=== PATIENT | female | born 1985 | race Caucasian/White ===

== ENCOUNTER 2023-01-05 21:00 | Outpatient (REF) | payer OTHER, SELFPAY ==
[2023-01-12 13:07] LABS: Age Gdln ACOG Testing Note (.); HPV Aptima Negative (Negative); IGP, Aptima HPV, rfx 16/18,45 Note (.)
== END 2023-01-05 21:01 | disposition home or self-care (01) ==
LOC: LAB 21:00
PROVIDERS: Visit Provider Obstetrics & Gynecology
DX: Z01.419 Encounter for gynecological examination (general) (routine) without abnormal findings (principal)
CPT/HCPCS: 87624; G0145

== ENCOUNTER 2023-02-14 09:24 | Outpatient (OUT) | payer OTHER, SELFPAY ==
[2023-02-14 10:33] LABS: HCG Quantitative 509 mIU/mL
== END 2023-02-14 09:25 | disposition home or self-care (01) ==
PROVIDERS: Visit Provider Obstetrics & Gynecology
DX: N92.6 Irregular menstruation, unspecified (principal)
CPT/HCPCS: 36415; 84702

== ENCOUNTER 2023-03-13 10:24 | Outpatient (OUT) | payer OTHER, SELFPAY ==
--- NOTE | 2023-03-13 10:27 | US_ITS ---
[address] [address] Patient Name: OSCAR MELO MRN: [id number] date: 1985 Sex: F Assigned Patient Location: US Current Patient Location: Accession/Order Number: [id number] Exam Date: 03/13/2023 10:28 Report Date: 03/14/2023 17:41 At the request of: SUKHJINDER WIN Procedure: US OB transvaginal EXAMINATION: US OB transvaginal HISTORY: MISSED MENSES COMPARISON: No relevant comparison available. FINDINGS: Cuenca intrauterine gestation Heart rate: 165 beats minute Gestational sac: 3.53 cm, 8 weeks 5 days CRL: 1.55 cm, 8 weeks 0 days Yolk sac: 3.1 mm The uterus is normal, retroverted, retroflexed The ovaries are normal in appearance Cervix: Closed, 4.4 cm Clinical age: 9 weeks 0 days Clinical FUENTES: 10/16/2023 Ultrasound age: 8 weeks 0 days Ultrasound FUENTES: 10/23/2023 US/US OB transvaginal IMPRESSION: Viable cuenca intrauterine gestation measuring 9 weeks 0 days Electronically authenticated by: SISI HURD Date: 03/14/2023 17:41
== END 2023-03-13 10:25 | disposition home or self-care (01) ==
LOC: US 10:25
PROVIDERS: Visit Provider Obstetrics & Gynecology
DX: Z34.91 Encounter for supervision of normal pregnancy, unspecified, first trimester (principal); N92.6 Irregular menstruation, unspecified
CPT/HCPCS: 76817

== ENCOUNTER 2023-03-27 11:55 | Outpatient (OUT) | payer OTHER, SELFPAY ==
[2023-03-27 12:27] LABS: Basophils Percent Auto 0.3 % (0.2-2.0); Eosinophils Absolute Auto 0.1 10^3/uL (0.0-0.7); Eosinophils Percent Auto 0.7 % (0.9-7.0); Hematocrit 40.4 % (36.0-48.0); Hemoglobin 13.8 g/dL (12.0-16.0); Immature Granulocytes Abs Auto 0.04 10^3/uL (0.00-0.03); Immature Granulocytes Pct Auto 0.3 % (0.0-0.5); Lymphocytes Absolute Auto 1.6 10^3/uL (1.2-3.8); Lymphocytes Percent Auto 13.6 % (20.5-60.0); Mean Corpuscular HGB Conc 34.2 g/dL (29.9-35.2); Mean Corpuscular Hemoglobin 31.6 pg (26.7-34.0); Mean Corpuscular Volume 92.4 fL (81.0-99.0); Mean Platelet Volume 9.5 fL (9.5-13.5); Monocytes Absolute Auto 0.4 10^3/uL (0.3-0.8); Monocytes Percent Auto 3.6 % (1.7-12.0); Neutrophils Absolute Auto 9.7 10^3/uL (1.4-6.5); Neutrophils Percent Auto 81.5 % (43.0-75.0); Platelet Count 262 10^3/uL (150-450); Red Blood Count 4.37 10^6/uL (4.20-5.40); Red Cell Distribution Width 12.4 % (11.0-15.0)
[2023-03-27 12:43] LABS: BOX Test Sent Out Y
[2023-03-27 12:48] LABS: Estimated Average Glucose 105 mg/dL; Glycohemoglobin A1C 5.3 % (4.5-6.2)
[2023-03-27 13:37] LABS: Thyroid Stimulating Hormone 0.297 uIU/mL (0.358-3.740)
[2023-03-28 07:08] LABS: HBsAg Screen Negative (Negative); HCV Ab Non Reactive (Non Reactive); HIV Ab/p24 Ag Screen Non Reactive (Non Reactive)
== END 2023-03-27 11:56 | disposition home or self-care (01) ==
LOC: LAB 11:55
PROVIDERS: Visit Provider Obstetrics & Gynecology
DX: Z34.80 Encounter for supervision of other normal pregnancy, unspecified trimester (principal); N92.6 Irregular menstruation, unspecified
CPT/HCPCS: 36415; 83036; 84443; 85025; 86592; 86762; 86780; 86803; 86850; 86900; 86901; 87086; 87340; 87389

== ENCOUNTER 2023-04-24 08:31 | Outpatient (OUT) | payer OTHER, SELFPAY | END 2023-04-24 08:32 | disposition home or self-care (01) | LOC: LAB 08:32 | PROVIDERS: Visit Provider Obstetrics & Gynecology | DX: A53.0 Latent syphilis, unspecified as early or late (principal) | CPT/HCPCS: 36415; 86780 ==

== ENCOUNTER 2023-05-04 11:54 | Outpatient (OUT) | payer OTHER, SELFPAY ==
[2023-05-04 13:00] LABS: Thyroid Stimulating Hormone 0.816 uIU/mL (0.358-3.740)
== END 2023-05-04 11:55 | disposition home or self-care (01) ==
LOC: LAB 11:55
PROVIDERS: Visit Provider Obstetrics & Gynecology
DX: O99.280 Endocrine, nutritional and metabolic diseases complicating pregnancy, unspecified trimester (principal); E03.9 Hypothyroidism, unspecified
CPT/HCPCS: 36415; 84443

== ENCOUNTER 2023-05-15 09:52 | Outpatient (OUT) | payer OTHER, SELFPAY ==
[2023-05-17 01:11] LABS: AFP Value 50.3 ng/mL (.); Gestat. Age Based On Ultrasound (.); Insulin Dep Diabetes No (.); Maternal Age At EDD 39.2 yr (.); OSBR Risk 1 IN 5096 (.); Results Report (.)
== END 2023-05-15 09:53 | disposition home or self-care (01) ==
LOC: LAB 09:52
PROVIDERS: Visit Provider Obstetrics & Gynecology
DX: Z34.92 Encounter for supervision of normal pregnancy, unspecified, second trimester (principal)
CPT/HCPCS: 36415; 82105

== ENCOUNTER 2023-07-27 09:17 | Outpatient (OUT) | payer OTHER, SELFPAY ==
--- OUTSIDE RECORDS SUMMARY | 2023-07-27 09:20 | XMS_ITS | CCD ---
Author Name Unknown Address [address] [place] [address] Organization [facility] Care Team Providers Care Medical Practice Assistant Name Role Phone Drew JAMES, Melani Unavailable Yariel GARCIA, Chey Unavailable Yariel GARCIA, Claritza Andrade Unavailable [phone] Melani Russell MD Unavailable Claritza Tamayo RN Unavailable [phone] ALEX URBANO Referring Unavailable KAYCE RICARDO Attending Unavailable KAYCE RICARDO Admitting Unavailable RUSSELL, MELANI Attending Unavailable RUSSELL, MELANI Referring Unavailable RUSSELL, MELANI Referring Unavailable RUSSELL, MELANI Referring Unavailable RUSSELL, MELANI Referring Unavailable Shaun Valentine Unavailable DR SHAUN VALENTINE Admitting Unavailable SERGE, DR KINCAID Attending Unavailable SERGE, DR KINCAID Primary Care Unavailable DR SHAUN VALENTINE Consulting Unavailable Melani Russell MD Unavailable Suzanna Chaidez RN Unavailable Unavailable Primary Care Provider UnavailSUKHJINDER Van Attending Unavailable ADRIANNE MERCHANT Attending Unavailable Allergies Allergy Classification Reported Allergen(s) Allergy Type Date of Onset Reaction(s) Facility (7 sources) Codeine; Translations: [CODEINE] Drug Allergy 1 GI Upset [facility] (7 sources) Adhesive Tape-Silicones; Translations: [ADHESIVE TAPE-SILICONES] Drug Allergy 1 Other: See Comments [facility] (2 sources) Adhesive agent Drug allergy Unknown [facility] Other (2 sources) Codeine Drug Allergy nausea [facility] Other (1 source) Codeine Drug Allergy 1 [facility] (1 source) Desonide Drug Allergy 1 [facility] Medications Current Medications Medication Drug Class(es) Dates Sig (Normalized) Sig (Original) 0.5 ML tirzepatide 10 MG/ML Auto-Injector [Mounjaro] (1 source) Mounjaro 5 MG/0. 5ML as directed Subcutaneous Active 0.5 ML tirzepatide 5 MG/ML Auto-Injector [Mounjaro] (1 source) Mounjaro 2.5 MG/0.5ML as directed Subcutaneous donna for 28 days Active iv contrast (will be provided with radiology test) (1 source) Start: 04-29-2022 End: 04-30-2022 iv contrast (will be provided with radiology test) Indications: History of tumor MRI ABD/PEL Inject, intravenously, once for 1 dose. No IV access, insert saline lock prior to the beginning of sedation, infusion, injection of imaging exam. Discontinue saline lock post exam. If Pt. has a central line or IVAD, may access for administration according to line specific nursing protocol. Once exam is complete flush line and de-access according to line specific nursing protocol in the MR contrast administration guidelines link. 1 Each 0 04/29/2022 04/30/2022 Active Comment on above: MRI ABD/PEL Inject, intravenously, once for 1 dose. No IV access, insert saline lock prior to the beginning of sedation, infusion, injection of imaging exam. Discontinue saline lock post exam. If Pt. has a central line or IVAD, may access for administration according to line specific nursing protocol. Once exam is complete flush line and de-access according to line specific nursing protocol in the MR contrast administration guidelines link. Completed/Discontinued Medications Medication Drug Class(es) Dates Sig (Normalized) Sig (Original) amino acids-whey prot conc,iso (WHEY PROTEIN) 20 gram-140 kcal/39 gram powd (5 sources) amino acids-whey prot conc,iso (WHEY PROTEIN) 20 gram-140 kcal/39 gram powd Take by mouth. 0 Active Comment on above: Take by mouth. Collagenase powd (5 sources) Collagenase powd OTC NUTRITIONAL SUPPLEMENT (5 sources) OTC NUTRITIONAL SUPPLEMENT (2 sources) Not-Taking 25/iron fum/folic/dha (-1 ORAL) (6 sources) 25/iron fum/folic/dha (-1 ORAL) Take by mouth. 0 Active Comment on above: Take by mouth. sulindac 150 mg oral tablet (5 sources) Nonsteroidal Anti-inflammatory Drug Start: 05-17-2021 take 1 tablet by mouth twice daily sulindac (CLINORIL) 150 mg tablet Indications: Desmoid Take 1 tablet by mouth twice daily. 60 tablet 11 05/17/2021 Active Comment on above: Take 1 tablet by jose twice daily. Problems Active Problems Problem Classification Problem Date Documented Da te Episodic/Chronic Allergic reactions (2 sources) Atopic dermatitis; Translations: [Atopic dermatitis, unspecified] Chronic Biliary tract disease (2 sources) Cholesterolosis of gallbladder; Translations: [Cholesterolosis of gallbladder] Episodic Malaise and fatigue (2 sources) Fatigue; Translations: [Other fatigue] Episodic Other gastrointestinal disorders (1 source) Finding of abdominopelvic segment of trunk; Translations: [Intra-abdominal and pelvic swelling, mass and lump, unspecified site] Episodic Other gastrointestinal disorders (1 source) Abdominal mass; Translations: [Intra-abdominal and pelvic swelling, mass and lump, unspecified site] Episodic Other gastrointestinal disorders (3 sources) Intra-abdominal and pelvic swelling, mass and lump, unspecified site; Translations: [Abdominal mass, unspecified abdominal location] Onset: 05-06-2021 Episodic Other nutritional; endocrine; and metabolic disorders (5 sources) Obese class I; Translations: [Obesity, unspecified] Onset: 04-30-2021 04-30-2021 Chronic Other skin disorders (1 source) Nonscarring hair loss, unspecified Episodic Residual codes; unclassified (1 source) H/O: neoplasm; Translations: [Personal history of other specified conditions] Episodic Past or Other Problems Problem Classification Problem Date Documented Da te Episodic/Chronic Neoplasms of unspecified nature or uncertain behavior (7 sources) Abdominal fibromatosis; 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 of uncertain behavior of connective and other soft tissue] Onset: 04-26-2021 04-30-2021 Episodic Other circulatory disease (1 source) Other specified symptoms and signs involving the circulatory and respiratory systems; Translations: [Suspected pulmonary embolism] Onset: 04-30-2021 Episodic Residual codes; unclassified (1 source) Family history of carrier of genetic disease; Translations: [Family history of BRCA1 gene positive] Onset: 05-07-2021 Episodic Results Test Name Value Interpretation Reference Range Facility CBC AUTO DIFFon 10-27-2022 BASO # 0.1 103/ul Normal 0.0-0.1 [facility] Comment on above: Performed By: #### C BC #### [facility] [address] [place] [address] Dr. Rancho Cobos Basophils/100 WBC (Bld) 0.9 % Normal 0.2-2.0 [facility] Comment on above: Performed By: #### C BC #### [facility] [address] [place] [address] Dr. Rancho Cobos EO # 0.1 103/ul Normal 0.0-0.7 [facility] Comment on above: Performed By: #### C BC #### [facility] [address] [place] [address] Dr. Rancho Cobos Eosinophils/100 WBC (Bld) 1.4 % Normal 0.9-7.0 [facility] Comment on above: Performed By: #### C BC #### [facility] [address] [place] [address] Dr. Rancho Cobos Erythrocyte distribution width (RBC) [Ratio] 11.8 % Normal 11.0-15.0 [facility] Comment on above: Performed By: #### C BC #### [facility] [address] [place] [address] Dr. Rancho Cobos Hematocrit (Bld) [Volume fraction] 38.5 % Normal 36.0-48.0 [facility] Comment on above: Performed By: #### C BC #### [facility] [address] [place] [address] Dr. Rancho Cobos Hemoglobin (Bld) [Mass/Vol] 13.3 g/dL Normal 12.0-16.0 [facility] Comment on above: Performed By: #### C BC #### [facility] [address] [place] [address] Dr. Rancho Cobos IG # 0.01 10e3/ul Normal 0.00-0.03 [facility] Comment on above: Performed By: #### C BC #### [facility] [address] [place] [address] Dr. Rancho Cobos IG % 0.2 % Normal 0.0-0.5 [facility] Comment on above: Performed By: #### C BC #### [facility] [address] [place] [address] Dr. Rancho Cobos LYMPH # 1.7 103/ul Normal 1.2-3.8 [facility] Comment on above: Performed By: #### C BC #### [facility] [address] [place] [address] Dr. Rancho Cobos Lymphocytes/100 WBC (Bld) 31.2 % Normal 20.5-60.0 [facility] Comment on above: Performed By: #### C BC #### [facility] [address] [place] [address] Dr. Rancho Cobos MANUAL DIFF REQ NO Normal [facility] Comment on above: Performed By: #### C BC #### [facility] [address] [place] [address] Dr. Rancho Cobos MCH (RBC) [Entitic mass] 31.9 pg Normal 26.7-34.0 [facility] Comment on above: Performed By: #### C BC #### [facility] [address] [place] [address] Dr. Rancho Cobos MCHC (RBC) [Mass/Vol] 34.5 g/dL Normal 29.9-35.2 [facility] Comment on above: Performed By: #### C BC #### [facility] [address] [place] [address] Dr. Rancho Cobos MCV (RBC) [Entitic vol] 92.3 fL Normal 81.0-99.0 [facility] Comment on above: Performed By: #### C BC #### [facility] [address] [place] [address] Dr. Rancho Cobos MONO # 0.3 103/ul Normal 0.3-0.8 [facility] Comment on above: Performed By: #### C BC #### [facility] [address] [address] [address] Rancho Cobos Monocytes/100 WBC (Bld) 5.2 % Normal 1.7-12.0 [facility] Comment on above: Performed By: #### C BC #### [facility] [address] [address] [address] Rancho Cobos NEUT # 3.4 103/ul Normal 1.4-6.5 [facility] Comment on above: Performed By: #### C BC #### [facility] [address] [address] [address] Rancho Cobos Neutrophils/100 WBC (Bld) 61.1 % Normal 43.0-75.0 [facility] Comment on above: Performed By: #### C BC #### [facility] [address] [address] [address] Rancho Cobos Platelet mean volume (Bld) [Entitic vol] 9.4 fL Critically low 9.5-13.5 [facility] Comment on above: Performed By: #### C BC #### [facility] [address] [address] [address] Rancho Cobos PLT 261 103/ul Normal 150-450 [facility] Comment on above: Performed By: #### C BC #### [facility] [address] [address] [address] Rancho Cobos RBC 4.17 106/ul Critically low 4.20-5.40 [facility] Comment on above: Performed By: #### C BC #### [facility] [address] [address] [address] Rancho Cobos WBC 5.6 103/ul Normal 4.0-11.0 [facility] Comment on above: Performed By: #### C BC #### [facility] [address] [address] [address] Rancho Cobos LIPID PROFILEon 10-27-2022 CHOL-HDL RATIO NORM SEE BELOW Normal [facility] Comment on above: Result Comment: 3.3 - 4.4 LOW RISK 4.4 - 7.1 AVERAGE RISK 7.1 - 11.0 MODERATE RISK >11.0 HIGH RISK Performed By: #### C MP, LIPID, TSH #### [facility] [address] [address] [address] Rancho Cobos Cholesterol [Mass/Vol] 162 mg/dL Normal <=200 [facility] Comment on above: Performed By: #### C MP, LIPID, TSH #### [facility] [address] [address] [address] Rancho Cobos Cholesterol in HDL [Mass/Vol] 56 mg/dL Normal 40-60 [facility] Comment on above: Performed By: #### C MP, LIPID, TSH #### [facility] [address] [address] [address] Rancho Cobos Cholesterol in LDL [Mass/Vol] 97.0 mg/dL Normal [facility] Comment on above: Performed By: #### C MP, LIPID, TSH #### [facility] [address] [address] [address] Rancho Cobos Cholesterol.total/ Cholesterol in HDL [Mass ratio] 2.9 {ratio} Normal [facility] Comment on above: Performed By: #### C MP, LIPID, TSH #### [facility] [address] [address] [address] Rancho Cobos HDL NORMAL > or = 60 mg/dl - LO W CARDIOVASCULAR RISK <40 mg/dl - HIGH CARDIOVASCULAR RISK Normal [facility] Comment on above: Performed By: #### C MP, LIPID, TSH #### [facility] [address] [place] [address] Dr. Rancho Cobos LDL CALC NORMAL SEE BELOW Normal [facility] Comment on above: Result Comment: <100 mg/dl OPTIMAL 100 - 129 mg/dl NEAR OR ABOVE OPTIMAL 130 - 159 mg/dl BORDERLINE HIGH 160 - 189 mg/dl HIGH >190 mg/dl VERY HIGH Performed By: #### C MP, LIPID, TSH #### [facility] [address] [address] [address] Rancho Cobos Triglyceride [Mass/Vol] 45 mg/dL Normal <=150 [facility] Comment on above: Performed By: #### C MP, LIPID, TSH #### [facility] [address] [address] [address] Rancho Cobos VLDL CALC 9.0 mg/dL Normal [facility] Comment on above: Performed By: #### C MP, LIPID, TSH #### [facility] [address] [address] [address] Rancho Cobos PROF 14(COMP METB)on 023 Albumin [Mass/Vol] 4.0 g/dL Normal 3.4-5.0 [facility] Comment on above: Performed By: #### C MP, LIPID, TSH #### [facility] [address] [place] [address] Dr. Rancho Cobos Albumin/Globulin [Mass ratio] 1.2 {ratio} Normal [facility] Comment on above: Performed By: #### C MP, LIPID, TSH #### [facility] [address] [place] [address] Dr. Rancho Cobos ALP [Catalytic activity/Vol] 34 U/L Critically low 46-116 [facility] Comment on above: Performed By: #### C MP, LIPID, TSH #### [facility] [address] [place] [address] Dr. Rancho Cobos ALT [Catalytic activity/Vol] 24 U/L Normal 14-59 [facility] Comment on above: Performed By: #### C MP, LIPID, TSH #### [facility] [address] [place] [address] Dr. Rancho Cobos Anion gap [Moles/Vol] 12.1 mmol/L Normal [facility] Comment on above: Performed By: #### C MP, LIPID, TSH #### [facility] [address] [place] [address] Dr. Rancho Cobos AST [Catalytic activity/Vol] 17 U/L Normal 15-37 [facility] Comment on above: Performed By: #### C MP, LIPID, TSH #### [facility] [address] [place] [address] Dr. Rancho Cobos Bilirubin [Mass/Vol] 0.5 mg/dL Normal 0.2-1.0 [facility] Comment on above: Performed By: #### C MP, LIPID, TSH #### [facility] [address] [place] [address] Dr. Rancho Cobos Calcium [Mass/Vol] 9.2 mg/dL Normal 8.5-10.1 [facility] Comment on above: Performed By: #### C MP, LIPID, TSH #### [facility] [address] [place] [address] Dr. Rancho Cobos Chloride [Moles/Vol] 107 mmol/L Normal 98-107 [facility] Comment on above: Performed By: #### C MP, LIPID, TSH #### [facility] [address] [place] [address] Dr. Rancho Cobos CO2 [Moles/Vol] 28.5 mmol/L Normal 21.0-32.0 [facility] Comment on above: Performed By: #### C MP, LIPID, TSH #### [facility] [address] [place] [address] Dr. Rancho Cobos Creatinine [Mass/Vol] 0.72 mg/dL Normal 0.55-1.02 [facility] Comment on above: Performed By: #### C MP, LIPID, TSH #### [facility] [address] [place] [address] Dr. Rancho Cobos EGFR-AF FINNISH >60 Normal >=60 [facility] Comment on above: Performed By: #### C MP, LIPID, TSH #### [facility] [address] [place] [address] Dr. Rancho Cobos EGFR-NON AF FINNISH >60 Normal >=60 [facility] Comment on above: Performed By: #### C MP, LIPID, TSH #### [facility] [address] [place] [address] Dr. Rancho Cobos Globulin (S) [Mass/Vol] 3.4 g/dL Normal [facility] Comment on above: Performed By: #### C MP, LIPID, TSH #### [facility] [address] [place] [address] Dr. Rancho Cobos Glucose [Mass/Vol] 92 mg/dL Normal 74-106 [facility] Comment on above: Performed By: #### C MP, LIPID, TSH #### [facility] [address] [place] [address] Dr. Rancho Cobos Potassium [Moles/Vol] 4.6 mmol/L Normal 3.5-5.1 [facility] Comment on above: Performed By: #### C MP, LIPID, TSH #### [facility] [address] [address] [address] Rancho Cobos Protein [Mass/Vol] 7.4 g/dL Normal 6.4-8.2 [facility] Comment on above: Performed By: #### C MP, LIPID, TSH #### [facility] [address] [place] [address] Dr. Rancho Cobos Sodium [Moles/Vol] 143 mmol/L Normal 136-145 [facility] Comment on above: Performed By: #### C MP, LIPID, TSH #### [facility] [address] [place] [address] Dr. Rancho Cobos Urea nitrogen [Mass/Vol] 18.0 mg/dL Normal 7.0-18.0 [facility] Comment on above: Performed By: #### C MP, LIPID, TSH #### [facility] [address] [place] [address] Dr. Rancho Cobos Urea nitrogen/Creatinin e [Mass ratio] 25.0 mg/mg Normal [facility] Comment on above: Performed By: #### C MP, LIPID, TSH #### [facility] [address] [place] [address] Dr. Rancho Cobos TSHon 10-27-2022 TSH 1.005 uIU/mL Normal 0.358-3.740 [facility] Comment on above: Performed By: #### C MP, LIPID, TSH #### [facility] [address] [place] [address] Dr. Rancho Cobos MRI ABDOMEN WO/W IVCONon MRI ABDOMEN WO/W IVCON * * *Final Report* * * DATE OF EXAM: Apr 21 2022 6:39PM Q 0689 - MRI ABDOMEN WO/W IVCON / PROCEDURE REASON: multiple diagnoses * * * * Physician Interpretation * * * * MRI ABDOMEN AND PELVIS WITHOUT AND WITH IV CONTRAST CLINICAL HISTORY: Right abdominal wall desmoid ablation (04/2021) TECHNIQUE: Magnet: 3.0T scanner. Multiplanar MRI with multiple sequences before and after contrast. Contrast: IV: 16 ml of Dotarem COMPARISON: MRA abdomen/pelvis 09/20/2021; CT abdomen/pelvis 04/28/2021; MRI abdomen 02/28/2021 RESULT: Liver: Normal morphology. No steatosis. No suspicious mass. Few stable subcentimeter cysts. Biliary: No bile duct dilation. Normal gallbladder. Spleen: No mass. No splenomegaly. Pancreas: No mass or duct dilation. Adrenals: No mass. Kidneys: No solid or cystic mass. No hydronephrosis. GI: No dilated bowel or wall thickening. Normal appendix. Lymph nodes: No lymphadenopathy. Mesentery/Peritoneum/Re troperitoneum: No ascites or mass. Vasculature: * Abdominal aorta: No aneurysm. * Celiac and SMA: Patent without stenosis. * Portal venous system (SMV, splenic vein, portal vein and branches): Patent. * Hepatic veins: Patent. Pelvis: No mass or ascites. Unremarkable urinary bladder. Functional ovarian cysts. Bones/Soft Tissues: * Procedures changes from RIGHT rectus abdominis muscle ablation with decreased size of well-defined, rim-enhancing 3.8 x 2.6 cm ablation zone (32:85), previously 4.3 x 2.9 cm. This zone consistent fat, muscle and fluid. No restricted diffusion or nodular enhancement to suggest residual/recurrent neoplasm. * L4 vertebral body hemangioma. No suspicious marrow signal abnormality. Lower chest: Unremarkable. Kitchen Stewardess (localizer) images: No additional findings. IMPRESSION: Evolving changes of RIGHT rectus abdominis muscle ablation without local recurrence. No metastatic disease in abdomen or pelvis General Laborer: ANEL Transcribe Date/Time: Apr 22 2022 10:29A Dictated by : LIBRADO JOAQUIN DO This examination was interpreted and the report reviewed and electronically signed by: CANELO EDMONDSON MD on Apr 22 2022 12:49PM EST [id number] Normal [facility] MRI PELVIS WO/W IVCONon 10-0 MRI PELVIS WO/W IVCON * * *Final Report* * * DATE OF EXAM: Apr 21 2022 6:39PM QBM [id number] - MRI PELVIS WO/W IVCON / PROCEDURE REASON: multiple diagnoses * * * * Physician Interpretation * * * * MRI ABDOMEN AND PELVIS WITHOUT AND WITH IV CONTRAST CLINICAL HISTORY: Right abdominal wall desmoid ablation (04/2021) TECHNIQUE: Magnet: 3.0T scanner. Multiplanar MRI with multiple sequences before and after contrast. Contrast: IV: 16 ml of Dotarem COMPARISON: MRA abdomen/pelvis 09/20/2021; CT abdomen/pelvis 04/28/2021; MRI abdomen 02/28/2021 RESULT: Liver: Normal morphology. No steatosis. No suspicious mass. Few stable subcentimeter cysts. Biliary: No bile duct dilation. Normal gallbladder. Spleen: No mass. No splenomegaly. Pancreas: No mass or duct dilation. Adrenals: No mass. Kidneys: No solid or cystic mass. No hydronephrosis. GI: No dilated bowel or wall thickening. Normal appendix. Lymph nodes: No lymphadenopathy. Mesentery/Peritoneum/Re troperitoneum: No ascites or mass. Vasculature: * Abdominal aorta: No aneurysm. * Celiac and SMA: Patent without stenosis. * Portal venous system (SMV, splenic vein, portal vein and branches): Patent. * Hepatic veins: Patent. Pelvis: No mass or ascites. Unremarkable urinary bladder. Functional ovarian cysts. Bones/Soft Tissues: * Procedures changes from RIGHT rectus abdominis muscle ablation with decreased size of well-defined, rim-enhancing 3.8 x 2.6 cm ablation zone (32:85), previously 4.3 x 2.9 cm. This zone consistent fat, muscle and fluid. No restricted diffusion or nodular enhancement to suggest residual/recurrent neoplasm. * L4 vertebral body hemangioma. No suspicious marrow signal abnormality. Lower chest: Unremarkable. Kitchen Stewardess (localizer) images: No additional findings. IMPRESSION: Evolving changes of RIGHT rectus abdominis muscle ablation without local recurrence. No metastatic disease in abdomen or pelvis General Laborer: ANEL Transcribe Date/Time: Apr 22 2022 10:29A Dictated by : LIBRADO JOAQUIN, DO This examination was interpreted and the report reviewed and electronically signed by: CANELO EDMONDSON MD on Apr 22 2022 12:49PM EST [id number] [facility] OSCAR PINEDA ([id number]) 1985 F Date Time Provider Department 10/28/21 MELANI RUSSELL HEMCA3 During your visit today, we recorded the following information about you: Brittany Avendaño [facility] 10/28/2021 10:04 AM Signed Oscar Pineda is calling Melani Russell MD today regarding Care Coordination,calling with questions about with her condition. Patient has been identified by name and birthdate. Duration of symptoms: N/A Requesting response back: call on cell [phone] (home) [phone] (cell) Brittany Avendaño [facility] October 28, 2021 Brittany Banueloss [facility] 10/30/2021 3:25 PM Signed Patient calling stating she has not received a call back, Please call @ [phone] Melani Russell MD 11/19/2021 10:20 AM Signed This has been addressed through an [employer] message. Melain Russell MD, PhD Staff, Hematology and Medical Oncology Allergies As of Date: 10/28/2021 Noted Allergy Reaction CODEINE 02/01/2021 8 - GI Upset ADHESIVE TAPE-SILICONES 02/14/2021 14 - Other: See Comments Comments: Blisters Date Reviewed: 09/27/2021 Reviewed by: Aliya Jean Baptiste RN - Fully Assessed Reason for Visit: Care Coordination [7680] Prescriptions as of 11/19/2021 - sulindac (CLINORIL) 150 mg tablet Take 1 tablet by mouth twice daily. - Collagenase powd - amino acids-whey prot conc,iso (WHEY PROTEIN) 20 gram-140 kcal/39 gram powd Take by mouth. - OTC NUTRITIONAL SUPPLEMENT - 25/iron fum/folic/dha (-1 ORAL) Take by mouth. 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] 04/26/2021 04/30/2021 Desmoid tumor of abdominal wall determined by b*04/26/2021 Acute respiratory insufficiency [R06.89] 04/26/2021 04/30/2021 Acute post-operative pain [G89.18] 04/26/2021 04/30/2021 Air embolus (HCC) [T79.0XXA] 04/27/2021 04/30/2021 Obesity, Class I, BMI 30-34.9 [E66.9] 04/30/2021 Encounter Status:Closed by BRITTANY LIAO on 11/01/21 [facility] CNOVSPon 09-27-2021 CNOVSP Visit (SP) Office (HEMCA4) RAÚLOSCAR Navarro ([id number]) 1985 F Date Time Provider Department 09/27/21 9:00 AM MELANI RUSSELL During your visit today, we recorded the following information about you: Pulse Respiration Blood pressure Weight 65/minute 20/minute 149/67 77.6 kg Melani Russell MD 10/07/2021 12:24 PM Signed [facility] [place] ESTABLISHED PATIENT VISIT PATIENT NAME: Oscar Pineda : 1985 ATTENDING PHYSICIAN: Melani Russell MD DATE OF SERVICE: September 27, 2021 HISTORY OF PRESENT ILLNESS: Oscar Pineda is a 36 year old female with recently diagnosed intraabdominal desmoid tumor. Patient originally noticed abdominal mass in 11/07, MRI done 02/28 showed evidence of 5.6 cm intramuscular mass suggestive of a desmoid tumor. Biopsy on 03/12 consistent with desmoid tumor. Common Hereditary Cancers Panel from 05/09 negative, no history of FAP. Patient first seen by Dr. Russell in clinic on 04/02/21. Patient's case was discussed at the multidisciplinary sarcoma tumor board with a recommendation for consult for consideration of ablation and subsequent sulindac to minimize regrowth of tumor. INTERVAL HISTORY: Patient underwent cryoablation of desmoid tumor on 04/26/21 complicated by air embolism to IVC filter and hepatic veins with trace air in right heart. Pt was managed conservatively with resolution and extubated 04/29. Sulindac started on 05/17/21. MRI A/P on 09/20/21 showed no internal enhancement to suggest residual/viable tumor. Patient reporting 20 pound weight gain since beginning Sulindac this past April. Patient also reports occasional burning sensation at site of cryoablation. Patient also endorses occasional constipation. Patient otherwise denies nausea/vomiting, diarrhea, abdominal pain. REVIEW OF SYSTEMS: Complete 10 system review of systems performed and negative except as stated in the interval history. MEDICATIONS: Current Outpatient Medications Medication Sig - sulindac (CLINORIL) 150 mg tablet Take 1 tablet by mouth twice daily. - Collagenase powd - amino acids-whey prot conc,iso (WHEY PROTEIN) 20 gram-140 kcal/39 gram powd Take by mouth. - OTC NUTRITIONAL SUPPLEMENT - 25/iron fum/folic/dha (-1 ORAL) Take by mouth. No current facility-administered medications for this visit. PHYSICAL EXAMINATION: BP 149/67 Pulse 65 Resp 20 Wt 77.6 kg (171 lb) LMP 04/18/2021 SpO2 100% BMI 30.29 kg/m? Body surface area is 1.86 meters squared. ECOG/Karnofsky Performance Score: 0/100% General: In no acute distress, comfortable HEENT: Normocephalic, EOMI, conjunctiva clear, mucous membranes moist CV: Regular rate and rhythm, no m/r/g Lungs: Non-labored respirations Extremities: No lower extremity edema Skin: No rashes or lesions Neuro: No gross or focal motor deficits, sensation intact GI: 2cm, non-mobile nodule in RLQ LABS: Reviewed IMAGING: MRI Abdomen/Pelvis 09/20/21: Interval ablation of soft tissue mass in the RIGHT rectus abdominis muscle. ?There is rim enhancement around the ablation zone, which measures 4.9 x 2.6 cm (24; 18). ?There is no internal enhancement to suggest residual/viable tumor. 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 - Decision made to discontinue sulindac at this time in light of side effects - Return to clinicn in 6 months for repeat scans Patient seen and discussed with Sarcoma Oncology staff, Dr. Melani Pérez MD Internal Medicine Resident, PGY-1 [facility] 09/27/2021 SOLID TUMOR STAFF: ATTENDING PHYSICIAN NOTE OF PERSONAL INVOLVEMENT IN CARE I have reviewed the note obtained and documented by Dr. Pérez and I personally participated in the garcia components. The following comments revise or confirm relevant garcia components of the note. 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 She had started sulindac to minimize risk for recurrence, however she is having some weight gain due to fluid retention that she is attributing to the sulindac. She is discontinuing the sulindac and this can be readdressed if there is growth of tumor. I anticipate her returning with scans prior to her appointment in 6 months. Melani Russell MD, PhD Staff, Hematology and Medical Oncology Aliya Jean Baptiste RN 09/27/2021 9:03 AM Signed Additional intake questions: Has the patient had fever, nausea, vomiting, diarrhea, constipation, fatigue for > 1 week? Yes, constipation Does the patient have a decreased appetite? No Does patient want to see a Cask Maker? No (yes to any of (more content not included)... Normal [facility] MRI ABDOMEN WO/W IVCONon MRI ABDOMEN WO/W IVCON * * *Final Report* * * DATE OF EXAM: Sep 20 2021 4:30PM QBM [id number] - MRI ABDOMEN WO/W IVCON / PROCEDURE REASON: multiple diagnoses * * * * Physician Interpretation * * * * MRI OF THE ABDOMEN WITHOUT AND WITH CONTRAST: CLINICAL HISTORY: 36-year-old female patient with history of?desmoid of rectus abdominus muscle on the right side. This was treated with?percutaneous ablation.? COMPARISON: 04/28/2021 TECHNIQUE: The study was performed on a Siemens 3 T Skyra scanner using the torso phased array coil. HASTE images were obtained in the axial, sagittal and coronal planes. High resolution 3-D T2 weighted images were then obtained. Next, axial STIR, diffusion weighted and T1 weighted in- and [id number]-[id number]-[id number] images were obtained. Then, using a 3-D GRE T1 weighted sequence, dynamic images were obtained before, during and after the administration of intravenous contrast. 3-D images were post-processed on a dedicated off-line workstation and were reviewed by the interpreting physician. Contrast: IV: 16 ml of Dotarem Oral Contrast: None RESULT: Liver: A few stable subcentimeter liver cysts. Biliary: No bile duct dilation. Gallbladder is unremarkable. Pancreas: No mass or duct dilation. Spleen: No mass. No splenomegaly. Lymph nodes: No abdominal or pelvic lymphadenopathy. Mesentery/Peritoneum: No ascites or mass. Vasculature: The celiac axis and SMA are patent. The portal vein and branches, splenic vein, SMV, and hepatic veins are patent. No aortic or iliac artery aneurysm. Adrenals: No mass. Kidneys: No mass or hydronephrosis. GI tract: No dilation or wall thickening. Pelvis: Uterus and ovaries: No masses. Bilateral physiologic ovarian cysts. Urinary bladder: Unremarkable. Bones/Soft Tissues: Interval ablation of soft tissue mass in the RIGHT rectus abdominis muscle. There is rim enhancement around the ablation zone, which measures 4.9 x 2.6 cm (24; 18). There is no internal enhancement to suggest residual/viable tumor. Hemangioma of L4 vertebral body. Lung Bases: Unremarkable. IMPRESSION: Interval ablation of RIGHT rectus abdominis muscle mass, without evidence for residual/recurrent disease. General Laborer: PSCB Transcribe Date/Time: Sep 20 2021 4:49P Dictated by : CHRIS MILIAN MD This examination was interpreted and the report reviewed and electronically signed by: CHRIS MILIAN MD on Sep 20 2021 4:58PM EST [id number] Normal [facility] MRI PELVIS WO/W IVCONon 03-0 MRI PELVIS WO/W IVCON * * *Final Report* * * DATE OF EXAM: Sep 20 2021 4:30PM [facility] 0742 - MRI PELVIS WO/W IVCON / PROCEDURE REASON: multiple diagnoses * * * * Physician Interpretation * * * * MRI OF THE ABDOMEN WITHOUT AND WITH CONTRAST: CLINICAL HISTORY: 36-year-old female patient with history of?desmoid of rectus abdominus muscle on the right side. This was treated with?percutaneous ablation.? COMPARISON: 04/28/2021 TECHNIQUE: The study was performed on a Siemens 3 T Skyra scanner using the torso phased array coil. HASTE images were obtained in the axial, sagittal and coronal planes. High resolution 3-D T2 weighted images were then obtained. Next, axial STIR, diffusion weighted and T1 weighted in- and [id number]-yu-yyahp images were obtained. Then, using a 3-D GRE T1 weighted sequence, dynamic images were obtained before, during and after the administration of intravenous contrast. 3-D images were post-processed on a dedicated off-line workstation and were reviewed by the interpreting physician. Contrast: IV: 16 ml of Dotarem Oral Contrast: None RESULT: Liver: A few stable subcentimeter liver cysts. Biliary: No bile duct dilation. Gallbladder is unremarkable. Pancreas: No mass or duct dilation. Spleen: No mass. No splenomegaly. Lymph nodes: No abdominal or pelvic lymphadenopathy. Mesentery/Peritoneum: No ascites or mass. Vasculature: The celiac axis and SMA are patent. The portal vein and branches, splenic vein, SMV, and hepatic veins are patent. No aortic or iliac artery aneurysm. Adrenals: No mass. Kidneys: No mass or hydronephrosis. GI tract: No dilation or wall thickening. Pelvis: Uterus and ovaries: No masses. Bilateral physiologic ovarian cysts. Urinary bladder: Unremarkable. Bones/Soft Tissues: Interval ablation of soft tissue mass in the RIGHT rectus abdominis muscle. There is rim enhancement around the ablation zone, which measures 4.9 x 2.6 cm (24; 18). There is no internal enhancement to suggest residual/viable tumor. Hemangioma of L4 vertebral body. Lung Bases: Unremarkable. IMPRESSION: Interval ablation of RIGHT rectus abdominis muscle mass, without evidence for residual/recurrent disease. General Laborer: ANEL Transcribe Date/Time: Sep 20 2021 4:49P Dictated by : CHRIS MILIAN MD This examination was interpreted and the report reviewed and electronically signed by: CHRIS MILIAN MD on Sep 20 2021 4:58PM EST [id number] Normal [facility] CNPAmi 08-09-2021 CNPN Telephone (HEMCA3) OSCAR PINEDA ([id number]) 1985 F Date Time Provider Department 08/09/21 MELANI RUSSELL HEMCA3 During your visit today, we recorded the following information about you: Marva Burciaga Adm 08/09/2021 11:32 AM Signed Oscar Pineda is calling Melani Russell MD today regarding Care Coordination (appointment question). Patient wants to know if Dr. Russell would prefer to see her after her 08/23 MRI. She is scheduled for an OV on 08/16. Patient has been identified by name and birthdate. Duration of symptoms: N/A Requesting response back: call on cell [phone] (home) [phone] (cell) Marva Burciaga Adm August 09, 2021 Chey Tamayo RN 08/09/2021 4:42 PM Signed Returned call to patient and informed her that moving her visit with Dr. Russell after the MRI would be best to establish a plan of care. Patient was appreciative of return call and information. Chey Tamayo RN Cabin Agent August 09, 2021 Allergies As of Date: 08/09/2021 Noted Allergy Reaction CODEINE 02/01/2021 8 - GI Upset ADHESIVE TAPE-SILICONES 02/14/2021 14 - Other: See Comments Comments: Blisters Date Reviewed: 04/30/2021 Reviewed by: Magda Rose RN - Fully Assessed Reason for Visit: Care Coordination [5122] Cmt: appointment question Prescriptions as of 08/09/2021 - sulindac (CLINORIL) 150 mg tablet Take 1 tablet by mouth twice daily. - Collagenase powd - amino acids-whey prot conc,iso (WHEY PROTEIN) 20 gram-140 kcal/39 gram powd Take by mouth. - OTC NUTRITIONAL SUPPLEMENT - 25/iron fum/folic/dha (-1 ORAL) Take by mouth. 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] 04/26/2021 04/30/2021 Desmoid tumor of abdominal wall determined by b*04/26/2021 Acute respiratory insufficiency [R06.89] 04/26/2021 04/30/2021 Acute post-operative pain [G89.18] 04/26/2021 04/30/2021 Air embolus (HCC) [T79.0XXA] 04/27/2021 04/30/2021 Obesity, Class I, BMI 30-34.9 [E66.9] 04/30/2021 Encounter Status:Closed by CLARITZA TAMAYO on 08/09/21 [facility] Nishant 05-22-2021 CNPN Telephone (GMINE) OSCAR PINEDA ([id number]) 1985 F Date Time Provider Department 05/22/21 MELIDA QUINTERO During your visit today, we recorded the following information about you: LANETTE De Leon 05/22/2021 2:32 PM Signed Patient name and was confirmed at initiation of discussion. Oscar Pineda's Common Hereditary Cancers Panel through [employer] was negative for a pathogenic variant. Please see attached letter for further discussion. LANETTE De Leon Licensed, Certified Genetic Counselor Allergies As of Date: 05/22/2021 Noted Allergy Reaction CODEINE 02/01/2021 8 - GI Upset ADHESIVE TAPE-SILICONES 02/14/2021 14 - Other: See Comments Comments: Blisters Date Reviewed: 04/30/2021 Reviewed by: Magda Rose RN - Fully Assessed Reason for Visit: Results [95] Cmt: Genetic Test Results - Negative Prescriptions as of 05/22/2021 - sulindac (CLINORIL) 150 mg tablet Take 1 tablet by mouth twice daily. - Collagenase powd - amino acids-whey prot conc,iso (WHEY PROTEIN) 20 gram-140 kcal/39 gram powd Take by mouth. - OTC NUTRITIONAL SUPPLEMENT - 25/iron fum/folic/dha (-1 ORAL) Take by mouth. 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] 04/26/2021 04/30/2021 Desmoid tumor of abdominal wall determined by b*04/26/2021 Acute respiratory insufficiency [R06.89] 04/26/2021 04/30/2021 Acute post-operative pain [G89.18] 04/26/2021 04/30/2021 Air embolus (HCC) [T79.0XXA] 04/27/2021 04/30/2021 Obesity, Class I, BMI 30-34.9 [E66.9] 04/30/2021 Letter Text Encounter Status:Closed by MELIDA QUINTERO on 05/22/21 [facility] Telephone (HEMCA3) OSCAR PINEDA ([id number]) 1985 F Date Time Provider Department 05/15/21 [facility] your visit today, we recorded the following information about you: Marva Burciaga Adm 05/15/2021 4:25 PM Signed Oscar Pineda is calling Melani Russell MD today regarding Care Coordination. Patient said that they had discussed her starting a new medication. Patient called to follow up that. Patient has been identified by name and birthdate. Duration of symptoms: N/A Requesting response back: call on cell [phone] (home) [phone] (cell) Marva Burciaga Adm May 15, 2021 Melani Russell MD 05/17/2021 4:47 PM Signed I have returned her call and reviewed her hospitalization following her ablation. Script for sulindac sent to her local pharmacy and a smart set was sent for a follow-up MRI of the abdomen and an appointment in 3 months. Melani Russell MD, PhD Staff, Hematology and Medical Oncology Allergies As of Date: 05/15/2021 Noted Allergy Reaction CODEINE 02/01/2021 8 - GI Upset ADHESIVE TAPE-SILICONES 02/14/2021 14 - Other: See Comments Comments: Blisters Date Reviewed: 04/30/2021 Reviewed by: Magda Rose RN - Fully Assessed Reason for Visit: Care Coordination [3491] Prescriptions as of 05/17/2021 - Collagenase powd - amino acids-whey prot conc,iso (WHEY PROTEIN) 20 gram-140 kcal/39 gram powd Take by mouth. - OTC NUTRITIONAL SUPPLEMENT - 25/iron fum/folic/dha (-1 ORAL) Take by mouth. 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] 04/26/2021 04/30/2021 Desmoid tumor of abdominal wall determined by b*04/26/2021 Acute respiratory insufficiency [R06.89] 04/26/2021 04/30/2021 Acute post-operative pain [G89.18] 04/26/2021 04/30/2021 Air embolus (HCC) [T79.0XXA] 04/27/2021 04/30/2021 Obesity, Class I, BMI 30-34.9 [E66.9] 04/30/2021 Encounter Status:Closed by MELANI RUSSELL on 05/17/21 Normal [facility] Molecular Teston 2020 Test Common Hereditary Cancers Panel Normal [facility] Comment on above: Performed By: #### M OL13 ####[facility] [id number] [place] [address] Test Results View results in Scan zahraa Documents link when available. Normal [facility] Comment on above: Performed By: #### M OL13 ####[facility] [id number] [place] [address] Nishant 05-01-2021 CNPN Telephone (GMINE) OSCAR PINEDA ([id number]) 1985 F Date Time Provider Department 05/01/21 MELIDA QUINTERO During your visit today, we recorded the following information about you: Mindy Farley 05/01/2021 11:53 AM Signed I reached out to Oscar Pineda at the request of Melida Quintero to request they bring a copy of their family member's genetic test report to their appointment if available. Referring provider's note indicates family history of BRCA1. Oscar explained that her mother, who was adopted, had been contacted by her sister (patient's aunt) about carrying this gene and that she has a history of breast cancer twice, but otherwise does not have a copy of the report itself. Oscar also explained that the only other information she has regarding her family history is her paternal grandfather passing away from pancreatic cancer at 65, and great aunts/uncles having lung cancer (but were also smokers). I thanked Oscar for this information and reviewed that Melida can still otherwise proceed with the appointment and discussing testing based on the history, but that obtaining copy of report would be helpful if possible. Oscar will try to see if she can get in touch with her aunt and will forward report to if she can. Oscar has my direct contact number for any further questions or concerns. Midny Farley Genetic Counselor Softball Umpire Allergies As of Date: 05/01/2021 Noted Allergy Reaction CODEINE 02/01/2021 8 - GI Upset ADHESIVE TAPE-SILICONES 02/14/2021 14 - Other: See Comments Comments: Blisters Date Reviewed: 04/30/2021 Reviewed by: Magda Rose RN - Fully Assessed Reason for Visit: Appointment [186] Prescriptions as of 05/01/2021 - methylPREDNISolone (MEDROL) 2 mg tablet Take 1 tablet by mouth once daily for 2 doses. - amoxicillin-clavulanic acid (AUGMENTIN) 875-125 mg per tablet Take 1 tablet by mouth twice daily for 3 days. - Collagenase powd - amino acids-whey prot conc,iso (WHEY PROTEIN) 20 gram-140 kcal/39 gram powd Take by mouth. - OTC NUTRITIONAL SUPPLEMENT - 25/iron fum/folic/dha (-1 ORAL) Take by mouth. 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] 04/26/2021 04/30/2021 Desmoid tumor of abdominal wall determined by b*04/26/2021 Acute respiratory insufficiency [R06.89] 04/26/2021 04/30/2021 Acute post-operative pain [G89.18] 04/26/2021 04/30/2021 Air embolus (HCC) [T79.0XXA] 04/27/2021 04/30/2021 Obesity, Class I, BMI 30-34.9 [E66.9] 04/30/2021 Encounter Status:Closed by MINDY FARLEY on 05/01/21 Normal [facility] CBCon 04-30-2021 Absolute nRBC <0.01 Normal <0.01 [facility] Comment on above: Performed By: #### C BC ####[facility] [address] [place], [place] [phone] Erythrocyte distribution width (RBC) [Ratio] 12.0 % Normal 11.5-15.0 [facility] Comment on above: Performed By: #### C BC ####[facility] [address] [place], [place] [phone] Hematocrit (Bld) [Volume fraction] 33.8 % Low 36.0-46.0 [facility] Comment on above: Performed By: #### C BC ####[place] [address], [place] [phone] Hemoglobin (Bld) [Mass/Vol] 11.8 g/dL Normal 11.5-15.5 [facility] Comment on above: Performed By: #### C BC ####[place] [address], [place] [phone] MCH 31.5 pG Normal 26.0-34.0 [facility] Comment on above: Performed By: #### C BC ####[place] [address], [place] [phone] MCHC (RBC) [Mass/Vol] 34.9 g/dL Normal 30.5-36.0 [facility] Comment on above: Performed By: #### C BC ####[place] [address], [place] [phone] MCV (RBC) [Entitic vol] 90.1 fL Normal 80.0-100.0 [facility] Comment on above: Performed By: #### C BC ####[place] [address], [place] [phone] Platelet mean volume (Bld) [Entitic vol] 9.6 fL Normal 9.0-12.7 [facility] Comment on above: Performed By: #### C BC ####[place] [address], [place] [phone] Platelets (Bld) [#/Vol] 182 10*3/uL Normal 150-400 [facility] Comment on above: Performed By: #### C BC ####[place] [address], [place] [phone] RBC (Bld) [#/Vol] 3.75 10*6/uL Low 3.90-5.20 [facility] Comment on above: Performed By: #### C BC ####[place] [address] [place], [place] [phone] WBC (Bld) [#/Vol] 12.88 10*3/uL High 3.70-11.00 [facility] Comment on above: Performed By: #### C BC ####[facility] [address] [place], [place] [phone] CNDSon 04-30-2021 CNDS HNO ID: [id number] Author: Katty Logan APRN.STRAPPER [employer] BUFFER Service: Critical Care Author Type: Nurse Practitioner Type: Discharge Summary Filed: 04/30/2021 1:39 PM Note Text: DISCHARGE SUMMARY PATIENT NAME: Oscar Pineda ADMISSION DATE: 04/26/2021 DISCHARGE DATE: 04/30/2021 ATTENDING: Kayce Ricardo MD Code Status: Not on file Highest Readmission Risk Score: 13 The 30 day readmissions risk score is derived from an internally validated risk model which evaluates patient level characteristics, utilization history, medication orders and lab results up until the day of discharge. Patients with a score of 40 or above are considered highest risk for readmission. Specific patient level drivers will be listed at the bottom of the summary. 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 * Transitions of Care Critical Issues: SPECIALIST FOLLOW-UP: Per Camilla Urbano MD note 04/02 - f/u genetic testing Also please follow up with oncology LABS AND PROCEDURES PENDING AT DISCHARGE: No pending results. HOSPITAL COURSE: Patient presented for elective CT-guided cryoablation of desmoid tumor on 04/26. Per IR note: during cryoablation of desmoid tumor, 90cc air was administered into soft tissue of pneumodissection. CT performed after: air embolus demonstrated in inferior vena cava, hepatic veins, and some of the smaller branches, notably, the inferior epigastric vessels. In the chest, there was only a miniscule amount of air identified with diffuse foci in the right atrium and right ventricle. There was no cardiovascular comprise during the procedure. Patient was electively kept intubated and transferred to SICU. Upon arrival to SICU, patient was hemodynamically stable. Patient was kept in trendelenburg and left lateral position in order to keep the air away from the RV outflow tract. Head CT did not show any acute intra-cranial abnormalities. Cardiovascular medicine was consulted for recommendations. Echocardiogram did not show any right-sided heart strain. A central line was placed for venous access. Patient required propofol, fentanyl, and ketamine infusions for deep sedation in order for patient to tolerate this position and maintain patent airway. Patient was also kept on 100% FiO2. Interventional Radiology was consulted about venous access for aspiration of remaining air; however, the decision was made to manage patient conservatively. CT of chest showed no evidence of air embolism within the systemic veins, right-sided heart chambers, central pulmonary arteries and hepatic veins. CT of abdomen and pelvis showed resolution of intravenous gas. Right-upper quadrant ultrasound showed no residual intravenous air in hepatic vasculature. Patient developed fevers post-operatively, sputum culture and blood cultures were sent (both preliminary no growth), and patient was started on empiric zosyn. Patient was successfully extubated on 04/29. Patient had intermittent desaturations on room-air subsequently requiring supplemental oxygen and one time lasix injection. Patient was no longer febrile so she was de-escalated to Unasyn, and will complete antibiotic therapy at home with Oral Augmentin 875mg BID through 05/03/2015. Patient also being treated with short-term methylprednisolone 2mg daily until 05/02. While in the hospital, patients primary complaint was a headache which was managed with ibuprofen and tylenol. Patient had received Right IJ central venous catheter for IV medications during for stay in ICU - this was subsequently removed on 04/29/2021. Neurology Acute post-operative pain S/p ablation on 04/26 Assessment: c/o headache - improved today PLAN: - PRN ibuprofen and tylenol Cardiovascular Air embolus (HCC) Air noted on CT in inferior vena cava, hepatic veins, and epigastric vessels Per IR MSK note During cryoablation of desmoid tumor, 90cc air was administered into soft tissue for pneuomodissection. CT performed after : Air embolus demonstrated in the inferior vena cava, hepatic veins, and some of the smaller branches, notably, the inferior epigastric vessels. ?In the chest, there was only a miniscule amount of air identified with diffuse foci in the right atrium and right ventricle. 04/27 RUQ US to look for air in hepatic vasculature, no air noted ECHO with no air noted CT chest with no evidence of air embolism within the systemic veins, right-sided heart chambers, central pulmonary arteries and hepatic veins CT A/P with resolution of intravenous gas within the abdomen and pelvis Assessment: maintaining adequate saturations on room air KIMBER (more content not included)... Normal [facility] THERAPY NTon 04-30-2021 THERAPY NT HNO ID: [id number] Author: Licha Llanes, PT Service: Physical Therapy Author Type: Physical Therapist Type: Therapy (PT/OT/Speech/Resp) Filed: 04/30/2021 3:02 PM Note Text: Physical Therapy Treatment SERVICE DATE: 04/30/2021 SERVICE TIME: 1342 to 1351 ROOM: [place] [address] Recommended Discharge Disposition: Home Recommended Discharge Disposition Comments: Anticipate pt will progress to safety for return home with no PT needs with continued mobility training during acute hospital stay. Anticipated Discharge Needs: Physical Assist at Home Physical Assist at Home for: Cleaning;Laundry Recommended Discharge Equipment: No equipment needs anticipated PT 6 Clicks Score: 21 Precautions/Activity Restrictions: Fall Risk;Lines/Tubes/Drains Current Hospital Course: 35 y.o. F s/p cryoblation of desmoid tumor on 04/26 complicated by air embolism to IVC filter and hepatic veins with trace air in right heart. Pt requiring close monitroing in ICU with conservative management of air embolism with resolution. Extubated 04/29. Reason for Hospital Admission: cryoblation Relevant Past Medical History: abdominal wall desmoid tumor Response to Therapy Interventions: Good participation in activities, Improved tolerance for activity, Notable progression with functional activities/skills, On-track to achieve discharge goals Continue skilled needs due to: Continued monitoring of vital signs during mobility required, Functional mobility/skill impairments, Safety concerns Physical Therapy Problem List: Education Deficit;Pain;Safety Deficits;Impaired Self Care;Decreased Activity Tolerance;Decreased Strength;Functional Mobility Impairment;Balance Impaired Treatment Interventions: Education;Self Care / Home Management;Energy Conservation Training;Strengthening; Functional Mobility Training;Balance Training;Neuromuscular Re-education;Edema Management;Pain Management Pt able to ambulate farther without assistive device but occasional near loss of balance and able to negotiate stairs without issue. Denied pain and/or SOB. Educated on energy conservation techniques and walking program. Pt for d/c this afternoon. Plan for next visit: Gait training, Standing Balance, Stairs training Home Environment Patient Lives With: Spouse Assistance Available: 24 Hour Entry To Home: Stairs;With Rail Number Of Stairs Into Home: 2 Number Of Stairs To Bed/Bath: 14 Stairs to Bed/Bath with: Unilateral Rail Equipment Owned: (none) Prior Functional Level: Within Functional Limits Prior Functional Level Comments: I ADLs, amb no AD, denies falls Patient Report: I am ready to go home but I better try getting up again. CURRENT FUNCTIONAL STATUS: Most recent performance Current Functional Mobility Assist Level Additional Information Rolling Supine to Sit Minimal Assistance NT-chair pre/post session Sit to Supine Scooting Minimal Assistance Sit to Stand Stand By Assistance Stand to Sit Stand By Assistance Bed to Chair Minimal Assistance Toilet/Commode Gait Contact Guard Assistance Gait Device: None Gait Distance (feet): 120' Stairs Contact Guard Assistance Stairs Device: Rail Number of Stairs: 10 Curb Step Car Transfer Blank michelle indicate activity not attempted General Deviations/Observations : Arm swing decreased;Antalgic gait;Dianne decreased;Step length decreased -HLM: 7: Walk 25 feet or more Learning/Educational Needs: Discharge Plan;Disease Process;Equipment;Famil y Education/Training;Func tional Activities/Mobility;Saf ety;Respiratory Function;Rehabilitation Techniques and Procedures;Precautions; Changes in Plan of Care;Plan of Care;Pain Management Goals for Plan of Care: Patient /Caregiver Goals: Go Home;Walk Goals: Patient will demonstrate understanding of importance of mobility during hospital stay and resolve all functional needs identified.;Patient will demonstrate progress with functional mobility to allow safe discharge to home with available support and/or physical assistance.;Patient will demonstrate progress to optimize functional mobility, maximize activity tolerance and endurance to maximize function upon discharge. Ambulate up and down steps with: Modified Independent Number of steps: 14 Device: Rail Progress Toward Goals: Progressing as expected Rehab Potential: Good Patient will be discontinued from Physical Therapy when no further skilled needs are identified in this setting. PLAN: PT Frequency: 3 times per week Plan of Care developed with: Patient;Family TREATMENT INTERVENTIONS: Therapy Diagnosis: Abnormalities of gait and mobility-other Interventions Provided: Gait Training (96449) Gait Training (40366) Treatment Minutes: 9 $ Gait Training (55380) Billed Units: 1 unit Training AND education provided in: Discharge planning, Energy conservation, Exercise program, Expected functional level, Falls prevention, Gait pattern, reduction of deviations, Home safe (more content not included)... Normal [facility] ALLIED HEALTHon 04-29-2021 ALLIED HEALTH HNO ID: [id number] Author: Ana Watters RN Service: Healing Service Author Type: Registered Nurse Type: Allied Health Filed: 04/29/2021 8:13 AM Note Text: HEALING SERVICES THERAPY NOTE Service date: 04/29/21 Service time: 719 Visit with: Patient Purpose of session: Other (anticipatory change in care) Urgency of visit: Routine Type of visit: Patient/Family Not Available Intro/Patient Not Available: Patient and/or family currently not availble to speak with. Left materials and contact information at bedside. Referred by: Reason for Referral: Family Support: Family not present Intervention notes: The patient is currently intubated and sedated. There is no family at the bedside. Please place a consult as needed once the patient is awake. SIGNATURE: Ana Watters RN PATIENT NAME: Oscar Pineda DATE: April 29, 2021 TIME: 8:11 AM CONTACT #: [phone] Normal [facility] APTTon 04-29-2021 aPTT Coag (Bld) [Time] 26.4 s Normal 23.0-32.4 [facility] Comment on above: Result Comment: Unfr actionated Heparin Therapeutic Ranges: Standard Heparin Nomogram: 53 to 78 seconds (anti-Xa level of 0.3 to 0.7 U/ml) Low Dose/ACS Nomogram: 49 to 67 seconds (anti-Xa level of 0.2 to 0.5 U/ml) Stroke Treatment Nomogram: 49 to 67 seconds (anti-Xa level of 0.2 to 0.5 U/ml) Note: The APTT therapeutic range has been determined for the current lot of laboratory APTT reagent in use throughout the [facility]. 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 During the procedure, an unknown amount of air was inadvertently injected into her IVC and hepatic veins. Pt was kept intubated and transferred to SICU for hemodynamic monitoring. ECHO showed no R strain or presence of air. Portable head CT was negative. This patient has been screened for Care Management Transitional Planning Services. At this time, it does not appear this patient will require transition planning services. Should this change, and the patient require transition planning services during this admission, please contact Case Management. PRIMARY CARE PHYSICIAN: No primary care provider on file. 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 Last discharge within 30 days: No Advance Directive: Current Advance Directive: None Game Trapper Attempted to Assist with AD Completion: No Unable to Assist Due To:: Other: See Comment (N/A) Health LiteracyHow often do you need to have someone help you when you read instructions, pamphlets, or other written material from your doctor or pharmacy? : 1 - Never How confident are you filling out medical forms by yourself?: 1 - Extremely Baseline Mental Status Prior to this Illness what was the patient's Baseline Mental Status?: Alert AND Oriented Relationship of the informant to the patient:: Other: See Comment Name of Informant: : EMR Functional Status: Independent Does Patient Currently Receive Any Community Services or Home Care?: None Equipment Prior to Admission: None Has the Patient Been in a Half-Way Facility in the Past 30 days?: No SOCIAL: Living Arrangements: Home Lives With: Spouse Primary Contact: Extended Emergency Contact Information Primary Emergency Contact: LAURA PINEDA Address: [address] [place] [address] OF [facility] Mobile Relation: Spouse Supportive Patient Contact:: Yes Contact Resources: Family Family Name/Phone: LAURA PINEDA (Spouse) [phone] Caregiver AssessmentCaregiver is ready, willing and able to meet the patient's needs as recommended by the inter-professional team:: Yes Does the patient have an acute stroke diagnosis, or has the patient had a stroke during this admission?: No Patient's perception of need for this admission: ow Medication Adherance I am convinced of the importance of my prescription medication: 0 - Agree Completely I worry that my prescription medication will do more harm than good to me : 0 - Disagree Mostly I feel financially burdened by my [id number] expenses for my prescription medication:: 0 - Disagree Mostly Risk Score: 0 Patient is categorized as: Low risk < 2 Med Adherance Assessement not completed due to: No GAS TORCH BRAZIER meds Are you interested in bedside delivery of your medications? Yes Is Patient Psychosocially Complex?: No ASSESSMENT AND PLAN: Medical Needs: Medical Needs: None Psychosocial Needs: Psychosocial Needs: None FREEDOM OF CHOICE EXPLAINED: [place] of Choice Given: No Reason Not Given: No placements necessary POTENTIAL TRANSITION PLANS No Services Indicated SIGNATURE: Rocio Bear RN MSN PATIENT NAME: Oscar Pineda DATE: April 29, 2021 TIME: 11:53 AM PAGER/CONTACT #: [phone] Normal [facility] CBCon 04-29-2021 Absolute nRBC <0.01 Normal <0.01 [facility] Comment on above: Performed By: #### C BC, MG1, PHOS, PTT, CMP, PT ####[facility] [address] [place], [place] [phone] Erythrocyte distribution width (RBC) [Ratio] 11.8 % Normal 11.5-15.0 [facility] Comment on above: Performed By: #### C BC, MG1, PHOS, PTT, CMP, PT ####[facility] [address] [facility] [place] [phone] Hematocrit (Bld) [Volume fraction] 37.0 % Normal 36.0-46.0 [facility] Comment on above: Performed By: #### C BC, MG1, PHOS, PTT, CMP, PT ####[place] [address] [address] [place] [phone] Hemoglobin (Bld) [Mass/Vol] 12.3 g/dL Normal 11.5-15.5 [facility] Comment on above: Performed By: #### C BC, MG1, PHOS, PTT, CMP, PT ####[place] [address] [phone] MCH 30.9 pG Normal 26.0-34.0 [facility] Comment on above: Performed By: #### C BC, MG1, PHOS, PTT, CMP, PT ####[place] [address] [phone] MCHC (RBC) [Mass/Vol] 33.2 g/dL Normal 30.5-36.0 [facility] Comment on above: Performed By: #### C BC, MG1, PHOS, PTT, CMP, PT ####[place] [address] [phone] MCV (RBC) [Entitic vol] 93.0 fL Normal 80.0-100.0 [facility] Comment on above: Performed By: #### C BC, MG1, PHOS, PTT, CMP, PT ####[place] [address] [phone] Platelet mean volume (Bld) [Entitic vol] 10.0 fL Normal 9.0-12.7 [facility] Comment on above: Performed By: #### C BC, MG1, PHOS, PTT, CMP, PT ####[place] [address] [phone] Platelets (Bld) [#/Vol] 188 10*3/uL Normal 150-400 [facility] Comment on above: Performed By: #### C BC, MG1, PHOS, PTT, CMP, PT ####[place] [id number]CM[address], [place] [phone] RBC (Bld) [#/Vol] 3.98 10*6/uL Normal 3.90-5.20 [facility] Comment on above: Performed By: #### C BC, MG1, PHOS, PTT, CMP, PT ####[place] [address], [place] [phone] WBC (Bld) [#/Vol] 11.41 10*3/uL High 3.70-11.00 [facility] Comment on above: Performed By: #### C BC, MG1, PHOS, PTT, CMP, PT ####[place] [address], [place] [phone] Comp Metabolic Panelon 04-29 Albumin [Mass/Vol] 3.5 g/dL Low 3.9-4.9 [facility] Comment on above: Performed By: #### C BC, MG1, PHOS, PTT, CMP, PT ####[place] [address], [place] [phone] ALP [Catalytic activity/Vol] 43 U/L Normal 34-123 [facility] Comment on above: Performed By: #### C BC, MG1, PHOS, PTT, CMP, PT ####[facility], [place] [phone] ALT [Catalytic activity/Vol] 56 U/L High 7-38 [facility] Comment on above: Performed By: #### C BC, MG1, PHOS, PTT, CMP, PT ####[facility], [place] [phone] Anion gap [Moles/Vol] 14 mmol/L Normal 9-18 [facility] Comment on above: Performed By: #### C BC, MG1, PHOS, PTT, CMP, PT ####[place] [address], [place] [phone] AST [Catalytic activity/Vol] 171 U/L High 13-35 [facility] Comment on above: Performed By: #### C BC, MG1, PHOS, PTT, CMP, PT ####[place] [address] [place] [phone] Bilirubin [Mass/Vol] 0.6 mg/dL Normal 0.2-1.3 [facility] Comment on above: Performed By: #### C BC, MG1, PHOS, PTT, CMP, PT ####[address] [phone] Calcium [Mass/Vol] 8.3 mg/dL Low 8.5-10.2 [facility] Comment on above: Performed By: #### C BC, MG1, PHOS, PTT, CMP, PT ####[place] [address] [address] [phone] Chloride [Moles/Vol] 100 mmol/L Normal 97-105 [facility] Comment on above: Performed By: #### C BC, MG1, PHOS, PTT, CMP, PT ####[place] [address] [place] [phone] CO2 [Moles/Vol] 25 mmol/L Normal 22-30 [facility] Comment on above: Performed By: #### C BC, MG1, PHOS, PTT, CMP, PT ####[place] [address], [place] [phone] Creatinine [Mass/Vol] 0.78 mg/dL Normal 0.58-0.96 [facility] Comment on above: Performed By: #### C BC, MG1, PHOS, PTT, CMP, PT ####[place] [address], [place] [phone] eGFR- Amer. >60 Normal [facility] Comment on above: Performed By: #### C BC, MG1, PHOS, PTT, CMP, PT ####[facility] [place], [place] [phone] eGFR-All Other Races >60 Normal [facility] Comment on above: Result Comment: eGFR (Estimated GFR) Units of measure: mL/min/1.73 meters squared eGFR is derived from the reexpressed MDRD Study equation using the following parameters: serum creatinine, age, gender and race. The creatinine assay has been calibrated to be traceable to IDMS. An eGFR <60 mL/min/1.73m2 for >3 months is consistent with chronic kidney disease. Refer to KDOQI guidelines for clinical interpretation. In patients with unstable renal function, e.g. those with acute kidney injury, the eGFR may not accurately reflect actual GFR. Performed By: #### C BC, MG1, PHOS, PTT, CMP, PT ####[facility] [place], [place] [phone] Glucose [Mass/Vol] 167 mg/dL High 74-99 [facility] Comment on above: Result Comment: The [place] Diabetes Association (ADA) provides guidance for cutoff values for fasting glucose and random glucose. The ADA defines fasting as no caloric intake for at least 8 hours. Fasting plasma glucose results between 100 to 125 mg/dL indicate increased risk for diabetes (prediabetes). Fasting plasma glucose results greater than or equal to 126 mg/dL meet the criteria for diagnosis of diabetes. In the absence of unequivocal hyperglycemia, results should be confirmed by repeat testing. In a patient with classic symptoms of hyperglycemia or hyperglycemic crisis, random plasma glucose results greater than or equal to 200 mg/dL meet the criteria for diagnosis of diabetes. Reference: Standards of Medical Care in Diabetes 2016, [place] [employer] Association. Diabetes Care. 2016.39(Suppl 1). Performed By: #### C BC, MG1, PHOS, PTT, CMP, PT ####[facility] [place], [place] [phone] Potassium [Moles/Vol] 3.9 mmol/L Normal 3.7-5.1 [facility] Comment on above: Performed By: #### C BC, MG1, PHOS, PTT, CMP, PT ####[place] [address], [place] [phone] Protein [Mass/Vol] 6.0 g/dL Low 6.3-8.0 [facility] Comment on above: Performed By: #### C BC, MG1, PHOS, PTT, CMP, PT ####[address], [place] [phone] Sodium [Moles/Vol] 139 mmol/L Normal 136-144 [facility] Comment on above: Performed By: #### C BC, MG1, PHOS, PTT, CMP, PT ####[place] [phone] Urea nitrogen [Mass/Vol] 9 mg/dL Normal 7-21 [facility] Comment on above: Performed By: #### C BC, MG1, PHOS, PTT, CMP, PT ####[address] [phone] GASV + ALLon 04-29-2021 Base Excess 4 mmol/L Normal [facility] Comment on above: Performed By: #### V ALLBG ####[address] [phone] Calcium [Moles/Vol] 1.15 mmol/L Normal 1.08-1.30 [facility] Comment on above: Performed By: #### V ALLBG ####[address] [phone] Carboxyhemoglobin, Ziyad 1.2 % Normal <2.1 [facility] Comment on above: Performed By: #### V ALLBG ####[address] [phone] CO2 [Moles/Vol] 31 mmol/L High 25-29 [facility] Comment on above: Performed By: #### V ALLBG ####[place] [address] [place] [phone] Glucose [Mass/Vol] 178 mg/dL High 60-105 [facility] Comment on above: Performed By: #### V ALLBG ####[place] [address] [place] [phone] HCO3 (Bld) [Moles/Vol] 29 mmol/L High 24-28 [facility] Comment on above: Performed By: #### V ALLBG ####[place] [address] [phone] Lactate [Moles/Vol] 1.3 mmol/L Normal 0.5-2.2 [facility] Comment on above: Performed By: #### V ALLBG ####[place] [address] [place] [phone] Methemoglobin 0.7 % Normal <1.6 [facility] Comment on above: Performed By: #### V ALLBG ####[place] [address] [phone] O2 Administered 40% Normal [facility] Comment on above: Performed By: #### V ALLBG ####[place] [address] [place] [phone] pCO2 51 mm Hg Normal 42-55 [facility] Comment on above: Performed By: #### V ALLBG ####[place] [address] [place] [phone] pCO2, Temp Correct 51 mm Hg Normal 42-55 [facility] Comment on above: Performed By: #### V ALLBG ####[place] [address] [place] [phone] Potassium [Moles/Vol] 4.0 mmol/L Normal 3.5-5.0 [facility] Comment on above: Performed By: #### V ALLBG ####[place] [address], [place] [phone] Base Excess 3 mmol/L Normal [facility] Comment on above: Performed By: #### V ALLBG ####[place] [address], [place] [phone] Blood Gas Comm, Ziyad . Normal [facility] Comment on above: Performed By: #### V ALLBG ####[address] [phone] Body temperature 98.6 [degF] Normal [facility] Comment on above: Performed By: #### V ALLBG ####[place] [phone] Calcium [Moles/Vol] 1.18 mmol/L Normal 1.08-1.30 [facility] Comment on above: Performed By: #### V ALLBG ####[address] [phone] Carboxyhemoglobin, Ziyad 0.9 % Normal <2.1 [facility] Comment on above: Performed By: #### V ALLBG ####[address] [phone] CO2 [Moles/Vol] 30 mmol/L High 25-29 [facility] Comment on above: Performed By: #### V ALLBG ####[address] [phone] Glucose [Mass/Vol] 193 mg/dL High 60-105 [facility] Comment on above: Performed By: #### V ALLBG ####[address] [phone] HCO3 (Bld) [Moles/Vol] 28 mmol/L Normal 24-28 [facility] Comment on above: Performed By: #### V ALLBG ####[place] [address], [place] [phone] Hematocrit (Bld) [Volume fraction] 39.0 % Normal 36.0-46.0 [facility] Comment on above: Performed By: #### V ALLBG ####[place] [address] [phone] Hemoglobin (Bld) [Mass/Vol] 12.7 g/dL Normal 11.5-15.5 [facility] Comment on above: Performed By: #### V ALLBG ####[place] [address] [phone] Lactate [Moles/Vol] 1.6 mmol/L Normal 0.5-2.2 [facility] Comment on above: Performed By: #### V ALLBG ####[place] [address] [phone] Methemoglobin 1.0 % Normal <1.6 [facility] Comment on above: Performed By: #### V ALLBG ####[place] [address] [phone] O2 Administered 30% Normal [facility] Comment on above: Performed By: #### V ALLBG ####[place] [address] [phone] Oxyhemoglobin, Ziyad. 78 % Normal 60-85 [facility] Comment on above: Performed By: #### V ALLBG ####[place] [address] [phone] pCO2 49 mm Hg Normal 42-55 [facility] Comment on above: Performed By: #### V ALLBG ####[place] [address] [phone] pCO2, Temp Correct 49 mm Hg Normal 42-55 [facility] Comment on above: Performed By: #### V ALLBG ####[address] [phone] pH (Bld) 7.38 [pH] Normal 7.32-7.42 [facility] Comment on above: Performed By: #### V ALLBG ####[place] [phone] pH, Temp Corrected 7.38 Normal 7.32-7.42 [facility] Comment on above: Performed By: #### V ALLBG ####[place] [phone] pO2 46 mm Hg High 35-45 [facility] Comment on above: Performed By: #### V ALLBG ####[place] [phone] pO2, Temp Corrected 46 mm Hg High 35-45 [facility] Comment on above: Performed By: #### V ALLBG ####[address] [phone] Potassium [Moles/Vol] 4.3 mmol/L Normal 3.5-5.0 [facility] Comment on above: Performed By: #### V ALLBG ####[address] [phone] Sodium [Moles/Vol] 141 mmol/L Normal 136-144 [facility] Comment on above: Performed By: #### V ALLBG ####[address] [phone] Magnesiumon 04-29-2021 Magnesium [Mass/Vol] 1.8 mg/dL Normal 1.7-2.3 [facility] Comment on above: Performed By: #### C BC, MG1, PHOS, PTT, CMP, PT ####[facility] [address] [place], [place] [phone] NURSING PROGon 04-29-2021 NURSING PROG HNO ID: [id number] Author: Magda Rose RN Service: ? Author Type: Registered Nurse Type: Nursing Progress Note Filed: 04/29/2021 7:45 AM Note Text: Nursing Progress: Topic: RESTRAINT NON-VIOLENT PATIENT NAME: Oscar Pineda PATIENT LOCATION: [place] [address] The patient demonstrates Attempting to Remove Medical Devices Vital to Medical Stability, Confusion, Lack of Understanding/Ability to Comply with Safety Directions, Impulsive Behavior, Inability to be Redirected, Inability to Retain Information Regarding Safety Directions as evidenced by the following behaviors pulling at medical devices which pose an imminent danger to self or others. The following interventions were attempted but were not effective in protecting the patient's safety: Alarms, Bed in Low/Locked Position, Call Light Within Reach, IV/Feeding Bag/Pump Out of Vision, Medications Reviewed, Modify Environment, Modify Equipment, Frequent Observation, Pain/Discomfort Relief, Re-Orientation Methods Next, a comprehensive assessment was performed and warranted placing the patient in Soft Bilateral Wrists, the least restrictive restraint needed to protect the patient's safety. Ongoing safety assessments and evaluation for earliest removal of restraints will be performed. DATE: April 29, 2021 TIME: 7:44 AM Diane Rose RN Normal [facility] Phosphoruson 04-29-2021 Phosphate [Mass/Vol] 3.2 mg/dL Normal 2.7-4.8 [facility] Comment on above: Performed By: #### C BC, MG1, PHOS, PTT, CMP, PT ####[facility] [place], [place] [phone] Protimeon 04-29-2021 PT INR 1.0 Normal 0.9-1.3 [facility] Comment on above: Result Comment: Neha min K Antagonist (VKA) Therapeutic Range: INR 2 to 3 (Target INR of 2.5) Note: For patients treated with VKA drugs, such as warfarin, the [place] [employer] 2012 Guideline recommends a therapeutic INR range of 2 to 3 (target INR of 2.5). This recommendation includes high-risk patients with antiphospholipid syndrome with previous arterial or venous thromboembolism, current-generation mechanical or bioprosthetic aortic heart valve replacement. Note: Patients with mechanical aortic valve replacement and additional risk factors for thromboembolic events (atrial fibrillation, previous thromboembolism, LV dysfunction, hypercoagulable conditions) or an older generation mechanical AVR (i.e., ball in-Cage) or any mechanical MVR should have a INR therapeutic range of 2.5 to 3.5 (target INR of 3). Deep GH, et al. Chest 2012, 141:7S-47S Daphne RA, et al. [facility] 2017, 70: 252-289 Performed By: #### C BC, MG1, PHOS, PTT, CMP, PT ####[facility] [place], [place] [phone] PT Sec 11.0 sec Normal 9.7-13.0 [facility] Comment on above: Performed By: #### C BC, MG1, PHOS, PTT, CMP, PT ####[facility] [address] [place], [place] [phone] THERAPY NTon 04-29-2021 THERAPY NT HNO ID: [id number] Author: Neela Prasad, PT Service: Physical Therapy Author Type: Physical Therapist Type: Therapy (PT/OT/Speech/Resp) Filed: 04/29/2021 10:05 AM Note Text: Physical Therapy Evaluation SERVICE DATE: 04/29/2021 SERVICE TIME: 907 to 945 ROOM: [place] [address] Recommended Discharge Disposition: Home Recommended Discharge Disposition Comments: Anticipate pt will progress to safety for return home with no PT needs with continued mobility training during acute hospital stay. Anticipated Discharge Needs: Physical Assist at Home Physical Assist at Home for: Cleaning;Laundry Recommended Discharge Equipment: No equipment needs anticipated PT 6 Clicks Score: 17 Precautions/Activity Restrictions: Fall Risk;Lines/Tubes/Drains Current Hospital Course: 35 y.o. F s/p cryoblation of desmoid tumor on 04/26 complicated by air embolism to IVC filter and hepatic veins with trace air in right heart. Pt requiring close monitroing in ICU with conservative management of air embolism with resolution. Extubated 04/29. Reason for Hospital Admission: cryoblation Relevant Past Medical History: abdominal wall desmoid tumor Response to Therapy Interventions: Good participation in activities, On-track to achieve discharge goals Continue skilled needs due to: Continued monitoring of vital signs during mobility required, Functional mobility/skill impairments, Safety concerns Physical Therapy Problem List: Education Deficit;Pain;Safety Deficits;Impaired Self Care;Decreased Activity Tolerance;Decreased Strength;Functional Mobility Impairment;Balance Impaired Treatment Interventions: Education;Self Care / Home Management;Energy Conservation Training;Strengthening; Functional Mobility Training;Balance Training;Neuromuscular Re-education;Edema Management;Pain Management Plan for next visit: Gait training, Standing Balance, Stairs training Home Environment Patient Lives With: Spouse Assistance Available: 24 Hour Entry To Home: Stairs;With Rail Number Of Stairs Into Home: 2 Number Of Stairs To Bed/Bath: 14 Stairs to Bed/Bath with: Unilateral Rail Equipment Owned: (none) Prior Functional Level: Within Functional Limits Prior Functional Level Comments: I ADLs, amb no AD, denies falls Patient Report: Agreeable to PT. CURRENT FUNCTIONAL STATUS: Most recent performance Current Functional Mobility Assist Level Additional Information Rolling Supine to Sit Minimal Assistance Sit to Supine Scooting Minimal Assistance Sit to Stand Minimal Assistance x 3 trials total Stand to Sit Minimal Assistance Bed to Chair Minimal Assistance Toilet/Commode Gait Contact Guard Assistance Gait Device: Wheeled Walker;With Wheelchair Follow Gait Distance (feet): 80 ft x 2 trials Stairs Curb Step Car Transfer Blank michelle indicate activity not attempted General Deviations/Observations : Dianne decreased;Flexed trunk posture;Step length decreased;Non-functiona l gait speed [facility]: 7: Walk 25 feet or more Learning/Educational Needs: Discharge Plan;Disease Process;Equipment;Famil y Education/Training;Func tional Activities/Mobility;Saf ety;Respiratory Function;Rehabilitation Techniques and Procedures;Precautions; Changes in Plan of Care;Plan of Care;Pain Management Goals for Plan of Care: Patient /Caregiver Goals: Go Home;Walk Goals: Patient will demonstrate understanding of importance of mobility during hospital stay and resolve all functional needs identified.;Patient will demonstrate progress with functional mobility to allow safe discharge to home with available support and/or physical assistance.;Patient will demonstrate progress to optimize functional mobility, maximize activity tolerance and endurance to maximize function upon discharge. Ambulate up and down steps with: Modified Independent Number of steps: 14 Device: Rail Rehab Potential: Good Patient will be discontinued from Physical Therapy when no further skilled needs are identified in this setting. PLAN: PT Frequency: 3 times per week Plan of Care developed with: Patient;Family TREATMENT INTERVENTIONS: Therapy Diagnosis: Reduced mobility-other Interventions Provided: Evaluation;Gait Training (75539);Therapeutic Activity (49842) $ Evaluation-Moderate (60059) Billed Units: 1 unit Therapeutic Activity (19252) Treatment Minutes: 8 $ Therapeutic Activity (70837) Billed Units: 1 unit Gait Training (97673) Treatment Minutes: 15 $ Gait Training (63801) Billed Units: 1 unit Training AND education provided in: Bed mobility, Benefits of in-hospital mobility, Discharge planning, Energy conservation, Expected functional level, Gait pattern, reduction of deviations, Positioning, Precautions/restriction s, Role of Physical Therapy, Sitting balance, Standing balance, Transfers, Treatment protocol, Equipment, Assistive device use The following therapeutic skills were used: Activity dosing, Assessment of tolerance includi (more content not included)... Normal [facility] Type and Screenon 04-29-2021 ABO/RH(D) Positive Normal [facility] Comment on above: Performed By: #### T SCR ####[place] [id number] [place], [place] [phone] APTTon 04-28-2021 aPTT Coag (Bld) [Time] 26.6 s Normal 23.0-32.4 [facility] Comment on above: Result Comment: Unfr actionated Heparin Therapeutic Ranges: Standard Heparin Nomogram: 53 to 78 seconds (anti-Xa level of 0.3 to 0.7 U/ml) Low Dose/ACS Nomogram: 49 to 67 seconds (anti-Xa level of 0.2 to 0.5 U/ml) Stroke Treatment Nomogram: 49 to 67 seconds (anti-Xa level of 0.2 to 0.5 U/ml) Note: The APTT therapeutic range has been determined for the current lot of laboratory APTT reagent in use throughout the [facility]. Performed By: #### P T, PTT, TRIG, CMP, CBC, MG1, PHOS ####[facility] [place], [place] [phone] Blood Cultureon 04-28-2021 Bacteria identified Cx Nom (Bld) Culture Result - No growth 5 days Normal [facility] Comment on above: Performed By: #### B LCUL ####[place] [address], [place] [phone] Bacteria identified Cx Nom (Bld) Culture Result - No growth 5 days Normal [facility] Comment on above: Performed By: #### B LCUL ####[place] [address] [place], [place] [phone] CBCon 04-28-2021 Absolute nRBC <0.01 Normal <0.01 [facility] Comment on above: Performed By: #### P T, PTT, TRIG, CMP, CBC, MG1, PHOS ####[address] [phone] Erythrocyte distribution width (RBC) [Ratio] 12.4 % Normal 11.5-15.0 [facility] Comment on above: Performed By: #### P T, PTT, TRIG, CMP, CBC, MG1, PHOS ####[address] [phone] Hematocrit (Bld) [Volume fraction] 36.1 % Normal 36.0-46.0 [facility] Comment on above: Performed By: #### P T, PTT, TRIG, CMP, CBC, MG1, PHOS ####[address] [phone] Hemoglobin (Bld) [Mass/Vol] 11.8 g/dL Normal 11.5-15.5 [facility] Comment on above: Performed By: #### P T, PTT, TRIG, CMP, CBC, MG1, PHOS ####[address] [place], [place] [phone] MCH 30.9 pG Normal 26.0-34.0 [facility] Comment on above: Performed By: #### P T, PTT, TRIG, CMP, CBC, MG1, PHOS ####[address] [phone] MCHC (RBC) [Mass/Vol] 32.7 g/dL Normal 30.5-36.0 [facility] Comment on above: Performed By: #### P T, PTT, TRIG, CMP, CBC, MG1, PHOS ####[address] [phone] MCV (RBC) [Entitic vol] 94.5 fL Normal 80.0-100.0 [facility] Comment on above: Performed By: #### P T, PTT, TRIG, CMP, CBC, MG1, PHOS ####[address] [phone] Platelet mean volume (Bld) [Entitic vol] 9.8 fL Normal 9.0-12.7 [facility] Comment on above: Performed By: #### P T, PTT, TRIG, CMP, CBC, MG1, PHOS ####[address] [phone] Platelets (Bld) [#/Vol] 178 10*3/uL Normal 150-400 [facility] Comment on above: Performed By: #### P T, PTT, TRIG, CMP, CBC, MG1, PHOS ####[address] [phone] RBC (Bld) [#/Vol] 3.82 10*6/uL Low 3.90-5.20 [facility] Comment on above: Performed By: #### P T, PTT, TRIG, CMP, CBC, MG1, PHOS ####[address] [phone] WBC (Bld) [#/Vol] 11.29 10*3/uL High 3.70-11.00 [facility] Comment on above: Performed By: #### P T, PTT, TRIG, CMP, CBC, MG1, PHOS ####[facility] [address] [place], [place] [phone] CT ABD/PEL W IVCONon 021 CT ABD/PEL W IVCON * * *Final Report* * * DATE OF EXAM: Apr 28 2021 2:10PM [facility] 0530 - CT ABD/PEL W IVCON / PROCEDURE REASON: Air embolism (traumatic) * * * * Physician Interpretation * * * * EXAMINATION: CT ABDOMEN AND PELVIS WITH IV CONTRAST CLINICAL HISTORY: 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 TECHNIQUE: CT of the abdomen and pelvis was performed using standard technique, scanning from just above the dome of the diaphragm to the symphysis pubis. MQ: CTAP_3 Contrast: Central IV: 147 ml of Omnipaque 300 CT Radiation dose: Integrated Dose-length product (DLP) for this visit = 1164 mGy*cm. CT Dose Reduction Employed: Automated exposure control (AEC) COMPARISON: CT ablation MSK 04/26/2021. CT 12/07/2020 RESULT: Liver: Stable subcentimeter low-attenuation lesion in the right hepatic lobe (3:32), too small to characterize but likely benign. New mild periportal edema. Biliary: No bile duct dilation. Gallbladder is unremarkable. Spleen: No mass. No splenomegaly. Pancreas: No mass or duct dilation. Adrenals: No mass. Kidneys: No mass, calculus or hydronephrosis. GI tract: No dilation or wall thickening. Lymph nodes: No abdominal or pelvic lymphadenopathy. Mesentery/Peritoneum: Trace ascites. Retroperitoneum: No mass. Vasculature: Resolution of prior gas throughout the IVC, hepatic veins, and smaller abdominal veins. The celiac axis and SMA are patent. The portal vein and branches, splenic vein, SMV, and hepatic veins are patent. No abdominal aortic or iliac artery aneurysm. Pelvis: Small-volume ascites. Partially collapsed urinary bladder with Conway catheter in place. Bones/Soft Tissues: Expected postoperative changes from recent cryoablation involving the right rectus abdominis desmoid tumor, with intramuscular, abdominal wall, and subcutaneous edema. Decreased gas within the rectus muscles and rectus sheath. Lower thorax: A chest CT performed will be reported separately. Kitchen Stewardess (topogram) images: No additional findings. IMPRESSION: Resolution of intravenous gas within the abdomen and pelvis. 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 General Laborer: ANEL Transcribe Date/Time: Apr 28 2021 2:50P Dictated by : KASHMIR RIVERA MD This examination was interpreted and the report reviewed and electronically signed by: ELIAS WOODY MD on Apr 28 2021 4:13PM EST [id number] Normal [facility] CT CHEST W IVCONon CT CHEST W IVCON * * *Final Report* * * DATE OF EXAM: Apr 28 2021 2:10PM [facility] 0539 - CT CHEST W IVCON / PROCEDURE REASON: Air embolism (traumatic) * * * * Physician Interpretation * * * * EXAMINATION: CHEST CT WITH CONTRAST CLINICAL HISTORY: Air embolism (traumatic) Technique: Spiral CT acquisition of the chest from the thoracic inlet to the upper abdomen following IV contrast. MQ: CTCW_6 Contrast: 147 mL Omnipaque [address] Radiation dose: Integrated Dose-length product (DLP) for this visit = 1164 mGy*cm CT Dose Reduction Employed: Automated exposure control (AEC) Comparison: No relevant prior studies available. RESULT: Limitations: None. Lines, tubes, and devices: ET tube is optimally located. RIGHT IJ central venous catheter tip terminates in the lower third of the SVC. Lung parenchyma, pleural space and airways: There is complete LEFT lower lobe and partial dependent RIGHT lower lobe atelectasis. There is dependent atelectasis in the posterior LEFT upper lobe. Linear atelectasis is noted in the inferior lingula. There are trace bilateral pleural effusions. There is mild interlobular septal thickening in the apices. The trachea and central airways appear patent, devoid of endobronchial lesion. Lower neck, lymph nodes, and mediastinum: No obvious abnormality in the imaged thyroid gland. There is no axillary, mediastinal or hilar lymphadenopathy. Heart, pericardium, and thoracic vessels: No evidence of gas within the systemic veins, right-sided heart chambers or central pulmonary arteries. The cardiac chambers are normal in size. There is no pericardial effusion or thickening. The main pulmonary artery is normal in calibre. The thoracic aorta is normal in calibre. The arch branching pattern is normal. No coronary artery calcifications are noted, although the study is not optimized for coronary assessment. Bones and soft tissues: Chest wall soft tissues are unremarkable. The vertebral body heights appear symmetric and well-maintained. Upper abdomen: No evidence of gas within the hepatic veins. There is minimal intrahepatic biliary ductal dilation. Kitchen Stewardess (topogram) images: No additional findings. IMPRESSION: 1. No CT evidence of air embolism within the systemic veins, right-sided heart chambers, central pulmonary arteries and hepatic veins. 2. Posterior complete LEFT lower lobe, partially dependent RIGHT lower lobe and dependent LEFT upper lobe atelectasis. Given the distribution, this finding may be related to aspiration. Trace bilateral pleural effusions. General Laborer: ANEL Transcribe Date/Time: Apr 28 2021 3:35P Dictated by : MICHELLE PETERSEN MD This examination was interpreted and the report reviewed and electronically signed by: MICHELLE PETERSEN MD on Apr 28 2021 3:45PM EST [id number] Normal [facility] Comp Metabolic Panelon 04-28 Albumin [Mass/Vol] 3.0 g/dL Low 3.9-4.9 [facility] Comment on above: Performed By: #### P T, PTT, TRIG, CMP, CBC, MG1, PHOS ####[facility] [place], [place] [phone] ALP [Catalytic activity/Vol] 36 U/L Normal 34-123 [facility] Comment on above: Performed By: #### P T, PTT, TRIG, CMP, CBC, MG1, PHOS ####[facility] [address] [place], [place] [phone] ALT [Catalytic activity/Vol] 32 U/L Normal 7-38 [facility] Comment on above: Performed By: #### P T, PTT, TRIG, CMP, CBC, MG1, PHOS ####[facility] [place], [place] [phone] Anion gap [Moles/Vol] 10 mmol/L Normal 9-18 [facility] Comment on above: Performed By: #### P T, PTT, TRIG, CMP, CBC, MG1, PHOS ####[address] [phone] AST [Catalytic activity/Vol] 102 U/L High 13-35 [facility] Comment on above: Performed By: #### P T, PTT, TRIG, CMP, CBC, MG1, PHOS ####[address] [phone] Bilirubin [Mass/Vol] 0.3 mg/dL Normal 0.2-1.3 [facility] Comment on above: Performed By: #### P T, PTT, TRIG, CMP, CBC, MG1, PHOS ####[address] [phone] Calcium [Mass/Vol] 7.9 mg/dL Low 8.5-10.2 [facility] Comment on above: Performed By: #### P T, PTT, TRIG, CMP, CBC, MG1, PHOS ####[address] [phone] Chloride [Moles/Vol] 107 mmol/L High 97-105 [facility] Comment on above: Performed By: #### P T, PTT, TRIG, CMP, CBC, MG1, PHOS ####[address] [phone] CO2 [Moles/Vol] 25 mmol/L Normal 22-30 [facility] Comment on above: Performed By: #### P T, PTT, TRIG, CMP, CBC, MG1, PHOS ####[address] [phone] Creatinine [Mass/Vol] 0.85 mg/dL Normal 0.58-0.96 [facility] Comment on above: Performed By: #### P T, PTT, TRIG, CMP, CBC, MG1, PHOS ####[facility] [address] [place], [place] [phone] eGFR- Amer. >60 Normal [facility] Comment on above: Performed By: #### P T, PTT, TRIG, CMP, CBC, MG1, PHOS ####[place] [address] [place], [place] [phone] eGFR-All Other Races >60 Normal [facility] Comment on above: Result Comment: eGFR (Estimated GFR) Units of measure: mL/min/1.73 meters squared eGFR is derived from the reexpressed MDRD Study equation using the following parameters: serum creatinine, age, gender and race. The creatinine assay has been calibrated to be traceable to IDMS. An eGFR <60 mL/min/1.73m2 for >3 months is consistent with chronic kidney disease. Refer to KDOQI guidelines for clinical interpretation. In patients with unstable renal function, e.g. those with acute kidney injury, the eGFR may not accurately reflect actual GFR. Performed By: #### P T, PTT, TRIG, CMP, CBC, MG1, PHOS ####[place] [address] [place], [place] [phone] Glucose [Mass/Vol] 86 mg/dL Normal 74-99 [facility] Comment on above: Result Comment: The [place] [employer] (ADA) provides guidance for cutoff values for fasting glucose and random glucose. The ADA defines fasting as no caloric intake for at least 8 hours. Fasting plasma glucose results between 100 to 125 mg/dL indicate increased risk for diabetes (prediabetes). Fasting plasma glucose results greater than or equal to 126 mg/dL meet the criteria for diagnosis of diabetes. In the absence of unequivocal hyperglycemia, results should be confirmed by repeat testing. In a patient with classic symptoms of hyperglycemia or hyperglycemic crisis, random plasma glucose results greater than or equal to 200 mg/dL meet the criteria for diagnosis of diabetes. Reference: Standards of Medical Care in Diabetes 2016, [place] [employer]. Diabetes Care. 2016.39(Suppl 1). Performed By: #### P T, PTT, TRIG, CMP, CBC, MG1, PHOS ####[facility]CM[address], [place] [phone] Potassium [Moles/Vol] 3.8 mmol/L Normal 3.7-5.1 [facility] Comment on above: Performed By: #### P T, PTT, TRIG, CMP, CBC, MG1, PHOS ####[address], [place] [phone] Protein [Mass/Vol] 5.2 g/dL Low 6.3-8.0 [facility] Comment on above: Performed By: #### P T, PTT, TRIG, CMP, CBC, MG1, PHOS ####[address] [phone] Sodium [Moles/Vol] 142 mmol/L Normal 136-144 [facility] Comment on above: Performed By: #### P T, PTT, TRIG, CMP, CBC, MG1, PHOS ####[address] [phone] Urea nitrogen [Mass/Vol] 15 mg/dL Normal 7-21 [facility] Comment on above: Performed By: #### P T, PTT, TRIG, CMP, CBC, MG1, PHOS ####[address] [phone] GASV + ALLon 04-28-2021 Base Excess 2 mmol/L Normal [facility] Comment on above: Performed By: #### V ALLBG ####[address] [phone] Blood Gas Comm, Ziyad . Normal [facility] Comment on above: Performed By: #### V ALLBG ####[address] [phone] Body temperature 98.6 [degF] Normal [facility] Comment on above: Performed By: #### V ALLBG ####[place] [address], [place] [phone] Calcium [Moles/Vol] 1.18 mmol/L Normal 1.08-1.30 [facility] Comment on above: Performed By: #### V ALLBG ####[place] [address], [place] [phone] Carboxyhemoglobin, Ziayd 0.7 % Normal <2.1 [facility] Comment on above: Performed By: #### V ALLBG ####[place] [address], [place] [phone] CO2 [Moles/Vol] 30 mmol/L High 25-29 [facility] Comment on above: Performed By: #### V ALLBG ####[place] [address], [place] [phone] Glucose [Mass/Vol] 90 mg/dL Normal 60-105 [facility] Comment on above: Performed By: #### V ALLBG ####[place] [address], [place] [phone] HCO3 (Bld) [Moles/Vol] 29 mmol/L High 24-28 [facility] Comment on above: Performed By: #### V ALLBG ####[place] [address], [place] [phone] Hematocrit (Bld) [Volume fraction] 37.7 % Normal 36.0-46.0 [facility] Comment on above: Performed By: #### V ALLBG ####[place] [address], [place] [phone] Hemoglobin (Bld) [Mass/Vol] 12.3 g/dL Normal 11.5-15.5 [facility] Comment on above: Performed By: #### V ALLBG ####[place] [address], [place] [phone] Lactate [Moles/Vol] 0.9 mmol/L Normal 0.5-2.2 [facility] Comment on above: Performed By: #### V ALLBG ####[facility] [place] [phone] Methemoglobin 1.5 % Normal <1.6 [facility] Comment on above: Performed By: #### V ALLBG ####[facility] [place] [phone] O2 Administered 100% Normal [facility] Comment on above: Performed By: #### V ALLBG ####[place] [address] [place] [phone] Oxyhemoglobin, Ziyad. 83 % Normal 60-85 [facility] Comment on above: Performed By: #### V ALLBG ####[place] [address] [place] [phone] pCO2 57 mm Hg High 42-55 [facility] Comment on above: Performed By: #### V ALLBG ####[place] [address] [place] [phone] pCO2, Temp Correct 57 mm Hg High 42-55 [facility] Comment on above: Performed By: #### V ALLBG ####[place] [address] [place] [phone] pH (Bld) 7.32 [pH] Normal 7.32-7.42 [facility] Comment on above: Performed By: #### V ALLBG ####[facility] [place] [phone] pH, Temp Corrected 7.32 Normal 7.32-7.42 [facility] Comment on above: Performed By: #### V ALLBG ####[facility] [place] [phone] pO2 54 mm Hg High 35-45 [facility] Comment on above: Performed By: #### V ALLBG ####[place] [address] [place], [place] [phone] pO2, Temp Corrected 54 mm Hg High 35-45 [facility] Comment on above: Performed By: #### V ALLBG ####[place] [address] [place], [place] [phone] Potassium [Moles/Vol] 3.8 mmol/L Normal 3.5-5.0 [facility] Comment on above: Performed By: #### V ALLBG ####[address] [phone] Sodium [Moles/Vol] 142 mmol/L Normal 136-144 [facility] Comment on above: Performed By: #### V ALLBG ####[address] [phone] Magnesiumon 04-28-2021 Magnesium [Mass/Vol] 2.0 mg/dL Normal 1.7-2.3 [facility] Comment on above: Performed By: #### P T, PTT, TRIG, CMP, CBC, MG1, PHOS ####[facility] [place], [place] [phone] NURSING PROGon 04-28-2021 NURSING PROG HNO ID: [id number] Author: Laura Mullins RN Service: ? Author Type: Registered Nurse Type: Nursing Progress Note Filed: 04/28/2021 8:01 PM Note Text: Nursing Progress: Topic: RESTRAINT NON-VIOLENT PATIENT NAME: Oscar Pineda PATIENT LOCATION: [place] [address] The patient demonstrates Attempting to Remove Medical Devices Vital to Medical Stability, Confusion, Lack of Understanding/Ability to Comply with Safety Directions, Impulsive Behavior, Inability to be Redirected, Inability to Retain Information Regarding Safety Directions as evidenced by the following behaviors- pulling at lines/ETT, which pose an imminent danger to self or others. The following interventions were attempted but were not effective in protecting the patient's safety: Alarms, Bed in Low/Locked Position, Call Light Within Reach, IV/Feeding Bag/Pump Out of Vision, Medications Reviewed, Modify Environment, Modify Equipment, Frequent Observation, Pain/Discomfort Relief, Re-Orientation Methods Next, a comprehensive assessment was performed and warranted placing the patient in Soft Bilateral Wrists, the least restrictive restraint needed to protect the patient's safety. Ongoing safety assessments and evaluation for earliest removal of restraints will be performed. DATE: April 28, 2021 TIME: 8:01 PM Laura Mullins RN [facility] NURSING PROG HNO ID: [id number] Author: Rob Guerra RN Service: Radiology Author Type: Registered Nurse Type: Nursing Progress Note Filed: 04/28/2021 2:09 PM Note Text: Radiology Service Progress Note DATE OF SERVICE: April 28, 2021 TIME: 2:08 PM PATIENT WEIGHT: 157LBS PATIENT IDENTITY VERIFICATION COMPLETED USING TWO (2) STANDARD IDENTIFIERS: Name and Date of confirmed by identification band. FALL SCREENING: Has the patient had 2 falls in the last year or 1 fall with injury or currently using an Ambulatory Assistive Device (Walker, Cane, Wheelchair, Crutches, etc.)? Inpatient: Screened on floor PATIENT GENDER DATA: Female. status: : No status: NO. ALLERGIES: Reviewed and unchanged CONTRAST ALLERGY: No EXAM: CT -CONTRAST INDUCED NEPHROPATHY RISK FACTORS: Not applicable CREATININE: Creatinine Date Value Ref Range Status 04/28/2021 0.85 0.58 - 0.96 mg/dL Final 04/27/2021 0.76 0.58 - 0.96 mg/dL Final 04/26/2021 0.74 0.58 - 0.96 mg/dL Final eGFR-All Other Races Date Value Ref Range Status 04/28/2021 >60 . Final Comment: eGFR (Estimated GFR) Units of measure: mL/min/1.73 meters squared eGFR is derived from the reexpressed MDRD Study equation using the following parameters: serum creatinine, age, gender and race. The creatinine assay has been calibrated to be traceable to IDMS. An eGFR <60 mL/min/1.73m2 for >3 months is consistent with chronic kidney disease. Refer to KDOQI guidelines for clinical interpretation. In patients with unstable renal function, e.g. those with acute kidney injury, the eGFR may not accurately reflect actual GFR. eGFR- Date Value Ref Range Status 04/28/2021 >60 Final P.O.C.T. RESULTS: N/A April 28, 2021 TREATMENT: N/A IV SITE: Inpatient - refer to LDA documentation IV SITE APPEARANCE: Clean,Dry and Intact SIGNATURE: Rob Guerra RN PATIENT NAME: Oscar Pineda DATE: April 28, 2021 TIME: 2:08 PM [facility] NURSING PROG HNO ID: [id number] Author: Yumiko Molina RN Service: ? Author Type: Registered Nurse Type: Nursing Progress Note Filed: 04/28/2021 2:57 PM Note Text: Nursing Progress Note Patient Name: Oscar Pineda [place] [facility] [place] at bedside, advised transfer to CT table while still in trendelenburg trial patient supine, still in trendelenburg. Tolerating [address], notified of positioning requirements 1345 DIRECTOR OF RETAIL ANALYTICS, resident, two RT's, and two RN's at bedside for transport. Pt on telemetry/ continuous monitoring. CT and IR LIP notified. [address] imaging table, trendelenburg positioning maintained [address] and gave verbal OK to transition HOB flat then elevated (as tolerated) 1420 patient in SICU, HOB flat. Tolerating This note was completed by: Yumiko Molina [facility] NURSING PROG HNO ID: [id number] Author: Yumiko Molina RN Service: ? Author Type: Registered Nurse Type: Nursing Progress Note Filed: 04/28/2021 1:22 PM Note Text: Nursing Progress: Topic: RESTRAINT NON-VIOLENT PATIENT NAME: Oscar Pineda [place] [facility] [place] The patient demonstrates Attempting to Remove Medical Devices Vital to Medical Stability as evidenced by the following behaviors attempting to remove medical reimbursement specialist which pose an imminent danger to self or others. The following interventions were attempted but were not effective in protecting the patient's safety: Alarms, Bed in Low/Locked Position, Medications Reviewed, Modify Environment, Frequent Observation, Modify Equipment Next, a comprehensive assessment was performed and warranted placing the patient in Soft Bilateral Wrists, the least restrictive restraint needed to protect the patient's safety. Ongoing safety assessments and evaluation for earliest removal of restraints will be performed. DATE: April 28, 2021 TIME: 8:00AM Yumiko Molina RN Normal [facility] Phosphoruson 04-28-2021 Phosphate [Mass/Vol] 2.3 mg/dL Low 2.7-4.8 [facility] Comment on above: Performed By: #### P T, PTT, TRIG, CMP, CBC, MG1, PHOS ####[facility] [place], [place] [phone] Protimeon 04-28-2021 PT INR 1.0 Normal 0.9-1.3 [facility] Comment on above: Result Comment: Neha min K Antagonist (VKA) Therapeutic Range: INR 2 to 3 (Target INR of 2.5) Note: For patients treated with VKA drugs, such as warfarin, the [place] [employer] 2012 Guideline recommends a therapeutic INR range of 2 to 3 (target INR of 2.5). This recommendation includes high-risk patients with antiphospholipid syndrome with previous arterial or venous thromboembolism, current-generation mechanical or bioprosthetic aortic heart valve replacement. Note: Patients with mechanical aortic valve replacement and additional risk factors for thromboembolic events (atrial fibrillation, previous thromboembolism, LV dysfunction, hypercoagulable conditions) or an older generation mechanical AVR (i.e., ball in-Cage) or any mechanical MVR should have a INR therapeutic range of 2.5 to 3.5 (target INR of 3). Deep GH, et al. Chest 2012, 141:7S-47S Daphne PEDERSON et al. [facility] 2017, 70: 252-289 Performed By: #### P T, PTT, TRIG, CMP, CBC, MG1, PHOS ####[facility] [place], [place] [phone] PT Sec 11.0 sec Normal 9.7-13.0 [facility] Comment on above: Performed By: #### P T, PTT, TRIG, CMP, CBC, MG1, PHOS ####[facility] [place], [place] [phone] Respiratory Cult/Stainon Respiratory Cult/Stain Sp. Request/Comment: - Specimen received in sterile container. Smear Result - Rare Mixed oral kaylynn Many Polymorphonuclear leukocytes Rare Epithelial cells Culture Result - Few Staphylococcus aureus --> ABNORMAL ALERT Insignificant colony count. No further workup. --> ABNORMAL ALERT Few Normal respiratory kaylynn present Critically abnormal [facility] Comment on above: Performed By: #### R CULST ####[address] [phone] Triglycerideon 04-28-2021 Fasting Time Unknown Normal [facility] Comment on above: Performed By: #### P T, PTT, TRIG, CMP, CBC, MG1, PHOS ####[address] [phone] Triglyceride [Mass/Vol] 155 mg/dL High <150 [facility] Comment on above: Result Comment: <150 mg/dL, Normal 150-199 mg/dL, Borderline high 200-499 mg/dL, High >499 mg/dL, Very high Reference: 1. National Cholesterol Education Program ATP III Guideline At-A-Glance Quick Desk Reference: National Heart, Lung, and Blood [place]. National Institutes of Health. 2001: NIH Publication No. 01-3305. Performed By: #### P T, PTT, TRIG, CMP, CBC, MG1, PHOS ####[address] [phone] Urinalysison 04-28-2021 Bilirubin, Urine Negative Normal Negative [facility] Comment on above: Performed By: #### U A ####[address] [phone] Clarity (U) Clear Normal Clear [facility] Comment on above: Performed By: #### U A ####[place] [address] [place] [phone] Color (U) Light Yellow Critically abnormal Yellow [facility] Comment on above: Performed By: #### U A ####[place] [address] [place] [phone] Comments SEE COMMENT Normal [facility] Comment on above: Result Comment: Micr oscopic not warranted Performed By: #### U A ####[place] [address] [place] [phone] Glucose Ql (U) Negative Normal Negative [facility] Comment on above: Performed By: #### U A ####[place] [address] [place] [phone] Hemoglobin/Blood,U r Negative Normal Negative [facility] Comment on above: Performed By: #### U A ####[place] [address] [place] [phone] Ketones Ql (U) 1+ Critically abnormal Negative [facility] Comment on above: Performed By: #### U A ####[place] [address] [place] [phone] Leukest Negative Normal Negative [facility] Comment on above: Performed By: #### U A ####[place] [address] [place] [phone] Nitrite Ql (U) Negative Normal Negative [facility] Comment on above: Performed By: #### U A ####[place] [address], [place] [phone] pH (U) 5.0 [pH] Normal 5.0-8.0 [facility] Comment on above: Performed By: #### U A ####[place] [address] [place] [phone] Protein, Urine Negative Normal Negative [facility] Comment on above: Performed By: #### U A ####[address] [phone] Specific [place], Ur 1.023 Normal 1.005-1.030 [facility] Comment on above: Performed By: #### U A ####[address] [phone] Urine Karl Comment SEE COMMENT Normal [facility] Comment on above: Result Comment: N/A Performed By: #### U A ####[address] [phone] Urobilinogen (U) [Mass/Vol] Negative Normal Negative [facility] Comment on above: Performed By: #### U A ####[address] [phone] APTTon 04-27-2021 aPTT Coag (Bld) [Time] 21.9 s Low 23.0-32.4 [facility] Comment on above: Result Comment: Unfr actionated Heparin Therapeutic Ranges: Standard Heparin Nomogram: 53 to 78 seconds (anti-Xa level of 0.3 to 0.7 U/ml) Low Dose/ACS Nomogram: 49 to 67 seconds (anti-Xa level of 0.2 to 0.5 U/ml) Stroke Treatment Nomogram: 49 to 67 seconds (anti-Xa level of 0.2 to 0.5 U/ml) Note: The APTT therapeutic range has been determined for the current lot of laboratory APTT reagent in use throughout the [facility]. Performed By: #### P HOS, CMP, PTT, CBC, MG1, PT ####[facility] [place], [place] [phone] CBCon 04-27-2021 Absolute nRBC <0.01 Normal <0.01 [facility] Comment on above: Performed By: #### P HOS, CMP, PTT, CBC, MG1, PT ####[facility] [place] [phone] Erythrocyte distribution width (RBC) [Ratio] 11.9 % Normal 11.5-15.0 [facility] Comment on above: Performed By: #### P HOS, CMP, PTT, CBC, MG1, PT ####[place] [address] [place] [phone] Hematocrit (Bld) [Volume fraction] 39.3 % Normal 36.0-46.0 [facility] Comment on above: Performed By: #### P HOS, CMP, PTT, CBC, MG1, PT ####[place] [address] [place] [phone] Hemoglobin (Bld) [Mass/Vol] 13.3 g/dL Normal 11.5-15.5 [facility] Comment on above: Performed By: #### P HOS, CMP, PTT, CBC, MG1, PT ####[place] [address] [place] [phone] MCH 31.0 pG Normal 26.0-34.0 [facility] Comment on above: Performed By: #### P HOS, CMP, PTT, CBC, MG1, PT ####[place] [address] [place] [phone] MCHC (RBC) [Mass/Vol] 33.8 g/dL Normal 30.5-36.0 [facility] Comment on above: Performed By: #### P HOS, CMP, PTT, CBC, MG1, PT ####[place] [address] [place] [phone] MCV (RBC) [Entitic vol] 91.6 fL Normal 80.0-100.0 [facility] Comment on above: Performed By: #### P HOS, CMP, PTT, CBC, MG1, PT ####[place] [address] [place] [phone] Platelet mean volume (Bld) [Entitic vol] 9.8 fL Normal 9.0-12.7 [facility] Comment on above: Performed By: #### P HOS, CMP, PTT, CBC, MG1, PT ####[place] [address], [place] [phone] Platelets (Bld) [#/Vol] 242 10*3/uL Normal 150-400 [facility] Comment on above: Performed By: #### P HOS, CMP, PTT, CBC, MG1, PT ####[place] [address], [place] [phone] RBC (Bld) [#/Vol] 4.29 10*6/uL Normal 3.90-5.20 [facility] Comment on above: Performed By: #### P HOS, CMP, PTT, CBC, MG1, PT ####[place] [address], [place] [phone] WBC (Bld) [#/Vol] 17.39 10*3/uL High 3.70-11.00 [facility] Comment on above: Performed By: #### P HOS, CMP, PTT, CBC, MG1, PT ####[place] [address], [place] [phone] Comp Metabolic Panelon 04-27 Albumin [Mass/Vol] 3.9 g/dL Normal 3.9-4.9 [facility] Comment on above: Performed By: #### P HOS, CMP, PTT, CBC, MG1, PT ####[place] [address], [place] [phone] ALP [Catalytic activity/Vol] 41 U/L Normal 34-123 [facility] Comment on above: Performed By: #### P HOS, CMP, PTT, CBC, MG1, PT ####[place] [address], [place] [phone] ALT [Catalytic activity/Vol] 26 U/L Normal 7-38 [facility] Comment on above: Performed By: #### P HOS, CMP, PTT, CBC, MG1, PT ####[address], [place] [phone] Anion gap [Moles/Vol] 10 mmol/L Normal 9-18 [facility] Comment on above: Performed By: #### P HOS, CMP, PTT, CBC, MG1, PT ####[address] [phone] AST [Catalytic activity/Vol] 63 U/L High 13-35 [facility] Comment on above: Performed By: #### P HOS, CMP, PTT, CBC, MG1, PT ####[address] [phone] Bilirubin [Mass/Vol] 0.5 mg/dL Normal 0.2-1.3 [facility] Comment on above: Performed By: #### P HOS, CMP, PTT, CBC, MG1, PT ####[address] [phone] Calcium [Mass/Vol] 8.6 mg/dL Normal 8.5-10.2 [facility] Comment on above: Performed By: #### P HOS, CMP, PTT, CBC, MG1, PT ####[address] [phone] Chloride [Moles/Vol] 109 mmol/L High 97-105 [facility] Comment on above: Performed By: #### P HOS, CMP, PTT, CBC, MG1, PT ####[address], [place] [phone] CO2 [Moles/Vol] 23 mmol/L Normal 22-30 [facility] Comment on above: Performed By: #### P HOS, CMP, PTT, CBC, MG1, PT ####[address], [place] [phone] Creatinine [Mass/Vol] 0.76 mg/dL Normal 0.58-0.96 [facility] Comment on above: Performed By: #### P HOS, CMP, PTT, CBC, MG1, PT ####[address] [phone] eGFR- Amer. >60 Normal [facility] Comment on above: Performed By: #### P HOS, CMP, PTT, CBC, MG1, PT ####[address] [phone] eGFR-All Other Races >60 Normal [facility] Comment on above: Result Comment: eGFR (Estimated GFR) Units of measure: mL/min/1.73 meters squared eGFR is derived from the reexpressed MDRD Study equation using the following parameters: serum creatinine, age, gender and race. The creatinine assay has been calibrated to be traceable to IDMS. An eGFR <60 mL/min/1.73m2 for >3 months is consistent with chronic kidney disease. Refer to KDOQI guidelines for clinical interpretation. In patients with unstable renal function, e.g. those with acute kidney injury, the eGFR may not accurately reflect actual GFR. Performed By: #### P HOS, CMP, PTT, CBC, MG1, PT ####[address] [phone] Glucose [Mass/Vol] 119 mg/dL High 74-99 [facility] Comment on above: Result Comment: The [place] [employer] Association (ADA) provides guidance for cutoff values for fasting glucose and random glucose. The ADA defines fasting as no caloric intake for at least 8 hours. Fasting plasma glucose results between 100 to 125 mg/dL indicate increased risk for diabetes (prediabetes). Fasting plasma glucose results greater than or equal to 126 mg/dL meet the criteria for diagnosis of diabetes. In the absence of unequivocal hyperglycemia, results should be confirmed by repeat testing. In a patient with classic symptoms of hyperglycemia or hyperglycemic crisis, random plasma glucose results greater than or equal to 200 mg/dL meet the criteria for diagnosis of diabetes. Reference: Standards of Medical Care in Diabetes 2016, [place] [employer]. Diabetes Care. 2016.39(Suppl 1). Performed By: #### P HOS, CMP, PTT, CBC, MG1, PT ####[address] [phone] Potassium [Moles/Vol] 4.0 mmol/L Normal 3.7-5.1 [facility] Comment on above: Performed By: #### P HOS, CMP, PTT, CBC, MG1, PT ####[address] [phone] Protein [Mass/Vol] 5.9 g/dL Low 6.3-8.0 [facility] Comment on above: Performed By: #### P HOS, CMP, PTT, CBC, MG1, PT ####[address] [phone] Sodium [Moles/Vol] 142 mmol/L Normal 136-144 [facility] Comment on above: Performed By: #### P HOS, CMP, PTT, CBC, MG1, PT ####[address] [phone] Urea nitrogen [Mass/Vol] 13 mg/dL Normal 7-21 [facility] Comment on above: Performed By: #### P HOS, CMP, PTT, CBC, MG1, PT ####[address] [phone] GASV + ALLon 04-27-2021 Base Excess 1 mmol/L Normal [facility] Comment on above: Performed By: #### V ALLBG ####[address] [phone] Blood Gas Comm, Ziyad . Normal [facility] Comment on above: Performed By: #### V ALLBG ####[address] [phone] Body temperature 98.6 [degF] Normal [facility] Comment on above: Performed By: #### V ALLBG ####[place] [address], [place] [phone] Calcium [Moles/Vol] 1.21 mmol/L Normal 1.08-1.30 [facility] Comment on above: Performed By: #### V ALLBG ####[address] [place] [phone] Carboxyhemoglobin, Ziyad 0.7 % Normal <2.1 [facility] Comment on above: Performed By: #### V ALLBG ####[place] [phone] CO2 [Moles/Vol] 29 mmol/L Normal 25-29 [facility] Comment on above: Performed By: #### V ALLBG ####[place] [phone] Glucose [Mass/Vol] 97 mg/dL Normal 60-105 [facility] Comment on above: Performed By: #### V ALLBG ####[place] [phone] HCO3 (Bld) [Moles/Vol] 27 mmol/L Normal 24-28 [facility] Comment on above: Performed By: #### V ALLBG ####[address] [phone] Hematocrit (Bld) [Volume fraction] 38.2 % Normal 36.0-46.0 [facility] Comment on above: Performed By: #### V ALLBG ####[address] [phone] Hemoglobin (Bld) [Mass/Vol] 12.4 g/dL Normal 11.5-15.5 [facility] Comment on above: Performed By: #### V ALLBG ####[place] [address] [phone] Lactate [Moles/Vol] 1.1 mmol/L Normal 0.5-2.2 [facility] Comment on above: Performed By: #### V ALLBG ####[place] [address], [place] [phone] Methemoglobin 0.7 % Normal <1.6 [facility] Comment on above: Performed By: #### V ALLBG ####[place] [address] [phone] O2 Administered 100% Normal [facility] Comment on above: Performed By: #### V ALLBG ####[place] [address] [phone] Oxyhemoglobin, Ziyad. 92 % High 60-85 [facility] Comment on above: Performed By: #### V ALLBG ####[place] [address] [phone] pCO2 53 mm Hg Normal 42-55 [facility] Comment on above: Performed By: #### V ALLBG ####[place] [address] [phone] pCO2, Temp Correct 53 mm Hg Normal 42-55 [facility] Comment on above: Performed By: #### V ALLBG ####[place] [address] [phone] pH (Bld) 7.33 [pH] Normal 7.32-7.42 [facility] Comment on above: Performed By: #### V ALLBG ####[place] [address] [phone] pH, Temp Corrected 7.33 Normal 7.32-7.42 [facility] Comment on above: Performed By: #### V ALLBG ####[place] [address], [place] [phone] pO2 70 mm Hg High 35-45 [facility] Comment on above: Performed By: #### V ALLBG ####[place] [address] [place], [place] [phone] pO2, Temp Corrected 70 mm Hg High 35-45 [facility] Comment on above: Performed By: #### V ALLBG ####[place] [address] [place] [phone] Potassium [Moles/Vol] 3.9 mmol/L Normal 3.5-5.0 [facility] Comment on above: Performed By: #### V ALLBG ####[place] [address] [place] [phone] Sodium [Moles/Vol] 143 mmol/L Normal 136-144 [facility] Comment on above: Performed By: #### V ALLBG ####[place] [address] [phone] Base Excess 0 mmol/L Normal [facility] Comment on above: Performed By: #### V ALLBG ####[place] [phone] Blood Gas Comm, Ziyad . Normal [facility] Comment on above: Performed By: #### V ALLBG ####[place] [address], [place] [phone] Body temperature 98.6 [degF] Normal [facility] Comment on above: Performed By: #### V ALLBG ####[place] [address], [place] [phone] Calcium [Moles/Vol] 1.22 mmol/L Normal 1.08-1.30 [facility] Comment on above: Performed By: #### V ALLBG ####[place] [address] [phone] Carboxyhemoglobin, Ziyad 0.6 % Normal <2.1 [facility] Comment on above: Performed By: #### V ALLBG ####[place] [address] [place], [place] [phone] CO2 [Moles/Vol] 27 mmol/L Normal 25-29 [facility] Comment on above: Performed By: #### V ALLBG ####[place] [address] [place] [phone] Glucose [Mass/Vol] 130 mg/dL High 60-105 [facility] Comment on above: Performed By: #### V ALLBG ####[place] [phone] HCO3 (Bld) [Moles/Vol] 26 mmol/L Normal 24-28 [facility] Comment on above: Performed By: #### V ALLBG ####[place] [address] [phone] Hematocrit (Bld) [Volume fraction] 42.7 % Normal 36.0-46.0 [facility] Comment on above: Performed By: #### V ALLBG ####[place] [phone] Hemoglobin (Bld) [Mass/Vol] 13.9 g/dL Normal 11.5-15.5 [facility] Comment on above: Performed By: #### V ALLBG ####[place] [address] [place] [phone] Lactate [Moles/Vol] 1.3 mmol/L Normal 0.5-2.2 [facility] Comment on above: Performed By: #### V ALLBG ####[place] [address], [place] [phone] Methemoglobin 1.1 % Normal <1.6 [facility] Comment on above: Performed By: #### V ALLBG ####[facility], [place] [phone] O2 Administered 100% Normal [facility] Comment on above: Performed By: #### V ALLBG ####[facility]CM[address], [place] [phone] Oxyhemoglobin, Ziyad. 88 % High 60-85 [facility] Comment on above: Performed By: #### V ALLBG ####[place] [address] [facility], [place] [phone] pCO2 49 mm Hg Normal 42-55 [facility] Comment on above: Performed By: #### V ALLBG ####[place] [address], [place] [phone] pCO2, Temp Correct 49 mm Hg Normal 42-55 [facility] Comment on above: Performed By: #### V ALLBG ####[place] [address] [phone] pH (Bld) 7.34 [pH] Normal 7.32-7.42 [facility] Comment on above: Performed By: #### V ALLBG ####[place] [address], [place] [phone] pH, Temp Corrected 7.34 Normal 7.32-7.42 [facility] Comment on above: Performed By: #### V ALLBG ####[facility]CM[address], [place] [phone] pO2 64 mm Hg High 35-45 [facility] Comment on above: Performed By: #### V ALLBG ####[facility]ClevelVar[address], [place] [phone] pO2, Temp Corrected 64 mm Hg High 35-45 [facility] Comment on above: Performed By: #### V ALLBG ####[facility], [place] [phone] Potassium [Moles/Vol] 4.1 mmol/L Normal 3.5-5.0 [facility] Comment on above: Performed By: #### V ALLBG ####[facility] [place], [place] [phone] Sodium [Moles/Vol] 142 mmol/L Normal 136-144 [facility] Comment on above: Performed By: #### V ALLBG ####[place] [address] [place], [place] [phone] Magnesiumon 04-27-2021 Magnesium [Mass/Vol] 2.2 mg/dL Normal 1.7-2.3 [facility] Comment on above: Performed By: #### P HOS, CMP, PTT, CBC, MG1, PT ####[place] [address] [place], [place] [phone] NURSING PROGon 04-27-2021 NURSING PROG HNO ID: [id number] Author: Jack Richards RN Service: Nursing Author Type: Registered Nurse Type: Nursing Progress Note Filed: 04/27/2021 10:46 PM Note Text: Nursing Progress: Topic: RESTRAINT NON-VIOLENT PATIENT NAME: Oscar Pineda PATIENT LOCATION: [place] [address] The patient demonstrates Lack of Understanding/Ability to Comply with Safety Directions as evidenced by the following behaviors pulling at ETT/central line which pose an imminent danger to self or others. The following interventions were attempted but were not effective in protecting the patient's safety: Medications Reviewed Next, a comprehensive assessment was performed and warranted placing the patient in Soft Bilateral Wrists, the least restrictive restraint needed to protect the patient's safety. Ongoing safety assessments and evaluation for earliest removal of restraints will be performed. DATE: April 27, 2021 TIME: 10:00 PM Jack Richards RN Normal [facility] NURSING PROG HNO ID: [id number] Author: Karsten Goldsmith RN Service: Nursing Author Type: Registered Nurse Type: Nursing Progress Note Filed: 04/27/2021 8:51 AM Note Text: Nursing Progress: Topic: RESTRAINT NON-VIOLENT PATIENT NAME: Oscar Pineda PATIENT LOCATION: [place] [address] The patient demonstrates Lack of Understanding/Ability to Comply with Safety Directions, Impulsive Behavior, Inability to be Redirected, Inability to Retain Information Regarding Safety Directions, Attempting to Remove Medical Devices Vital to Medical Stability as evidenced by the following behaviors pulling at ETT which pose an imminent danger to self or others. The following interventions were attempted but were not effective in protecting the patient's safety: Medications Reviewed, Modify Environment, Modify Equipment, Frequent Observation Next, a comprehensive assessment was performed and warranted placing the patient in Soft Bilateral Wrists, the least restrictive restraint needed to protect the patient's safety. Ongoing safety assessments and evaluation for earliest removal of restraints will be performed. DATE: April 27, 2021 TIME: 8:51 AM Karsten Goldsmith RN Normal [facility] Phosphoruson 04-27-2021 Phosphate [Mass/Vol] 3.3 mg/dL Normal 2.7-4.8 [facility] Comment on above: Performed By: #### P HOS, CMP, PTT, CBC, MG1, PT ####[facility] [address] [place], [place] [phone] Protimeon 04-27-2021 PT INR 1.1 Normal 0.9-1.3 [facility] Comment on above: Result Comment: Neha min K Antagonist (VKA) Therapeutic Range: INR 2 to 3 (Target INR of 2.5) Note: For patients treated with VKA drugs, such as warfarin, the [place] [employer] 2012 Guideline recommends a therapeutic INR range of 2 to 3 (target INR of 2.5). This recommendation includes high-risk patients with antiphospholipid syndrome with previous arterial or venous thromboembolism, current-generation mechanical or bioprosthetic aortic heart valve replacement. Note: Patients with mechanical aortic valve replacement and additional risk factors for thromboembolic events (atrial fibrillation, previous thromboembolism, LV dysfunction, hypercoagulable conditions) or an older generation mechanical AVR (i.e., ball in-Cage) or any mechanical MVR should have a INR therapeutic range of 2.5 to 3.5 (target INR of 3). Deep PRIETO, et al. Chest 2012, 141:7S-47S Daphne RA, et al. [facility] 2017, 70: 252-289 Performed By: #### P HOS, CMP, PTT, CBC, MG1, PT ####[facility] [place], [place] [phone] PT Sec 11.2 sec Normal 9.7-13.0 [facility] Comment on above: Performed By: #### P HOS, CMP, PTT, CBC, MG1, PT ####[facility] [place], [place] [phone] US ABDOMEN LTDon 04-27-2021 US ABDOMEN LTD * * *Final Report* * * DATE OF EXAM: Apr 27 2021 12:24PM [facility] 1064 - US ABDOMEN LTD / PROCEDURE REASON: Air embolism (traumatic) * * * * Physician Interpretation * * * * EXAM: US ABDOMEN LTD EXAM DATE: 04/27/2021 12:24 PM CLINICAL HISTORY: Evaluate for air in the IVC or hepatic veins. 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 During the procedure none known amount of air (estimated 50-70 cc) was inadvertently injected into the IVC. Bedside echo showed no right heart strain or presence of air.) COMPARISON: MRI abdomen 02/28/2021 TECHNIQUE: Limited ultrasound examination of the abdomen was performed. Images were obtained and stored in a permanent archive. RESULT: No sonographic or Doppler waveform evidence of air within the hepatic veins or visualized IVC. No gross hepatic lesions or abnormality seen on this limited exam. IMPRESSION: No sonographic or Doppler waveform evidence of air within the hepatic veins or visualized IVC. General Laborer: PSCB Transcribe Date/Time: Apr 27 2021 12:34P Dictated by : POONAM BLUM MD This examination was interpreted and the report reviewed and electronically signed by: ALICIA MENDOZA MD on Apr 27 2021 2:57PM EST [id number] Normal [facility] XR CHEST 1V FRONTALon 2020 XR CHEST 1V FRONTAL * * *Final Report* * * DATE OF EXAM: Apr 27 2021 9:38AM GILDARD[facility] 5290 - XR CHEST 1V FRONTAL / PROCEDURE REASON: Post-operative / post-procedure assessment, asymptomatic * * * * Physician Interpretation * * * * EXAMINATION: CHEST RADIOGRAPH (PORTABLE SINGLE VIEW AP) Exam Date/Time: 04/27/2021 9:38 AM Clinical History: Post-operative / post-procedure assessment, asymptomatic MQ: [id number] Comparison: 1 day prior RESULT: Lines, tubes, and devices: The tip of an endotracheal tube is above the adi. A right IJ catheter terminates in the mid aspect of the SVC. Lungs and pleura: Mild bibasilar opacities are probably secondary to atelectasis. No substantial pleural effusion or focal consolidation. There is vascular congestion without overt pulmonary edema. No substantial pneumothorax. Cardiomediastinal silhouette: Stable cardiomediastinal silhouette. Other: . IMPRESSION: See result. General Laborer: ANEL Transcribe Date/Time: Apr 27 2021 10:29A Dictated by : TAYLOR CORONA MD This examination was interpreted and the report reviewed and electronically signed by: TAYLOR CORONA MD on Apr 27 2021 10:31AM EST [id number] Normal [facility] ANES [place] 04-26-2021 ANES POST HNO ID: [id number] Author: Tamara Brown DO Service: Anesthesiology Author Type: Anesthesiologist Type: Anesthesia PostOp Filed: 04/26/2021 2:30 PM Note Text: POST ANESTHESIA EVALUATION NOTE SERVICE DATE: 04/26/2021 SERVICE TIME: 2:26 PM : 1985 Vitals: 04/26/21 0707 04/26/21 1217 Temp: 36.7 ?C (98 ?F) 36.9 ?C (98.4 ?F) 04/26/21 0707 04/26/21 1245 04/26/21 1300 04/26/21 1315 BP: 134/82 124/65 170/71 109/59 04/26/21 1245 04/26/21 1300 04/26/21 1315 04/26/21 1330 Pulse: 69 77 60 (!) 52 04/26/21 1245 04/26/21 1300 04/26/21 1315 04/26/21 1330 Resp: 17 (!) 41 16 16 04/26/21 1245 04/26/21 1300 04/26/21 1315 04/26/21 1330 SpO2: 99% 99% 99% 100% Validated Vital Signs: Yes POST ANES STATUS: PACU/ICU Patient Condition: Stable at the time of transfer Neurological Status: sedated Pulmonary Status: Intubated. Airway Control: Remained intubated on transport to SICU Cardiovascular Status: Cautiously stable Pain: Adequately controlled Postoperative Nausea/Vomiting: No significant post operative nausea or vomiting Postoperative Hydration Status: Adequate. Intra-Operative Events: No Significant Anesthesia Events, however due to inadvertent venous air during the procedure, patient electively remained intubated. Anesthetic Complications: None Recommendation: SICU Other Remarks: SIGNATURE: Tamara Brown DO PATIENT NAME: Oscar Pineda DATE: April 26, 2021 TIME: 2:26 PM PAGER/CONTACT #: [phone] Normal [facility] APTTon 04-26-2021 aPTT Coag (Bld) [Time] 22.2 s Low 23.0-32.4 [facility] Comment on above: Result Comment: Unfr actionated Heparin Therapeutic Ranges: Standard Heparin Nomogram: 53 to 78 seconds (anti-Xa level of 0.3 to 0.7 U/ml) Low Dose/ACS Nomogram: 49 to 67 seconds (anti-Xa level of 0.2 to 0.5 U/ml) Stroke Treatment Nomogram: 49 to 67 seconds (anti-Xa level of 0.2 to 0.5 U/ml) Note: The APTT therapeutic range has been determined for the current lot of laboratory APTT reagent in use throughout the [facility]. Performed By: #### C BC, MG1, PT, PTT, BMP, PHOS ####[facility] [place], [place] [phone] BRIEF OP NOTon 04-26-2021 BRIEF OP NOT HNO ID: [id number] Author: Kayce Ricardo MD Service: Radiology Author Type: Physician Type: Brief Op Note Filed: 04/26/2021 3:28 PM Note Text: BRIEF OPERATIVE / PROCEDURE NOTE LOG ID: [id number] SURGERY/PROCEDURE DATE: 04/26/2021 INCISION/PROCEDURE START TIME: 9:25 AM INCISION CLOSE/PROCEDURE END TIME: 11:20 AM SURGEON(S)/PROCEDURALIS T(S) AND ELA TEACHER(S): Surgeon(s) and Role: * Kayce Ricardo MD - Primary No Additional Staff SURGERY/PROCEDURE(S): CT guided cryoablation of a 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 Additional scans during the procedure demonstrated air in the hepatic veins, with only few miniscule foci of air identified in the the right atrium and right ventricle without sizable air emobolis identified in the chest otherwise. The patient had no cardiovascular compromise during the procedure. The cryoablation was completed. The patient was put into trendelenburg position as soon as possible once off of the CT table. The patient was admitted to the SICU for further management. PRE-OP/PRE-PROCEDURE DIAGNOSIS: Desmoid tumor right rectus abdominis POST-OP/POST-PROCEDURE DIAGNOSIS: Same as Preop SIGNATURE: Kayce Ricardo MD PATIENT NAME: Oscar Pineda DATE: April 26, 2021 TIME: 2:59 PM [phone] Normal [facility] Basic Metabolic Panlon 04-26 Anion gap [Moles/Vol] 11 mmol/L Normal 9-18 [facility] Comment on above: Performed By: #### C BC, MG1, PT, PTT, BMP, PHOS ####[facility] [address] [place], [place] [phone] Calcium [Mass/Vol] 8.3 mg/dL Low 8.5-10.2 [facility] Comment on above: Performed By: #### C BC, MG1, PT, PTT, BMP, PHOS ####[facility] [address] [place], [place] [phone] Chloride [Moles/Vol] 107 mmol/L High 97-105 [facility] Comment on above: Performed By: #### C BC, MG1, PT, PTT, BMP, PHOS ####[place] [address] [place] [phone] CO2 [Moles/Vol] 22 mmol/L Normal 22-30 [facility] Comment on above: Performed By: #### C BC, MG1, PT, PTT, BMP, PHOS ####[place] [address] [phone] Creatinine [Mass/Vol] 0.74 mg/dL Normal 0.58-0.96 [facility] Comment on above: Performed By: #### C BC, MG1, PT, PTT, BMP, PHOS ####[place] [address] [phone] eGFR- Amer. >60 Normal [facility] Comment on above: Performed By: #### C BC, MG1, PT, PTT, BMP, PHOS ####[place] [address] [place] [phone] eGFR-All Other Races >60 Normal [facility] Comment on above: Result Comment: eGFR (Estimated GFR) Units of measure: mL/min/1.73 meters squared eGFR is derived from the reexpressed MDRD Study equation using the following parameters: serum creatinine, age, gender and race. The creatinine assay has been calibrated to be traceable to IDMS. An eGFR <60 mL/min/1.73m2 for >3 months is consistent with chronic kidney disease. Refer to KDOQI guidelines for clinical interpretation. In patients with unstable renal function, e.g. those with acute kidney injury, the eGFR may not accurately reflect actual GFR. Performed By: #### C BC, MG1, PT, PTT, BMP, PHOS ####[place] [address] [phone] Glucose [Mass/Vol] 178 mg/dL High 74-99 [facility] Comment on above: Result Comment: The [place] [employer] (ADA) provides guidance for cutoff values for fasting glucose and random glucose. The ADA defines fasting as no caloric intake for at least 8 hours. Fasting plasma glucose results between 100 to 125 mg/dL indicate increased risk for diabetes (prediabetes). Fasting plasma glucose results greater than or equal to 126 mg/dL meet the criteria for diagnosis of diabetes. In the absence of unequivocal hyperglycemia, results should be confirmed by repeat testing. In a patient with classic symptoms of hyperglycemia or hyperglycemic crisis, random plasma glucose results greater than or equal to 200 mg/dL meet the criteria for diagnosis of diabetes. Reference: Standards of Medical Care in Diabetes 2016, [place] [employer]. Diabetes Care. 2016.39(Suppl 1). Performed By: #### C BC, MG1, PT, PTT, BMP, PHOS ####[place] [address], [place] [phone] Potassium [Moles/Vol] 4.1 mmol/L Normal 3.7-5.1 [facility] Comment on above: Performed By: #### C BC, MG1, PT, PTT, BMP, PHOS ####[place] [address], [place] [phone] Sodium [Moles/Vol] 140 mmol/L Normal 136-144 [facility] Comment on above: Performed By: #### C BC, MG1, PT, PTT, BMP, PHOS ####[place] [address], [place] [phone] Urea nitrogen [Mass/Vol] 14 mg/dL Normal 7-21 [facility] Comment on above: Performed By: #### C BC, MG1, PT, PTT, BMP, PHOS ####[place] [address], [place] [phone] CBCon 04-26-2021 Absolute nRBC <0.01 Normal <0.01 [facility] Comment on above: Performed By: #### C BC, MG1, PT, PTT, BMP, PHOS ####[place] [id number], [place] [phone] Erythrocyte distribution width (RBC) [Ratio] 11.9 % Normal 11.5-15.0 [facility] Comment on above: Performed By: #### C BC, MG1, PT, PTT, BMP, PHOS ####[place] [address], [place] [phone] Hematocrit (Bld) [Volume fraction] 38.5 % Normal 36.0-46.0 [facility] Comment on above: Performed By: #### C BC, MG1, PT, PTT, BMP, PHOS ####[place] [address], [place] [phone] Hemoglobin (Bld) [Mass/Vol] 13.2 g/dL Normal 11.5-15.5 [facility] Comment on above: Performed By: #### C BC, MG1, PT, PTT, BMP, PHOS ####[place] [address] [phone] MCH 31.7 pG Normal 26.0-34.0 [facility] Comment on above: Performed By: #### C BC, MG1, PT, PTT, BMP, PHOS ####[place] [address] [phone] MCHC (RBC) [Mass/Vol] 34.3 g/dL Normal 30.5-36.0 [facility] Comment on above: Performed By: #### C BC, MG1, PT, PTT, BMP, PHOS ####[place] [address], [place] [phone] MCV (RBC) [Entitic vol] 92.3 fL Normal 80.0-100.0 [facility] Comment on above: Performed By: #### C BC, MG1, PT, PTT, BMP, PHOS ####[place] [address], [place] [phone] Platelet mean volume (Bld) [Entitic vol] 9.6 fL Normal 9.0-12.7 [facility] Comment on above: Performed By: #### C BC, MG1, PT, PTT, BMP, PHOS ####[facility] [place], [place] [phone] Platelets (Bld) [#/Vol] 227 10*3/uL Normal 150-400 [facility] Comment on above: Performed By: #### C BC, MG1, PT, PTT, BMP, PHOS ####[facility] [place], [place] [phone] RBC (Bld) [#/Vol] 4.17 10*6/uL Normal 3.90-5.20 [facility] Comment on above: Performed By: #### C BC, MG1, PT, PTT, BMP, PHOS ####[place] [id number] [place], [place] [phone] WBC (Bld) [#/Vol] 17.98 10*3/uL High 3.70-11.00 [facility] Comment on above: Performed By: #### C BC, MG1, PT, PTT, BMP, PHOS ####[facility] [place], [place] [phone] CONSULTon 04-26-2021 CONSULT HNO ID: [id number] Author: Jose M Cedillo MD Service: Interventional Radiology Author Type: Physician Type: Consults Filed: 04/26/2021 6:13 PM Note Text: CONSULT HISTORY AND PHYSICAL SERVICE DATE: 04/26/2021 SERVICE TIME: 1505 is being seen in consultation at the request of Dr. Reyna for advice and/or opinion regarding the management of IVC/hepatic veins air embolism following an MSK anterior abdominal wall cryoablation. ASSESSMENT AND PLAN: 35 F with iatrogenic air embolism of the IVC and hepatic veins during CT-guided RLQ anterior abdominal wall mass cryoablation. The patient's plan of care was discussed with Dr. Reyna. Given the patient's tenuous circumstances with a large amount of air in the IVC and hepatic veins, continued Trendelenburg and left lateral decubitus positioning is recommended to prevent air embolism to pulmonary arteries. The patient continues to be hemodynamically stable in this position in the ICU. The ICU team will continue to monitor for now. If there is any concern for pulmonary air embolism/decompensation , possible IR intervention can be re-entertained. The team will place a central line for now for access while the patient is stable. Should IR intervention be pursued, the central line can be used for possible right atrial access/air aspiration. HPI: Opinion/advice regarding: Iatrogenic air embolism to the IVC and hepatic veins PAST MEDICAL HISTORY: PAST MEDICAL HISTORY Diagnosis Date - Migraines - Miscarriage 04/2020 PAST SURGICAL HISTORY: PAST SURGICAL HISTORY Procedure Laterality Date - SECTION HX x 3 - EXTRACTION ERUPTED TOOTH/EXR FAMILY HISTORY: FAMILY HISTORY Problem Relation Age of Onset - Depression Mother - Crohn's Disease Sister - Diabetes Sister - Multiple Sclerosis Maternal Grandmother - Stroke Paternal Grandmother - COPD Paternal Grandmother - Emphysema Paternal Grandmother - Pancreatic Cancer Paternal Grandfather - Breast Cancer Maternal Aunt SOCIAL HISTORY: Social History Tobacco Use - Smoking status: Never Smoker - Smokeless tobacco: Never Used Substance Use Topics - Alcohol use: Not on file - Drug use: Not on file MEDICATIONS: Prior to Admission Medications: Collagenase powd OTC NUTRITIONAL SUPPLEMENT 25/iron fum/folic/dha (-1 ORAL) Take by mouth. amino acids-whey prot conc,iso (WHEY PROTEIN) 20 gram-140 kcal/39 gram powd Take by mouth. Current Facility-Administered Medications Medication Dose Route Frequency - ondansetron (PF) 2-4 mg injection (ZOFRAN) 2-4 mg INTRAVENOUS q 6 H PRN - potassium chloride 20-40 mEq oral powder (KLOR-CON) 20-40 mEq ORAL/FEEDING TUBE PRN Or - potassium chloride ER 20-40 mEq tab(s) (K-DUR, KLOR-CON) 20-40 mEq ORAL PRN Or - potassium chloride iv piggyback 20 mEq/100 mL 20 mEq INTRAVENOUS PRN - magnesium sulfate in sterile water 2 g in sterile water 50 ml 2 g INTRAVENOUS PRN - phosphorus 500 mg tab(s) (K PHOS NEUTRAL) 500 mg ORAL/FEEDING TUBE PRN - NaCl 0.9% iv flush bag 20 mL INTRAVENOUS PRN - sodium chloride 0.9 % (flush) 3-5 mL (BD POSIFLUSH) 3-5 mL INTRAVENOUS q 12 H - lactated ringers iv infusion 50 mL/hr INTRAVENOUS CONTINUOUS - famotidine 20 mg injection (PEPCID) 20 mg INTRAVENOUS BID - Chlorhexidine Gluconate 0.12 % 15 mL (PERIDEX) 15 mL ORAL QID - propofol infusion (DIPRIVAN) 5-80 mcg/kg/min (Order-Specific) INTRAVENOUS CONTINUOUS - fentaNYL 50 mcg/mL 50-100 mcg injection (SUBLIMAZE) 50-100 mcg INTRAVENOUS q 2 H PRN ALLERGIES: Codeine and Adhesive Tape-Silicones COMPLETE REVIEW OF SYSTEMS: Unable to assess; pt sedated PHYSICAL EXAM: Patient Vitals for the past 24 hrs: BP Temp Temp src Pulse Resp SpO2 Weight 04/26/21 1700 105/63 ? ? (!) 48 15 100 % ? 04/26/21 1645 104/62 ? ? (!) 47 14 100 % ? 04/26/21 1630 103/63 ? ? (!) 46 14 100 % ? 04/26/21 1615 103/63 ? ? (!) 46 19 100 % ? 04/26/21 1610 ? 36.4 ?C (97.5 ?F) Oral (!) 57 16 ? ? 04/26/21 1600 109/63 ? ? (!) 51 14 100 % ? 04/26/21 1545 105/61 ? ? (!) 45 15 100 % ? 04/26/21 1530 104/64 ? ? (!) 46 14 100 % ? 04/26/21 1515 105/63 ? ? (!) 46 15 100 % ? 04/26/21 1500 104/61 ? ? (!) 47 15 100 % ? 04/26/21 1445 102/60 ? ? (!) 47 15 100 % ? 04/26/21 1430 103/57 ? ? (!) 50 15 100 % ? 04/26/21 1415 97/52 ? ? (!) 52 15 100 % ? 04/26/21 1400 96/54 ? ? (!) 52 14 100 % ? 04/26/21 1345 99/56 ? ? (!) 51 14 99 % ? 04/26/21 1330 107/55 ? ? (!) 52 16 100 % ? 04/26/21 1315 109/59 ? ? 60 16 99 % ? 04/26/21 1300 170/71 ? ? 77 (!) 41 99 % ? 04/26/21 1245 124/65 ? ? 69 17 99 % ? 04/26/21 1242 ? ? ? 76 13 ? ? 04/26/21 1230 132/70 ? ? 69 17 99 % ? 04/26/21 1217 ? 36.9 ?C (98.4 ?F) Oral ? ? ? 71.6 kg (157 lb 13.6 oz) 04/26/21 0707 134/82 36.7 ?C (98 ?F) Oral (!) 59 18 99 % ? General Appearance: sedated Lungs: intubated Heart: RRR Abdomen: soft; non-tender Jose M Cedillo MD SIGNATURE: Jose M Cedillo MD PATIENT NAME: Oscar BRITTON (more content not included)... Normal [facility] CONSULT HNO ID: [id number] Author: Oneida Ruano MD Service: Cardiovascular Medicine Author Type: Physician Type: Consults Filed: 04/27/2021 2:36 PM Note Text: [facility]ICINE CONSULT NOTE Oscar Pineda [id number] CONSULTING SERVICE: SICU DATE OF ADMISSION: 04/26/2021 DATE OF CONSULT: 04/26/2021 REASON FOR CONSULT: air in IVC HISTORY OF PRESENT ILLNESS: Oscar pineda is a 35-year-old female who we have been consulted for assistance with air in her inferior vena cava. History is unable to be obtained from the patient as she is currently intubated and sedated. But from other caregivers, she has a otherwise healthy who had a desmoid tumor in her abdominal wall which she was undergoing biopsy from interventional radiology today. During the procedure, there was an unknown amount of air inadvertently injected into her portal vein. Because of this complication, she was subsequently transferred to the surgical intensive care unit for monitoring post procedure. PAST MEDICAL HISTORY: PAST MEDICAL HISTORY Diagnosis Date Migraines Miscarriage 04/2020 PAST SURGICAL HISTORY Procedure Laterality Date SECTION HX x 3 EXTRACTION ERUPTED TOOTH/EXR FAMILY HISTORY: FAMILY HISTORY Problem Relation Age of Onset Depression Mother Crohn's Disease Sister Diabetes Sister Multiple Sclerosis Maternal Grandmother Stroke Paternal Grandmother COPD Paternal Grandmother Emphysema Paternal Grandmother Pancreatic Cancer Paternal Grandfather Breast Cancer Maternal Aunt SOCIAL HISTORY: Social History Tobacco Use Smoking status: Never Smoker Smokeless tobacco: Never Used Substance Use Topics Alcohol use: Not on file Drug use: Not on file NOTABLE HOME MEDICATIONS: Collagenase powd OTC NUTRITIONAL SUPPLEMENT 25/iron fum/folic/dha (-1 ORAL) Take by mouth. amino acids-whey prot conc,iso (WHEY PROTEIN) 20 gram-140 kcal/39 gram powd Take by mouth. INPATIENT MEDICATIONS: Current Facility-Administered Medications Medication Dose Route Frequency potassium chloride 20-40 mEq oral powder (KLOR-CON) 20-40 mEq ORAL/FEEDING TUBE PRN Or potassium chloride ER 20-40 mEq tab(s) (K-DUR, KLOR-CON) 20-40 mEq ORAL PRN Or potassium chloride iv piggyback 20 mEq/100 mL 20 mEq INTRAVENOUS PRN magnesium sulfate in sterile water 2 g in sterile water 50 ml 2 g INTRAVENOUS PRN phosphorus 500 mg tab(s) (K PHOS NEUTRAL) 500 mg ORAL/FEEDING TUBE PRN NaCl 0.9% iv flush bag 20 mL INTRAVENOUS PRN sodium chloride 0.9 % (flush) 3-5 mL (BD POSIFLUSH) 3-5 mL INTRAVENOUS q 12 H lactated ringers iv infusion 5-30 mL/hr INTRAVENOUS CONTINUOUS famotidine 20 mg injection (PEPCID) 20 mg INTRAVENOUS BID Chlorhexidine Gluconate 0.12 % 15 mL (PERIDEX) 15 mL ORAL QID dexmedeTOMIDine 400 mcg in NaCl 0.9% 100 mL (PRECEDEX) 0.4 mcg/kg/hr (Order-Specific) INTRAVENOUS CONTINUOUS propofol infusion (DIPRIVAN) 5-60 mcg/kg/min (Order-Specific) INTRAVENOUS CONTINUOUS fentaNYL 50 mcg/mL 100 mcg injection (SUBLIMAZE) 100 mcg INTRAVENOUS q 2 H PRN ALLERGIES: ALLERGIES Allergen Reactions Codeine GI Upset Adhesive Tape-Silic* Other: See Comments Blisters REVIEW OF SYSTEMS A complete review of systems was obtained as part of the Consult. Please see the HPI for pertinent positives. Those not mentioned in the HPI were reviewed and non-contributory to the patient's current presentation. PHYSICAL EXAM BP 109/59 Pulse (!) 52 Temp 36.9 ?C (98.4 ?F) (Oral) Resp 16 Wt 71.6 kg (157 lb 13.6 oz) LMP 04/18/2021 SpO2 100% BMI 27.96 kg/m? General: Currently in Trendelenburg, intubated, extremely agitated and thrashing with multiple nurses holding her down Cardiovascular: Tachycardic and regular Pulmonary: Intubated Abdomen: Soft, non-tender, non-distended. Extremities: Warm and well-perfused. No lower extremity oedema. Radial pulses 2+ and symmetric. DP pulses 2+ and symmetric. Neurologic: Intubated and sedated IMPRESSION AND RECOMMENDATIONS: Oscar Pineda is a 35-year-old female who presented for a planned IR biopsy of her desmoid tumor who had an unknown amount of air inadvertently injected into her venous system. Upon review of her intraprocedural images, she has quite a large amount of air in her IVC, portal vein system, as well as her SVC, in addition on series 8 there appears to be some air within her right ventricle. In this scenario, with small amounts of air this is usually easier to absorb by her pulmonary capillary circulation however given the large amount of air there is a potential for a large bolus to enter into her pulmonary circulation causing cardiovascular collapse. In addition, if the amount of air introduced into the pulmonary circulation exceeds the ability for gas exchange to occur there could be arterialization of the air with subsequent systemic embolization. Active Cardiovascular Problems: # (more content not included)... Normal [facility] CT ABLATION MSK NOT BONE ALDO ORon 04-26-2021 CT ABLATION MSK NOT BONE TUMOR * * *Final Report* * * * * * SEE BOTTOM OF REPORT FOR ADDENDED TEXT * * * DATE OF EXAM: Apr 26 2021 11:24AM [facility] 2066 - CT ABLATION MSK NOT BONE TUMOR / PROCEDURE REASON: [id number] and pelvic swelling, mass and lump, unspecified site * * * * Physician Interpretation * * * * * * * * * * * * ORIGINAL REPORT * * * * * * * * CT GUIDED RIGHT RECTUS ABDOMINIS TUMOR CRYOABLATION. INDICATION: The patient is a 35 years old Female who presented with a desmoid tumor of the right rectus abdominis for cryoablation under general anesthesia.. CONSENT: The risks, benefits, treatment options, potential complications and personnel to be involved were discussed (including the risks of radiation exposure, contrast and anesthesia administration) with the All questions were answered and consent was obtained from the patient. The patient indicated willingness to proceed. GENERAL: a) Medications and allergies were reviewed and reconciled. b) Pre-procedure Sign-in: Safety Checklist Performed Yes c) Positioning: supine on the table. d) Time Out: A time out was performed immediately prior to procedure start with the nursing, anesthesia and interventional team, correctly identifying the patient name, date of , procedure, anatomy (including marking of site and side), patient position, procedure consent form, relevant diagnostic and radiology test results, antibiotic administration, safety precautions, and procedure-specific equipment needs. Time Out Time: General anesthesia induction 08 Procedure Start and End Time: 924 and 1119 Anesthesia / Sedation End Time: General anesthesia e) Anesthesia Type: general anesthesia. Local anesthesia: 5 mL 1% lidocaine. f) Patient monitoring: Anesthesia team PRE-PROCEDURE IMAGING: The lesion was identified on imaging prior to the start of the procedure for planning purposes. PROCEDURE: a) Procedure Details: The area was marked, prepped, and draped. A lateral approach was used. First, a trocar needle was advanced along the deep aspect of the rectus abdominis wall. Attempt was made to position the trocar needle behind the inferior epigastric vessels. First, 10 mL of air was injected. The needle was repositioned several times to displace the rectus abdominis wall from the bowel in the peritoneum. Some of the air was delivered only intraperitoneal and some of the air was along the rectus sheath deeper aspect. After approximately a total of 90 mL of air was administered for soft tissue pneumodissection, air was identified in the inferior vena cava. The procedure was temporarily halted, and a scan of the abdomen and chest was performed, demonstrating that air was present in the inferior vena cava, hepatic veins, and some of the smaller branches, notably, the inferior epigastric vessels. In the chest, there was only a miniscule amount of air identified with diffuse foci in the right atrium and right ventricle. Interdepartmental consultation was performed. The decision was made to complete the procedure as the patient remained stable with regards to her cardiovascular monitoring. With 20 mL of additional air, successful separation was achieved between the rectus abdominis and the underlying bowel. 3 cryoablation probes were advanced into the desmoid tumor through a lateral approach. Atypical cryoablation sequence of 10 minutes freeze, 8 minute thaw, and 10 minute freeze was performed, yielding excellent results. The needles were removed. There is minimal redness of the skin overlying the area of freezing, however the ice pulmonary extended into the subcutaneous tissues. Images were stored. b) Estimated Blood Loss: <5 mL c) Devices used: 3 cryoablation probes. 1 trocar needle. d) Number and Type of Removed Specimens: None RADIATION DOSE a) Image guidance: CT guidance b) Radiation: CT Radiation dose: Integrated Dose-length product (DLP) for this visit = 3657 mGy*cm. CT Dose Reduction Employed: Automated exposure control (AEC) POST PROCEDURE: a) Hemostasis: Hemostasis was achieved using light manual compression. b) Sign-out: Communication Performed Yes, to SICU team c) Conclusion: The patient was transferred to the SICU in stable condition. COMPLICATIONS: a) Significant Patient Complication: Air embolized to inferior vena cava during needle pneumodissection of the abdominal wall and peritoneum, likely via right inferior epigastric vessels. Additional scans during the procedure demonstrated air in the hepatic veins, with only few miniscule foci of air identified in the the right atrium and right ventricle without sizable air embolus identified in the chest otherwise. The patient had no cardiovascular compromise during the procedure. The cryoablation was completed. The patient was put into Trendelenburg position as soon as possible once off of the CT table. The patient was admitted to the SICU for fur (more content not included)... Normal [facility] CT BRAIN WO IVCONon 04-26-[address] BRAIN WO IVCON * * *Final Report* * * DATE OF EXAM: Apr 26 2021 1:45PM [facility] 0504 - CT BRAIN WO IVCON / PROCEDURE REASON: Air embolism (traumatic) * * * * Physician Interpretation * * * * EXAMINATION: CT BRAIN WO IVCON CLINICAL HISTORY: Air embolism. TECHNIQUE: Serial axial images without IV contrast were obtained from the vertex to the foramen magnum. Portable examination. MQ: [id number] CT Radiation dose: Integrated Dose-Length Product (DLP) for this visit = 660 mGy*cm CT Dose Reduction Employed: No dose reduction techniques were required COMPARISON: None. RESULT: Kitchen Stewardess (topogram) images: Endotracheal tube. Post-operative change: None. Acute change: No evidence of an acute infarct or other acute parenchymal process. Hemorrhage: No evidence of acute intracranial hemorrhage. ECASS hemorrhagic transformation score: Not Applicable Mass Lesion / Mass Effect: There is no evidence of an intracranial mass or extraaxial fluid collection. No significant mass effect. Chronic change: None apparent. Parenchyma: There is no significant volume loss. The brain parenchyma is otherwise within normal limits for age. Ventricles: The ventricles are within normal limits of size and configuration for age. Paranasal sinuses and skull base: The visualized paranasal sinuses are grossly clear. The skull base and imaged soft tissues are unremarkable. IMPRESSION: Portable head CT demonstrating no acute findings. General Laborer: PSCB Transcribe Date/Time: Apr 26 2021 1:56P Dictated by : MARIA L SCHMIDT MD This examination was interpreted and the report reviewed and electronically signed by: MARIA L SCHMIDT MD on Apr 26 2021 1:58PM EST [id number] Normal [facility] Confirm Blood Typeon 021 ABO/RH(D) Positive Normal [facility] Comment on above: Performed By: #### C ONABO ####[place] [phone] Performed By: #### T SCR ####[place] [phone] Expedited [id number] 04-26-20 21 SARS-CoV-2 (COVID-19) RNA ROX+probe Ql (Unsp spec) UPPER RESPIRATORY TRACT SWAB Normal [facility] Comment on above: Performed By: #### E XCOVD ####[place] [phone] SARS-CoV-2 (COVID-19) RNA ROX+probe Ql (Unsp spec) Negative for COVID19 (SARS CoV2) by RT-PCR or equivalent method. Normal Negative for COVID19 (SARS CoV2) by RT-PCR or equivalent method. [facility] Comment on above: Result Comment: This test has been authorized by FDA under an Emergency Use Authorization (EUA). Test performed by [facility], [facility] [place], [address] [address]. Performed By: #### E XCOVD ####[address], [place] [phone] GASV + ALLon 04-26-2021 Base Excess Negative Normal [facility] Comment on above: Performed By: #### V ALLBG ####[place] [address] [place], [place] [phone] Blood Gas Comm, Ziyad .VENOUS Normal [facility] Comment on above: Performed By: #### V ALLBG ####[address] [place], [place] [phone] Body temperature 98.6 [degF] Normal [facility] Comment on above: Performed By: #### V ALLBG ####[address] [phone] Calcium [Moles/Vol] 1.23 mmol/L Normal 1.08-1.30 [facility] Comment on above: Performed By: #### V ALLBG ####[address] [phone] Carboxyhemoglobin, Ziyad 0.9 % Normal <2.1 [facility] Comment on above: Performed By: #### V ALLBG ####[place] [address], [place] [phone] CO2 [Moles/Vol] 27 mmol/L Normal 25-29 [facility] Comment on above: Performed By: #### V ALLBG ####[place] [address] [place], [place] [phone] Glucose [Mass/Vol] 144 mg/dL High 60-105 [facility] Comment on above: Performed By: #### V ALLBG ####[place] [address] [place], [place] [phone] HCO3 (Bld) [Moles/Vol] 25 mmol/L Normal 24-28 [facility] Comment on above: Performed By: #### V ALLBG ####[place] [address] [phone] Hematocrit (Bld) [Volume fraction] 43.2 % Normal 36.0-46.0 [facility] Comment on above: Performed By: #### V ALLBG ####[place] [id number] [place] [phone] Hemoglobin (Bld) [Mass/Vol] 14.1 g/dL Normal 11.5-15.5 [facility] Comment on above: Performed By: #### V ALLBG ####[place] [address] [phone] Lactate [Moles/Vol] 2.0 mmol/L Normal 0.5-2.2 [facility] Comment on above: Performed By: #### V ALLBG ####[place] [address] [phone] Methemoglobin 0.7 % Normal <1.6 [facility] Comment on above: Performed By: #### V ALLBG ####[place] [address] [phone] O2 Administered 100% Normal [facility] Comment on above: Performed By: #### V ALLBG ####[place] [address] [phone] Oxyhemoglobin, Ziyad. 81 % Normal 60-85 [facility] Comment on above: Performed By: #### V ALLBG ####[facility] [phone] pCO2 53 mm Hg Normal 42-55 [facility] Comment on above: Performed By: #### V ALLBG ####[place] [id number] [place] [phone] pCO2, Temp Correct 53 mm Hg Normal 42-55 [facility] Comment on above: Performed By: #### V ALLBG ####[place] [address], [place] [phone] pH (Bld) 7.30 [pH] Low 7.32-7.42 [facility] Comment on above: Performed By: #### V ALLBG ####[place] [address], [place] [phone] pH, Temp Corrected 7.30 Low 7.32-7.42 [facility] Comment on above: Performed By: #### V ALLBG ####[place] [address], [place] [phone] pO2 52 mm Hg High 35-45 [facility] Comment on above: Performed By: #### V ALLBG ####[place] [address], [place] [phone] pO2, Temp Corrected 52 mm Hg High 35-45 [facility] Comment on above: Performed By: #### V ALLBG ####[place] [address], [place] [phone] Potassium [Moles/Vol] 4.4 mmol/L Normal 3.5-5.0 [facility] [facility] Comment on above: Performed By: #### V ALLBG ####[place] [address], [place] [phone] Sodium [Moles/Vol] 142 mmol/L Normal 136-144 [facility] Comment on above: Performed By: #### V ALLBG ####[place] [address], [place] [phone] Base Excess Negative Normal [facility] Comment on above: Performed By: #### V ALLBG ####[place] [address], [place] [phone] Blood Gas Comm, Ziyad .VENOUS Normal [facility] Comment on above: Performed By: #### V ALLBG ####[place] [address], [place] [phone] Body temperature 98.6 [degF] Normal [facility] Comment on above: Performed By: #### V ALLBG ####[address] [place], [place] [phone] Calcium [Moles/Vol] 1.25 mmol/L Normal 1.08-1.30 [facility] Comment on above: Performed By: #### V ALLBG ####[address] [phone] Carboxyhemoglobin, Ziyad 0.5 % Normal <2.1 [facility] Comment on above: Performed By: #### V ALLBG ####[address] [phone] CO2 [Moles/Vol] 25 mmol/L Normal 25-29 [facility] Comment on above: Performed By: #### V ALLBG ####[address] [phone] Glucose [Mass/Vol] 172 mg/dL High 60-105 [facility] Comment on above: Performed By: #### V ALLBG ####[address] [phone] HCO3 (Bld) [Moles/Vol] 24 mmol/L Normal 24-28 [facility] Comment on above: Performed By: #### V ALLBG ####[address] [phone] Hematocrit (Bld) [Volume fraction] 44.2 % Normal 36.0-46.0 [facility] Comment on above: Performed By: #### V ALLBG ####[address] [phone] Hemoglobin (Bld) [Mass/Vol] 14.4 g/dL Normal 11.5-15.5 [facility] Comment on above: Performed By: #### V ALLBG ####[facility] [phone] Lactate [Moles/Vol] 2.4 mmol/L High 0.5-2.2 [facility] Comment on above: Performed By: #### V ALLBG ####[place] [address] [phone] Methemoglobin 1.2 % Normal <1.6 [facility] Comment on above: Performed By: #### V ALLBG ####[place] [address] [phone] O2 Administered 100% Normal [facility] Comment on above: Performed By: #### V ALLBG ####[place] [address] [phone] Oxyhemoglobin, Ziyad. 98 % High 60-85 [facility] Comment on above: Performed By: #### V ALLBG ####[place] [address] [phone] pCO2 46 mm Hg Normal 42-55 [facility] Comment on above: Performed By: #### V ALLBG ####[place] [address] [phone] pCO2, Temp Correct 46 mm Hg Normal 42-55 [facility] Comment on above: Performed By: #### V ALLBG ####[place] [address] [phone] pH (Bld) 7.33 [pH] Normal 7.32-7.42 [facility] Comment on above: Performed By: #### V ALLBG ####[place] [address] [phone] pH, Temp Corrected 7.33 Normal 7.32-7.42 [facility] Comment on above: Performed By: #### V ALLBG ####[place] [id number], [place] [phone] pO2 246 mm Hg High 35-45 [facility] Comment on above: Performed By: #### V ALLBG ####[facility] [address], [place] [phone] pO2, Temp Corrected 246 mm Hg High 35-45 [facility] Comment on above: Performed By: #### V ALLBG ####[facility] [place], [place] [phone] Potassium [Moles/Vol] 4.4 mmol/L Normal 3.5-5.0 [facility] Comment on above: Performed By: #### V ALLBG ####[place] [address] [place], [place] [phone] Sodium [Moles/Vol] 143 mmol/L Normal 136-144 [facility] Comment on above: Performed By: #### V ALLBG ####[facility], [place] [phone] HISTORY PHYSICALon HISTORY PHYSICAL HNO ID: [id number] Author: Kayce Ricardo MD Service: Radiology Author Type: Physician Type: HANDP Filed: 04/26/2021 8:56 PM Note Text: UPDATED PROCEDURAL SEDATION HISTORY AND PHYSICAL EXAMINATION SERVICE DATE: 04/26/2021 SERVICE TIME: 8:15 AM PHYSICAL EXAM MUST BE COMPLETED ON ADMISSION PROCEDURE: Cryoablation right abdominal wall desmoid with general anesthesai 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 The contents accurately reflect the patient's condition with the following additions or revisions since the HANDP was completed. ASA Class: Per anesthesia Examination indicates no changes. AIRWAY: Per anesthesia LUNGS: Exam deferred CARDIAC: RRR Provisional Diagnosis/Treatment Plan: Cryoablation right abdominal wall with general anesthesia This HANDP can be found in the Electronic Medical Record dated 04/02/21. SIGNATURE: Kayce Ricardo MD PATIENT NAME: Oscar Pineda DATE: April 26, 2021 TIME: 8:54 PM Normal [facility] Magnesiumon 04-26-2021 Magnesium [Mass/Vol] 1.9 mg/dL Normal 1.7-2.3 [facility] Comment on above: Performed By: #### C BC, MG1, PT, PTT, BMP, PHOS ####[facility] [address] [place], [place] [phone] NURSING PROGon 04-26-2021 NURSING PROG HNO ID: [id number] Author: Jack Richards RN Service: Nursing Author Type: Registered Nurse Type: Nursing Progress Note Filed: 04/26/2021 9:21 PM Note Text: Nursing Progress: Topic: RESTRAINT NON-VIOLENT PATIENT NAME: Oscar Pineda PATIENT LOCATION: [place] [address] The patient demonstrates Lack of Understanding/Ability to Comply with Safety Directions, Impulsive Behavior, Inability to be Redirected, Inability to Retain Information Regarding Safety Directions, Attempting to Remove Medical Devices Vital to Medical Stability as evidenced by the following behaviors pulling at ETT/central line which pose an imminent danger to self or others. The following interventions were attempted but were not effective in protecting the patient's safety: Medications Reviewed, Modify Environment, Modify Equipment, Frequent Observation Next, a comprehensive assessment was performed and warranted placing the patient in Soft Bilateral Wrists, the least restrictive restraint needed to protect the patient's safety. Ongoing safety assessments and evaluation for earliest removal of restraints will be performed. DATE: April 26, 2021 TIME: 8:00 PM Jack Richards RN Normal [facility] NURSING PROG HNO ID: [id number] Author: Karsten Goldsmith RN Service: Nursing Author Type: Registered Nurse Type: Nursing Progress Note Filed: 04/26/2021 6:59 PM Note Text: Nursing Progress: Topic: RESTRAINT NON-VIOLENT PATIENT NAME: Oscar Pineda PATIENT LOCATION: [place] [address] The patient demonstrates Lack of Understanding/Ability to Comply with Safety Directions, Impulsive Behavior, Confusion, Inability to Retain Information Regarding Safety Directions, Inability to be Redirected, Attempting to Remove Medical Devices Vital to Medical Stability as evidenced by the following behaviors attempting to pull out ETT which pose an imminent danger to self or others. The following interventions were attempted but were not effective in protecting the patient's safety: Medications Reviewed, Modify Environment, Frequent Observation, Modify Equipment Next, a comprehensive assessment was performed and warranted placing the patient in Soft Bilateral Wrists, the least restrictive restraint needed to protect the patient's safety. Ongoing safety assessments and evaluation for earliest removal of restraints will be performed. DATE: April 26, 2021 TIME: 6:58 PM Karsten Goldsmith RN Normal [facility] PT EDon 04-26-2021 PT ED HNO ID: [id number] Author: Agnes Schaefer RN Service: Interventional Radiology Author Type: Registered Nurse Type: Patient Education Filed: 04/26/2021 8:52 AM Note Text: Patient Education: Procedure: Cryo Right abdominal wall desmoid with anesthesia, procedure room safety and infection control READINESS TO LEARN COGNITIVE ABILITY: Alert and oriented Education initiated pre-procedure/sedation. MOTIVATION TO LEARN: Interested FAMILY SUPPORT: High - Very involved in pt care INSTRUCTION PROVIDED TO: Patient and Patient and family member PATIENT LEARNS BEST BY: Multiple Methods FACTORS AFFECTING LEARNING: None PHYSICAL LIMITATIONS AFFECTING LEARNING: None LEARNING RESPONSE DIAGNOSIS: abdominal wall desmoid tumor METHOD OF INSTRUCTION: Verbal instruction PATIENT / FAMILY RESPONSE: Information received as demonstrated by interest and questions FOLLOW-UP PLAN: Complete - No need for follow-up recommend recovering RN to provide and review post procedure instructions with pt. prior to discharge. SUPPLEMENTAL MATERIAL: None REFERRAL (RECOMMENDATION): None Normal [facility] Phosphoruson 04-26-2021 Phosphate [Mass/Vol] 3.1 mg/dL Normal 2.7-4.8 [facility] Comment on above: Performed By: #### C BC, MG1, PT, PTT, BMP, PHOS ####[facility] [place], [place] [phone] Protimeon 04-26-2021 PT INR 1.1 Normal 0.9-1.3 [facility] Comment on above: Result Comment: Neha min K Antagonist (VKA) Therapeutic Range: INR 2 to 3 (Target INR of 2.5) Note: For patients treated with VKA drugs, such as warfarin, the [place] [employer] 2012 Guideline recommends a therapeutic INR range of 2 to 3 (target INR of 2.5). This recommendation includes high-risk patients with antiphospholipid syndrome with previous arterial or venous thromboembolism, current-generation mechanical or bioprosthetic aortic heart valve replacement. Note: Patients with mechanical aortic valve replacement and additional risk factors for thromboembolic events (atrial fibrillation, previous thromboembolism, LV dysfunction, hypercoagulable conditions) or an older generation mechanical AVR (i.e., ball in-Cage) or any mechanical MVR should have a INR therapeutic range of 2.5 to 3.5 (target INR of 3). Deep GH, et al. Chest 2012, 141:7S-47S Daphne RA, et al. [facility] 2017, 70: 252-289 Performed By: #### C BC, MG1, PT, PTT, BMP, PHOS ####[facility] [address], [place] [phone] PT Sec 11.9 sec Normal 9.7-13.0 [facility] Comment on above: Performed By: #### C BC, MG1, PT, PTT, BMP, PHOS ####[facility] [address], [place] [phone] Staph aureus PCRon MRSA PCR Negative Normal [facility] Comment on above: Performed By: #### S APCR ####[facility] [address]CM[address], [place] [phone] S aureus Spec Source Nasal Normal [facility] Comment on above: Performed By: #### S APCR ####[facility] [address]CM[address], [place] [phone] Staph aureus PCR Negative Normal [facility] Comment on above: Performed By: #### S APCR ####[facility], [place] [phone] XR ABDOMEN 1V SUPINEon 04-26 XR ABDOMEN 1V SUPINE * * *Final Report* * * DATE OF EXAM: Apr 26 2021 2:51PM GILDARDO 5289 - XR ABDOMEN 1V SUPINE / PROCEDURE REASON: Evaluate tube, line or lead position * * * * Physician Interpretation * * * * XR ABDOMEN 1V SUPINE HISTORY: Evaluate tube, line or lead position TECHNIQUE: Supine abdomen (1 view), 1 image(s) COMPARISON: CT abdomen 12/07/2020, procedural CT 04/26/2021 RESULT: See impression. IMPRESSION: Small volume pneumoperitoneum and subcutaneous emphysema in the right lower quadrant as seen on procedural CT from same date. Moderate gaseous distention of the stomach. No dilated loops of bowel. No focal bony abnormality. General Laborer: [facility] Transcribe Date/Time: Apr 26 2021 2:53P Dictated by : RAMIN BROWNLEE MD This examination was interpreted and the report reviewed and electronically signed by: RAMIN BROWNLEE MD on Apr 26 2021 3:05PM EST [id number] Normal [facility] XR CHEST 1V FRONTAL PORTon 1 XR CHEST 1V FRONTAL PORT * * *Final Report* * * DATE OF EXAM: Apr 26 2021 4:55PM GILDARDO 5376 - XR CHEST 1V FRONTAL PORT / PROCEDURE REASON: Evaluate tube, line or lead position * * * * Physician Interpretation * * * * EXAMINATION: CHEST RADIOGRAPH (PORTABLE SINGLE VIEW AP) Exam Date/Time: 04/26/2021 4:55 PM Clinical History: Evaluate tube, line or lead position MQ: XCPMC_6 Comparison: 1426, same day RESULT: Lines, tubes, and devices: The tip of the ET tube is 2 cm proximal to the adi. There has been placement of a right IJ venous catheter, the tip of which overlies the lower third of the SVC. Lungs and pleura: The lungs appear hypoinflated. There is patchy atelectasis at both lung bases. No pleural effusion or pneumothorax is identified. Cardiomediastinal silhouette: Stable cardiomediastinal silhouette. No acute process identified. IMPRESSION: See result. General Laborer: [facility] Transcribe Date/Time: Apr 26 2021 6:05P Dictated by : JASON LOWE MD This examination was interpreted and the report reviewed and electronically signed by: JASON LOWE MD on Apr 26 2021 6:07PM EST [id number] Normal [facility] XR CHEST 1V FRONTAL PORT * * *Final Report* * * DATE OF EXAM: Apr 26 2021 2:51PM GILDARDO 5376 - XR CHEST 1V FRONTAL PORT / PROCEDURE REASON: Evaluate tube, line or lead position * * * * Physician Interpretation * * * * EXAMINATION: CHEST RADIOGRAPH (PORTABLE SINGLE VIEW AP) Exam Date/Time: 04/26/2021 2:51 PM Clinical History: Evaluate tube, line or lead position MQ: XCPMC_6 Comparison: None available RESULT: The patient is rotated slightly to the left on the current film. Lines, tubes, and devices: The tip of the ET tube is at the adi. It may be withdrawn 3 to 4 cm.. Lungs and pleura: The lungs appear hypoinflated. There is patchy bibasilar atelectasis. No pleural effusion or pneumothorax is identified. Cardiomediastinal silhouette: No acute process identified. IMPRESSION: See result. General Laborer: [facility] Transcribe Date/Time: Apr 26 2021 3:57P Dictated by : JASON LOWE MD This examination was interpreted and the report reviewed and electronically signed by: JASON LOWE MD on Apr 26 2021 3:58PM EST [id number] Normal [facility] NURSING PROGon 04-24-2021 NURSING PROG HNO ID: [id number] Author: Shereen Kwok LPN Service: ? Author Type: LICENSED NURSE Type: Nursing Progress Note Filed: 04/24/2021 2:42 PM Note Text: Pre-procedure instructions: Contacted patient and confirmed appt. for Cryoablation scheduled on 04/26/21, at [facility]. Diet: Do not eat solid food after midnight the night before your procedure. You may have water until your arrival time. Medications: IF ok with your Prescribing Provider: RADIOLOGY RECOMMENDS THESE MEDICATION RESTRICTIONS : None Medication pumps: Insulin pumps must be removed before entering the procedure room. Do you wear Neulasta Onpro? No If yes, the devise must be removed before entering the procedure room. Contrast Dye Prep: Do you have a contrast dye allergy? No Labs: Labs completed on 03/12/21. Arrival: Please bring your Photo ID and Insurance Card. A general consent may need to be signed. Arrival at 6:30am to desk QB-[id number] ([place]) and check in for your procedure. Cable Coverer/Transportation: How will you be arriving for your procedure? Private car. If you will be arriving at [facility] via ambulance or public transportation, please call to discuss. You will need a responsible adult to accompany you to and from the procedure. Your package car driver is required to stay with you until you are taken into the Procedure room. [facility] is currently restricting visitors to two visitors per patient. No visitor under the age of 16. You and your visitor will be screened for temperature and COVID-19 symptoms upon entry to the hospital, and a wristband will be applied when cleared. If you develop any of the following symptoms before your procedure, please call [phone]. Chills, joint pain, rash, sore throat, cough, loss of smell, reddened eyes, vomiting, abdominal pains, diarrhea, loss of taste, severe headache, weakness, bruising or bleeding, fever, muscle pain, shortness of breath Recovery expectations: You can expect to be at the hospital for the majority of the day. Please do not schedule any other appointments the day of your procedure. Special concerns: Do you use CPAP or BPAP? No Written instructions provided to patient via [employer] If you have any questions please call [phone] Normal [facility] MRI ABDOMEN WO/W IVCONon [facility] Vital Signs Date Time Vital Sign Value Performing Clinician Facility 10-10-2022 10:00-0400 Body height 161.29 cm Shaun Valentine Other [facility] Other 10-10-2022 10:00-0400 Body mass index (BMI) [Ratio] 23.08 kg/m2 Shaun Valentine Other [facility] Other 10-10-2022 10:00-0400 Body weight 60.06 kg Shaun Ball Other [facility] Other 10-10-2022 10:00-0400 Diastolic blood pressure 76 mm[Hg] Shaun Ball Other [facility] Other 10-10-2022 10:00-0400 Respiratory rate 12 /min Shaun Ball Other [facility] Other 10-10-2022 10:00-0400 Systolic blood pressure 110 mm[Hg] Shaun Ball Other [facility] Other 04-28-2022 15:46-0400 Body temperature 99.5 [degF] Melani Russell MD Work Phone: [facility] 04-28-2022 15:46-0400 Body weight 76.39 kg Melani Russell MD Work Phone: [facility] 04-28-2022 15:46-0400 Diastolic blood pressure 76 mm[Hg] Melani Russell MD Work Phone: [facility] 04-28-2022 15:46-0400 Heart rate 71 /min Melani Russell MD Work Phone: [facility] 04-28-2022 15:46-0400 Respiratory rate 20 /min Melani Russell MD Work Phone: [facility] 04-28-2022 15:46-0400 SaO2% (BldA) [Mass fraction] 97 % Melani Russell MD Work Phone: [facility] 04-28-2022 15:46-0400 Systolic blood pressure 131 mm[Hg] Melani Russell MD Work Phone: [facility] Encounters Encounter Date Encounter Type Care Provider Facility Start: 06-29-2023 End: 06-29-2023 ambulatory ADRIANNE MERCHANT Not Available Start: 06-01-2023 End: 06-01-2023 ambulatory SUKHJINDER WIN Not Available Start: 02-25-2023 ambulatory Melani Hutchison Work Phone: Hematology/Oncology Comment on above: Start: 11-02-2022 Encounter for genera l adult medical examination without abnormal findings DR SHAUN VALENTINE [facility] Start: 10-27-2022 Telephone encounter Shaun Valentine [facility] Start: 10-27-2022 End: 10-28-[address] SHAUN VALENTINE [facility] Other Start: 10-27-2022 End: 10-28-2022 Encounter for general adult medical examination without abnormal findings DR SHAUN VALENTINE Facility: Start: 10-10-2022 End: 10-10-2022 ambulatory Shaun Valentine Other [facility] Other Start: 10-10-2022 Encounter for genera l adult medical examination without abnormal findings Shaun Valentine [facility] Start: 10-10-2022 Periodic preventive med est patient 18-39 yrs Shaun Valentine [facility] Start: 04-28-2022 End: 04-29-2022 ambulatory Mealni Russell MD Work Phone: Hematology/Oncology Comment on above: History of tumor (Pr imary Dx) Start: 04-28-2022 End: 04-29-2022 Patient encounter procedure Melani Russell MD Work Phone: [facility] Start: 04-21-2022 End: 04-21-2022 ambulatory MELANI RUSSELL Facility[facility] Start: 04-21-2022 End: 04-21-2022 Subsequent hospital visit by physician Mri 4 Radio Main Q (I-Stat/1.5t/3t) Work Phone: MRI Q 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] Start: 11-14-2021 ambulatory Melani Hutchison Work Phone: Hematology/Oncology 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 Start: 10-28-2021 Telephone encounter Melani Acuña rd, MD Work Phone: Hematology/Oncology Comment on above: Care Coordination Start: 09-27-2021 End: 09-27-2021 ambulatory MELANI RUSSELL Facility[facility] Start: 09-20-2021 End: 09-20-2021 ambulatory MELANI RUSSELL Facility:[facility] Start: 05-07-2021 End: 05-07-2021 ambulatory ALEX URBANO [facility] Start: 05-06-2021 End: 05-06-2021 ambulatory ALEX URBANO [facility] Start: 04-26-2021 End: 04-30-2021 Evaluation and management of inpatient KAYCE RICARDO [facility] Start: 02-28-2021 End: 02-28-2021 Subsequent hospital visit by physician Kiel Pineda (I-Stat/1.5t) Radiology Comment on above: Intra-abdominal and pelvic swelling, mass and lump, unspecified site [R19.00] Procedures Date Procedure Procedure Detail Performing Clinician Start: 04-29-2021 Antibody screen ALEX URBANO Comment on above: Performed By: #### T SCR ####[facility] [address] [place], [place] [phone] Start: 04-26-2021 Antibody screen ALEX URBANO Comment on above: Performed By: #### T SCR ####[facility] [place], [place] [phone] Start: 02-28-2021 Mri abdomen w/o & w/contrast material Cortez Carter MD Work Phone: Plan of Treatment Date Care Activity Detail Author Start: 03-20-2023 Covid-19 Vaccine ( season) Covid-19 Vaccine ( season) [facility] Start: 03-20-2023 Influenza vaccination [facility] Start: 10-28-2022 End: 05-29-2023 Mri abdomen w/o & w/contrast material MRI ABDOMEN WO/W IVCON Radiology Routine History of tumor Expected: 10/28/2022, Expires: 05/29/2023 [facility] Work Phone: Comment on above: Expected: 10/28/2022 , Expires: 05/29/2023 Start: 10-28-2022 End: 05-29-2023 Mri pelvis w/o & w/contrast material MRI PELVIS WO/W IVCON Radiology Routine History of tumor Expected: 10/28/2022, Expires: 05/29/2023 [facility] Work Phone: Comment on above: Expected: 10/28/2022 , Expires: 05/29/2023 Start: 10-26-2022 End: 12-26-2022 CBC W Auto Differential panel - Blood ABS GRAN CT + CBC Lab Routine History of tumor Expected: 10/26/2022 (Approximate), Expires: 12/26/2022 [facility] Work Phone: Comment on above: Expected: 10/26/2022 (Approximate), Expires: 12/26/2022 Start: 10-26-2022 End: 12-26-2022 Comprehensive metabolic 2000 panel - Serum or Plasma COMP METABOLIC PANEL Lab Routine History of tumor Expected: 10/26/2022 (Approximate), Expires: 12/26/2022 [facility] Work Phone: Comment on above: Expected: 10/26/2022 (Approximate), Expires: 12/26/2022 Start: 07-20-2022 [facility]PRESS[facility] Start: 03-20-2022 Influenza vaccination [facility] Start: 09-12-2021 COVID-19 VACCINE (3 - Booster for Pfizer series) COVID-19 VACCINE (3 - Booster for Pfizer series) [facility] Start: 07-20-2021 DEPRESSION ASSESSMENT DEPRESSION ASS [facility] [facility]ER CENTER[facility] Start: 06-07-2021 COVID-19 VACCINE (3 - Booster for Pfizer series) COVID-19 VACCINE (3 - Booster for Pfizer series) [facility] Start: 06-07-2021 COVID-19 VACCINE (3 - Pfizer series) COVID-19 VACCINE (3 - Pfizer series) [facility] Start: 03-15-2020 Urine microalbumin profile DTaP,Tdap,Td Vaccine (2 - Tdap) [facility] Start: 2014 HPV TESTING HPV TESTING [facility] Start: 2005 PAP TESTING PAP TESTING [facility] Start: 2003 Urine microalbumin profile DTAP,TDAP,TD (1 - Tdap) [facility] Start: 2002 HEPATITIS C SCREENING HEPATITIS C SC URBANO [facility] Start: 2002 HIV SCREENING HIV SCREENING [facility] Start: 1996 Adult depression screening assessment DEPRESSION SCREENING [facility] Start: 1984 HEPATITIS B (1 of 3 - 3-dose series) HEPATITIS B (1 of 3 - 3-dose series) [facility] Start: 1984 Hepatitis B Vaccine (1 of 3 - 3-dose series) Hepatitis B Vaccine (1 of 3 - 3-dose series) [facility] End: 04-21-2022 Mri abdomen w/o & w/contrast material [facility] Work Phone: Comment on above: 1 Occurrences starti ng 04/21/2022 until 04/21/2022 End: 04-21-2022 Mri pelvis w/o & w/contrast material [facility] Work Phone: Comment on above: 1 Occurrences starti ng 04/21/2022 until 04/21/2022 [facility] Immunizations Immunization Date Immunization Notes Care Provider Ana lucas 04-12-2021 COVID-19 Vaccine Pfi zer - Documentation Purposes Only Shaun Valentine Other [facility] Other 03-22-2021 COVID-19 Vaccine Pfi zer - Documentation Purposes Only Shaun Valentine Other [facility] Other 06-09-2019 influenza virus vaccine, unspecified formulation Mri (I-Stat/1.5t) [facility] Payers Date Payer Category Payer Private Health Insurance [employer] A ETNA CHOICE POS II [id number] 2015-Present [phone] [address] [place] [address] POS [id number] 2015 Private Health Insurance [id number] 1984 Unknown [id number] 1984 Unknown [id number] 1984 Unknown [id number] 1959 Private Health Insurance [id number] Private Health Insurance [id number] Social History Date Type Detail Facility Start: 02-14-2021 Tobacco smoking stat [facility] Never smoked tobacco [facility] Start: 02-14-2021 Tobacco use and exposure Smoke less tobacco non-user [facility] Start: 1985 Sex Assigned At Female C [facility] Start: 01-15-2021 End: 04-28-2022 Exposure to SARS-CoV-2 (event) Not sure [facility] Start: 02-14-2021 End: 05-07-2021 Sex Assigned At [facility] Start: 02-14-2021 End: 05-07-2021 History of Social function [facility] Adult Depression Screening Assessment 0 [facility] Start: 02-26-2021 Gender identity Identifies as female gender (finding) [facility] Start: 03-27-2021 Sexual orientation Heterosexual (fin ding) [facility] Clinical Notes 02-28-2021 to 10-10-2022 Note Date & Type Note Facility 10-10-2022 Evaluation note Encounter Date Diagnosis Assessment Notes Sep, Wellness examination (ICD-10 - Z00.00) Sep, Hair thinning (ICD-10 - L65.9) Check H/H and TSH Not scarring [facility] Other 10-11-2022 History of Present illness Narrative* Melani Russell MD - 04/29/2022 10:41 AM EDT HISTORY OF PRESENT ILLNESS: Oscar Pineda is a 36 year old female with recently diagnosed intraabdominal desmoid tumor. Patientoriginally noticed abdominal mass in 11/07, MRI done 02/28 showed evidence of 5.6 cm intramuscular mass suggestive of a desmoid tumor. Biopsy on 03/12 consistent with desmoid tumor. Common Hereditary Cancers Panel from 05/09 negative, no history of FAP. Patient first seen by Dr. Russell in clinic on 04/02/21. Patient's case was discussed at the multidisciplinary sarcoma tumor board with a recommendation for consult for consideration of ablation and subsequent sulindac to minimize regrowth of tumor.Cryoablation of the desmoid tumor in April 2021. Started sulindac in May 09 with MRI in September2021 with no residual tumor. Had weight gain while on sulindac and this was discontinued. INTERVAL HISTORY: Since her last appointment about 7 months ago, no new symptoms concerning for growth of a desmoid tumor. She has some occasional burning at the site of the cryoablation. Not on any systemic therapy at this time. No changes in appetite, energy or weight. No respiratory symptoms. She reports no nausea or vomiting no constipation or diarrhea. No fever, chills, or sweats. A complete review of systemsis otherwise negative. MRI of the abdomen and pelvis prior to her appointment shows no local recurrence of her desmoid tumor and no evidence of new desmoid tumors. There is a reduction in the size of the ablation zone. PHYSICAL EXAM : BP 131/76 Pulse 71 Temp 37.5 C (99.5 F) (Temporal) Resp 20 Wt 76.4 kg (168 lb 6.4 oz) LMP04/18/2021 SpO2 97% BMI 29.83 kg/m General Appearance : Patient is in no acute distress. ECOG 0 HEENT : EOMI with no scleral icterus Cardiovascular : Regular rate Abdomen : Not distended MS: Normal gait. Psych: conversational with normal affect ASSESSMENT/PLAN: A 36-year-old female with a desmoid tumor in the right rectus abdominis s/p cryoablation Clinically, she is doing well. No radiographic evidence for recurrence of her desmoid tumor and no additional lesions. She will continue with surveillance and I will see her back in clinic in 6 months with MRI prior to her appointment. She is aware that she should call with any questions or concerns prior to her appointment. We have reviewed the results of her current MRI and we have discussed updates in systemic treatment of desmoid tumors in case of a recurrence. Melani Russell MD, PhD Staff, Hematology and Medical Oncology [facility] Nurse Note* Aliya Jean Baptiste RN - 04/28/2022 3:43 PM EDT Additional intake questions: Has the patient had fever, nausea, vomiting, diarrhea, constipation, fatigue for > 1 week? No Does the patient have a decreased appetite? No Does patient want to see a Cask Maker? No (yes to any of above refer patient to schedulers for dietitian appointment) ) Does patient have any new or increased numbness or tingling of extremities? No Is patient interested in fertility information? No Does patient need any prescription refills? No Does patient have an advanced directive in place? No, Patient referred to [facility] Electronically Signed By: Aliya Jean Baptiste RN documented [facility]22 NoteHNO ID: [id number] Author: Erin Garcia RN Service: ? Author Type: Registered Nurse Type: Progress Notes Filed: 04/21/2022 5:40 PM Note Text: Radiology Service Progress Note DATE OF SERVICE: April 21, 2022 TIME: 5:35 PM PATIENT WEIGHT: 155LBS PATIENT IDENTITY VERIFICATION COMPLETED USING TWO (2) STANDARD IDENTIFIERS: Name and Date of confirmed by patient verbally. FALL SCREENING: Has the patient had 2 falls in the last year or 1 fall with injury or currently using an Ambulatory Assistive Device (Walker, Cane, Wheelchair, Crutches, etc.)? No PATIENT GENDER DATA: Female. status: : No status: NO. ALLERGIES: Reviewed and unchanged CONTRAST ALLERGY: No EXAM: MRI - CONTRAST TYPE: GROUP II IV SITE: Ambulatory: A peripheral IV was started in the Left antecubital site with a Angio cath: 22 gauge. IV SITE APPEARANCE: Clean,Dry and Intact SIGNATURE: Erin Garcia RN PATIENT NAME: Oscar Pineda DATE: April 21, 2022 TIME: 5:35 [facility] NoteHNO ID: [id number] Author: RT Toby(Lizzy) Service: Radiology Author Type: Technologist Type: Progress Notes Filed: 04/21/2022 6:09 PM Note Text: Radiology Service Progress Note PATIENT NAME: Oscar Pineda DATE OF SERVICE: April 21, 2022 TIME: 6:08 PM PATIENT IDENTITY VERIFICATION COMPLETED USING TWO (2) IDENTIFIERS: Name and Date of confirmed by patient verbally and Name and Date of confirmed by identification band. FALL SCREENING: Has the patient had 2 falls in the last year or 1 fall with injury or currently using an Ambulatory Assistive Device (Walker, Cane, Wheelchair, Crutches, etc.)? No PATIENT GENDER DATA: Female. status: : No status: NO. PATIENT RELEVANT IMPLANT DATA REVIEWED: Yes RADIOLOGY DEPARTMENT: MR; Exam(s) Completed: Body: Screening Abdomen/Pelvis PERIPHERAL IV DATA: Site assessment: Clean,Dry and Intact, Site disposition Discontinued SIGNED BY: KAMINI LuisR) April 21, 2022 6:08 [facility]10-03-2022 History of Present illness Narrative* Erin Garcia RN - 04/21/2022 5:20 PM EDT Radiology Service Progress Note DATE OF SERVICE: April 21, 2022 TIME: 5:35 PM PATIENT WEIGHT: 155LBS PATIENT IDENTITY VERIFICATION COMPLETED USING TWO (2) STANDARD IDENTIFIERS: Name and Date of confirmed by patient verbally. FALL SCREENING: Has the patient had 2 falls in the last year or 1 fall with injury or currently using an Ambulatory Assistive Device (Walker, Cane, Wheelchair, Crutches, etc.)? No PATIENT GENDER DATA: Female. status: : No status: NO. ALLERGIES: Reviewed and unchanged CONTRAST ALLERGY: No EXAM: MRI - CONTRAST TYPE: GROUP II IV SITE: Ambulatory: A peripheral IV was started in the Left antecubital site with a Angio cath: 22gauge. IV SITE APPEARANCE: Clean,Dry and Intact SIGNATURE: Erin Garcia RN PATIENT NAME: Oscar Pineda DATE: April 21, 2022 TIME: 5:35 PM * RT Toby(R) - 04/21/2022 5:20 PM EDT Radiology Service Progress Note PATIENT NAME: Oscar Pineda DATE OF SERVICE: April 21, 2022 TIME: 6:08 PM PATIENT IDENTITY VERIFICATION COMPLETED USING TWO (2) IDENTIFIERS: Name and Date of confirmedby patient verbally and Name and Date of confirmed by identification band. FALL SCREENING: Has the patient had 2 falls in the last year or 1 fall with injury or currently using an Ambulatory Assistive Device (Walker, Cane, Wheelchair, Crutches, etc.)? No PATIENT GENDER DATA: Female. status: : No status: NO. PATIENT RELEVANT IMPLANT DATA REVIEWED: Yes RADIOLOGY DEPARTMENT: MR; Exam(s) Completed: Body: Screening Abdomen/Pelvis PERIPHERAL IV DATA: Site assessment: Clean,Dry and Intact, Site disposition Discontinued SIGNED BY: RT Toby(Lizzy) April 21, 2022 6:08 PM documented in this encounterCl[facility]04-13-2022 Miscellaneous Notes* Telephone Encounter - Brittany Avendaño [facility] - 10/30/2021 3:24 PM EDT Patient calling stating she has not received a call back, Please call @ [phone] * Telephone Encounter - Brittany Avendaño [facility] - 10/28/2021 10:02 AM EDT Oscar Pineda is calling Melani Russell MD today regarding Care Coordination,calling with questions about with her condition. Patient has been identified by name and birthdate. Duration of symptoms: N/A Requesting response back: call on cell [phone] (home) [phone] (cell) Brittany EPSTEIN October 28, 2021 documented in [facility] encounterCl[facility]03-11-2022 NoteHNO ID: [id number] Author: Melani uRssell MD Service: ? Author Type: Physician Type: Progress Notes Filed: 10/07/2021 12:24 PM Note Text: [facility] ESTABLISHED PATIENT VISIT PATIENT NAME: Oscar Pineda : 1985 ATTENDING PHYSICIAN: Melani Russell MD DATE OF SERVICE: September 27, 2021 HISTORY OF PRESENT ILLNESS: Oscar Pineda is a 36 year old female with recently diagnosed intraabdominal desmoid tumor. Patient originally noticed abdominal mass in 11/07, MRI done 02/28 showed evidence of 5.6 cm intramuscular mass suggestive of a desmoid tumor. Biopsy on 03/12 consistent with desmoid tumor. Common Hereditary Cancers Panel from 05/09 negative, no history of FAP. Patient first seen by Dr. Russell in clinic on 04/02/21. Patient's case was discussed at the multidisciplinary sarcoma tumor board with a recommendation for consult for consideration of ablation and subsequent sulindac to minimize regrowth of tumor. INTERVAL HISTORY: Patient underwent cryoablation of desmoid tumor on 04/26/21 complicated by air embolism to IVC filter and hepatic veins with trace air in right heart. Pt was managed conservatively with resolution and extubated 04/29. Sulindac started on 05/17/21. MRI A/P on 09/20/21 showed no internal enhancement to suggest residual/viable tumor. Patient reporting 20 pound weight gain since beginning Sulindac this past April. Patient also reports occasional burning sensation at site of cryoablation. Patient also endorses occasional constipation. Patient otherwise denies nausea/vomiting, diarrhea, abdominal pain. REVIEW OF SYSTEMS: Complete 10 system review of systems performed and negative except as stated in the interval history. MEDICATIONS: Current Outpatient Medications Medication Sig - sulindac (CLINORIL) 150 mg tablet Take 1 tablet by mouth twice daily. - Collagenase powd - amino acids-whey prot conc,iso (WHEY PROTEIN) 20 gram-140 kcal/39 gram powd Take by mouth. - OTC NUTRITIONAL SUPPLEMENT - 25/iron fum/folic/dha (-1 ORAL) Take by mouth. No current facility-administered medications for this visit. PHYSICAL EXAMINATION: BP 149/67 Pulse 65 Resp 20 Wt 77.6 kg (171 lb) LMP 04/18/2021 SpO2 100% BMI 30.29 kg/m? Body surface area is 1.86 meters squared. ECOG/Karnofsky Performance Score: 0/100% General: In no acute distress, comfortable HEENT: Normocephalic, EOMI, conjunctiva clear, mucous membranes moist CV: Regular rate and rhythm, no m/r/g Lungs: Non-labored respirations Extremities: No lower extremity edema Skin: No rashes or lesions Neuro: No gross or focal motor deficits, sensation intact GI: 2cm, non-mobile nodule in RLQ LABS: Reviewed IMAGING: MRI Abdomen/Pelvis 09/20/21: Interval ablation of soft tissue mass in the RIGHT rectus abdominis muscle. ?There is rim enhancement around the ablation zone, which measures 4.9 x 2.6 cm (24; 18). ?There is no internal enhancement to suggest residual/viable tumor. 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 - Decision made to discontinue sulindac at this time in light of side effects - Return to clinicn in 6 months for repeat scans Patient seen and discussed with Sarcoma Oncology staff, Dr. Melani Pérez MD Internal Medicine Resident, PGY-1 [facility] 09/27/2021 SOLID TUMOR STAFF: ATTENDING PHYSICIAN NOTE OF PERSONAL INVOLVEMENT IN CARE I have reviewed the note obtained and documented by Dr. Pérez and I personally participated in the garcia components. The following comments revise or confirm relevant garcia components of the note. 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 She had started sulindac to minimize risk for recurrence, however she is having some weight gain due to fluid retention that she is attributing to the sulindac. She is discontinuing the sulindac and this can be readdressed if there is growth of tumor. I anticipate her returning with scans prior to her appointment in 6 months. Melani Russell MD, PhD Staff, Hematology and [facility]cology[facility] Note HNO ID: [id number] Author: RT Eduardo(R) Service: Radiology Author Type: Technologist Type: Progress Notes Filed: 09/20/2021 4:26 PM Note Text: Radiology Service Progress Note PATIENT NAME: Oscar Pineda DATE OF SERVICE: September 20, 2021 TIME: 4:17 PM PATIENT IDENTITY VERIFICATION COMPLETED USING TWO (2) IDENTIFIERS: Name and Date of confirmed by patient verbally and Name and Date of confirmed by identification band. FALL SCREENING: Has the patient had 2 falls in the last year or 1 fall with injury or currently using an Ambulatory Assistive Device (Walker, Cane, Wheelchair, Crutches, etc.)? No PATIENT GENDER DATA: Female. status: : No status: NO. PATIENT RELEVANT IMPLANT DATA REVIEWED: Yes RADIOLOGY DEPARTMENT: MR; Exam(s) Completed: Body: Screening Abdomen/Pelvis PERIPHERAL IV DATA: Site assessment: Clean,Dry and Intact, Site disposition Discontinued SIGNED BY: RT Eduardo(R) September 20, 2021 4:17 [facility]03-04-2022 NoteHNO ID: [id number] Author: Ronda Arora Service: ? Author Type: ? Type: Progress Notes Filed: 09/20/2021 3:29 PM Note Text: Radiology Service Progress Note DATE OF SERVICE: September 20, 2021 TIME: 3:22 PM PATIENT WEIGHT: 155 LBS PATIENT IDENTITY VERIFICATION COMPLETED USING TWO (2) STANDARD IDENTIFIERS: Name and Date of confirmed by patient verbally and Name and Date of confirmed by identification band. FALL SCREENING: Has the patient had 2 falls in the last year or 1 fall with injury or currently using an Ambulatory Assistive Device (Walker, Cane, Wheelchair, Crutches, etc.)? No PATIENT GENDER DATA: Female. status: : No status: NO. ALLERGIES: Reviewed and unchanged CONTRAST ALLERGY: No EXAM: MRI - CONTRAST TYPE: GROUP II IV SITE: Ambulatory: A peripheral IV was started in the Right antecubital site with a Angio cath: 22 gauge. IV SITE APPEARANCE: Clean,Dry and Intact SIGNATURE: Ronda Arora PATIENT NAME: Oscar Pineda DATE: September 20, 2021 TIME: 3:22 [facility]10-18-2021 NoteHNO ID: [id number] Author: LANETTE De Leon Service: ? Author Type: Genetic Counselor Type: Progress Notes Filed: 05/24/2021 11:18 AM Note Text: [facility] Consultation Note Genetic Counselor: Melida Quintero MS, [facility] [place] Patient: Oscar Pineda Patient Name and confirmed at initiation of visit Visit was done virtually via Zoom Portions of the visit were done by genetic counseling internal communications specialist Suzanna Fishman under my supervision HIGH LEVEL SUMMARY: ? The patient's personal history is potentially suggestive of a hereditary cancer syndrome and the patient's family history is reported significant for Hereditary Breast and Ovarian Cancer Syndrome ? The patient provided informed consent for Common Hereditary Cancers Panel through [facility]. Results are expected in 3 weeks. IDENTIFICATION AND CHIEF COMPLAINT: Dr. Alex Urbano requested a consultation for genetic counseling and risk assessment for Oscar Pineda, a 35 year old female, for discussion of her personal history of a desmoid tumor. She presents to clinic today to discuss the possibility of a genetic predisposition to cancer, and to further clarify her risks, as well as her family members' risks for cancer. HISTORY OF PRESENT ILLNESS: In 2020, at the age of 35, Oscar Pineda was diagnosed with desmoid of rectus abdominus muscle on the right side. This was treated with percutaneous ablation. The patient report's her family history is significant for Hereditary Breast and Ovarian Cancer Syndrome due to a BRCA1 mutation. PAST MEDICAL HISTORY Diagnosis Date - Migraines - Miscarriage 04/2020 PAST SURGICAL HISTORY Procedure Laterality Date - SECTION HX x 3 - EXTRACTION ERUPTED TOOTH/EXR CANCER SURVEILLANCE HISTORY: Mammograms: No Breast MRI's: No Breast Biopsies: No Colonoscopy: No EGD: No GI Polyps: No Pelvic Exam: Yes / patient receives as recommended Pap Smear: Yes / patient receives as recommended CA-125: No Transvaginal Ultrasound: Yes / patient reports no concerns Dermatology: Yes / patient reports 2019, patient reports spot on head that is believed to be a cyst, no biopsy taken REPRODUCTIVE HISTORY AND PERSONAL RISK ASSESSMENT FACTORS: Weight: Last 1 Encounter Wt Readings: Date: Wt: 04/09/2021 80.1 kg (176 lb 9.4 oz) Height: Last 1 Encounter Ht Readings: Date: Ht: 04/02/2021 160 cm (5' 3 ) Menarche was at age 11 Premenopausal Uterus Intact: Yes Ovaries Intact: Yes A1 , first live at age 26 Breast fed: Yes, all three (13 months, 18 months, 2+ years) She has not previously undergone treatment for infertility. She used oral contraception pills for approximately 10 years total She has not used HRT in the past. SOCIAL HISTORY: Social History Tobacco Use - Smoking status: Never Smoker - Smokeless tobacco: Never Used Substance Use Topics - Alcohol use: Not on file - Drug use: Not on file FAMILY HISTORY: We obtained a detailed, 4-generation family history. Significant diagnoses are listed below: FAMILY HISTORY Problem Relation Age of Onset - Depression Mother - Crohn's Disease Sister - Diabetes Sister - Multiple Sclerosis Maternal Grandmother - Stroke Paternal Grandmother - COPD Paternal Grandmother - Emphysema Paternal Grandmother - Pancreatic Cancer Paternal Grandfather - Breast Cancer Maternal Aunt x2, maternal half-aunt - BRCA Positive Maternal Aunt The patient's maternal ancestors are of unknown descent and paternal ancestors are of [place]ian and Marshallese descent. There is no Ashkenazi Hinduism ancestry. The patient had limited information about her biological maternal family history as her mother was adopted. The patient reports that her biological maternal half-aunt has a history of two separate breast cancer diagnoses and was found to have a BRCA1 mutation. The patient has been unable to obtain a copy of her biological maternal half-aunt's genetic test report. A copy of the patient's pedigree will be available under the scanned documents tab following today's visit. GENETIC COUNSELING RISK ASSESSMENT, DISCUSSION, AND SUGGESTED FOLLOW UP: We reviewed the natural history and genetic etiology of sporadic, familial and hereditary cancer syndromes. The patient's personal history is suggestive of a hereditary cancer syndrome and her family history is reported significant for Hereditary Breast and Ovarian Cancer syndrome The patient meets NCCN Familial Adenomatous Polyposis syndrome testing criteria based on her personal history of a desmoid tumor. The patient additionally meets NCCN HBOC testing criteria based on her family history of a BRCA1 mutation. We discussed that there is a 12.5% chance that the patient has the BRCA1 mutation that was reported in her biological maternal half-aunt. We discussed that the patient's genetic (more content not included)...[facility]10-12-[facility]21 NoteHNO ID: [id number] Author: Katty Logan APRN.[employer] BUFFER Service: Critical Care Author Type: Nurse Practitioner Type: Progress Notes Filed: 04/30/2021 1:06 PM Note Text: SERVICE DATE: 04/30/2021 SERVICE TIME: 1:05 PM SURGICAL INTENSIVE CARE UNIT PROGRESS NOTE BRIEF HPI: 35yF PMHx abdominal wall desmoid tumor who presented for cryoablation on 04/26. During the procedure, an unknown amount of air (estimated 50-70cc) was inadvertently injected into her IVC and hepatic veins. Pt was kept intubated and transferred to SICU for hemodynamic monitoring. ECHO showed no R strain or presence of air. Portable head CT was negative. Pt was managed conservatively and kept intubated. CT eventually showed no evidence of air embolism within systemic veins, R-sided heart chambers, central pulmonary arteries, and hepatic veins with resolution of intravenous gas within abdomen and pelvis. Pt was successfully extubated on 04/29. Pt with no further ICU needs. Subjective INTERVAL EVENTS: Doing well on room air. No complaints other than mild headache overnight which improved w/ Toradol. Objective MEDICATIONS: Current medications and allergies reviewed. Recommended/planned medication changes discussed in detail in the A/P section below. Please refer to [facility] for list of inpatient medications. VITAL SIGNS: BP 116/83 Pulse 71 Temp 36.8 ?C (98.2 ?F) (Oral) Resp 16 Wt 80.1 kg (176 lb 9.4 oz) LMP 04/18/2021 SpO2 96% BMI 31.28 kg/m? Current Weight: Weight: 80.1 kg (176 lb 9.4 oz) Admission Weight: Weight: 71.6 kg (157 lb 13.6 oz) PHYSICAL EXAM: General: Alert, no distress, cooperative Skin: Skin color, texture, turgor normal. No rashes or lesions. Eyes: PERRLA Lungs: Lungs clear to auscultation, Good diaphragmatic excursion Cardiac: Normal S1 and S2; no rubs, murmurs, or gallops Abdomen: Abdomen soft, non-tender, BS normal, No masses or organomegaly Neuro: Grossly normal cognition, motor function, and cranial nerves III-XII Pulses: 2+ radial, 2+ dorsalis pedis Wound: Clean, dry and intact DATA: Diagnostic tests reviewed for today's visit: Most recent labs and imaging results. ICU Checklist Last Documented/Reviewed time: 04/30/2021 1:04 PM A= Assess, Prevent, Manage Pain Pain adequately controlled?: Yes C= Choice of Sedation and Analgesia B= Both Spontaneous Awakening and Breathing Trials Ventilator: None D= Delirium: Assess, Prevent and Manage ICU Delirium Status: CAM Negative - no action required Sleep adequate?: Yes Restraint Status: None E= Early Mobility/Excercise ICU Mobility: ICU Mobility-Pt Has Been Out of Bed: PT Consult - Specify, Yes F= Family Engagement and Empowerment ICU plan of care visit at bedside in last 24 hours: Yes, Provider, RN, Patient/ designee ICU Disposition: Discharge Planning: Home Prevention: Line Status: Central multi-lumen catheter Conway Status: Present, will discontinue today Pressure Injury Status: None GI/Stress Ulcer Prophylaxis: None - not required Nutrition is at Goal: Yes VTE Prophylaxis: Chemoprophylaxis: Heparin SQ Mechanical Prophylaxis: Knee high SCD Assessment AND Plan Active Hospital Problems as of 04/30/2021 Noted - Resolved POA Neurology Acute post-operative pain 04/26/2021 - Present Unknown Current Assessment AND Plan S/p ablation on 04/26 Assessment: c/o headache - improved today PLAN: - PRN ibuprofen and tylenol Cardiovascular Air embolus (HCC) 04/27/2021 - Present Unknown Current Assessment AND Plan Air noted on CT in inferior vena cava, hepatic veins, and epigastric vessels Per IR [facility] note During cryoablation of desmoid tumor, 90cc air was administered into soft tissue for pneuomodissection. CT performed after : Air embolus demonstrated in the inferior vena cava, hepatic veins, and some of the smaller branches, notably, the inferior epigastric vessels. ?In the chest, there was only a miniscule amount of air identified with diffuse foci in the right atrium and right ventricle. 04/27 RUQ US to look for air in hepatic vasculature, no air noted ECHO with no air noted CT chest with no evidence of air embolism within the systemic veins, right-sided heart chambers, central pulmonary arteries and hepatic veins CT A/P with resolution of intravenous gas within the abdomen and pelvis Assessment: maintaining adequate saturations on room air PLAN: - encourage cough /deep breathe - follow up as noted for desmoid tumor Pulmonary Acute respiratory insufficiency 04/26/2021 - Present Unknown Current Assessment AND Plan Intubated in IR (cryoablation of desmoid tumor), transferred to SICU intubated and on 100% FiO2 Assessment: extubated, desaturation on RA 04/29 Diuresed with 20mg lasix yesterday 04/29 Maintaining adequate saturations on room air today KIMBER (more content not included)...[facility]10-11-2021 NoteHNO ID: [id number] Author: Kayce Ricardo MD Service: Radiology Author Type: Physician Type: Progress Notes Filed: 04/29/2021 1:56 PM Note Text: I spoke to the patient this morning after extubation. I discussed the air embolus to the IVC and reviewed the management and precautions taken thereafter and the resolution on the most recent imaging with conservative management. She and her had excellent insight into the situation and the different teams that were involved, and she was overall thankful the cryoablation was otherwise successful.From the cryoablation perspective, Mrs. Pineda reports minimal abdominal pain symptoms at the time I was talking to her. I have discussed the usual post-cryoablation care with Dr. Berger, the needs of which at this point are only to finish the steroid taper upon discharge. After discussion with Dr. Berger, she will need to be watched for likely one more night with respect to the recent extubation, ongoing oxygen supplementation needs, and recent fevers to ensure it is safe for her to go home. Kayce Ricardo MD [phone] NoteHNO ID: [id number] Author: Marva Stiles APRN.[email or web address] Service: Critical Care Author Type: Nurse Practitioner Type: Progress Notes Filed: 04/29/2021 11:15 AM Note Text: SERVICE DATE: 04/29/2021 SERVICE TIME: 11:07 AM SURGICAL INTENSIVE CARE UNIT PROGRESS NOTE BRIEF HPI: 35yF PMHx abdominal wall desmoid tumor who presented for cryoablation on 04/26. During the procedure, an unknown amount of air (estimated 50-70cc) was inadvertently injected into her IVC and hepatic veins. Pt was kept intubated and transferred to SICU for hemodynamic monitoring. ECHO showed no R strain or presence of air. Portable head CT was negative. Pt was managed conservatively and kept intubated. CT eventually showed no evidence of air embolism within systemic veins, R-sided heart chambers, central pulmonary arteries, and hepatic veins with resolution of intravenous gas within abdomen and pelvis. Pt was successfully extubated on 04/29. Pt with no further ICU needs. Subjective INTERVAL EVENTS: Extubated with no issues. Requiring 2L NC with desaturation on RA. Diuresing with 20mg IV lasix. De-escalated to unasyn. Completed decadron -> transitioned to medrol. Consulted [facility] for transfer of service. Addendum @ 1115: pt to remain in SICU, [facility] does not feel comfortable accepting pt given supplemental O2 needs and < 24 hrs since extubation. Objective MEDICATIONS: Current medications and allergies reviewed. Recommended/planned medication changes discussed in detail in the A/P section below. Please refer to [facility] for list of inpatient medications. VITAL SIGNS: BP 126/69 Pulse 75 Temp 37.2 ?C (98.9 ?F) (Oral) Resp 22 Wt 80.1 kg (176 lb 9.4 oz) LMP 04/18/2021 SpO2 96% BMI 31.28 kg/m? Current Weight: Weight: 80.1 kg (176 lb 9.4 oz) Admission Weight: Weight: 71.6 kg (157 lb 13.6 oz) PHYSICAL EXAM: General: Alert, no distress, cooperative Skin: Skin color, texture, turgor normal. No rashes or lesions. Eyes: PERRLA Lungs: Lungs clear to auscultation, Good diaphragmatic excursion Cardiac: Normal S1 and S2; no rubs, murmurs, or gallops Abdomen: Abdomen soft, non-tender, BS normal, No masses or organomegaly Neuro: AANDOx3 Pulses: 2+ radial, 2+ dorsalis pedis Wound: Clean, dry and intact DATA: Diagnostic tests reviewed for today's visit: Most recent labs and imaging results. ICU Checklist Last Documented/Reviewed time: 04/29/2021 10:51 AM A= Assess, Prevent, Manage Pain Pain adequately controlled?: Yes C= Choice of Sedation and Analgesia RASS at Goal?: Yes B= Both Spontaneous Awakening and Breathing Trials Ventilator: None D= Delirium: Assess, Prevent and Manage ICU Delirium Status: CAM Negative - no action required Sleep adequate?: Yes Restraint Status: None E= Early Mobility/Excercise ICU Mobility: ICU Mobility-Pt Has Been Out of Bed: PT Consult - Specify, Yes F= Family Engagement and Empowerment ICU plan of care visit at bedside in last 24 hours: Yes, Provider, RN, Patient/ designee ICU Disposition: ICU Disposition- Is Patient Clinically Ready to Transfer to [facility] or SDU?: Yes, transfer to SDU or [facility] today Discharge Planning: Home Prevention: Line Status: Central multi-lumen catheter Central Line Status: Able to remove today Conway Status: Present, will discontinue today Pressure Injury Status: None GI/Stress Ulcer Prophylaxis: None - not required Nutrition is at Goal: Advancing to goal VTE Prophylaxis: Chemoprophylaxis: Heparin SQ Mechanical Prophylaxis: Knee high SCD Assessment AND Plan Neurology Acute post-operative pain S/p ablation on 04/26 Assessment: c/o headache PLAN: - PRN ibuprofen and tylenol - PT/OT, OOB to chair Cardiovascular Air embolus (HCC) Air noted on CT in inferior vena cava, hepatic veins, and epigastric vessels Per IR note During cryoablation of desmoid tumor, 90cc air was administered into soft tissue for pneuomodissection. CT performed after : Air embolus demonstrated in the inferior vena cava, hepatic veins, and some of the smaller branches, notably, the inferior epigastric vessels. ?In the chest, there was only a miniscule amount of air identified with diffuse foci in the right atrium and right ventricle. 04/27 RUQ US to look for air in hepatic vasculature, no air noted ECHO with no air noted CT chest with no evidence of air embolism within the systemic veins, right-sided heart chambers, central pulmonary arteries and hepatic veins CT A/P with resolution of intravenous gas within the abdomen and pelvis Assessment: requiring supplemental O2 s/p extubation PLAN: - Extubated with no issues, SpO2 > 92% - Transfer to [facility] or home tomorrow Pulmonary Acute respiratory insufficiency Intubated in IR (cryoablation of desmoid tumor), transferred to SICU intubated and on 100% FiO2 (more content not included)...[facility]10-11-2021 NoteHNO ID: [id number] Author: Jose M Cedillo MD Service: Interventional Radiology Author Type: Physician Type: Progress Notes Filed: 04/29/2021 8:55 AM Note Text: SIGN OFF NOTE EVALUATION DATE: 04/29/2021 EVALUATION TIME: 8:15 AM Subjective INTERVAL HISTORY: No acute overnight events. Pt states she feels well overall with no complaints. Objective Pt extubated and well-appearing. AAOx3 and sitting upright in bed. Normal vital signs and satting 96% on room air. Pt no longer febrile and still on IV Zosyn. Vital Signs (@0800) BP 125/76 HR 72 Temp 98.9 Intake/Output: Intake/Output Summary (Last 24 hours) at 04/29/2021 0845 Last data filed at 04/29/2021 0809 Gross per 24 hour Intake 2940.8 ml Output 4000 ml Net -1059.2 ml General Appearance: well appearing, well-hydrated, well nourished, Alert Lungs: normal breathing on room air; no dyspnea Heart: regular rhythm and rate Abdomen: negative Extremities: normal coloration with no cyanosis; SCDs in place Assessment/Plan 35F PMHx abdominal wall desmoid tumor who presented for cryoablation on 04/26 with [facility] radiology. Pt suffered iatrogenic air embolism to the IVC and hepatic veins with trace air in the right heart. Intravenous air has resolved and patient appears to now be back to her baseline post extubation. She's appears pleasant, in no acute distress, sitting upright in bed and breathing normally with no dyspnea, satting 96% on room air. Continued clinical monitoring and care per the ICU. IR will now sign off. SIGNATURE: Jose M Cedillo MD PATIENT NAME: Oscar Pineda DATE: April 29, 2021 TIME: 8:45 AM PAGER/CONTACT #:[facility]10-10-2021 NoteHNO ID: [id number] Author: Sara Guzman APRN.NGUYEN Service: Critical Care Author Type: Nurse Practitioner Type: Progress Notes Filed: 04/28/2021 2:52 PM Note Text: SERVICE DATE: 04/28/2021 SERVICE TIME: 2:50 PM SURGICAL INTENSIVE CARE UNIT PROGRESS NOTE BRIEF HPI: 35yF PMHx abdominal wall desmoid tumor who presented for cryoablation on 04/26. During the procedure, an unknown amount of air (estimated 50-70cc) was inadvertently injected into her IVC. Pt was kept intubated and transferred to SICU for hemodynamic monitoring. B/S ECHO showed no R strain or presence of air. Portable head CT was negative. Cardiology was consulted and considered IR for aspiration of remaining air. Proceding with conservative management at this time - Patient remains in [place], left lateral position, and intubated. Subjective INTERVAL EVENTS: Remains deeply sedated in trendelenburg, left lateral position. Plan for possible CT today. Fevers overnight, sputum culture sent. Objective MEDICATIONS: Current medications and allergies reviewed. Recommended/planned medication changes discussed in detail in the A/P section below. Please refer to [facility] for list of inpatient medications. VITAL SIGNS: BP 112/57 Pulse 71 Temp (!) 38.5 ?C (101.3 ?F) (Oral) Resp 17 Wt 71.6 kg (157 lb 13.6 oz) LMP 04/18/2021 SpO2 100% BMI 27.96 kg/m? Current Weight: Weight: 71.6 kg (157 lb 13.6 oz) Admission Weight: Weight: 71.6 kg (157 lb 13.6 oz) PHYSICAL EXAM: General: Intubated, deep sedation, trendelenburg Skin: Skin color, texture, turgor normal. No rashes or lesions. Eyes: PERRLA Lungs: Lungs clear to auscultation, Good diaphragmatic excursion Cardiac: Normal S1 and S2; no rubs, murmurs, or gallops Abdomen: Abdomen soft, non-tender, BS normal, No masses or organomegaly Neuro: Deep sedation Pulses: 2+ radial, 2+ dorsalis pedis Wound: Clean, dry and intact DATA: Diagnostic tests reviewed for today's visit: Most recent labs and imaging results. ICU Checklist Last Documented/Reviewed time: 04/28/2021 9:12 AM A= Assess, Prevent, Manage Pain Pain adequately controlled?: Yes C= Choice of Sedation and Analgesia RASS at Goal?: Yes B= Both Spontaneous Awakening and Breathing Trials Ventilator: Present Spontaneous Awakening?: No - specify (Comment: must stay deeply sedated at this time) Spontaneous Breathing?: No - specify Head of Bed > 30 degrees?: No - specify (Comment: trendelenburg) Mouth Care?: Yes D= Delirium: Assess, Prevent and Manage ICU Delirium Status: Deep Sedation - unable to assess Sleep adequate?: Yes Restraint Status: Present, will maintain Restraint Maintain Reason: Maintain safety of patient E= Early Mobility/Excercise ICU Mobility: ICU Mobility-Pt Has Been Out of Bed: No - Specify F= Family Engagement and Empowerment ICU plan of care visit at bedside in last 24 hours: Yes, Provider, RN, Patient/ designee ICU Disposition: ICU Disposition- Is Patient Clinically Ready to Transfer to [facility] or SDU?: No Discharge Planning: To be determined Prevention: Line Status: None Conway Status: Present, will maintain Conway Status Details: Accurate measurement of urine output Pressure Injury Status: None GI/Stress Ulcer Prophylaxis: PPI Nutrition is at Goal: NPO VTE Prophylaxis: Chemoprophylaxis: No chemoprophylaxis Mechanical Prophylaxis: Knee high SCD No Chemoprophylaxis Reason: Other - Specify Assessment AND Plan Active Hospital Problems as of 04/28/2021 Noted - Resolved POA Neurology Acute post-operative pain 04/26/2021 - Present Unknown Current Assessment AND Plan S/p ablation on 04/26 Assessment: deeply sedated PLAN: -- fentanyl infusion at straight rate 100mcg/hr for pain and sedation -- continue propofol for sedation (titrate) -- Started ketamine this am for sedation- to maintain airway and trendelenburg positioning Cardiovascular Air embolus (HCC) 04/27/2021 - Present Unknown Current Assessment AND Plan Assessment: Air noted on CT in inferior vena cava, hepatic veins as well as epigastric vessels. Per IR note During cryoablation of desmoid tumor, 90cc air was administered into soft tissue for pneuomodissection. CT performed after : Air embolus demonstrated in the inferior vena cava, hepatic veins, and some of the smaller branches, notably, the inferior epigastric vessels. ?In the chest, there was only a miniscule amount of air identified with diffuse foci in the right atrium and right ventricle. AST elevated today. 04/27 RUQ US to look for air in hepatic vasculature, no air noted ECHO with no air noted PLAN: -- daily CMP/follow liver enzymes -- continue positioning in Trendelenburg as above. Pulmonary Acute respiratory insufficiency 04/26/2021 - Present Unknown Current Assessment AND Pl (more content not included)...[facility]10-10-2021 NoteHNO ID: [id number] Author: Jose M Cedillo MD Service: Interventional Radiology Author Type: Physician Type: Progress Notes Filed: 04/29/2021 8:44 AM Note Text: PROGRESS NOTE EVALUATION DATE: 04/29/2021 EVALUATION TIME: 1148 Subjective INTERVAL HISTORY: No acute overnight events. Pt remains intubated/sedated, on 100% FiO2 satting 100%, with normal vital signs and in trendelenburg position. Objective General Appearance: intubated/sedated/Trendelenburg positioning Lungs: satting 100% on FiO2 Heart: regular rhythm and rate Abdomen: soft Extremities: normal skin coloration, no cyanosis Assessment/Plan 35F PMHx abdominal wall desmoid tumor who presented for cryoablation on 04/26 with [facility] radiology. Pt suffered iatrogenic air embolism to the IVC and hepatic veins with trace air in the right heart. Pt placed in Trendelenburg position and placed on 100% FiO2 (intubated) to decrease risk of cardiac/pulmonary air embolism and increase rate of nitrogen egress, respectively. RUQ ultrasound and initial wet-read CT c/a/p by me show no residual intravenous air (confirmed on final read). Okay to begin extubation process by the ICU team per ICU protocol. Continued close clinical monitoring by IR and the ICU team. SIGNATURE: Jose M Cedillo MD PATIENT NAME: Oscar Pineda DATE: April 29, 2021 TIME: 8:34 AM PAGER/CONTACT #:[facility]10-09-2021 NoteHNO ID: [id number] Author: Ana Bautista RT(R) Service: Radiology Author Type: Technologist Type: Progress Notes Filed: 04/27/2021 12:23 PM Note Text: Radiology Service Progress Note PATIENT NAME: Oscar Pineda DATE OF SERVICE: April 27, 2021 TIME: 12:23 PM PATIENT IDENTITY VERIFICATION COMPLETED USING TWO (2) IDENTIFIERS: Name and Date of confirmed by identification band and Name and Date of obtained from a relative, guardian or prior caregiver.. FALL SCREENING: Has the patient had 2 falls in the last year or 1 fall with injury or currently using an Ambulatory Assistive Device (Walker, Cane, Wheelchair, Crutches, etc.)? Inpatient: Screened on floor PATIENT GENDER DATA: Female. status: : No status: N/A PATIENT RELEVANT IMPLANT DATA REVIEWED: Not Applicable RADIOLOGY DEPARTMENT: Ultrasound PERIPHERAL IV DATA: Not applicable SIGNED BY: Ana Bautista RDMS, RVT, RMSMike April 27, 2021 12:23 [facility]10-09-2021 History of Past illness Narrative* Problem Noted Date Resolved Date Air embolus 04/27/2021 04/30/2021 Last Assessment & Plan: Air noted on CT in inferior vena cava, hepatic veins, and epigastric vessels Per IR [facility] note During cryoablation of desmoid tumor, 90cc air was administered into soft tissue for pneuomodissection. CT performed after : Air embolus demonstrated in the inferior vena cava, hepatic veins, and some of the smaller branches, notably, the inferior epigastric vessels. In the chest, there was only a miniscule amount of air identified with diffuse foci in the right atrium and right ventricle. 10/9 RUQ US to look for air in hepatic vasculature, no air noted ECHO with no air noted CT chest with no evidence of air embolism within the systemic veins, right-sided heart chambers, central pulmonary arteries and hepatic veins CT A/P with resolution of intravenous gas within the abdomen and pelvis Assessment: maintaining adequate saturations on room air PLAN: - encourage cough /deep breathe - follow up as noted for desmoid tumor Embolism of inferior vena cava 04/26/2021 1 Last Assessment & Plan: See air embolism Acute respiratory insufficiency 04/26/2021 04/30/2021 Last Assessment & Plan: Intubated in IR (cryoablation of desmoid tumor), transferred to SICU intubated and on 100% FiO2 Assessment: extubated, desaturation on RA 04/29 Diuresed with 20mg lasix yesterday 04/29 Maintaining adequate saturations on room air today PLAN: - Completed decadron, started on medrol 2mg x3 days (to complete 05/02) - encourage cough/ deep breathe - See air embolism Acute post-operative pain 04/26/20212020 Last Assessment & Plan: S/p ablation on 04/26 Assessment: c/o headache - improved today PLAN: - PRN ibuprofen and tylenol documented as of this encounter (statuses as of 11/01/2021) [facility]10-09-2021 History of Past illness Narrative* Problem Noted Date Resolved Date Air embolus 04/27/2021 04/30/2021 Last Assessment & Plan: Air noted on CT in inferior vena cava, hepatic veins, and epigastric vessels Per IR [facility] note During cryoablation of desmoid tumor, 90cc air was administered into soft tissue for pneuomodissection. CT performed after : Air embolus demonstrated in the inferior vena cava, hepatic veins, and some of the smaller branches, notably, the inferior epigastric vessels. In the chest, there was only a miniscule amount of air identified with diffuse foci in the right atrium and right ventricle. 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 1 Last Assessment & Plan: See air embolism Acute respiratory insufficiency 04/26/2021 04/30/2021 Last Assessment & Plan: Intubated in IR (cryoablation of desmoid tumor), transferred to SICU intubated and on 100% FiO2 Assessment: extubated, desaturation on RA 04/29 Diuresed with 20mg lasix yesterday 04/29 Maintaining adequate saturations on room air today PLAN: - Completed decadron, started on medrol 2mg x3 days (to complete 05/02) - encourage cough/ deep breathe - See air embolism Acute post-operative pain 04/26/20212020 Last Assessment & Plan: S/p ablation on 04/26 Assessment: c/o headache - improved today PLAN: - PRN ibuprofen and tylenol documented as of this encounter (statuses as of 11/19/2021) [facility]10-09-2021 History of Past illness Narrative* Problem Noted Date Resolved Date Air embolus 04/27/2021 04/30/2021 Last Assessment & Plan: Air noted on CT in inferior vena cava, hepatic veins, and epigastric vessels Per IR [facility] note During cryoablation of desmoid tumor, 90cc air was administered into soft tissue for pneuomodissection. CT performed after : Air embolus demonstrated in the inferior vena cava, hepatic veins, and some of the smaller branches, notably, the inferior epigastric vessels. In the chest, there was only a miniscule amount of air identified with diffuse foci in the right atrium and right ventricle. 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 1 Last Assessment & Plan: See air embolism Acute respiratory insufficiency 04/26/2021 04/30/2021 Last Assessment & Plan: Intubated in IR (cryoablation of desmoid tumor), transferred to SICU intubated and on 100% FiO2 Assessment: extubated, desaturation on RA 04/29 Diuresed with 20mg lasix yesterday 04/29 Maintaining adequate saturations on room air today PLAN: - Completed decadron, started on medrol 2mg x3 days (to complete 05/02) - encourage cough/ deep breathe - See air embolism Acute post-operative pain 04/26/20212020 Last Assessment & Plan: S/p ablation on 04/26 Assessment: c/o headache - improved today PLAN: - PRN ibuprofen and tylenol documented as of this encounter (statuses as of 04/22/2022) [facility]10-09-2021 History of Past illness Narrative* Problem Noted Date Resolved Date Air embolus 04/27/2021 04/30/2021 Last Assessment & Plan: Air noted on CT in inferior vena cava, hepatic veins, and epigastric vessels Per IR [facility] note During cryoablation of desmoid tumor, 90cc air was administered into soft tissue for pneuomodissection. CT performed after : Air embolus demonstrated in the inferior vena cava, hepatic veins, and some of the smaller branches, notably, the inferior epigastric vessels. In the chest, there was only a miniscule amount of air identified with diffuse foci in the right atrium and right ventricle. 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 1 Last Assessment & Plan: See air embolism Acute respiratory insufficiency 04/26/2021 04/30/2021 Last Assessment & Plan: Intubated in IR (cryoablation of desmoid tumor), transferred to SICU intubated and on 100% FiO2 Assessment: extubated, desaturation on RA 04/29 Diuresed with 20mg lasix yesterday 04/29 Maintaining adequate saturations on room air today PLAN: - Completed decadron, started on medrol 2mg x3 days (to complete 05/02) - encourage cough/ deep breathe - See air embolism Acute post-operative pain 04/26/20212020 Last Assessment & Plan: S/p ablation on 04/26 Assessment: c/o headache - improved today PLAN: - PRN ibuprofen and tylenol documented as of this encounter (statuses as of 04/29/2022) [facility]10-09-2021 History of Past illness Narrative* Problem Noted Date Diagnosed Date Resolved Date Air embolus 04/27/2021 04/30/2021 Last Assessment & Plan: Air noted on CT in inferior vena cava, hepatic veins, and epigastric vessels Per IR [facility] note During cryoablation of desmoid tumor, 90cc air was administered into soft tissue for pneuomodissection. CT performed after : Air embolus demonstrated in the inferior vena cava, hepatic veins, and some of the smaller branches, notably, the inferior epigastric vessels. In the chest, there was only a miniscule amount of air identified with diffuse foci in the right atrium and right ventricle. 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 04/30/2021 Last Assessment & Plan: See air embolism Acute respiratory insufficiency 04/26/2021 04/30/2021 Last Assessment & Plan: Intubated in IR (cryoablation of desmoid tumor), transferred to SICU intubated and on 100% FiO2 Assessment: extubated, desaturation on RA 04/29 Diuresed with 20mg lasix yesterday 04/29 Maintaining adequate saturations on room air today PLAN: - Completed decadron, started on medrol 2mg x3 days (to complete 05/02) - encourage cough/ deep breathe - See air embolism Acute post-operative pain 04/26/2021 Last Assessment & Plan: S/p ablation on 04/26 Assessment: c/o headache - improved today PLAN: - PRN ibuprofen and tylenol documented as of this encounter (statuses as of 02/25/2023) [facility]10-09-2021 NoteHNO ID: [id number] Author: Anila Wise APRN.[employer] Service: Critical Care Author Type: Nurse Practitioner Type: Progress Notes Filed: 04/27/2021 11:45 AM Note Text: SERVICE DATE: 04/27/2021 SERVICE TIME: 11:40 AM SURGICAL INTENSIVE CARE UNIT PROGRESS NOTE BRIEF HPI: 35yF PMHx abdominal wall desmoid tumor who presented for cryoablation on 04/26. During the procedure, an unknown amount of air (estimated 50-70cc) was inadvertently injected into her IVC. Pt was kept intubated and transferred to SICU for hemodynamic monitoring. B/S ECHO showed no R strain or presence of air. Portable head CT was negative. Cardiology was consulted and considered IR for aspiration of remaining air. Proceding with conservative management at this time - Patient remains in [place], left lateral position, and intubated. Subjective INTERVAL EVENTS: Difficulty maintaining sedation this am - added ketamine infusion in addition to propofol and continuous fentanyl to maintain airway. Discussed extensively at bedside with IR, SICU attending and patients - plan for now to hold on any procedure as to keep patient in trendelenburg positioning. Repeat CXR, ECHO and RUQ US today. Objective MEDICATIONS: Current medications and allergies reviewed. Recommended/planned medication changes discussed in detail in the A/P section below. Please refer to [facility] for list of inpatient medications. VITAL SIGNS: BP 89/50 Pulse (!) 51 Temp 36.5 ?C (97.7 ?F) (Oral) Resp 14 Wt 71.6 kg (157 lb 13.6 oz) LMP 04/18/2021 SpO2 100% BMI 27.96 kg/m? Current Weight: Weight: 71.6 kg (157 lb 13.6 oz) Admission Weight: Weight: 71.6 kg (157 lb 13.6 oz) PHYSICAL EXAM: General: Intubated, deeply sedated. Trendelenburg positioning Skin: Skin color, texture, turgor normal. No rashes or lesions. Eyes: PERRLA Lungs: Lungs clear to auscultation, Good diaphragmatic excursion Cardiac: Normal S1 and S2; no rubs, murmurs, or gallops Abdomen: Abdomen soft, non-tender, BS normal, No masses or organomegaly Neuro: intubated and deeply sedated on propofol, fentanyl and ketamine infusions. Pulses: 2+ radial, 2+ dorsalis pedis Wound: Clean, dry and intact DATA: Diagnostic tests reviewed for today's visit: Most recent labs and imaging results. ICU Checklist Last Documented/Reviewed time: 04/27/2021 10:58 AM A= Assess, Prevent, Manage Pain Pain adequately controlled?: Yes C= Choice of Sedation and Analgesia RASS at Goal?: Yes B= Both Spontaneous Awakening and Breathing Trials Ventilator: Present Spontaneous Awakening?: No - specify (Comment: must stay deeply sedated at this time) Spontaneous Breathing?: No - specify Head of Bed > 30 degrees?: No - specify (Comment: trendelenburg) Mouth Care?: Yes D= Delirium: Assess, Prevent and Manage ICU Delirium Status: Deep Sedation - unable to assess Sleep adequate?: Yes Restraint Status: Present, will maintain Restraint Maintain Reason: Maintain safety of patient E= Early Mobility/Excercise ICU Mobility: ICU Mobility-Pt Has Been Out of Bed: No - Specify F= Family Engagement and Empowerment ICU plan of care visit at bedside in last 24 hours: Yes, Provider, RN, Patient/ designee ICU Disposition: ICU Disposition- Is Patient Clinically Ready to Transfer to [facility] or SDU?: No Discharge Planning: To be determined Prevention: Line Status: None Conway Status: Present, will maintain Conway Status Details: Accurate measurement of urine output Pressure Injury Status: None GI/Stress Ulcer Prophylaxis: PPI Nutrition is at Goal: NPO VTE Prophylaxis: Chemoprophylaxis: No chemoprophylaxis Mechanical Prophylaxis: Knee high SCD No Chemoprophylaxis Reason: Other - Specify Assessment AND Plan Neurology Acute post-operative pain S/p ablation on 04/26 Assessment: deeply sedated PLAN: -- fentanyl infusion at straight rate 100mcg/hr for pain and sedation -- continue propofol for sedation (titrate) -- Started ketamine this am for sedation- to maintain airway and trendelenburg positioning Cardiovascular Air embolus (HCC) Assessment: Air noted on CT in inferior vena cava, hepatic veins as well as epigastric vessels. Per IR note During cryoablation of desmoid tumor, 90cc air was administered into soft tissue for pneuomodissection. CT performed after : Air embolus demonstrated in the inferior vena cava, hepatic veins, and some of the smaller branches, notably, the inferior epigastric vessels. ?In the chest, there was only a miniscule amount of air identified with diffuse foci in the right atrium and right ventricle. AST elevated today. PLAN: -- RUQ US to look for air in hepatic vasculature -- daily CMP/follow liver enzymes -- continue positioning in Trendelenburg as above. Pulmonary Acute respiratory insufficie (more content not included)...[facility]10-09-2021 NoteHNO ID: [id number] Author: Jose M Cedillo MD Service: Interventional Radiology Author Type: Physician Type: Plan of Care Filed: 04/27/2021 10:40 AM Note Text: Pt seen and evaluated at bedside. Pt remains in stable condition in Trendelenburg/left lateral decubitus position with 100% FiO2, intubated and sedated. IR continuing to monitor. No CT imaging/intervention recommended at this time due to pt's stability and need for sustained position; change in position (i.e. supine position) can cause dislodgement of residual air to the RVOT. Today's covering IR staff, Dr. Lily Davidson, is aware of current plan. Recommendations: 1. Continue 100% FiO2 2. Maintain trendelenburg/left lateral decubitus position 3. Close monitoring of vitals and clinical presentation by the ICU team 4. F/u CARY by primary team (attemtp to visualize IVC/hepatic veins if possible) 5. RUQ ultrasound to look for air in the [facility] veinsMet[facility]21 NoteHNO ID: [id number] Author: Interface Note Service: ? Author Type: ? Type: Progress Notes Filed: 04/27/2021 2:51 AM Note Text: Epic Scheduled Downtime: 04/27/2021 1:00:00 AM to 04/27/2021 2:33:00 [facility]10-08-2021 NoteHNO ID: [id number] Author: Marva Stiles APRN.CNP Service: Critical Care Author Type: Nurse Practitioner Type: Progress Notes Filed: 04/26/2021 5:30 PM Note Text: SERVICE DATE: 04/26/2021 SERVICE TIME: 5:26 PM SURGICAL INTENSIVE CARE UNIT ADMISSION NOTE BRIEF HPI: 35yF PMHx abdominal wall desmoid tumor who presented for cryoablation on 04/26. During the procedure, an unknown amount of air (estimated 50-70cc) was inadvertently injected into her IVC. Pt was kept intubated and transferred to SICU for hemodynamic monitoring. B/s ECHO showed no R strain or presence of air. Portable head CT was negative. Cardiology was consulted and pt to go to IR for aspiration of remaining air. In the meantime, pt to remain in [place], left lateral position, and intubated. Central line to be placed in case of emergency. Subjective INTERVAL EVENTS: Pt admitted from IR for hemodynamic monitoring. Per report, 50-70cc of air was inadvertently injected into IVC. Vitals remain stable. Cards and IR consulted -> plan for pt to have air aspirated with IR. In meantime, central line being placed and pt to remain intubated on 100% FiO2, in [place], and L lateral position. Objective MEDICATIONS: Current medications and allergies reviewed. Recommended/planned medication changes discussed in detail in the A/P section below. Please refer to [facility] for list of inpatient medications. VITAL SIGNS: BP 104/64 Pulse (!) 57 Temp 36.9 ?C (98.4 ?F) (Oral) Resp 16 Wt 71.6 kg (157 lb 13.6 oz) LMP 04/18/2021 SpO2 100% BMI 27.96 kg/m? Current Weight: Weight: 71.6 kg (157 lb 13.6 oz) Admission Weight: Weight: 71.6 kg (157 lb 13.6 oz) PHYSICAL EXAM: General: Intubated and sedated Skin: Skin color, texture, turgor normal. No rashes or lesions. Eyes: PERRLA Lungs: Lungs clear to auscultation, Good diaphragmatic excursion Cardiac: Normal S1 and S2; no rubs, murmurs, or gallops, Rate: bradycardia Abdomen: Abdomen soft, non-tender, BS normal, No masses or organomegaly Neuro: Moving all extremities and opening eyes but not following commands Pulses: 2+ radial, 2+ dorsalis pedis Wound: Clean, dry and intact DATA: Diagnostic tests reviewed for today's visit: Most recent labs and imaging results. ICU Checklist Last Documented/Reviewed time: 04/26/2021 4:17 PM A= Assess, Prevent, Manage Pain Pain adequately controlled?: Yes C= Choice of Sedation and Analgesia RASS at Goal?: Yes B= Both Spontaneous Awakening and Breathing Trials Ventilator: Present Spontaneous Awakening?: Yes Spontaneous Breathing?: Yes Head of Bed > 30 degrees?: Yes Mouth Care?: Yes D= Delirium: Assess, Prevent and Manage ICU Delirium Status: CAM Positive - existing, continue interventions Sleep adequate?: Yes Restraint Status: Present, will maintain Restraint Maintain Reason: Maintain safety of patient E= Early Mobility/Excercise ICU Mobility: ICU Mobility-Pt Has Been Out of Bed: No - Specify F= Family Engagement and Empowerment ICU plan of care visit at bedside in last 24 hours: Yes, Provider, RN, Patient/ designee ICU Disposition: ICU Disposition- Is Patient Clinically Ready to Transfer to [facility] or SDU?: No Discharge Planning: To be determined Prevention: Line Status: None Conway Status: Present, will maintain Conway Status Details: Accurate measurement of urine output Pressure Injury Status: None GI/Stress Ulcer Prophylaxis: PPI Nutrition is at Goal: NPO VTE Prophylaxis: Chemoprophylaxis: No chemoprophylaxis Mechanical Prophylaxis: Knee high SCD No Chemoprophylaxis Reason: Other - Specify Assessment AND Plan Neurology Acute post-operative pain S/p ablation on 04/26 Assessment: deeply sedated PLAN: - PRN fentanyl for pain control - Propofol for sedation while intubated, aim for RASS -3 to -4 given venous air embolism Pulmonary Acute respiratory insufficiency Transferred to SICU intubated and on 100% FiO2 PLAN: - Keep intubated and on 100% FiO2 - See embolism of IVC Gastrointestinal 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 (present on admission) Unknown amount of air (estimated 50-70cc) inadvertently injected into IVC during IR ablation procedure, CT showed air in IVC and hepatic veins, pt transferred to SICU intubated and sedated PLAN: - B/s ECHO done -> no evidence of R heart strain or air present - Head CT done -> negative - Cards consulted -> recommending IR to place fem sheath to aspirate air - Keep pt intubated on 100% FiO2 and in L lateral position/trendelenburg - Central line placed in case of emergency Medication and Non-Pharmacologic VTE Prophylaxis/Anticoagulants 04/26/21 1245 vte pharmacologic prophyl (more content not included)...[facility]10-08-2021 NoteHNO ID: [id number] Author: Galdino Gaona DO Service: Critical Care Author Type: Fellow Type: Procedures Filed: 04/26/2021 4:34 PM Note Text: BEDSIDE PROCEDURE NOTE CENTRAL LINE INSERTION Date/Start Time: 04/26/2021 4:33 PM Performed by: Galdino Gaona DO Authorized by: Polly Reyna MD Informed Consent Consent Obtained: Written [place] Protocol A moment to CARE was completed. SIGN IN Personnel directly involved with the procedure wore the appropriate PPE. Special Equipment: N/A Patient/Surrogate Stated/Verified: Patient name, Date of , Relevant allergies and Intended procedure TIME OUT Intended patient and procedure match the source document(s). Consent documented and matches the intended procedure. Relevant labs, photos, and/or imaging studies have been reviewed. No correct side/site applicable for marking and visibility. Medications required for procedure verified. No fire risk assessment and interventions applicable. No implant(s) inserted. Pre-procedure details: The area was prepped with chlorhexidine (Chloroprep) and allowed to dry. A sterile full body drape was applied following the usual aseptic technique. [facility] Central Line Insertion Checklist, attached to the Central Line- Associated Bloodstream Infection Prevention policy utilized: Yes Medications: Local Anesthesia (see MAR): Lidocaine 2% Sedation (see MAR): Propofol Procedure details: Indication: Vasoactive medication Patient Position: Trendelenburg Site: Right internal jugular vein New Stick: The vessel was cannulated using direct imaging visualization with an 18 gauge angiocath. Ultrasound guidance used and image not captured A 16 cm triple-lumen, 7Fr, non-tunneled, pressure injectable, antimicrobial catheter was advanced over the guidewire and left in situ while the guidewire was removed. The catheter was secured in place at 16 cm Securement: Line sutured, sterile caps on all hubs and sterile dressing applied Assessment: Blood return through all ports and free fluid flow All catheters, needles, and wires were accounted for and intact Number of Attempts: 1 Successful Placement: yes Post-procedure Details: Patient tolerated the procedure well with no immediate complications Estimated Blood Loss: None Specimens Sent: none SIGN OUT No specimen collected. No instruments, equipment or retained foreign bodies applicable. Post-procedure follow-up management communicated and Plan of Care Visit completed when applicable SIGNATURE: Galdino Gaona DO PATIENT NAME: Oscar Pineda DATE: April 26, 2021 TIME: 4:32 [facility] NoteHNO ID: [id number] Author: Polly Reyna MD Service: Critical Care Author Type: Anesthesiologist Type: Plan of Care Filed: 04/26/2021 3:38 PM Note Text: Patient arrived in SICU after >50 ml of air was injected into IVC during an ablation procedure in the CT suite. CTabdomen showed air in the IVC and hepatic veins. Patient arrived intubated and sedated. Awakening trial was done. Patient is able to move all extremities. But did not follow commands. STAT head CT did not show any acute intra-cranial abnormality. Bedside echo done which did not show any air in the R atrium or ventricle. No R sided strain either. Cardiology service consulted. They are recommending a Femoral Sheath by IR to aspirate air from IVC. Discussed it with IR Staff Jose M Siddiqui MD ( Risks vs benefits). In the meantime, we'll keep the patient in left lateral decubitus and [place]. Patient's updated. Will place a central line for any emergency. Veronika Reyna MD SICU Staff. Critical Care Time: 120 minutesMet[facility]10-[facility]-2021 NoteHNO ID: [id number] Author: Ha Berrios, CT Service: Radiology Author Type: Clinical Field Professional Type: Progress Notes Filed: 04/26/2021 1:47 PM Note Text: Radiology Service Progress Note PATIENT NAME: Oscar Pineda DATE OF SERVICE: April 26, 2021 TIME: 1:46 PM PATIENT IDENTITY VERIFICATION COMPLETED USING TWO (2) IDENTIFIERS: Name and Date of confirmed by identification band and Name and Date of obtained from a relative, guardian or prior caregiver.. FALL SCREENING: Has the patient had 2 falls in the last year or 1 fall with injury or currently using an Ambulatory Assistive Device (Walker, Cane, Wheelchair, Crutches, etc.)? Inpatient: Screened on floor PATIENT GENDER DATA: Female. status: : No status: NO. PATIENT RELEVANT IMPLANT DATA REVIEWED: Yes RADIOLOGY DEPARTMENT: CT; Exam(s) Completed: Brain PERIPHERAL IV DATA: Not applicable SIGNED BY: Ha Berrios, ELE April 26, 2021 1:46 [facility]08-12-2021 History of Present illness Narrative* Altagracia Langford RN - 02/28/2021 10:00 AM EDT Radiology Service Progress Note DATE OF SERVICE: February 28, 2021 TIME: 10:01 AM PATIENT WEIGHT: 154LBS PATIENT IDENTITY VERIFICATION COMPLETED USING TWO (2) STANDARD IDENTIFIERS: Name and Date of confirmed by patient verbally. FALL SCREENING: Has the patient had 2 falls in the last year or 1 fall with injury or currently using an Ambulatory Assistive Device (Walker, Cane, Wheelchair, Crutches, etc.)? No PATIENT GENDER DATA: Female. status: : No status: NO. ALLERGIES: Reviewed and unchanged CONTRAST ALLERGY: No EXAM: MRI - CONTRAST TYPE: GROUP II IV SITE: Ambulatory: A peripheral IV was started in the Left antecubital site with a Angio cath: 22gauge. and A Saline lock was inserted per protocol IV SITE APPEARANCE: Clean,Dry and Intact SIGNATURE: Altagracia Langford PATIENT NAME: Oscar Pineda DATE: February 28, 2021 TIME: 10:01 AM * Celeste Marinelli Tech - 02/28/2021 10:00 AM EDT Radiology Service Progress Note PATIENT NAME: Oscar Pineda DATE OF SERVICE: February 28, 2021 TIME: 12:12 PM PATIENT IDENTITY VERIFICATION COMPLETED USING TWO (2) IDENTIFIERS: Name and Date of confirmedby patient verbally. FALL SCREENING: Has the patient had 2 falls in the last year or 1 fall with injury or currently using an Ambulatory Assistive Device (Walker, Cane, Wheelchair, Crutches, etc.)? No PATIENT GENDER DATA: Female. status: : No status: NO. PATIENT RELEVANT IMPLANT DATA REVIEWED: Yes tattoos, piercings RADIOLOGY DEPARTMENT: MR; Exam(s) Completed: mr abd/msk wwo 15cc dotarem existing l ac iv, Lizzy Perez RN PERIPHERAL IV DATA: Site assessment: Clean,Dry and Intact, Site disposition Discontinued SIGNED BY: Celeste Marinelli A.A.S.,RT (R) (CT)(MR) February 28, 2021 12:12 PM [facility] 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 Intra-abdominal and pelvic swelling, mass and lump, unspecified site Abdominal mass, unspecified abdominal location documented in this encounter [facility] note* Diagnosis History of tumor- Primary Personal history of other specified diseases documented in this encounter [facility] noteNo InformationNortDepartment of [facility] Other History general Narrative - Reported* Type Description Date Medical History Fatigue Medical History Gall bladder polyp Medical History Atopic dermatitis, mild Medical History DESMOID FIBROMATOSIS Surgical History C section x 3 Surgical History wisdom teeth Surgical History RIGHT ABDOMINAL WALL MASS Hospitalization History see above [place] [facility] Other Advance Directives No Advanced Directives Records FoundDocuments on File Type Date Recorded 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 Advance Directive(s) 04/10/2021 12:55 PM Advance Directive(s) 03/07/2021 6:15 PM Reason for Referral Specialty Diagnoses / Procedures Referred By Contac t Referred To Contact MR IMAGING Diagnoses Desmoid Abdominal mass, unspecified abdominal location Procedures MRI PELVIS WO/W IVCON MRI PELVIS W/O & [place] [id number] [place] [id number] Mr Imaging Referral ID Status Reason Start Date Expiration Date V isits Requested Visits Authorized [id number] Closed Auto-Generate d Referral 03/30/2022 10/27/2022 1 1 Specialty Diagnoses / Procedures Referred By Contac t Referred To Contact MR IMAGING Diagnoses Desmoid Intra-abdominal and pelvic swelling, mass and lump, unspecified site Procedures MRI ABDOMEN WO/W IVCON MRI ABDOMEN W/O & [place] [id number] [place] [id number] Mr Imaging Referral ID Status Reason Start Date Expiration Date V isits Requested Visits Authorized [id number] Closed Auto-Generate d Referral 03/30/2022 10/27/2022 1 1 Specialty Diagnoses / Procedures Referred By Contac t Referred To Contact MR IMAGING Diagnoses History of tumor Procedures MRI PELVIS WO/W IVCON MRI PELVIS W/O & [place] [id number] [place] [id number] Mr Imaging Referral ID Status Reason Start Date Expiration Date Visits Requested Visits Authorized [id number] Pending Review Auto-Generat ed Referral 10/28/2022 05/29/2023 1 1 Specialty Diagnoses / Procedures Referred By Contac t Referred To Contact MR IMAGING Diagnoses History of tumor Procedures MRI ABDOMEN WO/W IVCON MRI ABDOMEN W/O & [place] [id number] [place] [id number] Mr Imaging Referral ID Status Reason Start Date Expiration Date Visits Requested Visits Authorized [id number] Pending Review Auto-Generat ed Referral 10/28/2022 05/29/2023 1 1 Summary Purpose Family History No Family History Records FoundNo Family History Records FoundNo Family History Records Found Additional Source Comments Source Comments (unrecognize d section and content) In the event this informatio n is protected by the Federal Confidentiality of Alcohol and Drug Abuse Patient Records regulations: The Federal rules restrict any use of the information to criminally investigate or prosecute any alcohol or drug abuse patient.[facility] the event this information is protected by the Federal Confidentiality of Alcohol and Drug Abuse Patient Records regulations: The Federal rules restrict any use of the information to criminally investigate or prosecute any alcohol or drug abuse patient.[facility] HospitalIn the event this information is protected by the Federal Confidentiality of Alcohol and Drug Abuse Patient Records regulations: The Federal rules restrict any use of the information to criminally investigate or prosecute any alcohol or drug abuse patient.[facility] HospitalIn the event this information is protected by the Federal Confidentiality of Alcohol and Drug Abuse Patient Records regulations: The Federal rules restrict any use of the information to criminally investigate or prosecute any alcohol or drug abuse patient.[facility] HospitalIn the event this information is protected by the Federal Confidentiality of Alcohol and Drug Abuse Patient Records regulations: The Federal rules restrict any use of the information to criminally investigate or prosecute any alcohol or drug abuse patient.[facility] Hospital[facility] the event this information is protected by the Federal Confidentiality of Alcohol and Drug Abuse Patient Records regulations: The Federal rules restrict any use of the information to criminally investigate or prosecute any alcohol or drug abuse patient.[facility] Reason for Visit (unrecogniz ed section and content) Reason Comments Care Coordination Reason Comments Radiology MRI Specialty Diagnoses / Procedures Referred By Contac t Referred To Contact MR IMAGING Diagnoses Desmoid Intra-abdominal and pelvic swelling, mass and lump, unspecified site Procedures MRI ABDOMEN WO/W IVCON MRI ABDOMEN W/O & W/[place] [id number] [place] [id number] Mr Imaging Referral ID Status Reason Start Date Expiration Date V isits Requested Visits Authorized [id number] Closed Auto-Generate d Referral 03/30/2022 10/27/2022 1 1 Reason Comments Established Patient Reason Comments Radiology MRI Specialty Diagnoses / Procedures Referred By Contac t Referred To Contact MR IMAGING Diagnoses Intra-abdominal and pelvic swelling, mass and lump, unspecified site Procedures MRI ABDOMEN WO/W IVCON MRI,ABDOMEN,W&WO Cortez Dubois MD [address] [facility] [place] [address] [place] [address] [address] Referral ID Status Reason Start Date Expiration Date V isits Requested Visits Authorized [id number] Closed Auto-Generate d Referral 02/14/2021 03/16/2022 1 1 Care Teams (unrecognized sec tion and content) Medical Practice Assistant Relationship Specialty [place] [address] [place] [phone] Physician Hematology/Oncology 05/20/21 Chey Tamayo, JOSE [address] [place] [phone] Specialty Cabin Agent Oncology 05/20/21 Medical Practice Assistant Relationship Specialty Start Date End Date Melani Russell MD [address] [place] [id number] Physician Hematology/Oncology 05/20/21 Claritza Tamayo, RN [address] [place] [phone] Specialty Cabin Agent Oncology 05/20/21 Medical Practice Assistant Relationship Specialty Start Date End Date Melani Russell MD [address] [place] [id number] Physician Hematology/Oncology 05/20/21 Claritza Tamayo, RN [address] [place] [id number] Specialty Cabin Agent Oncology 05/20/21 Medical Practice Assistant Relationship Specialty Start Date End Date Melani Russell MD [address] [place] [address] [id number] Physician Hematology/Oncology 05/20/21 Claritza Tamayo, RN [address] [place] [address] [id number] Specialty Cabin Agent Oncology 05/20/21 Medical Practice Assistant Relationship Specialty Start Date End Date Melani Russell MD [address] [place] [id number] Physician Hematology/Oncology 05/20/21 Suzanna Chaidez RN [address] [place] [phone] Specialty Cabin Agent Hematology/Oncology 06/10/22 INFORMATION SOURCE (unrecogn ized section and content) DATE CREATED AUTHOR 04/23/2022 [facility] DATE CREATED AUTHOR AUTHOR'S ORGANIZ ATION 11/02/2022 [facility] DATE CREATED AUTHOR AUTHOR'S ORGANIZ ATION 07/01/2023 [facility] EPIC FOR RECORDS PERTAINING TO PATIENTS WHO ARE OR HAVE BEEN ENROLLED IN A CHEMICAL DEPENDENCY/SUBSTANCEABUSE PROGRAM, SOME INFORMATION MAY BE OMITTED. This clinical summary was aggregated from multiple sources. Caution should be exercised in using it in the provision of clinical care. This summary normalizes information from multiple sources, and as a consequence, information in this document may materially change the coding, format and clinical context of patient data. In addition, data may be omitted in some cases. CLINICAL DECISIONS SHOULD BE BASED ON THE PRIMARY CLINICAL RECORDS. [employer] [facility]. provides no warranty or guarantee of the accuracy or completeness of information in this document.
[2023-07-27 10:40] LABS: Basophils Percent Auto 0.3 % (0.2-2.0); Eosinophils Absolute Auto 0.1 10^3/uL (0.0-0.7); Eosinophils Percent Auto 0.6 % (0.9-7.0); Hematocrit 35.6 % (36.0-48.0); Hemoglobin 11.9 g/dL (12.0-16.0); Immature Granulocytes Abs Auto 0.06 10^3/uL (0.00-0.03); Immature Granulocytes Pct Auto 0.5 % (0.0-0.5); Lymphocytes Absolute Auto 1.6 10^3/uL (1.2-3.8); Lymphocytes Percent Auto 14.7 % (20.5-60.0); Mean Corpuscular HGB Conc 33.4 g/dL (29.9-35.2); Mean Corpuscular Hemoglobin 33.1 pg (26.7-34.0); Mean Corpuscular Volume 98.9 fL (81.0-99.0); Mean Platelet Volume 9.3 fL (9.5-13.5); Monocytes Absolute Auto 0.3 10^3/uL (0.3-0.8); Monocytes Percent Auto 3.1 % (1.7-12.0); Neutrophils Percent Auto 80.8 % (43.0-75.0); Platelet Count 234 10^3/uL (150-450); Red Cell Distribution Width 12.6 % (11.0-15.0); White Blood Count 11.1 10^3/uL (4.0-11.0)
[2023-07-27 13:38] LABS: Glucose 1 Hour 95 mg/dL
== END 2023-07-27 09:18 | disposition home or self-care (01) ==
PROVIDERS: PCP Internal Medicine; Visit Provider Physician Assistant
DX: Z34.90 Encounter for supervision of normal pregnancy, unspecified, unspecified trimester (principal)
CPT/HCPCS: 36415; 82950; 85025

== ENCOUNTER 2023-07-31 18:00 | Outpatient (OUT) | payer OTHER, SELFPAY ==
--- NOTE | 2023-07-31 18:03 | US_ITS ---
[address] [address] Patient Name: OSCAR MELO MRN: [id number] date: 1985 Sex: F Assigned Patient Location: US Current Patient Location: US Accession/Order Number: [id number] Exam Date: 07/31/2023 18:10 Report Date: 08/04/2023 07:37 At the request of: SUKHJINDER WIN Procedure: US OB growth EXAMINATION: US OB growth HISTORY: EXCESSIVE GROWTH O36.60X0 COMPARISON: 03/13/2023 FINDINGS: Heart Rate: 137.1 bpm Amniotic Fluid Volume: 14.3 cm Number: 1.0 Position: Cephalic presentation, longitudinal lie Maximum Vertical Pocket: 3.6 cm cm 3.8 cm cm 3.1 cm cm 3.7 cm cm BIOMETRY: BPD: 7.7 cm cm; 31 weeks 0 days; greater than 97% HC: 27.7 cmcm; 30 weeks 2 days , 87% AC: 24.5 cm cm; 28 weeks 5 days, 64% FL: 5.4 cm cm; 28 weeks 4 days; 49.9 % % EFW: 1309.1 grams, 2 lbs. 14 oz., 74% FL/AC: 22.0 FL/BPD: 69.8 HC/AC: 1.1 GESTATIONAL AGE: Age by EDC: 28 weeks 0 days FUENTES by EDC: 10/23/2023 Age by US: 29 weeks 5 days FUENTES by US: 10/11/2023 US/US OB growth IMPRESSION: BPD greater than the 97th percentile Estimated weight 74th percentile Electronically authenticated by: SISI HURD Date: 08/04/2023 07:37
--- OUTSIDE RECORDS SUMMARY | 2023-07-31 18:03 | XMS_ITS | CCD ---
Author Name Unknown Address [address] [place] [address] Organization [facility] Care Team Providers Care Road Patcher Name Role Phone Drew JAMES, Melani Unavailable Yariel GARCIA, Chey Unavailable [phone] Yariel GARCIA, Claritza Andrade Unavailable Melani Russell MD Unavailable Claritza Tamayo RN Unavailable ALEX URBANO Referring Unavailable KAYCE RICARDO Attending [...] Primary Care Provider UnavailSUKHJINDER Van Attending Unavailable SUKHJINDER WIN Attending Unavailable ADRIANNE MERCHANT Attending Unavailable Allergies Allergy Classification Reported Allergen(s) Allergy Type Date of Onset Reaction(s) Facility (7 sources) Codeine; Translations: [CODEINE] Drug Allergy 1 GI Upset [facility] (7 sources) Adhesive Tape-Silicones; Translations: [ADHESIVE TAPE-SILICONES] Drug Allergy 1 Other: See Comments [facility] (2 sources) Adhesive agent Drug allergy Unknown [facility] Other (2 sources) Codeine Drug Allergy nausea [facility] Other (1 source) Codeine Drug Allergy 1 The [facility] (1 source) Desonide Drug Allergy 1 The [facility] Medications Current Medications Medication Drug Class(es) [...] 10-27-2022 BASO # 0.1 103/ul Normal 0.0-0.[address] [facility] Comment on above: Performed By: #### C BC #### [facility] [address] [address] [address] Rancho Cobos Basophils/100 WBC (Bld) 0.9 % Normal 0.2-2.[address] [facility] Comment on above: Performed By: #### C BC #### [facility] [address] [place] [address] Dr. Rancho Cobos EO # 0.1 103/ul Normal 0.0-0.[address] [facility] Comment on above: Performed By: #### C BC #### [facility] [address] [address] [address] Rancho Cobos Eosinophils/100 WBC (Bld) 1.4 % Normal 0.9-7.[address] [facility] Comment on above: Performed By: #### C BC #### [facility] [address] [place] [address] Dr. Rancho Cobos Erythrocyte distribution width (RBC) [Ratio] 11.8 % Normal 11.0-15.[address] [facility] Comment on above: Performed By: #### C BC #### [facility] [address] [place] [address] Dr. Rancho Cobos Hematocrit (Bld) [Volume fraction] 38.5 % Normal 36.0-48.[address] [facility] Comment on above: Performed By: #### C BC #### [facility] [address] [place] [address] Dr. Rancho Cobos Hemoglobin (Bld) [Mass/Vol] 13.3 g/dL Normal 12.0-16.[address] [facility] Comment on above: Performed By: #### C BC #### [facility] [address] [place] [address] Dr. Rancho Cobos IG # 0.01 10e3/ul Normal 0.00-0.[address] [facility] Comment on above: Performed By: #### C BC #### [facility] [address] [place] [address] Dr. Rancho Cobos IG % 0.2 % Normal 0.0-0.[address] [facility] Comment on above: Performed By: #### C BC #### [facility] [address] [place] [address] Dr. Rancho Cobos LYMPH # 1.7 103/ul Normal 1.2-3.[address] [facility] Comment on above: Performed By: #### C BC #### [facility] [address] [place] [address] Dr. Rancho Cobos Lymphocytes/100 WBC (Bld) 31.2 % Normal 20.5-60.[address] [facility] Comment on above: Performed By: #### C BC #### [facility] [address] [place] [address] Dr. Rancho Cobos MANUAL DIFF REQ NO Normal [facility] Comment on above: Performed By: #### C BC #### [facility] [address] [place] [address] Dr. Rancho Cobos MCH (RBC) [Entitic mass] 31.9 pg Normal 26.7-34.[address] [facility] Comment on above: Performed By: #### C BC #### [facility] [address] [place] [address] Dr. Rancho Cobos MCHC (RBC) [Mass/Vol] 34.5 g/dL Normal 29.9-35.[address] [facility] Comment on above: Performed By: #### C BC #### [facility] [address] [place] [address] Dr. Rancho Cobos MCV (RBC) [Entitic vol] 92.3 fL Normal 81.0-99.[address] [facility] Comment on above: Performed By: #### C BC #### [facility] [address] [place] [address] Dr. Rancho Cobos MONO # 0.3 103/ul Normal 0.3-0.[address] [facility] Comment on above: Performed By: #### C BC #### [facility] [address] [address] [address] Rancho Cobos Monocytes/100 WBC (Bld) 5.2 % Normal 1.7-12.[address] [facility] Comment on above: Performed By: #### C BC #### [facility] [address] [address] [address] Rancho Cobos NEUT # 3.4 103/ul Normal 1.4-6.[address] [facility] Comment on above: Performed By: #### C BC #### [facility] [address] [place] [address] Dr. Rancho Cobos Neutrophils/100 WBC (Bld) 61.1 % Normal 43.0-75.[address] [facility] Comment on above: Performed By: #### C BC #### [facility] [address] [place] [address] Dr. Rancho Cobos Platelet mean volume (Bld) [Entitic vol] 9.4 fL Critically low 9.5-13.[address] [facility] Comment on above: Performed By: #### C BC #### [facility] [address] [place] [address] Dr. Rancho Cobos PLT 261 103/ul Normal 150-450 [facility] Comment on above: Performed By: #### C BC #### [facility] [address] [place] [address] Dr. Rancho Cobos RBC 4.17 106/ul Critically low 4.20-5.40 [facility] Comment on above: Performed By: #### C BC #### [facility] [address] [place] [address] Dr. Rancho Cobos WBC 5.6 103/ul Normal 4.0-11.0 [facility] Comment on above: Performed By: #### C BC #### [facility] [address] [place] [address] Dr. Rancho Cobos LIPID PROFILEon 10-27-2022 CHOL-HDL RATIO NORM SEE BELOW Normal [facility] Comment on above: Result Comment: 3.3 - 4.4 LOW RISK 4.4 - 7.1 AVERAGE RISK 7.1 - 11.0 MODERATE RISK >11.0 HIGH RISK Performed By: #### C MP, LIPID, TSH #### [facility] [address] [address] [address] Rancho Cobos Cholesterol [Mass/Vol] 162 mg/dL Normal <=[address] [facility] Comment on above: Performed By: #### C MP, LIPID, TSH #### [facility] [address] [address] [address] Rancho Cobos Cholesterol in HDL [Mass/Vol] 56 mg/dL Normal 40-[address] [facility] Comment on above: Performed By: #### C MP, LIPID, TSH #### [facility] [address] [place] [address] Dr. Rancho Cobos Cholesterol in LDL [Mass/Vol] 97.0 mg/dL Normal [facility] Comment on above: Performed By: #### C MP, LIPID, TSH #### [facility] [address] [place] [address] Dr. Rancho Cobos Cholesterol.total/ Cholesterol in HDL [Mass ratio] 2.9 {ratio} Normal [facility] Comment on above: Performed By: #### C MP, LIPID, TSH #### [facility] [address] [place] [address] Dr. Rancho Cobos HDL NORMAL > or = 60 mg/dl - LO W CARDIOVASCULAR RISK <40 mg/dl - HIGH CARDIOVASCULAR RISK Normal [facility] Comment on above: Performed By: #### C MP, LIPID, TSH #### [facility] [address] [place] [address] Dr. Rancho Cobos LDL CALC NORMAL SEE BELOW Normal [facility] Comment on above: Result Comment: <100 mg/dl OPTIMAL 100 - 129 mg/dl NEAR OR ABOVE OPTIMAL 130 - 159 mg/dl BORDERLINE HIGH 160 - 189 mg/dl HIGH >190 mg/dl VERY HIGH Performed By: #### C MP, LIPID, TSH #### [facility] [address] [address] [address] Rancho Cobos Triglyceride [Mass/Vol] 45 mg/dL Normal <=150 [facility] Comment on above: Performed By: #### C MP, LIPID, TSH #### [facility] [address] [address] [address] Rancho Cobos VLDL CALC 9.0 mg/dL Normal [facility] Comment on above: Performed By: #### C MP, LIPID, TSH #### [facility] [address] [address] [address] Rancho Cobos PROF 14(COMP METB)on 023 Albumin [Mass/Vol] 4.0 g/dL Normal 3.4-5.0 [facility] Comment on above: Performed By: #### C MP, LIPID, TSH #### [facility] [address] [place] [address] Dr. Rancho Cobos Albumin/Globulin [Mass ratio] 1.2 {ratio} Normal [facility] Comment on above: Performed By: #### C MP, LIPID, TSH #### [facility] [address] [place] [address] Dr. Rancho Cobos ALP [Catalytic activity/Vol] 34 U/L Critically low 46-[address] [facility] Comment on above: Performed By: #### C MP, LIPID, TSH #### [facility] [address] [place] [address] Dr. Rancho Cobos ALT [Catalytic activity/Vol] 24 U/L Normal 14-[address] [facility] Comment on above: Performed By: #### C MP, LIPID, TSH #### [facility] [address] [place] [address] Dr. Rancho Cobos Anion gap [Moles/Vol] 12.1 mmol/L Normal [facility] Comment on above: Performed By: #### C MP, LIPID, TSH #### [facility] [address] [place] [address] Dr. Rancho Cobos AST [Catalytic activity/Vol] 17 U/L Normal 15-[address] [facility] Comment on above: Performed By: #### C MP, LIPID, TSH #### [facility] [address] [place] [address] Dr. Rancho Cobos Bilirubin [Mass/Vol] 0.5 mg/dL Normal 0.2-1.[address] [facility] Comment on above: Performed By: #### C MP, LIPID, TSH #### [facility] [address] [place] [address] Dr. Rancho Cobos Calcium [Mass/Vol] 9.2 mg/dL Normal 8.5-10.1 [facility] Comment on above: Performed By: #### C MP, LIPID, TSH #### [facility] [address] [address] [address] Rancho Cobos Chloride [Moles/Vol] 107 mmol/L Normal 98-[address] [facility] Comment on above: Performed By: #### C MP, LIPID, TSH #### [facility] [address] [place] [address] Dr. Rancho Cobos CO2 [Moles/Vol] 28.5 mmol/L Normal 21.0-32.0 [facility] Comment on above: Performed By: #### C MP, LIPID, TSH #### [facility] [address] [place] [address] Dr. Rancho Cobos Creatinine [Mass/Vol] 0.72 mg/dL Normal 0.55-1.[address] [facility] Comment on above: Performed By: #### C MP, LIPID, TSH #### [facility] [address] [place] [address] Dr. Rancho Cobos EGFR-AF FAROESE >60 Normal >=60 [facility] Comment on above: Performed By: #### C MP, LIPID, TSH #### [facility] [address] [place] [address] Dr. Rancho Cobos EGFR-NON AF FAROESE >60 Normal >=[address] [facility] Comment on above: Performed By: #### C MP, LIPID, TSH #### [facility] [address] [place] [address] Dr. Rancho Cobos Globulin (S) [Mass/Vol] 3.4 g/dL Normal [facility] Comment on above: Performed By: #### C MP, LIPID, TSH #### [facility] [address] [place] [address] Dr. Rancho Cobos Glucose [Mass/Vol] 92 mg/dL Normal 74-106 [facility] Comment on above: Performed By: #### C MP, LIPID, TSH #### [facility] [address] [address] [address] Rancho Cobos Potassium [Moles/Vol] 4.6 mmol/L Normal 3.5-5.[address] [facility] Comment on above: Performed By: #### C MP, LIPID, TSH #### [facility] [address] [place] [address] Dr. Rancho Cobos Protein [Mass/Vol] 7.4 g/dL Normal 6.4-8.2 [facility] Comment on above: Performed By: #### C MP, LIPID, TSH #### [facility] [address] [place] [address] Dr. Rancho Cobos Sodium [Moles/Vol] 143 mmol/L Normal 136-145 [facility] Comment on above: Performed By: #### C MP, LIPID, TSH #### [facility] [address] [place] [address] Dr. Rancho Cobos Urea nitrogen [Mass/Vol] 18.0 mg/dL Normal 7.0-18.[address] [facility] Comment on above: Performed By: #### C MP, LIPID, TSH #### [facility] [address] [place] [address] Dr. Rancho Cobos Urea nitrogen/Creatinin e [Mass ratio] 25.0 mg/mg Normal [facility] Comment on above: Performed By: #### C MP, LIPID, TSH #### [facility] [address] [place] [address] Dr. Rancho Cobos TSHon 10-27-2022 TSH 1.005 uIU/mL Normal 0.358-3.740 [facility] Comment on above: Performed By: #### C MP, LIPID, TSH #### [facility] [address] [place] [address] Dr. Rancho Cobos MRI ABDOMEN WO/W IVCONon MRI ABDOMEN WO/W IVCON * * *Final Report* * * DATE OF EXAM: Apr 21 2022 6:39PM QBM 0689 - MRI ABDOMEN WO/W IVCON [...] suspicious marrow signal abnormality. Lower chest: Unremarkable. Territory Service Representative (localizer) images: No additional findings. IMPRESSION: Evolving changes of RIGHT rectus abdominis muscle ablation without local recurrence. No metastatic disease in abdomen or pelvis Tire Mold Engraver: ANEL Transcribe Date/Time: Apr 22 2022 10:29A Dictated by : LIBRADO JOAQUIN DO This examination was interpreted and the report reviewed and electronically signed by: CANELO EDMONDSON MD on Apr 22 2022 12:49PM EST [id number] Normal [facility] MRI PELVIS WO/W IVCONon 10-0 MRI PELVIS [...] suspicious marrow signal abnormality. Lower chest: Unremarkable. Territory Service Representative (localizer) images: No additional findings. IMPRESSION: Evolving changes of RIGHT rectus abdominis muscle ablation without local recurrence. No metastatic disease in abdomen or pelvis Tire Mold Engraver: ANEL Transcribe Date/Time: Apr 22 2022 10:29A Dictated by : LIBRADO JOAQUIN, DO This examination was interpreted and the report reviewed and electronically signed by: CANELO EDMONDSON MD on Apr 22 2022 12:49PM EST [id number] Normal [facility] CNPAmi 10-28-2021 CNPN Telephone (HEMCA3) EDWINOSCAR ([id number]) 1985 F Date Time Provider Department 10/28/21 MELANI RUSSELL HEMCA3 During your visit today, we recorded the following information about you: Brittany Avendaño ADM 10/28/2021 10:04 AM Signed Oscar Edwin is calling Melani Russell MD today regarding Care Coordination,calling with questions about with her condition. Patient has been identified by name and birthdate. Duration of symptoms: N/A Requesting response back: call on cell [phone] (home) [phone] (cell) Brittany Avendaño ADM October 28, [address] [facility] 10/30/2021 3:25 PM Signed Patient calling stating she has not received a call back, Please call @ [phone] Melani Russell MD 11/19/2021 10:20 AM Signed This has been addressed through an [email or web address] message. Melani Russell MD, PhD Staff, Hematology and Medical Oncology Allergies As of Date: 10/28/2021 Noted Allergy Reaction CODEINE 02/01/2021 8 - GI Upset ADHESIVE TAPE-SILICONES 02/14/2021 14 - Other: See Comments Comments: Blisters Date Reviewed: 09/27/2021 Reviewed by: Aliya Jean Baptiste RN - Fully Assessed Reason for Visit: Care Coordination [4458] Prescriptions as of 11/19/2021 - sulindac (CLINORIL) [...] Encounter Status:Closed by BRITTANY LIAO on 11/01/21 [facility] CNOVSPon 09-27-2021 CNOVSP Visit (SP) Office (HEMCA4) EDWINKATHIEOSCAR ([id number]) 1985 F Date Time Provider Department 09/27/21 9:00 AM MELANI RUSSELL During your visit today, we recorded the following information about you: Pulse Respiration Blood pressure Weight 65/minute 20/minute 149/67 77.6 kg Melani Russell MD 10/07/2021 12:24 PM Signed [facility] [place] ESTABLISHED PATIENT VISIT PATIENT NAME: Oscar Pineda [...] Melani Pérez MD Internal Medicine Resident, PGY-1 [facility] 09/27/2021 SOLID TUMOR STAFF: ATTENDING PHYSICIAN NOTE [...] No Does patient want to see a Heel Cementer? No (yes to any of (more content not included)... Normal [facility] MRI ABDOMEN WO/W IVCONon MRI ABDOMEN WO/W [...] diffusion weighted and T1 weighted in- and [id number] images were obtained. Then, using a 3-D [...] muscle mass, without evidence for residual/recurrent disease. Tire Mold Engraver: PSCB Transcribe Date/Time: Sep 20 2021 4:49P Dictated by : CHRIS MILIAN MD This examination was interpreted and the report reviewed and electronically signed by: CHRIS MILIAN MD on Sep 20 2021 4:58PM EST [id number] Normal [facility] MRI PELVIS WO/W IVCONon 03-0 MRI PELVIS WO/W IVCON * * *Final Report* * * DATE OF EXAM: Sep 20 2021 4:30PM Q 0742 - MRI PELVIS WO/W IVCON / [...] diffusion weighted and T1 weighted in- and xpg-bf-[id number] images were obtained. Then, using a 3-D [...] muscle mass, without evidence for residual/recurrent disease. Tire Mold Engraver: [facility] Transcribe Date/Time: Sep 20 2021 4:49P Dictated by : CHRIS MILIAN MD This examination was interpreted and the report reviewed and electronically signed by: CHRIS MILIAN MD on Sep 20 2021 4:58PM EST [id number] [facility]HEMCA3) OSCAR PINEDA ([id number]) 1985 F Date Time Provider Department 08/09/[address] During your visit today, we recorded the [...] N/A Requesting response back: call on cell [phone] (home) [phone] (cell) Marva Burciaga Adm August 09, 2021 Chey Tamayo RN 08/09/2021 4:42 PM Signed Returned call to patient and informed her that moving her visit with Dr. Russell after the MRI would be best to establish a plan of care. Patient was appreciative of return call and information. Chey Tamayo RN Preassembler [employer] August 09, 2021 Allergies As of Date: 08/09/2021 Noted Allergy Reaction CODEINE 02/01/2021 8 - GI Upset ADHESIVE TAPE-SILICONES 02/14/2021 14 - Other: See Comments Comments: Blisters Date Reviewed: 04/30/2021 Reviewed by: Magda Rose RN - Fully Assessed Reason for Visit: Care Coordination [6881] Cmt: appointment question Prescriptions as of 08/09/2021 [...] Encounter Status:Closed by CLARITZA TAMAYO on 08/09/21 [facility] Nishant 05-22-2021 CNPN Telephone (GMINE) OSCAR PINEDA ([id number]) 1985 F Date Time Provider Department 05/22/21 MELIDA QUINTERO During your visit today, we recorded the following information about you: LANETTE De Leon 05/22/2021 2:32 PM Signed Patient name and was confirmed at initiation of discussion. Oscar Pineda's Common Hereditary Cancers Panel through [facility] was negative for a pathogenic variant. Please [...] Encounter Status:Closed by MELIDA QUINTERO on 05/22/21 [facility] 05-15-2021 [facility] Telephone (HEMCA3) OSCAR PINEDA ([id number]) 1985 F Date Time Provider Department 05/15/21 MELANI RUSSELL HEMNENITA3 During your visit today, we recorded the [...] N/A Requesting response back: call on cell [phone] (home) [phone] (cell) Marva Burciaga Adm May 15, 2021 [...] Status:Closed by MELANI RUSSELL on 05/17/21 [facility] Teston 2020 Test Common Hereditary Cancers Panel Normal [facility] Comment on above: Performed By: #### M OL13 ####[facility] [id number] [place] [address] Test Results View results in Scan zahraa Documents link when available. Normal [facility] Comment on above: Performed By: #### M OL13 ####[facility] [id number] [place] [address] Nishant 05-01-2021 CNPN Telephone (GMINE) OSCAR PINEDA ([id number]) 1985 F Date Time Provider Department 05/01/21 [...] number for any further questions or concerns. Mindy Farley Genetic Counselor Cooking Show Host Allergies As of Date: 05/01/2021 Noted Allergy [...] Status:Closed by MINDY FARLEY on 05/01/21 Normal [facility] CBCon 04-30-2021 Absolute nRBC <0.01 Normal <0.01 [facility] Comment on above: Performed By: #### C BC ####[facility] [address] [place], [place] [phone] Erythrocyte distribution width (RBC) [Ratio] 12.0 % Normal 11.5-15.0 [facility] Comment on above: Performed By: #### C BC ####[facility] [address] [place], [place] [phone] Hematocrit (Bld) [Volume fraction] 33.8 % Low 36.0-46.0 [facility] Comment on above: Performed By: #### C BC ####[address] [address] [place], [place] [phone] Hemoglobin (Bld) [Mass/Vol] 11.8 g/dL Normal 11.5-15.5 [facility] Comment on above: Performed By: #### C BC ####[address] [phone] MCH 31.5 pG Normal 26.0-34.0 [facility] Comment on above: Performed By: #### C BC ####[address] [address] [place], [place] [phone] MCHC (RBC) [Mass/Vol] 34.9 g/dL Normal 30.5-36.0 [facility] Comment on above: Performed By: #### C BC ####[address] [phone] MCV (RBC) [Entitic vol] 90.1 fL Normal 80.0-100.0 [facility] Comment on above: Performed By: #### C BC ####[address] [phone] Platelet mean volume (Bld) [Entitic vol] 9.6 fL Normal 9.0-12.7 [facility] Comment on above: Performed By: #### C BC ####[address] [place], [place] [phone] Platelets (Bld) [#/Vol] 182 10*3/uL Normal 150-400 [facility] Comment on above: Performed By: #### C BC ####[address] [place], [place] [phone] RBC (Bld) [#/Vol] 3.75 10*6/uL Low 3.90-5.20 [facility] Comment on above: Performed By: #### C BC ####[facility] [address] [place], [place] [phone] WBC (Bld) [#/Vol] 12.88 10*3/uL High 3.70-11.00 [facility] Comment on above: Performed By: #### C BC ####[facility] [address] [place], [place] [phone] CNDSon 04-30-2021 CNDS HNO ID: [id number] Author: Katty Logan APRN.HEALTH SERVICE WORKER Service: Critical Care Author Type: Nurse Practitioner [...] air KIMBER (more content not included)... Normal [facility] THERAPY NTon 04-30-2021 THERAPY NT HNO ID: [id number] Author: Licha Llanes, PT Service: Physical Therapy Author Type: Physical Therapist Type: Therapy (PT/OT/Speech/Resp) Filed: 04/30/2021 3:02 PM Note Text: Physical Therapy Treatment SERVICE DATE: 04/30/2021 SERVICE TIME: 1342 to 1351 ROOM: [place] [address] Recommended Discharge Disposition: Home Recommended Discharge Disposition [...] Arm swing decreased;Antalgic gait;Dianne decreased;Step length decreased -M: 7: Walk 25 feet or more Learning/Educational [...] gait and mobility-other Interventions Provided: Gait Training (89491) Gait Training (12580) Treatment Minutes: 9 $ Gait Training (60893) Billed Units: 1 unit Training AND education provided in: Discharge planning, Energy conservation, Exercise program, Expected functional level, Falls prevention, Gait pattern, reduction of deviations, Home safe (more content not included)... Normal [facility] ALLIED HEALTHon 04-29-2021 ALLIED HEALTH HNO ID: [id number] Author: Ana Watters RN Service: Healing Service [...] 29, 2021 TIME: 8:11 AM CONTACT #: [phone] [facility] APTTon 04-29-2021 aPTT Coag (Bld) [Time] 26.4 s Normal 23.0-32.4 [facility] Comment on above: Result Comment: Unfr actionated [...] laboratory APTT reagent in use throughout the [facility]. Performed By: #### C BC, MG1, PHOS, PTT, CMP, PT ####[facility] [address] [place], [place] [phone] CASE MGT INIT Meryl 2020 CASE MGT INIT MATTEO HNO ID: [id number] Author: Rocio Bear RN Service: Case Management [...] Be Determined MEDICAL: [employer] CHOICE POS II Patient/Bracelet Former Stated Goals: To have reduction in symptoms;To return home to life as it was;To improve my functional status Health Insurance: [employer] Health Issues Impacting Discharge Plan: (Tumor) Last Discharge Date: 03/12/21 Is this Within the Past 30 days? Last discharge within 30 days: No Advance Directive: Current Advance Directive: None Ruling Machine Operator Attempted to Assist with AD Completion: No [...] None Has the Patient Been in a Jail Facility in the Past 30 days?: No SOCIAL: Living Arrangements: Home Lives With: Spouse Primary Contact: Extended Emergency Contact Information Primary Emergency Contact: LAURA PINEDA Address: [address] [place] [address] Mobile Relation: Spouse Supportive Patient Contact:: Yes Contact Resources: Family Family Name/Phone: LAURA PINEDA (Spouse) [phone] Caregiver AssessmentCaregiver is ready, willing and able [...] Mostly I feel financially burdened by my lsd-hf-zxaqsj expenses for my prescription medication:: 0 - Disagree Mostly Risk Score: 0 Patient is categorized as: Low risk < 2 Med Adherance Assessement not completed due to: No ANIMAL MAINTENANCE SUPERVISOR meds Are you interested in bedside delivery of your medications? Yes Is Patient Psychosocially Complex?: No ASSESSMENT AND PLAN: Medical Needs: Medical Needs: None Psychosocial Needs: Psychosocial Needs: None FREEDOM OF CHOICE EXPLAINED: [place] of Choice Given: No Reason Not Given: No placements necessary POTENTIAL TRANSITION PLANS No Services Indicated SIGNATURE: Rocio Bear RN MSN PATIENT NAME: Oscar Pineda DATE: April 29, 2021 TIME: 11:53 AM PAGER/CONTACT #: [phone] Normal [facility] CBCon 04-29-2021 Absolute nRBC <0.01 Normal <0.01 [facility] Comment on above: Performed By: #### C BC, MG1, PHOS, PTT, CMP, PT ####[facility] [address] [place], [place] [phone] Erythrocyte distribution width (RBC) [Ratio] 11.8 % Normal 11.5-15.0 [facility] Comment on above: Performed By: #### C BC, MG1, PHOS, PTT, CMP, PT ####[place] [address] [place] [address] [phone] Hematocrit (Bld) [Volume fraction] 37.0 % Normal 36.0-46.0 [facility] Comment on above: Performed By: #### C BC, MG1, PHOS, PTT, CMP, PT ####[place] [address] [place] [address] [phone] Hemoglobin (Bld) [Mass/Vol] 12.3 g/dL Normal 11.5-15.5 [facility] Comment on above: Performed By: #### C BC, MG1, PHOS, PTT, CMP, PT ####[place] [address] [place] [address] [place] [phone] MCH 30.9 pG Normal 26.0-34.0 [facility] Comment on above: Performed By: #### C BC, MG1, PHOS, PTT, CMP, PT ####[place] [address] [place] [address] [place] [phone] MCHC (RBC) [Mass/Vol] 33.2 g/dL Normal 30.5-36.0 [facility] Comment on above: Performed By: #### C BC, MG1, PHOS, PTT, CMP, PT ####[place] [address] [place] [address] [place] [phone] MCV (RBC) [Entitic vol] 93.0 fL Normal 80.0-100.0 [facility] Comment on above: Performed By: #### C BC, MG1, PHOS, PTT, CMP, PT ####[place] [address] [place] [address] [phone] Platelet mean volume (Bld) [Entitic vol] 10.0 fL Normal 9.0-12.7 [facility] Comment on above: Performed By: #### C BC, MG1, PHOS, PTT, CMP, PT ####[place] [address] [place] [address] [phone] Platelets (Bld) [#/Vol] 188 10*3/uL Normal 150-400 [facility] Comment on above: Performed By: #### C BC, MG1, PHOS, PTT, CMP, PT ####[facility] Ave[address]ial[place], [place] [phone] RBC (Bld) [#/Vol] 3.98 10*6/uL Normal 3.90-5.20 [facility] Comment on above: Performed By: #### C BC, MG1, PHOS, PTT, CMP, PT ####[place] [address] [address], [place] [phone] WBC (Bld) [#/Vol] 11.41 10*3/uL High 3.70-11.00 [facility] Comment on above: Performed By: #### C BC, MG1, PHOS, PTT, CMP, PT ####[place] [address] [place] [address], [place] [phone] Comp Metabolic Panelon 04-29 Albumin [Mass/Vol] 3.5 g/dL Low 3.9-4.9 [facility] Comment on above: Performed By: #### C BC, MG1, PHOS, PTT, CMP, PT ####[place] [address] [place], [place] [phone] ALP [Catalytic activity/Vol] 43 U/L Normal 34-123 [facility] Comment on above: Performed By: #### C BC, MG1, PHOS, PTT, CMP, PT ####[facility] Ave[address], [place] [phone] ALT [Catalytic activity/Vol] 56 U/L High 7-38 [facility] Comment on above: Performed By: #### C BC, MG1, PHOS, PTT, CMP, PT ####[facility] Ave[address], [place] [phone] Anion gap [Moles/Vol] 14 mmol/L Normal 9-18 [facility] Comment on above: Performed By: #### C BC, MG1, PHOS, PTT, CMP, PT ####[address] [phone] AST [Catalytic activity/Vol] 171 U/L High 13-35 [facility] Comment on above: Performed By: #### C BC, MG1, PHOS, PTT, CMP, PT ####[place] [phone] Bilirubin [Mass/Vol] 0.6 mg/dL Normal 0.2-1.3 [facility] Comment on above: Performed By: #### C BC, MG1, PHOS, PTT, CMP, PT ####[address] [phone] Calcium [Mass/Vol] 8.3 mg/dL Low 8.5-10.2 [facility] Comment on above: Performed By: #### C BC, MG1, PHOS, PTT, CMP, PT ####[place] [phone] Chloride [Moles/Vol] 100 mmol/L Normal 97-105 [facility] Comment on above: Performed By: #### C BC, MG1, PHOS, PTT, CMP, PT ####[place] [phone] CO2 [Moles/Vol] 25 mmol/L Normal 22-30 [facility] Comment on above: Performed By: #### C BC, MG1, PHOS, PTT, CMP, PT ####[address] [phone] Creatinine [Mass/Vol] 0.78 mg/dL Normal 0.58-0.96 [facility] Comment on above: Performed By: #### C BC, MG1, PHOS, PTT, CMP, PT ####[facility] [address] [place], [place] [phone] eGFR- Amer. >60 Normal [facility] Comment on above: Performed By: #### C BC, MG1, PHOS, PTT, CMP, PT ####[facility] [place], [place] [phone] eGFR-All Other Races >60 Normal [facility] Comment on above: Result Comment: eGFR (Estimated [...] C BC, MG1, PHOS, PTT, CMP, PT ####[facility] [place], [place] [phone] Glucose [Mass/Vol] 167 mg/dL High 74-99 [facility] Comment on above: Result Comment: The [place] Diabetes Association (ADA) provides guidance for cutoff [...] Standards of Medical Care in Diabetes 2016, [place] Diabetes Association. Diabetes Care. 2016.39(Suppl 1). Performed By: #### C BC, MG1, PHOS, PTT, CMP, PT ####[facility] [address] [place], [place] [phone] Potassium [Moles/Vol] 3.9 mmol/L Normal 3.7-5.1 [facility] Comment on above: Performed By: #### C BC, MG1, PHOS, PTT, CMP, PT ####[place] [address] [address], [place] [phone] Protein [Mass/Vol] 6.0 g/dL Low 6.3-8.0 [facility] Comment on above: Performed By: #### C BC, MG1, PHOS, PTT, CMP, PT ####[address] [phone] Sodium [Moles/Vol] 139 mmol/L Normal 136-144 [facility] Comment on above: Performed By: #### C BC, MG1, PHOS, PTT, CMP, PT ####[address] [phone] Urea nitrogen [Mass/Vol] 9 mg/dL Normal 7-21 [facility] Comment on above: Performed By: #### C BC, MG1, PHOS, PTT, CMP, PT ####[address] [phone] GASV + ALLon 04-29-2021 Base Excess 4 mmol/L Normal [facility] Comment on above: Performed By: #### V ALLBG ####[place] [phone] Calcium [Moles/Vol] 1.15 mmol/L Normal 1.08-1.30 [facility] Comment on above: Performed By: #### V ALLBG ####[place] [phone] Carboxyhemoglobin, Ziyad 1.2 % Normal <2.1 [facility] Comment on above: Performed By: #### V ALLBG ####[address], [place] [phone] CO2 [Moles/Vol] 31 mmol/L High 25-29 [facility] Comment on above: Performed By: #### V ALLBG ####[place] [address] [place] [address] [place] [phone] Glucose [Mass/Vol] 178 mg/dL High 60-105 [facility] Comment on above: Performed By: #### V ALLBG ####[place] [address] [address] [place] [phone] HCO3 (Bld) [Moles/Vol] 29 mmol/L High 24-28 [facility] Comment on above: Performed By: #### V ALLBG ####[place] [address] [place] [address] [place] [phone] Lactate [Moles/Vol] 1.3 mmol/L Normal 0.5-2.2 [facility] Comment on above: Performed By: #### V ALLBG ####[place] [address] [place] [address] [phone] Methemoglobin 0.7 % Normal <1.6 [facility] Comment on above: Performed By: #### V ALLBG ####[place] [address] [address] [place] [phone] O2 Administered 40% Normal [facility] Comment on above: Performed By: #### V ALLBG ####[place] [address] [place] [address] [phone] pCO2 51 mm Hg Normal 42-55 [facility] Comment on above: Performed By: #### V ALLBG ####[place] [address] [address], [place] [phone] pCO2, Temp Correct 51 mm Hg Normal 42-55 [facility] Comment on above: Performed By: #### V ALLBG ####[place] [address] [place] [address] [place] [phone] Potassium [Moles/Vol] 4.0 mmol/L Normal 3.5-5.0 [facility] Comment on above: Performed By: #### V ALLBG ####[place] [address] [place], [place] [phone] Base Excess 3 mmol/L Normal [facility] Comment on above: Performed By: #### V ALLBG ####[place] [address] [place], [place] [phone] Blood Gas Comm, Ziyad . Normal [facility] Comment on above: Performed By: #### V ALLBG ####[address] [phone] Body temperature 98.6 [degF] Normal [facility] Comment on above: Performed By: #### V ALLBG ####[address] [phone] Calcium [Moles/Vol] 1.18 mmol/L Normal 1.08-1.30 [facility] Comment on above: Performed By: #### V ALLBG ####[address] [phone] Carboxyhemoglobin, Ziyad 0.9 % Normal <2.1 [facility] Comment on above: Performed By: #### V ALLBG ####[place] [address] [place], [place] [phone] CO2 [Moles/Vol] 30 mmol/L High 25-29 [facility] Comment on above: Performed By: #### V ALLBG ####[place] [address] [place], [place] [phone] Glucose [Mass/Vol] 193 mg/dL High 60-105 [facility] Comment on above: Performed By: #### V ALLBG ####[place] [address] [place] [place], [place] [phone] HCO3 (Bld) [Moles/Vol] 28 mmol/L Normal 24-28 [facility] Comment on above: Performed By: #### V ALLBG ####[place] [address] [place] [address] [phone] Hematocrit (Bld) [Volume fraction] 39.0 % Normal 36.0-46.0 [facility] Comment on above: Performed By: #### V ALLBG ####[place] [address] [place] [address] [place] [phone] Hemoglobin (Bld) [Mass/Vol] 12.7 g/dL Normal 11.5-15.5 [facility] Comment on above: Performed By: #### V ALLBG ####[place] [address] [place] [address] [phone] Lactate [Moles/Vol] 1.6 mmol/L Normal 0.5-2.2 [facility] Comment on above: Performed By: #### V ALLBG ####[place] [address] [address] [phone] Methemoglobin 1.0 % Normal <1.6 [facility] Comment on above: Performed By: #### V ALLBG ####[place] [address] [place] [address] [phone] O2 Administered 30% Normal [facility] Comment on above: Performed By: #### V ALLBG ####[place] [address] [address] [phone] Oxyhemoglobin, Ziyad. 78 % Normal 60-85 [facility] Comment on above: Performed By: #### V ALLBG ####[place] [address] [place] [address] [place] [phone] pCO2 49 mm Hg Normal 42-55 [facility] Comment on above: Performed By: #### V ALLBG ####[place] [address] [place], [place] [phone] pCO2, Temp Correct 49 mm Hg Normal 42-55 [facility] Comment on above: Performed By: #### V ALLBG ####[place] [address] [place], [place] [phone] pH (Bld) 7.38 [pH] Normal 7.32-7.42 [facility] Comment on above: Performed By: #### V ALLBG ####[address] [phone] pH, Temp Corrected 7.38 Normal 7.32-7.42 [facility] Comment on above: Performed By: #### V ALLBG ####[address] [phone] pO2 46 mm Hg High 35-45 [facility] Comment on above: Performed By: #### V ALLBG ####[address] [phone] pO2, Temp Corrected 46 mm Hg High 35-45 [facility] Comment on above: Performed By: #### V ALLBG ####[address] [phone] Potassium [Moles/Vol] 4.3 mmol/L Normal 3.5-5.0 [facility] Comment on above: Performed By: #### V ALLBG ####[address] [phone] Sodium [Moles/Vol] 141 mmol/L Normal 136-144 [facility] Comment on above: Performed By: #### V ALLBG ####[address] [phone] Magnesiumon 04-29-2021 Magnesium [Mass/Vol] 1.8 mg/dL Normal 1.7-2.3 [facility] Comment on above: Performed By: #### C BC, MG1, PHOS, PTT, CMP, PT ####[facility] [address] [place], [place] [phone] NURSING PROGon 04-29-2021 NURSING PROG HNO ID: [id number] Author: Magda Rose RN Service: ? Author Type: Registered Nurse Type: Nursing Progress Note Filed: 04/29/2021 7:45 AM Note Text: Nursing Progress: Topic: RESTRAINT NON-VIOLENT PATIENT NAME: Oscar Pineda PATIENT LOCATION: [place] [address] The patient demonstrates Attempting to Remove Medical [...] TIME: 7:44 AM Diane Rose RN Normal [facility] Phosphoruson 04-29-2021 Phosphate [Mass/Vol] 3.2 mg/dL Normal 2.7-4.8 [facility] Comment on above: Performed By: #### C BC, MG1, PHOS, PTT, CMP, PT ####[facility] [address] [place], [place] [phone] Protimeon 04-29-2021 PT INR 1.0 Normal 0.9-1.3 [facility] Comment on above: Result Comment: Neha min K Antagonist (VKA) Therapeutic Range: INR 2 to 3 (Target INR of 2.5) Note: For patients treated with VKA drugs, such as warfarin, the [place] [employer] 2012 Guideline recommends [...] Chest 2012, 141:7S-47S Daphne RA, et al. [facility] 2017, 70: 252-289 Performed By: #### C BC, MG1, PHOS, PTT, CMP, PT ####[facility] [place], [place] [phone] PT Sec 11.0 sec Normal 9.7-13.0 [facility] Comment on above: Performed By: #### C BC, MG1, PHOS, PTT, CMP, PT ####[facility] [address] [place], [place] [phone] THERAPY NTon 04-29-2021 THERAPY NT HNO ID: [id number] Author: Neela Prasad, PT Service: Physical Therapy Author Type: Physical Therapist Type: Therapy (PT/OT/Speech/Resp) Filed: 04/29/2021 10:05 AM Note Text: Physical Therapy Evaluation SERVICE DATE: 04/29/2021 SERVICE TIME: 907 to 945 ROOM: [place] [address] Recommended Discharge Disposition: Home Recommended Discharge Disposition [...] trunk posture;Step length decreased;Non-functiona l gait speed [facility]: 7: Walk 25 feet or more Learning/Educational [...] Diagnosis: Reduced mobility-other Interventions Provided: Evaluation;Gait Training (38231);Therapeutic Activity (92455) $ Evaluation-Moderate (03245) Billed Units: 1 unit Therapeutic Activity (45529) Treatment Minutes: 8 $ Therapeutic Activity (54370) Billed Units: 1 unit Gait Training (20062) Treatment Minutes: 15 $ Gait Training (79936) Billed Units: 1 unit Training AND education provided in: Bed mobility, Benefits of in-hospital mobility, Discharge planning, Energy conservation, Expected functional level, Gait pattern, reduction of deviations, Positioning, Precautions/restriction s, Role of Physical Therapy, Sitting balance, Standing balance, Transfers, Treatment protocol, Equipment, Assistive device use The following therapeutic skills were used: Activity dosing, Assessment of tolerance includi (more content not included)... Normal [facility] Type and Screenon 04-29-2021 ABO/RH(D) Positive Normal [facility] Comment on above: Performed By: #### T SCR ####[facility] [address] [place], [place] [phone] APTTon 04-28-2021 aPTT Coag (Bld) [Time] 26.6 s Normal 23.0-32.4 [facility] Comment on above: Result Comment: Unfr actionated [...] laboratory APTT reagent in use throughout the [facility]. Performed By: #### P T, PTT, TRIG, CMP, CBC, MG1, PHOS ####[place] [address] [address], [place] [phone] Blood Cultureon 04-28-2021 Bacteria identified Cx Nom (Bld) Culture Result - No growth 5 days Normal [facility] Comment on above: Performed By: #### B LCUL ####[place] [address] [address], [place] [phone] Bacteria identified Cx Nom (Bld) Culture Result - No growth 5 days Normal [facility] Comment on above: Performed By: #### B LCUL ####[place] [address] [address], [place] [phone] CBCon 04-28-2021 Absolute nRBC <0.01 Normal <0.01 [facility] Comment on above: Performed By: #### P T, PTT, TRIG, CMP, CBC, MG1, PHOS ####[place] [phone] Erythrocyte distribution width (RBC) [Ratio] 12.4 % Normal 11.5-15.0 [facility] Comment on above: Performed By: #### P T, PTT, TRIG, CMP, CBC, MG1, PHOS ####[address] [place], [place] [phone] Hematocrit (Bld) [Volume fraction] 36.1 % Normal 36.0-46.0 [facility] Comment on above: Performed By: #### P T, PTT, TRIG, CMP, CBC, MG1, PHOS ####[place] [address] [address] [place], [place] [phone] Hemoglobin (Bld) [Mass/Vol] 11.8 g/dL Normal 11.5-15.5 [facility] Comment on above: Performed By: #### P T, PTT, TRIG, CMP, CBC, MG1, PHOS ####[place] [address] [address], [place] [phone] MCH 30.9 pG Normal 26.0-34.0 [facility] Comment on above: Performed By: #### P T, PTT, TRIG, CMP, CBC, MG1, PHOS ####[place] [address] [address], [place] [phone] MCHC (RBC) [Mass/Vol] 32.7 g/dL Normal 30.5-36.0 [facility] Comment on above: Performed By: #### P T, PTT, TRIG, CMP, CBC, MG1, PHOS ####[place] [address] [address], [place] [phone] MCV (RBC) [Entitic vol] 94.5 fL Normal 80.0-100.0 [facility] Comment on above: Performed By: #### P T, PTT, TRIG, CMP, CBC, MG1, PHOS ####[place] [address] [address], [place] [phone] Platelet mean volume (Bld) [Entitic vol] 9.8 fL Normal 9.0-12.7 [facility] Comment on above: Performed By: #### P T, PTT, TRIG, CMP, CBC, MG1, PHOS ####[place] [address] [address], [place] [phone] Platelets (Bld) [#/Vol] 178 10*3/uL Normal 150-400 [facility] Comment on above: Performed By: #### P T, PTT, TRIG, CMP, CBC, MG1, PHOS ####[place] [address] [address], [place] [phone] RBC (Bld) [#/Vol] 3.82 10*6/uL Low 3.90-5.20 [facility] Comment on above: Performed By: #### P T, PTT, TRIG, CMP, CBC, MG1, PHOS ####[place] [address] [address], [place] [phone] WBC (Bld) [#/Vol] 11.29 10*3/uL High 3.70-11.00 [facility] Comment on above: Performed By: #### P T, PTT, TRIG, CMP, CBC, MG1, PHOS ####[facility] [address] [place], [place] [phone] CT ABD/PEL W IVCONon 021 CT ABD/PEL W IVCON * * *Final Report* * * DATE OF EXAM: Apr 28 2021 2:10PM [facility] 0530 - CT ABD/PEL W IVCON / [...] chest CT performed will be reported separately. Territory Service Representative (topogram) images: No additional findings. IMPRESSION: Resolution of intravenous gas within the abdomen and pelvis. 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 Tire Mold Engraver: ANEL Transcribe Date/Time: Apr 28 2021 2:50P Dictated by : KASHMIR RIVERA MD This examination was interpreted and the report reviewed and electronically signed by: ELIAS WOODY MD on Apr 28 2021 4:13PM EST [id number] Normal [facility] CT CHEST W IVCONon CT CHEST W IVCON * * *Final Report* * * DATE OF EXAM: Apr 28 2021 2:10PM [facility] 0539 - CT CHEST W IVCON / [...] There is minimal intrahepatic biliary ductal dilation. Territory Service Representative (topogram) images: No additional findings. IMPRESSION: 1. No CT evidence of air embolism within the systemic veins, right-sided heart chambers, central pulmonary arteries and hepatic veins. 2. Posterior complete LEFT lower lobe, partially dependent RIGHT lower lobe and dependent LEFT upper lobe atelectasis. Given the distribution, this finding may be related to aspiration. Trace bilateral pleural effusions. Tire Mold Engraver: ANEL Transcribe Date/Time: Apr 28 2021 3:35P Dictated by : MICHELLE PETERSEN MD This examination was interpreted and the report reviewed and electronically signed by: MICHELLE PETERSEN MD on Apr 28 2021 3:45PM EST [id number] Normal [facility] Comp Metabolic Panelon 04-28 Albumin [Mass/Vol] 3.0 g/dL Low 3.9-4.9 [facility] Comment on above: Performed By: #### P T, PTT, TRIG, CMP, CBC, MG1, PHOS ####[facility] [address] [place], [place] [phone] ALP [Catalytic activity/Vol] 36 U/L Normal 34-123 [facility] Comment on above: Performed By: #### P T, PTT, TRIG, CMP, CBC, MG1, PHOS ####[facility] [address], [place] [phone] ALT [Catalytic activity/Vol] 32 U/L Normal 7-38 [facility] Comment on above: Performed By: #### P T, PTT, TRIG, CMP, CBC, MG1, PHOS ####[facility] [address] [place], [place] [phone] Anion gap [Moles/Vol] 10 mmol/L Normal 9-18 [facility] Comment on above: Performed By: #### P T, PTT, TRIG, CMP, CBC, MG1, PHOS ####[address] [address] [phone] AST [Catalytic activity/Vol] 102 U/L High 13-35 [facility] Comment on above: Performed By: #### P T, PTT, TRIG, CMP, CBC, MG1, PHOS ####[address] [phone] Bilirubin [Mass/Vol] 0.3 mg/dL Normal 0.2-1.3 [facility] Comment on above: Performed By: #### P T, PTT, TRIG, CMP, CBC, MG1, PHOS ####[address] [phone] Calcium [Mass/Vol] 7.9 mg/dL Low 8.5-10.2 [facility] Comment on above: Performed By: #### P T, PTT, TRIG, CMP, CBC, MG1, PHOS ####[address] [phone] Chloride [Moles/Vol] 107 mmol/L High 97-105 [facility] Comment on above: Performed By: #### P T, PTT, TRIG, CMP, CBC, MG1, PHOS ####[address] [phone] CO2 [Moles/Vol] 25 mmol/L Normal 22-30 [facility] Comment on above: Performed By: #### P T, PTT, TRIG, CMP, CBC, MG1, PHOS ####[address] [place], [place] [phone] Creatinine [Mass/Vol] 0.85 mg/dL Normal 0.58-0.96 [facility] Comment on above: Performed By: #### P T, PTT, TRIG, CMP, CBC, MG1, PHOS ####[place] [address] [place], [place] [phone] eGFR- Amer. >60 Normal [facility] Comment on above: Performed By: #### P T, PTT, TRIG, CMP, CBC, MG1, PHOS ####[address] [phone] eGFR-All Other Races >60 Normal [facility] Comment on above: Result Comment: eGFR (Estimated [...] T, PTT, TRIG, CMP, CBC, MG1, PHOS ####[address] [phone] Glucose [Mass/Vol] 86 mg/dL Normal 74-99 [facility] Comment on above: Result Comment: The [place] [employer] (ADA) provides guidance for cutoff [...] Standards of Medical Care in Diabetes 2016, [place] [employer]. Diabetes Care. 2016.39(Suppl 1). Performed By: #### P T, PTT, TRIG, CMP, CBC, MG1, PHOS ####[facility], [place] [phone] Potassium [Moles/Vol] 3.8 mmol/L Normal 3.7-5.1 [facility] Comment on above: Performed By: #### P T, PTT, TRIG, CMP, CBC, MG1, PHOS ####[address] [phone] Protein [Mass/Vol] 5.2 g/dL Low 6.3-8.0 [facility] Comment on above: Performed By: #### P T, PTT, TRIG, CMP, CBC, MG1, PHOS ####[address] [phone] Sodium [Moles/Vol] 142 mmol/L Normal 136-144 [facility] Comment on above: Performed By: #### P T, PTT, TRIG, CMP, CBC, MG1, PHOS ####[address] [phone] Urea nitrogen [Mass/Vol] 15 mg/dL Normal 7-21 [facility] Comment on above: Performed By: #### P T, PTT, TRIG, CMP, CBC, MG1, PHOS ####[address] [phone] GASV + ALLon 04-28-2021 Base Excess 2 mmol/L Normal [facility] Comment on above: Performed By: #### V ALLBG ####[address] [phone] Blood Gas Comm, Ziyad . Normal [facility] Comment on above: Performed By: #### V ALLBG ####[address] [phone] Body temperature 98.6 [degF] Normal [facility] Comment on above: Performed By: #### V ALLBG ####[facility], [place] [phone] Calcium [Moles/Vol] 1.18 mmol/L Normal 1.08-1.30 [facility] Comment on above: Performed By: #### V ALLBG ####[place] [address], [place] [phone] Carboxyhemoglobin, Ziyad 0.7 % Normal <2.1 [facility] Comment on above: Performed By: #### V ALLBG ####[place] [address] [address], [place] [phone] CO2 [Moles/Vol] 30 mmol/L High 25-29 [facility] Comment on above: Performed By: #### V ALLBG ####[place] [address], [place] [phone] Glucose [Mass/Vol] 90 mg/dL Normal 60-105 [facility] Comment on above: Performed By: #### V ALLBG ####[place] [address], [place] [phone] HCO3 (Bld) [Moles/Vol] 29 mmol/L High 24-28 [facility] Comment on above: Performed By: #### V ALLBG ####[place] [address], [place] [phone] Hematocrit (Bld) [Volume fraction] 37.7 % Normal 36.0-46.0 [facility] Comment on above: Performed By: #### V ALLBG ####[place] [address], [place] [phone] Hemoglobin (Bld) [Mass/Vol] 12.3 g/dL Normal 11.5-15.5 [facility] Comment on above: Performed By: #### V ALLBG ####[place] [address], [place] [phone] Lactate [Moles/Vol] 0.9 mmol/L Normal 0.5-2.2 [facility] Comment on above: Performed By: #### V ALLBG ####[facility], [place] [phone] Methemoglobin 1.5 % Normal <1.6 [facility] Comment on above: Performed By: #### V ALLBG ####[place] [address] [phone] O2 Administered 100% Normal [facility] Comment on above: Performed By: #### V ALLBG ####[place] [address] [address] [phone] Oxyhemoglobin, Ziyad. 83 % Normal 60-85 [facility] Comment on above: Performed By: #### V ALLBG ####[place] [address] [address] [phone] pCO2 57 mm Hg High 42-55 [facility] Comment on above: Performed By: #### V ALLBG ####[place] [address] [address] [phone] pCO2, Temp Correct 57 mm Hg High 42-55 [facility] Comment on above: Performed By: #### V ALLBG ####[place] [address], [place] [phone] pH (Bld) 7.32 [pH] Normal 7.32-7.42 [facility] Comment on above: Performed By: #### V ALLBG ####[place] [address], [place] [phone] pH, Temp Corrected 7.32 Normal 7.32-7.42 [facility] Comment on above: Performed By: #### V ALLBG ####[place] [address], [place] [phone] pO2 54 mm Hg High 35-45 [facility] Comment on above: Performed By: #### V ALLBG ####[place] [address] [place], [place] [phone] pO2, Temp Corrected 54 mm Hg High 35-45 [facility] Comment on above: Performed By: #### V ALLBG ####[address] [phone] Potassium [Moles/Vol] 3.8 mmol/L Normal 3.5-5.0 [facility] Comment on above: Performed By: #### V ALLBG ####[address] [phone] Sodium [Moles/Vol] 142 mmol/L Normal 136-144 [facility] Comment on above: Performed By: #### V ALLBG ####[address] [phone] Magnesiumon 04-28-2021 Magnesium [Mass/Vol] 2.0 mg/dL Normal 1.7-2.3 [facility] Comment on above: Performed By: #### P T, PTT, TRIG, CMP, CBC, MG1, PHOS ####[facility] [place], [place] [phone] NURSING PROGon 04-28-2021 NURSING PROG HNO ID: [id number] Author: Laura Mullins RN Service: ? Author Type: Registered Nurse Type: Nursing Progress Note Filed: 04/28/2021 8:01 PM Note Text: Nursing Progress: Topic: RESTRAINT NON-VIOLENT PATIENT NAME: Oscar Pineda PATIENT LOCATION: [place] [address] The patient demonstrates Attempting to Remove Medical [...] 2021 TIME: 8:01 PM Laura Mullins RN [facility] NURSING PROG HNO ID: [id number] Author: Rob Guerra RN Service: Radiology Author [...] DATE: April 28, 2021 TIME: 2:08 PM [facility] NURSING PROG HNO ID: [id number] Author: Yumiko Molina RN Service: ? Author Type: Registered Nurse Type: Nursing Progress Note Filed: 04/28/2021 2:57 PM Note Text: Nursing Progress Note Patient Name: Oscar Pineda Patient [place] [facility] [place] IR at bedside, advised transfer to CT table while still in trendelenburg trial patient supine, still in trendelenburg. Tolerating [address], notified of positioning requirements 1345 RETAIL EXPERIENCE SPECIALIST, resident, two RT's, and two RN's at bedside for transport. Pt on telemetry/ continuous monitoring. CT and IR LIP notified. [address] imaging table, trendelenburg positioning maintained [address] and gave verbal OK to transition HOB flat then elevated (as tolerated) 1420 patient in SICU, HOB flat. Tolerating This note was completed by: Yumiko Molina Normal [facility] NURSING PROG HNO ID: [id number] Author: Yumiko Molina RN Service: ? Author Type: Registered Nurse Type: Nursing Progress Note Filed: 04/28/2021 1:22 PM Note Text: Nursing Progress: Topic: RESTRAINT NON-VIOLENT PATIENT NAME: Oscar Pineda PAT[place]ATION[place] [facility] [place] The patient demonstrates Attempting to Remove Medical Devices Vital to Medical Stability as evidenced by the following behaviors attempting to remove medical records coordinator which pose an imminent danger to self [...] 2021 TIME: 8:00AM Yumiko Molina RN Normal [facility] Phosphoruson 04-28-2021 Phosphate [Mass/Vol] 2.3 mg/dL Low 2.7-4.8 [facility] Comment on above: Performed By: #### P T, PTT, TRIG, CMP, CBC, MG1, PHOS ####[facility] [address] [place], [place] [phone] Protimeon 04-28-2021 PT INR 1.0 Normal 0.9-1.3 [facility] Comment on above: Result Comment: Neha min K Antagonist (VKA) Therapeutic Range: INR 2 to 3 (Target INR of 2.5) Note: For patients treated with VKA drugs, such as warfarin, the [employer] 2012 Guideline recommends [...] Chest 2012, 141:7S-47S Daphne PEDERSON et al. [facility] 2017, 70: 252-289 Performed By: #### P T, PTT, TRIG, CMP, CBC, MG1, PHOS ####[place] [address] [phone] PT Sec 11.0 sec Normal 9.7-13.0 [facility] Comment on above: Performed By: #### P T, PTT, TRIG, CMP, CBC, MG1, PHOS ####[address] [phone] Respiratory Cult/Stainon Respiratory Cult/Stain Sp. Request/Comment: - Specimen received in sterile container. Smear Result - Rare Mixed oral kaylynn Many Polymorphonuclear leukocytes Rare Epithelial cells Culture Result - Few Staphylococcus aureus --> ABNORMAL ALERT Insignificant colony count. No further workup. --> ABNORMAL ALERT Few Normal respiratory kaylynn present Critically abnormal [facility] Comment on above: Performed By: #### R CULST ####[address] [phone] Triglycerideon 04-28-2021 Fasting Time Unknown Normal [facility] Comment on above: Performed By: #### P T, PTT, TRIG, CMP, CBC, MG1, PHOS ####[address] [phone] Triglyceride [Mass/Vol] 155 mg/dL High <150 [facility] Comment on above: Result Comment: <150 mg/dL, Normal 150-199 mg/dL, Borderline high 200-499 mg/dL, High >499 mg/dL, Very high Reference: 1. National Cholesterol Education Program ATP III Guideline At-A-Glance Quick Desk Reference: National Heart, Lung, and Blood [place]. National Institutes of Health. 2001: NIH Publication No. 01-3305. Performed By: #### P T, PTT, TRIG, CMP, CBC, MG1, PHOS ####[address] [phone] Urinalysison 04-28-2021 Bilirubin, Urine Negative Normal Negative [facility] Comment on above: Performed By: #### U A ####[address] [phone] Clarity (U) Clear Normal Clear [facility] Comment on above: Performed By: #### U A ####[place] [address] [address] [phone] Color (U) Light Yellow Critically abnormal Yellow [facility] Comment on above: Performed By: #### U A ####[place] [phone] Comments SEE COMMENT Normal [facility] Comment on above: Result Comment: Micr oscopic not warranted Performed By: #### U A ####[place] [phone] Glucose Ql (U) Negative Normal Negative [facility] Comment on above: Performed By: #### U A ####[place] [phone] Hemoglobin/Blood,U r Negative Normal Negative [facility] Comment on above: Performed By: #### U A ####[place] [phone] Ketones Ql (U) 1+ Critically abnormal Negative [facility] Comment on above: Performed By: #### U A ####[place] [phone] Leukest Negative Normal Negative [facility] Comment on above: Performed By: #### U A ####[place] [address] [address] [place] [phone] Nitrite Ql (U) Negative Normal Negative [facility] Comment on above: Performed By: #### U A ####[place] [phone] pH (U) 5.0 [pH] Normal 5.0-8.0 [facility] Comment on above: Performed By: #### U A ####[place] [address] [phone] Protein, Urine Negative Normal Negative [facility] Comment on above: Performed By: #### U A ####[address] [phone] Specific [place], Ur 1.023 Normal 1.005-1.030 [facility] Comment on above: Performed By: #### U A ####[address] [phone] Urine Karl Comment SEE COMMENT Normal [facility] Comment on above: Result Comment: N/A Performed By: #### U A ####[address] [phone] Urobilinogen (U) [Mass/Vol] Negative Normal Negative [facility] Comment on above: Performed By: #### U A ####[address] [phone] APTTon 04-27-2021 aPTT Coag (Bld) [Time] 21.9 s Low 23.0-32.4 [facility] Comment on above: Result Comment: Unfr actionated [...] laboratory APTT reagent in use throughout the [facility]. Performed By: #### P HOS, CMP, PTT, CBC, MG1, PT ####[facility] [place], [place] [phone] CBCon 04-27-2021 Absolute nRBC <0.01 Normal <0.01 [facility] Comment on above: Performed By: #### P HOS, CMP, PTT, CBC, MG1, PT ####[place] [address] [address] [phone] Erythrocyte distribution width (RBC) [Ratio] 11.9 % Normal 11.5-15.0 [facility] Comment on above: Performed By: #### P HOS, CMP, PTT, CBC, MG1, PT ####[place] [address] [address] [phone] Hematocrit (Bld) [Volume fraction] 39.3 % Normal 36.0-46.0 [facility] Comment on above: Performed By: #### P HOS, CMP, PTT, CBC, MG1, PT ####[place] [address] [address] [phone] Hemoglobin (Bld) [Mass/Vol] 13.3 g/dL Normal 11.5-15.5 [facility] Comment on above: Performed By: #### P HOS, CMP, PTT, CBC, MG1, PT ####[place] [address] [address] [phone] MCH 31.0 pG Normal 26.0-34.0 [facility] Comment on above: Performed By: #### P HOS, CMP, PTT, CBC, MG1, PT ####[place] [address] [phone] MCHC (RBC) [Mass/Vol] 33.8 g/dL Normal 30.5-36.0 [facility] Comment on above: Performed By: #### P HOS, CMP, PTT, CBC, MG1, PT ####[place] [address] [phone] MCV (RBC) [Entitic vol] 91.6 fL Normal 80.0-100.0 [facility] Comment on above: Performed By: #### P HOS, CMP, PTT, CBC, MG1, PT ####[place] [address] [place], [place] [phone] Platelet mean volume (Bld) [Entitic vol] 9.8 fL Normal 9.0-12.7 [facility] Comment on above: Performed By: #### P HOS, CMP, PTT, CBC, MG1, PT ####[address] [place], [place] [phone] Platelets (Bld) [#/Vol] 242 10*3/uL Normal 150-400 [facility] Comment on above: Performed By: #### P HOS, CMP, PTT, CBC, MG1, PT ####[address] [phone] RBC (Bld) [#/Vol] 4.29 10*6/uL Normal 3.90-5.20 [facility] Comment on above: Performed By: #### P HOS, CMP, PTT, CBC, MG1, PT ####[address] [phone] WBC (Bld) [#/Vol] 17.39 10*3/uL High 3.70-11.00 [facility] Comment on above: Performed By: #### P HOS, CMP, PTT, CBC, MG1, PT ####[address] [phone] Comp Metabolic Panelon 04-27 Albumin [Mass/Vol] 3.9 g/dL Normal 3.9-4.9 [facility] Comment on above: Performed By: #### P HOS, CMP, PTT, CBC, MG1, PT ####[address] [phone] ALP [Catalytic activity/Vol] 41 U/L Normal 34-123 [facility] Comment on above: Performed By: #### P HOS, CMP, PTT, CBC, MG1, PT ####[address] [place], [place] [phone] ALT [Catalytic activity/Vol] 26 U/L Normal 7-38 [facility] Comment on above: Performed By: #### P HOS, CMP, PTT, CBC, MG1, PT ####[address], [place] [phone] Anion gap [Moles/Vol] 10 mmol/L Normal 9-18 [facility] Comment on above: Performed By: #### P HOS, CMP, PTT, CBC, MG1, PT ####[address] [place], [place] [phone] AST [Catalytic activity/Vol] 63 U/L High 13-35 [facility] Comment on above: Performed By: #### P HOS, CMP, PTT, CBC, MG1, PT ####[address] [phone] Bilirubin [Mass/Vol] 0.5 mg/dL Normal 0.2-1.3 [facility] Comment on above: Performed By: #### P HOS, CMP, PTT, CBC, MG1, PT ####[address] [phone] Calcium [Mass/Vol] 8.6 mg/dL Normal 8.5-10.2 [facility] Comment on above: Performed By: #### P HOS, CMP, PTT, CBC, MG1, PT ####[address] [phone] Chloride [Moles/Vol] 109 mmol/L High 97-105 [facility] Comment on above: Performed By: #### P HOS, CMP, PTT, CBC, MG1, PT ####[address] [place], [place] [phone] CO2 [Moles/Vol] 23 mmol/L Normal 22-30 [facility] Comment on above: Performed By: #### P HOS, CMP, PTT, CBC, MG1, PT ####[facility] [place], [place] [phone] Creatinine [Mass/Vol] 0.76 mg/dL Normal 0.58-0.96 [facility] Comment on above: Performed By: #### P HOS, CMP, PTT, CBC, MG1, PT ####[facility] [place] [address] [phone] eGFR- Amer. >60 Normal [facility] Comment on above: Performed By: #### P HOS, CMP, PTT, CBC, MG1, PT ####[address] [phone] eGFR-All Other Races >60 Normal [facility] Comment on above: Result Comment: eGFR (Estimated [...] P HOS, CMP, PTT, CBC, MG1, PT ####[address] [phone] Glucose [Mass/Vol] 119 mg/dL High 74-99 [facility] Comment on above: Result Comment: The [place] [employer] (ADA) provides guidance for cutoff [...] Standards of Medical Care in Diabetes 2016, [place] [employer]. Diabetes Care. 2016.39(Suppl 1). Performed By: #### P HOS, CMP, PTT, CBC, MG1, PT ####[address] [phone] Potassium [Moles/Vol] 4.0 mmol/L Normal 3.7-5.1 [facility] Comment on above: Performed By: #### P HOS, CMP, PTT, CBC, MG1, PT ####[address] [phone] Protein [Mass/Vol] 5.9 g/dL Low 6.3-8.0 [facility] Comment on above: Performed By: #### P HOS, CMP, PTT, CBC, MG1, PT ####[address] [phone] Sodium [Moles/Vol] 142 mmol/L Normal 136-144 [facility] Comment on above: Performed By: #### P HOS, CMP, PTT, CBC, MG1, PT ####[address] [phone] Urea nitrogen [Mass/Vol] 13 mg/dL Normal 7-21 [facility] Comment on above: Performed By: #### P HOS, CMP, PTT, CBC, MG1, PT ####[address] [phone] GASV + ALLon 04-27-2021 Base Excess 1 mmol/L Normal [facility] Comment on above: Performed By: #### V ALLBG ####[address] [phone] Blood Gas Comm, Ziyad . Normal [facility] Comment on above: Performed By: #### V ALLBG ####[place] [phone] Body temperature 98.6 [degF] Normal [facility] Comment on above: Performed By: #### V ALLBG ####[place] [address] [place], [place] [phone] Calcium [Moles/Vol] 1.21 mmol/L Normal 1.08-1.30 [facility] Comment on above: Performed By: #### V ALLBG ####[place] [address] [address], [place] [phone] Carboxyhemoglobin, Ziyad 0.7 % Normal <2.1 [facility] Comment on above: Performed By: #### V ALLBG ####[address] [phone] CO2 [Moles/Vol] 29 mmol/L Normal 25-29 [facility] Comment on above: Performed By: #### V ALLBG ####[place] [address] [place], [place] [phone] Glucose [Mass/Vol] 97 mg/dL Normal 60-105 [facility] Comment on above: Performed By: #### V ALLBG ####[place] [address] [place], [place] [phone] HCO3 (Bld) [Moles/Vol] 27 mmol/L Normal 24-28 [facility] Comment on above: Performed By: #### V ALLBG ####[place] [address] [address], [place] [phone] Hematocrit (Bld) [Volume fraction] 38.2 % Normal 36.0-46.0 [facility] Comment on above: Performed By: #### V ALLBG ####[place] [address] [address] [place], [place] [phone] Hemoglobin (Bld) [Mass/Vol] 12.4 g/dL Normal 11.5-15.5 [facility] Comment on above: Performed By: #### V ALLBG ####[facility] [phone] Lactate [Moles/Vol] 1.1 mmol/L Normal 0.5-2.2 [facility] Comment on above: Performed By: #### V ALLBG ####[place] [address] [place] [phone] Methemoglobin 0.7 % Normal <1.6 [facility] Comment on above: Performed By: #### V ALLBG ####[place] [address] [address] [phone] O2 Administered 100% Normal [facility] Comment on above: Performed By: #### V ALLBG ####[place] [address] [address] [phone] Oxyhemoglobin, Ziyad. 92 % High 60-85 [facility] Comment on above: Performed By: #### V ALLBG ####[place] [address] [address] [phone] pCO2 53 mm Hg Normal 42-55 [facility] Comment on above: Performed By: #### V ALLBG ####[place] [address] [address] [phone] pCO2, Temp Correct 53 mm Hg Normal 42-55 [facility] Comment on above: Performed By: #### V ALLBG ####[place] [address] [place] [phone] pH (Bld) 7.33 [pH] Normal 7.32-7.42 [facility] Comment on above: Performed By: #### V ALLBG ####[facility] [phone] pH, Temp Corrected 7.33 Normal 7.32-7.42 [facility] Comment on above: Performed By: #### V ALLBG ####[facility], [place] [phone] pO2 70 mm Hg High 35-45 [facility] Comment on above: Performed By: #### V ALLBG ####[place] [address] [address], [place] [phone] pO2, Temp Corrected 70 mm Hg High 35-45 [facility] Comment on above: Performed By: #### V ALLBG ####[place] [address] [address] [phone] Potassium [Moles/Vol] 3.9 mmol/L Normal 3.5-5.0 [facility] Comment on above: Performed By: #### V ALLBG ####[place] [address] [address], [place] [phone] Sodium [Moles/Vol] 143 mmol/L Normal 136-144 [facility] Comment on above: Performed By: #### V ALLBG ####[place] [address] [address] [phone] Base Excess 0 mmol/L Normal [facility] Comment on above: Performed By: #### V ALLBG ####[place] [address] [address], [place] [phone] Blood Gas Comm, Ziyad . Normal [facility] Comment on above: Performed By: #### V ALLBG ####[place] [address] [address], [place] [phone] Body temperature 98.6 [degF] Normal [facility] Comment on above: Performed By: #### V ALLBG ####[place] [address] [address], [place] [phone] Calcium [Moles/Vol] 1.22 mmol/L Normal 1.08-1.30 [facility] Comment on above: Performed By: #### V ALLBG ####[place] [address] [place] [place], [place] [phone] Carboxyhemoglobin, Ziyad 0.6 % Normal <2.1 [facility] Comment on above: Performed By: #### V ALLBG ####[place] [address] [address], [place] [phone] CO2 [Moles/Vol] 27 mmol/L Normal 25-29 [facility] Comment on above: Performed By: #### V ALLBG ####[place] [address] [address] [place] [phone] Glucose [Mass/Vol] 130 mg/dL High 60-105 [facility] Comment on above: Performed By: #### V ALLBG ####[place] [address] [address], [place] [phone] HCO3 (Bld) [Moles/Vol] 26 mmol/L Normal 24-28 [facility] Comment on above: Performed By: #### V ALLBG ####[place] [address] [address], [place] [phone] Hematocrit (Bld) [Volume fraction] 42.7 % Normal 36.0-46.0 [facility] Comment on above: Performed By: #### V ALLBG ####[place] [address] [address] [phone] Hemoglobin (Bld) [Mass/Vol] 13.9 g/dL Normal 11.5-15.5 [facility] Comment on above: Performed By: #### V ALLBG ####[place] [address] [address], [place] [phone] Lactate [Moles/Vol] 1.3 mmol/L Normal 0.5-2.2 [facility] Comment on above: Performed By: #### V ALLBG ####[place] [address] [address], [place] [phone] Methemoglobin 1.1 % Normal <1.6 [facility] Comment on above: Performed By: #### V ALLBG ####[facility], [place] [phone] O2 Administered 100% Normal [facility] Comment on above: Performed By: #### V ALLBG ####[facility], [place] [phone] Oxyhemoglobin, Ziyad. 88 % High 60-85 [facility] Comment on above: Performed By: #### V ALLBG ####[facility] [place] [phone] pCO2 49 mm Hg Normal 42-55 [facility] Comment on above: Performed By: #### V ALLBG ####[place] [address] [address], [place] [phone] pCO2, Temp Correct 49 mm Hg Normal 42-55 [facility] Comment on above: Performed By: #### V ALLBG ####[place] [address] [address] [place] [phone] pH (Bld) 7.34 [pH] Normal 7.32-7.42 [facility] Comment on above: Performed By: #### V ALLBG ####[facility], [place] [phone] pH, Temp Corrected 7.34 Normal 7.32-7.42 [facility] Comment on above: Performed By: #### V ALLBG ####[facility], [place] [phone] pO2 64 mm Hg High 35-45 [facility] Comment on above: Performed By: #### V ALLBG ####[facility] [address], [place] [phone] pO2, Temp Corrected 64 mm Hg High 35-45 [facility] Comment on above: Performed By: #### V ALLBG ####[address] [phone] Potassium [Moles/Vol] 4.1 mmol/L Normal 3.5-5.0 [facility] Comment on above: Performed By: #### V ALLBG ####[address] [phone] Sodium [Moles/Vol] 142 mmol/L Normal 136-144 [facility] Comment on above: Performed By: #### V ALLBG ####[address] [phone] Magnesiumon 04-27-2021 Magnesium [Mass/Vol] 2.2 mg/dL Normal 1.7-2.3 [facility] Comment on above: Performed By: #### P HOS, CMP, PTT, CBC, MG1, PT ####[address] [phone] NURSING PROGon 04-27-2021 NURSING PROG HNO ID: [id number] Author: Jack Richards RN Service: Nursing Author Type: Registered Nurse Type: Nursing Progress Note Filed: 04/27/2021 10:46 PM Note Text: Nursing Progress: Topic: RESTRAINT NON-VIOLENT PATIENT NAME: Oscar Pineda PATIENT LOCATION: [place] [address] The patient demonstrates Lack of Understanding/Ability to [...] TIME: 10:00 PM Jack Richards RN Normal [facility] NURSING PROG HNO ID: [id number] Author: Karsten Goldsmith RN Service: Nursing Author Type: Registered Nurse Type: Nursing Progress Note Filed: 04/27/2021 8:51 AM Note Text: Nursing Progress: Topic: RESTRAINT NON-VIOLENT PATIENT NAME: Oscar Pineda PATIENT LOCATION: [place] [address] The patient demonstrates Lack of Understanding/Ability to [...] TIME: 8:51 AM Karsten Goldsmith RN Normal [facility] Phosphoruson 04-27-2021 Phosphate [Mass/Vol] 3.3 mg/dL Normal 2.7-4.8 [facility] Comment on above: Performed By: #### P HOS, CMP, PTT, CBC, MG1, PT ####[facility] [address] [place], [place] [phone] Protimeon 04-27-2021 PT INR 1.1 Normal 0.9-1.3 [facility] Comment on above: Result Comment: Neha min K Antagonist (VKA) Therapeutic Range: INR 2 to 3 (Target INR of 2.5) Note: For patients treated with VKA drugs, such as warfarin, the [employer] 2012 Guideline recommends [...] 2.5 to 3.5 (target INR of 3). Guyatt GH, et al. Chest 2012, 141:7S-47S Daphne RA, et al. JAC 2017, 70: 252-289 Performed By: #### P HOS, CMP, PTT, CBC, MG1, PT ####[facility] [place], [place] [phone] PT Sec 11.2 sec Normal 9.7-13.0 [facility] Comment on above: Performed By: #### P HOS, CMP, PTT, CBC, MG1, PT ####[facility] [address], [place] [phone] US ABDOMEN LTDon 04-27-2021 US ABDOMEN LTD * * *Final Report* * * DATE OF EXAM: Apr 27 2021 12:24PM [facility] - US ABDOMEN LTD / PROCEDURE [...] within the hepatic veins or visualized IVC. [employer] Engraver: PSCB Transcribe Date/Time: Apr 27 2021 12:34P Dictated by : POONAM BLUM MD This examination was interpreted and the report reviewed and electronically signed by: ALICIA MENDOZA MD on Apr 27 2021 2:57PM EST [id number] Normal [facility] XR CHEST 1V FRONTALon 2020 XR CHEST [...] cardiomediastinal silhouette. Other: . IMPRESSION: See result. [employer] Engraver: PSCB Transcribe Date/Time: Apr 27 2021 10:29A Dictated by : TAYLOR CORONA MD This examination was interpreted and the report reviewed and electronically signed by: TAYLOR CORONA MD on Apr 27 2021 10:31AM EST [id number] Normal [facility] ANES Sachin 04-26-2021 ANES POST HNO ID: [id number] Author: Tamara Brown DO Service: Anesthesiology Author [...] 26, 2021 TIME: 2:26 PM PAGER/CONTACT #: [phone] Normal [facility] APTTon 04-26-2021 aPTT Coag (Bld) [Time] 22.2 s Low 23.0-32.4 [facility] Comment on above: Result Comment: Unfr actionated [...] laboratory APTT reagent in use throughout the [facility]. Performed By: #### C BC, MG1, PT, PTT, BMP, PHOS ####[facility] [place], [place] [phone] BRIEF OP NOTon 04-26-2021 BRIEF OP NOT HNO ID: [id number] Author: Kayce Ricardo MD Service: Radiology Author Type: Physician Type: Brief Op Note Filed: 04/26/2021 3:28 PM Note Text: BRIEF OPERATIVE / PROCEDURE NOTE LOG ID: [id number] SURGERY/PROCEDURE DATE: 04/26/2021 INCISION/PROCEDURE START TIME: 9:25 AM INCISION CLOSE/PROCEDURE END TIME: 11:20 AM SURGEON(S)/PROCEDURALIS T(S) AND LOAD TALLIER(S): Surgeon(s) and Role: * Kayce Ricardo MD [...] DATE: April 26, 2021 TIME: 2:59 PM [phone] Normal [facility] Basic Metabolic Panlon 04-26 Anion gap [Moles/Vol] 11 mmol/L Normal 9-18 [facility] Comment on above: Performed By: #### C BC, MG1, PT, PTT, BMP, PHOS ####[facility] [address] [place], [place] [phone] Calcium [Mass/Vol] 8.3 mg/dL Low 8.5-10.2 [facility] Comment on above: Performed By: #### C BC, MG1, PT, PTT, BMP, PHOS ####[facility] [address] [place], [place] [phone] Chloride [Moles/Vol] 107 mmol/L High 97-105 [facility] Comment on above: Performed By: #### C BC, MG1, PT, PTT, BMP, PHOS ####[place] [address] [address] [place] [phone] CO2 [Moles/Vol] 22 mmol/L Normal 22-30 [facility] Comment on above: Performed By: #### C BC, MG1, PT, PTT, BMP, PHOS ####[place] [address] [address] [place] [phone] Creatinine [Mass/Vol] 0.74 mg/dL Normal 0.58-0.96 [facility] Comment on above: Performed By: #### C BC, MG1, PT, PTT, BMP, PHOS ####[place] [address] [address] [place] [phone] eGFR- Amer. >60 Normal [facility] Comment on above: Performed By: #### C BC, MG1, PT, PTT, BMP, PHOS ####[place] [address] [address] [place] [phone] eGFR-All Other Races >60 Normal [facility] Comment on above: Result Comment: eGFR (Estimated [...] C BC, MG1, PT, PTT, BMP, PHOS ####[place] [address] [address] [place] [phone] Glucose [Mass/Vol] 178 mg/dL High 74-99 [facility] Comment on above: Result Comment: The [place] [employer] (ADA) provides guidance for cutoff [...] Standards of Medical Care in Diabetes 2016, [employer]. Diabetes Care. 2016.39(Suppl 1). Performed By: #### C BC, MG1, PT, PTT, BMP, PHOS ####[address] [phone] Potassium [Moles/Vol] 4.1 mmol/L Normal 3.7-5.1 [facility] Comment on above: Performed By: #### C BC, MG1, PT, PTT, BMP, PHOS ####[place] [address] [address] [place], [place] [phone] Sodium [Moles/Vol] 140 mmol/L Normal 136-144 [facility] Comment on above: Performed By: #### C BC, MG1, PT, PTT, BMP, PHOS ####[place] [address] [address], [place] [phone] Urea nitrogen [Mass/Vol] 14 mg/dL Normal 7-21 [facility] Comment on above: Performed By: #### C BC, MG1, PT, PTT, BMP, PHOS ####[place] [address] [address], [place] [phone] CBCon 04-26-2021 Absolute nRBC <0.01 Normal <0.01 [facility] Comment on above: Performed By: #### C BC, MG1, PT, PTT, BMP, PHOS ####[place] [address] [address] [place] [phone] Erythrocyte distribution width (RBC) [Ratio] 11.9 % Normal 11.5-15.0 [facility] Comment on above: Performed By: #### C BC, MG1, PT, PTT, BMP, PHOS ####[place] [address] [address] [place] [phone] Hematocrit (Bld) [Volume fraction] 38.5 % Normal 36.0-46.0 [facility] Comment on above: Performed By: #### C BC, MG1, PT, PTT, BMP, PHOS ####[place] [address] [address] [place] [phone] Hemoglobin (Bld) [Mass/Vol] 13.2 g/dL Normal 11.5-15.5 [facility] Comment on above: Performed By: #### C BC, MG1, PT, PTT, BMP, PHOS ####[place] [address] [address] [place] [phone] MCH 31.7 pG Normal 26.0-34.0 [facility] Comment on above: Performed By: #### C BC, MG1, PT, PTT, BMP, PHOS ####[place] [address] [address] [place] [phone] MCHC (RBC) [Mass/Vol] 34.3 g/dL Normal 30.5-36.0 [facility] Comment on above: Performed By: #### C BC, MG1, PT, PTT, BMP, PHOS ####[place] [address] [address] [place] [phone] MCV (RBC) [Entitic vol] 92.3 fL Normal 80.0-100.0 [facility] Comment on above: Performed By: #### C BC, MG1, PT, PTT, BMP, PHOS ####[place] [address] [address] [place] [phone] Platelet mean volume (Bld) [Entitic vol] 9.6 fL Normal 9.0-12.7 [facility] Comment on above: Performed By: #### C BC, MG1, PT, PTT, BMP, PHOS ####[facility] [place], [place] [phone] Platelets (Bld) [#/Vol] 227 10*3/uL Normal 150-400 [facility] Comment on above: Performed By: #### C BC, MG1, PT, PTT, BMP, PHOS ####[facility] [place], [place] [phone] RBC (Bld) [#/Vol] 4.17 10*6/uL Normal 3.90-5.20 [facility] Comment on above: Performed By: #### C BC, MG1, PT, PTT, BMP, PHOS ####[place] [address] [place], [place] [phone] WBC (Bld) [#/Vol] 17.98 10*3/uL High 3.70-11.00 [facility] Comment on above: Performed By: #### C BC, MG1, PT, PTT, BMP, PHOS ####[facility] [place], [place] [phone] CONSULTon 04-26-2021 CONSULT HNO ID: [id number] Author: Jose M Cedillo MD Service: Interventional [...] Oscar BRITTON (more content not included)... Normal [facility] CONSULT HNO ID: [id number] Author: Oneida Ruano MD Service: Cardiovascular Medicine Author Type: Physician Type: Consults Filed: 04/27/2021 2:36 PM Note Text: [facility]ARD[facility]IC[facility] CONSULT NOTE Oscar Pineda [id number] CONSULTING SERVICE: SICU DATE OF ADMISSION: 04/26/2021 [...] Problems: # (more content not included)... Normal [facility] CT ABLATION MSK NOT BONE ALDO ORon 04-26-2021 CT ABLATION MSK NOT BONE TUMOR * * *Final Report* * * * * * SEE BOTTOM OF REPORT FOR ADDENDED TEXT * * * DATE OF EXAM: Apr 26 2021 11:24AM [facility] 2066 - CT ABLATION MSK NOT BONE TUMOR / PROCEDURE REASON: R19.34-Wnfcd-rwahmwewo and pelvic swelling, mass and lump, unspecified [...] for fur (more content not included)... Normal [facility] CT BRAIN WO IVCONon 04-26-[address] BRAIN WO IVCON * * *Final Report* * * DATE OF EXAM: Apr 26 2021 1:45PM [facility] 0504 - CT BRAIN WO IVCON / [...] reduction techniques were required COMPARISON: None. RESULT: Territory Service Representative (topogram) images: Endotracheal tube. Post-operative change: None. [...] Portable head CT demonstrating no acute findings. [employer] Mold Engraver: PSCB Transcribe Date/Time: Apr 26 2021 1:56P Dictated by : MARIA L SCHMIDT MD This examination was interpreted and the report reviewed and electronically signed by: MARIA L SCHMIDT MD on Apr 26 2021 1:58PM EST [id number] Normal [facility] Confirm Blood Typeon 021 ABO/RH(D) Positive Normal [facility] Comment on above: Performed By: #### C ONABO ####[place] [phone] Performed By: #### T SCR ####[place] [phone] Expedited [id number] 04-26-20 21 SARS-CoV-2 (COVID-19) RNA ROX+probe Ql (Unsp spec) UPPER RESPIRATORY TRACT SWAB Normal [facility] Comment on above: Performed By: #### E XCOVD ####[place] [phone] SARS-CoV-2 (COVID-19) RNA ROX+probe Ql (Unsp spec) Negative for COVID19 (SARS CoV2) by RT-PCR or equivalent method. Normal Negative for COVID19 (SARS CoV2) by RT-PCR or equivalent method. [facility] Comment on above: Result Comment: This test has been authorized by FDA under an Emergency Use Authorization (EUA). Test performed by [facility], [facility] [place], [address] [place] [address]. Performed By: #### E XCOVD ####[place] [address], [place] [phone] GASV + ALLon 04-26-2021 Base Excess Negative Normal [facility] Comment on above: Performed By: #### V ALLBG ####[place] [address] [place] [address], [place] [phone] Blood Gas Comm, Ziyad .VENOUS Normal [facility] Comment on above: Performed By: #### V ALLBG ####[place] [address] [address], [place] [phone] Body temperature 98.6 [degF] Normal [facility] Comment on above: Performed By: #### V ALLBG ####[address] [phone] Calcium [Moles/Vol] 1.23 mmol/L Normal 1.08-1.30 [facility] Comment on above: Performed By: #### V ALLBG ####[place] [address] [address] [place], [place] [phone] Carboxyhemoglobin, Ziyad 0.9 % Normal <2.1 [facility] Comment on above: Performed By: #### V ALLBG ####[place] [address] [address], [place] [phone] CO2 [Moles/Vol] 27 mmol/L Normal 25-29 [facility] Comment on above: Performed By: #### V ALLBG ####[place] [address] [address], [place] [phone] Glucose [Mass/Vol] 144 mg/dL High 60-105 [facility] Comment on above: Performed By: #### V ALLBG ####[place] [address] [address], [place] [phone] HCO3 (Bld) [Moles/Vol] 25 mmol/L Normal 24-28 [facility] Comment on above: Performed By: #### V ALLBG ####[facility] [place] [address] [place] [phone] Hematocrit (Bld) [Volume fraction] 43.2 % Normal 36.0-46.0 [facility] Comment on above: Performed By: #### V ALLBG ####[place] [address] [place] [address] [place] [phone] Hemoglobin (Bld) [Mass/Vol] 14.1 g/dL Normal 11.5-15.5 [facility] Comment on above: Performed By: #### V ALLBG ####[place] [address] [address] [phone] Lactate [Moles/Vol] 2.0 mmol/L Normal 0.5-2.2 [facility] Comment on above: Performed By: #### V ALLBG ####[place] [address] [address] [phone] Methemoglobin 0.7 % Normal <1.6 [facility] Comment on above: Performed By: #### V ALLBG ####[place] [address] [address] [place] [phone] O2 Administered 100% Normal [facility] Comment on above: Performed By: #### V ALLBG ####[place] [address] [address] [phone] Oxyhemoglobin, Ziyad. 81 % Normal 60-85 [facility] Comment on above: Performed By: #### V ALLBG ####[facility] [place] [phone] pCO2 53 mm Hg Normal 42-55 [facility] Comment on above: Performed By: #### V ALLBG ####[place] [address], [place] [phone] pCO2, Temp Correct 53 mm Hg Normal 42-55 [facility] Comment on above: Performed By: #### V ALLBG ####[facility], [place] [phone] pH (Bld) 7.30 [pH] Low 7.32-7.42 [facility] Comment on above: Performed By: #### V ALLBG ####[place] [address] [address], [place] [phone] pH, Temp Corrected 7.30 Low 7.32-7.42 [facility] Comment on above: Performed By: #### V ALLBG ####[place] [address] [address], [place] [phone] pO2 52 mm Hg High 35-45 [facility] Comment on above: Performed By: #### V ALLBG ####[place] [address] [address], [place] [phone] pO2, Temp Corrected 52 mm Hg High 35-45 [facility] Comment on above: Performed By: #### V ALLBG ####[place] [address] [address], [place] [phone] Potassium [Moles/Vol] 4.4 mmol/L Normal 3.5-5.0 [facility] Comment on above: Performed By: #### V ALLBG ####[place] [address] [address], [place] [phone] Sodium [Moles/Vol] 142 mmol/L Normal 136-144 [facility] Comment on above: Performed By: #### V ALLBG ####[place] [address] [address], [place] [phone] Base Excess Negative Normal [facility] Comment on above: Performed By: #### V ALLBG ####[place] [address] [address], [place] [phone] Blood Gas Comm, Ziyad .VENOUS Normal [facility] Comment on above: Performed By: #### V ALLBG ####[place] [address] [address], [place] [phone] Body temperature 98.6 [degF] Normal [facility] Comment on above: Performed By: #### V ALLBG ####[place] [address] [address], [place] [phone] Calcium [Moles/Vol] 1.25 mmol/L Normal 1.08-1.30 [facility] Comment on above: Performed By: #### V ALLBG ####[place] [address] [address], [place] [phone] Carboxyhemoglobin, Ziyad 0.5 % Normal <2.1 [facility] Comment on above: Performed By: #### V ALLBG ####[place] [address] [address], [place] [phone] CO2 [Moles/Vol] 25 mmol/L Normal 25-29 [facility] Comment on above: Performed By: #### V ALLBG ####[place] [address] [address], [place] [phone] Glucose [Mass/Vol] 172 mg/dL High 60-105 [facility] Comment on above: Performed By: #### V ALLBG ####[place] [address] [address], [place] [phone] HCO3 (Bld) [Moles/Vol] 24 mmol/L Normal 24-28 [facility] Comment on above: Performed By: #### V ALLBG ####[place] [address] [address], [place] [phone] Hematocrit (Bld) [Volume fraction] 44.2 % Normal 36.0-46.0 [facility] Comment on above: Performed By: #### V ALLBG ####[place] [address] [address], [place] [phone] Hemoglobin (Bld) [Mass/Vol] 14.4 g/dL Normal 11.5-15.5 [facility] Comment on above: Performed By: #### V ALLBG ####[facility] [phone] Lactate [Moles/Vol] 2.4 mmol/L High 0.5-2.2 [facility] Comment on above: Performed By: #### V ALLBG ####[facility] [place] [phone] Methemoglobin 1.2 % Normal <1.6 [facility] Comment on above: Performed By: #### V ALLBG ####[place] [address] [place] [phone] O2 Administered 100% Normal [facility] Comment on above: Performed By: #### V ALLBG ####[place] [address] [address] [phone] Oxyhemoglobin, Ziyad. 98 % High 60-85 [facility] Comment on above: Performed By: #### V ALLBG ####[facility] [place] [phone] pCO2 46 mm Hg Normal 42-55 [facility] Comment on above: Performed By: #### V ALLBG ####[facility] [phone] pCO2, Temp Correct 46 mm Hg Normal 42-55 [facility] Comment on above: Performed By: #### V ALLBG ####[facility] [address]level[address] [place] [phone] pH (Bld) 7.33 [pH] Normal 7.32-7.42 [facility] Comment on above: Performed By: #### V ALLBG ####[facility] [address] [phone] pH, Temp Corrected 7.33 Normal 7.32-7.42 [facility] Comment on above: Performed By: #### V ALLBG ####[facility] [address] [place], [place] [phone] pO2 246 mm Hg High 35-45 [facility] Comment on above: Performed By: #### V ALLBG ####[facility] [place] [address], [place] [phone] pO2, Temp Corrected 246 mm Hg High 35-45 [facility] Comment on above: Performed By: #### V ALLBG ####[place] [address] [place], [place] [phone] Potassium [Moles/Vol] 4.4 mmol/L Normal 3.5-5.0 [facility] Comment on above: Performed By: #### V ALLBG ####[place] [address] [place], [place] [phone] Sodium [Moles/Vol] 143 mmol/L Normal 136-144 [facility] Comment on above: Performed By: #### V ALLBG ####[facility], [place] [phone] HISTORY PHYSICALon HISTORY PHYSICAL HNO ID: [id number] Author: Kayce Ricardo MD Service: Radiology Author [...] April 26, 2021 TIME: 8:54 PM Normal [facility] Magnesiumon 04-26-2021 Magnesium [Mass/Vol] 1.9 mg/dL Normal 1.7-2.3 [facility] Comment on above: Performed By: #### C BC, MG1, PT, PTT, BMP, PHOS ####[facility] [address] [place], [place] [phone] NURSING PROGon 04-26-2021 NURSING PROG HNO ID: [id number] Author: Jack Richards RN Service: Nursing Author Type: Registered Nurse Type: Nursing Progress Note Filed: 04/26/2021 9:21 PM Note Text: Nursing Progress: Topic: RESTRAINT NON-VIOLENT PATIENT NAME: Oscar Pineda PATIENT LOCATION: [place] [address] The patient demonstrates Lack of Understanding/Ability to [...] TIME: 8:00 PM Jack Richards RN Normal [facility] NURSING PROG HNO ID: [id number] Author: Karsten Goldsmith RN Service: Nursing Author Type: Registered Nurse Type: Nursing Progress Note Filed: 04/26/2021 6:59 PM Note Text: Nursing Progress: Topic: RESTRAINT NON-VIOLENT PATIENT NAME: Oscar Pineda PATIENT LOCATION: [place] [address] The patient demonstrates Lack of Understanding/Ability to [...] TIME: 6:58 PM Karsten Goldsmith RN Normal [facility] PT EDon 04-26-2021 PT ED HNO ID: [id number] Author: Agnes Schaefer RN Service: Interventional Radiology [...] SUPPLEMENTAL MATERIAL: None REFERRAL (RECOMMENDATION): None Normal [facility] Phosphoruson 04-26-2021 Phosphate [Mass/Vol] 3.1 mg/dL Normal 2.7-4.8 [facility] Comment on above: Performed By: #### C BC, MG1, PT, PTT, BMP, PHOS ####[facility], [place] [phone] Protimeon 04-26-2021 PT INR 1.1 Normal 0.9-1.3 [facility] Comment on above: Result Comment: Neha min K Antagonist (VKA) Therapeutic Range: INR 2 to 3 (Target INR of 2.5) Note: For patients treated with VKA drugs, such as warfarin, the [employer] 2012 Guideline recommends [...] Chest 2012, 141:7S-47S Daphne RA, et al. [facility] 2017, 70: 252-289 Performed By: #### C BC, MG1, PT, PTT, BMP, PHOS ####[facility], [place] [phone] PT Sec 11.9 sec Normal 9.7-13.0 [facility] Comment on above: Performed By: #### C BC, MG1, PT, PTT, BMP, PHOS ####[facility] [address], [place] [phone] Staph aureus PCRon MRSA PCR Negative Normal [facility] Comment on above: Performed By: #### S APCR ####[facility], [place] [phone] S aureus Spec Source Nasal Normal [facility] Comment on above: Performed By: #### S APCR ####[facility], [place] [phone] Staph aureus PCR Negative Normal [facility] Comment on above: Performed By: #### S APCR ####[facility], [place] [phone] XR ABDOMEN 1V SUPINEon 04-26 XR ABDOMEN [...] loops of bowel. No focal bony abnormality. Tire Mold Engraver: [facility] Transcribe Date/Time: Apr 26 2021 2:53P Dictated by : RAMIN BROWNLEE MD This examination was interpreted and the report reviewed and electronically signed by: RAMIN BROWNLEE MD on Apr 26 2021 3:05PM EST [id number] Normal [facility] XR CHEST 1V FRONTAL PORTon 1 XR [...] No acute process identified. IMPRESSION: See result. Tire Mold Engraver: [facility] Transcribe Date/Time: Apr 26 2021 6:05P Dictated by : JASON LOWE MD This examination was interpreted and the report reviewed and electronically signed by: JASON LOWE MD on Apr 26 2021 6:07PM EST [id number] Normal [facility] XR CHEST 1V FRONTAL PORT * * [...] No acute process identified. IMPRESSION: See result. Tire Mold Engraver: ANEL Transcribe Date/Time: Apr 26 2021 3:57P Dictated by : JASON LOWE MD This examination was interpreted and the report reviewed and electronically signed by: JASON LOWE MD on Apr 26 2021 3:58PM EST [id number] Normal [facility] NURSING PROGon 04-24-2021 NURSING PROG HNO ID: [id number] Author: Shereen Kwok LPN Service: ? Author Type: LICENSED NURSE Type: Nursing Progress Note Filed: 04/24/2021 2:42 PM Note Text: Pre-procedure instructions: Contacted patient and confirmed appt. for Cryoablation scheduled on 04/26/21, at [facility]. Diet: Do not eat solid food after [...] Arrival at 6:30am to desk QB-1 (Betty Barling) and check in for your procedure. Animal Science Professor/Transportation: How will you be arriving for your procedure? Private car. If you will be arriving at [facility] via ambulance or public transportation, please call to discuss. You will need a responsible adult to accompany you to and from the procedure. Your commercial collections driver is required to stay with you until you are taken into the Procedure room. [facility] is currently restricting visitors to two visitors per patient. No visitor under the age of 16. You and your visitor will be screened for temperature and COVID-19 symptoms upon entry to the hospital, and a wristband will be applied when cleared. If you develop any of the following symptoms before your procedure, please call [phone]. Chills, joint pain, rash, sore throat, cough, [...] No Written instructions provided to patient via [employer] If you have any questions please call [phone] Normal [facility] MRI ABDOMEN WO/W IVCONon [facility] Vital Signs Date Time Vital Sign Value Performing Clinician Facility 10-10-2022 10:00-0400 Body height 161.29 cm Shaun Valentine Other [facility] Other 10-10-2022 10:00-0400 Body mass index (BMI) [Ratio] 23.08 kg/m2 Shaun Valentine Other [facility] Other 10-10-2022 10:00-0400 Body weight 60.06 kg Shaun Ball Other [facility] Other 10-10-2022 10:00-0400 Diastolic blood pressure 76 mm[Hg] Shaun Ball Other [facility] Other 10-10-2022 10:00-0400 Respiratory rate 12 /min Shaun Ball Other [facility] Other 10-10-2022 10:00-0400 Systolic blood pressure 110 mm[Hg] Shaun Ball Other [facility] Other 04-28-2022 15:46-0400 Body temperature 99.5 [degF] Melani Russell MD Work Phone: [facility] 04-28-2022 15:46-0400 Body weight 76.39 kg Melani Russell MD Work Phone: [facility] 04-28-2022 15:46-0400 Diastolic blood pressure 76 mm[Hg] Melani Russell MD Work Phone: [facility] 04-28-2022 15:46-0400 Heart rate 71 /min Melani Russell MD Work Phone: [facility] 04-28-2022 15:46-0400 Respiratory rate 20 /min Melani Russell MD Work Phone: [facility] 04-28-2022 15:46-0400 SaO2% (BldA) [Mass fraction] 97 % Melani Russell MD Work Phone: [facility] 04-28-2022 15:46-0400 Systolic blood pressure 131 mm[Hg] Melani Russell MD Work Phone: [facility] Encounters Encounter Date Encounter Type Care Provider Facility Start: 07-27-2023 End: 07-27-2023 ambulatory SUKHJINDER WIN Not Available Start: 06-29-2023 End: 06-29-2023 ambulatory ADRIANNE MERCHANT Not Available Start: 06-01-2023 End: 06-01-2023 ambulatory SUKHJINDER WIN Not Available Start: 02-25-2023 ambulatory Melani Hutchison Work Phone: Hematology/Oncology Comment on above: Start: 11-02-2022 Encounter for genera l adult medical examination without abnormal findings DR SHAUN VALENTINE [facility] Start: 10-27-2022 Telephone encounter Shaun Valentine [facility] Start: 10-27-2022 End: 10-28-[address] SHAUN VALENTINE [facility] [employer] [facility] [employer] Other Start: 10-27-2022 End: 10-28-2022 Encounter for general adult medical examination without abnormal findings DR SHAUN VALENTINE Facility: Start: 10-10-2022 End: 10-10-2022 ambulatory Shaun Valentine Other [facility] Other Start: 10-10-2022 Encounter for genera l adult medical examination without abnormal findings Shaun Valentine [facility] Start: 10-10-2022 Periodic preventive med est patient 18-39 yrs Shaun Valentine [facility] Start: 04-28-2022 End: 04-29-2022 ambulatory Melani Russell MD Work Phone: Hematology/Oncology Comment on above: History of tumor (Pr imary Dx) Start: 04-28-2022 End: 04-29-2022 Patient encounter procedure Melani Russell MD Work Phone: [facility] Start: 04-21-2022 End: 04-21-2022 ambulatory MELANI RUSSELL Facility:[facility] Start: 04-21-2022 End: 04-21-2022 Subsequent hospital visit by physician Mri 4 Radio Main Q (I-Stat/1.5t/3t) Work Phone: MRI Q 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] Start: 11-14-2021 ambulatory Melani Hutchison Work Phone: Hematology/Oncology 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 Start: 10-28-2021 Telephone encounter Melani Acuña rd, MD Work Phone: Hematology/Oncology Comment on above: Care Coordination Start: 09-27-2021 End: 09-27-2021 ambulatory MELANI GILLESPIED Facility:[facility] Start: 09-20-2021 End: 09-20-2021 ambulatory MELANI RUSSELL Facility:[facility] Start: 05-07-2021 End: 05-07-2021 ambulatory ALEX URBANO [facility] Start: 05-06-2021 End: 05-06-2021 ambulatory ALEX URBANO [facility] Start: 04-26-2021 End: 04-30-2021 Evaluation and management of inpatient KAYCE RICARDO [facility] Start: 02-28-2021 End: 02-28-2021 Subsequent hospital visit by physician Kiel [facility] Miriam (I-Stat/1.5t) Radiology Comment on above: Intra-abdominal and pelvic swelling, mass and lump, unspecified site [R19.00] Procedures Date Procedure Procedure Detail Performing Clinician Start: 04-29-2021 Antibody screen ALEX URBANO Comment on above: Performed By: #### T SCR ####[facility] [place], [place] [phone] Start: 04-26-2021 Antibody screen ALEX URBANO Comment on above: Performed By: #### T SCR ####[facility] [place], [place] [phone] Start: 02-28-2021 Mri abdomen w/o & w/contrast material Cortez Carter MD Work Phone: Plan of Treatment Date Care Activity Detail Author Start: 03-20-2023 Covid-19 Vaccine () Covid-19 Vaccine () [facility] Start: 03-20-2023 Influenza vaccination [facility] Start: 10-28-2022 End: 05-29-2023 Mri abdomen w/o & w/contrast material MRI ABDOMEN WO/W IVCON Radiology Routine History of tumor Expected: 10/28/2022, Expires: 05/29/2023 [facility] Work Phone: Comment on above: Expected: 10/28/2022 , Expires: 05/29/2023 Start: 10-28-2022 End: 05-29-2023 Mri pelvis w/o & w/contrast material MRI PELVIS WO/W IVCON Radiology Routine History of tumor Expected: 10/28/2022, Expires: 05/29/2023 [facility] Work Phone: Comment on above: Expected: 10/28/2022 , Expires: 05/29/2023 Start: 10-26-2022 End: 12-26-2022 CBC W Auto Differential panel - Blood ABS GRAN CT + CBC Lab Routine History of tumor Expected: 10/26/2022 (Approximate), Expires: 12/26/2022 [facility] Work Phone: Comment on above: Expected: 10/26/2022 (Approximate), Expires: 12/26/2022 Start: 10-26-2022 End: 12-26-2022 Comprehensive metabolic 2000 panel - Serum or Plasma COMP METABOLIC PANEL Lab Routine History of tumor Expected: 10/26/2022 (Approximate), Expires: 12/26/2022 [facility] Work Phone: Comment on above: Expected: 10/26/2022 (Approximate), Expires: 12/26/2022 Start: 07-20-2022 DEPRESSION ASSESSMENT DEPRESSION ASS ESSMENT [facility] Start: 03-20-2022 Influenza vaccination C [facility] Start: 09-12-2021 COVID-19 VACCINE (3 - Booster for Pfizer series) COVID-19 VACCINE (3 - Booster for Pfizer series) [facility] Start: 07-20-2021 DEPRESSION ASSESSMENT DEPRESSION ASS ESSMENT [facility] Start: 06-07-2021 COVID-19 VACCINE (3 - Booster for Pfizer series) COVID-19 VACCINE (3 - Booster for Pfizer series) [facility] Start: 06-07-2021 COVID-19 VACCINE (3 - Pfizer series) COVID-19 VACCINE (3 - Pfizer series) [facility] Start: 03-15-2020 Urine microalbumin profile DTaP,Tdap,Td Vaccine (2 - Tdap) [facility] Start: 2014 HPV TESTING HPV TESTING [facility] Start: 2005 PAP TESTING PAP TESTING [facility] Start: 2003 Urine microalbumin profile DTAP,TDAP,TD (1 - Tdap) [facility] Start: 2002 HEPATITIS C SCREENING HEPATITIS C SC URBANO [facility] Start: 2002 HIV SCREENING HIV SCREENING [facility] Start: 1996 Adult depression screening assessment DEPRESSION SCREENING [facility] Start: 1984 HEPATITIS B (1 of 3 - 3-dose series) HEPATITIS B (1 of 3 - 3-dose series) [facility] Start: 1984 Hepatitis B Vaccine (1 of 3 - 3-dose series) Hepatitis B Vaccine (1 of 3 - 3-dose series) [facility] End: 04-21-2022 Mri abdomen w/o & w/contrast material [facility] Work Phone: Comment on above: 1 Occurrences starti ng 04/21/2022 until 04/21/2022 End: 04-21-2022 Mri pelvis w/o & w/contrast material [facility] Work Phone: Comment on above: 1 Occurrences starti ng 04/21/2022 until 04/21/[facility] Immunization Date Immunization Notes Care Provider Ana lucas 04-12-2021 COVID-19 Vaccine Pfi zer - Documentation Purposes Only Shaun Valentine Other [facility] Other 03-22-2021 COVID-19 Vaccine Pfi zer - Documentation Purposes Only Shaun Valentine Other [facility] Other 06-09-2019 influenza virus vaccine, unspecified formulation Mri (I-Stat/1.5t) [facility] Payers Date Payer Category Payer Private Health Insurance [employer] A ETNA CHOICE POS II [id number] 2015-Present [phone] [address] [place] [address] POS [id number] 2015 Private Health Insurance [id number] 1984 Unknown [id number] 1984 Unknown [id number] 1984 Unknown [id number] 1984 Unknown [id number] 1959 Private Health Insurance [id number] Private Health Insurance [id number] Social History Date Type Detail Facility Start: 02-14-2021 Tobacco smoking stat [facility] Never smoked tobacco [facility] Start: 02-14-2021 Tobacco use and exposure Smoke less tobacco non-user [facility] Start: 1984 Sex Assigned At Female C [facility] Start: 01-15-2021 End: 04-28-2022 Exposure to SARS-CoV-2 (event) Not sure [facility] Start: 02-14-2021 End: 05-07-2021 Sex Assigned At [facility] Start: 02-14-2021 End: 05-07-2021 History of Social function [facility] Adult Depression Screening Assessment 0 [facility] Start: 02-26-2021 Gender identity Identifies as female gender (finding) [facility] Start: 03-27-2021 Sexual orientation Heterosexual (fin ding) [facility] Clinical Notes 02-28-2021 to 10-10-2022 Note Date & Type Note Facility 10-10-2022 Evaluation note Encounter Date Diagnosis Assessment Notes Sep, Wellness examination (ICD-10 - Z00.00) Sep, Hair thinning (ICD-10 - L65.9) Check H/H and TSH Not scarring [facility] Other 10-11-2022 History of Present illness Narrative* [...] Hematology and Medical Oncology documented in [facility]10-[facility] Nurse Note* Aliya Jean Baptiste RN - 04/28/2022 3:43 PM EDT Additional intake questions: Has the patient had fever, nausea, vomiting, diarrhea, constipation, fatigue for > 1 week? No Does the patient have a decreased appetite? No Does patient want to see a Heel Cementer? No (yes to any of above refer patient to schedulers for dietitian appointment) ) Does patient have any new or increased numbness or tingling of extremities? No Is patient interested in fertility information? No Does patient need any prescription refills? No Does patient have an advanced directive in place? No, Patient referred to [facility] Electronically Signed By: Aliya Jean Baptiste RN documented in this encounterNorwalk [facility] Hospital10-03-2022 NoteHNO ID: [id number] Author: Erin Garcia RN Service: ? Author [...] Pineda DATE: April 21, 2022 TIME: 5:35 [facility] [place]10-03-2022 NoteHNO ID: [id number] Author: RT Toby(R) Service: Radiology Author Type: Technologist Type: Progress [...] Intact, Site disposition Discontinued SIGNED BY: RT Toby(R) April 21, 2022 6:08 [facility] [place]10-03-2022 History of Present illness Narrative* Erin Garcia [...] Intact, Site disposition Discontinued SIGNED BY: RT Toby(R) April 21, 2022 6:08 PM documented in this encounterNorwalk [facility] Hospital04-13-2022 Miscellaneous Notes* Telephone Encounter - Brittany EPSTEIN - 10/30/2021 3:24 PM EDT Patient calling stating she has not received a call back, Please call @ [phone] * Telephone Encounter - Brittany EPSTEIN - 10/28/2021 10:02 AM EDT Oscar Pineda is calling Melani Russell MD today regarding Care Coordination,calling with questions about with her condition. Patient has been identified by name and birthdate. Duration of symptoms: N/A Requesting response back: call on cell [phone] (home) [phone] (cell) Brittany Banuelosfranklin EPSTEIN October 28, 2021 documented in this encounterNorwalk [facility] Hospital03-11-2022 NoteHNO ID: [id number] Author: Melani Russell MD Service: ? Author Type: Physician Type: Progress Notes Filed: 10/07/2021 12:24 PM Note Text: [facility] ESTABLISHED PATIENT VISIT PATIENT NAME: [...] Melani Pérez MD Internal Medicine Resident, PGY-1 [facility] 09/27/2021 SOLID TUMOR STAFF: ATTENDING PHYSICIAN NOTE [...] Russell MD, PhD Staff, Hematology and Medical OncologyW[facility]03-04-2022 Note HNO ID: [id number] Author: RT Eduardo(R) Service: Radiology Author Type: [...] BY: RT Eduardo(R) September 20, 2021 4:17 [facility] [place]03-04-2022 NoteHNO ID: [id number] Author: Ronda Arora Service: ? Author Type: [...] SITE APPEARANCE: Clean,Dry and Intact SIGNATURE: Ronda Ulysses PATIENT NAME: Oscar Pineda DATE: September 20, 2021 TIME: 3:22 [facility] [place]10-18-2021 NoteHNO ID: [id number] Author: LANETTE De Leon Service: ? Author Type: Genetic Counselor Type: Progress Notes Filed: 05/24/2021 11:18 AM Note Text: [facility] Consultation Note Genetic Counselor: Melida Quintero MS, [facility] Patient: Oscar Pineda Patient Name and confirmed at initiation of visit Visit was done virtually via Zoom Portions of the visit were done by genetic counseling technical support intern Suzanna Fishman under my supervision HIGH LEVEL [...] unknown descent and paternal ancestors are of Indian and Nepali descent. There is no Ashkenazi Bahai ancestry. The patient had limited information about [...] that the patient's genetic (more content not included)...[facility]10-12-2021 NoteHNO ID: [id number] Author: Katty Logan APRN.CNP Service: Critical Care Author Type: Nurse [...] the A/P section below. Please refer to [facility] for list of inpatient medications. VITAL [...] room air today KIMBER (more content not included)...[facility]10-11-2021 NoteHNO ID: [id number] Author: Kayce Ricardo MD Service: Radiology Author [...] her to go home. Kayce Ricardo MD [phone] Memorial Hospital10-11-2021 NoteHNO ID: [id number] Author: Marva Stiles APRN.HEALTH SERVICE WORKER Service: Critical Care Author Type: Nurse Practitioner [...] Completed decadron -> transitioned to medrol. Consulted [facility] for transfer of service. Addendum @ 1115: pt to remain in SICU, [facility] does not feel comfortable accepting pt given supplemental O2 needs and < 24 hrs since extubation. Objective MEDICATIONS: Current medications and allergies reviewed. Recommended/planned medication changes discussed in detail in the A/P section below. Please refer to [facility] for list of inpatient medications. 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 Pt suffered iatrogenic air embolism to [...] April 29, 2021 TIME: 8:45 AM PAGER/CONTACT #:[facility]10-10-2021 NoteHNO ID: [id number] Author: Sara Guzman APRN.HEALTH SERVICE WORKER Service: Critical Care Author Type: Nurse Practitioner [...] the A/P section below. Please refer to [facility] for list of inpatient medications. VITAL [...] Patient Clinically Ready to Transfer to [facility] or SDU?: No Discharge Planning: To [...] Current Assessment AND Pl (more content not included)...[facility]10-10-2021 NoteHNO ID: [id number] Author: Jose M Cedillo MD Service: Interventional [...] who presented for cryoablation on 04/26 with [facility] radiology. Pt suffered iatrogenic air embolism to [...] April 29, 2021 TIME: 8:34 AM PAGER/CONTACT #:[facility]10-09-2021 NoteHNO ID: [id number] Author: RT Agus(R) Service: Radiology Author Type: Technologist Type: Progress [...] IV DATA: Not applicable SIGNED BY: Ana Bautista, RD, RVT, Wallace April 27, 2021 12:23 [facility] [place]10-09-2021 History of Past illness Narrative* Problem Noted [...] of this encounter (statuses as of 11/01/2021) [facility]10-09-2021 History of Past illness Narrative* [...] of this encounter (statuses as of 11/19/2021) [facility]10-09-2021 History of Past illness Narrative* [...] of this encounter (statuses as of 04/22/2022) [facility]10-09-2021 History of Past illness Narrative* [...] of this encounter (statuses as of 04/29/2022) [facility]10-09-2021 History of Past illness Narrative* [...] of this encounter (statuses as of 02/25/2023) [facility]10-09-2021 NoteHNO ID: [id number] Author: Anila Wise APRN.HEALTH SERVICE WORKER Service: Critical Care Author Type: Nurse Practitioner [...] the A/P section below. Please refer to [facility] for list of inpatient medications. VITAL SIGNS: [...] Patient Clinically Ready to Transfer to [facility] or SDU?: No Discharge Planning: To [...] Pulmonary Acute respiratory insufficie (more content not included)...[facility]10-09-2021 NoteHNO ID: [id number] Author: Jose M Cedillo MD Service: Interventional [...] to look for air in the hepatic veinsWyandot Memorial Hospital 04-27-2021 NoteHNO ID: [id number] Author: Interface Note Service: ? Author Type: ? Type: Progress Notes Filed: 04/27/2021 2:51 AM Note Text: Epic Scheduled Downtime: 04/27/2021 1:00:00 AM to 04/27/2021 2:33:00 [facility]10-08-2021 NoteHNO ID: [id number] Author: Marva Stiles APRN.NGUYEN Service: Critical Care [...] the A/P section below. Please refer to [facility] for list of inpatient medications. VITAL SIGNS: [...] Patient Clinically Ready to Transfer to [facility] or SDU?: No Discharge Planning: To [...] 1245 vte pharmacologic prophyl (more content not included)...[facility]10-08-2021 NoteHNO ID: [id number] Author: Galdino Gaona DO Service: Critical Care Author Type: Fellow Type: Procedures Filed: 04/26/2021 4:34 PM Note Text: BEDSIDE PROCEDURE NOTE CENTRAL LINE INSERTION Date/Start Time: 04/26/2021 4:33 PM Performed by: Galdino Gaona DO Authorized by: Polly Reyna MD Informed Consent Consent Obtained: Written [place] Protocol A moment to CARE was completed. [...] was applied following the usual aseptic technique. [facility] Central Line Insertion Checklist, attached [...] Pineda DATE: April 26, 2021 TIME: 4:32 [facility] [place]10-08-2021 NoteHNO ID: [id number] Author: Polly Reyna MD Service: Critical Care [...] MD SICU Staff. 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 Intra-abdominal and pelvic swelling, mass and lump, unspecified site Abdominal mass, unspecified abdominal location documented in this encounter [facility]* Diagnosis History of tumor- Primary Personal history of other specified diseases documented [facility] noteNo InformationNortFult[facility] ID [employer] Other History general Narrative - Reported* Type Description Date Medical History Fatigue Medical History Gall bladder polyp Medical History Atopic dermatitis, mild Medical History DESMOID FIBROMATOSIS Surgical History C section x 3 Surgical History wisdom teeth Surgical History RIGHT ABDOMINAL WALL MASS Hospitalization History see above [place] [facility] Other Advance Directives No Advanced Directives Records FoundDocuments on File Type Date Recorded Patient Bracelet Former Expl anation Advance Directive(s) 04/10/2021 12:55 PM Advance Directive(s) 03/07/2021 6:15 PM Reason for Referral Specialty Diagnoses / Procedures Referred By Katie verdugo Referred To Contact MR IMAGING Diagnoses Desmoid Abdominal mass, unspecified abdominal location Procedures MRI PELVIS WO/W IVCON MRI PELVIS W/O & W/[place] [address] [place] [address] Mr Imaging Referral ID Status Reason Start Date Expiration Date V isits Requested Visits Authorized [id number] Closed Auto-Generate d Referral 03/30/2022 10/27/2022 1 1 Specialty Diagnoses / Procedures Referred By Contac t Referred To Contact MR IMAGING Diagnoses Desmoid Intra-abdominal and pelvic swelling, mass and lump, unspecified site Procedures MRI ABDOMEN WO/W IVCON MRI ABDOMEN W/O & W/CONTRAST MATERIAL Melani Russell MD [address] [place] [address] Mr Imaging Referral ID Status Reason Start Date Expiration Date V isits Requested Visits Authorized [id number] Closed Auto-Generate d Referral 03/30/2022 10/27/2022 1 1 Specialty Diagnoses / Procedures Referred By Contac t Referred To Contact MR IMAGING Diagnoses History of tumor Procedures MRI PELVIS WO/W IVCON MRI PELVIS W/O & W/CONTRAST MATERIAL Melani Russell MD [address] [place] [address] Mr Imaging Referral ID Status Reason Start Date Expiration Date Visits Requested Visits Authorized [id number] Pending Review Auto-Generat ed Referral 10/28/2022 05/29/2023 1 1 Specialty Diagnoses / Procedures Referred By Contac t Referred To Contact MR IMAGING Diagnoses History of tumor Procedures MRI ABDOMEN WO/W IVCON MRI ABDOMEN W/O & W/CONTRAST MATERIAL Melani Russell MD [address] [place] [address] Mr Imaging Referral ID Status Reason Start Date Expiration Date Visits Requested Visits Authorized [id number] Pending Review Auto-Generat ed Referral 10/28/2022 05/29/2023 [...] or prosecute any alcohol or drug abuse patient.[facility] Hospital[facility] the event this information is protected by the Federal Confidentiality of Alcohol and Drug Abuse Patient Records regulations: The Federal rules restrict any use of the information to criminally investigate or prosecute any alcohol or drug abuse patient.[facility] HospitalIn the event this information is protected by the Federal Confidentiality of Alcohol and Drug Abuse Patient Records regulations: The Federal rules restrict any use of the information to criminally investigate or prosecute any alcohol or drug abuse patient.[facility] HospitalIn the event this information is protected by the Federal Confidentiality of Alcohol and Drug Abuse Patient Records regulations: The Federal rules restrict any use of the information to criminally investigate or prosecute any alcohol or drug abuse patient.[facility] Hospital[facility] the event this information is protected by the Federal Confidentiality of Alcohol and Drug Abuse Patient Records regulations: The Federal rules restrict any use of the information to criminally investigate or prosecute any alcohol or drug abuse patient.[facility] HospitalIn the event this information is protected by the Federal Confidentiality of Alcohol and Drug Abuse Patient Records regulations: The Federal rules restrict any use of the information to criminally investigate or prosecute any alcohol or drug abuse patient.[facility] Reason for Visit (unrecogniz ed section and content) Reason Comments Care Coordination Reason Comments Radiology MRI Specialty Diagnoses / Procedures Referred By Contac t Referred To Contact MR IMAGING Diagnoses Desmoid Intra-abdominal and pelvic swelling, mass and lump, unspecified site Procedures MRI ABDOMEN WO/W IVCON MRI ABDOMEN W/O & [place] [address] [place] [address] Mr Imaging Referral ID Status Reason Start Date Expiration Date V isits Requested Visits Authorized [id number] Closed Auto-Generate d Referral 03/30/2022 10/27/2022 1 1 Reason Comments Established Patient Reason Comments Radiology MRI Specialty Diagnoses / Procedures Referred By Contac t Referred To Contact MR IMAGING Diagnoses Intra-abdominal and pelvic swelling, mass and lump, unspecified site Procedures MRI ABDOMEN WO/W IVCON MRI,ABDOMEN,W&WO Cortez Dubois MD [address] [place] [address] [place] [id number] Referral ID Status Reason Start Date Expiration Date V isits Requested Visits Authorized [id number] Closed Auto-Generate d Referral 02/14/2021 03/16/2022 1 1 Care Teams (unrecognized sec tion and content) Road Patcher Relationship Specialty Start Date End Date Melani Russell MD [address] [place] [phone] Physician Hematology/Oncology 05/20/21 Chey Tamayo, JOSE [address] [place] [phone] Specialty Preassembler [employer] Oncology 05/20/21 Road Patcher Relationship Specialty Start Date End Date Melani Russell MD [address] [place] [address] Physician Hematology/Oncology 05/20/21 Claritza Tamayo, RN [address] [place] [phone] Specialty Preassembler [employer] Oncology 05/20/21 Road Patcher Relationship Specialty Start Date End Date Melani Russell MD [address] [place] [phone] Physician Hematology/Oncology 05/20/21 Claritza Tamayo, RN [address] [place] [phone] Specialty Preassembler [employer] Board Oncology 05/20/21 Road Patcher Relationship Specialty Start Date End Date Melani Russell MD [address] [place] [phone] Physician Hematology/Oncology 05/20/21 Claritza Tamayo RN [address] [place] [address] Specialty Preassembler [employer] Board Oncology 05/20/21 Road Patcher Relationship Specialty Start Date End Date Melani Russell MD [address] [place] [address] Physician Hematology/Oncology 05/20/21 Suzanna Chaidez RN [address] [place] [phone] Specialty Preassembler [employer] Board Hematology/Oncology 06/10/22 INFORMATION SOURCE (unrecogn ized section and content) DATE CREATED AUTHOR 04/23/2022 [facility] DATE CREATED AUTHOR AUTHOR'S ORGANIZ ATION 11/02/2022 [facility] DATE CREATED AUTHOR AUTHOR'S ORGANIZ ATION 07/27/2023 [facility] FOR RECORDS PERTAINING TO PATIENTS WHO ARE [...] BE BASED ON THE PRIMARY CLINICAL RECORDS. [employer] provides no warranty or guarantee of the accuracy or completeness of information in this document.
== END 2023-07-31 18:01 | disposition home or self-care (01) ==
LOC: US 18:00
PROVIDERS: PCP Internal Medicine; Visit Provider Obstetrics & Gynecology
DX: O36.63X0 Maternal care for excessive fetal growth, third trimester, not applicable or unspecified (principal)
CPT/HCPCS: 76816

== ENCOUNTER 2023-08-28 09:28 | Outpatient (OUT) | payer OTHER, SELFPAY ==
--- OUTSIDE RECORDS SUMMARY | 2023-08-28 09:31 | XMS_ITS | CCD ---
Author Name Unknown Address [address] [place] [address] Organization [facility] Care Team Providers Care Locksmith Name Role Phone Drew JAMES, Melani Unavailable Yariel GARCIA, Chey Unavailable [phone] Yariel GARCIA, Claritza Andrade Unavailable [phone] Melani Russell MD Unavailable Claritza Tamayo RN Unavailable ALEX URBANO Referring Unavailable ALTAHAWI FAYSMARIELLA Attending Unavailable JARRETTAHKAYCE AMEZQUITA Admitting Unavailable RUSSELL, MELANI Attending Unavailable RUSSELL, MELANI Referring Unavailable RUSSELL, MELANI Referring Unavailable RUSSELL, MELANI Referring Unavailable RUSSELL, MELANI Referring Unavailable Shaun Valentine Unavailable DR SHAUN VALENTINE Admitting Unavailable SERGE, DR KINCAID Attending Unavailable SERGE, DR KINCAID Primary Care Unavailable SERGE, DR KINCAID Consulting Unavailable Melani Russell MD Unavailable Suzanna Chaidez RN Unavailable Unavailable Primary Care Provider UnavailSUKHJINDER Van Attending Unavailable SUKHJINDER WIN Attending Unavailable SUKHJINDER WIN Attending Unavailable SUKHJINDER WIN Attending Unavailable ADRIANNE MERCHANT Attending Unavailable Allergies Allergy Classification Reported Allergen(s) Allergy Type Date of Onset Reaction(s) Facility (7 sources) Codeine; Translations: [CODEINE] Drug Allergy [address] [facility] (7 sources) Adhesive Tape-Silicones; Translations: [ADHESIVE TAPE-SILICONES] Drug Allergy 1 Other: See Comments [facility] (2 sources) Adhesive agent Drug allergy Unknown [employer] Other (2 sources) Codeine Drug Allergy nausea [facility] [employer] Other (1 source) Codeine Drug Allergy 1 [facility] (1 source) Desonide Drug Allergy 1 [facility] Medications Current Medications Medication Drug Class(es) [...] 10-27-2022 BASO # 0.1 103/ul Normal 0.0-0.1 [facility] Comment on above: Performed By: #### C BC #### [facility] [address] [address] [address] Rancho Cobos Basophils/100 WBC (Bld) 0.9 % Normal 0.2-2.0 [facility] Comment on above: Performed By: #### C BC #### [facility] [address] [place] [address] Dr. Rancho Cobos EO # 0.1 103/ul Normal 0.0-0.7 [facility] Comment on above: Performed By: #### C BC #### [facility] [address] [place] [address] Dr. Rancho Cobos Eosinophils/100 WBC (Bld) 1.4 % Normal 0.9-7.0 [facility] Comment on above: Performed By: #### C BC #### [facility] [address] [place] [address] Dr. Rancho Cobos Erythrocyte distribution width (RBC) [Ratio] 11.8 % Normal 11.0-15.0 [facility] Comment on above: Performed By: #### C BC #### [facility] [address] [place] [address] Dr. Rancho Cobos Hematocrit (Bld) [Volume fraction] 38.5 % Normal 36.0-48.0 [facility] Comment on above: Performed By: #### C BC #### [facility] [address] [place] [address] Dr. Rancho Cobos Hemoglobin (Bld) [Mass/Vol] 13.3 g/dL Normal 12.0-16.0 [facility] Comment on above: Performed By: #### C BC #### [facility] [address] [place] [address] Dr. Rancho Cobos IG # 0.01 10e3/ul Normal 0.00-0.03 [facility] Comment on above: Performed By: #### C BC #### [facility] [address] [place] [address] Dr. Rancho Cobos IG % 0.2 % Normal 0.0-0.5 [facility] Comment on above: Performed By: #### C BC #### [facility] [address] [place] [address] Dr. Rancho Cobos LYMPH # 1.7 103/ul Normal 1.2-3.8 [facility] Comment on above: Performed By: #### C BC #### [facility] [address] [place] [address] Dr. Rancho Cobos Lymphocytes/100 WBC (Bld) 31.2 % Normal 20.5-60.0 [facility] Comment on above: Performed By: #### C BC #### [facility] [address] [place] [address] Dr. Rancho Cobos MANUAL DIFF REQ NO Normal [facility] Comment on above: Performed By: #### C BC #### [facility] [address] [place] [address] Dr. Rancho Cobos MCH (RBC) [Entitic mass] 31.9 pg Normal 26.7-34.0 [facility] Comment on above: Performed By: #### C BC #### [facility] [address] [place] [address] Dr. Rancho Cobos MCHC (RBC) [Mass/Vol] 34.5 g/dL Normal 29.9-35.2 [facility] Comment on above: Performed By: #### C BC #### [facility] [address] [place] [address] Dr. Rancho Cobos MCV (RBC) [Entitic vol] 92.3 fL Normal 81.0-99.0 [facility] Comment on above: Performed By: #### C BC #### [facility] [address] [place] [address] Dr. Rancho Cobos MONO # 0.3 103/ul Normal 0.3-0.8 [facility] Comment on above: Performed By: #### C BC #### [facility] [address] [address] [address] Rancho Cobos Monocytes/100 WBC (Bld) 5.2 % Normal 1.7-12.0 [facility] Comment on above: Performed By: #### C BC #### [facility] [address] [address] [address] Rancho Cobos NEUT # 3.4 103/ul Normal 1.4-6.5 [facility] Comment on above: Performed By: #### C BC #### [facility] [address] [place] [address] Dr. Rancho Cobos Neutrophils/100 WBC (Bld) 61.1 % Normal 43.0-75.0 [facility] Comment on above: Performed By: #### C BC #### [facility] [address] [place] [address] Dr. Rancho Cobos Platelet mean volume (Bld) [Entitic vol] 9.4 fL Critically low 9.5-13.5 [facility] Comment on above: Performed By: #### C BC #### [facility] [address] [place] [address] Dr. Rancho Cobos PLT 261 103/ul Normal 150-450 [facility] Comment on above: Performed By: #### C BC #### [facility] [address] [address] [address] Rancho Cobos RBC 4.17 106/ul Critically low 4.20-5.40 [facility] Comment on above: Performed By: #### C BC #### [facility] [address] [place] [address] Dr. Rancho Cobos WBC 5.6 103/ul Normal 4.0-11.0 [facility] Comment on above: Performed By: #### C BC #### [facility] [address] [place] [address] Dr. Rancho Cobos LIPID PROFILEon 10-27-2022 CHOL-HDL RATIO NORM SEE BELOW Normal [facility] Comment on above: Result Comment: 3.3 - 4.4 LOW RISK 4.4 - 7.1 AVERAGE RISK 7.1 - 11.0 MODERATE RISK >11.0 HIGH RISK Performed By: #### C MP, LIPID, TSH #### [facility] [address] [address] [address] Rancho Cobos Cholesterol [Mass/Vol] 162 mg/dL Normal <=200 [facility] Comment on above: Performed By: #### C MP, LIPID, TSH #### [facility] [address] [address] [address] Rancho Cobos Cholesterol in HDL [Mass/Vol] 56 mg/dL Normal 40-60 [facility] Comment on above: Performed By: #### C MP, LIPID, TSH #### [facility] [address] [address] [address] Rancho Cobos Cholesterol in LDL [Mass/Vol] 97.0 mg/dL Normal [facility] Comment on above: Performed By: #### C MP, LIPID, TSH #### [facility] [address] [address] [address] Rancho Cobos Cholesterol.total/ Cholesterol in HDL [Mass ratio] 2.9 {ratio} Normal [facility] Comment on above: Performed By: #### C MP, LIPID, TSH #### [facility] [address] [address] [address] Rancho Cobos HDL NORMAL > or = 60 mg/dl - LO W CARDIOVASCULAR RISK <40 mg/dl - HIGH CARDIOVASCULAR RISK Normal [facility] Comment on above: Performed By: #### C MP, LIPID, TSH #### [facility] [address] [address] [address] Rancho Cobos LDL CALC NORMAL SEE BELOW Normal [facility] Comment on above: Result Comment: <100 mg/dl OPTIMAL 100 - 129 mg/dl NEAR OR ABOVE OPTIMAL 130 - 159 mg/dl BORDERLINE HIGH 160 - 189 mg/dl HIGH >190 mg/dl VERY HIGH Performed By: #### C MP, LIPID, TSH #### [facility] [address] [address] [address] Rancho Cobos Triglyceride [Mass/Vol] 45 mg/dL Normal <=150 [facility] Comment on above: Performed By: #### C MP, LIPID, TSH #### [facility] [address] [address] [address] Rancho Cobos VLDL CALC 9.0 mg/dL Normal [facility] Comment on above: Performed By: #### C MP, LIPID, TSH #### [facility] [address] [address] [address] Rancho Cobos PROF 14(COMP METB)on 023 Albumin [Mass/Vol] 4.0 g/dL Normal 3.4-5.0 [facility] Comment on above: Performed By: #### C MP, LIPID, TSH #### [facility] [address] [place] [address] Dr. Rancho Cobos Albumin/Globulin [Mass ratio] 1.2 {ratio} Normal [facility] Comment on above: Performed By: #### C MP, LIPID, TSH #### [facility] [address] [place] [address] Dr. Rancho Cobos ALP [Catalytic activity/Vol] 34 U/L Critically low 46-116 [facility] Comment on above: Performed By: #### C MP, LIPID, TSH #### [facility] [address] [place] [address] Dr. Rancho Cobos ALT [Catalytic activity/Vol] 24 U/L Normal 14-59 [facility] Comment on above: Performed By: #### C MP, LIPID, TSH #### [facility] [address] [place] [address] Dr. Rancho Cobos Anion gap [Moles/Vol] 12.1 mmol/L Normal [facility] Comment on above: Performed By: #### C MP, LIPID, TSH #### [facility] [address] [place] [address] Dr. Rancho Cobos AST [Catalytic activity/Vol] 17 U/L Normal 15-37 [facility] Comment on above: Performed By: #### C MP, LIPID, TSH #### [facility] [address] [address] [address] Rancho Cobos Bilirubin [Mass/Vol] 0.5 mg/dL Normal 0.2-1.0 [facility] Comment on above: Performed By: #### C MP, LIPID, TSH #### [facility] [address] [place] [address] Dr. Rancho Cobos Calcium [Mass/Vol] 9.2 mg/dL Normal 8.5-10.1 [facility] Comment on above: Performed By: #### C MP, LIPID, TSH #### [facility] [address] [place] [address] Dr. Rancho Cobos Chloride [Moles/Vol] 107 mmol/L Normal 98-107 [facility] Comment on above: Performed By: #### C MP, LIPID, TSH #### [facility] [address] [place] [address] Dr. Rancho Cobos CO2 [Moles/Vol] 28.5 mmol/L Normal 21.0-32.0 [facility] Comment on above: Performed By: #### C MP, LIPID, TSH #### [facility] [address] [place] [address] Dr. Rancho Cobos Creatinine [Mass/Vol] 0.72 mg/dL Normal 0.55-1.02 [facility] Comment on above: Performed By: #### C MP, LIPID, TSH #### [facility] [address] [place] [address] Dr. Rancho Cobos EGFR-AF CROATIAN >60 Normal >=[address] [facility] Comment on above: Performed By: #### C MP, LIPID, TSH #### [facility] [address] [place] [address] Dr. Rancho Cobos EGFR-NON AF CROATIAN >60 Normal >=60 [facility] Comment on above: Performed By: #### C MP, LIPID, TSH #### [facility] [address] [place] [address] Dr. Rancho Cobos Globulin (S) [Mass/Vol] 3.4 g/dL Normal [facility] Comment on above: Performed By: #### C MP, LIPID, TSH #### [facility] [address] [address] [address] Rancho Cobos Glucose [Mass/Vol] 92 mg/dL Normal 74-106 [facility] Comment on above: Performed By: #### C MP, LIPID, TSH #### [facility] [address] [address] [address] Rancho Cobos Potassium [Moles/Vol] 4.6 mmol/L Normal 3.5-5.1 [facility] Comment on above: Performed By: #### C MP, LIPID, TSH #### [facility] [address] [address] [address] Rancho Cobos Protein [Mass/Vol] 7.4 g/dL Normal 6.4-8.2 [facility] Comment on above: Performed By: #### C MP, LIPID, TSH #### [facility] [address] [address] [address] Rancho Cobos Sodium [Moles/Vol] 143 mmol/L Normal 136-145 [facility] Comment on above: Performed By: #### C MP, LIPID, TSH #### [facility] [address] [address] [address] Rancho Cobos Urea nitrogen [Mass/Vol] 18.0 mg/dL Normal 7.0-18.0 [facility] Comment on above: Performed By: #### C MP, LIPID, TSH #### [facility] [address] [address] [address] Rancho Cobos Urea nitrogen/Creatinin e [Mass ratio] 25.0 mg/mg Normal [facility] Comment on above: Performed By: #### C MP, LIPID, TSH #### [facility] [address] [address] [address] Rancho Cobos TSHon 10-27-2022 TSH 1.005 uIU/mL Normal 0.358-3.740 [facility] Comment on above: Performed By: #### C MP, LIPID, TSH #### [facility] [address] [address] [address] Rancho Cobos MRI ABDOMEN WO/W IVCONon [...] suspicious marrow signal abnormality. Lower chest: Unremarkable. Optical Mechanic (localizer) images: No additional findings. IMPRESSION: Evolving changes of RIGHT rectus abdominis muscle ablation without local recurrence. No metastatic disease in abdomen or pelvis Motorcoach Operator: ANEL Transcribe Date/Time: Apr 22 2022 10:29A Dictated by : LIBRADO JOAQUIN DO This examination was interpreted and the report reviewed and electronically signed by: CANELO EDMONDSON MD on Apr 22 2022 12:49PM EST [id number] Normal [facility] MRI PELVIS WO/W IVCONon 10-0 MRI PELVIS WO/W IVCON * * *Final Report* * * DATE OF EXAM: Apr 21 2022 6:39PM Q 0742 - MRI PELVIS WO/W IVCON [...] suspicious marrow signal abnormality. Lower chest: Unremarkable. Optical Mechanic (localizer) images: No additional findings. IMPRESSION: Evolving changes of RIGHT rectus abdominis muscle ablation without local recurrence. No metastatic disease in abdomen or pelvis Motorcoach Operator: [facility] Transcribe Date/Time: Apr 22 2022 10:29A Dictated by : LIBRADO JOAQUIN, This examination was interpreted and the report reviewed and electronically signed by: CANELO EDMONDSON MD on Apr 22 2022 12:49PM EST [id number] Normal [facility] 10-28-2021 CNPN Telephone (HEMCA3) OSCAR PINEDA ([id number]) 1985 F Date Time Provider Department 10/28/21 MELANI RUSSELL HEMCA3 During your visit today, we recorded the following information about you: Brittany Avendaño ADM 10/28/2021 10:04 AM Signed Oscar Pineda is calling Melani Russell MD today regarding Care Coordination,calling with questions about with her condition. Patient has been identified by name and birthdate. Duration of symptoms: N/A Requesting response back: call on cell [phone] (home) [phone] (cell) Brittany Avendaño [facility] October 28, 2021 Brittany Banueloss [facility] 10/30/2021 3:25 PM Signed Patient calling stating she has not received a call back, Please call @ [phone] Melani Russell MD 11/19/2021 10:20 AM Signed This has been addressed through an REscour message. Melani Russell MD, PhD Staff, Hematology and Medical Oncology Allergies As of Date: 10/28/2021 Noted Allergy Reaction CODEINE 02/01/2021 8 - GI Upset ADHESIVE TAPE-SILICONES 02/14/2021 14 - Other: See Comments Comments: Blisters Date Reviewed: 09/27/2021 Reviewed by: Aliya Jean Baptiste RN - Fully Assessed Reason for Visit: Care Coordination [7881] Prescriptions as of 11/19/2021 - sulindac (CLINORIL) [...] Encounter Status:Closed by BRITTANY LIAO on 11/01/21 [facility] CNOVSPon 09-27-2021 CNOVSP Visit (SP) Office (HEMCA4) RAÚLOSCAR Navarro ([id number]) 1985 F Date Time Provider Department 09/27/21 9:00 AM MELANI RUSSELL HEMTHAD During your visit today, we recorded the following information about you: Pulse Respiration Blood pressure Weight 65/minute 20/minute 149/67 77.6 kg Melani Russell MD 10/07/2021 12:[address] [facility] ESTABLISHED PATIENT VISIT PATIENT NAME: Oscar Pineda [...] in RLQ LABS: Reviewed IMAGING: MRI Abdomen/Pelvis 3/4/22: Interval ablation of soft tissue mass in [...] Melani Pérez MD Internal Medicine Resident, PGY-1 [facility] 09/27/2021 SOLID TUMOR STAFF: ATTENDING PHYSICIAN [...] No Does patient want to see a Paper Bag Making Machinist? No (yes to any of (more content not included)... Normal [facility] MRI ABDOMEN WO/W IVCONon MRI ABDOMEN [...] diffusion weighted and T1 weighted in- and fqu-bz-upnct images were obtained. Then, using a 3-D [...] muscle mass, without evidence for residual/recurrent disease. Motorcoach Operator: PSCB Transcribe Date/Time: Sep 20 2021 4:49P Dictated by : CHRIS MILIAN MD This examination was interpreted and the report reviewed and electronically signed by: CHRIS MILIAN MD on Sep 20 2021 4:58PM EST [id number] Normal [facility] MRI PELVIS WO/W IVCONon 03-0 MRI PELVIS WO/W IVCON * * *Final Report* * * DATE OF EXAM: Sep 20 2021 4:30PM QBM 0742 - MRI PELVIS WO/W IVCON [...] diffusion weighted and T1 weighted in- and fih-sb-ufayv images were obtained. Then, using a 3-D [...] muscle mass, without evidence for residual/recurrent disease. Motorcoach Operator: ANEL Transcribe Date/Time: Sep 20 2021 4:49P Dictated by : CHRIS MILIAN MD This examination was interpreted and the report reviewed and electronically signed by: CHRIS MILIAN MD on Sep 20 2021 4:58PM EST [id number] Normal [facility] CNPNon 08-09-2021 CNPN Telephone (HEMCA3) OSCAR PINEDA ([id number]) 1985 F Date Time Provider Department 08/09/21 MELANI RUSSELL HEMCA3 During your visit today, we recorded the following information about you: Marva Ingraml Adm 08/09/2021 11:32 AM Signed Oscar Pineda is calling Melani Russell MD today regarding Care Coordination (appointment question). Patient wants to know if Dr. Russell would prefer to see her after her 08/23 MRI. She is scheduled for an OV on 08/16. Patient has been identified by name and birthdate. Duration of symptoms: N/A Requesting response back: call on cell [phone] (home) [phone] (cell) Marva Burciaga Adm August 09, 2021 Chey Tamayo RN 08/09/2021 4:42 PM Signed Returned call to patient and informed her that moving her visit with Dr. Russell after the MRI would be best to establish a plan of care. Patient was appreciative of return call and information. Chey Tamayo RN Back End Developer August 09, 2021 Allergies As of Date: 08/09/2021 Noted Allergy Reaction CODEINE 02/01/2021 8 - GI Upset ADHESIVE TAPE-SILICONES 02/14/2021 14 - Other: See Comments Comments: Blisters Date Reviewed: 04/30/2021 Reviewed by: Magda Rose RN - Fully Assessed Reason for Visit: Care Coordination [2031] Cmt: appointment question Prescriptions as of 08/09/2021 [...] Encounter Status:Closed by CLARITZA TAMAYO on 08/09/21 [facility] Nishant 05-22-2021 CNPN Telephone (GMINE) OSCAR PINEDA ([id number]) 1985 F Date Time Provider Department 05/22/21 MELIDA QUINTERO During your visit today, we recorded the following information about you: LANETTE De Leon 05/22/2021 2:32 PM Signed Patient name and was confirmed at initiation of discussion. Oscar Pineda's Common Hereditary Cancers Panel through [employer] was negative for a pathogenic variant. Please [...] Encounter Status:Closed by MELIDA QUINTERO on 05/22/21 [facility] OSCAR PINEDA ([id number]) 1985 F Date Time Provider Department 05/15/21 MELANI RUSSELL During your visit today, we recorded the following information about you: Marva Gualberto Adm 05/15/2021 4:25 PM Signed Oscar Pineda is calling Melani Russell MD today regarding Care Coordination. Patient said that they had discussed her starting a new medication. Patient called to follow up that. Patient has been identified by name and birthdate. Duration of symptoms: N/A Requesting response back: call on cell [phone] (home) [phone] (cell) Marva Burciaga Adm May 15, 2021 [...] by MELANI RUSSELL on 05/17/21 Normal [facility] Molecular Teston 2020 Test Common Hereditary Cancers Panel Normal [facility] Comment on above: Performed By: #### M OL13 ####[facility] [id number] [place] [address] Test Results View results in Scan zahraa Documents link when available. Normal [facility] Comment on above: Performed By: #### M OL13 ####[facility] [id number] [facility] [place] [address] Nishant 05-01-2021 ANUJ Telephone (JULIANN) KATHIE PINEDALE ([id number]) 1985 F Date Time Provider Department 05/01/21 [...] questions or concerns. Mindy Farley Genetic Counselor Air Compressor Engineer Allergies As of Date: 05/01/2021 Noted Allergy [...] Status:Closed by MINDY FARLEY on 05/01/21 Normal [facility] CBCon 04-30-2021 Absolute nRBC <0.01 Normal <0.01 [facility] Comment on above: Performed By: #### C BC ####[facility] [id number] [place], [place] [phone] Erythrocyte distribution width (RBC) [Ratio] 12.0 % Normal 11.5-15.0 [facility] Comment on above: Performed By: #### C BC ####[facility] [id number] [place], [place] [phone] Hematocrit (Bld) [Volume fraction] 33.8 % Low 36.0-46.0 [facility] Comment on above: Performed By: #### C BC ####[place] [address] [address], [place] [phone] Hemoglobin (Bld) [Mass/Vol] 11.8 g/dL Normal 11.5-15.5 [facility] Comment on above: Performed By: #### C BC ####[place] [address] [address], [place] [phone] MCH 31.5 pG Normal 26.0-34.0 [facility] Comment on above: Performed By: #### C BC ####[place] [address] [address], [place] [phone] MCHC (RBC) [Mass/Vol] 34.9 g/dL Normal 30.5-36.0 [facility] Comment on above: Performed By: #### C BC ####[place] [address] [address], [place] [phone] MCV (RBC) [Entitic vol] 90.1 fL Normal 80.0-100.0 [facility] Comment on above: Performed By: #### C BC ####[place] [address] [address], [place] [phone] Platelet mean volume (Bld) [Entitic vol] 9.6 fL Normal 9.0-12.7 [facility] Comment on above: Performed By: #### C BC ####[place] [address] [address] [place], [place] [phone] Platelets (Bld) [#/Vol] 182 10*3/uL Normal 150-400 [facility] Comment on above: Performed By: #### C BC ####[place] [address] [address], [place] [phone] RBC (Bld) [#/Vol] 3.75 10*6/uL Low 3.90-5.20 [facility] Comment on above: Performed By: #### C BC ####[facility] [address] [place], [place] [phone] WBC (Bld) [#/Vol] 12.88 10*3/uL High 3.70-11.00 [facility] Comment on above: Performed By: #### C BC ####[facility] [address] [place], [place] [phone] CNDSon 04-30-2021 CNDS HNO ID: [id number] Author: Katty Logan APRN.MACHINE ADJUSTER HELPER Service: Critical Care Author Type: Nurse Practitioner Type: Discharge Summary Filed: 04/30/2021 1:39 PM Note Text: DISCHARGE SUMMARY PATIENT NAME: Oscar Pineda ADMISSION DATE: 04/26/2021 DISCHARGE DATE: 04/30/2021 ATTENDING: Kayce Wagner MD Code Status: Not on file Highest [...] air KIMBER (more content not included)... Normal [facility] THERAPY NTon 04-30-2021 THERAPY NT HNO ID: [id number] Author: Licha Llanes PT Service: Physical Therapy Author Type: Physical Therapist Type: Therapy (PT/OT/Speech/Resp) Filed: 04/30/2021 3:02 PM Note Text: Physical Therapy Treatment SERVICE DATE: 04/30/2021 SERVICE TIME: 1342 to 1351 ROOM: [place] [address] Recommended Discharge Disposition: Home Recommended Discharge Disposition [...] Arm swing decreased;Antalgic gait;Dianne decreased;Step length decreased JH-HLM: 7: Walk 25 feet or more Learning/Educational [...] gait and mobility-other Interventions Provided: Gait Training (55263) Gait Training (05667) Treatment Minutes: 9 $ Gait Training (44017) Billed Units: 1 unit Training AND education provided in: Discharge planning, Energy conservation, Exercise program, Expected functional level, Falls prevention, Gait pattern, reduction of deviations, Home safe (more content not included)... Normal [facility] ALLIED HEALTHon 04-29-2021 ALLIED HEALTH HNO ID: [id number] Author: Ana Watters RN Service: Healing Service [...] 29, 2021 TIME: 8:11 AM CONTACT #: [phone] Normal [facility] APTTon 04-29-2021 aPTT Coag (Bld) [Time] 26.4 s Normal 23.0-32.4 [facility] Comment on above: Result Comment: Unfr [...] laboratory APTT reagent in use throughout the [facility]. Performed By: #### C BC, MG1, PHOS, PTT, CMP, PT ####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 Last discharge within 30 days: No Advance Directive: Current Advance Directive: None Hand Trimmer Attempted to Assist with AD Completion: No [...] None Has the Patient Been in a Halfway Facility in the Past 30 days?: No SOCIAL: Living Arrangements: Home Lives With: Spouse Primary Contact: Extended Emergency Contact Information Primary Emergency Contact: LAURA PINEDA Address: [address] [place] [address] [facility] Mobile Relation: Spouse Supportive Patient Contact:: Yes Contact Resources: Family Family Name/Phone: LAURA PINEDA (Spouse) [phone] Caregiver AssessmentCaregiver is ready, willing and able [...] Mostly I feel financially burdened by my aew-kz-gctqpc expenses for my prescription medication:: 0 - Disagree Mostly Risk Score: 0 Patient is categorized as: Low risk < 2 Med Adherance Assessement not completed due to: No POMOLOGY TEACHER meds Are you interested in bedside delivery of your medications? Yes Is Patient Psychosocially Complex?: No ASSESSMENT AND PLAN: Medical Needs: Medical Needs: None Psychosocial Needs: Psychosocial Needs: None FREEDOM OF CHOICE EXPLAINED: Covel of Choice Given: No Reason Not Given: No placements necessary POTENTIAL TRANSITION PLANS No Services Indicated SIGNATURE: Rocio Bear RN MSN PATIENT NAME: Oscar Pineda DATE: April 29, 2021 TIME: 11:53 AM PAGER/CONTACT #: [phone] Normal [facility] CBCon 04-29-2021 Absolute nRBC <0.01 Normal <0.01 [facility] Comment on above: Performed By: #### C BC, MG1, PHOS, PTT, CMP, PT ####[facility] [address] [place], [place] [phone] Erythrocyte distribution width (RBC) [Ratio] 11.8 % Normal 11.5-15.0 [facility] Comment on above: Performed By: #### C BC, MG1, PHOS, PTT, CMP, PT ####[place] [address] [address] [phone] Hematocrit (Bld) [Volume fraction] 37.0 % Normal 36.0-46.0 [facility] Comment on above: Performed By: #### C BC, MG1, PHOS, PTT, CMP, PT ####[place] [address] [address] [phone] Hemoglobin (Bld) [Mass/Vol] 12.3 g/dL Normal 11.5-15.5 [facility] Comment on above: Performed By: #### C BC, MG1, PHOS, PTT, CMP, PT ####[place] [address] [address] [place] [phone] MCH 30.9 pG Normal 26.0-34.0 [facility] Comment on above: Performed By: #### C BC, MG1, PHOS, PTT, CMP, PT ####[place] [address] [address] [phone] MCHC (RBC) [Mass/Vol] 33.2 g/dL Normal 30.5-36.0 [facility] Comment on above: Performed By: #### C BC, MG1, PHOS, PTT, CMP, PT ####[place] [phone] MCV (RBC) [Entitic vol] 93.0 fL Normal 80.0-100.0 [facility] Comment on above: Performed By: #### C BC, MG1, PHOS, PTT, CMP, PT ####[place] [address] [address] [phone] Platelet mean volume (Bld) [Entitic vol] 10.0 fL Normal 9.0-12.7 [facility] Comment on above: Performed By: #### C BC, MG1, PHOS, PTT, CMP, PT ####[place] [address] [address], [place] [phone] Platelets (Bld) [#/Vol] 188 10*3/uL Normal 150-400 [facility] Comment on above: Performed By: #### C BC, MG1, PHOS, PTT, CMP, PT ####[address] [place], [place] [phone] RBC (Bld) [#/Vol] 3.98 10*6/uL Normal 3.90-5.20 [facility] Comment on above: Performed By: #### C BC, MG1, PHOS, PTT, CMP, PT ####[address] [place], [place] [phone] WBC (Bld) [#/Vol] 11.41 10*3/uL High 3.70-11.00 [facility] Comment on above: Performed By: #### C BC, MG1, PHOS, PTT, CMP, PT ####[address] [place], [place] [phone] Comp Metabolic Panelon 04-29 Albumin [Mass/Vol] 3.5 g/dL Low 3.9-4.9 [facility] Comment on above: Performed By: #### C BC, MG1, PHOS, PTT, CMP, PT ####[place] [address] [address] [place], [place] [phone] ALP [Catalytic activity/Vol] 43 U/L Normal 34-123 [facility] Comment on above: Performed By: #### C BC, MG1, PHOS, PTT, CMP, PT ####[address] [place], [place] [phone] ALT [Catalytic activity/Vol] 56 U/L High 7-38 [facility] Comment on above: Performed By: #### C BC, MG1, PHOS, PTT, CMP, PT ####[place] [address] [place], [place] [phone] Anion gap [Moles/Vol] 14 mmol/L Normal 9-18 [facility] Comment on above: Performed By: #### C BC, MG1, PHOS, PTT, CMP, PT ####[facility] [place], [place] [phone] AST [Catalytic activity/Vol] 171 U/L High 13-35 [facility] Comment on above: Performed By: #### C BC, MG1, PHOS, PTT, CMP, PT ####[place] [address] [place], [place] [phone] Bilirubin [Mass/Vol] 0.6 mg/dL Normal 0.2-1.3 [facility] Comment on above: Performed By: #### C BC, MG1, PHOS, PTT, CMP, PT ####[address] [phone] Calcium [Mass/Vol] 8.3 mg/dL Low 8.5-10.2 [facility] Comment on above: Performed By: #### C BC, MG1, PHOS, PTT, CMP, PT ####[facility], [place] [phone] Chloride [Moles/Vol] 100 mmol/L Normal 97-105 [facility] Comment on above: Performed By: #### C BC, MG1, PHOS, PTT, CMP, PT ####[facility] [place], [place] [phone] CO2 [Moles/Vol] 25 mmol/L Normal 22-30 [facility] Comment on above: Performed By: #### C BC, MG1, PHOS, PTT, CMP, PT ####[facility] [place], [place] [phone] Creatinine [Mass/Vol] 0.78 mg/dL Normal 0.58-0.96 [facility] Comment on above: Performed By: #### C BC, MG1, PHOS, PTT, CMP, PT ####[facility] [place], [place] [phone] eGFR- Amer. >60 Normal [facility] Comment on above: Performed By: #### C BC, MG1, PHOS, PTT, CMP, PT ####[facility] [place], [place] [phone] eGFR-All Other Races >60 Normal [facility] Comment on above: Result Comment: eGFR [...] C BC, MG1, PHOS, PTT, CMP, PT ####[facility] [place], [place] [phone] Glucose [Mass/Vol] 167 mg/dL High 74-99 [facility] Comment on above: Result Comment: The [place] Diabetes Association (ADA) provides guidance for cutoff [...] Standards of Medical Care in Diabetes 2016, [place] [employer] Association. Diabetes Care. 2016.39(Suppl 1). Performed By: #### C BC, MG1, PHOS, PTT, CMP, PT ####[place] [address] [address], [place] [phone] Potassium [Moles/Vol] 3.9 mmol/L Normal 3.7-5.1 [facility] Comment on above: Performed By: #### C BC, MG1, PHOS, PTT, CMP, PT ####[place] [address] [address], [place] [phone] Protein [Mass/Vol] 6.0 g/dL Low 6.3-8.0 [facility] Comment on above: Performed By: #### C BC, MG1, PHOS, PTT, CMP, PT ####[place] [address] [place], [place] [phone] Sodium [Moles/Vol] 139 mmol/L Normal 136-144 [facility] Comment on above: Performed By: #### C BC, MG1, PHOS, PTT, CMP, PT ####[address] [place], [place] [phone] Urea nitrogen [Mass/Vol] 9 mg/dL Normal 7-21 [facility] Comment on above: Performed By: #### C BC, MG1, PHOS, PTT, CMP, PT ####[place] [address] [address] [place], [place] [phone] GASV + ALLon 04-29-2021 Base Excess 4 mmol/L Normal [facility] Comment on above: Performed By: #### V ALLBG ####[place] [address] [address] [place], [place] [phone] Calcium [Moles/Vol] 1.15 mmol/L Normal 1.08-1.30 [facility] Comment on above: Performed By: #### V ALLBG ####[place] [address] [address], [place] [phone] Carboxyhemoglobin, Ziyad 1.2 % Normal <2.1 [facility] Comment on above: Performed By: #### V ALLBG ####[facility] [place] [phone] CO2 [Moles/Vol] 31 mmol/L High 25-29 [facility] Comment on above: Performed By: #### V ALLBG ####[place] [address] [address] [place] [phone] Glucose [Mass/Vol] 178 mg/dL High 60-105 [facility] Comment on above: Performed By: #### V ALLBG ####[place] [address] [address] [place] [phone] HCO3 (Bld) [Moles/Vol] 29 mmol/L High 24-28 [facility] Comment on above: Performed By: #### V ALLBG ####[place] [address] [address] [place] [phone] Lactate [Moles/Vol] 1.3 mmol/L Normal 0.5-2.2 [facility] Comment on above: Performed By: #### V ALLBG ####[place] [address] [address] [place] [phone] Methemoglobin 0.7 % Normal <1.6 [facility] Comment on above: Performed By: #### V ALLBG ####[place] [address] [address] [place] [phone] O2 Administered 40% Normal [facility] Comment on above: Performed By: #### V ALLBG ####[place] [address] [place] [phone] pCO2 51 mm Hg Normal 42-55 [facility] Comment on above: Performed By: #### V ALLBG ####[place] [address] [address] [phone] pCO2, Temp Correct 51 mm Hg Normal 42-55 [facility] Comment on above: Performed By: #### V ALLBG ####[facility], [place] [phone] Potassium [Moles/Vol] 4.0 mmol/L Normal 3.5-5.0 [facility] Comment on above: Performed By: #### V ALLBG ####[place] [address] [address], [place] [phone] Base Excess 3 mmol/L Normal [facility] Comment on above: Performed By: #### V ALLBG ####[place] [address] [address], [place] [phone] Blood Gas Comm, Ziyad . Normal [facility] Comment on above: Performed By: #### V ALLBG ####[place] [address] [address] [place], [place] [phone] Body temperature 98.6 [degF] Normal [facility] Comment on above: Performed By: #### V ALLBG ####[place] [address] [place], [place] [phone] Calcium [Moles/Vol] 1.18 mmol/L Normal 1.08-1.30 [facility] Comment on above: Performed By: #### V ALLBG ####[place] [address] [address] [place], [place] [phone] Carboxyhemoglobin, Ziyad 0.9 % Normal <2.1 [facility] Comment on above: Performed By: #### V ALLBG ####[place] [address], [place] [phone] CO2 [Moles/Vol] 30 mmol/L High 25-29 [facility] Comment on above: Performed By: #### V ALLBG ####[place] [address], [place] [phone] Glucose [Mass/Vol] 193 mg/dL High 60-105 [facility] Comment on above: Performed By: #### V ALLBG ####[place] [address], [place] [phone] HCO3 (Bld) [Moles/Vol] 28 mmol/L Normal 24-28 [facility] Comment on above: Performed By: #### V ALLBG ####[place] [address], [place] [phone] Hematocrit (Bld) [Volume fraction] 39.0 % Normal 36.0-46.0 [facility] Comment on above: Performed By: #### V ALLBG ####[place] [address] [address] [phone] Hemoglobin (Bld) [Mass/Vol] 12.7 g/dL Normal 11.5-15.5 [facility] Comment on above: Performed By: #### V ALLBG ####[place] [address] [phone] Lactate [Moles/Vol] 1.6 mmol/L Normal 0.5-2.2 [facility] Comment on above: Performed By: #### V ALLBG ####[place] [address] [address] [phone] Methemoglobin 1.0 % Normal <1.6 [facility] Comment on above: Performed By: #### V ALLBG ####[place] [address] [address] [phone] O2 Administered 30% Normal [facility] Comment on above: Performed By: #### V ALLBG ####[facility] [place] [phone] Oxyhemoglobin, Ziyad. 78 % Normal 60-85 [facility] Comment on above: Performed By: #### V ALLBG ####[place] [address], [place] [phone] pCO2 49 mm Hg Normal 42-55 [facility] Comment on above: Performed By: #### V ALLBG ####[place] [address] [place], [place] [phone] pCO2, Temp Correct 49 mm Hg Normal 42-55 [facility] Comment on above: Performed By: #### V ALLBG ####[place] [address] [place], [place] [phone] pH (Bld) 7.38 [pH] Normal 7.32-7.42 [facility] Comment on above: Performed By: #### V ALLBG ####[place] [address], [place] [phone] pH, Temp Corrected 7.38 Normal 7.32-7.42 [facility] Comment on above: Performed By: #### V ALLBG ####[place] [address], [place] [phone] pO2 46 mm Hg High 35-45 [facility] Comment on above: Performed By: #### V ALLBG ####[place] [address] [address], [place] [phone] pO2, Temp Corrected 46 mm Hg High 35-45 [facility] Comment on above: Performed By: #### V ALLBG ####[place] [address] [place], [place] [phone] Potassium [Moles/Vol] 4.3 mmol/L Normal 3.5-5.0 [facility] Comment on above: Performed By: #### V ALLBG ####[place] [address] [place], [place] [phone] Sodium [Moles/Vol] 141 mmol/L Normal 136-144 [facility] Comment on above: Performed By: #### V ALLBG ####[address] [phone] Magnesiumon 04-29-2021 Magnesium [Mass/Vol] 1.8 mg/dL Normal 1.7-2.3 [facility] Comment on above: Performed By: #### C BC, MG1, PHOS, PTT, CMP, PT ####[facility] [address] [place], [place] [phone] NURSING PROGon 04-29-2021 NURSING PROG HNO ID: [id number] Author: Magda Rose RN Service: ? Author Type: Registered Nurse Type: Nursing Progress Note Filed: 04/29/2021 7:45 AM Note Text: Nursing Progress: Topic: RESTRAINT NON-VIOLENT PATIENT NAME: Oscar Pineda PATIENT LOCATION: [place] [address] The patient demonstrates Attempting to Remove Medical [...] TIME: 7:44 AM Diane Rose RN Normal [facility] Phosphoruson 04-29-2021 Phosphate [Mass/Vol] 3.2 mg/dL Normal 2.7-4.8 [facility] Comment on above: Performed By: #### C BC, MG1, PHOS, PTT, CMP, PT ####[facility] [address] [place], [place] [phone] Protimeon 04-29-2021 PT INR 1.0 Normal 0.9-1.3 [facility] Comment on above: Result Comment: Neha min K Antagonist (VKA) Therapeutic Range: INR 2 to 3 (Target INR of 2.5) Note: For patients treated with VKA drugs, such as warfarin, the [place] [employer] 2012 Guideline recommends [...] Chest 2012, 141:7S-47S Daphne RA, et al. [facility] 2017, 70: 252-289 Performed By: #### C BC, MG1, PHOS, PTT, CMP, PT ####[facility] [place], [place] [phone] PT Sec 11.0 sec Normal 9.7-13.0 [facility] Comment on above: Performed By: #### C BC, MG1, PHOS, PTT, CMP, PT ####[facility] [address] [place], [place] [phone] THERAPY NTon 04-29-2021 THERAPY NT HNO ID: [id number] Author: Neela Prasad, PT Service: Physical Therapy Author Type: Physical Therapist Type: Therapy (PT/OT/Speech/Resp) Filed: 04/29/2021 10:05 AM Note Text: Physical Therapy Evaluation SERVICE DATE: 04/29/2021 SERVICE TIME: 907 to 945 ROOM: [place] [address] Recommended Discharge Disposition: Home Recommended Discharge Disposition [...] length decreased;Non-functiona l gait speed [facility]: 7: Walk 25 feet or more [...] Diagnosis: Reduced mobility-other Interventions Provided: Evaluation;Gait Training (32777);Therapeutic Activity (35263) $ Evaluation-Moderate (08548) Billed Units: 1 unit Therapeutic Activity (56619) Treatment Minutes: 8 $ Therapeutic Activity (88351) Billed Units: 1 unit Gait Training (71945) Treatment Minutes: 15 $ Gait Training (84263) Billed Units: 1 unit Training AND education provided in: Bed mobility, Benefits of in-hospital mobility, Discharge planning, Energy conservation, Expected functional level, Gait pattern, reduction of deviations, Positioning, Precautions/restriction s, Role of Physical Therapy, Sitting balance, Standing balance, Transfers, Treatment protocol, Equipment, Assistive device use The following therapeutic skills were used: Activity dosing, Assessment of tolerance includi (more content not included)... Normal [facility] Type and Screenon 04-29-2021 ABO/RH(D) Positive Normal [facility] Comment on above: Performed By: #### T SCR ####[facility] [address] [place], [place] [phone] APTTon 04-28-2021 aPTT Coag (Bld) [Time] 26.6 s Normal 23.0-32.4 [facility] Comment on above: Result Comment: Unfr [...] laboratory APTT reagent in use throughout the [facility]. Performed By: #### P T, PTT, TRIG, CMP, CBC, MG1, PHOS ####[facility], [place] [phone] Blood Cultureon 04-28-2021 Bacteria identified Cx Nom (Bld) Culture Result - No growth 5 days Normal [facility] Comment on above: Performed By: #### B LCUL ####[place] [address] [address] [place] [phone] Bacteria identified Cx Nom (Bld) Culture Result - No growth 5 days Normal [facility] Comment on above: Performed By: #### B LCUL ####[place] [address] [phone] CBCon 04-28-2021 Absolute nRBC <0.01 Normal <0.01 [facility] Comment on above: Performed By: #### P T, PTT, TRIG, CMP, CBC, MG1, PHOS ####[place] [address] [phone] Erythrocyte distribution width (RBC) [Ratio] 12.4 % Normal 11.5-15.0 [facility] Comment on above: Performed By: #### P T, PTT, TRIG, CMP, CBC, MG1, PHOS ####[place] [address] [address] [place] [phone] Hematocrit (Bld) [Volume fraction] 36.1 % Normal 36.0-46.0 [facility] Comment on above: Performed By: #### P T, PTT, TRIG, CMP, CBC, MG1, PHOS ####[place] [address] [phone] Hemoglobin (Bld) [Mass/Vol] 11.8 g/dL Normal 11.5-15.5 [facility] Comment on above: Performed By: #### P T, PTT, TRIG, CMP, CBC, MG1, PHOS ####[place] [address], [place] [phone] MCH 30.9 pG Normal 26.0-34.0 [facility] Comment on above: Performed By: #### P T, PTT, TRIG, CMP, CBC, MG1, PHOS ####[place] [address], [place] [phone] MCHC (RBC) [Mass/Vol] 32.7 g/dL Normal 30.5-36.0 [facility] Comment on above: Performed By: #### P T, PTT, TRIG, CMP, CBC, MG1, PHOS ####[address], [place] [phone] MCV (RBC) [Entitic vol] 94.5 fL Normal 80.0-100.0 [facility] Comment on above: Performed By: #### P T, PTT, TRIG, CMP, CBC, MG1, PHOS ####[address] [phone] Platelet mean volume (Bld) [Entitic vol] 9.8 fL Normal 9.0-12.7 [facility] Comment on above: Performed By: #### P T, PTT, TRIG, CMP, CBC, MG1, PHOS ####[address] [place], [place] [phone] Platelets (Bld) [#/Vol] 178 10*3/uL Normal 150-400 [facility] Comment on above: Performed By: #### P T, PTT, TRIG, CMP, CBC, MG1, PHOS ####[address] [place], [place] [phone] RBC (Bld) [#/Vol] 3.82 10*6/uL Low 3.90-5.20 [facility] Comment on above: Performed By: #### P T, PTT, TRIG, CMP, CBC, MG1, PHOS ####[place] [address], [place] [phone] WBC (Bld) [#/Vol] 11.29 10*3/uL High 3.70-11.00 [facility] Comment on above: Performed By: #### P T, PTT, TRIG, CMP, CBC, MG1, PHOS ####[facility] [address] [place], [place] [phone] CT ABD/PEL W IVCONon 021 CT ABD/PEL W IVCON * * *Final Report* * * DATE OF EXAM: Apr 28 2021 2:10PM [facility] 0530 - CT ABD/PEL [...] chest CT performed will be reported separately. Optical Mechanic (topogram) images: No additional findings. IMPRESSION: Resolution of intravenous gas within the abdomen and pelvis. 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 Motorcoach Operator: PSCB Transcribe Date/Time: Apr 28 2021 2:50P Dictated by : KASHMIR RIVERA MD This examination was interpreted and the report reviewed and electronically signed by: ELIAS WOODY MD on Apr 28 2021 4:13PM EST [id number] Normal [facility] CT CHEST W IVCONon CT CHEST W IVCON * * *Final Report* * * DATE OF EXAM: Apr 28 2021 2:10PM [facility] [facility] 0539 - CT CHEST [...] There is minimal intrahepatic biliary ductal dilation. Optical Mechanic (topogram) images: No additional findings. IMPRESSION: 1. No CT evidence of air embolism within the systemic veins, right-sided heart chambers, central pulmonary arteries and hepatic veins. 2. Posterior complete LEFT lower lobe, partially dependent RIGHT lower lobe and dependent LEFT upper lobe atelectasis. Given the distribution, this finding may be related to aspiration. Trace bilateral pleural effusions. Motorcoach Operator: ANEL Transcribe Date/Time: Apr 28 2021 3:35P Dictated by : MICHELLE PETERSEN MD This examination was interpreted and the report reviewed and electronically signed by: MICHELLE PETERSEN MD on Apr 28 2021 3:45PM EST [id number] Normal [facility] Comp Metabolic Panelon 04-28 Albumin [Mass/Vol] 3.0 g/dL Low 3.9-4.9 [facility] Comment on above: Performed By: #### P T, PTT, TRIG, CMP, CBC, MG1, PHOS ####[facility], [place] [phone] ALP [Catalytic activity/Vol] 36 U/L Normal 34-123 [facility] Comment on above: Performed By: #### P T, PTT, TRIG, CMP, CBC, MG1, PHOS ####[facility], [place] [phone] ALT [Catalytic activity/Vol] 32 U/L Normal 7-38 [facility] Comment on above: Performed By: #### P T, PTT, TRIG, CMP, CBC, MG1, PHOS ####[facility], [place] [phone] Anion gap [Moles/Vol] 10 mmol/L Normal 9-18 [facility] Comment on above: Performed By: #### P T, PTT, TRIG, CMP, CBC, MG1, PHOS ####[place] [address] [address], [place] [phone] AST [Catalytic activity/Vol] 102 U/L High 13-35 [facility] Comment on above: Performed By: #### P T, PTT, TRIG, CMP, CBC, MG1, PHOS ####[place] [address] [address], [place] [phone] Bilirubin [Mass/Vol] 0.3 mg/dL Normal 0.2-1.3 [facility] Comment on above: Performed By: #### P T, PTT, TRIG, CMP, CBC, MG1, PHOS ####[address] [phone] Calcium [Mass/Vol] 7.9 mg/dL Low 8.5-10.2 [facility] Comment on above: Performed By: #### P T, PTT, TRIG, CMP, CBC, MG1, PHOS ####[place] [address] [address], [place] [phone] Chloride [Moles/Vol] 107 mmol/L High 97-105 [facility] Comment on above: Performed By: #### P T, PTT, TRIG, CMP, CBC, MG1, PHOS ####[place] [address] [address], [place] [phone] CO2 [Moles/Vol] 25 mmol/L Normal 22-30 [facility] Comment on above: Performed By: #### P T, PTT, TRIG, CMP, CBC, MG1, PHOS ####[place] [address] [address], [place] [phone] Creatinine [Mass/Vol] 0.85 mg/dL Normal 0.58-0.96 [facility] Comment on above: Performed By: #### P T, PTT, TRIG, CMP, CBC, MG1, PHOS ####[place] [address] [place], [place] [phone] eGFR- Amer. >60 Normal [facility] Comment on above: Performed By: #### P T, PTT, TRIG, CMP, CBC, MG1, PHOS ####[address] [phone] eGFR-All Other Races >60 Normal [facility] Comment on above: Result Comment: eGFR [...] T, PTT, TRIG, CMP, CBC, MG1, PHOS ####[place] [address] [place], [place] [phone] Glucose [Mass/Vol] 86 mg/dL Normal 74-99 [facility] Comment on above: Result Comment: The [place] Diabetes Association (ADA) provides guidance for cutoff [...] Standards of Medical Care in Diabetes 2016, [place] [employer]. Diabetes Care. 2016.39(Suppl 1). Performed By: #### P T, PTT, TRIG, CMP, CBC, MG1, PHOS ####[address] [phone] Potassium [Moles/Vol] 3.8 mmol/L Normal 3.7-5.1 [facility] Comment on above: Performed By: #### P T, PTT, TRIG, CMP, CBC, MG1, PHOS ####[place] [phone] Protein [Mass/Vol] 5.2 g/dL Low 6.3-8.0 [facility] Comment on above: Performed By: #### P T, PTT, TRIG, CMP, CBC, MG1, PHOS ####[address] [phone] Sodium [Moles/Vol] 142 mmol/L Normal 136-144 [facility] Comment on above: Performed By: #### P T, PTT, TRIG, CMP, CBC, MG1, PHOS ####[place] [phone] Urea nitrogen [Mass/Vol] 15 mg/dL Normal 7-21 [facility] Comment on above: Performed By: #### P T, PTT, TRIG, CMP, CBC, MG1, PHOS ####[place] [phone] GASV + ALLon 04-28-2021 Base Excess 2 mmol/L Normal [facility] Comment on above: Performed By: #### V ALLBG ####[address] [phone] Blood Gas Comm, Ziyad . Normal [facility] Comment on above: Performed By: #### V ALLBG ####[address] [phone] Body temperature 98.6 [degF] Normal [facility] Comment on above: Performed By: #### V ALLBG ####[place] [address] [address], [place] [phone] Calcium [Moles/Vol] 1.18 mmol/L Normal 1.08-1.30 [facility] Comment on above: Performed By: #### V ALLBG ####[place] [address] [address], [place] [phone] Carboxyhemoglobin, Ziyad 0.7 % Normal <2.1 [facility] Comment on above: Performed By: #### V ALLBG ####[place] [address] [address], [place] [phone] CO2 [Moles/Vol] 30 mmol/L High 25-29 [facility] Comment on above: Performed By: #### V ALLBG ####[place] [address] [address] [place] [phone] Glucose [Mass/Vol] 90 mg/dL Normal 60-105 [facility] Comment on above: Performed By: #### V ALLBG ####[place] [address] [address], [place] [phone] HCO3 (Bld) [Moles/Vol] 29 mmol/L High 24-28 [facility] Comment on above: Performed By: #### V ALLBG ####[place] [address] [address], [place] [phone] Hematocrit (Bld) [Volume fraction] 37.7 % Normal 36.0-46.0 [facility] Comment on above: Performed By: #### V ALLBG ####[place] [address] [address], [place] [phone] Hemoglobin (Bld) [Mass/Vol] 12.3 g/dL Normal 11.5-15.5 [facility] Comment on above: Performed By: #### V ALLBG ####[place] [address] [address] [place] [phone] Lactate [Moles/Vol] 0.9 mmol/L Normal 0.5-2.2 [facility] Comment on above: Performed By: #### V ALLBG ####[place] [address] [address] [place] [phone] Methemoglobin 1.5 % Normal <1.6 [facility] Comment on above: Performed By: #### V ALLBG ####[place] [address] [address] [place] [phone] O2 Administered 100% Normal [facility] Comment on above: Performed By: #### V ALLBG ####[place] [phone] Oxyhemoglobin, Ziyad. 83 % Normal 60-85 [facility] Comment on above: Performed By: #### V ALLBG ####[place] [address] [address] [place] [phone] pCO2 57 mm Hg High 42-55 [facility] Comment on above: Performed By: #### V ALLBG ####[place] [address] [address] [place] [phone] pCO2, Temp Correct 57 mm Hg High 42-55 [facility] Comment on above: Performed By: #### V ALLBG ####[place] [address] [address] [place] [phone] pH (Bld) 7.32 [pH] Normal 7.32-7.42 [facility] Comment on above: Performed By: #### V ALLBG ####[place] [address] [address] [place] [phone] pH, Temp Corrected 7.32 Normal 7.32-7.42 [facility] Comment on above: Performed By: #### V ALLBG ####[place] [address] [address] [phone] pO2 54 mm Hg High 35-45 [facility] Comment on above: Performed By: #### V ALLBG ####[address] [phone] pO2, Temp Corrected 54 mm Hg High 35-45 [facility] Comment on above: Performed By: #### V ALLBG ####[address] [phone] Potassium [Moles/Vol] 3.8 mmol/L Normal 3.5-5.0 [facility] Comment on above: Performed By: #### V ALLBG ####[address] [phone] Sodium [Moles/Vol] 142 mmol/L Normal 136-144 [facility] Comment on above: Performed By: #### V ALLBG ####[address] [phone] Magnesiumon 04-28-2021 Magnesium [Mass/Vol] 2.0 mg/dL Normal 1.7-2.3 [facility] Comment on above: Performed By: #### P T, PTT, TRIG, CMP, CBC, MG1, PHOS ####[facility] [place] [address] [phone] NURSING PROGon 04-28-2021 NURSING PROG HNO ID: [id number] Author: Laura Mullins RN Service: ? Author Type: Registered Nurse Type: Nursing Progress Note Filed: 04/28/2021 8:01 PM Note Text: Nursing Progress: Topic: RESTRAINT NON-VIOLENT PATIENT NAME: Oscar Pineda PATIENT LOCATION: [place] [address] The patient demonstrates Attempting to Remove Medical [...] 2021 TIME: 8:01 PM Laura Mullins RN [facility] NURSING PROG HNO ID: [id number] Author: Rob Guerra RN Service: Radiology Author [...] DATE: April 28, 2021 TIME: 2:08 PM [facility] NURSING PROG HNO ID: [id number] Author: Yumiko Molina RN Service: ? Author Type: Registered Nurse Type: Nursing Progress Note Filed: 04/28/2021 2:57 PM Note Text: Nursing Progress Note Patient Name: Oscar Pineda Patient Location: [place] [address] 1200 IR at bedside, advised transfer to CT table while still in trendelenburg trial patient supine, still in trendelenburg. Tolerating [address], notified of positioning requirements 1345 [employer]OCIATE, resident, two RT's, and two RN's at bedside for transport. Pt on telemetry/ continuous monitoring. CT and IR LIP notified. [address] imaging table, trendelenburg positioning maintained [address] and gave verbal OK to transition HOB flat then elevated (as tolerated) 1420 patient in SICU, HOB flat. Tolerating This note was completed by: Yumiko Molina [facility] NURSING PROG HNO ID: [id number] Author: Yumiko Molina RN Service: ? Author Type: Registered Nurse Type: Nursing Progress Note Filed: 04/28/2021 1:22 PM Note Text: Nursing Progress: Topic: RESTRAINT NON-VIOLENT PATIENT NAME: Oscar Pineda PATIENT LOCATION: [place] [address] The patient demonstrates Attempting to Remove Medical Devices Vital to Medical Stability as evidenced by the following behaviors attempting to remove medical typist which pose an imminent danger to self [...] 2021 TIME: 8:00AM Yumiko Molina RN Normal [facility] Phosphoruson 04-28-2021 Phosphate [Mass/Vol] 2.3 mg/dL Low 2.7-4.8 [facility] Comment on above: Performed By: #### P T, PTT, TRIG, CMP, CBC, MG1, PHOS ####[facility], [place] [phone] Protimeon 04-28-2021 PT INR 1.0 Normal 0.9-1.3 [facility] Comment on above: Result Comment: Neha min K Antagonist (VKA) Therapeutic Range: INR 2 to 3 (Target INR of 2.5) Note: For patients treated with VKA drugs, such as warfarin, the [place] [employer] 2012 Guideline recommends [...] PRIETO, et al. Chest 2012, 141:7S-47S Daphne PEDERSON et al. [facility] 2017, 70: 252-289 Performed By: #### P T, PTT, TRIG, CMP, CBC, MG1, PHOS ####[facility], [place] [phone] PT Sec 11.0 sec Normal 9.7-13.0 [facility] Comment on above: Performed By: #### P T, PTT, TRIG, CMP, CBC, MG1, PHOS ####[facility], [place] [phone] Respiratory Cult/Stainon Respiratory Cult/Stain Sp. Request/Comment: - Specimen received in sterile container. Smear Result - Rare Mixed oral kaylynn Many Polymorphonuclear leukocytes Rare Epithelial cells Culture Result - Few Staphylococcus aureus --> ABNORMAL ALERT Insignificant colony count. No further workup. --> ABNORMAL ALERT Few Normal respiratory kaylynn present Critically abnormal [facility] Comment on above: Performed By: #### R CULST ####[address] [phone] Triglycerideon 04-28-2021 Fasting Time Unknown Normal [facility] Comment on above: Performed By: #### P T, PTT, TRIG, CMP, CBC, MG1, PHOS ####[place] [address] [place], [place] [phone] Triglyceride [Mass/Vol] 155 mg/dL High <150 [facility] Comment on above: Result Comment: <150 mg/dL, Normal 150-199 mg/dL, Borderline high 200-499 mg/dL, High >499 mg/dL, Very high Reference: 1. National Cholesterol Education Program ATP III Guideline At-A-Glance Quick Desk Reference: National Heart, Lung, and Blood [place]. National Institutes of Health. 2001: NIH Publication No. 01-3305. Performed By: #### P T, PTT, TRIG, CMP, CBC, MG1, PHOS ####[place] [address] [place], [place] [phone] Urinalysison 04-28-2021 Bilirubin, Urine Negative Normal Negative [facility] Comment on above: Performed By: #### U A ####[place] [address] [address] [place] [phone] Clarity (U) Clear Normal Clear [facility] Comment on above: Performed By: #### U A ####[place] [phone] Color (U) Light Yellow Critically abnormal Yellow [facility] Comment on above: Performed By: #### U A ####[place] [phone] Comments SEE COMMENT Normal [facility] Comment on above: Result Comment: Micr oscopic not warranted Performed By: #### U A ####[place] [phone] Glucose Ql (U) Negative Normal Negative [facility] Comment on above: Performed By: #### U A ####[place] [phone] Hemoglobin/Blood,U r Negative Normal Negative [facility] Comment on above: Performed By: #### U A ####[place] [phone] Ketones Ql (U) 1+ Critically abnormal Negative [facility] Comment on above: Performed By: #### U A ####[place] [phone] Leukest Negative Normal Negative [facility] Comment on above: Performed By: #### U A ####[place] [phone] Nitrite Ql (U) Negative Normal Negative [facility] Comment on above: Performed By: #### U A ####[place] [phone] pH (U) 5.0 [pH] Normal 5.0-8.0 [facility] Comment on above: Performed By: #### U A ####[place] [address], [place] [phone] Protein, Urine Negative Normal Negative [facility] Comment on above: Performed By: #### U A ####[place] [address] [place], [place] [phone] Specific [place], Ur 1.023 Normal 1.005-1.030 [facility] Comment on above: Performed By: #### U A ####[place] [address] [address], [place] [phone] Urine Karl Comment SEE COMMENT Normal [facility] Comment on above: Result Comment: N/A Performed By: #### U A ####[place] [address] [address], [place] [phone] Urobilinogen (U) [Mass/Vol] Negative Normal Negative [facility] Comment on above: Performed By: #### U A ####[place] [address] [address], [place] [phone] APTTon 04-27-2021 aPTT Coag (Bld) [Time] 21.9 s Low 23.0-32.4 [facility] Comment on above: Result Comment: Unfr [...] laboratory APTT reagent in use throughout the [facility]. Performed By: #### P HOS, CMP, PTT, CBC, MG1, PT ####[facility], [place] [phone] CBCon 04-27-2021 Absolute nRBC <0.01 Normal <0.01 [facility] Comment on above: Performed By: #### P HOS, CMP, PTT, CBC, MG1, PT ####[place] [address] [address] [place] [phone] Erythrocyte distribution width (RBC) [Ratio] 11.9 % Normal 11.5-15.0 [facility] Comment on above: Performed By: #### P HOS, CMP, PTT, CBC, MG1, PT ####[address] [place] [phone] Hematocrit (Bld) [Volume fraction] 39.3 % Normal 36.0-46.0 [facility] Comment on above: Performed By: #### P HOS, CMP, PTT, CBC, MG1, PT ####[place] [phone] Hemoglobin (Bld) [Mass/Vol] 13.3 g/dL Normal 11.5-15.5 [facility] Comment on above: Performed By: #### P HOS, CMP, PTT, CBC, MG1, PT ####[place] [phone] MCH 31.0 pG Normal 26.0-34.0 [facility] Comment on above: Performed By: #### P HOS, CMP, PTT, CBC, MG1, PT ####[place] [phone] MCHC (RBC) [Mass/Vol] 33.8 g/dL Normal 30.5-36.0 [facility] Comment on above: Performed By: #### P HOS, CMP, PTT, CBC, MG1, PT ####[address] [phone] MCV (RBC) [Entitic vol] 91.6 fL Normal 80.0-100.0 [facility] Comment on above: Performed By: #### P HOS, CMP, PTT, CBC, MG1, PT ####[place] [address] [address], [place] [phone] Platelet mean volume (Bld) [Entitic vol] 9.8 fL Normal 9.0-12.7 [facility] Comment on above: Performed By: #### P HOS, CMP, PTT, CBC, MG1, PT ####[address], [place] [phone] Platelets (Bld) [#/Vol] 242 10*3/uL Normal 150-400 [facility] Comment on above: Performed By: #### P HOS, CMP, PTT, CBC, MG1, PT ####[address], [place] [phone] RBC (Bld) [#/Vol] 4.29 10*6/uL Normal 3.90-5.20 [facility] Comment on above: Performed By: #### P HOS, CMP, PTT, CBC, MG1, PT ####[address] [phone] WBC (Bld) [#/Vol] 17.39 10*3/uL High 3.70-11.00 [facility] Comment on above: Performed By: #### P HOS, CMP, PTT, CBC, MG1, PT ####[address] [phone] Comp Metabolic Panelon 04-27 Albumin [Mass/Vol] 3.9 g/dL Normal 3.9-4.9 [facility] Comment on above: Performed By: #### P HOS, CMP, PTT, CBC, MG1, PT ####[address], [place] [phone] ALP [Catalytic activity/Vol] 41 U/L Normal 34-123 [facility] Comment on above: Performed By: #### P HOS, CMP, PTT, CBC, MG1, PT ####[place] [address] [address], [place] [phone] ALT [Catalytic activity/Vol] 26 U/L Normal 7-38 [facility] Comment on above: Performed By: #### P HOS, CMP, PTT, CBC, MG1, PT ####[facility], [place] [phone] Anion gap [Moles/Vol] 10 mmol/L Normal 9-18 [facility] Comment on above: Performed By: #### P HOS, CMP, PTT, CBC, MG1, PT ####[place] [address] [address], [place] [phone] AST [Catalytic activity/Vol] 63 U/L High 13-35 [facility] Comment on above: Performed By: #### P HOS, CMP, PTT, CBC, MG1, PT ####[place] [address] [address], [place] [phone] Bilirubin [Mass/Vol] 0.5 mg/dL Normal 0.2-1.3 [facility] Comment on above: Performed By: #### P HOS, CMP, PTT, CBC, MG1, PT ####[place] [address] [address], [place] [phone] Calcium [Mass/Vol] 8.6 mg/dL Normal 8.5-10.2 [facility] Comment on above: Performed By: #### P HOS, CMP, PTT, CBC, MG1, PT ####[place] [address] [address], [place] [phone] Chloride [Moles/Vol] 109 mmol/L High 97-105 [facility] Comment on above: Performed By: #### P HOS, CMP, PTT, CBC, MG1, PT ####[facility], [place] [phone] CO2 [Moles/Vol] 23 mmol/L Normal 22-30 [facility] Comment on above: Performed By: #### P HOS, CMP, PTT, CBC, MG1, PT ####[facility] [place] [address] [phone] Creatinine [Mass/Vol] 0.76 mg/dL Normal 0.58-0.96 [facility] Comment on above: Performed By: #### P HOS, CMP, PTT, CBC, MG1, PT ####[place] [phone] eGFR- Amer. >60 Normal [facility] Comment on above: Performed By: #### P HOS, CMP, PTT, CBC, MG1, PT ####[place] [phone] eGFR-All Other Races >60 Normal [facility] Comment on above: Result Comment: eGFR [...] P HOS, CMP, PTT, CBC, MG1, PT ####[place] [phone] Glucose [Mass/Vol] 119 mg/dL High 74-99 [facility] Comment on above: Result Comment: The [place] Diabetes Association (ADA) provides guidance for cutoff [...] Standards of Medical Care in Diabetes 2016, [place] [employer]. Diabetes Care. 2016.39(Suppl 1). Performed By: #### P HOS, CMP, PTT, CBC, MG1, PT ####[address] [phone] Potassium [Moles/Vol] 4.0 mmol/L Normal 3.7-5.1 [facility] Comment on above: Performed By: #### P HOS, CMP, PTT, CBC, MG1, PT ####[address] [phone] Protein [Mass/Vol] 5.9 g/dL Low 6.3-8.0 [facility] Comment on above: Performed By: #### P HOS, CMP, PTT, CBC, MG1, PT ####[address] [phone] Sodium [Moles/Vol] 142 mmol/L Normal 136-144 [facility] Comment on above: Performed By: #### P HOS, CMP, PTT, CBC, MG1, PT ####[address] [phone] Urea nitrogen [Mass/Vol] 13 mg/dL Normal 7-21 [facility] Comment on above: Performed By: #### P HOS, CMP, PTT, CBC, MG1, PT ####[address] [phone] GASV + ALLon 04-27-2021 Base Excess 1 mmol/L Normal [facility] Comment on above: Performed By: #### V ALLBG ####[address] [phone] Blood Gas Comm, Ziyad . Normal [facility] Comment on above: Performed By: #### V ALLBG ####[place] [address], [place] [phone] Body temperature 98.6 [degF] Normal [facility] Comment on above: Performed By: #### V ALLBG ####[place] [address] [address], [place] [phone] Calcium [Moles/Vol] 1.21 mmol/L Normal 1.08-1.30 [facility] Comment on above: Performed By: #### V ALLBG ####[place] [address] [address] [place] [phone] Carboxyhemoglobin, Ziyad 0.7 % Normal <2.1 [facility] Comment on above: Performed By: #### V ALLBG ####[place] [address] [address] [place] [phone] CO2 [Moles/Vol] 29 mmol/L Normal 25-29 [facility] Comment on above: Performed By: #### V ALLBG ####[place] [address] [address] [phone] Glucose [Mass/Vol] 97 mg/dL Normal 60-105 [facility] Comment on above: Performed By: #### V ALLBG ####[place] [address] [address], [place] [phone] HCO3 (Bld) [Moles/Vol] 27 mmol/L Normal 24-28 [facility] Comment on above: Performed By: #### V ALLBG ####[place] [address] [address], [place] [phone] Hematocrit (Bld) [Volume fraction] 38.2 % Normal 36.0-46.0 [facility] Comment on above: Performed By: #### V ALLBG ####[place] [address] [address], [place] [phone] Hemoglobin (Bld) [Mass/Vol] 12.4 g/dL Normal 11.5-15.5 [facility] Comment on above: Performed By: #### V ALLBG ####[place] [address] [address] [place] [phone] Lactate [Moles/Vol] 1.1 mmol/L Normal 0.5-2.2 [facility] Comment on above: Performed By: #### V ALLBG ####[place] [address] [address] [phone] Methemoglobin 0.7 % Normal <1.6 [facility] Comment on above: Performed By: #### V ALLBG ####[place] [address] [address] [place] [phone] O2 Administered 100% Normal [facility] Comment on above: Performed By: #### V ALLBG ####[place] [phone] Oxyhemoglobin, Ziyad. 92 % High 60-85 [facility] Comment on above: Performed By: #### V ALLBG ####[place] [address] [address] [place] [phone] pCO2 53 mm Hg Normal 42-55 [facility] Comment on above: Performed By: #### V ALLBG ####[place] [address] [address] [place] [phone] pCO2, Temp Correct 53 mm Hg Normal 42-55 [facility] Comment on above: Performed By: #### V ALLBG ####[place] [address] [address] [place] [phone] pH (Bld) 7.33 [pH] Normal 7.32-7.42 [facility] Comment on above: Performed By: #### V ALLBG ####[place] [address] [address] [place] [phone] pH, Temp Corrected 7.33 Normal 7.32-7.42 [facility] Comment on above: Performed By: #### V ALLBG ####[facility]CE[address], [place] [phone] pO2 70 mm Hg High 35-45 [facility] Comment on above: Performed By: #### V ALLBG ####[facility]CElm[address], [place] [phone] pO2, Temp Corrected 70 mm Hg High 35-45 [facility] Comment on above: Performed By: #### V ALLBG ####[place] [address] AveCTraci [place] [phone] Potassium [Moles/Vol] 3.9 mmol/L Normal 3.5-5.0 [facility] Comment on above: Performed By: #### V ALLBG ####[place] [address] [address] [phone] Sodium [Moles/Vol] 143 mmol/L Normal 136-144 [facility] Comment on above: Performed By: #### V ALLBG ####[place] [address] AveCTraci [place] [phone] Base Excess 0 mmol/L Normal [facility] Comment on above: Performed By: #### V ALLBG ####[facility]CElm[address], [place] [phone] Blood Gas Comm, Ziyad . Normal [facility] Comment on above: Performed By: #### V ALLBG ####[facility]CElm[address], [place] [phone] Body temperature 98.6 [degF] Normal [facility] Comment on above: Performed By: #### V ALLBG ####[facility], [place] [phone] Calcium [Moles/Vol] 1.22 mmol/L Normal 1.08-1.30 [facility] Comment on above: Performed By: #### V ALLBG ####[facility]CElm[address], [place] [phone] Carboxyhemoglobin, Ziyad 0.6 % Normal <2.1 [facility] Comment on above: Performed By: #### V ALLBG ####[place] [address] [address] [phone] CO2 [Moles/Vol] 27 mmol/L Normal 25-29 [facility] Comment on above: Performed By: #### V ALLBG ####[place] [address] [address] [phone] Glucose [Mass/Vol] 130 mg/dL High 60-105 [facility] Comment on above: Performed By: #### V ALLBG ####[place] [address] [address] [phone] HCO3 (Bld) [Moles/Vol] 26 mmol/L Normal 24-28 [facility] Comment on above: Performed By: #### V ALLBG ####[place] [address] [address] [phone] Hematocrit (Bld) [Volume fraction] 42.7 % Normal 36.0-46.0 [facility] Comment on above: Performed By: #### V ALLBG ####[place] [address] [address] [phone] Hemoglobin (Bld) [Mass/Vol] 13.9 g/dL Normal 11.5-15.5 [facility] Comment on above: Performed By: #### V ALLBG ####[place] [address] [address] [phone] Lactate [Moles/Vol] 1.3 mmol/L Normal 0.5-2.2 [facility] Comment on above: Performed By: #### V ALLBG ####[place] [address] [address] [phone] Methemoglobin 1.1 % Normal <1.6 [facility] Comment on above: Performed By: #### V ALLBG ####[facility] [phone] O2 Administered 100% Normal [facility] Comment on above: Performed By: #### V ALLBG ####[place] [address] AveCTrac[address] [place] [phone] Oxyhemoglobin, Ziyad. 88 % High 60-85 [facility] Comment on above: Performed By: #### V ALLBG ####[place] [address] [address] [phone] pCO2 49 mm Hg Normal 42-55 [facility] Comment on above: Performed By: #### V ALLBG ####[place] [address] [address] [phone] pCO2, Temp Correct 49 mm Hg Normal 42-55 [facility] Comment on above: Performed By: #### V ALLBG ####[place] [address] [address] [phone] pH (Bld) 7.34 [pH] Normal 7.32-7.42 [facility] Comment on above: Performed By: #### V ALLBG ####[place] [address] [address] [phone] pH, Temp Corrected 7.34 Normal 7.32-7.42 [facility] Comment on above: Performed By: #### V ALLBG ####[facility]CTrac[address] [place] [phone] pO2 64 mm Hg High 35-45 [facility] Comment on above: Performed By: #### V ALLBG ####[facility]CT[address] [phone] pO2, Temp Corrected 64 mm Hg High 35-45 [facility] Comment on above: Performed By: #### V ALLBG ####[facility] [place], [place] [phone] Potassium [Moles/Vol] 4.1 mmol/L Normal 3.5-5.0 [facility] Comment on above: Performed By: #### V ALLBG ####[address] [phone] Sodium [Moles/Vol] 142 mmol/L Normal 136-144 [facility] Comment on above: Performed By: #### V ALLBG ####[address] [phone] Magnesiumon 04-27-2021 Magnesium [Mass/Vol] 2.2 mg/dL Normal 1.7-2.3 [facility] Comment on above: Performed By: #### P HOS, CMP, PTT, CBC, MG1, PT ####[address] [phone] NURSING PROGon 04-27-2021 NURSING PROG HNO ID: [id number] Author: Jack Richards RN Service: Nursing Author Type: Registered Nurse Type: Nursing Progress Note Filed: 04/27/2021 10:46 PM Note Text: Nursing Progress: Topic: RESTRAINT NON-VIOLENT PATIENT NAME: Oscar Pineda PATIENT LOCATION: [place] [address] The patient demonstrates Lack of Understanding/Ability to [...] TIME: 10:00 PM Jack Richards RN Normal [facility] NURSING PROG HNO ID: [id number] Author: Karsten Goldsmith RN Service: Nursing Author Type: Registered Nurse Type: Nursing Progress Note Filed: 04/27/2021 8:51 AM Note Text: Nursing Progress: Topic: RESTRAINT NON-VIOLENT PATIENT NAME: Oscar Pineda PATIENT LOCATION: [place] [address] The patient demonstrates Lack of Understanding/Ability to [...] TIME: 8:51 AM Karsten Goldsmith RN Normal [facility] Phosphoruson 04-27-2021 Phosphate [Mass/Vol] 3.3 mg/dL Normal 2.7-4.8 [facility] Comment on above: Performed By: #### P HOS, CMP, PTT, CBC, MG1, PT ####[facility] [address] [place], [place] [phone] Protimeon 04-27-2021 PT INR 1.1 Normal 0.9-1.3 [facility] Comment on above: Result Comment: Neha min K Antagonist (VKA) Therapeutic Range: INR 2 to 3 (Target INR of 2.5) Note: For patients treated with VKA drugs, such as warfarin, the [place] [employer] 2012 Guideline recommends [...] Chest 2012, 141:7S-47S Daphne RA, et al. [facility] 2017, 70: 252-289 Performed By: #### P HOS, CMP, PTT, CBC, MG1, PT ####[facility], [place] [phone] PT Sec 11.2 sec Normal 9.7-13.0 [facility] Comment on above: Performed By: #### P HOS, CMP, PTT, CBC, MG1, PT ####[facility] [place], [place] [phone] US ABDOMEN LTDon 04-27-2021 US ABDOMEN LTD * * *Final Report* * * DATE OF EXAM: Apr 27 2021 12:24PM [facility] 1064 - US ABDOMEN LTD / PROCEDURE [...] within the hepatic veins or visualized IVC. Motorcoach Operator: PSCB Transcribe Date/Time: Apr 27 2021 12:34P Dictated by : POONAM BLUM MD This examination was interpreted and the report reviewed and electronically signed by: ALICIA MENDOZA MD on Apr 27 2021 2:57PM EST [id number] Normal [facility] XR CHEST 1V FRONTALon 2020 XR [...] cardiomediastinal silhouette. Other: . IMPRESSION: See result. Motorcoach Operator: PSCKb Transcribe Date/Time: Apr 27 2021 10:29A Dictated by : TAYLOR CORONA MD This examination was interpreted and the report reviewed and electronically signed by: TAYLOR CORONA MD on Apr 27 2021 10:31AM EST [id number] Normal [facility] ANES Sachin 04-26-2021 ANES POST HNO ID: [id number] Author: Tamara Brown DO Service: Anesthesiology Author [...] 26, 2021 TIME: 2:26 PM PAGER/CONTACT #: [phone] Normal [facility] APTTon 04-26-2021 aPTT Coag (Bld) [Time] 22.2 s Low 23.0-32.4 [facility] Comment on above: Result Comment: Unfr [...] laboratory APTT reagent in use throughout the [facility]. Performed By: #### C BC, MG1, PT, PTT, BMP, PHOS ####[facility] [place], [place] [phone] BRIEF OP NOTon 04-26-2021 BRIEF OP NOT HNO ID: [id number] Author: Kayce Wagner MD Service: Radiology Author Type: Physician Type: Brief Op Note Filed: 04/26/2021 3:28 PM Note Text: BRIEF OPERATIVE / PROCEDURE NOTE LOG ID: [id number] SURGERY/PROCEDURE DATE: 04/26/2021 INCISION/PROCEDURE START TIME: 9:25 AM INCISION CLOSE/PROCEDURE END TIME: 11:20 AM SURGEON(S)/PROCEDURALIS T(S) AND BOTTOM SPRAYER(S): Surgeon(s) and Role: * Kayce Wagner MD - Primary No Additional Staff SURGERY/PROCEDURE(S): [...] POST-OP/POST-PROCEDURE DIAGNOSIS: Same as Preop SIGNATURE: Kayce Wagner MD PATIENT NAME: Oscar Pineda DATE: April 26, 2021 TIME: 2:59 PM [phone] Normal [facility] Basic Metabolic Panlon 04-26 Anion gap [Moles/Vol] 11 mmol/L Normal 9-18 [facility] Comment on above: Performed By: #### C BC, MG1, PT, PTT, BMP, PHOS ####[facility] [address] [place], [place] [phone] Calcium [Mass/Vol] 8.3 mg/dL Low 8.5-10.2 [facility] Comment on above: Performed By: #### C BC, MG1, PT, PTT, BMP, PHOS ####[facility] [address] [place], [place] [phone] Chloride [Moles/Vol] 107 mmol/L High 97-105 [facility] Comment on above: Performed By: #### C BC, MG1, PT, PTT, BMP, PHOS ####[place] [address] [address] [place] [phone] CO2 [Moles/Vol] 22 mmol/L Normal 22-30 [facility] Comment on above: Performed By: #### C BC, MG1, PT, PTT, BMP, PHOS ####[place] [address] [address] [place] [phone] Creatinine [Mass/Vol] 0.74 mg/dL Normal 0.58-0.96 [facility] Comment on above: Performed By: #### C BC, MG1, PT, PTT, BMP, PHOS ####[place] [phone] eGFR- Amer. >60 Normal [facility] Comment on above: Performed By: #### C BC, MG1, PT, PTT, BMP, PHOS ####[place] [phone] eGFR-All Other Races >60 Normal [facility] Comment on above: Result Comment: eGFR [...] C BC, MG1, PT, PTT, BMP, PHOS ####[place] [phone] Glucose [Mass/Vol] 178 mg/dL High 74-99 [facility] Comment on above: Result Comment: The [place] [employer] (ADA) provides guidance for cutoff [...] Standards of Medical Care in Diabetes 2016, [place] [employer]. Diabetes Care. 2016.39(Suppl 1). Performed By: #### C BC, MG1, PT, PTT, BMP, PHOS ####[address] [phone] Potassium [Moles/Vol] 4.1 mmol/L Normal 3.7-5.1 [facility] Comment on above: Performed By: #### C BC, MG1, PT, PTT, BMP, PHOS ####[address] [phone] Sodium [Moles/Vol] 140 mmol/L Normal 136-144 [facility] Comment on above: Performed By: #### C BC, MG1, PT, PTT, BMP, PHOS ####[address] [phone] Urea nitrogen [Mass/Vol] 14 mg/dL Normal 7-21 [facility] Comment on above: Performed By: #### C BC, MG1, PT, PTT, BMP, PHOS ####[place] [address] [place], [place] [phone] CBCon 04-26-2021 Absolute nRBC <0.01 Normal <0.01 [facility] Comment on above: Performed By: #### C BC, MG1, PT, PTT, BMP, PHOS ####[place] [address] [address]ClevelMackenzie [place] [phone] Erythrocyte distribution width (RBC) [Ratio] 11.9 % Normal 11.5-15.0 [facility] Comment on above: Performed By: #### C BC, MG1, PT, PTT, BMP, PHOS ####[place] [address] [address]ClevelandA[address] [place] [phone] Hematocrit (Bld) [Volume fraction] 38.5 % Normal 36.0-46.0 [facility] Comment on above: Performed By: #### C BC, MG1, PT, PTT, BMP, PHOS ####[place] [address] [address] [phone] Hemoglobin (Bld) [Mass/Vol] 13.2 g/dL Normal 11.5-15.5 [facility] Comment on above: Performed By: #### C BC, MG1, PT, PTT, BMP, PHOS ####[place] [address] [address]ClevelMackenzie [place] [phone] MCH 31.7 pG Normal 26.0-34.0 [facility] Comment on above: Performed By: #### C BC, MG1, PT, PTT, BMP, PHOS ####[place] [address] [address] [phone] MCHC (RBC) [Mass/Vol] 34.3 g/dL Normal 30.5-36.0 [facility] Comment on above: Performed By: #### C BC, MG1, PT, PTT, BMP, PHOS ####[place] [address] [address]ClevelMackenzie [place]ille [phone] MCV (RBC) [Entitic vol] 92.3 fL Normal 80.0-100.0 [facility] Comment on above: Performed By: #### C BC, MG1, PT, PTT, BMP, PHOS ####[place] [address] [address]ClevelMack[address] [place] [phone] Platelet mean volume (Bld) [Entitic vol] 9.6 fL Normal 9.0-12.7 [facility] Comment on above: Performed By: #### C BC, MG1, PT, PTT, BMP, PHOS ####[facility] [place], [place] [phone] Platelets (Bld) [#/Vol] 227 10*3/uL Normal 150-400 [facility] Comment on above: Performed By: #### C BC, MG1, PT, PTT, BMP, PHOS ####[place] [address]Cal[address], [place] [phone] RBC (Bld) [#/Vol] 4.17 10*6/uL Normal 3.90-5.20 [facility] Comment on above: Performed By: #### C BC, MG1, PT, PTT, BMP, PHOS ####[facility] [place], [place] [phone] WBC (Bld) [#/Vol] 17.98 10*3/uL High 3.70-11.00 [facility] Comment on above: Performed By: #### C BC, MG1, PT, PTT, BMP, PHOS ####[facility] [place], [place] [phone] CONSULTon 04-26-2021 CONSULT HNO ID: [id number] Author: Jose M Cedillo MD Service: Interventional [...] Oscar BRITTON (more content not included)... Normal [facility] CONSULT HNO ID: [id number] Author: Oneida Ruano MD Service: Cardiovascular Medicine Author Type: Physician Type: Consults Filed: 04/27/2021 2:36 PM Note Text: [facility] CONSULT NOTE Oscar Pineda [id number] CONSULTING SERVICE: SICU DATE OF ADMISSION: 04/26/2021 [...] Problems: # (more content not included)... Normal [facility] CT ABLATION MSK NOT BONE ALDO ORon 04-26-2021 CT ABLATION MSK NOT BONE TUMOR * * *Final Report* * * * * * SEE BOTTOM OF REPORT FOR ADDENDED TEXT * * * DATE OF EXAM: Apr 26 2021 11:24AM [facility] [place] 2066 - CT ABLATION MSK NOT BONE TUMOR / PROCEDURE REASON: R19.03-Iofsc-dvphbvfql and pelvic swelling, mass and lump, unspecified [...] induction 08 Procedure Start and End Time: 0925 and 1120 Anesthesia / Sedation End Time: General anesthesia [...] for fur (more content not included)... Normal [facility] CT BRAIN WO IVCONon 04-26-[address] BRAIN WO IVCON * * *Final Report* * * DATE OF EXAM: Apr 26 2021 1:45PM [facility] 0504 - CT BRAIN [...] reduction techniques were required COMPARISON: None. RESULT: Optical Mechanic (topogram) images: Endotracheal tube. Post-operative change: None. [...] Portable head CT demonstrating no acute findings. Motorcoach Operator: PSCB Transcribe Date/Time: Apr 26 2021 1:56P Dictated by : MARIA L SCHMIDT MD This examination was interpreted and the report reviewed and electronically signed by: MARIA L SCHMIDT MD on Apr 26 2021 1:58PM EST [id number] Normal [facility] Confirm Blood Typeon 021 ABO/RH(D) Positive Normal [facility] Comment on above: Performed By: #### C ONABO ####[place] [phone] Performed By: #### T SCR ####[place] [phone] Expedited [id number] 04-26-20 21 SARS-CoV-2 (COVID-19) RNA ROX+probe Ql (Unsp spec) UPPER RESPIRATORY TRACT SWAB Normal [facility] Comment on above: Performed By: #### E XCOVD ####[address] [phone] SARS-CoV-2 (COVID-19) RNA ROX+probe Ql (Unsp spec) Negative for COVID19 (SARS CoV2) by RT-PCR or equivalent method. Normal Negative for COVID19 (SARS CoV2) by RT-PCR or equivalent method. [facility] Comment on above: Result Comment: This test has been authorized by FDA under an Emergency Use Authorization (EUA). Test performed by [facility], [facility] [place], [address] [place], [place] [address]. Performed By: #### E XCOVD ####[facility], [place] [phone] GASV + ALLon 04-26-2021 Base Excess Negative Normal [facility] Comment on above: Performed By: #### V ALLBG ####[place] [address] [address], [place] [phone] Blood Gas Comm, Ziyad .VENOUS Normal [facility] Comment on above: Performed By: #### V ALLBG ####[place] [address] [address] [phone] Body temperature 98.6 [degF] Normal [facility] Comment on above: Performed By: #### V ALLBG ####[address] [place] [phone] Calcium [Moles/Vol] 1.23 mmol/L Normal 1.08-1.30 [facility] Comment on above: Performed By: #### V ALLBG ####[place] [address] [address] [phone] Carboxyhemoglobin, Ziyad 0.9 % Normal <2.1 [facility] Comment on above: Performed By: #### V ALLBG ####[place] [address] [address] [phone] CO2 [Moles/Vol] 27 mmol/L Normal 25-29 [facility] Comment on above: Performed By: #### V ALLBG ####[place] [address]CTrac[address] [place] [phone] Glucose [Mass/Vol] 144 mg/dL High 60-105 [facility] Comment on above: Performed By: #### V ALLBG ####[place] [address] [address], [place] [phone] HCO3 (Bld) [Moles/Vol] 25 mmol/L Normal 24-28 [facility] Comment on above: Performed By: #### V ALLBG ####[place] [address]CTrac[address] [place] [phone] Hematocrit (Bld) [Volume fraction] 43.2 % Normal 36.0-46.0 [facility] Comment on above: Performed By: #### V ALLBG ####[place] [address] [address] [phone] Hemoglobin (Bld) [Mass/Vol] 14.1 g/dL Normal 11.5-15.5 [facility] Comment on above: Performed By: #### V ALLBG ####[place] [address] [address] [phone] Lactate [Moles/Vol] 2.0 mmol/L Normal 0.5-2.2 [facility] Comment on above: Performed By: #### V ALLBG ####[place] [address] [address] [phone] Methemoglobin 0.7 % Normal <1.6 [facility] Comment on above: Performed By: #### V ALLBG ####[place] [address] [address] [place] [phone] O2 Administered 100% Normal [facility] Comment on above: Performed By: #### V ALLBG ####[place] [address] [address] [place] [phone] Oxyhemoglobin, Ziyad. 81 % Normal 60-85 [facility] Comment on above: Performed By: #### V ALLBG ####[place] [address] [address] [phone] pCO2 53 mm Hg Normal 42-55 [facility] Comment on above: Performed By: #### V ALLBG ####[place] [address] [address] [phone] pCO2, Temp Correct 53 mm Hg Normal 42-55 [facility] Comment on above: Performed By: #### V ALLBG ####[facility], [place] [phone] pH (Bld) 7.30 [pH] Low 7.32-7.42 [facility] Comment on above: Performed By: #### V ALLBG ####[facility] [address] AveCTraci V[place] [phone] pH, Temp Corrected 7.30 Low 7.32-7.42 [facility] Comment on above: Performed By: #### V ALLBG ####[place] [address]CTrac[address] [place] [phone] pO2 52 mm Hg High 35-45 [facility] Comment on above: Performed By: #### V ALLBG ####[place] [address] [place] [phone] pO2, Temp Corrected 52 mm Hg High 35-45 [facility] Comment on above: Performed By: #### V ALLBG ####[place] [address] [place] [phone] Potassium [Moles/Vol] 4.4 mmol/L Normal 3.5-5.0 [facility] Comment on above: Performed By: #### V ALLBG ####[facility] [place] [phone] Sodium [Moles/Vol] 142 mmol/L Normal 136-144 [facility] Comment on above: Performed By: #### V ALLBG ####[facility] [place] [phone] Base Excess Negative Normal [facility] Comment on above: Performed By: #### V ALLBG ####[facility] [address]CElm[address], [place] [phone] Blood Gas Comm, Ziyad .VENOUS Normal [facility] Comment on above: Performed By: #### V ALLBG ####[facility], [place] [phone] Body temperature 98.6 [degF] Normal [facility] Comment on above: Performed By: #### V ALLBG ####[place] [address] [address], [place] [phone] Calcium [Moles/Vol] 1.25 mmol/L Normal 1.08-1.30 [facility] Comment on above: Performed By: #### V ALLBG ####[place] [address] [address] [phone] Carboxyhemoglobin, Ziyad 0.5 % Normal <2.1 [facility] Comment on above: Performed By: #### V ALLBG ####[place] [address] [address] [phone] CO2 [Moles/Vol] 25 mmol/L Normal 25-29 [facility] Comment on above: Performed By: #### V ALLBG ####[place] [address] [address] [phone] Glucose [Mass/Vol] 172 mg/dL High 60-105 [facility] Comment on above: Performed By: #### V ALLBG ####[place] [address] [address], [place] [phone] HCO3 (Bld) [Moles/Vol] 24 mmol/L Normal 24-28 [facility] Comment on above: Performed By: #### V ALLBG ####[place] [address] [address], [place] [phone] Hematocrit (Bld) [Volume fraction] 44.2 % Normal 36.0-46.0 [facility] Comment on above: Performed By: #### V ALLBG ####[place] [address] [address], [place] [phone] Hemoglobin (Bld) [Mass/Vol] 14.4 g/dL Normal 11.5-15.5 [facility] Comment on above: Performed By: #### V ALLBG ####[place] [address] [address] [phone] Lactate [Moles/Vol] 2.4 mmol/L High 0.5-2.2 [facility] Comment on above: Performed By: #### V ALLBG ####[place] [address] [address] [phone] Methemoglobin 1.2 % Normal <1.6 [facility] Comment on above: Performed By: #### V ALLBG ####[place] [address] [address] [phone] O2 Administered 100% Normal [facility] Comment on above: Performed By: #### V ALLBG ####[place] [address] [address] [phone] Oxyhemoglobin, Ziyad. 98 % High 60-85 [facility] Comment on above: Performed By: #### V ALLBG ####[place] [address] [address] [place] [phone] pCO2 46 mm Hg Normal 42-55 [facility] Comment on above: Performed By: #### V ALLBG ####[place] [address] [address] [phone] pCO2, Temp Correct 46 mm Hg Normal 42-55 [facility] Comment on above: Performed By: #### V ALLBG ####[place] [address] [address] [phone] pH (Bld) 7.33 [pH] Normal 7.32-7.42 [facility] Comment on above: Performed By: #### V ALLBG ####[place] [address] [address] [phone] pH, Temp Corrected 7.33 Normal 7.32-7.42 [facility] Comment on above: Performed By: #### V ALLBG ####[facility] [address], [place] [phone] pO2 246 mm Hg High 35-45 [facility] Comment on above: Performed By: #### V ALLBG ####[facility] [address], [place] [phone] pO2, Temp Corrected 246 mm Hg High 35-45 [facility] Comment on above: Performed By: #### V ALLBG ####[facility] [address] [place], [place] [phone] Potassium [Moles/Vol] 4.4 mmol/L Normal 3.5-5.0 [facility] Comment on above: Performed By: #### V ALLBG ####[facility] [address], [place] [phone] Sodium [Moles/Vol] 143 mmol/L Normal 136-144 [facility] Comment on above: Performed By: #### V ALLBG ####[facility] [address], [place] [phone] HISTORY PHYSICALon HISTORY PHYSICAL HNO ID: [id number] Author: Kayce Wagner MD Service: Radiology Author Type: Physician Type: [...] Electronic Medical Record dated 04/02/21. SIGNATURE: Kayce Wagner MD PATIENT NAME: Oscar Pineda DATE: April 26, 2021 TIME: 8:54 PM Normal [facility] Magnesiumon 04-26-2021 Magnesium [Mass/Vol] 1.9 mg/dL Normal 1.7-2.3 [facility] Comment on above: Performed By: #### C BC, MG1, PT, PTT, BMP, PHOS ####[facility] [address], [place] [phone] NURSING PROGon 04-26-2021 NURSING PROG HNO ID: [id number] Author: Jack Richards RN Service: Nursing Author Type: Registered Nurse Type: Nursing Progress Note Filed: 04/26/2021 9:21 PM Note Text: Nursing Progress: Topic: RESTRAINT NON-VIOLENT PATIENT NAME: Oscar Pineda PATIENT LOCATION: [place] [address] The patient demonstrates Lack of Understanding/Ability to [...] TIME: 8:00 PM Jack Richards RN Normal [facility] NURSING PROG HNO ID: [id number] Author: Karsten Goldsmith RN Service: Nursing Author Type: Registered Nurse Type: Nursing Progress Note Filed: 04/26/2021 6:59 PM Note Text: Nursing Progress: Topic: RESTRAINT NON-VIOLENT PATIENT NAME: Oscar Pineda PATIENT LOCATION: [place] [address] [address] The patient demonstrates Lack of Understanding/Ability to [...] TIME: 6:58 PM Karsten Goldsmith RN Normal [facility] PT EDon 04-26-2021 PT ED HNO ID: [id number] Author: Agnes Schaefer RN Service: Interventional Radiology [...] SUPPLEMENTAL MATERIAL: None REFERRAL (RECOMMENDATION): None Normal [facility] Phosphoruson 04-26-2021 Phosphate [Mass/Vol] 3.1 mg/dL Normal 2.7-4.8 [facility] Comment on above: Performed By: #### C BC, MG1, PT, PTT, BMP, PHOS ####[facility], [place] [phone] Protimeon 04-26-2021 PT INR 1.1 Normal 0.9-1.3 [facility] Comment on above: Result Comment: Neha min K Antagonist (VKA) Therapeutic Range: INR 2 to 3 (Target INR of 2.5) Note: For patients treated with VKA drugs, such as warfarin, the [employer] 2012 Guideline recommends [...] Chest 2012, 141:7S-47S Daphne RA, et al. [facility] 2017, 70: 252-289 Performed By: #### C BC, MG1, PT, PTT, BMP, PHOS ####[place] [address] [address] [place], [place] [phone] PT Sec 11.9 sec Normal 9.7-13.0 [facility] Comment on above: Performed By: #### C BC, MG1, PT, PTT, BMP, PHOS ####[facility], [place] [phone] Staph aureus PCRon MRSA PCR Negative Normal [facility] Comment on above: Performed By: #### S APCR ####[place] [address] [place], [place] [phone] S aureus Spec Source Nasal Normal [facility] Comment on above: Performed By: #### S APCR ####[place] [address] [address] [place], [place] [phone] Staph aureus PCR Negative Normal [facility] Comment on above: Performed By: #### S APCR ####[place] [address] [address] [place], [place] [phone] XR ABDOMEN 1V SUPINEon 04-26 XR ABDOMEN [...] loops of bowel. No focal bony abnormality. Motorcoach Operator: [facility] Transcribe Date/Time: Apr 26 2021 2:53P Dictated by : RAMIN BROWNLEE MD This examination was interpreted and the report reviewed and electronically signed by: RAMIN BROWNLEE MD on Apr 26 2021 3:05PM EST [id number] Normal [facility] XR CHEST 1V FRONTAL PORTon 1 [...] No acute process identified. IMPRESSION: See result. Motorcoach Operator: [facility] Transcribe Date/Time: Apr 26 2021 6:05P Dictated by : JASON LOWE MD This examination was interpreted and the report reviewed and electronically signed by: JASON LOWE MD on Apr 26 2021 6:07PM EST [id number] Normal [facility] XR CHEST 1V FRONTAL PORT * [...] No acute process identified. IMPRESSION: See result. Motorcoach Operator: ANEL Transcribe Date/Time: Apr 26 2021 3:57P Dictated by : JASON LOWE MD This examination was interpreted and the report reviewed and electronically signed by: JASON LOWE MD on Apr 26 2021 3:58PM EST [id number] Normal [facility] NURSING PROGon 04-24-2021 NURSING PROG HNO ID: [id number] Author: Shereen Kwok LPN Service: ? Author Type: LICENSED NURSE Type: Nursing Progress Note Filed: 04/24/2021 2:42 PM Note Text: Pre-procedure instructions: Contacted patient and confirmed appt. for Cryoablation scheduled on 04/26/21, at [facility]. Diet: Do not eat solid food [...] Arrival at 6:30am to desk QB-1 (Betty Cashiers) and check in for your procedure. Diesel Bus Mechanic/Transportation: How will you be arriving for your procedure? Private car. If you will be arriving at [facility] via ambulance or public transportation, please call to discuss. You will need a responsible adult to accompany you to and from the procedure. Your emergency detail driver is required to stay with you until you are taken into the Procedure room. [facility] is currently restricting visitors to two visitors per patient. No visitor under the age of 16. You and your visitor will be screened for temperature and COVID-19 symptoms upon entry to the hospital, and a wristband will be applied when cleared. If you develop any of the following symptoms before your procedure, please call [phone]. Chills, joint pain, rash, sore throat, cough, [...] No Written instructions provided to patient via [employer] If you have any questions please call [phone] Normal [facility] MRI ABDOMEN WO/W IVCONon [facility] Vital Signs Date Time Vital Sign Value Performing Clinician Facility 10-10-2022 10:00-0400 Body height 161.29 cm Shaun Valentine Other [facility] Other 10-10-2022 10:00-0400 Body mass index (BMI) [Ratio] 23.08 kg/m2 Shaun Valentine Other [facility] Other 10-10-2022 10:00-0400 Body weight 60.06 kg Shaun Ball Other [facility] Other 10-10-2022 10:00-0400 Diastolic blood pressure 76 mm[Hg] Shaun Ball Other [facility] Other 10-10-2022 10:00-0400 Respiratory rate 12 /min Shaun Ball Other [facility] Other 10-10-2022 10:00-0400 Systolic blood pressure 110 mm[Hg] Shaun Ball Other [facility] Other 04-28-2022 15:46-0400 Body temperature 99.5 [degF] Melani Russell MD Work Phone: [facility] 04-28-2022 15:46-0400 Body weight 76.39 kg Melani Russell MD Work Phone: [facility] 04-28-2022 15:46-0400 Diastolic blood pressure 76 mm[Hg] Mleani Russell MD Work Phone: [facility] 04-28-2022 15:46-0400 Heart rate 71 /min Melani Russell MD Work Phone: [facility] 04-28-2022 15:46-0400 Respiratory rate 20 /min Melani Russell MD Work Phone: [facility] 04-28-2022 15:46-0400 SaO2% (BldA) [Mass fraction] 97 % Melani Russell MD Work Phone: [facility] 04-28-2022 15:46-0400 Systolic blood pressure 131 mm[Hg] Melani Russell MD Work Phone: [facility] Encounters Encounter Date Encounter Type Care Provider Facility Start: 08-24-2023 End: 08-24-2023 ambulatory SUKHJINDER AUDELIA Not Available Start: 08-10-2023 End: 08-10-2023 ambulatory SUKHJINDER AUDELIA Not Available Start: 07-27-2023 End: 07-27-2023 ambulatory SUKHJINDER AUDELIA Not Available Start: 06-29-2023 End: 06-29-2023 ambulatory ADRIANNE MERCHANT Not Available Start: 06-01-2023 End: 06-01-2023 ambulatory SUKHJINDER AUDELIA Not Available Start: 02-25-2023 ambulatory Melani Hutchison Work Phone: Hematology/Oncology Comment on above: Start: 11-02-2022 Encounter for genera l adult medical examination without abnormal findings DR SHAUN VALENTINE [facility] Start: 10-27-2022 Telephone encounter Shaun Valentine [facility] Start: 10-27-2022 End: 10-28-[address] SHAUN VALENTINE [facility] Other Start: 10-27-2022 End: 10-28-2022 Encounter for general adult medical examination without abnormal findings DR SHAUN VALENTINE Facility: Start: 10-10-2022 End: 10-10-2022 ambulatory Shaun Valentine Other [facility] Other Start: 10-10-2022 Encounter for genera l adult medical examination without abnormal findings Shaun Valentine [facility] Start: 10-10-2022 Periodic preventive med est patient 18-39 yrs Shaun Valentine 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] Start: 11-14-2021 ambulatory Melani Hutchison Work Phone: Hematology/Oncology 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 Start: 10-28-2021 Telephone encounter Melani Acuña rd, MD Work Phone: Hematology/Oncology Comment on above: Care Coordination Start: 09-27-2021 End: 09-27-2021 ambulatory MELANI RUSSELL Facility:[facility] Start: 09-20-2021 End: 09-20-2021 ambulatory MELANI GILLESPIED Facility:[facility] Start: 05-07-2021 End: 05-07-2021 ambulatory ALEX URBANO [facility] Start: 05-06-2021 End: 05-06-2021 ambulatory ALEX URBANO [facility] Start: 04-26-2021 End: 04-30-2021 Evaluation and management of inpatient FAYSAL ALTABDOULAWI [facility] Start: 02-28-2021 End: 02-28-2021 Subsequent hospital visit by physician Kiel [facility] Miriam (I-Stat/1.5t) Radiology Comment on above: Intra-abdominal and pelvic swelling, mass and lump, unspecified site [R19.00] Procedures Date Procedure Procedure Detail Performing Clinician Start: 04-29-2021 Antibody screen ALEX URBANO Comment on above: Performed By: #### T SCR ####[facility], [place] [phone] Start: 04-26-2021 Antibody screen ALEX URBANO Comment on above: Performed By: #### T SCR ####[facility], [place] [phone] Start: 02-28-2021 Mri abdomen w/o & w/contrast material Cortez Carter MD Work Phone: Plan of Treatment Date Care Activity Detail Author Start: 03-20-2023 Covid-19 Vaccine () Covid-19 Vacc[address] () [facility] Start: 03-20-2023 Influenza vaccination [facility] Start: 10-28-2022 End: 05-29-2023 Mri abdomen w/o & w/contrast material MRI ABDOMEN WO/W IVCON Radiology Routine History of tumor Expected: 10/28/2022, Expires: 05/29/2023 [facility] Work Phone: Comment on above: Expected: 10/28/2022 , Expires: 05/29/2023 Start: 10-28-2022 End: 05-29-2023 Mri pelvis w/o & w/contrast material MRI PELVIS WO/W IVCON Radiology Routine History of tumor Expected: 10/28/2022, Expires: 05/29/2023 [facility] Work Phone: Comment on above: Expected: 10/28/2022 , Expires: 05/29/2023 Start: 10-26-2022 End: 12-26-2022 CBC W Auto Differential panel - Blood ABS GRAN CT + CBC Lab Routine History of tumor Expected: 10/26/2022 (Approximate), Expires: 12/26/2022 [facility] Work Phone: Comment on above: Expected: 10/26/2022 (Approximate), Expires: 12/26/2022 Start: 10-26-2022 End: 12-26-2022 Comprehensive metabolic 2000 panel - Serum or Plasma COMP METABOLIC PANEL Lab Routine History of tumor Expected: 10/26/2022 (Approximate), Expires: 12/26/2022 [facility] Work Phone: Comment on above: Expected: 10/26/2022 (Approximate), Expires: 12/26/2022 Start: 07-20-2022 DEPRESSION ASSESSMENT DEPRESSION ASS ESSMENT [facility] Start: 03-20-2022 Influenza vaccination [facility] Start: 09-12-2021 COVID-19 VACCINE (3 - Booster for Pfizer series) COVID-19 VACCINE (3 - Booster for Pfizer series) [facility] Start: 07-20-2021 DEPRESSION ASSESSMENT DEPRESSION ASS ESSMENT [facility] Start: 06-07-2021 COVID-19 VACCINE (3 - Booster for Pfizer series) COVID-19 VACCINE (3 - Booster for Pfizer series) [facility] Start: 06-07-2021 COVID-19 VACCINE (3 - Pfizer series) COVID-19 VACCINE (3 - Pfizer series) [facility] Start: 03-15-2020 Urine microalbumin profile DTaP,Tdap,Td Vaccine (2 - Tdap) [facility] Start: 2014 HPV TESTING HPV TESTING [facility] Start: 2005 PAP TESTING PAP TESTING [facility] Start: 2003 Urine microalbumin profile DTAP,TDAP,TD (1 - Tdap) [facility] Start: 2002 HEPATITIS C SCREENING HEPATITIS C SC REENING [facility] Start: 2002 HIV SCREENING HIV SCREENING [facility] Start: 1996 Adult depression screening assessment DEPRESSION SCREENING [facility] Start: 1984 HEPATITIS B (1 of 3 - 3-dose series) HEPATITIS B (1 of 3 - 3-dose series) [facility] Start: 1984 Hepatitis B Vaccine (1 of 3 - 3-dose series) Hepatitis B Vaccine (1 of 3 - 3-dose series) [facility] End: 04-21-2022 Mri abdomen w/o & w/contrast material [facility] Work Phone: Comment on above: 1 Occurrences starti ng 04/21/2022 until 04/21/2022 End: 04-21-2022 Mri pelvis w/o & w/contrast material [facility] Work Phone: Comment on above: 1 Occurrences starti ng 04/21/2022 until 04/21/2022 [facility] Immunizations Immunization Date Immunization Notes Care Provider Ana lucas 04-12-2021 COVID-19 Vaccine Pfi zer - Documentation Purposes Only Shaun Valentine Other [facility] Other 03-22-2021 COVID-19 Vaccine Pfi zer - Documentation Purposes Only Shaun Valentine Other [facility] Other 06-09-2019 influenza virus vaccine, unspecified formulation Mri (I-Stat/1.5t) [facility] Payers Date Payer Category Payer Private Health Insurance [employer] A ETNA CHOICE POS II [id number] 2015-Present [phone] [address] [place] [address] POS [id number] 2015 Private Health Insurance [id number] 1984 Unknown [id number] 1984 Unknown [id number] 1984 Unknown [id number] 1984 Unknown [id number] 1984 Unknown [id number] 1984 Unknown [id number] 1959 Private Health Insurance [id number] Private Health Insurance [id number] Social History Date Type Detail Facility Start: 02-14-2021 Tobacco smoking stat [facility] Never smoked tobacco [facility] Start: 02-14-2021 Tobacco use and exposure Smoke less tobacco non-user [facility] Start: 1984 Sex Assigned At Female C [facility] Start: 01-15-2021 End: 04-28-2022 Exposure to SARS-CoV-2 (event) Not sure [facility] Start: 02-14-2021 End: 05-07-[address] [facility] Start: 02-14-2021 End: 05-07-2021 History of Social function [facility] Adult Depression Screening Assessment 0 [facility] Start: 02-26-2021 Gender identity Identifies as female gender (finding) [facility] Start: 03-27-2021 Sexual orientation Heterosexual (kolby mejia) [facility] Clinical Notes 02-28-2021 to 10-10-2022 Note Date & Type Note Facility 10-10-2022 Evaluation note Encounter Date Diagnosis Assessment Notes Sep, Wellness examination (ICD-10 - Z00.00) Sep, Hair thinning (ICD-10 - L65.9) Check H/H and TSH Not scarring [facility] Other 10-11-2022 History of Present illness Narrative* [...] Wt 76.4 kg (168 lb 6.4 oz) [facility]04/18/2021 SpO2 97% BMI 29.83 kg/m General Appearance [...] Hematology and Medical Oncology documented in this encounterSt[facility] Nurse Note* Aliya Jean Baptiste RN - 04/28/2022 3:43 PM EDT Additional intake questions: Has the patient had fever, nausea, vomiting, diarrhea, constipation, fatigue for > 1 week? No Does the patient have a decreased appetite? No Does patient want to see a Paper Bag Making Machinist? No (yes to any of above refer [...] Aliya Jean Baptiste RN documented in this encounterSt. [facility] NoteHNO ID: [id number] Author: Erin Garcia RN Service: ? Author [...] Pineda DATE: April 21, 2022 TIME: 5:35 [facility]10-03-2022 NoteHNO ID: [id number] Author: RT Toby(Lizzy) Service: Radiology Author Type: [...] BY: RT Toby(R) April 21, 2022 6:08 [facility]10-03-2022 History of Present illness Narrative* Erin [...] April 21, 2022 TIME: 5:35 PM * BISI Luis) - 04/21/2022 5:20 PM EDT Radiology Service [...] 21, 2022 6:08 PM documented in this encounterSt[facility] Miscellaneous Notes* Telephone Encounter - Brittany Avendaño ADM - 10/30/2021 3:24 PM EDT Patient calling stating she has not received a call back, Please call @ [phone] * Telephone Encounter - Brittany Avendaño ADM - 10/28/2021 10:02 AM EDT Oscar Pineda is calling Melani Russell MD today regarding Care Coordination,calling with questions about with her condition. Patient has been identified by name and birthdate. Duration of symptoms: N/A Requesting response back: call on cell [phone] (home) [phone] (cell) Brittany Avendaño October 28, 2021 documented in this encounterSt. [facility]22 NoteHNO ID: [id number] Author: Melani Russell MD Service: ? Author Type: Physician Type: Progress Notes Filed: 10/07/2021 12:24 PM Note Text: [facility] STRONG ESTABLISHED PATIENT VISIT PATIENT NAME: Oscar Pineda [...] Melani Pérez MD Internal Medicine Resident, PGY-1 [facility] 09/27/2021 SOLID TUMOR STAFF: ATTENDING PHYSICIAN NOTE [...] Russell MD, PhD Staff, Hematology and Medical [facility]cologyC[facility]03[facility]22 Note HNO ID: [id number] Author: RT Eduardo(R) Service: Radiology Author Type: [...] BY: RT Eduardo(R) September 20, 2021 4:17 [facility]03-04-2022 NoteHNO ID: [id number] Author: Ronda Arora Service: ? Author Type: [...] Pineda DATE: September 20, 2021 TIME: 3:22 [facility]10-18-2021 NoteHNO ID: [id number] Author: LANETTE De Leon Service: ? Author Type: Genetic Counselor Type: Progress Notes Filed: 05/24/2021 11:18 AM Note Text: [facility] Consultation Note Genetic Counselor: Melida Quintero MS, [facility] [place]: Oscar Pineda Patient Name and confirmed at initiation of visit Visit was done virtually via Zoom Portions of the visit were done by genetic counseling software development intern Suzanna Fishman under my supervision HIGH [...] unknown descent and paternal ancestors are of Bahamian and [place]az[place] descent. There is no Ashkenazi Hinduism ancestry. [...] that the patient's genetic (more content not included)...[facility]10-12-2021 NoteHNO ID: [id number] Author: Katty Logan APRN.MACHINE ADJUSTER HELPER Service: Critical Care Author Type: Nurse Practitioner [...] the A/P section below. Please refer to Epic for list of inpatient medications. VITAL SIGNS: [...] room air today KIMBER (more content not included)...[facility]10-11-2021 NoteHNO ID: [id number] Author: Kayce Wagner MD Service: Radiology Author Type: Physician Type: [...] safe for her to go home. Kayce Wagner MD [phone] Clinic [facility] Hospital10-11-2021 NoteHNO ID: [id number] Author: Marva Stiles APRN.MACHINE ADJUSTER HELPER Service: Critical Care Author Type: Nurse Practitioner [...] Completed decadron -> transitioned to medrol. Consulted [facility] for transfer of service. Addendum @ 1115: pt to remain in SICU, [facility] does not feel comfortable accepting pt given supplemental O2 needs and < 24 hrs since extubation. Objective MEDICATIONS: Current medications and allergies reviewed. Recommended/planned medication changes discussed in detail in the A/P section below. Please refer to Epic for list of inpatient medications. VITAL SIGNS: [...] Is Patient Clinically Ready to Transfer to 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 radiology. Pt suffered iatrogenic [...] April 29, 2021 TIME: 8:45 AM PAGER/CONTACT #:[facility]10-10-2021 NoteHNO ID: [id number] Author: Sara Guzman APRN.MACHINE ADJUSTER HELPER Service: Critical Care Author Type: Nurse Practitioner [...] the A/P section below. Please refer to [facility] for list of inpatient medications. VITAL [...] Is Patient Clinically Ready to Transfer to [facility] or SDU?: No Discharge Planning: To [...] Current Assessment AND Pl (more content not included)...[facility]10-10-2021 NoteHNO ID: [id number] Author: Jose M Cedillo MD Service: Interventional [...] who presented for cryoablation on 04/[address] [facility] radiology. Pt suffered iatrogenic [...] April 29, 2021 TIME: 8:34 AM PAGER/CONTACT #:[facility]10-09-2021 NoteHNO ID: [id number] Author: RT Agus(R) Service: Radiology Author Type: [...] IV DATA: Not applicable SIGNED BY: Ana Batuista, RDMS, RVT, RMSKs April 27, 2021 12:23 [facility]10-09-2021 History of Past illness Narrative* [...] of this encounter (statuses as of 11/01/2021) [facility]10-09-2021 History of Past illness Narrative* Problem Noted [...] of this encounter (statuses as of 11/19/2021) [facility]10-09-2021 History of Past illness Narrative* Problem Noted [...] of this encounter (statuses as of 04/22/2022) [facility]10-09-2021 History of Past illness Narrative* Problem Noted [...] of this encounter (statuses as of 04/29/2022) [facility]10-09-2021 History of Past illness Narrative* Problem Noted [...] of this encounter (statuses as of 02/25/2023) [facility]10-09-2021 NoteHNO ID: [id number] Author: Anila Wise APRN.MACHINE ADJUSTER HELPER Service: Critical Care Author Type: Nurse Practitioner [...] the A/P section below. Please refer to [employer] for list of inpatient medications. VITAL SIGNS: [...] Is Patient Clinically Ready to Transfer to RNF or SDU?: No Discharge Planning: To be [...] Pulmonary Acute respiratory insufficie (more content not included)...[facility]10-09-2021 NoteHNO ID: [id number] Author: Jose M Cedillo MD Service: Interventional [...] to look for air in the hepatic veinsC[facility] 04-[facility]-2021 NoteHNO ID: [id number] Author: Interface Note Service: ? Author Type: ? Type: Progress Notes Filed: 04/27/2021 2:51 AM Note Text: Epic Scheduled Downtime: 04/27/2021 1:00:00 AM to 04/27/2021 2:33:00 [facility]10-08-2021 NoteHNO ID: [id number] Author: Marva Stiles APRN.NGUYEN Service: Critical Care [...] the A/P section below. Please refer to [facility] for list of inpatient medications. VITAL [...] Is Patient Clinically Ready to Transfer to [facility] or SDU?: No Discharge Planning: To [...] 1245 vte pharmacologic prophyl (more content not included)...[facility]10-08-2021 NoteHNO ID: [id number] Author: Galdino Gaona DO Service: Critical Care Author Type: Fellow Type: Procedures Filed: 04/26/2021 4:34 PM Note Text: BEDSIDE PROCEDURE NOTE CENTRAL LINE INSERTION Date/Start Time: 04/26/2021 4:33 PM Performed by: Galdino Gaona DO Authorized by: Polly Reyna MD Informed Consent Consent Obtained: Written [place] Protocol A moment to CARE was completed. [...] was applied following the usual aseptic technique. [facility] Central Line Insertion Checklist, attached to the [...] P[place] DATE: April 26, 2021 TIME: 4:32 [facility]10-08-2021 NoteHNO ID: [id number] Author: Polly Reyna MD Service: Critical Care [...] MD SICU Staff. Critical Care Time: 120 minutes[facility] NoteHNO ID: [id number] Author: ELE Rodriguez Service: Radiology Author Type: Clinical Chinese Teacher Type: Progress Notes Filed: 04/26/2021 1:47 PM [...] BY: ELE Rodriguez April 26, 2021 1:46 [facility]08-12-2021 History of Present illness Narrative* Altagracia [...] DATA REVIEWED: Yes tattoos, piercings RADIOLOGY DEPARTMENT: ; Exam(s) Completed: mr lopez/msk wwo 15cc dotarem existing l ac iv, Lizzy Perez RN PERIPHERAL IV DATA: Site assessment: Clean,Dry and Intact, Site disposition Discontinued SIGNED BY: Celeste Marinelli, A.A.SIrving,RT (R) (CT)(MR) February 28, 2021 12:12 PM [facility]* 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 Intra-abdominal and pelvic swelling, mass and lump, unspecified site Abdominal mass, unspecified abdominal location documented in this encounter [facility]* Diagnosis History of tumor- Primary Personal history of other specified diseases documented in this encounter [facility] noteNo InformationNort Urbful Other History general Narrative - Reported* Type Description Date Medical History Fatigue Medical History Gall bladder polyp Medical History Atopic dermatitis, mild Medical History DESMOID FIBROMATOSIS Surgical History C section x 3 Surgical History wisdom teeth Surgical History RIGHT ABDOMINAL WALL MASS Hospitalization History see above [employer] Other Advance Directives No Advanced Directives Records FoundDocuments on File Type Date Recorded 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 Expl 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 Advance Directive(s) 04/10/2021 12:55 PM Advance Directive(s) 03/07/2021 6:15 PM Reason for Referral Specialty Diagnoses / Procedures Referred By Contac t Referred To Contact MR IMAGING Diagnoses Desmoid Abdominal mass, unspecified abdominal location Procedures MRI PELVIS WO/W IVCON MRI PELVIS W/O & W/CONTRAST MATERIAL Melani Russell MD [address] [place] [address] Mr Imaging Referral ID Status Reason Start Date Expiration Date V isits Requested Visits Authorized [id number] Closed Auto-Generate d Referral 03/30/2022 10/27/2022 1 1 Specialty Diagnoses / Procedures Referred By Contac t Referred To Contact MR IMAGING Diagnoses Desmoid Intra-abdominal and pelvic swelling, mass and lump, unspecified site Procedures MRI ABDOMEN WO/W IVCON MRI ABDOMEN W/O & W/CONTRAST MATERIAL Melani Russell MD [address] [place] [address] Mr Imaging Referral ID Status Reason Start Date Expiration Date V isits Requested Visits Authorized [id number] Closed Auto-Generate d Referral 03/30/2022 10/27/2022 1 1 Specialty Diagnoses / Procedures Referred By Contac t Referred To Contact MR IMAGING Diagnoses History of tumor Procedures MRI PELVIS WO/W IVCON MRI PELVIS W/O & W/CONTRAST MATERIAL Melani Russell MD [address] [place] [address] Mr Imaging Referral ID Status Reason Start Date Expiration Date Visits Requested Visits Authorized [id number] Pending Review Auto-Generat ed Referral 10/28/2022 05/29/2023 1 1 Specialty Diagnoses / Procedures Referred By Contac t Referred To Contact MR IMAGING Diagnoses History of tumor Procedures MRI ABDOMEN WO/W IVCON MRI ABDOMEN W/O & W/CONTRAST MATERIAL Melani Russell MD [address] [place] [address] Mr Imaging Referral ID Status Reason Start Date Expiration Date Visits Requested Visits Authorized [id number] Pending Review Auto-Generat ed Referral 10/28/2022 05/29/2023 [...] or prosecute any alcohol or drug abuse patient.[facility] the event this information is protected by the Federal Confidentiality of Alcohol and Drug Abuse Patient Records regulations: The Federal rules restrict any use of the information to criminally investigate or prosecute any alcohol or drug abuse patient.[facility] the event this information is protected by the Federal Confidentiality of Alcohol and Drug Abuse Patient Records regulations: The Federal rules restrict any use of the information to criminally investigate or prosecute any alcohol or drug abuse patient.[facility] the event this information is protected by the Federal Confidentiality of Alcohol and Drug Abuse Patient Records regulations: The Federal rules restrict any use of the information to criminally investigate or prosecute any alcohol or drug abuse patient.[facility] the event this information is protected by the Federal Confidentiality of Alcohol and Drug Abuse Patient Records regulations: The Federal rules restrict any use of the information to criminally investigate or prosecute any alcohol or drug abuse patient.[facility] the event this information is protected by the Federal Confidentiality of Alcohol and Drug Abuse Patient Records regulations: The Federal rules restrict any use of the information to criminally investigate or prosecute any alcohol or drug abuse patient.[facility] Reason for Visit (unrecogniz ed section and content) Reason Comments Care Coordination Reason Comments Radiology MRI Specialty Diagnoses / Procedures Referred By Contac t Referred To Contact MR IMAGING Diagnoses Desmoid Intra-abdominal and pelvic swelling, mass and lump, unspecified site Procedures MRI ABDOMEN WO/W IVCON MRI ABDOMEN W/O & [place] [address] [place] [address] Mr Imaging Referral ID Status Reason Start Date Expiration Date V isits Requested Visits Authorized [id number] Closed Auto-Generate d Referral 03/30/2022 10/27/2022 1 1 Reason Comments Established Patient Reason Comments Radiology MRI Specialty Diagnoses / Procedures Referred By Contac t Referred To Contact MR IMAGING Diagnoses Intra-abdominal and pelvic swelling, mass and lump, unspecified site Procedures MRI ABDOMEN WO/W IVCON MRI,ABDOMEN,W&WO Cortez Dubois MD [address] [place] [address] [place] [address] Referral ID Status Reason Start Date Expiration Date V isits Requested Visits Authorized [id number] Closed Auto-Generate d Referral 02/14/2021 03/16/2022 1 1 Care Teams (unrecognized sec tion and content) Locksmith Relationship Specialty Start Date End Date Melani Russell MD [address] [place] [id number] Physician Hematology/Oncology 05/20/21 Chey Tamayo, JOSE [address] [place] [id number] Specialty Back End Developer Oncology 05/20/21 Locksmith Relationship Specialty Start Date End Date Melani Russell MD [address] [place] [address] [phone] Physician Hematology/Oncology 05/20/21 Claritza Tamayo, RN [address] [place] [address] [phone] Specialty Back End Developer Oncology 05/20/21 Locksmith Relationship Specialty Start Date End Date Melani Russell MD [address] [place] [address] [phone] Physician Hematology/Oncology 05/20/21 Claritza Tamayo, RN [address] [place] [address] [id number] Specialty Back End Developer Oncology 05/20/21 Locksmith Relationship Specialty Start Date End Date Melani Russell MD [address] [place] [address] [phone] Physician Hematology/Oncology 05/20/21 Claritza Tamayo RN [address] [place] [address] [phone] Specialty Back End Developer Oncology 05/20/21 Locksmith Relationship Specialty [place] [address] [place] [address] Physician Hematology/Oncology 05/20/21 [place] [address] [place] [address] Specialty Back End Developer Hematology/Oncology 06/10/22 INFORMATION SOURCE (unrecogn ized section and content) DATE CREATED AUTHOR 04/23/2022 [facility] DATE CREATED AUTHOR AUTHOR'S ORGANIZ ATION 11/02/2022 [facility] DATE CREATED AUTHOR AUTHOR'S ORGANIZ ATION 08/25/2023 [facility] Specialists [facility] FOR RECORDS PERTAINING TO PATIENTS WHO ARE [...] BE BASED ON THE PRIMARY CLINICAL RECORDS. [employer] provides no warranty or guarantee of the accuracy or completeness of information in this document.
--- NOTE | 2023-08-28 09:48 | US_ITS ---
[address] [address] Patient Name: OSCAR MELO MRN: [facility]:[id number] date: 1985 Sex: F Assigned Patient Location: US Current Patient Location: US Accession/Order Number: [id number] Exam Date: 08/28/2023 10:02 Report Date: 08/28/2023 11:20 At the request of: SUKHJINDER WIN Procedure: US OB growth EXAMINATION: US OB growth HISTORY: Excessive Growth Affecting Management Of COMPARISON: 07/31/2023 FINDINGS: Heart Rate: 150.0 bpm Amniotic Fluid Volume: 13.6 cm Number: 1.0 Position: Cephalic presentation, longitudinal lie Maximum Vertical Pocket: 4.4 cm cm 3.3 cm cm 2.7 cm cm 3.1 cm cm BIOMETRY: BPD: 8.8 cm cm; 35 weeks 3 days; >97% HC: 30.9 cmcm; 34 weeks 3 days , 79% AC: 28.6 cm cm; 32 weeks 4 days, 68% FL: 6.0 cm cm; 31 weeks 1 days; 17.1 % % EFW: 2015.9 grams, 4 lbs. 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 Otherwise normal interval growth Electronically authenticated by: SISI HURD Date: 08/28/2023 11:20
== END 2023-08-28 09:29 | disposition home or self-care (01) ==
LOC: US 09:28
PROVIDERS: PCP Internal Medicine; Visit Provider Obstetrics & Gynecology
DX: O36.63X1 Maternal care for excessive fetal growth, third trimester, fetus 1 (principal); Z3A.32 32 weeks gestation of pregnancy
CPT/HCPCS: 76816

== ENCOUNTER 2023-09-25 09:45 | Outpatient (OUT) | payer OTHER, SELFPAY ==
--- OUTSIDE RECORDS SUMMARY | 2023-09-25 09:31 | XMS_ITS | CCD ---
Author Name Unknown Address [address] [place] [address] Organization [facility] Care Team Providers Care Statue Maker Name Role Phone Drew JAMES, Melani Unavailable Yariel GARCIA, Chey Unavailable Yariel GARCIA, Claritza Andrade Unavailable Melani Russell MD Unavailable Claritza Tamayo RN Unavailable ALEX URBANO Referring Unavailable ALTAHAWI, FAYSAL Attending Unavailable ALTAHAWI, FAYSAL Admitting Unavailable RUSSELL, MELANI Attending Unavailable RUSSELL, MELANI Referring Unavailable RUSSELL, MELANI Referring Unavailable RUSSELL, MELANI Referring Unavailable RUSSELL, MELANI Referring Unavailable Shaun Valentine Unavailable DR SHAUN VALENTINE Admitting Unavailable SERGE, DR KINCAID Attending Unavailable SERGE, DR KINCAID Primary Care Unavailable SERGE, DR KINCAID Consulting Unavailable Melani Russell MD Unavailable Suzanna Chaidez RN Unavailable Unavailable Primary Care Provider Unavailabl e KAILEE WINY Attending Unavailable AUDELIA, SUKHJINDER Attending Unavailable AUDELIAKAILEEY Attending Unavailable AUDELIASUKHJINDER PARMAR Attending Unavailable AUDELIASUKHJINDER Francis Attending Unavailable AUDELIASUKHJINDER PARMAR Attending Unavailable ADRIANNE MERCHANT Attending Unavailable Allergies Allergy Classification Reported Allergen(s) Allergy Type Date of Onset Reaction(s) Facility (7 sources) Codeine; Translations: [CODEINE] Drug Allergy 1 GI Upset [facility] (7 sources) Adhesive Tape-Silicones; Translations: [ADHESIVE TAPE-SILICONES] Drug Allergy 1 Other: See Comments [facility] (2 sources) Adhesive agent Drug allergy Unknown [facility] Other (2 sources) Codeine Drug Allergy nausea [employer] Other (1 source) Codeine Drug Allergy 1 [facility] (1 source) Desonide Drug Allergy 1 [facility] Medications Current Medications Medication Drug Class(es) [...] connective and other soft tissue] Onset: 04-26-2021 1 Episodic Other circulatory disease (1 source) Other [...] 10-27-2022 BASO # 0.1 103/ul Normal 0.0-0.1 [facility] Comment on above: Performed By: #### C BC #### [facility] [address] [place] [address] Dr. Rancho Cobos Basophils/100 WBC (Bld) 0.9 % Normal 0.2-2.0 [facility] Comment on above: Performed By: #### C BC #### [facility] [address] [place] [address] Dr. Rancho Cobos EO # 0.1 103/ul Normal 0.0-0.7 [facility] Comment on above: Performed By: #### C BC #### [facility] [address] [place] [address] Dr. Rancho Cobos Eosinophils/100 WBC (Bld) 1.4 % Normal 0.9-7.0 [facility] Comment on above: Performed By: #### C BC #### [facility] [address] [place] [address] Dr. Rancho Cobos Erythrocyte distribution width (RBC) [Ratio] 11.8 % Normal 11.0-15.0 [facility] Comment on above: Performed By: #### C BC #### [facility] [address] [place] [address] Dr. Rancho Cobos Hematocrit (Bld) [Volume fraction] 38.5 % Normal 36.0-48.0 [facility] Comment on above: Performed By: #### C BC #### [facility] [address] [place] [address] Dr. Rancho Cobos Hemoglobin (Bld) [Mass/Vol] 13.3 g/dL Normal 12.0-16.0 [facility] Comment on above: Performed By: #### C BC #### [facility] [address] [place] [address] Dr. Rancho Cobos IG # 0.01 10e3/ul Normal 0.00-0.03 [facility] Comment on above: Performed By: #### C BC #### [facility] [address] [place] [address] Dr. Rancho Cobos IG % 0.2 % Normal 0.0-0.5 [facility] Comment on above: Performed By: #### C BC #### [facility] [address] [place] [address] Dr. Rancho Cobos LYMPH # 1.7 103/ul Normal 1.2-3.8 [facility] Comment on above: Performed By: #### C BC #### [facility] [address] [place] [address] Dr. Rancho Cobos Lymphocytes/100 WBC (Bld) 31.2 % Normal 20.5-60.0 [facility] Comment on above: Performed By: #### C BC #### [facility] [address] [place] [address] Dr. Rancho Cobos MANUAL DIFF REQ NO Normal [facility] Comment on above: Performed By: #### C BC #### [facility] [address] [place] [address] Dr. Rancho Cobos MCH (RBC) [Entitic mass] 31.9 pg Normal 26.7-34.0 [facility] Comment on above: Performed By: #### C BC #### [facility] [address] [place] [address] Dr. Rancho Cobos MCHC (RBC) [Mass/Vol] 34.5 g/dL Normal 29.9-35.2 [facility] Comment on above: Performed By: #### C BC #### [facility] [address] [place] [address] Dr. Rancho Cobos MCV (RBC) [Entitic vol] 92.3 fL Normal 81.0-99.0 [facility] Comment on above: Performed By: #### C BC #### [facility] [address] [address] [address] Rancho Cobos MONO # 0.3 103/ul Normal 0.3-0.8 [facility] Comment on above: Performed By: #### C BC #### [facility] [address] [address] [address] Rancho Cobos Monocytes/100 WBC (Bld) 5.2 % Normal 1.7-12.0 [facility] Comment on above: Performed By: #### C BC #### [facility] [address] [place] [address] Dr. Rancho Cobos NEUT # 3.4 103/ul Normal 1.4-6.5 [facility] Comment on above: Performed By: #### C BC #### [facility] [address] [place] [address] Dr. Rancho Cobos Neutrophils/100 WBC (Bld) 61.1 % Normal 43.0-75.0 [facility] Comment on above: Performed By: #### C BC #### [facility] [address] [place] [address] Dr. Rancho Cobos Platelet mean volume (Bld) [Entitic vol] 9.4 fL Critically low 9.5-13.5 [facility] Comment on above: Performed By: #### C BC #### [facility] [address] [place] [address] Dr. Rancho Cobos PLT 261 103/ul Normal 150-450 [facility] Comment on above: Performed By: #### C BC #### [facility] [address] [place] [address] Dr. Rancho Cobos RBC 4.17 106/ul Critically low 4.20-5.40 [facility] Comment on above: Performed By: #### C BC #### [facility] [address] [place] [address] Dr. Rancho Cobos WBC 5.6 103/ul Normal 4.0-11.0 [facility] Comment on above: Performed By: #### C BC #### [facility] [address] [place] [address] Dr. Rancho Cobos LIPID PROFILEon 10-27-2022 CHOL-HDL RATIO NORM SEE BELOW Normal [facility] Comment on above: Result Comment: 3.3 - 4.4 LOW RISK 4.4 - 7.1 AVERAGE RISK 7.1 - 11.0 MODERATE RISK >11.0 HIGH RISK Performed By: #### C MP, LIPID, TSH #### [facility] [address] [address] [address] Rancho Cobos Cholesterol [Mass/Vol] 162 mg/dL Normal <=200 [facility] Comment on above: Performed By: #### C MP, LIPID, TSH #### [facility] [address] [address] [address] Rancho Cobos Cholesterol in HDL [Mass/Vol] 56 mg/dL Normal 40-60 [facility] Comment on above: Performed By: #### C MP, LIPID, TSH #### [facility] [address] [address] [address] Rancho oCbos Cholesterol in LDL [Mass/Vol] 97.0 mg/dL Normal [facility] Comment on above: Performed By: #### C MP, LIPID, TSH #### [facility] [address] [address] [address] Rancho Cobos Cholesterol.total/ Cholesterol in HDL [Mass ratio] 2.9 {ratio} Normal [facility] Comment on above: Performed By: #### C MP, LIPID, TSH #### [facility] [address] [address] [address] Rancho Cobos HDL NORMAL > or = 60 mg/dl - LO W CARDIOVASCULAR RISK <40 mg/dl - HIGH CARDIOVASCULAR RISK Normal [facility] Comment on above: Performed By: #### C MP, LIPID, TSH #### [facility] [address] [address] [address] Racnho Cobos LDL CALC NORMAL SEE BELOW Normal [facility] Comment on above: Result Comment: <100 mg/dl OPTIMAL 100 - 129 mg/dl NEAR OR ABOVE OPTIMAL 130 - 159 mg/dl BORDERLINE HIGH 160 - 189 mg/dl HIGH >190 mg/dl VERY HIGH Performed By: #### C MP, LIPID, TSH #### [facility] [address] [address] [address] Rancho Cobos Triglyceride [Mass/Vol] 45 mg/dL Normal <=150 [facility] Comment on above: Performed By: #### C MP, LIPID, TSH #### [facility] [address] [address] [address] Rancho Cobos VLDL CALC 9.0 mg/dL Normal [facility] Comment on above: Performed By: #### C MP, LIPID, TSH #### [facility] [address] [address] [address] Rancho Cobos PROF 14(COMP METB)on 023 Albumin [Mass/Vol] 4.0 g/dL Normal 3.4-5.0 [facility] Comment on above: Performed By: #### C MP, LIPID, TSH #### [facility] [address] [place] [address] Dr. Rancho Cobos Albumin/Globulin [Mass ratio] 1.2 {ratio} Normal [facility] Comment on above: Performed By: #### C MP, LIPID, TSH #### [facility] [address] [place] [address] Dr. Rancho Cobos ALP [Catalytic activity/Vol] 34 U/L Critically low 46-116 [facility] Comment on above: Performed By: #### C MP, LIPID, TSH #### [facility] [address] [place] [address] Dr. Rancho Cobos ALT [Catalytic activity/Vol] 24 U/L Normal 14-59 [facility] Comment on above: Performed By: #### C MP, LIPID, TSH #### [facility] [address] [address] [address] Rancho Cobos Anion gap [Moles/Vol] 12.1 mmol/L Normal [facility] Comment on above: Performed By: #### C MP, LIPID, TSH #### [facility] [address] [address] [address] Rancho Cobos AST [Catalytic activity/Vol] 17 U/L Normal 15-37 [facility] Comment on above: Performed By: #### C MP, LIPID, TSH #### [facility] [address] [address] [address] Rancho Cobos Bilirubin [Mass/Vol] 0.5 mg/dL Normal 0.2-1.0 [facility] Comment on above: Performed By: #### C MP, LIPID, TSH #### [facility] [address] [address] [address] Rancho Cobos Calcium [Mass/Vol] 9.2 mg/dL Normal 8.5-10.1 [facility] Comment on above: Performed By: #### C MP, LIPID, TSH #### [facility] [address] [address] [address] Rancho Cobos Chloride [Moles/Vol] 107 mmol/L Normal 98-107 [facility] Comment on above: Performed By: #### C MP, LIPID, TSH #### [facility] [address] [place] [address] Dr. Rancho Cobos CO2 [Moles/Vol] 28.5 mmol/L Normal 21.0-32.0 [facility] Comment on above: Performed By: #### C MP, LIPID, TSH #### [facility] [address] [place] [address] Dr. Rancho Cobos Creatinine [Mass/Vol] 0.72 mg/dL Normal 0.55-1.02 [facility] Comment on above: Performed By: #### C MP, LIPID, TSH #### [facility] [address] [place] [address] Dr. Rancho Cobos EGFR-AF SLOVAK >60 Normal >=60 [facility] Comment on above: Performed By: #### C MP, LIPID, TSH #### [facility] [address] [place] [address] Dr. Rancho Cobos EGFR-NON AF SLOVAK >60 Normal >=60 [facility] Comment on above: Performed By: #### C MP, LIPID, TSH #### [facility] [address] [place] [address] Dr. Rancho Cobos Globulin (S) [Mass/Vol] 3.4 g/dL Normal [facility] Comment on above: Performed By: #### C MP, LIPID, TSH #### [facility] [address] [place] [address] Dr. Rancho Cobos Glucose [Mass/Vol] 92 mg/dL Normal 74-106 [facility] Comment on above: Performed By: #### C MP, LIPID, TSH #### [facility] [address] [place] [address] Dr. Rancho Cobos Potassium [Moles/Vol] 4.6 mmol/L Normal 3.5-5.1 [facility] Comment on above: Performed By: #### C MP, LIPID, TSH #### [facility] [address] [place] [address] Dr. Rancho Cobos Protein [Mass/Vol] 7.4 g/dL Normal 6.4-8.2 [facility] Comment on above: Performed By: #### C MP, LIPID, TSH #### [facility] [address] [place] [address] Dr. Rancho Cobos Sodium [Moles/Vol] 143 mmol/L Normal 136-145 [facility] Comment on above: Performed By: #### C MP, LIPID, TSH #### [facility] [address] [place] [address] Dr. Rancho Cobos Urea nitrogen [Mass/Vol] 18.0 mg/dL Normal 7.0-18.0 [facility] Comment on above: Performed By: #### C MP, LIPID, TSH #### [facility] [address] [place] [address] Dr. Rancho Cobos Urea nitrogen/Creatinin e [Mass ratio] 25.0 mg/mg Normal [facility] Comment on above: Performed By: #### C MP, LIPID, TSH #### [facility] [address] [place] [address] Dr. Rancho Cobos TSHon 10-27-2022 TSH 1.005 uIU/mL Normal 0.358-3.740 [facility] Comment on above: Performed By: #### C MP, LIPID, TSH #### [facility] [address] [place] [address] Dr. Rancho Cobos MRI ABDOMEN WO/W IVCONon [...] suspicious marrow signal abnormality. Lower chest: Unremarkable. Can Crimper (localizer) images: No additional findings. IMPRESSION: Evolving changes of RIGHT rectus abdominis muscle ablation without local recurrence. No metastatic disease in abdomen or pelvis Strawberry Grower: ANEL Transcribe Date/Time: Apr 22 2022 10:29A Dictated by : LIBRADO JOAQUIN DO This examination was interpreted and the report reviewed and electronically signed by: CANELO EDMONDSON MD on Apr 22 2022 12:49PM EST [id number] Normal [facility] MRI PELVIS WO/W IVCONon 10-0 MRI [...] suspicious marrow signal abnormality. Lower chest: Unremarkable. Can Crimper (localizer) images: No additional findings. IMPRESSION: Evolving changes of RIGHT rectus abdominis muscle ablation without local recurrence. No metastatic disease in abdomen or pelvis Strawberry Grower: ANEL Transcribe Date/Time: Apr 22 2022 10:29A Dictated by : LIBRADO JOAQUIN, This examination was interpreted and the report reviewed and electronically signed by: CANELO EDMONDSON MD on Apr 22 2022 12:49PM EST [id number] Normal [facility] CNPNon 10-28-2021 CNPN Telephone (HEMCA3) OSCAR PINEDA ([id number]) 1985 F Date Time Provider Department 10/28/21 MELANI RUSSELL [facility]3 During your visit today, we recorded the following information about you: Brittany Avendaño ADM 10/28/2021 10:04 AM Signed Oscar Pineda is calling Melani Russell MD today regarding Care Coordination,calling with questions about with her condition. Patient has been identified by name and birthdate. Duration of symptoms: N/A Requesting response back: call on cell [phone] (home) [phone] (cell) Brittany Avendaño [facility] October 28, [address] [facility] 10/30/2021 3:25 PM Signed Patient calling stating she has not received a call back, Please call @ [phone] Melani Russell MD 11/19/2021 10:20 AM Signed This has been addressed through an [facility] message. Melani Russell MD, PhD Staff, Hematology and Medical Oncology Allergies As of Date: 10/28/2021 Noted Allergy Reaction CODEINE 02/01/2021 8 - GI Upset ADHESIVE TAPE-SILICONES 02/14/2021 14 - Other: See Comments Comments: Blisters Date Reviewed: 09/27/2021 Reviewed by: Aliya Jean Baptiste RN - Fully Assessed Reason for Visit: Care Coordination [4351] Prescriptions as of 11/19/2021 - sulindac (CLINORIL) [...] Encounter Status:Closed by BRITTANY LIAO on 11/01/21 [facility] CNOVSPon 09-27-2021 CNOVSP Visit (SP) Office ([facility]4) SARAVANANOSCAR GRACE ([id number]) 1985 F Date Time Provider Department 09/27/21 9:00 AM MELANI RUSSELL [facility]EM[facility]4 During your visit today, we recorded the following information about you: Pulse Respiration Blood pressure Weight 65/minute 20/minute 149/67 77.6 kg Melani Russell MD 10/07/2021 12:24 PM Signed [facility] ESTABLISHED PATIENT VISIT PATIENT NAME: Oscar Pineda [...] Melani Pérez MD Internal Medicine Resident, PGY-1 [facility] 09/27/2021 SOLID TUMOR STAFF: ATTENDING PHYSICIAN NOTE [...] No Does patient want to see a Site Director? No (yes to any of (more content not included)... Normal [facility] MRI ABDOMEN WO/W IVCONon MRI ABDOMEN [...] diffusion weighted and T1 weighted in- and yib-tp-[id number] images were obtained. Then, using a 3-D [...] muscle mass, without evidence for residual/recurrent disease. Strawberry Grower: ANEL Transcribe Date/Time: Sep 20 2021 4:49P Dictated by : CHRIS MILIAN MD This examination was interpreted and the report reviewed and electronically signed by: CHRIS MILIAN MD on Sep 20 2021 4:58PM EST [id number] Normal [facility] MRI PELVIS WO/W IVCONon 03-0 MRI [...] diffusion weighted and T1 weighted in- and scp-lj-crepo images were obtained. Then, using a 3-D [...] muscle mass, without evidence for residual/recurrent disease. Strawberry Grower: ANEL Transcribe Date/Time: Sep 20 2021 4:49P Dictated by : CHRIS MILIAN MD This examination was interpreted and the report reviewed and electronically signed by: CHRIS MILIAN MD on Sep 20 2021 4:58PM EST [id number] Normal [facility] CNPNon 08-09-2021 CNPN Telephone ([facility]3) OSCAR PINEDA ([id number]) 1985 F Date Time Provider Department 08/09/21 MELANI RUSSELL [facility]3 During your visit today, we recorded the following information about you: Marva Gualberto Adm 08/09/2021 11:32 AM Signed Oscar Pineda is calling Melani Russell MD today regarding Care Coordination (appointment question). Patient wants to know if Dr. Russell would prefer to see her after her 08/23 MRI. She is scheduled for an OV on 08/16. Patient has been identified by name and birthdate. Duration of symptoms: N/A Requesting response back: call on cell [phone] (home) [phone] (cell) Marva Gualberto Adm August 09, 2021 Chey Tamayo RN 08/09/2021 4:42 PM Signed Returned call to patient and informed her that moving her visit with Dr. Russell after the MRI would be best to establish a plan of care. Patient was appreciative of return call and information. Chey Tamayo RN Clinical Asst August 09, 2021 Allergies As of Date: 08/09/2021 Noted Allergy Reaction CODEINE 02/01/2021 8 - GI Upset ADHESIVE TAPE-SILICONES 02/14/2021 14 - Other: See Comments Comments: Blisters Date Reviewed: 04/30/2021 Reviewed by: Magda Rose RN - Fully Assessed Reason for Visit: Care Coordination [3491] Cmt: appointment question Prescriptions as of 08/09/2021 [...] Encounter Status:Closed by CLARITZA TAMAYO on 08/09/21 [facility] Nishant 05-22-2021 CNPN Telephone (GMINE) OSCAR PINEDA ([id number]) 1985 F Date Time Provider Department 05/22/21 MELIDA QUINTERO During your visit today, we recorded the following information about you: LANETTE De Leon 05/22/2021 2:32 PM Signed Patient name and was confirmed at initiation of discussion. Oscar Pineda's Common Hereditary Cancers Panel through [facility] was negative for a pathogenic variant. Please [...] Encounter Status:Closed by MELIDA QUINTERO on 05/22/21 [facility]15-2021 [facility] OSCAR PINEDA ([id number]) 1985 F Date Time Provider Department 05/15/21 MELANI RUSSELL [facility] During your visit today, [...] N/A Requesting response back: call on cell [phone] (home) [phone] (cell) Marva Burciaga Adm May 15, 2021 [...] Status:Closed by MELANI RUSSELL on 05/17/21 Normal [facility] Molecular Teston 2020 Test Common Hereditary Cancers Panel Normal [facility] Comment on above: Performed By: #### M OL13 ####[facility] [id number] [place] [address] Test Results View results in Scan zahraa Documents link when available. Normal [facility] Comment on above: Performed By: #### M OL13 ####[facility] [id number] [place] [address] Nishant 05-01-2021 NGUYENN Telephone (JULIANN) OSCAR PINEDA ([id number]) 1985 F Date Time Provider Department 05/01/21 [...] questions or concerns. Mindy Farley Genetic Counselor Wood Turning Lathe Operator Allergies As of Date: 05/01/2021 Noted Allergy [...] Status:Closed by MINDY FARLEY on 05/01/21 Normal [facility] CBCon 04-30-2021 Absolute nRBC <0.01 Normal <0.01 [facility] Comment on above: Performed By: #### C BC ####[facility] [id number] [place], [place] [phone] Erythrocyte distribution width (RBC) [Ratio] 12.0 % Normal 11.5-15.0 [facility] Comment on above: Performed By: #### C BC ####[facility] [address] [place], [place] [phone] Hematocrit (Bld) [Volume fraction] 33.8 % Low 36.0-46.0 [facility] Comment on above: Performed By: #### C BC ####[address] [address] [place] [place], [place] [phone] Hemoglobin (Bld) [Mass/Vol] 11.8 g/dL Normal 11.5-15.5 [facility] Comment on above: Performed By: #### C BC ####[address] [address] [address] [place], [place] [phone] MCH 31.5 pG Normal 26.0-34.0 [facility] Comment on above: Performed By: #### C BC ####[address] [place], [place] [phone] MCHC (RBC) [Mass/Vol] 34.9 g/dL Normal 30.5-36.0 [facility] Comment on above: Performed By: #### C BC ####[address] [address] [place] [place], [place] [phone] MCV (RBC) [Entitic vol] 90.1 fL Normal 80.0-100.0 [facility] Comment on above: Performed By: #### C BC ####[address] [address] [place] [place], [place] [phone] Platelet mean volume (Bld) [Entitic vol] 9.6 fL Normal 9.0-12.7 [facility] [facility] Comment on above: Performed By: #### C BC ####[place] [address] [address], [place] [phone] Platelets (Bld) [#/Vol] 182 10*3/uL Normal 150-400 [facility] Comment on above: Performed By: #### C BC ####[place] [address]CS[address] [place], [place] [phone] RBC (Bld) [#/Vol] 3.75 10*6/uL Low 3.90-5.20 [facility] Comment on above: Performed By: #### C BC ####[facility] [address] [place], [place] [phone] WBC (Bld) [#/Vol] 12.88 10*3/uL High 3.70-11.00 [facility] Comment on above: Performed By: #### C BC ####[facility] [address] [place], [place] [phone] CNDSon 04-30-2021 CNDS HNO ID: [id number] Author: Katty Logan APRN.RFID STRATEGIST Service: Critical Care Author Type: Nurse Practitioner [...] air KIMBER (more content not included)... Normal [facility] THERAPY NTon 04-30-2021 THERAPY NT HNO ID: [id number] Author: Licha Llanes, PT Service: Physical Therapy Author Type: Physical Therapist Type: Therapy (PT/OT/Speech/Resp) Filed: 04/30/2021 3:02 PM Note Text: Physical Therapy Treatment SERVICE DATE: 04/30/2021 SERVICE TIME: 1342 to 1351 ROOM: [place] [address] Recommended Discharge Disposition: Home Recommended Discharge Disposition [...] gait and mobility-other Interventions Provided: Gait Training (28922) Gait Training (68525) Treatment Minutes: 9 $ Gait Training (30388) Billed Units: 1 unit Training AND education provided in: Discharge planning, Energy conservation, Exercise program, Expected functional level, Falls prevention, Gait pattern, reduction of deviations, Home safe (more content not included)... Normal [facility] ALLIED HEALTHon 04-29-2021 ALLIED HEALTH HNO ID: [id number] Author: Ana Watters RN Service: Healing Service [...] 29, 2021 TIME: 8:11 AM CONTACT #: [phone] Normal [facility] APTTon 04-29-2021 aPTT Coag (Bld) [Time] 26.4 s Normal 23.0-32.4 [facility] Comment on above: Result Comment: Unfr [...] laboratory APTT reagent in use throughout the [facility]. 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 Last discharge within 30 days: No Advance Directive: Current Advance Directive: None Management Nurse Rn Attempted to Assist with AD Completion: No [...] None Has the Patient Been in a Intermediate Facility in the Past 30 days?: No SOCIAL: Living Arrangements: Home Lives With: Spouse Primary Contact: Extended Emergency Contact Information Primary Emergency Contact: LAURA PINEDA Address: [address] [place] [address] [facility] Mobile Relation: Spouse Supportive Patient Contact:: Yes Contact Resources: Family Family Name/Phone: LAURA PINEDA (Spouse) [phone] Caregiver AssessmentCaregiver is ready, willing and able [...] Mostly I feel financially burdened by my hls-in-rlkrtv expenses for my prescription medication:: 0 - Disagree Mostly Risk Score: 0 Patient is categorized as: Low risk < 2 Med Adherance Assessement not completed due to: No RECEIVING ASSOCIATE STORE meds Are you interested in bedside delivery of your medications? Yes Is Patient Psychosocially Complex?: No ASSESSMENT AND PLAN: Medical Needs: Medical Needs: None Psychosocial Needs: Psychosocial Needs: None FREEDOM OF CHOICE EXPLAINED: [place] of Choice Given: No Reason Not Given: No placements necessary POTENTIAL TRANSITION PLANS No Services Indicated SIGNATURE: Rocio Bear RN MSN PATIENT NAME: Oscar Pineda DATE: April 29, 2021 TIME: 11:53 AM PAGER/CONTACT #: [phone] Normal [facility] CBCon 04-29-2021 Absolute nRBC <0.01 Normal <0.01 [facility] Comment on above: Performed By: #### C BC, MG1, PHOS, PTT, CMP, PT ####[facility] [place], [place] [phone] Erythrocyte distribution width (RBC) [Ratio] 11.8 % Normal 11.5-15.0 [facility] Comment on above: Performed By: #### C BC, MG1, PHOS, PTT, CMP, PT ####[place] [address] [address] [place] [phone] Hematocrit (Bld) [Volume fraction] 37.0 % Normal 36.0-46.0 [facility] Comment on above: Performed By: #### C BC, MG1, PHOS, PTT, CMP, PT ####[place] [address] [address] [place] [phone] Hemoglobin (Bld) [Mass/Vol] 12.3 g/dL Normal 11.5-15.5 [facility] Comment on above: Performed By: #### C BC, MG1, PHOS, PTT, CMP, PT ####[place] [phone] MCH 30.9 pG Normal 26.0-34.0 [facility] Comment on above: Performed By: #### C BC, MG1, PHOS, PTT, CMP, PT ####[place] [address] [place] [phone] MCHC (RBC) [Mass/Vol] 33.2 g/dL Normal 30.5-36.0 [facility] Comment on above: Performed By: #### C BC, MG1, PHOS, PTT, CMP, PT ####[place] [address] [address] [place] [phone] MCV (RBC) [Entitic vol] 93.0 fL Normal 80.0-100.0 [facility] Comment on above: Performed By: #### C BC, MG1, PHOS, PTT, CMP, PT ####[place] [address] [address] [place] [phone] Platelet mean volume (Bld) [Entitic vol] 10.0 fL Normal 9.0-12.7 [facility] Comment on above: Performed By: #### C BC, MG1, PHOS, PTT, CMP, PT ####[facility] [place], [place] [phone] Platelets (Bld) [#/Vol] 188 10*3/uL Normal 150-400 [facility] Comment on above: Performed By: #### C BC, MG1, PHOS, PTT, CMP, PT ####[place] [address] [address] [place], [place] [phone] RBC (Bld) [#/Vol] 3.98 10*6/uL Normal 3.90-5.20 [facility] Comment on above: Performed By: #### C BC, MG1, PHOS, PTT, CMP, PT ####[place] [address] [place], [place] [phone] WBC (Bld) [#/Vol] 11.41 10*3/uL High 3.70-11.00 [facility] Comment on above: Performed By: #### C BC, MG1, PHOS, PTT, CMP, PT ####[place] [address] [place], [place] [phone] Comp Metabolic Panelon 04-29 Albumin [Mass/Vol] 3.5 g/dL Low 3.9-4.9 [facility] Comment on above: Performed By: #### C BC, MG1, PHOS, PTT, CMP, PT ####[place] [id number]CS[address] [place], [place] [phone] ALP [Catalytic activity/Vol] 43 U/L Normal 34-123 [facility] Comment on above: Performed By: #### C BC, MG1, PHOS, PTT, CMP, PT ####[place] [id number]CS[address] [place], [place] [phone] ALT [Catalytic activity/Vol] 56 U/L High 7-38 [facility] Comment on above: Performed By: #### C BC, MG1, PHOS, PTT, CMP, PT ####[facility]CS[address] [place], [place] [phone] Anion gap [Moles/Vol] 14 mmol/L Normal 9-18 [facility] Comment on above: Performed By: #### C BC, MG1, PHOS, PTT, CMP, PT ####[facility]CS[address] [place], [place] [phone] AST [Catalytic activity/Vol] 171 U/L High 13-35 [facility] Comment on above: Performed By: #### C BC, MG1, PHOS, PTT, CMP, PT ####[place] [address] [address] [place], [place] [phone] Bilirubin [Mass/Vol] 0.6 mg/dL Normal 0.2-1.3 [facility] Comment on above: Performed By: #### C BC, MG1, PHOS, PTT, CMP, PT ####[place] [address] [place], [place] [phone] Calcium [Mass/Vol] 8.3 mg/dL Low 8.5-10.2 [facility] Comment on above: Performed By: #### C BC, MG1, PHOS, PTT, CMP, PT ####[place] [id number]CS[address] [place], [place] [phone] Chloride [Moles/Vol] 100 mmol/L Normal 97-105 [facility] Comment on above: Performed By: #### C BC, MG1, PHOS, PTT, CMP, PT ####[facility]CS[address] [place], [place] [phone] CO2 [Moles/Vol] 25 mmol/L Normal 22-30 [facility] Comment on above: Performed By: #### C BC, MG1, PHOS, PTT, CMP, PT ####[place] [address]CS[address] [place], [place] [phone] Creatinine [Mass/Vol] 0.78 mg/dL Normal 0.58-0.96 [facility] Comment on above: Performed By: #### C BC, MG1, PHOS, PTT, CMP, PT ####[facility] [place], [place] [phone] eGFR- Amer. >60 Normal [facility] Comment on above: Performed By: #### C BC, MG1, PHOS, PTT, CMP, PT ####[facility] [place], [place] [phone] eGFR-All Other Races >60 Normal [facility] Comment on above: Result Comment: eGFR [...] C BC, MG1, PHOS, PTT, CMP, PT ####[facility] [place], [place] [phone] Glucose [Mass/Vol] 167 mg/dL High 74-99 [facility] Comment on above: Result Comment: The [place] Diabetes Association (ADA) provides guidance for cutoff [...] Standards of Medical Care in Diabetes 2016, [place] [employer]. Diabetes Care. 2016.39(Suppl 1). Performed By: #### C BC, MG1, PHOS, PTT, CMP, PT ####[facility]ClevelandPeacht[place], [place] [phone] Potassium [Moles/Vol] 3.9 mmol/L Normal 3.7-5.1 [facility] Comment on above: Performed By: #### C BC, MG1, PHOS, PTT, CMP, PT ####[place] [address]CKrist[place] [phone] Protein [Mass/Vol] 6.0 g/dL Low 6.3-8.0 [facility] Comment on above: Performed By: #### C BC, MG1, PHOS, PTT, CMP, PT ####[place] [address] [address] [place], [place] [phone] Sodium [Moles/Vol] 139 mmol/L Normal 136-144 [facility] Comment on above: Performed By: #### C BC, MG1, PHOS, PTT, CMP, PT ####[place] [address] [address] [place] [phone] Urea nitrogen [Mass/Vol] 9 mg/dL Normal 7-21 [facility] Comment on above: Performed By: #### C BC, MG1, PHOS, PTT, CMP, PT ####[place] [id number]CS[address] [place], [place] [phone] GASV + ALLon 04-29-2021 Base Excess 4 mmol/L Normal [facility] Comment on above: Performed By: #### V ALLBG ####[facility]CS[address] [place], [place] [phone] Calcium [Moles/Vol] 1.15 mmol/L Normal 1.08-1.30 [facility] Comment on above: Performed By: #### V ALLBG ####[facility]CS[address] [place], [place] [phone] Carboxyhemoglobin, Ziyad 1.2 % Normal <2.1 [facility] Comment on above: Performed By: #### V ALLBG ####[place] [address] [address] [place] [phone] CO2 [Moles/Vol] 31 mmol/L High 25-29 [facility] Comment on above: Performed By: #### V ALLBG ####[place] [address] [address] [place] [phone] Glucose [Mass/Vol] 178 mg/dL High 60-105 [facility] Comment on above: Performed By: #### V ALLBG ####[place] [address] [place] [phone] HCO3 (Bld) [Moles/Vol] 29 mmol/L High 24-28 [facility] Comment on above: Performed By: #### V ALLBG ####[place] [address] [place] [phone] Lactate [Moles/Vol] 1.3 mmol/L Normal 0.5-2.2 [facility] Comment on above: Performed By: #### V ALLBG ####[place] [address] [address] [place] [phone] Methemoglobin 0.7 % Normal <1.6 [facility] Comment on above: Performed By: #### V ALLBG ####[place] [address] [place] [phone] O2 Administered 40% Normal [facility] Comment on above: Performed By: #### V ALLBG ####[place] [address] [place] [phone] pCO2 51 mm Hg Normal 42-55 [facility] Comment on above: Performed By: #### V ALLBG ####[place] [address] [place] [phone] pCO2, Temp Correct 51 mm Hg Normal 42-55 [facility] Comment on above: Performed By: #### V ALLBG ####[facility]CS[address] [place], [place] [phone] Potassium [Moles/Vol] 4.0 mmol/L Normal 3.5-5.0 [facility] Comment on above: Performed By: #### V ALLBG ####[facility]CS[address] [place], [place] [phone] Base Excess 3 mmol/L Normal [facility] Comment on above: Performed By: #### V ALLBG ####[facility]CS[address] [place], [place] [phone] Blood Gas Comm, Ziyad . Normal [facility] Comment on above: Performed By: #### V ALLBG ####[place] [address] [place], [place] [phone] Body temperature 98.6 [degF] Normal [facility] Comment on above: Performed By: #### V ALLBG ####[place] [address] [place], [place] [phone] Calcium [Moles/Vol] 1.18 mmol/L Normal 1.08-1.30 [facility] Comment on above: Performed By: #### V ALLBG ####[facility]CS[address] [place], [place] [phone] Carboxyhemoglobin, Ziyad 0.9 % Normal <2.1 [facility] Comment on above: Performed By: #### V ALLBG ####[facility] [address]CS[address] [place], [place] [phone] CO2 [Moles/Vol] 30 mmol/L High 25-29 [facility] Comment on above: Performed By: #### V ALLBG ####[facility]CS[address] [place], [place] [phone] Glucose [Mass/Vol] 193 mg/dL High 60-105 [facility] Comment on above: Performed By: #### V ALLBG ####[facility]CS[address] [place], [place] [phone] HCO3 (Bld) [Moles/Vol] 28 mmol/L Normal 24-28 [facility] Comment on above: Performed By: #### V ALLBG ####[place] [address] [place], [place] [phone] Hematocrit (Bld) [Volume fraction] 39.0 % Normal 36.0-46.0 [facility] Comment on above: Performed By: #### V ALLBG ####[place] [address] [place] [phone] Hemoglobin (Bld) [Mass/Vol] 12.7 g/dL Normal 11.5-15.5 [facility] Comment on above: Performed By: #### V ALLBG ####[place] [address] [place] [phone] Lactate [Moles/Vol] 1.6 mmol/L Normal 0.5-2.2 [facility] Comment on above: Performed By: #### V ALLBG ####[place] [address] [place] [phone] Methemoglobin 1.0 % Normal <1.6 [facility] Comment on above: Performed By: #### V ALLBG ####[place] [address]CS[address] [place], [place] [phone] O2 Administered 30% Normal [facility] Comment on above: Performed By: #### V ALLBG ####[facility]ClevelandPe[place], [place] [phone] Oxyhemoglobin, Ziyad. 78 % Normal 60-85 [facility] Comment on above: Performed By: #### V ALLBG ####[facility]CS[address] [place], [place] [phone] pCO2 49 mm Hg Normal 42-55 [facility] Comment on above: Performed By: #### V ALLBG ####[facility]CS[address] [place], [place] [phone] pCO2, Temp Correct 49 mm Hg Normal 42-55 [facility] Comment on above: Performed By: #### V ALLBG ####[facility]CS[address] [place], [place] [phone] pH (Bld) 7.38 [pH] Normal 7.32-7.42 [facility] Comment on above: Performed By: #### V ALLBG ####[place] [phone]CKrist[address] [place] [phone] pH, Temp Corrected 7.38 Normal 7.32-7.42 [facility] Comment on above: Performed By: #### V ALLBG ####[place] [address] [place] [phone] pO2 46 mm Hg High 35-45 [facility] Comment on above: Performed By: #### V ALLBG ####[place] [id number]CK[address] [place] [phone] pO2, Temp Corrected 46 mm Hg High 35-45 [facility] Comment on above: Performed By: #### V ALLBG ####[place] [address] AveCS[address] [place], [place] [phone] Potassium [Moles/Vol] 4.3 mmol/L Normal 3.5-5.0 [facility] Comment on above: Performed By: #### V ALLBG ####[facility]CS[address] [place], [place] [phone] Sodium [Moles/Vol] 141 mmol/L Normal 136-144 [facility] Comment on above: Performed By: #### V ALLBG ####[place] [address]CS[address] [place], [place] [phone] Magnesiumon 04-29-2021 Magnesium [Mass/Vol] 1.8 mg/dL Normal 1.7-2.3 [facility] Comment on above: Performed By: #### C BC, MG1, PHOS, PTT, CMP, PT ####[facility] [place], [place] [phone] NURSING PROGon 04-29-2021 NURSING PROG HNO ID: [id number] Author: Magda Rose RN Service: ? Author Type: Registered Nurse Type: Nursing Progress Note Filed: 04/29/2021 7:45 AM Note Text: Nursing Progress: Topic: RESTRAINT NON-VIOLENT PATIENT NAME: Oscar Pineda PATIENT LOCATION: [place] [address] The patient demonstrates Attempting to Remove Medical [...] TIME: 7:44 AM Diane Rose RN Normal [facility] Phosphoruson 04-29-2021 Phosphate [Mass/Vol] 3.2 mg/dL Normal 2.7-4.8 [facility] Comment on above: Performed By: #### C BC, MG1, PHOS, PTT, CMP, PT ####[facility] [address] [place], [place] [phone] Protimeon 04-29-2021 PT INR 1.0 Normal 0.9-1.3 [facility] Comment on above: Result Comment: Neha min K Antagonist (VKA) Therapeutic Range: INR 2 to 3 (Target INR of 2.5) Note: For patients treated with VKA drugs, such as warfarin, the [place] [employer] 2012 Guideline recommends [...] Chest 2012, 141:7S-47S Daphne RA, et al. [facility] 2017, 70: 252-289 Performed By: #### C BC, MG1, PHOS, PTT, CMP, PT ####[facility] [place], [place] [phone] PT Sec 11.0 sec Normal 9.7-13.0 [facility] Comment on above: Performed By: #### C BC, MG1, PHOS, PTT, CMP, PT ####[facility] [address] [place], [place] [phone] THERAPY NTon 04-29-2021 THERAPY NT HNO ID: [id number] Author: Neela Prasad, PT Service: Physical Therapy Author Type: Physical Therapist Type: Therapy (PT/OT/Speech/Resp) Filed: 04/29/2021 10:05 AM Note Text: Physical Therapy Evaluation SERVICE DATE: 04/29/2021 SERVICE TIME: 907 to 945 ROOM: [place] [address] Recommended Discharge Disposition: Home Recommended Discharge Disposition [...] trunk posture;Step length decreased;Non-functiona l gait speed [facility]: 7: Walk 25 feet or more Learning/Educational [...] Diagnosis: Reduced mobility-other Interventions Provided: Evaluation;Gait Training (91087);Therapeutic Activity (31833) $ Evaluation-Moderate (78337) Billed Units: 1 unit Therapeutic Activity (79945) Treatment Minutes: 8 $ Therapeutic Activity (10848) Billed Units: 1 unit Gait Training (47063) Treatment Minutes: 15 $ Gait Training (11999) Billed Units: 1 unit Training AND education provided in: Bed mobility, Benefits of in-hospital mobility, Discharge planning, Energy conservation, Expected functional level, Gait pattern, reduction of deviations, Positioning, Precautions/restriction s, Role of Physical Therapy, Sitting balance, Standing balance, Transfers, Treatment protocol, Equipment, Assistive device use The following therapeutic skills were used: Activity dosing, Assessment of tolerance includi (more content not included)... Normal [facility] Type and Screenon 04-29-2021 ABO/RH(D) Positive Normal [facility] Comment on above: Performed By: #### T SCR ####[facility] [place], [place] [phone] APTTon 04-28-2021 aPTT Coag (Bld) [Time] 26.6 s Normal 23.0-32.4 [facility] Comment on above: Result Comment: Unfr [...] laboratory APTT reagent in use throughout the [facility]. Performed By: #### P T, PTT, TRIG, CMP, CBC, MG1, PHOS ####[facility] AveCSan [place], [place] [phone] Blood Cultureon 04-28-2021 Bacteria identified Cx Nom (Bld) Culture Result - No growth 5 days Normal [facility] Comment on above: Performed By: #### B LCUL ####[place] [address] [place], [place] [phone] Bacteria identified Cx Nom (Bld) Culture Result - No growth 5 days Normal [facility] Comment on above: Performed By: #### B LCUL ####[place] [address], [place] [phone] CBCon 04-28-2021 Absolute nRBC <0.01 Normal <0.01 [facility] Comment on above: Performed By: #### P T, PTT, TRIG, CMP, CBC, MG1, PHOS ####[place] [address], [place] [phone] Erythrocyte distribution width (RBC) [Ratio] 12.4 % Normal 11.5-15.0 [facility] Comment on above: Performed By: #### P T, PTT, TRIG, CMP, CBC, MG1, PHOS ####[place] [address] [place], [place] [phone] Hematocrit (Bld) [Volume fraction] 36.1 % Normal 36.0-46.0 [facility] Comment on above: Performed By: #### P T, PTT, TRIG, CMP, CBC, MG1, PHOS ####[place] [address] [place], [place] [phone] Hemoglobin (Bld) [Mass/Vol] 11.8 g/dL Normal 11.5-15.5 [facility] Comment on above: Performed By: #### P T, PTT, TRIG, CMP, CBC, MG1, PHOS ####[place] [address] [place], [place] [phone] MCH 30.9 pG Normal 26.0-34.0 [facility] Comment on above: Performed By: #### P T, PTT, TRIG, CMP, CBC, MG1, PHOS ####[address] [phone] MCHC (RBC) [Mass/Vol] 32.7 g/dL Normal 30.5-36.0 [facility] Comment on above: Performed By: #### P T, PTT, TRIG, CMP, CBC, MG1, PHOS ####[address] [phone] MCV (RBC) [Entitic vol] 94.5 fL Normal 80.0-100.0 [facility] Comment on above: Performed By: #### P T, PTT, TRIG, CMP, CBC, MG1, PHOS ####[address] [phone] Platelet mean volume (Bld) [Entitic vol] 9.8 fL Normal 9.0-12.7 [facility] Comment on above: Performed By: #### P T, PTT, TRIG, CMP, CBC, MG1, PHOS ####[address] [phone] Platelets (Bld) [#/Vol] 178 10*3/uL Normal 150-400 [facility] Comment on above: Performed By: #### P T, PTT, TRIG, CMP, CBC, MG1, PHOS ####[address] [phone] RBC (Bld) [#/Vol] 3.82 10*6/uL Low 3.90-5.20 [facility] Comment on above: Performed By: #### P T, PTT, TRIG, CMP, CBC, MG1, PHOS ####[address], [place] [phone] WBC (Bld) [#/Vol] 11.29 10*3/uL High 3.70-11.00 [facility] Comment on above: Performed By: #### P T, PTT, TRIG, CMP, CBC, MG1, PHOS ####[facility] [place], [place] [phone] CT ABD/PEL W IVCONon 021 CT ABD/PEL W IVCON * * *Final Report* * * DATE OF EXAM: Apr 28 2021 2:10PM [facility] [place]/PEL W IVCON / [...] chest CT performed will be reported separately. Can Crimper (topogram) images: No additional findings. IMPRESSION: Resolution of intravenous gas within the abdomen and pelvis. 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 Strawberry Grower: PSCB Transcribe Date/Time: Apr 28 2021 2:50P Dictated by : KASHMIR RIVERA MD This examination was interpreted and the report reviewed and electronically signed by: ELIAS WOODY MD on Apr 28 2021 4:13PM EST [id number] Normal [facility] CT CHEST W IVCONon 1 CT CHEST W IVCON * * *Final Report* * * DATE OF EXAM: Apr 28 2021 2:10PM [facility] [place] CHEST W IVCON / [...] There is minimal intrahepatic biliary ductal dilation. Can Crimper (topogram) images: No additional findings. IMPRESSION: 1. No CT evidence of air embolism within the systemic veins, right-sided heart chambers, central pulmonary arteries and hepatic veins. 2. Posterior complete LEFT lower lobe, partially dependent RIGHT lower lobe and dependent LEFT upper lobe atelectasis. Given the distribution, this finding may be related to aspiration. Trace bilateral pleural effusions. Strawberry Grower: ANEL Transcribe Date/Time: Apr 28 2021 3:35P Dictated by : MICHELLE PETERSEN MD This examination was interpreted and the report reviewed and electronically signed by: MICHELLE PETERSEN MD on Apr 28 2021 3:45PM EST [id number] Normal [facility] Comp Metabolic Panelon 04-28 Albumin [Mass/Vol] 3.0 g/dL Low 3.9-4.9 [facility] Comment on above: Performed By: #### P T, PTT, TRIG, CMP, CBC, MG1, PHOS ####[facility] [place], [place] [phone] ALP [Catalytic activity/Vol] 36 U/L Normal 34-123 [facility] Comment on above: Performed By: #### P T, PTT, TRIG, CMP, CBC, MG1, PHOS ####[facility] [place], [place] [phone] ALT [Catalytic activity/Vol] 32 U/L Normal 7-38 [facility] Comment on above: Performed By: #### P T, PTT, TRIG, CMP, CBC, MG1, PHOS ####[facility] [address] AveCSan [place], [place] [phone] Anion gap [Moles/Vol] 10 mmol/L Normal 9-18 [facility] Comment on above: Performed By: #### P T, PTT, TRIG, CMP, CBC, MG1, PHOS ####[address] [place], [place] [phone] AST [Catalytic activity/Vol] 102 U/L High 13-35 [facility] Comment on above: Performed By: #### P T, PTT, TRIG, CMP, CBC, MG1, PHOS ####[address] [place], [place] [phone] Bilirubin [Mass/Vol] 0.3 mg/dL Normal 0.2-1.3 [facility] Comment on above: Performed By: #### P T, PTT, TRIG, CMP, CBC, MG1, PHOS ####[address] [phone] Calcium [Mass/Vol] 7.9 mg/dL Low 8.5-10.2 [facility] Comment on above: Performed By: #### P T, PTT, TRIG, CMP, CBC, MG1, PHOS ####[address] [phone] Chloride [Moles/Vol] 107 mmol/L High 97-105 [facility] Comment on above: Performed By: #### P T, PTT, TRIG, CMP, CBC, MG1, PHOS ####[place] [address] [address] [place], [place] [phone] CO2 [Moles/Vol] 25 mmol/L Normal 22-30 [facility] Comment on above: Performed By: #### P T, PTT, TRIG, CMP, CBC, MG1, PHOS ####[place] [address] [address], [place] [phone] Creatinine [Mass/Vol] 0.85 mg/dL Normal 0.58-0.96 [facility] Comment on above: Performed By: #### P T, PTT, TRIG, CMP, CBC, MG1, PHOS ####[facility] [place], [place] [phone] eGFR- Amer. >60 Normal [facility] Comment on above: Performed By: #### P T, PTT, TRIG, CMP, CBC, MG1, PHOS ####[facility] [place] [address] [phone] eGFR-All Other Races >60 Normal [facility] Comment on above: Result Comment: eGFR [...] T, PTT, TRIG, CMP, CBC, MG1, PHOS ####[facility] [place], [place] [phone] Glucose [Mass/Vol] 86 mg/dL Normal 74-99 [facility] Comment on above: Result Comment: The [place] [employer] (ADA) provides guidance for cutoff [...] Standards of Medical Care in Diabetes 2016, [place] [employer]. Diabetes Care. 2016.39(Suppl 1). Performed By: #### P T, PTT, TRIG, CMP, CBC, MG1, PHOS ####[address] [phone] Potassium [Moles/Vol] 3.8 mmol/L Normal 3.7-5.1 [facility] Comment on above: Performed By: #### P T, PTT, TRIG, CMP, CBC, MG1, PHOS ####[address] [phone] Protein [Mass/Vol] 5.2 g/dL Low 6.3-8.0 [facility] Comment on above: Performed By: #### P T, PTT, TRIG, CMP, CBC, MG1, PHOS ####[address] [phone] Sodium [Moles/Vol] 142 mmol/L Normal 136-144 [facility] Comment on above: Performed By: #### P T, PTT, TRIG, CMP, CBC, MG1, PHOS ####[address] [phone] Urea nitrogen [Mass/Vol] 15 mg/dL Normal 7-21 [facility] Comment on above: Performed By: #### P T, PTT, TRIG, CMP, CBC, MG1, PHOS ####[address] [phone] GASV + ALLon 04-28-2021 Base Excess 2 mmol/L Normal [facility] Comment on above: Performed By: #### V ALLBG ####[address] [phone] Blood Gas Comm, Ziyad . Normal [facility] Comment on above: Performed By: #### V ALLBG ####[address] [phone] Body temperature 98.6 [degF] Normal [facility] Comment on above: Performed By: #### V ALLBG ####[place] [address], [place] [phone] Calcium [Moles/Vol] 1.18 mmol/L Normal 1.08-1.30 [facility] Comment on above: Performed By: #### V ALLBG ####[address] [place], [place] [phone] Carboxyhemoglobin, Ziyad 0.7 % Normal <2.1 [facility] Comment on above: Performed By: #### V ALLBG ####[address] [phone] CO2 [Moles/Vol] 30 mmol/L High 25-29 [facility] Comment on above: Performed By: #### V ALLBG ####[place] [address] [address] [place] [phone] Glucose [Mass/Vol] 90 mg/dL Normal 60-105 [facility] Comment on above: Performed By: #### V ALLBG ####[address] [phone] HCO3 (Bld) [Moles/Vol] 29 mmol/L High 24-28 [facility] Comment on above: Performed By: #### V ALLBG ####[place] [address] [address], [place] [phone] Hematocrit (Bld) [Volume fraction] 37.7 % Normal 36.0-46.0 [facility] Comment on above: Performed By: #### V ALLBG ####[address] [place], [place] [phone] Hemoglobin (Bld) [Mass/Vol] 12.3 g/dL Normal 11.5-15.5 [facility] Comment on above: Performed By: #### V ALLBG ####[place] [address] [address] [place] [phone] Lactate [Moles/Vol] 0.9 mmol/L Normal 0.5-2.2 [facility] Comment on above: Performed By: #### V ALLBG ####[place] [address] [place], [place] [phone] Methemoglobin 1.5 % Normal <1.6 [facility] Comment on above: Performed By: #### V ALLBG ####[place] [address] [address] [place] [phone] O2 Administered 100% Normal [facility] Comment on above: Performed By: #### V ALLBG ####[place] [address] [address] [place] [phone] Oxyhemoglobin, Ziyad. 83 % Normal 60-85 [facility] Comment on above: Performed By: #### V ALLBG ####[place] [address] [address] [place] [phone] pCO2 57 mm Hg High 42-55 [facility] Comment on above: Performed By: #### V ALLBG ####[place] [address] [address] [place] [phone] pCO2, Temp Correct 57 mm Hg High 42-55 [facility] Comment on above: Performed By: #### V ALLBG ####[place] [address] [address] [place] [phone] pH (Bld) 7.32 [pH] Normal 7.32-7.42 [facility] Comment on above: Performed By: #### V ALLBG ####[place] [address] [address] [place] [phone] pH, Temp Corrected 7.32 Normal 7.32-7.42 [facility] Comment on above: Performed By: #### V ALLBG ####[address] [phone] pO2 54 mm Hg High 35-45 [facility] Comment on above: Performed By: #### V ALLBG ####[address] [phone] pO2, Temp Corrected 54 mm Hg High 35-45 [facility] Comment on above: Performed By: #### V ALLBG ####[address] [phone] Potassium [Moles/Vol] 3.8 mmol/L Normal 3.5-5.0 [facility] Comment on above: Performed By: #### V ALLBG ####[address] [phone] Sodium [Moles/Vol] 142 mmol/L Normal 136-144 [facility] Comment on above: Performed By: #### V ALLBG ####[address] [phone] Magnesiumon 04-28-2021 Magnesium [Mass/Vol] 2.0 mg/dL Normal 1.7-2.3 [facility] Comment on above: Performed By: #### P T, PTT, TRIG, CMP, CBC, MG1, PHOS ####[address] [phone] NURSING PROGon 04-28-2021 NURSING PROG HNO ID: [id number] Author: Laura Mullins RN Service: ? Author Type: Registered Nurse Type: Nursing Progress Note Filed: 04/28/2021 8:01 PM Note Text: Nursing Progress: Topic: RESTRAINT NON-VIOLENT PATIENT NAME: Oscar Pineda PATIENT LOCATION: [place] [address] The patient demonstrates Attempting to Remove Medical [...] 2021 TIME: 8:01 PM Laura Mullins RN [facility] NURSING PROG HNO ID: [id number] Author: Rob Guerra RN Service: Radiology Author [...] DATE: April 28, 2021 TIME: 2:08 PM [facility] NURSING PROG HNO ID: [id number] Author: Yumiko Molina RN Service: ? Author Type: Registered Nurse Type: Nursing Progress Note Filed: 04/28/2021 2:57 PM Note Text: Nursing Progress Note Patient Name: Oscar Pineda Patient Location: [place] [address] 1200 IR at bedside, advised transfer to CT table while still in trendelenburg trial patient supine, still in trendelenburg. Tolerating [address], notified of positioning requirements 1345 TRAIN CONDUCTOR, resident, two RT's, and two RN's at bedside for transport. Pt on telemetry/ continuous monitoring. CT and IR LIP notified. [address] imaging table, trendelenburg positioning maintained [address] and gave verbal OK to transition HOB flat then elevated (as tolerated) 1420 patient in SICU, HOB flat. Tolerating This note was completed by: Yumiko Molina [facility] NURSING PROG HNO ID: [id number] Author: Yumiko Molina RN Service: ? Author Type: Registered Nurse Type: Nursing Progress Note Filed: 04/28/2021 1:22 PM Note Text: Nursing Progress: Topic: RESTRAINT NON-VIOLENT PATIENT NAME: Oscar Pineda PATIENT LOCATION: [place] [address] The patient demonstrates Attempting to Remove Medical Devices Vital to Medical Stability as evidenced by the following behaviors attempting to remove medical coordinator pesticide use which pose an imminent danger to self [...] 2021 TIME: 8:00AM Yumiko Molina RN Normal [facility] Phosphoruson 04-28-2021 Phosphate [Mass/Vol] 2.3 mg/dL Low 2.7-4.8 [facility] Comment on above: Performed By: #### P T, PTT, TRIG, CMP, CBC, MG1, PHOS ####[facility] [address] [place], [place] [phone] Protimeon 04-28-2021 PT INR 1.0 Normal 0.9-1.3 [facility] Comment on above: Result Comment: Neha min K Antagonist (VKA) Therapeutic Range: INR 2 to 3 (Target INR of 2.5) Note: For patients treated with VKA drugs, such as warfarin, the [place] [employer] 2012 Guideline recommends [...] GH, et al. Chest 2012, 141:7S-47S Daphne RA et al. [facility] 2017, 70: 252-289 Performed By: #### P T, PTT, TRIG, CMP, CBC, MG1, PHOS ####[facility] [place], [place] [phone] PT Sec 11.0 sec Normal 9.7-13.0 [facility] Comment on above: Performed By: #### P T, PTT, TRIG, CMP, CBC, MG1, PHOS ####[facility] [place], [place] [phone] Respiratory Cult/Stainon Respiratory Cult/Stain Sp. Request/Comment: - Specimen received in sterile container. Smear Result - Rare Mixed oral kaylynn Many Polymorphonuclear leukocytes Rare Epithelial cells Culture Result - Few Staphylococcus aureus --> ABNORMAL ALERT Insignificant colony count. No further workup. --> ABNORMAL ALERT Few Normal respiratory kaylynn present Critically abnormal [facility] Comment on above: Performed By: #### R CULST ####[address] [phone] Triglycerideon 04-28-2021 Fasting Time Unknown Normal [facility] Comment on above: Performed By: #### P T, PTT, TRIG, CMP, CBC, MG1, PHOS ####[facility] [place], [place] [phone] Triglyceride [Mass/Vol] 155 mg/dL High <150 [facility] Comment on above: Result Comment: <150 mg/dL, Normal 150-199 mg/dL, Borderline high 200-499 mg/dL, High >499 mg/dL, Very high Reference: 1. National Cholesterol Education Program ATP III Guideline At-A-Glance Quick Desk Reference: National Heart, Lung, and Blood [place]. National Institutes of Health. 2001: NIH Publication No. 01-3305. Performed By: #### P T, PTT, TRIG, CMP, CBC, MG1, PHOS ####[place] [id number] [place], [place] [phone] Urinalysison 04-28-2021 Bilirubin, Urine Negative Normal Negative [facility] Comment on above: Performed By: #### U A ####[place] [address] [address] [place] [phone] Clarity (U) Clear Normal Clear [facility] Comment on above: Performed By: #### U A ####[place] [address] [address] [place] [phone] Color (U) Light Yellow Critically abnormal Yellow [facility] Comment on above: Performed By: #### U A ####[place] [address] [address] [place] [phone] Comments SEE COMMENT Normal [facility] Comment on above: Result Comment: Micr oscopic not warranted Performed By: #### U A ####[place] [address] [address] [phone] Glucose Ql (U) Negative Normal Negative [facility] Comment on above: Performed By: #### U A ####[place] [address] [address] [place] [phone] Hemoglobin/Blood,U r Negative Normal Negative [facility] Comment on above: Performed By: #### U A ####[place] [address] [address] [place] [phone] Ketones Ql (U) 1+ Critically abnormal Negative [facility] Comment on above: Performed By: #### U A ####[place] [address] [address] [place] [phone] Leukest Negative Normal Negative [facility] Comment on above: Performed By: #### U A ####[place] [address] [address] [place] [phone] Nitrite Ql (U) Negative Normal Negative [facility] Comment on above: Performed By: #### U A ####[place] [address] [address] [place] [phone] pH (U) 5.0 [pH] Normal 5.0-8.0 [facility] Comment on above: Performed By: #### U A ####[place] [address] [address], [place] [phone] Protein, Urine Negative Normal Negative [facility] Comment on above: Performed By: #### U A ####[address] [phone] Specific [place], Ur 1.023 Normal 1.005-1.030 [facility] Comment on above: Performed By: #### U A ####[place] [address] [address], [place] [phone] Urine Karl Comment SEE COMMENT Normal [facility] Comment on above: Result Comment: N/A Performed By: #### U A ####[place] [address] [address], [place] [phone] Urobilinogen (U) [Mass/Vol] Negative Normal Negative [facility] Comment on above: Performed By: #### U A ####[place] [address] [address], [place] [phone] APTTon 04-27-2021 aPTT Coag (Bld) [Time] 21.9 s Low 23.0-32.4 [facility] Comment on above: Result Comment: Unfr [...] laboratory APTT reagent in use throughout the [facility]. Performed By: #### P HOS, CMP, PTT, CBC, MG1, PT ####[facility], [place] [phone] CBCon 04-27-2021 Absolute nRBC <0.01 Normal <0.01 [facility] Comment on above: Performed By: #### P HOS, CMP, PTT, CBC, MG1, PT ####[place] [address] [place], [place] [phone] Erythrocyte distribution width (RBC) [Ratio] 11.9 % Normal 11.5-15.0 [facility] Comment on above: Performed By: #### P HOS, CMP, PTT, CBC, MG1, PT ####[place] [address] [address] [place] [phone] Hematocrit (Bld) [Volume fraction] 39.3 % Normal 36.0-46.0 [facility] Comment on above: Performed By: #### P HOS, CMP, PTT, CBC, MG1, PT ####[place] [address] [address] [place] [phone] Hemoglobin (Bld) [Mass/Vol] 13.3 g/dL Normal 11.5-15.5 [facility] Comment on above: Performed By: #### P HOS, CMP, PTT, CBC, MG1, PT ####[place] [address] [address] [place] [phone] MCH 31.0 pG Normal 26.0-34.0 [facility] Comment on above: Performed By: #### P HOS, CMP, PTT, CBC, MG1, PT ####[place] [address] [address] [place] [phone] MCHC (RBC) [Mass/Vol] 33.8 g/dL Normal 30.5-36.0 [facility] Comment on above: Performed By: #### P HOS, CMP, PTT, CBC, MG1, PT ####[place] [address] [place], [place] [phone] MCV (RBC) [Entitic vol] 91.6 fL Normal 80.0-100.0 [facility] Comment on above: Performed By: #### P HOS, CMP, PTT, CBC, MG1, PT ####[facility] AveClevelMount [place], [place] [phone] Platelet mean volume (Bld) [Entitic vol] 9.8 fL Normal 9.0-12.7 [facility] Comment on above: Performed By: #### P HOS, CMP, PTT, CBC, MG1, PT ####[place] [address] [address]ClevelMount [place], [place] [phone] Platelets (Bld) [#/Vol] 242 10*3/uL Normal 150-400 [facility] Comment on above: Performed By: #### P HOS, CMP, PTT, CBC, MG1, PT ####[place] [address] [place], [place] [phone] RBC (Bld) [#/Vol] 4.29 10*6/uL Normal 3.90-5.20 [facility] Comment on above: Performed By: #### P HOS, CMP, PTT, CBC, MG1, PT ####[place] [address] [address] [place], [place] [phone] WBC (Bld) [#/Vol] 17.39 10*3/uL High 3.70-11.00 [facility] Comment on above: Performed By: #### P HOS, CMP, PTT, CBC, MG1, PT ####[place] [address] [address] [place], [place] [phone] Comp Metabolic Panelon 04-27 Albumin [Mass/Vol] 3.9 g/dL Normal 3.9-4.9 [facility] Comment on above: Performed By: #### P HOS, CMP, PTT, CBC, MG1, PT ####[place] [id number] AveClevelMount [place], [place] [phone] ALP [Catalytic activity/Vol] 41 U/L Normal 34-123 [facility] Comment on above: Performed By: #### P HOS, CMP, PTT, CBC, MG1, PT ####[facility] [place], [place] [phone] ALT [Catalytic activity/Vol] 26 U/L Normal 7-38 [facility] Comment on above: Performed By: #### P HOS, CMP, PTT, CBC, MG1, PT ####[place] [address] [address] [place], [place] [phone] Anion gap [Moles/Vol] 10 mmol/L Normal 9-18 [facility] Comment on above: Performed By: #### P HOS, CMP, PTT, CBC, MG1, PT ####[place] [address] [place], [place] [phone] AST [Catalytic activity/Vol] 63 U/L High 13-35 [facility] Comment on above: Performed By: #### P HOS, CMP, PTT, CBC, MG1, PT ####[place] [address] [place], [place] [phone] Bilirubin [Mass/Vol] 0.5 mg/dL Normal 0.2-1.3 [facility] Comment on above: Performed By: #### P HOS, CMP, PTT, CBC, MG1, PT ####[place] [address] [place], [place] [phone] Calcium [Mass/Vol] 8.6 mg/dL Normal 8.5-10.2 [facility] Comment on above: Performed By: #### P HOS, CMP, PTT, CBC, MG1, PT ####[place] [address] [place], [place] [phone] Chloride [Moles/Vol] 109 mmol/L High 97-105 [facility] Comment on above: Performed By: #### P HOS, CMP, PTT, CBC, MG1, PT ####[place] [address] [place], [place] [phone] CO2 [Moles/Vol] 23 mmol/L Normal 22-30 [facility] Comment on above: Performed By: #### P HOS, CMP, PTT, CBC, MG1, PT ####[address] [phone] Creatinine [Mass/Vol] 0.76 mg/dL Normal 0.58-0.96 [facility] Comment on above: Performed By: #### P HOS, CMP, PTT, CBC, MG1, PT ####[address] [phone] eGFR- Amer. >60 Normal [facility] Comment on above: Performed By: #### P HOS, CMP, PTT, CBC, MG1, PT ####[address] [phone] eGFR-All Other Races >60 Normal [facility] Comment on above: Result Comment: eGFR [...] P HOS, CMP, PTT, CBC, MG1, PT ####[address] [phone] Glucose [Mass/Vol] 119 mg/dL High 74-99 [facility] Comment on above: Result Comment: The [place] [employer] (ADA) provides guidance for cutoff [...] Standards of Medical Care in Diabetes 2016, [place] [employer]. Diabetes Care. 2016.39(Suppl 1). Performed By: #### P HOS, CMP, PTT, CBC, MG1, PT ####[place] [address] [address] [place] [phone] Potassium [Moles/Vol] 4.0 mmol/L Normal 3.7-5.1 [facility] Comment on above: Performed By: #### P HOS, CMP, PTT, CBC, MG1, PT ####[address] [phone] Protein [Mass/Vol] 5.9 g/dL Low 6.3-8.0 [facility] Comment on above: Performed By: #### P HOS, CMP, PTT, CBC, MG1, PT ####[address] [phone] Sodium [Moles/Vol] 142 mmol/L Normal 136-144 [facility] Comment on above: Performed By: #### P HOS, CMP, PTT, CBC, MG1, PT ####[address] [phone] Urea nitrogen [Mass/Vol] 13 mg/dL Normal 7-21 [facility] Comment on above: Performed By: #### P HOS, CMP, PTT, CBC, MG1, PT ####[address] [phone] GASV + ALLon 04-27-2021 Base Excess 1 mmol/L Normal [facility] Comment on above: Performed By: #### V ALLBG ####[address] [phone] Blood Gas Comm, Ziyad . Normal [facility] Comment on above: Performed By: #### V ALLBG ####[place] [id number] [place], [place] [phone] Body temperature 98.6 [degF] Normal [facility] Comment on above: Performed By: #### V ALLBG ####[place] [address] [address] [place], [place] [phone] Calcium [Moles/Vol] 1.21 mmol/L Normal 1.08-1.30 [facility] Comment on above: Performed By: #### V ALLBG ####[place] [address] [address] [place] [phone] Carboxyhemoglobin, Ziyad 0.7 % Normal <2.1 [facility] Comment on above: Performed By: #### V ALLBG ####[place] [address] [address] [place] [phone] CO2 [Moles/Vol] 29 mmol/L Normal 25-29 [facility] Comment on above: Performed By: #### V ALLBG ####[place] [address] [address] [place] [phone] Glucose [Mass/Vol] 97 mg/dL Normal 60-105 [facility] Comment on above: Performed By: #### V ALLBG ####[place] [address] [address] [place] [phone] HCO3 (Bld) [Moles/Vol] 27 mmol/L Normal 24-28 [facility] Comment on above: Performed By: #### V ALLBG ####[place] [address] [address] [place] [phone] Hematocrit (Bld) [Volume fraction] 38.2 % Normal 36.0-46.0 [facility] Comment on above: Performed By: #### V ALLBG ####[place] [address] [address] [place] [phone] Hemoglobin (Bld) [Mass/Vol] 12.4 g/dL Normal 11.5-15.5 [facility] Comment on above: Performed By: #### V ALLBG ####[place] [phone] Lactate [Moles/Vol] 1.1 mmol/L Normal 0.5-2.2 [facility] Comment on above: Performed By: #### V ALLBG ####[place] [address] [address] [place] [phone] Methemoglobin 0.7 % Normal <1.6 [facility] Comment on above: Performed By: #### V ALLBG ####[place] [phone] O2 Administered 100% Normal [facility] Comment on above: Performed By: #### V ALLBG ####[place] [phone] Oxyhemoglobin, Ziyad. 92 % High 60-85 [facility] Comment on above: Performed By: #### V ALLBG ####[place] [phone] pCO2 53 mm Hg Normal 42-55 [facility] Comment on above: Performed By: #### V ALLBG ####[place] [phone] pCO2, Temp Correct 53 mm Hg Normal 42-55 [facility] Comment on above: Performed By: #### V ALLBG ####[place] [address] [address] [place] [phone] pH (Bld) 7.33 [pH] Normal 7.32-7.42 [facility] Comment on above: Performed By: #### V ALLBG ####[place] [address] [address] [place] [phone] pH, Temp Corrected 7.33 Normal 7.32-7.42 [facility] Comment on above: Performed By: #### V ALLBG ####[place] [id number]CSan [place], [place] [phone] pO2 70 mm Hg High 35-45 [facility] Comment on above: Performed By: #### V ALLBG ####[place] [id number] [place], [place] [phone] pO2, Temp Corrected 70 mm Hg High 35-45 [facility] Comment on above: Performed By: #### V ALLBG ####[place] [address] [address] [place] [phone] Potassium [Moles/Vol] 3.9 mmol/L Normal 3.5-5.0 [facility] Comment on above: Performed By: #### V ALLBG ####[place] [address] [address], [place] [phone] Sodium [Moles/Vol] 143 mmol/L Normal 136-144 [facility] Comment on above: Performed By: #### V ALLBG ####[place] [address] [address], [place] [phone] Base Excess 0 mmol/L Normal [facility] Comment on above: Performed By: #### V ALLBG ####[place] [address] [address], [place] [phone] Blood Gas Comm, Ziyad . Normal [facility] Comment on above: Performed By: #### V ALLBG ####[place] [id number] [place], [place] [phone] Body temperature 98.6 [degF] Normal [facility] Comment on above: Performed By: #### V ALLBG ####[place] [address] [address], [place] [phone] Calcium [Moles/Vol] 1.22 mmol/L Normal 1.08-1.30 [facility] Comment on above: Performed By: #### V ALLBG ####[place] [address] [address] [place], [place] [phone] Carboxyhemoglobin, Ziyad 0.6 % Normal <2.1 [facility] Comment on above: Performed By: #### V ALLBG ####[place] [address] [address] [place], [place] [phone] CO2 [Moles/Vol] 27 mmol/L Normal 25-29 [facility] Comment on above: Performed By: #### V ALLBG ####[place] [address] [address] [phone] Glucose [Mass/Vol] 130 mg/dL High 60-105 [facility] Comment on above: Performed By: #### V ALLBG ####[place] [address] [address] [phone] HCO3 (Bld) [Moles/Vol] 26 mmol/L Normal 24-28 [facility] Comment on above: Performed By: #### V ALLBG ####[place] [address] [address] [phone] Hematocrit (Bld) [Volume fraction] 42.7 % Normal 36.0-46.0 [facility] Comment on above: Performed By: #### V ALLBG ####[place] [address] [address] [place], [place] [phone] Hemoglobin (Bld) [Mass/Vol] 13.9 g/dL Normal 11.5-15.5 [facility] Comment on above: Performed By: #### V ALLBG ####[place] [address] [address] [place], [place] [phone] Lactate [Moles/Vol] 1.3 mmol/L Normal 0.5-2.2 [facility] Comment on above: Performed By: #### V ALLBG ####[place] [address] [place] [phone] Methemoglobin 1.1 % Normal <1.6 [facility] Comment on above: Performed By: #### V ALLBG ####[place] [address] [address], [place] [phone] O2 Administered 100% Normal [facility] Comment on above: Performed By: #### V ALLBG ####[place] [address] [address] [phone] Oxyhemoglobin, Ziyad. 88 % High 60-85 [facility] Comment on above: Performed By: #### V ALLBG ####[place] [address] [address] [phone] pCO2 49 mm Hg Normal 42-55 [facility] Comment on above: Performed By: #### V ALLBG ####[place] [address] [address] [phone] pCO2, Temp Correct 49 mm Hg Normal 42-55 [facility] Comment on above: Performed By: #### V ALLBG ####[place] [address] [address] [place] [phone] pH (Bld) 7.34 [pH] Normal 7.32-7.42 [facility] Comment on above: Performed By: #### V ALLBG ####[place] [address] [address], [place] [phone] pH, Temp Corrected 7.34 Normal 7.32-7.42 [facility] Comment on above: Performed By: #### V ALLBG ####[place] [address] [address] [place] [phone] pO2 64 mm Hg High 35-45 [facility] Comment on above: Performed By: #### V ALLBG ####[place] [address] [address] [place], [place] [phone] pO2, Temp Corrected 64 mm Hg High 35-45 [facility] Comment on above: Performed By: #### V ALLBG ####[place] [id number] [place], [place] [phone] Potassium [Moles/Vol] 4.1 mmol/L Normal 3.5-5.0 [facility] Comment on above: Performed By: #### V ALLBG ####[address] [phone] Sodium [Moles/Vol] 142 mmol/L Normal 136-144 [facility] Comment on above: Performed By: #### V ALLBG ####[address] [phone] Magnesiumon 04-27-2021 Magnesium [Mass/Vol] 2.2 mg/dL Normal 1.7-2.3 [facility] Comment on above: Performed By: #### P HOS, CMP, PTT, CBC, MG1, PT ####[address] [phone] NURSING PROGon 04-27-2021 NURSING PROG HNO ID: [id number] Author: Jack Richards RN Service: Nursing Author Type: Registered Nurse Type: Nursing Progress Note Filed: 04/27/2021 10:46 PM Note Text: Nursing Progress: Topic: RESTRAINT NON-VIOLENT PATIENT NAME: Oscar Pineda PATIENT LOCATION: [place] [address] The patient demonstrates Lack of Understanding/Ability to [...] 2021 TIME: 10:00 PM Jack Richards RN [facility] NURSING PROG HNO ID: [id number] Author: Karsten Goldsmith RN Service: Nursing Author Type: Registered Nurse Type: Nursing Progress Note Filed: 04/27/2021 8:51 AM Note Text: Nursing Progress: Topic: RESTRAINT NON-VIOLENT PATIENT NAME: Oscar Pineda PATIENT LOCATION: [place] [address] The patient demonstrates Lack of Understanding/Ability to [...] TIME: 8:51 AM Karsten Goldsmith RN Normal [facility] Phosphoruson 04-27-2021 Phosphate [Mass/Vol] 3.3 mg/dL Normal 2.7-4.8 [facility] Comment on above: Performed By: #### P HOS, CMP, PTT, CBC, MG1, PT ####[facility] [address] [place], [place] [phone] Protimeon 04-27-2021 PT INR 1.1 Normal 0.9-1.3 [facility] Comment on above: Result Comment: Neha min K Antagonist (VKA) Therapeutic Range: INR 2 to 3 (Target INR of 2.5) Note: For patients treated with VKA drugs, such as warfarin, the [place] [employer] 2012 Guideline recommends [...] 2.5 to 3.5 (target INR of 3). Westt GH, et al. Chest 2012, 141:7S-47S Daphne RA, et al. [facility] 2017, 70: 252-289 Performed By: #### P HOS, CMP, PTT, CBC, MG1, PT ####[facility] [place], [place] [phone] PT Sec 11.2 sec Normal 9.7-13.0 [facility] Comment on above: Performed By: #### P HOS, CMP, PTT, CBC, MG1, PT ####[facility] [place], [place] [phone] US ABDOMEN LTDon 04-27-2021 US ABDOMEN LTD * * *Final Report* * * DATE OF EXAM: Apr 27 2021 12:24PM [facility] [place] 1064 - US ABDOMEN LTD / PROCEDURE [...] within the hepatic veins or visualized IVC. Strawberry Grower: ANEL Transcribe Date/Time: Apr 27 2021 12:34P Dictated by : POONAM BLUM MD This examination was interpreted and the report reviewed and electronically signed by: ALICIA MENDOZA MD on Apr 27 2021 2:57PM EST [id number] Normal [facility] XR CHEST 1V FRONTALon 2020 XR [...] cardiomediastinal silhouette. Other: . IMPRESSION: See result. Strawberry Grower: PSCKb Transcribe Date/Time: Apr 27 2021 10:29A Dictated by : TAYLOR CORONA MD This examination was interpreted and the report reviewed and electronically signed by: TAYLOR CORONA MD on Apr 27 2021 10:31AM EST [id number] Normal [facility] ANES Sachin 04-26-2021 ANES POST HNO ID: [id number] Author: Tamara Brown DO Service: Anesthesiology Author [...] 26, 2021 TIME: 2:26 PM PAGER/CONTACT #: [phone] Normal [facility] APTTon 04-26-2021 aPTT Coag (Bld) [Time] 22.2 s Low 23.0-32.4 [facility] Comment on above: Result Comment: Unfr [...] laboratory APTT reagent in use throughout the [facility]. Performed By: #### C BC, MG1, PT, PTT, BMP, PHOS ####[facility] [address] [place], [place] [phone] BRIEF OP NOTon 04-26-2021 BRIEF OP NOT HNO ID: [id number] Author: Kayce Ricardo MD Service: Radiology Author Type: Physician Type: Brief Op Note Filed: 04/26/2021 3:28 PM Note Text: BRIEF OPERATIVE / PROCEDURE NOTE LOG ID: [id number] SURGERY/PROCEDURE DATE: 04/26/2021 INCISION/PROCEDURE START TIME: 9:25 AM INCISION CLOSE/PROCEDURE END TIME: 11:20 AM SURGEON(S)/PROCEDURALIS T(S) AND BUS INFO CONSULTANT(S): Surgeon(s) and Role: * Kayce Ricardo MD [...] abdominis POST-OP/POST-PROCEDURE DIAGNOSIS: Same as Preop SIGNATURE: aKyce Ricardo MD PATIENT NAME: Oscar Pineda DATE: April 26, 2021 TIME: 2:59 PM [phone] Normal [facility] Basic Metabolic Panlon 04-26 Anion gap [Moles/Vol] 11 mmol/L Normal 9-18 [facility] Comment on above: Performed By: #### C BC, MG1, PT, PTT, BMP, PHOS ####[facility] [address] [place], [place] [phone] Calcium [Mass/Vol] 8.3 mg/dL Low 8.5-10.2 [facility] Comment on above: Performed By: #### C BC, MG1, PT, PTT, BMP, PHOS ####[place] [address] [address] [place] [phone] Chloride [Moles/Vol] 107 mmol/L High 97-105 [facility] Comment on above: Performed By: #### C BC, MG1, PT, PTT, BMP, PHOS ####[place] [address] [address] [place] [phone] CO2 [Moles/Vol] 22 mmol/L Normal 22-30 [facility] Comment on above: Performed By: #### C BC, MG1, PT, PTT, BMP, PHOS ####[place] [address] [place] [phone] Creatinine [Mass/Vol] 0.74 mg/dL Normal 0.58-0.96 [facility] Comment on above: Performed By: #### C BC, MG1, PT, PTT, BMP, PHOS ####[place] [address] [place] [phone] eGFR- Amer. >60 Normal [facility] Comment on above: Performed By: #### C BC, MG1, PT, PTT, BMP, PHOS ####[place] [address] [place] [phone] eGFR-All Other Races >60 Normal [facility] Comment on above: Result Comment: eGFR [...] C BC, MG1, PT, PTT, BMP, PHOS ####[place] [address] [place], [place] [phone] Glucose [Mass/Vol] 178 mg/dL High 74-99 [facility] Comment on above: Result Comment: The [place] [employer] (ADA) provides guidance for cutoff [...] Standards of Medical Care in Diabetes 2016, [place] [employer]. Diabetes Care. 2016.39(Suppl 1). Performed By: #### C BC, MG1, PT, PTT, BMP, PHOS ####[address] [phone] Potassium [Moles/Vol] 4.1 mmol/L Normal 3.7-5.1 [facility] Comment on above: Performed By: #### C BC, MG1, PT, PTT, BMP, PHOS ####[address] [phone] Sodium [Moles/Vol] 140 mmol/L Normal 136-144 [facility] Comment on above: Performed By: #### C BC, MG1, PT, PTT, BMP, PHOS ####[address] [phone] Urea nitrogen [Mass/Vol] 14 mg/dL Normal 7-21 [facility] Comment on above: Performed By: #### C BC, MG1, PT, PTT, BMP, PHOS ####[address] [phone] CBCon 04-26-2021 Absolute nRBC <0.01 Normal <0.01 [facility] Comment on above: Performed By: #### C BC, MG1, PT, PTT, BMP, PHOS ####[place] [address] AveClevel[address] [place] [phone] Erythrocyte distribution width (RBC) [Ratio] 11.9 % Normal 11.5-15.0 [facility] Comment on above: Performed By: #### C BC, MG1, PT, PTT, BMP, PHOS ####[place] [address] [address] [place] [phone] Hematocrit (Bld) [Volume fraction] 38.5 % Normal 36.0-46.0 [facility] Comment on above: Performed By: #### C BC, MG1, PT, PTT, BMP, PHOS ####[place] [address] [address] [place] [phone] Hemoglobin (Bld) [Mass/Vol] 13.2 g/dL Normal 11.5-15.5 [facility] Comment on above: Performed By: #### C BC, MG1, PT, PTT, BMP, PHOS ####[place] [address] [address] [place] [phone] MCH 31.7 pG Normal 26.0-34.0 [facility] Comment on above: Performed By: #### C BC, MG1, PT, PTT, BMP, PHOS ####[place] [address] [address] [place] [phone] MCHC (RBC) [Mass/Vol] 34.3 g/dL Normal 30.5-36.0 [facility] Comment on above: Performed By: #### C BC, MG1, PT, PTT, BMP, PHOS ####[place] [address] [phone] MCV (RBC) [Entitic vol] 92.3 fL Normal 80.0-100.0 [facility] Comment on above: Performed By: #### C BC, MG1, PT, PTT, BMP, PHOS ####[place] [address] [place], [place] [phone] Platelet mean volume (Bld) [Entitic vol] 9.6 fL Normal 9.0-12.7 [facility] Comment on above: Performed By: #### C BC, MG1, PT, PTT, BMP, PHOS ####[address], [place] [phone] Platelets (Bld) [#/Vol] 227 10*3/uL Normal 150-400 [facility] Comment on above: Performed By: #### C BC, MG1, PT, PTT, BMP, PHOS ####[place] [address] [place], [place] [phone] RBC (Bld) [#/Vol] 4.17 10*6/uL Normal 3.90-5.20 [facility] Comment on above: Performed By: #### C BC, MG1, PT, PTT, BMP, PHOS ####[place] [address] [place], [place] [phone] WBC (Bld) [#/Vol] 17.98 10*3/uL High 3.70-11.00 [facility] Comment on above: Performed By: #### C BC, MG1, PT, PTT, BMP, PHOS ####[address] [phone] CONSULTon 04-26-2021 CONSULT HNO ID: [id number] Author: Jose M Cedillo MD Service: Interventional Radiology Author Type: Physician Type: Consults Filed: 04/26/2021 6:13 PM Note Text: CONSULT HISTORY AND PHYSICAL SERVICE DATE: 04/26/2021 SERVICE TIME: 1505 MsOscar is being seen in consultation at the [...] Oscar BRITTON (more content not included)... Normal [facility] CONSULT HNO ID: [id number] Author: Oneida Ruano MD Service: Cardiovascular Medicine Author Type: Physician Type: Consults Filed: 04/27/2021 2:36 PM Note Text: [facility] CONSULT NOTE Oscar Pineda [id number] CONSULTING SERVICE: SICU DATE OF ADMISSION: 04/26/2021 [...] Problems: # (more content not included)... Normal [facility] CT ABLATION MSK NOT BONE ALDO ORon 04-26-2021 CT ABLATION MSK NOT BONE TUMOR * * *Final Report* * * * * * SEE BOTTOM OF REPORT FOR ADDENDED TEXT * * * DATE OF EXAM: Apr 26 2021 11:24AM [facility] [place] ABLATION MSK NOT BONE TUMOR / PROCEDURE REASON: R19.15-Stkyv-bbvxymhxt and pelvic swelling, mass and lump, unspecified [...] induction 08 Procedure Start and End Time: 09 and 1119 Anesthesia / Sedation End Time: [...] for fur (more content not included)... Normal [facility] CT BRAIN WO IVCONon 04-26-[address] BRAIN WO IVCON * * *Final Report* * * DATE OF EXAM: Apr 26 2021 1:45PM [facility] [place] BRAIN WO IVCON / [...] reduction techniques were required COMPARISON: None. RESULT: Can Crimper (topogram) images: Endotracheal tube. Post-operative change: None. [...] Portable head CT demonstrating no acute findings. Strawberry Grower: PSCB Transcribe Date/Time: Apr 26 2021 1:56P Dictated by : MARIA L SCHMIDT MD This examination was interpreted and the report reviewed and electronically signed by: MARIA L SCHMIDT MD on Apr 26 2021 1:58PM EST [id number] Normal [facility] Confirm Blood Typeon 021 ABO/RH(D) Positive Normal [facility] Comment on above: Performed By: #### C ONABO ####[address] [phone] Performed By: #### T SCR ####[address] [phone] Expedited [id number] 04-26-20 21 SARS-CoV-2 (COVID-19) RNA ROX+probe Ql (Unsp spec) UPPER RESPIRATORY TRACT SWAB Normal [facility] Comment on above: Performed By: #### E XCOVD ####[address] [phone] SARS-CoV-2 (COVID-19) RNA ROX+probe Ql (Unsp spec) Negative for COVID19 (SARS CoV2) by RT-PCR or equivalent method. Normal Negative for COVID19 (SARS CoV2) by RT-PCR or equivalent method. [facility] Comment on above: Result Comment: This test has been authorized by FDA under an Emergency Use Authorization (EUA). Test performed by [facility], [facility] [place], [address] [place], [place] [address]. Performed By: #### E XCOVD ####[address] [phone] GASV + ALLon 04-26-2021 Base Excess Negative Normal [facility] Comment on above: Performed By: #### V ALLBG ####[address] [phone] Blood Gas Comm, Ziyad .VENOUS Normal [facility] Comment on above: Performed By: #### V ALLBG ####[address] [phone] Body temperature 98.6 [degF] Normal [facility] Comment on above: Performed By: #### V ALLBG ####[place] [phone] Calcium [Moles/Vol] 1.23 mmol/L Normal 1.08-1.30 [facility] Comment on above: Performed By: #### V ALLBG ####[address] [phone] Carboxyhemoglobin, Ziyad 0.9 % Normal <2.1 [facility] Comment on above: Performed By: #### V ALLBG ####[address] [phone] CO2 [Moles/Vol] 27 mmol/L Normal 25-29 [facility] Comment on above: Performed By: #### V ALLBG ####[address] [phone] Glucose [Mass/Vol] 144 mg/dL High 60-105 [facility] Comment on above: Performed By: #### V ALLBG ####[address] [phone] HCO3 (Bld) [Moles/Vol] 25 mmol/L Normal 24-28 [facility] Comment on above: Performed By: #### V ALLBG ####[place] [address] [address] [place] [phone] Hematocrit (Bld) [Volume fraction] 43.2 % Normal 36.0-46.0 [facility] Comment on above: Performed By: #### V ALLBG ####[place] [address] [address] [place] [phone] Hemoglobin (Bld) [Mass/Vol] 14.1 g/dL Normal 11.5-15.5 [facility] Comment on above: Performed By: #### V ALLBG ####[place] [address] [address] [place] [phone] Lactate [Moles/Vol] 2.0 mmol/L Normal 0.5-2.2 [facility] Comment on above: Performed By: #### V ALLBG ####[place] [address] [address] [place] [phone] Methemoglobin 0.7 % Normal <1.6 [facility] Comment on above: Performed By: #### V ALLBG ####[place] [address] [address] [place] [phone] O2 Administered 100% Normal [facility] Comment on above: Performed By: #### V ALLBG ####[place] [address] [address] [place] [phone] Oxyhemoglobin, Ziyad. 81 % Normal 60-85 [facility] Comment on above: Performed By: #### V ALLBG ####[place] [address] [address] [place] [phone] pCO2 53 mm Hg Normal 42-55 [facility] Comment on above: Performed By: #### V ALLBG ####[place] [address] [address] [place] [phone] pCO2, Temp Correct 53 mm Hg Normal 42-55 [facility] Comment on above: Performed By: #### V ALLBG ####[place] [address] [address] [place], [place] [phone] pH (Bld) 7.30 [pH] Low 7.32-7.42 [facility] Comment on above: Performed By: #### V ALLBG ####[place] [address] [place], [place] [phone] pH, Temp Corrected 7.30 Low 7.32-7.42 [facility] Comment on above: Performed By: #### V ALLBG ####[place] [address] [address], [place] [phone] pO2 52 mm Hg High 35-45 [facility] Comment on above: Performed By: #### V ALLBG ####[place] [address] [address], [place] [phone] pO2, Temp Corrected 52 mm Hg High 35-45 [facility] Comment on above: Performed By: #### V ALLBG ####[place] [address], [place] [phone] Potassium [Moles/Vol] 4.4 mmol/L Normal 3.5-5.0 [facility] Comment on above: Performed By: #### V ALLBG ####[place] [address] [place], [place] [phone] Sodium [Moles/Vol] 142 mmol/L Normal 136-144 [facility] Comment on above: Performed By: #### V ALLBG ####[place] [address], [place] [phone] Base Excess Negative Normal [facility] Comment on above: Performed By: #### V ALLBG ####[place] [address] [place], [place] [phone] Blood Gas Comm, Ziyad .VENOUS Normal [facility] Comment on above: Performed By: #### V ALLBG ####[place] [address], [place] [phone] Body temperature 98.6 [degF] Normal [facility] Comment on above: Performed By: #### V ALLBG ####[place] [address], [place] [phone] Calcium [Moles/Vol] 1.25 mmol/L Normal 1.08-1.30 [facility] Comment on above: Performed By: #### V ALLBG ####[place] [phone] Carboxyhemoglobin, Ziyad 0.5 % Normal <2.1 [facility] Comment on above: Performed By: #### V ALLBG ####[place] [phone] CO2 [Moles/Vol] 25 mmol/L Normal 25-29 [facility] Comment on above: Performed By: #### V ALLBG ####[place] [address] [address] [place] [phone] Glucose [Mass/Vol] 172 mg/dL High 60-105 [facility] Comment on above: Performed By: #### V ALLBG ####[place] [address] [address] [place] [phone] HCO3 (Bld) [Moles/Vol] 24 mmol/L Normal 24-28 [facility] Comment on above: Performed By: #### V ALLBG ####[place] [address] [address], [place] [phone] Hematocrit (Bld) [Volume fraction] 44.2 % Normal 36.0-46.0 [facility] Comment on above: Performed By: #### V ALLBG ####[place] [address] [place] [phone] Hemoglobin (Bld) [Mass/Vol] 14.4 g/dL Normal 11.5-15.5 [facility] Comment on above: Performed By: #### V ALLBG ####[place] [phone] Lactate [Moles/Vol] 2.4 mmol/L High 0.5-2.2 [facility] Comment on above: Performed By: #### V ALLBG ####[address] [place] [phone] Methemoglobin 1.2 % Normal <1.6 [facility] Comment on above: Performed By: #### V ALLBG ####[place] [phone] O2 Administered 100% Normal [facility] Comment on above: Performed By: #### V ALLBG ####[place] [phone] Oxyhemoglobin, Ziyad. 98 % High 60-85 [facility] Comment on above: Performed By: #### V ALLBG ####[place] [phone] pCO2 46 mm Hg Normal 42-55 [facility] Comment on above: Performed By: #### V ALLBG ####[place] [phone] pCO2, Temp Correct 46 mm Hg Normal 42-55 [facility] Comment on above: Performed By: #### V ALLBG ####[place] [phone] pH (Bld) 7.33 [pH] Normal 7.32-7.42 [facility] Comment on above: Performed By: #### V ALLBG ####[place] [phone] pH, Temp Corrected 7.33 Normal 7.32-7.42 [facility] Comment on above: Performed By: #### V ALLBG ####[place] [address], [place] [phone] pO2 246 mm Hg High 35-45 [facility] Comment on above: Performed By: #### V ALLBG ####[facility] [place], [place] [phone] pO2, Temp Corrected 246 mm Hg High 35-45 [facility] Comment on above: Performed By: #### V ALLBG ####[place] [address], [place] [phone] Potassium [Moles/Vol] 4.4 mmol/L Normal 3.5-5.0 [facility] Comment on above: Performed By: #### V ALLBG ####[place] [address] [address], [place] [phone] Sodium [Moles/Vol] 143 mmol/L Normal 136-144 [facility] Comment on above: Performed By: #### V ALLBG ####[address] [phone] HISTORY PHYSICALon HISTORY PHYSICAL HNO ID: [id number] Author: Kayce Ricardo MD Service: Radiology Author [...] April 26, 2021 TIME: 8:54 PM Normal [facility] Magnesiumon 04-26-2021 Magnesium [Mass/Vol] 1.9 mg/dL Normal 1.7-2.3 [facility] Comment on above: Performed By: #### C BC, MG1, PT, PTT, BMP, PHOS ####[facility] [address] [place], [place] [phone] NURSING PROGon 04-26-2021 NURSING PROG HNO ID: [id number] Author: Jack Richards RN Service: Nursing Author Type: Registered Nurse Type: Nursing Progress Note Filed: 04/26/2021 9:21 PM Note Text: Nursing Progress: Topic: RESTRAINT NON-VIOLENT PATIENT NAME: Oscar Pineda PATIENT LOCATION: [place] [address] The patient demonstrates Lack of Understanding/Ability to [...] TIME: 8:00 PM Jack Richards RN Normal [facility] NURSING PROG HNO ID: [id number] Author: Karsten Goldsmith RN Service: Nursing Author Type: Registered Nurse Type: Nursing Progress Note Filed: 04/26/2021 6:59 PM Note Text: Nursing Progress: Topic: RESTRAINT NON-VIOLENT PATIENT NAME: Oscar Pineda PATIENT LOCATION: [place] [address]/[facility] The patient demonstrates Lack of Understanding/Ability to [...] TIME: 6:58 PM Karsten Goldsmith RN Normal [facility] PT EDon 04-26-2021 PT ED HNO ID: [id number] Author: Agnes Schaefer RN Service: Interventional Radiology [...] SUPPLEMENTAL MATERIAL: None REFERRAL (RECOMMENDATION): None Normal [facility] Phosphoruson 04-26-2021 Phosphate [Mass/Vol] 3.1 mg/dL Normal 2.7-4.8 [facility] Comment on above: Performed By: #### C BC, MG1, PT, PTT, BMP, PHOS ####[facility] [place], [place] [phone] Protimeon 04-26-2021 PT INR 1.1 Normal 0.9-1.3 [facility] Comment on above: Result Comment: Neha min K Antagonist (VKA) Therapeutic Range: INR 2 to 3 (Target INR of 2.5) Note: For patients treated with VKA drugs, such as warfarin, the [place] [employer] 2012 Guideline recommends [...] Chest 2012, 141:7S-47S Daphne PEDERSON et al. [facility] 2017, 70: 252-289 Performed By: #### C BC, MG1, PT, PTT, BMP, PHOS ####[place] [id number], [place] [phone] PT Sec 11.9 sec Normal 9.7-13.0 [facility] Comment on above: Performed By: #### C BC, MG1, PT, PTT, BMP, PHOS ####[facility] [address] [place], [place] [phone] Staph aureus PCRon 1 MRSA PCR Negative Normal [facility] Comment on above: Performed By: #### S APCR ####[facility] [place], [place] [phone] S aureus Spec Source Nasal Normal [facility] Comment on above: Performed By: #### S APCR ####[place] [id number] [place], [place] [phone] Staph aureus PCR Negative Normal [facility] Comment on above: Performed By: #### S APCR ####[place] [address] [address], [place] [phone] XR ABDOMEN 1V SUPINEon 04-26 XR ABDOMEN [...] loops of bowel. No focal bony abnormality. Strawberry Grower: Spotie Transcribe Date/Time: Apr 26 2021 2:53P Dictated by : RAMIN BROWNLEE MD This examination was interpreted and the report reviewed and electronically signed by: RAMIN BROWNLEE MD on Apr 26 2021 3:05PM EST [id number] Normal [facility] XR CHEST 1V FRONTAL PORTon 1 [...] No acute process identified. IMPRESSION: See result. Strawberry Grower: PSCDataCore Software Transcribe Date/Time: Apr 26 2021 6:05P Dictated by : JASON LOWE MD This examination was interpreted and the report reviewed and electronically signed by: JASON LOWE MD on Apr 26 2021 6:07PM EST [id number] Normal [facility] XR CHEST 1V FRONTAL PORT * [...] No acute process identified. IMPRESSION: See result. Strawberry Grower: PSCB Transcribe Date/Time: Apr 26 2021 3:57P Dictated by : JASON LOWE MD This examination was interpreted and the report reviewed and electronically signed by: JASON LOWE MD on Apr 26 2021 3:58PM EST [id number] Normal [facility] NURSING PROGon 04-24-2021 NURSING PROG HNO ID: [id number] Author: Shereen Kwok LPN Service: ? Author Type: LICENSED NURSE Type: Nursing Progress Note Filed: 04/24/2021 2:42 PM Note Text: Pre-procedure instructions: Contacted patient and confirmed appt. for Cryoablation scheduled on 04/26/21, at [facility]. Diet: Do not eat solid food after [...] signed. Arrival at 6:30am to desk QB-1 ([facility]) and check in for your procedure. Electrical Systems Designer/Transportation: How will you be arriving for your procedure? Private car. If you will be arriving at [facility] via ambulance or public transportation, please call to discuss. You will need a responsible adult to accompany you to and from the procedure. Your route sales driver is required to stay with you until you are taken into the Procedure room. [facility] is currently restricting visitors to two visitors per patient. No visitor under the age of 16. You and your visitor will be screened for temperature and COVID-19 symptoms upon entry to the hospital, and a wristband will be applied when cleared. If you develop any of the following symptoms before your procedure, please call [phone]. Chills, joint pain, rash, sore throat, cough, [...] No Written instructions provided to patient via Partschannelt If you have any questions please call [phone] Normal [facility] MRI ABDOMEN WO/W IVCONon [facility] Vital Signs Date Time Vital Sign Value Performing Clinician Facility 10-10-2022 10:00-0400 Body height 161.29 cm Shaun Valentine Other [facility] Other 10-10-2022 10:00-0400 Body mass index (BMI) [Ratio] 23.08 kg/m2 Shaun Ball Other [facility] Other 10-10-2022 10:00-0400 Body weight 60.06 kg Shaun Ball Other [facility] Other 10-10-2022 10:00-0400 Diastolic blood pressure 76 mm[Hg] Shaun Ball Other [facility] Other 10-10-2022 10:00-0400 Respiratory rate 12 /min Shaun Ball Other [facility] Other 10-10-2022 10:00-0400 Systolic blood pressure 110 mm[Hg] Shaun Ball Other [facility] Other 04-28-2022 15:46-0400 Body temperature 99.5 [degF] Melani Russell MD Work Phone: [facility] 04-28-2022 15:46-0400 Body weight 76.39 kg Melani Russell MD Work Phone: [facility] 04-28-2022 15:46-0400 Diastolic blood pressure 76 mm[Hg] Melani Russell MD Work Phone: [facility] 04-28-2022 15:46-0400 Heart rate 71 /min Melani Russell MD Work Phone: [facility] 04-28-2022 15:46-0400 Respiratory rate 20 /min Melani Russell MD Work Phone: [facility] 04-28-2022 15:46-0400 SaO2% (BldA) [Mass fraction] 97 % Melani Russell MD Work Phone: [facility] 04-28-2022 15:46-0400 Systolic blood pressure 131 mm[Hg] Melani Russell MD Work Phone: [facility] Encounters Encounter Date Encounter Type Care Provider Facility Start: 09-21-2023 End: 09-21-2023 ambulatory SUKHJINDER AUDELIA Not Available Start: 09-07-2023 End: 09-07-2023 ambulatory SUKHJINDER AUDELIA Not Available Start: 08-24-2023 End: 08-24-2023 ambulatory SUKHJINDER AUDELIA [...] examination without abnormal findings DR SHAUN VALENTINE [facility] Start: 10-27-2022 Telephone encounter Shaun Valentine [facility] Start: 10-27-2022 End: 10-28-[address] SHAUN VALENTINE [facility] Other Start: 10-27-2022 End: 10-28-2022 Encounter for general adult medical examination without abnormal findings DR SHAUN VALENTINE Facility: Start: 10-10-2022 End: 10-10-2022 ambulatory Shaun Valentine Other [facility] Other Start: 10-10-2022 Encounter for genera l adult medical examination without abnormal findings Shaun Valentine [facility] Start: 10-10-2022 Periodic preventive med est patient 18-39 yrs Shaun Valentine [facility] Start: 04-28-2022 End: 04-29-2022 ambulatory Melani Russell MD Work Phone: Hematology/Oncology Comment on above: History of tumor (Pr imary Dx) Start: 04-28-2022 End: 04-29-2022 Patient encounter procedure Melani Russell MD Work Phone: [facility] Start: 04-21-2022 End: 04-21-2022 ambulatory MELANI RUSSELL Facility:[facility] Start: 04-21-2022 End: 04-21-2022 Subsequent hospital visit by physician Kiel [employer] [facility] (I-Stat/1.5t/3t) Work Phone: MRI Q 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] Start: 11-14-2021 ambulatory Melani Larrytatum Hutchison Work Phone: Hematology/Oncology 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 Start: 10-28-2021 Telephone encounter Melani Acuña rd, MD Work Phone: Hematology/Oncology Comment on above: Care Coordination Start: 09-27-2021 End: 09-27-2021 ambulatory MELANI RUSSELL Facility:[facility] Start: 09-20-2021 End: 09-20-2021 ambulatory MELANI RUSSELL Facility:[facility] Start: 05-07-2021 End: 05-07-2021 ambulatory ALEX URBANO [facility] Start: 05-06-2021 End: 05-06-2021 ambulatory ALEX URBANO [facility] Start: 04-26-2021 End: 04-30-2021 Evaluation and management of inpatient KAYCE RICARDO [facility] Start: 02-28-2021 End: 02-28-2021 Subsequent hospital visit by physician Kiel [facility] Miriam (I-Stat/1.5t) Radiology Comment on above: Intra-abdominal and pelvic swelling, mass and lump, unspecified site [R19.00] Procedures Date Procedure Procedure Detail Performing Clinician Start: 04-29-2021 Antibody screen ALEX URBANO Comment on above: Performed By: #### T SCR ####[facility] [address] [place], [place] [phone] Start: 04-26-2021 Antibody screen ALEX URBANO Comment on above: Performed By: #### T SCR ####[place] [id number] [place], [place] [phone] Start: 02-28-2021 Mri abdomen w/o & w/contrast material Cortez Carter MD Work Phone: Plan of Treatment Date Care Activity Detail Author Start: 03-20-2023 Covid-19 Vaccine () Covid-19 Vaccine () [facility] Start: 03-20-2023 Influenza vaccination [facility] Start: 10-28-2022 End: 05-29-2023 Mri abdomen w/o & w/contrast material MRI ABDOMEN WO/W IVCON Radiology Routine History of tumor Expected: 10/28/2022, Expires: 05/29/2023 [facility] Work Phone: Comment on above: Expected: 10/28/2022 , Expires: 05/29/2023 Start: 10-28-2022 End: 05-29-2023 Mri pelvis w/o & w/contrast material MRI PELVIS WO/W IVCON Radiology Routine History of tumor Expected: 10/28/2022, Expires: 05/29/2023 [facility] Work Phone: Comment on above: Expected: 10/28/2022 , Expires: 05/29/2023 Start: 10-26-2022 End: 12-26-2022 CBC W Auto Differential panel - Blood ABS GRAN CT + CBC Lab Routine History of tumor Expected: 10/26/2022 (Approximate), Expires: 12/26/2022 [facility] Work Phone: Comment on above: Expected: 10/26/2022 (Approximate), Expires: 12/26/2022 Start: 10-26-2022 End: 12-26-2022 Comprehensive metabolic 2000 panel - Serum or Plasma COMP METABOLIC PANEL Lab Routine History of tumor Expected: 10/26/2022 (Approximate), Expires: 12/26/2022 [facility] Work Phone: Comment on above: Expected: 10/26/2022 (Approximate), Expires: 12/26/2022 Start: 07-20-2022 DEPRESSION ASSESSMENT DEPRESSION ASS ESSMENT [facility] Start: 03-20-2022 Influenza vaccination [facility] Start: 09-12-2021 COVID-19 VACCINE (3 - Booster for Pfizer series) COVID-19 VACCINE (3 - Booster for Pfizer series) [facility] Start: 07-20-2021 DEPRESSION ASSESSMENT DEPRESSION ASS ESSMENT [facility] Start: 06-07-2021 COVID-19 VACCINE (3 - Booster for Pfizer series) COVID-19 VACCINE (3 - Booster for Pfizer series) [facility] Start: 06-07-2021 COVID-19 VACCINE (3 - Pfizer series) COVID-19 VACCINE (3 - Pfizer series) [facility] Start: 03-15-2020 Urine microalbumin profile DTaP,Tdap,Td Vaccine (2 - Tdap) [facility] Start: 2014 HPV TESTING HPV TESTING [facility] Start: 2005 PAP TESTING PAP TESTING [facility] Start: 2003 Urine microalbumin profile DTAP,TDAP,TD (1 - Tdap) [facility] Start: 2002 HEPATITIS C SCREENING HEPATITIS C SC REENING [facility] Start: 2002 HIV SCREENING HIV SCREENING [facility] Start: 1996 Adult depression screening assessment DEPRESSION SCREENING [facility] Start: 1984 HEPATITIS B (1 of 3 - 3-dose series) HEPATITIS B (1 of 3 - 3-dose series) [facility] Start: 1984 Hepatitis B Vaccine (1 of 3 - 3-dose series) Hepatitis B Vaccine (1 of 3 - 3-dose series) [facility] End: 04-21-2022 Mri abdomen w/o & w/contrast material [facility] Work Phone: Comment on above: 1 Occurrences starti ng 04/21/2022 until 04/21/2022 End: 04-21-2022 Mri pelvis w/o & w/contrast material [facility] Work Phone: Comment on above: 1 Occurrences starti ng 04/21/2022 until 04/21/2022 [facility] Immunizations Immunization Date Immunization Notes Care Provider Ana lucas 04-12-2021 COVID-19 Vaccine Pfi zer - Documentation Purposes Only Shaun Valentine Other [facility] Other 03-22-2021 COVID-19 Vaccine Pfi zer - Documentation Purposes Only Shaun Valentine Other [facility] Other 06-09-2019 influenza virus vaccine, unspecified formulation Mri (I-Stat/1.5t) [facility] Payers Date Payer Category Payer Private Health Insurance [employer] A ETNA CHOICE POS II [id number] 2015-Present [phone] [address] [place] [address] POS [id number] 2015 Private Health Insurance [id number] 1984 Unknown [id number] 1984 Unknown [id number] 1984 Unknown [id number] 1984 Unknown [id number] 1984 Unknown [id number] 1984 Unknown [id number] .[id number] 1984 Unknown [id number] .[id number] 1984 Unknown [id number] 1959 Private Health Insurance [id number] Private Health Insurance [id number] Social History Date Type Detail Facility Start: [facility] Start: 02-14-2021 Tobacco use and exposure Smoke less tobacco non-user [facility] Start: 1985 Sex Assigned At Female [facility] Start: 01-15-2021 End: 04-28-2022 Exposure to SARS-CoV-2 (event) Not sure [facility] Start: 02-14-2021 End: 05-07-2021 Sex Assigned At [facility] Start: 02-14-2021 End: 05-07-2021 History of Social function [facility] Adult Depression Screening Assessment 0 [facility] Start: 02-26-2021 Gender identity Identifies as female gender (finding) [facility] Start: 03-27-2021 Sexual orientation Heterosexual (fin ding) [facility] Clinical Notes 02-28-2021 to 10-10-2022 Note Date & Type Note Facility 10-10-2022 Evaluation note Encounter Date Diagnosis Assessment Notes Sep, Wellness examination (ICD-10 - Z00.00) Sep, Hair thinning (ICD-10 - L65.9) Check H/H and TSH Not scarring [facility] Other 10-11-2022 History of Present illness Narrative* [...] Hematology and Medical Oncology [facility] Nurse Note* Aliya Jean Baptiste RN - 04/28/2022 3:43 PM EDT Additional intake questions: Has the patient had fever, nausea, vomiting, diarrhea, constipation, fatigue for > 1 week? No Does the patient have a decreased appetite? No Does patient want to see a Site Director? No (yes to any of above refer [...] Aliya Jean Baptiste RN [facility]-2022 NoteHNO ID: [id number] Author: Erin Garcia RN Service: ? Author [...] Pineda DATE: April 21, 2022 [facility]: 5[facility] NoteHNO ID: [id number] Author: RT Toby(R) Service: Radiology Author Type: [...] BY: RT Toby(R) April 21, 2022 6:08 [facility]10-03-2022 History of Present illness Narrative* Erin Garcia [...] 21, 2022 6:08 PM documented [facility]04-13-2022 Miscellaneous Notes* Telephone Encounter - Brittany Kateryna [facility] - 10/30/2021 3:24 PM EDT Patient calling stating she has not received a call back, Please call @ [phone] * Telephone Encounter - Brittany Avendaño [facility] - 10/28/2021 10:02 AM EDT Oscar Pineda is calling Melani Russell MD today regarding Care Coordination,calling with questions about with her condition. Patient has been identified by name and birthdate. Duration of symptoms: N/A Requesting response back: call on cell [phone] (home) [phone] (cell) Brittany Avendaño [facility] October 28, 2021 documented in [facility]03-[facility]-2022 NoteHNO ID: [id number] Author: Melani Russell MD Service: ? Author Type: Physician Type: Progress Notes Filed: 10/07/2021 12:24 PM Note Text: [facility] ESTABLISHED PATIENT VISIT PATIENT NAME: Oscar Pineda [...] Melani Pérez MD Internal Medicine Resident, PGY-1 [facility] 09/27/2021 SOLID TUMOR STAFF: ATTENDING PHYSICIAN NOTE [...] Russell MD, PhD Staff, Hematology and Medical OncologyP[facility]03-[facility]-2022 Note HNO ID: [id number] Author: Shannan Ansari RT(R) Service: Radiology Author Type: Technologist Type: [...] BY: RT Eduardo(R) September 20, 2021 4:17 [facility]03-04-2022 NoteHNO ID: [id number] Author: Ronda Arora Service: ? Author Type: [...] Pineda DATE: September 20, 2021 TIME: 3:22 [facility]10-18-2021 NoteHNO ID: [id number] Author: LANETTE De Leon Service: ? Author Type: Genetic Counselor Type: Progress Notes Filed: 05/24/2021 11:18 AM Note Text: [facility] Consultation Note Genetic Counselor: Melida Quintero MS, [facility] Patient: Oscar Pineda Patient Name and confirmed at initiation of visit Visit was done virtually via Zoom Portions of the visit were done by genetic counseling human resource intern Suzanna Fishman under my supervision HIGH [...] unknown descent and paternal ancestors are of Luxembourgish and [place]yanese descent. There is no Ashkenazi Methodist ancestry. The patient had limited information about [...] that the patient's genetic (more content not included)...[facility]10-12-2021 NoteHNO ID: [id number] Author: Katty Logan APRN.RFID STRATEGIST Service: Critical Care Author Type: Nurse Practitioner [...] the A/P section below. Please refer to [facility] for list of inpatient medications. VITAL SIGNS: [...] room air today KIMBER (more content not included)...[facility]10-11-2021 NoteHNO ID: [id number] Author: Kayce Ricardo MD Service: Radiology Author [...] her to go home. Kayce Ricardo MD [phone] Hospital10-11-2021 NoteHNO ID: [id number] Author: Marva Stiles APRN.[facility] Service: Critical Care Author Type: Nurse Practitioner [...] Completed decadron -> transitioned to medrol. Consulted [facility] for transfer of service. Addendum @ 1115: pt to remain in SICU, [facility] does not feel comfortable accepting pt given supplemental O2 needs and < 24 hrs since extubation. Objective MEDICATIONS: Current medications and allergies reviewed. Recommended/planned medication changes discussed in detail in the A/P section below. Please refer to [facility] for list of inpatient medications. 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 Pt suffered iatrogenic air embolism to [...] April 29, 2021 TIME: 8:45 AM PAGER/CONTACT #:[facility]10-10-2021 NoteHNO ID: [id number] Author: Sara Guzman APRN.RFID STRATEGIST Service: Critical Care Author Type: Nurse Practitioner [...] the A/P section below. Please refer to [facility] for list of inpatient medications. VITAL SIGNS: [...] Is Patient Clinically Ready to Transfer to [facility] or SDU?: No Discharge Planning: To [...] Current Assessment AND Pl (more content not included)...[facility]10-10-2021 NoteHNO ID: [id number] Author: Jose M Cedillo MD Service: Interventional [...] who presented for cryoablation on 04/26 with [facility] radiology. Pt suffered iatrogenic air embolism to [...] April 29, 2021 TIME: 8:34 AM PAGER/CONTACT #:[facility]10-09-2021 NoteHNO ID: [id number] Author: Ana Bautista RT(R) Service: Radiology Author [...] Not applicable SIGNED BY: Ana Bautista, RD, EARLT, Wallace April 27, 2021 12:23 [facility]10-09-2021 History of Past illness Narrative* Problem Noted [...] of this encounter (statuses as of 11/01/2021) [facility]10-09-2021 History of Past illness Narrative* Problem [...] of this encounter (statuses as of 11/19/2021) [facility]10-09-2021 History of Past illness Narrative* Problem [...] on 100% FiO2 Assessment: extubated, desaturation on 04/29 Diuresed with 20mg lasix yesterday 04/29 [...] of this encounter (statuses as of 04/22/2022) [facility]10-09-2021 History of Past illness Narrative* Problem [...] of this encounter (statuses as of 04/29/2022) [facility]10-09-2021 History of Past illness Narrative* Problem [...] of this encounter (statuses as of 02/25/2023) [facility]10-09-2021 NoteHNO ID: [id number] Author: Anila Wise APRN.NGUYEN Service: Critical Care Author Type: Nurse [...] Is Patient Clinically Ready to Transfer to [facility] or SDU?: No Discharge Planning: To [...] Pulmonary Acute respiratory insufficie (more content not included)...[facility]10-09-2021 NoteHNO ID: [id number] Author: Jose M Cedillo MD Service: Interventional [...] to look for air in the hepatic veinsPomerene Hospital 04-27-2021 NoteHNO ID: [id number] Author: Interface Note Service: ? Author Type: ? Type: Progress Notes Filed: 04/27/2021 2:51 AM Note Text: [facility] Scheduled Downtime: 04/27/2021 1:00:00 AM to 04/27/2021 2:33:00 [facility]10-08-2021 NoteHNO ID: [id number] Author: Marva Stiles APRN.NGUYEN Service: Critical Care [...] the A/P section below. Please refer to [facility] for list of inpatient medications. VITAL SIGNS: [...] Is Patient Clinically Ready to Transfer to [facility] or SDU?: No Discharge Planning: To [...] 1245 vte pharmacologic prophyl (more content not included)...[facility]10-08-2021 NoteHNO ID: [id number] Author: Galdino Gaona DO Service: Critical Care Author Type: Fellow Type: Procedures Filed: 04/26/2021 4:34 PM Note Text: BEDSIDE PROCEDURE NOTE CENTRAL LINE INSERTION Date/Start Time: 04/26/2021 4:33 PM Performed by: Galdino Gaona DO Authorized by: Polly Reyna MD Informed Consent Consent Obtained: Written [place] Protocol A moment to CARE was completed. [...] was applied following the usual aseptic technique. [facility] Central Line Insertion Checklist, attached to [...] Pineda DATE: April 26, 2021 TIME: 4:32 [facility]10-08-2021 NoteHNO ID: [id number] Author: Polly Reyna MD Service: Critical Care [...] a central line for any emergency. Veronika Ryena MD SICU Staff. Critical Care Time: 120 minutesPomerene Hospital10-08-2021 NoteHNO ID: [id number] Author: ELE Rodriguez Service: Radiology Author Type: Clinical Candlemaker Type: Progress Notes Filed: 04/26/2021 1:47 PM [...] BY: ELE Rodriguez April 26, 2021 1:46 [facility]08-12-2021 History of Present illness Narrative* Altagracia Langford [...] piercings RADIOLOGY DEPARTMENT: MR; Exam(s) Completed: mr lopez/msk wwo 15cc dotarem existing l ac iv, Lizzy Perez RN PERIPHERAL IV DATA: Site assessment: Clean,Dry and Intact, Site disposition Discontinued SIGNED BY: Jesu GaonaAKinza,RT (R) (CT)(MR) February 28, 2021 12:12 PM [facility]* 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 Intra-abdominal and pelvic swelling, mass and lump, unspecified site Abdominal mass, unspecified abdominal location documented in this encounter [facility] note* Diagnosis History of tumor- Primary Personal history of other specified diseases documented in this encounter [facility] noteNo [employer] Other History general Narrative - Reported* Type Description Date Medical History Fatigue Medical History Gall bladder polyp Medical History Atopic dermatitis, mild Medical History DESMOID FIBROMATOSIS Surgical History C section x 3 Surgical History wisdom teeth Surgical History RIGHT ABDOMINAL WALL MASS Hospitalization History see above [facility] Other Advance Directives No Advanced Directives Records FoundDocuments on File Type Date Recorded 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 Advance Directive(s) 04/10/2021 12:55 PM Advance Directive(s) 03/07/2021 6:15 PM Reason for Referral Specialty Diagnoses / Procedures Referred By Contac t Referred To Contact MR IMAGING Diagnoses Desmoid Abdominal mass, unspecified abdominal location Procedures MRI PELVIS WO/W IVCON MRI PELVIS W/O & W/CONTRAST MATERIAL Melani Russell MD [address] [place] [address] Mr Imaging Referral ID Status Reason Start Date Expiration Date V isits Requested Visits Authorized [id number] Closed Auto-Generate d Referral 03/30/2022 10/27/2022 1 1 Specialty Diagnoses / Procedures Referred By Contac t Referred To Contact MR IMAGING Diagnoses Desmoid Intra-abdominal and pelvic swelling, mass and lump, unspecified site Procedures MRI ABDOMEN WO/W IVCON MRI ABDOMEN W/O & W/CONTRAST MATERIAL Melani Russell MD [address] [place] [address] Mr Imaging Referral ID Status Reason Start Date Expiration Date V isits Requested Visits Authorized [id number] Closed Auto-Generate d Referral 03/30/2022 10/27/2022 1 1 Specialty Diagnoses / Procedures Referred By Contac t Referred To Contact MR IMAGING Diagnoses History of tumor Procedures MRI PELVIS WO/W IVCON MRI PELVIS W/O & W/CONTRAST MATERIAL Melani Russell MD [address] [place] [address] Mr Imaging Referral ID Status Reason Start Date Expiration Date Visits Requested Visits Authorized [id number] Pending Review Auto-Generat ed Referral 10/28/2022 05/29/2023 1 1 Specialty Diagnoses / Procedures Referred By Katie verdugo Referred To Contact MR IMAGING Diagnoses History of tumor Procedures MRI ABDOMEN WO/W IVCON MRI ABDOMEN W/O & W/[place] [address] [place] [address] Mr Imaging Referral ID Status Reason Start Date Expiration Date Visits Requested Visits Authorized [id number] Pending Review Auto-Generat ed Referral 10/28/2022 05/29/2023 [...] or prosecute any alcohol or drug abuse patient.[facility] the event this information is protected by the Federal Confidentiality of Alcohol and Drug Abuse Patient Records regulations: The Federal rules restrict any use of the information to criminally investigate or prosecute any alcohol or drug abuse patient.[facility] the event this information is protected by the Federal Confidentiality of Alcohol and Drug Abuse Patient Records regulations: The Federal rules restrict any use of the information to criminally investigate or prosecute any alcohol or drug abuse patient.[facility] the event this information is protected by the Federal Confidentiality of Alcohol and Drug Abuse Patient Records regulations: The Federal rules restrict any use of the information to criminally investigate or prosecute any alcohol or drug abuse patient.[facility] the event this information is protected by the Federal Confidentiality of Alcohol and Drug Abuse Patient Records regulations: The Federal rules restrict any use of the information to criminally investigate or prosecute any alcohol or drug abuse patient.[facility] the event this information is protected by the Federal Confidentiality of Alcohol and Drug Abuse Patient Records regulations: The Federal rules restrict any use of the information to criminally investigate or prosecute any alcohol or drug abuse patient.[facility] Reason for Visit (unrecogniz ed section and content) Reason Comments Care Coordination Reason Comments Radiology MRI Specialty Diagnoses / Procedures Referred By Contac t Referred To Contact MR IMAGING Diagnoses Desmoid Intra-abdominal and pelvic swelling, mass and lump, unspecified site Procedures MRI ABDOMEN WO/W IVCON MRI ABDOMEN W/O & W/CONTRAST MATERIAL [place], [place] [address] [place] [address] Mr Imaging Referral ID Status Reason Start Date Expiration Date V isits Requested Visits Authorized [id number] Closed Auto-Generate d Referral 03/30/2022 10/27/2022 1 1 Reason Comments Established Patient Reason Comments Radiology MRI Specialty Diagnoses / Procedures Referred By Katie verdugo Referred To Contact MR IMAGING Diagnoses Intra-abdominal and pelvic swelling, mass and lump, unspecified site Procedures MRI ABDOMEN WO/W IVCON MRI,ABDOMEN,W&WO Cortez Dubois MD [address] [place] [address] [place] [address] Referral ID Status Reason Start Date Expiration Date V isits Requested Visits Authorized [id number] Closed Auto-Generate d Referral 02/14/2021 03/16/2022 1 1 Care Teams (unrecognized sec tion and content) Statue Maker Relationship Specialty [place] [address] [place] [address] Physician Hematology/Oncology 05/20/21 Chey Tamayo RN [address] [place] [address] Specialty Clinical Asst Oncology 05/20/21 Statue Maker Relationship Specialty [place] [address] [place] [address] Physician Hematology/Oncology 05/20/21 Claritza Tamayo RN [address] [place] [id number] Specialty Clinical Asst Oncology 05/20/21 Statue Maker Relationship Specialty Start Date End Date Melani Russell MD [address] [place] [id number] Physician Hematology/Oncology 05/20/21 [place] [address] [place] [address] Specialty Clinical Asst Oncology 05/20/21 Statue Maker Relationship Specialty [place] [address] [place], [place] [id number] Physician Hematology/Oncology 05/20/21 [place] [address] [place], [place] [id number] Specialty Clinical Asst Oncology 05/20/21 Statue Maker Relationship Specialty Start Date End Date Melani Russell MD [address] [place] [address] [id number] Physician Hematology/Oncology 05/20/21 [place] [address] [place] [address] Specialty Clinical Asst Hematology/Oncology 06/10/22 INFORMATION SOURCE (unrecogn ized section and content) DATE CREATED AUTHOR 04/23/2022 [facility] DATE CREATED AUTHOR AUTHOR'S ORGANIZ ATION 11/02/2022 [facility] DATE CREATED AUTHOR AUTHOR'S ORGANIZ ATION 09/22/2023 [facility] Specialists [facility] FOR RECORDS PERTAINING TO PATIENTS WHO ARE [...] BE BASED ON THE PRIMARY CLINICAL RECORDS. [employer] provides no warranty or guarantee of the accuracy or completeness of information in this document.
--- NOTE | 2023-09-25 09:47 | US_ITS ---
[address] [address] Patient Name: OSCAR MELO MRN: [facility]:[id number] date: 1985 Sex: F Assigned Patient Location: [facility] Current Patient Location: US Accession/Order Number: [id number] Exam Date: 09/25/2023 09:54 Report Date: 09/25/2023 12:07 At the request of: SUKHJINDER WIN Procedure: US OB growth EXAMINATION: US OB growth HISTORY: EXCESSIVE GROWTH AFFECTING O36.60X0 COMPARISON: Ultrasound OB growth 08/28/2023 FINDINGS: Heart Rate: 131.1 bpm Number: 1.0 Position: CEPHALIC Amniotic Fluid Volume: 12.3 cm Maximum Vertical Pocket: 4.5 cm BIOMETRY: BPD: 9.5 cm cm; 38 weeks 4 days; >97% HC: 33.7 cmcm; 38 weeks 5 days ; 83% AC: 33.1 cm cm; 37 weeks 0 days; 85% FL: 7.0 cm cm; 35 weeks 5 days; 38% EFW: 3101.8 grams; 79% FL/AC: 21.0 FL/BPD: 73.7 HC/AC: 1.0 GESTATIONAL AGE: Age by EDC: 36 weeks 0 days FUENTES by EDC: 10/23/2023 Age by US: 37 weeks 4 days FUENTES by US: 10/12/2023 US/US OB growth IMPRESSION: 1. Single live intrauterine with growth detailed above. 2. Biparietal diameter is greater than 97th percentile; also present on prior study. Electronically authenticated by: ADRIAN BRYANT Date: 09/25/2023 12:07
--- NOTE | 2023-09-25 09:48 | US_ITS ---
[address] [address] Patient Name: OSCAR MELO MRN: [facility]:[id number] date: 1985 Sex: F Assigned Patient Location: [facility] Current Patient Location: Accession/Order Number: [id number] Exam Date: 09/25/2023 09:54 Report Date: 09/25/2023 11:46 At the request of: SUKHJINDER WIN Procedure: US OB BPP w non-stress EXAMINATION: US OB BPP w non-stress HISTORY: EXCESSIVE GROWTH AFFECTING O36.60X0 COMPARISON: Ultrasound OB growth 08/28/2023 TECHNIQUE: Ultrasound biophysical profile was performed in the radiology department. BREATHING MOVEMENTS: 2.0 GROSS BODY MOVEMENTS: 2.0 TONE: 2.0 QUALITATIVE AMNIOTIC FLUID VOLUME: 2.0 PRESENTATION: CEPHALIC HEART RATE: 131.1 bpm bpm. AMNIOTIC FLUID VOLUME: 12.3 cm GESTATIONAL AGE: 36 weeks 0 days CONCLUSION: Total biophysical profile score 8.0. Electronically authenticated by: ADRIAN BRYANT Date: 09/25/2023 11:46
--- OUTSIDE RECORDS SUMMARY | 2023-09-25 09:55 | XMS_ITS | CCD ---
Author Name Unknown Address [email or web address] [place] [address] Organization [facility] Care Team Providers Care Fire Sprinkler Fitter Name Role Phone Drew JAMES, Melani Unavailable Yariel GARCIA, Chey Unavailable Yariel GARCIA, Claritza Andrade Unavailable [phone] Melani Russell MD Unavailable Claritza Tamayo RN [...] Translations: [CODEINE] Drug Allergy 1 GI Upset [facility] (7 sources) Adhesive Tape-Silicones; Translations: [ADHESIVE TAPE-SILICONES] Drug Allergy 1 Other: See Comments [facility] (2 sources) Adhesive agent Drug allergy Unknown [facility] Other (2 sources) Codeine Drug Allergy nausea [facility] Other (1 source) Codeine Drug Allergy 1 [facility] (1 source) Desonide Drug Allergy 1 [facility] Medications Current Medications Medication Drug [...] 10-27-2022 BASO # 0.1 103/ul Normal 0.0-0.1 [facility] Comment on above: Performed By: #### C BC #### [facility] [address] [place] [address] Dr. Rancho Cobos Basophils/100 WBC (Bld) 0.9 % Normal 0.2-2.0 [facility] Comment on above: Performed By: #### C BC #### [facility] [address] [place] [address] Dr. Rancho Cobos EO # 0.1 103/ul Normal 0.0-0.7 [facility] Comment on above: Performed By: #### C BC #### [facility] [address] [place] [address] Dr. Rancho Cobos Eosinophils/100 WBC (Bld) 1.4 % Normal 0.9-7.0 [facility] Comment on above: Performed By: #### C BC #### [facility] [address] [place] [address] Dr. Rancho Cobos Erythrocyte distribution width (RBC) [Ratio] 11.8 % Normal 11.0-15.0 [facility] Comment on above: Performed By: #### C BC #### [facility] [address] [place] [address] Dr. Rancho Cobos Hematocrit (Bld) [Volume fraction] 38.5 % Normal 36.0-48.0 [facility] Comment on above: Performed By: #### C BC #### [facility] [address] [place] [address] Dr. Rancho Cobos Hemoglobin (Bld) [Mass/Vol] 13.3 g/dL Normal 12.0-16.0 [facility] Comment on above: Performed By: #### C BC #### [facility] [address] [place] [address] Dr. Rancho Cobos IG # 0.01 10e3/ul Normal 0.00-0.03 [facility] Comment on above: Performed By: #### C BC #### [facility] [address] [place] [address] Dr. Rancho Cobos IG % 0.2 % Normal 0.0-0.5 [facility] Comment on above: Performed By: #### C BC #### [facility] [address] [place] [address] Dr. Rancho Cobos LYMPH # 1.7 103/ul Normal 1.2-3.8 [facility] Comment on above: Performed By: #### C BC #### [facility] [address] [place] [address] Dr. Rancho Cobos Lymphocytes/100 WBC (Bld) 31.2 % Normal 20.5-60.0 [facility] Comment on above: Performed By: #### C BC #### [facility] [address] [place] [address] Dr. Rancho Cobos MANUAL DIFF REQ NO Normal [facility] Comment on above: Performed By: #### C BC #### [facility] [address] [place] [address] Dr. Rancho Cobos MCH (RBC) [Entitic mass] 31.9 pg Normal 26.7-34.0 [facility] Comment on above: Performed By: #### C BC #### [facility] [address] [place] [address] Dr. Rancho Cobos MCHC (RBC) [Mass/Vol] 34.5 g/dL Normal 29.9-35.2 [facility] Comment on above: Performed By: #### C BC #### [facility] [address] [place] [address] Dr. Rancho Cobos MCV (RBC) [Entitic vol] 92.3 fL Normal 81.0-99.0 [facility] Comment on above: Performed By: #### C BC #### [facility] [address] [address] [address] Rancho Cobos MONO # 0.3 103/ul Normal 0.3-0.8 [facility] Comment on above: Performed By: #### C BC #### [facility] [address] [address] [address] Rancho Cobos Monocytes/100 WBC (Bld) 5.2 % Normal 1.7-12.0 [facility] Comment on above: Performed By: #### C BC #### [facility] [address] [place] [address] Dr. Rancho Cobos NEUT # 3.4 103/ul Normal 1.4-6.5 [facility] Comment on above: Performed By: #### C BC #### [facility] [address] [place] [address] Dr. Rancho Cobos Neutrophils/100 WBC (Bld) 61.1 % Normal 43.0-75.0 [facility] Comment on above: Performed By: #### C BC #### [facility] [address] [place] [address] Dr. Rancho Cobos Platelet mean volume (Bld) [Entitic vol] 9.4 fL Critically low 9.5-13.5 [facility] Comment on above: Performed By: #### C BC #### [facility] [address] [place] [address] Dr. Rancho Cobos PLT 261 103/ul Normal 150-450 [facility] Comment on above: Performed By: #### C BC #### [facility] [address] [place] [address] Dr. Rancho Cobos RBC 4.17 106/ul Critically low 4.20-5.40 [facility] Comment on above: Performed By: #### C BC #### [facility] [address] [place] [address] Dr. Rancho Cobos WBC 5.6 103/ul Normal 4.0-11.0 [facility] Comment on above: Performed By: #### C BC #### [facility] [address] [place] [address] Dr. Rancho Cobos LIPID PROFILEon 10-27-2022 CHOL-HDL RATIO NORM SEE BELOW Normal [facility] Comment on above: Result Comment: 3.3 - 4.4 LOW RISK 4.4 - 7.1 AVERAGE RISK 7.1 - 11.0 MODERATE RISK >11.0 HIGH RISK Performed By: #### C MP, LIPID, TSH #### [facility] [address] [address] [address] Rancho Cobos Cholesterol [Mass/Vol] 162 mg/dL Normal <=200 [facility] Comment on above: Performed By: #### C MP, LIPID, TSH #### [facility] [address] [address] [address] Rancho Cobos Cholesterol in HDL [Mass/Vol] 56 mg/dL Normal 40-60 [facility] Comment on above: Performed By: #### C MP, LIPID, TSH #### [facility] [address] [address] [address] Rancho Cobos Cholesterol in LDL [Mass/Vol] 97.0 mg/dL Normal [facility] Comment on above: Performed By: #### C MP, LIPID, TSH #### [facility] [address] [address] [address] Rancho Cobos Cholesterol.total/ Cholesterol in HDL [Mass ratio] 2.9 {ratio} Normal [facility] Comment on above: Performed By: #### C MP, LIPID, TSH #### [facility] [address] [address] [address] Rancho Cobos HDL NORMAL > or = 60 mg/dl - LO W CARDIOVASCULAR RISK <40 mg/dl - HIGH CARDIOVASCULAR RISK Normal [facility] Comment on above: Performed By: #### C MP, LIPID, TSH #### [facility] [address] [address] [address] Rancho Cobos LDL CALC NORMAL SEE BELOW Normal [facility] Comment on above: Result Comment: <100 mg/dl OPTIMAL 100 - 129 mg/dl NEAR OR ABOVE OPTIMAL 130 - 159 mg/dl BORDERLINE HIGH 160 - 189 mg/dl HIGH >190 mg/dl VERY HIGH Performed By: #### C MP, LIPID, TSH #### [facility] [address] [address] [address] Rancho Cobos Triglyceride [Mass/Vol] 45 mg/dL Normal <=150 [facility] Comment on above: Performed By: #### C MP, LIPID, TSH #### [facility] [address] [address] [address] Rancho Cobos VLDL CALC 9.0 mg/dL Normal [facility] Comment on above: Performed By: #### C MP, LIPID, TSH #### [facility] [address] [address] [address] Rancho Cobos PROF 14(COMP METB)on 023 Albumin [Mass/Vol] 4.0 g/dL Normal 3.4-5.0 [facility] Comment on above: Performed By: #### C MP, LIPID, TSH #### [facility] [address] [place] [address] Dr. Rancho Cobos Albumin/Globulin [Mass ratio] 1.2 {ratio} Normal [facility] Comment on above: Performed By: #### C MP, LIPID, TSH #### [facility] [address] [place] [address] Dr. Rancho Cobos ALP [Catalytic activity/Vol] 34 U/L Critically low 46-116 [facility] Comment on above: Performed By: #### C MP, LIPID, TSH #### [facility] [address] [place] [address] Dr. Rancho Cobos ALT [Catalytic activity/Vol] 24 U/L Normal 14-59 [facility] Comment on above: Performed By: #### C MP, LIPID, TSH #### [facility] [address] [address] [address] Rancho Cobos Anion gap [Moles/Vol] 12.1 mmol/L Normal [facility] Comment on above: Performed By: #### C MP, LIPID, TSH #### [facility] [address] [address] [address] Rancho Cobos AST [Catalytic activity/Vol] 17 U/L Normal 15-37 [facility] Comment on above: Performed By: #### C MP, LIPID, TSH #### [facility] [address] [address] [address] Rancho Cobos Bilirubin [Mass/Vol] 0.5 mg/dL Normal 0.2-1.0 [facility] Comment on above: Performed By: #### C MP, LIPID, TSH #### [facility] [address] [address] [address] Rancho Cobos Calcium [Mass/Vol] 9.2 mg/dL Normal 8.5-10.1 [facility] Comment on above: Performed By: #### C MP, LIPID, TSH #### [facility] [address] [address] [address] Rancho Cobos Chloride [Moles/Vol] 107 mmol/L Normal 98-107 [facility] Comment on above: Performed By: #### C MP, LIPID, TSH #### [facility] [address] [place] [address] Dr. Rancho Cobos CO2 [Moles/Vol] 28.5 mmol/L Normal 21.0-32.0 [facility] Comment on above: Performed By: #### C MP, LIPID, TSH #### [facility] [address] [place] [address] Dr. Rancho Cobos Creatinine [Mass/Vol] 0.72 mg/dL Normal 0.55-1.02 [facility] Comment on above: Performed By: #### C MP, LIPID, TSH #### [facility] [address] [place] [address] Dr. Rancho Cobos EGFR-AF TURKISH >60 Normal >=60 [facility] Comment on above: Performed By: #### C MP, LIPID, TSH #### [facility] [address] [place] [address] Dr. Rancho Cobos EGFR-NON AF TURKISH >60 Normal >=60 [facility] Comment on above: Performed By: #### C MP, LIPID, TSH #### [facility] [address] [place] [address] Dr. Rancho Cobos Globulin (S) [Mass/Vol] 3.4 g/dL Normal [facility] Comment on above: Performed By: #### C MP, LIPID, TSH #### [facility] [address] [place] [address] Dr. Rancho Cobos Glucose [Mass/Vol] 92 mg/dL Normal 74-106 [facility] Comment on above: Performed By: #### C MP, LIPID, TSH #### [facility] [address] [place] [address] Dr. Rancho Cobos Potassium [Moles/Vol] 4.6 mmol/L Normal 3.5-5.1 [facility] Comment on above: Performed By: #### C MP, LIPID, TSH #### [facility] [address] [place] [address] Dr. Rancho Cobos Protein [Mass/Vol] 7.4 g/dL Normal 6.4-8.2 [facility] Comment on above: Performed By: #### C MP, LIPID, TSH #### [facility] [address] [place] [address] Dr. Rancho Cobos Sodium [Moles/Vol] 143 mmol/L Normal 136-145 [facility] Comment on above: Performed By: #### C MP, LIPID, TSH #### [facility] [address] [place] [address] Dr. Rancho Cobos Urea nitrogen [Mass/Vol] 18.0 mg/dL Normal 7.0-18.0 [facility] Comment on above: Performed By: #### C MP, LIPID, TSH #### [facility] [address] [place] [address] Dr. Rancho Cobos Urea nitrogen/Creatinin e [Mass ratio] 25.0 mg/mg Normal [facility] Comment on above: Performed By: #### C MP, LIPID, TSH #### [facility] [address] [place] [address] Dr. Rancho Cobos TSHon 10-27-2022 TSH 1.005 uIU/mL Normal 0.358-3.740 [facility] Comment on above: Performed By: #### C MP, LIPID, TSH #### [facility] [address] [place] [address] Dr. Rancho Cobos MRI ABDOMEN WO/W IVCONon [...] suspicious marrow signal abnormality. Lower chest: Unremarkable. Blending Tank Tender (localizer) images: No additional findings. IMPRESSION: Evolving changes of RIGHT rectus abdominis muscle ablation without local recurrence. No metastatic disease in abdomen or pelvis Rabbet Operator: ANEL Transcribe Date/Time: Apr 22 2022 10:29A Dictated by : LIBRADO JOAQUIN DO This examination was interpreted and the report reviewed and electronically signed by: CANELO EDMONDSON MD on Apr 22 2022 12:49PM EST [id number] Normal [facility] MRI PELVIS WO/W IVCONon 10-0 [...] suspicious marrow signal abnormality. Lower chest: Unremarkable. Blending Tank Tender (localizer) images: No additional findings. IMPRESSION: Evolving changes of RIGHT rectus abdominis muscle ablation without local recurrence. No metastatic disease in abdomen or pelvis Rabbet Operator: ANEL Transcribe Date/Time: Apr 22 2022 10:29A Dictated by : LIBRADO JOAQUIN, This examination was interpreted and the report reviewed and electronically signed by: CANELO EDMONDSON MD on Apr 22 2022 12:49PM EST [id number] Normal [facility] CNPNon 10-28-2021 CNPN Telephone (HEMCA3) OSCAR PINEDA ([id number]) 1985 F Date Time Provider Department 10/28/21 MELANI RUSSELL HEMCA3 During your visit today, we recorded the following information about you: Brittany Avendaño ADM 10/28/2021 10:04 AM Signed Oscar Pineda is calling Melani Russell MD today regarding Care Coordination,calling with questions about with her condition. Patient has been identified by name and birthdate. Duration of symptoms: N/A Requesting response back: call on cell [phone] (home) [phone] (cell) Brittany Avendaño [facility] October 28, 2021 Brittany Avendaño [facility] 10/30/2021 3:25 PM Signed Patient calling stating she has not received a call back, Please call @ [phone] Melani Russell MD 11/19/2021 10:20 AM Signed This has been addressed through an [employer]cal[employer] message. Melani Russell MD, PhD Staff, Hematology and Medical Oncology Allergies As of Date: 10/28/2021 Noted Allergy Reaction CODEINE 02/01/2021 8 - GI Upset ADHESIVE TAPE-SILICONES 02/14/2021 14 - Other: See Comments Comments: Blisters Date Reviewed: 09/27/2021 Reviewed by: Aliya Jean Baptiste RN - Fully Assessed Reason for Visit: Care Coordination [6311] Prescriptions as of 11/19/2021 - sulindac (CLINORIL) [...] Encounter Status:Closed by BRITTANY LIAO on 11/01/21 [facility] CNOVSPon 09-27-2021 CNOVSP Visit (SP) Office (HEMCA4) SARAVANANOSCAR GRACE ([id number]) 1985 F Date Time Provider Department 09/27/21 9:00 AM MELANI RUSSELL HEMCA4 During your visit today, we recorded the following information about you: Pulse Respiration Blood pressure Weight 65/minute 20/minute 149/67 77.6 kg Melani Russell MD 10/07/2021 12:24 PM Signed [facility] [place] ESTABLISHED PATIENT VISIT PATIENT NAME: Oscar Pineda [...] Melani Pérez MD Internal Medicine Resident, PGY-1 [facility] 09/27/2021 SOLID TUMOR STAFF: ATTENDING PHYSICIAN NOTE [...] No Does patient want to see a Coremaker Pipe? No (yes to any of (more content not included)... Normal [facility] MRI ABDOMEN WO/W IVCONon MRI [...] diffusion weighted and T1 weighted in- and gbr-[id number] images were obtained. Then, using a 3-D [...] muscle mass, without evidence for residual/recurrent disease. Rabbet Operator: ANEL Transcribe Date/Time: Sep 20 2021 4:49P Dictated by : CHRIS MILIAN MD This examination was interpreted and the report reviewed and electronically signed by: CHRIS MILIAN MD on Sep 20 2021 4:58PM EST [id number] Normal [facility] MRI PELVIS WO/W IVCONon 03-0 [...] diffusion weighted and T1 weighted in- and [id number] images were obtained. Then, using a 3-D [...] muscle mass, without evidence for residual/recurrent disease. Rabbet Operator: ANEL Transcribe Date/Time: Sep 20 2021 4:49P Dictated by : CHRIS MILIAN MD This examination was interpreted and the report reviewed and electronically signed by: CHRIS MILIAN MD on Sep 20 2021 4:58PM EST [id number] Normal [facility] CNPNon 08-09-2021 CNPN Telephone (HEMCA3) OSCAR PINEDA ([id number]) 1985 F Date Time Provider Department 08/09/21 [...] N/A Requesting response back: call on cell [phone] (home) [phone] (cell) Marva Gualberto Adm August 09, 2021 Chey Tamayo RN 08/09/2021 4:42 PM Signed Returned call to patient and informed her that moving her visit with Dr. Russell after the MRI would be best to establish a plan of care. Patient was appreciative of return call and information. Chey Tamayo RN Aviation Manager August 09, 2021 Allergies As of Date: [...] Encounter Status:Closed by CLARITZA TAMAYO on 08/09/21 [facility] Nishant 05-22-2021 CNPN Telephone (GMINE) OSCAR PINEDA ([id number]) 1985 F Date Time Provider Department 05/22/21 MELIDA QUINTERO During your visit today, we recorded the following information about you: LANETTE De Leon 05/22/2021 2:32 PM Signed Patient name and was confirmed at initiation of discussion. Oscar Pineda's Common Hereditary Cancers Panel through [facility] was negative for a pathogenic variant. Please [...] Encounter Status:Closed by MELIDA QUINTERO on 05/22/21 [facility] [place] [facility] OSCAR PINEDA ([id number]) 1985 F Date Time Provider Department 05/15/21 [...] N/A Requesting response back: call on cell [phone] (home) [phone] (cell) Marva Burciaga Adm May 15, 2021 [...] Status:Closed by MELANI RUSSELL on 05/17/21 Normal [facility] Molecular Teston 2020 Test Common Hereditary Cancers Panel Normal [facility] Comment on above: Performed By: #### M OL13 ####[facility] [id number] [place] [address] Test Results View results in Scan zahraa Documents link when available. Normal [facility] Comment on above: Performed By: #### M OL13 ####[facility] [id number] [place] [address] Nishant 05-01-2021 NGUYENN Telephone (JULIANN) OSCAR PINEDA ([id number]) 1985 F Date Time Provider Department 05/01/21 [...] questions or concerns. Mindy Farley Genetic Counselor Neurophysiology Tech Allergies As of Date: 05/01/2021 Noted Allergy [...] Status:Closed by MINDY FARLEY on 05/01/21 Normal [facility] CBCon 04-30-2021 Absolute nRBC <0.01 Normal <0.01 [facility] Comment on above: Performed By: #### C BC ####[facility] [id number] [place], [place] [phone] Erythrocyte distribution width (RBC) [Ratio] 12.0 % Normal 11.5-15.0 [facility] Comment on above: Performed By: #### C BC ####[facility] [id number] [place], [place] [phone] Hematocrit (Bld) [Volume fraction] 33.8 % Low 36.0-46.0 [facility] Comment on above: Performed By: #### C BC ####[address] [address] [place], [place] [phone] Hemoglobin (Bld) [Mass/Vol] 11.8 g/dL Normal 11.5-15.5 [facility] Comment on above: Performed By: #### C BC ####[address] [address] [place] [address], [place] [phone] MCH 31.5 pG Normal 26.0-34.0 [facility] Comment on above: Performed By: #### C BC ####[address] [place], [place] [phone] MCHC (RBC) [Mass/Vol] 34.9 g/dL Normal 30.5-36.0 [facility] Comment on above: Performed By: #### C BC ####[address] [address] [place] [address], [place] [phone] MCV (RBC) [Entitic vol] 90.1 fL Normal 80.0-100.0 [facility] Comment on above: Performed By: #### C BC ####[address] [address] [place] [address], [place] [phone] Platelet mean volume (Bld) [Entitic vol] 9.6 fL Normal 9.0-12.7 [facility] Comment on above: Performed By: #### C BC ####[address] [address] [place], [place] [phone] Platelets (Bld) [#/Vol] 182 10*3/uL Normal 150-400 [facility] Comment on above: Performed By: #### C BC ####[address] [address] [address], [place] [phone] RBC (Bld) [#/Vol] 3.75 10*6/uL Low 3.90-5.20 [facility] Comment on above: Performed By: #### C BC ####[facility] [address] [place], [place] [phone] WBC (Bld) [#/Vol] 12.88 10*3/uL High 3.70-11.00 [facility] Comment on above: Performed By: #### C BC ####[facility] [address] [place], [place] [phone] CNDSon 04-30-2021 CNDS HNO ID: [id number] Author: Katty Logan APRN.HEAT TREAT TECHNICIAN Service: Critical Care Author Type: Nurse Practitioner [...] air KIMBER (more content not included)... Normal [facility] THERAPY NTon 04-30-2021 THERAPY NT HNO ID: [id number] Author: Licha Llanes, PT Service: Physical Therapy Author Type: Physical Therapist Type: Therapy (PT/OT/Speech/Resp) Filed: 04/30/2021 3:02 PM Note Text: Physical Therapy Treatment SERVICE DATE: 04/30/2021 SERVICE TIME: 1342 to 1351 ROOM: [place] [address] Recommended Discharge Disposition: Home Recommended Discharge Disposition [...] gait and mobility-other Interventions Provided: Gait Training (90074) Gait Training (76452) Treatment Minutes: 9 $ Gait Training (04715) Billed Units: 1 unit Training AND education provided in: Discharge planning, Energy conservation, Exercise program, Expected functional level, Falls prevention, Gait pattern, reduction of deviations, Home safe (more content not included)... Normal [facility] ALLIED HEALTHon 04-29-2021 ALLIED HEALTH HNO ID: [id number] Author: Ana Watters RN Service: Healing Service [...] 29, 2021 TIME: 8:11 AM CONTACT #: [phone] Normal [facility] APTTon 04-29-2021 aPTT Coag (Bld) [Time] 26.4 s Normal 23.0-32.4 [facility] Comment on above: Result Comment: [...] laboratory APTT reagent in use throughout the [facility]. Performed By: #### C BC, MG1, PHOS, PTT, CMP, PT ####[facility] [address] [place], [place] [phone] CASE MGT INIT Meryl 2020 CASE MGT INIT MATTEO HNO ID: [id number] Author: Rocio Bear RN Service: Case Management [...] Be Determined MEDICAL: [employer] CHOICE POS II Patient/Gore Cutter Stated Goals: To have reduction in symptoms;To return home to life as it was;To improve my functional status Health Insurance: [employer] Health Issues Impacting Discharge Plan: (Tumor) Last Discharge Date: 03/12/21 Is this Within the Past 30 days? Last discharge within 30 days: No Advance Directive: Current Advance Directive: None Agent Based Modeler Attempted to Assist with AD Completion: No [...] None Has the Patient Been in a Penitentiary Facility in the Past 30 days?: No SOCIAL: Living Arrangements: Home Lives With: Spouse Primary Contact: Extended Emergency Contact Information Primary Emergency Contact: LAURA PINEDA Address: [address] [place] [id number] [facility] Mobile Relation: Spouse Supportive Patient Contact:: Yes Contact Resources: Family Family Name/Phone: LAURA PINEDA (Spouse) [phone] Caregiver AssessmentCaregiver is ready, willing and able [...] Mostly I feel financially burdened by my [id number] expenses for my prescription medication:: 0 - Disagree Mostly Risk Score: 0 Patient is categorized as: Low risk < 2 Med Adherance Assessement not completed due to: No TOUR SALES REPRESENTATIVE meds Are you interested in bedside delivery of your medications? Yes Is Patient Psychosocially Complex?: No ASSESSMENT AND PLAN: Medical Needs: Medical Needs: None Psychosocial Needs: Psychosocial Needs: None FREEDOM OF CHOICE EXPLAINED: [place] of Choice Given: No Reason Not Given: No placements necessary POTENTIAL TRANSITION PLANS No Services Indicated SIGNATURE: Rocio Bear RN MSN PATIENT NAME: Oscar Pineda DATE: April 29, 2021 TIME: 11:53 AM PAGER/CONTACT #: [phone] Normal [facility] CBCon 04-29-2021 Absolute nRBC <0.01 Normal <0.01 [facility] Comment on above: Performed By: #### C BC, MG1, PHOS, PTT, CMP, PT ####[facility] [place], [place] [phone] Erythrocyte distribution width (RBC) [Ratio] 11.8 % Normal 11.5-15.0 [facility] Comment on above: Performed By: #### C BC, MG1, PHOS, PTT, CMP, PT ####[place] [address] [address] [place] [phone] Hematocrit (Bld) [Volume fraction] 37.0 % Normal 36.0-46.0 [facility] Comment on above: Performed By: #### C BC, MG1, PHOS, PTT, CMP, PT ####[place] [address] [address] [place] [phone] Hemoglobin (Bld) [Mass/Vol] 12.3 g/dL Normal 11.5-15.5 [facility] Comment on above: Performed By: #### C BC, MG1, PHOS, PTT, CMP, PT ####[place] [phone] MCH 30.9 pG Normal 26.0-34.0 [facility] Comment on above: Performed By: #### C BC, MG1, PHOS, PTT, CMP, PT ####[place] [address] [address] [place] [phone] MCHC (RBC) [Mass/Vol] 33.2 g/dL Normal 30.5-36.0 [facility] Comment on above: Performed By: #### C BC, MG1, PHOS, PTT, CMP, PT ####[place] [address] [address] [phone] MCV (RBC) [Entitic vol] 93.0 fL Normal 80.0-100.0 [facility] Comment on above: Performed By: #### C BC, MG1, PHOS, PTT, CMP, PT ####[place] [address] [address] [place] [phone] Platelet mean volume (Bld) [Entitic vol] 10.0 fL Normal 9.0-12.7 [facility] Comment on above: Performed By: #### C BC, MG1, PHOS, PTT, CMP, PT ####[facility], [place] [phone] Platelets (Bld) [#/Vol] 188 10*3/uL Normal 150-400 [facility] Comment on above: Performed By: #### C BC, MG1, PHOS, PTT, CMP, PT ####[place] [address] [address], [place] [phone] RBC (Bld) [#/Vol] 3.98 10*6/uL Normal 3.90-5.20 [facility] Comment on above: Performed By: #### C BC, MG1, PHOS, PTT, CMP, PT ####[place] [address] [address], [place] [phone] WBC (Bld) [#/Vol] 11.41 10*3/uL High 3.70-11.00 [facility] Comment on above: Performed By: #### C BC, MG1, PHOS, PTT, CMP, PT ####[place] [address] [address], [place] [phone] Comp Metabolic Panelon 04-29 Albumin [Mass/Vol] 3.5 g/dL Low 3.9-4.9 [facility] Comment on above: Performed By: #### C BC, MG1, PHOS, PTT, CMP, PT ####[place] [address]CM[address], [place] [phone] ALP [Catalytic activity/Vol] 43 U/L Normal 34-123 [facility] Comment on above: Performed By: #### C BC, MG1, PHOS, PTT, CMP, PT ####[place] [address]CM[address], [place] [phone] ALT [Catalytic activity/Vol] 56 U/L High 7-38 [facility] Comment on above: Performed By: #### C BC, MG1, PHOS, PTT, CMP, PT ####[facility], [place] [phone] Anion gap [Moles/Vol] 14 mmol/L Normal 9-18 [facility] Comment on above: Performed By: #### C BC, MG1, PHOS, PTT, CMP, PT ####[facility], [place] [phone] AST [Catalytic activity/Vol] 171 U/L High 13-35 [facility] Comment on above: Performed By: #### C BC, MG1, PHOS, PTT, CMP, PT ####[place] [address] [address], [place] [phone] Bilirubin [Mass/Vol] 0.6 mg/dL Normal 0.2-1.3 [facility] Comment on above: Performed By: #### C BC, MG1, PHOS, PTT, CMP, PT ####[place] [address] [address], [place] [phone] Calcium [Mass/Vol] 8.3 mg/dL Low 8.5-10.2 [facility] Comment on above: Performed By: #### C BC, MG1, PHOS, PTT, CMP, PT ####[place] [address]CM[address], [place] [phone] Chloride [Moles/Vol] 100 mmol/L Normal 97-105 [facility] Comment on above: Performed By: #### C BC, MG1, PHOS, PTT, CMP, PT ####[facility], [place] [phone] CO2 [Moles/Vol] 25 mmol/L Normal 22-30 [facility] Comment on above: Performed By: #### C BC, MG1, PHOS, PTT, CMP, PT ####[place] [address]CM[address], [place] [phone] Creatinine [Mass/Vol] 0.78 mg/dL Normal 0.58-0.96 [facility] Comment on above: Performed By: #### C BC, MG1, PHOS, PTT, CMP, PT ####[facility] [place], [place] [phone] eGFR- Amer. >60 Normal [facility] Comment on above: Performed By: #### C BC, MG1, PHOS, PTT, CMP, PT ####[facility] [place], [place] [phone] eGFR-All Other Races >60 Normal [facility] Comment on above: Result Comment: [...] PT ####[facility] [place], [place] [phone] Glucose [Mass/Vol] 167 mg/dL High 74-99 [facility] Comment on above: Result Comment: The [place] [employer] (ADA) provides guidance for cutoff [...] Standards of Medical Care in Diabetes 2016, [place] [employer]. Diabetes Care. 2016.39(Suppl 1). Performed By: #### C BC, MG1, PHOS, PTT, CMP, PT ####[facility], [place] [phone] Potassium [Moles/Vol] 3.9 mmol/L Normal 3.7-5.1 [facility] Comment on above: Performed By: #### C BC, MG1, PHOS, PTT, CMP, PT ####[place] [address]CRich[address] [place] [phone] Protein [Mass/Vol] 6.0 g/dL Low 6.3-8.0 [facility] Comment on above: Performed By: #### C BC, MG1, PHOS, PTT, CMP, PT ####[place] [address], [place] [phone] Sodium [Moles/Vol] 139 mmol/L Normal 136-144 [facility] Comment on above: Performed By: #### C BC, MG1, PHOS, PTT, CMP, PT ####[place] [address] [address] [place] [phone] Urea nitrogen [Mass/Vol] 9 mg/dL Normal 7-21 [facility] Comment on above: Performed By: #### C BC, MG1, PHOS, PTT, CMP, PT ####[place] [address]CM[address], [place] [phone] GASV + ALLon 04-29-2021 Base Excess 4 mmol/L Normal [facility] Comment on above: Performed By: #### V ALLBG ####[facility], [place] [phone] Calcium [Moles/Vol] 1.15 mmol/L Normal 1.08-1.30 [facility] Comment on above: Performed By: #### V ALLBG ####[facility], [place] [phone] Carboxyhemoglobin, Ziyad 1.2 % Normal <2.1 [facility] Comment on above: Performed By: #### V ALLBG ####[place] [address] [place] [phone] CO2 [Moles/Vol] 31 mmol/L High 25-29 [facility] Comment on above: Performed By: #### V ALLBG ####[place] [address] [place] [phone] Glucose [Mass/Vol] 178 mg/dL High 60-105 [facility] Comment on above: Performed By: #### V ALLBG ####[place] [address] [place] [phone] HCO3 (Bld) [Moles/Vol] 29 mmol/L High 24-28 [facility] Comment on above: Performed By: #### V ALLBG ####[place] [address] [place] [phone] Lactate [Moles/Vol] 1.3 mmol/L Normal 0.5-2.2 [facility] Comment on above: Performed By: #### V ALLBG ####[place] [address] [place] [phone] Methemoglobin 0.7 % Normal <1.6 [facility] Comment on above: Performed By: #### V ALLBG ####[place] [address] [place] [phone] O2 Administered 40% Normal [facility] Comment on above: Performed By: #### V ALLBG ####[place] [address] [place] [phone] pCO2 51 mm Hg Normal 42-55 [facility] Comment on above: Performed By: #### V ALLBG ####[place] [address] [place] [phone] pCO2, Temp Correct 51 mm Hg Normal 42-55 [facility] Comment on above: Performed By: #### V ALLBG ####[facility]CM[address], [place] [phone] Potassium [Moles/Vol] 4.0 mmol/L Normal 3.5-5.0 [facility] Comment on above: Performed By: #### V ALLBG ####[facility], [place] [phone] Base Excess 3 mmol/L Normal [facility] Comment on above: Performed By: #### V ALLBG ####[facility]CM[address], [place] [phone] Blood Gas Comm, Ziyad . Normal [facility] Comment on above: Performed By: #### V ALLBG ####[place] [address], [place] [phone] Body temperature 98.6 [degF] Normal [facility] Comment on above: Performed By: #### V ALLBG ####[place] [address], [place] [phone] Calcium [Moles/Vol] 1.18 mmol/L Normal 1.08-1.30 [facility] Comment on above: Performed By: #### V ALLBG ####[facility]CM[address], [place] [phone] Carboxyhemoglobin, Ziyad 0.9 % Normal <2.1 [facility] Comment on above: Performed By: #### V ALLBG ####[facility] [address]CM[address], [place] [phone] CO2 [Moles/Vol] 30 mmol/L High 25-29 [facility] Comment on above: Performed By: #### V ALLBG ####[facility], [place] [phone] Glucose [Mass/Vol] 193 mg/dL High 60-105 [facility] Comment on above: Performed By: #### V ALLBG ####[facility], [place] [phone] HCO3 (Bld) [Moles/Vol] 28 mmol/L Normal 24-28 [facility] Comment on above: Performed By: #### V ALLBG ####[place] [address], [place] [phone] Hematocrit (Bld) [Volume fraction] 39.0 % Normal 36.0-46.0 [facility] Comment on above: Performed By: #### V ALLBG ####[place] [address] [place] [phone] Hemoglobin (Bld) [Mass/Vol] 12.7 g/dL Normal 11.5-15.5 [facility] Comment on above: Performed By: #### V ALLBG ####[place] [address] [place] [phone] Lactate [Moles/Vol] 1.6 mmol/L Normal 0.5-2.2 [facility] Comment on above: Performed By: #### V ALLBG ####[place] [address] [place] [phone] Methemoglobin 1.0 % Normal <1.6 [facility] Comment on above: Performed By: #### V ALLBG ####[place] [address]CM[address], [place] [phone] O2 Administered 30% Normal [facility] Comment on above: Performed By: #### V ALLBG ####[facility], [place] [phone] Oxyhemoglobin, Ziyad. 78 % Normal 60-85 [facility] Comment on above: Performed By: #### V ALLBG ####[facility]CM[address], [place] [phone] pCO2 49 mm Hg Normal 42-55 [facility] Comment on above: Performed By: #### V ALLBG ####[facility]CM[address], [place] [phone] pCO2, Temp Correct 49 mm Hg Normal 42-55 [facility] Comment on above: Performed By: #### V ALLBG ####[facility]CM[place], [place] [phone] pH (Bld) 7.38 [pH] Normal 7.32-7.42 [facility] Comment on above: Performed By: #### V ALLBG ####[place] [address]CRich[address] [place] [phone] pH, Temp Corrected 7.38 Normal 7.32-7.42 [facility] Comment on above: Performed By: #### V ALLBG ####[place] [address] [place] [phone] pO2 46 mm Hg High 35-45 [facility] Comment on above: Performed By: #### V ALLBG ####[place] [address]CR[address] [place] [phone] pO2, Temp Corrected 46 mm Hg High 35-45 [facility] Comment on above: Performed By: #### V ALLBG ####[place] [address]CM[place], [place] [phone] Potassium [Moles/Vol] 4.3 mmol/L Normal 3.5-5.0 [facility] Comment on above: Performed By: #### V ALLBG ####[facility]CM[place], [place] [phone] Sodium [Moles/Vol] 141 mmol/L Normal 136-144 [facility] Comment on above: Performed By: #### V ALLBG ####[place] [address]CM[place], [place] [phone] Magnesiumon 04-29-2021 Magnesium [Mass/Vol] 1.8 mg/dL Normal 1.7-2.3 [facility] Comment on above: Performed By: #### C BC, MG1, PHOS, PTT, CMP, PT ####[facility] [place], [place] [phone] NURSING PROGon 04-29-2021 NURSING PROG HNO ID: [id number] Author: Magda Rose RN Service: ? Author Type: Registered Nurse Type: Nursing Progress Note Filed: 04/29/2021 7:45 AM Note Text: Nursing Progress: Topic: RESTRAINT NON-VIOLENT PATIENT NAME: Oscar Pineda PATIENT LOCATION: [place] [address] The patient demonstrates Attempting to Remove Medical [...] TIME: 7:44 AM Diane Rose RN Normal [facility] Phosphoruson 04-29-2021 Phosphate [Mass/Vol] 3.2 mg/dL Normal 2.7-4.8 [facility] Comment on above: Performed By: #### C BC, MG1, PHOS, PTT, CMP, PT ####[facility] [address] [place], [place] [phone] Protimeon 04-29-2021 PT INR 1.0 Normal 0.9-1.3 [facility] Comment on above: Result Comment: Neha min K Antagonist (VKA) Therapeutic Range: INR 2 to 3 (Target INR of 2.5) Note: For patients treated with VKA drugs, such as warfarin, the [place] [employer] 2012 Guideline recommends [...] Chest 2012, 141:7S-47S Daphne RA, et al. [facility] 2017, 70: 252-289 Performed By: #### C BC, MG1, PHOS, PTT, CMP, PT ####[facility] [place], [place] [phone] PT Sec 11.0 sec Normal 9.7-13.0 [facility] Comment on above: Performed By: #### C BC, MG1, PHOS, PTT, CMP, PT ####[facility] [address] [place], [place] [phone] THERAPY NTon 04-29-2021 THERAPY NT HNO ID: [id number] Author: Neela Prasad, PT Service: Physical Therapy Author Type: Physical Therapist Type: Therapy (PT/OT/Speech/Resp) Filed: 04/29/2021 10:05 AM Note Text: Physical Therapy Evaluation SERVICE DATE: 04/29/2021 SERVICE TIME: 907 to 945 ROOM: [place] [address] Recommended Discharge Disposition: Home Recommended Discharge Disposition [...] trunk posture;Step length decreased;Non-functiona l gait speed [facility]: 7: Walk 25 feet or more [...] Diagnosis: Reduced mobility-other Interventions Provided: Evaluation;Gait Training (01248);Therapeutic Activity (13595) $ Evaluation-Moderate (37172) Billed Units: 1 unit Therapeutic Activity (32224) Treatment Minutes: 8 $ Therapeutic Activity (88534) Billed Units: 1 unit Gait Training (05414) Treatment Minutes: 15 $ Gait Training (58781) Billed Units: 1 unit Training AND education provided in: Bed mobility, Benefits of in-hospital mobility, Discharge planning, Energy conservation, Expected functional level, Gait pattern, reduction of deviations, Positioning, Precautions/restriction s, Role of Physical Therapy, Sitting balance, Standing balance, Transfers, Treatment protocol, Equipment, Assistive device use The following therapeutic skills were used: Activity dosing, Assessment of tolerance includi (more content not included)... Normal [facility] Type and Screenon 04-29-2021 ABO/RH(D) Positive Normal [facility] Comment on above: Performed By: #### T SCR ####[facility] [place], [place] [phone] APTTon 04-28-2021 aPTT Coag (Bld) [Time] 26.6 s Normal 23.0-32.4 [facility] Comment on above: Result Comment: [...] laboratory APTT reagent in use throughout the [facility]. Performed By: #### P T, PTT, TRIG, CMP, CBC, MG1, PHOS ####[facility]CM[address], [place] [phone] Blood Cultureon 04-28-2021 Bacteria identified Cx Nom (Bld) Culture Result - No growth 5 days Normal [facility] Comment on above: Performed By: #### B LCUL ####[place] [address], [place] [phone] Bacteria identified Cx Nom (Bld) Culture Result - No growth 5 days Normal [facility] Comment on above: Performed By: #### B LCUL ####[place] [address], [place] [phone] CBCon 04-28-2021 Absolute nRBC <0.01 Normal <0.01 [facility] Comment on above: Performed By: #### P T, PTT, TRIG, CMP, CBC, MG1, PHOS ####[place] [address], [place] [phone] Erythrocyte distribution width (RBC) [Ratio] 12.4 % Normal 11.5-15.0 [facility] Comment on above: Performed By: #### P T, PTT, TRIG, CMP, CBC, MG1, PHOS ####[place] [address] [place], [place] [phone] Hematocrit (Bld) [Volume fraction] 36.1 % Normal 36.0-46.0 [facility] Comment on above: Performed By: #### P T, PTT, TRIG, CMP, CBC, MG1, PHOS ####[place] [address], [place] [phone] Hemoglobin (Bld) [Mass/Vol] 11.8 g/dL Normal 11.5-15.5 [facility] Comment on above: Performed By: #### P T, PTT, TRIG, CMP, CBC, MG1, PHOS ####[place] [address] [place], [place] [phone] MCH 30.9 pG Normal 26.0-34.0 [facility] Comment on above: Performed By: #### P T, PTT, TRIG, CMP, CBC, MG1, PHOS ####[address] [phone] MCHC (RBC) [Mass/Vol] 32.7 g/dL Normal 30.5-36.0 [facility] Comment on above: Performed By: #### P T, PTT, TRIG, CMP, CBC, MG1, PHOS ####[address] [phone] MCV (RBC) [Entitic vol] 94.5 fL Normal 80.0-100.0 [facility] Comment on above: Performed By: #### P T, PTT, TRIG, CMP, CBC, MG1, PHOS ####[address] [phone] Platelet mean volume (Bld) [Entitic vol] 9.8 fL Normal 9.0-12.7 [facility] Comment on above: Performed By: #### P T, PTT, TRIG, CMP, CBC, MG1, PHOS ####[address] [phone] Platelets (Bld) [#/Vol] 178 10*3/uL Normal 150-400 [facility] Comment on above: Performed By: #### P T, PTT, TRIG, CMP, CBC, MG1, PHOS ####[address] [phone] RBC (Bld) [#/Vol] 3.82 10*6/uL Low 3.90-5.20 [facility] Comment on above: Performed By: #### P T, PTT, TRIG, CMP, CBC, MG1, PHOS ####[address], [place] [phone] WBC (Bld) [#/Vol] 11.29 10*3/uL High 3.70-11.00 [facility] Comment on above: Performed By: #### P T, PTT, TRIG, CMP, CBC, MG1, PHOS ####[facility] [place], [place] [phone] CT ABD/PEL W IVCONon 021 CT ABD/PEL W IVCON * * *Final Report* * * DATE OF EXAM: Apr 28 2021 2:10PM [facility] [place] 0530 - CT ABD/PEL [...] chest CT performed will be reported separately. Blending Tank Tender (topogram) images: No additional findings. IMPRESSION: Resolution of intravenous gas within the abdomen and pelvis. 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 Rabbet Operator: PSCB Transcribe Date/Time: Apr 28 2021 2:50P Dictated by : KASHMIR RIVERA MD This examination was interpreted and the report reviewed and electronically signed by: ELIAS WOODY MD on Apr 28 2021 4:13PM EST [id number] Normal [facility] CT CHEST W IVCONon 1 CT CHEST W IVCON * * *Final Report* * * DATE OF EXAM: Apr 28 2021 2:10PM [facility] [place] 0539 - CT CHEST [...] There is minimal intrahepatic biliary ductal dilation. Blending Tank Tender (topogram) images: No additional findings. IMPRESSION: 1. No CT evidence of air embolism within the systemic veins, right-sided heart chambers, central pulmonary arteries and hepatic veins. 2. Posterior complete LEFT lower lobe, partially dependent RIGHT lower lobe and dependent LEFT upper lobe atelectasis. Given the distribution, this finding may be related to aspiration. Trace bilateral pleural effusions. Rabbet Operator: ANEL Transcribe Date/Time: Apr 28 2021 3:35P Dictated by : MICHELLE PETERSEN MD This examination was interpreted and the report reviewed and electronically signed by: MICHELLE PETERSEN MD on Apr 28 2021 3:45PM EST [id number] Normal [facility] Comp Metabolic Panelon 04-28 Albumin [Mass/Vol] 3.0 g/dL Low 3.9-4.9 [facility] Comment on above: Performed By: #### P T, PTT, TRIG, CMP, CBC, MG1, PHOS ####[facility] [place], [place] [phone] ALP [Catalytic activity/Vol] 36 U/L Normal 34-123 [facility] Comment on above: Performed By: #### P T, PTT, TRIG, CMP, CBC, MG1, PHOS ####[facility] [place], [place] [phone] ALT [Catalytic activity/Vol] 32 U/L Normal 7-38 [facility] Comment on above: Performed By: #### P T, PTT, TRIG, CMP, CBC, MG1, PHOS ####[facility] [address] AveCMagnolia, [place] [phone] Anion gap [Moles/Vol] 10 mmol/L Normal 9-18 [facility] Comment on above: Performed By: #### P T, PTT, TRIG, CMP, CBC, MG1, PHOS ####[address] [place], [place] [phone] AST [Catalytic activity/Vol] 102 U/L High 13-35 [facility] Comment on above: Performed By: #### P T, PTT, TRIG, CMP, CBC, MG1, PHOS ####[address] [place], [place] [phone] Bilirubin [Mass/Vol] 0.3 mg/dL Normal 0.2-1.3 [facility] Comment on above: Performed By: #### P T, PTT, TRIG, CMP, CBC, MG1, PHOS ####[address] [phone] Calcium [Mass/Vol] 7.9 mg/dL Low 8.5-10.2 [facility] Comment on above: Performed By: #### P T, PTT, TRIG, CMP, CBC, MG1, PHOS ####[address] [phone] Chloride [Moles/Vol] 107 mmol/L High 97-105 [facility] Comment on above: Performed By: #### P T, PTT, TRIG, CMP, CBC, MG1, PHOS ####[place] [address] [address], [place] [phone] CO2 [Moles/Vol] 25 mmol/L Normal 22-30 [facility] Comment on above: Performed By: #### P T, PTT, TRIG, CMP, CBC, MG1, PHOS ####[place] [address] [address], [place] [phone] Creatinine [Mass/Vol] 0.85 mg/dL Normal 0.58-0.96 [facility] Comment on above: Performed By: #### P T, PTT, TRIG, CMP, CBC, MG1, PHOS ####[facility] [place], [place] [phone] eGFR- Amer. >60 Normal [facility] Comment on above: Performed By: #### P T, PTT, TRIG, CMP, CBC, MG1, PHOS ####[facility] [place] [address] [phone] eGFR-All Other Races >60 Normal [facility] Comment on above: Result Comment: [...] PHOS ####[facility] [place], [place] [phone] Glucose [Mass/Vol] 86 mg/dL Normal 74-99 [facility] Comment on above: Result Comment: The [place] [employer] (ADA) provides guidance for cutoff [...] Standards of Medical Care in Diabetes 2016, [place] [employer]. Diabetes Care. 2016.39(Suppl 1). Performed By: #### P T, PTT, TRIG, CMP, CBC, MG1, PHOS ####[address] [phone] Potassium [Moles/Vol] 3.8 mmol/L Normal 3.7-5.1 [facility] Comment on above: Performed By: #### P T, PTT, TRIG, CMP, CBC, MG1, PHOS ####[address] [phone] Protein [Mass/Vol] 5.2 g/dL Low 6.3-8.0 [facility] Comment on above: Performed By: #### P T, PTT, TRIG, CMP, CBC, MG1, PHOS ####[address] [phone] Sodium [Moles/Vol] 142 mmol/L Normal 136-144 [facility] Comment on above: Performed By: #### P T, PTT, TRIG, CMP, CBC, MG1, PHOS ####[address] [phone] Urea nitrogen [Mass/Vol] 15 mg/dL Normal 7-21 [facility] Comment on above: Performed By: #### P T, PTT, TRIG, CMP, CBC, MG1, PHOS ####[address] [phone] GASV + ALLon 04-28-2021 Base Excess 2 mmol/L Normal [facility] Comment on above: Performed By: #### V ALLBG ####[address] [phone] Blood Gas Comm, Ziyad . Normal [facility] Comment on above: Performed By: #### V ALLBG ####[address] [phone] Body temperature 98.6 [degF] Normal [facility] Comment on above: Performed By: #### V ALLBG ####[place] [address] [address], [place] [phone] Calcium [Moles/Vol] 1.18 mmol/L Normal 1.08-1.30 [facility] Comment on above: Performed By: #### V ALLBG ####[address], [place] [phone] Carboxyhemoglobin, Ziyad 0.7 % Normal <2.1 [facility] Comment on above: Performed By: #### V ALLBG ####[address] [phone] CO2 [Moles/Vol] 30 mmol/L High 25-29 [facility] Comment on above: Performed By: #### V ALLBG ####[place] [address] [address] [place] [phone] Glucose [Mass/Vol] 90 mg/dL Normal 60-105 [facility] Comment on above: Performed By: #### V ALLBG ####[address] [phone] HCO3 (Bld) [Moles/Vol] 29 mmol/L High 24-28 [facility] Comment on above: Performed By: #### V ALLBG ####[place] [address], [place] [phone] Hematocrit (Bld) [Volume fraction] 37.7 % Normal 36.0-46.0 [facility] Comment on above: Performed By: #### V ALLBG ####[address], [place] [phone] Hemoglobin (Bld) [Mass/Vol] 12.3 g/dL Normal 11.5-15.5 [facility] Comment on above: Performed By: #### V ALLBG ####[place] [address] [address] [place] [phone] Lactate [Moles/Vol] 0.9 mmol/L Normal 0.5-2.2 [facility] Comment on above: Performed By: #### V ALLBG ####[place] [address] [address], [place] [phone] Methemoglobin 1.5 % Normal <1.6 [facility] Comment on above: Performed By: #### V ALLBG ####[place] [address] [address] [place] [phone] O2 Administered 100% Normal [facility] Comment on above: Performed By: #### V ALLBG ####[place] [address] [address] [place] [phone] Oxyhemoglobin, Ziyad. 83 % Normal 60-85 [facility] Comment on above: Performed By: #### V ALLBG ####[place] [address] [address] [place] [phone] pCO2 57 mm Hg High 42-55 [facility] Comment on above: Performed By: #### V ALLBG ####[place] [address] [address] [place] [phone] pCO2, Temp Correct 57 mm Hg High 42-55 [facility] Comment on above: Performed By: #### V ALLBG ####[place] [address] [address] [place] [phone] pH (Bld) 7.32 [pH] Normal 7.32-7.42 [facility] Comment on above: Performed By: #### V ALLBG ####[place] [address] [address] [place] [phone] pH, Temp Corrected 7.32 Normal 7.32-7.42 [facility] Comment on above: Performed By: #### V ALLBG ####[address] [phone] pO2 54 mm Hg High 35-45 [facility] Comment on above: Performed By: #### V ALLBG ####[address] [phone] pO2, Temp Corrected 54 mm Hg High 35-45 [facility] Comment on above: Performed By: #### V ALLBG ####[address] [phone] Potassium [Moles/Vol] 3.8 mmol/L Normal 3.5-5.0 [facility] Comment on above: Performed By: #### V ALLBG ####[address] [phone] Sodium [Moles/Vol] 142 mmol/L Normal 136-144 [facility] Comment on above: Performed By: #### V ALLBG ####[address] [phone] Magnesiumon 04-28-2021 Magnesium [Mass/Vol] 2.0 mg/dL Normal 1.7-2.3 [facility] Comment on above: Performed By: #### P T, PTT, TRIG, CMP, CBC, MG1, PHOS ####[address] [phone] NURSING PROGon 04-28-2021 NURSING PROG HNO ID: [id number] Author: Laura Mullins RN Service: ? Author Type: Registered Nurse Type: Nursing Progress Note Filed: 04/28/2021 8:01 PM Note Text: Nursing Progress: Topic: RESTRAINT NON-VIOLENT PATIENT NAME: Oscar Pineda PATIENT LOCATION: [place] [address] The patient demonstrates Attempting to Remove Medical [...] 2021 TIME: 8:01 PM Laura Mullins RN [facility] NURSING PROG HNO ID: [id number] Author: Rob Guerra RN Service: Radiology Author [...] DATE: April 28, 2021 TIME: 2:08 PM [facility] NURSING PROG HNO ID: [id number] Author: Yumiko Molina RN Service: ? Author Type: Registered Nurse Type: Nursing Progress Note Filed: 04/28/2021 2:57 PM Note Text: Nursing Progress Note Patient Name: Oscar Pineda Patient Location: [place] [address] 1200 IR at bedside, advised transfer to CT table while still in trendelenburg trial patient supine, still in trendelenburg. Tolerating [address], notified of positioning requirements 1345 NEWS PRODUCER, resident, two RT's, and two RN's at bedside for transport. Pt on telemetry/ continuous monitoring. CT and IR LIP notified. [address] imaging table, trendelenburg positioning maintained [address] and gave verbal OK to transition HOB flat then elevated (as tolerated) 1420 patient in SICU, HOB flat. Tolerating This note was completed by: Yumiko Molina [facility] NURSING PROG HNO ID: [id number] Author: Yumiko Molina RN Service: ? Author Type: Registered Nurse Type: Nursing Progress Note Filed: 04/28/2021 1:22 PM Note Text: Nursing Progress: Topic: RESTRAINT NON-VIOLENT PATIENT NAME: Oscar Pineda PATIENT LOCATION: [place] [address] The patient demonstrates Attempting to Remove Medical Devices Vital to Medical Stability as evidenced by the following behaviors attempting to remove medical nurse which pose an imminent danger to self [...] 2021 TIME: 8:00AM Yumiko Molina RN Normal [facility] Phosphoruson 04-28-2021 Phosphate [Mass/Vol] 2.3 mg/dL Low 2.7-4.8 [facility] Comment on above: Performed By: #### P T, PTT, TRIG, CMP, CBC, MG1, PHOS ####[facility] [address] [place], [place] [phone] Protimeon 04-28-2021 PT INR 1.0 Normal 0.9-1.3 [facility] Comment on above: Result Comment: Neha min K Antagonist (VKA) Therapeutic Range: INR 2 to 3 (Target INR of 2.5) Note: For patients treated with VKA drugs, such as warfarin, the [place] [employer] 2012 Guideline recommends [...] Chest 2012, 141:7S-47S Daphne RA et al. [facility] 2017, 70: 252-289 Performed By: #### P T, PTT, TRIG, CMP, CBC, MG1, PHOS ####[facility] [place], [place] [phone] PT Sec 11.0 sec Normal 9.7-13.0 [facility] Comment on above: Performed By: #### P T, PTT, TRIG, CMP, CBC, MG1, PHOS ####[facility] [place], [place] [phone] Respiratory Cult/Stainon Respiratory Cult/Stain Sp. Request/Comment: - Specimen received in sterile container. Smear Result - Rare Mixed oral kaylynn Many Polymorphonuclear leukocytes Rare Epithelial cells Culture Result - Few Staphylococcus aureus --> ABNORMAL ALERT Insignificant colony count. No further workup. --> ABNORMAL ALERT Few Normal respiratory kaylynn present Critically abnormal [facility] Comment on above: Performed By: #### R CULST ####[address] [phone] Triglycerideon 04-28-2021 Fasting Time Unknown Normal [facility] Comment on above: Performed By: #### P T, PTT, TRIG, CMP, CBC, MG1, PHOS ####[facility] [place], [place] [phone] Triglyceride [Mass/Vol] 155 mg/dL High <150 [facility] Comment on above: Result Comment: <150 mg/dL, Normal 150-199 mg/dL, Borderline high 200-499 mg/dL, High >499 mg/dL, Very high Reference: 1. National Cholesterol Education Program ATP III Guideline At-A-Glance Quick Desk Reference: National Heart, Lung, and Blood [place]. National Institutes of Health. 2001: NIH Publication No. 01-3305. Performed By: #### P T, PTT, TRIG, CMP, CBC, MG1, PHOS ####[place] [address] [place], [place] [phone] Urinalysison 04-28-2021 Bilirubin, Urine Negative Normal Negative [facility] Comment on above: Performed By: #### U A ####[place] [address] [address] [place] [phone] Clarity (U) Clear Normal Clear [facility] Comment on above: Performed By: #### U A ####[place] [address] [address] [place] [phone] Color (U) Light Yellow Critically abnormal Yellow [facility] Comment on above: Performed By: #### U A ####[place] [address] [address] [place] [phone] Comments SEE COMMENT Normal [facility] Comment on above: Result Comment: Micr oscopic not warranted Performed By: #### U A ####[place] [address] [address] [place] [phone] Glucose Ql (U) Negative Normal Negative [facility] Comment on above: Performed By: #### U A ####[place] [address] [address] [place] [phone] Hemoglobin/Blood,U r Negative Normal Negative [facility] Comment on above: Performed By: #### U A ####[place] [address] [address] [place] [phone] Ketones Ql (U) 1+ Critically abnormal Negative [facility] Comment on above: Performed By: #### U A ####[place] [address] [address] [place] [phone] Leukest Negative Normal Negative [facility] Comment on above: Performed By: #### U A ####[place] [address] [address] [place] [phone] Nitrite Ql (U) Negative Normal Negative [facility] Comment on above: Performed By: #### U A ####[place] [address] [address] [place] [phone] pH (U) 5.0 [pH] Normal 5.0-8.0 [facility] Comment on above: Performed By: #### U A ####[place] [address] [address], [place] [phone] Protein, Urine Negative Normal Negative [facility] Comment on above: Performed By: #### U A ####[address] [phone] Specific [place], Ur 1.023 Normal 1.005-1.030 [facility] Comment on above: Performed By: #### U A ####[place] [address] [address], [place] [phone] Urine Karl Comment SEE COMMENT Normal [facility] Comment on above: Result Comment: N/A Performed By: #### U A ####[place] [address] [address], [place] [phone] Urobilinogen (U) [Mass/Vol] Negative Normal Negative [facility] Comment on above: Performed By: #### U A ####[place] [address] [address], [place] [phone] APTTon 04-27-2021 aPTT Coag (Bld) [Time] 21.9 s Low 23.0-32.4 [facility] Comment on above: Result Comment: [...] laboratory APTT reagent in use throughout the [facility]. Performed By: #### P HOS, CMP, PTT, CBC, MG1, PT ####[facility], [place] [phone] CBCon 04-27-2021 Absolute nRBC <0.01 Normal <0.01 [facility] Comment on above: Performed By: #### P HOS, CMP, PTT, CBC, MG1, PT ####[place] [address] [address], [place] [phone] Erythrocyte distribution width (RBC) [Ratio] 11.9 % Normal 11.5-15.0 [facility] Comment on above: Performed By: #### P HOS, CMP, PTT, CBC, MG1, PT ####[place] [address] [address] [place] [phone] Hematocrit (Bld) [Volume fraction] 39.3 % Normal 36.0-46.0 [facility] Comment on above: Performed By: #### P HOS, CMP, PTT, CBC, MG1, PT ####[place] [address] [address] [place] [phone] Hemoglobin (Bld) [Mass/Vol] 13.3 g/dL Normal 11.5-15.5 [facility] Comment on above: Performed By: #### P HOS, CMP, PTT, CBC, MG1, PT ####[place] [address] [address] [place] [phone] MCH 31.0 pG Normal 26.0-34.0 [facility] Comment on above: Performed By: #### P HOS, CMP, PTT, CBC, MG1, PT ####[place] [address] [address] [place] [phone] MCHC (RBC) [Mass/Vol] 33.8 g/dL Normal 30.5-36.0 [facility] Comment on above: Performed By: #### P HOS, CMP, PTT, CBC, MG1, PT ####[place] [address] [address], [place] [phone] MCV (RBC) [Entitic vol] 91.6 fL Normal 80.0-100.0 [facility] Comment on above: Performed By: #### P HOS, CMP, PTT, CBC, MG1, PT ####[facility]ClevelFr[address], [place] [phone] Platelet mean volume (Bld) [Entitic vol] 9.8 fL Normal 9.0-12.7 [facility] Comment on above: Performed By: #### P HOS, CMP, PTT, CBC, MG1, PT ####[place] [address] [address], [place] [phone] Platelets (Bld) [#/Vol] 242 10*3/uL Normal 150-400 [facility] Comment on above: Performed By: #### P HOS, CMP, PTT, CBC, MG1, PT ####[place] [address] [address], [place] [phone] RBC (Bld) [#/Vol] 4.29 10*6/uL Normal 3.90-5.20 [facility] Comment on above: Performed By: #### P HOS, CMP, PTT, CBC, MG1, PT ####[place] [address] [address]CM[address], [place] [phone] WBC (Bld) [#/Vol] 17.39 10*3/uL High 3.70-11.00 [facility] Comment on above: Performed By: #### P HOS, CMP, PTT, CBC, MG1, PT ####[place] [address] [address], [place] [phone] Comp Metabolic Panelon 04-27 Albumin [Mass/Vol] 3.9 g/dL Normal 3.9-4.9 [facility] Comment on above: Performed By: #### P HOS, CMP, PTT, CBC, MG1, PT ####[place] [address]Clevel[place], [place] [phone] ALP [Catalytic activity/Vol] 41 U/L Normal 34-123 [facility] Comment on above: Performed By: #### P HOS, CMP, PTT, CBC, MG1, PT ####[facility], [place] [phone] ALT [Catalytic activity/Vol] 26 U/L Normal 7-38 [facility] Comment on above: Performed By: #### P HOS, CMP, PTT, CBC, MG1, PT ####[place] [address] [address], [place] [phone] Anion gap [Moles/Vol] 10 mmol/L Normal 9-18 [facility] Comment on above: Performed By: #### P HOS, CMP, PTT, CBC, MG1, PT ####[place] [address] [address], [place] [phone] AST [Catalytic activity/Vol] 63 U/L High 13-35 [facility] Comment on above: Performed By: #### P HOS, CMP, PTT, CBC, MG1, PT ####[place] [address] [address], [place] [phone] Bilirubin [Mass/Vol] 0.5 mg/dL Normal 0.2-1.3 [facility] Comment on above: Performed By: #### P HOS, CMP, PTT, CBC, MG1, PT ####[place] [address], [place] [phone] Calcium [Mass/Vol] 8.6 mg/dL Normal 8.5-10.2 [facility] Comment on above: Performed By: #### P HOS, CMP, PTT, CBC, MG1, PT ####[place] [address] [address], [place] [phone] Chloride [Moles/Vol] 109 mmol/L High 97-105 [facility] Comment on above: Performed By: #### P HOS, CMP, PTT, CBC, MG1, PT ####[place] [address] [address], [place] [phone] CO2 [Moles/Vol] 23 mmol/L Normal 22-30 [facility] Comment on above: Performed By: #### P HOS, CMP, PTT, CBC, MG1, PT ####[address] [phone] Creatinine [Mass/Vol] 0.76 mg/dL Normal 0.58-0.96 [facility] Comment on above: Performed By: #### P HOS, CMP, PTT, CBC, MG1, PT ####[address] [phone] eGFR- Amer. >60 Normal [facility] Comment on above: Performed By: #### P HOS, CMP, PTT, CBC, MG1, PT ####[address] [phone] eGFR-All Other Races >60 Normal [facility] Comment on above: Result Comment: [...] P HOS, CMP, PTT, CBC, MG1, PT ####[address] [phone] Glucose [Mass/Vol] 119 mg/dL High 74-99 [facility] Comment on above: Result Comment: The [place] [employer] (ADA) provides guidance for cutoff [...] Standards of Medical Care in Diabetes 2016, [place] [employer]. Diabetes Care. 2016.39(Suppl 1). Performed By: #### P HOS, CMP, PTT, CBC, MG1, PT ####[place] [address] [address] [place] [phone] Potassium [Moles/Vol] 4.0 mmol/L Normal 3.7-5.1 [facility] Comment on above: Performed By: #### P HOS, CMP, PTT, CBC, MG1, PT ####[address] [phone] Protein [Mass/Vol] 5.9 g/dL Low 6.3-8.0 [facility] Comment on above: Performed By: #### P HOS, CMP, PTT, CBC, MG1, PT ####[address] [phone] Sodium [Moles/Vol] 142 mmol/L Normal 136-144 [facility] Comment on above: Performed By: #### P HOS, CMP, PTT, CBC, MG1, PT ####[address] [phone] Urea nitrogen [Mass/Vol] 13 mg/dL Normal 7-21 [facility] Comment on above: Performed By: #### P HOS, CMP, PTT, CBC, MG1, PT ####[address] [phone] GASV + ALLon 04-27-2021 Base Excess 1 mmol/L Normal [facility] Comment on above: Performed By: #### V ALLBG ####[address] [phone] Blood Gas Comm, Ziyad . Normal [facility] Comment on above: Performed By: #### V ALLBG ####[place] [address], [place] [phone] Body temperature 98.6 [degF] Normal [facility] Comment on above: Performed By: #### V ALLBG ####[place] [address] [address], [place] [phone] Calcium [Moles/Vol] 1.21 mmol/L Normal 1.08-1.30 [facility] Comment on above: Performed By: #### V ALLBG ####[place] [address] [address] [place] [phone] Carboxyhemoglobin, Ziyad 0.7 % Normal <2.1 [facility] Comment on above: Performed By: #### V ALLBG ####[place] [address] [address] [place] [phone] CO2 [Moles/Vol] 29 mmol/L Normal 25-29 [facility] Comment on above: Performed By: #### V ALLBG ####[place] [address] [address] [place] [phone] Glucose [Mass/Vol] 97 mg/dL Normal 60-105 [facility] Comment on above: Performed By: #### V ALLBG ####[place] [address] [address] [place] [phone] HCO3 (Bld) [Moles/Vol] 27 mmol/L Normal 24-28 [facility] Comment on above: Performed By: #### V ALLBG ####[place] [address] [address] [place] [phone] Hematocrit (Bld) [Volume fraction] 38.2 % Normal 36.0-46.0 [facility] Comment on above: Performed By: #### V ALLBG ####[place] [address] [address] [place] [phone] Hemoglobin (Bld) [Mass/Vol] 12.4 g/dL Normal 11.5-15.5 [facility] Comment on above: Performed By: #### V ALLBG ####[place] [phone] Lactate [Moles/Vol] 1.1 mmol/L Normal 0.5-2.2 [facility] Comment on above: Performed By: #### V ALLBG ####[place] [address] [address] [phone] Methemoglobin 0.7 % Normal <1.6 [facility] Comment on above: Performed By: #### V ALLBG ####[place] [phone] O2 Administered 100% Normal [facility] Comment on above: Performed By: #### V ALLBG ####[place] [phone] Oxyhemoglobin, Ziyad. 92 % High 60-85 [facility] Comment on above: Performed By: #### V ALLBG ####[place] [phone] pCO2 53 mm Hg Normal 42-55 [facility] Comment on above: Performed By: #### V ALLBG ####[place] [phone] pCO2, Temp Correct 53 mm Hg Normal 42-55 [facility] Comment on above: Performed By: #### V ALLBG ####[place] [address] [address] [place] [phone] pH (Bld) 7.33 [pH] Normal 7.32-7.42 [facility] Comment on above: Performed By: #### V ALLBG ####[place] [address] [address] [place] [phone] pH, Temp Corrected 7.33 Normal 7.32-7.42 [facility] Comment on above: Performed By: #### V ALLBG ####[place] [address], [place] [phone] pO2 70 mm Hg High 35-45 [facility] Comment on above: Performed By: #### V ALLBG ####[place] [address], [place] [phone] pO2, Temp Corrected 70 mm Hg High 35-45 [facility] Comment on above: Performed By: #### V ALLBG ####[place] [address] [address] [phone] Potassium [Moles/Vol] 3.9 mmol/L Normal 3.5-5.0 [facility] Comment on above: Performed By: #### V ALLBG ####[place] [address] [address], [place] [phone] Sodium [Moles/Vol] 143 mmol/L Normal 136-144 [facility] Comment on above: Performed By: #### V ALLBG ####[place] [address] [address], [place] [phone] Base Excess 0 mmol/L Normal [facility] Comment on above: Performed By: #### V ALLBG ####[place] [address] [address], [place] [phone] Blood Gas Comm, Ziyad . Normal [facility] Comment on above: Performed By: #### V ALLBG ####[place] [address], [place] [phone] Body temperature 98.6 [degF] Normal [facility] Comment on above: Performed By: #### V ALLBG ####[place] [address] [address], [place] [phone] Calcium [Moles/Vol] 1.22 mmol/L Normal 1.08-1.30 [facility] Comment on above: Performed By: #### V ALLBG ####[place] [address] [address], [place] [phone] Carboxyhemoglobin, Ziyad 0.6 % Normal <2.1 [facility] Comment on above: Performed By: #### V ALLBG ####[place] [address] [address], [place] [phone] CO2 [Moles/Vol] 27 mmol/L Normal 25-29 [facility] Comment on above: Performed By: #### V ALLBG ####[place] [address] [address] [phone] Glucose [Mass/Vol] 130 mg/dL High 60-105 [facility] Comment on above: Performed By: #### V ALLBG ####[place] [address] [address] [phone] HCO3 (Bld) [Moles/Vol] 26 mmol/L Normal 24-28 [facility] Comment on above: Performed By: #### V ALLBG ####[place] [address] [address] [phone] Hematocrit (Bld) [Volume fraction] 42.7 % Normal 36.0-46.0 [facility] Comment on above: Performed By: #### V ALLBG ####[place] [address] [address], [place] [phone] Hemoglobin (Bld) [Mass/Vol] 13.9 g/dL Normal 11.5-15.5 [facility] Comment on above: Performed By: #### V ALLBG ####[place] [address] [address], [place] [phone] Lactate [Moles/Vol] 1.3 mmol/L Normal 0.5-2.2 [facility] Comment on above: Performed By: #### V ALLBG ####[place] [address] [place] [phone] Methemoglobin 1.1 % Normal <1.6 [facility] Comment on above: Performed By: #### V ALLBG ####[place] [address] [address], [place] [phone] O2 Administered 100% Normal [facility] Comment on above: Performed By: #### V ALLBG ####[place] [address] [address] [phone] Oxyhemoglobin, Ziyad. 88 % High 60-85 [facility] Comment on above: Performed By: #### V ALLBG ####[place] [address] [address] [place] [phone] pCO2 49 mm Hg Normal 42-55 [facility] Comment on above: Performed By: #### V ALLBG ####[place] [address] [address] [phone] pCO2, Temp Correct 49 mm Hg Normal 42-55 [facility] Comment on above: Performed By: #### V ALLBG ####[place] [address] [address] [place] [phone] pH (Bld) 7.34 [pH] Normal 7.32-7.42 [facility] Comment on above: Performed By: #### V ALLBG ####[place] [address] [address], [place] [phone] pH, Temp Corrected 7.34 Normal 7.32-7.42 [facility] Comment on above: Performed By: #### V ALLBG ####[place] [address] [address] [place] [phone] pO2 64 mm Hg High 35-45 [facility] Comment on above: Performed By: #### V ALLBG ####[place] [address] [address], [place] [phone] pO2, Temp Corrected 64 mm Hg High 35-45 [facility] Comment on above: Performed By: #### V ALLBG ####[place] [address] [place], [place] [phone] Potassium [Moles/Vol] 4.1 mmol/L Normal 3.5-5.0 [facility] Comment on above: Performed By: #### V ALLBG ####[address] [phone] Sodium [Moles/Vol] 142 mmol/L Normal 136-144 [facility] Comment on above: Performed By: #### V ALLBG ####[address] [phone] Magnesiumon 04-27-2021 Magnesium [Mass/Vol] 2.2 mg/dL Normal 1.7-2.3 [facility] Comment on above: Performed By: #### P HOS, CMP, PTT, CBC, MG1, PT ####[address] [phone] NURSING PROGon 04-27-2021 NURSING PROG HNO ID: [id number] Author: Jack Richards RN Service: Nursing Author Type: Registered Nurse Type: Nursing Progress Note Filed: 04/27/2021 10:46 PM Note Text: Nursing Progress: Topic: RESTRAINT NON-VIOLENT PATIENT NAME: Oscar Pineda PATIENT LOCATION: [place] [address] The patient demonstrates Lack of Understanding/Ability to [...] 2021 TIME: 10:00 PM Jack Richards RN [facility] NURSING PROG HNO ID: [id number] Author: Karsten Goldsmith RN Service: Nursing Author Type: Registered Nurse Type: Nursing Progress Note Filed: 04/27/2021 8:51 AM Note Text: Nursing Progress: Topic: RESTRAINT NON-VIOLENT PATIENT NAME: Oscar Pineda PATIENT LOCATION: [place] [address] The patient demonstrates Lack of Understanding/Ability to [...] TIME: 8:51 AM Karsten Goldsmith RN Normal [facility] Phosphoruson 04-27-2021 Phosphate [Mass/Vol] 3.3 mg/dL Normal 2.7-4.8 [facility] Comment on above: Performed By: #### P HOS, CMP, PTT, CBC, MG1, PT ####[facility] [address] [place], [place] [phone] Protimeon 04-27-2021 PT INR 1.1 Normal 0.9-1.3 [facility] Comment on above: Result Comment: Neha min K Antagonist (VKA) Therapeutic Range: INR 2 to 3 (Target INR of 2.5) Note: For patients treated with VKA drugs, such as warfarin, the [place] [employer] 2012 Guideline recommends [...] Chest 2012, 141:7S-47S Daphne RA, et al. [facility] 2017, 70: 252-289 Performed By: #### P HOS, CMP, PTT, CBC, MG1, PT ####[facility] [place], [place] [phone] PT Sec 11.2 sec Normal 9.7-13.0 [facility] Comment on above: Performed By: #### P HOS, CMP, PTT, CBC, MG1, PT ####[facility] [place], [place] [phone] US ABDOMEN LTDon 04-27-2021 US ABDOMEN LTD * * *Final Report* * * DATE OF EXAM: Apr 27 2021 12:24PM [facility] 1064 - US ABDOMEN LTD / PROCEDURE [...] within the hepatic veins or visualized IVC. Rabbet Operator: ANEL Transcribe Date/Time: Apr 27 2021 12:34P Dictated by : POONAM BLUM MD This examination was interpreted and the report reviewed and electronically signed by: ALICIA MENDOZA MD on Apr 27 2021 2:57PM EST [id number] Normal [facility] XR CHEST 1V FRONTALon 2020 [...] cardiomediastinal silhouette. Other: . IMPRESSION: See result. Rabbet Operator: PSCKb Transcribe Date/Time: Apr 27 2021 10:29A Dictated by : TAYLOR CORONA MD This examination was interpreted and the report reviewed and electronically signed by: TAYLOR CORONA MD on Apr 27 2021 10:31AM EST [id number] Normal [facility] ANES Sachin 04-26-2021 ANES POST HNO ID: [id number] Author: Tamara Brown DO Service: Anesthesiology Author [...] 26, 2021 TIME: 2:26 PM PAGER/CONTACT #: [phone] Normal [facility] APTTon 04-26-2021 aPTT Coag (Bld) [Time] 22.2 s Low 23.0-32.4 [facility] Comment on above: Result Comment: [...] laboratory APTT reagent in use throughout the [facility]. Performed By: #### C BC, MG1, PT, PTT, BMP, PHOS ####[facility] [address] [place], [place] [phone] BRIEF OP NOTon 04-26-2021 BRIEF OP NOT HNO ID: [id number] Author: Kayce Ricardo MD Service: Radiology Author Type: Physician Type: Brief Op Note Filed: 04/26/2021 3:28 PM Note Text: BRIEF OPERATIVE / PROCEDURE NOTE LOG ID: [id number] SURGERY/PROCEDURE DATE: 04/26/2021 INCISION/PROCEDURE START TIME: 9:25 AM INCISION CLOSE/PROCEDURE END TIME: 11:20 AM SURGEON(S)/PROCEDURALIS T(S) AND DOCK PUMPER(S): Surgeon(s) and Role: * Kayce Ricardo MD [...] DATE: April 26, 2021 TIME: 2:59 PM [phone] Normal [facility] Basic Metabolic Panlon 04-26 Anion gap [Moles/Vol] 11 mmol/L Normal 9-18 [facility] Comment on above: Performed By: #### C BC, MG1, PT, PTT, BMP, PHOS ####[facility] [address] [place], [place] [phone] Calcium [Mass/Vol] 8.3 mg/dL Low 8.5-10.2 [facility] Comment on above: Performed By: #### C BC, MG1, PT, PTT, BMP, PHOS ####[place] [address] [address] [place] [phone] Chloride [Moles/Vol] 107 mmol/L High 97-105 [facility] Comment on above: Performed By: #### C BC, MG1, PT, PTT, BMP, PHOS ####[place] [address] [address] [place] [phone] CO2 [Moles/Vol] 22 mmol/L Normal 22-30 [facility] Comment on above: Performed By: #### C BC, MG1, PT, PTT, BMP, PHOS ####[place] [address] [address] [place] [phone] Creatinine [Mass/Vol] 0.74 mg/dL Normal 0.58-0.96 [facility] Comment on above: Performed By: #### C BC, MG1, PT, PTT, BMP, PHOS ####[place] [address] [address] [place] [phone] eGFR- Amer. >60 Normal [facility] Comment on above: Performed By: #### C BC, MG1, PT, PTT, BMP, PHOS ####[place] [address] [place] [phone] eGFR-All Other Races >60 Normal [facility] Comment on above: Result Comment: [...] C BC, MG1, PT, PTT, BMP, PHOS ####[place] [address] [address], [place] [phone] Glucose [Mass/Vol] 178 mg/dL High 74-99 [facility] Comment on above: Result Comment: The [place] [employer] (ADA) provides guidance for cutoff [...] Standards of Medical Care in Diabetes 2016, [place] [employer]. Diabetes Care. 2016.39(Suppl 1). Performed By: #### C BC, MG1, PT, PTT, BMP, PHOS ####[address] [phone] Potassium [Moles/Vol] 4.1 mmol/L Normal 3.7-5.1 [facility] Comment on above: Performed By: #### C BC, MG1, PT, PTT, BMP, PHOS ####[address] [phone] Sodium [Moles/Vol] 140 mmol/L Normal 136-144 [facility] Comment on above: Performed By: #### C BC, MG1, PT, PTT, BMP, PHOS ####[address] [phone] Urea nitrogen [Mass/Vol] 14 mg/dL Normal 7-21 [facility] Comment on above: Performed By: #### C BC, MG1, PT, PTT, BMP, PHOS ####[address] [phone] CBCon 04-26-2021 Absolute nRBC <0.01 Normal <0.01 [facility] Comment on above: Performed By: #### C BC, MG1, PT, PTT, BMP, PHOS ####[place] [address] AveClevelGr[address] [place] [phone] Erythrocyte distribution width (RBC) [Ratio] 11.9 % Normal 11.5-15.0 [facility] Comment on above: Performed By: #### C BC, MG1, PT, PTT, BMP, PHOS ####[place] [address] [address] [place] [phone] Hematocrit (Bld) [Volume fraction] 38.5 % Normal 36.0-46.0 [facility] Comment on above: Performed By: #### C BC, MG1, PT, PTT, BMP, PHOS ####[place] [address] [address] [place] [phone] Hemoglobin (Bld) [Mass/Vol] 13.2 g/dL Normal 11.5-15.5 [facility] Comment on above: Performed By: #### C BC, MG1, PT, PTT, BMP, PHOS ####[place] [address] [address] [place] [phone] MCH 31.7 pG Normal 26.0-34.0 [facility] Comment on above: Performed By: #### C BC, MG1, PT, PTT, BMP, PHOS ####[place] [address] [address] [place] [phone] MCHC (RBC) [Mass/Vol] 34.3 g/dL Normal 30.5-36.0 [facility] Comment on above: Performed By: #### C BC, MG1, PT, PTT, BMP, PHOS ####[place] [address] [address] [place] [phone] MCV (RBC) [Entitic vol] 92.3 fL Normal 80.0-100.0 [facility] Comment on above: Performed By: #### C BC, MG1, PT, PTT, BMP, PHOS ####[place] [address] [place], [place] [phone] Platelet mean volume (Bld) [Entitic vol] 9.6 fL Normal 9.0-12.7 [facility] Comment on above: Performed By: #### C BC, MG1, PT, PTT, BMP, PHOS ####[address], [place] [phone] Platelets (Bld) [#/Vol] 227 10*3/uL Normal 150-400 [facility] Comment on above: Performed By: #### C BC, MG1, PT, PTT, BMP, PHOS ####[place] [address] [place], [place] [phone] RBC (Bld) [#/Vol] 4.17 10*6/uL Normal 3.90-5.20 [facility] Comment on above: Performed By: #### C BC, MG1, PT, PTT, BMP, PHOS ####[place] [address] [place], [place] [phone] WBC (Bld) [#/Vol] 17.98 10*3/uL High 3.70-11.00 [facility] Comment on above: Performed By: #### C BC, MG1, PT, PTT, BMP, PHOS ####[address] [phone] CONSULTon 04-26-2021 CONSULT HNO ID: [id number] Author: Jose M Cedillo MD Service: Interventional [...] Oscar BRITTON (more content not included)... Normal [facility] CONSULT HNO ID: [id number] Author: Oneida Ruano MD Service: Cardiovascular Medicine Author Type: Physician Type: Consults Filed: 04/27/2021 2:36 PM Note Text: [facility] CONSULT NOTE Oscar Pineda [id number] CONSULTING SERVICE: SICU DATE OF ADMISSION: 04/26/2021 [...] Problems: # (more content not included)... Normal [facility] CT ABLATION MSK NOT BONE ALDO ORon 04-26-2021 CT ABLATION MSK NOT BONE TUMOR * * *Final Report* * * * * * SEE BOTTOM OF REPORT FOR ADDENDED TEXT * * * DATE OF EXAM: Apr 26 2021 11:24AM [facility] [place] 2066 - CT ABLATION MSK NOT BONE TUMOR / PROCEDURE REASON: R19.50-Irotl-yyomnutqu and pelvic swelling, mass and lump, unspecified [...] for fur (more content not included)... Normal [facility] CT BRAIN WO IVCONon 04-26-[address] BRAIN WO IVCON * * *Final Report* * * DATE OF EXAM: Apr 26 2021 1:45PM [facility] [place] 0504 - CT BRAIN [...] reduction techniques were required COMPARISON: None. RESULT: Blending Tank Tender (topogram) images: Endotracheal tube. Post-operative change: None. [...] Portable head CT demonstrating no acute findings. Rabbet Operator: PSCB Transcribe Date/Time: Apr 26 2021 1:56P Dictated by : MARIA L SCHMIDT MD This examination was interpreted and the report reviewed and electronically signed by: MARIA L SCHMITD MD on Apr 26 2021 1:58PM EST [id number] Normal [facility] Confirm Blood Typeon 021 ABO/RH(D) Positive Normal [facility] Comment on above: Performed By: #### C ONABO ####[address] [phone] Performed By: #### T SCR ####[address] [phone] Expedited [id number] 04-26-20 21 SARS-CoV-2 (COVID-19) RNA ROX+probe Ql (Unsp spec) UPPER RESPIRATORY TRACT SWAB Normal [facility] Comment on above: Performed By: #### E XCOVD ####[address] [phone] SARS-CoV-2 (COVID-19) RNA ROX+probe Ql (Unsp spec) Negative for COVID19 (SARS CoV2) by RT-PCR or equivalent method. Normal Negative for COVID19 (SARS CoV2) by RT-PCR or equivalent method. [facility] Comment on above: Result Comment: This test has been authorized by FDA under an Emergency Use Authorization (EUA). Test performed by [facility], [facility] [place], [address] [place], [place] [address]. Performed By: #### E XCOVD ####[address] [phone] GASV + ALLon 04-26-2021 Base Excess Negative Normal [facility] Comment on above: Performed By: #### V ALLBG ####[address] [phone] Blood Gas Comm, Ziyad .VENOUS Normal [facility] Comment on above: Performed By: #### V ALLBG ####[address] [phone] Body temperature 98.6 [degF] Normal [facility] Comment on above: Performed By: #### V ALLBG ####[place] [phone] Calcium [Moles/Vol] 1.23 mmol/L Normal 1.08-1.30 [facility] Comment on above: Performed By: #### V ALLBG ####[address] [phone] Carboxyhemoglobin, Ziyad 0.9 % Normal <2.1 [facility] Comment on above: Performed By: #### V ALLBG ####[address] [phone] CO2 [Moles/Vol] 27 mmol/L Normal 25-29 [facility] Comment on above: Performed By: #### V ALLBG ####[address] [phone] Glucose [Mass/Vol] 144 mg/dL High 60-105 [facility] Comment on above: Performed By: #### V ALLBG ####[address] [phone] HCO3 (Bld) [Moles/Vol] 25 mmol/L Normal 24-28 [facility] Comment on above: Performed By: #### V ALLBG ####[place] [address] [address] [place] [phone] Hematocrit (Bld) [Volume fraction] 43.2 % Normal 36.0-46.0 [facility] Comment on above: Performed By: #### V ALLBG ####[place] [address] [address] [place] [phone] Hemoglobin (Bld) [Mass/Vol] 14.1 g/dL Normal 11.5-15.5 [facility] Comment on above: Performed By: #### V ALLBG ####[place] [address] [address] [place] [phone] Lactate [Moles/Vol] 2.0 mmol/L Normal 0.5-2.2 [facility] Comment on above: Performed By: #### V ALLBG ####[place] [address] [address] [place] [phone] Methemoglobin 0.7 % Normal <1.6 [facility] Comment on above: Performed By: #### V ALLBG ####[place] [address] [address] [place] [phone] O2 Administered 100% Normal [facility] Comment on above: Performed By: #### V ALLBG ####[place] [address] [address] [place] [phone] Oxyhemoglobin, Ziyad. 81 % Normal 60-85 [facility] Comment on above: Performed By: #### V ALLBG ####[place] [address] [address] [place] [phone] pCO2 53 mm Hg Normal 42-55 [facility] Comment on above: Performed By: #### V ALLBG ####[place] [address] [address] [place] [phone] pCO2, Temp Correct 53 mm Hg Normal 42-55 [facility] Comment on above: Performed By: #### V ALLBG ####[place] [address] [address], [place] [phone] pH (Bld) 7.30 [pH] Low 7.32-7.42 [facility] Comment on above: Performed By: #### V ALLBG ####[place] [address] [address], [place] [phone] pH, Temp Corrected 7.30 Low 7.32-7.42 [facility] Comment on above: Performed By: #### V ALLBG ####[place] [address] [address], [place] [phone] pO2 52 mm Hg High 35-45 [facility] Comment on above: Performed By: #### V ALLBG ####[place] [address] [address], [place] [phone] pO2, Temp Corrected 52 mm Hg High 35-45 [facility] Comment on above: Performed By: #### V ALLBG ####[place] [address] [address], [place] [phone] Potassium [Moles/Vol] 4.4 mmol/L Normal 3.5-5.0 [facility] Comment on above: Performed By: #### V ALLBG ####[place] [address] [address], [place] [phone] Sodium [Moles/Vol] 142 mmol/L Normal 136-144 [facility] Comment on above: Performed By: #### V ALLBG ####[place] [address], [place] [phone] Base Excess Negative Normal [facility] Comment on above: Performed By: #### V ALLBG ####[place] [address] [address], [place] [phone] Blood Gas Comm, Ziyad .VENOUS Normal [facility] Comment on above: Performed By: #### V ALLBG ####[place] [address], [place] [phone] Body temperature 98.6 [degF] Normal [facility] Comment on above: Performed By: #### V ALLBG ####[place] [address], [place] [phone] Calcium [Moles/Vol] 1.25 mmol/L Normal 1.08-1.30 [facility] Comment on above: Performed By: #### V ALLBG ####[place] [phone] Carboxyhemoglobin, Ziyad 0.5 % Normal <2.1 [facility] Comment on above: Performed By: #### V ALLBG ####[place] [phone] CO2 [Moles/Vol] 25 mmol/L Normal 25-29 [facility] Comment on above: Performed By: #### V ALLBG ####[place] [address] [address] [place] [phone] Glucose [Mass/Vol] 172 mg/dL High 60-105 [facility] Comment on above: Performed By: #### V ALLBG ####[place] [address] [address] [place] [phone] HCO3 (Bld) [Moles/Vol] 24 mmol/L Normal 24-28 [facility] Comment on above: Performed By: #### V ALLBG ####[place] [address] [address], [place] [phone] Hematocrit (Bld) [Volume fraction] 44.2 % Normal 36.0-46.0 [facility] [facility] Comment on above: Performed By: #### V ALLBG ####[place] [address] [address] [place] [phone] Hemoglobin (Bld) [Mass/Vol] 14.4 g/dL Normal 11.5-15.5 [facility] Comment on above: Performed By: #### V ALLBG ####[place] [phone] Lactate [Moles/Vol] 2.4 mmol/L High 0.5-2.2 [facility] Comment on above: Performed By: #### V ALLBG ####[address] [place] [phone] Methemoglobin 1.2 % Normal <1.6 [facility] Comment on above: Performed By: #### V ALLBG ####[place] [phone] O2 Administered 100% Normal [facility] Comment on above: Performed By: #### V ALLBG ####[place] [phone] Oxyhemoglobin, Ziyad. 98 % High 60-85 [facility] Comment on above: Performed By: #### V ALLBG ####[place] [phone] pCO2 46 mm Hg Normal 42-55 [facility] Comment on above: Performed By: #### V ALLBG ####[place] [phone] pCO2, Temp Correct 46 mm Hg Normal 42-55 [facility] Comment on above: Performed By: #### V ALLBG ####[place] [phone] pH (Bld) 7.33 [pH] Normal 7.32-7.42 [facility] Comment on above: Performed By: #### V ALLBG ####[place] [phone] pH, Temp Corrected 7.33 Normal 7.32-7.42 [facility] Comment on above: Performed By: #### V ALLBG ####[place] [id number] [place], [place] [phone] pO2 246 mm Hg High 35-45 [facility] Comment on above: Performed By: #### V ALLBG ####[facility] [place], [place] [phone] pO2, Temp Corrected 246 mm Hg High 35-45 [facility] Comment on above: Performed By: #### V ALLBG ####[place] [address] [place], [place] [phone] Potassium [Moles/Vol] 4.4 mmol/L Normal 3.5-5.0 [facility] Comment on above: Performed By: #### V ALLBG ####[place] [address] [place], [place] [phone] Sodium [Moles/Vol] 143 mmol/L Normal 136-144 [facility] Comment on above: Performed By: #### V ALLBG ####[address] [phone] HISTORY PHYSICALon HISTORY PHYSICAL HNO ID: [id number] Author: Kayce Ricardo MD Service: Radiology Author [...] April 26, 2021 TIME: 8:54 PM Normal [facility] Magnesiumon 04-26-2021 Magnesium [Mass/Vol] 1.9 mg/dL Normal 1.7-2.3 [facility] Comment on above: Performed By: #### C BC, MG1, PT, PTT, BMP, PHOS ####[facility] [address] [place], [place] [phone] NURSING PROGon 04-26-2021 NURSING PROG HNO ID: [id number] Author: Jack Richards RN Service: Nursing Author Type: Registered Nurse Type: Nursing Progress Note Filed: 04/26/2021 9:21 PM Note Text: Nursing Progress: Topic: RESTRAINT NON-VIOLENT PATIENT NAME: Oscar Pineda PATIENT LOCATION: [place] [address] The patient demonstrates Lack of Understanding/Ability to [...] TIME: 8:00 PM Jack Richards RN Normal [facility] NURSING PROG HNO ID: [id number] Author: Karsten Goldsmith RN Service: Nursing Author Type: Registered Nurse Type: Nursing Progress Note Filed: 04/26/2021 6:59 PM Note Text: Nursing Progress: Topic: RESTRAINT NON-VIOLENT PATIENT NAME: Oscar Pineda PATIENT LOCATION: [place] [address]/[facility] The patient demonstrates Lack of Understanding/Ability to [...] TIME: 6:58 PM Karsten Goldsmith RN Normal [facility] PT EDon 04-26-2021 PT ED HNO ID: [id number] Author: Agnes Schaefer RN Service: Interventional Radiology [...] SUPPLEMENTAL MATERIAL: None REFERRAL (RECOMMENDATION): None Normal [facility] Phosphoruson 04-26-2021 Phosphate [Mass/Vol] 3.1 mg/dL Normal 2.7-4.8 [facility] Comment on above: Performed By: #### C BC, MG1, PT, PTT, BMP, PHOS ####[facility] [place], [place] [phone] Protimeon 04-26-2021 PT INR 1.1 Normal 0.9-1.3 [facility] Comment on above: Result Comment: Neha min K Antagonist (VKA) Therapeutic Range: INR 2 to 3 (Target INR of 2.5) Note: For patients treated with VKA drugs, such as warfarin, the [employer] 2012 Guideline recommends [...] to 3.5 (target INR of 3). Deep PIRETO, et al. Chest 2012, 141:7S-47S Daphne PEDERSON et al. [facility] 2017, 70: 252-289 Performed By: #### C BC, MG1, PT, PTT, BMP, PHOS ####[place] [address] [place], [place] [phone] PT Sec 11.9 sec Normal 9.7-13.0 [facility] Comment on above: Performed By: #### C BC, MG1, PT, PTT, BMP, PHOS ####[facility] [address], [place] [phone] Staph aureus PCRon 1 MRSA PCR Negative Normal [facility] Comment on above: Performed By: #### S APCR ####[facility], [place] [phone] S aureus Spec Source Nasal Normal [facility] Comment on above: Performed By: #### S APCR ####[place] [address], [place] [phone] Staph aureus PCR Negative Normal [facility] Comment on above: Performed By: #### S APCR ####[place] [address] [address], [place] [phone] XR ABDOMEN 1V SUPINEon 04-26 XR ABDOMEN [...] loops of bowel. No focal bony abnormality. Rabbet Operator: ExpoPromoter Transcribe Date/Time: Apr 26 2021 2:53P Dictated by : RAMIN BROWNLEE MD This examination was interpreted and the report reviewed and electronically signed by: RAMIN BROWNLEE MD on Apr 26 2021 3:05PM EST [id number] Normal [facility] XR CHEST 1V FRONTAL PORTon [...] No acute process identified. IMPRESSION: See result. Rabbet Operator: PSCAccertify Transcribe Date/Time: Apr 26 2021 6:05P Dictated by : JASON LOWE MD This examination was interpreted and the report reviewed and electronically signed by: JASON LOWE MD on Apr 26 2021 6:07PM EST [id number] Normal [facility] XR CHEST 1V FRONTAL PORT [...] No acute process identified. IMPRESSION: See result. Rabbet Operator: PSCB Transcribe Date/Time: Apr 26 2021 3:57P Dictated by : JASON LOWE MD This examination was interpreted and the report reviewed and electronically signed by: JASON LOWE MD on Apr 26 2021 3:58PM EST [id number] Normal [facility] NURSING PROGon 04-24-2021 NURSING PROG HNO ID: [id number] Author: Shereen Kwok LPN Service: ? Author Type: LICENSED NURSE Type: Nursing Progress Note Filed: 04/24/2021 2:42 PM Note Text: Pre-procedure instructions: Contacted patient and confirmed appt. for Cryoablation scheduled on 04/26/21, at [facility]. Diet: Do not eat solid food after [...] signed. Arrival at 6:30am to desk QB-1 ([facility]) and check in for your procedure. Mamma Logist/Transportation: How will you be arriving for your procedure? Private car. If you will be arriving at [facility] via ambulance or public transportation, please call to discuss. You will need a responsible adult to accompany you to and from the procedure. Your sprinkler truck driver is required to stay with you until you are taken into the Procedure room. [facility] is currently restricting visitors to two visitors per patient. No visitor under the age of 16. You and your visitor will be screened for temperature and COVID-19 symptoms upon entry to the hospital, and a wristband will be applied when cleared. If you develop any of the following symptoms before your procedure, please call [phone]. Chills, joint pain, rash, sore throat, cough, [...] No Written instructions provided to patient via [employer] If you have any questions please call [phone] Normal [facility] MRI ABDOMEN WO/W IVCONon [facility] Vital Signs Date Time Vital Sign Value Performing Clinician Facility 10-10-2022 10:00-0400 Body height 161.29 cm Shaun Valentine Other [facility] Other 10-10-2022 10:00-0400 Body mass index (BMI) [Ratio] 23.08 kg/m2 Shaun Ball Other [facility] Other 10-10-2022 10:00-0400 Body weight 60.06 kg Shaun Ball Other [facility] Other 10-10-2022 10:00-0400 Diastolic blood pressure 76 mm[Hg] Shaun Ball Other [facility] Other 10-10-2022 10:00-0400 Respiratory rate 12 /min Shaun Ball Other [facility] Other 10-10-2022 10:00-0400 Systolic blood pressure 110 mm[Hg] Shaun Ball Other [facility] Other 04-28-2022 15:46-0400 Body temperature 99.5 [degF] Melani Russell MD Work Phone: [facility] 04-28-2022 15:46-0400 Body weight 76.39 kg Melani Russell MD Work Phone: [facility] 04-28-2022 15:46-0400 Diastolic blood pressure 76 mm[Hg] Melani Russell MD Work Phone: [facility] 04-28-2022 15:46-0400 Heart rate 71 /min Melani Russell MD Work Phone: [facility] 04-28-2022 15:46-0400 Respiratory rate 20 /min Melani Russell MD Work Phone: [facility] 04-28-2022 15:46-0400 SaO2% (BldA) [Mass fraction] 97 % Melani Russell MD Work Phone: [facility] 04-28-2022 15:46-0400 Systolic blood pressure 131 mm[Hg] Melani Russell MD Work Phone: [facility] Encounters Encounter Date Encounter Type Care Provider [...] examination without abnormal findings DR SHAUN VALENTINE [facility] Start: 10-27-2022 Telephone encounter Shaun Valentine [facility] Start: 10-27-2022 End: 10-28-[address] SHAUN VALENTINE [facility] Other Start: 10-27-2022 End: 10-28-2022 Encounter for general adult medical examination without abnormal findings DR SHAUN VALENTINE Facility: Start: 10-10-2022 End: 10-10-2022 ambulatory Shaun Valentine Other [facility] Other Start: 10-10-2022 Encounter for genera l adult medical examination without abnormal findings Shaun Valentine [facility] Start: 10-10-2022 Periodic preventive med est patient 18-39 yrs Shaun Valentine [facility] Start: 04-28-2022 End: 04-29-2022 ambulatory Melani Russell MD Work Phone: Hematology/Oncology Comment on above: History of tumor (Pr imary Dx) Start: 04-28-2022 End: 04-29-2022 Patient encounter procedure Melani Russell MD Work Phone: [facility] Start: 04-21-2022 End: 04-21-2022 ambulatory MELANI RUSSELL Facility:[facility] Start: 04-21-2022 End: 04-21-2022 Subsequent hospital visit by physician Kiel [facility] (I-Stat/1.5t/3t) Work Phone: MRI Q 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] Start: 11-14-2021 ambulatory Melani Larryt[place] Hutchison Work Phone: Hematology/Oncology 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 Start: 10-28-2021 Telephone encounter Melani Acu[address] rd, MD Work Phone: Hematology/Oncology Comment on above: Care Coordination Start: 09-27-2021 End: 09-27-2021 ambulatory MELANI RUSSELL Facility:[facility] Start: 09-20-2021 End: 09-20-2021 ambulatory MELANI RUSSELL Facility:[facility] Start: 05-07-2021 End: 05-07-2021 ambulatory ALEX URBANO [facility] Start: 05-06-2021 End: 05-06-2021 ambulatory ALEX URBANO [facility] Start: 04-26-2021 End: 04-30-2021 Evaluation and management of inpatient KAYCE RICARDO [facility] Start: 02-28-2021 End: 02-28-2021 Subsequent hospital visit by physician Kiel [facility] Miriam (I-Stat/1.5t) Radiology Comment on above: Intra-abdominal and pelvic swelling, mass and lump, unspecified site [R19.00] Procedures Date Procedure Procedure Detail Performing Clinician Start: 04-29-2021 Antibody screen ALEX URBANO Comment on above: Performed By: #### T SCR ####[facility] [address] [place], [place] [phone] Start: 04-26-2021 Antibody screen ALEX URBANO Comment on above: Performed By: #### T SCR ####[place] [id number] [place], [place] [phone] Start: 02-28-2021 Mri abdomen w/o & w/contrast material Cortez Carter MD Work Phone: Plan of Treatment Date Care Activity Detail Author Start: 03-20-2023 Covid-19 Vaccine () Covid-19 Vaccine () [facility] Start: 03-20-2023 Influenza vaccination C [facility] Start: 10-28-2022 End: 05-29-2023 Mri abdomen w/o & w/contrast material MRI ABDOMEN WO/W IVCON Radiology Routine History of tumor Expected: 10/28/2022, Expires: 05/29/2023 [facility] Work Phone: Comment on above: Expected: 10/28/2022 , Expires: 05/29/2023 Start: 10-28-2022 End: 05-29-2023 Mri pelvis w/o & w/contrast material MRI PELVIS WO/W IVCON Radiology Routine History of tumor Expected: 10/28/2022, Expires: 05/29/2023 [facility] Work Phone: Comment on above: Expected: 10/28/2022 , Expires: 05/29/2023 Start: 10-26-2022 End: 12-26-2022 CBC W Auto Differential panel - Blood ABS GRAN CT + CBC Lab Routine History of tumor Expected: 10/26/2022 (Approximate), Expires: 12/26/2022 [facility] Work Phone: Comment on above: Expected: 10/26/2022 (Approximate), Expires: 12/26/2022 Start: 10-26-2022 End: 12-26-2022 Comprehensive metabolic 2000 panel - Serum or Plasma COMP METABOLIC PANEL Lab Routine History of tumor Expected: 10/26/2022 (Approximate), Expires: 12/26/2022 [facility] Work Phone: Comment on above: Expected: 10/26/2022 (Approximate), Expires: 12/26/2022 Start: 07-20-2022 DEPRESSION ASSESSMENT DEPRESSION ASS ESSMENT [facility] Start: 03-20-2022 Influenza vaccination C [facility] Start: 09-12-2021 COVID-19 VACCINE (3 - Booster for Pfizer series) COVID-19 VACCINE (3 - Booster for Pfizer series) [facility] Start: 07-20-2021 DEPRESSION ASSESSMENT DEPRESSION ASS ESSMENT [facility] Start: 06-07-2021 COVID-19 VACCINE (3 - Booster for Pfizer series) COVID-19 VACCINE (3 - Booster for Pfizer series) [facility] Start: 06-07-2021 COVID-19 VACCINE (3 - Pfizer series) COVID-19 VACCINE (3 - Pfizer series) [facility] Start: 03-15-2020 Urine microalbumin profile DTaP,Tdap,Td Vaccine (2 - Tdap) [facility] Start: 2014 HPV TESTING HPV TESTING [facility] Start: 2005 PAP TESTING PAP TESTING [facility] Start: 2003 Urine microalbumin profile DTAP,TDAP,TD (1 - Tdap) [facility] Start: 2002 HEPATITIS C SCREENING HEPATITIS C SC REENING [facility] Start: 2002 HIV SCREENING HIV SCREENING [facility] Start: 1996 Adult depression screening assessment DEPRESSION SCREENING [facility] Start: 1984 HEPATITIS B (1 of 3 - 3-dose series) HEPATITIS B (1 of 3 - 3-dose series) [facility] Start: 1984 Hepatitis B Vaccine (1 of 3 - 3-dose series) Hepatitis B Vaccine (1 of 3 - 3-dose series) [facility] End: 04-21-2022 Mri abdomen w/o & w/contrast material [facility] Work Phone: Comment on above: 1 Occurrences starti ng 04/21/2022 until 04/21/2022 End: 04-21-2022 Mri pelvis w/o & w/contrast material [facility] Work Phone: Comment on above: 1 Occurrences starti ng 04/21/2022 until 04/21/2022 [facility] Immunizations Immunization Date Immunization Notes Care Provider Ana lucas 04-12-2021 COVID-19 Vaccine Pfi zer - Documentation Purposes Only Shaun Valentine Other [facility] Other 03-22-2021 COVID-19 Vaccine Pfi zer - Documentation Purposes Only Shaun Valentine Other [facility] Other 06-09-2019 influenza virus vaccine, unspecified formulation Mri (I-Stat/1.5t) [facility] Payers Date Payer Category Payer Private Health Insurance [employer] A ETNA CHOICE POS II [id number] 2015-Present [phone] [address] [place] [address] POS [id number] 2015 Private Health Insurance [id number] 1984 Unknown [id number] 1984 Unknown [id number] 1984 Unknown [id number] .[id number] 1984 Unknown [id number] 1984 Unknown [id number] .1259 1984 Unknown [id number] .1259 1984 Unknown [id number] .1259 1984 Unknown [id number] 1959 Private Health Insurance [id number] Private Health Insurance [id number] Social History Date Type Detail Facility Start: [facility]21 [facility] Start: 02-14-2021 Tobacco use and exposure Smoke less tobacco non-user [facility] Start: 1985 Sex Assigned At Female C [facility] Start: 01-15-2021 End: 04-28-2022 Exposure to SARS-CoV-2 (event) Not sure [facility] Start: 02-14-2021 End: 05-07-2021 Sex Assigned At [facility] Start: 02-14-2021 End: 05-07-2021 History of Social function [facility] Adult Depression Screening Assessment 0 [facility] Start: 02-26-2021 Gender identity Identifies as female gender (finding) [facility] Start: 03-27-2021 Sexual orientation Heterosexual (fin ding) [facility] Clinical Notes 02-28-2021 to 10-10-2022 Note Date & Type Note Facility 10-10-2022 Evaluation note Encounter Date Diagnosis Assessment Notes Sep, Wellness examination (ICD-10 - Z00.00) Sep, Hair thinning (ICD-10 - L65.9) Check H/H and TSH Not scarring [facility] Other 10-11-2022 History of Present illness Narrative* [...] Hematology and Medical Oncology [facility] Nurse Note* Aliya Jean Baptiste RN - 04/28/2022 3:43 PM EDT Additional intake questions: Has the patient had fever, nausea, vomiting, diarrhea, constipation, fatigue for > 1 week? No Does the patient have a decreased appetite? No Does patient want to see a Coremaker Pipe? No (yes to any of above refer [...] Aliya Jean Baptiste RN documented in [facility]10-03-2022 NoteHNO ID: [id number] Author: Erin Garcia RN Service: ? Author [...] Pineda DATE: April 21, 2022 TIME: 5:[facility] NoteHNO ID: [id number] Author: RT Toby(R) Service: Radiology Author Type: [...] BY: RT Toby(R) April 21, 2022 6:08 [facility]10-03-2022 History of Present illness Narrative* [...] 21, 2022 6:08 PM documented in this encounterA[facility]04-13-2022 Miscellaneous Notes* Telephone Encounter - Brittany Kateryna [facility] - 10/30/2021 3:24 PM EDT Patient calling stating she has not received a call back, Please call @ [phone] * Telephone Encounter - Brittany Avendaño [facility] - 10/28/2021 10:02 AM EDT Oscar Pineda is calling Melani Russell MD today regarding Care Coordination,calling with questions about with her condition. Patient has been identified by name and birthdate. Duration of symptoms: N/A Requesting response back: call on cell [phone] (home) [phone] (cell) Brittany Avendaño [facility] October 28, 2021 documented in this encounterA[facility]03-11-2022 NoteHNO ID: [id number] Author: Melani Russell MD Service: ? Author Type: Physician Type: Progress Notes Filed: 10/07/2021 12:24 PM Note Text: [facility] [place] ESTABLISHED PATIENT VISIT PATIENT NAME: Oscar Pineda [...] Melani Pérez MD Internal Medicine Resident, PGY-1 [facility] 09/27/2021 SOLID TUMOR STAFF: ATTENDING PHYSICIAN NOTE [...] Russell MD, PhD Staff, Hematology and [facility]cology[facility]03[facility]2022 Note HNO ID: [id number] Author: Shannan Ansari RT(R) Service: Radiology Author [...] BY: RT Eduardo(R) September 20, 2021 4:17 [facility]03-04-2022 NoteHNO ID: [id number] Author: Ronda Arora Service: ? Author Type: [...] Pineda DATE: September 20, 2021 TIME: 3:22 [facility]10-18-2021 NoteHNO ID: [id number] Author: LANETTE De Leon Service: ? Author Type: Genetic Counselor Type: Progress Notes Filed: 05/24/2021 11:18 AM Note Text: [facility] Consultation Note Genetic Counselor: Melida Quintero MS, [facility] Patient: Oscar Pineda Patient Name and confirmed at initiation of visit Visit was done virtually via Zoom Portions of the visit were done by genetic counseling spring internship Suzanna Fishman under my supervision HIGH LEVEL [...] unknown descent and paternal ancestors are of Swedish and Bahraini descent. There is no Ashkenazi Taoism ancestry. The patient had limited information about [...] that the patient's genetic (more content not included)...[facility]10-12-2021 NoteHNO ID: [id number] Author: Katty Logan APRN.HEAT TREAT TECHNICIAN Service: Critical Care Author Type: Nurse Practitioner [...] the A/P section below. Please refer to Psychiatric for list of inpatient medications. VITAL SIGNS: [...] room air today KIMBER (more content not included)...[facility]10-11-2021 NoteHNO ID: [id number] Author: Kayce Ricardo MD Service: Radiology Author [...] her to go home. Kayce Ricardo MD [phone] Health [facility]10-11-2021 NoteHNO ID: [id number] Author: Marva Stiles APRN.[facility] Service: Critical Care Author Type: Nurse [...] Completed decadron -> transitioned to medrol. Consulted [facility] for transfer of service. Addendum @ 1115: pt to remain in SICU, [facility] does not feel comfortable accepting pt given supplemental O2 needs and < 24 hrs since extubation. Objective MEDICATIONS: Current medications and allergies reviewed. Recommended/planned medication changes discussed in detail in the A/P section below. Please refer to [employer] for list of inpatient medications. 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 Pt suffered iatrogenic air embolism to [...] April 29, 2021 TIME: 8:45 AM PAGER/CONTACT #:[facility]10-10-2021 NoteHNO ID: [id number] Author: Sara Guzman APRN.HEAT TREAT TECHNICIAN Service: Critical Care Author Type: Nurse Practitioner [...] the A/P section below. Please refer to Psychiatric for list of inpatient medications. VITAL SIGNS: [...] Is Patient Clinically Ready to Transfer to [facility] or SDU?: No Discharge Planning: To [...] Current Assessment AND Pl (more content not included)...[facility] [facility]10-10-2021 NoteHNO ID: [id number] Author: Jose M Cedillo MD Service: Interventional [...] who presented for cryoablation on 04/26 with [facility] radi[facility]. Pt suffered iatrogenic air embolism to [...] April 29, 2021 TIME: 8:34 AM PAGER/CONTACT #:[facility]10-09-2021 NoteHNO ID: [id number] Author: Ana Bautista RT(R) Service: Radiology Author [...] RD, EARLT, Wallace April 27, 2021 12:23 [facility]10-09-2021 History of Past illness [...] of this encounter (statuses as of 11/01/2021) [facility]10-09-2021 History of Past illness Narrative* Problem Noted [...] of this encounter (statuses as of 11/19/2021) [facility]10-09-2021 History of Past illness Narrative* Problem Noted [...] of this encounter (statuses as of 04/22/2022) [facility]10-09-2021 History of Past illness Narrative* Problem Noted [...] of this encounter (statuses as of 04/29/2022) [facility]10-09-2021 History of Past illness Narrative* Problem Noted [...] of this encounter (statuses as of 02/25/2023) [facility]10-09-2021 NoteHNO ID: [id number] Author: Anila Wise [email or web address] Service: Critical Care [...] Is Patient Clinically Ready to Transfer to [facility] or SDU?: No Discharge Planning: To [...] Pulmonary Acute respiratory insufficie (more content not included)...[facility]10-09-2021 NoteHNO ID: [id number] Author: Jose M Cedillo MD Service: Interventional [...] to look [facility] air [facility]2021 NoteHNO ID: [id number] Author: Interface Note Service: ? Author Type: ? Type: Progress Notes Filed: 04/27/2021 2:51 AM Note Text: Psychiatric Scheduled Downtime: 04/27/2021 1:00:00 AM to 04/27/2021 2:33:00 [facility]10-08-2021 NoteHNO ID: [id number] Author: Marva Stiles [email or web address] Service: Critical Care [...] the A/P section below. Please refer to Psychiatric for list of inpatient medications. VITAL SIGNS: [...] Is Patient Clinically Ready to Transfer to [facility] or SDU?: No Discharge Planning: To [...] 1245 vte pharmacologic prophyl (more content not included)...[facility]10-08-2021 NoteHNO ID: [id number] Author: Galdino Gaona DO Service: Critical Care Author Type: Fellow Type: Procedures Filed: 04/26/2021 4:34 PM Note Text: BEDSIDE PROCEDURE NOTE CENTRAL LINE INSERTION Date/Start Time: 04/26/2021 4:33 PM Performed by: Galdino Gaona DO Authorized by: Polly Reyna MD Informed Consent Consent Obtained: Written Craig Protocol A moment to CARE was completed. [...] was applied following the usual aseptic technique. [facility] Central Line Insertion Checklist, attached to the [...] Pineda DATE: April 26, 2021 TIME: 4:32 [facility]10-08-2021 NoteHNO ID: [id number] Author: Polly Reyna MD Service: Critical Care [...] MD SICU Staff. 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 Intra-abdominal and pelvic swelling, mass and lump, unspecified site Abdominal mass, unspecified abdominal location documented in this encounter [facility]* Diagnosis History of tumor- Primary Personal history of other specified diseases documented in this encounter [facility] noteNo [email or web address] Other History general Narrative - Reported* Type Description Date Medical History Fatigue Medical History Gall bladder polyp Medical History Atopic dermatitis, mild Medical History DESMOID FIBROMATOSIS Surgical History C section x 3 Surgical History wisdom teeth Surgical History RIGHT ABDOMINAL WALL MASS Hospitalization History see above [facility] [employer] Other Advance Directives No Advanced Directives Records FoundDocuments on File Type Date Recorded Patient Gore Cutter Expl anation Advance Directive(s) 04/10/2021 12:55 PM Advance Directive(s) 03/07/2021 6:15 PM Reason for Referral Specialty Diagnoses / Procedures Referred By Contac t Referred To Contact MR IMAGING Diagnoses Desmoid Abdominal mass, unspecified abdominal location Procedures MRI PELVIS WO/W IVCON MRI PELVIS W/O & W/CONTRAST MATERIAL Melani Russell MD [address] [place] [address] Mr Imaging Referral ID Status Reason Start Date Expiration Date V isits Requested Visits Authorized [id number] Closed Auto-Generate d Referral 03/30/2022 10/27/2022 1 1 Specialty Diagnoses / Procedures Referred By Contac t Referred To Contact MR IMAGING Diagnoses Desmoid Intra-abdominal and pelvic swelling, mass and lump, unspecified site Procedures MRI ABDOMEN WO/W IVCON MRI ABDOMEN W/O & W/CONTRAST MATERIAL Melani Russell MD [address] [place] [address] Mr Imaging Referral ID Status Reason Start Date Expiration Date V isits Requested Visits Authorized [id number] Closed Auto-Generate d Referral 03/30/2022 10/27/2022 1 1 Specialty Diagnoses / Procedures Referred By Contac t Referred To Contact MR IMAGING Diagnoses History of tumor Procedures MRI PELVIS WO/W IVCON MRI PELVIS W/O & W/CONTRAST MATERIAL Melani Russell MD [address] [place] [address] Mr Imaging Referral ID Status Reason Start Date Expiration Date Visits Requested Visits Authorized [id number] Pending Review Auto-Generat ed Referral 10/28/2022 05/29/2023 1 1 Specialty Diagnoses / Procedures Referred By Katie verdugo Referred To Contact MR IMAGING Diagnoses History of tumor Procedures MRI ABDOMEN WO/W IVCON MRI ABDOMEN W/O & W/[place] [address] [place] [address] Mr Imaging Referral ID Status Reason Start Date Expiration Date Visits Requested Visits Authorized [id number] Pending Review Auto-Generat ed Referral 10/28/2022 05/29/2023 [...] or prosecute any alcohol or drug abuse patient.[facility] the event this information is protected by the Federal Confidentiality of Alcohol and Drug Abuse Patient Records regulations: The Federal rules restrict any use of the information to criminally investigate or prosecute any alcohol or drug abuse patient.[facility] CenterIn the event this information is protected by the Federal Confidentiality of Alcohol and Drug Abuse Patient Records regulations: The Federal rules restrict any use of the information to criminally investigate or prosecute any alcohol or drug abuse patient.[facility] Center[facility] the event this information is protected by the Federal Confidentiality of Alcohol and Drug Abuse Patient Records regulations: The Federal rules restrict any use of the information to criminally investigate or prosecute any alcohol or drug abuse patient.[facility] CenterIn the event this information is protected by the Federal Confidentiality of Alcohol and Drug Abuse Patient Records regulations: The Federal rules restrict any use of the information to criminally investigate or prosecute any alcohol or drug abuse patient.[facility] CenterIn the event this information is protected by the Federal Confidentiality of Alcohol and Drug Abuse Patient Records regulations: The Federal rules restrict any use of the information to criminally investigate or prosecute any alcohol or drug abuse patient.[facility] Reason for Visit (unrecogniz ed section and content) Reason Comments Care Coordination Reason Comments Radiology MRI Specialty Diagnoses / Procedures Referred By Contac t Referred To Contact MR IMAGING Diagnoses Desmoid Intra-abdominal and pelvic swelling, mass and lump, unspecified site Procedures MRI ABDOMEN WO/W IVCON MRI ABDOMEN W/O & W/CONTRAST MATERIAL [place], [place] [address] [place] [address] Mr Imaging Referral ID Status Reason Start Date Expiration Date V isits Requested Visits Authorized [id number] Closed Auto-Generate d Referral 03/30/2022 10/27/2022 1 1 Reason Comments Established Patient Reason Comments Radiology MRI Specialty Diagnoses / Procedures Referred By Katie verdugo Referred To Contact MR IMAGING Diagnoses Intra-abdominal and pelvic swelling, mass and lump, unspecified site Procedures MRI ABDOMEN WO/W IVCON MRI,ABDOMEN,W&WO Cortez Dubois MD [address] [place] [address] [place] [address] Referral ID Status Reason Start Date Expiration Date V isits Requested Visits Authorized [id number] Closed Auto-Generate d Referral 02/14/2021 03/16/2022 1 1 Care Teams (unrecognized sec tion and content) Fire Sprinkler Fitter Relationship Specialty [place] [address] [place] [address] Physician Hematology/Oncology 05/20/21 Chey Tamayo RN [address] [place] [id number] Specialty Aviation Manager Oncology 05/20/21 Fire Sprinkler Fitter Relationship Specialty [place] [address] [place] [address] Physician Hematology/Oncology 05/20/21 Claritza Tamayo RN [address] [place] [id number] Specialty Aviation Manager Oncology 05/20/21 Fire Sprinkler Fitter Relationship Specialty Start Date End Date Melani Russell MD [address] [place] [address] Physician Hematology/Oncology 05/20/21 [place] [address] [place] [address] Specialty Aviation Manager Oncology 05/20/21 Fire Sprinkler Fitter Relationship Specialty [place] [address] [place], [place] [id number] Physician Hematology/Oncology 05/20/21 [place] [address] [place], [place] [id number] Specialty Aviation Manager Oncology 05/20/21 Fire Sprinkler Fitter Relationship Specialty Start Date End Date Melani Russell MD [address] [place] [address] [phone] Physician Hematology/Oncology 05/20/21 [place] [address] [place] [address] Specialty Aviation Manager Hematology/Oncology 06/10/22 INFORMATION SOURCE (unrecogn ized section and content) DATE CREATED AUTHOR 04/23/2022 [facility] DATE CREATED AUTHOR AUTHOR'S ORGANIZ ATION 11/02/2022 [facility] DATE CREATED AUTHOR AUTHOR'S ORGANIZ ATION 09/22/2023 [facility] FOR RECORDS PERTAINING TO PATIENTS WHO [...] BE BASED ON THE PRIMARY CLINICAL RECORDS. [employer] provides no warranty or guarantee of the accuracy or completeness of information in this document.
[2023-09-25 10:31] VITALS: BP 116/73; PULSE 71
== END 2023-09-25 11:00 | disposition home or self-care (01) ==
LOC: US 09:53 → FBC 10:04
PROVIDERS: PCP Internal Medicine; Visit Provider Obstetrics & Gynecology
DX: O36.60X0 Maternal care for excessive fetal growth, unspecified trimester, not applicable or unspecified (principal); Z3A.36 36 weeks gestation of pregnancy
CPT/HCPCS: 76816; 76818

== ENCOUNTER 2023-09-28 21:47 | Outpatient (REF) | payer OTHER, SELFPAY ==
--- OUTSIDE RECORDS SUMMARY | 2023-09-28 21:50 | XMS_ITS | CCD ---
Author Name Unknown Address [address] [place] [address] Organization [facility] Care Team Providers Care Branch Operations Coordinator Name Role Phone Drew JAMES, Melani Unavailable Yariel GARCIA, Chey Unavailable [phone] Yariel GARCIA, Claritza Andrade Unavailable [phone] Melani Russell MD Unavailable Claritza Tamayo RN [...] WINY Attending Unavailable AUDELIA, SUKHJINDER Attending Unavailable AUDELIA, SUKHJINDER Attending Unavailable AUDELIA, SUKHJINDER Attending Unavailable AUDELIASUKHJINDER Attending Unavailable AUDELIASUKHJINDER Attending Unavailable AUDELIA, SUKHJINDER Attending Unavailable ADRIANNE MERCHANT Attending Unavailable Allergies Allergy Classification Reported Allergen(s) Allergy Type Date of Onset Reaction(s) Facility (7 sources) Codeine; Translations: [CODEINE] Drug Allergy 1 GI Upset [facility] (7 sources) Adhesive Tape-Silicones; Translations: [ADHESIVE TAPE-SILICONES] Drug Allergy 1 Other: See Comments [facility] (2 sources) Adhesive agent Drug allergy Unknown [facility] Other (2 sources) Codeine Drug Allergy nausea [facility] Other (1 source) Codeine Drug Allergy 1 [facility] (1 source) Desonide Drug Allergy 1 [facility] Medications Current Medications Medication Drug [...] on above: Take 1 tablet by jose th twice daily. Problems Active Problems Problem Classification [...] 10-27-2022 BASO # 0.1 103/ul Normal 0.0-0.1 [facility] Comment on above: Performed By: #### C BC #### [facility] [address] [address] [address] [place] Cobos Basophils/100 WBC (Bld) 0.9 % Normal 0.2-2.0 [facility] Comment on above: Performed By: #### C BC #### [facility] [address] [address] [address] [place] Cobos EO # 0.1 103/ul Normal 0.0-0.7 [facility] Comment on above: Performed By: #### C BC #### [facility] [address] [address] [address] [place] Cobos Eosinophils/100 WBC (Bld) 1.4 % Normal 0.9-7.0 [facility] Comment on above: Performed By: #### C BC #### [facility] [address] [address] [address] [place] Cobos Erythrocyte distribution width (RBC) [Ratio] 11.8 % Normal 11.0-15.0 [facility] Comment on above: Performed By: #### C BC #### [facility] [address] [address] [address] [place] Cobos Hematocrit (Bld) [Volume fraction] 38.5 % Normal 36.0-48.0 [facility] Comment on above: Performed By: #### C BC #### [facility] [address] [address] [address] [place] Cobos Hemoglobin (Bld) [Mass/Vol] 13.3 g/dL Normal 12.0-16.0 [facility] Comment on above: Performed By: #### C BC #### [facility] [address] [place] [address] Dr. Rancho Cobos IG # 0.01 10e3/ul Normal 0.00-0.03 [facility] Comment on above: Performed By: #### C BC #### [facility] [address] [place] [address] Dr. [place] Cobos IG % 0.2 % Normal 0.0-0.5 [facility] Comment on above: Performed By: #### C BC #### [facility] [address] [place] [address] Dr. Rancho Cboos LYMPH # 1.7 103/ul Normal 1.2-3.8 [facility] Comment on above: Performed By: #### C BC #### [facility] [address] [place] [address] Dr. [place] Cobos Lymphocytes/100 WBC (Bld) 31.2 % Normal 20.5-60.0 [facility] Comment on above: Performed By: #### C BC #### [facility] [address] [place] [address] Dr. [place] Cobos MANUAL DIFF REQ NO Normal [facility] Comment on above: Performed By: #### C BC #### [facility] [address] [place] [address] Dr. Rancho Cobos MCH (RBC) [Entitic mass] 31.9 pg Normal 26.7-34.0 [facility] Comment on above: Performed By: #### C BC #### [facility] [address] [place] [address] Dr. Rancho Cobos MCHC (RBC) [Mass/Vol] 34.5 g/dL Normal 29.9-35.2 [facility] Comment on above: Performed By: #### C BC #### [facility] [address] [place] [address] Dr. [place]o Cobos MCV (RBC) [Entitic vol] 92.3 fL Normal 81.0-99.0 [facility] Comment on above: Performed By: #### C BC #### [facility] [address] [place] [address] Dr. [place] Cobos MONO # 0.3 103/ul Normal 0.3-0.8 [facility] Comment on above: Performed By: #### C BC #### [facility] [address] [address] [address] [place] Cobos Monocytes/100 WBC (Bld) 5.2 % Normal 1.7-12.0 [facility] Comment on above: Performed By: #### C BC #### [facility] [address] [place] [address] Dr. [place] Cobos NEUT # 3.4 103/ul Normal 1.4-6.5 [facility] Comment on above: Performed By: #### C BC #### [facility] [address] [place] [address] Dr. [place] Cobos Neutrophils/100 WBC (Bld) 61.1 % Normal 43.0-75.0 [facility] Comment on above: Performed By: #### C BC #### [facility] [address] [place] [address] Dr. [place] Cobos Platelet mean volume (Bld) [Entitic vol] 9.4 fL Critically low 9.5-13.5 [facility] Comment on above: Performed By: #### C BC #### [facility] [address] [place] [address] Dr. [place] Cobos PLT 261 103/ul Normal 150-450 [facility] Comment on above: Performed By: #### C BC #### [facility] [address] [place] [address] Dr. [place] Cobos RBC 4.17 106/ul Critically low 4.20-5.40 [facility] Comment on above: Performed By: #### C BC #### [facility] [address] [place] [address] Dr. [place] Cobos WBC 5.6 103/ul Normal 4.0-11.0 [facility] Comment on above: Performed By: #### C BC #### [facility] [address] [address] [address] [place] Cobos LIPID PROFILEon 10-27-2022 CHOL-HDL RATIO NORM SEE BELOW Normal [facility] Comment on above: Result Comment: 3.3 - 4.4 LOW RISK 4.4 - 7.1 AVERAGE RISK 7.1 - 11.0 MODERATE RISK >11.0 HIGH RISK Performed By: #### C MP, LIPID, TSH #### [facility] [address] [address] [address] [place]os Cholesterol [Mass/Vol] 162 mg/dL Normal <=200 [facility] Comment on above: Performed By: #### C MP, LIPID, TSH #### [facility] [address] [address] [address] [place]os Cholesterol in HDL [Mass/Vol] 56 mg/dL Normal 40-60 [facility] Comment on above: Performed By: #### C MP, LIPID, TSH #### [facility] [address] [place] [address] Dr. [place]os Cholesterol in LDL [Mass/Vol] 97.0 mg/dL Normal [facility] Comment on above: Performed By: #### C MP, LIPID, TSH #### [facility] [address] [place] [address] Dr. [place]os Cholesterol.total/ Cholesterol in HDL [Mass ratio] 2.9 {ratio} Normal [facility] Comment on above: Performed By: #### C MP, LIPID, TSH #### [facility] [address] [address] [address] [place] Cobos HDL NORMAL > or = 60 mg/dl - LO W CARDIOVASCULAR RISK <40 mg/dl - HIGH CARDIOVASCULAR RISK Normal [facility] Comment on above: Performed By: #### C MP, LIPID, TSH #### [facility] [address] [place] [address] Dr. [place] Cobos LDL CALC NORMAL SEE BELOW Normal [facility] Comment on above: Result Comment: <100 mg/dl OPTIMAL 100 - 129 mg/dl NEAR OR ABOVE OPTIMAL 130 - 159 mg/dl BORDERLINE HIGH 160 - 189 mg/dl HIGH >190 mg/dl VERY HIGH Performed By: #### C MP, LIPID, TSH #### [facility] [address] [address] [address] [place]os Triglyceride [Mass/Vol] 45 mg/dL Normal <=150 [facility] Comment on above: Performed By: #### C MP, LIPID, TSH #### [facility] [address] [address] [address] [place]os VLDL CALC 9.0 mg/dL Normal [facility] Comment on above: Performed By: #### C MP, LIPID, TSH #### [facility] [address] [address] [address] [place] Cobos PROF 14(COMP METB)on 023 Albumin [Mass/Vol] 4.0 g/dL Normal 3.4-5.0 [facility] Comment on above: Performed By: #### C MP, LIPID, TSH #### [facility] [address] [address] [address] [place]os Albumin/Globulin [Mass ratio] 1.2 {ratio} Normal [facility] Comment on above: Performed By: #### C MP, LIPID, TSH #### [facility] [address] [address] [address] [place] Cobos ALP [Catalytic activity/Vol] 34 U/L Critically low 46-116 [facility] Comment on above: Performed By: #### C MP, LIPID, TSH #### [facility] [address] [address] [address] [place] Cobos ALT [Catalytic activity/Vol] 24 U/L Normal 14-59 [facility] Comment on above: Performed By: #### C MP, LIPID, TSH #### [facility] [address] [address] [address] [place]os Anion gap [Moles/Vol] 12.1 mmol/L Normal [facility] Comment on above: Performed By: #### C MP, LIPID, TSH #### [facility] [address] [address] [address] [place]os AST [Catalytic activity/Vol] 17 U/L Normal 15-37 [facility] Comment on above: Performed By: #### C MP, LIPID, TSH #### [facility] [address] [address] [address] [place]os Bilirubin [Mass/Vol] 0.5 mg/dL Normal 0.2-1.0 [facility] Comment on above: Performed By: #### C MP, LIPID, TSH #### [facility] [address] [place] [address] Dr. [place]os Calcium [Mass/Vol] 9.2 mg/dL Normal 8.5-10.1 [facility] Comment on above: Performed By: #### C MP, LIPID, TSH #### [facility] [address] [address] [address] [place]os Chloride [Moles/Vol] 107 mmol/L Normal 98-107 [facility] Comment on above: Performed By: #### C MP, LIPID, TSH #### [facility] [address] [place] [address] Dr. [place]os CO2 [Moles/Vol] 28.5 mmol/L Normal 21.0-32.0 [facility] Comment on above: Performed By: #### C MP, LIPID, TSH #### [facility] [address] [place] [address] Dr. [place]os Creatinine [Mass/Vol] 0.72 mg/dL Normal 0.55-1.02 [facility] Comment on above: Performed By: #### C MP, LIPID, TSH #### [facility] [address] [place] [address] Dr. [place] Cobos EGFR-AF PARAGUAYAN >60 Normal >=60 [facility] Comment on above: Performed By: #### C MP, LIPID, TSH #### [facility] [address] [place] [address] Dr. [place]os EGFR-NON AF PARAGUAYAN >60 Normal >=60 [facility] Comment on above: Performed By: #### C MP, LIPID, TSH #### [facility] [address] [place] [address] Dr. [place]os Globulin (S) [Mass/Vol] 3.4 g/dL Normal [facility] Comment on above: Performed By: #### C MP, LIPID, TSH #### [facility] [address] [address] [address] [place]os Glucose [Mass/Vol] 92 mg/dL Normal 74-106 [facility] Comment on above: Performed By: #### C MP, LIPID, TSH #### [facility] [address] [place] [address] Dr. [place]os Potassium [Moles/Vol] 4.6 mmol/L Normal 3.5-5.1 [facility] Comment on above: Performed By: #### C MP, LIPID, TSH #### [facility] [address] [place] [address] Dr. [place]os Protein [Mass/Vol] 7.4 g/dL Normal 6.4-8.2 [facility] Comment on above: Performed By: #### C MP, LIPID, TSH #### [facility] [address] [place] [address] Dr. [place]os Sodium [Moles/Vol] 143 mmol/L Normal 136-145 [facility] Comment on above: Performed By: #### C MP, LIPID, TSH #### [facility] [address] [place] [address] Dr. [place]os Urea nitrogen [Mass/Vol] 18.0 mg/dL Normal 7.0-18.0 [facility] Comment on above: Performed By: #### C MP, LIPID, TSH #### [facility] [address] [place] [address] Dr. [place]os Urea nitrogen/Creatinin e [Mass ratio] 25.0 mg/mg Normal [facility] Comment on above: Performed By: #### C MP, LIPID, TSH #### [facility] [address] [place] [address] Dr. [place] Cobos TSHon 10-27-2022 TSH 1.005 uIU/mL Normal 0.358-3.[address] [facility] Comment on above: Performed By: #### C MP, LIPID, TSH #### [facility] [address] [address] [address] [place] Cobos MRI ABDOMEN WO/W IVCONon [...] suspicious marrow signal abnormality. Lower chest: Unremarkable. Microwave Supervisor (localizer) images: No additional findings. IMPRESSION: Evolving changes of RIGHT rectus abdominis muscle ablation without local recurrence. No metastatic disease in abdomen or pelvis Housekeeping Associate[facility] Transcribe Date/Time: Apr 22 2022 10:29A Dictated by : LIBRADO JOAQUIN DO This examination was interpreted and the report reviewed and electronically signed by: CANELO EDMONDSON MD on Apr 22 2022 12:49PM EST [id number] Normal [facility] MRI PELVIS WO/W IVCONon 10-0 MRI PELVIS [...] suspicious marrow signal abnormality. Lower chest: Unremarkable. Microwave Supervisor (localizer) images: No additional findings. IMPRESSION: Evolving changes of RIGHT rectus abdominis muscle ablation without local recurrence. No metastatic disease in abdomen or pelvis Housekeeping Associate: ANEL Transcribe Date/Time: Apr 22 2022 10:29A Dictated by : LIBRADO JOAQUIN, DO This examination was interpreted and the report reviewed and electronically signed by: CANELO EDMONDSON MD on Apr 22 2022 12:49PM EST [id number] Normal [facility] CNPAmi 10-28-2021 CNPN Telephone (HEMCA3) OSCAR PINEDA ([id number]) 1985 F Date Time Provider Department 10/28/21 MELANI RUSSELL HEMCA3 During your visit today, we recorded the following information about you: Brittany Avendaño [facility] 10/28/2021 10:04 AM Signed Oscar Pineda is calling Melani Russell MD today regarding Care Coordination,calling with questions about with her condition. Patient has been identified by name and birthdate. Duration of symptoms: N/A Requesting response back: call on cell [phone] (home) [phone] (cell) Brittany Avendaño [facility] October 28, 2021 Brittany Avendaño [facility] 10/30/2021 3:25 PM Signed Patient calling stating she has not received a call back, Please call @ [phone] Melani Russell MD 11/19/2021 10:20 AM Signed This has been addressed through an POPAPP message. Melani Russell MD, PhD Staff, Hematology and Medical Oncology Allergies As of Date: 10/28/2021 Noted Allergy Reaction CODEINE 02/01/2021 8 - GI Upset ADHESIVE TAPE-SILICONES 02/14/2021 14 - Other: See Comments Comments: Blisters Date Reviewed: 09/27/2021 Reviewed by: Aliya Jean Baptiste, JOSE - Fully Assessed Reason for Visit: Care Coordination [3491] Prescriptions as of 11/19/2021 - sulindac (CLINORIL) [...] Encounter Status:Closed by BRITTANY LIAO on 11/01/21 Normal [facility] CNOVSPon 09-27-2021 CNOVSP Visit (SP) Office (HEMCA4) SARAVANANOSCAR GRACE ([id number]) 1985 F Date Time Provider Department 09/27/21 9:00 AM MELANI RUSSELL HEMCA4 During your visit today, we recorded the following information about you: Pulse Respiration Blood pressure Weight 65/minute 20/minute 149/67 77.6 kg Melani Russell MD 10/07/2021 12:24 PM Signed [facility] ESTABLISHED PATIENT VISIT PATIENT NAME: Oscar Pineda [...] Melani Pérez MD Internal Medicine Resident, PGY-1 [facility] 09/27/2021 SOLID TUMOR STAFF: ATTENDING PHYSICIAN [...] No Does patient want to see a Body Builder? No (yes to any of (more content not included)... Normal [facility] MRI ABDOMEN WO/W IVCONon MRI ABDOMEN WO/W [...] diffusion weighted and T1 weighted in- and dgh-vj-kvzza images were obtained. Then, using a 3-D [...] muscle mass, without evidence for residual/recurrent disease. Housekeeping Associate: ANEL Transcribe Date/Time: Sep 20 2021 4:49P Dictated by : CHRIS MILIAN MD This examination was interpreted and the report reviewed and electronically signed by: CHRIS MILIAN MD on Sep 20 2021 4:58PM EST [id number] Normal [facility] MRI PELVIS WO/W IVCONon 03-0 MRI PELVIS [...] diffusion weighted and T1 weighted in- and unz-gr-blzjn images were obtained. Then, using a 3-D [...] muscle mass, without evidence for residual/recurrent disease. Housekeeping Associate: ANEL Transcribe Date/Time: Sep 20 2021 4:49P Dictated by : CHRIS MILIAN MD This examination was interpreted and the report reviewed and electronically signed by: CHRIS MILIAN MD on Sep 20 2021 4:58PM EST [id number] Normal [facility] CNPNon 08-09-2021 CNPN Telephone (HEMCA3) OSCAR PINEDA ([id number]) 1985 F Date Time Provider Department 08/09/21 [...] N/A Requesting response back: call on cell [phone] (home) [phone] (cell) Marva Gualberto Adm August 09, 2021 Chey Tamayo RN 08/09/2021 4:42 PM Signed Returned call to patient and informed her that moving her visit with Dr. Russell after the MRI would be best to establish a plan of care. Patient was appreciative of return call and information. Chey Tamayo RN [employer] Store Door Greeter August 09, 2021 Allergies As of Date: [...] Encounter Status:Closed by CLARITZA TAMAYO on 08/09/21 [facility] Nishant 05-22-2021 [facility] OSCAR PINEDA ([id number]) 1985 F Date Time Provider Department 05/22/21 MELIDA QUINTERO During your visit today, we recorded the following information about you: LANETTE De Leon 05/22/2021 2:32 PM Signed Patient name and was confirmed at initiation of discussion. Osacr Pineda's Common Hereditary Cancers Panel through [employer] was negative for a pathogenic variant. Please [...] Encounter Status:Closed by MELIDA QUINTERO on 05/22/21 [facility] 05-15-2021 CNPN Telephone (HEMCA3) OSCAR PINEDA ([id number]) 1985 F Date Time Provider Department 05/15/21 [...] N/A Requesting response back: call on cell [phone] (home) [phone] (cell) Marva Burciaga Adm May 15, 2021 [...] 04/30/2021 Encounter Status:Closed by MELANI RUSSELL on 10/29/21 Normal [facility] Molecular Teston 2020 Test Common Hereditary Cancers Panel Normal [facility] Comment on above: Performed By: #### M OL13 ####[facility] [id number] [place] [address] Test Results View results in Scan zahraa Documents link when available. Normal [facility] Comment on above: Performed By: #### M OL13 ####[facility] [id number] [place] [address] Nishant 05-01-2021 [facility] Telephone (JULIANN) OSCAR PINEDA ([id number]) 1985 F Date Time Provider Department 05/01/21 MELIDA QUINTERO During your visit today, we recorded the following information about you: Mindy Arguelloesh 05/01/2021 11:53 AM Signed I reached out [...] questions or concerns. Mindy Farley Genetic Counselor Head Librarian Allergies As of Date: 05/01/2021 Noted Allergy [...] Status:Closed by MINDY FARLEY on 05/01/21 Normal [facility] CBCon 04-30-2021 Absolute nRBC <0.01 Normal <0.01 [facility] Comment on above: Performed By: #### C BC ####[facility] [address] [place], [place] [phone] Erythrocyte distribution width (RBC) [Ratio] 12.0 % Normal 11.5-15.0 [facility] Comment on above: Performed By: #### C BC ####[address] [place] [address] [address], [place] [phone] Hematocrit (Bld) [Volume fraction] 33.8 % Low 36.0-46.0 [facility] Comment on above: Performed By: #### C BC ####[address] [place] [address] [address], [place] [phone] Hemoglobin (Bld) [Mass/Vol] 11.8 g/dL Normal 11.5-15.5 [facility] Comment on above: Performed By: #### C BC ####[address] [address] [address], [place] [phone] MCH 31.5 pG Normal 26.0-34.0 [facility] Comment on above: Performed By: #### C BC ####[address] [place] [address] [address], [place] [phone] MCHC (RBC) [Mass/Vol] 34.9 g/dL Normal 30.5-36.0 [facility] Comment on above: Performed By: #### C BC ####[address] [place] [address] [address], [place] [phone] MCV (RBC) [Entitic vol] 90.1 fL Normal 80.0-100.0 [facility] Comment on above: Performed By: #### C BC ####[address] [address] [address], [place] [phone] Platelet mean volume (Bld) [Entitic vol] 9.6 fL Normal 9.0-12.7 [facility] Comment on above: Performed By: #### C BC ####[address] [place] [address] [address], [place] [phone] Platelets (Bld) [#/Vol] 182 10*3/uL Normal 150-400 [facility] Comment on above: Performed By: #### C BC ####[address] [place] [address] [address], [place] [phone] RBC (Bld) [#/Vol] 3.75 10*6/uL Low 3.90-5.[address] [facility] Comment on above: Performed By: #### C BC ####[facility] [address] [place], [place] [phone] WBC (Bld) [#/Vol] 12.88 10*3/uL High 3.70-11.00 [facility] Comment on above: Performed By: #### C BC ####[facility] [address] [place], [place] [phone] CNDSon 04-30-2021 CNDS HNO ID: [id number] Author: Katty Logan APRN.[employer] Service: Critical Care Author Type: Nurse Practitioner [...] air KIMBER (more content not included)... Normal [facility] THERAPY NTon 04-30-2021 THERAPY NT HNO ID: [id number] Author: Licha Llanes, PT Service: Physical Therapy Author Type: Physical Therapist Type: Therapy (PT/OT/Speech/Resp) Filed: 04/30/2021 3:02 PM Note Text: Physical Therapy Treatment SERVICE DATE: 04/30/2021 SERVICE TIME: 1342 to 1351 ROOM: [place] [address] Recommended Discharge Disposition: Home Recommended Discharge Disposition [...] gait and mobility-other Interventions Provided: Gait Training (52526) Gait Training (83766) Treatment Minutes: 9 $ Gait Training (65177) Billed Units: 1 unit Training AND education provided in: Discharge planning, Energy conservation, Exercise program, Expected functional level, Falls prevention, Gait pattern, reduction of deviations, Home safe (more content not included)... Normal [facility] ALLIED HEALTHon 04-29-2021 ALLIED HEALTH HNO ID: [id number] Author: Ana Watters RN Service: Healing Service [...] 29, 2021 TIME: 8:11 AM CONTACT #: [phone] Normal [facility] APTTon 04-29-2021 aPTT Coag (Bld) [Time] 26.4 s Normal 23.0-32.4 [facility] Comment on above: Result Comment: Unfr actionated [...] laboratory APTT reagent in use throughout the [facility]. 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 Last discharge within 30 days: No Advance Directive: Current Advance Directive: None Lab Assistant Attempted to Assist with AD Completion: No [...] None Has the Patient Been in a Fpc Facility in the Past 30 days?: No SOCIAL: Living Arrangements: Home Lives With: Spouse Primary Contact: Extended Emergency Contact Information Primary Emergency Contact: LAURA PINEDA Address: [address] [place] [address] [facility] Mobile Relation: Spouse Supportive Patient Contact:: Yes Contact Resources: Family Family Name/Phone: LAURA PINEDA (Spouse) [phone] Caregiver AssessmentCaregiver is ready, willing and able [...] Mostly I feel financially burdened by my zqr-di-oggfel expenses for my prescription medication:: 0 - Disagree Mostly Risk Score: 0 Patient is categorized as: Low risk < 2 Med Adherance Assessement not completed due to: No ASSAYER HELPER meds Are you interested in bedside delivery of your medications? Yes Is Patient Psychosocially Complex?: No ASSESSMENT AND PLAN: Medical Needs: Medical Needs: None Psychosocial Needs: Psychosocial Needs: None FREEDOM OF CHOICE EXPLAINED: [place] of Choice Given: No Reason Not Given: No placements necessary POTENTIAL TRANSITION PLANS No Services Indicated SIGNATURE: Rocio Bear RN MSN PATIENT NAME: Oscar Pineda DATE: April 29, 2021 TIME: 11:53 AM PAGER/CONTACT #: [phone] Normal [facility] CBCon 04-29-2021 Absolute nRBC <0.01 Normal <0.01 [facility] Comment on above: Performed By: #### C BC, MG1, PHOS, PTT, CMP, PT ####[facility] [place], [place] [phone] Erythrocyte distribution width (RBC) [Ratio] 11.8 % Normal 11.5-15.0 [facility] Comment on above: Performed By: #### C BC, MG1, PHOS, PTT, CMP, PT ####[place] [address] [address] [place] [phone] Hematocrit (Bld) [Volume fraction] 37.0 % Normal 36.0-46.0 [facility] Comment on above: Performed By: #### C BC, MG1, PHOS, PTT, CMP, PT ####[place] [address] [address] [place] [phone] Hemoglobin (Bld) [Mass/Vol] 12.3 g/dL Normal 11.5-15.5 [facility] Comment on above: Performed By: #### C BC, MG1, PHOS, PTT, CMP, PT ####[place] [address] [address] [place] [phone] MCH 30.9 pG Normal 26.0-34.0 [facility] Comment on above: Performed By: #### C BC, MG1, PHOS, PTT, CMP, PT ####[place] [address] [address] [place] [phone] MCHC (RBC) [Mass/Vol] 33.2 g/dL Normal 30.5-36.0 [facility] Comment on above: Performed By: #### C BC, MG1, PHOS, PTT, CMP, PT ####[place] [address] [address] [place] [phone] MCV (RBC) [Entitic vol] 93.0 fL Normal 80.0-100.0 [facility] Comment on above: Performed By: #### C BC, MG1, PHOS, PTT, CMP, PT ####[place] [address] [address] [place] [phone] Platelet mean volume (Bld) [Entitic vol] 10.0 fL Normal 9.0-12.7 [facility] Comment on above: Performed By: #### C BC, MG1, PHOS, PTT, CMP, PT ####[place] [address] AveClevelBoston, [place] [phone] Platelets (Bld) [#/Vol] 188 10*3/uL Normal 150-400 [facility] Comment on above: Performed By: #### C BC, MG1, PHOS, PTT, CMP, PT ####[place] [address] [address], [place] [phone] RBC (Bld) [#/Vol] 3.98 10*6/uL Normal 3.90-5.[address] [facility] Comment on above: Performed By: #### C BC, MG1, PHOS, PTT, CMP, PT ####[place] [address] [address], [place] [phone] WBC (Bld) [#/Vol] 11.41 10*3/uL High 3.70-11.00 [facility] Comment on above: Performed By: #### C BC, MG1, PHOS, PTT, CMP, PT ####[place] [address] [address], [place] [phone] Comp Metabolic Panelon 04-29 Albumin [Mass/Vol] 3.5 g/dL Low 3.9-4.9 [facility] Comment on above: Performed By: #### C BC, MG1, PHOS, PTT, CMP, PT ####[place] [address], [place] [phone] ALP [Catalytic activity/Vol] 43 U/L Normal 34-123 [facility] Comment on above: Performed By: #### C BC, MG1, PHOS, PTT, CMP, PT ####[place] [address], [place] [phone] ALT [Catalytic activity/Vol] 56 U/L High 7-38 [facility] Comment on above: Performed By: #### C BC, MG1, PHOS, PTT, CMP, PT ####[facility], [place] [phone] Anion gap [Moles/Vol] 14 mmol/L Normal 9-18 [facility] Comment on above: Performed By: #### C BC, MG1, PHOS, PTT, CMP, PT ####[place] [address], [place] [phone] AST [Catalytic activity/Vol] 171 U/L High 13-35 [facility] Comment on above: Performed By: #### C BC, MG1, PHOS, PTT, CMP, PT ####[place] [address] [address], [place] [phone] Bilirubin [Mass/Vol] 0.6 mg/dL Normal 0.2-1.3 [facility] Comment on above: Performed By: #### C BC, MG1, PHOS, PTT, CMP, PT ####[place] [address] [address], [place] [phone] Calcium [Mass/Vol] 8.3 mg/dL Low 8.5-10.2 [facility] Comment on above: Performed By: #### C BC, MG1, PHOS, PTT, CMP, PT ####[place] [address] [address], [place] [phone] Chloride [Moles/Vol] 100 mmol/L Normal 97-105 [facility] Comment on above: Performed By: #### C BC, MG1, PHOS, PTT, CMP, PT ####[place] [address] [address], [place] [phone] CO2 [Moles/Vol] 25 mmol/L Normal 22-30 [facility] Comment on above: Performed By: #### C BC, MG1, PHOS, PTT, CMP, PT ####[place] [address], [place] [phone] Creatinine [Mass/Vol] 0.78 mg/dL Normal 0.58-0.96 [facility] Comment on above: Performed By: #### C BC, MG1, PHOS, PTT, CMP, PT ####[facility] [place], [place] [phone] eGFR- Amer. >60 Normal [facility] Comment on above: Performed By: #### C BC, MG1, PHOS, PTT, CMP, PT ####[facility] [place], [place] [phone] eGFR-All Other Races >60 Normal [facility] Comment on above: Result Comment: eGFR (Estimated [...] MG1, PHOS, PTT, CMP, PT ####[facility] [place], [place] [phone] Glucose [Mass/Vol] 167 mg/dL High 74-99 [facility] Comment on above: Result Comment: The [place] Diabetes Association (ADA) provides guidance for cutoff [...] Standards of Medical Care in Diabetes 2016, [place] [employer]. Diabetes Care. 2016.39(Suppl 1). Performed By: #### C BC, MG1, PHOS, PTT, CMP, PT ####[place] [address] [address], [place] [phone] Potassium [Moles/Vol] 3.9 mmol/L Normal 3.7-5.1 [facility] Comment on above: Performed By: #### C BC, MG1, PHOS, PTT, CMP, PT ####[place] [address] [address] [place] [phone] Protein [Mass/Vol] 6.0 g/dL Low 6.3-8.0 [facility] Comment on above: Performed By: #### C BC, MG1, PHOS, PTT, CMP, PT ####[place] [address] [address], [place] [phone] Sodium [Moles/Vol] 139 mmol/L Normal 136-144 [facility] Comment on above: Performed By: #### C BC, MG1, PHOS, PTT, CMP, PT ####[address], [place] [phone] Urea nitrogen [Mass/Vol] 9 mg/dL Normal 7-21 [facility] Comment on above: Performed By: #### C BC, MG1, PHOS, PTT, CMP, PT ####[address] [phone] GASV + ALLon 04-29-2021 Base Excess 4 mmol/L Normal [facility] Comment on above: Performed By: #### V ALLBG ####[place] [address] [address], [place] [phone] Calcium [Moles/Vol] 1.15 mmol/L Normal 1.08-1.30 [facility] Comment on above: Performed By: #### V ALLBG ####[place] [phone] Carboxyhemoglobin, Ziyad 1.2 % Normal <2.1 [facility] Comment on above: Performed By: #### V ALLBG ####[place] [address] [address] [place] [phone] CO2 [Moles/Vol] 31 mmol/L High 25-29 [facility] Comment on above: Performed By: #### V ALLBG ####[place] [address] [address] [place] [phone] Glucose [Mass/Vol] 178 mg/dL High 60-105 [facility] Comment on above: Performed By: #### V ALLBG ####[place] [address] [address] [place] [phone] HCO3 (Bld) [Moles/Vol] 29 mmol/L High 24-28 [facility] Comment on above: Performed By: #### V ALLBG ####[place] [address] [address] [place] [phone] Lactate [Moles/Vol] 1.3 mmol/L Normal 0.5-2.2 [facility] Comment on above: Performed By: #### V ALLBG ####[place] [address] [address] [place] [phone] Methemoglobin 0.7 % Normal <1.6 [facility] Comment on above: Performed By: #### V ALLBG ####[place] [address] [address] [place] [phone] O2 Administered 40% Normal [facility] Comment on above: Performed By: #### V ALLBG ####[place] [address] [address] [place] [phone] pCO2 51 mm Hg Normal 42-55 [facility] Comment on above: Performed By: #### V ALLBG ####[place] [address] [address], [place] [phone] pCO2, Temp Correct 51 mm Hg Normal 42-55 [facility] Comment on above: Performed By: #### V ALLBG ####[facility], [place] [phone] Potassium [Moles/Vol] 4.0 mmol/L Normal 3.5-5.0 [facility] Comment on above: Performed By: #### V ALLBG ####[facility] [place] [phone] Base Excess 3 mmol/L Normal [facility] Comment on above: Performed By: #### V ALLBG ####[place] [address], [place] [phone] Blood Gas Comm, Ziyad . Normal [facility] Comment on above: Performed By: #### V ALLBG ####[place] [address], [place] [phone] Body temperature 98.6 [degF] Normal [facility] Comment on above: Performed By: #### V ALLBG ####[place] [address], [place] [phone] Calcium [Moles/Vol] 1.18 mmol/L Normal 1.08-1.30 [facility] Comment on above: Performed By: #### V ALLBG ####[place] [address] [address], [place] [phone] Carboxyhemoglobin, Ziyad 0.9 % Normal <2.1 [facility] Comment on above: Performed By: #### V ALLBG ####[facility], [place] [phone] CO2 [Moles/Vol] 30 mmol/L High 25-29 [facility] Comment on above: Performed By: #### V ALLBG ####[place] [address], [place] [phone] Glucose [Mass/Vol] 193 mg/dL High 60-105 [facility] Comment on above: Performed By: #### V ALLBG ####[place] [address] [address], [place] [phone] HCO3 (Bld) [Moles/Vol] 28 mmol/L Normal 24-28 [facility] Comment on above: Performed By: #### V ALLBG ####[place] [address] [address] [place] [phone] Hematocrit (Bld) [Volume fraction] 39.0 % Normal 36.0-46.0 [facility] Comment on above: Performed By: #### V ALLBG ####[place] [address] [address] [place] [phone] Hemoglobin (Bld) [Mass/Vol] 12.7 g/dL Normal 11.5-15.5 [facility] Comment on above: Performed By: #### V ALLBG ####[place] [address] [address] [place] [phone] Lactate [Moles/Vol] 1.6 mmol/L Normal 0.5-2.2 [facility] Comment on above: Performed By: #### V ALLBG ####[place] [address] [address] [place] [phone] Methemoglobin 1.0 % Normal <1.6 [facility] Comment on above: Performed By: #### V ALLBG ####[place] [address] [address], [place] [phone] O2 Administered 30% Normal [facility] Comment on above: Performed By: #### V ALLBG ####[place] [address], [place] [phone] Oxyhemoglobin, Ziyad. 78 % Normal 60-85 [facility] Comment on above: Performed By: #### V ALLBG ####[place] [address] [address], [place] [phone] pCO2 49 mm Hg Normal 42-55 [facility] Comment on above: Performed By: #### V ALLBG ####[place] [address] [address], [place] [phone] pCO2, Temp Correct 49 mm Hg Normal 42-55 [facility] Comment on above: Performed By: #### V ALLBG ####[address] [phone] pH (Bld) 7.38 [pH] Normal 7.32-7.42 [facility] Comment on above: Performed By: #### V ALLBG ####[address] [phone] pH, Temp Corrected 7.38 Normal 7.32-7.42 [facility] Comment on above: Performed By: #### V ALLBG ####[address] [phone] pO2 46 mm Hg High 35-45 [facility] Comment on above: Performed By: #### V ALLBG ####[address] [phone] pO2, Temp Corrected 46 mm Hg High 35-45 [facility] Comment on above: Performed By: #### V ALLBG ####[address] [phone] Potassium [Moles/Vol] 4.3 mmol/L Normal 3.5-5.0 [facility] Comment on above: Performed By: #### V ALLBG ####[address] [phone] Sodium [Moles/Vol] 141 mmol/L Normal 136-144 [facility] Comment on above: Performed By: #### V ALLBG ####[address] [phone] Magnesiumon 04-29-2021 Magnesium [Mass/Vol] 1.8 mg/dL Normal 1.7-2.3 [facility] Comment on above: Performed By: #### C BC, MG1, PHOS, PTT, CMP, PT ####[facility] [place], [place] [phone] NURSING PROGon 04-29-2021 NURSING PROG HNO ID: [id number] Author: Magda Rose RN Service: ? Author Type: Registered Nurse Type: Nursing Progress Note Filed: 04/29/2021 7:45 AM Note Text: Nursing Progress: Topic: RESTRAINT NON-VIOLENT PATIENT NAME: Oscar Pineda PATIENT LOCATION: [place] [address] The patient demonstrates Attempting to Remove Medical [...] TIME: 7:44 AM Diane Rose RN Normal [facility] Phosphoruson 04-29-2021 Phosphate [Mass/Vol] 3.2 mg/dL Normal 2.7-4.8 [facility] Comment on above: Performed By: #### C BC, MG1, PHOS, PTT, CMP, PT ####[facility] [place], [place] [phone] Protimeon 04-29-2021 PT INR 1.0 Normal 0.9-1.3 [facility] Comment on above: Result Comment: Neha min K Antagonist (VKA) Therapeutic Range: INR 2 to 3 (Target INR of 2.5) Note: For patients treated with VKA drugs, such as warfarin, the [place] [employer] 2012 Guideline recommends [...] Chest 2012, 141:7S-47S Daphne PEDERSON et al. [facility] 2017, 70: 252-289 Performed By: #### C BC, MG1, PHOS, PTT, CMP, PT ####[facility] [place], [place] [phone] PT Sec 11.0 sec Normal 9.7-13.0 [facility] Comment on above: Performed By: #### C BC, MG1, PHOS, PTT, CMP, PT ####[facility] [address] [place], [place] [phone] THERAPY NTon 04-29-2021 THERAPY NT HNO ID: [id number] Author: Neela Prasad, PT Service: Physical Therapy Author Type: Physical Therapist Type: Therapy (PT/OT/Speech/Resp) Filed: 04/29/2021 10:05 AM Note Text: Physical Therapy Evaluation SERVICE DATE: 04/29/2021 SERVICE TIME: 907 to 945 ROOM: [place] [address] Recommended Discharge Disposition: Home Recommended Discharge Disposition [...] trunk posture;Step length decreased;Non-functiona l gait speed [facility]: 7: Walk 25 feet or more Learning/Educational [...] Diagnosis: Reduced mobility-other Interventions Provided: Evaluation;Gait Training (47046);Therapeutic Activity (86626) $ Evaluation-Moderate (35974) Billed Units: 1 unit Therapeutic Activity (91765) Treatment Minutes: 8 $ Therapeutic Activity (55123) Billed Units: 1 unit Gait Training (42272) Treatment Minutes: 15 $ Gait Training (67321) Billed Units: 1 unit Training AND education provided in: Bed mobility, Benefits of in-hospital mobility, Discharge planning, Energy conservation, Expected functional level, Gait pattern, reduction of deviations, Positioning, Precautions/restriction s, Role of Physical Therapy, Sitting balance, Standing balance, Transfers, Treatment protocol, Equipment, Assistive device use The following therapeutic skills were used: Activity dosing, Assessment of tolerance includi (more content not included)... Normal [facility] Type and Screenon 04-29-2021 ABO/RH(D) Positive Normal [facility] Comment on above: Performed By: #### T SCR ####[facility] [address] [place], [place] [phone] APTTon 04-28-2021 aPTT Coag (Bld) [Time] 26.6 s Normal 23.0-32.4 [facility] Comment on above: Result Comment: Unfr actionated [...] laboratory APTT reagent in use throughout the [facility]. Performed By: #### P T, PTT, TRIG, CMP, CBC, MG1, PHOS ####[place] [address] [address], [place] [phone] Blood Cultureon 04-28-2021 Bacteria identified Cx Nom (Bld) Culture Result - No growth 5 days Normal [facility] Comment on above: Performed By: #### B LCUL ####[address] [phone] Bacteria identified Cx Nom (Bld) Culture Result - No growth 5 days Normal [facility] Comment on above: Performed By: #### B LCUL ####[address] [phone] CBCon 04-28-2021 Absolute nRBC <0.01 Normal <0.01 [facility] Comment on above: Performed By: #### P T, PTT, TRIG, CMP, CBC, MG1, PHOS ####[address] [phone] Erythrocyte distribution width (RBC) [Ratio] 12.4 % Normal 11.5-15.0 [facility] Comment on above: Performed By: #### P T, PTT, TRIG, CMP, CBC, MG1, PHOS ####[address] [phone] Hematocrit (Bld) [Volume fraction] 36.1 % Normal 36.0-46.0 [facility] Comment on above: Performed By: #### P T, PTT, TRIG, CMP, CBC, MG1, PHOS ####[address] [phone] Hemoglobin (Bld) [Mass/Vol] 11.8 g/dL Normal 11.5-15.5 [facility] Comment on above: Performed By: #### P T, PTT, TRIG, CMP, CBC, MG1, PHOS ####[place] [address], [place] [phone] MCH 30.9 pG Normal 26.0-34.0 [facility] Comment on above: Performed By: #### P T, PTT, TRIG, CMP, CBC, MG1, PHOS ####[address] [phone] MCHC (RBC) [Mass/Vol] 32.7 g/dL Normal 30.5-36.0 [facility] Comment on above: Performed By: #### P T, PTT, TRIG, CMP, CBC, MG1, PHOS ####[address] [phone] MCV (RBC) [Entitic vol] 94.5 fL Normal 80.0-100.0 [facility] Comment on above: Performed By: #### P T, PTT, TRIG, CMP, CBC, MG1, PHOS ####[address] [phone] Platelet mean volume (Bld) [Entitic vol] 9.8 fL Normal 9.0-12.7 [facility] Comment on above: Performed By: #### P T, PTT, TRIG, CMP, CBC, MG1, PHOS ####[address] [phone] Platelets (Bld) [#/Vol] 178 10*3/uL Normal 150-400 [facility] Comment on above: Performed By: #### P T, PTT, TRIG, CMP, CBC, MG1, PHOS ####[address] [phone] RBC (Bld) [#/Vol] 3.82 10*6/uL Low 3.90-5.[address] [facility] Comment on above: Performed By: #### P T, PTT, TRIG, CMP, CBC, MG1, PHOS ####[place] [address] [place], [place] [phone] WBC (Bld) [#/Vol] 11.29 10*3/uL High 3.70-11.00 [facility] Comment on above: Performed By: #### P T, PTT, TRIG, CMP, CBC, MG1, PHOS ####[facility] [place], [place] [phone] CT ABD/PEL W IVCONon 021 CT ABD/PEL W IVCON * * *Final Report* * * DATE OF EXAM: Apr 28 2021 2:10PM [facility] 0530 - CT ABD/PEL W [...] chest CT performed will be reported separately. Microwave Supervisor (topogram) images: No additional findings. IMPRESSION: Resolution of intravenous gas within the abdomen and pelvis. 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 Housekeeping Associate: PSCB Transcribe Date/Time: Apr 28 2021 2:50P Dictated by : KASHMIR RIVERA MD This examination was interpreted and the report reviewed and electronically signed by: ELIAS WOODY MD on Apr 28 2021 4:13PM EST [id number] Normal [facility] CT CHEST W IVCONon 1 CT CHEST W IVCON * * *Final Report* * * DATE OF EXAM: Apr 28 2021 2:10PM [facility] 0539 - CT CHEST W [...] There is minimal intrahepatic biliary ductal dilation. Microwave Supervisor (topogram) images: No additional findings. IMPRESSION: 1. No CT evidence of air embolism within the systemic veins, right-sided heart chambers, central pulmonary arteries and hepatic veins. 2. Posterior complete LEFT lower lobe, partially dependent RIGHT lower lobe and dependent LEFT upper lobe atelectasis. Given the distribution, this finding may be related to aspiration. Trace bilateral pleural effusions. Housekeeping Associate: ANEL Transcribe Date/Time: Apr 28 2021 3:35P Dictated by : MICHELLE PETERSEN MD This examination was interpreted and the report reviewed and electronically signed by: MICHELLE PETERSEN MD on Apr 28 2021 3:45PM EST [id number] Normal [facility] Comp Metabolic Panelon 04-28 Albumin [Mass/Vol] 3.0 g/dL Low 3.9-4.9 [facility] Comment on above: Performed By: #### P T, PTT, TRIG, CMP, CBC, MG1, PHOS ####[facility] [address] [place], [place] [phone] ALP [Catalytic activity/Vol] 36 U/L Normal 34-123 [facility] Comment on above: Performed By: #### P T, PTT, TRIG, CMP, CBC, MG1, PHOS ####[facility] [place], [place] [phone] ALT [Catalytic activity/Vol] 32 U/L Normal 7-38 [facility] Comment on above: Performed By: #### P T, PTT, TRIG, CMP, CBC, MG1, PHOS ####[place] [address] [address], [place] [phone] Anion gap [Moles/Vol] 10 mmol/L Normal 9-18 [facility] Comment on above: Performed By: #### P T, PTT, TRIG, CMP, CBC, MG1, PHOS ####[address] [phone] AST [Catalytic activity/Vol] 102 U/L High 13-35 [facility] Comment on above: Performed By: #### P T, PTT, TRIG, CMP, CBC, MG1, PHOS ####[address] [place], [place] [phone] Bilirubin [Mass/Vol] 0.3 mg/dL Normal 0.2-1.3 [facility] Comment on above: Performed By: #### P T, PTT, TRIG, CMP, CBC, MG1, PHOS ####[address] [phone] Calcium [Mass/Vol] 7.9 mg/dL Low 8.5-10.2 [facility] Comment on above: Performed By: #### P T, PTT, TRIG, CMP, CBC, MG1, PHOS ####[address] [phone] Chloride [Moles/Vol] 107 mmol/L High 97-105 [facility] Comment on above: Performed By: #### P T, PTT, TRIG, CMP, CBC, MG1, PHOS ####[place] [address] [address] [place], [place] [phone] CO2 [Moles/Vol] 25 mmol/L Normal 22-30 [facility] Comment on above: Performed By: #### P T, PTT, TRIG, CMP, CBC, MG1, PHOS ####[place] [address] [address] [place], [place] [phone] Creatinine [Mass/Vol] 0.85 mg/dL Normal 0.58-0.96 [facility] Comment on above: Performed By: #### P T, PTT, TRIG, CMP, CBC, MG1, PHOS ####[facility] [place] [address] [phone] eGFR- Amer. >60 Normal [facility] Comment on above: Performed By: #### P T, PTT, TRIG, CMP, CBC, MG1, PHOS ####[facility] [place] [address] [phone] eGFR-All Other Races >60 Normal [facility] Comment on above: Result Comment: eGFR (Estimated [...] TRIG, CMP, CBC, MG1, PHOS ####[facility] [place] [address] [phone] Glucose [Mass/Vol] 86 mg/dL Normal 74-99 [facility] Comment on above: Result Comment: The [place] [employer] (ADA) provides guidance for cutoff [...] Standards of Medical Care in Diabetes 2016, [place] [employer]. Diabetes Care. 2016.39(Suppl 1). Performed By: #### P T, PTT, TRIG, CMP, CBC, MG1, PHOS ####[address] [phone] Potassium [Moles/Vol] 3.8 mmol/L Normal 3.7-5.1 [facility] Comment on above: Performed By: #### P T, PTT, TRIG, CMP, CBC, MG1, PHOS ####[address] [phone] Protein [Mass/Vol] 5.2 g/dL Low 6.3-8.0 [facility] Comment on above: Performed By: #### P T, PTT, TRIG, CMP, CBC, MG1, PHOS ####[address] [phone] Sodium [Moles/Vol] 142 mmol/L Normal 136-144 [facility] Comment on above: Performed By: #### P T, PTT, TRIG, CMP, CBC, MG1, PHOS ####[address] [phone] Urea nitrogen [Mass/Vol] 15 mg/dL Normal 7-21 [facility] Comment on above: Performed By: #### P T, PTT, TRIG, CMP, CBC, MG1, PHOS ####[address] [phone] GASV + ALLon 04-28-2021 Base Excess 2 mmol/L Normal [facility] Comment on above: Performed By: #### V ALLBG ####[address] [phone] Blood Gas Comm, Ziyad . Normal [facility] Comment on above: Performed By: #### V ALLBG ####[address] [phone] Body temperature 98.6 [degF] Normal [facility] Comment on above: Performed By: #### V ALLBG ####[place] [address] [place], [place] [phone] Calcium [Moles/Vol] 1.18 mmol/L Normal 1.08-1.30 [facility] Comment on above: Performed By: #### V ALLBG ####[place] [address] [address] [place], [place] [phone] Carboxyhemoglobin, Ziyad 0.7 % Normal <2.1 [facility] Comment on above: Performed By: #### V ALLBG ####[address] [phone] CO2 [Moles/Vol] 30 mmol/L High 25-29 [facility] Comment on above: Performed By: #### V ALLBG ####[place] [address] [address] [place], [place] [phone] Glucose [Mass/Vol] 90 mg/dL Normal 60-105 [facility] Comment on above: Performed By: #### V ALLBG ####[place] [address] [address] [place], [place] [phone] HCO3 (Bld) [Moles/Vol] 29 mmol/L High 24-28 [facility] Comment on above: Performed By: #### V ALLBG ####[place] [address] [address] [place], [place] [phone] Hematocrit (Bld) [Volume fraction] 37.7 % Normal 36.0-46.0 [facility] Comment on above: Performed By: #### V ALLBG ####[place] [address] [address] [place], [place] [phone] Hemoglobin (Bld) [Mass/Vol] 12.3 g/dL Normal 11.5-15.5 [facility] Comment on above: Performed By: #### V ALLBG ####[facility] [place] [phone] Lactate [Moles/Vol] 0.9 mmol/L Normal 0.5-2.2 [facility] Comment on above: Performed By: #### V ALLBG ####[place] [address] [address] [place] [phone] Methemoglobin 1.5 % Normal <1.6 [facility] Comment on above: Performed By: #### V ALLBG ####[place] [address] [address] [place] [phone] O2 Administered 100% Normal [facility] Comment on above: Performed By: #### V ALLBG ####[place] [address] [address] [place] [phone] Oxyhemoglobin, Ziyad. 83 % Normal 60-85 [facility] Comment on above: Performed By: #### V ALLBG ####[place] [address] [address] [place] [phone] pCO2 57 mm Hg High 42-55 [facility] Comment on above: Performed By: #### V ALLBG ####[place] [address] [address] [phone] pCO2, Temp Correct 57 mm Hg High 42-55 [facility] Comment on above: Performed By: #### V ALLBG ####[place] [address] [address] [place] [phone] pH (Bld) 7.32 [pH] Normal 7.32-7.42 [facility] Comment on above: Performed By: #### V ALLBG ####[place] [id number] [place] [phone] pH, Temp Corrected 7.32 Normal 7.32-7.42 [facility] Comment on above: Performed By: #### V ALLBG ####[facility] [place], [place] [phone] pO2 54 mm Hg High 35-45 [facility] Comment on above: Performed By: #### V ALLBG ####[place] [address] [place], [place] [phone] pO2, Temp Corrected 54 mm Hg High 35-45 [facility] Comment on above: Performed By: #### V ALLBG ####[address] [phone] Potassium [Moles/Vol] 3.8 mmol/L Normal 3.5-5.0 [facility] Comment on above: Performed By: #### V ALLBG ####[address] [phone] Sodium [Moles/Vol] 142 mmol/L Normal 136-144 [facility] Comment on above: Performed By: #### V ALLBG ####[facility] [place] [address] [phone] Magnesiumon 04-28-2021 Magnesium [Mass/Vol] 2.0 mg/dL Normal 1.7-2.3 [facility] Comment on above: Performed By: #### P T, PTT, TRIG, CMP, CBC, MG1, PHOS ####[address] [phone] NURSING PROGon 04-28-2021 NURSING PROG HNO ID: [id number] Author: Laura Mullins RN Service: ? Author Type: Registered Nurse Type: Nursing Progress Note Filed: 04/28/2021 8:01 PM Note Text: Nursing Progress: Topic: RESTRAINT NON-VIOLENT PATIENT NAME: Oscar Pineda PATIENT LOCATION: [place] [address] The patient demonstrates Attempting to Remove Medical [...] 2021 TIME: 8:01 PM Laura Mullins RN [facility] NURSING PROG HNO ID: [id number] Author: Rob Guerra RN Service: Radiology Author [...] DATE: April 28, 2021 TIME: 2:08 PM [facility] NURSING PROG HNO ID: [id number] Author: Yumiko Molina RN Service: ? Author Type: Registered Nurse Type: Nursing Progress Note Filed: 04/28/2021 2:57 PM Note Text: Nursing Progress Note Patient Name: Oscar Pineda Patient Location: [place] [address] 1200 IR at bedside, advised transfer to CT table while still in trendelenburg trial patient supine, still in trendelenburg. Tolerating [address], notified of positioning requirements 1345 [employer] SOFTWARE ENGINEER, resident, two RT's, and two RN's at bedside for transport. Pt on telemetry/ continuous monitoring. CT and IR LIP notified. [address] imaging table, trendelenburg positioning maintained [address] and gave verbal OK to transition HOB flat then elevated (as tolerated) 1420 patient in SICU, HOB flat. Tolerating This note was completed by: Yumiko Molina Normal [facility] NURSING PROG HNO ID: [id number] Author: Yumiko Molina RN Service: ? Author Type: Registered Nurse Type: Nursing Progress Note Filed: 04/28/2021 1:22 PM Note Text: Nursing Progress: Topic: RESTRAINT NON-VIOLENT PATIENT NAME: Oscar Pineda PATIENT LOCATION: [place] [address] The patient demonstrates Attempting to Remove Medical Devices Vital to Medical Stability as evidenced by the following behaviors attempting to remove medical territory manager which pose an imminent danger to self [...] 2021 TIME: 8:00AM Yumiko Molina RN Normal [facility] Phosphoruson 04-28-2021 Phosphate [Mass/Vol] 2.3 mg/dL Low 2.7-4.8 [facility] Comment on above: Performed By: #### P T, PTT, TRIG, CMP, CBC, MG1, PHOS ####[facility] [address] [place], [place] [phone] Protimeon 04-28-2021 PT INR 1.0 Normal 0.9-1.3 [facility] Comment on above: Result Comment: Neha min K Antagonist (VKA) Therapeutic Range: INR 2 to 3 (Target INR of 2.5) Note: For patients treated with VKA drugs, such as warfarin, the [place] [employer] 2012 Guideline recommends [...] Chest 2012, 141:7S-47S Daphne RA et al. JACC 2017, 70: 252-289 Performed By: #### P T, PTT, TRIG, CMP, CBC, MG1, PHOS ####[place] [id number] [place], [place] [phone] PT Sec 11.0 sec Normal 9.7-13.0 [facility] Comment on above: Performed By: #### P T, PTT, TRIG, CMP, CBC, MG1, PHOS ####[facility] [place], [place] [phone] Respiratory Cult/Stainon Respiratory Cult/Stain Sp. Request/Comment: - Specimen received in sterile container. Smear Result - Rare Mixed oral kaylynn Many Polymorphonuclear leukocytes Rare Epithelial cells Culture Result - Few Staphylococcus aureus --> ABNORMAL ALERT Insignificant colony count. No further workup. --> ABNORMAL ALERT Few Normal respiratory kaylynn present Critically abnormal [facility] Comment on above: Performed By: #### R CULST ####[address] [phone] Triglycerideon 04-28-2021 Fasting Time Unknown Normal [facility] Comment on above: Performed By: #### P T, PTT, TRIG, CMP, CBC, MG1, PHOS ####[facility] [place], [place] [phone] Triglyceride [Mass/Vol] 155 mg/dL High <150 [facility] Comment on above: Result Comment: <150 mg/dL, Normal 150-199 mg/dL, Borderline high 200-499 mg/dL, High >499 mg/dL, Very high Reference: 1. National Cholesterol Education Program ATP III Guideline At-A-Glance Quick Desk Reference: National Heart, Lung, and Blood [place]. National Institutes of Health. 2001: NIH Publication No. 01-3305. Performed By: #### P T, PTT, TRIG, CMP, CBC, MG1, PHOS ####[address] [phone] Urinalysison 04-28-2021 Bilirubin, Urine Negative Normal Negative [facility] Comment on above: Performed By: #### U A ####[place] [address] [address] [place] [phone] Clarity (U) Clear Normal Clear [facility] Comment on above: Performed By: #### U A ####[place] [address] [address] [phone] Color (U) Light Yellow Critically abnormal Yellow [facility] Comment on above: Performed By: #### U A ####[place] [address] [address] [place] [phone] Comments SEE COMMENT Normal [facility] Comment on above: Result Comment: Micr oscopic not warranted Performed By: #### U A ####[place] [address] [address] [place] [phone] Glucose Ql (U) Negative Normal Negative [facility] Comment on above: Performed By: #### U A ####[place] [address] [address] [place] [phone] Hemoglobin/Blood,U r Negative Normal Negative [facility] Comment on above: Performed By: #### U A ####[place] [address] [address] [place] [phone] Ketones Ql (U) 1+ Critically abnormal Negative [facility] Comment on above: Performed By: #### U A ####[place] [address] [address] [place] [phone] Leukest Negative Normal Negative [facility] Comment on above: Performed By: #### U A ####[place] [address] [address] [place] [phone] Nitrite Ql (U) Negative Normal Negative [facility] Comment on above: Performed By: #### U A ####[place] [address] [address] [place] [phone] pH (U) 5.0 [pH] Normal 5.0-8.0 [facility] Comment on above: Performed By: #### U A ####[place] [address] [place], [place] [phone] Protein, Urine Negative Normal Negative [facility] Comment on above: Performed By: #### U A ####[address] [phone] Specific [place], Ur 1.023 Normal 1.005-1.030 [facility] Comment on above: Performed By: #### U A ####[place] [address] [address] [place], [place] [phone] Urine Karl Comment SEE COMMENT Normal [facility] Comment on above: Result Comment: N/A Performed By: #### U A ####[place] [address] [place], [place] [phone] Urobilinogen (U) [Mass/Vol] Negative Normal Negative [facility] Comment on above: Performed By: #### U A ####[place] [address] [place], [place] [phone] APTTon 04-27-2021 aPTT Coag (Bld) [Time] 21.9 s Low 23.0-32.4 [facility] Comment on above: Result Comment: Unfr actionated [...] laboratory APTT reagent in use throughout the [facility]. Performed By: #### P HOS, CMP, PTT, CBC, MG1, PT ####[place] [address] [address] [employer] [place], [place] [phone] CBCon 04-27-2021 Absolute nRBC <0.01 Normal <0.01 [facility] Comment on above: Performed By: #### P HOS, CMP, PTT, CBC, MG1, PT ####[place] [address] [address], [place] [phone] Erythrocyte distribution width (RBC) [Ratio] 11.9 % Normal 11.5-15.0 [facility] Comment on above: Performed By: #### P HOS, CMP, PTT, CBC, MG1, PT ####[place] [address] [address], [place] [phone] Hematocrit (Bld) [Volume fraction] 39.3 % Normal 36.0-46.0 [facility] Comment on above: Performed By: #### P HOS, CMP, PTT, CBC, MG1, PT ####[place] [address] [address] [place], [place] [phone] Hemoglobin (Bld) [Mass/Vol] 13.3 g/dL Normal 11.5-15.5 [facility] Comment on above: Performed By: #### P HOS, CMP, PTT, CBC, MG1, PT ####[place] [address] [place], [place] [phone] MCH 31.0 pG Normal 26.0-34.0 [facility] Comment on above: Performed By: #### P HOS, CMP, PTT, CBC, MG1, PT ####[address], [place] [phone] MCHC (RBC) [Mass/Vol] 33.8 g/dL Normal 30.5-36.0 [facility] Comment on above: Performed By: #### P HOS, CMP, PTT, CBC, MG1, PT ####[place] [address] [address], [place] [phone] MCV (RBC) [Entitic vol] 91.6 fL Normal 80.0-100.0 [facility] Comment on above: Performed By: #### P HOS, CMP, PTT, CBC, MG1, PT ####[place] [address] [address], [place] [phone] Platelet mean volume (Bld) [Entitic vol] 9.8 fL Normal 9.0-12.7 [facility] Comment on above: Performed By: #### P HOS, CMP, PTT, CBC, MG1, PT ####[place] [address] [address], [place] [phone] Platelets (Bld) [#/Vol] 242 10*3/uL Normal 150-400 [facility] Comment on above: Performed By: #### P HOS, CMP, PTT, CBC, MG1, PT ####[address] [place], [place] [phone] RBC (Bld) [#/Vol] 4.29 10*6/uL Normal 3.90-5.[address] [facility] Comment on above: Performed By: #### P HOS, CMP, PTT, CBC, MG1, PT ####[address] [phone] WBC (Bld) [#/Vol] 17.39 10*3/uL High 3.70-11.00 [facility] Comment on above: Performed By: #### P HOS, CMP, PTT, CBC, MG1, PT ####[place] [address] [address] [place], [place] [phone] Comp Metabolic Panelon 04-27 Albumin [Mass/Vol] 3.9 g/dL Normal 3.9-4.9 [facility] Comment on above: Performed By: #### P HOS, CMP, PTT, CBC, MG1, PT ####[address] [place], [place] [phone] ALP [Catalytic activity/Vol] 41 U/L Normal 34-123 [facility] Comment on above: Performed By: #### P HOS, CMP, PTT, CBC, MG1, PT ####[place] [address] [address], [place] [phone] ALT [Catalytic activity/Vol] 26 U/L Normal 7-38 [facility] Comment on above: Performed By: #### P HOS, CMP, PTT, CBC, MG1, PT ####[place] [address] [address], [place] [phone] Anion gap [Moles/Vol] 10 mmol/L Normal 9-18 [facility] Comment on above: Performed By: #### P HOS, CMP, PTT, CBC, MG1, PT ####[place] [address] [address] [place], [place] [phone] AST [Catalytic activity/Vol] 63 U/L High 13-35 [facility] Comment on above: Performed By: #### P HOS, CMP, PTT, CBC, MG1, PT ####[place] [address] [place], [place] [phone] Bilirubin [Mass/Vol] 0.5 mg/dL Normal 0.2-1.3 [facility] Comment on above: Performed By: #### P HOS, CMP, PTT, CBC, MG1, PT ####[address] [place], [place] [phone] Calcium [Mass/Vol] 8.6 mg/dL Normal 8.5-10.2 [facility] Comment on above: Performed By: #### P HOS, CMP, PTT, CBC, MG1, PT ####[place] [address] [address], [place] [phone] Chloride [Moles/Vol] 109 mmol/L High 97-105 [facility] Comment on above: Performed By: #### P HOS, CMP, PTT, CBC, MG1, PT ####[place] [address] [address], [place] [phone] CO2 [Moles/Vol] 23 mmol/L Normal 22-30 [facility] Comment on above: Performed By: #### P HOS, CMP, PTT, CBC, MG1, PT ####[facility], [place] [phone] Creatinine [Mass/Vol] 0.76 mg/dL Normal 0.58-0.96 [facility] Comment on above: Performed By: #### P HOS, CMP, PTT, CBC, MG1, PT ####[address] [phone] eGFR- Amer. >60 Normal [facility] Comment on above: Performed By: #### P HOS, CMP, PTT, CBC, MG1, PT ####[address] [phone] eGFR-All Other Races >60 Normal [facility] Comment on above: Result Comment: eGFR (Estimated [...] P HOS, CMP, PTT, CBC, MG1, PT ####[address] [phone] Glucose [Mass/Vol] 119 mg/dL High 74-99 [facility] Comment on above: Result Comment: The [place] [employer] (ADA) provides guidance for cutoff [...] Standards of Medical Care in Diabetes 2016, [place] [employer]. Diabetes Care. 2016.39(Suppl 1). Performed By: #### P HOS, CMP, PTT, CBC, MG1, PT ####[address] [phone] Potassium [Moles/Vol] 4.0 mmol/L Normal 3.7-5.1 [facility] Comment on above: Performed By: #### P HOS, CMP, PTT, CBC, MG1, PT ####[address] [phone] Protein [Mass/Vol] 5.9 g/dL Low 6.3-8.0 [facility] Comment on above: Performed By: #### P HOS, CMP, PTT, CBC, MG1, PT ####[address] [phone] Sodium [Moles/Vol] 142 mmol/L Normal 136-144 [facility] Comment on above: Performed By: #### P HOS, CMP, PTT, CBC, MG1, PT ####[address] [phone] Urea nitrogen [Mass/Vol] 13 mg/dL Normal 7-21 [facility] Comment on above: Performed By: #### P HOS, CMP, PTT, CBC, MG1, PT ####[address] [phone] GASV + ALLon 04-27-2021 Base Excess 1 mmol/L Normal [facility] Comment on above: Performed By: #### V ALLBG ####[address] [phone] Blood Gas Comm, Ziyad . Normal [facility] Comment on above: Performed By: #### V ALLBG ####[place] [address] [address] [place], [place] [phone] Body temperature 98.6 [degF] Normal [facility] Comment on above: Performed By: #### V ALLBG ####[place] [address] [address] [place], [place] [phone] Calcium [Moles/Vol] 1.21 mmol/L Normal 1.08-1.30 [facility] Comment on above: Performed By: #### V ALLBG ####[place] [phone] Carboxyhemoglobin, Ziyad 0.7 % Normal <2.1 [facility] Comment on above: Performed By: #### V ALLBG ####[place] [address] [address] [place] [phone] CO2 [Moles/Vol] 29 mmol/L Normal 25-29 [facility] Comment on above: Performed By: #### V ALLBG ####[place] [address] [address], [place] [phone] Glucose [Mass/Vol] 97 mg/dL Normal 60-105 [facility] Comment on above: Performed By: #### V ALLBG ####[place] [address] [address], [place] [phone] HCO3 (Bld) [Moles/Vol] 27 mmol/L Normal 24-28 [facility] Comment on above: Performed By: #### V ALLBG ####[place] [address] [address], [place] [phone] Hematocrit (Bld) [Volume fraction] 38.2 % Normal 36.0-46.0 [facility] Comment on above: Performed By: #### V ALLBG ####[place] [address] [address], [place] [phone] Hemoglobin (Bld) [Mass/Vol] 12.4 g/dL Normal 11.5-15.5 [facility] Comment on above: Performed By: #### V ALLBG ####[place] [address] [address] [place] [phone] Lactate [Moles/Vol] 1.1 mmol/L Normal 0.5-2.2 [facility] Comment on above: Performed By: #### V ALLBG ####[place] [address] [address] [place] [phone] Methemoglobin 0.7 % Normal <1.6 [facility] Comment on above: Performed By: #### V ALLBG ####[place] [address] [address] [place] [phone] O2 Administered 100% Normal [facility] Comment on above: Performed By: #### V ALLBG ####[place] [address] [address] [place] [phone] Oxyhemoglobin, Ziyad. 92 % High 60-85 [facility] Comment on above: Performed By: #### V ALLBG ####[place] [address] [address] [place] [phone] pCO2 53 mm Hg Normal 42-55 [facility] [facility] Comment on above: Performed By: #### V ALLBG ####[place] [address] [address] [place] [phone] pCO2, Temp Correct 53 mm Hg Normal 42-55 [facility] Comment on above: Performed By: #### V ALLBG ####[place] [address] [address] [place] [phone] pH (Bld) 7.33 [pH] Normal 7.32-7.42 [facility] Comment on above: Performed By: #### V ALLBG ####[place] [address] [address] [place] [phone] pH, Temp Corrected 7.33 Normal 7.32-7.42 [facility] Comment on above: Performed By: #### V ALLBG ####[place] [address], [place] [phone] pO2 70 mm Hg High 35-45 [facility] Comment on above: Performed By: #### V ALLBG ####[place] [address] [address] [place] [phone] pO2, Temp Corrected 70 mm Hg High 35-45 [facility] Comment on above: Performed By: #### V ALLBG ####[place] [address] [address], [place] [phone] Potassium [Moles/Vol] 3.9 mmol/L Normal 3.5-5.0 [facility] Comment on above: Performed By: #### V ALLBG ####[place] [address] [address] [place] [phone] Sodium [Moles/Vol] 143 mmol/L Normal 136-144 [facility] Comment on above: Performed By: #### V ALLBG ####[place] [address] [address] [place] [phone] Base Excess 0 mmol/L Normal [facility] Comment on above: Performed By: #### V ALLBG ####[place] [address] [address], [place] [phone] Blood Gas Comm, Ziyad . Normal [facility] Comment on above: Performed By: #### V ALLBG ####[place] [address] [address], [place] [phone] Body temperature 98.6 [degF] Normal [facility] Comment on above: Performed By: #### V ALLBG ####[place] [address] [address], [place] [phone] Calcium [Moles/Vol] 1.22 mmol/L Normal 1.08-1.30 [facility] Comment on above: Performed By: #### V ALLBG ####[place] [address] [address], [place] [phone] Carboxyhemoglobin, Ziyad 0.6 % Normal <2.1 [facility] Comment on above: Performed By: #### V ALLBG ####[place] [address] [address], [place] [phone] CO2 [Moles/Vol] 27 mmol/L Normal 25-29 [facility] Comment on above: Performed By: #### V ALLBG ####[place] [address] [address], [place] [phone] Glucose [Mass/Vol] 130 mg/dL High 60-105 [facility] Comment on above: Performed By: #### V ALLBG ####[place] [address] [address], [place] [phone] HCO3 (Bld) [Moles/Vol] 26 mmol/L Normal 24-28 [facility] Comment on above: Performed By: #### V ALLBG ####[place] [address] [address] [place], [place] [phone] Hematocrit (Bld) [Volume fraction] 42.7 % Normal 36.0-46.0 [facility] Comment on above: Performed By: #### V ALLBG ####[place] [address] [address], [place] [phone] Hemoglobin (Bld) [Mass/Vol] 13.9 g/dL Normal 11.5-15.5 [facility] Comment on above: Performed By: #### V ALLBG ####[place] [address] [address] [place], [place] [phone] Lactate [Moles/Vol] 1.3 mmol/L Normal 0.5-2.2 [facility] Comment on above: Performed By: #### V ALLBG ####[place] [address] [address], [place] [phone] Methemoglobin 1.1 % Normal <1.6 [facility] Comment on above: Performed By: #### V ALLBG ####[place] [address] [address], [place] [phone] O2 Administered 100% Normal [facility] Comment on above: Performed By: #### V ALLBG ####[place] [address] [address] [place] [phone] Oxyhemoglobin, Ziyad. 88 % High 60-85 [facility] Comment on above: Performed By: #### V ALLBG ####[place] [address] [address] [place] [phone] pCO2 49 mm Hg Normal 42-55 [facility] Comment on above: Performed By: #### V ALLBG ####[place] [address] [address] [place] [phone] pCO2, Temp Correct 49 mm Hg Normal 42-55 [facility] Comment on above: Performed By: #### V ALLBG ####[place] [address] [address], [place] [phone] pH (Bld) 7.34 [pH] Normal 7.32-7.42 [facility] Comment on above: Performed By: #### V ALLBG ####[place] [address] [address], [place] [phone] pH, Temp Corrected 7.34 Normal 7.32-7.42 [facility] Comment on above: Performed By: #### V ALLBG ####[place] [address] [address], [place] [phone] pO2 64 mm Hg High 35-45 [facility] Comment on above: Performed By: #### V ALLBG ####[place] [address] [address], [place] [phone] pO2, Temp Corrected 64 mm Hg High 35-45 [facility] Comment on above: Performed By: #### V ALLBG ####[place] [address] [place], [place] [phone] Potassium [Moles/Vol] 4.1 mmol/L Normal 3.5-5.0 [facility] Comment on above: Performed By: #### V ALLBG ####[address] [phone] Sodium [Moles/Vol] 142 mmol/L Normal 136-144 [facility] Comment on above: Performed By: #### V ALLBG ####[address] [phone] Magnesiumon 04-27-2021 Magnesium [Mass/Vol] 2.2 mg/dL Normal 1.7-2.3 [facility] Comment on above: Performed By: #### P HOS, CMP, PTT, CBC, MG1, PT ####[address] [phone] NURSING PROGon 04-27-2021 NURSING PROG HNO ID: [id number] Author: Jack Richards RN Service: Nursing Author Type: Registered Nurse Type: Nursing Progress Note Filed: 04/27/2021 10:46 PM Note Text: Nursing Progress: Topic: RESTRAINT NON-VIOLENT PATIENT NAME: Oscar Pineda PATIENT LOCATION: [place] [address]/[place] [address] The patient demonstrates Lack of Understanding/Ability to [...] TIME: 10:00 PM Jack Richards RN Normal [facility] NURSING PROG HNO ID: [id number] Author: Karsten Goldsmith RN Service: Nursing Author Type: Registered Nurse Type: Nursing Progress Note Filed: 04/27/2021 8:51 AM Note Text: Nursing Progress: Topic: RESTRAINT NON-VIOLENT PATIENT NAME: Oscar Pineda PATIENT LOCATION: [place] [address] The patient demonstrates Lack of Understanding/Ability to [...] TIME: 8:51 AM Karsten Goldsmith RN Normal [facility] Phosphoruson 04-27-2021 Phosphate [Mass/Vol] 3.3 mg/dL Normal 2.7-4.8 [facility] Comment on above: Performed By: #### P HOS, CMP, PTT, CBC, MG1, PT ####[facility] [address] [place], [place] [phone] Protimeon 04-27-2021 PT INR 1.1 Normal 0.9-1.3 [facility] Comment on above: Result Comment: Neha min K Antagonist (VKA) Therapeutic Range: INR 2 to 3 (Target INR of 2.5) Note: For patients treated with VKA drugs, such as warfarin, the [place] [employer] 2012 Guideline recommends [...] Chest 2012, 141:7S-47S Daphne RA, et al. [facility] 2017, 70: 252-289 Performed By: #### P HOS, CMP, PTT, CBC, MG1, PT ####[facility] [place] [place], [place] [phone] PT Sec 11.2 sec Normal 9.7-13.0 [facility] Comment on above: Performed By: #### P HOS, CMP, PTT, CBC, MG1, PT ####[facility] [place] [place], [place] [phone] US ABDOMEN LTDon 04-27-2021 US ABDOMEN LTD * * *Final Report* * * DATE OF EXAM: Apr 27 2021 12:24PM [facility] [place] - [place] ABDOMEN [...] within the hepatic veins or visualized IVC. Housekeeping Associate: ANEL Transcribe Date/Time: Apr 27 2021 12:34P Dictated by : POONAM BLUM MD This examination was interpreted and the report reviewed and electronically signed by: ALICIA MENDOZA MD on Apr 27 2021 2:57PM EST [id number] Normal [facility] XR CHEST 1V FRONTALon 2020 XR CHEST [...] cardiomediastinal silhouette. Other: . IMPRESSION: See result. Housekeeping Associate: PSCKb Transcribe Date/Time: Apr 27 2021 10:29A Dictated by : TAYLOR CORONA MD This examination was interpreted and the report reviewed and electronically signed by: TAYLOR CORONA MD on Apr 27 2021 10:31AM EST [id number] Normal [facility] ANES Sachin 04-26-2021 ANES POST HNO ID: [id number] Author: Tamara Brown DO Service: Anesthesiology Author [...] 26, 2021 TIME: 2:26 PM PAGER/CONTACT #: [phone] Normal [facility] APTTon 04-26-2021 aPTT Coag (Bld) [Time] 22.2 s Low 23.0-32.4 [facility] Comment on above: Result Comment: Unfr actionated [...] laboratory APTT reagent in use throughout the [facility]. Performed By: #### C BC, MG1, PT, PTT, BMP, PHOS ####[facility] [place] [place], [place] [phone] BRIEF OP NOTon 04-26-2021 BRIEF OP NOT HNO ID: [id number] Author: Kayce Wagner MD Service: Radiology Author Type: Physician Type: Brief Op Note Filed: 04/26/2021 3:28 PM Note Text: BRIEF OPERATIVE / PROCEDURE NOTE LOG ID: [id number] SURGERY/PROCEDURE DATE: 04/26/2021 INCISION/PROCEDURE START TIME: 9:25 AM INCISION CLOSE/PROCEDURE END TIME: 11:20 AM SURGEON(S)/PROCEDURALIS T(S) AND TECHNICIAN ASSISTANT(S): Surgeon(s) and Role: * Kayce Wagner MD [...] DATE: April 26, 2021 TIME: 2:59 PM [phone] Normal [facility] Basic Metabolic Panlon 04-26 Anion gap [Moles/Vol] 11 mmol/L Normal 9-18 [facility] Comment on above: Performed By: #### C BC, MG1, PT, PTT, BMP, PHOS ####[facility] [place] [place], [place] [phone] Calcium [Mass/Vol] 8.3 mg/dL Low 8.5-10.2 [facility] Comment on above: Performed By: #### C BC, MG1, PT, PTT, BMP, PHOS ####[place] [address] [address] [place] [phone] Chloride [Moles/Vol] 107 mmol/L High 97-105 [facility] Comment on above: Performed By: #### C BC, MG1, PT, PTT, BMP, PHOS ####[place] [address] [address] [place] [phone] CO2 [Moles/Vol] 22 mmol/L Normal 22-30 [facility] Comment on above: Performed By: #### C BC, MG1, PT, PTT, BMP, PHOS ####[place] [phone] Creatinine [Mass/Vol] 0.74 mg/dL Normal 0.58-0.96 [facility] Comment on above: Performed By: #### C BC, MG1, PT, PTT, BMP, PHOS ####[place] [address] [address] [place] [phone] eGFR- Amer. >60 Normal [facility] Comment on above: Performed By: #### C BC, MG1, PT, PTT, BMP, PHOS ####[address] [place] [phone] eGFR-All Other Races >60 Normal [facility] Comment on above: Result Comment: eGFR (Estimated [...] C BC, MG1, PT, PTT, BMP, PHOS ####[place] [address] [place], [place] [phone] Glucose [Mass/Vol] 178 mg/dL High 74-99 [facility] Comment on above: Result Comment: The [place] [employer] (ADA) provides guidance for cutoff [...] Standards of Medical Care in Diabetes 2016, [place] [employer]. Diabetes Care. 2016.39(Suppl 1). Performed By: #### C BC, MG1, PT, PTT, BMP, PHOS ####[address] [phone] Potassium [Moles/Vol] 4.1 mmol/L Normal 3.7-5.1 [facility] Comment on above: Performed By: #### C BC, MG1, PT, PTT, BMP, PHOS ####[address] [phone] Sodium [Moles/Vol] 140 mmol/L Normal 136-144 [facility] Comment on above: Performed By: #### C BC, MG1, PT, PTT, BMP, PHOS ####[address] [phone] Urea nitrogen [Mass/Vol] 14 mg/dL Normal 7-21 [facility] Comment on above: Performed By: #### C BC, MG1, PT, PTT, BMP, PHOS ####[address] [phone] CBCon 04-26-2021 Absolute nRBC <0.01 Normal <0.01 [facility] Comment on above: Performed By: #### C BC, MG1, PT, PTT, BMP, PHOS ####[place] [address] [address] [place] [phone] Erythrocyte distribution width (RBC) [Ratio] 11.9 % Normal 11.5-15.0 [facility] Comment on above: Performed By: #### C BC, MG1, PT, PTT, BMP, PHOS ####[place] [address] [address] [place] [phone] Hematocrit (Bld) [Volume fraction] 38.5 % Normal 36.0-46.0 [facility] Comment on above: Performed By: #### C BC, MG1, PT, PTT, BMP, PHOS ####[place] [address] [address] [place] [phone] Hemoglobin (Bld) [Mass/Vol] 13.2 g/dL Normal 11.5-15.5 [facility] Comment on above: Performed By: #### C BC, MG1, PT, PTT, BMP, PHOS ####[place] [address] [address] [place] [phone] MCH 31.7 pG Normal 26.0-34.0 [facility] Comment on above: Performed By: #### C BC, MG1, PT, PTT, BMP, PHOS ####[place] [address] [address] [place] [phone] MCHC (RBC) [Mass/Vol] 34.3 g/dL Normal 30.5-36.0 [facility] Comment on above: Performed By: #### C BC, MG1, PT, PTT, BMP, PHOS ####[place] [address] [address] [place] [phone] MCV (RBC) [Entitic vol] 92.3 fL Normal 80.0-100.0 [facility] Comment on above: Performed By: #### C BC, MG1, PT, PTT, BMP, PHOS ####[facility] [place], [place] [phone] Platelet mean volume (Bld) [Entitic vol] 9.6 fL Normal 9.0-12.7 [facility] Comment on above: Performed By: #### C BC, MG1, PT, PTT, BMP, PHOS ####[address], [place] [phone] Platelets (Bld) [#/Vol] 227 10*3/uL Normal 150-400 [facility] Comment on above: Performed By: #### C BC, MG1, PT, PTT, BMP, PHOS ####[place] [address], [place] [phone] RBC (Bld) [#/Vol] 4.17 10*6/uL Normal 3.90-5.[address] [facility] Comment on above: Performed By: #### C BC, MG1, PT, PTT, BMP, PHOS ####[address], [place] [phone] WBC (Bld) [#/Vol] 17.98 10*3/uL High 3.70-11.00 [facility] Comment on above: Performed By: #### C BC, MG1, PT, PTT, BMP, PHOS ####[address] [phone] CONSULTon 04-26-2021 CONSULT HNO ID: [id number] Author: Jose M Cedillo MD Service: Interventional [...] Oscar BRITTON (more content not included)... Normal [facility] CONSULT HNO ID: [id number] Author: Oneida Ruano MD Service: Cardiovascular Medicine Author Type: Physician Type: Consults Filed: 04/27/2021 2:36 PM Note Text: [facility] CONSULT NOTE Oscar Pineda [id number] CONSULTING SERVICE: SICU DATE OF ADMISSION: 04/26/2021 [...] Problems: # (more content not included)... Normal [facility] CT ABLATION MSK NOT BONE ALDO ORon 04-26-2021 CT ABLATION MSK NOT BONE TUMOR * * *Final Report* * * * * * SEE BOTTOM OF REPORT FOR ADDENDED TEXT * * * DATE OF EXAM: Apr 26 2021 11:24AM [facility] 2066 - CT ABLATION MSK NOT BONE TUMOR / PROCEDURE REASON: R19.43-Oyusi-mgqnratrl and pelvic swelling, mass and lump, unspecified [...] for fur (more content not included)... Normal [facility] CT BRAIN WO IVCONon 04-26-20 CT BRAIN WO IVCON * * *Final Report* * * DATE OF EXAM: Apr 26 2021 1:45PM [facility] 0504 - CT BRAIN WO [...] reduction techniques were required COMPARISON: None. RESULT: Microwave Supervisor (topogram) images: Endotracheal tube. Post-operative change: None. [...] Portable head CT demonstrating no acute findings. Housekeeping Associate: PSCB Transcribe Date/Time: Apr 26 2021 1:56P Dictated by : MARIA L SCHMIDT MD This examination was interpreted and the report reviewed and electronically signed by: MARIA L SCHMIDT MD on Apr 26 2021 1:58PM EST [id number] Normal [facility] Confirm Blood Typeon 021 ABO/RH(D) Positive Normal [facility] Comment on above: Performed By: #### C ONABO ####[address] [phone] Performed By: #### T SCR ####[address] [phone] Expedited [id number] 04-26-20 21 SARS-CoV-2 (COVID-19) RNA ROX+probe Ql (Unsp spec) UPPER RESPIRATORY TRACT SWAB Normal [facility] Comment on above: Performed By: #### E XCOVD ####[address] [phone] SARS-CoV-2 (COVID-19) RNA ROX+probe Ql (Unsp spec) Negative for COVID19 (SARS CoV2) by RT-PCR or equivalent method. Normal Negative for COVID19 (SARS CoV2) by RT-PCR or equivalent method. [facility] Comment on above: Result Comment: This test has been authorized by FDA under an Emergency Use Authorization (EUA). Test performed by [facility], [facility] [place], [address] [place], [place] [address]. Performed By: #### E XCOVD ####[address] [phone] GASV + ALLon 04-26-2021 Base Excess Negative Normal [facility] Comment on above: Performed By: #### V ALLBG ####[address] [phone] Blood Gas Comm, Ziyad .VENOUS Normal [facility] Comment on above: Performed By: #### V ALLBG ####[address] [phone] Body temperature 98.6 [degF] Normal [facility] Comment on above: Performed By: #### V ALLBG ####[address] [phone] Calcium [Moles/Vol] 1.23 mmol/L Normal 1.08-1.30 [facility] Comment on above: Performed By: #### V ALLBG ####[address] [phone] Carboxyhemoglobin, Ziyad 0.9 % Normal <2.1 [facility] Comment on above: Performed By: #### V ALLBG ####[address] [phone] CO2 [Moles/Vol] 27 mmol/L Normal 25-29 [facility] Comment on above: Performed By: #### V ALLBG ####[address] [phone] Glucose [Mass/Vol] 144 mg/dL High 60-105 [facility] Comment on above: Performed By: #### V ALLBG ####[address] [phone] HCO3 (Bld) [Moles/Vol] 25 mmol/L Normal 24-28 [facility] Comment on above: Performed By: #### V ALLBG ####[place] [address] [address], [place] [phone] Hematocrit (Bld) [Volume fraction] 43.2 % Normal 36.0-46.0 [facility] Comment on above: Performed By: #### V ALLBG ####[place] [address] [address] [place] [phone] Hemoglobin (Bld) [Mass/Vol] 14.1 g/dL Normal 11.5-15.5 [facility] Comment on above: Performed By: #### V ALLBG ####[place] [address] [address], [place] [phone] Lactate [Moles/Vol] 2.0 mmol/L Normal 0.5-2.2 [facility] Comment on above: Performed By: #### V ALLBG ####[place] [address] [address] [place] [phone] Methemoglobin 0.7 % Normal <1.6 [facility] Comment on above: Performed By: #### V ALLBG ####[place] [address] [address] [place] [phone] O2 Administered 100% Normal [facility] Comment on above: Performed By: #### V ALLBG ####[place] [address] [address], [place] [phone] Oxyhemoglobin, Ziyad. 81 % Normal 60-85 [facility] Comment on above: Performed By: #### V ALLBG ####[place] [address] [address], [place] [phone] pCO2 53 mm Hg Normal 42-55 [facility] Comment on above: Performed By: #### V ALLBG ####[place] [address] [address], [place] [phone] pCO2, Temp Correct 53 mm Hg Normal 42-55 [facility] Comment on above: Performed By: #### V ALLBG ####[place] [address] [address], [place] [phone] pH (Bld) 7.30 [pH] Low 7.32-7.42 [facility] Comment on above: Performed By: #### V ALLBG ####[place] [address] [address] [place] [phone] pH, Temp Corrected 7.30 Low 7.32-7.42 [facility] Comment on above: Performed By: #### V ALLBG ####[place] [address] [address] [place] [phone] pO2 52 mm Hg High 35-45 [facility] Comment on above: Performed By: #### V ALLBG ####[place] [phone] pO2, Temp Corrected 52 mm Hg High 35-45 [facility] Comment on above: Performed By: #### V ALLBG ####[place] [phone] Potassium [Moles/Vol] 4.4 mmol/L Normal 3.5-5.0 [facility] Comment on above: Performed By: #### V ALLBG ####[place] [address] [address] [place] [phone] Sodium [Moles/Vol] 142 mmol/L Normal 136-144 [facility] Comment on above: Performed By: #### V ALLBG ####[place] [phone] Base Excess Negative Normal [facility] Comment on above: Performed By: #### V ALLBG ####[place] [address] [address] [place] [phone] Blood Gas Comm, Ziyad .VENOUS Normal [facility] Comment on above: Performed By: #### V ALLBG ####[place] [address], [place] [phone] Body temperature 98.6 [degF] Normal [facility] Comment on above: Performed By: #### V ALLBG ####[place] [address], [place] [phone] Calcium [Moles/Vol] 1.25 mmol/L Normal 1.08-1.30 [facility] Comment on above: Performed By: #### V ALLBG ####[address] [phone] Carboxyhemoglobin, Ziyad 0.5 % Normal <2.1 [facility] Comment on above: Performed By: #### V ALLBG ####[place] [address] [address], [place] [phone] CO2 [Moles/Vol] 25 mmol/L Normal 25-29 [facility] Comment on above: Performed By: #### V ALLBG ####[address] [phone] Glucose [Mass/Vol] 172 mg/dL High 60-105 [facility] Comment on above: Performed By: #### V ALLBG ####[place] [address] [address], [place] [phone] HCO3 (Bld) [Moles/Vol] 24 mmol/L Normal 24-28 [facility] Comment on above: Performed By: #### V ALLBG ####[place] [address], [place] [phone] Hematocrit (Bld) [Volume fraction] 44.2 % Normal 36.0-46.0 [facility] Comment on above: Performed By: #### V ALLBG ####[place] [address] [address] [place] [phone] Hemoglobin (Bld) [Mass/Vol] 14.4 g/dL Normal 11.5-15.5 [facility] Comment on above: Performed By: #### V ALLBG ####[place] [address] [address] [place] [phone] Lactate [Moles/Vol] 2.4 mmol/L High 0.5-2.2 [facility] Comment on above: Performed By: #### V ALLBG ####[place] [address] [address] [place] [phone] Methemoglobin 1.2 % Normal <1.6 [facility] Comment on above: Performed By: #### V ALLBG ####[place] [phone] O2 Administered 100% Normal [facility] Comment on above: Performed By: #### V ALLBG ####[place] [address] [address] [place] [phone] Oxyhemoglobin, Ziyad. 98 % High 60-85 [facility] Comment on above: Performed By: #### V ALLBG ####[place] [address] [address] [place] [phone] pCO2 46 mm Hg Normal 42-55 [facility] Comment on above: Performed By: #### V ALLBG ####[place] [address] [address] [place] [phone] pCO2, Temp Correct 46 mm Hg Normal 42-55 [facility] Comment on above: Performed By: #### V ALLBG ####[place] [address] [address], [place] [phone] pH (Bld) 7.33 [pH] Normal 7.32-7.42 [facility] Comment on above: Performed By: #### V ALLBG ####[place] [address] [address] [place] [phone] pH, Temp Corrected 7.33 Normal 7.32-7.42 [facility] Comment on above: Performed By: #### V ALLBG ####[place] [id number] [place], [place] [phone] pO2 246 mm Hg High 35-45 [facility] Comment on above: Performed By: #### V ALLBG ####[place] [id number] [place], [place] [phone] pO2, Temp Corrected 246 mm Hg High 35-45 [facility] Comment on above: Performed By: #### V ALLBG ####[place] [id number] [place], [place] [phone] Potassium [Moles/Vol] 4.4 mmol/L Normal 3.5-5.0 [facility] Comment on above: Performed By: #### V ALLBG ####[address] [phone] Sodium [Moles/Vol] 143 mmol/L Normal 136-144 [facility] Comment on above: Performed By: #### V ALLBG ####[place] [address] [place], [place] [phone] HISTORY PHYSICALon HISTORY PHYSICAL HNO ID: [id number] Author: Kayce Wagner MD Service: Radiology Author [...] April 26, 2021 TIME: 8:54 PM Normal [facility] Magnesiumon 04-26-2021 Magnesium [Mass/Vol] 1.9 mg/dL Normal 1.7-2.3 [facility] Comment on above: Performed By: #### C BC, MG1, PT, PTT, BMP, PHOS ####[facility] [address] [place], [place] [phone] NURSING PROGon 04-26-2021 NURSING PROG HNO ID: [id number] Author: Jack Richards RN Service: Nursing Author Type: Registered Nurse Type: Nursing Progress Note Filed: 04/26/2021 9:21 PM Note Text: Nursing Progress: Topic: RESTRAINT NON-VIOLENT PATIENT NAME: Oscar Pineda PATIENT LOCATION: [place] [address]/[place] [address] The patient demonstrates Lack of Understanding/Ability to [...] TIME: 8:00 PM Jack Richards RN Normal [facility] NURSING PROG HNO ID: [id number] Author: Karsten Goldsmith RN Service: Nursing Author Type: Registered Nurse Type: Nursing Progress Note Filed: 04/26/2021 6:59 PM Note Text: Nursing Progress: Topic: RESTRAINT NON-VIOLENT PATIENT NAME: Oscar Pineda [place] [facility]G[facility]-09 The patient demonstrates Lack of Understanding/Ability to [...] TIME: 6:58 PM Karsten Goldsmith RN Normal [facility] PT EDon 04-26-2021 PT ED HNO ID: [id number] Author: Agnes Schaefer RN Service: Interventional Radiology [...] SUPPLEMENTAL MATERIAL: None REFERRAL (RECOMMENDATION): None Normal [facility] Phosphoruson 04-26-2021 Phosphate [Mass/Vol] 3.1 mg/dL Normal 2.7-4.8 [facility] Comment on above: Performed By: #### C BC, MG1, PT, PTT, BMP, PHOS ####[facility] [place], [place] [phone] Protimeon 04-26-2021 PT INR 1.1 Normal 0.9-1.3 [facility] Comment on above: Result Comment: Neha min K Antagonist (VKA) Therapeutic Range: INR 2 to 3 (Target INR of 2.5) Note: For patients treated with VKA drugs, such as warfarin, the [employer] 2012 Guideline recommends [...] PRIETO, et al. Chest 2012, 141:7S-47S Daphne PEDERSON, et al. [facility] 2017, 70: 252-289 Performed By: #### C BC, MG1, PT, PTT, BMP, PHOS ####[facility], [place] [phone] PT Sec 11.9 sec Normal 9.7-13.0 [facility] Comment on above: Performed By: #### C BC, MG1, PT, PTT, BMP, PHOS ####[facility] [address] [place], [place] [phone] Staph aureus PCRon 1 MRSA PCR Negative Normal [facility] Comment on above: Performed By: #### S APCR ####[facility], [place] [phone] S aureus Spec Source Nasal Normal [facility] Comment on above: Performed By: #### S APCR ####[facility] [place], [place] [phone] Staph aureus PCR Negative Normal [facility] Comment on above: Performed By: #### S APCR ####[address] [place] [phone] XR ABDOMEN 1V SUPINEon 04-26 XR ABDOMEN [...] loops of bowel. No focal bony abnormality. Housekeeping Associate: ANEL Transcribe Date/Time: Apr 26 2021 2:53P Dictated by : RAMIN BROWNLEE MD This examination was interpreted and the report reviewed and electronically signed by: RAMIN BROWNLEE MD on Apr 26 2021 3:05PM EST [id number] Normal [facility] XR CHEST 1V FRONTAL PORTon 1 XR [...] No acute process identified. IMPRESSION: See result. Housekeeping Associate: PSCB Transcribe Date/Time: Apr 26 2021 6:05P Dictated by : JASON LOWE MD This examination was interpreted and the report reviewed and electronically signed by: JASON LOWE MD on Apr 26 2021 6:07PM EST [id number] Normal [facility] XR CHEST 1V FRONTAL PORT * * [...] No acute process identified. IMPRESSION: See result. Housekeeping Associate: PSCB Transcribe Date/Time: Apr 26 2021 3:57P Dictated by : JASON LOWE MD This examination was interpreted and the report reviewed and electronically signed by: JASON LOWE MD on Apr 26 2021 3:58PM EST [id number] Normal [facility] NURSING PROGon 04-24-2021 NURSING PROG HNO ID: [id number] Author: Shereen Kwok LPN Service: ? Author Type: LICENSED NURSE Type: Nursing Progress Note Filed: 04/24/2021 2:42 PM Note Text: Pre-procedure instructions: Contacted patient and confirmed appt. for Cryoablation scheduled on 04/26/21, at [facility]. Diet: Do not eat solid [...] signed. Arrival at 6:30am to desk QB[facility] ([facility]) and check in for your procedure. Real Property Evaluator/Transportation: How will you be arriving for your procedure? Private car. If you will be arriving at [facility] via ambulance or public transportation, please call to discuss. You will need a responsible adult to accompany you to and from the procedure. Your lease purchase truck driver is required to stay with you until you are taken into the Procedure room. [facility] is currently restricting visitors to two visitors per patient. No visitor under the age of 16. You and your visitor will be screened for temperature and COVID-19 symptoms upon entry to the hospital, and a wristband will be applied when cleared. If you develop any of the following symptoms before your procedure, please call [phone]. Chills, joint pain, rash, sore throat, cough, [...] No Written instructions provided to patient via [employer] If you have any questions please call [phone] Normal [facility] MRI ABDOMEN WO/W IVCONon [facility] Vital Signs Date Time Vital Sign Value Performing Clinician Facility 10-10-2022 10:00-0400 Body height 161.29 cm Shaun Valentine Other [facility] Other 10-10-2022 10:00-0400 Body mass index (BMI) [Ratio] 23.08 kg/m2 Shaun Ball Other [facility] Other 10-10-2022 10:00-0400 Body weight 60.06 kg Shaun Ball Other [facility] Other 10-10-2022 10:00-0400 Diastolic blood pressure 76 mm[Hg] Shaun Ball Other [facility] Other 10-10-2022 10:00-0400 Respiratory rate 12 /min Shaun Ball Other [facility] Other 10-10-2022 10:00-0400 Systolic blood pressure 110 mm[Hg] Shaun Ball Other [facility] Other 04-28-2022 15:46-0400 Body temperature 99.5 [degF] Melani Russell MD Work Phone: [facility] 04-28-2022 15:46-0400 Body weight 76.39 kg Melani Russell MD Work Phone: [facility] 04-28-2022 15:46-0400 Diastolic blood pressure 76 mm[Hg] Melani Russell MD Work Phone: [facility] 04-28-2022 15:46-0400 Heart rate 71 /min Melani Russell MD Work Phone: [facility] 04-28-2022 15:46-0400 Respiratory rate 20 /min Melani Russell MD Work Phone: [facility] 04-28-2022 15:46-0400 SaO2% (BldA) [Mass fraction] 97 % Melani Russell MD Work Phone: [facility] 04-28-2022 15:46-0400 Systolic blood pressure 131 mm[Hg] Melani Russell MD Work Phone: [facility] Encounters Encounter Date Encounter Type Care Provider Facility Start: 09-28-2023 End: 09-28-2023 ambulatory SUKHJINDER AUDELIA Not Available Start: 09-21-2023 End: 09-21-2023 ambulatory SUKHJINDER AUDELIA [...] examination without abnormal findings DR SHAUN VALENTINE [facility] Start: 10-27-2022 Telephone encounter Shaun Valentine [facility] Start: 10-27-2022 End: 10-28-[address] SHAUN VALENTINE [facility] Other Start: 10-27-2022 End: 10-28-2022 Encounter for general adult medical examination without abnormal findings DR SHAUN VALENTINE Facility: Start: 10-10-2022 End: 10-10-2022 ambulatory Shaun Valentine Other [facility] [employer] Other Start: 10-10-2022 Encounter for genera l adult medical examination without abnormal findings Shaun Valentine [facility] Start: 10-10-2022 Periodic preventive med est patient 18-39 yrs Shaun Valentine [facility] Start: 04-28-2022 End: 04-29-2022 ambulatory Melani Russell MD Work Phone: Hematology/Oncology Comment on above: History of tumor (Pr imary Dx) Start: 04-28-2022 End: 04-29-2022 Patient encounter procedure Melani Russell MD Work Phone: [facility] Start: 04-21-2022 End: 04-21-2022 ambulatory MELANI RUSSELL Facility:[facility] Start: 04-21-2022 End: 04-21-2022 Subsequent hospital visit by physician Kiel [employer] [facility] (I-Stat/1.5t/3t) Work Phone: MRI Q 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] Start: 11-14-2021 ambulatory Melani Hutchison Work Phone: Hematology/Oncology 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 Start: 10-28-2021 Telephone encounter Melani Acuña rd, MD Work Phone: Hematology/Oncology Comment on above: Care Coordination Start: 09-27-2021 End: 09-27-2021 ambulatory MELANI RUSSELL Facility:[facility] Start: 09-20-2021 End: 09-20-2021 ambulatory MELANI RUSSELL Facility:[facility] Start: 05-07-2021 End: 05-07-2021 ambulatory ALEX URBANO [facility] Start: 05-06-2021 End: 05-06-2021 ambulatory ALEX URBANO [facility] Start: 04-26-2021 End: 04-30-2021 Evaluation and management of inpatient FASALAL POLIAWI [facility] Start: 02-28-2021 End: 02-28-2021 Subsequent hospital visit by physician Kiel [facility] (I-Stat/1.5t) Radiology Comment on above: Intra-abdominal and pelvic swelling, mass and lump, unspecified site [R19.00] Procedures Date Procedure Procedure Detail Performing Clinician Start: 04-29-2021 Antibody screen ALEX URBANO Comment on above: Performed By: #### T SCR ####[facility] [address] [place], [place] [phone] Start: 04-26-2021 Antibody screen ALEX URBANO Comment on above: Performed By: #### T SCR ####[facility] [address] [place], [place] [phone] Start: 02-28-2021 Mri abdomen w/o & w/contrast material Cortez Carter MD Work Phone: Plan of Treatment Date Care Activity Detail Author Start: 03-20-2023 Covid-19 Vaccine () Covid-19 Vaccine () [facility] Start: 03-20-2023 Influenza vaccination [facility] Start: 10-28-2022 End: 05-29-2023 Mri abdomen w/o & w/contrast material MRI ABDOMEN WO/W IVCON Radiology Routine History of tumor Expected: 10/28/2022, Expires: 05/29/2023 [facility] Work Phone: Comment on above: Expected: 10/28/2022 , Expires: 05/29/2023 Start: 10-28-2022 End: 05-29-2023 Mri pelvis w/o & w/contrast material MRI PELVIS WO/W IVCON Radiology Routine History of tumor Expected: 10/28/2022, Expires: 05/29/2023 [facility] Work Phone: Comment on above: Expected: 10/28/2022 , Expires: 05/29/2023 Start: 10-26-2022 End: 12-26-2022 CBC W Auto Differential panel - Blood ABS GRAN CT + CBC Lab Routine History of tumor Expected: 10/26/2022 (Approximate), Expires: 12/26/2022 [facility] Work Phone: Comment on above: Expected: 10/26/2022 (Approximate), Expires: 12/26/2022 Start: 10-26-2022 End: 12-26-2022 Comprehensive metabolic 2000 panel - Serum or Plasma COMP METABOLIC PANEL Lab Routine History of tumor Expected: 10/26/2022 (Approximate), Expires: 12/26/2022 [facility] Work Phone: Comment on above: Expected: 10/26/2022 (Approximate), Expires: 12/26/2022 Start: 07-20-2022 DEPRESSION ASSESSMENT DEPRESSION ASS ESSMENT [facility] Start: 03-20-2022 Influenza vaccination C [facility] Start: 09-12-2021 COVID-19 VACCINE (3 - Booster for Pfizer series) COVID-19 VACCINE (3 - Booster for Pfizer series) [facility] Start: 07-20-2021 DEPRESSION ASSESSMENT DEPRESSION ASS ESSMENT [facility] Start: 06-07-2021 COVID-19 VACCINE (3 - Booster for Pfizer series) COVID-19 VACCINE (3 - Booster for Pfizer series) [facility] Start: 06-07-2021 COVID-19 VACCINE (3 - Pfizer series) COVID-19 VACCINE (3 - Pfizer series) [facility] Start: 03-15-2020 Urine microalbumin profile DTaP,Tdap,Td Vaccine (2 - Tdap) [facility] Start: 2014 HPV TESTING HPV TESTING [facility] Start: 2005 PAP TESTING PAP TESTING [facility] Start: 2003 Urine microalbumin profile DTAP,TDAP,TD (1 - Tdap) [facility] Start: 2002 HEPATITIS C SCREENING HEPATITIS C SC REENING [facility] Start: 2002 HIV SCREENING HIV SCREENING [facility] Start: 1996 Adult depression screening assessment DEPRESSION SCREENING [facility] Start: 1984 HEPATITIS B (1 of 3 - 3-dose series) HEPATITIS B (1 of 3 - 3-dose series) [facility] Start: 1984 Hepatitis B Vaccine (1 of 3 - 3-dose series) Hepatitis B Vaccine (1 of 3 - 3-dose series) [facility] End: 04-21-2022 Mri abdomen w/o & w/contrast material [facility] Work Phone: Comment on above: 1 Occurrences starti ng 04/21/2022 until 04/21/2022 End: 04-21-2022 Mri pelvis w/o & w/contrast material [facility] Work Phone: Comment on above: 1 Occurrences starti ng 04/21/2022 until 04/21/2022 [facility] Immunizations Immunization Date Immunization Notes Care Provider Fa cility 04-12-2021 COVID-19 Vaccine Pfi zer - Documentation Purposes Only Shaun Valentine Other [facility] Other 03-22-2021 COVID-19 Vaccine Pfi zer - Documentation Purposes Only Shaun Valentine Other [facility] Other 06-09-2019 influenza virus vaccine, unspecified formulation Mri (I-Stat/1.5t) [facility] Payers Date Payer Category Payer Private Health Insurance [employer] A ETNA CHOICE POS II [id number] 2015-Present [phone] [address] [place] [address] POS [id number] 2015 Private Health Insurance [id number] 1984 Unknown [id number] 1984 Unknown [id number] .1259 1984 Unknown [id number] .9 1984 Unknown [id number] .1259 1984 Unknown [id number] .1259 1984 Unknown [id number] .1259 1984 Unknown [id number] [id number] .9 1984 Unknown [id number] .1259 1984 Unknown [id number] .9 1959 Private Health Insurance [id number] Private Health Insurance [id number] Social History Date Type Detail Facility Start: 02-14-2021 Tobacco smoking stat us NHIS Never smoked tobacco [facility] Start: 02-14-2021 Tobacco use and exposure Smoke less tobacco non-user [facility] Start: 1985 Sex Assigned At Female C [facility] Start: 01-15-2021 End: 04-28-2022 Exposure to SARS-CoV-2 (event) Not sure [facility] Start: 02-14-2021 End: 05-07-2021 Sex Assigned At [facility] Start: 02-14-2021 End: 05-07-2021 History of Social function [facility] Adult Depression Screening Assessment 0 [facility] Start: 02-26-2021 Gender identity Identifies as female gender (finding) [facility] Start: 03-27-2021 Sexual orientation Heterosexual (fin ding) [facility] Clinical Notes 02-28-2021 to 10-10-2022 Note Date & Type Note Facility 10-10-2022 Evaluation note Encounter Date Diagnosis Assessment Notes Sep, Wellness examination (ICD-10 - Z00.00) Sep, Hair thinning (ICD-10 - L65.9) Check H/H and TSH Not scarring [facility] Other [id number] History of Present illness Narrative* Melani Russell [...] Hematology and Medical Oncology [facility]10-10-[facility] Nurse Note* Aliya Jean Baptiste RN - 04/28/2022 3:43 PM EDT Additional intake questions: Has the patient had fever, nausea, vomiting, diarrhea, constipation, fatigue for > 1 week? No Does the patient have a decreased appetite? No Does patient want to see a Body Builder? No (yes to any of above refer [...] Aliya Jean Baptiste RN documented in [facility] encounterUk [facility]10-03-2022 NoteHNO ID: [id number] Author: Erin Garcia RN Service: ? Author [...] Pineda DATE: April 21, 2022 [facility] NoteHNO ID: [id number] Author: RT Toby(R) Service: Radiology Author Type: [...] BY: RT Toby(Lizzy) April 21, 2022 6:08 [facility]10-03-2022 History of Present illness Narrative* Erin [...] 21, 2022 6:08 PM documented in this encounterUk [facility]04-13-2022 Miscellaneous Notes* Telephone Encounter - Brittany Avendaño [facility] - 10/30/2021 3:24 PM EDT Patient calling stating she has not received a call back, Please call @ [phone] * Telephone Encounter - Brittany Avendaño [facility] - 10/28/2021 10:02 AM EDT Oscar Pineda is calling Melani Russell MD today regarding Care Coordination,calling with questions about with her condition. Patient has been identified by name and birthdate. Duration of symptoms: N/A Requesting response back: call on cell [phone] (home) [phone] (cell) Brittany Avendaño [facility] October 28, 2021 documented in this encounterUk Healthcare03-11-2022 NoteHNO ID: [id number] Author: Melani Russell MD Service: ? Author Type: Physician Type: Progress Notes Filed: 10/07/2021 12:24 PM Note Text: [facility] ESTABLISHED PATIENT VISIT PATIENT NAME: Oscar Pineda : 1985 ATTENDING PHYSICIAN: Melani Russell MD DATE OF SERVICE: September 27, 2021 HISTORY OF PRESENT ILLNESS: Oscar Dearth is a 36 year old female with [...] Melani Pérez MD Internal Medicine Resident, PGY-1 [facility] 09/27/2021 SOLID TUMOR STAFF: ATTENDING PHYSICIAN [...] Russell MD, PhD Staff, Hematology and [facility]cology[facility] Note HNO ID: [id number] Author: Shannan Ansari RT(R) Service: Radiology Author [...] BY: RT Eduardo(R) September 20, 2021 4:17 [facility]03-04-2022 NoteHNO ID: [id number] Author: Ronda Arora Service: ? Author Type: [...] Pineda DATE: September 20, 2021 TIME: 3:22 [facility]10-18-2021 NoteHNO ID: [id number] Author: LANETTE De Leon Service: ? Author Type: Genetic Counselor Type: Progress Notes Filed: 05/24/2021 11:18 AM Note Text: [facility] Consultation Note Genetic Counselor: Melida Quintero MS, [facility] Patient: Oscar Pineda Patient Name and confirmed at initiation of visit Visit was done virtually via Zoom Portions of the visit were done by genetic counseling legal internship Suzanna Fishman under my supervision HIGH [...] unknown descent and paternal ancestors are of Tu[place]uan and Bangladeshi descent. There is no Ashkenazi Samaritan ancestry. The patient had limited information about [...] that the patient's genetic (more content not included)...[facility]10-12-2021 NoteHNO ID: [id number] Author: Katty Logan APRN.[employer]DR[employer] Service: Critical Care Author Type: Nurse Practitioner [...] the A/P section below. Please refer to [facility] for list of inpatient medications. VITAL SIGNS: [...] room air today KIMBER (more content not included)...[facility]10-11-2021 NoteHNO ID: [id number] Author: Kayce Wagner MD Service: Radiology Author [...] her to go home. Kayce Wagner MD [phone] Health [facility]10-11-2021 NoteHNO ID: [id number] Author: Marva Stiles APRN.CNP Service: Critical Care [...] Completed decadron -> transitioned to medrol. Consulted [facility] for transfer of service. Addendum @ 1115: pt to remain in SICU, [facility] does not feel comfortable accepting pt given supplemental O2 needs and < 24 hrs since extubation. Objective MEDICATIONS: Current medications and allergies reviewed. Recommended/planned medication changes discussed in detail in the A/P section below. Please refer to [facility] for list of inpatient medications. 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 Pt suffered iatrogenic air embolism to [...] April 29, 2021 TIME: 8:45 AM PAGER/CONTACT #:[facility]10-10-2021 NoteHNO ID: [id number] Author: Sara Guzman APRN.NGUYEN Service: Critical Care [...] the A/P section below. Please refer to [employer] for list of inpatient medications. VITAL SIGNS: [...] Current Assessment AND Pl (more content not included)...[facility]10-10-2021 NoteHNO ID: [id number] Author: Jose M Cedillo MD Service: Interventional [...] who presented for cryoablation on 04/26 with [facility] radiology. Pt suffered iatrogenic air embolism to [...] April 29, 2021 TIME: 8:34 AM PAGER/CONTACT #:[facility]10-09-2021 NoteHNO ID: [id number] Author: Ana Bautista RT(R) Service: Radiology Author [...] Not applicable SIGNED BY: Ana Bautista RDMS, EARLT, Wallace April 27, 2021 12:23 [facility]10-09-2021 History of Past illness Narrative* Problem [...] of this encounter (statuses as of 11/01/2021) [facility]10-09-2021 History of Past illness Narrative* Problem Noted [...] of this encounter (statuses as of 11/19/2021) [facility]10-09-2021 History of Past illness Narrative* Problem Noted [...] of this encounter (statuses as of 04/22/2022) [facility]10-09-2021 History of Past illness Narrative* Problem Noted [...] of this encounter (statuses as of 04/29/2022) [facility]10-09-2021 History of Past illness Narrative* Problem Noted [...] of this encounter (statuses as of 02/25/2023) [facility]10-09-2021 NoteHNO ID: [id number] Author: Anila Wise APRN.NGUYEN Service: Critical Care [...] Is Patient Clinically Ready to Transfer to [facility] or SDU?: No Discharge Planning: To [...] Pulmonary Acute respiratory insufficie (more content not included)...[facility]10-09-2021 NoteHNO ID: [id number] Author: Jose M Cedillo MD Service: Interventional [...] to look for air in the hepatic veins[facility]2021 NoteHNO ID: [id number] Author: Interface Note Service: ? Author Type: ? Type: Progress Notes Filed: 04/27/2021 2:51 AM Note Text: [facility] Scheduled Downtime: 04/27/2021 1:00:00 AM to 04/27/2021 2:33:00 [facility]10-08-2021 NoteHNO ID: [id number] Author: Marva Stiles APRN.CNP Service: Critical Care [...] section below. Please refer to [facility] for list of inpatient medications. VITAL SIGNS: [...] Is Patient Clinically Ready to Transfer to [facility] or SDU?: No Discharge Planning: To [...] 1245 vte pharmacologic prophyl (more content not included)...[facility]10-08-2021 NoteHNO ID: [id number] Author: Galdino Gaona DO Service: Critical Care Author Type: Fellow Type: Procedures Filed: 04/26/2021 4:34 PM Note Text: BEDSIDE PROCEDURE NOTE CENTRAL LINE INSERTION Date/Start Time: 04/26/2021 4:33 PM Performed by: Galdino Gaona DO Authorized by: Polly Reyna MD Informed Consent Consent Obtained: Written [employer] Protocol A moment to CARE was completed. [...] was applied following the usual aseptic technique. [facility] Central Line Insertion Checklist, attached to the [...] Care Visit completed when applicable SIGNATURE: Galdino RiverayessiDO PATIENT NAME: Oscar Pineda DATE: April 26, 2021 TIME: 4:32 [facility]10-08-2021 NoteHNO ID: [id number] Author: Polly Reyna MD Service: Critical Care [...] MD SICU Staff. 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 Intra-abdominal and pelvic swelling, mass and lump, unspecified site Abdominal mass, unspecified abdominal location documented in this encounter [facility] note* Diagnosis History of tumor- Primary Personal history of other specified diseases documented in this encounter [facility] noteNo InformationNortWellSpan [facility] SecretSales Other History general Narrative - Reported* Type Description Date Medical History Fatigue Medical History Gall bladder polyp Medical History Atopic dermatitis, mild Medical History DESMOID FIBROMATOSIS Surgical History C section x 3 Surgical History wisdom teeth Surgical History RIGHT ABDOMINAL WALL MASS Hospitalization History see above [facility] SecretSales Other Advance Directives No Advanced Directives Records FoundDocuments on File Type Date Recorded Patient Wireless Watcher Expl anation Advance Directive(s) 04/10/2021 12:55 PM Advance Directive(s) 03/07/2021 6:15 PM Reason for Referral Specialty Diagnoses / Procedures Referred By Contac t Referred To Contact MR IMAGING Diagnoses Desmoid Abdominal mass, unspecified abdominal location Procedures MRI PELVIS WO/W IVCON MRI PELVIS W/O & W/CONTRAST MATERIAL Melani Rsusell MD [address] [place] [address] Mr Imaging Referral ID Status Reason Start Date Expiration Date V isits Requested Visits Authorized [id number] Closed Auto-Generate d Referral 03/30/2022 10/27/2022 1 1 Specialty Diagnoses / Procedures Referred By Contac t Referred To Contact MR IMAGING Diagnoses Desmoid Intra-abdominal and pelvic swelling, mass and lump, unspecified site Procedures MRI ABDOMEN WO/W IVCON MRI ABDOMEN W/O & W/CONTRAST MATERIAL Melani Russell MD [address] [place] [address] Mr Imaging Referral ID Status Reason Start Date Expiration Date V isits Requested Visits Authorized [id number] Closed Auto-Generate d Referral 03/30/2022 10/27/2022 1 1 Specialty Diagnoses / Procedures Referred By Contac t Referred To Contact MR IMAGING Diagnoses History of tumor Procedures MRI PELVIS WO/W IVCON MRI PELVIS W/O & W/CONTRAST MATERIAL Melani Russell MD [address] [place] [address] Mr Imaging Referral ID Status Reason Start Date Expiration Date Visits Requested Visits Authorized [id number] Pending Review Auto-Generat ed Referral 10/28/2022 05/29/2023 1 1 Specialty Diagnoses / Procedures Referred By Katie verdugo Referred To Contact MR IMAGING Diagnoses History of tumor Procedures MRI ABDOMEN WO/W IVCON MRI ABDOMEN W/O & W/[place] [address] [place] [address] Mr Imaging Referral ID Status Reason Start Date Expiration Date Visits Requested Visits Authorized [id number] Pending Review Auto-Generat ed Referral 10/28/2022 05/29/2023 [...] or prosecute any alcohol or drug abuse patient.[facility] Healthcare[facility] the event this information is protected by the Federal Confidentiality of Alcohol and Drug Abuse Patient Records regulations: The Federal rules restrict any use of the information to criminally investigate or prosecute any alcohol or drug abuse patient.[facility] HealthcareIn the event this information is protected by the Federal Confidentiality of Alcohol and Drug Abuse Patient Records regulations: The Federal rules restrict any use of the information to criminally investigate or prosecute any alcohol or drug abuse patient.[facility] HealthcareIn the event this information is protected by the Federal Confidentiality of Alcohol and Drug Abuse Patient Records regulations: The Federal rules restrict any use of the information to criminally investigate or prosecute any alcohol or drug abuse patient.[facility] HealthcareIn the event this information is protected by the Federal Confidentiality of Alcohol and Drug Abuse Patient Records regulations: The Federal rules restrict any use of the information to criminally investigate or prosecute any alcohol or drug abuse patient.[facility] HealthcareIn the event this information is protected by the Federal Confidentiality of Alcohol and Drug Abuse Patient Records regulations: The Federal rules restrict any use of the information to criminally investigate or prosecute any alcohol or drug abuse patient.[facility] Reason for Visit (unrecogniz ed section and content) Reason Comments Care Coordination Reason Comments Radiology MRI Specialty Diagnoses / Procedures Referred By Contac t Referred To Contact MR IMAGING Diagnoses Desmoid Intra-abdominal and pelvic swelling, mass and lump, unspecified site Procedures MRI ABDOMEN WO/W IVCON MRI ABDOMEN W/O & [place] [address] [place] [address] Mr Imaging Referral ID Status Reason Start Date Expiration Date V isits Requested Visits Authorized [id number] Closed Auto-Generate d Referral 03/30/2022 10/27/2022 1 1 Reason Comments Established Patient Reason Comments Radiology MRI Specialty Diagnoses / Procedures Referred By Contac t Referred To Contact MR IMAGING Diagnoses Intra-abdominal and pelvic swelling, mass and lump, unspecified site Procedures MRI ABDOMEN WO/W IVCON MRI,ABDOMEN,W&WO Cortez Dubois MD [address] [place] [address] [place] [address] Referral ID Status Reason Start Date Expiration Date V isits Requested Visits Authorized [id number] Closed Auto-Generate d Referral 02/14/2021 03/16/2022 1 1 Care Teams (unrecognized sec tion and content) Branch Operations Coordinator Relationship Specialty [place] [address] [place] [address] Physician Hematology/Oncology 05/20/21 Chey Tamayo, RN [address] [place] [id number] Specialty Department Store Door Greeter Oncology 05/20/21 Branch Operations Coordinator Relationship Specialty Start [place] [id number] [place] [id number] Physician Hematology/Oncology 05/20/21 Claritza Tamayo RN [address] [place] [address] Specialty Department Store Door Greeter Oncology 05/20/21 Branch Operations Coordinator Relationship Specialty [place] [address] [place], [place] [id number] Physician Hematology/Oncology 05/20/21 [place] [address] [place] [address] Specialty Department Store Door Greeter Oncology 05/20/21 Branch Operations Coordinator Relationship Specialty Start Date End Date Melani Russell [place] [id number] [place] [address] [id number] Physician Hematology/Oncology 05/20/21 Claritza Tamayo RN [address] [place] [address] Specialty Department Store Door Greeter Oncology 05/20/21 Branch Operations Coordinator Relationship Specialty Start Date End Date Melani Russell MD [address] [place] [address] [id number] Physician Hematology/Oncology 05/20/21 [place] [address] [place], [place] [phone] Specialty Department Store Door Greeter Hematology/Oncology 06/10/22 INFORMATION SOURCE (unrecogn ized section and content) DATE CREATED AUTHOR 04/23/2022 [facility] DATE CREATED AUTHOR AUTHOR'S ORGANIZ ATION 11/02/2022 [facility] DATE CREATED AUTHOR AUTHOR'S ORGANIZ ATION 09/28/2023 [facility] dical Specialists [facility] FOR RECORDS PERTAINING TO PATIENTS WHO [...] BE BASED ON THE PRIMARY CLINICAL RECORDS. [employer] [facility]. provides no warranty or guarantee of the accuracy or completeness of information in this document.
== END 2023-09-28 21:48 | disposition home or self-care (01) ==
LOC: LAB 21:47
PROVIDERS: PCP Internal Medicine; Visit Provider Obstetrics & Gynecology
DX: Z34.93 Encounter for supervision of normal pregnancy, unspecified, third trimester (principal)
CPT/HCPCS: 87081

== ENCOUNTER 2023-09-29 07:40 | Outpatient (OUT) | payer OTHER, SELFPAY ==
--- OUTSIDE RECORDS SUMMARY | 2023-09-29 07:43 | XMS_ITS | CCD ---
Author Name Unknown Address [address] [place] [address] Organization [facility] Care Team Providers Care Solar[employer] Sales Name Role Phone Drew JAMES, Melani Unavailable Yariel GARCIA, Chey Unavailable [phone] Yariel GARCIA, Claritza Andrade Unavailable [phone] Melani Russell MD Unavailable Claritza Tamayo RN [...] [CODEINE] Drug Allergy 1 GI Upset [facility] (7 sources) Adhesive Tape-Silicones; Translations: [ADHESIVE TAPE-SILICONES] Drug Allergy 1 Other: See Comments [facility] (2 sources) Adhesive agent Drug allergy Unknown [facility] Other (2 sources) Codeine Drug Allergy nausea [facility] Other (1 source) Codeine Drug Allergy 1 [facility] (1 source) Desonide Drug Allergy 1 [facility] Medications Current Medications Medication [...] 10-27-2022 BASO # 0.1 103/ul Normal 0.0-0.1 [facility] Comment on above: Performed By: #### C BC #### [facility] [address] [address] [address] Rancho Cobos Basophils/100 WBC (Bld) 0.9 % Normal 0.2-2.0 [facility] Comment on above: Performed By: #### C BC #### [facility] [address] [address] [address] Rancho Cobos EO # 0.1 103/ul Normal 0.0-0.7 [facility] Comment on above: Performed By: #### C BC #### [facility] [address] [address] [address] Rancho Cobos Eosinophils/100 WBC (Bld) 1.4 % Normal 0.9-7.0 [facility] Comment on above: Performed By: #### C BC #### [facility] [address] [address] [address] Rancho Cobos Erythrocyte distribution width (RBC) [Ratio] 11.8 % Normal 11.0-15.0 [facility] Comment on above: Performed By: #### C BC #### [facility] [address] [address] [address] Rancho Cobos Hematocrit (Bld) [Volume fraction] 38.5 % Normal 36.0-48.0 [facility] Comment on above: Performed By: #### C BC #### [facility] [address] [address] [address] Rancho Cobos Hemoglobin (Bld) [Mass/Vol] 13.3 g/dL Normal 12.0-16.0 [facility] Comment on above: Performed By: #### C BC #### [facility] [address] [place] [address] Dr. Rancho Cobos IG # 0.01 10e3/ul Normal 0.00-0.03 [facility] Comment on above: Performed By: #### C BC #### [facility] [address] [place] [address] Dr. Rancho Cobos IG % 0.2 % Normal 0.0-0.5 [facility] Comment on above: Performed By: #### C BC #### [facility] [address] [place] [address] Dr. Rancho Cobos LYMPH # 1.7 103/ul Normal 1.2-3.8 [facility] Comment on above: Performed By: #### C BC #### [facility] [address] [place] [address] Dr. Rancho Cobos Lymphocytes/100 WBC (Bld) 31.2 % Normal 20.5-60.0 [facility] Comment on above: Performed By: #### C BC #### [facility] [address] [place] [address] Dr. Rancho Cobos MANUAL DIFF REQ NO Normal [facility] Comment on above: Performed By: #### C BC #### [facility] [address] [place] [address] Dr. Rancho Cobos MCH (RBC) [Entitic mass] 31.9 pg Normal 26.7-34.0 [facility] Comment on above: Performed By: #### C BC #### [facility] [address] [place] [address] Dr. Rancho Cobos MCHC (RBC) [Mass/Vol] 34.5 g/dL Normal 29.9-35.2 [facility] Comment on above: Performed By: #### C BC #### [facility] [address] [place] [address] Dr. Rancho Cobos MCV (RBC) [Entitic vol] 92.3 fL Normal 81.0-99.0 [facility] Comment on above: Performed By: #### C BC #### [facility] [address] [place] [address] Dr. Rancho Cobos MONO # 0.3 103/ul Normal 0.3-0.8 [facility] Comment on above: Performed By: #### C BC #### [facility] [address] [address] [address] Rancho Cobos Monocytes/100 WBC (Bld) 5.2 % Normal 1.7-12.0 [facility] Comment on above: Performed By: #### C BC #### [facility] [address] [place] [address] Dr. Rancho Cobos NEUT # 3.4 103/ul Normal 1.4-6.5 [facility] Comment on above: Performed By: #### C BC #### [facility] [address] [place] [address] Dr. Rancho Cobos Neutrophils/100 WBC (Bld) 61.1 % Normal 43.0-75.0 [facility] Comment on above: Performed By: #### C BC #### [facility] [address] [place] [address] Dr. Rancho Cobos Platelet mean volume (Bld) [Entitic vol] 9.4 fL Critically low 9.5-13.5 [facility] Comment on above: Performed By: #### C BC #### [facility] [address] [place] [address] Dr. Rancho Cobos PLT 261 103/ul Normal 150-450 [facility] Comment on above: Performed By: #### C BC #### [facility] [address] [place] [address] Dr. Rancho Cobos RBC 4.17 106/ul Critically low 4.20-5.40 [facility] Comment on above: Performed By: #### C BC #### [facility] [address] [place] [address] Dr. Rancho Cobos WBC 5.6 103/ul Normal 4.0-11.0 [facility] Comment on above: Performed By: #### C BC #### [facility] [address] [address] [address] Rancho Cobos LIPID PROFILEon 10-27-2022 CHOL-HDL RATIO NORM SEE BELOW Normal [facility] Comment on above: Result Comment: 3.3 - 4.4 LOW RISK 4.4 - 7.1 AVERAGE RISK 7.1 - 11.0 MODERATE RISK >11.0 HIGH RISK Performed By: #### C MP, LIPID, TSH #### [facility] [address] [address] [address] Rancho Cobos Cholesterol [Mass/Vol] 162 mg/dL Normal <=200 [facility] Comment on above: Performed By: #### C MP, LIPID, TSH #### [facility] [address] [address] [address] Rancho Cobos Cholesterol in HDL [Mass/Vol] 56 mg/dL Normal 40-60 [facility] Comment on above: Performed By: #### C MP, LIPID, TSH #### [facility] [address] [place] [address] Dr. Rancho Cobos Cholesterol in LDL [Mass/Vol] 97.0 mg/dL Normal [facility] Comment on above: Performed By: #### C MP, LIPID, TSH #### [facility] [address] [place] [address] Dr. Rancho Cobos Cholesterol.total/ Cholesterol in HDL [Mass ratio] 2.9 {ratio} Normal [facility] Comment on above: Performed By: #### C MP, LIPID, TSH #### [facility] [address] [address] [address] Rancho Cobos HDL NORMAL > or = 60 mg/dl - LO W CARDIOVASCULAR RISK <40 mg/dl - HIGH CARDIOVASCULAR RISK Normal [facility] Comment on above: Performed By: #### C MP, LIPID, TSH #### [facility] [address] [place] [address] Dr. Rancho Cobos LDL CALC NORMAL SEE BELOW Normal [facility] Comment on above: Result Comment: <100 mg/dl OPTIMAL 100 - 129 mg/dl NEAR OR ABOVE OPTIMAL 130 - 159 mg/dl BORDERLINE HIGH 160 - 189 mg/dl HIGH >190 mg/dl VERY HIGH Performed By: #### C MP, LIPID, TSH #### [facility] [address] [address] [address] Rancho Cobos Triglyceride [Mass/Vol] 45 mg/dL Normal <=150 [facility] Comment on above: Performed By: #### C MP, LIPID, TSH #### [facility] [address] [address] [address] Rancho Cobos VLDL CALC 9.0 mg/dL Normal [facility] Comment on above: Performed By: #### C MP, LIPID, TSH #### [facility] [address] [address] [address] Rancho Cobos PROF 14(COMP METB)on 023 Albumin [Mass/Vol] 4.0 g/dL Normal 3.4-5.0 [facility] Comment on above: Performed By: #### C MP, LIPID, TSH #### [facility] [address] [address] [address] Rancho Cobos Albumin/Globulin [Mass ratio] 1.2 {ratio} Normal [facility] Comment on above: Performed By: #### C MP, LIPID, TSH #### [facility] [address] [address] [address] Rancho Cobos ALP [Catalytic activity/Vol] 34 U/L Critically low 46-116 [facility] Comment on above: Performed By: #### C MP, LIPID, TSH #### [facility] [address] [address] [address] Rancho Cobos ALT [Catalytic activity/Vol] 24 U/L Normal 14-59 [facility] Comment on above: Performed By: #### C MP, LIPID, TSH #### [facility] [address] [address] [address] Rancho Cobos Anion gap [Moles/Vol] 12.1 mmol/L Normal [facility] Comment on above: Performed By: #### C MP, LIPID, TSH #### [facility] [address] [address] [address] Rancho Cobos AST [Catalytic activity/Vol] 17 U/L Normal 15-37 [facility] Comment on above: Performed By: #### C MP, LIPID, TSH #### [facility] [address] [address] [address] Rancho Cobos Bilirubin [Mass/Vol] 0.5 mg/dL Normal 0.2-1.0 [facility] Comment on above: Performed By: #### C MP, LIPID, TSH #### [facility] [address] [place] [address] Dr. Rancho Cobos Calcium [Mass/Vol] 9.2 mg/dL Normal 8.5-10.1 [facility] Comment on above: Performed By: #### C MP, LIPID, TSH #### [facility] [address] [address] [address] Rancho Cobos Chloride [Moles/Vol] 107 mmol/L Normal 98-107 [facility] Comment on above: Performed By: #### C MP, LIPID, TSH #### [facility] [address] [place] [address] Dr. Rancho Cobos CO2 [Moles/Vol] 28.5 mmol/L Normal 21.0-32.0 [facility] Comment on above: Performed By: #### C MP, LIPID, TSH #### [facility] [address] [place] [address] Dr. Rancho Cobos Creatinine [Mass/Vol] 0.72 mg/dL Normal 0.55-1.02 [facility] Comment on above: Performed By: #### C MP, LIPID, TSH #### [facility] [address] [place] [address] Dr. Rancho Cobos EGFR-AF DOMINICAN >60 Normal >=60 [facility] Comment on above: Performed By: #### C MP, LIPID, TSH #### [facility] [address] [place] [address] Dr. Rancho Cobos EGFR-NON AF DOMINICAN >60 Normal >=60 [facility] Comment on above: Performed By: #### C MP, LIPID, TSH #### [facility] [address] [place] [address] Dr. Rancho Cobos Globulin (S) [Mass/Vol] 3.4 g/dL Normal [facility] Comment on above: Performed By: #### C MP, LIPID, TSH #### [facility] [address] [address] [address] Rancho Cobos Glucose [Mass/Vol] 92 mg/dL Normal 74-106 [facility] Comment on above: Performed By: #### C MP, LIPID, TSH #### [facility] [address] [place] [address] Dr. Rancho Cobos Potassium [Moles/Vol] 4.6 mmol/L Normal 3.5-5.1 [facility] Comment on above: Performed By: #### C MP, LIPID, TSH #### [facility] [address] [place] [address] Dr. Rancho Cobos Protein [Mass/Vol] 7.4 g/dL Normal 6.4-8.2 [facility] Comment on above: Performed By: #### C MP, LIPID, TSH #### [facility] [address] [place] [address] Dr. Rancho Cobos Sodium [Moles/Vol] 143 mmol/L Normal 136-145 [facility] Comment on above: Performed By: #### C MP, LIPID, TSH #### [facility] [address] [place] [address] Dr. Rancho Cobos Urea nitrogen [Mass/Vol] 18.0 mg/dL Normal 7.0-18.0 [facility] Comment on above: Performed By: #### C MP, LIPID, TSH #### [facility] [address] [place] [address] Dr. Rancho Cobos Urea nitrogen/Creatinin e [Mass ratio] 25.0 mg/mg Normal [facility] Comment on above: Performed By: #### C MP, LIPID, TSH #### [facility] [address] [place] [address] Dr. Rancho Cobos TSHon 10-27-2022 TSH 1.005 uIU/mL Normal 0.358-3.740 [facility] Comment on above: Performed By: #### C MP, LIPID, TSH #### [facility] [address] [address] [address] Rancho Cobos MRI ABDOMEN WO/W IVCONon [...] suspicious marrow signal abnormality. Lower chest: Unremarkable. Continuous Vulcanizing Machine Operator (localizer) images: No additional findings. IMPRESSION: Evolving changes of RIGHT rectus abdominis muscle ablation without local recurrence. No metastatic disease in abdomen or pelvis Senior Executive Compensation Analyst: [facility] Transcribe Date/Time: Apr 22 2022 10:29A Dictated by : LIBRADO JOAQUIN DO This examination was interpreted and the report reviewed and electronically signed by: CANELO EDMONDSON MD on Apr 22 2022 12:49PM EST [id number] Normal [facility] MRI PELVIS WO/W IVCONon 10-0 MRI [...] suspicious marrow signal abnormality. Lower chest: Unremarkable. Continuous Vulcanizing Machine Operator (localizer) images: No additional findings. IMPRESSION: Evolving changes of RIGHT rectus abdominis muscle ablation without local recurrence. No metastatic disease in abdomen or pelvis Senior Executive Compensation Analyst: ANEL Transcribe Date/Time: Apr 22 2022 10:29A Dictated by : LIBRADO JOAQUIN, DO This examination was interpreted and the report reviewed and electronically signed by: CANELO EDMONDSON MD on Apr 22 2022 12:49PM EST [id number] Normal [facility] CNPAmi 10-28-2021 CNPN Telephone (HEMCA3) OSCAR PINEDA ([id number]) 1985 F Date Time Provider Department 10/28/21 MELANI RUSSELL HEMCA3 During your visit today, we recorded the following information about you: Brittany Avendaño [facility] 10/28/2021 10:04 AM Signed Oscar Pineda is calling Melani Russell MD today regarding Care Coordination,calling with questions about with her condition. Patient has been identified by name and birthdate. Duration of symptoms: N/A Requesting response back: call on cell [phone] (home) [phone] (cell) Brittany Avendaño [facility] October 28, 2021 Brittany Avendaño [facility] 10/30/2021 3:25 PM Signed Patient calling stating she has not received a call back, Please call @ [phone] Melani Russell MD 11/19/2021 10:20 AM Signed This has been addressed through an [employer] message. Melani Russell MD, PhD Staff, Hematology [...] Status:Closed by BRITTANY LIAO on 11/01/21 Normal [facility] CNOVSPon 09-27-2021 CNOVSP Visit (SP) Office (HEMCA4) SARAVANANOSCAR GRACE ([id number]) 1985 F Date Time Provider Department 09/27/21 9:00 AM MELANI RUSSELL HEMCA4 During your visit today, we recorded the following information about you: Pulse Respiration Blood pressure Weight 65/minute 20/minute 149/67 77.6 kg Melani Russell MD 10/07/2021 12:24 PM Signed [facility] ESTABLISHED PATIENT VISIT PATIENT NAME: Oscar Pineda [...] Melani Pérez MD Internal Medicine Resident, PGY-1 [employer] 09/27/2021 SOLID TUMOR STAFF: ATTENDING PHYSICIAN NOTE [...] No Does patient want to see a Computer Network Support Specialist? No (yes to any of (more content not included)... Normal [facility] MRI ABDOMEN WO/W IVCONon MRI ABDOMEN [...] diffusion weighted and T1 weighted in- and cie-rf-[id number] images were obtained. Then, using a 3-D [...] muscle mass, without evidence for residual/recurrent disease. Senior Executive Compensation Analyst: ANEL Transcribe Date/Time: Sep 20 2021 4:49P Dictated by : CHRIS MILIAN MD This examination was interpreted and the report reviewed and electronically signed by: CHRIS MILIAN MD on Sep 20 2021 4:58PM EST [id number] Normal [facility] MRI PELVIS WO/W IVCONon 03-0 MRI [...] diffusion weighted and T1 weighted in- and dxu-xd-[id number] images were obtained. Then, using a 3-D [...] muscle mass, without evidence for residual/recurrent disease. Senior Executive Compensation Analyst: ANEL Transcribe Date/Time: Sep 20 2021 4:49P Dictated by : CHRIS MILIAN MD This examination was interpreted and the report reviewed and electronically signed by: CHRIS MILIAN MD on Sep 20 2021 4:58PM EST [id number] Normal [facility] CNPNon 08-09-2021 CNPN Telephone (HEMCA3) OSCAR PINEDA ([id number]) 1985 F Date Time Provider Department 08/09/21 [...] N/A Requesting response back: call on cell [phone] (home) [phone] (cell) Marva Gualberto Adm August 09, 2021 Chey Tamayo RN 08/09/2021 4:42 PM Signed Returned call to patient and informed her that moving her visit with Dr. Russell after the MRI would be best to establish a plan of care. Patient was appreciative of return call and information. Chey Tamayo RN Corn Popper August 09, 2021 Allergies As of Date: 08/09/2021 Noted Allergy Reaction CODEINE 02/01/2021 8 - GI Upset ADHESIVE TAPE-SILICONES 02/14/2021 14 - Other: See Comments Comments: Blisters Date Reviewed: 04/30/2021 Reviewed by: Magda oRse RN - Fully Assessed Reason for Visit: [...] Encounter Status:Closed by CLARITZA TAMAYO on 08/09/21 [facility] OSCAR PINEDA ([id number]) 1985 F Date Time Provider Department 05/22/21 MELIDA QUINTERO During your visit today, we recorded the following information about you: LANETTE De Leon 05/22/2021 2:32 PM Signed Patient name and was confirmed at initiation of discussion. Oscar Pineda's Common Hereditary Cancers Panel through [employer] was negative for a pathogenic variant. Please [...] Encounter Status:Closed by MELIDA QUINTERO on 05/22/21 [facility] 05-15-2021 CNPN Telephone (HEMCA3) OSCAR PINEDA ([id number]) 1985 F Date Time Provider Department 05/15/21 [...] N/A Requesting response back: call on cell [phone] (home) [phone] (cell) Marva Burciaga Adm May 15, 2021 [...] Status:Closed by MELANI RUSSELL on 10/29/21 Normal [facility] Molecular Teston 2020 Test Common Hereditary Cancers Panel Normal [facility] Comment on above: Performed By: #### M OL13 ####[facility] [id number] [place] [address] Test Results View results in Scan zahraa Documents link when available. Normal [facility] Comment on above: Performed By: #### M OL13 ####[facility] [id number] [place] [address] Nishant 05-01-2021 NGUYENN Telephone (JULIANN) OSCAR PINEDA ([id number]) 1985 F Date Time Provider Department 05/01/21 [...] questions or concerns. Mindy Farley Genetic Counselor Boiler Operator Allergies As of Date: 05/01/2021 Noted [...] Status:Closed by MINDY FARLEY on 05/01/21 Normal [facility] CBCon 04-30-2021 Absolute nRBC <0.01 Normal <0.01 [facility] Comment on above: Performed By: #### C BC ####[facility] [id number] [place], [place] [phone] Erythrocyte distribution width (RBC) [Ratio] 12.0 % Normal 11.5-15.0 [facility] Comment on above: Performed By: #### C BC ####[address] [address] [address], [place] [phone] Hematocrit (Bld) [Volume fraction] 33.8 % Low 36.0-46.0 [facility] Comment on above: Performed By: #### C BC ####[address] [address] [address], [place] [phone] Hemoglobin (Bld) [Mass/Vol] 11.8 g/dL Normal 11.5-15.5 [facility] Comment on above: Performed By: #### C BC ####[address] [address] [address], [place] [phone] MCH 31.5 pG Normal 26.0-34.0 [facility] Comment on above: Performed By: #### C BC ####[address] [address] [address], [place] [phone] MCHC (RBC) [Mass/Vol] 34.9 g/dL Normal 30.5-36.0 [facility] Comment on above: Performed By: #### C BC ####[address] [address] [address], [place] [phone] MCV (RBC) [Entitic vol] 90.1 fL Normal 80.0-100.0 [facility] Comment on above: Performed By: #### C BC ####[address] [address] [address], [place] [phone] Platelet mean volume (Bld) [Entitic vol] 9.6 fL Normal 9.0-12.7 [facility] Comment on above: Performed By: #### C BC ####[address] [address] [address], [place] [phone] Platelets (Bld) [#/Vol] 182 10*3/uL Normal 150-400 [facility] Comment on above: Performed By: #### C BC ####[address] [address] [address], [place] [phone] RBC (Bld) [#/Vol] 3.75 10*6/uL Low 3.90-5.20 [facility] Comment on above: Performed By: #### C BC ####[facility] [address] [place], [place] [phone] WBC (Bld) [#/Vol] 12.88 10*3/uL High 3.70-11.00 [facility] Comment on above: Performed By: #### C BC ####[facility] [address] [place], [place] [phone] CNDSon 04-30-2021 CNDS HNO ID: [id number] Author: Katty Logan APRN.GAS WELDER APPRENTICE Service: Critical Care Author Type: Nurse Practitioner [...] air KIMBER (more content not included)... Normal [facility] THERAPY NTon 04-30-2021 THERAPY NT HNO ID: [id number] Author: Licha Llanes, PT Service: Physical Therapy Author Type: Physical Therapist Type: Therapy (PT/OT/Speech/Resp) Filed: 04/30/2021 3:02 PM Note Text: Physical Therapy Treatment SERVICE DATE: 04/30/2021 SERVICE TIME: 1342 to 1351 ROOM: [place] [address] Recommended Discharge Disposition: Home Recommended Discharge Disposition [...] gait and mobility-other Interventions Provided: Gait Training (46812) Gait Training (07213) Treatment Minutes: 9 $ Gait Training (00382) Billed Units: 1 unit Training AND education provided in: Discharge planning, Energy conservation, Exercise program, Expected functional level, Falls prevention, Gait pattern, reduction of deviations, Home safe (more content not included)... Normal [facility] ALLIED HEALTHon 04-29-2021 ALLIED HEALTH HNO ID: [id number] Author: Ana Watters RN Service: Healing Service [...] 29, 2021 TIME: 8:11 AM CONTACT #: [phone] Normal [facility] APTTon 04-29-2021 aPTT Coag (Bld) [Time] 26.4 s Normal 23.0-32.4 [facility] Comment on above: Result Comment: Unfr [...] laboratory APTT reagent in use throughout the [facility]. 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 Last discharge within 30 days: No Advance Directive: Current Advance Directive: None Breaker Hand Attempted to Assist with AD Completion: No [...] None Has the Patient Been in a Care Home Facility in the Past 30 days?: No SOCIAL: Living Arrangements: Home Lives With: Spouse Primary Contact: Extended Emergency Contact Information Primary Emergency Contact: LAURA PINEDA Address: [address] [place] [id number] [facility] Mobile Relation: Spouse Supportive Patient Contact:: Yes Contact Resources: Family Family Name/Phone: LAURA PINEDA (Spouse) [phone] Caregiver AssessmentCaregiver is ready, willing and able [...] Mostly I feel financially burdened by my [id number] expenses for my prescription medication:: 0 - Disagree Mostly Risk Score: 0 Patient is categorized as: Low risk < 2 Med Adherance Assessement not completed due to: No 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 Yes Is Patient Psychosocially Complex?: No ASSESSMENT AND PLAN: Medical Needs: Medical Needs: None Psychosocial Needs: Psychosocial Needs: None FREEDOM OF CHOICE EXPLAINED: [place] of Choice Given: No Reason Not Given: No placements necessary POTENTIAL TRANSITION PLANS No Services Indicated SIGNATURE: Rocoi Bear RN MSN PATIENT NAME: Oscar Pineda DATE: April 29, 2021 TIME: 11:53 AM PAGER/CONTACT #: [phone] Normal [facility] CBCon 04-29-2021 Absolute nRBC <0.01 Normal <0.01 [facility] Comment on above: Performed By: #### C BC, MG1, PHOS, PTT, CMP, PT ####[facility] [place], [place] [phone] Erythrocyte distribution width (RBC) [Ratio] 11.8 % Normal 11.5-15.0 [facility] Comment on above: Performed By: #### C BC, MG1, PHOS, PTT, CMP, PT ####[place] [address] [address] [place] [phone] Hematocrit (Bld) [Volume fraction] 37.0 % Normal 36.0-46.0 [facility] Comment on above: Performed By: #### C BC, MG1, PHOS, PTT, CMP, PT ####[place] [address] [address] [place] [phone] Hemoglobin (Bld) [Mass/Vol] 12.3 g/dL Normal 11.5-15.5 [facility] Comment on above: Performed By: #### C BC, MG1, PHOS, PTT, CMP, PT ####[place] [address] [address] [place] [phone] MCH 30.9 pG Normal 26.0-34.0 [facility] Comment on above: Performed By: #### C BC, MG1, PHOS, PTT, CMP, PT ####[place] [address] [address] [place] [phone] MCHC (RBC) [Mass/Vol] 33.2 g/dL Normal 30.5-36.0 [facility] Comment on above: Performed By: #### C BC, MG1, PHOS, PTT, CMP, PT ####[place] [address] [address] [place] [phone] MCV (RBC) [Entitic vol] 93.0 fL Normal 80.0-100.0 [facility] Comment on above: Performed By: #### C BC, MG1, PHOS, PTT, CMP, PT ####[place] [address] [address] [place] [phone] Platelet mean volume (Bld) [Entitic vol] 10.0 fL Normal 9.0-12.7 [facility] Comment on above: Performed By: #### C BC, MG1, PHOS, PTT, CMP, PT ####[place] [address], [place] [phone] Platelets (Bld) [#/Vol] 188 10*3/uL Normal 150-400 [facility] Comment on above: Performed By: #### C BC, MG1, PHOS, PTT, CMP, PT ####[place] [address] [address], [place] [phone] RBC (Bld) [#/Vol] 3.98 10*6/uL Normal 3.90-5.20 [facility] Comment on above: Performed By: #### C BC, MG1, PHOS, PTT, CMP, PT ####[place] [address] [address], [place] [phone] WBC (Bld) [#/Vol] 11.41 10*3/uL High 3.70-11.00 [facility] Comment on above: Performed By: #### C BC, MG1, PHOS, PTT, CMP, PT ####[place] [address] [address], [place] [phone] Comp Metabolic Panelon 04-29 Albumin [Mass/Vol] 3.5 g/dL Low 3.9-4.9 [facility] Comment on above: Performed By: #### C BC, MG1, PHOS, PTT, CMP, PT ####[place] [address], [place] [phone] ALP [Catalytic activity/Vol] 43 U/L Normal 34-123 [facility] Comment on above: Performed By: #### C BC, MG1, PHOS, PTT, CMP, PT ####[place] [address], [place] [phone] ALT [Catalytic activity/Vol] 56 U/L High 7-38 [facility] Comment on above: Performed By: #### C BC, MG1, PHOS, PTT, CMP, PT ####[facility], [place] [phone] Anion gap [Moles/Vol] 14 mmol/L Normal 9-18 [facility] Comment on above: Performed By: #### C BC, MG1, PHOS, PTT, CMP, PT ####[place] [address], [place] [phone] AST [Catalytic activity/Vol] 171 U/L High 13-35 [facility] Comment on above: Performed By: #### C BC, MG1, PHOS, PTT, CMP, PT ####[place] [address] [address], [place] [phone] Bilirubin [Mass/Vol] 0.6 mg/dL Normal 0.2-1.3 [facility] Comment on above: Performed By: #### C BC, MG1, PHOS, PTT, CMP, PT ####[place] [address] [address], [place] [phone] Calcium [Mass/Vol] 8.3 mg/dL Low 8.5-10.2 [facility] Comment on above: Performed By: #### C BC, MG1, PHOS, PTT, CMP, PT ####[place] [address] [address], [place] [phone] Chloride [Moles/Vol] 100 mmol/L Normal 97-105 [facility] Comment on above: Performed By: #### C BC, MG1, PHOS, PTT, CMP, PT ####[place] [address], [place] [phone] CO2 [Moles/Vol] 25 mmol/L Normal 22-30 [facility] Comment on above: Performed By: #### C BC, MG1, PHOS, PTT, CMP, PT ####[place] [address], [place] [phone] Creatinine [Mass/Vol] 0.78 mg/dL Normal 0.58-0.96 [facility] Comment on above: Performed By: #### C BC, MG1, PHOS, PTT, CMP, PT ####[facility] [place], [place] [phone] eGFR- Amer. >60 Normal [facility] Comment on above: Performed By: #### C BC, MG1, PHOS, PTT, CMP, PT ####[facility] [place], [place] [phone] eGFR-All Other Races >60 Normal [facility] Comment on above: Result Comment: eGFR [...] C BC, MG1, PHOS, PTT, CMP, PT ####[facility] [place], [place] [phone] Glucose [Mass/Vol] 167 mg/dL High 74-99 [facility] Comment on above: Result Comment: The [place] Diabetes [employer] (ADA) provides guidance for cutoff [...] Standards of Medical Care in Diabetes 2016, [place] [employer]. Diabetes Care. 2016.39(Suppl 1). Performed By: #### C BC, MG1, PHOS, PTT, CMP, PT ####[place] [address], [place] [phone] Potassium [Moles/Vol] 3.9 mmol/L Normal 3.7-5.1 [facility] Comment on above: Performed By: #### C BC, MG1, PHOS, PTT, CMP, PT ####[place] [address] [address] [phone] Protein [Mass/Vol] 6.0 g/dL Low 6.3-8.0 [facility] Comment on above: Performed By: #### C BC, MG1, PHOS, PTT, CMP, PT ####[place] [address], [place] [phone] Sodium [Moles/Vol] 139 mmol/L Normal 136-144 [facility] Comment on above: Performed By: #### C BC, MG1, PHOS, PTT, CMP, PT ####[address], [place] [phone] Urea nitrogen [Mass/Vol] 9 mg/dL Normal 7-21 [facility] Comment on above: Performed By: #### C BC, MG1, PHOS, PTT, CMP, PT ####[address] [phone] GASV + ALLon 04-29-2021 Base Excess 4 mmol/L Normal [facility] Comment on above: Performed By: #### V ALLBG ####[place] [address] [place], [place] [phone] Calcium [Moles/Vol] 1.15 mmol/L Normal 1.08-1.30 [facility] Comment on above: Performed By: #### V ALLBG ####[place] [phone] Carboxyhemoglobin, Ziyad 1.2 % Normal <2.1 [facility] Comment on above: Performed By: #### V ALLBG ####[place] [address] [place] [phone] CO2 [Moles/Vol] 31 mmol/L High 25-29 [facility] Comment on above: Performed By: #### V ALLBG ####[place] [address] [place] [phone] Glucose [Mass/Vol] 178 mg/dL High 60-105 [facility] Comment on above: Performed By: #### V ALLBG ####[place] [address] [place] [phone] HCO3 (Bld) [Moles/Vol] 29 mmol/L High 24-28 [facility] Comment on above: Performed By: #### V ALLBG ####[place] [address] [place] [phone] Lactate [Moles/Vol] 1.3 mmol/L Normal 0.5-2.2 [facility] Comment on above: Performed By: #### V ALLBG ####[place] [address] [place] [phone] Methemoglobin 0.7 % Normal <1.6 [facility] Comment on above: Performed By: #### V ALLBG ####[place] [address] [place] [phone] O2 Administered 40% Normal [facility] Comment on above: Performed By: #### V ALLBG ####[place] [address] [place] [phone] pCO2 51 mm Hg Normal 42-55 [facility] Comment on above: Performed By: #### V ALLBG ####[place] [address], [place] [phone] pCO2, Temp Correct 51 mm Hg Normal 42-55 [facility] Comment on above: Performed By: #### V ALLBG ####[facility], [place] [phone] Potassium [Moles/Vol] 4.0 mmol/L Normal 3.5-5.0 [facility] Comment on above: Performed By: #### V ALLBG ####[facility] [place] [phone] Base Excess 3 mmol/L Normal [facility] Comment on above: Performed By: #### V ALLBG ####[place] [address], [place] [phone] Blood Gas Comm, Ziyad . Normal [facility] Comment on above: Performed By: #### V ALLBG ####[place] [address], [place] [phone] Body temperature 98.6 [degF] Normal [facility] Comment on above: Performed By: #### V ALLBG ####[place] [address], [place] [phone] Calcium [Moles/Vol] 1.18 mmol/L Normal 1.08-1.30 [facility] Comment on above: Performed By: #### V ALLBG ####[place] [address], [place] [phone] Carboxyhemoglobin, Ziyad 0.9 % Normal <2.1 [facility] Comment on above: Performed By: #### V ALLBG ####[facility], [place] [phone] CO2 [Moles/Vol] 30 mmol/L High 25-29 [facility] Comment on above: Performed By: #### V ALLBG ####[place] [address], [place] [phone] Glucose [Mass/Vol] 193 mg/dL High 60-105 [facility] Comment on above: Performed By: #### V ALLBG ####[place] [address], [place] [phone] HCO3 (Bld) [Moles/Vol] 28 mmol/L Normal 24-28 [facility] Comment on above: Performed By: #### V ALLBG ####[place] [address] [place] [phone] Hematocrit (Bld) [Volume fraction] 39.0 % Normal 36.0-46.0 [facility] Comment on above: Performed By: #### V ALLBG ####[place] [address] [phone] Hemoglobin (Bld) [Mass/Vol] 12.7 g/dL Normal 11.5-15.5 [facility] Comment on above: Performed By: #### V ALLBG ####[place] [address] [phone] Lactate [Moles/Vol] 1.6 mmol/L Normal 0.5-2.2 [facility] Comment on above: Performed By: #### V ALLBG ####[place] [address] [place] [phone] Methemoglobin 1.0 % Normal <1.6 [facility] Comment on above: Performed By: #### V ALLBG ####[place] [address], [place] [phone] O2 Administered 30% Normal [facility] Comment on above: Performed By: #### V ALLBG ####[place] [address], [place] [phone] Oxyhemoglobin, Ziyad. 78 % Normal 60-85 [facility] Comment on above: Performed By: #### V ALLBG ####[place] [address], [place] [phone] pCO2 49 mm Hg Normal 42-55 [facility] Comment on above: Performed By: #### V ALLBG ####[place] [address] [place], [place] [phone] pCO2, Temp Correct 49 mm Hg Normal 42-55 [facility] Comment on above: Performed By: #### V ALLBG ####[address] [phone] pH (Bld) 7.38 [pH] Normal 7.32-7.42 [facility] Comment on above: Performed By: #### V ALLBG ####[address] [phone] pH, Temp Corrected 7.38 Normal 7.32-7.42 [facility] Comment on above: Performed By: #### V ALLBG ####[address] [phone] pO2 46 mm Hg High 35-45 [facility] Comment on above: Performed By: #### V ALLBG ####[address] [phone] pO2, Temp Corrected 46 mm Hg High 35-45 [facility] Comment on above: Performed By: #### V ALLBG ####[address] [phone] Potassium [Moles/Vol] 4.3 mmol/L Normal 3.5-5.0 [facility] Comment on above: Performed By: #### V ALLBG ####[address] [phone] Sodium [Moles/Vol] 141 mmol/L Normal 136-144 [facility] Comment on above: Performed By: #### V ALLBG ####[address] [phone] Magnesiumon 04-29-2021 Magnesium [Mass/Vol] 1.8 mg/dL Normal 1.7-2.3 [facility] Comment on above: Performed By: #### C BC, MG1, PHOS, PTT, CMP, PT ####[facility] [place], [place] [phone] NURSING PROGon 04-29-2021 NURSING PROG HNO ID: [id number] Author: Magda Rose RN Service: ? Author Type: Registered Nurse Type: Nursing Progress Note Filed: 04/29/2021 7:45 AM Note Text: Nursing Progress: Topic: RESTRAINT NON-VIOLENT PATIENT NAME: Oscar Pineda PATIENT LOCATION: [place] [address] The patient demonstrates Attempting to Remove Medical [...] TIME: 7:44 AM Diane Rose RN Normal [facility] Phosphoruson 04-29-2021 Phosphate [Mass/Vol] 3.2 mg/dL Normal 2.7-4.8 [facility] Comment on above: Performed By: #### C BC, MG1, PHOS, PTT, CMP, PT ####[facility] [place], [place] [phone] Protimeon 04-29-2021 PT INR 1.0 Normal 0.9-1.3 [facility] Comment on above: Result Comment: Neha min K Antagonist (VKA) Therapeutic Range: INR 2 to 3 (Target INR of 2.5) Note: For patients treated with VKA drugs, such as warfarin, the [place] [employer] 2012 Guideline recommends [...] Chest 2012, 141:7S-47S Daphne PEDERSON et al. [facility] 2017, 70: 252-289 Performed By: #### C BC, MG1, PHOS, PTT, CMP, PT ####[facility] [place], [place] [phone] PT Sec 11.0 sec Normal 9.7-13.0 [facility] Comment on above: Performed By: #### C BC, MG1, PHOS, PTT, CMP, PT ####[facility] [address] [place], [place] [phone] THERAPY NTon 04-29-2021 THERAPY NT HNO ID: [id number] Author: Neela Prasad, PT Service: Physical Therapy Author Type: Physical Therapist Type: Therapy (PT/OT/Speech/Resp) Filed: 04/29/2021 10:05 AM Note Text: Physical Therapy Evaluation SERVICE DATE: 04/29/2021 SERVICE TIME: 907 to 945 ROOM: [place] [address] Recommended Discharge Disposition: Home Recommended Discharge Disposition [...] trunk posture;Step length decreased;Non-functiona l gait speed [facility]: 7: Walk 25 feet or more Learning/Educational [...] Diagnosis: Reduced mobility-other Interventions Provided: Evaluation;Gait Training (15482);Therapeutic Activity (48569) $ Evaluation-Moderate (97354) Billed Units: 1 unit Therapeutic Activity (41041) Treatment Minutes: 8 $ Therapeutic Activity (84338) Billed Units: 1 unit Gait Training (32834) Treatment Minutes: 15 $ Gait Training (05929) Billed Units: 1 unit Training AND education provided in: Bed mobility, Benefits of in-hospital mobility, Discharge planning, Energy conservation, Expected functional level, Gait pattern, reduction of deviations, Positioning, Precautions/restriction s, Role of Physical Therapy, Sitting balance, Standing balance, Transfers, Treatment protocol, Equipment, Assistive device use The following therapeutic skills were used: Activity dosing, Assessment of tolerance includi (more content not included)... Normal [facility] Type and Screenon 04-29-2021 ABO/RH(D) Positive Normal [facility] Comment on above: Performed By: #### T SCR ####[facility] [address] [place], [place] [phone] APTTon 04-28-2021 aPTT Coag (Bld) [Time] 26.6 s Normal 23.0-32.4 [facility] Comment on above: Result Comment: Unfr [...] laboratory APTT reagent in use throughout the [facility]. Performed By: #### P T, PTT, TRIG, CMP, CBC, MG1, PHOS ####[place] [address] [place], [place] [phone] Blood Cultureon 04-28-2021 Bacteria identified Cx Nom (Bld) Culture Result - No growth 5 days Normal [facility] Comment on above: Performed By: #### B LCUL ####[address] [phone] Bacteria identified Cx Nom (Bld) Culture Result - No growth 5 days Normal [facility] Comment on above: Performed By: #### B LCUL ####[address] [phone] CBCon 04-28-2021 Absolute nRBC <0.01 Normal <0.01 [facility] Comment on above: Performed By: #### P T, PTT, TRIG, CMP, CBC, MG1, PHOS ####[address] [phone] Erythrocyte distribution width (RBC) [Ratio] 12.4 % Normal 11.5-15.0 [facility] Comment on above: Performed By: #### P T, PTT, TRIG, CMP, CBC, MG1, PHOS ####[address] [phone] Hematocrit (Bld) [Volume fraction] 36.1 % Normal 36.0-46.0 [facility] Comment on above: Performed By: #### P T, PTT, TRIG, CMP, CBC, MG1, PHOS ####[address] [phone] Hemoglobin (Bld) [Mass/Vol] 11.8 g/dL Normal 11.5-15.5 [facility] Comment on above: Performed By: #### P T, PTT, TRIG, CMP, CBC, MG1, PHOS ####[place] [address], [place] [phone] MCH 30.9 pG Normal 26.0-34.0 [facility] Comment on above: Performed By: #### P T, PTT, TRIG, CMP, CBC, MG1, PHOS ####[address] [phone] MCHC (RBC) [Mass/Vol] 32.7 g/dL Normal 30.5-36.0 [facility] Comment on above: Performed By: #### P T, PTT, TRIG, CMP, CBC, MG1, PHOS ####[address] [phone] MCV (RBC) [Entitic vol] 94.5 fL Normal 80.0-100.0 [facility] Comment on above: Performed By: #### P T, PTT, TRIG, CMP, CBC, MG1, PHOS ####[address] [phone] Platelet mean volume (Bld) [Entitic vol] 9.8 fL Normal 9.0-12.7 [facility] Comment on above: Performed By: #### P T, PTT, TRIG, CMP, CBC, MG1, PHOS ####[address] [phone] Platelets (Bld) [#/Vol] 178 10*3/uL Normal 150-400 [facility] Comment on above: Performed By: #### P T, PTT, TRIG, CMP, CBC, MG1, PHOS ####[address] [phone] RBC (Bld) [#/Vol] 3.82 10*6/uL Low 3.90-5.20 [facility] Comment on above: Performed By: #### P T, PTT, TRIG, CMP, CBC, MG1, PHOS ####[place] [address] [place], [place] [phone] WBC (Bld) [#/Vol] 11.29 10*3/uL High 3.70-11.00 [facility] Comment on above: Performed By: #### P T, PTT, TRIG, CMP, CBC, MG1, PHOS ####[facility] [place], [place] [phone] CT ABD/PEL W IVCONon 021 CT ABD/PEL W IVCON * * *Final Report* * * DATE OF EXAM: Apr 28 2021 2:10PM [facility] [place] ABD/PEL W IVCON / [...] chest CT performed will be reported separately. Continuous Vulcanizing Machine Operator (topogram) images: No additional findings. IMPRESSION: Resolution of intravenous gas within the abdomen and pelvis. 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 Senior Executive Compensation Analyst: PSCB Transcribe Date/Time: Apr 28 2021 2:50P Dictated by : KASHMIR RIVERA MD This examination was interpreted and the report reviewed and electronically signed by: ELIAS WOODY MD on Apr 28 2021 4:13PM EST [id number] Normal [facility] CT CHEST W IVCONon 1 CT CHEST W IVCON * * *Final Report* * * DATE OF EXAM: Apr 28 2021 2:10PM [facility] CHEST W IVCON / [...] There is minimal intrahepatic biliary ductal dilation. Continuous Vulcanizing Machine Operator (topogram) images: No additional findings. IMPRESSION: 1. No CT evidence of air embolism within the systemic veins, right-sided heart chambers, central pulmonary arteries and hepatic veins. 2. Posterior complete LEFT lower lobe, partially dependent RIGHT lower lobe and dependent LEFT upper lobe atelectasis. Given the distribution, this finding may be related to aspiration. Trace bilateral pleural effusions. Senior Executive Compensation Analyst: ANEL Transcribe Date/Time: Apr 28 2021 3:35P Dictated by : MICHELLE PETERSEN MD This examination was interpreted and the report reviewed and electronically signed by: MICHELLE PETERSEN MD on Apr 28 2021 3:45PM EST [id number] Normal [facility] Comp Metabolic Panelon 04-28 Albumin [Mass/Vol] 3.0 g/dL Low 3.9-4.9 [facility] Comment on above: Performed By: #### P T, PTT, TRIG, CMP, CBC, MG1, PHOS ####[facility] [address] [place], [place] [phone] ALP [Catalytic activity/Vol] 36 U/L Normal 34-123 [facility] Comment on above: Performed By: #### P T, PTT, TRIG, CMP, CBC, MG1, PHOS ####[facility] [place], [place] [phone] ALT [Catalytic activity/Vol] 32 U/L Normal 7-38 [facility] Comment on above: Performed By: #### P T, PTT, TRIG, CMP, CBC, MG1, PHOS ####[place] [address], [place] [phone] Anion gap [Moles/Vol] 10 mmol/L Normal 9-18 [facility] Comment on above: Performed By: #### P T, PTT, TRIG, CMP, CBC, MG1, PHOS ####[address] [phone] AST [Catalytic activity/Vol] 102 U/L High 13-35 [facility] Comment on above: Performed By: #### P T, PTT, TRIG, CMP, CBC, MG1, PHOS ####[address] [place], [place] [phone] Bilirubin [Mass/Vol] 0.3 mg/dL Normal 0.2-1.3 [facility] Comment on above: Performed By: #### P T, PTT, TRIG, CMP, CBC, MG1, PHOS ####[address] [phone] Calcium [Mass/Vol] 7.9 mg/dL Low 8.5-10.2 [facility] Comment on above: Performed By: #### P T, PTT, TRIG, CMP, CBC, MG1, PHOS ####[address] [phone] Chloride [Moles/Vol] 107 mmol/L High 97-105 [facility] Comment on above: Performed By: #### P T, PTT, TRIG, CMP, CBC, MG1, PHOS ####[place] [address], [place] [phone] CO2 [Moles/Vol] 25 mmol/L Normal 22-30 [facility] Comment on above: Performed By: #### P T, PTT, TRIG, CMP, CBC, MG1, PHOS ####[place] [address], [place] [phone] Creatinine [Mass/Vol] 0.85 mg/dL Normal 0.58-0.96 [facility] Comment on above: Performed By: #### P T, PTT, TRIG, CMP, CBC, MG1, PHOS ####[facility] [place] [address] [phone] eGFR- Amer. >60 Normal [facility] Comment on above: Performed By: #### P T, PTT, TRIG, CMP, CBC, MG1, PHOS ####[facility] [place] [address] [phone] eGFR-All Other Races >60 Normal [facility] Comment on above: Result Comment: eGFR [...] T, PTT, TRIG, CMP, CBC, MG1, PHOS ####[facility] [place] [address] [phone] Glucose [Mass/Vol] 86 mg/dL Normal 74-99 [facility] Comment on above: Result Comment: The [place] [employer] (ADA) provides guidance for cutoff [...] Standards of Medical Care in Diabetes 2016, [place] [employer]. Diabetes Care. 2016.39(Suppl 1). Performed By: #### P T, PTT, TRIG, CMP, CBC, MG1, PHOS ####[address] [phone] Potassium [Moles/Vol] 3.8 mmol/L Normal 3.7-5.1 [facility] Comment on above: Performed By: #### P T, PTT, TRIG, CMP, CBC, MG1, PHOS ####[address] [phone] Protein [Mass/Vol] 5.2 g/dL Low 6.3-8.0 [facility] Comment on above: Performed By: #### P T, PTT, TRIG, CMP, CBC, MG1, PHOS ####[address] [phone] Sodium [Moles/Vol] 142 mmol/L Normal 136-144 [facility] Comment on above: Performed By: #### P T, PTT, TRIG, CMP, CBC, MG1, PHOS ####[address] [phone] Urea nitrogen [Mass/Vol] 15 mg/dL Normal 7-21 [facility] Comment on above: Performed By: #### P T, PTT, TRIG, CMP, CBC, MG1, PHOS ####[address] [phone] GASV + ALLon 04-28-2021 Base Excess 2 mmol/L Normal [facility] Comment on above: Performed By: #### V ALLBG ####[address] [phone] Blood Gas Comm, Ziyad . Normal [facility] Comment on above: Performed By: #### V ALLBG ####[address] [phone] Body temperature 98.6 [degF] Normal [facility] Comment on above: Performed By: #### V ALLBG ####[place] [address], [place] [phone] Calcium [Moles/Vol] 1.18 mmol/L Normal 1.08-1.30 [facility] Comment on above: Performed By: #### V ALLBG ####[place] [address] [place], [place] [phone] Carboxyhemoglobin, Ziyad 0.7 % Normal <2.1 [facility] Comment on above: Performed By: #### V ALLBG ####[address] [phone] CO2 [Moles/Vol] 30 mmol/L High 25-29 [facility] Comment on above: Performed By: #### V ALLBG ####[place] [address] [place], [place] [phone] Glucose [Mass/Vol] 90 mg/dL Normal 60-105 [facility] Comment on above: Performed By: #### V ALLBG ####[place] [address] [place], [place] [phone] HCO3 (Bld) [Moles/Vol] 29 mmol/L High 24-28 [facility] Comment on above: Performed By: #### V ALLBG ####[place] [address] [place], [place] [phone] Hematocrit (Bld) [Volume fraction] 37.7 % Normal 36.0-46.0 [facility] Comment on above: Performed By: #### V ALLBG ####[place] [address] [place], [place] [phone] Hemoglobin (Bld) [Mass/Vol] 12.3 g/dL Normal 11.5-15.5 [facility] Comment on above: Performed By: #### V ALLBG ####[facility] [place] [phone] Lactate [Moles/Vol] 0.9 mmol/L Normal 0.5-2.2 [facility] Comment on above: Performed By: #### V ALLBG ####[place] [address] [address] [place] [phone] Methemoglobin 1.5 % Normal <1.6 [facility] Comment on above: Performed By: #### V ALLBG ####[place] [address] [address] [place] [phone] O2 Administered 100% Normal [facility] Comment on above: Performed By: #### V ALLBG ####[place] [address] [address] [place] [phone] Oxyhemoglobin, Ziyad. 83 % Normal 60-85 [facility] Comment on above: Performed By: #### V ALLBG ####[place] [address] [address] [place] [phone] pCO2 57 mm Hg High 42-55 [facility] Comment on above: Performed By: #### V ALLBG ####[place] [address] [address] [place] [phone] pCO2, Temp Correct 57 mm Hg High 42-55 [facility] Comment on above: Performed By: #### V ALLBG ####[place] [address] [address] [phone] pH (Bld) 7.32 [pH] Normal 7.32-7.42 [facility] Comment on above: Performed By: #### V ALLBG ####[place] [id number] [place] [phone] pH, Temp Corrected 7.32 Normal 7.32-7.42 [facility] Comment on above: Performed By: #### V ALLBG ####[facility] [place], [place] [phone] pO2 54 mm Hg High 35-45 [facility] Comment on above: Performed By: #### V ALLBG ####[place] [id number] [place], [place] [phone] pO2, Temp Corrected 54 mm Hg High 35-45 [facility] Comment on above: Performed By: #### V ALLBG ####[address] [phone] Potassium [Moles/Vol] 3.8 mmol/L Normal 3.5-5.0 [facility] Comment on above: Performed By: #### V ALLBG ####[address] [phone] Sodium [Moles/Vol] 142 mmol/L Normal 136-144 [facility] Comment on above: Performed By: #### V ALLBG ####[facility] [place] [address] [phone] Magnesiumon 04-28-2021 Magnesium [Mass/Vol] 2.0 mg/dL Normal 1.7-2.3 [facility] Comment on above: Performed By: #### P T, PTT, TRIG, CMP, CBC, MG1, PHOS ####[address] [phone] NURSING PROGon 04-28-2021 NURSING PROG HNO ID: [id number] Author: Laura Mullins RN Service: ? Author Type: Registered Nurse Type: Nursing Progress Note Filed: 04/28/2021 8:01 PM Note Text: Nursing Progress: Topic: RESTRAINT NON-VIOLENT PATIENT NAME: Oscar Pineda PATIENT LOCATION: [place] [address] The patient demonstrates Attempting to Remove Medical [...] 2021 TIME: 8:01 PM Laura Mullins RN [facility] NURSING PROG HNO ID: [id number] Author: Rob Guerra RN Service: Radiology Author [...] DATE: April 28, 2021 TIME: 2:08 PM [facility] NURSING PROG HNO ID: [id number] Author: Yumiko Molina RN Service: ? Author Type: Registered Nurse Type: Nursing Progress Note Filed: 04/28/2021 2:57 PM Note Text: Nursing Progress Note Patient Name: Oscar Pineda Patient Location: [place] [address] 1200 IR at bedside, advised transfer to CT table while still in trendelenburg trial patient supine, still in trendelenburg. Tolerating [address], notified of positioning requirements 1345 HEALTH AND SAFETY TECHNICIAN, resident, two RT's, and two RN's at bedside for transport. Pt on telemetry/ continuous monitoring. CT and IR LIP notified. [address] imaging table, trendelenburg positioning maintained [address] and gave verbal OK to transition HOB flat then elevated (as tolerated) 1420 patient in SICU, HOB flat. Tolerating This note was completed by: Yumiko Molina Normal [facility] NURSING PROG HNO ID: [id number] Author: Yumiko Molina RN Service: ? Author Type: Registered Nurse Type: Nursing Progress Note Filed: 04/28/2021 1:22 PM Note Text: Nursing Progress: Topic: RESTRAINT NON-VIOLENT PATIENT NAME: Oscar Pineda PATIENT LOCATION: [place] [address] The patient demonstrates Attempting to Remove Medical Devices Vital to Medical Stability as evidenced by the following behaviors attempting to remove medical lab technologist which pose an imminent danger to self [...] 2021 TIME: 8:00AM Yumiko Molina RN Normal [facility] Phosphoruson 04-28-2021 Phosphate [Mass/Vol] 2.3 mg/dL Low 2.7-4.8 [facility] Comment on above: Performed By: #### P T, PTT, TRIG, CMP, CBC, MG1, PHOS ####[facility] [address] [place], [place] [phone] Protimeon 04-28-2021 PT INR 1.0 Normal 0.9-1.3 [facility] Comment on above: Result Comment: Neha min K Antagonist (VKA) Therapeutic Range: INR 2 to 3 (Target INR of 2.5) Note: For patients treated with VKA drugs, such as warfarin, the [place] [employer] 2012 Guideline recommends [...] T, PTT, TRIG, CMP, CBC, MG1, PHOS ####[place] [id number] [place], [place] [phone] PT Sec 11.0 sec Normal 9.7-13.0 [facility] Comment on above: Performed By: #### P T, PTT, TRIG, CMP, CBC, MG1, PHOS ####[facility] [place], [place] [phone] Respiratory Cult/Stainon Respiratory Cult/Stain Sp. Request/Comment: - Specimen received in sterile container. Smear Result - Rare Mixed oral kaylynn Many Polymorphonuclear leukocytes Rare Epithelial cells Culture Result - Few Staphylococcus aureus --> ABNORMAL ALERT Insignificant colony count. No further workup. --> ABNORMAL ALERT Few Normal respiratory kaylynn present Critically abnormal [facility] Comment on above: Performed By: #### R CULST ####[address] [phone] Triglycerideon 04-28-2021 Fasting Time Unknown Normal [facility] Comment on above: Performed By: #### P T, PTT, TRIG, CMP, CBC, MG1, PHOS ####[facility] [place], [place] [phone] Triglyceride [Mass/Vol] 155 mg/dL High <150 [facility] Comment on above: Result Comment: <150 mg/dL, Normal 150-199 mg/dL, Borderline high 200-499 mg/dL, High >499 mg/dL, Very high Reference: 1. National Cholesterol Education Program ATP III Guideline At-A-Glance Quick Desk Reference: National Heart, Lung, and Blood [place]. National Institutes of Health. 2001: NIH Publication No. 01-3305. Performed By: #### P T, PTT, TRIG, CMP, CBC, MG1, PHOS ####[address] [phone] Urinalysison 04-28-2021 Bilirubin, Urine Negative Normal Negative [facility] Comment on above: Performed By: #### U A ####[place] [address] [place] [phone] Clarity (U) Clear Normal Clear [facility] Comment on above: Performed By: #### U A ####[place] [address] [place] [phone] Color (U) Light Yellow Critically abnormal Yellow [facility] Comment on above: Performed By: #### U A ####[place] [address] [place] [phone] Comments SEE COMMENT Normal [facility] Comment on above: Result Comment: Micr oscopic not warranted Performed By: #### U A ####[place] [address] [place] [phone] Glucose Ql (U) Negative Normal Negative [facility] Comment on above: Performed By: #### U A ####[place] [address] [place] [address] [place] [phone] Hemoglobin/Blood,U r Negative Normal Negative [facility] Comment on above: Performed By: #### U A ####[place] [address] [place] [phone] Ketones Ql (U) 1+ Critically abnormal Negative [facility] Comment on above: Performed By: #### U A ####[place] [address] [address] [place] [phone] Leukest Negative Normal Negative [facility] Comment on above: Performed By: #### U A ####[place] [address] [address] [place] [phone] Nitrite Ql (U) Negative Normal Negative [facility] Comment on above: Performed By: #### U A ####[place] [address] [place] [place] [phone] pH (U) 5.0 [pH] Normal 5.0-8.0 [facility] Comment on above: Performed By: #### U A ####[place] [address] [place], [place] [phone] Protein, Urine Negative Normal Negative [facility] Comment on above: Performed By: #### U A ####[address] [phone] Specific [place], Ur 1.023 Normal 1.005-1.030 [facility] Comment on above: Performed By: #### U A ####[place] [address] [place], [place] [phone] Urine Karl Comment SEE COMMENT Normal [facility] Comment on above: Result Comment: N/A Performed By: #### U A ####[place] [address] [place], [place] [phone] Urobilinogen (U) [Mass/Vol] Negative Normal Negative [facility] Comment on above: Performed By: #### U A ####[place] [address] [place], [place] [phone] APTTon 04-27-2021 aPTT Coag (Bld) [Time] 21.9 s Low 23.0-32.4 [facility] Comment on above: Result Comment: Unfr [...] laboratory APTT reagent in use throughout the [facility]. Performed By: #### P HOS, CMP, PTT, CBC, MG1, PT ####[place] [address] [place], [place] [phone] CBCon 04-27-2021 Absolute nRBC <0.01 Normal <0.01 [facility] Comment on above: Performed By: #### P HOS, CMP, PTT, CBC, MG1, PT ####[place] [address] [address], [place] [phone] Erythrocyte distribution width (RBC) [Ratio] 11.9 % Normal 11.5-15.0 [facility] Comment on above: Performed By: #### P HOS, CMP, PTT, CBC, MG1, PT ####[place] [address] [address], [place] [phone] Hematocrit (Bld) [Volume fraction] 39.3 % Normal 36.0-46.0 [facility] Comment on above: Performed By: #### P HOS, CMP, PTT, CBC, MG1, PT ####[place] [address] [place], [place] [phone] Hemoglobin (Bld) [Mass/Vol] 13.3 g/dL Normal 11.5-15.5 [facility] Comment on above: Performed By: #### P HOS, CMP, PTT, CBC, MG1, PT ####[place] [address] [place], [place] [phone] MCH 31.0 pG Normal 26.0-34.0 [facility] Comment on above: Performed By: #### P HOS, CMP, PTT, CBC, MG1, PT ####[address], [place] [phone] MCHC (RBC) [Mass/Vol] 33.8 g/dL Normal 30.5-36.0 [facility] Comment on above: Performed By: #### P HOS, CMP, PTT, CBC, MG1, PT ####[place] [address] [address], [place] [phone] MCV (RBC) [Entitic vol] 91.6 fL Normal 80.0-100.0 [facility] Comment on above: Performed By: #### P HOS, CMP, PTT, CBC, MG1, PT ####[place] [address] [address], [place] [phone] Platelet mean volume (Bld) [Entitic vol] 9.8 fL Normal 9.0-12.7 [facility] Comment on above: Performed By: #### P HOS, CMP, PTT, CBC, MG1, PT ####[place] [address] [address], [place] [phone] Platelets (Bld) [#/Vol] 242 10*3/uL Normal 150-400 [facility] Comment on above: Performed By: #### P HOS, CMP, PTT, CBC, MG1, PT ####[address], [place] [phone] RBC (Bld) [#/Vol] 4.29 10*6/uL Normal 3.90-5.20 [facility] Comment on above: Performed By: #### P HOS, CMP, PTT, CBC, MG1, PT ####[address] [phone] WBC (Bld) [#/Vol] 17.39 10*3/uL High 3.70-11.00 [facility] Comment on above: Performed By: #### P HOS, CMP, PTT, CBC, MG1, PT ####[place] [address] [place], [place] [phone] Comp Metabolic Panelon 04-27 Albumin [Mass/Vol] 3.9 g/dL Normal 3.9-4.9 [facility] Comment on above: Performed By: #### P HOS, CMP, PTT, CBC, MG1, PT ####[address], [place] [phone] ALP [Catalytic activity/Vol] 41 U/L Normal 34-123 [facility] Comment on above: Performed By: #### P HOS, CMP, PTT, CBC, MG1, PT ####[place] [address] [address], [place] [phone] ALT [Catalytic activity/Vol] 26 U/L Normal 7-38 [facility] Comment on above: Performed By: #### P HOS, CMP, PTT, CBC, MG1, PT ####[place] [address] [address], [place] [phone] Anion gap [Moles/Vol] 10 mmol/L Normal 9-18 [facility] Comment on above: Performed By: #### P HOS, CMP, PTT, CBC, MG1, PT ####[place] [address] [place], [place] [phone] AST [Catalytic activity/Vol] 63 U/L High 13-35 [facility] Comment on above: Performed By: #### P HOS, CMP, PTT, CBC, MG1, PT ####[place] [address] [place], [place] [phone] Bilirubin [Mass/Vol] 0.5 mg/dL Normal 0.2-1.3 [facility] Comment on above: Performed By: #### P HOS, CMP, PTT, CBC, MG1, PT ####[address] [place], [place] [phone] Calcium [Mass/Vol] 8.6 mg/dL Normal 8.5-10.2 [facility] Comment on above: Performed By: #### P HOS, CMP, PTT, CBC, MG1, PT ####[place] [address] [address], [place] [phone] Chloride [Moles/Vol] 109 mmol/L High 97-105 [facility] Comment on above: Performed By: #### P HOS, CMP, PTT, CBC, MG1, PT ####[place] [address] [address], [place] [phone] CO2 [Moles/Vol] 23 mmol/L Normal 22-30 [facility] Comment on above: Performed By: #### P HOS, CMP, PTT, CBC, MG1, PT ####[facility] [place], [place] [phone] Creatinine [Mass/Vol] 0.76 mg/dL Normal 0.58-0.96 [facility] Comment on above: Performed By: #### P HOS, CMP, PTT, CBC, MG1, PT ####[address] [phone] eGFR- Amer. >60 Normal [facility] Comment on above: Performed By: #### P HOS, CMP, PTT, CBC, MG1, PT ####[address] [phone] eGFR-All Other Races >60 Normal [facility] Comment on above: Result Comment: eGFR [...] P HOS, CMP, PTT, CBC, MG1, PT ####[address] [phone] Glucose [Mass/Vol] 119 mg/dL High 74-99 [facility] Comment on above: Result Comment: The [place] [employer] (ADA) provides guidance for cutoff [...] Standards of Medical Care in Diabetes 2016, [place] [employer]. Diabetes Care. 2016.39(Suppl 1). Performed By: #### P HOS, CMP, PTT, CBC, MG1, PT ####[address] [phone] Potassium [Moles/Vol] 4.0 mmol/L Normal 3.7-5.1 [facility] Comment on above: Performed By: #### P HOS, CMP, PTT, CBC, MG1, PT ####[address] [phone] Protein [Mass/Vol] 5.9 g/dL Low 6.3-8.0 [facility] Comment on above: Performed By: #### P HOS, CMP, PTT, CBC, MG1, PT ####[address] [phone] Sodium [Moles/Vol] 142 mmol/L Normal 136-144 [facility] Comment on above: Performed By: #### P HOS, CMP, PTT, CBC, MG1, PT ####[address] [phone] Urea nitrogen [Mass/Vol] 13 mg/dL Normal 7-21 [facility] Comment on above: Performed By: #### P HOS, CMP, PTT, CBC, MG1, PT ####[address] [phone] GASV + ALLon 04-27-2021 Base Excess 1 mmol/L Normal [facility] Comment on above: Performed By: #### V ALLBG ####[address] [phone] Blood Gas Comm, Ziyad . Normal [facility] Comment on above: Performed By: #### V ALLBG ####[place] [address] [place], [place] [phone] Body temperature 98.6 [degF] Normal [facility] Comment on above: Performed By: #### V ALLBG ####[place] [address] [place], [place] [phone] Calcium [Moles/Vol] 1.21 mmol/L Normal 1.08-1.30 [facility] Comment on above: Performed By: #### V ALLBG ####[place] [phone] Carboxyhemoglobin, Ziyad 0.7 % Normal <2.1 [facility] Comment on above: Performed By: #### V ALLBG ####[place] [address] [place] [phone] CO2 [Moles/Vol] 29 mmol/L Normal 25-29 [facility] Comment on above: Performed By: #### V ALLBG ####[place] [address] [place], [place] [phone] Glucose [Mass/Vol] 97 mg/dL Normal 60-105 [facility] Comment on above: Performed By: #### V ALLBG ####[place] [address] [place], [place] [phone] HCO3 (Bld) [Moles/Vol] 27 mmol/L Normal 24-28 [facility] Comment on above: Performed By: #### V ALLBG ####[place] [address] [place], [place] [phone] Hematocrit (Bld) [Volume fraction] 38.2 % Normal 36.0-46.0 [facility] Comment on above: Performed By: #### V ALLBG ####[place] [address] [place], [place] [phone] Hemoglobin (Bld) [Mass/Vol] 12.4 g/dL Normal 11.5-15.5 [facility] Comment on above: Performed By: #### V ALLBG ####[place] [address] [address] [place] [phone] Lactate [Moles/Vol] 1.1 mmol/L Normal 0.5-2.2 [facility] Comment on above: Performed By: #### V ALLBG ####[place] [address] [address] [phone] Methemoglobin 0.7 % Normal <1.6 [facility] Comment on above: Performed By: #### V ALLBG ####[place] [address] [place] [phone] O2 Administered 100% Normal [facility] Comment on above: Performed By: #### V ALLBG ####[place] [address] [place] [phone] Oxyhemoglobin, Ziyad. 92 % High 60-85 [facility] Comment on above: Performed By: #### V ALLBG ####[place] [address] [place] [phone] pCO2 53 mm Hg Normal 42-55 [facility] Comment on above: Performed By: #### V ALLBG ####[place] [address] [address] [phone] pCO2, Temp Correct 53 mm Hg Normal 42-55 [facility] Comment on above: Performed By: #### V ALLBG ####[place] [address] [address] [phone] pH (Bld) 7.33 [pH] Normal 7.32-7.42 [facility] Comment on above: Performed By: #### V ALLBG ####[place] [address] [address] [phone] pH, Temp Corrected 7.33 Normal 7.32-7.42 [facility] Comment on above: Performed By: #### V ALLBG ####[place] [address], [place] [phone] pO2 70 mm Hg High 35-45 [facility] Comment on above: Performed By: #### V ALLBG ####[place] [address] [address] [phone] pO2, Temp Corrected 70 mm Hg High 35-45 [facility] Comment on above: Performed By: #### V ALLBG ####[place] [address] [place], [place] [phone] Potassium [Moles/Vol] 3.9 mmol/L Normal 3.5-5.0 [facility] Comment on above: Performed By: #### V ALLBG ####[place] [address] [place] [phone] Sodium [Moles/Vol] 143 mmol/L Normal 136-144 [facility] Comment on above: Performed By: #### V ALLBG ####[place] [address] [place] [phone] Base Excess 0 mmol/L Normal [facility] Comment on above: Performed By: #### V ALLBG ####[place] [address] [place] [place], [place] [phone] Blood Gas Comm, Ziyad . Normal [facility] Comment on above: Performed By: #### V ALLBG ####[place] [address] [address], [place] [phone] Body temperature 98.6 [degF] Normal [facility] Comment on above: Performed By: #### V ALLBG ####[place] [address] [place] [place], [place] [phone] Calcium [Moles/Vol] 1.22 mmol/L Normal 1.08-1.30 [facility] Comment on above: Performed By: #### V ALLBG ####[place] [address] [place], [place] [phone] Carboxyhemoglobin, Ziyad 0.6 % Normal <2.1 [facility] Comment on above: Performed By: #### V ALLBG ####[place] [address] [place], [place] [phone] CO2 [Moles/Vol] 27 mmol/L Normal 25-29 [facility] Comment on above: Performed By: #### V ALLBG ####[place] [address] [place], [place] [phone] Glucose [Mass/Vol] 130 mg/dL High 60-105 [facility] Comment on above: Performed By: #### V ALLBG ####[place] [address] [place], [place] [phone] HCO3 (Bld) [Moles/Vol] 26 mmol/L Normal 24-28 [facility] Comment on above: Performed By: #### V ALLBG ####[place] [address] [place], [place] [phone] Hematocrit (Bld) [Volume fraction] 42.7 % Normal 36.0-46.0 [facility] Comment on above: Performed By: #### V ALLBG ####[place] [address] [place] [place], [place] [phone] Hemoglobin (Bld) [Mass/Vol] 13.9 g/dL Normal 11.5-15.5 [facility] Comment on above: Performed By: #### V ALLBG ####[place] [address] [place], [place] [phone] Lactate [Moles/Vol] 1.3 mmol/L Normal 0.5-2.2 [facility] Comment on above: Performed By: #### V ALLBG ####[place] [address] [address], [place] [phone] Methemoglobin 1.1 % Normal <1.6 [facility] Comment on above: Performed By: #### V ALLBG ####[place] [address] [address], [place] [phone] O2 Administered 100% Normal [facility] Comment on above: Performed By: #### V ALLBG ####[place] [address] [address] [phone] Oxyhemoglobin, Ziyad. 88 % High 60-85 [facility] Comment on above: Performed By: #### V ALLBG ####[place] [address] [place] [phone] pCO2 49 mm Hg Normal 42-55 [facility] Comment on above: Performed By: #### V ALLBG ####[place] [address] [address] [phone] pCO2, Temp Correct 49 mm Hg Normal 42-55 [facility] Comment on above: Performed By: #### V ALLBG ####[place] [address] [place] [place], [place] [phone] pH (Bld) 7.34 [pH] Normal 7.32-7.42 [facility] Comment on above: Performed By: #### V ALLBG ####[place] [address] [address], [place] [phone] pH, Temp Corrected 7.34 Normal 7.32-7.42 [facility] Comment on above: Performed By: #### V ALLBG ####[place] [address] [address], [place] [phone] pO2 64 mm Hg High 35-45 [facility] Comment on above: Performed By: #### V ALLBG ####[place] [address] [address], [place] [phone] pO2, Temp Corrected 64 mm Hg High 35-45 [facility] Comment on above: Performed By: #### V ALLBG ####[place] [address] [place], [place] [phone] Potassium [Moles/Vol] 4.1 mmol/L Normal 3.5-5.0 [facility] Comment on above: Performed By: #### V ALLBG ####[address] [phone] Sodium [Moles/Vol] 142 mmol/L Normal 136-144 [facility] Comment on above: Performed By: #### V ALLBG ####[address] [phone] Magnesiumon 04-27-2021 Magnesium [Mass/Vol] 2.2 mg/dL Normal 1.7-2.3 [facility] Comment on above: Performed By: #### P HOS, CMP, PTT, CBC, MG1, PT ####[address] [phone] NURSING PROGon 04-27-2021 NURSING PROG HNO ID: [id number] Author: Jack Richards RN Service: Nursing Author Type: Registered Nurse Type: Nursing Progress Note Filed: 04/27/2021 10:46 PM Note Text: Nursing Progress: Topic: RESTRAINT NON-VIOLENT PATIENT NAME: Oscar Pineda PATIENT LOCATION: [place] [address]/[place] [address] The patient demonstrates Lack of Understanding/Ability to [...] TIME: 10:00 PM Jack Richards RN Normal [facility] NURSING PROG HNO ID: [id number] Author: Karsten Goldsmith RN Service: Nursing Author Type: Registered Nurse Type: Nursing Progress Note Filed: 04/27/2021 8:51 AM Note Text: Nursing Progress: Topic: RESTRAINT NON-VIOLENT PATIENT NAME: Oscar Pineda PATIENT LOCATION: [place] [address] The patient demonstrates Lack of Understanding/Ability to [...] TIME: 8:51 AM Karsten Goldsmith RN Normal [facility] Phosphoruson 04-27-2021 Phosphate [Mass/Vol] 3.3 mg/dL Normal 2.7-4.8 [facility] Comment on above: Performed By: #### P HOS, CMP, PTT, CBC, MG1, PT ####[facility] [address] [place], [place] [phone] Protimeon 04-27-2021 PT INR 1.1 Normal 0.9-1.3 [facility] Comment on above: Result Comment: Neha min K Antagonist (VKA) Therapeutic Range: INR 2 to 3 (Target INR of 2.5) Note: For patients treated with VKA drugs, such as warfarin, the [place] [employer] 2012 Guideline recommends [...] Chest 2012, 141:7S-47S Daphne RA, et al. [facility] 2017, 70: 252-289 Performed By: #### P HOS, CMP, PTT, CBC, MG1, PT ####[facility] [place], [place] [phone] PT Sec 11.2 sec Normal 9.7-13.0 [facility] Comment on above: Performed By: #### P HOS, CMP, PTT, CBC, MG1, PT ####[facility] [place], [place] [phone] US ABDOMEN LTDon 04-27-2021 US ABDOMEN LTD * * *Final Report* * * DATE OF EXAM: Apr 27 2021 12:24PM [facility] [place]BDOMEN [...] within the hepatic veins or visualized IVC. Senior Executive Compensation Analyst: ANEL Transcribe Date/Time: Apr 27 2021 12:34P Dictated by : POONAM BLUM MD This examination was interpreted and the report reviewed and electronically signed by: ALICIA MENDOZA MD on Apr 27 2021 2:57PM EST [id number] Normal [facility] XR CHEST 1V FRONTALon 2020 XR [...] cardiomediastinal silhouette. Other: . IMPRESSION: See result. Senior Executive Compensation Analyst: PSCKb Transcribe Date/Time: Apr 27 2021 10:29A Dictated by : TAYLOR CORONA MD This examination was interpreted and the report reviewed and electronically signed by: TAYLOR CORONA MD on Apr 27 2021 10:31AM EST [id number] Normal [facility] ANES Sachin 04-26-2021 ANES POST HNO ID: [id number] Author: Tamara Brown DO Service: Anesthesiology Author [...] 26, 2021 TIME: 2:26 PM PAGER/CONTACT #: [phone] Normal [facility] APTTon 04-26-2021 aPTT Coag (Bld) [Time] 22.2 s Low 23.0-32.4 [facility] Comment on above: Result Comment: Unfr [...] laboratory APTT reagent in use throughout the [facility]. Performed By: #### C BC, MG1, PT, PTT, BMP, PHOS ####[facility] [place], [place] [phone] BRIEF OP NOTon 04-26-2021 BRIEF OP NOT HNO ID: [id number] Author: Kayce Wagner MD Service: Radiology Author Type: Physician Type: Brief Op Note Filed: 04/26/2021 3:28 PM Note Text: BRIEF OPERATIVE / PROCEDURE NOTE LOG ID: [id number] SURGERY/PROCEDURE DATE: 04/26/2021 INCISION/PROCEDURE START TIME: 9:25 AM INCISION CLOSE/PROCEDURE END TIME: 11:20 AM SURGEON(S)/PROCEDURALIS T(S) AND CUTTER FINISHER(S): Surgeon(s) and Role: * Kayce Wagner MD [...] DATE: April 26, 2021 TIME: 2:59 PM [phone] Normal [facility] Basic Metabolic Panlon 04-26 Anion gap [Moles/Vol] 11 mmol/L Normal 9-18 [facility] Comment on above: Performed By: #### C BC, MG1, PT, PTT, BMP, PHOS ####[facility] [place], [place] [phone] Calcium [Mass/Vol] 8.3 mg/dL Low 8.5-10.2 [facility] Comment on above: Performed By: #### C BC, MG1, PT, PTT, BMP, PHOS ####[place] [address] [place] [address] [place] [phone] Chloride [Moles/Vol] 107 mmol/L High 97-105 [facility] Comment on above: Performed By: #### C BC, MG1, PT, PTT, BMP, PHOS ####[place] [address] [address] [place] [phone] CO2 [Moles/Vol] 22 mmol/L Normal 22-30 [facility] Comment on above: Performed By: #### C BC, MG1, PT, PTT, BMP, PHOS ####[place] [phone] Creatinine [Mass/Vol] 0.74 mg/dL Normal 0.58-0.96 [facility] Comment on above: Performed By: #### C BC, MG1, PT, PTT, BMP, PHOS ####[place] [address] [place] [place] [phone] eGFR- Amer. >60 Normal [facility] Comment on above: Performed By: #### C BC, MG1, PT, PTT, BMP, PHOS ####[address] [place] [phone] eGFR-All Other Races >60 Normal [facility] Comment on above: Result Comment: eGFR [...] C BC, MG1, PT, PTT, BMP, PHOS ####[place] [address] [place], [place] [phone] Glucose [Mass/Vol] 178 mg/dL High 74-99 [facility] Comment on above: Result Comment: The [place] Diabetes Association (ADA) provides guidance for cutoff [...] Standards of Medical Care in Diabetes 2016, [place] [employer]. Diabetes Care. 2016.39(Suppl 1). Performed By: #### C BC, MG1, PT, PTT, BMP, PHOS ####[address] [phone] Potassium [Moles/Vol] 4.1 mmol/L Normal 3.7-5.1 [facility] Comment on above: Performed By: #### C BC, MG1, PT, PTT, BMP, PHOS ####[address] [phone] Sodium [Moles/Vol] 140 mmol/L Normal 136-144 [facility] Comment on above: Performed By: #### C BC, MG1, PT, PTT, BMP, PHOS ####[address] [phone] Urea nitrogen [Mass/Vol] 14 mg/dL Normal 7-21 [facility] Comment on above: Performed By: #### C BC, MG1, PT, PTT, BMP, PHOS ####[address] [phone] CBCon 04-26-2021 Absolute nRBC <0.01 Normal <0.01 [facility] Comment on above: Performed By: #### C BC, MG1, PT, PTT, BMP, PHOS ####[place] [address] [address] [phone] Erythrocyte distribution width (RBC) [Ratio] 11.9 % Normal 11.5-15.0 [facility] Comment on above: Performed By: #### C BC, MG1, PT, PTT, BMP, PHOS ####[place] [address] [address] [phone] Hematocrit (Bld) [Volume fraction] 38.5 % Normal 36.0-46.0 [facility] Comment on above: Performed By: #### C BC, MG1, PT, PTT, BMP, PHOS ####[place] [address] [phone] Hemoglobin (Bld) [Mass/Vol] 13.2 g/dL Normal 11.5-15.5 [facility] Comment on above: Performed By: #### C BC, MG1, PT, PTT, BMP, PHOS ####[place] [address] [phone] MCH 31.7 pG Normal 26.0-34.0 [facility] Comment on above: Performed By: #### C BC, MG1, PT, PTT, BMP, PHOS ####[place] [address] [phone] MCHC (RBC) [Mass/Vol] 34.3 g/dL Normal 30.5-36.0 [facility] Comment on above: Performed By: #### C BC, MG1, PT, PTT, BMP, PHOS ####[place] [address] [phone] MCV (RBC) [Entitic vol] 92.3 fL Normal 80.0-100.0 [facility] Comment on above: Performed By: #### C BC, MG1, PT, PTT, BMP, PHOS ####[facility], [place] [phone] Platelet mean volume (Bld) [Entitic vol] 9.6 fL Normal 9.0-12.7 [facility] Comment on above: Performed By: #### C BC, MG1, PT, PTT, BMP, PHOS ####[address], [place] [phone] Platelets (Bld) [#/Vol] 227 10*3/uL Normal 150-400 [facility] Comment on above: Performed By: #### C BC, MG1, PT, PTT, BMP, PHOS ####[place] [id number], [place] [phone] RBC (Bld) [#/Vol] 4.17 10*6/uL Normal 3.90-5.20 [facility] Comment on above: Performed By: #### C BC, MG1, PT, PTT, BMP, PHOS ####[address] [place], [place] [phone] WBC (Bld) [#/Vol] 17.98 10*3/uL High 3.70-11.00 [facility] Comment on above: Performed By: #### C BC, MG1, PT, PTT, BMP, PHOS ####[address] [phone] CONSULTon 04-26-2021 CONSULT HNO ID: [id number] Author: Jose M Cedillo MD Service: Interventional [...] Oscar BRITTON (more content not included)... Normal [facility] CONSULT HNO ID: [id number] Author: Oneida Ruano MD Service: Cardiovascular Medicine Author Type: Physician Type: Consults Filed: 04/27/2021 2:36 PM Note Text: [facility]ARD[facility]ICINE CONSULT NOTE Oscar Pineda [id number] CONSULTING SERVICE: SICU DATE OF ADMISSION: 04/26/2021 [...] Problems: # (more content not included)... Normal [facility] CT ABLATION MSK NOT BONE ALDO ORon 04-26-2021 CT ABLATION MSK NOT BONE TUMOR * * *Final Report* * * * * * SEE BOTTOM OF REPORT FOR ADDENDED TEXT * * * DATE OF EXAM: Apr 26 2021 11:24AM [facility] [place] ABLATION MSK NOT BONE TUMOR / PROCEDURE REASON: R19.08-Bxabs-hatikuvfg and pelvic swelling, mass and lump, unspecified [...] for fur (more content not included)... Normal [facility] CT BRAIN WO IVCONon 04-26-20 CT BRAIN WO IVCON * * *Final Report* * * DATE OF EXAM: Apr 26 2021 1:45PM [facility] [place] BRAIN [place] IVCON / [...] reduction techniques were required COMPARISON: None. 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 Post-operative change: None. [...] Portable head CT demonstrating no acute findings. Senior Executive Compensation Analyst: PSCB Transcribe Date/Time: Apr 26 2021 1:56P Dictated by : MARIA L SCHMIDT MD This examination was interpreted and the report reviewed and electronically signed by: MARIA L SCHMIDT MD on Apr 26 2021 1:58PM EST [id number] Normal [facility] Confirm Blood Typeon 021 ABO/RH(D) Positive Normal [facility] Comment on above: Performed By: #### C ONABO ####[address] [phone] Performed By: #### T SCR ####[address] [phone] Expedited [id number] 04-26-20 21 SARS-CoV-2 (COVID-19) RNA ROX+probe Ql (Unsp spec) UPPER RESPIRATORY TRACT SWAB Normal [facility] Comment on above: Performed By: #### E XCOVD ####[address] [phone] SARS-CoV-2 (COVID-19) RNA ROX+probe Ql (Unsp spec) Negative for COVID19 (SARS CoV2) by RT-PCR or equivalent method. Normal Negative for COVID19 (SARS CoV2) by RT-PCR or equivalent method. [facility] Comment on above: Result Comment: This test has been authorized by FDA under an Emergency Use Authorization (EUA). Test performed by [facility], [facility] [place], [address] [place], [place] [address]. Performed By: #### E XCOVD ####[address] [phone] GASV + ALLon 04-26-2021 Base Excess Negative Normal [facility] Comment on above: Performed By: #### V ALLBG ####[address] [phone] Blood Gas Comm, Ziyad .VENOUS Normal [facility] Comment on above: Performed By: #### V ALLBG ####[address] [phone] Body temperature 98.6 [degF] Normal [facility] Comment on above: Performed By: #### V ALLBG ####[address] [phone] Calcium [Moles/Vol] 1.23 mmol/L Normal 1.08-1.30 [facility] Comment on above: Performed By: #### V ALLBG ####[address] [phone] Carboxyhemoglobin, Ziyad 0.9 % Normal <2.1 [facility] Comment on above: Performed By: #### V ALLBG ####[address] [phone] CO2 [Moles/Vol] 27 mmol/L Normal 25-29 [facility] Comment on above: Performed By: #### V ALLBG ####[address] [phone] Glucose [Mass/Vol] 144 mg/dL High 60-105 [facility] Comment on above: Performed By: #### V ALLBG ####[address] [phone] HCO3 (Bld) [Moles/Vol] 25 mmol/L Normal 24-28 [facility] Comment on above: Performed By: #### V ALLBG ####[place] [address] [address], [place] [phone] Hematocrit (Bld) [Volume fraction] 43.2 % Normal 36.0-46.0 [facility] Comment on above: Performed By: #### V ALLBG ####[place] [address] [phone] Hemoglobin (Bld) [Mass/Vol] 14.1 g/dL Normal 11.5-15.5 [facility] Comment on above: Performed By: #### V ALLBG ####[place] [address], [place] [phone] Lactate [Moles/Vol] 2.0 mmol/L Normal 0.5-2.2 [facility] Comment on above: Performed By: #### V ALLBG ####[place] [address] [phone] Methemoglobin 0.7 % Normal <1.6 [facility] Comment on above: Performed By: #### V ALLBG ####[place] [address] [phone] O2 Administered 100% Normal [facility] Comment on above: Performed By: #### V ALLBG ####[place] [address], [place] [phone] Oxyhemoglobin, Ziyad. 81 % Normal 60-85 [facility] Comment on above: Performed By: #### V ALLBG ####[place] [address], [place] [phone] pCO2 53 mm Hg Normal 42-55 [facility] Comment on above: Performed By: #### V ALLBG ####[place] [address], [place] [phone] pCO2, Temp Correct 53 mm Hg Normal 42-55 [facility] Comment on above: Performed By: #### V ALLBG ####[place] [address], [place] [phone] pH (Bld) 7.30 [pH] Low 7.32-7.42 [facility] Comment on above: Performed By: #### V ALLBG ####[place] [address] [place] [phone] pH, Temp Corrected 7.30 Low 7.32-7.42 [facility] Comment on above: Performed By: #### V ALLBG ####[place] [address] [place] [phone] pO2 52 mm Hg High 35-45 [facility] Comment on above: Performed By: #### V ALLBG ####[place] [phone] pO2, Temp Corrected 52 mm Hg High 35-45 [facility] Comment on above: Performed By: #### V ALLBG ####[place] [phone] Potassium [Moles/Vol] 4.4 mmol/L Normal 3.5-5.0 [facility] Comment on above: Performed By: #### V ALLBG ####[place] [address] [place] [phone] Sodium [Moles/Vol] 142 mmol/L Normal 136-144 [facility] Comment on above: Performed By: #### V ALLBG ####[place] [phone] Base Excess Negative Normal [facility] Comment on above: Performed By: #### V ALLBG ####[place] [address] [place] [phone] Blood Gas Comm, Ziyad .VENOUS Normal [facility] Comment on above: Performed By: #### V ALLBG ####[place] [address], [place] [phone] Body temperature 98.6 [degF] Normal [facility] Comment on above: Performed By: #### V ALLBG ####[place] [address], [place] [phone] Calcium [Moles/Vol] 1.25 mmol/L Normal 1.08-1.30 [facility] Comment on above: Performed By: #### V ALLBG ####[address] [phone] Carboxyhemoglobin, Ziyad 0.5 % Normal <2.1 [facility] Comment on above: Performed By: #### V ALLBG ####[place] [address] [place], [place] [phone] CO2 [Moles/Vol] 25 mmol/L Normal 25-29 [facility] Comment on above: Performed By: #### V ALLBG ####[address] [phone] Glucose [Mass/Vol] 172 mg/dL High 60-105 [facility] Comment on above: Performed By: #### V ALLBG ####[place] [address] [place], [place] [phone] HCO3 (Bld) [Moles/Vol] 24 mmol/L Normal 24-28 [facility] Comment on above: Performed By: #### V ALLBG ####[place] [address], [place] [phone] Hematocrit (Bld) [Volume fraction] 44.2 % Normal 36.0-46.0 [facility] Comment on above: Performed By: #### V ALLBG ####[place] [address] [place] [phone] Hemoglobin (Bld) [Mass/Vol] 14.4 g/dL Normal 11.5-15.5 [facility] Comment on above: Performed By: #### V ALLBG ####[place] [address] [phone] Lactate [Moles/Vol] 2.4 mmol/L High 0.5-2.2 [facility] Comment on above: Performed By: #### V ALLBG ####[place] [address] [phone] Methemoglobin 1.2 % Normal <1.6 [facility] Comment on above: Performed By: #### V ALLBG ####[place] [phone] O2 Administered 100% Normal [facility] Comment on above: Performed By: #### V ALLBG ####[place] [address] [place] [phone] Oxyhemoglobin, Ziyad. 98 % High 60-85 [facility] Comment on above: Performed By: #### V ALLBG ####[place] [address] [place] [phone] pCO2 46 mm Hg Normal 42-55 [facility] Comment on above: Performed By: #### V ALLBG ####[place] [address] [place] [phone] pCO2, Temp Correct 46 mm Hg Normal 42-55 [facility] Comment on above: Performed By: #### V ALLBG ####[place] [address], [place] [phone] pH (Bld) 7.33 [pH] Normal 7.32-7.42 [facility] Comment on above: Performed By: #### V ALLBG ####[place] [address] [phone] pH, Temp Corrected 7.33 Normal 7.32-7.42 [facility] Comment on above: Performed By: #### V ALLBG ####[place] [address] [place], [place] [phone] pO2 246 mm Hg High 35-45 [facility] Comment on above: Performed By: #### V ALLBG ####[place] [address] [place], [place] [phone] pO2, Temp Corrected 246 mm Hg High 35-45 [facility] Comment on above: Performed By: #### V ALLBG ####[place] [address] [place], [place] [phone] Potassium [Moles/Vol] 4.4 mmol/L Normal 3.5-5.0 [facility] Comment on above: Performed By: #### V ALLBG ####[address] [phone] Sodium [Moles/Vol] 143 mmol/L Normal 136-144 [facility] Comment on above: Performed By: #### V ALLBG ####[place] [address] [place], [place] [phone] HISTORY PHYSICALon HISTORY PHYSICAL HNO ID: [id number] Author: Kayce Wagner MD Service: Radiology Author [...] April 26, 2021 TIME: 8:54 PM Normal [facility] Magnesiumon 04-26-2021 Magnesium [Mass/Vol] 1.9 mg/dL Normal 1.7-2.3 [facility] Comment on above: Performed By: #### C BC, MG1, PT, PTT, BMP, PHOS ####[facility] [address] [place], [place] [phone] NURSING PROGon 04-26-2021 NURSING PROG HNO ID: [id number] Author: Jack Richards RN Service: Nursing Author Type: Registered Nurse Type: Nursing Progress Note Filed: 04/26/2021 9:21 PM Note Text: Nursing Progress: Topic: RESTRAINT NON-VIOLENT PATIENT NAME: Oscar Pineda PATIENT LOCATION: [place] [address] [address] The patient demonstrates Lack of Understanding/Ability to [...] TIME: 8:00 PM Jack Richards RN Normal [facility] NURSING PROG HNO ID: [id number] Author: Karsten Goldsmith RN Service: Nursing Author Type: Registered Nurse Type: Nursing Progress Note Filed: 04/26/2021 6:59 PM Note Text: Nursing Progress: Topic: RESTRAINT NON-VIOLENT PATIENT NAME: Oscar Pineda [place] [facility] [id number] The patient demonstrates Lack of Understanding/Ability [...] TIME: 6:58 PM Karsten Goldsmith RN Normal [facility] PT EDon 04-26-2021 PT ED HNO ID: [id number] Author: Agnes Schaefer RN Service: Interventional Radiology [...] SUPPLEMENTAL MATERIAL: None REFERRAL (RECOMMENDATION): None Normal [facility] Phosphoruson 04-26-2021 Phosphate [Mass/Vol] 3.1 mg/dL Normal 2.7-4.8 [facility] Comment on above: Performed By: #### C BC, MG1, PT, PTT, BMP, PHOS ####[facility] [place], [place] [phone] Protimeon 04-26-2021 PT INR 1.1 Normal 0.9-1.3 [facility] Comment on above: Result Comment: Neha min K Antagonist (VKA) Therapeutic Range: INR 2 to 3 (Target INR of 2.5) Note: For patients treated with VKA drugs, such as warfarin, the [place] [employer] 2012 Guideline recommends [...] Chest 2012, 141:7S-47S Daphne PEDERSON, et al. [facility] 2017, 70: 252-289 Performed By: #### C BC, MG1, PT, PTT, BMP, PHOS ####[facility] [place], [place] [phone] PT Sec 11.9 sec Normal 9.7-13.0 [facility] Comment on above: Performed By: #### C BC, MG1, PT, PTT, BMP, PHOS ####[facility] [address] [place], [place] [phone] Staph aureus PCRon 1 MRSA PCR Negative Normal [facility] Comment on above: Performed By: #### S APCR ####[facility], [place] [phone] S aureus Spec Source Nasal Normal [facility] Comment on above: Performed By: #### S APCR ####[facility] [place], [place] [phone] Staph aureus PCR Negative Normal [facility] Comment on above: Performed By: #### S APCR ####[address] [place] [phone] XR ABDOMEN 1V SUPINEon 04-26 XR ABDOMEN [...] loops of bowel. No focal bony abnormality. Senior Executive Compensation Analyst: ANEL Transcribe Date/Time: Apr 26 2021 2:53P Dictated by : RAMIN BROWNLEE MD This examination was interpreted and the report reviewed and electronically signed by: RAMIN BROWNLEE MD on Apr 26 2021 3:05PM EST [id number] Normal [facility] XR CHEST 1V FRONTAL PORTon 1 [...] No acute process identified. IMPRESSION: See result. Senior Executive Compensation Analyst: PSCB Transcribe Date/Time: Apr 26 2021 6:05P Dictated by : JASON LOWE MD This examination was interpreted and the report reviewed and electronically signed by: JASON LOWE MD on Apr 26 2021 6:07PM EST [id number] Normal [facility] XR CHEST 1V FRONTAL PORT * [...] No acute process identified. IMPRESSION: See result. Senior Executive Compensation Analyst: PSCB Transcribe Date/Time: Apr 26 2021 3:57P Dictated by : JASON LOWE MD This examination was interpreted and the report reviewed and electronically signed by: JASON LOWE MD on Apr 26 2021 3:58PM EST [id number] Normal [facility] NURSING PROGon 04-24-2021 NURSING PROG HNO ID: [id number] Author: Shereen Kwok LPN Service: ? Author Type: LICENSED NURSE Type: Nursing Progress Note Filed: 04/24/2021 2:42 PM Note Text: Pre-procedure instructions: Contacted patient and confirmed appt. for Cryoablation scheduled on 04[facility]26/21, at [facility]. Diet: Do not eat solid [...] signed. Arrival at 6:30am to desk QB-1 ([facility]) and check in for your procedure. Lead Burner/Transportation: How will you be arriving for your procedure? Private car. If you will be arriving at [facility] via ambulance or public transportation, please call to discuss. You will need a responsible adult to accompany you to and from the procedure. Your patient transportation driver is required to stay with you until you are taken into the Procedure room. [facility] is currently restricting visitors to two visitors per patient. No visitor under the age of 16. You and your visitor will be screened for temperature and COVID-19 symptoms upon entry to the hospital, and a wristband will be applied when cleared. If you develop any of the following symptoms before your procedure, please call [phone]. Chills, joint pain, rash, sore throat, cough, [...] No Written instructions provided to patient via NOTIKt If you have any questions please call [phone] Normal [facility] MRI ABDOMEN WO/W IVCONon [facility] Vital Signs Date Time Vital Sign Value Performing Clinician Facility 10-10-2022 10:00-0400 Body height 161.29 cm Shaun Valentine Other [facility] Other 10-10-2022 10:00-0400 Body mass index (BMI) [Ratio] 23.08 kg/m2 Shaun Ball Other [facility] Other 10-10-2022 10:00-0400 Body weight 60.06 kg Shaun Ball Other [facility] Other 10-10-2022 10:00-0400 Diastolic blood pressure 76 mm[Hg] Shaun Ball Other [facility] Other 10-10-2022 10:00-0400 Respiratory rate 12 /min Shaun Ball Other [facility] Other 10-10-2022 10:00-0400 Systolic blood pressure 110 mm[Hg] Shaun Ball Other [facility] Other 04-28-2022 15:46-0400 Body temperature 99.5 [degF] Melani Russell MD Work Phone: [facility] 04-28-2022 15:46-0400 Body weight 76.39 kg Melani Russell MD Work Phone: [facility] 04-28-2022 15:46-0400 Diastolic blood pressure 76 mm[Hg] Melani Russell MD Work Phone: [facility] 04-28-2022 15:46-0400 Heart rate 71 /min Melani Russell MD Work Phone: [facility] 04-28-2022 15:46-0400 Respiratory rate 20 /min Melani Russell MD Work Phone: [facility] 04-28-2022 15:46-0400 SaO2% (BldA) [Mass fraction] 97 % Melani Russell MD Work Phone: [facility] 04-28-2022 15:46-0400 Systolic blood pressure 131 mm[Hg] Melani Russell MD Work Phone: [facility] Encounters Encounter Date Encounter Type Care Provider [...] examination without abnormal findings DR SHAUN VALENTINE [facility] Start: 10-27-2022 Telephone encounter Shaun Valentine [facility] Start: 10-27-2022 End: 10-28-[address] SHAUN VALENTINE [facility] [employer] Other Start: 10-27-2022 End: 10-28-2022 Encounter for general adult medical examination without abnormal findings DR SHAUN VALENTINE Facility: Start: 10-10-2022 End: 10-10-2022 ambulatory Shaun Valentine Other [employer] Other Start: 10-10-2022 Encounter for genera l adult medical examination without abnormal findings Shaun Valentine [facility] Start: 10-10-2022 Periodic preventive med est patient 18-39 yrs Shaun Valentine [facility] Start: 04-28-2022 End: 04-29-2022 ambulatory Melani Russell MD Work Phone: Hematology/Oncology Comment on above: History of tumor (Pr imary Dx) Start: 04-28-2022 End: 04-29-2022 Patient encounter procedure Melani Russell MD Work Phone: [facility] Start: 04-21-2022 End: 04-21-2022 ambulatory MELANI RUSSELL Facility:[facility] Start: 04-21-2022 End: 04-21-2022 Subsequent hospital visit by physician Kiel [employer] [facility] (I-Stat/1.5t/3t) Work Phone: MRI Q 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] Start: 11-14-2021 ambulatory Melani Hutchison Work Phone: Hematology/Oncology 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 Start: 10-28-2021 Telephone encounter Melani Acuña rd, MD Work Phone: Hematology/Oncology Comment on above: Care Coordination Start: 09-27-2021 End: 09-27-2021 ambulatory MELANI RUSSELL Facility:[facility] Start: 09-20-2021 End: 09-20-2021 ambulatory MELANI RUSSELL Facility:[facility] Start: 05-07-2021 End: 05-07-2021 ambulatory ALEX URBANO [facility] Start: 05-06-2021 End: 05-06-2021 ambulatory ALEX URBANO [facility] Start: 04-26-2021 End: 04-30-2021 Evaluation and management of inpatient FASALAL POLIAWI [facility] Start: 02-28-2021 End: 02-28-2021 Subsequent hospital visit by physician Kiel [facility] Miriam (I-Stat/1.5t) Radiology Comment on above: Intra-abdominal and pelvic swelling, mass and lump, unspecified site [R19.00] Procedures Date Procedure Procedure Detail Performing Clinician Start: 04-29-2021 Antibody screen ALEX URBANO Comment on above: Performed By: #### T SCR ####[facility] [id number] [place], [place] [phone] Start: 04-26-2021 Antibody screen ALEX URBANO Comment on above: Performed By: #### T SCR ####[facility] [id number] [place], [place] [phone] Start: 02-28-2021 Mri abdomen w/o & w/contrast material Cortez Carter MD Work Phone: Plan of Treatment Date Care Activity Detail Author Start: 03-20-2023 Covid-19 Vaccine () Covid-19 Vaccine () [facility] Start: 03-20-2023 Influenza vaccination [facility] Start: 10-28-2022 End: 05-29-2023 Mri abdomen w/o & w/contrast material MRI ABDOMEN WO/W IVCON Radiology Routine History of tumor Expected: 10/28/2022, Expires: 05/29/2023 [facility] Work Phone: Comment on above: Expected: 10/28/2022 , Expires: 05/29/2023 Start: 10-28-2022 End: 05-29-2023 Mri pelvis w/o & w/contrast material MRI PELVIS WO/W IVCON Radiology Routine History of tumor Expected: 10/28/2022, Expires: 05/29/2023 [facility] Work Phone: Comment on above: Expected: 10/28/2022 , Expires: 05/29/2023 Start: 10-26-2022 End: 12-26-2022 CBC W Auto Differential panel - Blood ABS GRAN CT + CBC Lab Routine History of tumor Expected: 10/26/2022 (Approximate), Expires: 12/26/2022 [facility] Work Phone: Comment on above: Expected: 10/26/2022 (Approximate), Expires: 12/26/2022 Start: 10-26-2022 End: 12-26-2022 Comprehensive metabolic 2000 panel - Serum or Plasma COMP METABOLIC PANEL Lab Routine History of tumor Expected: 10/26/2022 (Approximate), Expires: 12/26/2022 [facility] Work Phone: Comment on above: Expected: 10/26/2022 (Approximate), Expires: 12/26/2022 Start: 07-20-2022 DEPRESSION ASSESSMENT DEPRESSION ASS ESSMENT [facility] Start: 03-20-2022 Influenza vaccination [facility] Start: 09-12-2021 COVID-19 VACCINE (3 - Booster for Pfizer series) COVID-19 VACCINE (3 - Booster for Pfizer series) [facility] Start: 07-20-2021 DEPRESSION ASSESSMENT DEPRESSION ASS ESSMENT [facility] Start: 06-07-2021 COVID-19 VACCINE (3 - Booster for Pfizer series) COVID-19 VACCINE (3 - Booster for Pfizer series) [facility] Start: 06-07-2021 COVID-19 VACCINE (3 - Pfizer series) COVID-19 VACCINE (3 - Pfizer series) [facility] Start: 03-15-2020 Urine microalbumin profile DTaP,Tdap,Td Vaccine (2 - Tdap) [facility] Start: 2014 HPV TESTING HPV TESTING [facility] Start: 2005 PAP TESTING PAP TESTING [facility] Start: 2003 Urine microalbumin profile DTAP,TDAP,TD (1 - Tdap) [facility] Start: 2002 HEPATITIS C SCREENING HEPATITIS C SC REENING [facility] Start: 2002 HIV SCREENING HIV SCREENING [facility] Start: 1996 Adult depression screening assessment DEPRESSION SCREENING [facility] Start: 1984 HEPATITIS B (1 of 3 - 3-dose series) HEPATITIS B (1 of 3 - 3-dose series) [facility] Start: 1984 Hepatitis B Vaccine (1 of 3 - 3-dose series) Hepatitis B Vaccine (1 of 3 - 3-dose series) [facility] End: 04-21-2022 Mri abdomen w/o & w/contrast material [facility] Work Phone: Comment on above: 1 Occurrences starti ng 04/21/2022 until 04/21/2022 End: 04-21-2022 Mri pelvis w/o & w/contrast material [facility] Work Phone: Comment on above: 1 Occurrences starti ng 04/21/2022 until 04/21/2022 [facility] Immunizations Immunization Date Immunization Notes Care Provider Fa cility 04-12-2021 COVID-19 Vaccine Pfi zer - Documentation Purposes Only Shaun Valentine Other [facility] Other 03-22-2021 COVID-19 Vaccine Pfi zer - Documentation Purposes Only Shaun Valentine Other [facility] Other 06-09-2019 influenza virus vaccine, unspecified formulation Mri (I-Stat/1.5t) [facility] Payers Date Payer Category Payer Private Health Insurance [employer] A ETNA CHOICE POS II [id number] 2015-Present [phone] [address] [place] [address] POS [id number] 2015 Private Health Insurance [id number] 1984 Unknown [id number] 1984 Unknown [id number] .1259 1984 Unknown [id number] .9 1984 Unknown [id number] .1259 1984 Unknown [id number] .1259 1984 Unknown [id number] [id number] .1259 1984 Unknown [id number] [id number] .9 1984 Unknown [id number] .1259 1984 Unknown [id number] .9 1959 Private Health Insurance [id number] Private Health Insurance [id number] Social History Date Type Detail Facility Start: 02-14-2021 Tobacco smoking stat us NHIS Never smoked tobacco [facility] Start: 02-14-2021 Tobacco use and exposure Smoke less tobacco non-user [facility] Start: 1985 Sex Assigned At Female [facility] Start: 01-15-2021 End: 04-28-2022 Exposure to SARS-CoV-2 (event) Not sure [facility] Start: 02-14-2021 End: 05-07-2021 Sex Assigned At [facility] Start: 02-14-2021 End: 05-07-2021 History of Social function [facility] Adult Depression Screening Assessment 0 [facility] Start: 02-26-2021 Gender identity Identifies as female gender (finding) [facility] Start: 03-27-2021 Sexual orientation Heterosexual (fin ding) [facility] Clinical Notes 02-28-2021 to 10-10-2022 Note Date & Type Note Facility 10-10-2022 Evaluation note Encounter Date Diagnosis Assessment Notes Sep, Wellness examination (ICD-10 - Z00.00) Sep, Hair thinning (ICD-10 - L65.9) Check H/H and TSH Not scarring [facility] Other [id number] History of Present illness Narrative* Melani Russell [...] and Medical Oncology documented in this encounterAden[facility]10-10-2022 Nurse Note* Aliya Jean Baptiste RN - 04/28/2022 3:43 PM EDT Additional intake questions: Has the patient had fever, nausea, vomiting, diarrhea, constipation, fatigue for > 1 week? No Does the patient have a decreased appetite? No Does patient want to see a Computer Network Support Specialist? No (yes to any of above refer [...] Jean Baptiste RN documented in this encounterAdena Health System10-03-2022 NoteHNO ID: [id number] Author: Erin Garcia RN Service: ? Author [...] IV SITE APPEARANCE: Clean,Dry and Intact SIGNATURE: Eirn Garcia RN PATIENT NAME: Oscar Pineda DATE: April 21, 2022 TIME: 5:35 [facility]CM[facility] NoteHNO ID: [id number] Author: RT Toby(R) Service: Radiology Author Type: [...] BY: RT Toby(Lizzy) April 21, 2022 6:08 [facility]10-03-2022 History of Present illness Narrative* [...] 2022 6:08 PM documented in this encounterAdena Health System04-13-2022 Miscellaneous Notes* Telephone Encounter - Brittany Avendaño [facility] - 10/30/2021 3:24 PM EDT Patient calling stating she has not received a call back, Please call @ [phone] * Telephone Encounter - Brittany Avendaño [facility] - 10/28/2021 10:02 AM EDT Oscar Pineda is calling Melani Russell MD today regarding Care Coordination,calling with questions about with her condition. Patient has been identified by name and birthdate. Duration of symptoms: N/A Requesting response back: call on cell [phone] (home) [phone] (cell) Brittany Avendaño [facility] October 28, 2021 documented in this encounterAdena Health System03-11-2022 NoteHNO ID: [id number] Author: Melani Russell MD Service: ? Author Type: Physician Type: Progress Notes Filed: 10/07/2021 12:24 PM Note Text: [facility] ESTABLISHED PATIENT VISIT PATIENT NAME: Oscar Pineda [...] Melani Pérez MD Internal Medicine Resident, PGY-1 [employer] 09/27/2021 SOLID TUMOR STAFF: ATTENDING PHYSICIAN NOTE [...] Russell MD, PhD Staff, H[facility]ology and [facility]cology[facility] Note HNO ID: [id number] Author: Shannan Ansari RT(R) Service: Radiology Author [...] BY: RT Eduardo(R) September 20, 2021 4:17 [facility]03-04-2022 NoteHNO ID: [id number] Author: Ronda Arora Service: ? Author Type: [...] Pineda DATE: September 20, 2021 TIME: 3:22 [facility]10-18-2021 NoteHNO ID: [id number] Author: LANETTE De Leon Service: ? Author Type: Genetic Counselor Type: Progress Notes Filed: 05/24/2021 11:18 AM Note Text: [facility] Consultation Note Genetic Counselor: Melida Quintero MS, [facility] [place] [place] Patient: Oscar Pineda Patient Name and confirmed at initiation of visit Visit was done virtually via Zoom Portions of the visit were done by genetic counseling promotions intern Suzanna Fishman under my supervision HIGH [...] unknown descent and paternal ancestors are of Andorran and Sudanese descent. There is no Ashkenazi Jainism ancestry. The patient had limited information about [...] that the patient's genetic (more content not included)...[facility]10-12-2021 NoteHNO ID: [id number] Author: Katty Logan APRN.GAS WELDER APPRENTICE Service: Critical Care Author Type: Nurse Practitioner [...] the A/P section below. Please refer to [employer] for list of inpatient medications. VITAL SIGNS: [...] room air today KIMBER (more content not included)...[facility]10-11-2021 NoteHNO ID: [id number] Author: Kayce Wagner MD Service: Radiology Author [...] her to go home. Kayce Wagner MD [phone] City Hospital10-11-2021 NoteHNO ID: [id number] Author: Marva Stiles APRN.CNP Service: Critical Care [...] Completed decadron -> transitioned to medrol. Consulted [facility] for transfer of service. Addendum @ 1115: pt to remain in SICU, [facility] does not feel comfortable accepting pt given supplemental O2 needs and < 24 hrs since extubation. Objective MEDICATIONS: Current medications and allergies reviewed. Recommended/planned medication changes discussed in detail in the A/P section below. Please refer to [facility] for list of inpatient medications. 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 Pt suffered iatrogenic air embolism to [...] April 29, 2021 TIME: 8:45 AM PAGER/CONTACT #:[facility]10-10-2021 NoteHNO ID: [id number] Author: Sara Guzman APRN.NGUYEN Service: Critical Care [...] the A/P section below. Please refer to [facility] for list of inpatient medications. VITAL SIGNS: [...] Current Assessment AND Pl (more content not included)...[facility]10-10-2021 NoteHNO ID: [id number] Author: Jose M Cedillo MD Service: Interventional [...] who presented for cryoablation on 04/26 with [facility] radiology. Pt suffered iatrogenic air embolism to [...] April 29, 2021 TIME: 8:34 AM PAGER/CONTACT #:[facility]10-09-2021 NoteHNO ID: [id number] Author: Ana Bautista RT(R) Service: Radiology Author [...] RDMS, EARLT, Wallace April 27, 2021 12:23 [facility]10-09-2021 History of Past illness Narrative* [...] this encounter (statuses as of 11/01/2021) [facility]10-09-2021 History of Past illness Narrative* Problem Noted [...] this encounter (statuses as of 11/19/2021) [facility]10-09-2021 History of Past illness Narrative* Problem Noted [...] this encounter (statuses as of 04/22/2022) [facility]10-09-2021 History of Past illness Narrative* Problem Noted [...] this encounter (statuses as of 04/29/2022) [facility]10-09-2021 History of Past illness Narrative* Problem Noted [...] this encounter (statuses as of 02/25/2023) [facility]10-09-2021 NoteHNO ID: [id number] Author: Anila Wise APRN.NGUYEN Service: Critical Care [...] Is Patient Clinically Ready to Transfer to [facility] or [facility]U?: No Discharge Planning: To [...] Pulmonary Acute respiratory insufficie (more content not included)...[facility]10-09-2021 NoteHNO ID: [id number] Author: Jose M Cedillo MD Service: Interventional [...] to look for air in the hepatic veinsSalem City Hospital 04-27-2021 NoteHNO ID: [id number] Author: Interface Note Service: ? Author Type: ? Type: Progress Notes Filed: 04/27/2021 2:51 AM Note Text: [facility] Scheduled Downtime: 04/27/2021 1:00:00 AM to 04/27/2021 2:33:00 [facility]10-08-2021 NoteHNO ID: [id number] Author: Marva Stiles APRN.CNP Service: Critical Care [...] the A/P section below. Please refer to [facility] for list of inpatient medications. VITAL [...] Is Patient Clinically Ready to Transfer to [facility] or [facility]U?: No Discharge Planning: To [...] 1245 vte pharmacologic prophyl (more content not included)...[facility]10-08-2021 NoteHNO ID: [id number] Author: Galdino Gaona DO Service: Critical Care Author Type: Fellow Type: Procedures Filed: 04/26/2021 4:34 PM Note Text: BEDSIDE PROCEDURE NOTE CENTRAL LINE INSERTION Date/Start Time: 04/26/2021 4:33 PM Performed by: Galdino Gaona DO Authorized by: Polly Reyna MD Informed Consent Consent Obtained: Written [place] Protocol A moment to CARE was completed. [...] applied following the usual aseptic technique. [facility] Central Line Insertion Checklist, attached to the [...] Pineda DATE: April 26, 2021 TIME: 4:32 [facility]10-08-2021 NoteHNO ID: [id number] Author: Polly Reyna MD Service: Critical Care [...] MD SICU Staff. 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 Intra-abdominal and pelvic swelling, mass and lump, unspecified site Abdominal mass, unspecified abdominal location documented in this encounter [facility] note* Diagnosis History of tumor- Primary Personal history of other specified diseases documented in this encounter [facility] noteNo InformationNortWellSpan [facility] [employer] Other History general Narrative - Reported* Type Description Date Medical History Fatigue Medical History Gall bladder polyp Medical History Atopic dermatitis, mild Medical History DESMOID FIBROMATOSIS Surgical History C section x 3 Surgical History wisdom teeth Surgical History RIGHT ABDOMINAL WALL MASS Hospitalization History see above [facility] [employer] Other Advance Directives No Advanced Directives Records FoundDocuments on File Type Date 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 Advance Directive(s) 04/10/2021 12:55 PM Advance Directive(s) 03/07/2021 6:15 PM Reason for Referral Specialty Diagnoses / Procedures Referred By Contac t Referred To Contact MR IMAGING Diagnoses Desmoid Abdominal mass, unspecified abdominal location Procedures MRI PELVIS WO/W IVCON MRI PELVIS W/O & W/CONTRAST MATERIAL Melani Russell MD [address] [place] [address] Mr Imaging Referral ID Status Reason Start Date Expiration Date V isits Requested Visits Authorized [id number] Closed Auto-Generate d Referral 03/30/2022 10/27/2022 1 1 Specialty Diagnoses / Procedures Referred By Contac t Referred To Contact MR IMAGING Diagnoses Desmoid Intra-abdominal and pelvic swelling, mass and lump, unspecified site Procedures MRI ABDOMEN WO/W IVCON MRI ABDOMEN W/O & W/CONTRAST MATERIAL Melani Russell MD [address] [place] [address] Mr Imaging Referral ID Status Reason Start Date Expiration Date V isits Requested Visits Authorized [id number] Closed Auto-Generate d Referral 03/30/2022 10/27/2022 1 1 Specialty Diagnoses / Procedures Referred By Contac t Referred To Contact MR IMAGING Diagnoses History of tumor Procedures MRI PELVIS WO/W IVCON MRI PELVIS W/O & W/CONTRAST MATERIAL Melani Russell MD [address] [place] [address] Mr Imaging Referral ID Status Reason Start Date Expiration Date Visits Requested Visits Authorized [id number] Pending Review Auto-Generat ed Referral 10/28/2022 05/29/2023 1 1 Specialty Diagnoses / Procedures Referred By Katie verdugo Referred To Contact MR IMAGING Diagnoses History of tumor Procedures MRI ABDOMEN WO/W IVCON MRI ABDOMEN W/O & [place] [address] [place] [address] Mr Imaging Referral ID Status Reason Start Date Expiration Date Visits Requested Visits Authorized [id number] Pending Review Auto-Generat ed Referral 10/28/2022 05/29/2023 [...] prosecute any alcohol or drug abuse patient.[facility] SystemIn the event this information is protected by the Federal Confidentiality of Alcohol and Drug Abuse Patient Records regulations: The Federal rules restrict any use of the information to criminally investigate or prosecute any alcohol or drug abuse patient.[facility] SystemIn the event this information is protected by the Federal Confidentiality of Alcohol and Drug Abuse Patient Records regulations: The Federal rules restrict any use of the information to criminally investigate or prosecute any alcohol or drug abuse patient.[facility] SystemIn the event this information is protected by the Federal Confidentiality of Alcohol and Drug Abuse Patient Records regulations: The Federal rules restrict any use of the information to criminally investigate or prosecute any alcohol or drug abuse patient.[facility] SystemIn the event this information is protected by the Federal Confidentiality of Alcohol and Drug Abuse Patient Records regulations: The Federal rules restrict any use of the information to criminally investigate or prosecute any alcohol or drug abuse patient.[facility] SystemIn the event this information is protected by the Federal Confidentiality of Alcohol and Drug Abuse Patient Records regulations: The Federal rules restrict any use of the information to criminally investigate or prosecute any alcohol or drug abuse patient.[facility] Reason for Visit (unrecogniz ed section and content) Reason Comments Care Coordination Reason Comments Radiology MRI Specialty Diagnoses / Procedures Referred By Contac t Referred To Contact MR IMAGING Diagnoses Desmoid Intra-abdominal and pelvic swelling, mass and lump, unspecified site Procedures MRI ABDOMEN WO/W IVCON MRI ABDOMEN W/O & [place] [address] [place] [address] Mr Imaging Referral ID Status Reason Start Date Expiration Date V isits Requested Visits Authorized [id number] Closed Auto-Generate d Referral 03/30/2022 10/27/2022 1 1 Reason Comments Established Patient Reason Comments Radiology MRI Specialty Diagnoses / Procedures Referred By Contac t Referred To Contact MR IMAGING Diagnoses Intra-abdominal and pelvic swelling, mass and lump, unspecified site Procedures MRI ABDOMEN WO/W IVCON MRI,ABDOMEN,W&WO Cortez Dubois MD [address] [place] [address] [place] [address] Referral ID Status Reason Start Date Expiration Date V isits Requested Visits Authorized [id number] Closed Auto-Generate d Referral 02/14/2021 03/16/2022 1 1 Care Teams (unrecognized sec tion and content) [employer] Sales Relationship Specialty [place] [address] [place] [address] Physician Hematology/Oncology 05/20/21 Chey Tamayo, RN [address] [place] [address] Specialty Corn Popper Oncology 05/20/21 [employer] Sales Relationship Specialty Start Date [place] Melani Russell [place] [id number] [place] [address] Physician Hematology/Oncology 05/20/21 Claritza Tamayo RN [address] [place] [address] Specialty Corn Popper Oncology 05/20/21 [employer] Sales Relationship Specialty [place] [address] [place], [place] [phone] Physician Hematology/Oncology 05/20/21 [place] [address] [place] [address] Specialty Corn Popper Oncology 05/20/21 [employer] Sales Relationship Specialty Start Date End Date Melani Russell [place] [id number] [place] [address] [phone] Physician Hematology/Oncology 05/20/21 Claritza Tamayo RN [address] [place] [address] Specialty Corn Popper Oncology 05/20/21 [employer] Sales Relationship Specialty Start Date End Date Melani Russell MD [address] [place] [address] [id number] Physician Hematology/Oncology 05/20/21 [place] [address] [place], [place] [phone] Specialty Corn Popper Hematology/Oncology 06/10/22 INFORMATION SOURCE (unrecogn ized section and content) DATE CREATED AUTHOR 04/23/2022 [facility] DATE CREATED AUTHOR AUTHOR'S ORGANIZ ATION 11/02/2022 [facility] DATE CREATED AUTHOR AUTHOR'S ORGANIZ ATION 09/28/2023 [facility] dical Specialists [facility] FOR RECORDS PERTAINING TO PATIENTS WHO ARE [...] BE BASED ON THE PRIMARY CLINICAL RECORDS. [employer] [facility]. provides no warranty or guarantee of the accuracy or completeness of information in this document.
[2023-09-29 17:00] VITALS: BP 125/76; PULSE 66
== END 2023-09-29 17:30 | disposition home or self-care (01) ==
LOC: FBCO 07:40 → FBC 16:54
PROVIDERS: PCP Internal Medicine; Visit Provider Obstetrics & Gynecology
DX: O36.60X0 Maternal care for excessive fetal growth, unspecified trimester, not applicable or unspecified (principal)
CPT/HCPCS: 59025

== ENCOUNTER 2023-10-02 07:10 | Outpatient (OUT) | payer OTHER, SELFPAY ==
--- OUTSIDE RECORDS SUMMARY | 2023-10-02 07:27 | XMS_ITS | CCD ---
Author Name Unknown Address [address] [place] [address] Organization [facility] Care Team Providers Care Jewelry Finisher Name Role Phone Drew JAMES, Melani Unavailable Yariel GARCIA, Chey Unavailable [phone] Yariel GARCIA, Claritza Andrade Unavailable Melani Russell MD Unavailable Claritza Tamayo RN Unavailable [phone] ALEX URBANO Referring Unavailable ALTAHAWI, FAYSAL Attending [...] Translations: [CODEINE] Drug Allergy 1 GI Upset [facility] (7 sources) Adhesive Tape-Silicones; Translations: [ADHESIVE TAPE-SILICONES] Drug Allergy 1 Other: See Comments [facility] (2 sources) Adhesive agent Drug allergy Unknown [facility] Other (2 sources) Codeine Drug Allergy nausea [facility] Other (1 source) Codeine Drug Allergy 1 The [facility] (1 source) Desonide Drug Allergy 1 The [facility] Medications Current Medications Medication Drug Class(es) [...] 10-27-2022 BASO # 0.1 103/ul Normal 0.0-0.1 [facility] Comment on above: Performed By: #### C BC #### [facility] [address] [address] [address] Rancho Cobos Basophils/100 WBC (Bld) 0.9 % Normal 0.2-2.0 [facility] Comment on above: Performed By: #### C BC #### [facility] [address] [address] [address] Rancho Cobos EO # 0.1 103/ul Normal 0.0-0.7 [facility] Comment on above: Performed By: #### C BC #### [facility] [address] [address] [address] Rancho Cobos Eosinophils/100 WBC (Bld) 1.4 % Normal 0.9-7.0 [facility] Comment on above: Performed By: #### C BC #### [facility] [address] [address] [address] Rancho Cobos Erythrocyte distribution width (RBC) [Ratio] 11.8 % Normal 11.0-15.0 [facility] Comment on above: Performed By: #### C BC #### [facility] [address] [address] [address] Rancho Cobos Hematocrit (Bld) [Volume fraction] 38.5 % Normal 36.0-48.0 [facility] Comment on above: Performed By: #### C BC #### [facility] [address] [address] [address] Rancho Cobos Hemoglobin (Bld) [Mass/Vol] 13.3 g/dL Normal 12.0-16.0 [facility] Comment on above: Performed By: #### C BC #### [facility] [address] [place] [address] Dr. Rancho Cobos IG # 0.01 10e3/ul Normal 0.00-0.03 [facility] Comment on above: Performed By: #### C BC #### [facility] [address] [place] [address] Dr. Rancho Cobos IG % 0.2 % Normal 0.0-0.5 [facility] Comment on above: Performed By: #### C BC #### [facility] [address] [place] [address] Dr. Rancho Cobos LYMPH # 1.7 103/ul Normal 1.2-3.8 [facility] Comment on above: Performed By: #### C BC #### [facility] [address] [place] [address] Dr. Rancho Cobos Lymphocytes/100 WBC (Bld) 31.2 % Normal 20.5-60.0 [facility] Comment on above: Performed By: #### C BC #### [facility] [address] [place] [address] Dr. Rancho Cobos MANUAL DIFF REQ NO Normal [facility] Comment on above: Performed By: #### C BC #### [facility] [address] [place] [address] Dr. Rancho Cobos MCH (RBC) [Entitic mass] 31.9 pg Normal 26.7-34.0 [facility] Comment on above: Performed By: #### C BC #### [facility] [address] [place] [address] Dr. Rancho Cobos MCHC (RBC) [Mass/Vol] 34.5 g/dL Normal 29.9-35.2 [facility] Comment on above: Performed By: #### C BC #### [facility] [address] [place] [address] Dr. Rancho Cobos MCV (RBC) [Entitic vol] 92.3 fL Normal 81.0-99.0 [facility] Comment on above: Performed By: #### C BC #### [facility] [address] [place] [address] Dr. Rancho Cobos MONO # 0.3 103/ul Normal 0.3-0.8 [facility] Comment on above: Performed By: #### C BC #### [facility] [address] [address] [address] Rancho Cobos Monocytes/100 WBC (Bld) 5.2 % Normal 1.7-12.0 [facility] Comment on above: Performed By: #### C BC #### [facility] [address] [place] [address] Dr. Rancho Cobos NEUT # 3.4 103/ul Normal 1.4-6.5 [facility] Comment on above: Performed By: #### C BC #### [facility] [address] [place] [address] Dr. Rancho Cobos Neutrophils/100 WBC (Bld) 61.1 % Normal 43.0-75.0 [facility] Comment on above: Performed By: #### C BC #### [facility] [address] [place] [address] Dr. Rancho Cobos Platelet mean volume (Bld) [Entitic vol] 9.4 fL Critically low 9.5-13.5 [facility] Comment on above: Performed By: #### C BC #### [facility] [address] [place] [address] Dr. Rancho Cobos PLT 261 103/ul Normal 150-450 [facility] Comment on above: Performed By: #### C BC #### [facility] [address] [place] [address] Dr. Rancho Cobos RBC 4.17 106/ul Critically low 4.20-5.40 [facility] Comment on above: Performed By: #### C BC #### [facility] [address] [place] [address] Dr. Rancho Cobos WBC 5.6 103/ul Normal 4.0-11.0 [facility] Comment on above: Performed By: #### C BC #### [facility] [address] [address] [address] Rancho Cobos LIPID PROFILEon 10-27-2022 CHOL-HDL RATIO NORM SEE BELOW Normal [facility] Comment on above: Result Comment: 3.3 - 4.4 LOW RISK 4.4 - 7.1 AVERAGE RISK 7.1 - 11.0 MODERATE RISK >11.0 HIGH RISK Performed By: #### C MP, LIPID, TSH #### [facility] [address] [address] [address] Rancho Cobos Cholesterol [Mass/Vol] 162 mg/dL Normal <=200 [facility] Comment on above: Performed By: #### C MP, LIPID, TSH #### [facility] [address] [address] [address] Rancho Cobos Cholesterol in HDL [Mass/Vol] 56 mg/dL Normal 40-60 [facility] Comment on above: Performed By: #### C MP, LIPID, TSH #### [facility] [address] [place] [address] Dr. Rancho Cobos Cholesterol in LDL [Mass/Vol] 97.0 mg/dL Normal [facility] Comment on above: Performed By: #### C MP, LIPID, TSH #### [facility] [address] [place] [address] Dr. Rancho Cobos Cholesterol.total/ Cholesterol in HDL [Mass ratio] 2.9 {ratio} Normal [facility] Comment on above: Performed By: #### C MP, LIPID, TSH #### [facility] [address] [address] [address] Rancho Cobos HDL NORMAL > or = 60 mg/dl - LO W CARDIOVASCULAR RISK <40 mg/dl - HIGH CARDIOVASCULAR RISK Normal [facility] Comment on above: Performed By: #### C MP, LIPID, TSH #### [facility] [address] [place] [address] Dr. Rancho Cobos LDL CALC NORMAL SEE BELOW Normal [facility] Comment on above: Result Comment: <100 mg/dl OPTIMAL 100 - 129 mg/dl NEAR OR ABOVE OPTIMAL 130 - 159 mg/dl BORDERLINE HIGH 160 - 189 mg/dl HIGH >190 mg/dl VERY HIGH Performed By: #### C MP, LIPID, TSH #### [facility] [address] [address] [address] Rancho Cobos Triglyceride [Mass/Vol] 45 mg/dL Normal <=150 [facility] Comment on above: Performed By: #### C MP, LIPID, TSH #### [facility] [address] [address] [address] Rancho Cobos VLDL CALC 9.0 mg/dL Normal [facility] Comment on above: Performed By: #### C MP, LIPID, TSH #### [facility] [address] [address] [address] Rancho Cobos PROF 14(COMP METB)on 023 Albumin [Mass/Vol] 4.0 g/dL Normal 3.4-5.0 [facility] Comment on above: Performed By: #### C MP, LIPID, TSH #### [facility] [address] [address] [address] Rancho Cobos Albumin/Globulin [Mass ratio] 1.2 {ratio} Normal [facility] Comment on above: Performed By: #### C MP, LIPID, TSH #### [facility] [address] [address] [address] Rancho Cobos ALP [Catalytic activity/Vol] 34 U/L Critically low 46-116 [facility] Comment on above: Performed By: #### C MP, LIPID, TSH #### [facility] [address] [address] [address] Rancho Cobos ALT [Catalytic activity/Vol] 24 U/L Normal 14-59 [facility] Comment on above: Performed By: #### C MP, LIPID, TSH #### [facility] [address] [address] [address] Rancho Cobos Anion gap [Moles/Vol] 12.1 mmol/L Normal [facility] Comment on above: Performed By: #### C MP, LIPID, TSH #### [facility] [address] [address] [address] Rancho Cobos AST [Catalytic activity/Vol] 17 U/L Normal 15-37 [facility] Comment on above: Performed By: #### C MP, LIPID, TSH #### [facility] [address] [address] [address] Rancho Cobos Bilirubin [Mass/Vol] 0.5 mg/dL Normal 0.2-1.0 [facility] Comment on above: Performed By: #### C MP, LIPID, TSH #### [facility] [address] [place] [address] Dr. Rancho Cobos Calcium [Mass/Vol] 9.2 mg/dL Normal 8.5-10.1 [facility] Comment on above: Performed By: #### C MP, LIPID, TSH #### [facility] [address] [address] [address] Rancho Cobos Chloride [Moles/Vol] 107 mmol/L Normal 98-107 [facility] Comment on above: Performed By: #### C MP, LIPID, TSH #### [facility] [address] [place] [address] Dr. Rancho Cobos CO2 [Moles/Vol] 28.5 mmol/L Normal 21.0-32.0 [facility] Comment on above: Performed By: #### C MP, LIPID, TSH #### [facility] [address] [place] [address] Dr. Rancho Cobos Creatinine [Mass/Vol] 0.72 mg/dL Normal 0.55-1.02 [facility] Comment on above: Performed By: #### C MP, LIPID, TSH #### [facility] [address] [place] [address] Dr. Rancho Cobos EGFR-AF ENGLISH >60 Normal >=60 [facility] Comment on above: Performed By: #### C MP, LIPID, TSH #### [facility] [address] [place] [address] Dr. Rancho Cobos EGFR-NON AF ENGLISH >60 Normal >=60 [facility] Comment on above: Performed By: #### C MP, LIPID, TSH #### [facility] [address] [place] [address] Dr. Rancho Cobos Globulin (S) [Mass/Vol] 3.4 g/dL Normal [facility] Comment on above: Performed By: #### C MP, LIPID, TSH #### [facility] [address] [address] [address] Rancho Cobos Glucose [Mass/Vol] 92 mg/dL Normal 74-106 [facility] Comment on above: Performed By: #### C MP, LIPID, TSH #### [facility] [address] [place] [address] Dr. Rancho Cobos Potassium [Moles/Vol] 4.6 mmol/L Normal 3.5-5.1 [facility] Comment on above: Performed By: #### C MP, LIPID, TSH #### [facility] [address] [place] [address] Dr. Rancho Cobos Protein [Mass/Vol] 7.4 g/dL Normal 6.4-8.2 [facility] Comment on above: Performed By: #### C MP, LIPID, TSH #### [facility] [address] [place] [address] Dr. Rancho Cobos Sodium [Moles/Vol] 143 mmol/L Normal 136-145 [facility] Comment on above: Performed By: #### C MP, LIPID, TSH #### [facility] [address] [place] [address] Dr. Rancho Cobos Urea nitrogen [Mass/Vol] 18.0 mg/dL Normal 7.0-18.0 [facility] Comment on above: Performed By: #### C MP, LIPID, TSH #### [facility] [address] [place] [address] Dr. Rancho Cobos Urea nitrogen/Creatinin e [Mass ratio] 25.0 mg/mg Normal [facility] Comment on above: Performed By: #### C MP, LIPID, TSH #### [facility] [address] [place] [address] Dr. Rancho Cobos TSHon 10-27-2022 TSH 1.005 uIU/mL Normal 0.358-3.740 [facility] Comment on above: Performed By: #### C MP, LIPID, TSH #### [facility] [address] [address] [address] Rancho Cobos MRI ABDOMEN WO/W IVCONon [...] suspicious marrow signal abnormality. Lower chest: Unremarkable. Business Education Professor (localizer) images: No additional findings. IMPRESSION: Evolving changes of RIGHT rectus abdominis muscle ablation without local recurrence. No metastatic disease in abdomen or pelvis Veneer Supervisor: THE MEDICAL CENTERKb Transcribe Date/Time: Apr 22 2022 10:29A Dictated by : LIBRADO JOAQUIN DO This examination was interpreted and the report reviewed and electronically signed by: CANELO EDMONDSON MD on Apr 22 2022 12:49PM EST [id number] Normal [facility] MRI PELVIS WO/W IVCONon 10-0 MRI [...] suspicious marrow signal abnormality. Lower chest: Unremarkable. Business Education Professor (localizer) images: No additional findings. IMPRESSION: Evolving changes of RIGHT rectus abdominis muscle ablation without local recurrence. No metastatic disease in abdomen or pelvis Veneer Supervisor: ANEL Transcribe Date/Time: Apr 22 2022 10:29A Dictated by : LIBRADO JOAQUIN, DO This examination was interpreted and the report reviewed and electronically signed by: CANELO EDMONDSON MD on Apr 22 2022 12:49PM EST [id number] Normal [facility] CNPAmi 10-28-2021 CNPN Telephone (HEMCA3) OSCAR PINEDA ([id number]) 1985 F Date Time Provider Department 10/28/21 [...] N/A Requesting response back: call on cell [phone] (home) [phone] (cell) Brittany Avendaño [facility] October 28, 2021 Brittany Avendaño [facility] 10/30/2021 3:25 PM Signed Patient calling stating she has not received a call back, Please call @ [phone] Melani Russell MD 11/19/2021 10:20 AM Signed This has been addressed through an [employer] message. Melani Russell MD, PhD Staff, Hematology [...] Status:Closed by BRITTANY LIAO on 11/01/21 Normal [facility] CNOVSPon 09-27-2021 CNOVSP Visit (SP) Office (HEMCA4) SARAVANANOSCAR GRACE ([id number]) 1985 F Date Time Provider Department 09/27/21 9:00 AM MELANI RUSSELL HEMCA4 During your visit today, we recorded the following information about you: Pulse Respiration Blood pressure Weight 65/minute 20/minute 149/67 77.6 kg Melani Russell MD 10/07/2021 12:24 PM Signed [facility] ESTABLISHED PATIENT VISIT PATIENT NAME: Oscar Pineda [...] Melani Pérez MD Internal Medicine Resident, PGY-1 [facility] 09/27/2021 SOLID TUMOR STAFF: ATTENDING PHYSICIAN NOTE [...] No Does patient want to see a Mohs Surgeon/General Dermatologist? No (yes to any of (more content not included)... Normal [facility] MRI ABDOMEN WO/W IVCONon MRI ABDOMEN [...] diffusion weighted and T1 weighted in- and rom-kl-akyve images were obtained. Then, using a 3-D [...] muscle mass, without evidence for residual/recurrent disease. Veneer Supervisor: ANEL Transcribe Date/Time: Sep 20 2021 4:49P Dictated by : CHRIS MILIAN MD This examination was interpreted and the report reviewed and electronically signed by: CHRIS MILIAN MD on Sep 20 2021 4:58PM EST [id number] Normal [facility] MRI PELVIS WO/W IVCONon 03-0 MRI [...] diffusion weighted and T1 weighted in- and ryl-ph-cdbvc images were obtained. Then, using a 3-D [...] muscle mass, without evidence for residual/recurrent disease. Veneer Supervisor: ANEL Transcribe Date/Time: Sep 20 2021 4:49P Dictated by : CHRIS MILIAN MD This examination was interpreted and the report reviewed and electronically signed by: CHRIS MILIAN MD on Sep 20 2021 4:58PM EST [id number] Normal [facility] CNPNon 08-09-2021 CNPN Telephone (HEMCA3) OSCAR PINEDA ([id number]) 1985 F Date Time Provider Department 08/09/21 [...] N/A Requesting response back: call on cell [phone] (home) [phone] (cell) Marva Gualberto Adm August 09, 2021 Chey Tamayo RN 08/09/2021 4:42 PM Signed Returned call to patient and informed her that moving her visit with Dr. Russell after the MRI would be best to establish a plan of care. Patient was appreciative of return call and information. Chey Tamayo RN Aerial Photograph Interpreter August 09, 2021 Allergies As of Date: [...] by CLARITZA TAMAYO on 08/09/21 [facility] Nishant [facility]22[facility]2021 [facility] OSCAR PINEDA ([id number]) 1985 F Date Time Provider Department 05/22/21 MELIDA QUINETRO During your visit today, we recorded the following information about you: LANETTE De Leon 05/22/2021 2:32 PM Signed Patient name and was confirmed at initiation of discussion. Oscar Pineda's Common Hereditary Cancers Panel through [facility] was negative for a pathogenic variant. Please [...] Encounter Status:Closed by MELIDA QUINTERO on 05/22/[address] [facility] 05-15-2021 CNPN Telephone (HEMCA3) OSCAR PINEDA ([id number]) 1985 F Date Time Provider Department 05/15/21 [...] N/A Requesting response back: call on cell [phone] (home) [phone] (cell) Marva Burciaga Adm May 15, 2021 [...] Status:Closed by MELANI RUSSELL on 10/29/21 Normal [facility] Molecular Teston 2020 Test Common Hereditary Cancers Panel Normal [facility] Comment on above: Performed By: #### M OL13 ####[facility] [id number] [place] [address] Test Results View results in Scan zahraa Documents link when available. Normal [facility] Comment on above: Performed By: #### M OL13 ####[facility] [id number] [place] [address] Nishant 05-01-2021 NGUYENN Telephone (JULIANN) OSCAR PINEDA ([id number]) 1985 F Date Time Provider Department 05/01/21 [...] questions or concerns. Mindy Farley Genetic Counselor Personal Investment Adviser Allergies As of Date: 05/01/2021 Noted Allergy [...] Status:Closed by MINDY FARLEY on 05/01/21 Normal [facility] CBCon 04-30-2021 Absolute nRBC <0.01 Normal <0.01 [facility] Comment on above: Performed By: #### C BC ####[facility] [id number] [place], [place] [phone] Erythrocyte distribution width (RBC) [Ratio] 12.0 % Normal 11.5-15.0 [facility] Comment on above: Performed By: #### C BC ####[place] [address] [address], [place] [phone] Hematocrit (Bld) [Volume fraction] 33.8 % Low 36.0-46.0 [facility] Comment on above: Performed By: #### C BC ####[place] [address] [address], [place] [phone] Hemoglobin (Bld) [Mass/Vol] 11.8 g/dL Normal 11.5-15.5 [facility] Comment on above: Performed By: #### C BC ####[place] [address] [address], [place] [phone] MCH 31.5 pG Normal 26.0-34.0 [facility] Comment on above: Performed By: #### C BC ####[address] [address] [address], [place] [phone] MCHC (RBC) [Mass/Vol] 34.9 g/dL Normal 30.5-36.0 [facility] Comment on above: Performed By: #### C BC ####[place] [address] [address], [place] [phone] MCV (RBC) [Entitic vol] 90.1 fL Normal 80.0-100.0 [facility] Comment on above: Performed By: #### C BC ####[place] [address], [place] [phone] Platelet mean volume (Bld) [Entitic vol] 9.6 fL Normal 9.0-12.7 [facility] Comment on above: Performed By: #### C BC ####[place] [address], [place] [phone] Platelets (Bld) [#/Vol] 182 10*3/uL Normal 150-400 [facility] Comment on above: Performed By: #### C BC ####[place] [address] [address], [place] [phone] RBC (Bld) [#/Vol] 3.75 10*6/uL Low 3.90-5.[address] [facility] Comment on above: Performed By: #### C BC ####[facility] [address] [place], [place] [phone] WBC (Bld) [#/Vol] 12.88 10*3/uL High 3.70-11.00 [facility] Comment on above: Performed By: #### C BC ####[facility] [address] [place], [place] [phone] CNDSon 04-30-2021 CNDS HNO ID: [id number] Author: Katty Logan APRN.FAX MACHINE REPAIRER Service: Critical Care Author Type: Nurse Practitioner [...] air KIMBER (more content not included)... Normal [facility] THERAPY NTon 04-30-2021 THERAPY NT HNO ID: [id number] Author: Licha Llanes, PT Service: Physical Therapy Author Type: Physical Therapist Type: Therapy (PT/OT/Speech/Resp) Filed: 04/30/2021 3:02 PM Note Text: Physical Therapy Treatment SERVICE DATE: 04/30/2021 SERVICE TIME: 1342 to 1351 ROOM: [place] [address] Recommended Discharge Disposition: Home Recommended Discharge Disposition [...] gait and mobility-other Interventions Provided: Gait Training (70856) Gait Training (26175) Treatment Minutes: 9 $ Gait Training (63426) Billed Units: 1 unit Training AND education provided in: Discharge planning, Energy conservation, Exercise program, Expected functional level, Falls prevention, Gait pattern, reduction of deviations, Home safe (more content not included)... Normal [facility] ALLIED HEALTHon 04-29-2021 ALLIED HEALTH HNO ID: [id number] Author: Ana Watters RN Service: Healing Service [...] 29, 2021 TIME: 8:11 AM CONTACT #: [phone] Normal [facility] APTTon 04-29-2021 aPTT Coag (Bld) [Time] 26.4 s Normal 23.0-32.4 [facility] Comment on above: Result Comment: Unfr [...] laboratory APTT reagent in use throughout the [facility]. Performed By: #### C BC, MG1, PHOS, PTT, CMP, PT ####[facility] [address] [place], [place] [phone] CASE MGT INIT Meryl 2020 CASE MGT INIT MATTEO HNO ID: [id number] Author: Rocio Bear RN Service: Case Management [...] Be Determined MEDICAL: [employer] CHOICE POS II Patient/Hog Counter Stated Goals: To have reduction in symptoms;To return home to life as it was;To improve my functional status Health Insurance: [employer] Health Issues Impacting Discharge Plan: (Tumor) Last Discharge Date: 03/12/21 Is this Within the Past 30 days? Last discharge within 30 days: No Advance Directive: Current Advance Directive: None Acupuncture Physician Attempted to Assist with AD Completion: No [...] None Has the Patient Been in a Senior Care Facility in the Past 30 days?: No SOCIAL: Living Arrangements: Home Lives With: Spouse Primary Contact: Extended Emergency Contact Information Primary Emergency Contact: LAURA PINEDA Address: [address] [place] [address] [facility] Mobile Relation: Spouse Supportive Patient Contact:: Yes Contact Resources: Family Family Name/Phone: LAURA PINEDA (Spouse) [phone] Caregiver AssessmentCaregiver is ready, willing and able [...] Mostly I feel financially burdened by my rng-fk-hmsvst expenses for my prescription medication:: 0 - Disagree Mostly Risk Score: 0 Patient is categorized as: Low risk < 2 Med Adherance Assessement not completed due to: No FISHING TOOL OPERATOR meds Are you interested in bedside delivery of your medications? Yes Is Patient Psychosocially Complex?: No ASSESSMENT AND PLAN: Medical Needs: Medical Needs: None Psychosocial Needs: Psychosocial Needs: None FREEDOM OF CHOICE EXPLAINED: [place] of Choice Given: No Reason Not Given: No placements necessary POTENTIAL TRANSITION PLANS No Services Indicated SIGNATURE: Rocio Bear RN MSN PATIENT NAME: Oscar Pineda DATE: April 29, 2021 TIME: 11:53 AM PAGER/CONTACT #: [phone] Normal [facility] CBCon 04-29-2021 Absolute nRBC <0.01 Normal <0.01 [facility] Comment on above: Performed By: #### C BC, MG1, PHOS, PTT, CMP, PT ####[facility] [place], [place] [phone] Erythrocyte distribution width (RBC) [Ratio] 11.8 % Normal 11.5-15.0 [facility] Comment on above: Performed By: #### C BC, MG1, PHOS, PTT, CMP, PT ####[place] [address] [phone] Hematocrit (Bld) [Volume fraction] 37.0 % Normal 36.0-46.0 [facility] Comment on above: Performed By: #### C BC, MG1, PHOS, PTT, CMP, PT ####[place] [address] [phone] Hemoglobin (Bld) [Mass/Vol] 12.3 g/dL Normal 11.5-15.5 [facility] Comment on above: Performed By: #### C BC, MG1, PHOS, PTT, CMP, PT ####[place] [address] [place] [phone] MCH 30.9 pG Normal 26.0-34.0 [facility] Comment on above: Performed By: #### C BC, MG1, PHOS, PTT, CMP, PT ####[place] [address] [address] [place] [phone] MCHC (RBC) [Mass/Vol] 33.2 g/dL Normal 30.5-36.0 [facility] Comment on above: Performed By: #### C BC, MG1, PHOS, PTT, CMP, PT ####[place] [address] [phone] MCV (RBC) [Entitic vol] 93.0 fL Normal 80.0-100.0 [facility] Comment on above: Performed By: #### C BC, MG1, PHOS, PTT, CMP, PT ####[place] [address] [phone] Platelet mean volume (Bld) [Entitic vol] 10.0 fL Normal 9.0-12.7 [facility] Comment on above: Performed By: #### C BC, MG1, PHOS, PTT, CMP, PT ####[place] [address] AveClevelDur[place], [place] [phone] Platelets (Bld) [#/Vol] 188 10*3/uL Normal 150-400 [facility] Comment on above: Performed By: #### C BC, MG1, PHOS, PTT, CMP, PT ####[place] [address], [place] [phone] RBC (Bld) [#/Vol] 3.98 10*6/uL Normal 3.90-5.[address] [facility] Comment on above: Performed By: #### C BC, MG1, PHOS, PTT, CMP, PT ####[place] [address], [place] [phone] WBC (Bld) [#/Vol] 11.41 10*3/uL High 3.70-11.00 [facility] Comment on above: Performed By: #### C BC, MG1, PHOS, PTT, CMP, PT ####[place] [address], [place] [phone] Comp Metabolic Panelon 04-29 Albumin [Mass/Vol] 3.5 g/dL Low 3.9-4.9 [facility] Comment on above: Performed By: #### C BC, MG1, PHOS, PTT, CMP, PT ####[place] [address], [place] [phone] ALP [Catalytic activity/Vol] 43 U/L Normal 34-123 [facility] Comment on above: Performed By: #### C BC, MG1, PHOS, PTT, CMP, PT ####[place] [address], [place] [phone] ALT [Catalytic activity/Vol] 56 U/L High 7-38 [facility] Comment on above: Performed By: #### C BC, MG1, PHOS, PTT, CMP, PT ####[facility], [place] [phone] Anion gap [Moles/Vol] 14 mmol/L Normal 9-18 [facility] Comment on above: Performed By: #### C BC, MG1, PHOS, PTT, CMP, PT ####[place] [address], [place] [phone] AST [Catalytic activity/Vol] 171 U/L High 13-35 [facility] Comment on above: Performed By: #### C BC, MG1, PHOS, PTT, CMP, PT ####[place] [address], [place] [phone] Bilirubin [Mass/Vol] 0.6 mg/dL Normal 0.2-1.3 [facility] Comment on above: Performed By: #### C BC, MG1, PHOS, PTT, CMP, PT ####[place] [address], [place] [phone] Calcium [Mass/Vol] 8.3 mg/dL Low 8.5-10.2 [facility] Comment on above: Performed By: #### C BC, MG1, PHOS, PTT, CMP, PT ####[place] [address], [place] [phone] Chloride [Moles/Vol] 100 mmol/L Normal 97-105 [facility] Comment on above: Performed By: #### C BC, MG1, PHOS, PTT, CMP, PT ####[place] [address], [place] [phone] CO2 [Moles/Vol] 25 mmol/L Normal 22-30 [facility] Comment on above: Performed By: #### C BC, MG1, PHOS, PTT, CMP, PT ####[place] [address], [place] [phone] Creatinine [Mass/Vol] 0.78 mg/dL Normal 0.58-0.96 [facility] Comment on above: Performed By: #### C BC, MG1, PHOS, PTT, CMP, PT ####[facility] [place], [place] [phone] eGFR- Amer. >60 Normal [facility] Comment on above: Performed By: #### C BC, MG1, PHOS, PTT, CMP, PT ####[facility] [place], [place] [phone] eGFR-All Other Races >60 Normal [facility] Comment on above: Result Comment: eGFR [...] C BC, MG1, PHOS, PTT, CMP, PT ####[facility] [place], [place] [phone] Glucose [Mass/Vol] 167 mg/dL High 74-99 [facility] Comment on above: Result Comment: The [place] [employer] (ADA) provides guidance for cutoff [...] Standards of Medical Care in Diabetes 2016, [place] [employer]. Diabetes Care. 2016.39(Suppl 1). Performed By: #### C BC, MG1, PHOS, PTT, CMP, PT ####[place] [address], [place] [phone] Potassium [Moles/Vol] 3.9 mmol/L Normal 3.7-5.1 [facility] Comment on above: Performed By: #### C BC, MG1, PHOS, PTT, CMP, PT ####[place] [address] [place] [phone] Protein [Mass/Vol] 6.0 g/dL Low 6.3-8.0 [facility] Comment on above: Performed By: #### C BC, MG1, PHOS, PTT, CMP, PT ####[place] [address], [place] [phone] Sodium [Moles/Vol] 139 mmol/L Normal 136-144 [facility] Comment on above: Performed By: #### C BC, MG1, PHOS, PTT, CMP, PT ####[address], [place] [phone] Urea nitrogen [Mass/Vol] 9 mg/dL Normal 7-21 [facility] Comment on above: Performed By: #### C BC, MG1, PHOS, PTT, CMP, PT ####[address] [phone] GASV + ALLon 04-29-2021 Base Excess 4 mmol/L Normal [facility] Comment on above: Performed By: #### V ALLBG ####[place] [address], [place] [phone] Calcium [Moles/Vol] 1.15 mmol/L Normal 1.08-1.30 [facility] Comment on above: Performed By: #### V ALLBG ####[place] [phone] Carboxyhemoglobin, Ziyad 1.2 % Normal <2.1 [facility] Comment on above: Performed By: #### V ALLBG ####[place] [address] [place] [phone] CO2 [Moles/Vol] 31 mmol/L High 25-29 [facility] Comment on above: Performed By: #### V ALLBG ####[place] [address] [place] [phone] Glucose [Mass/Vol] 178 mg/dL High 60-105 [facility] Comment on above: Performed By: #### V ALLBG ####[place] [address] [place] [phone] HCO3 (Bld) [Moles/Vol] 29 mmol/L High 24-28 [facility] Comment on above: Performed By: #### V ALLBG ####[place] [address] [place] [phone] Lactate [Moles/Vol] 1.3 mmol/L Normal 0.5-2.2 [facility] Comment on above: Performed By: #### V ALLBG ####[place] [address] [place] [phone] Methemoglobin 0.7 % Normal <1.6 [facility] Comment on above: Performed By: #### V ALLBG ####[place] [address] [place] [phone] O2 Administered 40% Normal [facility] Comment on above: Performed By: #### V ALLBG ####[place] [address] [place] [phone] pCO2 51 mm Hg Normal 42-55 [facility] Comment on above: Performed By: #### V ALLBG ####[place] [address], [place] [phone] pCO2, Temp Correct 51 mm Hg Normal 42-55 [facility] Comment on above: Performed By: #### V ALLBG ####[facility], [place] [phone] Potassium [Moles/Vol] 4.0 mmol/L Normal 3.5-5.0 [facility] Comment on above: Performed By: #### V ALLBG ####[facility] [phone] Base Excess 3 mmol/L Normal [facility] Comment on above: Performed By: #### V ALLBG ####[place] [address]C[place], [place] [phone] Blood Gas Comm, Ziyad . Normal [facility] Comment on above: Performed By: #### V ALLBG ####[place] [address], [place] [phone] Body temperature 98.6 [degF] Normal [facility] Comment on above: Performed By: #### V ALLBG ####[place] [address], [place] [phone] Calcium [Moles/Vol] 1.18 mmol/L Normal 1.08-1.30 [facility] Comment on above: Performed By: #### V ALLBG ####[place] [address], [place] [phone] Carboxyhemoglobin, Ziyad 0.9 % Normal <2.1 [facility] Comment on above: Performed By: #### V ALLBG ####[facility], [place] [phone] CO2 [Moles/Vol] 30 mmol/L High 25-29 [facility] Comment on above: Performed By: #### V ALLBG ####[place] [address], [place] [phone] Glucose [Mass/Vol] 193 mg/dL High 60-105 [facility] Comment on above: Performed By: #### V ALLBG ####[place] [address], [place] [phone] HCO3 (Bld) [Moles/Vol] 28 mmol/L Normal 24-28 [facility] Comment on above: Performed By: #### V ALLBG ####[place] [address] [place] [phone] Hematocrit (Bld) [Volume fraction] 39.0 % Normal 36.0-46.0 [facility] Comment on above: Performed By: #### V ALLBG ####[place] [address] [place] [phone] Hemoglobin (Bld) [Mass/Vol] 12.7 g/dL Normal 11.5-15.5 [facility] Comment on above: Performed By: #### V ALLBG ####[place] [address] [place] [phone] Lactate [Moles/Vol] 1.6 mmol/L Normal 0.5-2.2 [facility] Comment on above: Performed By: #### V ALLBG ####[place] [address] [place] [phone] Methemoglobin 1.0 % Normal <1.6 [facility] Comment on above: Performed By: #### V ALLBG ####[place] [address], [place] [phone] O2 Administered 30% Normal [facility] Comment on above: Performed By: #### V ALLBG ####[place] [address], [place] [phone] Oxyhemoglobin, Ziyad. 78 % Normal 60-85 [facility] Comment on above: Performed By: #### V ALLBG ####[place] [address], [place] [phone] pCO2 49 mm Hg Normal 42-55 [facility] Comment on above: Performed By: #### V ALLBG ####[place] [address] [address], [place] [phone] pCO2, Temp Correct 49 mm Hg Normal 42-55 [facility] Comment on above: Performed By: #### V ALLBG ####[address] [phone] pH (Bld) 7.38 [pH] Normal 7.32-7.42 [facility] Comment on above: Performed By: #### V ALLBG ####[address] [phone] pH, Temp Corrected 7.38 Normal 7.32-7.42 [facility] Comment on above: Performed By: #### V ALLBG ####[address] [phone] pO2 46 mm Hg High 35-45 [facility] Comment on above: Performed By: #### V ALLBG ####[address] [phone] pO2, Temp Corrected 46 mm Hg High 35-45 [facility] Comment on above: Performed By: #### V ALLBG ####[address] [phone] Potassium [Moles/Vol] 4.3 mmol/L Normal 3.5-5.0 [facility] Comment on above: Performed By: #### V ALLBG ####[address] [phone] Sodium [Moles/Vol] 141 mmol/L Normal 136-144 [facility] Comment on above: Performed By: #### V ALLBG ####[address] [phone] Magnesiumon 04-29-2021 Magnesium [Mass/Vol] 1.8 mg/dL Normal 1.7-2.3 [facility] Comment on above: Performed By: #### C BC, MG1, PHOS, PTT, CMP, PT ####[facility] [place], [place] [phone] NURSING PROGon 04-29-2021 NURSING PROG HNO ID: [id number] Author: Magda Rose RN Service: ? Author Type: Registered Nurse Type: Nursing Progress Note Filed: 04/29/2021 7:45 AM Note Text: Nursing Progress: Topic: RESTRAINT NON-VIOLENT PATIENT NAME: Oscar Pineda PATIENT LOCATION: [place] [address] The patient demonstrates Attempting to Remove Medical [...] TIME: 7:44 AM Diane Rose RN Normal [facility] Phosphoruson 04-29-2021 Phosphate [Mass/Vol] 3.2 mg/dL Normal 2.7-4.8 [facility] Comment on above: Performed By: #### C BC, MG1, PHOS, PTT, CMP, PT ####[facility] [place], [place] [phone] Protimeon 04-29-2021 PT INR 1.0 Normal 0.9-1.3 [facility] Comment on above: Result Comment: Neha min K Antagonist (VKA) Therapeutic Range: INR 2 to 3 (Target INR of 2.5) Note: For patients treated with VKA drugs, such as warfarin, the [place] [employer] 2012 Guideline recommends [...] Chest 2012, 141:7S-47S Daphne PEDERSON et al. [facility] 2017, 70: 252-289 Performed By: #### C BC, MG1, PHOS, PTT, CMP, PT ####[facility] [place], [place] [phone] PT Sec 11.0 sec Normal 9.7-13.0 [facility] Comment on above: Performed By: #### C BC, MG1, PHOS, PTT, CMP, PT ####[facility] [address] [place], [place] [phone] THERAPY NTon 04-29-2021 THERAPY NT HNO ID: [id number] Author: Neela Prasad, PT Service: Physical Therapy Author Type: Physical Therapist Type: Therapy (PT/OT/Speech/Resp) Filed: 04/29/2021 10:05 AM Note Text: Physical Therapy Evaluation SERVICE DATE: 04/29/2021 SERVICE TIME: 907 to 945 ROOM: [place] [address] Recommended Discharge Disposition: Home Recommended Discharge Disposition [...] length decreased;Non-functiona l gait speed [facility]: 7: Walk 25 feet or more Learning/Educational [...] Diagnosis: Reduced mobility-other Interventions Provided: Evaluation;Gait Training (86953);Therapeutic Activity (46336) $ Evaluation-Moderate (48374) Billed Units: 1 unit Therapeutic Activity (89330) Treatment Minutes: 8 $ Therapeutic Activity (44616) Billed Units: 1 unit Gait Training (03685) Treatment Minutes: 15 $ Gait Training (83180) Billed Units: 1 unit Training AND education provided in: Bed mobility, Benefits of in-hospital mobility, Discharge planning, Energy conservation, Expected functional level, Gait pattern, reduction of deviations, Positioning, Precautions/restriction s, Role of Physical Therapy, Sitting balance, Standing balance, Transfers, Treatment protocol, Equipment, Assistive device use The following therapeutic skills were used: Activity dosing, Assessment of tolerance includi (more content not included)... Normal [facility] Type and Screenon 04-29-2021 ABO/RH(D) Positive Normal [facility] Comment on above: Performed By: #### T SCR ####[facility] [address] [place], [place] [phone] APTTon 04-28-2021 aPTT Coag (Bld) [Time] 26.6 s Normal 23.0-32.4 [facility] Comment on above: Result Comment: Unfr [...] laboratory APTT reagent in use throughout the [facility]. Performed By: #### P T, PTT, TRIG, CMP, CBC, MG1, PHOS ####[place] [address], [place] [phone] Blood Cultureon 04-28-2021 Bacteria identified Cx Nom (Bld) Culture Result - No growth 5 days Normal [facility] Comment on above: Performed By: #### B LCUL ####[address] [phone] Bacteria identified Cx Nom (Bld) Culture Result - No growth 5 days Normal [facility] Comment on above: Performed By: #### B LCUL ####[address] [phone] CBCon 04-28-2021 Absolute nRBC <0.01 Normal <0.01 [facility] Comment on above: Performed By: #### P T, PTT, TRIG, CMP, CBC, MG1, PHOS ####[address] [phone] Erythrocyte distribution width (RBC) [Ratio] 12.4 % Normal 11.5-15.0 [facility] Comment on above: Performed By: #### P T, PTT, TRIG, CMP, CBC, MG1, PHOS ####[address] [phone] Hematocrit (Bld) [Volume fraction] 36.1 % Normal 36.0-46.0 [facility] Comment on above: Performed By: #### P T, PTT, TRIG, CMP, CBC, MG1, PHOS ####[address] [phone] Hemoglobin (Bld) [Mass/Vol] 11.8 g/dL Normal 11.5-15.5 [facility] Comment on above: Performed By: #### P T, PTT, TRIG, CMP, CBC, MG1, PHOS ####[place] [address], [place] [phone] MCH 30.9 pG Normal 26.0-34.0 [facility] Comment on above: Performed By: #### P T, PTT, TRIG, CMP, CBC, MG1, PHOS ####[address] [phone] MCHC (RBC) [Mass/Vol] 32.7 g/dL Normal 30.5-36.0 [facility] Comment on above: Performed By: #### P T, PTT, TRIG, CMP, CBC, MG1, PHOS ####[address] [phone] MCV (RBC) [Entitic vol] 94.5 fL Normal 80.0-100.0 [facility] Comment on above: Performed By: #### P T, PTT, TRIG, CMP, CBC, MG1, PHOS ####[address] [phone] Platelet mean volume (Bld) [Entitic vol] 9.8 fL Normal 9.0-12.7 [facility] Comment on above: Performed By: #### P T, PTT, TRIG, CMP, CBC, MG1, PHOS ####[address] [phone] Platelets (Bld) [#/Vol] 178 10*3/uL Normal 150-400 [facility] Comment on above: Performed By: #### P T, PTT, TRIG, CMP, CBC, MG1, PHOS ####[address] [phone] RBC (Bld) [#/Vol] 3.82 10*6/uL Low 3.90-5.[address] [facility] Comment on above: Performed By: #### P T, PTT, TRIG, CMP, CBC, MG1, PHOS ####[place] [address] [place], [place] [phone] WBC (Bld) [#/Vol] 11.29 10*3/uL High 3.70-11.00 [facility] Comment on above: Performed By: #### P T, PTT, TRIG, CMP, CBC, MG1, PHOS ####[facility] [place], [place] [phone] CT ABD/PEL W IVCONon 021 CT ABD/PEL W IVCON * * *Final Report* * * DATE OF EXAM: Apr 28 2021 2:10PM [facility] [place]BD/PEL W IVCON / [...] chest CT performed will be reported separately. Business Education Professor (topogram) images: No additional findings. IMPRESSION: Resolution of intravenous gas within the abdomen and pelvis. 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 Veneer Supervisor: PSCB Transcribe Date/Time: Apr 28 2021 2:50P Dictated by : KASHMIR RIVERA MD This examination was interpreted and the report reviewed and electronically signed by: ELIAS WOODY MD on Apr 28 2021 4:13PM EST [id number] Normal [facility] CT CHEST W IVCONon 1 CT CHEST W IVCON * * *Final Report* * * DATE OF EXAM: Apr 28 2021 2:10PM [facility] [place]ST W IVCON / [...] There is minimal intrahepatic biliary ductal dilation. Business Education Professor (topogram) images: No additional findings. IMPRESSION: 1. No CT evidence of air embolism within the systemic veins, right-sided heart chambers, central pulmonary arteries and hepatic veins. 2. Posterior complete LEFT lower lobe, partially dependent RIGHT lower lobe and dependent LEFT upper lobe atelectasis. Given the distribution, this finding may be related to aspiration. Trace bilateral pleural effusions. Veneer Supervisor: ANEL Transcribe Date/Time: Apr 28 2021 3:35P Dictated by : MICHELLE PETERSEN MD This examination was interpreted and the report reviewed and electronically signed by: MICHELLE PETERSEN MD on Apr 28 2021 3:45PM EST [id number] Normal [facility] Comp Metabolic Panelon 04-28 Albumin [Mass/Vol] 3.0 g/dL Low 3.9-4.9 [facility] Comment on above: Performed By: #### P T, PTT, TRIG, CMP, CBC, MG1, PHOS ####[facility] [address] [place], [place] [phone] ALP [Catalytic activity/Vol] 36 U/L Normal 34-123 [facility] Comment on above: Performed By: #### P T, PTT, TRIG, CMP, CBC, MG1, PHOS ####[facility] [place], [place] [phone] ALT [Catalytic activity/Vol] 32 U/L Normal 7-38 [facility] Comment on above: Performed By: #### P T, PTT, TRIG, CMP, CBC, MG1, PHOS ####[place] [address], [place] [phone] Anion gap [Moles/Vol] 10 mmol/L Normal 9-18 [facility] Comment on above: Performed By: #### P T, PTT, TRIG, CMP, CBC, MG1, PHOS ####[address] [phone] AST [Catalytic activity/Vol] 102 U/L High 13-35 [facility] Comment on above: Performed By: #### P T, PTT, TRIG, CMP, CBC, MG1, PHOS ####[address], [place] [phone] Bilirubin [Mass/Vol] 0.3 mg/dL Normal 0.2-1.3 [facility] Comment on above: Performed By: #### P T, PTT, TRIG, CMP, CBC, MG1, PHOS ####[address] [phone] Calcium [Mass/Vol] 7.9 mg/dL Low 8.5-10.2 [facility] Comment on above: Performed By: #### P T, PTT, TRIG, CMP, CBC, MG1, PHOS ####[address] [phone] Chloride [Moles/Vol] 107 mmol/L High 97-105 [facility] Comment on above: Performed By: #### P T, PTT, TRIG, CMP, CBC, MG1, PHOS ####[place] [address], [place] [phone] CO2 [Moles/Vol] 25 mmol/L Normal 22-30 [facility] Comment on above: Performed By: #### P T, PTT, TRIG, CMP, CBC, MG1, PHOS ####[place] [address], [place] [phone] Creatinine [Mass/Vol] 0.85 mg/dL Normal 0.58-0.96 [facility] Comment on above: Performed By: #### P T, PTT, TRIG, CMP, CBC, MG1, PHOS ####[facility] [place] [address] [phone] eGFR- Amer. >60 Normal [facility] Comment on above: Performed By: #### P T, PTT, TRIG, CMP, CBC, MG1, PHOS ####[facility] [place] [address] [phone] eGFR-All Other Races >60 Normal [facility] Comment on above: Result Comment: eGFR [...] T, PTT, TRIG, CMP, CBC, MG1, PHOS ####[facility] [place] [address] [phone] Glucose [Mass/Vol] 86 mg/dL Normal 74-99 [facility] Comment on above: Result Comment: The [place] [employer] (ADA) provides guidance for cutoff [...] Standards of Medical Care in Diabetes 2016, [place] [employer]. Diabetes Care. 2016.39(Suppl 1). Performed By: #### P T, PTT, TRIG, CMP, CBC, MG1, PHOS ####[address] [phone] Potassium [Moles/Vol] 3.8 mmol/L Normal 3.7-5.1 [facility] Comment on above: Performed By: #### P T, PTT, TRIG, CMP, CBC, MG1, PHOS ####[address] [phone] Protein [Mass/Vol] 5.2 g/dL Low 6.3-8.0 [facility] Comment on above: Performed By: #### P T, PTT, TRIG, CMP, CBC, MG1, PHOS ####[address] [phone] Sodium [Moles/Vol] 142 mmol/L Normal 136-144 [facility] Comment on above: Performed By: #### P T, PTT, TRIG, CMP, CBC, MG1, PHOS ####[address] [phone] Urea nitrogen [Mass/Vol] 15 mg/dL Normal 7-21 [facility] Comment on above: Performed By: #### P T, PTT, TRIG, CMP, CBC, MG1, PHOS ####[address] [phone] GASV + ALLon 04-28-2021 Base Excess 2 mmol/L Normal [facility] Comment on above: Performed By: #### V ALLBG ####[address] [phone] Blood Gas Comm, Ziyad . Normal [facility] Comment on above: Performed By: #### V ALLBG ####[address] [phone] Body temperature 98.6 [degF] Normal [facility] Comment on above: Performed By: #### V ALLBG ####[place] [address], [place] [phone] Calcium [Moles/Vol] 1.18 mmol/L Normal 1.08-1.30 [facility] Comment on above: Performed By: #### V ALLBG ####[place] [address], [place] [phone] Carboxyhemoglobin, Ziyad 0.7 % Normal <2.1 [facility] Comment on above: Performed By: #### V ALLBG ####[address] [phone] CO2 [Moles/Vol] 30 mmol/L High 25-29 [facility] Comment on above: Performed By: #### V ALLBG ####[place] [address] [place], [place] [phone] Glucose [Mass/Vol] 90 mg/dL Normal 60-105 [facility] Comment on above: Performed By: #### V ALLBG ####[place] [address] [place], [place] [phone] HCO3 (Bld) [Moles/Vol] 29 mmol/L High 24-28 [facility] Comment on above: Performed By: #### V ALLBG ####[place] [address] [address], [place] [phone] Hematocrit (Bld) [Volume fraction] 37.7 % Normal 36.0-46.0 [facility] Comment on above: Performed By: #### V ALLBG ####[place] [address], [place] [phone] Hemoglobin (Bld) [Mass/Vol] 12.3 g/dL Normal 11.5-15.5 [facility] Comment on above: Performed By: #### V ALLBG ####[facility] [place] [phone] Lactate [Moles/Vol] 0.9 mmol/L Normal 0.5-2.2 [facility] Comment on above: Performed By: #### V ALLBG ####[place] [address] [phone] Methemoglobin 1.5 % Normal <1.6 [facility] Comment on above: Performed By: #### V ALLBG ####[place] [address] [phone] O2 Administered 100% Normal [facility] Comment on above: Performed By: #### V ALLBG ####[place] [address] [address] [phone] Oxyhemoglobin, Ziyad. 83 % Normal 60-85 [facility] Comment on above: Performed By: #### V ALLBG ####[place] [address] [address] [phone] pCO2 57 mm Hg High 42-55 [facility] Comment on above: Performed By: #### V ALLBG ####[place] [address] [phone] pCO2, Temp Correct 57 mm Hg High 42-55 [facility] Comment on above: Performed By: #### V ALLBG ####[place] [address] [phone] pH (Bld) 7.32 [pH] Normal 7.32-7.42 [facility] Comment on above: Performed By: #### V ALLBG ####[place] [address] [place] [phone] pH, Temp Corrected 7.32 Normal 7.32-7.42 [facility] Comment on above: Performed By: #### V ALLBG ####[facility] [place], [place] [phone] pO2 54 mm Hg High 35-45 [facility] Comment on above: Performed By: #### V ALLBG ####[place] [address] [place], [place] [phone] pO2, Temp Corrected 54 mm Hg High 35-45 [facility] Comment on above: Performed By: #### V ALLBG ####[address] [phone] Potassium [Moles/Vol] 3.8 mmol/L Normal 3.5-5.0 [facility] Comment on above: Performed By: #### V ALLBG ####[address] [phone] Sodium [Moles/Vol] 142 mmol/L Normal 136-144 [facility] Comment on above: Performed By: #### V ALLBG ####[facility] [place] [address] [phone] Magnesiumon 04-28-2021 Magnesium [Mass/Vol] 2.0 mg/dL Normal 1.7-2.3 [facility] Comment on above: Performed By: #### P T, PTT, TRIG, CMP, CBC, MG1, PHOS ####[address] [phone] NURSING PROGon 04-28-2021 NURSING PROG HNO ID: [id number] Author: Laura Mullins RN Service: ? Author Type: Registered Nurse Type: Nursing Progress Note Filed: 04/28/2021 8:01 PM Note Text: Nursing Progress: Topic: RESTRAINT NON-VIOLENT PATIENT NAME: Oscar Pineda PATIENT LOCATION: [place] [address] The patient demonstrates Attempting to Remove Medical [...] 8:01 PM Laura Mullins RN [facility] NURSING PROG HNO ID: [id number] Author: Rob Guerra RN Service: Radiology Author [...] 28, 2021 TIME: 2:08 PM [facility] NURSING PROG HNO ID: [id number] Author: Yumiko Molina RN Service: ? Author Type: Registered Nurse Type: Nursing Progress Note Filed: 04/28/2021 2:57 PM Note Text: Nursing Progress Note Patient Name: Oscar Pineda Patient Location: [place] [address] 1200 IR at bedside, advised transfer to CT table while still in trendelenburg trial patient supine, still in trendelenburg. Tolerating [address], notified of positioning requirements 1345 YACHT MASTER, resident, two RT's, and two RN's at bedside for transport. Pt on telemetry/ continuous monitoring. CT and IR LIP notified. [address] imaging table, trendelenburg positioning maintained [address] and gave verbal OK to transition HOB flat then elevated (as tolerated) 1420 patient in SICU, HOB flat. Tolerating This note was completed by: Yumiko Molina Normal [facility] NURSING PROG HNO ID: [id number] Author: Yumiko Molina RN Service: ? Author Type: Registered Nurse Type: Nursing Progress Note Filed: 04/28/2021 1:22 PM Note Text: Nursing Progress: Topic: RESTRAINT NON-VIOLENT PATIENT NAME: Oscar Pineda PATIENT LOCATION: [place] [address] The patient demonstrates Attempting to Remove Medical Devices Vital to Medical Stability as evidenced by the following behaviors attempting to remove medical administrator which pose an imminent danger to self [...] 2021 TIME: 8:00AM Yumiko Molina RN Normal [facility] Phosphoruson 04-28-2021 Phosphate [Mass/Vol] 2.3 mg/dL Low 2.7-4.8 [facility] Comment on above: Performed By: #### P T, PTT, TRIG, CMP, CBC, MG1, PHOS ####[facility] [address] [place], [place] [phone] Protimeon 04-28-2021 PT INR 1.0 Normal 0.9-1.3 [facility] Comment on above: Result Comment: Neha min K Antagonist (VKA) Therapeutic Range: INR 2 to 3 (Target INR of 2.5) Note: For patients treated with VKA drugs, such as warfarin, the [place] [employer] 2012 Guideline recommends [...] TRIG, CMP, CBC, MG1, PHOS ####[place] [address] [place], [place] [phone] PT Sec 11.0 sec Normal 9.7-13.0 [facility] Comment on above: Performed By: #### P T, PTT, TRIG, CMP, CBC, MG1, PHOS ####[facility] [place], [place] [phone] Respiratory Cult/Stainon Respiratory Cult/Stain Sp. Request/Comment: - Specimen received in sterile container. Smear Result - Rare Mixed oral kaylynn Many Polymorphonuclear leukocytes Rare Epithelial cells Culture Result - Few Staphylococcus aureus --> ABNORMAL ALERT Insignificant colony count. No further workup. --> ABNORMAL ALERT Few Normal respiratory kaylynn present Critically abnormal [facility] Comment on above: Performed By: #### R CULST ####[address] [phone] Triglycerideon 04-28-2021 Fasting Time Unknown Normal [facility] Comment on above: Performed By: #### P T, PTT, TRIG, CMP, CBC, MG1, PHOS ####[facility] [place], [place] [phone] Triglyceride [Mass/Vol] 155 mg/dL High <150 [facility] Comment on above: Result Comment: <150 mg/dL, Normal 150-199 mg/dL, Borderline high 200-499 mg/dL, High >499 mg/dL, Very high Reference: 1. National Cholesterol Education Program ATP III Guideline At-A-Glance Quick Desk Reference: National Heart, Lung, and Blood [place]. National Institutes of Health. 2001: NIH Publication No. 01-3305. Performed By: #### P T, PTT, TRIG, CMP, CBC, MG1, PHOS ####[address] [phone] Urinalysison 04-28-2021 Bilirubin, Urine Negative Normal Negative [facility] Comment on above: Performed By: #### U A ####[place] [address] [place] [phone] Clarity (U) Clear Normal Clear [facility] Comment on above: Performed By: #### U A ####[place] [address] [place] [phone] Color (U) Light Yellow Critically abnormal Yellow [facility] Comment on above: Performed By: #### U A ####[place] [address] [place] [phone] Comments SEE COMMENT Normal [facility] Comment on above: Result Comment: Micr oscopic not warranted Performed By: #### U A ####[place] [address] [place] [phone] Glucose Ql (U) Negative Normal Negative [facility] Comment on above: Performed By: #### U A ####[place] [address] [place] [phone] Hemoglobin/Blood,U r Negative Normal Negative [facility] Comment on above: Performed By: #### U A ####[place] [address] [place] [phone] Ketones Ql (U) 1+ Critically abnormal Negative [facility] Comment on above: Performed By: #### U A ####[place] [address] [place] [phone] Leukest Negative Normal Negative [facility] Comment on above: Performed By: #### U A ####[place] [address] [place] [phone] Nitrite Ql (U) Negative Normal Negative [facility] Comment on above: Performed By: #### U A ####[place] [address] [place] [phone] pH (U) 5.0 [pH] Normal 5.0-8.0 [facility] Comment on above: Performed By: #### U A ####[place] [address], [place] [phone] Protein, Urine Negative Normal Negative [facility] Comment on above: Performed By: #### U A ####[address] [phone] Specific [place], Ur 1.023 Normal 1.005-1.030 [facility] Comment on above: Performed By: #### U A ####[place] [address] [place], [place] [phone] Urine Karl Comment SEE COMMENT Normal [facility] Comment on above: Result Comment: N/A Performed By: #### U A ####[place] [address], [place] [phone] Urobilinogen (U) [Mass/Vol] Negative Normal Negative [facility] Comment on above: Performed By: #### U A ####[place] [address], [place] [phone] APTTon 04-27-2021 aPTT Coag (Bld) [Time] 21.9 s Low 23.0-32.4 [facility] Comment on above: Result Comment: Unfr [...] laboratory APTT reagent in use throughout the [facility]. Performed By: #### P HOS, CMP, PTT, CBC, MG1, PT ####[place] [address], [place] [phone] CBCon 04-27-2021 Absolute nRBC <0.01 Normal <0.01 [facility] Comment on above: Performed By: #### P HOS, CMP, PTT, CBC, MG1, PT ####[place] [address], [place] [phone] Erythrocyte distribution width (RBC) [Ratio] 11.9 % Normal 11.5-15.0 [facility] Comment on above: Performed By: #### P HOS, CMP, PTT, CBC, MG1, PT ####[place] [address], [place] [phone] Hematocrit (Bld) [Volume fraction] 39.3 % Normal 36.0-46.0 [facility] Comment on above: Performed By: #### P HOS, CMP, PTT, CBC, MG1, PT ####[place] [address], [place] [phone] Hemoglobin (Bld) [Mass/Vol] 13.3 g/dL Normal 11.5-15.5 [facility] Comment on above: Performed By: #### P HOS, CMP, PTT, CBC, MG1, PT ####[place] [address] [place], [place] [phone] MCH 31.0 pG Normal 26.0-34.0 [facility] Comment on above: Performed By: #### P HOS, CMP, PTT, CBC, MG1, PT ####[address], [place] [phone] MCHC (RBC) [Mass/Vol] 33.8 g/dL Normal 30.5-36.0 [facility] Comment on above: Performed By: #### P HOS, CMP, PTT, CBC, MG1, PT ####[place] [address], [place] [phone] MCV (RBC) [Entitic vol] 91.6 fL Normal 80.0-100.0 [facility] Comment on above: Performed By: #### P HOS, CMP, PTT, CBC, MG1, PT ####[place] [address], [place] [phone] Platelet mean volume (Bld) [Entitic vol] 9.8 fL Normal 9.0-12.7 [facility] Comment on above: Performed By: #### P HOS, CMP, PTT, CBC, MG1, PT ####[place] [address], [place] [phone] Platelets (Bld) [#/Vol] 242 10*3/uL Normal 150-400 [facility] Comment on above: Performed By: #### P HOS, CMP, PTT, CBC, MG1, PT ####[address], [place] [phone] RBC (Bld) [#/Vol] 4.29 10*6/uL Normal 3.90-5.[address] [facility] Comment on above: Performed By: #### P HOS, CMP, PTT, CBC, MG1, PT ####[address] [phone] WBC (Bld) [#/Vol] 17.39 10*3/uL High 3.70-11.00 [facility] Comment on above: Performed By: #### P HOS, CMP, PTT, CBC, MG1, PT ####[place] [address], [place] [phone] Comp Metabolic Panelon 04-27 Albumin [Mass/Vol] 3.9 g/dL Normal 3.9-4.9 [facility] Comment on above: Performed By: #### P HOS, CMP, PTT, CBC, MG1, PT ####[address], [place] [phone] ALP [Catalytic activity/Vol] 41 U/L Normal 34-123 [facility] Comment on above: Performed By: #### P HOS, CMP, PTT, CBC, MG1, PT ####[place] [address], [place] [phone] ALT [Catalytic activity/Vol] 26 U/L Normal 7-38 [facility] Comment on above: Performed By: #### P HOS, CMP, PTT, CBC, MG1, PT ####[place] [address], [place] [phone] Anion gap [Moles/Vol] 10 mmol/L Normal 9-18 [facility] Comment on above: Performed By: #### P HOS, CMP, PTT, CBC, MG1, PT ####[place] [address], [place] [phone] AST [Catalytic activity/Vol] 63 U/L High 13-35 [facility] Comment on above: Performed By: #### P HOS, CMP, PTT, CBC, MG1, PT ####[place] [address], [place] [phone] Bilirubin [Mass/Vol] 0.5 mg/dL Normal 0.2-1.3 [facility] Comment on above: Performed By: #### P HOS, CMP, PTT, CBC, MG1, PT ####[address], [place] [phone] Calcium [Mass/Vol] 8.6 mg/dL Normal 8.5-10.2 [facility] Comment on above: Performed By: #### P HOS, CMP, PTT, CBC, MG1, PT ####[place] [address], [place] [phone] Chloride [Moles/Vol] 109 mmol/L High 97-105 [facility] Comment on above: Performed By: #### P HOS, CMP, PTT, CBC, MG1, PT ####[place] [address], [place] [phone] CO2 [Moles/Vol] 23 mmol/L Normal 22-30 [facility] Comment on above: Performed By: #### P HOS, CMP, PTT, CBC, MG1, PT ####[facility], [place] [phone] Creatinine [Mass/Vol] 0.76 mg/dL Normal 0.58-0.96 [facility] Comment on above: Performed By: #### P HOS, CMP, PTT, CBC, MG1, PT ####[address] [phone] eGFR- Amer. >60 Normal [facility] Comment on above: Performed By: #### P HOS, CMP, PTT, CBC, MG1, PT ####[address] [phone] eGFR-All Other Races >60 Normal [facility] Comment on above: Result Comment: eGFR [...] P HOS, CMP, PTT, CBC, MG1, PT ####[address] [phone] Glucose [Mass/Vol] 119 mg/dL High 74-99 [facility] Comment on above: Result Comment: The [place] [employer] (ADA) provides guidance for cutoff [...] Standards of Medical Care in Diabetes 2016, [place] [employer]. Diabetes Care. 2016.39(Suppl 1). Performed By: #### P HOS, CMP, PTT, CBC, MG1, PT ####[address] [phone] Potassium [Moles/Vol] 4.0 mmol/L Normal 3.7-5.1 [facility] Comment on above: Performed By: #### P HOS, CMP, PTT, CBC, MG1, PT ####[address] [phone] Protein [Mass/Vol] 5.9 g/dL Low 6.3-8.0 [facility] Comment on above: Performed By: #### P HOS, CMP, PTT, CBC, MG1, PT ####[address] [phone] Sodium [Moles/Vol] 142 mmol/L Normal 136-144 [facility] Comment on above: Performed By: #### P HOS, CMP, PTT, CBC, MG1, PT ####[address] [phone] Urea nitrogen [Mass/Vol] 13 mg/dL Normal 7-21 [facility] Comment on above: Performed By: #### P HOS, CMP, PTT, CBC, MG1, PT ####[address] [phone] GASV + ALLon 04-27-2021 Base Excess 1 mmol/L Normal [facility] Comment on above: Performed By: #### V ALLBG ####[address] [phone] Blood Gas Comm, Ziyad . Normal [facility] Comment on above: Performed By: #### V ALLBG ####[place] [address] [place], [place] [phone] Body temperature 98.6 [degF] Normal [facility] Comment on above: Performed By: #### V ALLBG ####[place] [address], [place] [phone] Calcium [Moles/Vol] 1.21 mmol/L Normal 1.08-1.30 [facility] Comment on above: Performed By: #### V ALLBG ####[place] [phone] Carboxyhemoglobin, Ziyad 0.7 % Normal <2.1 [facility] Comment on above: Performed By: #### V ALLBG ####[place] [address] [place] [phone] CO2 [Moles/Vol] 29 mmol/L Normal 25-29 [facility] Comment on above: Performed By: #### V ALLBG ####[place] [address], [place] [phone] Glucose [Mass/Vol] 97 mg/dL Normal 60-105 [facility] Comment on above: Performed By: #### V ALLBG ####[place] [address], [place] [phone] HCO3 (Bld) [Moles/Vol] 27 mmol/L Normal 24-28 [facility] Comment on above: Performed By: #### V ALLBG ####[place] [address], [place] [phone] Hematocrit (Bld) [Volume fraction] 38.2 % Normal 36.0-46.0 [facility] Comment on above: Performed By: #### V ALLBG ####[place] [address], [place] [phone] Hemoglobin (Bld) [Mass/Vol] 12.4 g/dL Normal 11.5-15.5 [facility] Comment on above: Performed By: #### V ALLBG ####[place] [address] [place] [phone] Lactate [Moles/Vol] 1.1 mmol/L Normal 0.5-2.2 [facility] Comment on above: Performed By: #### V ALLBG ####[place] [address] [place] [phone] Methemoglobin 0.7 % Normal <1.6 [facility] Comment on above: Performed By: #### V ALLBG ####[place] [address] [place] [phone] O2 Administered 100% Normal [facility] Comment on above: Performed By: #### V ALLBG ####[place] [address] [place] [phone] Oxyhemoglobin, Ziyad. 92 % High 60-85 [facility] Comment on above: Performed By: #### V ALLBG ####[place] [address] [place] [phone] pCO2 53 mm Hg Normal 42-55 [facility] Comment on above: Performed By: #### V ALLBG ####[place] [address] [place] [phone] pCO2, Temp Correct 53 mm Hg Normal 42-55 [facility] Comment on above: Performed By: #### V ALLBG ####[place] [address] [place] [phone] pH (Bld) 7.33 [pH] Normal 7.32-7.42 [facility] Comment on above: Performed By: #### V ALLBG ####[place] [address] [place] [phone] pH, Temp Corrected 7.33 Normal 7.32-7.42 [facility] Comment on above: Performed By: #### V ALLBG ####[place] [address], [place] [phone] pO2 70 mm Hg High 35-45 [facility] Comment on above: Performed By: #### V ALLBG ####[place] [address] [place] [phone] pO2, Temp Corrected 70 mm Hg High 35-45 [facility] Comment on above: Performed By: #### V ALLBG ####[place] [address], [place] [phone] Potassium [Moles/Vol] 3.9 mmol/L Normal 3.5-5.0 [facility] Comment on above: Performed By: #### V ALLBG ####[place] [address] [place] [phone] Sodium [Moles/Vol] 143 mmol/L Normal 136-144 [facility] Comment on above: Performed By: #### V ALLBG ####[place] [address] [place] [phone] Base Excess 0 mmol/L Normal [facility] Comment on above: Performed By: #### V ALLBG ####[place] [address], [place] [phone] Blood Gas Comm, Ziyad . Normal [facility] Comment on above: Performed By: #### V ALLBG ####[place] [address], [place] [phone] Body temperature 98.6 [degF] Normal [facility] Comment on above: Performed By: #### V ALLBG ####[place] [address], [place] [phone] Calcium [Moles/Vol] 1.22 mmol/L Normal 1.08-1.30 [facility] Comment on above: Performed By: #### V ALLBG ####[place] [address], [place] [phone] Carboxyhemoglobin, Ziyad 0.6 % Normal <2.1 [facility] Comment on above: Performed By: #### V ALLBG ####[place] [address], [place] [phone] CO2 [Moles/Vol] 27 mmol/L Normal 25-29 [facility] Comment on above: Performed By: #### V ALLBG ####[place] [address], [place] [phone] Glucose [Mass/Vol] 130 mg/dL High 60-105 [facility] Comment on above: Performed By: #### V ALLBG ####[place] [address], [place] [phone] HCO3 (Bld) [Moles/Vol] 26 mmol/L Normal 24-28 [facility] Comment on above: Performed By: #### V ALLBG ####[place] [address] [place], [place] [phone] Hematocrit (Bld) [Volume fraction] 42.7 % Normal 36.0-46.0 [facility] Comment on above: Performed By: #### V ALLBG ####[place] [address], [place] [phone] Hemoglobin (Bld) [Mass/Vol] 13.9 g/dL Normal 11.5-15.5 [facility] Comment on above: Performed By: #### V ALLBG ####[place] [address] [place], [place] [phone] Lactate [Moles/Vol] 1.3 mmol/L Normal 0.5-2.2 [facility] Comment on above: Performed By: #### V ALLBG ####[place] [address], [place] [phone] Methemoglobin 1.1 % Normal <1.6 [facility] Comment on above: Performed By: #### V ALLBG ####[place] [address], [place] [phone] O2 Administered 100% Normal [facility] Comment on above: Performed By: #### V ALLBG ####[place] [address] [place] [phone] Oxyhemoglobin, Ziyad. 88 % High 60-85 [facility] Comment on above: Performed By: #### V ALLBG ####[place] [address] [place] [phone] pCO2 49 mm Hg Normal 42-55 [facility] Comment on above: Performed By: #### V ALLBG ####[place] [address] [place] [phone] pCO2, Temp Correct 49 mm Hg Normal 42-55 [facility] Comment on above: Performed By: #### V ALLBG ####[place] [address], [place] [phone] pH (Bld) 7.34 [pH] Normal 7.32-7.42 [facility] Comment on above: Performed By: #### V ALLBG ####[place] [address], [place] [phone] pH, Temp Corrected 7.34 Normal 7.32-7.42 [facility] Comment on above: Performed By: #### V ALLBG ####[place] [address], [place] [phone] pO2 64 mm Hg High 35-45 [facility] Comment on above: Performed By: #### V ALLBG ####[place] [address], [place] [phone] pO2, Temp Corrected 64 mm Hg High 35-45 [facility] Comment on above: Performed By: #### V ALLBG ####[place] [address] [place], [place] [phone] Potassium [Moles/Vol] 4.1 mmol/L Normal 3.5-5.0 [facility] Comment on above: Performed By: #### V ALLBG ####[address] [phone] Sodium [Moles/Vol] 142 mmol/L Normal 136-144 [facility] Comment on above: Performed By: #### V ALLBG ####[address] [phone] Magnesiumon 04-27-2021 Magnesium [Mass/Vol] 2.2 mg/dL Normal 1.7-2.3 [facility] Comment on above: Performed By: #### P HOS, CMP, PTT, CBC, MG1, PT ####[address] [phone] NURSING PROGon 04-27-2021 NURSING PROG HNO ID: [id number] Author: Jack Richards RN Service: Nursing Author Type: Registered Nurse Type: Nursing Progress Note Filed: 04/27/2021 10:46 PM Note Text: Nursing Progress: Topic: RESTRAINT NON-VIOLENT PATIENT NAME: Oscar Pineda PATIENT LOCATION: [place] [address]/[place] [address] The patient demonstrates Lack of Understanding/Ability to [...] TIME: 10:00 PM Jack Richards RN Normal [facility] NURSING PROG HNO ID: [id number] Author: Karsten Goldsmith RN Service: Nursing Author Type: Registered Nurse Type: Nursing Progress Note Filed: 04/27/2021 8:51 AM Note Text: Nursing Progress: Topic: RESTRAINT NON-VIOLENT PATIENT NAME: Oscar Pineda PATIENT LOCATION: [place] [address] The patient demonstrates Lack of Understanding/Ability to [...] TIME: 8:51 AM Karsten Goldsmith RN Normal [facility] Phosphoruson 04-27-2021 Phosphate [Mass/Vol] 3.3 mg/dL Normal 2.7-4.8 [facility] Comment on above: Performed By: #### P HOS, CMP, PTT, CBC, MG1, PT ####[facility] [address] [place], [place] [phone] Protimeon 04-27-2021 PT INR 1.1 Normal 0.9-1.3 [facility] Comment on above: Result Comment: Neha min K Antagonist (VKA) Therapeutic Range: INR 2 to 3 (Target INR of 2.5) Note: For patients treated with VKA drugs, such as warfarin, the [place] [employer] 2012 Guideline recommends [...] Chest 2012, 141:7S-47S Daphne RA, et al. [facility] 2017, 70: 252-289 Performed By: #### P HOS, CMP, PTT, CBC, MG1, PT ####[facility] [place], [place] [phone] PT Sec 11.2 sec Normal 9.7-13.0 [facility] Comment on above: Performed By: #### P HOS, CMP, PTT, CBC, MG1, PT ####[facility] [place], [place] [phone] US ABDOMEN LTDon 04-27-2021 US ABDOMEN LTD * * *Final Report* * * DATE OF EXAM: Apr 27 2021 12:24PM [facility] [place] - US ABDOMEN LTD / PROCEDURE [...] within the hepatic veins or visualized IVC. Veneer Supervisor: ANEL Transcribe Date/Time: Apr 27 2021 12:34P Dictated by : POONAM BLUM MD This examination was interpreted and the report reviewed and electronically signed by: ALICIA MENDOZA MD on Apr 27 2021 2:57PM EST [id number] Normal [facility] XR CHEST 1V FRONTALon 2020 XR [...] cardiomediastinal silhouette. Other: . IMPRESSION: See result. Veneer Supervisor: PSCKb Transcribe Date/Time: Apr 27 2021 10:29A Dictated by : TAYLOR CORONA MD This examination was interpreted and the report reviewed and electronically signed by: TAYLOR CORONA MD on Apr 27 2021 10:31AM EST [id number] Normal [facility] ANES Sachin 04-26-2021 ANES POST HNO ID: [id number] Author: Tamara Brown DO Service: Anesthesiology Author [...] 26, 2021 TIME: 2:26 PM PAGER/CONTACT #: [phone] Normal [facility] APTTon 04-26-2021 aPTT Coag (Bld) [Time] 22.2 s Low 23.0-32.4 [facility] Comment on above: Result Comment: Unfr [...] laboratory APTT reagent in use throughout the [facility]. Performed By: #### C BC, MG1, PT, PTT, BMP, PHOS ####[facility] [place], [place] [phone] BRIEF OP NOTon 04-26-2021 BRIEF OP NOT HNO ID: [id number] Author: Kayce Wagner MD Service: Radiology Author Type: Physician Type: Brief Op Note Filed: 04/26/2021 3:28 PM Note Text: BRIEF OPERATIVE / PROCEDURE NOTE LOG ID: [id number] SURGERY/PROCEDURE DATE: 04/26/2021 INCISION/PROCEDURE START TIME: 9:25 AM INCISION CLOSE/PROCEDURE END TIME: 11:20 AM SURGEON(S)/PROCEDURALIS T(S) AND BEAUTY SALES ADVISOR(S): Surgeon(s) and Role: * Kayce Wagner MD [...] DATE: April 26, 2021 TIME: 2:59 PM [phone] Normal [facility] Basic Metabolic Panlon 04-26 Anion gap [Moles/Vol] 11 mmol/L Normal 9-18 [facility] Comment on above: Performed By: #### C BC, MG1, PT, PTT, BMP, PHOS ####[facility] [place], [place] [phone] Calcium [Mass/Vol] 8.3 mg/dL Low 8.5-10.2 [facility] Comment on above: Performed By: #### C BC, MG1, PT, PTT, BMP, PHOS ####[place] [address] [address] [phone] Chloride [Moles/Vol] 107 mmol/L High 97-105 [facility] Comment on above: Performed By: #### C BC, MG1, PT, PTT, BMP, PHOS ####[place] [address] [address] [place] [phone] CO2 [Moles/Vol] 22 mmol/L Normal 22-30 [facility] Comment on above: Performed By: #### C BC, MG1, PT, PTT, BMP, PHOS ####[place] [phone] Creatinine [Mass/Vol] 0.74 mg/dL Normal 0.58-0.96 [facility] Comment on above: Performed By: #### C BC, MG1, PT, PTT, BMP, PHOS ####[place] [address] [address] [place] [phone] eGFR- Amer. >60 Normal [facility] Comment on above: Performed By: #### C BC, MG1, PT, PTT, BMP, PHOS ####[address] [phone] eGFR-All Other Races >60 Normal [facility] Comment on above: Result Comment: eGFR [...] C BC, MG1, PT, PTT, BMP, PHOS ####[place] [address] [place], [place] [phone] Glucose [Mass/Vol] 178 mg/dL High 74-99 [facility] Comment on above: Result Comment: The [place] Diabetes Association (ADA) provides guidance for cutoff [...] Standards of Medical Care in Diabetes 2016, [place] [employer]. Diabetes Care. 2016.39(Suppl 1). Performed By: #### C BC, MG1, PT, PTT, BMP, PHOS ####[address] [phone] Potassium [Moles/Vol] 4.1 mmol/L Normal 3.7-5.1 [facility] Comment on above: Performed By: #### C BC, MG1, PT, PTT, BMP, PHOS ####[address] [phone] Sodium [Moles/Vol] 140 mmol/L Normal 136-144 [facility] Comment on above: Performed By: #### C BC, MG1, PT, PTT, BMP, PHOS ####[address] [phone] Urea nitrogen [Mass/Vol] 14 mg/dL Normal 7-21 [facility] Comment on above: Performed By: #### C BC, MG1, PT, PTT, BMP, PHOS ####[address] [phone] CBCon 04-26-2021 Absolute nRBC <0.01 Normal <0.01 [facility] Comment on above: Performed By: #### C BC, MG1, PT, PTT, BMP, PHOS ####[place] [address] [phone] Erythrocyte distribution width (RBC) [Ratio] 11.9 % Normal 11.5-15.0 [facility] Comment on above: Performed By: #### C BC, MG1, PT, PTT, BMP, PHOS ####[place] [address] [phone] Hematocrit (Bld) [Volume fraction] 38.5 % Normal 36.0-46.0 [facility] Comment on above: Performed By: #### C BC, MG1, PT, PTT, BMP, PHOS ####[place] [address] [phone] Hemoglobin (Bld) [Mass/Vol] 13.2 g/dL Normal 11.5-15.5 [facility] Comment on above: Performed By: #### C BC, MG1, PT, PTT, BMP, PHOS ####[place] [address] [place] [phone] MCH 31.7 pG Normal 26.0-34.0 [facility] Comment on above: Performed By: #### C BC, MG1, PT, PTT, BMP, PHOS ####[place] [address] [phone] MCHC (RBC) [Mass/Vol] 34.3 g/dL Normal 30.5-36.0 [facility] Comment on above: Performed By: #### C BC, MG1, PT, PTT, BMP, PHOS ####[place] [address] [phone] MCV (RBC) [Entitic vol] 92.3 fL Normal 80.0-100.0 [facility] Comment on above: Performed By: #### C BC, MG1, PT, PTT, BMP, PHOS ####[facility], [place] [phone] Platelet mean volume (Bld) [Entitic vol] 9.6 fL Normal 9.0-12.7 [facility] Comment on above: Performed By: #### C BC, MG1, PT, PTT, BMP, PHOS ####[address], [place] [phone] Platelets (Bld) [#/Vol] 227 10*3/uL Normal 150-400 [facility] Comment on above: Performed By: #### C BC, MG1, PT, PTT, BMP, PHOS ####[place] [address], [place] [phone] RBC (Bld) [#/Vol] 4.17 10*6/uL Normal 3.90-5.[address] [facility] Comment on above: Performed By: #### C BC, MG1, PT, PTT, BMP, PHOS ####[address], [place] [phone] WBC (Bld) [#/Vol] 17.98 10*3/uL High 3.70-11.00 [facility] Comment on above: Performed By: #### C BC, MG1, PT, PTT, BMP, PHOS ####[address] [phone] CONSULTon 04-26-2021 CONSULT HNO ID: [id number] Author: Jose M Cedillo MD Service: Interventional [...] Oscar BRITTON (more content not included)... Normal [facility] CONSULT HNO ID: [id number] Author: Oneida Ruano MD Service: Cardiovascular Medicine Author Type: Physician Type: Consults Filed: 04/27/2021 2:36 PM Note Text: [facility]ARD[facility]IC[facility] CONSULT NOTE Oscar Pineda [id number] CONSULTING SERVICE: SICU DATE OF ADMISSION: 04/26/2021 [...] Problems: # (more content not included)... Normal [facility] CT ABLATION MSK NOT BONE ALDO ORon 04-26-2021 CT ABLATION MSK NOT BONE TUMOR * * *Final Report* * * * * * SEE BOTTOM OF REPORT FOR ADDENDED TEXT * * * DATE OF EXAM: Apr 26 2021 11:24AM [facility] [place] ABLATION MSK NOT BONE TUMOR / PROCEDURE REASON: R19.96-Dqlmn-viywbydua and pelvic swelling, mass and lump, unspecified [...] for fur (more content not included)... Normal [facility] CT BRAIN WO IVCONon 04-26-20 CT BRAIN WO IVCON * * *Final Report* * * DATE OF EXAM: Apr 26 2021 1:45PM [facility] [place] BRAIN [place] IVCON / [...] reduction techniques were required COMPARISON: None. 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 Post-operative change: None. [...] Portable head CT demonstrating no acute findings. Veneer Supervisor: PSCB Transcribe Date/Time: Apr 26 2021 1:56P Dictated by : MARIA L SCHMIDT MD This examination was interpreted and the report reviewed and electronically signed by: MARIA L SCHMIDT MD on Apr 26 2021 1:58PM EST [id number] Normal [facility] Confirm Blood Typeon 021 ABO/RH(D) Positive Normal [facility] Comment on above: Performed By: #### C ONABO ####[address] [phone] Performed By: #### T SCR ####[address] [phone] Expedited [id number] 04-26-20 21 SARS-CoV-2 (COVID-19) RNA ROX+probe Ql (Unsp spec) UPPER RESPIRATORY TRACT SWAB Normal [facility] Comment on above: Performed By: #### E XCOVD ####[address] [phone] SARS-CoV-2 (COVID-19) RNA ROX+probe Ql (Unsp spec) Negative for COVID19 (SARS CoV2) by RT-PCR or equivalent method. Normal Negative for COVID19 (SARS CoV2) by RT-PCR or equivalent method. [facility] Comment on above: Result Comment: This test has been authorized by FDA under an Emergency Use Authorization (EUA). Test performed by [facility], [facility] [place], [address] [place], [place] [address]. Performed By: #### E XCOVD ####[address] [phone] GASV + ALLon 04-26-2021 Base Excess Negative Normal [facility] Comment on above: Performed By: #### V ALLBG ####[address] [phone] Blood Gas Comm, Ziyad .VENOUS Normal [facility] Comment on above: Performed By: #### V ALLBG ####[address] [phone] Body temperature 98.6 [degF] Normal [facility] Comment on above: Performed By: #### V ALLBG ####[address] [phone] Calcium [Moles/Vol] 1.23 mmol/L Normal 1.08-1.30 [facility] Comment on above: Performed By: #### V ALLBG ####[address] [phone] Carboxyhemoglobin, Ziyad 0.9 % Normal <2.1 [facility] Comment on above: Performed By: #### V ALLBG ####[address] [phone] CO2 [Moles/Vol] 27 mmol/L Normal 25-29 [facility] Comment on above: Performed By: #### V ALLBG ####[address] [phone] Glucose [Mass/Vol] 144 mg/dL High 60-105 [facility] Comment on above: Performed By: #### V ALLBG ####[address] [phone] HCO3 (Bld) [Moles/Vol] 25 mmol/L Normal 24-28 [facility] Comment on above: Performed By: #### V ALLBG ####[place] [address], [place] [phone] Hematocrit (Bld) [Volume fraction] 43.2 % Normal 36.0-46.0 [facility] Comment on above: Performed By: #### V ALLBG ####[place] [address] [phone] Hemoglobin (Bld) [Mass/Vol] 14.1 g/dL Normal 11.5-15.5 [facility] Comment on above: Performed By: #### V ALLBG ####[place] [address], [place] [phone] Lactate [Moles/Vol] 2.0 mmol/L Normal 0.5-2.2 [facility] Comment on above: Performed By: #### V ALLBG ####[place] [address] [place] [phone] Methemoglobin 0.7 % Normal <1.6 [facility] Comment on above: Performed By: #### V ALLBG ####[place] [address] [phone] O2 Administered 100% Normal [facility] Comment on above: Performed By: #### V ALLBG ####[place] [address], [place] [phone] Oxyhemoglobin, Ziyad. 81 % Normal 60-85 [facility] Comment on above: Performed By: #### V ALLBG ####[place] [address], [place] [phone] pCO2 53 mm Hg Normal 42-55 [facility] Comment on above: Performed By: #### V ALLBG ####[place] [address], [place] [phone] pCO2, Temp Correct 53 mm Hg Normal 42-55 [facility] Comment on above: Performed By: #### V ALLBG ####[place] [address], [place] [phone] pH (Bld) 7.30 [pH] Low 7.32-7.42 [facility] Comment on above: Performed By: #### V ALLBG ####[place] [address] [place] [phone] pH, Temp Corrected 7.30 Low 7.32-7.42 [facility] Comment on above: Performed By: #### V ALLBG ####[place] [address] [place] [phone] pO2 52 mm Hg High 35-45 [facility] Comment on above: Performed By: #### V ALLBG ####[place] [phone] pO2, Temp Corrected 52 mm Hg High 35-45 [facility] Comment on above: Performed By: #### V ALLBG ####[place] [phone] Potassium [Moles/Vol] 4.4 mmol/L Normal 3.5-5.0 [facility] Comment on above: Performed By: #### V ALLBG ####[place] [address] [place] [phone] Sodium [Moles/Vol] 142 mmol/L Normal 136-144 [facility] Comment on above: Performed By: #### V ALLBG ####[place] [phone] Base Excess Negative Normal [facility] Comment on above: Performed By: #### V ALLBG ####[place] [address] [place] [phone] Blood Gas Comm, Ziyad .VENOUS Normal [facility] Comment on above: Performed By: #### V ALLBG ####[place] [address], [place] [phone] Body temperature 98.6 [degF] Normal [facility] Comment on above: Performed By: #### V ALLBG ####[place] [address], [place] [phone] Calcium [Moles/Vol] 1.25 mmol/L Normal 1.08-1.30 [facility] Comment on above: Performed By: #### V ALLBG ####[address] [phone] Carboxyhemoglobin, Ziyad 0.5 % Normal <2.1 [facility] Comment on above: Performed By: #### V ALLBG ####[place] [address], [place] [phone] CO2 [Moles/Vol] 25 mmol/L Normal 25-29 [facility] Comment on above: Performed By: #### V ALLBG ####[address] [phone] Glucose [Mass/Vol] 172 mg/dL High 60-105 [facility] Comment on above: Performed By: #### V ALLBG ####[place] [address], [place] [phone] HCO3 (Bld) [Moles/Vol] 24 mmol/L Normal 24-28 [facility] Comment on above: Performed By: #### V ALLBG ####[place] [address], [place] [phone] Hematocrit (Bld) [Volume fraction] 44.2 % Normal 36.0-46.0 [facility] Comment on above: Performed By: #### V ALLBG ####[place] [address] [place] [phone] Hemoglobin (Bld) [Mass/Vol] 14.4 g/dL Normal 11.5-15.5 [facility] Comment on above: Performed By: #### V ALLBG ####[place] [address] [phone] Lactate [Moles/Vol] 2.4 mmol/L High 0.5-2.2 [facility] Comment on above: Performed By: #### V ALLBG ####[place] [address] [place] [phone] Methemoglobin 1.2 % Normal <1.6 [facility] Comment on above: Performed By: #### V ALLBG ####[place] [phone] O2 Administered 100% Normal [facility] Comment on above: Performed By: #### V ALLBG ####[place] [address] [place] [phone] Oxyhemoglobin, Ziyad. 98 % High 60-85 [facility] Comment on above: Performed By: #### V ALLBG ####[place] [address] [place] [phone] pCO2 46 mm Hg Normal 42-55 [facility] Comment on above: Performed By: #### V ALLBG ####[place] [address] [place] [phone] pCO2, Temp Correct 46 mm Hg Normal 42-55 [facility] Comment on above: Performed By: #### V ALLBG ####[place] [address], [place] [phone] pH (Bld) 7.33 [pH] Normal 7.32-7.42 [facility] Comment on above: Performed By: #### V ALLBG ####[place] [address] [phone] pH, Temp Corrected 7.33 Normal 7.32-7.42 [facility] Comment on above: Performed By: #### V ALLBG ####[place] [address] [place], [place] [phone] pO2 246 mm Hg High 35-45 [facility] Comment on above: Performed By: #### V ALLBG ####[place] [address] [place], [place] [phone] pO2, Temp Corrected 246 mm Hg High 35-45 [facility] Comment on above: Performed By: #### V ALLBG ####[place] [address] [place], [place] [phone] Potassium [Moles/Vol] 4.4 mmol/L Normal 3.5-5.0 [facility] Comment on above: Performed By: #### V ALLBG ####[address] [phone] Sodium [Moles/Vol] 143 mmol/L Normal 136-144 [facility] Comment on above: Performed By: #### V ALLBG ####[place] [address] [place], [place] [phone] HISTORY PHYSICALon HISTORY PHYSICAL HNO ID: [id number] Author: Kayce Wagner MD Service: Radiology Author [...] April 26, 2021 TIME: 8:54 PM Normal [facility] Magnesiumon 04-26-2021 Magnesium [Mass/Vol] 1.9 mg/dL Normal 1.7-2.3 [facility] Comment on above: Performed By: #### C BC, MG1, PT, PTT, BMP, PHOS ####[facility] [address] [place], [place] [phone] NURSING PROGon 04-26-2021 NURSING PROG HNO ID: [id number] Author: Jack Richards RN Service: Nursing Author Type: Registered Nurse Type: Nursing Progress Note Filed: 04/26/2021 9:21 PM Note Text: Nursing Progress: Topic: RESTRAINT NON-VIOLENT PATIENT NAME: Oscar Pineda PATIENT LOCATION: [place] [address]/[place] [address] The patient demonstrates Lack of Understanding/Ability to [...] TIME: 8:00 PM Jack Richards RN Normal [facility] NURSING PROG HNO ID: [id number] Author: Karsten Goldsmith RN Service: Nursing Author Type: Registered Nurse Type: Nursing Progress Note Filed: 04/26/2021 6:59 PM Note Text: Nursing Progress: Topic: RESTRAINT NON-VIOLENT PATIENT NAME: Oscar Pineda PATIENT LOCATION[place] [facility] [place] [id number]/[id number] The patient demonstrates Lack of Understanding/Ability [...] TIME: 6:58 PM Karsten Goldsmith RN Normal [facility] PT EDon 04-26-2021 PT ED HNO ID: [id number] Author: Agnes Schaefer RN Service: Interventional Radiology [...] SUPPLEMENTAL MATERIAL: None REFERRAL (RECOMMENDATION): None Normal [facility] Phosphoruson 04-26-2021 Phosphate [Mass/Vol] 3.1 mg/dL Normal 2.7-4.8 [facility] Comment on above: Performed By: #### C BC, MG1, PT, PTT, BMP, PHOS ####[facility] [place], [place] [phone] Protimeon 04-26-2021 PT INR 1.1 Normal 0.9-1.3 [facility] Comment on above: Result Comment: Neha min K Antagonist (VKA) Therapeutic Range: INR 2 to 3 (Target INR of 2.5) Note: For patients treated with VKA drugs, such as warfarin, the [place] [employer] 2012 Guideline recommends [...] Chest 2012, 141:7S-47S Daphne PEDERSON, et al. [facility] 2017, 70: 252-289 Performed By: #### C BC, MG1, PT, PTT, BMP, PHOS ####[facility] [place], [place] [phone] PT Sec 11.9 sec Normal 9.7-13.0 [facility] Comment on above: Performed By: #### C BC, MG1, PT, PTT, BMP, PHOS ####[facility] [address] [place], [place] [phone] Staph aureus PCRon 1 MRSA PCR Negative Normal [facility] Comment on above: Performed By: #### S APCR ####[facility], [place] [phone] S aureus Spec Source Nasal Normal [facility] Comment on above: Performed By: #### S APCR ####[facility] [place], [place] [phone] Staph aureus PCR Negative Normal [facility] Comment on above: Performed By: #### S APCR ####[address] [employer] [phone] XR ABDOMEN 1V SUPINEon 04-26 XR ABDOMEN [...] loops of bowel. No focal bony abnormality. Veneer Supervisor: ANEL Transcribe Date/Time: Apr 26 2021 2:53P Dictated by : RAMIN BROWNLEE MD This examination was interpreted and the report reviewed and electronically signed by: RAMIN BROWNLEE MD on Apr 26 2021 3:05PM EST [id number] Normal [facility] XR CHEST 1V FRONTAL PORTon 1 [...] No acute process identified. IMPRESSION: See result. Veneer Supervisor: PSCB Transcribe Date/Time: Apr 26 2021 6:05P Dictated by : JASON LOWE MD This examination was interpreted and the report reviewed and electronically signed by: JASON LOWE MD on Apr 26 2021 6:07PM EST [id number] Normal [facility] XR CHEST 1V FRONTAL PORT * [...] No acute process identified. IMPRESSION: See result. Veneer Supervisor: PSCB Transcribe Date/Time: Apr 26 2021 3:57P Dictated by : JASON LOWE MD This examination was interpreted and the report reviewed and electronically signed by: JASON LOWE MD on Apr 26 2021 3:58PM EST [id number] Normal [facility] NURSING PROGon 04-24-2021 NURSING PROG HNO ID: [id number] Author: Shereen Kwok LPN Service: ? Author Type: LICENSED NURSE Type: Nursing Progress Note Filed: 04/24/2021 2:42 PM Note Text: Pre-procedure instructions: Contacted patient and confirmed appt. for Cryoablation scheduled on 04/26/21, at [facility]. Diet: Do not eat solid food [...] signed. Arrival at 6:30am to desk QB[facility] ([facility]) and check in for your procedure. Forensic Sergeant/Transportation: How will you be arriving for your procedure? Private car. If you will be arriving at [facility] via ambulance or public transportation, please call to discuss. You will need a responsible adult to accompany you to and from the procedure. Your livery car driver is required to stay with you until you are taken into the Procedure room. [facility] is currently restricting visitors to two visitors per patient. No visitor under the age of 16. You and your visitor will be screened for temperature and COVID-19 symptoms upon entry to the hospital, and a wristband will be applied when cleared. If you develop any of the following symptoms before your procedure, please call [phone]. Chills, joint pain, rash, sore throat, cough, [...] No Written instructions provided to patient via [employer] If you have any questions please call [phone] Normal [facility] MRI ABDOMEN WO/W IVCONon [facility] Vital Signs Date Time Vital Sign Value Performing Clinician Facility 10-10-2022 10:00-0400 Body height 161.29 cm Shaun Valentine Other [facility] Other 10-10-2022 10:00-0400 Body mass index (BMI) [Ratio] 23.08 kg/m2 Shaun Ball Other [facility] Other 10-10-2022 10:00-0400 Body weight 60.06 kg Shaun Ball Other [facility] Other 10-10-2022 10:00-0400 Diastolic blood pressure 76 mm[Hg] Shaun Ball Other [facility] Other 10-10-2022 10:00-0400 Respiratory rate 12 /min Shaun Ball Other [facility] Other 10-10-2022 10:00-0400 Systolic blood pressure 110 mm[Hg] Shaun Ball Other [facility] Other 04-28-2022 15:46-0400 Body temperature 99.5 [degF] Melani Russell MD Work Phone: [facility] 04-28-2022 15:46-0400 Body weight 76.39 kg Melani Russell MD Work Phone: [facility] 04-28-2022 15:46-0400 Diastolic blood pressure 76 mm[Hg] Melani Russell MD Work Phone: [facility] 04-28-2022 15:46-0400 Heart rate 71 /min Melani Russell MD Work Phone: [facility] 04-28-2022 15:46-0400 Respiratory rate 20 /min Melani Russell MD Work Phone: [facility] 04-28-2022 15:46-0400 SaO2% (BldA) [Mass fraction] 97 % Melani uRssell MD Work Phone: [facility] 04-28-2022 15:46-0400 Systolic blood pressure 131 mm[Hg] Melani Russell MD Work Phone: [facility] Encounters Encounter Date Encounter Type [...] examination without abnormal findings DR SHAUN VALENTINE [facility] Start: 10-27-2022 Telephone encounter Shaun Valentine [facility] Start: 10-27-2022 End: 10-28-[address] SHAUN VALENTINE [facility] [employer] Other Start: 10-27-2022 End: 10-28-2022 Encounter for general adult medical examination without abnormal findings DR SHAUN VALENTINE Facility: Start: 10-10-2022 End: 10-10-2022 ambulatory Shaun Valentine Other [facility] Other Start: 10-10-2022 Encounter for genera l adult medical examination without abnormal findings Shaun Valentine [facility] Start: 10-10-2022 Periodic preventive med est patient 18-39 yrs Shaun Valentine [facility] Start: 04-28-2022 End: 04-29-2022 ambulatory Melani Russell MD Work Phone: Hematology/Oncology Comment on above: History of tumor (Pr imary Dx) Start: 04-28-2022 End: 04-29-2022 Patient encounter procedure Melani Russell MD Work Phone: [facility] Start: 04-21-2022 End: 04-21-2022 ambulatory MELANI RUSSELL Facility:[facility] Start: 04-21-2022 End: 04-21-2022 Subsequent hospital visit by physician Kiel [facility] (I-Stat/1.5t/3t) Work Phone: MRI Q 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] Start: 11-14-2021 ambulatory Melani Hutchison Work Phone: Hematology/Oncology 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 Start: 10-28-2021 Telephone encounter Melani Acuña rd, MD Work Phone: Hematology/Oncology Comment on above: Care Coordination Start: 09-27-2021 End: 09-27-2021 ambulatory MELANI RUSSELL Facility:[facility] Start: 09-20-2021 End: 09-20-2021 ambulatory MELANI RUSSELL Facility:[facility] Start: 05-07-2021 End: 05-07-2021 ambulatory ALEX URBANO [facility] Start: 05-06-2021 End: 05-06-2021 ambulatory ALEX URBANO [facility] Start: 04-26-2021 End: 04-30-2021 Evaluation and management of inpatient FASALAL POLIAWI [facility] Start: 02-28-2021 End: 02-28-2021 Subsequent hospital visit by physician Kiel [facility] (I-Stat/1.5t) Radiology Comment on above: Intra-abdominal and pelvic swelling, mass and lump, unspecified site [R19.00] Procedures Date Procedure Procedure Detail Performing Clinician Start: 04-29-2021 Antibody screen ALEX URBANO Comment on above: Performed By: #### T SCR ####[facility] [id number] [place], [place] [phone] Start: 04-26-2021 Antibody screen ALEX URBANO Comment on above: Performed By: #### T SCR ####[facility] [address] [place], [place] [phone] Start: 02-28-2021 Mri abdomen w/o & w/contrast material Cortez Carter MD Work Phone: Plan of Treatment Date Care Activity Detail Author Start: 03-20-2023 Covid-19 Vaccine () Covid-19 Vaccine () [facility] Start: 03-20-2023 Influenza vaccination [facility] Start: 10-28-2022 End: 05-29-2023 Mri abdomen w/o & w/contrast material MRI ABDOMEN WO/W IVCON Radiology Routine History of tumor Expected: 10/28/2022, Expires: 05/29/2023 [facility] Work Phone: Comment on above: Expected: 10/28/2022 , Expires: 05/29/2023 Start: 10-28-2022 End: 05-29-2023 Mri pelvis w/o & w/contrast material MRI PELVIS WO/W IVCON Radiology Routine History of tumor Expected: 10/28/2022, Expires: 05/29/2023 [facility] Work Phone: Comment on above: Expected: 10/28/2022 , Expires: 05/29/2023 Start: 10-26-2022 End: 12-26-2022 CBC W Auto Differential panel - Blood ABS GRAN CT + CBC Lab Routine History of tumor Expected: 10/26/2022 (Approximate), Expires: 12/26/2022 [facility] Work Phone: Comment on above: Expected: 10/26/2022 (Approximate), Expires: 12/26/2022 Start: 10-26-2022 End: 12-26-2022 Comprehensive metabolic 2000 panel - Serum or Plasma COMP METABOLIC PANEL Lab Routine History of tumor Expected: 10/26/2022 (Approximate), Expires: 12/26/2022 [facility] Work Phone: Comment on above: Expected: 10/26/2022 (Approximate), Expires: 12/26/2022 Start: 07-20-2022 DEPRESSION ASSESSMENT DEPRESSION ASS ESSMENT [facility] Start: 03-20-2022 Influenza vaccination [facility] Start: 09-12-2021 COVID-19 VACCINE (3 - Booster for Pfizer series) COVID-19 VACCINE (3 - Booster for Pfizer series) [facility] Start: 07-20-2021 DEPRESSION ASSESSMENT DEPRESSION ASS ESSMENT [facility] Start: 06-07-2021 COVID-19 VACCINE (3 - Booster for Pfizer series) COVID-19 VACCINE (3 - Booster for Pfizer series) [facility] Start: 06-07-2021 COVID-19 VACCINE (3 - Pfizer series) COVID-19 VACCINE (3 - Pfizer series) [facility] Start: 03-15-2020 Urine microalbumin profile DTaP,Tdap,Td Vaccine (2 - Tdap) [facility] Start: 2014 HPV TESTING HPV TESTING [facility] Start: 2005 PAP TESTING PAP TESTING [facility] Start: 2003 Urine microalbumin profile DTAP,TDAP,TD (1 - Tdap) [facility] Start: 2002 HEPATITIS C SCREENING HEPATITIS C SC REENING [facility] Start: 2002 HIV SCREENING HIV SCREENING [facility] Start: 1996 Adult depression screening assessment DEPRESSION SCREENING [facility] Start: 1984 HEPATITIS B (1 of 3 - 3-dose series) HEPATITIS B (1 of 3 - 3-dose series) [facility] Start: 1984 Hepatitis B Vaccine (1 of 3 - 3-dose series) Hepatitis B Vaccine (1 of 3 - 3-dose series) [facility] End: 04-21-2022 Mri abdomen w/o & w/contrast material [facility] Work Phone: Comment on above: 1 Occurrences starti ng 04/21/2022 until 04/21/2022 End: 04-21-2022 Mri pelvis w/o & w/contrast material [facility] Work Phone: Comment on above: 1 Occurrences starti ng 04/21/2022 until 04/21/2022 [facility] Immunizations Immunization Date Immunization Notes Care Provider Fa cility 04-12-2021 COVID-19 Vaccine Pfi zer - Documentation Purposes Only Shaun Valentine Other [facility] Other 03-22-2021 COVID-19 Vaccine Pfi zer - Documentation Purposes Only Shaun Valentine Other [facility] Other 06-09-2019 influenza virus vaccine, unspecified formulation Mri (I-Stat/1.5t) [facility] Payers Date Payer Category Payer Private Health Insurance [employer] A ETNA CHOICE POS [id number] 2015-Present [phone] [address] [place] [address] POS [id number] 2015 Private Health Insurance [id number] 1984 Unknown [id number] 1984 Unknown [id number] .[id number] 1984 Unknown [id number] .9 1984 Unknown [id number] .1259 1984 Unknown [id number] .1259 1984 Unknown [id number] .1259 1984 Unknown [id number] .9 1984 Unknown [id number] [id number] .1259 1984 Unknown [id number] .9 1959 Private Health Insurance [id number] Private Health Insurance [id number] Social History Date Type Detail Facility Start: 02-14-2021 Tobacco smoking stat us NHIS Never smoked tobacco [facility] Start: 02-14-2021 Tobacco use and exposure Smoke less tobacco non-user [facility] Start: 1984 Sex Assigned At Female [facility] Start: 01-15-2021 End: 04-28-2022 Exposure to SARS-CoV-2 (event) Not sure [facility] Start: 02-14-2021 End: 05-07-2021 Sex Assigned At [facility] Start: 02-14-2021 End: 05-07-2021 History of Social function [facility] Adult Depression Screening Assessment 0 [facility] Start: 02-26-2021 Gender identity Identifies as female gender (finding) [facility] Start: 03-27-2021 Sexual orientation Heterosexual (fin ding) [facility] Clinical Notes 02-28-2021 to 10-10-2022 Note Date & Type Note Facility 10-10-2022 Evaluation note Encounter Date Diagnosis Assessment Notes Sep, Wellness examination (ICD-10 - Z00.00) Sep, Hair thinning (ICD-10 - L65.9) Check H/H and TSH Not scarring [facility] Other [id number] History of Present illness Narrative* Melani Russell [...] Hematology and Medical Oncology [facility] Nurse Note* Aliya Jean Baptiste RN - 04/28/2022 3:43 PM EDT Additional intake questions: Has the patient had fever, nausea, vomiting, diarrhea, constipation, fatigue for > 1 week? No Does the patient have a decreased appetite? No Does patient want to see a Mohs Surgeon/General Dermatologist? No (yes to any of above refer [...] Aliya Jean Baptiste RN documented [facility]-2022 NoteHNO ID: [id number] Author: Erin Garcia RN Service: ? Author [...] Pineda DATE: April 21, 2022 TIME: 5:35 [facility] NoteHNO ID: [id number] Author: RT Toby(R) Service: Radiology Author Type: [...] BY: RT Toby(Lizzy) April 21, 2022 6:08 [facility]10-03-2022 History of Present illness Narrative* Erin Garcia [...] 21, 2022 6:08 PM documented in [facility]04-[facility]22 Miscellaneous Notes* Telephone Encounter - Brittany Avendaño [facility] - 10/30/2021 3:24 PM EDT Patient calling stating she has not received a call back, Please call @ [phone] * Telephone Encounter - Brittany Avendaño [facility] - 10/28/2021 10:02 AM EDT Oscar Pineda is calling Melani Russell MD today regarding Care Coordination,calling with questions about with her condition. Patient has been identified by name and birthdate. Duration of symptoms: N/A Requesting response back: call on cell [phone] (home) [phone] (cell) Brittany Avendaño [facility] October 28, 2021 documented in this encounterZ[facility]03-[facility]-2022 NoteHNO ID: [id number] Author: Melani Russell MD Service: ? Author Type: Physician Type: Progress Notes Filed: 10/07/2021 12:24 PM Note Text: [facility] ESTABLISHED PATIENT VISIT PATIENT NAME: Oscar Pineda [...] Melani Pérez MD Internal Medicine Resident, PGY-1 [facility] 09/27/2021 SOLID TUMOR STAFF: ATTENDING PHYSICIAN NOTE [...] Russell MD, PhD Staff, Hematology and [facility]cology[facility]03[facility]-2022 Note HNO ID: [id number] Author: Shannan Ansari RT(R) Service: Radiology Author [...] BY: RT Eduardo(R) September 20, 2021 4:17 [facility]03-04-2022 NoteHNO ID: [id number] Author: Ronda Arora Service: ? Author Type: [...] Pineda DATE: September 20, 2021 TIME: 3:22 [facility]10-18-2021 NoteHNO ID: [id number] Author: LANETTE De Leon Service: ? Author Type: Genetic Counselor Type: Progress Notes Filed: 05/24/2021 11:18 AM Note Text: [facility] Consultation Note Genetic Counselor: Melida Quintero MS, [facility] Patient: Oscar Pineda Patient Name and confirmed at initiation of visit Visit was done virtually via Zoom Portions of the visit were done by genetic counseling international trade compliance manager Suzanna Fishman under my supervision HIGH LEVEL [...] unknown descent and paternal ancestors are of Luxembourger and [place]riot descent. There is no Ashkenazi Restorationist ancestry. The patient had limited information about [...] that the patient's genetic (more content not included)...[facility]10-12-2021 NoteHNO ID: [id number] Author: Katty Logan APRN.FAX MACHINE REPAIRER Service: Critical Care Author Type: Nurse Practitioner [...] the A/P section below. Please refer to [email or web address] for list of inpatient medications. VITAL SIGNS: [...] room air today KIMBER (more content not included)...[facility]10-11-2021 NoteHNO ID: [id number] Author: Kayce Wagner MD Service: Radiology Author [...] her to go home. Kayce Wagner MD [phone] State East Hospital10-11-2021 NoteHNO ID: [id number] Author: Marva Stiles APRN.CNP Service: Critical Care [...] Completed decadron -> transitioned to medrol. Consulted [facility] for transfer of service. Addendum @ 1115: pt to remain in SICU, [facility] does not feel comfortable accepting pt given supplemental O2 needs and < 24 hrs since extubation. Objective MEDICATIONS: Current medications and allergies reviewed. Recommended/planned medication changes discussed in detail in the A/P section below. Please refer to [email or web address] for list of inpatient medications. VITAL SIGNS: [...] Is Patient Clinically Ready to Transfer to [facility] or SDU?: Yes, transfer to SDU or [facility] today Discharge Planning: Home Prevention: Line [...] issues, SpO2 > 92% - Transfer to [facility] or home tomorrow Pulmonary Acute respiratory insufficiency Intubated in IR (cryoablation of desmoid tumor), transferred to SICU intubated and on 100% FiO2 (more content not included)...[facility]10-11-2021 NoteHNO ID: [id number] Author: Jose M Cedillo MD Service: Interventional [...] who presented for cryoablation on 04/26 with [facility] radiology. Pt suffered iatrogenic air embolism to [...] April 29, 2021 TIME: 8:45 AM PAGER/CONTACT #:[facility]10-10-2021 NoteHNO ID: [id number] Author: Sara Guzman APRN.NGUYEN Service: Critical Care [...] the A/P section below. Please refer to [email or web address] for list of inpatient medications. VITAL SIGNS: [...] Current Assessment AND Pl (more content not included)...[facility]10-10-2021 NoteHNO ID: [id number] Author: Jose M Cedillo MD Service: Interventional [...] who presented for cryoablation on 04/26 with [facility] radiology. Pt suffered iatrogenic air embolism to [...] April 29, 2021 TIME: 8:34 AM PAGER/CONTACT #:[facility]10-09-2021 NoteHNO ID: [id number] Author: Ana Bautista RT(R) Service: Radiology Author [...] RDMS, EARLT, Wallace April 27, 2021 12:23 [facility]10-09-2021 History of Past illness Narrative* Problem Noted [...] of this encounter (statuses as of 11/01/2021) [facility]10-09-[facility] History of Past illness Narrative* [...] of this encounter (statuses as of 11/19/2021) [facility]10-09-2021 History of Past illness Narrative* [...] of this encounter (statuses as of 04/22/2022) [facility]10-09-2021 History of Past illness Narrative* [...] of this encounter (statuses as of 04/29/2022) [facility]10-09-2021 History of Past illness Narrative* [...] of this encounter (statuses as of 02/25/2023) [facility]10-09-2021 NoteHNO ID: [id number] Author: Anila Wise APRN.NGUYEN Service: Critical Care [...] Is Patient Clinically Ready to Transfer to [facility] or [facility]U?: No Discharge Planning: To [...] Pulmonary Acute respiratory insufficie (more content not included)...[facility]10-09-2021 NoteHNO ID: [id number] Author: Jose M Cedillo MD Service: Interventional [...] to look for air in the hepatic veinsOhio State East Hospital 04-27-2021 NoteHNO ID: [id number] Author: Interface Note Service: ? Author Type: ? Type: Progress Notes Filed: 04/27/2021 2:51 AM Note Text: [facility] Scheduled Downtime: 04/27/2021 1:00:00 AM to 04/27/2021 2:33:00 [facility]10-08-2021 NoteHNO ID: [id number] Author: Marva Stiles APRN.CNP Service: Critical Care [...] the A/P section below. Please refer to [facility] for list of inpatient medications. VITAL [...] Is Patient Clinically Ready to Transfer to [facility] or [facility]U?: No Discharge Planning: To [...] 1245 vte pharmacologic prophyl (more content not included)...[facility]10-08-2021 NoteHNO ID: [id number] Author: Galdino Gaona DO Service: Critical Care Author Type: Fellow Type: Procedures Filed: 04/26/2021 4:34 PM Note Text: BEDSIDE PROCEDURE NOTE CENTRAL LINE INSERTION Date/Start Time: 04/26/2021 4:33 PM Performed by: Galdino Gaona DO Authorized by: Polly Reyna MD Informed Consent Consent Obtained: Written Harts Protocol A moment to CARE was completed. [...] was applied following the usual aseptic technique. [facility] Central Line Insertion Checklist, attached [...] Pineda DATE: April 26, 2021 TIME: 4:32 [facility]10-08-2021 NoteHNO ID: [id number] Author: Polly Reyna MD Service: Critical Care [...] MD SICU Staff. 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 Intra-abdominal and pelvic swelling, mass and lump, unspecified site Abdominal mass, unspecified abdominal location documented in this encounter [facility] note* Diagnosis History of tumor- Primary Personal history of other specified diseases documented in this encounter [facility] noteNo InformationNortHahn[facility] [employer] Other History general Narrative - Reported* Type Description Date Medical History Fatigue Medical History Gall bladder polyp Medical History Atopic dermatitis, mild Medical History DESMOID FIBROMATOSIS Surgical History C section x 3 Surgical History wisdom teeth Surgical History RIGHT ABDOMINAL WALL MASS Hospitalization History see above [facility] [employer] Other Advance Directives No Advanced Directives Records FoundDocuments on File Type Date Recorded Patient Hog Counter Expl anation Advance Directive(s) 04/10/2021 12:55 PM Advance Directive(s) 03/07/2021 6:15 PM Reason for Referral Specialty Diagnoses / Procedures Referred By Contac t Referred To Contact MR IMAGING Diagnoses Desmoid Abdominal mass, unspecified abdominal location Procedures MRI PELVIS WO/W IVCON MRI PELVIS W/O & W/CONTRAST MATERIAL Melani Russell MD [address] [place] [address] Mr Imaging Referral ID Status Reason Start Date Expiration Date V isits Requested Visits Authorized [id number] Closed Auto-Generate d Referral 03/30/2022 10/27/2022 1 1 Specialty Diagnoses / Procedures Referred By Contac t Referred To Contact MR IMAGING Diagnoses Desmoid Intra-abdominal and pelvic swelling, mass and lump, unspecified site Procedures MRI ABDOMEN WO/W IVCON MRI ABDOMEN W/O & W/CONTRAST MATERIAL Melani Russell MD [address] [place] [address] Mr Imaging Referral ID Status Reason Start Date Expiration Date V isits Requested Visits Authorized [id number] Closed Auto-Generate d Referral 03/30/2022 10/27/2022 1 1 Specialty Diagnoses / Procedures Referred By Contac t Referred To Contact MR IMAGING Diagnoses History of tumor Procedures MRI PELVIS WO/W IVCON MRI PELVIS W/O & W/CONTRAST MATERIAL Melani Russell MD [address] [place] [address] Mr Imaging Referral ID Status Reason Start Date Expiration Date Visits Requested Visits Authorized [id number] Pending Review Auto-Generat ed Referral 10/28/2022 05/29/2023 1 1 Specialty Diagnoses / Procedures Referred By Katie verdugo Referred To Contact MR IMAGING Diagnoses History of tumor Procedures MRI ABDOMEN WO/W IVCON MRI ABDOMEN W/O & [place] [address] [place] [address] Mr Imaging Referral ID Status Reason Start Date Expiration Date Visits Requested Visits Authorized [id number] Pending Review Auto-Generat ed Referral 10/28/2022 05/29/2023 [...] or prosecute any alcohol or drug abuse patient.[facility] HospitalIn the event this information is protected by the Federal Confidentiality of Alcohol and Drug Abuse Patient Records regulations: The Federal rules restrict any use of the information to criminally investigate or prosecute any alcohol or drug abuse patient.[facility] HospitalIn the event this information is protected by the Federal Confidentiality of Alcohol and Drug Abuse Patient Records regulations: The Federal rules restrict any use of the information to criminally investigate or prosecute any alcohol or drug abuse patient.[facility] HospitalIn the event this information is protected by the Federal Confidentiality of Alcohol and Drug Abuse Patient Records regulations: The Federal rules restrict any use of the information to criminally investigate or prosecute any alcohol or drug abuse patient.[facility] HospitalIn the event this information is protected by the Federal Confidentiality of Alcohol and Drug Abuse Patient Records regulations: The Federal rules restrict any use of the information to criminally investigate or prosecute any alcohol or drug abuse patient.[facility] HospitalIn the event this information is protected by the Federal Confidentiality of Alcohol and Drug Abuse Patient Records regulations: The Federal rules restrict any use of the information to criminally investigate or prosecute any alcohol or drug abuse patient.[facility] Reason for Visit (unrecogniz ed section and content) Reason Comments Care Coordination Reason Comments Radiology MRI Specialty Diagnoses / Procedures Referred By Contac t Referred To Contact MR IMAGING Diagnoses Desmoid Intra-abdominal and pelvic swelling, mass and lump, unspecified site Procedures MRI ABDOMEN WO/W IVCON MRI ABDOMEN W/O & [place] [address] [place] [address] Mr Imaging Referral ID Status Reason Start Date Expiration Date V isits Requested Visits Authorized [id number] Closed Auto-Generate d Referral 03/30/2022 10/27/2022 1 1 Reason Comments Established Patient Reason Comments Radiology MRI Specialty Diagnoses / Procedures Referred By Contac t Referred To Contact MR IMAGING Diagnoses Intra-abdominal and pelvic swelling, mass and lump, unspecified site Procedures MRI ABDOMEN WO/W IVCON MRI,ABDOMEN,W&WO Cortez Dubois MD [address] [place] [address] [place] [address] Referral ID Status Reason Start Date Expiration Date V isits Requested Visits Authorized [id number] Closed Auto-Generate d Referral 02/14/2021 03/16/2022 1 1 Care Teams (unrecognized sec tion and content) Jewelry Finisher Relationship Specialty [place] [address] [place] [address] Physician Hematology/Oncology 05/20/21 Chey Tamayo, RN [address] [place] [id number] Specialty Aerial Photograph Interpreter Oncology 05/20/21 Jewelry Finisher Relationship Specialty Start Date End Date Melani Russell [place] [id number] [place] [id number] Physician Hematology/Oncology 05/20/21 Claritza Tamayo RN [address] [place] [id number] Specialty Aerial Photograph Interpreter Oncology 05/20/21 Jewelry Finisher Relationship Specialty Start [place] [address] [place], [place] [id number] Physician Hematology/Oncology 05/20/21 [place] [address] [place] [address] Specialty Aerial Photograph Interpreter Oncology 05/20/21 Jewelry Finisher Relationship Specialty Start Date [place] Melani Russell [place] [id number] [place] [address] [id number] Physician Hematology/Oncology 05/20/21 Claritza Tamayo RN [address] [place] [id number] Specialty Aerial Photograph Interpreter Oncology 05/20/21 Jewelry Finisher Relationship Specialty Start Date End Date Melani Russell MD [address] [place] [address] [id number] Physician Hematology/Oncology 05/20/21 [place] [id number] [place], [place] [id number] Specialty Aerial Photograph Interpreter Hematology/Oncology 06/10/22 INFORMATION SOURCE (unrecogn ized section and content) DATE CREATED AUTHOR 04/23/2022 [facility] DATE CREATED AUTHOR AUTHOR'S ORGANIZ ATION 11/02/2022 [facility] DATE CREATED AUTHOR AUTHOR'S ORGANIZ ATION 09/28/2023 [facility] FOR RECORDS PERTAINING TO PATIENTS [...] BE BASED ON THE PRIMARY CLINICAL RECORDS. [facility]. provides no warranty or guarantee of the accuracy or completeness of information in this document.
--- NOTE | 2023-10-02 09:31 | US_ITS ---
[address] [address] Patient Name: OSCAR MELO MRN: [facility]:[id number] date: 1985 Sex: F Assigned Patient Location: [facility] Current Patient Location: [facility] Accession/Order Number: [id number] Exam Date: 10/02/2023 09:36 Report Date: 10/02/2023 10:39 At the request of: SUKHJINDER WIN Procedure: US OB BPP w non-stress EXAMINATION: US OB BPP w non-stress HISTORY: EXCESSIVE GROWTH O36.60X0 COMPARISON: Ultrasound OB biophysical 09/25/2023 TECHNIQUE: Ultrasound biophysical profile was performed in the radiology department. BREATHING MOVEMENTS: 2.0 GROSS BODY MOVEMENTS: 2.0 TONE: 2.0 QUALITATIVE AMNIOTIC FLUID VOLUME: 2.0 PRESENTATION: CEPHALIC HEART RATE: 145.2 bpm bpm. AMNIOTIC FLUID VOLUME: 15.4 cm GESTATIONAL AGE: 37 weeks 0 days CONCLUSION: Total biophysical profile score 8.0. Electronically authenticated by: ADRIAN BRYANT Date: 10/02/2023 10:39
[2023-10-02 10:00] VITALS: BP 120/75; PULSE 73; TEMP 36.6
== END 2023-10-02 11:28 | disposition home or self-care (01) ==
LOC: US 07:25 → FBC 09:29
PROVIDERS: PCP Internal Medicine; Visit Provider Obstetrics & Gynecology
DX: O36.60X0 Maternal care for excessive fetal growth, unspecified trimester, not applicable or unspecified (principal); Z3A.37 37 weeks gestation of pregnancy
CPT/HCPCS: 76818

== ENCOUNTER 2023-10-05 14:00 | Outpatient (OUT) | payer OTHER, SELFPAY ==
[2023-10-05 14:11] VITALS: BP 112/77; PULSE 75
== END 2023-10-05 14:45 | disposition home or self-care (01) ==
LOC: FBCO 10-06 09:15
PROVIDERS: PCP Internal Medicine; Visit Provider Obstetrics & Gynecology
DX: O36.63X0 Maternal care for excessive fetal growth, third trimester, not applicable or unspecified (principal)
CPT/HCPCS: 59025

== ENCOUNTER 2023-10-09 06:56 | Outpatient (OUT) | payer OTHER, SELFPAY ==
--- OUTSIDE RECORDS SUMMARY | 2023-10-09 06:59 | XMS_ITS | CCD ---
Author Organization [facility] Care Team Providers Care Coal Screener Name Role Phone Drew JAMES, Melani Unavailable Yariel GARCIA, Chey Unavailable [phone] Yariel GARCIA, Claritza Andrade Unavailable [phone] Drew JAMES, Melani Unavailable Yariel GARCIA, Claritza Andrade Unavailable ALEX URBANO Referring Unavailable ALTAHAWI, FAYSMARIELLA Attending Unavailable ALTAHAWI, FAYSAL Admitting Unavailable RUSSELL, MELANI Attending Unavailable RUSSELL, MELANI Referring Unavailable RUSSELL, MELANI Referring Unavailable RUSSELL, MELANI Referring Unavailable RUSSELL, MELANI Referring Unavailable Shaun Valentine Unavailable DR SHAUN VALENTINE Admitting Unavailable SERGE, DR KINCAID Attending Unavailable SERGE, DR KINCAID Primary Care Unavailable SERGE, DR KINCAID Consulting Unavailable Drew JAMES, Melani Unavailable Suzanna Chaidez RN Unavailable Unavailable Primary Care Provider Unavaildennis e AUDELIA, SUKHJINDER Attending Unavailable AUDELIA, SUKHJINDER Attending Unavailable AUDELIA, SUKHJINDER Attending Unavailable AUDELIA, SUKHJINDER Attending Unavailable AUDELIA, SUKHJINDER Attending Unavailable AUDELIA, SUKHJINDER Attending Unavailable AUDELIA, SUKHJINDER Attending Unavailable ADRIANNE MERCHANT Attending Unavailable AUDELIA, SUKHJINDER Attending Unavailable Allergies Allergy Classification Reported Allergen(s) Allergy Type Date of Onset Reaction(s) Facility (7 sources) Codeine; Translations: [CODEINE] Drug Allergy 1 GI Upset [facility] (7 sources) Adhesive Tape-Silicones; Translations: [ADHESIVE TAPE-SILICONES] Drug Allergy 1 Other: See Comments [facility] (2 sources) Adhesive agent Drug allergy Unknown [employer] Other (2 sources) Codeine Drug Allergy nausea [employer] Other (1 source) Codeine Drug Allergy 1 [facility] (1 source) Desonide Drug Allergy 1 [facility] Medications Current Medications Medication Drug [...] 10-27-2022 BASO # 0.1 103/ul Normal 0.0-0.1 [facility] Comment on above: Performed By: #### C BC #### [facility] [address] [address] [address] Rancho Cobos Basophils/100 WBC (Bld) 0.9 % Normal 0.2-2.0 [facility] Comment on above: Performed By: #### C BC #### [facility] [address] [place] [address] Dr. Rancho Cobos EO # 0.1 103/ul Normal 0.0-0.7 [facility] Comment on above: Performed By: #### C BC #### [facility] [address] [address] [address] Rancho Cobos Eosinophils/100 WBC (Bld) 1.4 % Normal 0.9-7.0 [facility] Comment on above: Performed By: #### C BC #### [facility] [address] [place] [address] Dr. Rancho Cobos Erythrocyte distribution width (RBC) [Ratio] 11.8 % Normal 11.0-15.0 [facility] Comment on above: Performed By: #### C BC #### [facility] [address] [place] [address] Dr. Rancho Cobos Hematocrit (Bld) [Volume fraction] 38.5 % Normal 36.0-48.0 [facility] Comment on above: Performed By: #### C BC #### [facility] [address] [place] [address] Dr. Rancho Cobos Hemoglobin (Bld) [Mass/Vol] 13.3 g/dL Normal 12.0-16.0 [facility] Comment on above: Performed By: #### C BC #### [facility] [address] [place] [address] Dr. Rancho Cobos IG # 0.01 10e3/ul Normal 0.00-0.03 [facility] Comment on above: Performed By: #### C BC #### [facility] [address] [place] [address] Dr. Rancho Cobos IG % 0.2 % Normal 0.0-0.5 [facility] Comment on above: Performed By: #### C BC #### [facility] [address] [place] [address] Dr. Rancho Cobos LYMPH # 1.7 103/ul Normal 1.2-3.8 [facility] Comment on above: Performed By: #### C BC #### [facility] [address] [place] [address] Dr. Rancho Cobos Lymphocytes/100 WBC (Bld) 31.2 % Normal 20.5-60.0 [facility] Comment on above: Performed By: #### C BC #### [facility] [address] [place] [address] Dr. Rancho Cobos MANUAL DIFF REQ NO Normal [facility] Comment on above: Performed By: #### C BC #### [facility] [address] [place] [address] Dr. Rancho Cobos MCH (RBC) [Entitic mass] 31.9 pg Normal 26.7-34.0 [facility] Comment on above: Performed By: #### C BC #### [facility] [address] [place] [address] Dr. Rancho Cobos MCHC (RBC) [Mass/Vol] 34.5 g/dL Normal 29.9-35.2 [facility] Comment on above: Performed By: #### C BC #### [facility] [address] [place] [address] Dr. Rancho Cobos MCV (RBC) [Entitic vol] 92.3 fL Normal 81.0-99.0 [facility] Comment on above: Performed By: #### C BC #### [facility] [address] [address] [address] Rancho Cobos MONO # 0.3 103/ul Normal 0.3-0.8 [facility] Comment on above: Performed By: #### C BC #### [facility] [address] [address] [address] Rancho Cobos Monocytes/100 WBC (Bld) 5.2 % Normal 1.7-12.0 [facility] Comment on above: Performed By: #### C BC #### [facility] [address] [place] [address] Dr. Rancho Cobos NEUT # 3.4 103/ul Normal 1.4-6.5 [facility] Comment on above: Performed By: #### C BC #### [facility] [address] [place] [address] Dr. Rancho Cobos Neutrophils/100 WBC (Bld) 61.1 % Normal 43.0-75.0 [facility] Comment on above: Performed By: #### C BC #### [facility] [address] [place] [address] Dr. Rancho Cobos Platelet mean volume (Bld) [Entitic vol] 9.4 fL Critically low 9.5-13.5 [facility] Comment on above: Performed By: #### C BC #### [facility] [address] [place] [address] Dr. Rancho Cobos PLT 261 103/ul Normal 150-450 [facility] Comment on above: Performed By: #### C BC #### [facility] [address] [address] [address] Rancho Cobos RBC 4.17 106/ul Critically low 4.20-5.40 [facility] Comment on above: Performed By: #### C BC #### [facility] [address] [place] [address] Dr. Rancho Cobos WBC 5.6 103/ul Normal 4.0-11.0 [facility] Comment on above: Performed By: #### C BC #### [facility] [address] [place] [address] Dr. Rancho Cobos LIPID PROFILEon 10-27-2022 CHOL-HDL RATIO NORM SEE BELOW Normal [facility] Comment on above: Result Comment: 3.3 - 4.4 LOW RISK 4.4 - 7.1 AVERAGE RISK 7.1 - 11.0 MODERATE RISK >11.0 HIGH RISK Performed By: #### C MP, LIPID, TSH #### [facility] [address] [address] [address] Rancho Cobos Cholesterol [Mass/Vol] 162 mg/dL Normal <=200 [facility] Comment on above: Performed By: #### C MP, LIPID, TSH #### [facility] [address] [address] [address] Rancho Cobos Cholesterol in HDL [Mass/Vol] 56 mg/dL Normal 40-60 [facility] Comment on above: Performed By: #### C MP, LIPID, TSH #### [facility] [address] [address] [address] Rancho Cobos Cholesterol in LDL [Mass/Vol] 97.0 mg/dL Normal [facility] Comment on above: Performed By: #### C MP, LIPID, TSH #### [facility] [address] [address] [address] Rancho Cobos Cholesterol.total/ Cholesterol in HDL [Mass ratio] 2.9 {ratio} Normal [facility] Comment on above: Performed By: #### C MP, LIPID, TSH #### [facility] [address] [address] [address] Rancho Cobos HDL NORMAL > or = 60 mg/dl - LO W CARDIOVASCULAR RISK <40 mg/dl - HIGH CARDIOVASCULAR RISK Normal [facility] Comment on above: Performed By: #### C MP, LIPID, TSH #### [facility] [address] [address] [address] Rancho Cobos LDL CALC NORMAL SEE BELOW Normal [facility] Comment on above: Result Comment: <100 mg/dl OPTIMAL 100 - 129 mg/dl NEAR OR ABOVE OPTIMAL 130 - 159 mg/dl BORDERLINE HIGH 160 - 189 mg/dl HIGH >190 mg/dl VERY HIGH Performed By: #### C MP, LIPID, TSH #### [facility] [address] [address] [address] Rancho Cobos Triglyceride [Mass/Vol] 45 mg/dL Normal <=150 [facility] Comment on above: Performed By: #### C MP, LIPID, TSH #### [facility] [address] [place] [address] Dr. Rancho Cobos VLDL CALC 9.0 mg/dL Normal [facility] Comment on above: Performed By: #### C MP, LIPID, TSH #### [facility] [address] [address] [address] Rancho Cobos PROF 14(COMP METB)on 023 Albumin [Mass/Vol] 4.0 g/dL Normal 3.4-5.0 [facility] Comment on above: Performed By: #### C MP, LIPID, TSH #### [facility] [address] [place] [address] Dr. Rancho Cobos Albumin/Globulin [Mass ratio] 1.2 {ratio} Normal [facility] Comment on above: Performed By: #### C MP, LIPID, TSH #### [facility] [address] [place] [address] Dr. Rancho Cobos ALP [Catalytic activity/Vol] 34 U/L Critically low 46-116 [facility] Comment on above: Performed By: #### C MP, LIPID, TSH #### [facility] [address] [place] [address] Dr. Rancho Cobos ALT [Catalytic activity/Vol] 24 U/L Normal 14-59 [facility] Comment on above: Performed By: #### C MP, LIPID, TSH #### [facility] [address] [place] [address] Dr. Rancho Cobos Anion gap [Moles/Vol] 12.1 mmol/L Normal [facility] Comment on above: Performed By: #### C MP, LIPID, TSH #### [facility] [address] [place] [address] Dr. Rancho Cobos AST [Catalytic activity/Vol] 17 U/L Normal 15-37 [facility] Comment on above: Performed By: #### C MP, LIPID, TSH #### [facility] [address] [address] [address] Rancho Cobos Bilirubin [Mass/Vol] 0.5 mg/dL Normal 0.2-1.0 [facility] Comment on above: Performed By: #### C MP, LIPID, TSH #### [facility] [address] [address] [address] Rancho Cobos Calcium [Mass/Vol] 9.2 mg/dL Normal 8.5-10.1 [facility] Comment on above: Performed By: #### C MP, LIPID, TSH #### [facility] [address] [address] [address] Rancho Cobos Chloride [Moles/Vol] 107 mmol/L Normal 98-107 [facility] Comment on above: Performed By: #### C MP, LIPID, TSH #### [facility] [address] [place] [address] Dr. Rancho Cobos CO2 [Moles/Vol] 28.5 mmol/L Normal 21.0-32.0 [facility] Comment on above: Performed By: #### C MP, LIPID, TSH #### [facility] [address] [place] [address] Dr. Rancho Cobos Creatinine [Mass/Vol] 0.72 mg/dL Normal 0.55-1.02 [facility] Comment on above: Performed By: #### C MP, LIPID, TSH #### [facility] [address] [place] [address] Dr. Rancho Cobos EGFR-AF TAIWANESE >60 Normal >=60 [facility] Comment on above: Performed By: #### C MP, LIPID, TSH #### [facility] [address] [place] [address] Dr. Rancho Cobos EGFR-NON AF TAIWANESE >60 Normal >=60 [facility] Comment on above: Performed By: #### C MP, LIPID, TSH #### [facility] [address] [place] [address] Dr. Rancho Cobos Globulin (S) [Mass/Vol] 3.4 g/dL Normal [facility] Comment on above: Performed By: #### C MP, LIPID, TSH #### [facility] [address] [place] [address] Dr. Rancho Cobos Glucose [Mass/Vol] 92 mg/dL Normal 74-106 [facility] Comment on above: Performed By: #### C MP, LIPID, TSH #### [facility] [address] [place] [address] Dr. Rancho Cobos Potassium [Moles/Vol] 4.6 mmol/L Normal 3.5-5.1 [facility] Comment on above: Performed By: #### C MP, LIPID, TSH #### [facility] [address] [place] [address] Dr. Rancho Cobos Protein [Mass/Vol] 7.4 g/dL Normal 6.4-8.2 [facility] Comment on above: Performed By: #### C MP, LIPID, TSH #### [facility] [address] [place] [address] Dr. Rancho Cobos Sodium [Moles/Vol] 143 mmol/L Normal 136-145 [facility] Comment on above: Performed By: #### C MP, LIPID, TSH #### [facility] [address] [place] [address] Dr. Rancho Cobos Urea nitrogen [Mass/Vol] 18.0 mg/dL Normal 7.0-18.0 [facility] Comment on above: Performed By: #### C MP, LIPID, TSH #### [facility] [address] [place] [address] Dr. Rancho Cobos Urea nitrogen/Creatinin e [Mass ratio] 25.0 mg/mg Normal [facility] Comment on above: Performed By: #### C MP, LIPID, TSH #### [facility] [address] [place] [address] Dr. Rancho Cobos TSHon 10-27-2022 TSH 1.005 uIU/mL Normal 0.358-3.740 [facility] Comment on above: Performed By: #### C MP, LIPID, TSH #### [facility] [address] [place] [address] Dr. Rancho Cobos MRI ABDOMEN WO/W IVCONon [...] suspicious marrow signal abnormality. Lower chest: Unremarkable. Slate Splitter (localizer) images: No additional findings. IMPRESSION: Evolving changes of RIGHT rectus abdominis muscle ablation without local recurrence. No metastatic disease in abdomen or pelvis Art Coordinator: ANEL Transcribe Date/Time: Apr 22 2022 10:29A Dictated by : LIBRADO JOAQUIN DO This examination was interpreted and the report reviewed and electronically signed by: CANELO EDMONDSON MD on Apr 22 2022 12:49PM EST [id number] Normal [facility] MRI PELVIS WO/W IVCONon 10-0 MRI PELVIS [...] suspicious marrow signal abnormality. Lower chest: Unremarkable. Slate Splitter (localizer) images: No additional findings. IMPRESSION: Evolving changes of RIGHT rectus abdominis muscle ablation without local recurrence. No metastatic disease in abdomen or pelvis Art Coordinator: ANEL Transcribe Date/Time: Apr 22 2022 10:29A Dictated by : LIBRADO JOAQUIN, DO This examination was interpreted and the report reviewed and electronically signed by: CANELO EDMONDSON MD on Apr 22 2022 12:49PM EST [id number] Normal [facility] 10-28-2021 CNPN Telephone (HEMCA3) OSCAR PINEDA ([id number]) 1985 F Date Time Provider Department 10/28/21 MELANI RUSSELL HEMCA3 During your visit today, we recorded the following information about you: Brittany Avendaño ADM 10/28/2021 10:04 AM Signed Oscar Pineda is calling Melani Russell MD today regarding Care Coordination,calling with questions about with her condition. Patient has been identified by name and birthdate. Duration of symptoms: N/A Requesting response back: call on cell [phone] (home) [phone] (cell) Brittany Avendaño ADM October 28, 2021 Brittany Banueloss [facility] 10/30/2021 3:25 PM Signed Patient calling stating she has not received a call back, Please call @ [phone] Melani Russell MD 11/19/2021 10:20 AM Signed This has been addressed through an [employer] message. Melani Russell MD, PhD Staff, Hematology and Medical Oncology Allergies As of Date: 10/28/2021 Noted Allergy Reaction CODEINE 02/01/2021 8 - GI Upset ADHESIVE TAPE-SILICONES 02/14/2021 14 - Other: See Comments Comments: Blisters Date Reviewed: 09/27/2021 Reviewed by: Aliya Jean Baptiste RN - Fully Assessed Reason for Visit: Care Coordination [9944] Prescriptions as of 11/19/2021 - sulindac (CLINORIL) [...] Status:Closed by BRITTANY LIAO on 11/01/21 Normal [facility] CNOVSPon 09-27-2021 CNOVSP Visit (SP) Office (HEMCA4) SARAVANANOSCAR GRACE ([id number]) 1985 F Date Time Provider Department 09/27/21 9:00 AM MELANI RUSSELL During your visit today, we recorded the following information about you: Pulse Respiration Blood pressure Weight 65/minute 20/minute 149/67 77.6 kg Melani Russell MD 10/07/2021 12:24 PM Signed [facility] ESTABLISHED PATIENT VISIT PATIENT NAME: Oscar Pineda [...] Melani Pérez MD Internal Medicine Resident, PGY-1 [facility] 09/27/2021 SOLID TUMOR STAFF: ATTENDING PHYSICIAN [...] No Does patient want to see a Industrial Manufacturing Technician? No (yes to any of (more content not included)... Normal [facility] MRI ABDOMEN WO/W IVCONon MRI ABDOMEN WO/W [...] diffusion weighted and T1 weighted in- and ffr-jg-huzyh images were obtained. Then, using a 3-D [...] muscle mass, without evidence for residual/recurrent disease. Art Coordinator: PSCB Transcribe Date/Time: Sep 20 2021 4:49P Dictated by : CHRIS MILIAN MD This examination was interpreted and the report reviewed and electronically signed by: CHRIS MILIAN MD on Sep 20 2021 4:58PM EST [id number] Normal [facility] MRI PELVIS WO/W IVCONon 03-0 MRI PELVIS [...] diffusion weighted and T1 weighted in- and usi-un-gydgr images were obtained. Then, using a 3-D [...] muscle mass, without evidence for residual/recurrent disease. Art Coordinator: ANEL Transcribe Date/Time: Sep 20 2021 4:49P Dictated by : CHRIS MILIAN MD This examination was interpreted and the report reviewed and electronically signed by: CHRIS MILIAN MD on Sep 20 2021 4:58PM EST [id number] Normal [facility] CNPNon 08-09-2021 CNPN Telephone (HEMCA3) OSCAR PINEDA ([id number]) 1985 F Date Time Provider Department 08/09/21 [...] N/A Requesting response back: call on cell [phone] (home) [phone] (cell) Marva Gualberto Adm August 09, 2021 Chey Tamayo RN 08/09/2021 4:42 PM Signed Returned call to patient and informed her that moving her visit with Dr. Russell after the MRI would be best to establish a plan of care. Patient was appreciative of return call and information. Chey Tamayo RN Deposition Reporter August 09, 2021 Allergies As of Date: 08/09/2021 Noted Allergy Reaction CODEINE 02/01/2021 8 - GI Upset ADHESIVE TAPE-SILICONES 02/14/2021 14 - Other: See Comments Comments: Blisters Date Reviewed: 04/30/2021 Reviewed by: Magda Rose RN - Fully Assessed Reason for Visit: Care Coordination [5161] Cmt: appointment question Prescriptions as of 08/09/2021 [...] Encounter Status:Closed by CLARITZA TAMAYO on 08/09/21 [facility] (GMINE[facility] OSCAR PINEDA ([id number]) 1985 F Date Time Provider Department 05/22/21 MELIDA QUINTERO During your visit today, we recorded the following information about you: LANETTE De Leon 05/22/2021 2:32 PM Signed Patient name and was confirmed at initiation of discussion. Oscar Pineda's Common Hereditary Cancers Panel through [employer] was negative for a pathogenic variant. Please [...] Encounter Status:Closed by MELIDA QUINTERO on 05/22/21 [facility] 05-15-2021 CNPN Telephone (HEMCA3) OSCAR PINEDA ([id number]) 1985 F Date Time Provider Department 05/15/21 [...] N/A Requesting response back: call on cell [phone] (home) [phone] (cell) Marva Burciaga Adm May 15, 2021 [...] Status:Closed by MELANI RUSSELL on 05/17/21 Normal [facility] Molecular Teston 2020 Test Common Hereditary Cancers Panel Normal [facility] Comment on above: Performed By: #### M OL13 ####[facility] [id number] [place] [address] Test Results View results in Scan zahraa Documents link when available. Normal [facility] Comment on above: Performed By: #### M OL13 ####[facility] [id number] [place] [address] Nishant 05-01-2021 NGUYENN Telephone (JULIANN) OSCAR PINEDA ([id number]) 1985 F Date Time Provider Department 05/01/21 [...] questions or concerns. Mindy Farley Genetic Counselor Library Manager Allergies As of Date: 05/01/2021 Noted Allergy [...] Status:Closed by MINDY FARLEY on 05/01/21 Normal [facility] CBCon 04-30-2021 Absolute nRBC <0.01 Normal <0.01 [facility] Comment on above: Performed By: #### C BC ####[facility] [id number] [place], [place] [phone] Erythrocyte distribution width (RBC) [Ratio] 12.0 % Normal 11.5-15.0 [facility] Comment on above: Performed By: #### C BC ####[facility] [id number] [place], [place] [phone] Hematocrit (Bld) [Volume fraction] 33.8 % Low 36.0-46.0 [facility] Comment on above: Performed By: #### C BC ####[address] [address] [place], [place] [phone] Hemoglobin (Bld) [Mass/Vol] 11.8 g/dL Normal 11.5-15.5 [facility] Comment on above: Performed By: #### C BC ####[address] [place], [place] [phone] MCH 31.5 pG Normal 26.0-34.0 [facility] Comment on above: Performed By: #### C BC ####[address] [phone] MCHC (RBC) [Mass/Vol] 34.9 g/dL Normal 30.5-36.0 [facility] Comment on above: Performed By: #### C BC ####[address] [phone] MCV (RBC) [Entitic vol] 90.1 fL Normal 80.0-100.0 [facility] Comment on above: Performed By: #### C BC ####[address] [phone] Platelet mean volume (Bld) [Entitic vol] 9.6 fL Normal 9.0-12.7 [facility] Comment on above: Performed By: #### C BC ####[address] [place], [place] [phone] Platelets (Bld) [#/Vol] 182 10*3/uL Normal 150-400 [facility] Comment on above: Performed By: #### C BC ####[address] [place], [place] [phone] RBC (Bld) [#/Vol] 3.75 10*6/uL Low 3.90-5.20 [facility] Comment on above: Performed By: #### C BC ####[facility] [id number] [place], [place] [phone] WBC (Bld) [#/Vol] 12.88 10*3/uL High 3.70-11.[address] [facility] Comment on above: Performed By: #### C BC ####[facility] [id number] [place], [place] [phone] CNDSon 04-30-2021 CNDS HNO ID: [id number] Author: Katty Logan APRN.ENVIRONMENTAL DIRECTOR Service: Critical Care Author Type: Nurse Practitioner [...] Per Camilla Urbano MD note 04/02 - f/ genetic testing Also please follow up with [...] air KIMBER (more content not included)... Normal [facility] THERAPY NTon 04-30-2021 THERAPY NT HNO ID: [id number] Author: Licha Llanes, PT Service: Physical Therapy Author Type: Physical Therapist Type: Therapy (PT/OT/Speech/Resp) Filed: 04/30/2021 3:02 PM Note Text: Physical Therapy Treatment SERVICE DATE: 04/30/2021 SERVICE TIME: 1342 to 1351 ROOM: [place] [address] Recommended Discharge Disposition: Home Recommended Discharge Disposition [...] gait and mobility-other Interventions Provided: Gait Training (75012) Gait Training (82544) Treatment Minutes: 9 $ Gait Training (44069) Billed Units: 1 unit Training AND education provided in: Discharge planning, Energy conservation, Exercise program, Expected functional level, Falls prevention, Gait pattern, reduction of deviations, Home safe (more content not included)... Normal [facility] ALLIED HEALTHon 04-29-2021 ALLIED HEALTH HNO ID: [id number] Author: Ana Watters RN Service: Healing Service [...] 29, 2021 TIME: 8:11 AM CONTACT #: [phone] [facility] APTTon 04-29-2021 aPTT Coag (Bld) [Time] 26.4 s Normal 23.0-32.4 [facility] Comment on above: Result Comment: Unfr actionated [...] laboratory APTT reagent in use throughout the [facility]. 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 Last discharge within 30 days: No Advance Directive: Current Advance Directive: None Dry Roller Attempted to Assist with AD Completion: No [...] None Has the Patient Been in a Group Home Facility in the Past 30 days?: No SOCIAL: Living Arrangements: Home Lives With: Spouse Primary Contact: Extended Emergency Contact Information Primary Emergency Contact: LAURA PINEDA Address: [address] [place] [address] [facility] Mobile Relation: Spouse Supportive Patient Contact:: Yes Contact Resources: Family Family Name/Phone: LAURA PINEDA (Spouse) [phone] Caregiver AssessmentCaregiver is ready, willing and able [...] Mostly I feel financially burdened by my [id number] expenses for my prescription medication:: 0 - Disagree Mostly Risk Score: 0 Patient is categorized as: Low risk < 2 Med Adherance Assessement not completed due to: No NUTRITION INSTRUCTOR meds Are you interested in bedside delivery of your medications? Yes Is Patient Psychosocially Complex?: No ASSESSMENT AND PLAN: Medical Needs: Medical Needs: None Psychosocial Needs: Psychosocial Needs: None FREEDOM OF CHOICE EXPLAINED: [place] of Choice Given: No Reason Not Given: No placements necessary POTENTIAL TRANSITION PLANS No Services Indicated SIGNATURE: Rocio Bear RN MSN PATIENT NAME: Oscar Pineda DATE: April 29, 2021 TIME: 11:53 AM PAGER/CONTACT #: [phone] Normal [facility] CBCon 04-29-2021 Absolute nRBC <0.01 Normal <0.01 [facility] Comment on above: Performed By: #### C BC, MG1, PHOS, PTT, CMP, PT ####[facility] [address] [place], [place] [phone] Erythrocyte distribution width (RBC) [Ratio] 11.8 % Normal 11.5-15.0 [facility] Comment on above: Performed By: #### C BC, MG1, PHOS, PTT, CMP, PT ####[place] [address] [address] [place] [phone] Hematocrit (Bld) [Volume fraction] 37.0 % Normal 36.0-46.0 [facility] Comment on above: Performed By: #### C BC, MG1, PHOS, PTT, CMP, PT ####[place] [address] [address] [place] [phone] Hemoglobin (Bld) [Mass/Vol] 12.3 g/dL Normal 11.5-15.5 [facility] Comment on above: Performed By: #### C BC, MG1, PHOS, PTT, CMP, PT ####[place] [address] [address] [place] [phone] MCH 30.9 pG Normal 26.0-34.0 [facility] Comment on above: Performed By: #### C BC, MG1, PHOS, PTT, CMP, PT ####[place] [address] [address] [place] [phone] MCHC (RBC) [Mass/Vol] 33.2 g/dL Normal 30.5-36.0 [facility] Comment on above: Performed By: #### C BC, MG1, PHOS, PTT, CMP, PT ####[place] [address] [address] [place] [phone] MCV (RBC) [Entitic vol] 93.0 fL Normal 80.0-100.0 [facility] Comment on above: Performed By: #### C BC, MG1, PHOS, PTT, CMP, PT ####[place] [address] [address] [place] [phone] Platelet mean volume (Bld) [Entitic vol] 10.0 fL Normal 9.0-12.7 [facility] Comment on above: Performed By: #### C BC, MG1, PHOS, PTT, CMP, PT ####[facility], [place] [phone] Platelets (Bld) [#/Vol] 188 10*3/uL Normal 150-400 [facility] Comment on above: Performed By: #### C BC, MG1, PHOS, PTT, CMP, PT ####[place] [address] [address], [place] [phone] RBC (Bld) [#/Vol] 3.98 10*6/uL Normal 3.90-5.20 [facility] Comment on above: Performed By: #### C BC, MG1, PHOS, PTT, CMP, PT ####[place] [address] [address], [place] [phone] WBC (Bld) [#/Vol] 11.41 10*3/uL High 3.70-11.[address] [facility] Comment on above: Performed By: #### C BC, MG1, PHOS, PTT, CMP, PT ####[place] [address] [address], [place] [phone] Comp Metabolic Panelon 04-29 Albumin [Mass/Vol] 3.5 g/dL Low 3.9-4.9 [facility] Comment on above: Performed By: #### C BC, MG1, PHOS, PTT, CMP, PT ####[place] [address] [address], [place] [phone] ALP [Catalytic activity/Vol] 43 U/L Normal 34-123 [facility] Comment on above: Performed By: #### C BC, MG1, PHOS, PTT, CMP, PT ####[place] [id number], [place] [phone] ALT [Catalytic activity/Vol] 56 U/L High 7-38 [facility] Comment on above: Performed By: #### C BC, MG1, PHOS, PTT, CMP, PT ####[place] [address], [place] [phone] Anion gap [Moles/Vol] 14 mmol/L Normal 9-18 [facility] Comment on above: Performed By: #### C BC, MG1, PHOS, PTT, CMP, PT ####[place] [address] [address], [place] [phone] AST [Catalytic activity/Vol] 171 U/L High 13-35 [facility] Comment on above: Performed By: #### C BC, MG1, PHOS, PTT, CMP, PT ####[place] [address] [address], [place] [phone] Bilirubin [Mass/Vol] 0.6 mg/dL Normal 0.2-1.3 [facility] Comment on above: Performed By: #### C BC, MG1, PHOS, PTT, CMP, PT ####[place] [address] [address], [place] [phone] Calcium [Mass/Vol] 8.3 mg/dL Low 8.5-10.2 [facility] Comment on above: Performed By: #### C BC, MG1, PHOS, PTT, CMP, PT ####[place] [address] [address], [place] [phone] Chloride [Moles/Vol] 100 mmol/L Normal 97-105 [facility] Comment on above: Performed By: #### C BC, MG1, PHOS, PTT, CMP, PT ####[place] [address], [place] [phone] CO2 [Moles/Vol] 25 mmol/L Normal 22-30 [facility] Comment on above: Performed By: #### C BC, MG1, PHOS, PTT, CMP, PT ####[place] [address], [place] [phone] Creatinine [Mass/Vol] 0.78 mg/dL Normal 0.58-0.96 [facility] Comment on above: Performed By: #### C BC, MG1, PHOS, PTT, CMP, PT ####[facility] [place], [place] [phone] eGFR- Amer. >60 Normal [facility] Comment on above: Performed By: #### C BC, MG1, PHOS, PTT, CMP, PT ####[facility] [place], [place] [phone] eGFR-All Other Races >60 Normal [facility] Comment on above: Result Comment: eGFR (Estimated [...] C BC, MG1, PHOS, PTT, CMP, PT ####[place] [address] [place], [place] [phone] Glucose [Mass/Vol] 167 mg/dL High 74-99 [facility] Comment on above: Result Comment: The [place] Diabetes Association (ADA) provides guidance for cutoff [...] Standards of Medical Care in Diabetes 2016, [place] Diabetes Association. Diabetes Care. 2016.39(Suppl 1). Performed By: #### C BC, MG1, PHOS, PTT, CMP, PT ####[place] [address] [address], [place] [phone] Potassium [Moles/Vol] 3.9 mmol/L Normal 3.7-5.1 [facility] Comment on above: Performed By: #### C BC, MG1, PHOS, PTT, CMP, PT ####[address] [place] [phone] Protein [Mass/Vol] 6.0 g/dL Low 6.3-8.0 [facility] Comment on above: Performed By: #### C BC, MG1, PHOS, PTT, CMP, PT ####[place] [phone] Sodium [Moles/Vol] 139 mmol/L Normal 136-144 [facility] Comment on above: Performed By: #### C BC, MG1, PHOS, PTT, CMP, PT ####[address], [place] [phone] Urea nitrogen [Mass/Vol] 9 mg/dL Normal 7-21 [facility] Comment on above: Performed By: #### C BC, MG1, PHOS, PTT, CMP, PT ####[address] [phone] GASV + ALLon 04-29-2021 Base Excess 4 mmol/L Normal [facility] Comment on above: Performed By: #### V ALLBG ####[address] [phone] Calcium [Moles/Vol] 1.15 mmol/L Normal 1.08-1.30 [facility] Comment on above: Performed By: #### V ALLBG ####[address] [phone] Carboxyhemoglobin, Ziyad 1.2 % Normal <2.1 [facility] Comment on above: Performed By: #### V ALLBG ####[place] [address] [place] [phone] CO2 [Moles/Vol] 31 mmol/L High 25-29 [facility] Comment on above: Performed By: #### V ALLBG ####[place] [address] [address] [place] [phone] Glucose [Mass/Vol] 178 mg/dL High 60-105 [facility] Comment on above: Performed By: #### V ALLBG ####[place] [address] [address] [place] [phone] HCO3 (Bld) [Moles/Vol] 29 mmol/L High 24-28 [facility] Comment on above: Performed By: #### V ALLBG ####[place] [address] [address] [place] [phone] Lactate [Moles/Vol] 1.3 mmol/L Normal 0.5-2.2 [facility] Comment on above: Performed By: #### V ALLBG ####[place] [address] [address] [place] [phone] Methemoglobin 0.7 % Normal <1.6 [facility] Comment on above: Performed By: #### V ALLBG ####[place] [address] [address] [place] [phone] O2 Administered 40% Normal [facility] Comment on above: Performed By: #### V ALLBG ####[place] [address] [address] [place] [phone] pCO2 51 mm Hg Normal 42-55 [facility] Comment on above: Performed By: #### V ALLBG ####[place] [address] [place] [phone] pCO2, Temp Correct 51 mm Hg Normal 42-55 [facility] Comment on above: Performed By: #### V ALLBG ####[facility], [place] [phone] Potassium [Moles/Vol] 4.0 mmol/L Normal 3.5-5.0 [facility] Comment on above: Performed By: #### V ALLBG ####[place] [address], [place] [phone] Base Excess 3 mmol/L Normal [facility] Comment on above: Performed By: #### V ALLBG ####[facility], [place] [phone] Blood Gas Comm, Ziyad . Normal [facility] Comment on above: Performed By: #### V ALLBG ####[place] [address] [address], [place] [phone] Body temperature 98.6 [degF] Normal [facility] Comment on above: Performed By: #### V ALLBG ####[place] [address], [place] [phone] Calcium [Moles/Vol] 1.18 mmol/L Normal 1.08-1.30 [facility] Comment on above: Performed By: #### V ALLBG ####[place] [address], [place] [phone] Carboxyhemoglobin, Ziyad 0.9 % Normal <2.1 [facility] Comment on above: Performed By: #### V ALLBG ####[facility], [place] [phone] CO2 [Moles/Vol] 30 mmol/L High 25-29 [facility] Comment on above: Performed By: #### V ALLBG ####[place] [address], [place] [phone] Glucose [Mass/Vol] 193 mg/dL High 60-105 [facility] Comment on above: Performed By: #### V ALLBG ####[place] [address] [place] [phone] HCO3 (Bld) [Moles/Vol] 28 mmol/L Normal 24-28 [facility] Comment on above: Performed By: #### V ALLBG ####[place] [address] [place] [phone] Hematocrit (Bld) [Volume fraction] 39.0 % Normal 36.0-46.0 [facility] Comment on above: Performed By: #### V ALLBG ####[place] [address] [place] [phone] Hemoglobin (Bld) [Mass/Vol] 12.7 g/dL Normal 11.5-15.5 [facility] Comment on above: Performed By: #### V ALLBG ####[place] [address] [place] [phone] Lactate [Moles/Vol] 1.6 mmol/L Normal 0.5-2.2 [facility] Comment on above: Performed By: #### V ALLBG ####[place] [address] [place] [phone] Methemoglobin 1.0 % Normal <1.6 [facility] Comment on above: Performed By: #### V ALLBG ####[place] [address] [place] [phone] O2 Administered 30% Normal [facility] Comment on above: Performed By: #### V ALLBG ####[place] [address] [place] [phone] Oxyhemoglobin, Ziyad. 78 % Normal 60-85 [facility] Comment on above: Performed By: #### V ALLBG ####[place] [address], [place] [phone] pCO2 49 mm Hg Normal 42-55 [facility] Comment on above: Performed By: #### V ALLBG ####[place] [address], [place] [phone] pCO2, Temp Correct 49 mm Hg Normal 42-55 [facility] Comment on above: Performed By: #### V ALLBG ####[place] [address], [place] [phone] pH (Bld) 7.38 [pH] Normal 7.32-7.42 [facility] Comment on above: Performed By: #### V ALLBG ####[place] [address], [place] [phone] pH, Temp Corrected 7.38 Normal 7.32-7.42 [facility] Comment on above: Performed By: #### V ALLBG ####[place] [address], [place] [phone] pO2 46 mm Hg High 35-45 [facility] Comment on above: Performed By: #### V ALLBG ####[place] [address] [place], [place] [phone] pO2, Temp Corrected 46 mm Hg High 35-45 [facility] Comment on above: Performed By: #### V ALLBG ####[place] [address] [place], [place] [phone] Potassium [Moles/Vol] 4.3 mmol/L Normal 3.5-5.0 [facility] Comment on above: Performed By: #### V ALLBG ####[place] [address], [place] [phone] Sodium [Moles/Vol] 141 mmol/L Normal 136-144 [facility] Comment on above: Performed By: #### V ALLBG ####[address] [phone] Magnesiumon 04-29-2021 Magnesium [Mass/Vol] 1.8 mg/dL Normal 1.7-2.3 [facility] Comment on above: Performed By: #### C BC, MG1, PHOS, PTT, CMP, PT ####[facility] [address] [place], [place] [phone] NURSING PROGon 04-29-2021 NURSING PROG HNO ID: [id number] Author: Magda Rose RN Service: ? Author Type: Registered Nurse Type: Nursing Progress Note Filed: 04/29/2021 7:45 AM Note Text: Nursing Progress: Topic: RESTRAINT NON-VIOLENT PATIENT NAME: Oscar Pineda PATIENT LOCATION: [place] [address] The patient demonstrates Attempting to Remove Medical [...] TIME: 7:44 AM Diane Rose RN Normal [facility] Phosphoruson 04-29-2021 Phosphate [Mass/Vol] 3.2 mg/dL Normal 2.7-4.8 [facility] Comment on above: Performed By: #### C BC, MG1, PHOS, PTT, CMP, PT ####[facility] [address] [place], [place] [phone] Protimeon 04-29-2021 PT INR 1.0 Normal 0.9-1.3 [facility] Comment on above: Result Comment: Neha min K Antagonist (VKA) Therapeutic Range: INR 2 to 3 (Target INR of 2.5) Note: For patients treated with VKA drugs, such as warfarin, the [place] [employer] 2012 Guideline recommends [...] Chest 2012, 141:7S-47S Daphne RA, et al. [facility] 2017, 70: 252-289 Performed By: #### C BC, MG1, PHOS, PTT, CMP, PT ####[facility] [place], [place] [phone] PT Sec 11.0 sec Normal 9.7-13.0 [facility] Comment on above: Performed By: #### C BC, MG1, PHOS, PTT, CMP, PT ####[facility] [place], [place] [phone] THERAPY NTon 04-29-2021 THERAPY NT HNO ID: [id number] Author: Neela Prasad, PT Service: Physical Therapy Author Type: Physical Therapist Type: Therapy (PT/OT/Speech/Resp) Filed: 04/29/2021 10:05 AM Note Text: Physical Therapy Evaluation SERVICE DATE: 04/29/2021 SERVICE TIME: 907 to 945 ROOM: [place] [address] Recommended Discharge Disposition: Home Recommended Discharge Disposition [...] trunk posture;Step length decreased;Non-functiona l gait speed [facility] 7: Walk 25 feet or more Learning/Educational [...] Diagnosis: Reduced mobility-other Interventions Provided: Evaluation;Gait Training (72617);Therapeutic Activity (70655) $ Evaluation-Moderate (18090) Billed Units: 1 unit Therapeutic Activity (91376) Treatment Minutes: 8 $ Therapeutic Activity (00307) Billed Units: 1 unit Gait Training (41105) Treatment Minutes: 15 $ Gait Training (10065) Billed Units: 1 unit Training AND education provided in: Bed mobility, Benefits of in-hospital mobility, Discharge planning, Energy conservation, Expected functional level, Gait pattern, reduction of deviations, Positioning, Precautions/restriction s, Role of Physical Therapy, Sitting balance, Standing balance, Transfers, Treatment protocol, Equipment, Assistive device use The following therapeutic skills were used: Activity dosing, Assessment of tolerance includi (more content not included)... Normal [facility] Type and Screenon 04-29-2021 ABO/RH(D) Positive Normal [facility] Comment on above: Performed By: #### T SCR ####[facility] [address] [place], [place] [phone] APTTon 04-28-2021 aPTT Coag (Bld) [Time] 26.6 s Normal 23.0-32.4 [facility] Comment on above: Result Comment: Unfr actionated [...] laboratory APTT reagent in use throughout the [facility]. Performed By: #### P T, PTT, TRIG, CMP, CBC, MG1, PHOS ####[place] [address] [address], [place] [phone] Blood Cultureon 04-28-2021 Bacteria identified Cx Nom (Bld) Culture Result - No growth 5 days Normal [facility] Comment on above: Performed By: #### B LCUL ####[place] [address] [place] [phone] Bacteria identified Cx Nom (Bld) Culture Result - No growth 5 days Normal [facility] Comment on above: Performed By: #### B LCUL ####[place] [address] [place] [phone] CBCon 04-28-2021 Absolute nRBC <0.01 Normal <0.01 [facility] Comment on above: Performed By: #### P T, PTT, TRIG, CMP, CBC, MG1, PHOS ####[place] [address] [place] [phone] Erythrocyte distribution width (RBC) [Ratio] 12.4 % Normal 11.5-15.0 [facility] Comment on above: Performed By: #### P T, PTT, TRIG, CMP, CBC, MG1, PHOS ####[address] [place] [phone] Hematocrit (Bld) [Volume fraction] 36.1 % Normal 36.0-46.0 [facility] Comment on above: Performed By: #### P T, PTT, TRIG, CMP, CBC, MG1, PHOS ####[place] [address] [place] [phone] Hemoglobin (Bld) [Mass/Vol] 11.8 g/dL Normal 11.5-15.5 [facility] Comment on above: Performed By: #### P T, PTT, TRIG, CMP, CBC, MG1, PHOS ####[place] [address] [place], [place] [phone] MCH 30.9 pG Normal 26.0-34.0 [facility] Comment on above: Performed By: #### P T, PTT, TRIG, CMP, CBC, MG1, PHOS ####[place] [address], [place] [phone] MCHC (RBC) [Mass/Vol] 32.7 g/dL Normal 30.5-36.0 [facility] Comment on above: Performed By: #### P T, PTT, TRIG, CMP, CBC, MG1, PHOS ####[address] [phone] MCV (RBC) [Entitic vol] 94.5 fL Normal 80.0-100.0 [facility] Comment on above: Performed By: #### P T, PTT, TRIG, CMP, CBC, MG1, PHOS ####[address] [phone] Platelet mean volume (Bld) [Entitic vol] 9.8 fL Normal 9.0-12.7 [facility] Comment on above: Performed By: #### P T, PTT, TRIG, CMP, CBC, MG1, PHOS ####[address] [place], [place] [phone] Platelets (Bld) [#/Vol] 178 10*3/uL Normal 150-400 [facility] Comment on above: Performed By: #### P T, PTT, TRIG, CMP, CBC, MG1, PHOS ####[place] [address], [place] [phone] RBC (Bld) [#/Vol] 3.82 10*6/uL Low 3.90-5.20 [facility] Comment on above: Performed By: #### P T, PTT, TRIG, CMP, CBC, MG1, PHOS ####[place] [address], [place] [phone] WBC (Bld) [#/Vol] 11.29 10*3/uL High 3.70-11.[address] [facility] Comment on above: Performed By: #### P T, PTT, TRIG, CMP, CBC, MG1, PHOS ####[facility] [address], [place] [phone] CT ABD/PEL W IVCONon 021 CT ABD/PEL W IVCON * * *Final Report* * * DATE OF EXAM: Apr 28 2021 2:10PM [facility] [place] CT ABD/PEL W IVCON / [...] chest CT performed will be reported separately. Slate Splitter (topogram) images: No additional findings. IMPRESSION: Resolution of intravenous gas within the abdomen and pelvis. 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 Art Coordinator: PSCB Transcribe Date/Time: Apr 28 2021 2:50P Dictated by : KASHMIR RIVERA MD This examination was interpreted and the report reviewed and electronically signed by: ELIAS WOODY MD on Apr 28 2021 4:13PM EST [id number] Normal [facility] CT CHEST W IVCONon CT CHEST W IVCON * * *Final Report* * * DATE OF EXAM: Apr 28 2021 2:10PM [facility] [place] 0539 - CT CHEST W IVCON / [...] There is minimal intrahepatic biliary ductal dilation. Slate Splitter (topogram) images: No additional findings. IMPRESSION: 1. No CT evidence of air embolism within the systemic veins, right-sided heart chambers, central pulmonary arteries and hepatic veins. 2. Posterior complete LEFT lower lobe, partially dependent RIGHT lower lobe and dependent LEFT upper lobe atelectasis. Given the distribution, this finding may be related to aspiration. Trace bilateral pleural effusions. Art Coordinator: ANEL Transcribe Date/Time: Apr 28 2021 3:35P Dictated by : MICHELLE PETERSEN MD This examination was interpreted and the report reviewed and electronically signed by: MICHELLE PETERSEN MD on Apr 28 2021 3:45PM EST [id number] Normal [facility] Comp Metabolic Panelon 04-28 Albumin [Mass/Vol] 3.0 g/dL Low 3.9-4.9 [facility] Comment on above: Performed By: #### P T, PTT, TRIG, CMP, CBC, MG1, PHOS ####[facility] [address] [place], [place] [phone] ALP [Catalytic activity/Vol] 36 U/L Normal 34-123 [facility] Comment on above: Performed By: #### P T, PTT, TRIG, CMP, CBC, MG1, PHOS ####[facility] [place], [place] [phone] ALT [Catalytic activity/Vol] 32 U/L Normal 7-38 [facility] Comment on above: Performed By: #### P T, PTT, TRIG, CMP, CBC, MG1, PHOS ####[place] [address] [address] [place], [place] [phone] Anion gap [Moles/Vol] 10 mmol/L Normal 9-18 [facility] Comment on above: Performed By: #### P T, PTT, TRIG, CMP, CBC, MG1, PHOS ####[address] [phone] AST [Catalytic activity/Vol] 102 U/L High 13-35 [facility] Comment on above: Performed By: #### P T, PTT, TRIG, CMP, CBC, MG1, PHOS ####[address], [place] [phone] Bilirubin [Mass/Vol] 0.3 mg/dL Normal 0.2-1.3 [facility] Comment on above: Performed By: #### P T, PTT, TRIG, CMP, CBC, MG1, PHOS ####[address] [phone] Calcium [Mass/Vol] 7.9 mg/dL Low 8.5-10.2 [facility] Comment on above: Performed By: #### P T, PTT, TRIG, CMP, CBC, MG1, PHOS ####[address] [phone] Chloride [Moles/Vol] 107 mmol/L High 97-105 [facility] Comment on above: Performed By: #### P T, PTT, TRIG, CMP, CBC, MG1, PHOS ####[place] [address] [address], [place] [phone] CO2 [Moles/Vol] 25 mmol/L Normal 22-30 [facility] Comment on above: Performed By: #### P T, PTT, TRIG, CMP, CBC, MG1, PHOS ####[place] [address] [address], [place] [phone] Creatinine [Mass/Vol] 0.85 mg/dL Normal 0.58-0.96 [facility] Comment on above: Performed By: #### P T, PTT, TRIG, CMP, CBC, MG1, PHOS ####[facility] [place], [place] [phone] eGFR- Amer. >60 Normal [facility] Comment on above: Performed By: #### P T, PTT, TRIG, CMP, CBC, MG1, PHOS ####[facility] [place] [address] [phone] eGFR-All Other Races >60 Normal [facility] Comment on above: Result Comment: eGFR (Estimated [...] T, PTT, TRIG, CMP, CBC, MG1, PHOS ####[place] [id number] [place], [place] [phone] Glucose [Mass/Vol] 86 mg/dL Normal 74-99 [facility] Comment on above: Result Comment: The [place] Diabetes Association (ADA) provides guidance for cutoff [...] Standards of Medical Care in Diabetes 2016, [place] [employer]. Diabetes Care. 2016.39(Suppl 1). Performed By: #### P T, PTT, TRIG, CMP, CBC, MG1, PHOS ####[address] [phone] Potassium [Moles/Vol] 3.8 mmol/L Normal 3.7-5.1 [facility] Comment on above: Performed By: #### P T, PTT, TRIG, CMP, CBC, MG1, PHOS ####[place] [phone] Protein [Mass/Vol] 5.2 g/dL Low 6.3-8.0 [facility] Comment on above: Performed By: #### P T, PTT, TRIG, CMP, CBC, MG1, PHOS ####[address] [phone] Sodium [Moles/Vol] 142 mmol/L Normal 136-144 [facility] Comment on above: Performed By: #### P T, PTT, TRIG, CMP, CBC, MG1, PHOS ####[place] [phone] Urea nitrogen [Mass/Vol] 15 mg/dL Normal 7-21 [facility] Comment on above: Performed By: #### P T, PTT, TRIG, CMP, CBC, MG1, PHOS ####[address] [phone] GASV + ALLon 04-28-2021 Base Excess 2 mmol/L Normal [facility] Comment on above: Performed By: #### V ALLBG ####[address] [phone] Blood Gas Comm, Ziyad . Normal [facility] Comment on above: Performed By: #### V ALLBG ####[address] [phone] Body temperature 98.6 [degF] Normal [facility] Comment on above: Performed By: #### V ALLBG ####[place] [address] [place], [place] [phone] Calcium [Moles/Vol] 1.18 mmol/L Normal 1.08-1.30 [facility] Comment on above: Performed By: #### V ALLBG ####[place] [address], [place] [phone] Carboxyhemoglobin, Ziyad 0.7 % Normal <2.1 [facility] Comment on above: Performed By: #### V ALLBG ####[place] [address] [place], [place] [phone] CO2 [Moles/Vol] 30 mmol/L High 25-29 [facility] Comment on above: Performed By: #### V ALLBG ####[place] [address] [address], [place] [phone] Glucose [Mass/Vol] 90 mg/dL Normal 60-105 [facility] Comment on above: Performed By: #### V ALLBG ####[place] [address] [address], [place] [phone] HCO3 (Bld) [Moles/Vol] 29 mmol/L High 24-28 [facility] Comment on above: Performed By: #### V ALLBG ####[place] [address] [place], [place] [phone] Hematocrit (Bld) [Volume fraction] 37.7 % Normal 36.0-46.0 [facility] Comment on above: Performed By: #### V ALLBG ####[place] [address] [place], [place] [phone] Hemoglobin (Bld) [Mass/Vol] 12.3 g/dL Normal 11.5-15.5 [facility] Comment on above: Performed By: #### V ALLBG ####[place] [address], [place] [phone] Lactate [Moles/Vol] 0.9 mmol/L Normal 0.5-2.2 [facility] Comment on above: Performed By: #### V ALLBG ####[place] [address], [place] [phone] Methemoglobin 1.5 % Normal <1.6 [facility] Comment on above: Performed By: #### V ALLBG ####[place] [address] [place] [phone] O2 Administered 100% Normal [facility] Comment on above: Performed By: #### V ALLBG ####[place] [address] [place] [phone] Oxyhemoglobin, Ziyad. 83 % Normal 60-85 [facility] Comment on above: Performed By: #### V ALLBG ####[place] [address] [place] [phone] pCO2 57 mm Hg High 42-55 [facility] Comment on above: Performed By: #### V ALLBG ####[place] [address] [place] [phone] pCO2, Temp Correct 57 mm Hg High 42-55 [facility] Comment on above: Performed By: #### V ALLBG ####[place] [address] [place] [phone] pH (Bld) 7.32 [pH] Normal 7.32-7.42 [facility] Comment on above: Performed By: #### V ALLBG ####[place] [address], [place] [phone] pH, Temp Corrected 7.32 Normal 7.32-7.42 [facility] Comment on above: Performed By: #### V ALLBG ####[place] [address] [address] [place], [place] [phone] pO2 54 mm Hg High 35-45 [facility] Comment on above: Performed By: #### V ALLBG ####[place] [id number] [place], [place] [phone] pO2, Temp Corrected 54 mm Hg High 35-45 [facility] Comment on above: Performed By: #### V ALLBG ####[address] [phone] Potassium [Moles/Vol] 3.8 mmol/L Normal 3.5-5.0 [facility] Comment on above: Performed By: #### V ALLBG ####[place] [address] [place], [place] [phone] Sodium [Moles/Vol] 142 mmol/L Normal 136-144 [facility] Comment on above: Performed By: #### V ALLBG ####[address] [phone] Magnesiumon 04-28-2021 Magnesium [Mass/Vol] 2.0 mg/dL Normal 1.7-2.3 [facility] Comment on above: Performed By: #### P T, PTT, TRIG, CMP, CBC, MG1, PHOS ####[address] [phone] NURSING PROGon 04-28-2021 NURSING PROG HNO ID: [id number] Author: Laura Mullins, JOSE Service: ? Author Type: Registered Nurse Type: Nursing Progress Note Filed: 04/28/2021 8:01 PM Note Text: Nursing Progress: Topic: RESTRAINT NON-VIOLENT PATIENT NAME: Oscar Pineda PATIENT LOCATION: [place] [address] The patient demonstrates Attempting to Remove Medical [...] 2021 TIME: 8:01 PM Laura Mullins RN [facility] NURSING PROG HNO ID: [id number] Author: Rob Guerra RN Service: Radiology Author [...] DATE: April 28, 2021 TIME: 2:08 PM [facility] NURSING PROG HNO ID: [id number] Author: Yumiko Molina RN Service: ? Author Type: Registered Nurse Type: Nursing Progress Note Filed: 04/28/2021 2:57 PM Note Text: Nursing Progress Note Patient Name: Oscar Pineda Patient Location: [place] [address] 1200 IR at bedside, advised transfer to CT table while still in trendelenburg trial patient supine, still in trendelenburg. Tolerating [address], notified of positioning requirements 1345 BENEFITS OFFICER, resident, two RT's, and two RN's at bedside for transport. Pt on telemetry/ continuous monitoring. CT and IR LIP notified. [address] imaging table, trendelenburg positioning maintained [address] and gave verbal OK to transition HOB flat then elevated (as tolerated) 1420 patient in SICU, HOB flat. Tolerating This note was completed by: Yumiko Molina [facility] NURSING PROG HNO ID: [id number] Author: Yumiko Molina RN Service: ? 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 which pose an imminent danger to self [...] 2021 TIME: 8:00AM Yumiko Molina RN Normal [facility] Phosphoruson 04-28-2021 Phosphate [Mass/Vol] 2.3 mg/dL Low 2.7-4.8 [facility] Comment on above: Performed By: #### P T, PTT, TRIG, CMP, CBC, MG1, PHOS ####[facility] [place], [place] [phone] Protimeon 04-28-2021 PT INR 1.0 Normal 0.9-1.3 [facility] Comment on above: Result Comment: Neha min K Antagonist (VKA) Therapeutic Range: INR 2 to 3 (Target INR of 2.5) Note: For patients treated with VKA drugs, such as warfarin, the [employer] 2012 Guideline recommends [...] Chest 2012, 141:7S-47S Daphne PEDERSON et al. [facility] 2017, 70: 252-289 Performed By: #### P T, PTT, TRIG, CMP, CBC, MG1, PHOS ####[facility] [place], [place] [phone] PT Sec 11.0 sec Normal 9.7-13.0 [facility] Comment on above: Performed By: #### P T, PTT, TRIG, CMP, CBC, MG1, PHOS ####[facility] [place], [place] [phone] Respiratory Cult/Stainon Respiratory Cult/Stain Sp. Request/Comment: - Specimen received in sterile container. Smear Result - Rare Mixed oral kaylynn Many Polymorphonuclear leukocytes Rare Epithelial cells Culture Result - Few Staphylococcus aureus --> ABNORMAL ALERT Insignificant colony count. No further workup. --> ABNORMAL ALERT Few Normal respiratory kaylynn present Critically abnormal [facility] Comment on above: Performed By: #### R CULST ####[address] [phone] Triglycerideon 04-28-2021 Fasting Time Unknown Normal [facility] Comment on above: Performed By: #### P T, PTT, TRIG, CMP, CBC, MG1, PHOS ####[place] [address] [place], [place] [phone] Triglyceride [Mass/Vol] 155 mg/dL High <150 [facility] Comment on above: Result Comment: <150 mg/dL, Normal 150-199 mg/dL, Borderline high 200-499 mg/dL, High >499 mg/dL, Very high Reference: 1. National Cholesterol Education Program ATP III Guideline At-A-Glance Quick Desk Reference: National Heart, Lung, and Blood [place]. National Institutes of Health. 2001: NIH Publication No. 01-3305. Performed By: #### P T, PTT, TRIG, CMP, CBC, MG1, PHOS ####[place] [address] [place], [place] [phone] Urinalysison 04-28-2021 Bilirubin, Urine Negative Normal Negative [facility] Comment on above: Performed By: #### U A ####[place] [address] [address] [place] [phone] Clarity (U) Clear Normal Clear [facility] Comment on above: Performed By: #### U A ####[place] [phone] Color (U) Light Yellow Critically abnormal Yellow [facility] Comment on above: Performed By: #### U A ####[place] [phone] Comments SEE COMMENT Normal [facility] Comment on above: Result Comment: Micr oscopic not warranted Performed By: #### U A ####[place] [phone] Glucose Ql (U) Negative Normal Negative [facility] Comment on above: Performed By: #### U A ####[place] [phone] Hemoglobin/Blood,U r Negative Normal Negative [facility] Comment on above: Performed By: #### U A ####[place] [phone] Ketones Ql (U) 1+ Critically abnormal Negative [facility] Comment on above: Performed By: #### U A ####[place] [phone] Leukest Negative Normal Negative [facility] Comment on above: Performed By: #### U A ####[place] [address] [address] [place] [phone] Nitrite Ql (U) Negative Normal Negative [facility] Comment on above: Performed By: #### U A ####[place] [phone] pH (U) 5.0 [pH] Normal 5.0-8.0 [facility] Comment on above: Performed By: #### U A ####[place] [address], [place] [phone] Protein, Urine Negative Normal Negative [facility] Comment on above: Performed By: #### U A ####[place] [address] [place], [place] [phone] Specific [place], Ur 1.023 Normal 1.005-1.030 [facility] Comment on above: Performed By: #### U A ####[place] [address], [place] [phone] Urine Karl Comment SEE COMMENT Normal [facility] Comment on above: Result Comment: N/A Performed By: #### U A ####[place] [address], [place] [phone] Urobilinogen (U) [Mass/Vol] Negative Normal Negative [facility] Comment on above: Performed By: #### U A ####[place] [address] [address], [place] [phone] APTTon 04-27-2021 aPTT Coag (Bld) [Time] 21.9 s Low 23.0-32.4 [facility] Comment on above: Result Comment: Unfr actionated [...] laboratory APTT reagent in use throughout the [facility]. Performed By: #### P HOS, CMP, PTT, CBC, MG1, PT ####[place] [address] [place], [place] [phone] CBCon 10-09-2021 Absolute nRBC <0.01 Normal <0.01 [facility] Comment on above: Performed By: #### P HOS, CMP, PTT, CBC, MG1, PT ####[place] [address] [address] [place] [phone] Erythrocyte distribution width (RBC) [Ratio] 11.9 % Normal 11.5-15.0 [facility] Comment on above: Performed By: #### P HOS, CMP, PTT, CBC, MG1, PT ####[address] [phone] Hematocrit (Bld) [Volume fraction] 39.3 % Normal 36.0-46.0 [facility] Comment on above: Performed By: #### P HOS, CMP, PTT, CBC, MG1, PT ####[place] [phone] Hemoglobin (Bld) [Mass/Vol] 13.3 g/dL Normal 11.5-15.5 [facility] Comment on above: Performed By: #### P HOS, CMP, PTT, CBC, MG1, PT ####[place] [phone] MCH 31.0 pG Normal 26.0-34.0 [facility] Comment on above: Performed By: #### P HOS, CMP, PTT, CBC, MG1, PT ####[address] [phone] MCHC (RBC) [Mass/Vol] 33.8 g/dL Normal 30.5-36.0 [facility] Comment on above: Performed By: #### P HOS, CMP, PTT, CBC, MG1, PT ####[place] [address] [phone] MCV (RBC) [Entitic vol] 91.6 fL Normal 80.0-100.0 [facility] Comment on above: Performed By: #### P HOS, CMP, PTT, CBC, MG1, PT ####[place] [address], [place] [phone] Platelet mean volume (Bld) [Entitic vol] 9.8 fL Normal 9.0-12.7 [facility] Comment on above: Performed By: #### P HOS, CMP, PTT, CBC, MG1, PT ####[address], [place] [phone] Platelets (Bld) [#/Vol] 242 10*3/uL Normal 150-400 [facility] Comment on above: Performed By: #### P HOS, CMP, PTT, CBC, MG1, PT ####[address], [place] [phone] RBC (Bld) [#/Vol] 4.29 10*6/uL Normal 3.90-5.20 [facility] Comment on above: Performed By: #### P HOS, CMP, PTT, CBC, MG1, PT ####[address] [phone] WBC (Bld) [#/Vol] 17.39 10*3/uL High 3.70-11.[address] [facility] Comment on above: Performed By: #### P HOS, CMP, PTT, CBC, MG1, PT ####[address] [phone] Comp Metabolic Panelon 04-27 Albumin [Mass/Vol] 3.9 g/dL Normal 3.9-4.9 [facility] Comment on above: Performed By: #### P HOS, CMP, PTT, CBC, MG1, PT ####[address], [place] [phone] ALP [Catalytic activity/Vol] 41 U/L Normal 34-123 [facility] Comment on above: Performed By: #### P HOS, CMP, PTT, CBC, MG1, PT ####[facility], [place] [phone] ALT [Catalytic activity/Vol] 26 U/L Normal 7-38 [facility] Comment on above: Performed By: #### P HOS, CMP, PTT, CBC, MG1, PT ####[place] [address] [address], [place] [phone] Anion gap [Moles/Vol] 10 mmol/L Normal 9-18 [facility] Comment on above: Performed By: #### P HOS, CMP, PTT, CBC, MG1, PT ####[place] [address], [place] [phone] AST [Catalytic activity/Vol] 63 U/L High 13-35 [facility] Comment on above: Performed By: #### P HOS, CMP, PTT, CBC, MG1, PT ####[place] [address], [place] [phone] Bilirubin [Mass/Vol] 0.5 mg/dL Normal 0.2-1.3 [facility] Comment on above: Performed By: #### P HOS, CMP, PTT, CBC, MG1, PT ####[place] [address], [place] [phone] Calcium [Mass/Vol] 8.6 mg/dL Normal 8.5-10.2 [facility] Comment on above: Performed By: #### P HOS, CMP, PTT, CBC, MG1, PT ####[place] [address], [place] [phone] Chloride [Moles/Vol] 109 mmol/L High 97-105 [facility] Comment on above: Performed By: #### P HOS, CMP, PTT, CBC, MG1, PT ####[place] [address], [place] [phone] CO2 [Moles/Vol] 23 mmol/L Normal 22-30 [facility] Comment on above: Performed By: #### P HOS, CMP, PTT, CBC, MG1, PT ####[facility] [place] [address] [phone] Creatinine [Mass/Vol] 0.76 mg/dL Normal 0.58-0.96 [facility] Comment on above: Performed By: #### P HOS, CMP, PTT, CBC, MG1, PT ####[address] [phone] eGFR- Amer. >60 Normal [facility] Comment on above: Performed By: #### P HOS, CMP, PTT, CBC, MG1, PT ####[address] [phone] eGFR-All Other Races >60 Normal [facility] Comment on above: Result Comment: eGFR (Estimated [...] P HOS, CMP, PTT, CBC, MG1, PT ####[address] [phone] Glucose [Mass/Vol] 119 mg/dL High 74-99 [facility] Comment on above: Result Comment: The [place] [employer] (ADA) provides guidance for cutoff [...] Standards of Medical Care in Diabetes 2016, [place] [employer]. Diabetes Care. 2016.39(Suppl 1). Performed By: #### P HOS, CMP, PTT, CBC, MG1, PT ####[place] [address] [address], [place] [phone] Potassium [Moles/Vol] 4.0 mmol/L Normal 3.7-5.1 [facility] Comment on above: Performed By: #### P HOS, CMP, PTT, CBC, MG1, PT ####[address] [phone] Protein [Mass/Vol] 5.9 g/dL Low 6.3-8.0 [facility] Comment on above: Performed By: #### P HOS, CMP, PTT, CBC, MG1, PT ####[address] [phone] Sodium [Moles/Vol] 142 mmol/L Normal 136-144 [facility] Comment on above: Performed By: #### P HOS, CMP, PTT, CBC, MG1, PT ####[address] [phone] Urea nitrogen [Mass/Vol] 13 mg/dL Normal 7-21 [facility] Comment on above: Performed By: #### P HOS, CMP, PTT, CBC, MG1, PT ####[address] [phone] GASV + ALLon 04-27-2021 Base Excess 1 mmol/L Normal [facility] Comment on above: Performed By: #### V ALLBG ####[address] [phone] Blood Gas Comm, Ziyad . Normal [facility] Comment on above: Performed By: #### V ALLBG ####[facility], [place] [phone] Body temperature 98.6 [degF] Normal [facility] Comment on above: Performed By: #### V ALLBG ####[facility] [place] [phone] Calcium [Moles/Vol] 1.21 mmol/L Normal 1.08-1.30 [facility] Comment on above: Performed By: #### V ALLBG ####[place] [address] [address] [place] [phone] Carboxyhemoglobin, Ziyad 0.7 % Normal <2.1 [facility] Comment on above: Performed By: #### V ALLBG ####[place] [address] [address] [place] [phone] CO2 [Moles/Vol] 29 mmol/L Normal 25-29 [facility] [facility] [place] Comment on above: Performed By: #### V ALLBG ####[place] [address] [address] [phone] Glucose [Mass/Vol] 97 mg/dL Normal 60-105 [facility] Comment on above: Performed By: #### V ALLBG ####[place] [address] [address] [phone] HCO3 (Bld) [Moles/Vol] 27 mmol/L Normal 24-28 [facility] [place] Comment on above: Performed By: #### V ALLBG ####[facility] [phone] Hematocrit (Bld) [Volume fraction] 38.2 % Normal 36.0-46.0 [facility] [place] Comment on above: Performed By: #### V ALLBG ####[place] [phone] [place] [phone] Hemoglobin (Bld) [Mass/Vol] 12.4 g/dL Normal 11.5-15.5 [facility] [place] Comment on above: Performed By: #### V ALLBG ####[place] [address] [address] [place] [phone] Lactate [Moles/Vol] 1.1 mmol/L Normal 0.5-2.2 [facility] [place] Comment on above: Performed By: #### V ALLBG ####[place] [address] [address] [phone] Methemoglobin 0.7 % Normal <1.6 [facility] [place] Comment on above: Performed By: #### V ALLBG ####[place] [address] [address] [place] [phone] O2 Administered 100% Normal [facility] [place] Comment on above: Performed By: #### V ALLBG ####[place] [address] [address] [place] [phone] Oxyhemoglobin, Ziyad. 92 % High 60-85 [facility] [place] Comment on above: Performed By: #### V ALLBG ####[place] [address] [address] [place] [phone] pCO2 53 mm Hg Normal 42-55 [facility] [place] Comment on above: Performed By: #### V ALLBG ####[place] [address] [address] [phone] pCO2, Temp Correct 53 mm Hg Normal 42-55 [facility] Comment on above: Performed By: #### V ALLBG ####[place] [address] [address] [phone] pH (Bld) 7.33 [pH] Normal 7.32-7.42 [facility] [place] Comment on above: Performed By: #### V ALLBG ####[place] [address] [address], [place] [phone] pH, Temp Corrected 7.33 Normal 7.32-7.42 [facility] Comment on above: Performed By: #### V ALLBG ####[facility] [phone] pO2 70 mm Hg High 35-45 [facility] [place] Comment on above: Performed By: #### V ALLBG ####[facility], [place] [phone] pO2, Temp Corrected 70 mm Hg High 35-45 [facility] [place] Comment on above: Performed By: #### V ALLBG ####[place] [address] [address] [phone] Potassium [Moles/Vol] 3.9 mmol/L Normal 3.5-5.0 [facility] [place] Comment on above: Performed By: #### V ALLBG ####[place] [address] [address] [place] [phone] Sodium [Moles/Vol] 143 mmol/L Normal 136-144 [facility] Comment on above: Performed By: #### V ALLBG ####[place] [address] [place] [phone] Base Excess 0 mmol/L Normal [facility] [place] Comment on above: Performed By: #### V ALLBG ####[place] [phone]CK[address], [place] [phone] Blood Gas Comm, Ziyad . Normal [facility] [place] Comment on above: Performed By: #### V ALLBG ####[facility], [place] [phone] Body temperature 98.6 [degF] Normal [facility] Comment on above: Performed By: #### V ALLBG ####[place] [phone], [place] [phone] Calcium [Moles/Vol] 1.22 mmol/L Normal 1.08-1.30 [facility] [place] Comment on above: Performed By: #### V ALLBG ####[facility] [phone] Carboxyhemoglobin, Ziyad 0.6 % Normal <2.1 [facility] [place] Comment on above: Performed By: #### V ALLBG ####[place] [address] [address] [place] [phone] CO2 [Moles/Vol] 27 mmol/L Normal 25-29 [facility] [place] Comment on above: Performed By: #### V ALLBG ####[place] [address] [address] [place] [phone] Glucose [Mass/Vol] 130 mg/dL High 60-105 [facility] Comment on above: Performed By: #### V ALLBG ####[place] [address] [place] [phone] HCO3 (Bld) [Moles/Vol] 26 mmol/L Normal 24-28 [facility] [place] Comment on above: Performed By: #### V ALLBG ####[place] [address] [place] [phone] Hematocrit (Bld) [Volume fraction] 42.7 % Normal 36.0-46.0 [facility] [place] Comment on above: Performed By: #### V ALLBG ####[place] [address] [place] [phone] Hemoglobin (Bld) [Mass/Vol] 13.9 g/dL Normal 11.5-15.5 [facility] [place] Comment on above: Performed By: #### V ALLBG ####[place] [address] [place] [phone] Lactate [Moles/Vol] 1.3 mmol/L Normal 0.5-2.2 [facility] [place] Comment on above: Performed By: #### V ALLBG ####[place] [address] [place] [phone] Methemoglobin 1.1 % Normal <1.6 [facility] [place] Comment on above: Performed By: #### V ALLBG ####[place] [address] [place] [phone] O2 Administered 100% Normal [facility] [place] Comment on above: Performed By: #### V ALLBG ####[place] [phone] Oxyhemoglobin, Ziyad. 88 % High 60-85 [facility] [place] Comment on above: Performed By: #### V ALLBG ####[place] [address] [address] [place] [phone] pCO2 49 mm Hg Normal 42-55 [facility] [place] Comment on above: Performed By: #### V ALLBG ####[address] [place] [phone] pCO2, Temp Correct 49 mm Hg Normal 42-55 [facility] Comment on above: Performed By: #### V ALLBG ####[place] [address] [address] [place] [phone] pH (Bld) 7.34 [pH] Normal 7.32-7.42 [facility] [place] Comment on above: Performed By: #### V ALLBG ####[place] [address] [address] [place] [phone] pH, Temp Corrected 7.34 Normal 7.32-7.42 [facility] Comment on above: Performed By: #### V ALLBG ####[place] [address] [place] [phone] pO2 64 mm Hg High 35-45 [facility] [place] Comment on above: Performed By: #### V ALLBG ####[place] [address] [place] [phone] pO2, Temp Corrected 64 mm Hg High 35-45 [facility] [place] Comment on above: Performed By: #### V ALLBG ####[place] [address] [place], [place] [phone] Potassium [Moles/Vol] 4.1 mmol/L Normal 3.5-5.0 [facility] [place] Comment on above: Performed By: #### V ALLBG ####[address] [phone] Sodium [Moles/Vol] 142 mmol/L Normal 136-144 [facility] Comment on above: Performed By: #### V ALLBG ####[address] [phone] Magnesiumon 04-27-2021 Magnesium [Mass/Vol] 2.2 mg/dL Normal 1.7-2.3 [facility] [place] Comment on above: Performed By: #### P HOS, CMP, PTT, CBC, MG1, PT ####[address] [phone] NURSING PROGon 04-27-2021 NURSING PROG HNO ID: [id number] Author: Jack Richards RN Service: Nursing Author Type: Registered Nurse Type: Nursing Progress Note Filed: 04/27/2021 10:46 PM Note Text: Nursing Progress: Topic: RESTRAINT NON-VIOLENT PATIENT NAME: Oscar Pineda PATIENT LOCATION: [place] [address] The patient demonstrates Lack of Understanding/Ability to [...] 2021 TIME: 10:00 PM Jack Richards RN [facility] NURSING PROG HNO ID: [id number] Author: Karsten Goldsmith RN Service: Nursing Author Type: Registered Nurse Type: Nursing Progress Note Filed: 04/27/2021 8:51 AM Note Text: Nursing Progress: Topic: RESTRAINT NON-VIOLENT PATIENT NAME: Oscar Pineda PATIENT LOCATION: [place] [address] The patient demonstrates Lack of Understanding/Ability to [...] TIME: 8:51 AM Karsten Goldsmith RN Normal [facility] [place] Phosphoruson 04-27-2021 Phosphate [Mass/Vol] 3.3 mg/dL Normal 2.7-4.8 [facility] [place] Comment on above: Performed By: #### P HOS, CMP, PTT, CBC, MG1, PT ####[facility] [address] [place], [place] [phone] Protimeon 04-27-2021 PT INR 1.1 Normal 0.9-1.3 [facility] [place] Comment on above: Result Comment: Neha min K Antagonist (VKA) Therapeutic Range: INR 2 to 3 (Target INR of 2.5) Note: For patients treated with VKA drugs, such as warfarin, the [employer] 2012 Guideline recommends [...] Chest 2012, 141:7S-47S Daphne RA, et al. [facility] 2017, 70: 252-289 Performed By: #### P HOS, CMP, PTT, CBC, MG1, PT ####[facility] [place], [place] [phone] PT Sec 11.2 sec Normal 9.7-13.0 [facility] [place] Comment on above: Performed By: #### P HOS, CMP, PTT, CBC, MG1, PT ####[facility] [address], [place] [phone] US ABDOMEN LTDon 04-27-2021 US ABDOMEN LTD * * *Final Report* * * DATE OF EXAM: Apr 27 2021 12:24PM [facility] - US ABDOMEN LTD / PROCEDURE [...] within the hepatic veins or visualized IVC. Art Coordinator: PSCB Transcribe Date/Time: Apr 27 2021 12:34P Dictated by : POONAM BLUM MD This examination was interpreted and the report reviewed and electronically signed by: ALICIA MENDOZA MD on Apr 27 2021 2:57PM EST [id number] Normal [facility] XR CHEST 1V FRONTALon 2020 XR CHEST [...] cardiomediastinal silhouette. Other: . IMPRESSION: See result. Art Coordinator: PSCB Transcribe Date/Time: Apr 27 2021 10:29A Dictated by : TAYLOR CORONA MD This examination was interpreted and the report reviewed and electronically signed by: TAYLOR CORONA MD on Apr 27 2021 10:31AM EST [id number] Normal [facility] [place] ANES Sachin 04-26-2021 ANES POST HNO ID: [id number] Author: Tamara Brown DO Service: Anesthesiology Author [...] 26, 2021 TIME: 2:26 PM PAGER/CONTACT #: [phone] Normal [facility] [place] APTTon 04-26-2021 aPTT Coag (Bld) [Time] 22.2 s Low 23.0-32.4 [facility] [place] Comment on above: Result Comment: Unfr actionated [...] laboratory APTT reagent in use throughout the [facility]. Performed By: #### C BC, MG1, PT, PTT, BMP, PHOS ####[facility] [address] [place], [place] [phone] BRIEF OP NOTon 04-26-2021 BRIEF OP NOT HNO ID: [id number] Author: Kayce Wagner MD Service: Radiology Author Type: Physician Type: Brief Op Note Filed: 04/26/2021 3:28 PM Note Text: BRIEF OPERATIVE / PROCEDURE NOTE LOG ID: [id number] SURGERY/PROCEDURE DATE: 04/26/2021 INCISION/PROCEDURE START TIME: 9:25 AM INCISION CLOSE/PROCEDURE END TIME: 11:20 AM SURGEON(S)/PROCEDURALIS T(S) AND CLOTH EXAMINER MACHINE(S): Surgeon(s) and Role: * Kayce Wagner MD [...] DATE: April 26, 2021 TIME: 2:59 PM [phone] Normal [facility] [place] Basic Metabolic Panlon 04-26 Anion gap [Moles/Vol] 11 mmol/L Normal 9-18 [facility] [place] Comment on above: Performed By: #### C BC, MG1, PT, PTT, BMP, PHOS ####[facility] [address] [place], [place] [phone] Calcium [Mass/Vol] 8.3 mg/dL Low 8.5-10.2 [facility] Comment on above: Performed By: #### C BC, MG1, PT, PTT, BMP, PHOS ####[place] [phone] Chloride [Moles/Vol] 107 mmol/L High 97-105 [facility] [place] Comment on above: Performed By: #### C BC, MG1, PT, PTT, BMP, PHOS ####[place] [phone] CO2 [Moles/Vol] 22 mmol/L Normal 22-30 [facility] [place] Comment on above: Performed By: #### C BC, MG1, PT, PTT, BMP, PHOS ####[place] [phone] Creatinine [Mass/Vol] 0.74 mg/dL Normal 0.58-0.96 [facility] [place] Comment on above: Performed By: #### C BC, MG1, PT, PTT, BMP, PHOS ####[place] [phone] eGFR- Amer. >60 Normal [facility] Comment on above: Performed By: #### C BC, MG1, PT, PTT, BMP, PHOS ####[address] [phone] eGFR-All Other Races >60 Normal [facility] [place] Comment on above: Result Comment: eGFR (Estimated [...] C BC, MG1, PT, PTT, BMP, PHOS ####[place] [phone] Glucose [Mass/Vol] 178 mg/dL High 74-99 [facility] Comment on above: Result Comment: The [place] [employer] (ADA) provides guidance for cutoff [...] Standards of Medical Care in Diabetes 2016, [place] [employer]. Diabetes Care. 2016.39(Suppl 1). Performed By: #### C BC, MG1, PT, PTT, BMP, PHOS ####[address] [phone] Potassium [Moles/Vol] 4.1 mmol/L Normal 3.7-5.1 [facility] [place] Comment on above: Performed By: #### C BC, MG1, PT, PTT, BMP, PHOS ####[address] [phone] Sodium [Moles/Vol] 140 mmol/L Normal 136-144 [facility] Comment on above: Performed By: #### C BC, MG1, PT, PTT, BMP, PHOS ####[address] [phone] Urea nitrogen [Mass/Vol] 14 mg/dL Normal 7-21 [facility] [place] Comment on above: Performed By: #### C BC, MG1, PT, PTT, BMP, PHOS ####[address] [phone] CBCon 04-26-2021 Absolute nRBC <0.01 Normal <0.01 [facility] [place] Comment on above: Performed By: #### C BC, MG1, PT, PTT, BMP, PHOS ####[place] [address] [address] [place] [phone] Erythrocyte distribution width (RBC) [Ratio] 11.9 % Normal 11.5-15.0 [facility] Comment on above: Performed By: #### C BC, MG1, PT, PTT, BMP, PHOS ####[place] [address] [place] [phone] Hematocrit (Bld) [Volume fraction] 38.5 % Normal 36.0-46.0 [facility] Comment on above: Performed By: #### C BC, MG1, PT, PTT, BMP, PHOS ####[place] [address] [place] [phone] Hemoglobin (Bld) [Mass/Vol] 13.2 g/dL Normal 11.5-15.5 [facility] [place] Comment on above: Performed By: #### C BC, MG1, PT, PTT, BMP, PHOS ####[place] [address] [place] [phone] MCH 31.7 pG Normal 26.0-34.0 [facility] Comment on above: Performed By: #### C BC, MG1, PT, PTT, BMP, PHOS ####[place] [address] [place] [phone] MCHC (RBC) [Mass/Vol] 34.3 g/dL Normal 30.5-36.0 [facility] Comment on above: Performed By: #### C BC, MG1, PT, PTT, BMP, PHOS ####[place] [address] [place] [phone] MCV (RBC) [Entitic vol] 92.3 fL Normal 80.0-100.0 [facility] [place] Comment on above: Performed By: #### C BC, MG1, PT, PTT, BMP, PHOS ####[place] [address] [address] [place], [place] [phone] Platelet mean volume (Bld) [Entitic vol] 9.6 fL Normal 9.0-12.7 [facility] [place] Comment on above: Performed By: #### C BC, MG1, PT, PTT, BMP, PHOS ####[facility] [place], [place] [phone] Platelets (Bld) [#/Vol] 227 10*3/uL Normal 150-400 [facility] [place] Comment on above: Performed By: #### C BC, MG1, PT, PTT, BMP, PHOS ####[place] [address] [place], [place] [phone] RBC (Bld) [#/Vol] 4.17 10*6/uL Normal 3.90-5.20 [facility] Comment on above: Performed By: #### C BC, MG1, PT, PTT, BMP, PHOS ####[place] [address] [place], [place] [phone] WBC (Bld) [#/Vol] 17.98 10*3/uL High 3.70-11.[address] [facility] Comment on above: Performed By: #### C BC, MG1, PT, PTT, BMP, PHOS ####[place] [address] [place], [place] [phone] CONSULTon 04-26-2021 CONSULT HNO ID: [id number] Author: Jose M Cedillo MD Service: Interventional [...] Oscar BRITTON (more content not included)... Normal [facility] CONSULT HNO ID: [id number] Author: Oneida Ruano MD Service: Cardiovascular Medicine Author Type: Physician Type: Consults Filed: 04/27/2021 2:36 PM Note Text: [facility] CONSULT NOTE Oscar Pineda [id number] CONSULTING SERVICE: SICU DATE OF ADMISSION: 04/26/2021 [...] Problems: # (more content not included)... Normal [facility] CT ABLATION MSK NOT BONE ALDO ORon 04-26-2021 CT ABLATION MSK NOT BONE TUMOR * * *Final Report* * * * * * SEE BOTTOM OF REPORT FOR ADDENDED TEXT * * * DATE OF EXAM: Apr 26 2021 11:24AM [facility] [place] CT ABLATION MSK NOT BONE TUMOR / PROCEDURE REASON: R19.57-Hlkyx-qloyurevj and pelvic swelling, mass and lump, unspecified [...] needs. Time Out Time: General anesthesia induction 0849 Procedure Start and End Time: 0925 and [...] for fur (more content not included)... Normal [facility] CT BRAIN WO IVCONon 04-26-[address] BRAIN WO IVCON * * *Final Report* * * DATE OF EXAM: Apr 26 2021 1:45PM [facility] 0504 - CT BRAIN WO IVCON / [...] reduction techniques were required COMPARISON: None. RESULT: Slate Splitter (topogram) images: Endotracheal tube. Post-operative change: None. [...] Portable head CT demonstrating no acute findings. Art Coordinator: ANEL Transcribe Date/Time: Apr 26 2021 1:56P Dictated by : MARIA L SCHMIDT MD This examination was interpreted and the report reviewed and electronically signed by: MARIA L SCHMIDT MD on Apr 26 2021 1:58PM EST [id number] Normal [facility] Confirm Blood Typeon 021 ABO/RH(D) Positive Normal [facility] Comment on above: Performed By: #### C ONABO ####[address] [phone] Performed By: #### T SCR ####[address] [phone] Expedited KITCO03ip 04-26-20 21 SARS-CoV-2 (COVID-19) RNA ROX+probe Ql (Unsp spec) UPPER RESPIRATORY TRACT SWAB Normal [facility] Comment on above: Performed By: #### E XCOVD ####[address] [phone] SARS-CoV-2 (COVID-19) RNA ROX+probe Ql (Unsp spec) Negative for COVID19 (SARS CoV2) by RT-PCR or equivalent method. Normal Negative for COVID19 (SARS CoV2) by RT-PCR or equivalent method. [facility] Comment on above: Result Comment: This test has been authorized by FDA under an Emergency Use Authorization (EUA). Test performed by [facility], [facility] [place], [address] [place], [place] [address]. Performed By: #### E XCOVD ####[place] [address] [place], [place] [phone] GASV + ALLon 04-26-2021 Base Excess Negative Normal [facility] Comment on above: Performed By: #### V ALLBG ####[address] [phone] Blood Gas Comm, Ziyad .VENOUS Normal [facility] Comment on above: Performed By: #### V ALLBG ####[address] [phone] Body temperature 98.6 [degF] Normal [facility] Comment on above: Performed By: #### V ALLBG ####[place] [phone] Calcium [Moles/Vol] 1.23 mmol/L Normal 1.08-1.30 [facility] Comment on above: Performed By: #### V ALLBG ####[place] [phone] Carboxyhemoglobin, Ziyad 0.9 % Normal <2.1 [facility] Comment on above: Performed By: #### V ALLBG ####[place] [phone] CO2 [Moles/Vol] 27 mmol/L Normal 25-29 [facility] Comment on above: Performed By: #### V ALLBG ####[place] [address] [address] [place], [place] [phone] Glucose [Mass/Vol] 144 mg/dL High 60-105 [facility] Comment on above: Performed By: #### V ALLBG ####[place] [address] [address] [place], [place] [phone] HCO3 (Bld) [Moles/Vol] 25 mmol/L Normal 24-28 [facility] [place] Comment on above: Performed By: #### V ALLBG ####[place] [address] [address] [place] [phone] Hematocrit (Bld) [Volume fraction] 43.2 % Normal 36.0-46.0 [facility] Comment on above: Performed By: #### V ALLBG ####[place] [address] [address] [place] [phone] Hemoglobin (Bld) [Mass/Vol] 14.1 g/dL Normal 11.5-15.5 [facility] Comment on above: Performed By: #### V ALLBG ####[address] [place] [phone] Lactate [Moles/Vol] 2.0 mmol/L Normal 0.5-2.2 [facility] Comment on above: Performed By: #### V ALLBG ####[place] [address] [place] [phone] Methemoglobin 0.7 % Normal <1.6 [facility] Comment on above: Performed By: #### V ALLBG ####[place] [phone] O2 Administered 100% Normal [facility] Comment on above: Performed By: #### V ALLBG ####[place] [address] [place] [phone] Oxyhemoglobin, Ziyad. 81 % Normal 60-85 [facility] Comment on above: Performed By: #### V ALLBG ####[place] [address] [place] [phone] pCO2 53 mm Hg Normal 42-55 [facility] Comment on above: Performed By: #### V ALLBG ####[place] [address] [place] [phone] pCO2, Temp Correct 53 mm Hg Normal 42-55 [facility] Comment on above: Performed By: #### V ALLBG ####[place] [address] [address], [place] [phone] pH (Bld) 7.30 [pH] Low 7.32-7.42 [facility] Comment on above: Performed By: #### V ALLBG ####[place] [address] [place] [phone] pH, Temp Corrected 7.30 Low 7.32-7.42 [facility] Comment on above: Performed By: #### V ALLBG ####[place] [address] [place] [phone] pO2 52 mm Hg High 35-45 [facility] Comment on above: Performed By: #### V ALLBG ####[place] [address] [place] [phone] pO2, Temp Corrected 52 mm Hg High 35-45 [facility] Comment on above: Performed By: #### V ALLBG ####[place] [address] [address] [place] [phone] Potassium [Moles/Vol] 4.4 mmol/L Normal 3.5-5.0 [facility] Comment on above: Performed By: #### V ALLBG ####[place] [address] [address] [place] [phone] Sodium [Moles/Vol] 142 mmol/L Normal 136-144 [facility] Comment on above: Performed By: #### V ALLBG ####[place] [address] [address] [place] [phone] Base Excess Negative Normal [facility] Comment on above: Performed By: #### V ALLBG ####[place] [address] [address], [place] [phone] Blood Gas Comm, Ziyad .VENOUS Normal [facility] Comment on above: Performed By: #### V ALLBG ####[facility], [place] [phone] Body temperature 98.6 [degF] Normal [facility] Comment on above: Performed By: #### V ALLBG ####[place] [address] [address] [place] [phone] Calcium [Moles/Vol] 1.25 mmol/L Normal 1.08-1.30 [facility] Comment on above: Performed By: #### V ALLBG ####[place] [address] [address] [place] [phone] Carboxyhemoglobin, Ziyad 0.5 % Normal <2.1 [facility] Comment on above: Performed By: #### V ALLBG ####[place] [address] [address] [place] [phone] CO2 [Moles/Vol] 25 mmol/L Normal 25-29 [facility] Comment on above: Performed By: #### V ALLBG ####[place] [address] [address] [place] [phone] Glucose [Mass/Vol] 172 mg/dL High 60-105 [facility] Comment on above: Performed By: #### V ALLBG ####[place] [address] [address] [place] [phone] HCO3 (Bld) [Moles/Vol] 24 mmol/L Normal 24-28 [facility] Comment on above: Performed By: #### V ALLBG ####[place] [address] [address] [phone] Hematocrit (Bld) [Volume fraction] 44.2 % Normal 36.0-46.0 [facility] Comment on above: Performed By: #### V ALLBG ####[place] [address] [address] [place] [phone] Hemoglobin (Bld) [Mass/Vol] 14.4 g/dL Normal 11.5-15.5 [facility] Comment on above: Performed By: #### V ALLBG ####[place] [address] [address] [place] [phone] Lactate [Moles/Vol] 2.4 mmol/L High 0.5-2.2 [facility] Comment on above: Performed By: #### V ALLBG ####[place] [address] [address] [place] [phone] Methemoglobin 1.2 % Normal <1.6 [facility] Comment on above: Performed By: #### V ALLBG ####[place] [phone] O2 Administered 100% Normal [facility] Comment on above: Performed By: #### V ALLBG ####[place] [address] [address] [phone] Oxyhemoglobin, Ziyad. 98 % High 60-85 [facility] Comment on above: Performed By: #### V ALLBG ####[place] [address] [address] [place] [phone] pCO2 46 mm Hg Normal 42-55 [facility] Comment on above: Performed By: #### V ALLBG ####[place] [address] [place] [phone] pCO2, Temp Correct 46 mm Hg Normal 42-55 [facility] Comment on above: Performed By: #### V ALLBG ####[place] [address] [address] [place] [phone] pH (Bld) 7.33 [pH] Normal 7.32-7.42 [facility] Comment on above: Performed By: #### V ALLBG ####[place] [address] [address] [place] [phone] pH, Temp Corrected 7.33 Normal 7.32-7.42 [facility] Comment on above: Performed By: #### V ALLBG ####[facility] [address] [place], [place] [phone] pO2 246 mm Hg High 35-45 [facility] Comment on above: Performed By: #### V ALLBG ####[facility] [place], [place] [phone] pO2, Temp Corrected 246 mm Hg High 35-45 [facility] Comment on above: Performed By: #### V ALLBG ####[place] [address] [place], [place] [phone] Potassium [Moles/Vol] 4.4 mmol/L Normal 3.5-5.0 [facility] Comment on above: Performed By: #### V ALLBG ####[facility] [place], [place] [phone] Sodium [Moles/Vol] 143 mmol/L Normal 136-144 [facility] Comment on above: Performed By: #### V ALLBG ####[place] [address] [place], [place] [phone] HISTORY PHYSICALon HISTORY PHYSICAL HNO ID: [id number] Author: Kayce Wagner MD Service: Radiology Author [...] April 26, 2021 TIME: 8:54 PM Normal [facility] Magnesiumon 04-26-2021 Magnesium [Mass/Vol] 1.9 mg/dL Normal 1.7-2.3 [facility] Comment on above: Performed By: #### C BC, MG1, PT, PTT, BMP, PHOS ####[facility] [address] [place], [place] [phone] NURSING PROGon 04-26-2021 NURSING PROG HNO ID: [id number] Author: Jack Richards RN Service: Nursing Author Type: Registered Nurse Type: Nursing Progress Note Filed: 04/26/2021 9:21 PM Note Text: Nursing Progress: Topic: RESTRAINT NON-VIOLENT PATIENT NAME: Oscar Pineda PATIENT LOCATION: [place] [address] The patient demonstrates [...] TIME: 8:00 PM Jack Richards RN Normal [facility] NURSING PROG HNO ID: [id number] Author: Karsten Goldsmith RN Service: Nursing Author Type: Registered Nurse Type: Nursing Progress Note Filed: 04/26/2021 6:59 PM Note Text: Nursing Progress: Topic: RESTRAINT NON-VIOLENT PATIENT NAME: Oscar Pineda PATIENT LOCATION: [place] [address] The patient demonstrates [...] TIME: 6:58 PM Karsten Goldsmith RN Normal [facility] PT EDon 04-26-2021 PT ED HNO ID: [id number] Author: Agnes Schaefer RN Service: Interventional Radiology [...] SUPPLEMENTAL MATERIAL: None REFERRAL (RECOMMENDATION): None Normal [facility] Phosphoruson 04-26-2021 Phosphate [Mass/Vol] 3.1 mg/dL Normal 2.7-4.8 [facility] Comment on above: Performed By: #### C BC, MG1, PT, PTT, BMP, PHOS ####[facility] [address] [place], [place] [phone] Protimeon 04-26-2021 PT INR 1.1 Normal 0.9-1.3 [facility] Comment on above: Result Comment: Neha min K Antagonist (VKA) Therapeutic Range: INR 2 to 3 (Target INR of 2.5) Note: For patients treated with VKA drugs, such as warfarin, the [employer] 2012 Guideline recommends [...] Chest 2012, 141:7S-47S Daphne PEDERSON et al. [facility] 2017, 70: 252-289 Performed By: #### C BC, MG1, PT, PTT, BMP, PHOS ####[address] [phone] PT Sec 11.9 sec Normal 9.7-13.0 [facility] Comment on above: Performed By: #### C BC, MG1, PT, PTT, BMP, PHOS ####[place] [address] [place], [place] [phone] Staph aureus PCRon 1 MRSA PCR Negative Normal [facility] Comment on above: Performed By: #### S APCR ####[place] [address] [place], [place] [phone] S aureus Spec Source Nasal Normal [facility] Comment on above: Performed By: #### S APCR ####[address] [phone] Staph aureus PCR Negative Normal [facility] Comment on above: Performed By: #### S APCR ####[address] [phone] XR ABDOMEN 1V SUPINEon 04-26 XR ABDOMEN [...] loops of bowel. No focal bony abnormality. Art Coordinator: [facility] Transcribe Date/Time: Apr 26 2021 2:53P Dictated by : RAMIN BROWNLEE MD This examination was interpreted and the report reviewed and electronically signed by: RAMIN BROWNLEE MD on Apr 26 2021 3:05PM EST [id number] Normal [facility] XR CHEST 1V FRONTAL PORTon 1 XR [...] No acute process identified. IMPRESSION: See result. Art Coordinator: [facility] Transcribe Date/Time: Apr 26 2021 6:05P Dictated by : JASON LOWE MD This examination was interpreted and the report reviewed and electronically signed by: JASON LOWE MD on Apr 26 2021 6:07PM EST [id number] Normal [facility] XR CHEST 1V FRONTAL PORT * * [...] No acute process identified. IMPRESSION: See result. Art Coordinator: [facility] Transcribe Date/Time: Apr 26 2021 3:57P Dictated by : JASON LOWE MD This examination was interpreted and the report reviewed and electronically signed by: JASON LOWE MD on Apr 26 2021 3:58PM EST [id number] Normal [facility] NURSING PROGon 04-24-2021 NURSING PROG HNO ID: [id number] Author: Shereen Kwok LPN Service: ? Author Type: LICENSED NURSE Type: Nursing Progress Note Filed: 04/24/2021 2:42 PM Note Text: Pre-procedure instructions: Contacted patient and confirmed appt. for Cryoablation scheduled on 04/26/21, at [facility]. Diet: Do not eat solid food after [...] signed. Arrival at 6:30am to desk QB-1 ([facility]) and check in for your procedure. Dip Guider Stoves/Transportation: How will you be arriving for your procedure? Private car. If you will be arriving at [facility] via ambulance or public transportation, please call to discuss. You will need a responsible adult to accompany you to and from the procedure. Your hack driver is required to stay with you until you are taken into the Procedure room. [facility] is currently restricting visitors to two visitors per patient. No visitor under the age of 16. You and your visitor will be screened for temperature and COVID-19 symptoms upon entry to the hospital, and a wristband will be applied when cleared. If you develop any of the following symptoms before your procedure, please call [phone]. Chills, joint pain, rash, sore throat, cough, [...] No Written instructions provided to patient via [employer] If you have any questions please call [phone] Normal [facility] MRI ABDOMEN WO/W IVCONon [facility] Vital Signs Date Time Vital Sign Value Performing Clinician Facility 10-10-2022 10:00-0400 Body height 161.29 cm Shaun Valentine Other [employer] Other 10-10-2022 10:00-0400 Body mass index (BMI) [Ratio] 23.08 kg/m2 Shaun Valentine Other [employer] Other 10-10-2022 10:00-0400 Body weight 60.06 kg Shaun Ball Other [employer] Other 10-10-2022 10:00-0400 Diastolic blood pressure 76 mm[Hg] Shaun Ball Other [employer] Other 10-10-2022 10:00-0400 Respiratory rate 12 /min Shaun Ball Other [employer] Other 10-10-2022 10:00-0400 Systolic blood pressure 110 mm[Hg] Shaun Ball Other [employer] Other 04-28-2022 15:46-0400 Body temperature 99.5 [degF] Melani Russell MD Work Phone: [facility] 04-28-2022 15:46-0400 Body weight 76.39 kg Melani Russell MD Work Phone: [facility] 04-28-2022 15:46-0400 Diastolic blood pressure 76 mm[Hg] eMlani Russell MD Work Phone: [facility] 04-28-2022 15:46-0400 Heart rate 71 /min Melani Russell MD Work Phone: [facility] 04-28-2022 15:46-0400 Respiratory rate 20 /min Melani Russell MD Work Phone: [facility] 04-28-2022 15:46-0400 SaO2% (BldA) [Mass fraction] 97 % Melani Russell MD Work Phone: [facility] 04-28-2022 15:46-0400 Systolic blood pressure 131 mm[Hg] Melani Russell MD Work Phone: [facility] Encounters Encounter Date Encounter Type Care Provider Facility Start: 10-05-2023 End: 10-05-2023 ambulatory SUKHJINDER AUDELIA Not Available Start: 09-28-2023 End: 09-28-2023 ambulatory SUKHJINDER AUDELIA [...] examination without abnormal findings DR SHAUN VALENTINE [facility] Start: 10-27-2022 Telephone encounter Shaun Valentine [facility] Start: 10-27-2022 End: 10-28-[address] SHAUN VALENTINE [facility] Other Start: 10-27-2022 End: 10-28-2022 Encounter for general adult medical examination without abnormal findings DR SHAUN VALENTINE Facility:[facility] Start: 10-10-2022 End: 10-10-2022 ambulatory Shaun Valentine Other [employer] Other Start: 10-10-2022 Encounter for genera l adult medical examination without abnormal findings Shaun Valentine [facility] Start: 10-10-2022 Periodic preventive med est patient 18-39 yrs Shaun Valentine [facility] Start: 04-28-2022 End: 04-29-2022 ambulatory Melani Russell MD Work Phone: Hematology/Oncology Comment on above: History of tumor (Pr imary Dx) Start: 04-28-2022 End: 04-29-2022 Patient encounter procedure Mealni Russell MD Work Phone: [facility] Start: 04-21-2022 End: 04-21-2022 ambulatory MELANI RUSSELL Facility:[facility] Start: 04-21-2022 End: 04-21-2022 Subsequent hospital visit by physician [facility] (I-Stat/1.5t/3t) Work Phone: MRI Q 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] Start: 11-14-2021 ambulatory Melani Hutchison Work Phone: Hematology/Oncology 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 Start: 10-28-2021 Telephone encounter Melani Acuña rd, MD Work Phone: Hematology/Oncology Comment on above: Care Coordination Start: 09-27-2021 End: 09-27-2021 ambulatory MELANI RUSSLEL Facility:[facility] Start: 09-20-2021 End: 09-20-2021 ambulatory MELANI RUSSELL Facility:[facility] Start: 05-07-2021 End: 05-07-2021 ambulatory ALEX URBANO [facility] Start: 05-06-2021 End: 05-06-2021 ambulatory ALEX URBANO [facility] Start: 04-26-2021 End: 04-30-2021 Evaluation and management of inpatient FASALAL POLIAWI [facility] Start: 02-28-2021 End: 02-28-2021 Subsequent hospital visit by physician Kiel [facility] (I-Stat/1.5t) Radiology Comment on above: Intra-abdominal and pelvic swelling, mass and lump, unspecified site [R19.00] Procedures Date Procedure Procedure Detail Performing Clinician Start: 04-29-2021 Antibody screen ALEX URBANO Comment on above: Performed By: #### T SCR ####[facility] [place], [place] [phone] Start: 04-26-2021 Antibody screen ALEX URBANO Comment on above: Performed By: #### T SCR ####[place] [id number] [place], [place] [phone] Start: 02-28-2021 Mri abdomen w/o & w/contrast material Cortez Carter MD Work Phone: Plan of Treatment Date Care Activity Detail Author Start: 03-20-2023 Covid-19 Vaccine () Covid-19 Vaccine () [facility] Start: 03-20-2023 Influenza vaccination [facility] Start: 10-28-2022 End: 05-29-2023 Mri abdomen w/o & w/contrast material MRI ABDOMEN WO/W IVCON Radiology Routine History of tumor Expected: 10/28/2022, Expires: 05/29/2023 [facility] Work Phone: Comment on above: Expected: 10/28/2022 , Expires: 05/29/2023 Start: 10-28-2022 End: 05-29-2023 Mri pelvis w/o & w/contrast material MRI PELVIS WO/W IVCON Radiology Routine History of tumor Expected: 10/28/2022, Expires: 05/29/2023 [facility] Work Phone: Comment on above: Expected: 10/28/2022 , Expires: 05/29/2023 Start: 10-26-2022 End: 12-26-2022 CBC W Auto Differential panel - Blood ABS GRAN CT + CBC Lab Routine History of tumor Expected: 10/26/2022 (Approximate), Expires: 12/26/2022 [facility] Work Phone: Comment on above: Expected: 10/26/2022 (Approximate), Expires: 12/26/2022 Start: 10-26-2022 End: 12-26-2022 Comprehensive metabolic 2000 panel - Serum or Plasma COMP METABOLIC PANEL Lab Routine History of tumor Expected: 10/26/2022 (Approximate), Expires: 12/26/2022 [facility] Work Phone: Comment on above: Expected: 10/26/2022 (Approximate), Expires: 12/26/2022 Start: 07-20-2022 DEPRESSION ASSESSMENT DEPRESSION ASS ESSMENT [facility] Start: 03-20-2022 Influenza vaccination [facility] Start: 09-12-2021 COVID-19 VACCINE (3 - Booster for Pfizer series) COVID-19 VACCINE (3 - Booster for Pfizer series) [facility] Start: 07-20-2021 DEPRESSION ASSESSMENT DEPRESSION ASS [facility] Start: 06-07-2021 COVID-19 VACCINE (3 - Booster for Pfizer series) COVID-19 VACCINE (3 - Booster for Pfizer series) [facility] Start: 06-07-2021 COVID-19 VACCINE (3 - Pfizer series) COVID-19 VACCINE (3 - Pfizer series) [facility] Start: 03-15-2020 Urine microalbumin profile DTaP,Tdap,Td Vaccine (2 - Tdap) [facility] Start: 2014 HPV TESTING HPV TESTING [facility] Start: 2005 PAP TESTING PAP TESTING [facility] Start: 2003 Urine microalbumin profile DTAP,TDAP,TD (1 - Tdap) [facility] Start: 2002 HEPATITIS C SCREENING HEPATITIS C SC REENING [facility] Start: 2002 HIV SCREENING HIV SCREENING [facility] Start: 1996 Adult depression screening assessment DEPRESSION SCREENING [facility] Start: 1984 HEPATITIS B (1 of 3 - 3-dose series) HEPATITIS B (1 of 3 - 3-dose series) [facility] Start: 1984 Hepatitis B Vaccine (1 of 3 - 3-dose series) Hepatitis B Vaccine (1 of 3 - 3-dose series) [facility] End: 04-21-2022 Mri abdomen w/o & w/contrast material [facility] Work Phone: Comment on above: 1 Occurrences starti ng 04/21/2022 until 04/21/2022 End: 04-21-2022 Mri pelvis w/o & w/contrast material [facility] Work Phone: Comment on above: 1 Occurrences starti ng 04/21/2022 until 04/21/[facility] Immunization Date Immunization Notes Care Provider Fa cility 04-12-2021 COVID-19 Vaccine Pfi zer - Documentation Purposes Only Shaun Valentine Other [employer] Other 03-22-2021 COVID-19 Vaccine Pfi zer - Documentation Purposes Only Shaun Valentine Other [employer] Other 06-09-2019 influenza virus vaccine, unspecified formulation Mri (I-Stat/1.5t) [facility] Payers Date Payer Category Payer Private Health Insurance [employer] A ETNA CHOICE POS II [id number] 2015-Present [phone] [address] [place] [address] POS [id number] 2015 Private Health Insurance [id number] 1984 Unknown [id number] 1984 Unknown [id number] [id number] .9 1984 Unknown [id number] [id number] .9 1984 Unknown [id number] .9 1984 Unknown [id number] [id number] .9 1984 Unknown [id number] .1259 1984 Unknown [id number] [id number] .9 1984 Unknown [id number] .1259 1984 Unknown [id number] [id number] .9 1984 Unknown [id number] .1259 1959 Private Health Insurance [id number] Private Health Insurance [id number] Social History Date Type Detail Facility Start: [facility] Start: 02-14-2021 Tobacco use and exposure Smoke less tobacco non-user [facility] Start: 1985 Sex Assigned At Female [facility] Start: 01-15-2021 End: 04-28-2022 Exposure to SARS-CoV-2 (event) Not sure [facility] Start: 02-14-2021 End: 05-07-2021 Sex Assigned At [facility] Start: 02-14-2021 End: 05-07-2021 History of Social function [facility] Adult Depression Screening Assessment 0 [facility] Start: 02-26-2021 Gender identity Identifies as female gender (finding) [facility] Start: 03-27-2021 Sexual orientation Heterosexual (fin ding) [facility] Clinical Notes 02-28-2021 to 10-10-2022 Note Date & Type Note Facility 10-10-2022 Evaluation note Encounter Date Diagnosis Assessment Notes Sep, Wellness examination (ICD-10 - Z00.00) Sep, Hair thinning (ICD-10 - L65.9) Check H/H and TSH Not scarring [employer] Other 10-11-2022 History of Present illness Narrative* [...] Hematology and Medical Oncology [facility] Nurse Note* Aliya Jean Baptiste RN - 04/28/2022 3:43 PM EDT Additional intake questions: Has the patient had fever, nausea, vomiting, diarrhea, constipation, fatigue for > 1 week? No Does the patient have a decreased appetite? No Does patient want to see a Industrial Manufacturing Technician? No (yes to any of above refer patient to schedulers for dietitian appointment) ) Does patient have any new or increased numbness or tingling of extremities? No Is patient interested in fertility information? No Does patient need any prescription refills? No Does patient have an advanced directive in place? No, Patient referred to [facility] Electronically Signed By: Aliya Jean Baptiste RN documented in this encounterOhio [facility]10-03-2022 NoteHNO ID: [id number] Author: Erin Garcia RN Service: ? Author [...] Pineda DATE: April 21, 2022 TIME: 5:35 [facility]10-03-2022 NoteHNO ID: [id number] Author: RT Toby(R) Service: Radiology Author Type: [...] BY: RT Toby(R) April 21, 2022 6:08 [facility]10-03-2022 History of Present illness Narrative* Erin Garcia [...] 21, 2022 6:08 PM documented in this encounterOhio [facility]04-13-2022 Miscellaneous Notes* Telephone Encounter - Brittany Avendaño [facility] - 10/30/2021 3:24 PM EDT Patient calling stating she has not received a call back, Please call @ [phone] * Telephone Encounter - Brittany Avendaño [facility] - 10/28/2021 10:02 AM EDT Oscar Pineda is calling Melani Russell MD today regarding Care Coordination,calling with questions about with her condition. Patient has been identified by name and birthdate. Duration of symptoms: N/A Requesting response back: call on cell [phone] (home) [phone] (cell) Brittany Avendaño [facility] October 28, 2021 documented in this encounterOhio [facility]03-11-2022 NoteHNO ID: [id number] Author: Melani Russell MD Service: ? Author Type: Physician Type: Progress Notes Filed: 10/07/2021 12:24 PM Note Text: [facility] ESTABLISHED PATIENT VISIT PATIENT NAME: Oscar Pineda [...] Melani Pérez MD Internal Medicine Resident, PGY-1 [facility] 09/27/2021 SOLID TUMOR STAFF: ATTENDING PHYSICIAN [...] Russell MD, PhD Staff, Hematology and Medical Oncology[facility]2022 Note HNO ID: [id number] Author: Shannan Ansari, RT(R) Service: Radiology Author Type: Technologist Type: [...] Eduardo(R) September 20, 2021 4:17 [facility]03-04-2022 NoteHNO ID: [id number] Author: Ronda Arora Service: ? Author Type: [...] September 20, 2021 TIME: 3:22 [facility]10-18-2021 NoteHNO ID: [id number] Author: LANETTE De Leon Service: ? Author Type: Genetic Counselor Type: Progress Notes Filed: 05/24/2021 11:18 AM Note Text: [facility] Consultation Note Genetic Counselor: Melida Quintero MS, [facility] Patient: Oscar Pineda Patient Name and confirmed at initiation of visit Visit was done virtually via Zoom Portions of the visit were done by genetic counseling post graduate intern Suzanna Fishman under my supervision HIGH [...] unknown descent and paternal ancestors are of Cymro and Citizen Of The [place] descent. There is no Ashkenazi Yazidi ancestry. The patient had limited information about [...] that the patient's genetic (more content not included)...[facility]10-12-2021 NoteHNO ID: [id number] Author: Katty Logan APRN.NGUYEN Service: Critical Care Author Type: Nurse [...] the A/P section below. Please refer to [employer] for list of inpatient medications. VITAL SIGNS: [...] room air today KIMBER (more content not included)...[facility]10-11-2021 NoteHNO ID: [id number] Author: Kayce Wagner MD Service: Radiology Author [...] her to go home. Kayce Wagner MD [phone] [facility]ty [facility] [place]10-[facility]-2021 NoteHNO ID: [id number] Author: Marva Stiles APRN.ENVIRONMENTAL DIRECTOR Service: Critical Care Author Type: Nurse Practitioner [...] Completed decadron -> transitioned to medrol. Consulted [facility] for transfer of service. Addendum @ 1115: pt to remain in SICU, [facility] does not feel comfortable accepting pt given supplemental O2 needs and < 24 hrs since extubation. Objective MEDICATIONS: Current medications and allergies reviewed. Recommended/planned medication changes discussed in detail in the A/P section below. Please refer to [employer] for list of inpatient medications. 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 Pt suffered iatrogenic air embolism to [...] April 29, 2021 TIME: 8:45 AM PAGER/CONTACT #:[facility]10-10-2021 NoteHNO ID: [id number] Author: Sara Guzman APRN.ENVIRONMENTAL DIRECTOR Service: Critical Care Author Type: Nurse Practitioner [...] the A/P section below. Please refer to [employer] for list of inpatient medications. VITAL SIGNS: [...] Is Patient Clinically Ready to Transfer to [facility] or SDU?: No Discharge Planning: To be [...] Current Assessment AND Pl (more content not included)...[facility]10-10-2021 NoteHNO ID: [id number] Author: Jose M Cedillo MD Service: Interventional [...] who presented for cryoablation on 04/26 with [facility] [place]. Pt suffered iatrogenic air embolism to [...] April 29, 2021 TIME: 8:34 AM PAGER/CONTACT #:[facility]10-09-2021 NoteHNO ID: [id number] Author: RT Agus(R) Service: Radiology Author Type: [...] RD, RVT, Wallace April 27, 2021 12:23 [facility]10-09-2021 History of Past illness Narrative* [...] of this encounter (statuses as of 11/01/2021) [facility]10-09-2021 History of Past illness Narrative* [...] of this encounter (statuses as of 11/19/2021) [facility]10-09-2021 History of Past illness Narrative* [...] of this encounter (statuses as of 04/22/2022) [facility]10-09-2021 History of Past illness Narrative* [...] of this encounter (statuses as of 04/29/2022) [facility]10-09-2021 History of Past illness Narrative* [...] of this encounter (statuses as of 02/25/2023) [facility]10-09-2021 NoteHNO ID: [id number] Author: Anila Wise APRN.CNP Service: Critical Care Author Type: Nurse [...] Is Patient Clinically Ready to Transfer to [facility] or SDU?: No Discharge Planning: To be [...] Pulmonary Acute respiratory insufficie (more content not included)...[facility]10-09-2021 NoteHNO ID: [id number] Author: Jose M Cedillo MD Service: Interventional [...] to look for air in the [facility]2021 NoteHNO ID: [id number] Author: Interface Note Service: ? Author Type: ? Type: Progress Notes Filed: 04/27/2021 2:51 AM Note Text: Epic Scheduled Downtime: 04/27/2021 1:00:00 AM to 04/27/2021 2:33:00 [facility]10-08-2021 NoteHNO ID: [id number] Author: Marva Stiles APRN.CNP Service: Critical Care [...] Is Patient Clinically Ready to Transfer to [facility] or SDU?: No Discharge Planning: To be [...] 1245 vte pharmacologic prophyl (more content not included)...[facility]10-08-2021 NoteHNO ID: [id number] Author: Galdino Gaona DO Service: Critical Care Author Type: Fellow Type: Procedures Filed: 04/26/2021 4:34 PM Note Text: BEDSIDE PROCEDURE NOTE CENTRAL LINE INSERTION Date/Start Time: 04/26/2021 4:33 PM Performed by: Galdino Gaona DO Authorized by: Polly Reyna MD Informed Consent Consent Obtained: Written Ashley Protocol A moment to CARE was completed. [...] was applied following the usual aseptic technique. [facility] Central Line Insertion Checklist, attached [...] Pineda DATE: April 26, 2021 TIME: 4:32 [facility]10-08-2021 NoteHNO ID: [id number] Author: Polly Reyna MD Service: Critical Care [...] MD SICU Staff. 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 Intra-abdominal and pelvic swelling, mass and lump, unspecified site Abdominal mass, unspecified abdominal location documented in this encounter [facility] note* Diagnosis History of tumor- Primary Personal history of other specified diseases documented in this encounter [facility] noteNo InformationNortLehigh [facility] InNetwork Other History general Narrative - Reported* Type Description Date Medical History Fatigue Medical History Gall bladder polyp Medical History Atopic dermatitis, mild Medical History DESMOID FIBROMATOSIS Surgical History C section x 3 Surgical History wisdom teeth Surgical History RIGHT ABDOMINAL WALL MASS Hospitalization History see above [facility] InNetwork Other Advance Directives No Advanced Directives Records FoundDocuments on File Type Date Recorded 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 Advance Directive(s) 04/10/2021 12:55 PM Advance Directive(s) 03/07/2021 6:15 PM Reason for Referral Specialty Diagnoses / Procedures Referred By Katie t Referred To Contact MR IMAGING Diagnoses Desmoid Abdominal mass, unspecified abdominal location Procedures MRI PELVIS WO/W IVCON MRI PELVIS W/O & W/CONTRAST MATERIAL Melani Russell MD [address] [place], [place] [id number] Mr Imaging Referral ID Status Reason Start Date Expiration Date V isits Requested Visits Authorized [id number] Closed Auto-Generate d Referral 03/30/2022 10/27/2022 1 1 Specialty Diagnoses / Procedures Referred By Jannaac t Referred To Contact MR IMAGING Diagnoses Desmoid Intra-abdominal and pelvic swelling, mass and lump, unspecified site Procedures MRI ABDOMEN WO/W IVCON MRI ABDOMEN W/O & W/CONTRAST MATERIAL Melani Russell MD [address] [place], [place] [address] Mr Imaging Referral ID Status Reason Start Date Expiration Date V isits Requested Visits Authorized [id number] Closed Auto-Generate d Referral 03/30/2022 10/27/2022 1 1 Specialty Diagnoses / Procedures Referred By Jannaac t Referred To Contact MR IMAGING Diagnoses History of tumor Procedures MRI PELVIS WO/W IVCON MRI PELVIS W/O & [place] [address] [place] [address] Mr Imaging Referral ID Status Reason Start Date Expiration Date Visits Requested Visits Authorized [id number] Pending Review Auto-Generat ed Referral 10/28/2022 05/29/2023 1 1 Specialty Diagnoses / Procedures Referred By Contac kartik Referred To Contact MR IMAGING Diagnoses History of tumor Procedures MRI ABDOMEN WO/W IVCON MRI ABDOMEN W/O & [place] [address] [place] [address] Mr Imaging Referral ID Status Reason Start Date Expiration Date Visits Requested Visits Authorized [id number] Pending Review Auto-Generat ed Referral 10/28/2022 05/29/2023 [...] or prosecute any alcohol or drug abuse patient.[facility] the event this information is protected by the Federal Confidentiality of Alcohol and Drug Abuse Patient Records regulations: The Federal rules restrict any use of the information to criminally investigate or prosecute any alcohol or drug abuse patient.[facility] Center[facility] the event this information is protected by the Federal Confidentiality of Alcohol and Drug Abuse Patient Records regulations: The Federal rules restrict any use of the information to criminally investigate or prosecute any alcohol or drug abuse patient.[facility] Center[facility] the event this information is protected by the Federal Confidentiality of Alcohol and Drug Abuse Patient Records regulations: The Federal rules restrict any use of the information to criminally investigate or prosecute any alcohol or drug abuse patient.[facility] CenterIn the event this information is protected by the Federal Confidentiality of Alcohol and Drug Abuse Patient Records regulations: The Federal rules restrict any use of the information to criminally investigate or prosecute any alcohol or drug abuse patient.[facility] Center[facility] the event this information is protected by the Federal Confidentiality of Alcohol and Drug Abuse Patient Records regulations: The Federal rules restrict any use of the information to criminally investigate or prosecute any alcohol or drug abuse patient.[facility] Reason for Visit (unrecogniz ed section and content) Reason Comments Care Coordination Reason Comments Radiology MRI Specialty Diagnoses / Procedures Referred By Contac t Referred To Contact MR IMAGING Diagnoses Desmoid Intra-abdominal and pelvic swelling, mass and lump, unspecified site Procedures MRI ABDOMEN WO/W IVCON MRI ABDOMEN W/O & W/[place] [address] [place] [id number] Mr Imaging Referral ID Status Reason Start Date Expiration Date V isits Requested Visits Authorized [id number] Closed Auto-Generate d Referral 03/30/2022 10/27/2022 1 1 Reason Comments Established Patient Reason Comments Radiology MRI Specialty Diagnoses / Procedures Referred By Contac t Referred To Contact MR IMAGING Diagnoses Intra-abdominal and pelvic swelling, mass and lump, unspecified site Procedures MRI ABDOMEN WO/W IVCON MRI,ABDOMEN,W&WO Cortez Dubois MD [address] [place] [address] [place] [address] Referral ID Status Reason Start Date Expiration Date V isits Requested Visits Authorized [id number] Closed Auto-Generate d Referral 02/14/2021 03/16/2022 1 1 Care Teams (unrecognized sec tion and content) Coal Screener Relationship Specialty [place] [address] [place] [id number] Physician Hematology/Oncology 05/20/21 Chey Tamayo, JOSE [address] [place], [place] [address] Specialty Deposition Reporter Oncology 05/20/21 Coal Screener Relationship Specialty Start Date [place] Melani Russell [place] [id number] [place], [place] [phone] Physician Hematology/Oncology 05/20/21 Claritza Tamayo RN [address] [place] [id number] Specialty Deposition Reporter Oncology 05/20/21 Coal Screener Relationship Specialty Start Date End Date Melani Russell MD [address] [place] [address] Physician Hematology/Oncology 05/20/21 Claritza Tamayo RN [address] [place] [address] Specialty Deposition Reporter Oncology 05/20/21 Coal Screener Relationship Specialty Start Date End Date Melani Russell MD [address] [place] [address] Physician Hematology/Oncology 05/20/21 Claritza Tamayo RN [address] [place] [address] Specialty Deposition Reporter Oncology 05/20/21 Coal Screener Relationship Specialty Start Date End Date Melani Russell MD [address] [place] [address] Physician Hematology/Oncology 05/20/21 Suzanna Chaidez RN [address] [place] [phone] Specialty Deposition Reporter Hematology/Oncology 06/10/22 INFORMATION SOURCE (unrecogn ized section and content) DATE CREATED AUTHOR 04/23/2022 [facility] DATE CREATED AUTHOR AUTHOR'S ORGANIZ ATION 11/02/2022 [facility] DATE CREATED AUTHOR AUTHOR'S ORGANIZ ATION 10/06/2023 [facility] Special[facility] EPIC FOR RECORDS PERTAINING TO PATIENTS WHO [...] BE BASED ON THE PRIMARY CLINICAL RECORDS. [facility] [facility]. provides no warranty or guarantee of the accuracy or completeness of information in this document.
--- NOTE | 2023-10-09 14:57 | US_ITS ---
[address] [address] Patient Name: OSCAR MELO MRN: [facility]:[id number] date: 1985 Sex: F Assigned Patient Location: [facility] Current Patient Location: Accession/Order Number: [id number] Exam Date: 10/09/2023 15:00 Report Date: 10/12/2023 06:59 At the request of: SUKHJINDER WIN Procedure: US OB BPP w non-stress EXAMINATION: US OB BPP w non-stress HISTORY: Excessive growth COMPARISON: 10/02/2023 TECHNIQUE: Ultrasound biophysical profile was performed in the radiology department. FINDINGS: BREATHING MOVEMENTS: 2.0 GROSS BODY MOVEMENTS: 2.0 TONE: 2.0 QUALITATIVE AMNIOTIC FLUID VOLUME: 2.0 PRESENTATION: CEPHALIC HEART RATE: 129.8 bpm H.B./min AMNIOTIC FLUID VOLUME: 10.7 cm cm GESTATIONAL AGE: 38 weeks 0 days CONCLUSION: Total biophysical profile score: 8.0 Electronically authenticated by: SISI HURD Date: 10/12/2023 06:59
[2023-10-09 15:24] VITALS: BP 127/71; PULSE 72
== END 2023-10-09 15:53 | disposition home or self-care (01) ==
LOC: US 09:22 → FBC 15:03
PROVIDERS: PCP Internal Medicine; Visit Provider Obstetrics & Gynecology
DX: O36.60X0 Maternal care for excessive fetal growth, unspecified trimester, not applicable or unspecified (principal); Z3A.38 38 weeks gestation of pregnancy
CPT/HCPCS: 76818

== ENCOUNTER 2023-10-13 07:17 | Outpatient (OUT) | payer OTHER, SELFPAY ==
--- OUTSIDE RECORDS SUMMARY | 2023-10-13 07:21 | XMS_ITS | CCD ---
Author Organization [facility] Care Team Providers Care Tin Plater Name Role Phone Drew JAMES, Melani Unavailable Yariel GRACIA, Chey Unavailable [phone] Yariel GARCIA, Claritza Andrade Unavailable [phone] Drew JAMES, Melani Unavailable Yariel GARCIA, Claritza Andrade Unavailable [phone] ALEX URBANO Referring Unavailable ALTAHAWI, FAYSMARIELLA Attending [...] Translations: [CODEINE] Drug Allergy 1 GI Upset [place] (7 sources) Adhesive Tape-Silicones; Translations: [ADHESIVE TAPE-SILICONES] Drug Allergy 1 Other: See Comments [place] (2 sources) Adhesive agent Drug allergy Unknown [email or web address] Other (2 sources) Codeine Drug Allergy nausea [email or web address] Other (1 source) Codeine Drug Allergy 1 [facility] (1 source) Desonide Drug Allergy 1 [facility] Medications Current Medications Medication Drug [...] 10-27-2022 BASO # 0.1 103/ul Normal 0.0-0.1 [facility] Comment on above: Performed By: #### C BC #### [facility] [address] [address] [address] Rancho Cobos Basophils/100 WBC (Bld) 0.9 % Normal 0.2-2.0 [facility] Comment on above: Performed By: #### C BC #### [facility] [address] [place] [address] Dr. Rancho Cobos EO # 0.1 103/ul Normal 0.0-0.7 [facility] Comment on above: Performed By: #### C BC #### [facility] [address] [address] [address] Rancho Cobos Eosinophils/100 WBC (Bld) 1.4 % Normal 0.9-7.0 [facility] Comment on above: Performed By: #### C BC #### [facility] [address] [place] [address] Dr. Rancho Cobos Erythrocyte distribution width (RBC) [Ratio] 11.8 % Normal 11.0-15.0 [facility] Comment on above: Performed By: #### C BC #### [facility] [address] [place] [address] Dr. Rancho Cobos Hematocrit (Bld) [Volume fraction] 38.5 % Normal 36.0-48.0 [facility] Comment on above: Performed By: #### C BC #### [facility] [address] [place] [address] Dr. Rancho Cobos Hemoglobin (Bld) [Mass/Vol] 13.3 g/dL Normal 12.0-16.0 [facility] Comment on above: Performed By: #### C BC #### [facility] [address] [place] [address] Dr. Rancho Cobos IG # 0.01 10e3/ul Normal 0.00-0.03 [facility] Comment on above: Performed By: #### C BC #### [facility] [address] [place] [address] Dr. Rancho Cobos IG % 0.2 % Normal 0.0-0.5 [facility] Comment on above: Performed By: #### C BC #### [facility] [address] [place] [address] Dr. Rancho Cobos LYMPH # 1.7 103/ul Normal 1.2-3.8 [facility] Comment on above: Performed By: #### C BC #### [facility] [address] [place] [address] Dr. Rancho Cobos Lymphocytes/100 WBC (Bld) 31.2 % Normal 20.5-60.0 [facility] Comment on above: Performed By: #### C BC #### [facility] [address] [place] [address] Dr. Rancho Cobos MANUAL DIFF REQ NO Normal [facility] Comment on above: Performed By: #### C BC #### [facility] [address] [place] [address] Dr. Rancho Cobos MCH (RBC) [Entitic mass] 31.9 pg Normal 26.7-34.0 [facility] Comment on above: Performed By: #### C BC #### [facility] [address] [place] [address] Dr. Rancho Cobos MCHC (RBC) [Mass/Vol] 34.5 g/dL Normal 29.9-35.2 [facility] Comment on above: Performed By: #### C BC #### [facility] [address] [place] [address] Dr. Rancho Cobos MCV (RBC) [Entitic vol] 92.3 fL Normal 81.0-99.0 [facility] Comment on above: Performed By: #### C BC #### [facility] [address] [address] [address] Rancho Cobos MONO # 0.3 103/ul Normal 0.3-0.8 [facility] Comment on above: Performed By: #### C BC #### [facility] [address] [address] [address] Rancho Cobos Monocytes/100 WBC (Bld) 5.2 % Normal 1.7-12.0 [facility] Comment on above: Performed By: #### C BC #### [facility] [address] [place] [address] Dr. Rancho Cobos NEUT # 3.4 103/ul Normal 1.4-6.5 [facility] Comment on above: Performed By: #### C BC #### [facility] [address] [place] [address] Dr. Rancho Cobos Neutrophils/100 WBC (Bld) 61.1 % Normal 43.0-75.0 [facility] Comment on above: Performed By: #### C BC #### [facility] [address] [place] [address] Dr. Rancho Cobos Platelet mean volume (Bld) [Entitic vol] 9.4 fL Critically low 9.5-13.5 [facility] Comment on above: Performed By: #### C BC #### [facility] [address] [place] [address] Dr. Rancho Cobos PLT 261 103/ul Normal 150-450 [facility] Comment on above: Performed By: #### C BC #### [facility] [address] [address] [address] Rancho Cobos RBC 4.17 106/ul Critically low 4.20-5.40 [facility] Comment on above: Performed By: #### C BC #### [facility] [address] [place] [address] Dr. Rancho Cobos WBC 5.6 103/ul Normal 4.0-11.0 [facility] Comment on above: Performed By: #### C BC #### [facility] [address] [place] [address] Dr. Rancho Cobos LIPID PROFILEon 10-27-2022 CHOL-HDL RATIO NORM SEE BELOW Normal [facility] Comment on above: Result Comment: 3.3 - 4.4 LOW RISK 4.4 - 7.1 AVERAGE RISK 7.1 - 11.0 MODERATE RISK >11.0 HIGH RISK Performed By: #### C MP, LIPID, TSH #### [facility] [address] [address] [address] Rancho Cobos Cholesterol [Mass/Vol] 162 mg/dL Normal <=200 [facility] Comment on above: Performed By: #### C MP, LIPID, TSH #### [facility] [address] [address] [address] Rancho Cobos Cholesterol in HDL [Mass/Vol] 56 mg/dL Normal 40-60 [facility] Comment on above: Performed By: #### C MP, LIPID, TSH #### [facility] [address] [address] [address] Rancho Cobos Cholesterol in LDL [Mass/Vol] 97.0 mg/dL Normal [facility] Comment on above: Performed By: #### C MP, LIPID, TSH #### [facility] [address] [address] [address] Rancho Cobos Cholesterol.total/ Cholesterol in HDL [Mass ratio] 2.9 {ratio} Normal [facility] Comment on above: Performed By: #### C MP, LIPID, TSH #### [facility] [address] [address] [address] Rancho Cobos HDL NORMAL > or = 60 mg/dl - LO W CARDIOVASCULAR RISK <40 mg/dl - HIGH CARDIOVASCULAR RISK Normal [facility] Comment on above: Performed By: #### C MP, LIPID, TSH #### [facility] [address] [address] [address] Rancho Cobos LDL CALC NORMAL SEE BELOW Normal [facility] Comment on above: Result Comment: <100 mg/dl OPTIMAL 100 - 129 mg/dl NEAR OR ABOVE OPTIMAL 130 - 159 mg/dl BORDERLINE HIGH 160 - 189 mg/dl HIGH >190 mg/dl VERY HIGH Performed By: #### C MP, LIPID, TSH #### [facility] [address] [address] [address] Rancho Cobos Triglyceride [Mass/Vol] 45 mg/dL Normal <=150 [facility] Comment on above: Performed By: #### C MP, LIPID, TSH #### [facility] [address] [place] [address] Dr. Rancho Cobos VLDL CALC 9.0 mg/dL Normal [facility] Comment on above: Performed By: #### C MP, LIPID, TSH #### [facility] [address] [address] [address] Rancho Cobos PROF 14(COMP METB)on 023 Albumin [Mass/Vol] 4.0 g/dL Normal 3.4-5.0 [facility] Comment on above: Performed By: #### C MP, LIPID, TSH #### [facility] [address] [place] [address] Dr. Rancho Cobos Albumin/Globulin [Mass ratio] 1.2 {ratio} Normal [facility] Comment on above: Performed By: #### C MP, LIPID, TSH #### [facility] [address] [place] [address] Dr. Rancho Cobos ALP [Catalytic activity/Vol] 34 U/L Critically low 46-116 [facility] Comment on above: Performed By: #### C MP, LIPID, TSH #### [facility] [address] [place] [address] Dr. Rancho Cobos ALT [Catalytic activity/Vol] 24 U/L Normal 14-59 [facility] Comment on above: Performed By: #### C MP, LIPID, TSH #### [facility] [address] [place] [address] Dr. Rancho Cobos Anion gap [Moles/Vol] 12.1 mmol/L Normal [facility] Comment on above: Performed By: #### C MP, LIPID, TSH #### [facility] [address] [place] [address] Dr. Rancho Cobos AST [Catalytic activity/Vol] 17 U/L Normal 15-37 [facility] Comment on above: Performed By: #### C MP, LIPID, TSH #### [facility] [address] [address] [address] Rancho Cobos Bilirubin [Mass/Vol] 0.5 mg/dL Normal 0.2-1.0 [facility] Comment on above: Performed By: #### C MP, LIPID, TSH #### [facility] [address] [address] [address] Rancho Cobos Calcium [Mass/Vol] 9.2 mg/dL Normal 8.5-10.1 [facility] Comment on above: Performed By: #### C MP, LIPID, TSH #### [facility] [address] [address] [address] Rancho Cobos Chloride [Moles/Vol] 107 mmol/L Normal 98-107 [facility] Comment on above: Performed By: #### C MP, LIPID, TSH #### [facility] [address] [place] [address] Dr. Rancho Cobos CO2 [Moles/Vol] 28.5 mmol/L Normal 21.0-32.0 [facility] Comment on above: Performed By: #### C MP, LIPID, TSH #### [facility] [address] [place] [address] Dr. Rancho Cobos Creatinine [Mass/Vol] 0.72 mg/dL Normal 0.55-1.02 [facility] Comment on above: Performed By: #### C MP, LIPID, TSH #### [facility] [address] [place] [address] Dr. Rancho Cobos EGFR-AF MAURITIAN >60 Normal >=60 [facility] Comment on above: Performed By: #### C MP, LIPID, TSH #### [facility] [address] [place] [address] Dr. Rancho Cobos EGFR-NON AF MAURITIAN >60 Normal >=60 [facility] Comment on above: Performed By: #### C MP, LIPID, TSH #### [facility] [address] [place] [address] Dr. Rancho Cobos Globulin (S) [Mass/Vol] 3.4 g/dL Normal [facility] Comment on above: Performed By: #### C MP, LIPID, TSH #### [facility] [address] [place] [address] Dr. Rancho Cobos Glucose [Mass/Vol] 92 mg/dL Normal 74-106 [facility] Comment on above: Performed By: #### C MP, LIPID, TSH #### [facility] [address] [place] [address] Dr. Rancho Cobos Potassium [Moles/Vol] 4.6 mmol/L Normal 3.5-5.1 [facility] Comment on above: Performed By: #### C MP, LIPID, TSH #### [facility] [address] [place] [address] Dr. Rancho Cobos Protein [Mass/Vol] 7.4 g/dL Normal 6.4-8.2 [facility] Comment on above: Performed By: #### C MP, LIPID, TSH #### [facility] [address] [place] [address] Dr. Rancho Cobos Sodium [Moles/Vol] 143 mmol/L Normal 136-145 [facility] Comment on above: Performed By: #### C MP, LIPID, TSH #### [facility] [address] [place] [address] Dr. Rancho Cobos Urea nitrogen [Mass/Vol] 18.0 mg/dL Normal 7.0-18.0 [facility] Comment on above: Performed By: #### C MP, LIPID, TSH #### [facility] [address] [place] [address] Dr. Rancho Cobos Urea nitrogen/Creatinin e [Mass ratio] 25.0 mg/mg Normal [facility] Comment on above: Performed By: #### C MP, LIPID, TSH #### [facility] [address] [place] [address] Dr. Rancho Cobos TSHon 10-27-2022 TSH 1.005 uIU/mL Normal 0.358-3.740 [facility] Comment on above: Performed By: #### C MP, LIPID, TSH #### [facility] [address] [place] [address] Dr. Rancho Cobos MRI ABDOMEN WO/W IVCONon [...] suspicious marrow signal abnormality. Lower chest: Unremarkable. Dispatcher Motor Vehicle (localizer) images: No additional findings. IMPRESSION: Evolving changes of RIGHT rectus abdominis muscle ablation without local recurrence. No metastatic disease in abdomen or pelvis Hand Grinder: ANEL Transcribe Date/Time: Apr 22 2022 10:29A Dictated by : LIBRADO JOAQUIN DO This examination was interpreted and the report reviewed and electronically signed by: CANELO EDMONDSON MD on Apr 22 2022 12:49PM EST [id number] Normal [facility] MRI PELVIS WO/W IVCONon 10-0 MRI [...] suspicious marrow signal abnormality. Lower chest: Unremarkable. Dispatcher Motor Vehicle (localizer) images: No additional findings. IMPRESSION: Evolving changes of RIGHT rectus abdominis muscle ablation without local recurrence. No metastatic disease in abdomen or pelvis Hand Grinder: ANEL Transcribe Date/Time: Apr 22 2022 10:29A Dictated by : LIBRADO JOAQUIN, DO This examination was interpreted and the report reviewed and electronically signed by: CANELO EDMONDSON MD on Apr 22 2022 12:49PM EST [id number] Normal [facility] 10-28-2021 CNPN Telephone (HEMCA3) OSCAR PINEDA ([id number]) 1985 F Date Time Provider Department 10/28/21 MELANI RUSSELL HEMCA3 During your visit today, we recorded the following information about you: Brittany Avendaño ADM 10/28/2021 10:04 AM Signed Oscar Pineda is calling Melani Russell MD today regarding Care Coordination,calling with questions about with her condition. Patient has been identified by name and birthdate. Duration of symptoms: N/A Requesting response back: call on cell [phone] (home) [phone] (cell) Brittany Avendaño ADM October 28, 2021 Brittany Banueloss [facility] 10/30/2021 3:25 PM Signed Patient calling stating she has not received a call back, Please call @ [phone] Melani Russell MD 11/19/2021 10:20 AM Signed This has been addressed through an Plain Vanilla message. Melani Russell MD, PhD Staff, Hematology and Medical Oncology Allergies As of Date: 10/28/2021 Noted Allergy Reaction CODEINE 02/01/2021 8 - GI Upset ADHESIVE TAPE-SILICONES 02/14/2021 14 - Other: See Comments Comments: Blisters Date Reviewed: 09/27/2021 Reviewed by: Aliya Jean Baptiste RN - Fully Assessed Reason for Visit: Care Coordination [8240] Prescriptions as of 11/19/2021 - sulindac (CLINORIL) [...] Status:Closed by BRITTANY LIAO on 11/01/21 Normal [facility] CNOVSPon 09-27-2021 CNOVSP Visit (SP) Office (HEMCA4) SARAVANANOSCAR GRACE ([id number]) 1985 F Date Time Provider Department 09/27/21 [...] Melani Pérez MD Internal Medicine Resident, PGY-1 [facility] 09/27/2021 SOLID TUMOR STAFF: ATTENDING PHYSICIAN [...] No Does patient want to see a Cable Stretcher And Tester? No (yes to any of (more content not included)... Normal [facility] MRI ABDOMEN WO/W IVCONon MRI ABDOMEN [...] diffusion weighted and T1 weighted in- and yom-ro-lawwc images were obtained. Then, using a 3-D [...] muscle mass, without evidence for residual/recurrent disease. Hand Grinder: PSCB Transcribe Date/Time: Sep 20 2021 4:49P Dictated by : CHRIS MILIAN MD This examination was interpreted and the report reviewed and electronically signed by: CHRIS MILIAN MD on Sep 20 2021 4:58PM EST [id number] Normal [facility] MRI PELVIS WO/W IVCONon 03-0 MRI [...] diffusion weighted and T1 weighted in- and for-rg-fkxko images were obtained. Then, using a 3-D [...] muscle mass, without evidence for residual/recurrent disease. Hand Grinder: ANEL Transcribe Date/Time: Sep 20 2021 4:49P Dictated by : CHRIS MILIAN MD This examination was interpreted and the report reviewed and electronically signed by: CHRIS MILIAN MD on Sep 20 2021 4:58PM EST [id number] Normal [facility] CNPNon 08-09-2021 CNPN Telephone (HEMCA3) OSCAR PINEDA ([id number]) 1985 F Date Time Provider Department 08/09/21 [...] N/A Requesting response back: call on cell [phone] (home) [phone] (cell) Marva Gualberto Adm August 09, 2021 Chey Tamayo RN 08/09/2021 4:42 PM Signed Returned call to patient and informed her that moving her visit with Dr. Russell after the MRI would be best to establish a plan of care. Patient was appreciative of return call and information. Chey Tamayo RN Manager Relocation August 09, 2021 Allergies As of Date: 08/09/2021 Noted Allergy Reaction CODEINE 02/01/2021 8 - GI Upset ADHESIVE TAPE-SILICONES 02/14/2021 14 - Other: See Comments Comments: Blisters Date Reviewed: 04/30/2021 Reviewed by: Magda Rose RN - Fully Assessed Reason for Visit: Care Coordination [0761] Cmt: appointment question Prescriptions as of 08/09/2021 [...] Encounter Status:Closed by CLARITZA TAMAYO [facility]09[facility]GMINE[facility] OSCAR PINEDA ([id number]) 1985 F Date Time Provider Department 05/22/21 MELIDA QUINTERO During your visit today, we recorded the following information about you: LANETTE De Leon 05/22/2021 2:32 PM Signed Patient name and was confirmed at initiation of discussion. Oscar Pineda's Common Hereditary Cancers Panel through [employer] was negative for a pathogenic variant. Please [...] Encounter Status:Closed by MELIDA QUINTERO on 05/22/21 [facility] 05-15-2021 CNPN Telephone (HEMCA3) OSCAR PINEDA ([id number]) 1985 F Date Time Provider Department 05/15/21 [...] N/A Requesting response back: call on cell [phone] (home) [phone] (cell) Marva Burciaga Adm May 15, 2021 [...] Status:Closed by MELANI RUSSELL on 05/17/21 Normal [facility] Molecular Teston 2020 Test Common Hereditary Cancers Panel Normal [facility] Comment on above: Performed By: #### M OL13 ####[facility] [id number] [place] [address] Test Results View results in Scan zahraa Documents link when available. Normal [facility] Comment on above: Performed By: #### M OL13 ####[facility] [id number] [place] [address] Nishant 05-01-2021 NGUYENN Telephone (JULIANN) OSCAR PINEDA ([id number]) 1985 F Date Time Provider Department 05/01/21 [...] questions or concerns. Mindy Farley Genetic Counselor Coating Mixer Allergies As of Date: 05/01/2021 Noted Allergy [...] Status:Closed by MINDY FARLEY on 05/01/21 Normal [facility] CBCon 04-30-2021 Absolute nRBC <0.01 Normal <0.01 [facility] Comment on above: Performed By: #### C BC ####[place] [address] [place], [place] [phone] Erythrocyte distribution width (RBC) [Ratio] 12.0 % Normal 11.5-15.0 [facility] Comment on above: Performed By: #### C BC ####[place] [address] [place], [place] [phone] Hematocrit (Bld) [Volume fraction] 33.8 % Low 36.0-46.0 [facility] Comment on above: Performed By: #### C BC ####[place] [address] [address] [place], [place] [phone] Hemoglobin (Bld) [Mass/Vol] 11.8 g/dL Normal 11.5-15.5 [facility] Comment on above: Performed By: #### C BC ####[address] [place], [place] [phone] MCH 31.5 pG Normal 26.0-34.0 [facility] Comment on above: Performed By: #### C BC ####[address] [phone] MCHC (RBC) [Mass/Vol] 34.9 g/dL Normal 30.5-36.0 [facility] Comment on above: Performed By: #### C BC ####[address] [phone] MCV (RBC) [Entitic vol] 90.1 fL Normal 80.0-100.0 [facility] Comment on above: Performed By: #### C BC ####[address] [phone] Platelet mean volume (Bld) [Entitic vol] 9.6 fL Normal 9.0-12.7 [facility] Comment on above: Performed By: #### C BC ####[address], [place] [phone] Platelets (Bld) [#/Vol] 182 10*3/uL Normal 150-400 [facility] Comment on above: Performed By: #### C BC ####[address], [place] [phone] RBC (Bld) [#/Vol] 3.75 10*6/uL Low 3.90-5.20 [facility] Comment on above: Performed By: #### C BC ####[place] [address] [place], [place] [phone] WBC (Bld) [#/Vol] 12.88 10*3/uL High 3.70-11.00 [facility] Comment on above: Performed By: #### C BC ####[place] [address] [place], [place] [phone] CNDSon 04-30-2021 CNDS HNO ID: [id number] Author: Katty Logan APRN.GUNNERY/ORDNANCE OFFICER Service: Critical Care Author Type: Nurse Practitioner [...] air KIMBER (more content not included)... Normal [facility] THERAPY NTon 04-30-2021 THERAPY NT HNO ID: [id number] Author: Licha Llanes, PT Service: Physical Therapy Author Type: Physical Therapist Type: Therapy (PT/OT/Speech/Resp) Filed: 04/30/2021 3:02 PM Note Text: Physical Therapy Treatment SERVICE DATE: 04/30/2021 SERVICE TIME: 1342 to 1351 ROOM: [place] [address] Recommended Discharge Disposition: Home Recommended Discharge Disposition [...] gait and mobility-other Interventions Provided: Gait Training (75934) Gait Training (10522) Treatment Minutes: 9 $ Gait Training (25559) Billed Units: 1 unit Training AND education provided in: Discharge planning, Energy conservation, Exercise program, Expected functional level, Falls prevention, Gait pattern, reduction of deviations, Home safe (more content not included)... Normal [facility] ALLIED HEALTHon 04-29-2021 ALLIED HEALTH HNO ID: [id number] Author: Ana Watters RN Service: Healing Service [...] 29, 2021 TIME: 8:11 AM CONTACT #: [phone] [facility] APTTon 04-29-2021 aPTT Coag (Bld) [Time] 26.4 s Normal 23.0-32.4 [facility] Comment on above: Result Comment: Unfr [...] laboratory APTT reagent in use throughout the [facility]. 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 Last discharge within 30 days: No Advance Directive: Current Advance Directive: None Strategy Lead Attempted to Assist with AD Completion: No [...] None Has the Patient Been in a Long-Term Facility in the Past 30 days?: No SOCIAL: Living Arrangements: Home Lives With: Spouse Primary Contact: Extended Emergency Contact Information Primary Emergency Contact: LAURA PINEDA Address: [address] [place] [id number] [facility] Mobile Relation: Spouse Supportive Patient Contact:: Yes Contact Resources: Family Family Name/Phone: LAURA PINEDA (Spouse) [phone] Caregiver AssessmentCaregiver is ready, willing and able [...] Mostly I feel financially burdened by my fzh-tk-tqwyat expenses for my prescription medication:: 0 - Disagree Mostly Risk Score: 0 Patient is categorized as: Low risk < 2 Med Adherance Assessement not completed due to: No BEREAVEMENT PROGRAM COORDINATOR meds Are you interested in bedside delivery of your medications? Yes Is Patient Psychosocially Complex?: No ASSESSMENT AND PLAN: Medical Needs: Medical Needs: None Psychosocial Needs: Psychosocial Needs: None FREEDOM OF CHOICE EXPLAINED: [place] of Choice Given: No Reason Not Given: No placements necessary POTENTIAL TRANSITION PLANS No Services Indicated SIGNATURE: Rocio Bear RN MSN PATIENT NAME: Oscar Pineda DATE: April 29, 2021 TIME: 11:53 AM PAGER/CONTACT #: [phone] Normal [facility] CBCon 04-29-2021 Absolute nRBC <0.01 Normal <0.01 [facility] Comment on above: Performed By: #### C BC, MG1, PHOS, PTT, CMP, PT ####[place] [address] [place], [place] [phone] Erythrocyte distribution width (RBC) [Ratio] 11.8 % Normal 11.5-15.0 [facility] Comment on above: Performed By: #### C BC, MG1, PHOS, PTT, CMP, PT ####[place] [address] [address] [place] [phone] Hematocrit (Bld) [Volume fraction] 37.0 % Normal 36.0-46.0 [facility] Comment on above: Performed By: #### C BC, MG1, PHOS, PTT, CMP, PT ####[place] [address] [address] [place] [phone] Hemoglobin (Bld) [Mass/Vol] 12.3 g/dL Normal 11.5-15.5 [facility] Comment on above: Performed By: #### C BC, MG1, PHOS, PTT, CMP, PT ####[place] [address] [address] [phone] MCH 30.9 pG Normal 26.0-34.0 [facility] Comment on above: Performed By: #### C BC, MG1, PHOS, PTT, CMP, PT ####[place] [address] [address] [phone] MCHC (RBC) [Mass/Vol] 33.2 g/dL Normal 30.5-36.0 [facility] Comment on above: Performed By: #### C BC, MG1, PHOS, PTT, CMP, PT ####[place] [address] [address] [phone] MCV (RBC) [Entitic vol] 93.0 fL Normal 80.0-100.0 [facility] Comment on above: Performed By: #### C BC, MG1, PHOS, PTT, CMP, PT ####[place] [address] [address] [phone] Platelet mean volume (Bld) [Entitic vol] 10.0 fL Normal 9.0-12.7 [facility] Comment on above: Performed By: #### C BC, MG1, PHOS, PTT, CMP, PT ####[facility], [place] [phone] Platelets (Bld) [#/Vol] 188 10*3/uL Normal 150-400 [facility] Comment on above: Performed By: #### C BC, MG1, PHOS, PTT, CMP, PT ####[place] [address] [address], [place] [phone] RBC (Bld) [#/Vol] 3.98 10*6/uL Normal 3.90-5.20 [facility] Comment on above: Performed By: #### C BC, MG1, PHOS, PTT, CMP, PT ####[place] [address] [address], [place] [phone] WBC (Bld) [#/Vol] 11.41 10*3/uL High 3.70-11.00 [facility] Comment on above: Performed By: #### C BC, MG1, PHOS, PTT, CMP, PT ####[place] [address] [address], [place] [phone] Comp Metabolic Panelon 04-29 Albumin [Mass/Vol] 3.5 g/dL Low 3.9-4.9 [facility] Comment on above: Performed By: #### C BC, MG1, PHOS, PTT, CMP, PT ####[place] [address] [address], [place] [phone] ALP [Catalytic activity/Vol] 43 U/L Normal 34-123 [facility] Comment on above: Performed By: #### C BC, MG1, PHOS, PTT, CMP, PT ####[place] [address], [place] [phone] ALT [Catalytic activity/Vol] 56 U/L High 7-38 [facility] Comment on above: Performed By: #### C BC, MG1, PHOS, PTT, CMP, PT ####[place] [address], [place] [phone] Anion gap [Moles/Vol] 14 mmol/L Normal 9-18 [facility] Comment on above: Performed By: #### C BC, MG1, PHOS, PTT, CMP, PT ####[place] [address] [address], [place] [phone] AST [Catalytic activity/Vol] 171 U/L High 13-35 [facility] Comment on above: Performed By: #### C BC, MG1, PHOS, PTT, CMP, PT ####[place] [address] [address], [place] [phone] Bilirubin [Mass/Vol] 0.6 mg/dL Normal 0.2-1.3 [facility] Comment on above: Performed By: #### C BC, MG1, PHOS, PTT, CMP, PT ####[place] [address] [address], [place] [phone] Calcium [Mass/Vol] 8.3 mg/dL Low 8.5-10.2 [facility] Comment on above: Performed By: #### C BC, MG1, PHOS, PTT, CMP, PT ####[place] [address] [address], [place] [phone] Chloride [Moles/Vol] 100 mmol/L Normal 97-105 [facility] Comment on above: Performed By: #### C BC, MG1, PHOS, PTT, CMP, PT ####[place] [address], [place] [phone] CO2 [Moles/Vol] 25 mmol/L Normal 22-30 [facility] Comment on above: Performed By: #### C BC, MG1, PHOS, PTT, CMP, PT ####[place] [address], [place] [phone] Creatinine [Mass/Vol] 0.78 mg/dL Normal 0.58-0.96 [facility] Comment on above: Performed By: #### C BC, MG1, PHOS, PTT, CMP, PT ####[facility] [place], [place] [phone] eGFR- Amer. >60 Normal [facility] Comment on above: Performed By: #### C BC, MG1, PHOS, PTT, CMP, PT ####[facility] [place], [place] [phone] eGFR-All Other Races >60 Normal [facility] Comment on above: Result Comment: eGFR [...] C BC, MG1, PHOS, PTT, CMP, PT ####[place] [address] [place], [place] [phone] Glucose [Mass/Vol] 167 mg/dL High 74-99 [facility] Comment on above: Result Comment: The [place] [employer] (ADA) provides guidance for cutoff [...] Standards of Medical Care in Diabetes 2016, [place] [employer]. Diabetes Care. 2016.39(Suppl 1). Performed By: #### C BC, MG1, PHOS, PTT, CMP, PT ####[place] [address], [place] [phone] Potassium [Moles/Vol] 3.9 mmol/L Normal 3.7-5.1 [facility] Comment on above: Performed By: #### C BC, MG1, PHOS, PTT, CMP, PT ####[address] [phone] Protein [Mass/Vol] 6.0 g/dL Low 6.3-8.0 [facility] Comment on above: Performed By: #### C BC, MG1, PHOS, PTT, CMP, PT ####[place] [phone] Sodium [Moles/Vol] 139 mmol/L Normal 136-144 [facility] Comment on above: Performed By: #### C BC, MG1, PHOS, PTT, CMP, PT ####[address], [place] [phone] Urea nitrogen [Mass/Vol] 9 mg/dL Normal 7-21 [facility] Comment on above: Performed By: #### C BC, MG1, PHOS, PTT, CMP, PT ####[address] [phone] GASV + ALLon 04-29-2021 Base Excess 4 mmol/L Normal [facility] Comment on above: Performed By: #### V ALLBG ####[address] [phone] Calcium [Moles/Vol] 1.15 mmol/L Normal 1.08-1.30 [facility] Comment on above: Performed By: #### V ALLBG ####[address] [phone] Carboxyhemoglobin, Ziyad 1.2 % Normal <2.1 [facility] Comment on above: Performed By: #### V ALLBG ####[place] [address] [place] [phone] CO2 [Moles/Vol] 31 mmol/L High 25-29 [facility] Comment on above: Performed By: #### V ALLBG ####[place] [address] [place] [phone] Glucose [Mass/Vol] 178 mg/dL High 60-105 [facility] Comment on above: Performed By: #### V ALLBG ####[place] [address] [place] [phone] HCO3 (Bld) [Moles/Vol] 29 mmol/L High 24-28 [facility] Comment on above: Performed By: #### V ALLBG ####[place] [address] [place] [phone] Lactate [Moles/Vol] 1.3 mmol/L Normal 0.5-2.2 [facility] Comment on above: Performed By: #### V ALLBG ####[place] [address] [place] [phone] Methemoglobin 0.7 % Normal <1.6 [facility] Comment on above: Performed By: #### V ALLBG ####[place] [address] [place] [phone] O2 Administered 40% Normal [facility] Comment on above: Performed By: #### V ALLBG ####[place] [address] [phone] pCO2 51 mm Hg Normal 42-55 [facility] Comment on above: Performed By: #### V ALLBG ####[place] [address] [place] [phone] pCO2, Temp Correct 51 mm Hg Normal 42-55 [facility] Comment on above: Performed By: #### V ALLBG ####[facility], [place] [phone] Potassium [Moles/Vol] 4.0 mmol/L Normal 3.5-5.0 [facility] Comment on above: Performed By: #### V ALLBG ####[place] [address], [place] [phone] Base Excess 3 mmol/L Normal [facility] Comment on above: Performed By: #### V ALLBG ####[facility], [place] [phone] Blood Gas Comm, Ziyad . Normal [facility] Comment on above: Performed By: #### V ALLBG ####[place] [address] [address], [place] [phone] Body temperature 98.6 [degF] Normal [facility] Comment on above: Performed By: #### V ALLBG ####[place] [address], [place] [phone] Calcium [Moles/Vol] 1.18 mmol/L Normal 1.08-1.30 [facility] Comment on above: Performed By: #### V ALLBG ####[place] [address], [place] [phone] Carboxyhemoglobin, Ziyad 0.9 % Normal <2.1 [facility] Comment on above: Performed By: #### V ALLBG ####[facility], [place] [phone] CO2 [Moles/Vol] 30 mmol/L High 25-29 [facility] Comment on above: Performed By: #### V ALLBG ####[place] [address], [place] [phone] Glucose [Mass/Vol] 193 mg/dL High 60-105 [facility] Comment on above: Performed By: #### V ALLBG ####[place] [address] [place] [phone] HCO3 (Bld) [Moles/Vol] 28 mmol/L Normal 24-28 [facility] Comment on above: Performed By: #### V ALLBG ####[place] [address] [place] [phone] Hematocrit (Bld) [Volume fraction] 39.0 % Normal 36.0-46.0 [facility] Comment on above: Performed By: #### V ALLBG ####[place] [address] [place] [phone] Hemoglobin (Bld) [Mass/Vol] 12.7 g/dL Normal 11.5-15.5 [facility] Comment on above: Performed By: #### V ALLBG ####[place] [address] [place] [phone] Lactate [Moles/Vol] 1.6 mmol/L Normal 0.5-2.2 [facility] Comment on above: Performed By: #### V ALLBG ####[place] [address] [place] [phone] Methemoglobin 1.0 % Normal <1.6 [facility] Comment on above: Performed By: #### V ALLBG ####[place] [address] [place] [phone] O2 Administered 30% Normal [facility] Comment on above: Performed By: #### V ALLBG ####[place] [address] [place] [phone] Oxyhemoglobin, Ziyad. 78 % Normal 60-85 [facility] Comment on above: Performed By: #### V ALLBG ####[place] [address], [place] [phone] pCO2 49 mm Hg Normal 42-55 [facility] Comment on above: Performed By: #### V ALLBG ####[place] [address], [place] [phone] pCO2, Temp Correct 49 mm Hg Normal 42-55 [facility] Comment on above: Performed By: #### V ALLBG ####[place] [address], [place] [phone] pH (Bld) 7.38 [pH] Normal 7.32-7.42 [facility] Comment on above: Performed By: #### V ALLBG ####[place] [address], [place] [phone] pH, Temp Corrected 7.38 Normal 7.32-7.42 [facility] Comment on above: Performed By: #### V ALLBG ####[place] [address], [place] [phone] pO2 46 mm Hg High 35-45 [facility] Comment on above: Performed By: #### V ALLBG ####[place] [address] [place], [place] [phone] pO2, Temp Corrected 46 mm Hg High 35-45 [facility] Comment on above: Performed By: #### V ALLBG ####[place] [address] [place], [place] [phone] Potassium [Moles/Vol] 4.3 mmol/L Normal 3.5-5.0 [facility] Comment on above: Performed By: #### V ALLBG ####[place] [address], [place] [phone] Sodium [Moles/Vol] 141 mmol/L Normal 136-144 [facility] Comment on above: Performed By: #### V ALLBG ####[address] [phone] Magnesiumon 04-29-2021 Magnesium [Mass/Vol] 1.8 mg/dL Normal 1.7-2.3 [facility] Comment on above: Performed By: #### C BC, MG1, PHOS, PTT, CMP, PT ####[place] [address] [place], [place] [phone] NURSING PROGon 04-29-2021 NURSING PROG HNO ID: [id number] Author: Magda Rose RN Service: ? Author Type: Registered Nurse Type: Nursing Progress Note Filed: 04/29/2021 7:45 AM Note Text: Nursing Progress: Topic: RESTRAINT NON-VIOLENT PATIENT NAME: Oscar Pineda PATIENT LOCATION: [place] [address] The patient demonstrates Attempting to Remove Medical [...] TIME: 7:44 AM Diane Rose RN Normal [facility] Phosphoruson 04-29-2021 Phosphate [Mass/Vol] 3.2 mg/dL Normal 2.7-4.8 [facility] Comment on above: Performed By: #### C BC, MG1, PHOS, PTT, CMP, PT ####[place] [address] [place], [place] [phone] Protimeon 04-29-2021 PT INR 1.0 Normal 0.9-1.3 [facility] Comment on above: Result Comment: Neha min K Antagonist (VKA) Therapeutic Range: INR 2 to 3 (Target INR of 2.5) Note: For patients treated with VKA drugs, such as warfarin, the [place] [employer] 2012 Guideline recommends [...] Chest 2012, 141:7S-47S Daphne RA, et al. [facility] 2017, 70: 252-289 Performed By: #### C BC, MG1, PHOS, PTT, CMP, PT ####[facility] [place], [place] [phone] PT Sec 11.0 sec Normal 9.7-13.0 [facility] Comment on above: Performed By: #### C BC, MG1, PHOS, PTT, CMP, PT ####[facility] [place], [place] [phone] THERAPY NTon 04-29-2021 THERAPY NT HNO ID: [id number] Author: Neela Prasad, PT Service: Physical Therapy Author Type: Physical Therapist Type: Therapy (PT/OT/Speech/Resp) Filed: 04/29/2021 10:05 AM Note Text: Physical Therapy Evaluation SERVICE DATE: 04/29/2021 SERVICE TIME: 907 to 945 ROOM: [place] [address] Recommended Discharge Disposition: Home Recommended Discharge Disposition [...] trunk posture;Step length decreased;Non-functiona l gait speed [facility]: Walk 25 feet or more [...] Diagnosis: Reduced mobility-other Interventions Provided: Evaluation;Gait Training (03451);Therapeutic Activity (08735) $ Evaluation-Moderate (28824) Billed Units: 1 unit Therapeutic Activity (71574) Treatment Minutes: 8 $ Therapeutic Activity (22737) Billed Units: 1 unit Gait Training (56586) Treatment Minutes: 15 $ Gait Training (56433) Billed Units: 1 unit Training AND education provided in: Bed mobility, Benefits of in-hospital mobility, Discharge planning, Energy conservation, Expected functional level, Gait pattern, reduction of deviations, Positioning, Precautions/restriction s, Role of Physical Therapy, Sitting balance, Standing balance, Transfers, Treatment protocol, Equipment, Assistive device use The following therapeutic skills were used: Activity dosing, Assessment of tolerance includi (more content not included)... Normal [facility] Type and Screenon 04-29-2021 ABO/RH(D) Positive Normal [facility] Comment on above: Performed By: #### T SCR ####[place] [address] [place], [place] [phone] APTTon 04-28-2021 aPTT Coag (Bld) [Time] 26.6 s Normal 23.0-32.4 [facility] Comment on above: Result Comment: Unfr [...] laboratory APTT reagent in use throughout the [facility]. Performed By: #### P T, PTT, TRIG, CMP, CBC, MG1, PHOS ####[place] [address], [place] [phone] Blood Cultureon 04-28-2021 Bacteria identified Cx Nom (Bld) Culture Result - No growth 5 days Normal [facility] Comment on above: Performed By: #### B LCUL ####[place] [address] [phone] Bacteria identified Cx Nom (Bld) Culture Result - No growth 5 days Normal [facility] Comment on above: Performed By: #### B LCUL ####[place] [address] [place] [phone] CBCon 04-28-2021 Absolute nRBC <0.01 Normal <0.01 [facility] Comment on above: Performed By: #### P T, PTT, TRIG, CMP, CBC, MG1, PHOS ####[place] [address] [phone] Erythrocyte distribution width (RBC) [Ratio] 12.4 % Normal 11.5-15.0 [facility] Comment on above: Performed By: #### P T, PTT, TRIG, CMP, CBC, MG1, PHOS ####[address] [place] [phone] Hematocrit (Bld) [Volume fraction] 36.1 % Normal 36.0-46.0 [facility] Comment on above: Performed By: #### P T, PTT, TRIG, CMP, CBC, MG1, PHOS ####[place] [address] [phone] Hemoglobin (Bld) [Mass/Vol] 11.8 g/dL Normal 11.5-15.5 [facility] Comment on above: Performed By: #### P T, PTT, TRIG, CMP, CBC, MG1, PHOS ####[place] [address] [place], [place] [phone] MCH 30.9 pG Normal 26.0-34.0 [facility] Comment on above: Performed By: #### P T, PTT, TRIG, CMP, CBC, MG1, PHOS ####[place] [address], [place] [phone] MCHC (RBC) [Mass/Vol] 32.7 g/dL Normal 30.5-36.0 [facility] Comment on above: Performed By: #### P T, PTT, TRIG, CMP, CBC, MG1, PHOS ####[address] [phone] MCV (RBC) [Entitic vol] 94.5 fL Normal 80.0-100.0 [facility] Comment on above: Performed By: #### P T, PTT, TRIG, CMP, CBC, MG1, PHOS ####[address] [phone] Platelet mean volume (Bld) [Entitic vol] 9.8 fL Normal 9.0-12.7 [facility] Comment on above: Performed By: #### P T, PTT, TRIG, CMP, CBC, MG1, PHOS ####[address] [place], [place] [phone] Platelets (Bld) [#/Vol] 178 10*3/uL Normal 150-400 [facility] Comment on above: Performed By: #### P T, PTT, TRIG, CMP, CBC, MG1, PHOS ####[place] [address], [place] [phone] RBC (Bld) [#/Vol] 3.82 10*6/uL Low 3.90-5.20 [facility] Comment on above: Performed By: #### P T, PTT, TRIG, CMP, CBC, MG1, PHOS ####[place] [address], [place] [phone] WBC (Bld) [#/Vol] 11.29 10*3/uL High 3.70-11.00 [facility] Comment on above: Performed By: #### P T, PTT, TRIG, CMP, CBC, MG1, PHOS ####[place] [address], [place] [phone] CT ABD/PEL W IVCONon 021 CT ABD/PEL W IVCON * * *Final Report* * * DATE OF EXAM: Apr 28 2021 2:10PM [facility] [place]/PEL W IVCON / [...] chest CT performed will be reported separately. Dispatcher Motor Vehicle (topogram) images: No additional findings. IMPRESSION: Resolution of intravenous gas within the abdomen and pelvis. 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 Hand Grinder: PSCB Transcribe Date/Time: Apr 28 2021 2:50P Dictated by : KASHMIR RIVERA MD This examination was interpreted and the report reviewed and electronically signed by: ELIAS WOODY MD on Apr 28 2021 4:13PM EST [id number] Normal [facility] CT CHEST W IVCONon CT CHEST W IVCON * * *Final Report* * * DATE OF EXAM: Apr 28 2021 2:10PM [facility] [place] CHEST W IVCON / [...] There is minimal intrahepatic biliary ductal dilation. Dispatcher Motor Vehicle (topogram) images: No additional findings. IMPRESSION: 1. No CT evidence of air embolism within the systemic veins, right-sided heart chambers, central pulmonary arteries and hepatic veins. 2. Posterior complete LEFT lower lobe, partially dependent RIGHT lower lobe and dependent LEFT upper lobe atelectasis. Given the distribution, this finding may be related to aspiration. Trace bilateral pleural effusions. Hand Grinder: ANEL Transcribe Date/Time: Apr 28 2021 3:35P Dictated by : MICHELLE PETERSEN MD This examination was interpreted and the report reviewed and electronically signed by: MICHELLE PETERSEN MD on Apr 28 2021 3:45PM EST [id number] Normal [facility] Comp Metabolic Panelon 04-28 Albumin [Mass/Vol] 3.0 g/dL Low 3.9-4.9 [facility] Comment on above: Performed By: #### P T, PTT, TRIG, CMP, CBC, MG1, PHOS ####[place] [address] [place], [place] [phone] ALP [Catalytic activity/Vol] 36 U/L Normal 34-123 [facility] Comment on above: Performed By: #### P T, PTT, TRIG, CMP, CBC, MG1, PHOS ####[facility] [place], [place] [phone] ALT [Catalytic activity/Vol] 32 U/L Normal 7-38 [facility] Comment on above: Performed By: #### P T, PTT, TRIG, CMP, CBC, MG1, PHOS ####[place] [address], [place] [phone] Anion gap [Moles/Vol] 10 mmol/L Normal 9-18 [facility] Comment on above: Performed By: #### P T, PTT, TRIG, CMP, CBC, MG1, PHOS ####[address] [phone] AST [Catalytic activity/Vol] 102 U/L High 13-35 [facility] Comment on above: Performed By: #### P T, PTT, TRIG, CMP, CBC, MG1, PHOS ####[address], [place] [phone] Bilirubin [Mass/Vol] 0.3 mg/dL Normal 0.2-1.3 [facility] Comment on above: Performed By: #### P T, PTT, TRIG, CMP, CBC, MG1, PHOS ####[address] [phone] Calcium [Mass/Vol] 7.9 mg/dL Low 8.5-10.2 [facility] Comment on above: Performed By: #### P T, PTT, TRIG, CMP, CBC, MG1, PHOS ####[address] [phone] Chloride [Moles/Vol] 107 mmol/L High 97-105 [facility] Comment on above: Performed By: #### P T, PTT, TRIG, CMP, CBC, MG1, PHOS ####[place] [address], [place] [phone] CO2 [Moles/Vol] 25 mmol/L Normal 22-30 [facility] Comment on above: Performed By: #### P T, PTT, TRIG, CMP, CBC, MG1, PHOS ####[place] [address], [place] [phone] Creatinine [Mass/Vol] 0.85 mg/dL Normal 0.58-0.96 [facility] Comment on above: Performed By: #### P T, PTT, TRIG, CMP, CBC, MG1, PHOS ####[facility] [place], [place] [phone] eGFR- Amer. >60 Normal [facility] Comment on above: Performed By: #### P T, PTT, TRIG, CMP, CBC, MG1, PHOS ####[facility] [place] [address] [phone] eGFR-All Other Races >60 Normal [facility] Comment on above: Result Comment: eGFR [...] T, PTT, TRIG, CMP, CBC, MG1, PHOS ####[place] [address] [place], [place] [phone] Glucose [Mass/Vol] 86 mg/dL Normal 74-99 [facility] Comment on above: Result Comment: The [place] [employer] (ADA) provides guidance for cutoff [...] Standards of Medical Care in Diabetes 2016, [place] [employer]. Diabetes Care. 2016.39(Suppl 1). Performed By: #### P T, PTT, TRIG, CMP, CBC, MG1, PHOS ####[address] [phone] Potassium [Moles/Vol] 3.8 mmol/L Normal 3.7-5.1 [facility] Comment on above: Performed By: #### P T, PTT, TRIG, CMP, CBC, MG1, PHOS ####[place] [phone] Protein [Mass/Vol] 5.2 g/dL Low 6.3-8.0 [facility] Comment on above: Performed By: #### P T, PTT, TRIG, CMP, CBC, MG1, PHOS ####[address] [phone] Sodium [Moles/Vol] 142 mmol/L Normal 136-144 [facility] Comment on above: Performed By: #### P T, PTT, TRIG, CMP, CBC, MG1, PHOS ####[place] [phone] Urea nitrogen [Mass/Vol] 15 mg/dL Normal 7-21 [facility] Comment on above: Performed By: #### P T, PTT, TRIG, CMP, CBC, MG1, PHOS ####[address] [phone] GASV + ALLon 04-28-2021 Base Excess 2 mmol/L Normal [facility] Comment on above: Performed By: #### V ALLBG ####[address] [phone] Blood Gas Comm, Ziyad . Normal [facility] Comment on above: Performed By: #### V ALLBG ####[address] [phone] Body temperature 98.6 [degF] Normal [facility] Comment on above: Performed By: #### V ALLBG ####[place] [address] [place], [place] [phone] Calcium [Moles/Vol] 1.18 mmol/L Normal 1.08-1.30 [facility] Comment on above: Performed By: #### V ALLBG ####[place] [address], [place] [phone] Carboxyhemoglobin, Ziyad 0.7 % Normal <2.1 [facility] Comment on above: Performed By: #### V ALLBG ####[place] [address] [place], [place] [phone] CO2 [Moles/Vol] 30 mmol/L High 25-29 [facility] Comment on above: Performed By: #### V ALLBG ####[place] [address] [address], [place] [phone] Glucose [Mass/Vol] 90 mg/dL Normal 60-105 [facility] Comment on above: Performed By: #### V ALLBG ####[place] [address] [address], [place] [phone] HCO3 (Bld) [Moles/Vol] 29 mmol/L High 24-28 [facility] Comment on above: Performed By: #### V ALLBG ####[place] [address] [place], [place] [phone] Hematocrit (Bld) [Volume fraction] 37.7 % Normal 36.0-46.0 [facility] Comment on above: Performed By: #### V ALLBG ####[place] [address] [place], [place] [phone] Hemoglobin (Bld) [Mass/Vol] 12.3 g/dL Normal 11.5-15.5 [facility] Comment on above: Performed By: #### V ALLBG ####[place] [address], [place] [phone] Lactate [Moles/Vol] 0.9 mmol/L Normal 0.5-2.2 [facility] Comment on above: Performed By: #### V ALLBG ####[place] [address], [place] [phone] Methemoglobin 1.5 % Normal <1.6 [facility] Comment on above: Performed By: #### V ALLBG ####[place] [address] [address] [phone] O2 Administered 100% Normal [facility] Comment on above: Performed By: #### V ALLBG ####[place] [address] [address] [phone] Oxyhemoglobin, Ziyad. 83 % Normal 60-85 [facility] Comment on above: Performed By: #### V ALLBG ####[place] [address] [address] [phone] pCO2 57 mm Hg High 42-55 [facility] Comment on above: Performed By: #### V ALLBG ####[place] [address] [phone] pCO2, Temp Correct 57 mm Hg High 42-55 [facility] Comment on above: Performed By: #### V ALLBG ####[place] [address] [address] [phone] pH (Bld) 7.32 [pH] Normal 7.32-7.42 [facility] Comment on above: Performed By: #### V ALLBG ####[place] [address] [address], [place] [phone] pH, Temp Corrected 7.32 Normal 7.32-7.42 [facility] Comment on above: Performed By: #### V ALLBG ####[place] [address] [address], [place] [phone] pO2 54 mm Hg High 35-45 [facility] Comment on above: Performed By: #### V ALLBG ####[place] [address] [place], [place] [phone] pO2, Temp Corrected 54 mm Hg High 35-45 [facility] Comment on above: Performed By: #### V ALLBG ####[address] [phone] Potassium [Moles/Vol] 3.8 mmol/L Normal 3.5-5.0 [facility] Comment on above: Performed By: #### V ALLBG ####[place] [address] [place], [place] [phone] Sodium [Moles/Vol] 142 mmol/L Normal 136-144 [facility] Comment on above: Performed By: #### V ALLBG ####[address] [phone] Magnesiumon 04-28-2021 Magnesium [Mass/Vol] 2.0 mg/dL Normal 1.7-2.3 [facility] Comment on above: Performed By: #### P T, PTT, TRIG, CMP, CBC, MG1, PHOS ####[address] [phone] NURSING PROGon 04-28-2021 NURSING PROG HNO ID: [id number] Author: Laura Mullins, JOSE Service: ? Author Type: Registered Nurse Type: Nursing Progress Note Filed: 04/28/2021 8:01 PM Note Text: Nursing Progress: Topic: RESTRAINT NON-VIOLENT PATIENT NAME: Oscar Pineda PATIENT LOCATION: [place] [address] The patient demonstrates Attempting to Remove Medical [...] 2021 TIME: 8:01 PM Laura Mullins RN [facility] NURSING PROG HNO ID: [id number] Author: Rob Guerra RN Service: Radiology Author [...] DATE: April 28, 2021 TIME: 2:08 PM [facility] NURSING PROG HNO ID: [id number] Author: Yumiko Molina RN Service: ? Author Type: Registered Nurse Type: Nursing Progress Note Filed: 04/28/2021 2:57 PM Note Text: Nursing Progress Note Patient Name: Oscar Pineda Patient Location: [place] [address] 1200 IR at bedside, advised transfer to CT table while still in trendelenburg trial patient supine, still in trendelenburg. Tolerating [address], notified of positioning requirements 1345 HEADING MAKER, resident, two RT's, and two RN's at bedside for transport. Pt on telemetry/ continuous monitoring. CT and IR LIP notified. [address] imaging table, trendelenburg positioning maintained [address] and gave verbal OK to transition HOB flat then elevated (as tolerated) 1420 patient in SICU, HOB flat. Tolerating This note was completed by: Yumiko Molina [facility] NURSING PROG HNO ID: [id number] Author: Yumiko Molina RN Service: ? Author Type: Registered Nurse Type: Nursing Progress Note Filed: 04/28/2021 1:22 PM Note Text: Nursing Progress: Topic: RESTRAINT NON-VIOLENT PATIENT NAME: Oscar Pineda PATIENT LOCATION: [place] [id number]/G053-09 The patient demonstrates Attempting to Remove Medical Devices Vital to Medical Stability as evidenced by the following behaviors attempting to remove medical van driver which pose an imminent danger to self [...] 2021 TIME: 8:00AM Yumiko Molina RN Normal [facility] Phosphoruson 04-28-2021 Phosphate [Mass/Vol] 2.3 mg/dL Low 2.7-4.8 [facility] Comment on above: Performed By: #### P T, PTT, TRIG, CMP, CBC, MG1, PHOS ####[facility] [place], [place] [phone] Protimeon 04-28-2021 PT INR 1.0 Normal 0.9-1.3 [facility] Comment on above: Result Comment: Neha min K Antagonist (VKA) Therapeutic Range: INR 2 to 3 (Target INR of 2.5) Note: For patients treated with VKA drugs, such as warfarin, the [place] [employer] 2012 Guideline recommends [...] Chest 2012, 141:7S-47S Daphne PEDERSON et al. [facility] 2017, 70: 252-289 Performed By: #### P T, PTT, TRIG, CMP, CBC, MG1, PHOS ####[facility], [place] [phone] PT Sec 11.0 sec Normal 9.7-13.0 [facility] Comment on above: Performed By: #### P T, PTT, TRIG, CMP, CBC, MG1, PHOS ####[facility] [place], [place] [phone] Respiratory Cult/Stainon Respiratory Cult/Stain Sp. Request/Comment: - Specimen received in sterile container. Smear Result - Rare Mixed oral kaylynn Many Polymorphonuclear leukocytes Rare Epithelial cells Culture Result - Few Staphylococcus aureus --> ABNORMAL ALERT Insignificant colony count. No further workup. --> ABNORMAL ALERT Few Normal respiratory kaylynn present Critically abnormal [facility] Comment on above: Performed By: #### R CULST ####[address] [phone] Triglycerideon 04-28-2021 Fasting Time Unknown Normal [facility] Comment on above: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 Normal [facility] Comment on above: Performed By: #### V ALLBG ####[place] [phone] Calcium [Moles/Vol] 1.23 mmol/L Normal 1.08-1.30 [facility] Comment on above: Performed By: #### V ALLBG ####[place] [phone] Carboxyhemoglobin, Ziyad 0.9 % Normal <2.1 [facility] Comment on above: Performed By: #### V ALLBG ####[place] [phone] CO2 [Moles/Vol] 27 mmol/L Normal 25-29 [facility] Comment on above: Performed By: #### V ALLBG ####[place] [address], [place] [phone] Glucose [Mass/Vol] 144 mg/dL High 60-105 [facility] Comment on above: Performed By: #### V ALLBG ####[place] [address] [place], [place] [phone] HCO3 (Bld) [Moles/Vol] 25 mmol/L Normal 24-28 [facility] Comment on above: Performed By: #### V ALLBG ####[place] [address] [address] [place] [phone] Hematocrit (Bld) [Volume fraction] 43.2 % Normal 36.0-46.0 [facility] Comment on above: Performed By: #### V ALLBG ####[place] [address] [address] [place] [phone] Hemoglobin (Bld) [Mass/Vol] 14.1 g/dL Normal 11.5-15.5 [facility] Comment on above: Performed By: #### V ALLBG ####[address] [place] [phone] Lactate [Moles/Vol] 2.0 mmol/L Normal 0.5-2.2 [facility] Comment on above: Performed By: #### V ALLBG ####[place] [address] [address] [place] [phone] Methemoglobin 0.7 % Normal <1.6 [facility] Comment on above: Performed By: #### V ALLBG ####[place] [phone] O2 Administered 100% Normal [facility] Comment on above: Performed By: #### V ALLBG ####[place] [address] [address] [place] [phone] Oxyhemoglobin, Ziyad. 81 % Normal 60-85 [facility] Comment on above: Performed By: #### V ALLBG ####[place] [address] [address] [place] [phone] pCO2 53 mm Hg Normal 42-55 [facility] Comment on above: Performed By: #### V ALLBG ####[place] [address] [address] [place] [phone] pCO2, Temp Correct 53 mm Hg Normal 42-55 [facility] Comment on above: Performed By: #### V ALLBG ####[place] [address] [address], [place] [phone] pH (Bld) 7.30 [pH] Low 7.32-7.42 [facility] Comment on above: Performed By: #### V ALLBG ####[place] [address] [address] [place] [phone] pH, Temp Corrected 7.30 Low 7.32-7.42 [facility] Comment on above: Performed By: #### V ALLBG ####[place] [address] [address] [place] [phone] pO2 52 mm Hg High 35-45 [facility] Comment on above: Performed By: #### V ALLBG ####[place] [address] [address] [place] [phone] pO2, Temp Corrected 52 mm Hg High 35-45 [facility] Comment on above: Performed By: #### V ALLBG ####[place] [address] [address] [place] [phone] Potassium [Moles/Vol] 4.4 mmol/L Normal 3.5-5.0 [facility] Comment on above: Performed By: #### V ALLBG ####[place] [address] [address] [place] [phone] Sodium [Moles/Vol] 142 mmol/L Normal 136-144 [facility] Comment on above: Performed By: #### V ALLBG ####[place] [address] [address] [place] [phone] Base Excess Negative Normal [facility] Comment on above: Performed By: #### V ALLBG ####[place] [address] [address] [place], [place] [phone] Blood Gas Comm, Ziyad .VENOUS Normal [facility] Comment on above: Performed By: #### V ALLBG ####[facility], [place] [phone] Body temperature 98.6 [degF] Normal [facility] Comment on above: Performed By: #### V ALLBG ####[place] [address] [address] [place] [phone] Calcium [Moles/Vol] 1.25 mmol/L Normal 1.08-1.30 [facility] Comment on above: Performed By: #### V ALLBG ####[place] [address] [address] [place] [phone] Carboxyhemoglobin, Ziyad 0.5 % Normal <2.1 [facility] Comment on above: Performed By: #### V ALLBG ####[place] [address] [place] [phone] CO2 [Moles/Vol] 25 mmol/L Normal 25-29 [facility] Comment on above: Performed By: #### V ALLBG ####[place] [address] [address] [place] [phone] Glucose [Mass/Vol] 172 mg/dL High 60-105 [facility] Comment on above: Performed By: #### V ALLBG ####[place] [address] [address] [place] [phone] HCO3 (Bld) [Moles/Vol] 24 mmol/L Normal 24-28 [facility] Comment on above: Performed By: #### V ALLBG ####[place] [address] [place] [phone] Hematocrit (Bld) [Volume fraction] 44.2 % Normal 36.0-46.0 [facility] Comment on above: Performed By: #### V ALLBG ####[place] [address] [phone] Hemoglobin (Bld) [Mass/Vol] 14.4 g/dL Normal 11.5-15.5 [facility] Comment on above: Performed By: #### V ALLBG ####[place] [address] [address] [place] [phone] Lactate [Moles/Vol] 2.4 mmol/L High 0.5-2.2 [facility] Comment on above: Performed By: #### V ALLBG ####[place] [address] [address] [place] [phone] Methemoglobin 1.2 % Normal <1.6 [facility] Comment on above: Performed By: #### V ALLBG ####[place] [phone] O2 Administered 100% Normal [facility] Comment on above: Performed By: #### V ALLBG ####[place] [address] [place] [phone] Oxyhemoglobin, Ziyad. 98 % High 60-85 [facility] Comment on above: Performed By: #### V ALLBG ####[place] [address] [address] [place] [phone] pCO2 46 mm Hg Normal 42-55 [facility] Comment on above: Performed By: #### V ALLBG ####[place] [address] [phone] pCO2, Temp Correct 46 mm Hg Normal 42-55 [facility] Comment on above: Performed By: #### V ALLBG ####[place] [address] [address] [place] [phone] pH (Bld) 7.33 [pH] Normal 7.32-7.42 [facility] Comment on above: Performed By: #### V ALLBG ####[place] [address] [address] [place] [phone] pH, Temp Corrected 7.33 Normal 7.32-7.42 [facility] Comment on above: Performed By: #### V ALLBG ####[place] [address] [place], [place] [phone] pO2 246 mm Hg High 35-45 [facility] Comment on above: Performed By: #### V ALLBG ####[facility] [place], [place] [phone] pO2, Temp Corrected 246 mm Hg High 35-45 [facility] Comment on above: Performed By: #### V ALLBG ####[place] [address] [place], [place] [phone] Potassium [Moles/Vol] 4.4 mmol/L Normal 3.5-5.0 [facility] Comment on above: Performed By: #### V ALLBG ####[facility] [place], [place] [phone] Sodium [Moles/Vol] 143 mmol/L Normal 136-144 [facility] Comment on above: Performed By: #### V ALLBG ####[place] [address] [place], [place] [phone] HISTORY PHYSICALon HISTORY PHYSICAL HNO ID: [id number] Author: Kayce Wagner MD Service: Radiology Author [...] April 26, 2021 TIME: 8:54 PM [facility] Magnesiumon 04-26-2021 Magnesium [Mass/Vol] 1.9 mg/dL Normal 1.7-2.3 [facility] Comment on above: Performed By: #### C BC, MG1, PT, PTT, BMP, PHOS ####[place] [address] [place], [place] [phone] NURSING PROGon 04-26-2021 NURSING PROG HNO ID: [id number] Author: Jack Richards RN Service: Nursing Author Type: Registered Nurse Type: Nursing Progress Note Filed: 04/26/2021 9:21 PM Note Text: Nursing Progress: Topic: RESTRAINT NON-VIOLENT PATIENT NAME: Oscar Pineda PATIENT LOCATION: [place] [address]/[facility] [...] TIME: 8:00 PM Jack Richards RN [facility] NURSING PROG HNO ID: [id number] Author: Karsten Goldsmith RN Service: Nursing Author Type: Registered Nurse Type: Nursing Progress Note Filed: 04/26/2021 6:59 PM Note Text: Nursing Progress: Topic: RESTRAINT NON-VIOLENT PATIENT NAME: Oscar Pineda PATIENT LOCATION: [place] [address]/[facility] [...] TIME: 6:58 PM Karsten Goldsmith RN [facility] PT EDon 04-26-2021 PT ED HNO ID: [id number] Author: Agnes Schaefer RN Service: Interventional Radiology [...] SUPPLEMENTAL MATERIAL: None REFERRAL (RECOMMENDATION): None [facility] Phosphoruson 04-26-2021 Phosphate [Mass/Vol] 3.1 mg/dL Normal 2.7-4.8 [facility] Comment on above: Performed By: #### C BC, MG1, PT, PTT, BMP, PHOS ####[place] [address] [place], [place] [phone] Protimeon 04-26-2021 PT INR 1.1 Normal 0.9-1.3 [facility] Comment on above: Result Comment: Neha min K Antagonist (VKA) Therapeutic Range: INR 2 to 3 (Target INR of 2.5) Note: For patients treated with VKA drugs, such as warfarin, the [place] [employer] 2012 Guideline recommends [...] Chest 2012, 141:7S-47S Daphne PEDERSON et al. [facility] 2017, 70: 252-289 Performed By: #### C BC, MG1, PT, PTT, BMP, PHOS ####[address] [phone] PT Sec 11.9 sec Normal 9.7-13.0 [facility] Comment on above: Performed By: #### C BC, MG1, PT, PTT, BMP, PHOS ####[place] [address] [place], [place] [phone] Staph aureus PCRon 1 MRSA PCR Negative [facility] Comment on above: Performed By: #### S APCR ####[place] [address] [place], [place] [phone] S aureus Spec Source Nasal [facility] Comment on above: Performed By: #### S APCR ####[address] [phone] Staph aureus PCR Negative Normal [facility] Comment on above: Performed By: #### S APCR ####[address] [phone] XR ABDOMEN 1V SUPINEon 04-26 XR ABDOMEN [...] loops of bowel. No focal bony abnormality. Hand Grinder: [facility] Transcribe Date/Time: Apr 26 2021 2:53P Dictated by : RAMIN BROWNLEE MD This examination was interpreted and the report reviewed and electronically signed by: RAMIN BROWNLEE MD on Apr 26 2021 3:05PM EST [id number] [facility] XR CHEST 1V FRONTAL PORTon 1 [...] No acute process identified. IMPRESSION: See result. Hand Grinder: [facility] Transcribe Date/Time: Apr 26 2021 6:05P Dictated by : JASON LOWE MD This examination was interpreted and the report reviewed and electronically signed by: JASON LOWE MD on Apr 26 2021 6:07PM EST [id number] [facility] XR CHEST 1V FRONTAL PORT * [...] No acute process identified. IMPRESSION: See result. Hand Grinder: P[facility] Transcribe Date/Time: Apr 26 2021 3:57P Dictated by : JASON LOWE MD This examination was interpreted and the report reviewed and electronically signed by: JASNO LOWE MD on Apr 26 2021 3:58PM EST [id number] [facility] NURSING PROGon 04-24-2021 NURSING PROG HNO ID: [id number] Author: Shereen Kwok LPN Service: ? Author Type: LICENSED NURSE Type: Nursing Progress Note Filed: 04/24/2021 2:42 PM Note Text: Pre-procedure instructions: Contacted patient and confirmed appt. for Cryoablation scheduled on 04/26/21, at [facility]. Diet: Do not eat solid food after [...] signed. Arrival at 6:30am to desk QB-1 ([facility]) and check in for your procedure. Loan Broker/Transportation: How will you be arriving for your procedure? Private car. If you will be arriving at [facility] via ambulance or public transportation, please call to discuss. You will need a responsible adult to accompany you to and from the procedure. Your pack train driver is required to stay with you until you are taken into the Procedure room. [facility] is currently restricting visitors to two visitors per patient. No visitor under the age of 16. You and your visitor will be screened for temperature and COVID-19 symptoms upon entry to the hospital, and a wristband will be applied when cleared. If you develop any of the following symptoms before your procedure, please call [phone]. Chills, joint pain, rash, sore throat, cough, [...] No Written instructions provided to patient via [employer] If you have any questions please call [phone] [facility] MRI ABDOMEN WO/W IVCONon [facility] Vital Signs Date Time Vital Sign Value Performing Clinician Facility 10-10-2022 10:00-0400 Body height 161.29 cm Shaun Valentine Other [email or web address] Other 10-10-2022 10:00-0400 Body mass index (BMI) [Ratio] 23.08 kg/m2 Shaun Valentine Other [email or web address] Other 10-10-2022 10:00-0400 Body weight 60.06 kg Shaun Ball Other [email or web address] Other 10-10-2022 10:00-0400 Diastolic blood pressure 76 mm[Hg] Shaun Ball Other [email or web address] Other 10-10-2022 10:00-0400 Respiratory rate 12 /min Shaun Ball Other [email or web address] Other 10-10-2022 10:00-0400 Systolic blood pressure 110 mm[Hg] Shaun Ball Other [email or web address] Other 04-28-2022 15:46-0400 Body temperature 99.5 [degF] Melnai Russell MD Work Phone: [facility] 04-28-2022 15:46-0400 Body weight 76.39 kg Melani Russell MD Work Phone: [place] 04-28-2022 15:46-0400 Diastolic blood pressure 76 mm[Hg] Melani Russell MD Work Phone: [place] 04-28-2022 15:46-0400 Heart rate 71 /min Melani Russell MD Work Phone: [place] 04-28-2022 15:46-0400 Respiratory rate 20 /min Melani Russell MD Work Phone: [place] 04-28-2022 15:46-0400 SaO2% (BldA) [Mass fraction] 97 % Melani Russell MD Work Phone: [place] 04-28-2022 15:46-0400 Systolic blood pressure 131 mm[Hg] Melani Russell MD Work Phone: [facility] Encounters Encounter Date Encounter Type Care Provider [...] examination without abnormal findings DR SHAUN VALENTINE [facility] Start: 10-27-2022 Telephone encounter Shaun Valentine [facility] Start: 10-27-2022 End: 10-28-[address] SHAUN VALENTINE [facility] Other Start: 10-27-2022 End: 10-28-2022 Encounter for general adult medical examination without abnormal findings DR SHAUN VALENTINE Facility:[facility] Start: 10-10-2022 End: 10-10-2022 ambulatory Shaun Valentine Other [email or web address] Other Start: 10-10-2022 Encounter for genera l adult medical examination without abnormal findings Shaun Valentine [facility] Start: 10-10-2022 Periodic preventive med est patient 18-39 yrs Shaun Valentine [facility] Start: 04-28-2022 End: 04-29-2022 ambulatory Melani Russell MD Work Phone: Hematology/Oncology Comment on above: History of tumor (Pr imary Dx) Start: 04-28-2022 End: 04-29-2022 Patient encounter procedure Melani Russell MD Work Phone: [facility] Start: 04-21-2022 End: 04-21-2022 ambulatory MELANI RUSSELL Facility:[facility] Start: 04-21-2022 End: 04-21-2022 Subsequent hospital visit by physician [facility] [employer] [facility] (I-Stat/1.5t/3t) Work Phone: MRI Q 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] Start: 11-14-2021 ambulatory Melani Hutchison Work Phone: Hematology/Oncology 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 Start: 10-28-2021 Telephone encounter Melani Acuña rd, MD Work Phone: Hematology/Oncology Comment on above: Care Coordination Start: 09-27-2021 End: 09-27-2021 ambulatory MELANI RUSSELL Facility:[facility] Start: 09-20-2021 End: 09-20-2021 ambulatory MELANI RUSSELL Facility:[facility] Start: 05-07-2021 End: 05-07-2021 ambulatory ALEX URBANO [facility] Start: 05-06-2021 End: 05-06-2021 ambulatory ALEX URBANO [facility] Start: 04-26-2021 End: 04-30-2021 Evaluation and management of inpatient FASALAL POLIAWI [facility] Start: 02-28-2021 End: 02-28-2021 Subsequent hospital visit by physician Kiel [facility] (I-Stat/1.5t) Radiology Comment on above: Intra-abdominal and pelvic swelling, mass and lump, unspecified site [R19.00] Procedures Date Procedure Procedure Detail Performing Clinician Start: 04-29-2021 Antibody screen ALEX URBANO Comment on above: Performed By: #### T SCR ####[facility] [place], [place] [phone] Start: 04-26-2021 Antibody screen ALEX URBANO Comment on above: Performed By: #### T SCR ####[place] [id number] [place], [place] [phone] Start: 02-28-2021 Mri abdomen w/o & w/contrast material Cortez Carter MD Work Phone: Plan of Treatment Date Care Activity Detail Author Start: 03-20-2023 Covid-19 Vaccine () Covid-19 Vaccine () [place] Start: 03-20-[address] [facility] Start: 10-28-2022 End: 05-29-2023 Mri abdomen w/o & w/contrast material MRI ABDOMEN WO/W IVCON Radiology Routine History of tumor Expected: 10/28/2022, Expires: 05/29/2023 [facility] Work Phone: Comment on above: Expected: 10/28/2022 , Expires: 05/29/2023 Start: 10-28-2022 End: 05-29-2023 Mri pelvis w/o & w/contrast material MRI PELVIS WO/W IVCON Radiology Routine History of tumor Expected: 10/28/2022, Expires: 05/29/2023 [facility] Work Phone: Comment on above: Expected: 10/28/2022 , Expires: 05/29/2023 Start: 10-26-2022 End: 12-26-2022 CBC W Auto Differential panel - Blood ABS GRAN CT + CBC Lab Routine History of tumor Expected: 10/26/2022 (Approximate), Expires: 12/26/2022 [facility] Work Phone: Comment on above: Expected: 10/26/2022 (Approximate), Expires: 12/26/2022 Start: 10-26-2022 End: 12-26-2022 Comprehensive metabolic 2000 panel - Serum or Plasma COMP METABOLIC PANEL Lab Routine History of tumor Expected: 10/26/2022 (Approximate), Expires: 12/26/2022 [facility] Work Phone: Comment on above: Expected: 10/26/2022 (Approximate), Expires: 12/26/2022 Start: 07-20-2022 DEPRESSION ASSESSMENT DEPRESSION ASS ESSMENT [place] Start: 03-20-[address] [facility] Start: 09-12-2021 COVID-19 VACCINE (3 - Booster for Pfizer series) COVID-19 VACCINE (3 - Booster for Pfizer series) [place] Start: 07-20-2021 DEPRESSION ASSESSMENT DEPRESSION ASS [facility] Start: 06-07-2021 COVID-19 VACCINE (3 - Booster for Pfizer series) COVID-19 VACCINE (3 - Booster for Pfizer series) [place] Start: 06-07-2021 COVID-19 VACCINE (3 - Pfizer series) COVID-19 VACCINE (3 - Pfizer series) [place] Start: 03-15-2020 Urine microalbumin profile DTaP,Tdap,Td Vaccine (2 - Tdap) [place] Start: 2014 HPV TESTING HPV TESTING [place] Start: 2005 PAP TESTING PAP TESTING [place] Start: 2003 Urine microalbumin profile DTAP,TDAP,TD (1 - Tdap) [place] Start: 2002 HEPATITIS C SCREENING HEPATITIS C SC REENING [place] Start: 2002 HIV SCREENING HIV SCREENING [facility] Start: 1996 Adult depression screening assessment DEPRESSION SCREENING [place] Start: 1984 HEPATITIS B (1 of 3 - 3-dose series) HEPATITIS B (1 of 3 - 3-dose series) [place] Start: 1984 Hepatitis B Vaccine (1 of 3 - 3-dose series) Hepatitis B Vaccine (1 of 3 - 3-dose series) [place] End: 04-21-2022 Mri abdomen w/o & w/contrast material [facility] Work Phone: Comment on above: 1 Occurrences starti ng 04/21/2022 until 04/21/2022 End: 04-21-2022 Mri pelvis w/o & w/contrast material [facility] Work Phone: Comment on above: 1 Occurrences starti ng 04/21/2022 until 04/21/[facility] Immunization Date Immunization Notes Care Provider Fa cility 04-12-2021 COVID-19 Vaccine Pfi zer - Documentation Purposes Only Shaun Valentine Other [email or web address] Other 03-22-2021 COVID-19 Vaccine Pfi zer - Documentation Purposes Only Shaun Valentine Other [email or web address] Other 06-09-2019 influenza virus vaccine, unspecified formulation Mri (I-Stat/1.5t) [place] Payers Date Payer Category Payer Private Health Insurance [employer] A ETNA CHOICE POS II [id number] 2015-Present [phone] [address] [place] [address] POS [id number] 2015 Private Health Insurance [id number] 1984 Unknown [id number] 1984 Unknown [id number] [id number] .9 1984 Unknown [id number] [id number] .9 1984 Unknown [id number] [id number] .9 1984 Unknown [id number] [id number] .9 1984 Unknown [id number] [id number] .1259 1984 Unknown [id number] [id number] .9 1984 Unknown [id number] [id number] .1259 1984 Unknown [id number] [id number] .9 1984 Unknown [id number] .1259 1959 Private Health Insurance [id number] Private Health Insurance [id number] Social History Date Type Detail Facility [facility]: [facility] [place] Start: 02-14-2021 Tobacco use and exposure Smoke less tobacco non-user [place] Start: 1985 Sex Assigned At Female [facility] Start: 01-15-2021 End: 04-28-2022 Exposure to SARS-CoV-2 (event) Not sure [place] Start: 02-14-2021 End: 05-07-2021 Sex Assigned At [place] Start: 02-14-2021 End: 05-07-2021 History of Social function [place] Adult Depression Screening Assessment 0 [place] Start: 02-26-2021 Gender identity Identifies as female gender (finding) [place] Start: 03-27-2021 Sexual orientation Heterosexual (fin ding) [place] Clinical Notes 02-28-2021 to 10-10-2022 Note Date & Type Note Facility 10-10-2022 Evaluation note Encounter Date Diagnosis Assessment Notes Sep, Wellness examination (ICD-10 - Z00.00) Sep, Hair thinning (ICD-10 - L65.9) Check H/H and TSH Not scarring [email or web address] Other 10-11-2022 History of Present illness Narrative* [...] Hematology and Medical Oncology documented in this encounterCenterville10-10-2022 Nurse Note* Aliya Jean Baptiste RN - 04/28/2022 3:43 PM EDT Additional intake questions: Has the patient had fever, nausea, vomiting, diarrhea, constipation, fatigue for > 1 week? No Does the patient have a decreased appetite? No Does patient want to see a Cable Stretcher And Tester? No (yes to any of above refer patient to schedulers for dietitian appointment) ) Does patient have any new or increased numbness or tingling of extremities? No Is patient interested in fertility information? No Does patient need any prescription refills? No Does patient have an advanced directive in place? No, Patient referred to [facility] Electronically Signed By: Aliya Jean Baptiste RN documented in this encounterCenterville10-03-2022 NoteHNO ID: [id number] Author: Erin Garcia RN Service: ? Author [...] April 21, 2022 TIME: 5:35 [facility]10-03-2022 NoteHNO ID: [id number] Author: RT Toby(R) Service: Radiology Author Type: [...] Toby(R) April 21, 2022 6:08 [facility] [...] 21, 2022 6:08 PM documented in this encounterCenterville04-13-2022 Miscellaneous Notes* Telephone Encounter - Brittany Avendaño [facility] - 10/30/2021 3:24 PM EDT Patient calling stating she has not received a call back, Please call @ [phone] * Telephone Encounter - Brittany Avendaño [facility] - 10/28/2021 10:02 AM EDT Oscar Pineda is calling Melani Russell MD today regarding Care Coordination,calling with questions about with her condition. Patient has been identified by name and birthdate. Duration of symptoms: N/A Requesting response back: call on cell [phone] (home) [phone] (cell) Brittany Avendaño [facility] October 28, 2021 documented in this encounterCenterville03-11-2022 NoteHNO ID: [id number] Author: Melani Russell MD Service: ? Author [...] Melani Pérez MD Internal Medicine Resident, PGY-1 [facility] 09/27/2021 SOLID TUMOR STAFF: ATTENDING PHYSICIAN [...] Russell MD, PhD Staff, [facility]ology [facility]2022 Note HNO ID: [id number] Author: Shannan Ansari, RT(R) Service: Radiology Author [...] [facility]03-04-2022 NoteHNO ID: [id number] Author: Ronda Arora Service: ? Author Type: [...] [facility]10-18-2021 NoteHNO ID: [id number] Author: LANETTE De Leon Service: ? Author Type: Genetic Counselor Type: Progress Notes Filed: 05/24/2021 11:18 AM Note Text: [facility] Consultation Note Genetic Counselor: Melida Quintero MS, [facility] Patient: Oscar Pineda Patient Name and confirmed at initiation of visit Visit was done virtually via Zoom Portions of the visit were done by genetic counseling sports internship Suzanna Fishman under my supervision HIGH [...] unknown descent and paternal ancestors are of Vietnamese and Nigerian descent. There is no Ashkenazi Samar[place] ancestry. [...] that the patient's genetic (more content not included)...[facility]10-12-2021 NoteHNO ID: [id number] Author: Katty Logan APRN.NGUYEN Service: Critical Care [...] the A/P section below. Please refer to [employer] for list of inpatient medications. VITAL SIGNS: [...] room air today KIMBER (more content not included)...[facility]10-11-2021 NoteHNO ID: [id number] Author: Kayce Wagner MD Service: Radiology Author [...] her to go home. Kayce Wagner MD [phone] Hospital10-11-2021 NoteHNO ID: [id number] Author: Marva Sitles APRN.GUNNERY/ORDNANCE OFFICER Service: Critical Care Author Type: Nurse Practitioner [...] Completed decadron -> transitioned to medrol. Consulted [facility] for transfer of service. Addendum @ 1115: pt to remain in SICU, [facility] does not feel comfortable accepting pt given supplemental O2 needs and < 24 hrs since extubation. Objective MEDICATIONS: Current medications and allergies reviewed. Recommended/planned medication changes discussed in detail in the A/P section below. Please refer to [facility] [facility] for list of inpatient medications. VITAL SIGNS: [...] Is Patient Clinically Ready to Transfer to [facility] or SDU?: Yes, transfer to SDU or [facility] today Discharge Planning: Home Prevention: Line [...] and on 100% FiO2 (more content not included)...[facility]10-11-2021 NoteHNO ID: [id number] Author: Jose M Cedillo MD Service: Interventional [...] who [place] with [facility] [place]. Pt [...] April 29, 2021 TIME: 8:45 AM PAGER/CONTACT #:[facility]10-10-2021 NoteHNO ID: [id number] Author: Sara Guzman APRN.GUNNERY/ORDNANCE OFFICER Service: Critical Care Author Type: Nurse Practitioner [...] the A/P section below. Please refer to [employer] [facility] for list of inpatient medications. VITAL SIGNS: [...] Is Patient Clinically Ready to Transfer to [facility] or SDU?: No Discharge Planning: To [...] Current Assessment AND Pl (more content not included)...[facility]10-10-2021 NoteHNO ID: [id number] Author: Jose M Cedillo MD Service: Interventional [...] who presented for [place]ablation on [place]26 [place] [facility] [place]. Pt [...] April 29, 2021 TIME: 8:34 AM PAGER/CONTACT #:[facility]10-09-2021 NoteHNO ID: [id number] Author: RT Agus(R) Service: Radiology Author Type: [...] Wallace April 27, 2021 12:23 [facility] [...] of this encounter (statuses as of 11/01/2021) [place]10-09-2021 History of Past illness Narrative* Problem Noted [...] of this encounter (statuses as of 11/19/2021) [place]10-09-2021 History of Past illness Narrative* Problem Noted [...] of this encounter (statuses as of 04/22/2022) [place]10-09-2021 History of Past illness Narrative* Problem Noted [...] of this encounter (statuses as of 04/29/2022) [place]10-09-2021 History of Past illness Narrative* Problem Noted [...] of this encounter (statuses as of 02/25/2023) [place]10-09-2021 NoteHNO ID: [id number] Author: Anila Wise APRN.CNP Service: Critical Care [...] Is Patient Clinically Ready to Transfer to [facility] or SDU?: No Discharge Planning: To [...] Pulmonary Acute respiratory insufficie (more content not included)...[facility]-09-2021 NoteHNO ID: [id number] Author: Jose M Cedillo MD Service: Interventional [...] to look for air in the hepatic veinsGenesis Hospital 04-27-2021 NoteHNO ID: [id number] Author: Interface Note Service: ? Author Type: ? Type: Progress Notes Filed: 04/27/2021 2:51 AM Note Text: Epic Scheduled Downtime: 04/27/2021 1:00:00 AM to 04/27/2021 2:33:00 [facility]10-08-2021 NoteHNO ID: [id number] Author: Marva Stiles APRN.CNP Service: Critical Care [...] the A/P section below. Please refer to [facility] for list of inpatient medications. VITAL [...] Is Patient Clinically Ready to Transfer to [facility] or SDU?: No Discharge Planning: To [...] 1245 vte pharmacologic prophyl (more content not included)...[facility]10-08-2021 NoteHNO ID: [id number] Author: Galdino Gaona DO Service: Critical Care Author Type: Fellow Type: Procedures Filed: 04/26/2021 4:34 PM Note Text: BEDSIDE PROCEDURE NOTE CENTRAL LINE INSERTION Date/Start Time: 04/26/2021 4:33 PM Performed by: Galdino Gaona DO Authorized by: Polly Reyna MD Informed Consent Consent Obtained: Written [place] Protocol A moment to CARE was completed. [...] was applied following the usual aseptic technique. [place] Central Line Insertion Checklist, attached to the [...] April 26, 2021 TIME: 4:32 [facility]10-08-2021 NoteHNO ID: [id number] Author: Polly Reyna MD Service: Critical Care [...] MD SICU Staff. 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 Intra-abdominal and pelvic swelling, mass and lump, unspecified site Abdominal mass, unspecified abdominal location documented in this encounter [facility] note* Diagnosis History of tumor- Primary Personal history of other specified diseases documented in this encounter [facility] noteNo InformationNortTrinity Health i-nexus Other History general Narrative - Reported* Type Description Date Medical History Fatigue Medical History Gall bladder polyp Medical History Atopic dermatitis, mild Medical History DESMOID FIBROMATOSIS Surgical History C section x 3 Surgical History wisdom teeth Surgical History RIGHT ABDOMINAL WALL MASS Hospitalization History see above [facility] i-nexus Other Advance Directives No Advanced Directives Records FoundDocuments on File Type Date Recorded 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 Advance Directive(s) 04/10/2021 12:55 PM Advance Directive(s) 03/07/2021 6:15 PM Reason for Referral Specialty Diagnoses / Procedures Referred By Katie t Referred To Contact MR IMAGING Diagnoses Desmoid Abdominal mass, unspecified abdominal location Procedures MRI PELVIS WO/W IVCON MRI PELVIS W/O & W/CONTRAST MATERIAL Melani Russell MD [address] [place], [place] [id number] Mr Imaging Referral ID Status Reason Start Date Expiration Date V isits Requested Visits Authorized [id number] Closed Auto-Generate d Referral 03/30/2022 10/27/2022 1 1 Specialty Diagnoses / Procedures Referred By Jannaac t Referred To Contact MR IMAGING Diagnoses Desmoid Intra-abdominal and pelvic swelling, mass and lump, unspecified site Procedures MRI ABDOMEN WO/W IVCON MRI ABDOMEN W/O & W/CONTRAST MATERIAL Melani Russell MD [address] [place], [place] [id number] Mr Imaging Referral ID Status Reason Start Date Expiration Date V isits Requested Visits Authorized [id number] Closed Auto-Generate d Referral 03/30/2022 10/27/2022 1 1 Specialty Diagnoses / Procedures Referred By Jannaac t Referred To Contact MR IMAGING Diagnoses History of tumor Procedures MRI PELVIS WO/W IVCON MRI PELVIS W/O & [place] [address] [place] [address] Mr Imaging Referral ID Status Reason Start Date Expiration Date Visits Requested Visits Authorized [id number] Pending Review Auto-Generat ed Referral 10/28/2022 05/29/2023 1 1 Specialty Diagnoses / Procedures Referred By Contac kartik Referred To Contact MR IMAGING Diagnoses History of tumor Procedures MRI ABDOMEN WO/W IVCON MRI ABDOMEN W/O & [place] [address] [place] [address] Mr Imaging Referral ID Status Reason Start Date Expiration Date Visits Requested Visits Authorized [id number] Pending Review Auto-Generat ed Referral 10/28/2022 05/29/2023 [...] or prosecute any alcohol or drug abuse patient.[place]In the event this information is protected by the Federal Confidentiality of Alcohol and Drug Abuse Patient Records regulations: The Federal rules restrict any use of the information to criminally investigate or prosecute any alcohol or drug abuse patient.[place]ervilleIn the event this information is protected by the Federal Confidentiality of Alcohol and Drug Abuse Patient Records regulations: The Federal rules restrict any use of the information to criminally investigate or prosecute any alcohol or drug abuse patient.[place]ervilleIn the event this information is protected by the Federal Confidentiality of Alcohol and Drug Abuse Patient Records regulations: The Federal rules restrict any use of the information to criminally investigate or prosecute any alcohol or drug abuse patient.[place]ervilleIn the event this information is protected by the Federal Confidentiality of Alcohol and Drug Abuse Patient Records regulations: The Federal rules restrict any use of the information to criminally investigate or prosecute any alcohol or drug abuse patient.[place]ervilleIn the event this information is protected by the Federal Confidentiality of Alcohol and Drug Abuse Patient Records regulations: The Federal rules restrict any use of the information to criminally investigate or prosecute any alcohol or drug abuse patient.[place] Reason for Visit (unrecogniz ed section and content) Reason Comments Care Coordination Reason Comments Radiology MRI Specialty Diagnoses / Procedures Referred By Contac t Referred To Contact MR IMAGING Diagnoses Desmoid Intra-abdominal and pelvic swelling, mass and lump, unspecified site Procedures MRI ABDOMEN WO/W IVCON MRI ABDOMEN W/O & W/[place] [address] [place] [id number] Mr Imaging Referral ID Status Reason Start Date Expiration Date V isits Requested Visits Authorized [id number] Closed Auto-Generate d Referral 03/30/2022 10/27/2022 1 1 Reason Comments Established Patient Reason Comments Radiology MRI Specialty Diagnoses / Procedures Referred By Contac t Referred To Contact MR IMAGING Diagnoses Intra-abdominal and pelvic swelling, mass and lump, unspecified site Procedures MRI ABDOMEN WO/W IVCON MRI,ABDOMEN,W&WO Cortez Dubois MD [address] [place] [address] [place] [address] Referral ID Status Reason Start Date Expiration Date V isits Requested Visits Authorized [id number] Closed Auto-Generate d Referral 02/14/2021 03/16/2022 1 1 Care Teams (unrecognized sec tion and content) Tin Plater Relationship Specialty [place] [address] [place] [id number] Physician Hematology/Oncology 05/20/21 Chey Tamayo, JOSE [address] [place], [place] [address] Specialty Manager Relocation Oncology 05/20/21 Tin Plater Relationship Specialty Start Date End Date Melani Russell [place] [id number] [place], [place] [phone] Physician Hematology/Oncology 05/20/21 Claritza Tamayo RN [address] [place] [address] Specialty Manager Relocation Oncology 05/20/21 Tin Plater Relationship Specialty Start Date End Date Melani Russell MD [address] [place] [address] Physician Hematology/Oncology 05/20/21 Claritza Tamayo RN [address] [place] [address] Specialty Manager Relocation Oncology 05/20/21 Tin Plater Relationship Specialty Start Date End Date Melani Russell MD [address] [place] [address] Physician Hematology/Oncology 05/20/21 Claritza Tamayo RN [address] [place] [address] Specialty Manager Relocation Oncology 05/20/21 Tin Plater Relationship Specialty Start Date End Date Melani Russell MD [address] [place] [address] Physician Hematology/Oncology 05/20/21 Suzanna Chaidez RN [address] [place] [address] Specialty Manager Relocation Hematology/Oncology 06/10/22 INFORMATION SOURCE (unrecogn ized section and content) DATE CREATED AUTHOR 04/23/2022 [facility] DATE CREATED AUTHOR AUTHOR'S ORGANIZ ATION 11/02/2022 [facility] DATE CREATED AUTHOR AUTHOR'S ORGANIZ ATION 10/06/2023 [facility] dical Specialists EPIC FOR RECORDS PERTAINING TO [...] BE BASED ON THE PRIMARY CLINICAL RECORDS. [facility] [employer] [facility]. provides no warranty or guarantee of the accuracy or completeness of information in this document.
[2023-10-13 16:52] VITALS: BP 120/72; PULSE 58
== END 2023-10-13 17:20 | disposition home or self-care (01) ==
LOC: FBCO 07:18 → FBC 16:49
PROVIDERS: PCP Internal Medicine; Visit Provider Obstetrics & Gynecology
DX: O36.63X0 Maternal care for excessive fetal growth, third trimester, not applicable or unspecified (principal); Z3A.38 38 weeks gestation of pregnancy
CPT/HCPCS: 59025

== ENCOUNTER 2023-10-16 05:29 | Inpatient (IN) | payer OTHER, SELFPAY ==
[2023-10-16] VITALS (47 sets, daily range): BP systolic 100–131; BP diastolic 56–87; PULSE 63–89; TEMP 36.2–37.1; O2SAT 97–100
--- OUTSIDE RECORDS SUMMARY | 2023-10-16 05:33 | XMS_ITS | CCD ---
Author Organization [facility] Care Team Providers Care Pattern Puncher Name Role Phone Drew JAMES, Melani Unavailable Yariel GARCIA, Chey Unavailable [phone] Yariel GARCIA, Claritza Andrade Unavailable [phone] Drew JAMES, Melani Unavailable Yariel GARCIA, Claritza Andrade Unavailable [phone] ALEX URBANO Referring Unavailable ALTAHAWI, FAYSMARIELLA Attending [...] Translations: [CODEINE] Drug Allergy 1 GI Upset [facility] (7 sources) Adhesive Tape-Silicones; Translations: [ADHESIVE TAPE-SILICONES] Drug Allergy 1 Other: See Comments [facility] (2 sources) Adhesive agent Drug allergy Unknown [facility] Other (2 sources) Codeine Drug Allergy nausea [facility] Other (1 source) Codeine Drug Allergy 1 [facility] (1 source) Desonide Drug Allergy 1 [facility] Medications Current Medications Medication Drug Class(es) [...] 10-27-2022 BASO # 0.1 103/ul Normal 0.0-0.1 [facility] Comment on above: Performed By: #### C BC #### [facility] [address] [address] [address] Rancho Cobos Basophils/100 WBC (Bld) 0.9 % Normal 0.2-2.0 [facility] Comment on above: Performed By: #### C BC #### [facility] [address] [place] [address] Dr. Rancho Cobos EO # 0.1 103/ul Normal 0.0-0.7 [facility] Comment on above: Performed By: #### C BC #### [facility] [address] [address] [address] Rancho Cobos Eosinophils/100 WBC (Bld) 1.4 % Normal 0.9-7.0 [facility] Comment on above: Performed By: #### C BC #### [facility] [address] [place] [address] Dr. Rancho Cobos Erythrocyte distribution width (RBC) [Ratio] 11.8 % Normal 11.0-15.0 [facility] Comment on above: Performed By: #### C BC #### [facility] [address] [place] [address] Dr. Rancho Cobos Hematocrit (Bld) [Volume fraction] 38.5 % Normal 36.0-48.0 [facility] Comment on above: Performed By: #### C BC #### [facility] [address] [place] [address] Dr. Rancho Cobos Hemoglobin (Bld) [Mass/Vol] 13.3 g/dL Normal 12.0-16.0 [facility] Comment on above: Performed By: #### C BC #### [facility] [address] [place] [address] Dr. Rancho Cobos IG # 0.01 10e3/ul Normal 0.00-0.03 [facility] Comment on above: Performed By: #### C BC #### [facility] [address] [place] [address] Dr. Rancho Cobos IG % 0.2 % Normal 0.0-0.5 [facility] Comment on above: Performed By: #### C BC #### [facility] [address] [place] [address] Dr. Rancho Cobos LYMPH # 1.7 103/ul Normal 1.2-3.8 [facility] Comment on above: Performed By: #### C BC #### [facility] [address] [place] [address] Dr. Rancho Cobos Lymphocytes/100 WBC (Bld) 31.2 % Normal 20.5-60.0 [facility] Comment on above: Performed By: #### C BC #### [facility] [address] [place] [address] Dr. Rancho Cobos MANUAL DIFF REQ NO Normal [facility] Comment on above: Performed By: #### C BC #### [facility] [address] [place] [address] Dr. Rancho Cobos MCH (RBC) [Entitic mass] 31.9 pg Normal 26.7-34.0 [facility] Comment on above: Performed By: #### C BC #### [facility] [address] [place] [address] Dr. Rancho Cobos MCHC (RBC) [Mass/Vol] 34.5 g/dL Normal 29.9-35.2 [facility] Comment on above: Performed By: #### C BC #### [facility] [address] [place] [address] Dr. Rancho Cobos MCV (RBC) [Entitic vol] 92.3 fL Normal 81.0-99.0 [facility] Comment on above: Performed By: #### C BC #### [facility] [address] [address] [address] Rancho Cobos MONO # 0.3 103/ul Normal 0.3-0.8 [facility] Comment on above: Performed By: #### C BC #### [facility] [address] [address] [address] Rancho Cobos Monocytes/100 WBC (Bld) 5.2 % Normal 1.7-12.0 [facility] Comment on above: Performed By: #### C BC #### [facility] [address] [place] [address] Dr. Rancho Cobos NEUT # 3.4 103/ul Normal 1.4-6.5 [facility] Comment on above: Performed By: #### C BC #### [facility] [address] [place] [address] Dr. Rancho Cobos Neutrophils/100 WBC (Bld) 61.1 % Normal 43.0-75.0 [facility] Comment on above: Performed By: #### C BC #### [facility] [address] [place] [address] Dr. Rancho Cobos Platelet mean volume (Bld) [Entitic vol] 9.4 fL Critically low 9.5-13.5 [facility] Comment on above: Performed By: #### C BC #### [facility] [address] [place] [address] Dr. Rancho Cobos PLT 261 103/ul Normal 150-450 [facility] Comment on above: Performed By: #### C BC #### [facility] [address] [address] [address] Rancho Cobos RBC 4.17 106/ul Critically low 4.20-5.40 [facility] Comment on above: Performed By: #### C BC #### [facility] [address] [place] [address] Dr. Rancho Cobos WBC 5.6 103/ul Normal 4.0-11.0 [facility] Comment on above: Performed By: #### C BC #### [facility] [address] [place] [address] Dr. Rancho Cobos LIPID PROFILEon 10-27-2022 CHOL-HDL RATIO NORM SEE BELOW Normal [facility] Comment on above: Result Comment: 3.3 - 4.4 LOW RISK 4.4 - 7.1 AVERAGE RISK 7.1 - 11.0 MODERATE RISK >11.0 HIGH RISK Performed By: #### C MP, LIPID, TSH #### [facility] [address] [address] [address] Rancho Cobos Cholesterol [Mass/Vol] 162 mg/dL Normal <=200 [facility] Comment on above: Performed By: #### C MP, LIPID, TSH #### [facility] [address] [address] [address] Rancho Cobos Cholesterol in HDL [Mass/Vol] 56 mg/dL Normal 40-60 [facility] Comment on above: Performed By: #### C MP, LIPID, TSH #### [facility] [address] [address] [address] Rancho Cobos Cholesterol in LDL [Mass/Vol] 97.0 mg/dL Normal [facility] Comment on above: Performed By: #### C MP, LIPID, TSH #### [facility] [address] [address] [address] Rancho Cobos Cholesterol.total/ Cholesterol in HDL [Mass ratio] 2.9 {ratio} Normal [facility] Comment on above: Performed By: #### C MP, LIPID, TSH #### [facility] [address] [address] [address] Rancho Cobos HDL NORMAL > or = 60 mg/dl - LO W CARDIOVASCULAR RISK <40 mg/dl - HIGH CARDIOVASCULAR RISK Normal [facility] Comment on above: Performed By: #### C MP, LIPID, TSH #### [facility] [address] [address] [address] Rancho Cobos LDL CALC NORMAL SEE BELOW Normal [facility] Comment on above: Result Comment: <100 mg/dl OPTIMAL 100 - 129 mg/dl NEAR OR ABOVE OPTIMAL 130 - 159 mg/dl BORDERLINE HIGH 160 - 189 mg/dl HIGH >190 mg/dl VERY HIGH Performed By: #### C MP, LIPID, TSH #### [facility] [address] [address] [address] Rancho Cobos Triglyceride [Mass/Vol] 45 mg/dL Normal <=150 [facility] Comment on above: Performed By: #### C MP, LIPID, TSH #### [facility] [address] [place] [address] Dr. Rancho Cobos VLDL CALC 9.0 mg/dL Normal [facility] Comment on above: Performed By: #### C MP, LIPID, TSH #### [facility] [address] [address] [address] Rancho Cobos PROF 14(COMP METB)on 023 Albumin [Mass/Vol] 4.0 g/dL Normal 3.4-5.0 [facility] Comment on above: Performed By: #### C MP, LIPID, TSH #### [facility] [address] [place] [address] Dr. Rancho Cobos Albumin/Globulin [Mass ratio] 1.2 {ratio} Normal [facility] Comment on above: Performed By: #### C MP, LIPID, TSH #### [facility] [address] [place] [address] Dr. Rancho Cobos ALP [Catalytic activity/Vol] 34 U/L Critically low 46-116 [facility] Comment on above: Performed By: #### C MP, LIPID, TSH #### [facility] [address] [place] [address] Dr. Rancho Cobos ALT [Catalytic activity/Vol] 24 U/L Normal 14-59 [facility] Comment on above: Performed By: #### C MP, LIPID, TSH #### [facility] [address] [place] [address] Dr. Rancho Cobos Anion gap [Moles/Vol] 12.1 mmol/L Normal [facility] Comment on above: Performed By: #### C MP, LIPID, TSH #### [facility] [address] [place] [address] Dr. Rancho Cobos AST [Catalytic activity/Vol] 17 U/L Normal 15-37 [facility] Comment on above: Performed By: #### C MP, LIPID, TSH #### [facility] [address] [address] [address] Rancho Cobos Bilirubin [Mass/Vol] 0.5 mg/dL Normal 0.2-1.0 [facility] Comment on above: Performed By: #### C MP, LIPID, TSH #### [facility] [address] [address] [address] Rancho Cobos Calcium [Mass/Vol] 9.2 mg/dL Normal 8.5-10.1 [facility] Comment on above: Performed By: #### C MP, LIPID, TSH #### [facility] [address] [address] [address] Rancho Cobos Chloride [Moles/Vol] 107 mmol/L Normal 98-107 [facility] Comment on above: Performed By: #### C MP, LIPID, TSH #### [facility] [address] [place] [address] Dr. Rancho Cobos CO2 [Moles/Vol] 28.5 mmol/L Normal 21.0-32.0 [facility] Comment on above: Performed By: #### C MP, LIPID, TSH #### [facility] [address] [place] [address] Dr. Rancho Cobos Creatinine [Mass/Vol] 0.72 mg/dL Normal 0.55-1.02 [facility] Comment on above: Performed By: #### C MP, LIPID, TSH #### [facility] [address] [place] [address] Dr. Rancho Cobos EGFR-AF AFGHAN >60 Normal >=60 [facility] Comment on above: Performed By: #### C MP, LIPID, TSH #### [facility] [address] [place] [address] Dr. Rancho Cobos EGFR-NON AF AFGHAN >60 Normal >=60 [facility] Comment on above: Performed By: #### C MP, LIPID, TSH #### [facility] [address] [place] [address] Dr. Rancho Cobos Globulin (S) [Mass/Vol] 3.4 g/dL Normal [facility] Comment on above: Performed By: #### C MP, LIPID, TSH #### [facility] [address] [place] [address] Dr. Rancho Cobos Glucose [Mass/Vol] 92 mg/dL Normal 74-106 [facility] Comment on above: Performed By: #### C MP, LIPID, TSH #### [facility] [address] [place] [address] Dr. Rancho Cobos Potassium [Moles/Vol] 4.6 mmol/L Normal 3.5-5.1 [facility] Comment on above: Performed By: #### C MP, LIPID, TSH #### [facility] [address] [place] [address] Dr. Rancho Cobos Protein [Mass/Vol] 7.4 g/dL Normal 6.4-8.2 [facility] Comment on above: Performed By: #### C MP, LIPID, TSH #### [facility] [address] [place] [address] Dr. Rancho Cobos Sodium [Moles/Vol] 143 mmol/L Normal 136-145 [facility] Comment on above: Performed By: #### C MP, LIPID, TSH #### [facility] [address] [place] [address] Dr. Rancho Cobos Urea nitrogen [Mass/Vol] 18.0 mg/dL Normal 7.0-18.0 [facility] Comment on above: Performed By: #### C MP, LIPID, TSH #### [facility] [address] [place] [address] Dr. Rancho Cobos Urea nitrogen/Creatinin e [Mass ratio] 25.0 mg/mg Normal [facility] Comment on above: Performed By: #### C MP, LIPID, TSH #### [facility] [address] [place] [address] Dr. Rancho Cobos TSHon 10-27-2022 TSH 1.005 uIU/mL Normal 0.358-3.740 [facility] Comment on above: Performed By: #### C MP, LIPID, TSH #### [facility] [address] [place] [address] Dr. Rancho Cobos MRI ABDOMEN WO/W IVCONon [...] suspicious marrow signal abnormality. Lower chest: Unremarkable. Bull Gang Supervisor (localizer) images: No additional findings. IMPRESSION: Evolving changes of RIGHT rectus abdominis muscle ablation without local recurrence. No metastatic disease in abdomen or pelvis Bonding Machine Setter: ANEL Transcribe Date/Time: Apr 22 2022 10:29A Dictated by : LIBRADO JOAQUIN DO This examination was interpreted and the report reviewed and electronically signed by: CANELO EDMONDSON MD on Apr 22 2022 12:49PM EST [id number] Normal [facility] MRI PELVIS WO/W IVCONon 10-0 MRI [...] suspicious marrow signal abnormality. Lower chest: Unremarkable. Bull Gang Supervisor (localizer) images: No additional findings. IMPRESSION: Evolving changes of RIGHT rectus abdominis muscle ablation without local recurrence. No metastatic disease in abdomen or pelvis Bonding Machine Setter: ANEL Transcribe Date/Time: Apr 22 2022 10:29A Dictated by : LIBRADO JOAQUIN, DO This examination was interpreted and the report reviewed and electronically signed by: CANELO EDMONDSON MD on Apr 22 2022 12:49PM EST [id number] Normal [facility] 10-28-2021 CNPN Telephone (HEMCA3) OSCAR PINEDA ([id number]) 1985 F Date Time Provider Department 10/28/21 MELANI RUSSELL HEMCA3 During your visit today, we recorded the following information about you: Brittany Avendaño ADM 10/28/2021 10:04 AM Signed Oscar Pineda is calling Melani Russell MD today regarding Care Coordination,calling with questions about with her condition. Patient has been identified by name and birthdate. Duration of symptoms: N/A Requesting response back: call on cell [phone] (home) [phone] (cell) Brittany Avendaño ADM October 28, 2021 Brittany Banueloss [facility] 10/30/2021 3:25 PM Signed Patient calling stating she has not received a call back, Please call @ [phone] Melani Russell MD 11/19/2021 10:20 AM Signed This has been addressed through an [employer] message. Melani Russell MD, PhD Staff, Hematology and Medical Oncology Allergies As of Date: 10/28/2021 Noted Allergy Reaction CODEINE 02/01/2021 8 - GI Upset ADHESIVE TAPE-SILICONES 02/14/2021 14 - Other: See Comments Comments: Blisters Date Reviewed: 09/27/2021 Reviewed by: Aliya Jean Baptiste RN - Fully Assessed Reason for Visit: Care Coordination [0553] Prescriptions as of 11/19/2021 - sulindac (CLINORIL) [...] Status:Closed by BRITTANY LIAO on 11/01/21 Normal [facility] CNOVSPon 09-27-2021 CNOVSP Visit (SP) Office (HEMCA4) SARAVANANOSCAR GRACE ([id number]) 1985 F Date Time Provider Department 09/27/21 9:00 AM MELANI RUSSELL During your visit today, we recorded the following information about you: Pulse Respiration Blood pressure Weight 65/minute 20/minute 149/67 77.6 kg Melani Russell MD 10/07/2021 12:24 PM Signed [facility] ESTABLISHED PATIENT VISIT PATIENT NAME: Oscar Pineda [...] Melani Pérez MD Internal Medicine Resident, PGY-1 [facility] 09/27/2021 SOLID TUMOR STAFF: ATTENDING [...] No Does patient want to see a Lumber Piler? No (yes to any of (more content not included)... Normal [facility] MRI ABDOMEN WO/W IVCONon MRI ABDOMEN [...] diffusion weighted and T1 weighted in- and [id number] images were obtained. Then, using a 3-D [...] muscle mass, without evidence for residual/recurrent disease. Bonding Machine Setter: PSCB Transcribe Date/Time: Sep 20 2021 4:49P Dictated by : CHRIS MILIAN MD This examination was interpreted and the report reviewed and electronically signed by: CHRIS MILIAN MD on Sep 20 2021 4:58PM EST [id number] Normal [facility] MRI PELVIS WO/W IVCONon 03-0 MRI [...] diffusion weighted and T1 weighted in- and [id number] images were obtained. Then, using a 3-D [...] muscle mass, without evidence for residual/recurrent disease. Bonding Machine Setter: ANEL Transcribe Date/Time: Sep 20 2021 4:49P Dictated by : CHRIS MILIAN MD This examination was interpreted and the report reviewed and electronically signed by: CHRIS MILIAN MD on Sep 20 2021 4:58PM EST [id number] Normal [facility] CNPNon 08-09-2021 CNPN Telephone (HEMCA3) OSCAR PINEDA ([id number]) 1985 F Date Time Provider Department 08/09/21 [...] N/A Requesting response back: call on cell [phone] (home) [phone] (cell) Marva Gualberto Adm August 09, 2021 Chey Tamayo RN 08/09/2021 4:42 PM Signed Returned call to patient and informed her that moving her visit with Dr. Rsusell after the MRI would be best to establish a plan of care. Patient was appreciative of return call and information. Chey Tamayo RN Photocopying Equipment Mechanic August 09, 2021 Allergies As of Date: 08/09/2021 Noted Allergy Reaction CODEINE 02/01/2021 8 - GI Upset ADHESIVE TAPE-SILICONES 02/14/2021 14 - Other: See Comments Comments: Blisters Date Reviewed: 04/30/2021 Reviewed by: Magda Rose RN - Fully Assessed Reason for Visit: Care Coordination [6801] Cmt: appointment question Prescriptions as of 08/09/2021 [...] Encounter Status:Closed by [facility]ITZA [facility]GM[facility] OSCAR PINEDA ([id number]) 1985 F Date Time Provider Department 05/22/21 MELIDA QUINTERO During your visit today, we recorded the following information about you: LANETTE De Leon 05/22/2021 2:32 PM Signed Patient name and was confirmed at initiation of discussion. Oscar Pineda's Common Hereditary Cancers Panel through [employer] was negative for a pathogenic variant. Please [...] Encounter Status:Closed by MELIDA QUINTERO on 05/22/21 [facility] 05-15-2021 CNPN Telephone (HEMCA3) OSCAR PINEDA ([id number]) 1985 F Date Time Provider Department 05/15/21 [...] N/A Requesting response back: call on cell [phone] (home) [phone] (cell) Marva Burciaga Adm May 15, 2021 [...] Status:Closed by MELANI RUSSELL on 05/17/21 Normal [facility] Molecular Teston 2020 Test Common Hereditary Cancers Panel Normal [facility] Comment on above: Performed By: #### M OL13 ####[facility] [id number] [place] [address] Test Results View results in Scan zahraa Documents link when available. Normal [facility] Comment on above: Performed By: #### M OL13 ####[facility] [id number] [place] [address] Nishant 05-01-2021 NGUYENN Telephone (JULIANN) OSCAR PINEDA ([id number]) 1985 F Date Time Provider Department 05/01/21 [...] questions or concerns. Mindy Farley Genetic Counselor Manufacturing Accountant Allergies As of Date: 05/01/2021 Noted Allergy [...] Status:Closed by MINDY FARLEY on 05/01/21 Normal [facility] CBCon 04-30-2021 Absolute nRBC <0.01 Normal <0.01 [facility] Comment on above: Performed By: #### C BC ####[facility] [id number] [place], [place] [phone] Erythrocyte distribution width (RBC) [Ratio] 12.0 % Normal 11.5-15.0 [facility] Comment on above: Performed By: #### C BC ####[facility] [address] [place], [place] [phone] Hematocrit (Bld) [Volume fraction] 33.8 % Low 36.0-46.0 [facility] Comment on above: Performed By: #### C BC ####[address] [address] [place], [place] [phone] Hemoglobin (Bld) [Mass/Vol] 11.8 g/dL Normal 11.5-15.5 [facility] Comment on above: Performed By: #### C BC ####[address] [place], [place] [phone] MCH 31.5 pG Normal 26.0-34.0 [facility] Comment on above: Performed By: #### C BC ####[address] [phone] MCHC (RBC) [Mass/Vol] 34.9 g/dL Normal 30.5-36.0 [facility] Comment on above: Performed By: #### C BC ####[address] [phone] MCV (RBC) [Entitic vol] 90.1 fL Normal 80.0-100.0 [facility] Comment on above: Performed By: #### C BC ####[address] [phone] Platelet mean volume (Bld) [Entitic vol] 9.6 fL Normal 9.0-12.7 [facility] Comment on above: Performed By: #### C BC ####[address] [place], [place] [phone] Platelets (Bld) [#/Vol] 182 10*3/uL Normal 150-400 [facility] Comment on above: Performed By: #### C BC ####[address] [place], [place] [phone] RBC (Bld) [#/Vol] 3.75 10*6/uL Low 3.90-5.20 [facility] Comment on above: Performed By: #### C BC ####[facility] [address] [place], [place] [phone] WBC (Bld) [#/Vol] 12.88 10*3/uL High 3.70-11.00 [facility] Comment on above: Performed By: #### C BC ####[facility] [address] [place], [place] [phone] CNDSon 04-30-2021 CNDS HNO ID: [id number] Author: Katty Logan APRN.FURNACE HAND Service: Critical Care Author Type: Nurse Practitioner [...] air KIMBER (more content not included)... Normal [facility] THERAPY NTon 04-30-2021 THERAPY NT HNO ID: [id number] Author: Licha Llanes, PT Service: Physical Therapy Author Type: Physical Therapist Type: Therapy (PT/OT/Speech/Resp) Filed: 04/30/2021 3:02 PM Note Text: Physical Therapy Treatment SERVICE DATE: 04/30/2021 SERVICE TIME: 1342 to 1351 ROOM: [place] [address] Recommended Discharge Disposition: Home Recommended Discharge Disposition [...] gait and mobility-other Interventions Provided: Gait Training (57891) Gait Training (02502) Treatment Minutes: 9 $ Gait Training (40916) Billed Units: 1 unit Training AND education provided in: Discharge planning, Energy conservation, Exercise program, Expected functional level, Falls prevention, Gait pattern, reduction of deviations, Home safe (more content not included)... Normal [facility] ALLIED HEALTHon 04-29-2021 ALLIED HEALTH HNO ID: [id number] Author: Ana Watters RN Service: Healing Service [...] 29, 2021 TIME: 8:11 AM CONTACT #: [phone] [facility] APTTon 04-29-2021 aPTT Coag (Bld) [Time] 26.4 s Normal 23.0-32.4 [facility] Comment on above: Result Comment: Unfr [...] laboratory APTT reagent in use throughout the [facility]. 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 Last discharge within 30 days: No Advance Directive: Current Advance Directive: None Manager Infusion Attempted to Assist with AD Completion: No [...] None Has the Patient Been in a Snf Facility in the Past 30 days?: No SOCIAL: Living Arrangements: Home Lives With: Spouse Primary Contact: Extended Emergency Contact Information Primary Emergency Contact: LAURA PINEDA Address: [address] [place] [address] [facility] Mobile Relation: Spouse Supportive Patient Contact:: Yes Contact Resources: Family Family Name/Phone: LAURA PINEDA (Spouse) [phone] Caregiver AssessmentCaregiver is ready, willing and able [...] Mostly I feel financially burdened by my etr-wv-qhjfiw expenses for my prescription medication:: 0 - Disagree Mostly Risk Score: 0 Patient is categorized as: Low risk < 2 Med Adherance Assessement not completed due to: No TARGETING ACQUISITION OFFICER meds Are you interested in bedside delivery of your medications? Yes Is Patient Psychosocially Complex?: No ASSESSMENT AND PLAN: Medical Needs: Medical Needs: None Psychosocial Needs: Psychosocial Needs: None FREEDOM OF CHOICE EXPLAINED: [place] of Choice Given: No Reason Not Given: No placements necessary POTENTIAL TRANSITION PLANS No Services Indicated SIGNATURE: Rocio Bear RN MSN PATIENT NAME: Oscar Pineda DATE: April 29, 2021 TIME: 11:53 AM PAGER/CONTACT #: [phone] Normal [facility] CBCon 04-29-2021 Absolute nRBC <0.01 Normal <0.01 [facility] Comment on above: Performed By: #### C BC, MG1, PHOS, PTT, CMP, PT ####[facility] [address] [place], [place] [phone] Erythrocyte distribution width (RBC) [Ratio] 11.8 % Normal 11.5-15.0 [facility] Comment on above: Performed By: #### C BC, MG1, PHOS, PTT, CMP, PT ####[place] [address] [address] [place] [phone] Hematocrit (Bld) [Volume fraction] 37.0 % Normal 36.0-46.0 [facility] Comment on above: Performed By: #### C BC, MG1, PHOS, PTT, CMP, PT ####[place] [address] [address] [place] [phone] Hemoglobin (Bld) [Mass/Vol] 12.3 g/dL Normal 11.5-15.5 [facility] Comment on above: Performed By: #### C BC, MG1, PHOS, PTT, CMP, PT ####[place] [address] [address] [place] [phone] MCH 30.9 pG Normal 26.0-34.0 [facility] Comment on above: Performed By: #### C BC, MG1, PHOS, PTT, CMP, PT ####[place] [address] [address] [place] [phone] MCHC (RBC) [Mass/Vol] 33.2 g/dL Normal 30.5-36.0 [facility] Comment on above: Performed By: #### C BC, MG1, PHOS, PTT, CMP, PT ####[place] [address] [address] [phone] MCV (RBC) [Entitic vol] 93.0 fL Normal 80.0-100.0 [facility] Comment on above: Performed By: #### C BC, MG1, PHOS, PTT, CMP, PT ####[place] [address] [address] [place] [phone] Platelet mean volume (Bld) [Entitic vol] 10.0 fL Normal 9.0-12.7 [facility] Comment on above: Performed By: #### C BC, MG1, PHOS, PTT, CMP, PT ####[facility], [place] [phone] Platelets (Bld) [#/Vol] 188 10*3/uL Normal 150-400 [facility] Comment on above: Performed By: #### C BC, MG1, PHOS, PTT, CMP, PT ####[place] [address] [address], [place] [phone] RBC (Bld) [#/Vol] 3.98 10*6/uL Normal 3.90-5.20 [facility] Comment on above: Performed By: #### C BC, MG1, PHOS, PTT, CMP, PT ####[place] [address] [address], [place] [phone] WBC (Bld) [#/Vol] 11.41 10*3/uL High 3.70-11.00 [facility] Comment on above: Performed By: #### C BC, MG1, PHOS, PTT, CMP, PT ####[place] [address] [address], [place] [phone] Comp Metabolic Panelon 04-29 Albumin [Mass/Vol] 3.5 g/dL Low 3.9-4.9 [facility] Comment on above: Performed By: #### C BC, MG1, PHOS, PTT, CMP, PT ####[place] [address] [address], [place] [phone] ALP [Catalytic activity/Vol] 43 U/L Normal 34-123 [facility] Comment on above: Performed By: #### C BC, MG1, PHOS, PTT, CMP, PT ####[place] [address], [place] [phone] ALT [Catalytic activity/Vol] 56 U/L High 7-38 [facility] Comment on above: Performed By: #### C BC, MG1, PHOS, PTT, CMP, PT ####[place] [address]CB[address], [place] [phone] Anion gap [Moles/Vol] 14 mmol/L Normal 9-18 [facility] Comment on above: Performed By: #### C BC, MG1, PHOS, PTT, CMP, PT ####[place] [address] [address], [place] [phone] AST [Catalytic activity/Vol] 171 U/L High 13-35 [facility] Comment on above: Performed By: #### C BC, MG1, PHOS, PTT, CMP, PT ####[place] [address] [address], [place] [phone] Bilirubin [Mass/Vol] 0.6 mg/dL Normal 0.2-1.3 [facility] Comment on above: Performed By: #### C BC, MG1, PHOS, PTT, CMP, PT ####[place] [address] [address], [place] [phone] Calcium [Mass/Vol] 8.3 mg/dL Low 8.5-10.2 [facility] Comment on above: Performed By: #### C BC, MG1, PHOS, PTT, CMP, PT ####[place] [address] [address], [place] [phone] Chloride [Moles/Vol] 100 mmol/L Normal 97-105 [facility] Comment on above: Performed By: #### C BC, MG1, PHOS, PTT, CMP, PT ####[place] [address]CB[address], [place] [phone] CO2 [Moles/Vol] 25 mmol/L Normal 22-30 [facility] Comment on above: Performed By: #### C BC, MG1, PHOS, PTT, CMP, PT ####[place] [address], [place] [phone] Creatinine [Mass/Vol] 0.78 mg/dL Normal 0.58-0.96 [facility] Comment on above: Performed By: #### C BC, MG1, PHOS, PTT, CMP, PT ####[facility] [place], [place] [phone] eGFR- Amer. >[address] [facility] Comment on above: Performed By: #### C BC, MG1, PHOS, PTT, CMP, PT ####[facility] [place], [place] [phone] eGFR-All Other Races >60 Normal [facility] Comment on above: Result Comment: eGFR [...] C BC, MG1, PHOS, PTT, CMP, PT ####[place] [address] [place], [place] [phone] Glucose [Mass/Vol] 167 mg/dL High 74-99 [facility] Comment on above: Result Comment: The [place] [employer] (ADA) provides guidance for cutoff [...] Standards of Medical Care in Diabetes 2016, [place] [employer]. Diabetes Care. 2016.39(Suppl 1). Performed By: #### C BC, MG1, PHOS, PTT, CMP, PT ####[place] [address] [address], [place] [phone] Potassium [Moles/Vol] 3.9 mmol/L Normal 3.7-5.1 [facility] Comment on above: Performed By: #### C BC, MG1, PHOS, PTT, CMP, PT ####[address] AvJustin V[place] [phone] Protein [Mass/Vol] 6.0 g/dL Low 6.3-8.0 [facility] Comment on above: Performed By: #### C BC, MG1, PHOS, PTT, CMP, PT ####[place] [phone] Sodium [Moles/Vol] 139 mmol/L Normal 136-144 [facility] Comment on above: Performed By: #### C BC, MG1, PHOS, PTT, CMP, PT ####[address] Av[address]ed[address], [place] [phone] Urea nitrogen [Mass/Vol] 9 mg/dL Normal 7-21 [facility] Comment on above: Performed By: #### C BC, MG1, PHOS, PTT, CMP, PT ####[address] [phone] GASV + ALLon 04-29-2021 Base Excess 4 mmol/L Normal [facility] Comment on above: Performed By: #### V ALLBG ####[address] [phone] Calcium [Moles/Vol] 1.15 mmol/L Normal 1.08-1.30 [facility] Comment on above: Performed By: #### V ALLBG ####[address] [phone] Carboxyhemoglobin, Ziyad 1.2 % Normal <2.1 [facility] Comment on above: Performed By: #### V ALLBG ####[place] [address] [place] [phone] CO2 [Moles/Vol] 31 mmol/L High 25-29 [facility] Comment on above: Performed By: #### V ALLBG ####[place] [address] [address] [phone] Glucose [Mass/Vol] 178 mg/dL High 60-105 [facility] Comment on above: Performed By: #### V ALLBG ####[place] [address] [address] [place] [phone] HCO3 (Bld) [Moles/Vol] 29 mmol/L High 24-28 [facility] Comment on above: Performed By: #### V ALLBG ####[place] [address] [address] [place] [phone] Lactate [Moles/Vol] 1.3 mmol/L Normal 0.5-2.2 [facility] Comment on above: Performed By: #### V ALLBG ####[place] [address] [address] [place] [phone] Methemoglobin 0.7 % Normal <1.6 [facility] Comment on above: Performed By: #### V ALLBG ####[place] [address] [address] [phone] O2 Administered 40% Normal [facility] Comment on above: Performed By: #### V ALLBG ####[place] [address] [address] [place] [phone] pCO2 51 mm Hg Normal 42-55 [facility] Comment on above: Performed By: #### V ALLBG ####[place] [address] [place] [phone] pCO2, Temp Correct 51 mm Hg Normal 42-55 [facility] Comment on above: Performed By: #### V ALLBG ####[facility], [place] [phone] Potassium [Moles/Vol] 4.0 mmol/L Normal 3.5-5.0 [facility] Comment on above: Performed By: #### V ALLBG ####[place] [address], [place] [phone] Base Excess 3 mmol/L Normal [facility] Comment on above: Performed By: #### V ALLBG ####[facility], [place] [phone] Blood Gas Comm, Ziyad . Normal [facility] Comment on above: Performed By: #### V ALLBG ####[place] [address] [address], [place] [phone] Body temperature 98.6 [degF] Normal [facility] Comment on above: Performed By: #### V ALLBG ####[place] [address] [address], [place] [phone] Calcium [Moles/Vol] 1.18 mmol/L Normal 1.08-1.30 [facility] Comment on above: Performed By: #### V ALLBG ####[place] [address] [address], [place] [phone] Carboxyhemoglobin, Ziyad 0.9 % Normal <2.1 [facility] Comment on above: Performed By: #### V ALLBG ####[facility], [place] [phone] CO2 [Moles/Vol] 30 mmol/L High 25-29 [facility] Comment on above: Performed By: #### V ALLBG ####[place] [address] [address], [place] [phone] Glucose [Mass/Vol] 193 mg/dL High 60-105 [facility] Comment on above: Performed By: #### V ALLBG ####[place] [address] [address] [place] [phone] HCO3 (Bld) [Moles/Vol] 28 mmol/L Normal 24-28 [facility] Comment on above: Performed By: #### V ALLBG ####[place] [address] [address] [place] [phone] Hematocrit (Bld) [Volume fraction] 39.0 % Normal 36.0-46.0 [facility] Comment on above: Performed By: #### V ALLBG ####[place] [address] [address] [place] [phone] Hemoglobin (Bld) [Mass/Vol] 12.7 g/dL Normal 11.5-15.5 [facility] Comment on above: Performed By: #### V ALLBG ####[place] [address] [address] [place] [phone] Lactate [Moles/Vol] 1.6 mmol/L Normal 0.5-2.2 [facility] Comment on above: Performed By: #### V ALLBG ####[place] [address] [address] [place] [phone] Methemoglobin 1.0 % Normal <1.6 [facility] Comment on above: Performed By: #### V ALLBG ####[place] [address] [address] [place] [phone] O2 Administered 30% Normal [facility] Comment on above: Performed By: #### V ALLBG ####[place] [address] [address] [place] [phone] Oxyhemoglobin, Ziyad. 78 % Normal 60-85 [facility] Comment on above: Performed By: #### V ALLBG ####[place] [address] [address], [place] [phone] pCO2 49 mm Hg Normal 42-55 [facility] Comment on above: Performed By: #### V ALLBG ####[place] [address], [place] [phone] pCO2, Temp Correct 49 mm Hg Normal 42-55 [facility] Comment on above: Performed By: #### V ALLBG ####[place] [address], [place] [phone] pH (Bld) 7.38 [pH] Normal 7.32-7.42 [facility] Comment on above: Performed By: #### V ALLBG ####[place] [address] [address], [place] [phone] pH, Temp Corrected 7.38 Normal 7.32-7.42 [facility] Comment on above: Performed By: #### V ALLBG ####[place] [address] [address], [place] [phone] pO2 46 mm Hg High 35-45 [facility] Comment on above: Performed By: #### V ALLBG ####[place] [address] [address] [place], [place] [phone] pO2, Temp Corrected 46 mm Hg High 35-45 [facility] Comment on above: Performed By: #### V ALLBG ####[place] [address] [address] [place], [place] [phone] Potassium [Moles/Vol] 4.3 mmol/L Normal 3.5-5.0 [facility] Comment on above: Performed By: #### V ALLBG ####[place] [address] [address], [place] [phone] Sodium [Moles/Vol] 141 mmol/L Normal 136-144 [facility] Comment on above: Performed By: #### V ALLBG ####[address] [phone] Magnesiumon 04-29-2021 Magnesium [Mass/Vol] 1.8 mg/dL Normal 1.7-2.3 [facility] Comment on above: Performed By: #### C BC, MG1, PHOS, PTT, CMP, PT ####[facility] [address] [place], [place] [phone] NURSING PROGon 04-29-2021 NURSING PROG HNO ID: [id number] Author: Magda Rose RN Service: ? Author Type: Registered Nurse Type: Nursing Progress Note Filed: 04/29/2021 7:45 AM Note Text: Nursing Progress: Topic: RESTRAINT NON-VIOLENT PATIENT NAME: Oscar Pineda PATIENT LOCATION: [place] [address] The patient demonstrates Attempting to Remove Medical [...] TIME: 7:44 AM Diane Rose RN Normal [facility] Phosphoruson 04-29-2021 Phosphate [Mass/Vol] 3.2 mg/dL Normal 2.7-4.8 [facility] Comment on above: Performed By: #### C BC, MG1, PHOS, PTT, CMP, PT ####[facility] [address] [place], [place] [phone] Protimeon 04-29-2021 PT INR 1.0 Normal 0.9-1.3 [facility] Comment on above: Result Comment: Nhea min K Antagonist (VKA) Therapeutic Range: INR 2 to 3 (Target INR of 2.5) Note: For patients treated with VKA drugs, such as warfarin, the [employer] 2012 Guideline recommends [...] Chest 2012, 141:7S-47S Daphne RA, et al. [facility] 2017, 70: 252-289 Performed By: #### C BC, MG1, PHOS, PTT, CMP, PT ####[facility] [place], [place] [phone] PT Sec 11.0 sec Normal 9.7-13.0 [facility] Comment on above: Performed By: #### C BC, MG1, PHOS, PTT, CMP, PT ####[facility] [place], [place] [phone] THERAPY NTon 04-29-2021 THERAPY NT HNO ID: [id number] Author: Neela Prasad, PT Service: Physical Therapy Author Type: Physical Therapist Type: Therapy (PT/OT/Speech/Resp) Filed: 04/29/2021 10:05 AM Note Text: Physical Therapy Evaluation SERVICE DATE: 04/29/2021 SERVICE TIME: 907 to 945 ROOM: [place] [address] Recommended Discharge Disposition: Home Recommended Discharge Disposition [...] trunk posture;Step length decreased;Non-functiona l gait speed [facility]: 7: Walk 25 feet or more Learning/Educational [...] Diagnosis: Reduced mobility-other Interventions Provided: Evaluation;Gait Training (78648);Therapeutic Activity (00405) $ Evaluation-Moderate (19510) Billed Units: 1 unit Therapeutic Activity (40565) Treatment Minutes: 8 $ Therapeutic Activity (59118) Billed Units: 1 unit Gait Training (52754) Treatment Minutes: 15 $ Gait Training (77136) Billed Units: 1 unit Training AND education provided in: Bed mobility, Benefits of in-hospital mobility, Discharge planning, Energy conservation, Expected functional level, Gait pattern, reduction of deviations, Positioning, Precautions/restriction s, Role of Physical Therapy, Sitting balance, Standing balance, Transfers, Treatment protocol, Equipment, Assistive device use The following therapeutic skills were used: Activity dosing, Assessment of tolerance includi (more content not included)... Normal [facility] Type and Screenon 04-29-2021 ABO/RH(D) Positive Normal [facility] Comment on above: Performed By: #### T SCR ####[facility] [address] [place], [place] [phone] APTTon 04-28-2021 aPTT Coag (Bld) [Time] 26.6 s Normal 23.0-32.4 [facility] Comment on above: Result Comment: Unfr [...] laboratory APTT reagent in use throughout the [facility]. Performed By: #### P T, PTT, TRIG, CMP, CBC, MG1, PHOS ####[place] [address] [address], [place] [phone] Blood Cultureon 04-28-2021 Bacteria identified Cx Nom (Bld) Culture Result - No growth 5 days Normal [facility] Comment on above: Performed By: #### B LCUL ####[place] [address] [address] [place] [phone] Bacteria identified Cx Nom (Bld) Culture Result - No growth 5 days Normal [facility] Comment on above: Performed By: #### B LCUL ####[place] [address] [place] [phone] CBCon 04-28-2021 Absolute nRBC <0.01 Normal <0.01 [facility] Comment on above: Performed By: #### P T, PTT, TRIG, CMP, CBC, MG1, PHOS ####[place] [address] [address] [phone] Erythrocyte distribution width (RBC) [Ratio] 12.4 % Normal 11.5-15.0 [facility] Comment on above: Performed By: #### P T, PTT, TRIG, CMP, CBC, MG1, PHOS ####[address] [place] [phone] Hematocrit (Bld) [Volume fraction] 36.1 % Normal 36.0-46.0 [facility] Comment on above: Performed By: #### P T, PTT, TRIG, CMP, CBC, MG1, PHOS ####[place] [address] [address] [place] [phone] Hemoglobin (Bld) [Mass/Vol] 11.8 g/dL Normal 11.5-15.5 [facility] Comment on above: Performed By: #### P T, PTT, TRIG, CMP, CBC, MG1, PHOS ####[place] [address] [place], [place] [phone] MCH 30.9 pG Normal 26.0-34.0 [facility] Comment on above: Performed By: #### P T, PTT, TRIG, CMP, CBC, MG1, PHOS ####[place] [address], [place] [phone] MCHC (RBC) [Mass/Vol] 32.7 g/dL Normal 30.5-36.0 [facility] Comment on above: Performed By: #### P T, PTT, TRIG, CMP, CBC, MG1, PHOS ####[address] [phone] MCV (RBC) [Entitic vol] 94.5 fL Normal 80.0-100.0 [facility] Comment on above: Performed By: #### P T, PTT, TRIG, CMP, CBC, MG1, PHOS ####[address] [phone] Platelet mean volume (Bld) [Entitic vol] 9.8 fL Normal 9.0-12.7 [facility] Comment on above: Performed By: #### P T, PTT, TRIG, CMP, CBC, MG1, PHOS ####[address] [place], [place] [phone] Platelets (Bld) [#/Vol] 178 10*3/uL Normal 150-400 [facility] Comment on above: Performed By: #### P T, PTT, TRIG, CMP, CBC, MG1, PHOS ####[place] [address] [address], [place] [phone] RBC (Bld) [#/Vol] 3.82 10*6/uL Low 3.90-5.20 [facility] Comment on above: Performed By: #### P T, PTT, TRIG, CMP, CBC, MG1, PHOS ####[place] [address] [address], [place] [phone] WBC (Bld) [#/Vol] 11.29 10*3/uL High 3.70-11.00 [facility] Comment on above: Performed By: #### P T, PTT, TRIG, CMP, CBC, MG1, PHOS ####[facility] [address], [place] [phone] CT ABD/PEL W IVCONon 021 CT ABD/PEL W IVCON * * *Final Report* * * DATE OF EXAM: Apr 28 2021 2:10PM [facility] [id number] - CT ABD/PEL W IVCON / [...] chest CT performed will be reported separately. Bull Gang Supervisor (topogram) images: No additional findings. IMPRESSION: Resolution of intravenous gas within the abdomen and pelvis. 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 Bonding Machine Setter: PSCB Transcribe Date/Time: Apr 28 2021 2:50P Dictated by : KASHMIR RIVERA MD This examination was interpreted and the report reviewed and electronically signed by: ELIAS WOODY MD on Apr 28 2021 4:13PM EST [id number] Normal [facility] CT CHEST W IVCONon CT CHEST W IVCON * * *Final Report* * * DATE OF EXAM: Apr 28 2021 2:10PM [facility] [id number] - CT CHEST W IVCON / [...] There is minimal intrahepatic biliary ductal dilation. Bull Gang Supervisor (topogram) images: No additional findings. IMPRESSION: 1. No CT evidence of air embolism within the systemic veins, right-sided heart chambers, central pulmonary arteries and hepatic veins. 2. Posterior complete LEFT lower lobe, partially dependent RIGHT lower lobe and dependent LEFT upper lobe atelectasis. Given the distribution, this finding may be related to aspiration. Trace bilateral pleural effusions. Bonding Machine Setter: ANEL Transcribe Date/Time: Apr 28 2021 3:35P Dictated by : MICHELLE PETERSEN MD This examination was interpreted and the report reviewed and electronically signed by: MICHELLE PETERSEN MD on Apr 28 2021 3:45PM EST [id number] Normal [facility] Comp Metabolic Panelon 04-28 Albumin [Mass/Vol] 3.0 g/dL Low 3.9-4.9 [facility] Comment on above: Performed By: #### P T, PTT, TRIG, CMP, CBC, MG1, PHOS ####[facility] [id number] [place], [place] [phone] ALP [Catalytic activity/Vol] 36 U/L Normal 34-123 [facility] Comment on above: Performed By: #### P T, PTT, TRIG, CMP, CBC, MG1, PHOS ####[facility] [place], [place] [phone] ALT [Catalytic activity/Vol] 32 U/L Normal 7-38 [facility] Comment on above: Performed By: #### P T, PTT, TRIG, CMP, CBC, MG1, PHOS ####[place] [address] [address], [place] [phone] Anion gap [Moles/Vol] 10 mmol/L Normal 9-18 [facility] Comment on above: Performed By: #### P T, PTT, TRIG, CMP, CBC, MG1, PHOS ####[address] [phone] AST [Catalytic activity/Vol] 102 U/L High 13-35 [facility] Comment on above: Performed By: #### P T, PTT, TRIG, CMP, CBC, MG1, PHOS ####[address], [place] [phone] Bilirubin [Mass/Vol] 0.3 mg/dL Normal 0.2-1.3 [facility] Comment on above: Performed By: #### P T, PTT, TRIG, CMP, CBC, MG1, PHOS ####[address] [phone] Calcium [Mass/Vol] 7.9 mg/dL Low 8.5-10.2 [facility] Comment on above: Performed By: #### P T, PTT, TRIG, CMP, CBC, MG1, PHOS ####[address] [phone] Chloride [Moles/Vol] 107 mmol/L High 97-105 [facility] Comment on above: Performed By: #### P T, PTT, TRIG, CMP, CBC, MG1, PHOS ####[place] [address] [address], [place] [phone] CO2 [Moles/Vol] 25 mmol/L Normal 22-30 [facility] Comment on above: Performed By: #### P T, PTT, TRIG, CMP, CBC, MG1, PHOS ####[place] [address] [address], [place] [phone] Creatinine [Mass/Vol] 0.85 mg/dL Normal 0.58-0.96 [facility] Comment on above: Performed By: #### P T, PTT, TRIG, CMP, CBC, MG1, PHOS ####[facility] [place], [place] [phone] eGFR- Amer. >[address] [facility] Comment on above: Performed By: #### P T, PTT, TRIG, CMP, CBC, MG1, PHOS ####[facility] [place] [address] [phone] eGFR-All Other Races >60 Normal [facility] Comment on above: Result Comment: eGFR [...] T, PTT, TRIG, CMP, CBC, MG1, PHOS ####[place] [address] [place], [place] [phone] Glucose [Mass/Vol] 86 mg/dL Normal 74-99 [facility] Comment on above: Result Comment: The [place] [employer] (ADA) provides guidance for cutoff [...] Standards of Medical Care in Diabetes 2016, [place] [employer]. Diabetes Care. 2016.39(Suppl 1). Performed By: #### P T, PTT, TRIG, CMP, CBC, MG1, PHOS ####[address] [phone] Potassium [Moles/Vol] 3.8 mmol/L Normal 3.7-5.1 [facility] Comment on above: Performed By: #### P T, PTT, TRIG, CMP, CBC, MG1, PHOS ####[place] [phone] Protein [Mass/Vol] 5.2 g/dL Low 6.3-8.0 [facility] Comment on above: Performed By: #### P T, PTT, TRIG, CMP, CBC, MG1, PHOS ####[address] [phone] Sodium [Moles/Vol] 142 mmol/L Normal 136-144 [facility] Comment on above: Performed By: #### P T, PTT, TRIG, CMP, CBC, MG1, PHOS ####[place] [phone] Urea nitrogen [Mass/Vol] 15 mg/dL Normal 7-21 [facility] Comment on above: Performed By: #### P T, PTT, TRIG, CMP, CBC, MG1, PHOS ####[address] [phone] GASV + ALLon 04-28-2021 Base Excess 2 mmol/L Normal [facility] Comment on above: Performed By: #### V ALLBG ####[address] [phone] Blood Gas Comm, Ziyad . Normal [facility] Comment on above: Performed By: #### V ALLBG ####[address] [phone] Body temperature 98.6 [degF] Normal [facility] Comment on above: Performed By: #### V ALLBG ####[place] [address] [address] [place], [place] [phone] Calcium [Moles/Vol] 1.18 mmol/L Normal 1.08-1.30 [facility] Comment on above: Performed By: #### V ALLBG ####[place] [address] [address], [place] [phone] Carboxyhemoglobin, Ziyad 0.7 % Normal <2.1 [facility] Comment on above: Performed By: #### V ALLBG ####[place] [address] [address] [place], [place] [phone] CO2 [Moles/Vol] 30 mmol/L High 25-29 [facility] Comment on above: Performed By: #### V ALLBG ####[place] [address] [address] [place], [place] [phone] Glucose [Mass/Vol] 90 mg/dL Normal 60-105 [facility] Comment on above: Performed By: #### V ALLBG ####[place] [address] [address], [place] [phone] HCO3 (Bld) [Moles/Vol] 29 mmol/L High 24-28 [facility] Comment on above: Performed By: #### V ALLBG ####[place] [address] [address] [place], [place] [phone] Hematocrit (Bld) [Volume fraction] 37.7 % Normal 36.0-46.0 [facility] Comment on above: Performed By: #### V ALLBG ####[place] [address] [address] [place], [place] [phone] Hemoglobin (Bld) [Mass/Vol] 12.3 g/dL Normal 11.5-15.5 [facility] Comment on above: Performed By: #### V ALLBG ####[place] [address] [address], [place] [phone] Lactate [Moles/Vol] 0.9 mmol/L Normal 0.5-2.2 [facility] Comment on above: Performed By: #### V ALLBG ####[place] [address] [address], [place] [phone] Methemoglobin 1.5 % Normal <1.6 [facility] Comment on above: Performed By: #### V ALLBG ####[place] [address] [address] [phone] O2 Administered 100% Normal [facility] Comment on above: Performed By: #### V ALLBG ####[place] [address] [address] [place] [phone] Oxyhemoglobin, Ziyad. 83 % Normal 60-85 [facility] Comment on above: Performed By: #### V ALLBG ####[place] [address] [address] [phone] pCO2 57 mm Hg High 42-55 [facility] Comment on above: Performed By: #### V ALLBG ####[place] [address] [address] [phone] pCO2, Temp Correct 57 mm Hg High 42-55 [facility] Comment on above: Performed By: #### V ALLBG ####[place] [address] [address] [phone] pH (Bld) 7.32 [pH] Normal 7.32-7.42 [facility] Comment on above: Performed By: #### V ALLBG ####[place] [address] [address], [place] [phone] pH, Temp Corrected 7.32 Normal 7.32-7.42 [facility] Comment on above: Performed By: #### V ALLBG ####[place] [address] [address], [place] [phone] pO2 54 mm Hg High 35-45 [facility] Comment on above: Performed By: #### V ALLBG ####[place] [address] [place], [place] [phone] pO2, Temp Corrected 54 mm Hg High 35-45 [facility] Comment on above: Performed By: #### V ALLBG ####[address] [phone] Potassium [Moles/Vol] 3.8 mmol/L Normal 3.5-5.0 [facility] Comment on above: Performed By: #### V ALLBG ####[place] [address] [place], [place] [phone] Sodium [Moles/Vol] 142 mmol/L Normal 136-144 [facility] Comment on above: Performed By: #### V ALLBG ####[address] [phone] Magnesiumon 04-28-2021 Magnesium [Mass/Vol] 2.0 mg/dL Normal 1.7-2.3 [facility] Comment on above: Performed By: #### P T, PTT, TRIG, CMP, CBC, MG1, PHOS ####[address] [phone] NURSING PROGon 04-28-2021 NURSING PROG HNO ID: [id number] Author: Laura Mullins, JOSE Service: ? Author Type: Registered Nurse Type: Nursing Progress Note Filed: 04/28/2021 8:01 PM Note Text: Nursing Progress: Topic: RESTRAINT NON-VIOLENT PATIENT NAME: Oscar Pineda PATIENT LOCATION: [place] [address] The patient demonstrates Attempting to Remove Medical [...] 2021 TIME: 8:01 PM Laura Mullins RN [facility] NURSING PROG HNO ID: [id number] Author: Rob Guerra RN Service: Radiology Author [...] DATE: April 28, 2021 TIME: 2:08 PM [facility] NURSING PROG HNO ID: [id number] Author: Yumiko Molina RN Service: ? Author Type: Registered Nurse Type: Nursing Progress Note Filed: 04/28/2021 2:57 PM Note Text: Nursing Progress Note Patient Name: Oscar Pineda Patient Location: [place] [address] 1200 IR at bedside, advised transfer to CT table while still in trendelenburg trial patient supine, still in trendelenburg. Tolerating [address], notified of positioning requirements 1345 DOLL SURGEON, resident, two RT's, and two RN's at bedside for transport. Pt on telemetry/ continuous monitoring. CT and IR LIP notified. [address] imaging table, trendelenburg positioning maintained [address] and gave verbal OK to transition HOB flat then elevated (as tolerated) 1420 patient in SICU, HOB flat. Tolerating This note was completed by: Yumiko Molina [facility] NURSING PROG HNO ID: [id number] Author: Yumiko Molina RN Service: ? Author Type: Registered Nurse Type: Nursing Progress Note Filed: 04/28/2021 1:22 PM Note Text: Nursing Progress: Topic: RESTRAINT NON-VIOLENT PATIENT NAME: Oscar Pineda PATIENT LOCATION: G053 [id number]/G053-09 The patient demonstrates Attempting to Remove Medical Devices Vital to Medical Stability as evidenced by the following behaviors attempting to remove medical sales specialist which pose an imminent danger to [...] 2021 TIME: 8:00AM Yumiko Molina RN Normal [facility] Phosphoruson 04-28-2021 Phosphate [Mass/Vol] 2.3 mg/dL Low 2.7-4.8 [facility] Comment on above: Performed By: #### P T, PTT, TRIG, CMP, CBC, MG1, PHOS ####[facility] [place], [place] [phone] Protimeon 04-28-2021 PT INR 1.0 Normal 0.9-1.3 [facility] Comment on above: Result Comment: Neha min K Antagonist (VKA) Therapeutic Range: INR 2 to 3 (Target INR of 2.5) Note: For patients treated with VKA drugs, such as warfarin, the [employer] 2012 Guideline recommends [...] Chest 2012, 141:7S-47S Daphne PEDERSON et al. [facility] 2017, 70: 252-289 Performed By: #### P T, PTT, TRIG, CMP, CBC, MG1, PHOS ####[facility] [place], [place] [phone] PT Sec 11.0 sec Normal 9.7-13.0 [facility] Comment on above: Performed By: #### P T, PTT, TRIG, CMP, CBC, MG1, PHOS ####[facility] [place], [place] [phone] Respiratory Cult/Stainon Respiratory Cult/Stain Sp. Request/Comment: - Specimen received in sterile container. Smear Result - Rare Mixed oral kaylynn Many Polymorphonuclear leukocytes Rare Epithelial cells Culture Result - Few Staphylococcus aureus --> ABNORMAL ALERT Insignificant colony count. No further workup. --> ABNORMAL ALERT Few Normal respiratory kaylynn present Critically abnormal [facility] Comment on above: Performed By: #### R CULST ####[address] [phone] Triglycerideon 04-28-2021 Fasting Time Unknown Normal [facility] Comment on above: Performed By: #### P T, PTT, TRIG, CMP, CBC, MG1, PHOS ####[place] [address] [place], [place] [phone] Triglyceride [Mass/Vol] 155 mg/dL High <150 [facility] Comment on above: Result Comment: <150 mg/dL, Normal 150-199 mg/dL, Borderline high 200-499 mg/dL, High >499 mg/dL, Very high Reference: 1. National Cholesterol Education Program ATP III Guideline At-A-Glance Quick Desk Reference: National Heart, Lung, and Blood [place]. National Institutes of Health. 2001: NIH Publication No. 01-3305. Performed By: #### P T, PTT, TRIG, CMP, CBC, MG1, PHOS ####[place] [address] [place], [place] [phone] Urinalysison 04-28-2021 Bilirubin, Urine Negative Normal Negative [facility] Comment on above: Performed By: #### U A ####[place] [address] [place] [phone] Clarity (U) Clear Normal Clear [facility] Comment on above: Performed By: #### U A ####[place] [phone] Color (U) Light Yellow Critically abnormal Yellow [facility] Comment on above: Performed By: #### U A ####[place] [phone] Comments SEE COMMENT Normal [facility] Comment on above: Result Comment: Micr oscopic not warranted Performed By: #### U A ####[place] [phone] Glucose Ql (U) Negative Normal Negative [facility] Comment on above: Performed By: #### U A ####[place] [phone] Hemoglobin/Blood,U r Negative Normal Negative [facility] Comment on above: Performed By: #### U A ####[place] [phone] Ketones Ql (U) 1+ Critically abnormal Negative [facility] Comment on above: Performed By: #### U A ####[place] [phone] Leukest Negative Normal Negative [facility] Comment on above: Performed By: #### U A ####[place] [address] [place] [address] [phone] Nitrite Ql (U) Negative Normal Negative [facility] Comment on above: Performed By: #### U A ####[place] [phone] pH (U) 5.0 [pH] Normal 5.0-8.0 [facility] Comment on above: Performed By: #### U A ####[place] [address] [address], [place] [phone] Protein, Urine Negative Normal Negative [facility] Comment on above: Performed By: #### U A ####[place] [address] [place], [place] [phone] Specific [place], Ur 1.023 Normal 1.005-1.030 [facility] Comment on above: Performed By: #### U A ####[place] [address] [address] [place], [place] [phone] Urine Karl Comment SEE COMMENT Normal [facility] Comment on above: Result Comment: N/A Performed By: #### U A ####[place] [address] [address], [place] [phone] Urobilinogen (U) [Mass/Vol] Negative Normal Negative [facility] Comment on above: Performed By: #### U A ####[place] [address] [address] [place] [address], [place] [phone] APTTon 04-27-2021 aPTT Coag (Bld) [Time] 21.9 s Low 23.0-32.4 [facility] Comment on above: Result Comment: Unfr [...] laboratory APTT reagent in use throughout the [facility]. Performed By: #### P HOS, CMP, PTT, CBC, MG1, PT ####[place] [address] [place], [place] [phone] CBCon 10-09-2021 Absolute nRBC <0.01 Normal <0.01 [facility] Comment on above: Performed By: #### P HOS, CMP, PTT, CBC, MG1, PT ####[place] [address] [address] [place] [phone] Erythrocyte distribution width (RBC) [Ratio] 11.9 % Normal 11.5-15.0 [facility] Comment on above: Performed By: #### P HOS, CMP, PTT, CBC, MG1, PT ####[address] [place] [phone] Hematocrit (Bld) [Volume fraction] 39.3 % Normal 36.0-46.0 [facility] Comment on above: Performed By: #### P HOS, CMP, PTT, CBC, MG1, PT ####[place] [phone] Hemoglobin (Bld) [Mass/Vol] 13.3 g/dL Normal 11.5-15.5 [facility] Comment on above: Performed By: #### P HOS, CMP, PTT, CBC, MG1, PT ####[place] [phone] MCH 31.0 pG Normal 26.0-34.0 [facility] Comment on above: Performed By: #### P HOS, CMP, PTT, CBC, MG1, PT ####[address] [phone] MCHC (RBC) [Mass/Vol] 33.8 g/dL Normal 30.5-36.0 [facility] Comment on above: Performed By: #### P HOS, CMP, PTT, CBC, MG1, PT ####[place] [address] [address] [place] [phone] MCV (RBC) [Entitic vol] 91.6 fL Normal 80.0-100.0 [facility] Comment on above: Performed By: #### P HOS, CMP, PTT, CBC, MG1, PT ####[place] [address] [address], [place] [phone] Platelet mean volume (Bld) [Entitic vol] 9.8 fL Normal 9.0-12.7 [facility] Comment on above: Performed By: #### P HOS, CMP, PTT, CBC, MG1, PT ####[address], [place] [phone] Platelets (Bld) [#/Vol] 242 10*3/uL Normal 150-400 [facility] Comment on above: Performed By: #### P HOS, CMP, PTT, CBC, MG1, PT ####[address], [place] [phone] RBC (Bld) [#/Vol] 4.29 10*6/uL Normal 3.90-5.20 [facility] Comment on above: Performed By: #### P HOS, CMP, PTT, CBC, MG1, PT ####[address] [phone] WBC (Bld) [#/Vol] 17.39 10*3/uL High 3.70-11.00 [facility] Comment on above: Performed By: #### P HOS, CMP, PTT, CBC, MG1, PT ####[address] [phone] Comp Metabolic Panelon 04-27 Albumin [Mass/Vol] 3.9 g/dL Normal 3.9-4.9 [facility] Comment on above: Performed By: #### P HOS, CMP, PTT, CBC, MG1, PT ####[address], [place] [phone] ALP [Catalytic activity/Vol] 41 U/L Normal 34-123 [facility] Comment on above: Performed By: #### P HOS, CMP, PTT, CBC, MG1, PT ####[facility], [place] [phone] ALT [Catalytic activity/Vol] 26 U/L Normal 7-38 [facility] Comment on above: Performed By: #### P HOS, CMP, PTT, CBC, MG1, PT ####[place] [address] [address], [place] [phone] Anion gap [Moles/Vol] 10 mmol/L Normal 9-18 [facility] Comment on above: Performed By: #### P HOS, CMP, PTT, CBC, MG1, PT ####[place] [address] [address], [place] [phone] AST [Catalytic activity/Vol] 63 U/L High 13-35 [facility] Comment on above: Performed By: #### P HOS, CMP, PTT, CBC, MG1, PT ####[place] [address], [place] [phone] Bilirubin [Mass/Vol] 0.5 mg/dL Normal 0.2-1.3 [facility] Comment on above: Performed By: #### P HOS, CMP, PTT, CBC, MG1, PT ####[place] [address] [address], [place] [phone] Calcium [Mass/Vol] 8.6 mg/dL Normal 8.5-10.2 [facility] Comment on above: Performed By: #### P HOS, CMP, PTT, CBC, MG1, PT ####[place] [address] [address], [place] [phone] Chloride [Moles/Vol] 109 mmol/L High 97-105 [facility] Comment on above: Performed By: #### P HOS, CMP, PTT, CBC, MG1, PT ####[place] [address], [place] [phone] CO2 [Moles/Vol] 23 mmol/L Normal 22-30 [facility] Comment on above: Performed By: #### P HOS, CMP, PTT, CBC, MG1, PT ####[facility] [place] [address] [phone] Creatinine [Mass/Vol] 0.76 mg/dL Normal 0.58-0.96 [facility] Comment on above: Performed By: #### P HOS, CMP, PTT, CBC, MG1, PT ####[address] [phone] eGFR- Amer. >[address] [facility] Comment on above: Performed By: #### P HOS, CMP, PTT, CBC, MG1, PT ####[address] [phone] eGFR-All Other Races >60 Normal [facility] Comment on above: Result Comment: eGFR [...] HOS, CMP, PTT, CBC, MG1, PT ####[address] [phone] Glucose [Mass/Vol] 119 mg/dL High 74-99 [facility] Comment on above: Result Comment: The [employer] (ADA) provides guidance for cutoff [...] Standards of Medical Care in Diabetes 2016, [place] [employer]. Diabetes Care. 2016.39(Suppl 1). Performed By: #### P HOS, CMP, PTT, CBC, MG1, PT ####[place] [address] [address] [place], [place] [phone] Potassium [Moles/Vol] 4.0 mmol/L Normal 3.7-5.1 [facility] Comment on above: Performed By: #### P HOS, CMP, PTT, CBC, MG1, PT ####[address] [phone] Protein [Mass/Vol] 5.9 g/dL Low 6.3-8.0 [facility] Comment on above: Performed By: #### P HOS, CMP, PTT, CBC, MG1, PT ####[address] [phone] Sodium [Moles/Vol] 142 mmol/L Normal 136-144 [facility] Comment on above: Performed By: #### P HOS, CMP, PTT, CBC, MG1, PT ####[address] [phone] Urea nitrogen [Mass/Vol] 13 mg/dL Normal 7-21 [facility] Comment on above: Performed By: #### P HOS, CMP, PTT, CBC, MG1, PT ####[address] [phone] GASV + ALLon 04-27-2021 Base Excess 1 mmol/L Normal [facility] Comment on above: Performed By: #### V ALLBG ####[address] [phone] Blood Gas Comm, Ziyad . Normal [facility] Comment on above: Performed By: #### V ALLBG ####[facility], [place] [phone] Body temperature 98.6 [degF] Normal [facility] Comment on above: Performed By: #### V ALLBG ####[facility] [place] [address] [place] [phone] Calcium [Moles/Vol] 1.21 mmol/L Normal 1.08-1.30 [facility] Comment on above: Performed By: #### V ALLBG ####[place] [address] [address] [place] [phone] Carboxyhemoglobin, Ziyad 0.7 % Normal <2.1 [facility] Comment on above: Performed By: #### V ALLBG ####[place] [address] [place] [phone] CO2 [Moles/Vol] 29 mmol/L Normal 25-29 [facility] Comment on above: Performed By: #### V ALLBG ####[place] [address] [address] [phone] Glucose [Mass/Vol] 97 mg/dL Normal 60-105 [facility] Comment on above: Performed By: #### V ALLBG ####[place] [address] [address] [phone] HCO3 (Bld) [Moles/Vol] 27 mmol/L Normal 24-28 [facility] Comment on above: Performed By: #### V ALLBG ####[facility] [place] [address] [place] [phone] Hematocrit (Bld) [Volume fraction] 38.2 % Normal 36.0-46.0 [facility] Comment on above: Performed By: #### V ALLBG ####[place] [address] [place] [address] [phone] Hemoglobin (Bld) [Mass/Vol] 12.4 g/dL Normal 11.5-15.5 [facility] Comment on above: Performed By: #### V ALLBG ####[place] [address] [phone] Lactate [Moles/Vol] 1.1 mmol/L Normal 0.5-2.2 [facility] Comment on above: Performed By: #### V ALLBG ####[place] [address] [place] [phone] Methemoglobin 0.7 % Normal <1.6 [facility] Comment on above: Performed By: #### V ALLBG ####[place] [address] [place] [place] [phone] O2 Administered 100% Normal [facility] Comment on above: Performed By: #### V ALLBG ####[place] [address] [address] [phone] Oxyhemoglobin, Ziyad. 92 % High 60-85 [facility] Comment on above: Performed By: #### V ALLBG ####[place] [address] [phone] pCO2 53 mm Hg Normal 42-55 [facility] Comment on above: Performed By: #### V ALLBG ####[place] [address] [address] [phone] pCO2, Temp Correct 53 mm Hg Normal 42-55 [facility] Comment on above: Performed By: #### V ALLBG ####[place] [address] [address] [phone] pH (Bld) 7.33 [pH] Normal 7.32-7.42 [facility] Comment on above: Performed By: #### V ALLBG ####[place] [address], [place] [phone] pH, Temp Corrected 7.33 Normal 7.32-7.42 [facility] Comment on above: Performed By: #### V ALLBG ####[facility] [phone] pO2 70 mm Hg High 35-45 [facility] Comment on above: Performed By: #### V ALLBG ####[facility], [place] [phone] pO2, Temp Corrected 70 mm Hg High 35-45 [facility] Comment on above: Performed By: #### V ALLBG ####[place] [address] [address] [place] [phone] Potassium [Moles/Vol] 3.9 mmol/L Normal 3.5-5.0 [facility] Comment on above: Performed By: #### V ALLBG ####[place] [address] [address] [phone] Sodium [Moles/Vol] 143 mmol/L Normal 136-144 [facility] Comment on above: Performed By: #### V ALLBG ####[place] [address] [address] [phone] Base Excess 0 mmol/L Normal [facility] Comment on above: Performed By: #### V ALLBG ####[place] [address] [place] [address], [place] [phone] Blood Gas Comm, Ziyad . Normal [facility] Comment on above: Performed By: #### V ALLBG ####[facility], [place] [phone] Body temperature 98.6 [degF] Normal [facility] Comment on above: Performed By: #### V ALLBG ####[place] [address] [place] [address], [place] [phone] Calcium [Moles/Vol] 1.22 mmol/L Normal 1.08-1.30 [facility] Comment on above: Performed By: #### V ALLBG ####[facility] [place] [address] [phone] Carboxyhemoglobin, Ziyad 0.6 % Normal <2.1 [facility] Comment on above: Performed By: #### V ALLBG ####[place] [address] [address] [phone] CO2 [Moles/Vol] 27 mmol/L Normal 25-29 [facility] Comment on above: Performed By: #### V ALLBG ####[place] [address] [address] [phone] Glucose [Mass/Vol] 130 mg/dL High 60-105 [facility] Comment on above: Performed By: #### V ALLBG ####[place] [address] [address] [phone] HCO3 (Bld) [Moles/Vol] 26 mmol/L Normal 24-28 [facility] Comment on above: Performed By: #### V ALLBG ####[place] [address] [address] [phone] Hematocrit (Bld) [Volume fraction] 42.7 % Normal 36.0-46.0 [facility] Comment on above: Performed By: #### V ALLBG ####[place] [address] [address] [phone] Hemoglobin (Bld) [Mass/Vol] 13.9 g/dL Normal 11.5-15.5 [facility] Comment on above: Performed By: #### V ALLBG ####[place] [address] [phone] Lactate [Moles/Vol] 1.3 mmol/L Normal 0.5-2.2 [facility] Comment on above: Performed By: #### V ALLBG ####[place] [address] [phone] Methemoglobin 1.1 % Normal <1.6 [facility] Comment on above: Performed By: #### V ALLBG ####[place] [address] [place] [place] [phone] O2 Administered 100% Normal [facility] Comment on above: Performed By: #### V ALLBG ####[place] [phone] Oxyhemoglobin, Ziyad. 88 % High 60-85 [facility] Comment on above: Performed By: #### V ALLBG ####[place] [address] [place] [address] [place] [phone] pCO2 49 mm Hg Normal 42-55 [facility] Comment on above: Performed By: #### V ALLBG ####[address] [place] [phone] pCO2, Temp Correct 49 mm Hg Normal 42-55 [facility] Comment on above: Performed By: #### V ALLBG ####[place] [address] [place] [phone] pH (Bld) 7.34 [pH] Normal 7.32-7.42 [facility] Comment on above: Performed By: #### V ALLBG ####[place] [address] [place] [place] [phone] pH, Temp Corrected 7.34 Normal 7.32-7.42 [facility] Comment on above: Performed By: #### V ALLBG ####[place] [address] [address] [phone] pO2 64 mm Hg High 35-45 [facility] Comment on above: Performed By: #### V ALLBG ####[place] [address] [place] [address] [phone] pO2, Temp Corrected 64 mm Hg High 35-45 [facility] Comment on above: Performed By: #### V ALLBG ####[place] [address] [place], [place] [phone] Potassium [Moles/Vol] 4.1 mmol/L Normal 3.5-5.0 [facility] Comment on above: Performed By: #### V ALLBG ####[address] [phone] Sodium [Moles/Vol] 142 mmol/L Normal 136-144 [facility] Comment on above: Performed By: #### V ALLBG ####[address] [phone] Magnesiumon 04-27-2021 Magnesium [Mass/Vol] 2.2 mg/dL Normal 1.7-2.3 [facility] Comment on above: Performed By: #### P HOS, CMP, PTT, CBC, MG1, PT ####[address] [phone] NURSING PROGon 04-27-2021 NURSING PROG HNO ID: [id number] Author: Jack Richards RN Service: Nursing Author Type: Registered Nurse Type: Nursing Progress Note Filed: 04/27/2021 10:46 PM Note Text: Nursing Progress: Topic: RESTRAINT NON-VIOLENT PATIENT NAME: Oscar Pineda PATIENT LOCATION: [place] [address] The patient demonstrates Lack of Understanding/Ability to [...] 2021 TIME: 10:00 PM Jack Richards RN [facility] NURSING PROG HNO ID: [id number] Author: Karsten Goldsmith RN Service: Nursing Author Type: Registered Nurse Type: Nursing Progress Note Filed: 04/27/2021 8:51 AM Note Text: Nursing Progress: Topic: RESTRAINT NON-VIOLENT PATIENT NAME: Oscar Pineda PATIENT LOCATION: [place] [address] The patient demonstrates Lack of Understanding/Ability to [...] TIME: 8:51 AM Karsten Goldsmith RN Normal [facility] Phosphoruson 04-27-2021 Phosphate [Mass/Vol] 3.3 mg/dL Normal 2.7-4.8 [facility] Comment on above: Performed By: #### P HOS, CMP, PTT, CBC, MG1, PT ####[facility] [address] [place], [place] [phone] Protimeon 04-27-2021 PT INR 1.1 Normal 0.9-1.3 [facility] Comment on above: Result Comment: Neha min K Antagonist (VKA) Therapeutic Range: INR 2 to 3 (Target INR of 2.5) Note: For patients treated with VKA drugs, such as warfarin, the [employer] 2012 Guideline recommends [...] Chest 2012, 141:7S-47S Daphne RA, et al. [facility] 2017, 70: 252-289 Performed By: #### P HOS, CMP, PTT, CBC, MG1, PT ####[facility] [place], [place] [phone] PT Sec 11.2 sec Normal 9.7-13.0 [facility] Comment on above: Performed By: #### P HOS, CMP, PTT, CBC, MG1, PT ####[facility] [address] [place] [place], [place] [phone] US ABDOMEN LTDon 04-27-2021 US ABDOMEN LTD * * *Final Report* * * DATE OF EXAM: Apr 27 2021 12:24PM [facility] [place] 1064 - US ABDOMEN [...] within the hepatic veins or visualized IVC. Bonding Machine Setter: PSCB Transcribe Date/Time: Apr 27 2021 12:34P Dictated by : POONAM BLUM MD This examination was interpreted and the report reviewed and electronically signed by: ALICIA MENDOZA MD on Apr 27 2021 2:57PM EST [id number] Normal [facility] XR CHEST 1V FRONTALon 2020 XR [...] cardiomediastinal silhouette. Other: . IMPRESSION: See result. Bonding Machine Setter: PSCB Transcribe Date/Time: Apr 27 2021 10:29A Dictated by : TAYLOR CORONA MD This examination was interpreted and the report reviewed and electronically signed by: TAYLOR CORONA MD on Apr 27 2021 10:31AM EST [id number] Normal [facility] ANES Sachin 04-26-2021 ANES POST HNO ID: [id number] Author: Tamara Brown DO Service: Anesthesiology Author [...] 26, 2021 TIME: 2:26 PM PAGER/CONTACT #: [phone] Normal [facility] APTTon 04-26-2021 aPTT Coag (Bld) [Time] 22.2 s Low 23.0-32.4 [facility] Comment on above: Result Comment: Unfr [...] laboratory APTT reagent in use throughout the [facility]. Performed By: #### C BC, MG1, PT, PTT, BMP, PHOS ####[facility] [address] [place], [place] [phone] BRIEF OP NOTon 04-26-2021 BRIEF OP NOT HNO ID: [id number] Author: Kayce Wagner MD Service: Radiology Author Type: Physician Type: Brief Op Note Filed: 04/26/2021 3:28 PM Note Text: BRIEF OPERATIVE / PROCEDURE NOTE LOG ID: [id number] SURGERY/PROCEDURE DATE: 04/26/2021 INCISION/PROCEDURE START TIME: 9:25 AM INCISION CLOSE/PROCEDURE END TIME: 11:20 AM SURGEON(S)/PROCEDURALIS T(S) AND SHIP BOSS(S): Surgeon(s) and Role: * Kayce Wagner MD [...] DATE: April 26, 2021 TIME: 2:59 PM [phone] Normal [facility] Basic Metabolic Panlon 04-26 Anion gap [Moles/Vol] 11 mmol/L Normal 9-18 [facility] Comment on above: Performed By: #### C BC, MG1, PT, PTT, BMP, PHOS ####[facility] [address] [place], [place] [phone] Calcium [Mass/Vol] 8.3 mg/dL Low 8.5-10.2 [facility] Comment on above: Performed By: #### C BC, MG1, PT, PTT, BMP, PHOS ####[facility] [place] [phone] Chloride [Moles/Vol] 107 mmol/L High 97-105 [facility] Comment on above: Performed By: #### C BC, MG1, PT, PTT, BMP, PHOS ####[place] [phone] CO2 [Moles/Vol] 22 mmol/L Normal 22-30 [facility] Comment on above: Performed By: #### C BC, MG1, PT, PTT, BMP, PHOS ####[place] [phone] Creatinine [Mass/Vol] 0.74 mg/dL Normal 0.58-0.96 [facility] Comment on above: Performed By: #### C BC, MG1, PT, PTT, BMP, PHOS ####[place] [phone] eGFR- Amer. >[address] [facility] Comment on above: Performed By: #### C BC, MG1, PT, PTT, BMP, PHOS ####[address] [phone] eGFR-All Other Races >60 Normal [facility] Comment on above: Result Comment: eGFR [...] C BC, MG1, PT, PTT, BMP, PHOS ####[place] [phone] Glucose [Mass/Vol] 178 mg/dL High 74-99 [facility] Comment on above: Result Comment: The [employer] (ADA) provides guidance for cutoff [...] Standards of Medical Care in Diabetes 2016, [place] [employer]. Diabetes Care. 2016.39(Suppl 1). Performed By: #### C BC, MG1, PT, PTT, BMP, PHOS ####[address] [phone] Potassium [Moles/Vol] 4.1 mmol/L Normal 3.7-5.1 [facility] Comment on above: Performed By: #### C BC, MG1, PT, PTT, BMP, PHOS ####[address] [phone] Sodium [Moles/Vol] 140 mmol/L Normal 136-144 [facility] Comment on above: Performed By: #### C BC, MG1, PT, PTT, BMP, PHOS ####[address] [phone] Urea nitrogen [Mass/Vol] 14 mg/dL Normal 7-21 [facility] Comment on above: Performed By: #### C BC, MG1, PT, PTT, BMP, PHOS ####[address] [phone] CBCon 04-26-2021 Absolute nRBC <0.01 Normal <0.01 [facility] Comment on above: Performed By: #### C BC, MG1, PT, PTT, BMP, PHOS ####[place] [address] [place] [place] [phone] Erythrocyte distribution width (RBC) [Ratio] 11.9 % Normal 11.5-15.0 [facility] Comment on above: Performed By: #### C BC, MG1, PT, PTT, BMP, PHOS ####[place] [address] [place] [place] [phone] Hematocrit (Bld) [Volume fraction] 38.5 % Normal 36.0-46.0 [facility] Comment on above: Performed By: #### C BC, MG1, PT, PTT, BMP, PHOS ####[place] [address] [place] [place] [phone] Hemoglobin (Bld) [Mass/Vol] 13.2 g/dL Normal 11.5-15.5 [facility] Comment on above: Performed By: #### C BC, MG1, PT, PTT, BMP, PHOS ####[place] [address] [place] [address] [place] [phone] MCH 31.7 pG Normal 26.0-34.0 [facility] Comment on above: Performed By: #### C BC, MG1, PT, PTT, BMP, PHOS ####[place] [address] [place] [address] [phone] MCHC (RBC) [Mass/Vol] 34.3 g/dL Normal 30.5-36.0 [facility] Comment on above: Performed By: #### C BC, MG1, PT, PTT, BMP, PHOS ####[place] [address] [place] [place] [phone] MCV (RBC) [Entitic vol] 92.3 fL Normal 80.0-100.0 [facility] Comment on above: Performed By: #### C BC, MG1, PT, PTT, BMP, PHOS ####[place] [address] [place], [place] [phone] Platelet mean volume (Bld) [Entitic vol] 9.6 fL Normal 9.0-12.7 [facility] Comment on above: Performed By: #### C BC, MG1, PT, PTT, BMP, PHOS ####[facility] [place], [place] [phone] Platelets (Bld) [#/Vol] 227 10*3/uL Normal 150-400 [facility] Comment on above: Performed By: #### C BC, MG1, PT, PTT, BMP, PHOS ####[place] [address] [place], [place] [phone] RBC (Bld) [#/Vol] 4.17 10*6/uL Normal 3.90-5.20 [facility] Comment on above: Performed By: #### C BC, MG1, PT, PTT, BMP, PHOS ####[place] [address] [place], [place] [phone] WBC (Bld) [#/Vol] 17.98 10*3/uL High 3.70-11.00 [facility] Comment on above: Performed By: #### C BC, MG1, PT, PTT, BMP, PHOS ####[place] [address] [place], [place] [phone] CONSULTon 04-26-2021 CONSULT HNO ID: [id number] Author: Jose M Cedillo MD Service: Interventional [...] Oscar BRITTON (more content not included)... Normal [facility] CONSULT HNO ID: [id number] Author: Oneida Ruano MD Service: Cardiovascular Medicine Author Type: Physician Type: Consults Filed: 04/27/2021 2:36 PM Note Text: [facility] CONSULT NOTE Oscar Pineda [id number] CONSULTING SERVICE: SICU DATE OF ADMISSION: 04/26/2021 [...] Problems: # (more content not included)... Normal [facility] CT ABLATION MSK NOT BONE ALDO ORon 04-26-2021 CT ABLATION MSK NOT BONE TUMOR * * *Final Report* * * * * * SEE BOTTOM OF REPORT FOR ADDENDED TEXT * * * DATE OF EXAM: Apr 26 2021 11:24AM [facility] [id number] - CT ABLATION MSK NOT BONE TUMOR / PROCEDURE REASON: R19.34-Nuvxx-knxnocurh and pelvic swelling, mass and lump, unspecified [...] for fur (more content not included)... Normal [facility] CT BRAIN WO IVCONon 04-26-[address] BRAIN WO IVCON * * *Final Report* * * DATE OF EXAM: Apr 26 2021 1:45PM [facility] [id number] - CT BRAIN WO IVCON / [...] reduction techniques were required COMPARISON: None. 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 Post-operative change: [...] Portable head CT demonstrating no acute findings. Bonding Machine Setter: ANEL Transcribe Date/Time: Apr 26 2021 1:56P Dictated by : MARIA L SCHMIDT MD This examination was interpreted and the report reviewed and electronically signed by: MARIA L SCHMIDT MD on Apr 26 2021 1:58PM EST [id number] Normal [facility] Confirm Blood Typeon 021 ABO/RH(D) Positive Normal [facility] Comment on above: Performed By: #### C ONABO ####[address] [phone] Performed By: #### T SCR ####[address] [phone] Expedited [id number] 04-26-20 21 SARS-CoV-2 (COVID-19) RNA ROX+probe Ql (Unsp spec) UPPER RESPIRATORY TRACT SWAB Normal [facility] Comment on above: Performed By: #### E XCOVD ####[address] [phone] SARS-CoV-2 (COVID-19) RNA ROX+probe Ql (Unsp spec) Negative for COVID19 (SARS CoV2) by RT-PCR or equivalent method. Normal Negative for COVID19 (SARS CoV2) by RT-PCR or equivalent method. [facility] Comment on above: Result Comment: This test has been authorized by FDA under an Emergency Use Authorization (EUA). Test performed by [facility], [facility] [place], [address] [place], [place] [address]. Performed By: #### E XCOVD ####[place] [address] [place], [place] [phone] GASV + ALLon 04-26-2021 Base Excess Negative Normal [facility] Comment on above: Performed By: #### V ALLBG ####[address] [phone] Blood Gas Comm, Ziyad .VENOUS Normal [facility] Comment on above: Performed By: #### V ALLBG ####[address] [phone] Body temperature 98.6 [degF] Normal [facility] Comment on above: Performed By: #### V ALLBG ####[place] [phone] Calcium [Moles/Vol] 1.23 mmol/L Normal 1.08-1.30 [facility] Comment on above: Performed By: #### V ALLBG ####[place] [phone] Carboxyhemoglobin, Ziyad 0.9 % Normal <2.1 [facility] Comment on above: Performed By: #### V ALLBG ####[place] [phone] CO2 [Moles/Vol] 27 mmol/L Normal 25-29 [facility] Comment on above: Performed By: #### V ALLBG ####[place] [address] [place], [place] [phone] Glucose [Mass/Vol] 144 mg/dL High 60-105 [facility] Comment on above: Performed By: #### V ALLBG ####[place] [address] [place], [place] [phone] HCO3 (Bld) [Moles/Vol] 25 mmol/L Normal 24-28 [facility] Comment on above: Performed By: #### V ALLBG ####[place] [address] [place] [address] [place] [phone] Hematocrit (Bld) [Volume fraction] 43.2 % Normal 36.0-46.0 [facility] Comment on above: Performed By: #### V ALLBG ####[place] [address] [place] [phone] Hemoglobin (Bld) [Mass/Vol] 14.1 g/dL Normal 11.5-15.5 [facility] Comment on above: Performed By: #### V ALLBG ####[address] [place] [phone] Lactate [Moles/Vol] 2.0 mmol/L Normal 0.5-2.2 [facility] Comment on above: Performed By: #### V ALLBG ####[place] [address] [place] [phone] Methemoglobin 0.7 % Normal <1.6 [facility] Comment on above: Performed By: #### V ALLBG ####[place] [phone] O2 Administered 100% Normal [facility] Comment on above: Performed By: #### V ALLBG ####[place] [address] [place] [phone] Oxyhemoglobin, Ziyad. 81 % Normal 60-85 [facility] Comment on above: Performed By: #### V ALLBG ####[place] [address] [place] [phone] pCO2 53 mm Hg Normal 42-55 [facility] Comment on above: Performed By: #### V ALLBG ####[place] [address] [place] [place] [phone] pCO2, Temp Correct 53 mm Hg Normal 42-55 [facility] Comment on above: Performed By: #### V ALLBG ####[place] [address] [address], [place] [phone] pH (Bld) 7.30 [pH] Low 7.32-7.42 [facility] Comment on above: Performed By: #### V ALLBG ####[place] [address] [place] [place] [phone] pH, Temp Corrected 7.30 Low 7.32-7.42 [facility] Comment on above: Performed By: #### V ALLBG ####[place] [address] [place] [place] [phone] pO2 52 mm Hg High 35-45 [facility] Comment on above: Performed By: #### V ALLBG ####[place] [address] [place] [phone] pO2, Temp Corrected 52 mm Hg High 35-45 [facility] Comment on above: Performed By: #### V ALLBG ####[place] [address] [place] [phone] Potassium [Moles/Vol] 4.4 mmol/L Normal 3.5-5.0 [facility] Comment on above: Performed By: #### V ALLBG ####[place] [address] [place] [phone] Sodium [Moles/Vol] 142 mmol/L Normal 136-144 [facility] Comment on above: Performed By: #### V ALLBG ####[place] [address] [place] [place] [phone] Base Excess Negative Normal [facility] Comment on above: Performed By: #### V ALLBG ####[place] [address] [address], [place] [phone] Blood Gas Comm, Ziyad .VENOUS Normal [facility] Comment on above: Performed By: #### V ALLBG ####[facility] [place] [address], [place] [phone] Body temperature 98.6 [degF] Normal [facility] Comment on above: Performed By: #### V ALLBG ####[place] [address] [place] [place] [phone] Calcium [Moles/Vol] 1.25 mmol/L Normal 1.08-1.30 [facility] Comment on above: Performed By: #### V ALLBG ####[place] [address] [place] [phone] Carboxyhemoglobin, Ziyad 0.5 % Normal <2.1 [facility] Comment on above: Performed By: #### V ALLBG ####[place] [address] [place] [phone] CO2 [Moles/Vol] 25 mmol/L Normal 25-29 [facility] Comment on above: Performed By: #### V ALLBG ####[place] [address] [place] [phone] Glucose [Mass/Vol] 172 mg/dL High 60-105 [facility] Comment on above: Performed By: #### V ALLBG ####[place] [address] [place] [phone] HCO3 (Bld) [Moles/Vol] 24 mmol/L Normal 24-28 [facility] Comment on above: Performed By: #### V ALLBG ####[place] [address] [place] [phone] Hematocrit (Bld) [Volume fraction] 44.2 % Normal 36.0-46.0 [facility] Comment on above: Performed By: #### V ALLBG ####[place] [address] [place] [phone] Hemoglobin (Bld) [Mass/Vol] 14.4 g/dL Normal 11.5-15.5 [facility] Comment on above: Performed By: #### V ALLBG ####[place] [address] [place] [phone] Lactate [Moles/Vol] 2.4 mmol/L High 0.5-2.2 [facility] Comment on above: Performed By: #### V ALLBG ####[place] [address] [place] [phone] Methemoglobin 1.2 % Normal <1.6 [facility] Comment on above: Performed By: #### V ALLBG ####[place] [phone] O2 Administered 100% Normal [facility] Comment on above: Performed By: #### V ALLBG ####[place] [address] [place] [phone] Oxyhemoglobin, Ziyad. 98 % High 60-85 [facility] Comment on above: Performed By: #### V ALLBG ####[place] [address] [place] [place] [phone] pCO2 46 mm Hg Normal 42-55 [facility] Comment on above: Performed By: #### V ALLBG ####[place] [address] [address] [place] [phone] pCO2, Temp Correct 46 mm Hg Normal 42-55 [facility] Comment on above: Performed By: #### V ALLBG ####[place] [address] [place] [phone] pH (Bld) 7.33 [pH] Normal 7.32-7.42 [facility] Comment on above: Performed By: #### V ALLBG ####[place] [address] [place] [phone] pH, Temp Corrected 7.33 Normal 7.32-7.42 [facility] Comment on above: Performed By: #### V ALLBG ####[facility] [address] [place], [place] [phone] pO2 246 mm Hg High 35-45 [facility] Comment on above: Performed By: #### V ALLBG ####[facility] [place], [place] [phone] pO2, Temp Corrected 246 mm Hg High 35-45 [facility] Comment on above: Performed By: #### V ALLBG ####[place] [address] [place], [place] [phone] Potassium [Moles/Vol] 4.4 mmol/L Normal 3.5-5.0 [facility] Comment on above: Performed By: #### V ALLBG ####[facility] [place], [place] [phone] Sodium [Moles/Vol] 143 mmol/L Normal 136-144 [facility] Comment on above: Performed By: #### V ALLBG ####[place] [address] [place], [place] [phone] HISTORY PHYSICALon HISTORY PHYSICAL HNO ID: [id number] Author: Kayce Wagner MD Service: Radiology Author [...] April 26, 2021 TIME: 8:54 PM Normal [facility] Magnesiumon 04-26-2021 Magnesium [Mass/Vol] 1.9 mg/dL Normal 1.7-2.3 [facility] Comment on above: Performed By: #### C BC, MG1, PT, PTT, BMP, PHOS ####[facility] [address] [place], [place] [phone] NURSING PROGon 04-26-2021 NURSING PROG HNO ID: [id number] Author: Jack Richards RN Service: Nursing Author Type: Registered Nurse Type: Nursing Progress Note Filed: 04/26/2021 9:21 PM Note Text: Nursing Progress: Topic: RESTRAINT NON-VIOLENT PATIENT NAME: Oscar Pineda PATIENT LOCATION: [place] [address]/[facility] The patient [...] TIME: 8:00 PM Jack Richards RN Normal [facility] NURSING PROG HNO ID: [id number] Author: Karsten Goldsmith RN Service: Nursing Author Type: Registered Nurse Type: Nursing Progress Note Filed: 04/26/2021 6:59 PM Note Text: Nursing Progress: Topic: RESTRAINT NON-VIOLENT PATIENT NAME: Oscar Pineda PATIENT LOCATION: [place] [address]/[facility] The patient [...] TIME: 6:58 PM Karsten Goldsmith RN Normal [facility] PT EDon 04-26-2021 PT ED HNO ID: [id number] Author: Agnes Schaefer RN Service: Interventional Radiology [...] SUPPLEMENTAL MATERIAL: None REFERRAL (RECOMMENDATION): None Normal [facility] Phosphoruson 04-26-2021 Phosphate [Mass/Vol] 3.1 mg/dL Normal 2.7-4.8 [facility] Comment on above: Performed By: #### C BC, MG1, PT, PTT, BMP, PHOS ####[facility] [address] [place], [place] [phone] Protimeon 04-26-2021 PT INR 1.1 Normal 0.9-1.3 [facility] Comment on above: Result Comment: Neha min K Antagonist (VKA) Therapeutic Range: INR 2 to 3 (Target INR of 2.5) Note: For patients treated with VKA drugs, such as warfarin, the [employer] 2012 Guideline recommends [...] Chest 2012, 141:7S-47S Daphne PEDERSON et al. [facility] 2017, 70: 252-289 Performed By: #### C BC, MG1, PT, PTT, BMP, PHOS ####[address] [phone] PT Sec 11.9 sec Normal 9.7-13.0 [facility] Comment on above: Performed By: #### C BC, MG1, PT, PTT, BMP, PHOS ####[place] [address] [place], [place] [phone] Staph aureus PCRon 1 MRSA PCR Negative Normal [facility] Comment on above: Performed By: #### S APCR ####[place] [address] [place], [place] [phone] S aureus Spec Source Nasal Normal [facility] Comment on above: Performed By: #### S APCR ####[address] [phone] Staph aureus PCR Negative Normal [facility] Comment on above: Performed By: #### S APCR ####[address] [phone] XR ABDOMEN 1V SUPINEon 04-26 XR ABDOMEN [...] loops of bowel. No focal bony abnormality. Bonding Machine Setter: PSYCHIATRIC Transcribe Date/Time: Apr 26 2021 2:53P Dictated by : RAMIN BROWNLEE MD This examination was interpreted and the report reviewed and electronically signed by: RAMIN BROWNLEE MD on Apr 26 2021 3:05PM EST [id number] Normal [facility] XR CHEST 1V FRONTAL PORTon 1 [...] No acute process identified. IMPRESSION: See result. Bonding Machine Setter: PSYCHIATRIC Transcribe Date/Time: Apr 26 2021 6:05P Dictated by : JASON LOWE MD This examination was interpreted and the report reviewed and electronically signed by: JASON LOWE MD on Apr 26 2021 6:07PM EST [id number] Normal [facility] XR CHEST 1V FRONTAL PORT * [...] No acute process identified. IMPRESSION: See result. Bonding Machine Setter: PSCB Transcribe Date/Time: Apr 26 2021 3:57P Dictated by : JASON LOWE MD This examination was interpreted and the report reviewed and electronically signed by: JASON LOWE MD on Apr 26 2021 3:58PM EST [id number] Normal [facility] NURSING PROGon 04-24-2021 NURSING PROG HNO ID: [id number] Author: Shereen Kwok LPN Service: ? Author [...] at 6:30am to desk QB-1 ([facility]) and check in for your procedure. Caustic Liquor Maker/Transportation: How will you be arriving for your procedure? Private car. If you will be arriving at [facility] via ambulance or public transportation, please call to discuss. You will need a responsible adult to accompany you to and from the procedure. Your sales route driver is required to stay with you until you are taken into the Procedure room. [facility] is currently restricting visitors to two visitors per patient. No visitor under the age of 16. You and your visitor will be screened for temperature and COVID-19 symptoms upon entry to the hospital, and a wristband will be applied when cleared. If you develop any of the following symptoms before your procedure, please call [phone]. Chills, joint pain, rash, sore throat, cough, [...] No Written instructions provided to patient via [employer] If you have any questions please call [phone] Normal [facility] MRI ABDOMEN WO/W IVCONon [facility] Vital Signs Date Time Vital Sign Value Performing Clinician Facility 10-10-2022 10:00-0400 Body height 161.29 cm Shaun Valentine Other [facility] Other 10-10-2022 10:00-0400 Body mass index (BMI) [Ratio] 23.08 kg/m2 Shaun Valentine Other [facility] Other 10-10-2022 10:00-0400 Body weight 60.06 kg Shaun Ball Other [facility] Other 10-10-2022 10:00-0400 Diastolic blood pressure 76 mm[Hg] Shaun Ball Other [facility] Other 10-10-2022 10:00-0400 Respiratory rate 12 /min Shaun Ball Other [facility] Other 10-10-2022 10:00-0400 Systolic blood pressure 110 mm[Hg] Shaun Ball Other [facility] Other 04-28-2022 15:46-0400 Body temperature 99.5 [degF] Melani Russell MD Work Phone: [facility] 04-28-2022 15:46-0400 Body weight 76.39 kg Melani Russell MD Work Phone: [facility] 04-28-2022 15:46-0400 Diastolic blood pressure 76 mm[Hg] Melani Russell MD Work Phone: [facility] 04-28-2022 15:46-0400 Heart rate 71 /min Melani Russell MD Work Phone: [facility] 04-28-2022 15:46-0400 Respiratory rate 20 /min Melani Russell MD Work Phone: [facility] 04-28-2022 15:46-0400 SaO2% (BldA) [Mass fraction] 97 % Melani Russell MD Work Phone: [facility] 04-28-2022 15:46-0400 Systolic blood pressure 131 mm[Hg] Melani Russell MD Work Phone: [facility] Encounters Encounter Date Encounter Type Care Provider [...] Not Available Start: 06-29-2023 End: 06-29-2023 ambulatory ADIRANNE MERCHANT Not Available Start: 06-01-2023 End: 06-01-2023 ambulatory SUKHJINDER AUDELIA Not Available Start: 02-25-2023 ambulatory Melani Hutchison Work Phone: Hematology/Oncology Comment on above: Start: 11-02-2022 Encounter for genera l adult medical examination without abnormal findings DR SHAUN VALENTINE [facility] Start: 10-27-2022 Telephone encounter Shaun Valentine [facility] Start: 10-27-2022 End: 10-28-[address] SHAUN VALENTINE [email or web address] Other Start: 10-27-2022 End: 10-28-2022 Encounter for general adult medical examination without abnormal findings DR SHAUN VALENTINE Facility:[facility] Start: 10-10-2022 End: 10-10-2022 ambulatory Shaun Valentine Other [facility] Other Start: 10-10-2022 Encounter for genera l adult medical examination without abnormal findings Shaun Valentine [facility] Start: 10-10-2022 Periodic preventive med est patient 18-39 yrs Shaun Valentine [facility] Start: 04-28-2022 End: 04-29-2022 ambulatory Melani Russell MD Work Phone: Hematology/Oncology Comment on above: History of tumor (Pr imary Dx) Start: 04-28-2022 End: 04-29-2022 Patient encounter procedure Melani Russell MD Work Phone: [facility] Start: 04-21-2022 End: 04-21-2022 ambulatory MELANI RUSSELL Facility:[facility] Start: 04-21-2022 End: 04-21-2022 Subsequent hospital visit by physician Kiel [facility] Main Q (I-Stat/1.5t/3t) Work Phone: MRI Q 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] Start: 11-14-2021 ambulatory Melani Hutchison Work Phone: Hematology/Oncology 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 Start: 10-28-2021 Telephone encounter Melani Acuña rd, MD Work Phone: Hematology/Oncology Comment on above: Care Coordination Start: 09-27-2021 End: 09-27-2021 ambulatory MELANI RUSSELL Facility:[facility] Start: 09-20-2021 End: 09-20-2021 ambulatory MELANI RUSSELL Facility:[facility] Start: 05-07-2021 End: 05-07-2021 ambulatory ALEX URBANO [facility] Start: 05-06-2021 End: 05-06-2021 ambulatory ALEX URBANO [facility] Start: 04-26-2021 End: 04-30-2021 Evaluation and management of inpatient FASALAL POLIAWI [facility] Start: 02-28-2021 End: 02-28-2021 Subsequent hospital visit by physician Kiel Count Includes [facility] Miriam (I-Stat/1.5t) Radiology Comment on above: Intra-abdominal and pelvic swelling, mass and lump, unspecified site [R19.00] Procedures Date Procedure Procedure Detail Performing Clinician Start: 04-29-2021 Antibody screen ALEX URBANO Comment on above: Performed By: #### T SCR ####[facility] [place], [place] [id number] Start: 04-26-2021 Antibody screen ALEX URBANO Comment on above: Performed By: #### T SCR ####[id number] [place], [place] [id number] Start: 02-28-2021 Mri abdomen w/o & w/contrast material Cortez Carter MD Work Phone: Plan of Treatment Date Care Activity Detail Author Start: 03-20-2023 Covid-19 Vaccine () Covid-19 Vaccine () [facility] Start: 03-20-2023 Influenza vaccination [facility] Start: 10-28-2022 End: 05-29-2023 Mri abdomen w/o & w/contrast material MRI ABDOMEN WO/W IVCON Radiology Routine History of tumor Expected: 10/28/2022, Expires: 05/29/2023 [facility] Work Phone: Comment on above: Expected: 10/28/2022 , Expires: 05/29/2023 Start: 10-28-2022 End: 05-29-2023 Mri pelvis w/o & w/contrast material MRI PELVIS WO/W IVCON Radiology Routine History of tumor Expected: 10/28/2022, Expires: 05/29/2023 [facility] Work Phone: Comment on above: Expected: 10/28/2022 , Expires: 05/29/2023 Start: 10-26-2022 End: 12-26-2022 CBC W Auto Differential panel - Blood ABS GRAN CT + CBC Lab Routine History of tumor Expected: 10/26/2022 (Approximate), Expires: 12/26/2022 [facility] Work Phone: Comment on above: Expected: 10/26/2022 (Approximate), Expires: 12/26/2022 Start: 10-26-2022 End: 12-26-2022 Comprehensive metabolic 2000 panel - Serum or Plasma COMP METABOLIC PANEL Lab Routine History of tumor Expected: 10/26/2022 (Approximate), Expires: 12/26/2022 [facility] Work Phone: Comment on above: Expected: 10/26/2022 (Approximate), Expires: 12/26/2022 Start: 07-20-2022 DEPRESSION ASSESSMENT DEPRESSION ASS ESSMENT [facility] Start: 03-20-2022 Influenza vaccination [facility] Start: 09-12-2021 COVID-19 VACCINE (3 - Booster for Pfizer series) COVID-19 VACCINE (3 - Booster for Pfizer series) [facility] Start: 07-20-2021 DEPRESSION ASSESSMENT DEPRESSION ASS [facility] Start: 06-07-2021 COVID-19 VACCINE (3 - Booster for Pfizer series) COVID-19 VACCINE (3 - Booster for Pfizer series) [facility] Start: 06-07-2021 COVID-19 VACCINE (3 - Pfizer series) COVID-19 VACCINE (3 - Pfizer series) [facility] Start: 03-15-2020 Urine microalbumin profile DTaP,Tdap,Td Vaccine (2 - Tdap) [facility] Start: 2014 HPV TESTING HPV TESTING [facility] Start: 2005 PAP TESTING PAP TESTING [facility] Start: 2003 Urine microalbumin profile DTAP,TDAP,TD (1 - Tdap) [facility] Start: 2002 HEPATITIS C SCREENING HEPATITIS C SC REENING [facility] Start: 2002 HIV SCREENING HIV SCREENING [facility] Start: 1996 Adult depression screening assessment DEPRESSION SCREENING [facility] Start: 1984 HEPATITIS B (1 of 3 - 3-dose series) HEPATITIS B (1 of 3 - 3-dose series) [facility] Start: 1984 Hepatitis B Vaccine (1 of 3 - 3-dose series) Hepatitis B Vaccine (1 of 3 - 3-dose series) [facility] End: 04-21-2022 Mri abdomen w/o & w/contrast material [facility] Work Phone: Comment on above: 1 Occurrences starti ng 04/21/2022 until 04/21/2022 End: 04-21-2022 Mri pelvis w/o & w/contrast material [facility] Work Phone: Comment on above: 1 Occurrences starti ng 04/21/2022 [facility] Immunization Date Immunization Notes Care Provider Fa cility 04-12-2021 COVID-19 Vaccine Pfi zer - Documentation Purposes Only Shaun Valentine Other [facility] Other 03-22-2021 COVID-19 Vaccine Pfi zer - Documentation Purposes Only Shaun Valentine Other [facility] Other 06-09-2019 influenza virus vaccine, unspecified formulation Mri (I-Stat/1.5t) [facility] Payers Date Payer Category Payer Private Health Insurance [employer] A ETNA CHOICE POS II [id number] 2015-Present [phone] [address] [place] [address] POS [id number] 2015 Private Health Insurance [id number] 1984 Unknown [id number] 1984 Unknown [id number] .9 1984 Unknown [id number] .9 1984 Unknown [id number] .9 1984 Unknown [id number] [id number] .9 1984 Unknown [id number] .1259 1984 Unknown [id number] [id number] .9 1984 Unknown [id number] [id number] .1259 1984 Unknown [id number] .9 1984 Unknown [id number] .1259 1959 Private Health Insurance [id number] Private Health Insurance [id number] Social History Date Type Detail Facility [facility]: [facility] Start: 02-14-2021 Tobacco use and exposure Smoke less tobacco non-user [facility] Start: 1985 Sex Assigned At Female C [facility] Start: 01-15-2021 End: 04-28-2022 Exposure to SARS-CoV-2 (event) Not sure [facility] Start: 02-14-2021 End: 05-07-2021 Sex Assigned At [facility] Start: 02-14-2021 End: 05-07-2021 History of Social function [facility] Adult Depression Screening Assessment 0 [facility] Start: 02-26-2021 Gender identity Identifies as female gender (finding) [facility] Start: 03-27-2021 Sexual orientation Heterosexual (fin ding) [facility] Clinical Notes 02-28-2021 to 10-10-2022 Note Date & Type Note Facility 10-10-2022 Evaluation note Encounter Date Diagnosis Assessment Notes Sep, Wellness examination (ICD-10 - Z00.00) Sep, Hair thinning (ICD-10 - L65.9) Check H/H and TSH Not scarring [facility] Other 10-11-2022 History of Present illness Narrative* [...] Hematology and Medical Oncology [facility] Nurse Note* Aliya Jean Baptiste RN - 04/28/2022 3:43 PM EDT Additional intake questions: Has the patient had fever, nausea, vomiting, diarrhea, constipation, fatigue for > 1 week? No Does the patient have a decreased appetite? No Does patient want to see a Lumber Piler? No (yes to any of above refer patient to schedulers for dietitian appointment) ) Does patient have any new or increased numbness or tingling of extremities? No Is patient interested in fertility information? No Does patient need any prescription refills? No Does patient have an advanced directive in place? No, Patient referred to [facility] Electronically Signed By: Aliya Jean Baptiste RN documented in [facility]22 NoteHNO ID: [id number] Author: Erin Garcia RN Service: ? Author [...] Pineda DATE: April 21, 2022 TIME: 5:35 [facility]10-03-2022 NoteHNO ID: [id number] Author: RT Toby(R) Service: Radiology Author Type: [...] BY: RT Toby(R) April 21, 2022 6:08 [facility]10-03-2022 History of Present illness Narrative* Erin Garcia [...] 21, 2022 6:08 PM documented in this encounterK[facility]-2022 Miscellaneous Notes* Telephone Encounter - Brittany Avendaño [facility] - 10/30/2021 3:24 PM EDT Patient calling stating she has not received a call back, Please call @ [phone] * Telephone Encounter - Brittany Avendaño [facility] - 10/28/2021 10:02 AM EDT Oscar Pineda is calling Melani Russell MD today regarding Care Coordination,calling with questions about with her condition. Patient has been identified by name and birthdate. Duration of symptoms: N/A Requesting response back: call on cell [phone] (home) [phone] (cell) Brittany Avendaño [facility] October 28, 2021 documented in this encounterK[facility]-2022 NoteHNO ID: [id number] Author: Melani Russell MD Service: ? Author Type: Physician Type: Progress Notes Filed: 10/07/2021 12:24 PM Note Text: [facility] ESTABLISHED PATIENT VISIT PATIENT NAME: Oscar Pineda [...] Melani Pérez MD Internal Medicine Resident, PGY-1 [facility] 09/27/2021 SOLID TUMOR STAFF: ATTENDING [...] Russell MD, PhD Staff, Hematology and [facility]cology[facility]03[facility] Note HNO ID: [id number] Author: Shannan Ansari, RT(R) Service: Radiology Author [...] BY: RT Eduardo(R) September 20, 2021 4:17 [facility]03-04-2022 NoteHNO ID: [id number] Author: Ronda Arora Service: ? Author Type: [...] Pineda DATE: September 20, 2021 TIME: 3:22 [facility]10-18-2021 NoteHNO ID: [id number] Author: LANETTE De Leon Service: ? Author Type: Genetic Counselor Type: Progress Notes Filed: 05/24/2021 11:18 AM Note Text: [facility] Consultation Note Genetic Counselor: Melida Quintero MS, [facility] Patient: Oscar Pineda Patient Name and confirmed at initiation of visit Visit was done virtually via Zoom Portions of the visit were done by genetic counseling chief internal auditor Suzanna Fishman under my supervision HIGH LEVEL [...] unknown descent and paternal ancestors are of Nepalese and Algerian descent. There is no Ashkenazi Roman Catholic ancestry. The patient had limited information about [...] that the patient's genetic (more content not included)...[facility]10-12-2021 NoteHNO ID: [id number] Author: Katty Logan APRN.NGUYEN Service: Critical Care [...] the A/P section below. Please refer to [email or web address] for list of inpatient medications. VITAL SIGNS: [...] room air today KIMBER (more content not included)...[facility]10-11-2021 NoteHNO ID: [id number] Author: Kayce Wagner MD Service: Radiology Author [...] her to go home. Kayce Wagner MD [phone] Hospital10-11-2021 NoteHNO ID: [id number] Author: Marva Stiles APRN.FURNACE HAND Service: Critical Care Author Type: Nurse Practitioner [...] Completed decadron -> transitioned to medrol. Consulted [facility] for transfer of service. Addendum @ 1115: pt to remain in SICU, [facility] does not feel comfortable accepting pt given supplemental O2 needs and < 24 hrs since extubation. Objective MEDICATIONS: Current medications and allergies reviewed. Recommended/planned medication changes discussed in detail in the A/P section below. Please refer to [email or web address] for list of inpatient medications. 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 Pt suffered [...] April 29, 2021 TIME: 8:45 AM PAGER/CONTACT #:[facility]10-10-2021 NoteHNO ID: [id number] Author: Sara Guzman APRN.FURNACE HAND Service: Critical Care Author Type: Nurse Practitioner [...] the A/P section below. Please refer to [email or web address] for list of inpatient medications. VITAL SIGNS: [...] Clinically Ready to Transfer to [facility] or SDU?: No Discharge Planning: To [...] Current Assessment AND Pl (more content not included)...[facility]10-10-2021 NoteHNO ID: [id number] Author: Jose M Cedillo MD Service: Interventional [...] who presented for cryoablation on 04/26 with [facility] radiology. Pt suffered [...] April 29, 2021 TIME: 8:34 AM PAGER/CONTACT #:[facility]10-09-2021 NoteHNO ID: [id number] Author: RT Agus(R) Service: Radiology Author Type: [...] RD, RVT, Wallace April 27, 2021 12:23 [facility]10-09-2021 History of Past illness Narrative* [...] of this encounter (statuses as of 11/01/2021) [facility]10-09[facility] History of Past illness Narrative* Problem Noted [...] of this encounter (statuses as of 11/19/2021) [facility]10-09-2021 History of Past illness Narrative* Problem Noted [...] of this encounter (statuses as of 04/22/2022) [facility]10-09-2021 History of Past illness Narrative* Problem Noted [...] of this encounter (statuses as of 04/29/2022) [facility]10-09-2021 History of Past illness Narrative* Problem Noted [...] of this encounter (statuses as of 02/25/2023) [facility]10-09-2021 NoteHNO ID: [id number] Author: Anila Wise APRN.CNP Service: Critical Care [...] Clinically Ready to Transfer to [facility] or SDU?: No Discharge Planning: To [...] Pulmonary Acute respiratory insufficie (more content not included)...[facility]10-09-2021 NoteHNO ID: [id number] Author: Jose M Cedillo MD Service: Interventional [...] to look for air in the hepatic veinsNewark Hospital 04-27-2021 NoteHNO ID: [id number] Author: Interface Note Service: ? Author Type: ? Type: Progress Notes Filed: 04/27/2021 2:51 AM Note Text: Epic Scheduled Downtime: 04/27/2021 1:00:00 AM to 04/27/2021 2:33:00 [facility]10-08-2021 NoteHNO ID: [id number] Author: Marva Stiles APRN.CNP Service: Critical Care [...] the A/P section below. Please refer to [facility] for list of inpatient medications. [...] Clinically Ready to Transfer to [facility] or SDU?: No Discharge Planning: To [...] 1245 vte pharmacologic prophyl (more content not included)...[facility]10-08-2021 NoteHNO ID: [id number] Author: Galdino Gaona DO Service: Critical Care Author Type: Fellow Type: Procedures Filed: 04/26/2021 4:34 PM Note Text: BEDSIDE PROCEDURE NOTE CENTRAL LINE INSERTION Date/Start Time: 04/26/2021 4:33 PM Performed by: Galdino Gaona DO Authorized by: oPlly Reyna MD Informed Consent Consent Obtained: Written [place] Protocol A moment to CARE was completed. [...] was applied following the usual aseptic technique. [facility] Central Line Insertion Checklist, attached to the [...] Pineda DATE: April 26, 2021 TIME: 4:32 [facility]10-08-2021 NoteHNO ID: [id number] Author: Polly Reyna MD Service: Critical Care [...] MD SICU Staff. 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 Intra-abdominal and pelvic swelling, mass and lump, unspecified site Abdominal mass, unspecified abdominal location documented in this encounter [facility] [place] note* Diagnosis History of tumor- Primary Personal history of other specified diseases documented in this encounter [facility] [place] noteNo InformationNortGeisinger-[facility] [email or web address] Other History general Narrative - Reported* Type Description Date Medical History Fatigue Medical History Gall bladder polyp Medical History Atopic dermatitis, mild Medical History DESMOID FIBROMATOSIS Surgical History C section x 3 Surgical History wisdom teeth Surgical History RIGHT ABDOMINAL WALL MASS Hospitalization History see above [email or web address] Other Advance Directives No Advanced Directives Records FoundDocuments on File Type Date Recorded 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 Advance Directive(s) 04/10/2021 12:55 PM Advance Directive(s) 03/07/2021 6:15 PM Reason for Referral Specialty Diagnoses / Procedures Referred By Katie t Referred To Contact MR IMAGING Diagnoses Desmoid Abdominal mass, unspecified abdominal location Procedures MRI PELVIS WO/W IVCON MRI PELVIS W/O & W/CONTRAST MATERIAL Melani Russell MD [address] [place], [place] [address] Mr Imaging Referral ID Status Reason Start Date Expiration Date V isits Requested Visits Authorized [id number] Closed Auto-Generate d Referral 03/30/2022 10/27/2022 1 1 Specialty Diagnoses / Procedures Referred By Jannaac t Referred To Contact MR IMAGING Diagnoses Desmoid Intra-abdominal and pelvic swelling, mass and lump, unspecified site Procedures MRI ABDOMEN WO/W IVCON MRI ABDOMEN W/O & W/CONTRAST MATERIAL Melani Russell MD [address] [place], [place] [address] Mr Imaging Referral ID Status Reason Start Date Expiration Date V isits Requested Visits Authorized [id number] Closed Auto-Generate d Referral 03/30/2022 10/27/2022 1 1 Specialty Diagnoses / Procedures Referred By Jannaac t Referred To Contact MR IMAGING Diagnoses History of tumor Procedures MRI PELVIS WO/W IVCON MRI PELVIS W/O & [place] [address] [place] [address] Mr Imaging Referral ID Status Reason Start Date Expiration Date Visits Requested Visits Authorized [id number] Pending Review Auto-Generat ed Referral 10/28/2022 05/29/2023 1 1 Specialty Diagnoses / Procedures Referred By Contac kartik Referred To Contact MR IMAGING Diagnoses History of tumor Procedures MRI ABDOMEN WO/W IVCON MRI ABDOMEN W/O & W/[place] [address] [place] [address] Mr Imaging Referral ID Status Reason Start Date Expiration Date Visits Requested Visits Authorized [id number] Pending Review Auto-Generat ed Referral 10/28/2022 05/29/2023 [...] or prosecute any alcohol or drug abuse patient.[facility] the event this information is protected by the Federal Confidentiality of Alcohol and Drug Abuse Patient Records regulations: The Federal rules restrict any use of the information to criminally investigate or prosecute any alcohol or drug abuse patient.[facility] the event this information is protected by the Federal Confidentiality of Alcohol and Drug Abuse Patient Records regulations: The Federal rules restrict any use of the information to criminally investigate or prosecute any alcohol or drug abuse patient.[facility] the event this information is protected by the Federal Confidentiality of Alcohol and Drug Abuse Patient Records regulations: The Federal rules restrict any use of the information to criminally investigate or prosecute any alcohol or drug abuse patient.[facility]In the event this information is protected by the Federal Confidentiality of Alcohol and Drug Abuse Patient Records regulations: The Federal rules restrict any use of the information to criminally investigate or prosecute any alcohol or drug abuse patient.[facility] the event this information is protected by the Federal Confidentiality of Alcohol and Drug Abuse Patient Records regulations: The Federal rules restrict any use of the information to criminally investigate or prosecute any alcohol or drug abuse patient.[facility] Reason for Visit (unrecogniz ed section and content) Reason Comments Care Coordination Reason Comments Radiology MRI Specialty Diagnoses / Procedures Referred By Contac t Referred To Contact MR IMAGING Diagnoses Desmoid Intra-abdominal and pelvic swelling, mass and lump, unspecified site Procedures MRI ABDOMEN WO/W IVCON MRI ABDOMEN W/O & W/[place] [address] [place] [id number] Mr Imaging Referral ID Status Reason Start Date Expiration Date V isits Requested Visits Authorized [id number] Closed Auto-Generate d Referral 03/30/2022 10/27/2022 1 1 Reason Comments Established Patient Reason Comments Radiology MRI Specialty Diagnoses / Procedures Referred By Contac t Referred To Contact MR IMAGING Diagnoses Intra-abdominal and pelvic swelling, mass and lump, unspecified site Procedures MRI ABDOMEN WO/W IVCON MRI,ABDOMEN,W&WO Cortez Dubois MD [address] [place] [address] [place] [id number] Referral ID Status Reason Start Date Expiration Date V isits Requested Visits Authorized [id number] Closed Auto-Generate d Referral 02/14/2021 03/16/2022 1 1 Care Teams (unrecognized sec tion and content) Pattern Puncher Relationship Specialty Start [place] [address] [address] [place] [id number] Physician Hematology/Oncology 05/20/21 Chey Tamayo, JOSE [address] [place], [place] [address] Specialty Photocopying Equipment Mechanic Oncology 05/20/21 Pattern Puncher Relationship Specialty Start Date End Date Melani Russell MD [id number] [place], [place] [id number] Physician Hematology/Oncology 05/20/21 Claritza Tamayo RN [address] [place] [id number] Specialty Photocopying Equipment Mechanic Oncology 05/20/21 Pattern Puncher Relationship Specialty Start Date End Date Melani Russell MD [address] [place] [id number] Physician Hematology/Oncology 05/20/21 Claritza Tamayo RN [address] [place] [id number] Specialty Photocopying Equipment Mechanic Oncology 05/20/21 Pattern Puncher Relationship Specialty Start Date End Date Melani Russell MD [address] [place] [id number] Physician Hematology/Oncology 05/20/21 Claritza Tamayo RN [address] [place] [id number] Specialty Photocopying Equipment Mechanic Oncology 05/20/21 Pattern Puncher Relationship Specialty Start Date End Date Melani Russell MD [address] [place] [id number] Physician Hematology/Oncology 05/20/21 Suzanna Chaidez RN [address] [place] [id number] Specialty Photocopying Equipment Mechanic Hematology/Oncology 06/10/22 INFORMATION SOURCE (unrecogn ized section and content) DATE CREATED AUTHOR 04/23/2022 [facility] DATE CREATED AUTHOR AUTHOR'S ORGANIZ ATION 11/02/2022 [facility] DATE CREATED AUTHOR AUTHOR'S ORGANIZ ATION 10/06/2023 [facility] EPIC FOR RECORDS PERTAINING [...] BE BASED ON THE PRIMARY CLINICAL RECORDS. [facility] [employer] [facility]. provides no warranty or guarantee of the accuracy or completeness of information in this document.
[2023-10-16] MEDS: 0.9 % SODIUM CHLORIDE 1,000 ML 1000 ML IV ×2 (06:13→07:00)
[2023-10-16 06:31] LABS: Basophils Percent Auto 0.5 % (0.2-2.0); Eosinophils Absolute Auto 0.1 10^3/uL (0.0-0.7); Eosinophils Percent Auto 1.1 % (0.9-7.0); Hematocrit 36.7 % (36.0-48.0); Hemoglobin 12.2 g/dL (12.0-16.0); Immature Granulocytes Abs Auto 0.02 10^3/uL (0.00-0.03); Immature Granulocytes Pct Auto 0.3 % (0.0-0.5); Lymphocytes Absolute Auto 1.5 10^3/uL (1.2-3.8); Lymphocytes Percent Auto 20.4 % (20.5-60.0); Mean Corpuscular HGB Conc 33.2 g/dL (29.9-35.2); Mean Corpuscular Hemoglobin 33.3 pg (26.7-34.0); Mean Corpuscular Volume 100.3 fL (81.0-99.0); Mean Platelet Volume 9.6 fL (9.5-13.5); Monocytes Absolute Auto 0.5 10^3/uL (0.3-0.8); Monocytes Percent Auto 6.8 % (1.7-12.0); Neutrophils Absolute Auto 5.3 10^3/uL (1.4-6.5); Neutrophils Percent Auto 70.9 % (43.0-75.0); Platelet Count 177 10^3/uL (150-450); Red Blood Count 3.66 10^6/uL (4.20-5.40); Red Cell Distribution Width 13.5 % (11.0-15.0); White Blood Count 7.5 10^3/uL (4.0-11.0)
[2023-10-16] MEDS: CEFAZOLIN SODIUM/DEXTROSE,ISO 2 GM/50 ML PIGGYBACK IV ×2 (06:54→12:45)
[2023-10-16] MEDS: CITRIC ACID/SODIUM CITRATE 30 ML SOLUTION ORACIT SHOHL'S SOLN PO (06:55)
[2023-10-16] MEDS: FAMOTIDINE/PF 20 MG/2 ML VIAL IV (06:55)
[2023-10-16 07:04] LABS: Bilirubin Urine NEGATIVE (NEGATIVE); Blood Urine NEGATIVE (NEGATIVE); Clarity Urine CLEAR (CLEAR); Color Urine YELLOW (YELLOW); Glucose Urine UA NEGATIVE (NEGATIVE); Ketones Urine NEGATIVE (NEGATIVE); Leukocyte Esterase Urine NEGATIVE (NEGATIVE); Nitrite Urine NEGATIVE (NEGATIVE); Protein Urine NEGATIVE (NEG/TRACE)
[2023-10-16] MEDS: METOCLOPRAMIDE HCL 10 MG/2 ML VIAL IVP (07:09)
[2023-10-16 07:12] LABS: Cannabinoid Screen Urine NEGATIVE (NEGATIVE)
[2023-10-16 07:13] LABS: Amphetamine Screen Urine NEGATIVE (NEGATIVE); Barbiturates Screen Urine NEGATIVE (NEGATIVE); Benzodiazepines Screen Urine NEGATIVE (NEGATIVE); Buprenorphine Screen Urine NEGATIVE (NEGATIVE); Cocaine Screen Urine NEGATIVE (NEGATIVE); Methadone Screen Urine NEGATIVE (NEGATIVE); Methamphetamines Screen Urine NEGATIVE (NEGATIVE); Opiate Screen Urine NEGATIVE (NEGATIVE); Oxycodone Screen Urine NEGATIVE (NEGATIVE); Phencyclidine Screen Urine NEGATIVE (NEGATIVE); Tricyclic Antidepressant Urine NEGATIVE (NEGATIVE)
[2023-10-16 07:14] LABS: Bacteria Urine SMALL #/HPF (NONE SEEN); Cast Seen? NONE SEEN #/LPF (NONE SEEN); Crystals Seen? None Seen #/HPF (None Seen); Mucus Urine NONE SEEN (NONE SEEN); RBC Urine 0-2 #/HPF (0-2); Squamous Epithelial Cell Urine MODERATE #/LPF (NONE/RARE); Urine Culture Indicated YES
[2023-10-16] MEDS: LACTATED RINGER'S SOLUTION 1,000 ML 50 ML IV ×2 (07:50→08:25)
--- NOTE | 2023-10-16 08:31 | P.ON_ITS ---
Brief Operative Note Date of procedure: 10/16/23 Pre-op diagnosis general: iup at 39wks, previous c/s Post-op diagnosis: same as pre-op Procedure: NAME OF PROCEDURE: [ section ] PROCEDURE: Patient was taken back to the Operating Room where she was given a spinal anesthesia with Duramorph without difficulty. She was prepped and draped in the normal sterile fashion. A Pfannenstiel skin incision was then made 2 cm above the symphysis pubis and carried down to underlying rectus fascia using a Bovie. The fascia was incised in the midline and extended laterally using Whitaker scissors. Two Shawanda clamps were placed on the superior aspect of the fascia and dissected off the underlying rectus muscles. The same was performed on the inferior aspect as well. The muscles were then in the midline. Peritoneum was identified and entered bluntly. The peritoneum was then extended superiorly and inferiorly with good visualization of the bladder. The bladder blade was inserted. A low transverse incision was made on the patient's uterus and extended laterally digitally. The was then delivered atraumatically after the bladder blade was removed in the cephalic position. The cord was clamped and cut. Cord blood was obtained. The was handed off to awaiting team. The patient's placenta was spontaneously delivered. The uterus was then exteriorized. The uterus was cleared of all clots and debris. The bladder blade was reinserted. The patient's uterine incision was closed using #0 Vicryl in a running lock fashion. Excellent hemostasis was assured. The uterus was then returned to the patient's abdomen. The patient's abdomen was copiously irrigated using warm saline. Peritoneal gutters were cleared of all clots and debris. Again excellent hemostasis was assured. The patient's peritoneum was closed using 3-0 Vicryl in a running fashion. The patient's fascia was closed using #0 Vicryl in a running fashion. The patient's skin was closed using 4-0 Vicryl subcuticularly. The patient tolerated the procedure well. Sponge, lap, and needle counts were correct x2. The patient was taken to the Recovery Room in stable condition. Anesthesia: spinal Surgeon: Yoel Wilson [employer] Worker: Emely Frances Estimated blood loss (mL): 600 Pathology: other (placenta) Condition: stable Disposition: floor Urinary Catheter Management Urinary Catheter Management Urethral: Cath placed during this visit: yes Urethral indwelling: No Insertion date: 10/16/23 Insertion time: 06:31
--- NOTE | 2023-10-16 08:33 | P.OBPRC_ITS ---
Procedure Pre-op/Post-op diagnoses: Pre-Op/Post-Op Diagnoses Operation Date: 10/16/23 07:30 <No data on this case meets the specified criteria> Procedure: Procedures Operation Date: 10/16/23 07:30 Actual Procedure Side Surgeon p Repeat Not Applicable Yoel Wilson DO Surgical Supervisor: Emely Frances Estimated blood loss (mL): 600 Disposition: floor Anesthesia type: Spinal
[2023-10-16] MEDS: BUPIVACAINE HCL 0.5% PF 50 MG/10 ML VIAL INJ (08:50)
[2023-10-16] MEDS: 0.9 % SODIUM CHLORIDE 10 ML VIAL 30 ML INJ (08:50)
[2023-10-16] MEDS: BUPIVACAINE LIPOSOME/PF 266 MG/13.3 ML VIAL INJ (08:50)
[2023-10-16] MEDS: OXYTOCIN/0.9 % SODIUM CHLORIDE 20 UNITS/1,000 ML PLAST..BAG 125 UNIT IV (09:05)
[2023-10-16] MEDS: 0.9 % SODIUM CHLORIDE 1,000 ML 125 ML IV (09:26)
[2023-10-16] MEDS: KETOROLAC TROMETHAMINE 30 MG/ML VIAL IVP ×2 (14:44→20:31)
[2023-10-16] MEDS: ONDANSETRON 4 MG RAPDIS TABLET PO (14:44)
[2023-10-16] MEDS: ACETAMINOPHEN 500 MG TABLET 1000 MG PO (16:34)
[2023-10-16] MEDS: ENOXAPARIN SODIUM 40 MG/0.4 ML SYRINGE SUBQ (20:32)
[2023-10-17] MEDS: ACETAMINOPHEN 500 MG TABLET 1000 MG PO ×3 (00:07→16:02)
[2023-10-17 00:08] VITALS: BP 114/56; PULSE 71
[2023-10-17 04:26] VITALS: BP 119/63; PULSE 57
[2023-10-17] MEDS: KETOROLAC TROMETHAMINE 30 MG/ML VIAL IVP (04:29)
[2023-10-17 05:56] LABS: Basophils Absolute Auto 0.1 10^3/uL (0.0-0.1); Basophils Percent Auto 0.4 % (0.2-2.0); Eosinophils Absolute Auto 0.1 10^3/uL (0.0-0.7); Eosinophils Percent Auto 0.8 % (0.9-7.0); Hematocrit 30.6 % (36.0-48.0); Hemoglobin 10.3 g/dL (12.0-16.0); Immature Granulocytes Abs Auto 0.04 10^3/uL (0.00-0.03); Immature Granulocytes Pct Auto 0.3 % (0.0-0.5); Lymphocytes Absolute Auto 2.7 10^3/uL (1.2-3.8); Lymphocytes Percent Auto 23.1 % (20.5-60.0); Mean Corpuscular HGB Conc 33.7 g/dL (29.9-35.2); Mean Platelet Volume 10.1 fL (9.5-13.5); Monocytes Absolute Auto 0.8 10^3/uL (0.3-0.8); Monocytes Percent Auto 6.9 % (1.7-12.0); Neutrophils Percent Auto 68.5 % (43.0-75.0); Platelet Count 152 10^3/uL (150-450); Red Blood Count 3.03 10^6/uL (4.20-5.40); Red Cell Distribution Width 13.5 % (11.0-15.0); White Blood Count 11.6 10^3/uL (4.0-11.0)
[2023-10-17 07:34] VITALS: BP 119/72; PULSE 60
[2023-10-17 07:35] VITALS: TEMP 36.5
--- NOTE | 2023-10-17 08:53 | PM.OBPN ---
OB - PN: Subj Subjective Patient comments: no complaints and pain well controlled [place] status: doing well Exam Constitutional Vital Signs, click to edit/add: Last Vital Signs Temp 98.2 F 10/16/23 15:08 Pulse 60 10/17/23 07:34 Resp 16 10/16/23 17:06 BP 119/72 10/17/23 07:34 Pulse Ox 97 10/16/23 17:06 O2 Del Method Room Air 10/16/23 17:06 Documenting provider has reviewed patient's vital signs: yes Common normals: no apparent distress Respiratory Common normals: clear to auscultation bilaterally Cardio Common normals: regular rate and regular rhythm GI Common normals: Normal to inspection, nondistended, normoactive bowel sounds present Extremity Common normals: no calf tenderness Results Labs Labs: Short CBC 10/17/23 Range/Units 05:50 WBC 11.6 H (4.0-11.0) 10^3/uL Hgb 10.3 L (12.0-16.0) g/dL Hct 30.6 L (36.0-48.0) % Plt Count 152 (150-450) 10^3/uL Urinary Catheter Management Urinary Catheter Management Urethral: Cath placed during this visit: yes Urethral indwelling: No Insertion date: 10/16/23 Insertion time: 06:31 OB - PN: A/P Plan - day: 1 Plan: routine postop care Time Spent with Patient Time: Total time spent is greater than 50% in coordination of care (as documented) at patient's floor/unit and/or counseling patient: Total time spent with greater than 50% in coordination of care (as documented) at patient's floor/unit and/or counseling patient: less than 15 minutes
[2023-10-17] MEDS: IBUPROFEN 400 MG TABLET 800 MG PO ×2 (10:13→18:13)
[2023-10-17] MEDS: DOCUSATE SODIUM 100 MG CAPSULE PO ×2 (10:13→22:09)
[2023-10-17 16:45] VITALS: TEMP 36.4
[2023-10-17 16:48] VITALS: BP 128/80; PULSE 71
[2023-10-17] MEDS: ENOXAPARIN SODIUM 40 MG/0.4 ML SYRINGE SUBQ (22:09)
[2023-10-18] MEDS: ACETAMINOPHEN 500 MG TABLET 1000 MG PO (00:33)
[2023-10-18 00:38] VITALS: BP 127/74; PULSE 68
[2023-10-18 08:00] VITALS: TEMP 36.6
[2023-10-18 08:01] VITALS: BP 114/73; PULSE 67
[2023-10-18] MEDS: DOCUSATE SODIUM 100 MG CAPSULE PO (08:12)
[2023-10-18] MEDS: IBUPROFEN 400 MG TABLET 800 MG PO (08:12)
--- NOTE | 2023-10-18 09:58 | PM.OBPN ---
OB - PN: Subj Subjective Patient comments: no complaints and pain well controlled [place] status: doing well Exam Constitutional Vital Signs, click to edit/add: Last Vital Signs Temp 97.8 F 10/18/23 08:00 Pulse 67 10/18/23 08:01 Resp 14 10/18/23 08:00 BP 114/73 10/18/23 08:01 Pulse Ox 97 10/16/23 17:06 O2 Del Method Room Air 10/18/23 08:00 Documenting provider has reviewed patient's vital signs: yes Common normals: no apparent distress Respiratory Common normals: clear to auscultation bilaterally Cardio Common normals: regular rate and regular rhythm GI Common normals: Normal to inspection, nondistended, normoactive bowel sounds present Extremity Common normals: no clubbing, cyanosis or edema Urinary Catheter Management Urinary Catheter Management Urethral: Cath placed during this visit: yes Urethral indwelling: No Insertion date: 10/16/23 Insertion time: 06:31 OB - PN: A/P Plan - day: 2 Plan: routine postop care, discharge home and other (fu 1wk) Time Spent with Patient Time: Total time spent is greater than 50% in coordination of care (as documented) at patient's floor/unit and/or counseling patient: Total time spent with greater than 50% in coordination of care (as documented) at patient's floor/unit and/or counseling patient: less than 15 minutes
--- NOTE | 2023-10-18 11:55 | DS_ITS ---
DISCHARGE DATE:? ?10/18/2023 ? PRIMARY DIAGNOSES: 1.? Intrauterine at 39 weeks. 2.? Previous . ? PROCEDURE:? section. ? HOSPITAL COURSE:? As expected.? Please see chart for full details.? ? LABORATORY DATA:? Please see chart. ? COMPLICATIONS:? None. ? DISCHARGE CONDITION:? Stable. ? CONSULTATION:? Anesthesia. ? DISCHARGE INSTRUCTIONS: 1.? Diet:? Regular. 2.? Medications: a.? Percocet 5/325 one to two p.o. every 4-6 hours p.r.n. pain. b.? Motrin 800 one p.o. every 8 hours p.r.n. pain. 3.? Followup in one week. Restrictions:? Pelvic rest for 6 weeks.? No heavy lifting.? May drive when pain free and no longer on narcotics. MTDD
== END 2023-10-18 11:55 | disposition home or self-care (01) | DRG 788 ==
PROVIDERS: Admitting Provider Obstetrics & Gynecology; PCP Internal Medicine; Visit Provider Obstetrics & Gynecology
PROC: 10D00Z1 Extraction of Products of Conception, Low, Open Approach (ICD-10-PCS; CPT 59514; principal; 2023-10-16 07:30)
DX: O34.211 Maternal care for low transverse scar from previous cesarean delivery (principal); Z3A.39 39 weeks gestation of pregnancy; Z37.0 Single live birth
CPT/HCPCS: 36415; 51702; 64488; 80307; 81001; 85025; 86850; 86900; 86901; 87086; 88307; 94667; 94668; 96372; 96374; 96375; 96376; 99999; J1094

== ENCOUNTER 2023-10-21 08:32 | Outpatient (OUT) | payer OTHER, SELFPAY ==
--- OUTSIDE RECORDS SUMMARY | 2023-10-21 08:54 | XMS_ITS | CCD ---
Author Organization [facility] Care Team Providers Care Information Services Consultant Name Role Phone Drew JAMES, Melani Unavailable Yariel GARCIA, Chey Unavailable [phone] Yariel GARCIA, Claritza Andrade Unavailable [phone] Drew JAMES, Melani Unavailable Yariel GARCIA, Claritza Andrade Unavailable [phone] ALEX URBANO Referring Unavailable ALTAHAWI, FAYSMARIELLA Attending [...] Translations: [CODEINE] Drug Allergy 1 GI Upset [facility] (7 sources) Adhesive Tape-Silicones; Translations: [ADHESIVE TAPE-SILICONES] Drug Allergy 1 Other: See Comments [facility] (2 sources) Adhesive agent Drug allergy Unknown [employer] Other (2 sources) Codeine Drug Allergy nausea [employer] Other (1 source) Codeine Drug Allergy 1 [facility] (1 source) Desonide Drug Allergy 1 [facility] Medications Current Medications Medication [...] 10-27-2022 BASO # 0.1 103/ul Normal 0.0-0.1 [facility] Comment on above: Performed By: #### C BC #### [facility] [address] [address] [address] Rancho Cobos Basophils/100 WBC (Bld) 0.9 % Normal 0.2-2.0 [facility] Comment on above: Performed By: #### C BC #### [facility] [address] [place] [address] Dr. Rancho Cobos EO # 0.1 103/ul Normal 0.0-0.7 [facility] Comment on above: Performed By: #### C BC #### [facility] [address] [address] [address] Rancho Cobos Eosinophils/100 WBC (Bld) 1.4 % Normal 0.9-7.0 [facility] Comment on above: Performed By: #### C BC #### [facility] [address] [place] [address] Dr. Rancho Cobos Erythrocyte distribution width (RBC) [Ratio] 11.8 % Normal 11.0-15.0 [facility] Comment on above: Performed By: #### C BC #### [facility] [address] [place] [address] Dr. Rancho Cobos Hematocrit (Bld) [Volume fraction] 38.5 % Normal 36.0-48.0 [facility] Comment on above: Performed By: #### C BC #### [facility] [address] [place] [address] Dr. Rancho Cobos Hemoglobin (Bld) [Mass/Vol] 13.3 g/dL Normal 12.0-16.0 [facility] Comment on above: Performed By: #### C BC #### [facility] [address] [place] [address] Dr. Rancho Cobos IG # 0.01 10e3/ul Normal 0.00-0.03 [facility] Comment on above: Performed By: #### C BC #### [facility] [address] [place] [address] Dr. Rancho Cobos IG % 0.2 % Normal 0.0-0.5 [facility] Comment on above: Performed By: #### C BC #### [facility] [address] [place] [address] Dr. Rancho Cobos LYMPH # 1.7 103/ul Normal 1.2-3.8 [facility] Comment on above: Performed By: #### C BC #### [facility] [address] [place] [address] Dr. Rancho Cobos Lymphocytes/100 WBC (Bld) 31.2 % Normal 20.5-60.0 [facility] Comment on above: Performed By: #### C BC #### [facility] [address] [place] [address] Dr. Rancho Cobos MANUAL DIFF REQ NO Normal [facility] Comment on above: Performed By: #### C BC #### [facility] [address] [place] [address] Dr. Rancho Cobos MCH (RBC) [Entitic mass] 31.9 pg Normal 26.7-34.0 [facility] Comment on above: Performed By: #### C BC #### [facility] [address] [place] [address] Dr. Rancho Cobos MCHC (RBC) [Mass/Vol] 34.5 g/dL Normal 29.9-35.2 [facility] Comment on above: Performed By: #### C BC #### [facility] [address] [place] [address] Dr. Rancho Cobos MCV (RBC) [Entitic vol] 92.3 fL Normal 81.0-99.0 [facility] Comment on above: Performed By: #### C BC #### [facility] [address] [address] [address] Rancho Cobos MONO # 0.3 103/ul Normal 0.3-0.8 [facility] Comment on above: Performed By: #### C BC #### [facility] [address] [address] [address] Rancho Cobos Monocytes/100 WBC (Bld) 5.2 % Normal 1.7-12.0 [facility] Comment on above: Performed By: #### C BC #### [facility] [address] [place] [address] Dr. Rancho Cobos NEUT # 3.4 103/ul Normal 1.4-6.5 [facility] Comment on above: Performed By: #### C BC #### [facility] [address] [place] [address] Dr. Rancho Cobos Neutrophils/100 WBC (Bld) 61.1 % Normal 43.0-75.0 [facility] Comment on above: Performed By: #### C BC #### [facility] [address] [place] [address] Dr. Rancho Cobos Platelet mean volume (Bld) [Entitic vol] 9.4 fL Critically low 9.5-13.5 [facility] Comment on above: Performed By: #### C BC #### [facility] [address] [place] [address] Dr. Rancho Cobos PLT 261 103/ul Normal 150-450 [facility] Comment on above: Performed By: #### C BC #### [facility] [address] [address] [address] Rancho Cobos RBC 4.17 106/ul Critically low 4.20-5.40 [facility] Comment on above: Performed By: #### C BC #### [facility] [address] [place] [address] Dr. Rancho Cobos WBC 5.6 103/ul Normal 4.0-11.0 [facility] Comment on above: Performed By: #### C BC #### [facility] [address] [place] [address] Dr. Rancho Cobos LIPID PROFILEon 10-27-2022 CHOL-HDL RATIO NORM SEE BELOW Normal [facility] Comment on above: Result Comment: 3.3 - 4.4 LOW RISK 4.4 - 7.1 AVERAGE RISK 7.1 - 11.0 MODERATE RISK >11.0 HIGH RISK Performed By: #### C MP, LIPID, TSH #### [facility] [address] [address] [address] Rancho Cobos Cholesterol [Mass/Vol] 162 mg/dL Normal <=200 [facility] Comment on above: Performed By: #### C MP, LIPID, TSH #### [facility] [address] [address] [address] Rancho Cobos Cholesterol in HDL [Mass/Vol] 56 mg/dL Normal 40-60 [facility] Comment on above: Performed By: #### C MP, LIPID, TSH #### [facility] [address] [address] [address] Rancho Cobos Cholesterol in LDL [Mass/Vol] 97.0 mg/dL Normal [facility] Comment on above: Performed By: #### C MP, LIPID, TSH #### [facility] [address] [address] [address] Rancho Cobos Cholesterol.total/ Cholesterol in HDL [Mass ratio] 2.9 {ratio} Normal [facility] Comment on above: Performed By: #### C MP, LIPID, TSH #### [facility] [address] [address] [address] Rancho Cobos HDL NORMAL > or = 60 mg/dl - LO W CARDIOVASCULAR RISK <40 mg/dl - HIGH CARDIOVASCULAR RISK Normal [facility] Comment on above: Performed By: #### C MP, LIPID, TSH #### [facility] [address] [address] [address] Rancho Cobos LDL CALC NORMAL SEE BELOW Normal [facility] Comment on above: Result Comment: <100 mg/dl OPTIMAL 100 - 129 mg/dl NEAR OR ABOVE OPTIMAL 130 - 159 mg/dl BORDERLINE HIGH 160 - 189 mg/dl HIGH >190 mg/dl VERY HIGH Performed By: #### C MP, LIPID, TSH #### [facility] [address] [address] [address] Rancho Cobos Triglyceride [Mass/Vol] 45 mg/dL Normal <=150 [facility] Comment on above: Performed By: #### C MP, LIPID, TSH #### [facility] [address] [place] [address] Dr. Rancho Cobos VLDL CALC 9.0 mg/dL Normal [facility] Comment on above: Performed By: #### C MP, LIPID, TSH #### [facility] [address] [address] [address] Rancho Cobos PROF 14(COMP METB)on 023 Albumin [Mass/Vol] 4.0 g/dL Normal 3.4-5.0 [facility] Comment on above: Performed By: #### C MP, LIPID, TSH #### [facility] [address] [place] [address] Dr. Rancho Cobos Albumin/Globulin [Mass ratio] 1.2 {ratio} Normal [facility] Comment on above: Performed By: #### C MP, LIPID, TSH #### [facility] [address] [place] [address] Dr. Rancho Cobos ALP [Catalytic activity/Vol] 34 U/L Critically low 46-116 [facility] Comment on above: Performed By: #### C MP, LIPID, TSH #### [facility] [address] [place] [address] Dr. Rancho Cobos ALT [Catalytic activity/Vol] 24 U/L Normal 14-59 [facility] Comment on above: Performed By: #### C MP, LIPID, TSH #### [facility] [address] [place] [address] Dr. Rancho Cobos Anion gap [Moles/Vol] 12.1 mmol/L Normal [facility] Comment on above: Performed By: #### C MP, LIPID, TSH #### [facility] [address] [place] [address] Dr. Rancho Cobos AST [Catalytic activity/Vol] 17 U/L Normal 15-37 [facility] Comment on above: Performed By: #### C MP, LIPID, TSH #### [facility] [address] [address] [address] Rancho Cobos Bilirubin [Mass/Vol] 0.5 mg/dL Normal 0.2-1.0 [facility] Comment on above: Performed By: #### C MP, LIPID, TSH #### [facility] [address] [address] [address] Rancho Cobos Calcium [Mass/Vol] 9.2 mg/dL Normal 8.5-10.1 [facility] Comment on above: Performed By: #### C MP, LIPID, TSH #### [facility] [address] [address] [address] Rancho Cobos Chloride [Moles/Vol] 107 mmol/L Normal 98-107 [facility] Comment on above: Performed By: #### C MP, LIPID, TSH #### [facility] [address] [place] [address] Dr. Rancho Cobos CO2 [Moles/Vol] 28.5 mmol/L Normal 21.0-32.0 [facility] Comment on above: Performed By: #### C MP, LIPID, TSH #### [facility] [address] [place] [address] Dr. Rancho Cobos Creatinine [Mass/Vol] 0.72 mg/dL Normal 0.55-1.02 [facility] Comment on above: Performed By: #### C MP, LIPID, TSH #### [facility] [address] [place] [address] Dr. Rancho Cobos EGFR-AF HONG KONGER >60 Normal >=60 [facility] Comment on above: Performed By: #### C MP, LIPID, TSH #### [facility] [address] [place] [address] Dr. Rancho Cobos EGFR-NON AF [place]ONG KONGER >60 Normal >=60 [facility] Comment on above: Performed By: #### C MP, LIPID, TSH #### [facility] [address] [place] [address] Dr. Rancho Cobos Globulin (S) [Mass/Vol] 3.4 g/dL Normal [facility] Comment on above: Performed By: #### C MP, LIPID, TSH #### [facility] [address] [place] [address] Dr. Rancho Cobos Glucose [Mass/Vol] 92 mg/dL Normal 74-106 [facility] Comment on above: Performed By: #### C MP, LIPID, TSH #### [facility] [address] [place] [address] Dr. Rancho Cobos Potassium [Moles/Vol] 4.6 mmol/L Normal 3.5-5.1 [facility] Comment on above: Performed By: #### C MP, LIPID, TSH #### [facility] [address] [place] [address] Dr. Rancho Cobos Protein [Mass/Vol] 7.4 g/dL Normal 6.4-8.2 [facility] Comment on above: Performed By: #### C MP, LIPID, TSH #### [facility] [address] [place] [address] Dr. Rancho Cobos Sodium [Moles/Vol] 143 mmol/L Normal 136-145 [facility] Comment on above: Performed By: #### C MP, LIPID, TSH #### [facility] [address] [place] [address] Dr. Rancho Cobos Urea nitrogen [Mass/Vol] 18.0 mg/dL Normal 7.0-18.0 [facility] Comment on above: Performed By: #### C MP, LIPID, TSH #### [facility] [address] [place] [address] Dr. Rancho Cobos Urea nitrogen/Creatinin e [Mass ratio] 25.0 mg/mg Normal [facility] Comment on above: Performed By: #### C MP, LIPID, TSH #### [facility] [address] [place] [address] Dr. Rancho Cobos TSHon 10-27-2022 TSH 1.005 uIU/mL Normal 0.358-3.740 [facility] Comment on above: Performed By: #### C MP, LIPID, TSH #### [facility] [address] [place] [address] Dr. Rancho Cobos MRI ABDOMEN WO/W IVCONon [...] suspicious marrow signal abnormality. Lower chest: Unremarkable. Sound Engineering Technician (localizer) images: No additional findings. IMPRESSION: Evolving changes of RIGHT rectus abdominis muscle ablation without local recurrence. No metastatic disease in abdomen or pelvis Sealer Operator: ANEL Transcribe Date/Time: Apr 22 2022 10:29A Dictated by : LIBRADO JOAQUIN DO This examination was interpreted and the report reviewed and electronically signed by: CANELO EDMONDSON MD on Apr 22 2022 12:49PM EST [id number] Normal [facility] MRI PELVIS WO/W IVCONon 10-0 MRI PELVIS [...] suspicious marrow signal abnormality. Lower chest: Unremarkable. Sound Engineering Technician (localizer) images: No additional findings. IMPRESSION: Evolving changes of RIGHT rectus abdominis muscle ablation without local recurrence. No metastatic disease in abdomen or pelvis Sealer Operator: ANEL Transcribe Date/Time: Apr 22 2022 10:29A Dictated by : LIBRADO JOAQUIN, DO This examination was interpreted and the report reviewed and electronically signed by: CANELO EDMONDSON MD on Apr 22 2022 12:49PM EST [id number] Normal [facility] 10-28-2021 CNPN Telephone (HEMCA3) OSCAR PINEDA ([id number]) 1985 F Date Time Provider Department 10/28/21 MELANI RUSSELL HEMCA3 During your visit today, we recorded the following information about you: Brittany Avendaño ADM 10/28/2021 10:04 AM Signed Oscar Pineda is calling Melani Russell MD today regarding Care Coordination,calling with questions about with her condition. Patient has been identified by name and birthdate. Duration of symptoms: N/A Requesting response back: call on cell [phone] (home) [phone] (cell) Brittany Avendaño ADM October 28, 2021 Brittany Banueloss [facility] 10/30/2021 3:25 PM Signed Patient calling stating she has not received a call back, Please call @ [phone] Melani Russell MD 11/19/2021 10:20 AM Signed This has been addressed through an Scan•Jour message. Melani Russell MD, PhD Staff, Hematology and Medical Oncology Allergies As of Date: 10/28/2021 Noted Allergy Reaction CODEINE 02/01/2021 8 - GI Upset ADHESIVE TAPE-SILICONES 02/14/2021 14 - Other: See Comments Comments: Blisters Date Reviewed: 09/27/2021 Reviewed by: Aliya Jean Baptiste RN - Fully Assessed Reason for Visit: Care Coordination [1443] Prescriptions as of 11/19/2021 - sulindac (CLINORIL) [...] Status:Closed by BRITTANY LIAO on 11/01/21 Normal [facility] CNOVSPon 09-27-2021 CNOVSP Visit (SP) Office (HEMCA4) SARAVANANOSCAR GRACE ([id number]) 1985 F Date Time Provider Department 09/27/21 9:00 AM MELANI RUSSELL During your visit today, we recorded the following information about you: Pulse Respiration Blood pressure Weight 65/minute 20/minute 149/67 77.6 kg Melani Russell MD 10/07/2021 12:24 PM Signed [facility] ESTABLISHED PATIENT VISIT PATIENT NAME: [...] Melani Pérez MD Internal Medicine Resident, PGY-1 [facility] 09/27/2021 SOLID TUMOR STAFF: ATTENDING PHYSICIAN [...] No Does patient want to see a Key Account Executive? No (yes to any of (more content not included)... Normal [facility] MRI ABDOMEN WO/W IVCONon MRI ABDOMEN WO/W [...] diffusion weighted and T1 weighted in- and [id number] images were obtained. Then, using a 3-D [...] muscle mass, without evidence for residual/recurrent disease. Sealer Operator: PSCB Transcribe Date/Time: Sep 20 2021 4:49P Dictated by : CHRIS MILIAN MD This examination was interpreted and the report reviewed and electronically signed by: CHRIS MILIAN MD on Sep 20 2021 4:58PM EST [id number] Normal [facility] MRI PELVIS WO/W IVCONon 03-0 MRI PELVIS [...] diffusion weighted and T1 weighted in- and [id number] images were obtained. Then, using a 3-D [...] muscle mass, without evidence for residual/recurrent disease. Sealer Operator: ANEL Transcribe Date/Time: Sep 20 2021 4:49P Dictated by : CHRIS MILIAN MD This examination was interpreted and the report reviewed and electronically signed by: CHRIS MILIAN MD on Sep 20 2021 4:58PM EST [id number] Normal [facility] CNPNon 08-09-2021 CNPN Telephone (HEMCA3) OSCAR PINEDA ([id number]) 1985 F Date Time Provider Department 08/09/21 [...] N/A Requesting response back: call on cell [phone] (home) [phone] (cell) Marva Gualberto Adm August 09, 2021 Chey Tamayo RN 08/09/2021 4:42 PM Signed Returned call to patient and informed her that moving her visit with Dr. Russell after the MRI would be best to establish a plan of care. Patient was appreciative of return call and information. Chey Tamayo RN Surgical Aide August 09, 2021 Allergies As of Date: 08/09/2021 Noted Allergy Reaction CODEINE 02/01/2021 8 - GI Upset ADHESIVE TAPE-SILICONES 02/14/2021 14 - Other: See Comments Comments: Blisters Date Reviewed: 04/30/2021 Reviewed by: Magda Rose RN - Fully Assessed Reason for Visit: Care Coordination [0451] Cmt: appointment question Prescriptions as of 08/09/2021 [...] Encounter Status:Closed by CL[facility]ITZA [facility]GMINE[facility] OSCAR PINEDA ([id number]) 1985 F Date Time Provider Department 05/22/21 MELIDA QUINTERO During your visit today, we recorded the following information about you: LANETTE De Leon 05/22/2021 2:32 PM Signed Patient name and was confirmed at initiation of discussion. Oscar Pineda's Common Hereditary Cancers Panel through [employer] was negative for a pathogenic variant. Please [...] Encounter Status:Closed by MELIDA QUINTERO on 05/22/21 [facility] 05-15-2021 CNPN Telephone (HEMCA3) OSCAR PINEDA ([id number]) 1985 F Date Time Provider Department 05/15/21 [...] N/A Requesting response back: call on cell [phone] (home) [phone] (cell) Marva Burciaga Adm May 15, 2021 [...] Status:Closed by MELANI RUSSELL on 05/17/21 Normal [facility] Molecular Teston 2020 Test Common Hereditary Cancers Panel Normal [facility] Comment on above: Performed By: #### M OL13 ####[facility] [id number] [place] [address] Test Results View results in Scan zahraa Documents link when available. Normal [facility] Comment on above: Performed By: #### M OL13 ####[facility] [id number] [place] [address] Nishant 05-01-2021 NGUYENN Telephone (JULIANN) OSCAR PINEDA ([id number]) 1985 F Date Time Provider Department 05/01/21 [...] questions or concerns. Mindy Farley Genetic Counselor Auto Seat Cover Installer Allergies As of Date: 05/01/2021 Noted Allergy [...] Status:Closed by MINDY FARLEY on 05/01/21 Normal [facility] CBCon 04-30-2021 Absolute nRBC <0.01 Normal <0.01 [facility] Comment on above: Performed By: #### C BC ####[facility] [id number] [place], [place] [phone] Erythrocyte distribution width (RBC) [Ratio] 12.0 % Normal 11.5-15.0 [facility] Comment on above: Performed By: #### C BC ####[facility] [id number] [place], [place] [phone] Hematocrit (Bld) [Volume fraction] 33.8 % Low 36.0-46.0 [facility] Comment on above: Performed By: #### C BC ####[address] [address] [place] [place], [place] [phone] Hemoglobin (Bld) [Mass/Vol] 11.8 g/dL Normal 11.5-15.5 [facility] Comment on above: Performed By: #### C BC ####[address] [place], [place] [phone] MCH 31.5 pG Normal 26.0-34.0 [facility] Comment on above: Performed By: #### C BC ####[address] [phone] MCHC (RBC) [Mass/Vol] 34.9 g/dL Normal 30.5-36.0 [facility] Comment on above: Performed By: #### C BC ####[address] [phone] MCV (RBC) [Entitic vol] 90.1 fL Normal 80.0-100.0 [facility] Comment on above: Performed By: #### C BC ####[address] [phone] Platelet mean volume (Bld) [Entitic vol] 9.6 fL Normal 9.0-12.7 [facility] Comment on above: Performed By: #### C BC ####[address] [place], [place] [phone] Platelets (Bld) [#/Vol] 182 10*3/uL Normal 150-400 [facility] Comment on above: Performed By: #### C BC ####[address] [place], [place] [phone] RBC (Bld) [#/Vol] 3.75 10*6/uL Low 3.90-5.[address] [facility] Comment on above: Performed By: #### C BC ####[facility] [id number] [place], [place] [phone] WBC (Bld) [#/Vol] 12.88 10*3/uL High 3.70-11.00 [facility] Comment on above: Performed By: #### C BC ####[facility] [address] [place], [place] [phone] CNDSon 04-30-2021 CNDS HNO ID: [id number] Author: Katty Logan APRN.PATTERNMAKER ALL AROUND Service: Critical Care Author Type: Nurse Practitioner [...] air KIMBER (more content not included)... Normal [facility] THERAPY NTon 04-30-2021 THERAPY NT HNO ID: [id number] Author: Licha Llanes, PT Service: Physical Therapy Author Type: Physical Therapist Type: Therapy (PT/OT/Speech/Resp) Filed: 04/30/2021 3:02 PM Note Text: Physical Therapy Treatment SERVICE DATE: 04/30/2021 SERVICE TIME: 1342 to 1351 ROOM: [place] [address] Recommended Discharge Disposition: Home Recommended Discharge Disposition [...] gait and mobility-other Interventions Provided: Gait Training (31210) Gait Training (49278) Treatment Minutes: 9 $ Gait Training (99318) Billed Units: 1 unit Training AND education provided in: Discharge planning, Energy conservation, Exercise program, Expected functional level, Falls prevention, Gait pattern, reduction of deviations, Home safe (more content not included)... Normal [facility] ALLIED HEALTHon 04-29-2021 ALLIED HEALTH HNO ID: [id number] Author: Ana Watters RN Service: Healing Service [...] 29, 2021 TIME: 8:11 AM CONTACT #: [phone] [facility] APTTon 04-29-2021 aPTT Coag (Bld) [Time] 26.4 s Normal 23.0-32.4 [facility] Comment on above: Result Comment: Unfr actionated [...] laboratory APTT reagent in use throughout the [facility]. 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 Last discharge within 30 days: No Advance Directive: Current Advance Directive: None Toggle Press Folder And Feeder Attempted to Assist with AD Completion: No [...] None Has the Patient Been in a Nursing Home Facility in the Past 30 days?: No SOCIAL: Living Arrangements: Home Lives With: Spouse Primary Contact: Extended Emergency Contact Information Primary Emergency Contact: LAURA PINEDA Address: [address] [place] [id number] [facility] Mobile Relation: Spouse Supportive Patient Contact:: Yes Contact Resources: Family Family Name/Phone: LAURA PINEDA (Spouse) [phone] Caregiver AssessmentCaregiver is ready, willing and able [...] Mostly I feel financially burdened by my [id number] expenses for my prescription medication:: 0 - Disagree Mostly Risk Score: 0 Patient is categorized as: Low risk < 2 Med Adherance Assessement not completed due to: No DISTRIBUTION CENTER ASSOCIATE meds Are you interested in bedside delivery of your medications? Yes Is Patient Psychosocially Complex?: No ASSESSMENT AND PLAN: Medical Needs: Medical Needs: None Psychosocial Needs: Psychosocial Needs: None FREEDOM OF CHOICE EXPLAINED: Fre[place] of Choice Given: No Reason Not Given: No placements necessary POTENTIAL TRANSITION PLANS No Services Indicated SIGNATURE: Rocio Bear RN MSN PATIENT NAME: Oscar Pineda DATE: April 29, 2021 TIME: 11:53 AM PAGER/CONTACT #: [phone] Normal [facility] CBCon 04-29-2021 Absolute nRBC <0.01 Normal <0.01 [facility] Comment on above: Performed By: #### C BC, MG1, PHOS, PTT, CMP, PT ####[facility] [address] [place], [place] [phone] Erythrocyte distribution width (RBC) [Ratio] 11.8 % Normal 11.5-15.0 [facility] Comment on above: Performed By: #### C BC, MG1, PHOS, PTT, CMP, PT ####[place] [address] [address] [place] [phone] Hematocrit (Bld) [Volume fraction] 37.0 % Normal 36.0-46.0 [facility] Comment on above: Performed By: #### C BC, MG1, PHOS, PTT, CMP, PT ####[place] [address] [address] [place] [phone] Hemoglobin (Bld) [Mass/Vol] 12.3 g/dL Normal 11.5-15.5 [facility] Comment on above: Performed By: #### C BC, MG1, PHOS, PTT, CMP, PT ####[place] [address] [address] [place] [phone] MCH 30.9 pG Normal 26.0-34.0 [facility] Comment on above: Performed By: #### C BC, MG1, PHOS, PTT, CMP, PT ####[place] [address] [address] [place] [phone] MCHC (RBC) [Mass/Vol] 33.2 g/dL Normal 30.5-36.0 [facility] Comment on above: Performed By: #### C BC, MG1, PHOS, PTT, CMP, PT ####[place] [address] [address] [place] [phone] MCV (RBC) [Entitic vol] 93.0 fL Normal 80.0-100.0 [facility] Comment on above: Performed By: #### C BC, MG1, PHOS, PTT, CMP, PT ####[place] [address] [address] [place] [phone] Platelet mean volume (Bld) [Entitic vol] 10.0 fL Normal 9.0-12.7 [facility] Comment on above: Performed By: #### C BC, MG1, PHOS, PTT, CMP, PT ####[facility] [place], [place] [phone] Platelets (Bld) [#/Vol] 188 10*3/uL Normal 150-400 [facility] Comment on above: Performed By: #### C BC, MG1, PHOS, PTT, CMP, PT ####[place] [address] [address], [place] [phone] RBC (Bld) [#/Vol] 3.98 10*6/uL Normal 3.90-5.[address] [facility] Comment on above: Performed By: #### C BC, MG1, PHOS, PTT, CMP, PT ####[place] [address] [address] [place], [place] [phone] WBC (Bld) [#/Vol] 11.41 10*3/uL High 3.70-11.00 [facility] Comment on above: Performed By: #### C BC, MG1, PHOS, PTT, CMP, PT ####[place] [address] [address] [place], [place] [phone] Comp Metabolic Panelon 04-29 Albumin [Mass/Vol] 3.5 g/dL Low 3.9-4.9 [facility] Comment on above: Performed By: #### C BC, MG1, PHOS, PTT, CMP, PT ####[place] [address] [address], [place] [phone] ALP [Catalytic activity/Vol] 43 U/L Normal 34-123 [facility] Comment on above: Performed By: #### C BC, MG1, PHOS, PTT, CMP, PT ####[place] [address] [place], [place] [phone] ALT [Catalytic activity/Vol] 56 U/L High 7-38 [facility] Comment on above: Performed By: #### C BC, MG1, PHOS, PTT, CMP, PT ####[place] [address] [place], [place] [phone] Anion gap [Moles/Vol] 14 mmol/L Normal 9-18 [facility] Comment on above: Performed By: #### C BC, MG1, PHOS, PTT, CMP, PT ####[place] [address] [address] [place], [place] [phone] AST [Catalytic activity/Vol] 171 U/L High 13-35 [facility] Comment on above: Performed By: #### C BC, MG1, PHOS, PTT, CMP, PT ####[place] [address], [place] [phone] Bilirubin [Mass/Vol] 0.6 mg/dL Normal 0.2-1.3 [facility] Comment on above: Performed By: #### C BC, MG1, PHOS, PTT, CMP, PT ####[place] [address] [address], [place] [phone] Calcium [Mass/Vol] 8.3 mg/dL Low 8.5-10.2 [facility] Comment on above: Performed By: #### C BC, MG1, PHOS, PTT, CMP, PT ####[place] [address], [place] [phone] Chloride [Moles/Vol] 100 mmol/L Normal 97-105 [facility] Comment on above: Performed By: #### C BC, MG1, PHOS, PTT, CMP, PT ####[place] [address] [place], [place] [phone] CO2 [Moles/Vol] 25 mmol/L Normal 22-30 [facility] Comment on above: Performed By: #### C BC, MG1, PHOS, PTT, CMP, PT ####[place] [address] [place], [place] [phone] Creatinine [Mass/Vol] 0.78 mg/dL Normal 0.58-0.96 [facility] Comment on above: Performed By: #### C BC, MG1, PHOS, PTT, CMP, PT ####[facility] [place], [place] [phone] eGFR- Amer. >60 Normal [facility] Comment on above: Performed By: #### C BC, MG1, PHOS, PTT, CMP, PT ####[facility] [place], [place] [phone] eGFR-All Other Races >60 Normal [facility] Comment on above: Result Comment: eGFR (Estimated [...] C BC, MG1, PHOS, PTT, CMP, PT ####[place] [address] [place], [place] [phone] Glucose [Mass/Vol] 167 mg/dL High 74-99 [facility] Comment on above: Result Comment: The [place] Diabetes Association (ADA) provides guidance for cutoff [...] Standards of Medical Care in Diabetes 2016, [place] Diabetes Association. Diabetes Care. 2016.39(Suppl 1). Performed By: #### C BC, MG1, PHOS, PTT, CMP, PT ####[place] [address] [place], [place] [phone] Potassium [Moles/Vol] 3.9 mmol/L Normal 3.7-5.1 [facility] Comment on above: Performed By: #### C BC, MG1, PHOS, PTT, CMP, PT ####[address] [place] [phone] Protein [Mass/Vol] 6.0 g/dL Low 6.3-8.0 [facility] Comment on above: Performed By: #### C BC, MG1, PHOS, PTT, CMP, PT ####[place] [phone] Sodium [Moles/Vol] 139 mmol/L Normal 136-144 [facility] Comment on above: Performed By: #### C BC, MG1, PHOS, PTT, CMP, PT ####[address] [place], [place] [phone] Urea nitrogen [Mass/Vol] 9 mg/dL Normal 7-21 [facility] Comment on above: Performed By: #### C BC, MG1, PHOS, PTT, CMP, PT ####[address] [phone] GASV + ALLon 04-29-2021 Base Excess 4 mmol/L Normal [facility] Comment on above: Performed By: #### V ALLBG ####[address] [phone] Calcium [Moles/Vol] 1.15 mmol/L Normal 1.08-1.30 [facility] Comment on above: Performed By: #### V ALLBG ####[address] [phone] Carboxyhemoglobin, Ziyad 1.2 % Normal <2.1 [facility] Comment on above: Performed By: #### V ALLBG ####[place] [address] [place] [phone] CO2 [Moles/Vol] 31 mmol/L High 25-29 [facility] Comment on above: Performed By: #### V ALLBG ####[place] [address] [address] [place] [phone] Glucose [Mass/Vol] 178 mg/dL High 60-105 [facility] Comment on above: Performed By: #### V ALLBG ####[place] [address] [address] [place] [phone] HCO3 (Bld) [Moles/Vol] 29 mmol/L High 24-28 [facility] Comment on above: Performed By: #### V ALLBG ####[place] [address] [place] [phone] Lactate [Moles/Vol] 1.3 mmol/L Normal 0.5-2.2 [facility] Comment on above: Performed By: #### V ALLBG ####[place] [address] [place] [phone] Methemoglobin 0.7 % Normal <1.6 [facility] Comment on above: Performed By: #### V ALLBG ####[place] [address] [place] [phone] O2 Administered 40% Normal [facility] Comment on above: Performed By: #### V ALLBG ####[place] [address] [place] [phone] pCO2 51 mm Hg Normal 42-55 [facility] Comment on above: Performed By: #### V ALLBG ####[place] [address] [place] [phone] pCO2, Temp Correct 51 mm Hg Normal 42-55 [facility] Comment on above: Performed By: #### V ALLBG ####[facility] [place], [place] [phone] Potassium [Moles/Vol] 4.0 mmol/L Normal 3.5-5.0 [facility] Comment on above: Performed By: #### V ALLBG ####[place] [address] [place], [place] [phone] Base Excess 3 mmol/L Normal [facility] Comment on above: Performed By: #### V ALLBG ####[facility] [place], [place] [phone] Blood Gas Comm, Ziyad . Normal [facility] Comment on above: Performed By: #### V ALLBG ####[place] [address], [place] [phone] Body temperature 98.6 [degF] Normal [facility] Comment on above: Performed By: #### V ALLBG ####[place] [address], [place] [phone] Calcium [Moles/Vol] 1.18 mmol/L Normal 1.08-1.30 [facility] Comment on above: Performed By: #### V ALLBG ####[place] [address], [place] [phone] Carboxyhemoglobin, Ziyad 0.9 % Normal <2.1 [facility] Comment on above: Performed By: #### V ALLBG ####[facility] [place], [place] [phone] CO2 [Moles/Vol] 30 mmol/L High 25-29 [facility] Comment on above: Performed By: #### V ALLBG ####[place] [address] [place], [place] [phone] Glucose [Mass/Vol] 193 mg/dL High 60-105 [facility] Comment on above: Performed By: #### V ALLBG ####[place] [address] [place] [phone] HCO3 (Bld) [Moles/Vol] 28 mmol/L Normal 24-28 [facility] Comment on above: Performed By: #### V ALLBG ####[place] [address] [place] [phone] Hematocrit (Bld) [Volume fraction] 39.0 % Normal 36.0-46.0 [facility] Comment on above: Performed By: #### V ALLBG ####[place] [address] [place] [phone] Hemoglobin (Bld) [Mass/Vol] 12.7 g/dL Normal 11.5-15.5 [facility] Comment on above: Performed By: #### V ALLBG ####[place] [address] [place] [phone] Lactate [Moles/Vol] 1.6 mmol/L Normal 0.5-2.2 [facility] Comment on above: Performed By: #### V ALLBG ####[place] [address] [place] [phone] Methemoglobin 1.0 % Normal <1.6 [facility] Comment on above: Performed By: #### V ALLBG ####[place] [address] [place] [phone] O2 Administered 30% Normal [facility] Comment on above: Performed By: #### V ALLBG ####[place] [address] [place] [phone] Oxyhemoglobin, Ziyad. 78 % Normal 60-85 [facility] Comment on above: Performed By: #### V ALLBG ####[place] [address] [place], [place] [phone] pCO2 49 mm Hg Normal 42-55 [facility] Comment on above: Performed By: #### V ALLBG ####[place] [address] [place], [place] [phone] pCO2, Temp Correct 49 mm Hg Normal 42-55 [facility] Comment on above: Performed By: #### V ALLBG ####[place] [address], [place] [phone] pH (Bld) 7.38 [pH] Normal 7.32-7.42 [facility] Comment on above: Performed By: #### V ALLBG ####[place] [address] [place], [place] [phone] pH, Temp Corrected 7.38 Normal 7.32-7.42 [facility] Comment on above: Performed By: #### V ALLBG ####[place] [address], [place] [phone] pO2 46 mm Hg High 35-45 [facility] Comment on above: Performed By: #### V ALLBG ####[place] [address] [place], [place] [phone] pO2, Temp Corrected 46 mm Hg High 35-45 [facility] Comment on above: Performed By: #### V ALLBG ####[place] [address] [place], [place] [phone] Potassium [Moles/Vol] 4.3 mmol/L Normal 3.5-5.0 [facility] Comment on above: Performed By: #### V ALLBG ####[place] [address], [place] [phone] Sodium [Moles/Vol] 141 mmol/L Normal 136-144 [facility] Comment on above: Performed By: #### V ALLBG ####[address] [phone] Magnesiumon 04-29-2021 Magnesium [Mass/Vol] 1.8 mg/dL Normal 1.7-2.3 [facility] Comment on above: Performed By: #### C BC, MG1, PHOS, PTT, CMP, PT ####[facility] [address] [place], [place] [phone] NURSING PROGon 04-29-2021 NURSING PROG HNO ID: [id number] Author: Magda Rose RN Service: ? Author Type: Registered Nurse Type: Nursing Progress Note Filed: 04/29/2021 7:45 AM Note Text: Nursing Progress: Topic: RESTRAINT NON-VIOLENT PATIENT NAME: Oscar Pineda PATIENT LOCATION: [place] [address] The patient demonstrates Attempting to Remove Medical [...] TIME: 7:44 AM Diane Rose RN Normal [facility] Phosphoruson 04-29-2021 Phosphate [Mass/Vol] 3.2 mg/dL Normal 2.7-4.8 [facility] Comment on above: Performed By: #### C BC, MG1, PHOS, PTT, CMP, PT ####[facility] [address] [place], [place] [phone] Protimeon 04-29-2021 PT INR 1.0 Normal 0.9-1.3 [facility] Comment on above: Result Comment: Neha min K Antagonist (VKA) Therapeutic Range: INR 2 to 3 (Target INR of 2.5) Note: For patients treated with VKA drugs, such as warfarin, the [place] [employer]icians 2012 Guideline recommends [...] Chest 2012, 141:7S-47S Daphne RA, et al. [facility] 2017, 70: 252-289 Performed By: #### C BC, MG1, PHOS, PTT, CMP, PT ####[facility] [place], [place] [phone] PT Sec 11.0 sec Normal 9.7-13.0 [facility] Comment on above: Performed By: #### C BC, MG1, PHOS, PTT, CMP, PT ####[facility] [place], [place] [phone] THERAPY NTon 04-29-2021 THERAPY NT HNO ID: [id number] Author: Neela Prasad, PT Service: Physical Therapy Author Type: Physical Therapist Type: Therapy (PT/OT/Speech/Resp) Filed: 04/29/2021 10:05 AM Note Text: Physical Therapy Evaluation SERVICE DATE: 04/29/2021 SERVICE TIME: 907 to 945 ROOM: [place] [address] Recommended Discharge Disposition: Home Recommended Discharge Disposition [...] trunk posture;Step length decreased;Non-functiona l gait speed [facility]: 7: Walk 25 feet or more [...] Diagnosis: Reduced mobility-other Interventions Provided: Evaluation;Gait Training (49953);Therapeutic Activity (10756) $ Evaluation-Moderate (54344) Billed Units: 1 unit Therapeutic Activity (20575) Treatment Minutes: 8 $ Therapeutic Activity (84307) Billed Units: 1 unit Gait Training (47251) Treatment Minutes: 15 $ Gait Training (22233) Billed Units: 1 unit Training AND education provided in: Bed mobility, Benefits of in-hospital mobility, Discharge planning, Energy conservation, Expected functional level, Gait pattern, reduction of deviations, Positioning, Precautions/restriction s, Role of Physical Therapy, Sitting balance, Standing balance, Transfers, Treatment protocol, Equipment, Assistive device use The following therapeutic skills were used: Activity dosing, Assessment of tolerance includi (more content not included)... Normal [facility] Type and Screenon 04-29-2021 ABO/RH(D) Positive Normal [facility] Comment on above: Performed By: #### T SCR ####[facility] [address] [place], [place] [phone] APTTon 04-28-2021 aPTT Coag (Bld) [Time] 26.6 s Normal 23.0-32.4 [facility] Comment on above: Result Comment: Unfr actionated [...] laboratory APTT reagent in use throughout the [facility]. Performed By: #### P T, PTT, TRIG, CMP, CBC, MG1, PHOS ####[place] [address] [address] [place], [place] [phone] Blood Cultureon 04-28-2021 Bacteria identified Cx Nom (Bld) Culture Result - No growth 5 days Normal [facility] Comment on above: Performed By: #### B LCUL ####[place] [address] [place] [phone] Bacteria identified Cx Nom (Bld) Culture Result - No growth 5 days Normal [facility] Comment on above: Performed By: #### B LCUL ####[place] [address] [place] [phone] CBCon 04-28-2021 Absolute nRBC <0.01 Normal <0.01 [facility] Comment on above: Performed By: #### P T, PTT, TRIG, CMP, CBC, MG1, PHOS ####[place] [address] [place] [phone] Erythrocyte distribution width (RBC) [Ratio] 12.4 % Normal 11.5-15.0 [facility] Comment on above: Performed By: #### P T, PTT, TRIG, CMP, CBC, MG1, PHOS ####[address] [place] [phone] Hematocrit (Bld) [Volume fraction] 36.1 % Normal 36.0-46.0 [facility] Comment on above: Performed By: #### P T, PTT, TRIG, CMP, CBC, MG1, PHOS ####[place] [address] [place] [phone] Hemoglobin (Bld) [Mass/Vol] 11.8 g/dL Normal 11.5-15.5 [facility] Comment on above: Performed By: #### P T, PTT, TRIG, CMP, CBC, MG1, PHOS ####[place] [address] [place], [place] [phone] MCH 30.9 pG Normal 26.0-34.0 [facility] Comment on above: Performed By: #### P T, PTT, TRIG, CMP, CBC, MG1, PHOS ####[place] [address], [place] [phone] MCHC (RBC) [Mass/Vol] 32.7 g/dL Normal 30.5-36.0 [facility] Comment on above: Performed By: #### P T, PTT, TRIG, CMP, CBC, MG1, PHOS ####[address] [phone] MCV (RBC) [Entitic vol] 94.5 fL Normal 80.0-100.0 [facility] Comment on above: Performed By: #### P T, PTT, TRIG, CMP, CBC, MG1, PHOS ####[address] [phone] Platelet mean volume (Bld) [Entitic vol] 9.8 fL Normal 9.0-12.7 [facility] Comment on above: Performed By: #### P T, PTT, TRIG, CMP, CBC, MG1, PHOS ####[address] [place], [place] [phone] Platelets (Bld) [#/Vol] 178 10*3/uL Normal 150-400 [facility] Comment on above: Performed By: #### P T, PTT, TRIG, CMP, CBC, MG1, PHOS ####[place] [address] [place], [place] [phone] RBC (Bld) [#/Vol] 3.82 10*6/uL Low 3.90-5.[address] [facility] Comment on above: Performed By: #### P T, PTT, TRIG, CMP, CBC, MG1, PHOS ####[place] [address], [place] [phone] WBC (Bld) [#/Vol] 11.29 10*3/uL High 3.70-11.00 [facility] Comment on above: Performed By: #### P T, PTT, TRIG, CMP, CBC, MG1, PHOS ####[facility] [address] [place], [place] [phone] CT ABD/PEL W IVCONon 021 CT ABD/PEL W IVCON * * *Final Report* * * DATE OF EXAM: Apr 28 2021 2:10PM [facility] 0530 - CT ABD/PEL W IVCON / [...] chest CT performed will be reported separately. Sound Engineering Technician (topogram) images: No additional findings. IMPRESSION: Resolution of intravenous gas within the abdomen and pelvis. 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 Sealer Operator: PSCB Transcribe Date/Time: Apr 28 2021 2:50P Dictated by : KASHMIR RIVERA MD This examination was interpreted and the report reviewed and electronically signed by: ELIAS WOODY MD on Apr 28 2021 4:13PM EST [id number] Normal [facility] CT CHEST W IVCONon CT CHEST W IVCON * * *Final Report* * * DATE OF EXAM: Apr 28 2021 2:10PM [facility] 0539 - CT CHEST W IVCON / [...] There is minimal intrahepatic biliary ductal dilation. Sound Engineering Technician (topogram) images: No additional findings. IMPRESSION: 1. No CT evidence of air embolism within the systemic veins, right-sided heart chambers, central pulmonary arteries and hepatic veins. 2. Posterior complete LEFT lower lobe, partially dependent RIGHT lower lobe and dependent LEFT upper lobe atelectasis. Given the distribution, this finding may be related to aspiration. Trace bilateral pleural effusions. Sealer Operator: ANEL Transcribe Date/Time: Apr 28 2021 3:35P Dictated by : MICHELLE PETERSEN MD This examination was interpreted and the report reviewed and electronically signed by: MICHELLE PETERSEN MD on Apr 28 2021 3:45PM EST [id number] Normal [facility] Comp Metabolic Panelon 04-28 Albumin [Mass/Vol] 3.0 g/dL Low 3.9-4.9 [facility] Comment on above: Performed By: #### P T, PTT, TRIG, CMP, CBC, MG1, PHOS ####[facility] [address] [place], [place] [phone] ALP [Catalytic activity/Vol] 36 U/L Normal 34-123 [facility] Comment on above: Performed By: #### P T, PTT, TRIG, CMP, CBC, MG1, PHOS ####[facility] [place], [place] [phone] ALT [Catalytic activity/Vol] 32 U/L Normal 7-38 [facility] Comment on above: Performed By: #### P T, PTT, TRIG, CMP, CBC, MG1, PHOS ####[place] [address] [address], [place] [phone] Anion gap [Moles/Vol] 10 mmol/L Normal 9-18 [facility] Comment on above: Performed By: #### P T, PTT, TRIG, CMP, CBC, MG1, PHOS ####[address] [phone] AST [Catalytic activity/Vol] 102 U/L High 13-35 [facility] Comment on above: Performed By: #### P T, PTT, TRIG, CMP, CBC, MG1, PHOS ####[address], [place] [phone] Bilirubin [Mass/Vol] 0.3 mg/dL Normal 0.2-1.3 [facility] Comment on above: Performed By: #### P T, PTT, TRIG, CMP, CBC, MG1, PHOS ####[address] [phone] Calcium [Mass/Vol] 7.9 mg/dL Low 8.5-10.2 [facility] Comment on above: Performed By: #### P T, PTT, TRIG, CMP, CBC, MG1, PHOS ####[address] [phone] Chloride [Moles/Vol] 107 mmol/L High 97-105 [facility] Comment on above: Performed By: #### P T, PTT, TRIG, CMP, CBC, MG1, PHOS ####[place] [address] [address], [place] [phone] CO2 [Moles/Vol] 25 mmol/L Normal 22-30 [facility] Comment on above: Performed By: #### P T, PTT, TRIG, CMP, CBC, MG1, PHOS ####[place] [address] [place], [place] [phone] Creatinine [Mass/Vol] 0.85 mg/dL Normal 0.58-0.96 [facility] Comment on above: Performed By: #### P T, PTT, TRIG, CMP, CBC, MG1, PHOS ####[facility] [place], [place] [phone] eGFR- Amer. >60 Normal [facility] Comment on above: Performed By: #### P T, PTT, TRIG, CMP, CBC, MG1, PHOS ####[facility] [place] [address] [phone] eGFR-All Other Races >60 Normal [facility] Comment on above: Result Comment: eGFR (Estimated [...] T, PTT, TRIG, CMP, CBC, MG1, PHOS ####[place] [id number] [place], [place] [phone] Glucose [Mass/Vol] 86 mg/dL Normal 74-99 [facility] Comment on above: Result Comment: The [place] Diabetes Association (ADA) provides guidance for cutoff [...] Standards of Medical Care in Diabetes 2016, [place] [employer]. Diabetes Care. 2016.39(Suppl 1). Performed By: #### P T, PTT, TRIG, CMP, CBC, MG1, PHOS ####[address] [phone] Potassium [Moles/Vol] 3.8 mmol/L Normal 3.7-5.1 [facility] Comment on above: Performed By: #### P T, PTT, TRIG, CMP, CBC, MG1, PHOS ####[place] [phone] Protein [Mass/Vol] 5.2 g/dL Low 6.3-8.0 [facility] Comment on above: Performed By: #### P T, PTT, TRIG, CMP, CBC, MG1, PHOS ####[address] [phone] Sodium [Moles/Vol] 142 mmol/L Normal 136-144 [facility] Comment on above: Performed By: #### P T, PTT, TRIG, CMP, CBC, MG1, PHOS ####[place] [phone] Urea nitrogen [Mass/Vol] 15 mg/dL Normal 7-21 [facility] Comment on above: Performed By: #### P T, PTT, TRIG, CMP, CBC, MG1, PHOS ####[address] [phone] GASV + ALLon 04-28-2021 Base Excess 2 mmol/L Normal [facility] Comment on above: Performed By: #### V ALLBG ####[address] [phone] Blood Gas Comm, Ziyad . Normal [facility] Comment on above: Performed By: #### V ALLBG ####[address] [phone] Body temperature 98.6 [degF] Normal [facility] Comment on above: Performed By: #### V ALLBG ####[place] [address] [place], [place] [phone] Calcium [Moles/Vol] 1.18 mmol/L Normal 1.08-1.30 [facility] Comment on above: Performed By: #### V ALLBG ####[place] [address] [place], [place] [phone] Carboxyhemoglobin, Ziyad 0.7 % Normal <2.1 [facility] Comment on above: Performed By: #### V ALLBG ####[place] [address] [place], [place] [phone] CO2 [Moles/Vol] 30 mmol/L High 25-29 [facility] Comment on above: Performed By: #### V ALLBG ####[place] [address], [place] [phone] Glucose [Mass/Vol] 90 mg/dL Normal 60-105 [facility] Comment on above: Performed By: #### V ALLBG ####[place] [address] [address], [place] [phone] HCO3 (Bld) [Moles/Vol] 29 mmol/L High 24-28 [facility] Comment on above: Performed By: #### V ALLBG ####[place] [address] [place], [place] [phone] Hematocrit (Bld) [Volume fraction] 37.7 % Normal 36.0-46.0 [facility] Comment on above: Performed By: #### V ALLBG ####[place] [address] [place], [place] [phone] Hemoglobin (Bld) [Mass/Vol] 12.3 g/dL Normal 11.5-15.5 [facility] Comment on above: Performed By: #### V ALLBG ####[place] [address] [place], [place] [phone] Lactate [Moles/Vol] 0.9 mmol/L Normal 0.5-2.2 [facility] Comment on above: Performed By: #### V ALLBG ####[place] [address] [address] [place], [place] [phone] Methemoglobin 1.5 % Normal <1.6 [facility] Comment on above: Performed By: #### V ALLBG ####[place] [address] [phone] O2 Administered 100% Normal [facility] Comment on above: Performed By: #### V ALLBG ####[place] [address] [place] [phone] Oxyhemoglobin, Ziyad. 83 % Normal 60-85 [facility] Comment on above: Performed By: #### V ALLBG ####[place] [address] [phone] pCO2 57 mm Hg High 42-55 [facility] Comment on above: Performed By: #### V ALLBG ####[place] [address] [phone] pCO2, Temp Correct 57 mm Hg High 42-55 [facility] Comment on above: Performed By: #### V ALLBG ####[place] [address] [phone] pH (Bld) 7.32 [pH] Normal 7.32-7.42 [facility] Comment on above: Performed By: #### V ALLBG ####[place] [address] [place], [place] [phone] pH, Temp Corrected 7.32 Normal 7.32-7.42 [facility] Comment on above: Performed By: #### V ALLBG ####[place] [address], [place] [phone] pO2 54 mm Hg High 35-45 [facility] Comment on above: Performed By: #### V ALLBG ####[place] [address] [place], [place] [phone] pO2, Temp Corrected 54 mm Hg High 35-45 [facility] Comment on above: Performed By: #### V ALLBG ####[address] [phone] Potassium [Moles/Vol] 3.8 mmol/L Normal 3.5-5.0 [facility] Comment on above: Performed By: #### V ALLBG ####[place] [address] [place], [place] [phone] Sodium [Moles/Vol] 142 mmol/L Normal 136-144 [facility] Comment on above: Performed By: #### V ALLBG ####[address] [phone] Magnesiumon 04-28-2021 Magnesium [Mass/Vol] 2.0 mg/dL Normal 1.7-2.3 [facility] Comment on above: Performed By: #### P T, PTT, TRIG, CMP, CBC, MG1, PHOS ####[address] [phone] NURSING PROGon 04-28-2021 NURSING PROG HNO ID: [id number] Author: Laura Mullins, JOSE Service: ? Author Type: Registered Nurse Type: Nursing Progress Note Filed: 04/28/2021 8:01 PM Note Text: Nursing Progress: Topic: RESTRAINT NON-VIOLENT PATIENT NAME: Oscar Pineda PATIENT LOCATION: [place] [address] The patient demonstrates Attempting to Remove Medical [...] 2021 TIME: 8:01 PM Laura Mullins RN [facility] NURSING PROG HNO ID: [id number] Author: Rob Guerra RN Service: Radiology Author [...] DATE: April 28, 2021 TIME: 2:08 PM [facility] NURSING PROG HNO ID: [id number] Author: Yumiko Molina RN Service: ? Author Type: Registered Nurse Type: Nursing Progress Note Filed: 04/28/2021 2:57 PM Note Text: Nursing Progress Note Patient Name: Oscar Pineda Patient Location: [place] [address] 1200 IR at bedside, advised transfer to CT table while still in trendelenburg trial patient supine, still in trendelenburg. Tolerating [address], notified of positioning requirements 1345 PIPE BUFFER, resident, two RT's, and two RN's at bedside for transport. Pt on telemetry/ continuous monitoring. CT and IR LIP notified. [address] imaging table, trendelenburg positioning maintained [address] and gave verbal OK to transition HOB flat then elevated (as tolerated) 1420 patient in SICU, HOB flat. Tolerating This note was completed by: Yumiko Molina [facility] NURSING PROG HNO ID: [id number] Author: Yumiko Molina RN Service: ? Author Type: Registered Nurse Type: Nursing Progress Note Filed: 04/28/2021 1:22 PM Note Text: Nursing Progress: Topic: RESTRAINT NON-VIOLENT PATIENT NAME: Oscar Pineda PATIENT LOCATION: [place] [id number]/G053-09 The patient demonstrates Attempting to Remove Medical Devices Vital to Medical Stability as evidenced by the following behaviors attempting to remove claim review medical director which pose an imminent danger to self [...] 2021 TIME: 8:00AM Yumiko Molina RN Normal [facility] Phosphoruson 04-28-2021 Phosphate [Mass/Vol] 2.3 mg/dL Low 2.7-4.8 [facility] Comment on above: Performed By: #### P T, PTT, TRIG, CMP, CBC, MG1, PHOS ####[facility] [place], [place] [phone] Protimeon 04-28-2021 PT INR 1.0 Normal 0.9-1.3 [facility] Comment on above: Result Comment: Neha min K Antagonist (VKA) Therapeutic Range: INR 2 to 3 (Target INR of 2.5) Note: For patients treated with VKA drugs, such as warfarin, the [place] [employer] 2012 Guideline recommends [...] Chest 2012, 141:7S-47S Daphne PEDERSON et al. [facility] 2017, 70: 252-289 Performed By: #### P T, PTT, TRIG, CMP, CBC, MG1, PHOS ####[facility], [place] [phone] PT Sec 11.0 sec Normal 9.7-13.0 [facility] Comment on above: Performed By: #### P T, PTT, TRIG, CMP, CBC, MG1, PHOS ####[facility] [place], [place] [phone] Respiratory Cult/Stainon Respiratory Cult/Stain Sp. Request/Comment: - Specimen received in sterile container. Smear Result - Rare Mixed oral kaylynn Many Polymorphonuclear leukocytes Rare Epithelial cells Culture Result - Few Staphylococcus aureus --> ABNORMAL ALERT Insignificant colony count. No further workup. --> ABNORMAL ALERT Few Normal respiratory kaylynn present Critically abnormal [facility] Comment on above: Performed By: #### R CULST ####[address] [phone] Triglycerideon 04-28-2021 Fasting Time Unknown Normal [facility] Comment on above: Performed By: #### P T, PTT, TRIG, CMP, CBC, MG1, PHOS ####[place] [id number] [place], [place] [phone] Triglyceride [Mass/Vol] 155 mg/dL High <150 [facility] Comment on above: Result Comment: <150 mg/dL, Normal 150-199 mg/dL, Borderline high 200-499 mg/dL, High >499 mg/dL, Very high Reference: 1. National Cholesterol Education Program ATP III Guideline At-A-Glance Quick Desk Reference: National Heart, Lung, and Blood [place]. National Institutes of Health. 2001: NIH Publication No. 01-3305. Performed By: #### P T, PTT, TRIG, CMP, CBC, MG1, PHOS ####[place] [id number] [place], [place] [phone] Urinalysison 04-28-2021 Bilirubin, Urine Negative Normal Negative [facility] Comment on above: Performed By: #### U A ####[place] [address] [place] [phone] Clarity (U) Clear Normal Clear [facility] Comment on above: Performed By: #### U A ####[place] [phone] Color (U) Light Yellow Critically abnormal Yellow [facility] Comment on above: Performed By: #### U A ####[place] [phone] Comments SEE COMMENT Normal [facility] Comment on above: Result Comment: Micr oscopic not warranted Performed By: #### U A ####[place] [phone] Glucose Ql (U) Negative Normal Negative [facility] Comment on above: Performed By: #### U A ####[place] [phone] Hemoglobin/Blood,U r Negative Normal Negative [facility] Comment on above: Performed By: #### U A ####[place] [phone] Ketones Ql (U) 1+ Critically abnormal Negative [facility] Comment on above: Performed By: #### U A ####[place] [phone] Leukest Negative Normal Negative [facility] Comment on above: Performed By: #### U A ####[place] [address] [place] [phone] Nitrite Ql (U) Negative Normal Negative [facility] Comment on above: Performed By: #### U A ####[place] [phone] pH (U) 5.0 [pH] Normal 5.0-8.0 [facility] Comment on above: Performed By: #### U A ####[place] [address], [place] [phone] Protein, Urine Negative Normal Negative [facility] Comment on above: Performed By: #### U A ####[place] [address] [place], [place] [phone] Specific Excello, Ur 1.023 Normal 1.005-1.030 [facility] Comment on above: Performed By: #### U A ####[place] [address], [place] [phone] Urine Karl Comment SEE COMMENT Normal [facility] Comment on above: Result Comment: N/A Performed By: #### U A ####[place] [address], [place] [phone] Urobilinogen (U) [Mass/Vol] Negative Normal Negative [facility] Comment on above: Performed By: #### U A ####[place] [address], [place] [phone] APTTon 04-27-2021 aPTT Coag (Bld) [Time] 21.9 s Low 23.0-32.4 [facility] Comment on above: Result Comment: Unfr actionated [...] laboratory APTT reagent in use throughout the [facility]. Performed By: #### P HOS, CMP, PTT, CBC, MG1, PT ####[place] [address] [place], [place] [phone] CBCon 10-09-2021 Absolute nRBC <0.01 Normal <0.01 [facility] Comment on above: Performed By: #### P HOS, CMP, PTT, CBC, MG1, PT ####[place] [address] [place] [phone] Erythrocyte distribution width (RBC) [Ratio] 11.9 % Normal 11.5-15.0 [facility] Comment on above: Performed By: #### P HOS, CMP, PTT, CBC, MG1, PT ####[address] [phone] Hematocrit (Bld) [Volume fraction] 39.3 % Normal 36.0-46.0 [facility] Comment on above: Performed By: #### P HOS, CMP, PTT, CBC, MG1, PT ####[place] [phone] Hemoglobin (Bld) [Mass/Vol] 13.3 g/dL Normal 11.5-15.5 [facility] Comment on above: Performed By: #### P HOS, CMP, PTT, CBC, MG1, PT ####[place] [phone] MCH 31.0 pG Normal 26.0-34.0 [facility] Comment on above: Performed By: #### P HOS, CMP, PTT, CBC, MG1, PT ####[address] [phone] MCHC (RBC) [Mass/Vol] 33.8 g/dL Normal 30.5-36.0 [facility] Comment on above: Performed By: #### P HOS, CMP, PTT, CBC, MG1, PT ####[place] [address] [phone] MCV (RBC) [Entitic vol] 91.6 fL Normal 80.0-100.0 [facility] Comment on above: Performed By: #### P HOS, CMP, PTT, CBC, MG1, PT ####[place] [address], [place] [phone] Platelet mean volume (Bld) [Entitic vol] 9.8 fL Normal 9.0-12.7 [facility] Comment on above: Performed By: #### P HOS, CMP, PTT, CBC, MG1, PT ####[address] [place], [place] [phone] Platelets (Bld) [#/Vol] 242 10*3/uL Normal 150-400 [facility] Comment on above: Performed By: #### P HOS, CMP, PTT, CBC, MG1, PT ####[address], [place] [phone] RBC (Bld) [#/Vol] 4.29 10*6/uL Normal 3.90-5.[address] [facility] Comment on above: Performed By: #### P HOS, CMP, PTT, CBC, MG1, PT ####[address] [phone] WBC (Bld) [#/Vol] 17.39 10*3/uL High 3.70-11.00 [place] [facility] Comment on above: Performed By: #### P HOS, CMP, PTT, CBC, MG1, PT ####[address] [phone] Comp Metabolic Panelon 04-27 Albumin [Mass/Vol] 3.9 g/dL Normal 3.9-4.9 [facility] Comment on above: Performed By: #### P HOS, CMP, PTT, CBC, MG1, PT ####[address] [place], [place] [phone] ALP [Catalytic activity/Vol] 41 U/L Normal 34-123 [facility] Comment on above: Performed By: #### P HOS, CMP, PTT, CBC, MG1, PT ####[facility], [place] [phone] ALT [Catalytic activity/Vol] 26 U/L Normal 7-38 [facility] Comment on above: Performed By: #### P HOS, CMP, PTT, CBC, MG1, PT ####[place] [address] [place], [place] [phone] Anion gap [Moles/Vol] 10 mmol/L Normal 9-18 [facility] Comment on above: Performed By: #### P HOS, CMP, PTT, CBC, MG1, PT ####[place] [address] [place], [place] [phone] AST [Catalytic activity/Vol] 63 U/L High 13-35 [facility] Comment on above: Performed By: #### P HOS, CMP, PTT, CBC, MG1, PT ####[place] [address] [place], [place] [phone] Bilirubin [Mass/Vol] 0.5 mg/dL Normal 0.2-1.3 [facility] Comment on above: Performed By: #### P HOS, CMP, PTT, CBC, MG1, PT ####[place] [address] [place], [place] [phone] Calcium [Mass/Vol] 8.6 mg/dL Normal 8.5-10.2 [facility] Comment on above: Performed By: #### P HOS, CMP, PTT, CBC, MG1, PT ####[place] [address] [place], [place] [phone] Chloride [Moles/Vol] 109 mmol/L High 97-105 [facility] Comment on above: Performed By: #### P HOS, CMP, PTT, CBC, MG1, PT ####[place] [address] [place], [place] [phone] CO2 [Moles/Vol] 23 mmol/L Normal 22-30 [facility] Comment on above: Performed By: #### P HOS, CMP, PTT, CBC, MG1, PT ####[facility] [place] [address] [phone] Creatinine [Mass/Vol] 0.76 mg/dL Normal 0.58-0.96 [facility] Comment on above: Performed By: #### P HOS, CMP, PTT, CBC, MG1, PT ####[address] [phone] eGFR- Amer. >60 Normal [facility] Comment on above: Performed By: #### P HOS, CMP, PTT, CBC, MG1, PT ####[address] [phone] eGFR-All Other Races >60 Normal [facility] Comment on above: Result Comment: eGFR (Estimated [...] HOS, CMP, PTT, CBC, MG1, PT ####[address] [phone] Glucose [Mass/Vol] 119 mg/dL High 74-99 [facility] Comment on above: Result Comment: The [place] Diabetes Association (ADA) provides guidance for cutoff [...] Standards of Medical Care in Diabetes 2016, [place] [employer] Association. Diabetes Care. 2016.39(Suppl 1). Performed By: #### P HOS, CMP, PTT, CBC, MG1, PT ####[place] [address] [place], [place] [phone] Potassium [Moles/Vol] 4.0 mmol/L Normal 3.7-5.1 [facility] Comment on above: Performed By: #### P HOS, CMP, PTT, CBC, MG1, PT ####[address] [phone] Protein [Mass/Vol] 5.9 g/dL Low 6.3-8.0 [facility] Comment on above: Performed By: #### P HOS, CMP, PTT, CBC, MG1, PT ####[address] [phone] Sodium [Moles/Vol] 142 mmol/L Normal 136-144 [facility] Comment on above: Performed By: #### P HOS, CMP, PTT, CBC, MG1, PT ####[address] [phone] Urea nitrogen [Mass/Vol] 13 mg/dL Normal 7-21 [facility] Comment on above: Performed By: #### P HOS, CMP, PTT, CBC, MG1, PT ####[address] [phone] GASV + ALLon 04-27-2021 Base Excess 1 mmol/L Normal [facility] Comment on above: Performed By: #### V ALLBG ####[address] [phone] Blood Gas Comm, Ziyad . Normal [facility] Comment on above: Performed By: #### V ALLBG ####[facility], [place] [phone] Body temperature 98.6 [degF] Normal [facility] Comment on above: Performed By: #### V ALLBG ####[facility] [phone] Calcium [Moles/Vol] 1.21 mmol/L Normal 1.08-1.30 [facility] Comment on above: Performed By: #### V ALLBG ####[place] [address] [place] [phone] Carboxyhemoglobin, Ziyad 0.7 % Normal <2.1 [facility] Comment on above: Performed By: #### V ALLBG ####[place] [address] [place] [phone] CO2 [Moles/Vol] 29 mmol/L Normal 25-29 [facility] Comment on above: Performed By: #### V ALLBG ####[place] [address] [place] [phone] Glucose [Mass/Vol] 97 mg/dL Normal 60-105 [facility] Comment on above: Performed By: #### V ALLBG ####[place] [address] [place] [phone] HCO3 (Bld) [Moles/Vol] 27 mmol/L Normal 24-28 [facility] Comment on above: Performed By: #### V ALLBG ####[facility] [place] [phone] Hematocrit (Bld) [Volume fraction] 38.2 % Normal 36.0-46.0 [facility] Comment on above: Performed By: #### V ALLBG ####[place] [address] [place] [phone] Hemoglobin (Bld) [Mass/Vol] 12.4 g/dL Normal 11.5-15.5 [facility] Comment on above: Performed By: #### V ALLBG ####[place] [address] [place] [phone] Lactate [Moles/Vol] 1.1 mmol/L Normal 0.5-2.2 [facility] Comment on above: Performed By: #### V ALLBG ####[place] [address] [place] [phone] Methemoglobin 0.7 % Normal <1.6 [facility] Comment on above: Performed By: #### V ALLBG ####[place] [address] [place] [phone] O2 Administered 100% Normal [facility] Comment on above: Performed By: #### V ALLBG ####[place] [address] [place] [phone] Oxyhemoglobin, Ziyad. 92 % High 60-85 [facility] Comment on above: Performed By: #### V ALLBG ####[place] [address] [place] [phone] pCO2 53 mm Hg Normal 42-55 [facility] Comment on above: Performed By: #### V ALLBG ####[place] [address] [place] [phone] pCO2, Temp Correct 53 mm Hg Normal 42-55 [facility] Comment on above: Performed By: #### V ALLBG ####[place] [address] [place] [phone] pH (Bld) 7.33 [pH] Normal 7.32-7.42 [facility] Comment on above: Performed By: #### V ALLBG ####[place] [address] [place], [place] [phone] pH, Temp Corrected 7.33 Normal 7.32-7.42 [facility] Comment on above: Performed By: #### V ALLBG ####[facility] [place] [phone] pO2 70 mm Hg High 35-45 [facility] Comment on above: Performed By: #### V ALLBG ####[facility], [place] [phone] pO2, Temp Corrected 70 mm Hg High 35-45 [facility] Comment on above: Performed By: #### V ALLBG ####[place] [address] [place] [phone] Potassium [Moles/Vol] 3.9 mmol/L Normal 3.5-5.0 [facility] Comment on above: Performed By: #### V ALLBG ####[place] [address] [place] [phone] Sodium [Moles/Vol] 143 mmol/L Normal 136-144 [facility] Comment on above: Performed By: #### V ALLBG ####[place] [address] [place] [phone] Base Excess 0 mmol/L Normal [facility] Comment on above: Performed By: #### V ALLBG ####[place] [address], [place] [phone] Blood Gas Comm, Ziyad . Normal [facility] Comment on above: Performed By: #### V ALLBG ####[facility], [place] [phone] Body temperature 98.6 [degF] Normal [facility] Comment on above: Performed By: #### V ALLBG ####[place] [address], [place] [phone] Calcium [Moles/Vol] 1.22 mmol/L Normal 1.08-1.30 [facility] Comment on above: Performed By: #### V ALLBG ####[facility] [place] [phone] Carboxyhemoglobin, Ziyad 0.6 % Normal <2.1 [facility] Comment on above: Performed By: #### V ALLBG ####[place] [address] [address] [place] [phone] CO2 [Moles/Vol] 27 mmol/L Normal 25-29 [facility] Comment on above: Performed By: #### V ALLBG ####[place] [address] [place] [phone] Glucose [Mass/Vol] 130 mg/dL High 60-105 [facility] Comment on above: Performed By: #### V ALLBG ####[place] [address] [place] [phone] HCO3 (Bld) [Moles/Vol] 26 mmol/L Normal 24-28 [facility] Comment on above: Performed By: #### V ALLBG ####[place] [address] [place] [phone] Hematocrit (Bld) [Volume fraction] 42.7 % Normal 36.0-46.0 [facility] Comment on above: Performed By: #### V ALLBG ####[place] [address] [place] [phone] Hemoglobin (Bld) [Mass/Vol] 13.9 g/dL Normal 11.5-15.5 [facility] Comment on above: Performed By: #### V ALLBG ####[place] [address] [place] [phone] Lactate [Moles/Vol] 1.3 mmol/L Normal 0.5-2.2 [facility] Comment on above: Performed By: #### V ALLBG ####[place] [address] [place] [phone] Methemoglobin 1.1 % Normal <1.6 [facility] Comment on above: Performed By: #### V ALLBG ####[place] [address] [place] [phone] O2 Administered 100% Normal [facility] Comment on above: Performed By: #### V ALLBG ####[place] [phone] Oxyhemoglobin, Ziyad. 88 % High 60-85 [facility] Comment on above: Performed By: #### V ALLBG ####[place] [address] [place] [phone] pCO2 49 mm Hg Normal 42-55 [facility] Comment on above: Performed By: #### V ALLBG ####[address] [place] [place] [phone] pCO2, Temp Correct 49 mm Hg Normal 42-55 [facility] Comment on above: Performed By: #### V ALLBG ####[place] [address] [place] [place] [phone] pH (Bld) 7.34 [pH] Normal 7.32-7.42 [facility] Comment on above: Performed By: #### V ALLBG ####[place] [address] [address] [place] [phone] pH, Temp Corrected 7.34 Normal 7.32-7.42 [facility] Comment on above: Performed By: #### V ALLBG ####[place] [address] [address] [place] [phone] pO2 64 mm Hg High 35-45 [facility] Comment on above: Performed By: #### V ALLBG ####[place] [address] [address] [phone] pO2, Temp Corrected 64 mm Hg High 35-45 [facility] Comment on above: Performed By: #### V ALLBG ####[place] [id number] [place], [place] [phone] Potassium [Moles/Vol] 4.1 mmol/L Normal 3.5-5.0 [facility] Comment on above: Performed By: #### V ALLBG ####[address] [phone] Sodium [Moles/Vol] 142 mmol/L Normal 136-144 [facility] Comment on above: Performed By: #### V ALLBG ####[address] [phone] Magnesiumon 04-27-2021 Magnesium [Mass/Vol] 2.2 mg/dL Normal 1.7-2.3 [facility] Comment on above: Performed By: #### P HOS, CMP, PTT, CBC, MG1, PT ####[address] [phone] NURSING PROGon 04-27-2021 NURSING PROG HNO ID: [id number] Author: Jack Richards RN Service: Nursing Author Type: Registered Nurse Type: Nursing Progress Note Filed: 04/27/2021 10:46 PM Note Text: Nursing Progress: Topic: RESTRAINT NON-VIOLENT PATIENT NAME: Oscar Pineda PATIENT LOCATION: [place] [address] The patient demonstrates Lack of Understanding/Ability to [...] 2021 TIME: 10:00 PM Jack Richards RN [facility] NURSING PROG HNO ID: [id number] Author: Karsten Goldsmith RN Service: Nursing Author Type: Registered Nurse Type: Nursing Progress Note Filed: 04/27/2021 8:51 AM Note Text: Nursing Progress: Topic: RESTRAINT NON-VIOLENT PATIENT NAME: Oscar Pineda PATIENT LOCATION: [place] [address] The patient demonstrates Lack of Understanding/Ability to [...] TIME: 8:51 AM Karsten Goldsmith RN Normal [facility] Phosphoruson 04-27-2021 Phosphate [Mass/Vol] 3.3 mg/dL Normal 2.7-4.8 [facility] Comment on above: Performed By: #### P HOS, CMP, PTT, CBC, MG1, PT ####[facility] [address] [place], [place] [phone] Protimeon 04-27-2021 PT INR 1.1 Normal 0.9-1.3 [facility] Comment on above: Result Comment: Neha min K Antagonist (VKA) Therapeutic Range: INR 2 to 3 (Target INR of 2.5) Note: For patients treated with VKA drugs, such as warfarin, the [place] [employer] 2012 Guideline recommends [...] Chest 2012, 141:7S-47S Daphne RA, et al. [facility] 2017, 70: 252-289 Performed By: #### P HOS, CMP, PTT, CBC, MG1, PT ####[facility], [place] [phone] PT Sec 11.2 sec Normal 9.7-13.0 [facility] Comment on above: Performed By: #### P HOS, CMP, PTT, CBC, MG1, PT ####[facility] [address] [place], [place] [phone] US ABDOMEN LTDon 04-27-2021 US ABDOMEN LTD * * *Final Report* * * DATE OF EXAM: Apr 27 2021 12:24PM [facility] 1064 - US ABDOMEN [...] within the hepatic veins or visualized IVC. Sealer Operator: PSCB Transcribe Date/Time: Apr 27 2021 12:34P Dictated by : POONAM BLUM MD This examination was interpreted and the report reviewed and electronically signed by: ALICIA MENDOZA MD on Apr 27 2021 2:57PM EST [id number] Normal [facility] XR CHEST 1V FRONTALon 2020 XR CHEST [...] cardiomediastinal silhouette. Other: . IMPRESSION: See result. Sealer Operator: PSCB Transcribe Date/Time: Apr 27 2021 10:29A Dictated by : TAYLOR CORONA MD This examination was interpreted and the report reviewed and electronically signed by: TAYLOR CORONA MD on Apr 27 2021 10:31AM EST [id number] Normal [facility] ANES Sachin 04-26-2021 ANES POST HNO ID: [id number] Author: Tamara Brown DO Service: Anesthesiology Author [...] 26, 2021 TIME: 2:26 PM PAGER/CONTACT #: [id number] Normal [facility] APTTon 04-26-2021 aPTT Coag (Bld) [Time] 22.2 s Low 23.0-32.4 [facility] Comment on above: Result Comment: Unfr actionated [...] laboratory APTT reagent in use throughout the [facility]. Performed By: #### C BC, MG1, PT, PTT, BMP, PHOS ####[facility] [address] [place], [place] [phone] BRIEF OP NOTon 04-26-2021 BRIEF OP NOT HNO ID: [id number] Author: Kayce Wagner MD Service: Radiology Author Type: Physician Type: Brief Op Note Filed: 04/26/2021 3:28 PM Note Text: BRIEF OPERATIVE / PROCEDURE NOTE LOG ID: [id number] SURGERY/PROCEDURE DATE: 04/26/2021 INCISION/PROCEDURE START TIME: 9:25 AM INCISION CLOSE/PROCEDURE END TIME: 11:20 AM SURGEON(S)/PROCEDURALIS T(S) AND STOCK MOVER(S): Surgeon(s) and Role: * Kayce Wagner MD [...] DATE: April 26, 2021 TIME: 2:59 PM [phone] Normal [facility] Basic Metabolic Panlon 04-26 Anion gap [Moles/Vol] 11 mmol/L Normal 9-18 [facility] Comment on above: Performed By: #### C BC, MG1, PT, PTT, BMP, PHOS ####[facility] [address] [place], [place] [phone] Calcium [Mass/Vol] 8.3 mg/dL Low 8.5-10.2 [facility] Comment on above: Performed By: #### C BC, MG1, PT, PTT, BMP, PHOS ####[place] [phone] Chloride [Moles/Vol] 107 mmol/L High 97-105 [facility] Comment on above: Performed By: #### C BC, MG1, PT, PTT, BMP, PHOS ####[place] [phone] CO2 [Moles/Vol] 22 mmol/L Normal 22-30 [facility] Comment on above: Performed By: #### C BC, MG1, PT, PTT, BMP, PHOS ####[place] [phone] Creatinine [Mass/Vol] 0.74 mg/dL Normal 0.58-0.96 [facility] Comment on above: Performed By: #### C BC, MG1, PT, PTT, BMP, PHOS ####[place] [phone] eGFR- Amer. >60 Normal [facility] Comment on above: Performed By: #### C BC, MG1, PT, PTT, BMP, PHOS ####[address] [phone] eGFR-All Other Races >60 Normal [facility] Comment on above: Result Comment: eGFR (Estimated [...] C BC, MG1, PT, PTT, BMP, PHOS ####[place] [phone] Glucose [Mass/Vol] 178 mg/dL High 74-99 [facility] Comment on above: Result Comment: The [place] Diabetes Association (ADA) provides guidance for cutoff [...] Standards of Medical Care in Diabetes 2016, [place] [employer] Association. Diabetes Care. 2016.39(Suppl 1). Performed By: #### C BC, MG1, PT, PTT, BMP, PHOS ####[address] [phone] Potassium [Moles/Vol] 4.1 mmol/L Normal 3.7-5.1 [facility] Comment on above: Performed By: #### C BC, MG1, PT, PTT, BMP, PHOS ####[address] [phone] Sodium [Moles/Vol] 140 mmol/L Normal 136-144 [facility] Comment on above: Performed By: #### C BC, MG1, PT, PTT, BMP, PHOS ####[address] [phone] Urea nitrogen [Mass/Vol] 14 mg/dL Normal 7-21 [facility] Comment on above: Performed By: #### C BC, MG1, PT, PTT, BMP, PHOS ####[address] [phone] CBCon 04-26-2021 Absolute nRBC <0.01 Normal <0.01 [facility] Comment on above: Performed By: #### C BC, MG1, PT, PTT, BMP, PHOS ####[place] [address] [address] [place] [phone] Erythrocyte distribution width (RBC) [Ratio] 11.9 % Normal 11.5-15.0 [facility] Comment on above: Performed By: #### C BC, MG1, PT, PTT, BMP, PHOS ####[place] [address] [address] [place] [phone] Hematocrit (Bld) [Volume fraction] 38.5 % Normal 36.0-46.0 [facility] Comment on above: Performed By: #### C BC, MG1, PT, PTT, BMP, PHOS ####[place] [address] [address] [place] [phone] Hemoglobin (Bld) [Mass/Vol] 13.2 g/dL Normal 11.5-15.5 [facility] Comment on above: Performed By: #### C BC, MG1, PT, PTT, BMP, PHOS ####[place] [address] [address] [place] [phone] MCH 31.7 pG Normal 26.0-34.0 [facility] Comment on above: Performed By: #### C BC, MG1, PT, PTT, BMP, PHOS ####[place] [address] [address] [place] [phone] MCHC (RBC) [Mass/Vol] 34.3 g/dL Normal 30.5-36.0 [facility] Comment on above: Performed By: #### C BC, MG1, PT, PTT, BMP, PHOS ####[place] [address] [address] [place] [phone] MCV (RBC) [Entitic vol] 92.3 fL Normal 80.0-100.0 [facility] Comment on above: Performed By: #### C BC, MG1, PT, PTT, BMP, PHOS ####[place] [address] [address], [place] [phone] Platelet mean volume (Bld) [Entitic vol] 9.6 fL Normal 9.0-12.7 [facility] Comment on above: Performed By: #### C BC, MG1, PT, PTT, BMP, PHOS ####[facility] [place], [place] [phone] Platelets (Bld) [#/Vol] 227 10*3/uL Normal 150-400 [facility] Comment on above: Performed By: #### C BC, MG1, PT, PTT, BMP, PHOS ####[place] [address] [place], [place] [phone] RBC (Bld) [#/Vol] 4.17 10*6/uL Normal 3.90-5.[address] [facility] Comment on above: Performed By: #### C BC, MG1, PT, PTT, BMP, PHOS ####[place] [address] [place], [place] [phone] WBC (Bld) [#/Vol] 17.98 10*3/uL High 3.70-11.00 [place] [facility] Comment on above: Performed By: #### C BC, MG1, PT, PTT, BMP, PHOS ####[place] [address] [place], [place] [phone] CONSULTon 04-26-2021 CONSULT HNO ID: [id number] Author: Jose M Cedillo MD Service: Interventional [...] Oscar BRITTON (more content not included)... Normal [facility] CONSULT HNO ID: [id number] Author: Oneida Ruano MD Service: Cardiovascular Medicine Author Type: Physician Type: Consults Filed: 04/27/2021 2:36 PM Note Text: [facility] CONSULT NOTE Oscar Pineda [id number] CONSULTING SERVICE: SICU DATE OF ADMISSION: 04/26/2021 [...] Problems: # (more content not included)... Normal [facility] CT ABLATION MSK NOT BONE ALDO ORon 04-26-2021 CT ABLATION MSK NOT BONE TUMOR * * *Final Report* * * * * * SEE BOTTOM OF REPORT FOR ADDENDED TEXT * * * DATE OF EXAM: Apr 26 2021 11:24AM [facility] 2066 - CT ABLATION MSK NOT BONE TUMOR / PROCEDURE REASON: R19.36-[id number] and pelvic swelling, mass and lump, unspecified [...] for fur (more content not included)... Normal [facility] CT BRAIN WO IVCONon 04-26-[address] BRAIN WO IVCON * * *Final Report* * * DATE OF EXAM: Apr 26 2021 1:45PM [facility] 0504 - CT BRAIN WO IVCON / [...] reduction techniques were required COMPARISON: None. RESULT: Sound Engineering Technician (topogram) images: Endotracheal tube. Post-operative change: None. [...] Portable head CT demonstrating no acute findings. Sealer Operator: ANEL Transcribe Date/Time: Apr 26 2021 1:56P Dictated by : MARIA L SCHMIDT MD This examination was interpreted and the report reviewed and electronically signed by: MARIA L SCHMIDT MD on Apr 26 2021 1:58PM EST [id number] Normal [facility] Confirm Blood Typeon 021 ABO/RH(D) Positive Normal [facility] Comment on above: Performed By: #### C ONABO ####[address] [phone] Performed By: #### T SCR ####[address] [phone] Expedited [id number] 04-26-20 21 SARS-CoV-2 (COVID-19) RNA ROX+probe Ql (Unsp spec) UPPER RESPIRATORY TRACT SWAB Normal [facility] Comment on above: Performed By: #### E XCOVD ####[address] [phone] SARS-CoV-2 (COVID-19) RNA ROX+probe Ql (Unsp spec) Negative for COVID19 (SARS CoV2) by RT-PCR or equivalent method. Normal Negative for COVID19 (SARS CoV2) by RT-PCR or equivalent method. [facility] Comment on above: Result Comment: This test has been authorized by FDA under an Emergency Use Authorization (EUA). Test performed by [facility], [facility] [place], [address] [place], [place] [address]. Performed By: #### E XCOVD ####[place] [address] [place], [place] [phone] GASV + ALLon 04-26-2021 Base Excess Negative Normal [facility] Comment on above: Performed By: #### V ALLBG ####[address] [phone] Blood Gas Comm, Ziyad .VENOUS Normal [facility] Comment on above: Performed By: #### V ALLBG ####[address] [phone] Body temperature 98.6 [degF] Normal [facility] Comment on above: Performed By: #### V ALLBG ####[place] [phone] Calcium [Moles/Vol] 1.23 mmol/L Normal 1.08-1.30 [facility] Comment on above: Performed By: #### V ALLBG ####[place] [phone] Carboxyhemoglobin, Ziyad 0.9 % Normal <2.1 [facility] Comment on above: Performed By: #### V ALLBG ####[place] [phone] CO2 [Moles/Vol] 27 mmol/L Normal 25-29 [facility] Comment on above: Performed By: #### V ALLBG ####[place] [address] [address], [place] [phone] Glucose [Mass/Vol] 144 mg/dL High 60-105 [facility] Comment on above: Performed By: #### V ALLBG ####[place] [address] [address], [place] [phone] HCO3 (Bld) [Moles/Vol] 25 mmol/L Normal 24-28 [facility] Comment on above: Performed By: #### V ALLBG ####[place] [address] [address] [place] [phone] Hematocrit (Bld) [Volume fraction] 43.2 % Normal 36.0-46.0 [facility] Comment on above: Performed By: #### V ALLBG ####[place] [address] [address] [place] [phone] Hemoglobin (Bld) [Mass/Vol] 14.1 g/dL Normal 11.5-15.5 [facility] Comment on above: Performed By: #### V ALLBG ####[address] [place] [phone] Lactate [Moles/Vol] 2.0 mmol/L Normal 0.5-2.2 [facility] Comment on above: Performed By: #### V ALLBG ####[place] [address] [address] [place] [phone] Methemoglobin 0.7 % Normal <1.6 [facility] Comment on above: Performed By: #### V ALLBG ####[place] [phone] O2 Administered 100% Normal [facility] Comment on above: Performed By: #### V ALLBG ####[place] [address] [address] [place] [phone] Oxyhemoglobin, Ziyad. 81 % Normal 60-85 [facility] Comment on above: Performed By: #### V ALLBG ####[place] [address] [address] [place] [phone] pCO2 53 mm Hg Normal 42-55 [facility] Comment on above: Performed By: #### V ALLBG ####[place] [address] [address] [place] [phone] pCO2, Temp Correct 53 mm Hg Normal 42-55 [facility] Comment on above: Performed By: #### V ALLBG ####[place] [address] [address], [place] [phone] pH (Bld) 7.30 [pH] Low 7.32-7.42 [facility] Comment on above: Performed By: #### V ALLBG ####[place] [address] [address] [place] [phone] pH, Temp Corrected 7.30 Low 7.32-7.42 [facility] Comment on above: Performed By: #### V ALLBG ####[place] [address] [address] [place] [phone] pO2 52 mm Hg High 35-45 [facility] Comment on above: Performed By: #### V ALLBG ####[place] [address] [address] [place] [phone] pO2, Temp Corrected 52 mm Hg High 35-45 [facility] Comment on above: Performed By: #### V ALLBG ####[place] [address] [address] [place] [phone] Potassium [Moles/Vol] 4.4 mmol/L Normal 3.5-5.0 [facility] Comment on above: Performed By: #### V ALLBG ####[place] [address] [address] [place] [phone] Sodium [Moles/Vol] 142 mmol/L Normal 136-144 [facility] Comment on above: Performed By: #### V ALLBG ####[place] [address] [address] [place] [phone] Base Excess Negative Normal [facility] Comment on above: Performed By: #### V ALLBG ####[place] [address] [address], [place] [phone] Blood Gas Comm, Ziyad .VENOUS Normal [facility] Comment on above: Performed By: #### V ALLBG ####[facility], [place] [phone] Body temperature 98.6 [degF] Normal [facility] Comment on above: Performed By: #### V ALLBG ####[place] [address] [address] [place] [phone] Calcium [Moles/Vol] 1.25 mmol/L Normal 1.08-1.30 [facility] Comment on above: Performed By: #### V ALLBG ####[place] [address] [address] [place] [phone] Carboxyhemoglobin, Ziyad 0.5 % Normal <2.1 [facility] Comment on above: Performed By: #### V ALLBG ####[place] [address] [address] [place] [phone] CO2 [Moles/Vol] 25 mmol/L Normal 25-29 [facility] Comment on above: Performed By: #### V ALLBG ####[place] [address] [address] [place] [phone] Glucose [Mass/Vol] 172 mg/dL High 60-105 [facility] Comment on above: Performed By: #### V ALLBG ####[place] [address] [address] [place] [phone] HCO3 (Bld) [Moles/Vol] 24 mmol/L Normal 24-28 [facility] Comment on above: Performed By: #### V ALLBG ####[place] [address] [address] [place] [phone] Hematocrit (Bld) [Volume fraction] 44.2 % Normal 36.0-46.0 [facility] Comment on above: Performed By: #### V ALLBG ####[place] [address] [address] [place] [phone] Hemoglobin (Bld) [Mass/Vol] 14.4 g/dL Normal 11.5-15.5 [facility] Comment on above: Performed By: #### V ALLBG ####[place] [address] [address] [place] [phone] Lactate [Moles/Vol] 2.4 mmol/L High 0.5-2.2 [facility] Comment on above: Performed By: #### V ALLBG ####[place] [address] [address] [place] [phone] Methemoglobin 1.2 % Normal <1.6 [facility] Comment on above: Performed By: #### V ALLBG ####[place] [phone] O2 Administered 100% Normal [facility] Comment on above: Performed By: #### V ALLBG ####[place] [address] [address] [place] [phone] Oxyhemoglobin, Ziyad. 98 % High 60-85 [facility] Comment on above: Performed By: #### V ALLBG ####[place] [address] [address] [place] [phone] pCO2 46 mm Hg Normal 42-55 [facility] Comment on above: Performed By: #### V ALLBG ####[place] [address] [place] [phone] pCO2, Temp Correct 46 mm Hg Normal 42-55 [facility] Comment on above: Performed By: #### V ALLBG ####[place] [address] [address] [place] [phone] pH (Bld) 7.33 [pH] Normal 7.32-7.42 [facility] Comment on above: Performed By: #### V ALLBG ####[place] [address] [address] [place] [phone] pH, Temp Corrected 7.33 Normal 7.32-7.42 [facility] Comment on above: Performed By: #### V ALLBG ####[facility] [address] [place], [place] [phone] pO2 246 mm Hg High 35-45 [facility] Comment on above: Performed By: #### V ALLBG ####[facility], [place] [phone] pO2, Temp Corrected 246 mm Hg High 35-45 [facility] Comment on above: Performed By: #### V ALLBG ####[place] [address] [place], [place] [phone] Potassium [Moles/Vol] 4.4 mmol/L Normal 3.5-5.0 [facility] Comment on above: Performed By: #### V ALLBG ####[facility], [place] [phone] Sodium [Moles/Vol] 143 mmol/L Normal 136-144 [facility] Comment on above: Performed By: #### V ALLBG ####[place] [address] [place], [place] [phone] HISTORY PHYSICALon HISTORY PHYSICAL HNO ID: [id number] Author: Kayce Wagner MD Service: Radiology Author [...] April 26, 2021 TIME: 8:54 PM Normal [facility] Magnesiumon 04-26-2021 Magnesium [Mass/Vol] 1.9 mg/dL Normal 1.7-2.3 [facility] Comment on above: Performed By: #### C BC, MG1, PT, PTT, BMP, PHOS ####[facility] [address] [place], [place] [phone] NURSING PROGon 04-26-2021 NURSING PROG HNO ID: [id number] Author: Jack Richards RN Service: Nursing Author Type: Registered Nurse Type: Nursing Progress Note Filed: 04/26/2021 9:21 PM Note Text: Nursing Progress: Topic: RESTRAINT NON-VIOLENT PATIENT NAME: Oscar Pineda PATIENT LOCATION: [place] [address]/[facility] The patient demonstrates Lack of Understanding/Ability to [...] TIME: 8:00 PM Jack Richards RN Normal [facility] NURSING PROG HNO ID: [id number] Author: Karsten Goldsmith RN Service: Nursing Author Type: Registered Nurse Type: Nursing Progress Note Filed: 04/26/2021 6:59 PM Note Text: Nursing Progress: Topic: RESTRAINT NON-VIOLENT PATIENT NAME: Oscar Pineda PATIENT LOCATION: [place] [address]/[facility] The patient demonstrates Lack of Understanding/Ability to [...] TIME: 6:58 PM Karsten Goldsmith RN Normal [facility] PT EDon 04-26-2021 PT ED HNO ID: [id number] Author: Agnes Schaefer RN Service: Interventional Radiology [...] SUPPLEMENTAL MATERIAL: None REFERRAL (RECOMMENDATION): None Normal [facility] Phosphoruson 04-26-2021 Phosphate [Mass/Vol] 3.1 mg/dL Normal 2.7-4.8 [facility] Comment on above: Performed By: #### C BC, MG1, PT, PTT, BMP, PHOS ####[facility] [address] [place], [place] [phone] Protimeon 04-26-2021 PT INR 1.1 Normal 0.9-1.3 [facility] Comment on above: Result Comment: Neha min K Antagonist (VKA) Therapeutic Range: INR 2 to 3 (Target INR of 2.5) Note: For patients treated with VKA drugs, such as warfarin, the [place] [employer] 2012 Guideline recommends [...] Chest 2012, 141:7S-47S Daphne PEDERSON et al. [facility] 2017, 70: 252-289 Performed By: #### C BC, MG1, PT, PTT, BMP, PHOS ####[address] [phone] PT Sec 11.9 sec Normal 9.7-13.0 [facility] Comment on above: Performed By: #### C BC, MG1, PT, PTT, BMP, PHOS ####[place] [address] [place], [place] [phone] Staph aureus PCRon 1 MRSA PCR Negative Normal [facility] Comment on above: Performed By: #### S APCR ####[place] [address] [place], [place] [phone] S aureus Spec Source Nasal Normal [facility] Comment on above: Performed By: #### S APCR ####[address] [phone] Staph aureus PCR Negative Normal [facility] Comment on above: Performed By: #### S APCR ####[address] [phone] XR ABDOMEN 1V SUPINEon 04-26 XR ABDOMEN [...] loops of bowel. No focal bony abnormality. Sealer Operator: [facility] Transcribe Date/Time: Apr 26 2021 2:53P Dictated by : RAMIN BROWNLEE MD This examination was interpreted and the report reviewed and electronically signed by: RAMIN BROWNLEE MD on Apr 26 2021 3:05PM EST [id number] Normal [facility] XR CHEST 1V FRONTAL PORTon 1 XR [...] No acute process identified. IMPRESSION: See result. Sealer Operator: [facility] Transcribe Date/Time: Apr 26 2021 6:05P Dictated by : JASON LOWE MD This examination was interpreted and the report reviewed and electronically signed by: JASON LOWE MD on Apr 26 2021 6:07PM EST [id number] Normal [facility] XR CHEST 1V FRONTAL PORT * * [...] No acute process identified. IMPRESSION: See result. Sealer Operator: PSCB Transcribe Date/Time: Apr 26 2021 3:57P Dictated by : JASON LOWE MD This examination was interpreted and the report reviewed and electronically signed by: JASON LOWE MD on Apr 26 2021 3:58PM EST [id number] [facility] NURSING PROGon 04-24-2021 NURSING PROG HNO ID: [id number] Author: Shereen Kwok LPN Service: ? Author Type: LICENSED NURSE Type: Nursing Progress Note Filed: 04/24/2021 2:42 PM Note Text: Pre-procedure instructions: Contacted patient and confirmed appt. for Cryoablation scheduled on 04/26/21, at [facility]. Diet: Do not eat solid food [...] signed. Arrival at 6:30am to desk QB-1 ([facility]) and check in for your procedure. Residential Treatment Staff/Transportation: How will you be arriving for your procedure? Private car. If you will be arriving at [facility] via ambulance or public transportation, please call to discuss. You will need a responsible adult to accompany you to and from the procedure. Your helper driver is required to stay with you until you are taken into the Procedure room. [facility] is currently restricting visitors to two visitors per patient. No visitor under the age of 16. You and your visitor will be screened for temperature and COVID-19 symptoms upon entry to the hospital, and a wristband will be applied when cleared. If you develop any of the following symptoms before your procedure, please call [phone]. Chills, joint pain, rash, sore throat, cough, [...] No Written instructions provided to patient via [employer] If you have any questions please call [phone] [facility] MRI ABDOMEN WO/W IVCONon [facility] Vital Signs Date Time Vital Sign Value Performing Clinician Facility 10-10-2022 10:00-0400 Body height 161.29 cm Shaun Valentine Other [facility] Other 10-10-2022 10:00-0400 Body mass index (BMI) [Ratio] 23.08 kg/m2 Shaun Valentine Other [facility] Other 10-10-2022 10:00-0400 Body weight 60.06 kg Shaun Ball Other [facility] Other 10-10-2022 10:00-0400 Diastolic blood pressure 76 mm[Hg] Shaun Ball Other [facility] Other 10-10-2022 10:00-0400 Respiratory rate 12 /min Shaun Ball Other [facility] Other 10-10-2022 10:00-0400 Systolic blood pressure 110 mm[Hg] Shaun Ball Other [facility] Other 04-28-2022 15:46-0400 Body temperature 99.5 [degF] Melani Russell MD Work Phone: [facility] 04-28-2022 15:46-0400 Body weight 76.39 kg Melani Russell MD Work Phone: [facility] 04-28-2022 15:46-0400 Diastolic blood pressure 76 mm[Hg] Melani Russell MD Work Phone: [facility] 04-28-2022 15:46-0400 Heart rate 71 /min Melani Russell MD Work Phone: [facility] 04-28-2022 15:46-0400 Respiratory rate 20 /min Melani Russell MD Work Phone: [facility] 04-28-2022 15:46-0400 SaO2% (BldA) [Mass fraction] 97 % Melani Russell MD Work Phone: [facility] 04-28-2022 15:46-0400 Systolic blood pressure 131 mm[Hg] Melani Russell MD Work Phone: [facility] Encounters Encounter Date Encounter Type [...] examination without abnormal findings DR SHAUN VALENTINE [facility] Start: 10-27-2022 Telephone encounter Shaun Valentine [facility] Start: 10-27-2022 End: 10-28-[address] SHAUN VALENTINE [facility] [employer] Other Start: 10-27-2022 End: 10-28-2022 Encounter for general adult medical examination without abnormal findings DR SHAUN VALENTINE Facility:[facility] Start: 10-10-2022 End: 10-10-2022 ambulatory Shaun Valentine Other [facility] Other Start: 10-10-2022 Encounter for genera l adult medical examination without abnormal findings Shaun Valentine [facility] Start: 10-10-2022 Periodic preventive med est patient 18-39 yrs Shaun Valentine 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] Start: 11-14-2021 ambulatory Melani Hutchison Work Phone: Hematology/Oncology 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 Start: 10-28-2021 Telephone encounter Melani Acuña rd, MD Work Phone: Hematology/Oncology Comment on above: Care Coordination Start: 09-27-2021 End: 09-27-2021 ambulatory MELANI RUSSELL Facility:[facility] Start: 09-20-2021 End: 09-20-2021 ambulatory MELANI RUSSELL Facility:[facility] Start: 05-07-2021 End: 05-07-2021 ambulatory ALEX URBANO [facility] Start: 05-06-2021 End: 05-06-2021 ambulatory ALEX URBANO [facility] Start: 04-26-2021 End: 04-30-2021 Evaluation and management of inpatient FASALAL POLIAWI [facility] Start: 02-28-2021 End: 02-28-2021 Subsequent hospital visit by physician Kiel [facility] (I-Stat/1.5t) Radiology Comment on above: Intra-abdominal and pelvic swelling, mass and lump, unspecified site [R19.00] Procedures Date Procedure Procedure Detail Performing Clinician Start: 04-29-2021 Antibody screen ALEX URBANO Comment on above: Performed By: #### T SCR ####[facility] [place], [place] [id number] Start: 04-26-2021 Antibody screen ALEX URBANO Comment on above: Performed By: #### T SCR ####[id number] [place], [place] [phone] Start: 02-28-2021 Mri abdomen w/o & w/contrast material Cortez Carter MD Work Phone: Plan of Treatment Date Care Activity Detail Author Start: 03-20-2023 Covid-19 Vaccine () Covid-19 Vaccine () [facility] Start: 03-20-2023 Influenza vaccination [facility] Start: 10-28-2022 End: 05-29-2023 Mri abdomen w/o & w/contrast material MRI ABDOMEN WO/W IVCON Radiology Routine History of tumor Expected: 10/28/2022, Expires: 05/29/2023 [facility] Work Phone: Comment on above: Expected: 10/28/2022 , Expires: 05/29/2023 Start: 10-28-2022 End: 05-29-2023 Mri pelvis w/o & w/contrast material MRI PELVIS WO/W IVCON Radiology Routine History of tumor Expected: 10/28/2022, Expires: 05/29/2023 [facility] Work Phone: Comment on above: Expected: 10/28/2022 , Expires: 05/29/2023 Start: 10-26-2022 End: 12-26-2022 CBC W Auto Differential panel - Blood ABS GRAN CT + CBC Lab Routine History of tumor Expected: 10/26/2022 (Approximate), Expires: 12/26/2022 [facility] Work Phone: Comment on above: Expected: 10/26/2022 (Approximate), Expires: 12/26/2022 Start: 10-26-2022 End: 12-26-2022 Comprehensive metabolic 2000 panel - Serum or Plasma COMP METABOLIC PANEL Lab Routine History of tumor Expected: 10/26/2022 (Approximate), Expires: 12/26/2022 [facility] Work Phone: Comment on above: Expected: 10/26/2022 (Approximate), Expires: 12/26/2022 Start: 07-20-2022 DEPRESSION ASSESSMENT DEPRESSION ASS ESSMENT [facility] Start: 03-20-2022 Influenza vaccination [facility] Start: 09-12-2021 COVID-19 VACCINE (3 - Booster for Pfizer series) COVID-19 VACCINE (3 - Booster for Pfizer series) [facility] Start: 07-20-2021 DEPRESSION ASSESSMENT DEPRESSION ASS [facility] Start: 06-07-2021 COVID-19 VACCINE (3 - Booster for Pfizer series) COVID-19 VACCINE (3 - Booster for Pfizer series) [facility] Start: 06-07-2021 COVID-19 VACCINE (3 - Pfizer series) COVID-19 VACCINE (3 - Pfizer series) [facility] Start: 03-15-2020 Urine microalbumin profile DTaP,Tdap,Td Vaccine (2 - Tdap) [facility] Start: 2014 HPV TESTING HPV TESTING [facility] Start: 2005 PAP TESTING PAP TESTING [facility] Start: 2003 Urine microalbumin profile DTAP,TDAP,TD (1 - Tdap) [facility] Start: 2002 HEPATITIS C SCREENING HEPATITIS C SC REENING [facility] Start: 2002 HIV SCREENING HIV SCREENING [facility] Start: 1996 Adult depression screening assessment DEPRESSION SCREENING [facility] Start: 1984 HEPATITIS B (1 of 3 - 3-dose series) HEPATITIS B (1 of 3 - 3-dose series) [facility] Start: 1984 Hepatitis B Vaccine (1 of 3 - 3-dose series) Hepatitis B Vaccine (1 of 3 - 3-dose series) [facility] End: 04-21-2022 Mri abdomen w/o & w/contrast material [facility] Work Phone: Comment on above: 1 Occurrences starti ng 04/21/2022 until 04/21/2022 End: 04-21-2022 Mri pelvis w/o & w/contrast material [facility] Work Phone: Comment on above: 1 Occurrences starti ng [facility]/21/2022 [facility] Immunization Date Immunization Notes Care Provider Fa cility 04-12-2021 COVID-19 Vaccine Pfi zer - Documentation Purposes Only Shaun Valentine Other [facility] Other 03-22-2021 COVID-19 Vaccine Pfi zer - Documentation Purposes Only Shaun Valentine Other [facility] Other 06-09-2019 influenza virus vaccine, unspecified formulation Mri (I-Stat/1.5t) [facility] Payers Date Payer Category Payer Private Health Insurance [employer] A ETNA CHOICE POS II [id number] 2015-Present [phone] [address] [place] [address] POS [id number] 2015 Private Health Insurance [id number] 1984 Unknown [id number] 1984 Unknown [id number] .9 1984 Unknown [id number] .9 1984 Unknown [id number] [id number] .9 1984 Unknown [id number] [id number] .9 1984 Unknown [id number] .1259 1984 Unknown [id number] [id number] .9 1984 Unknown [id number] [id number] .1259 1984 Unknown [id number] [id number] .9 1984 Unknown [id number] .1259 1959 Private Health Insurance [id number] Private Health Insurance [id number] Social History Date Type Detail Facility Start: [facility] Start: 02-14-2021 Tobacco use and exposure Smoke less tobacco non-user [facility] Start: 1985 Sex Assigned At Female [facility] Start: 01-15-2021 End: 04-28-2022 Exposure to SARS-CoV-2 (event) Not sure [facility] Start: 02-14-2021 End: 05-07-2021 Sex Assigned At [facility] Start: 02-14-2021 End: 05-07-2021 History of Social function [facility] Adult Depression Screening Assessment 0 [facility] Start: 02-26-2021 Gender identity Identifies as female gender (finding) [facility] Start: 03-27-2021 Sexual orientation Heterosexual (fin ding) [facility] Clinical Notes 02-28-2021 to 10-10-2022 Note Date & Type Note Facility 10-10-2022 Evaluation note Encounter Date Diagnosis Assessment Notes Sep, Wellness examination (ICD-10 - Z00.00) Sep, Hair thinning (ICD-10 - L65.9) Check H/H and TSH Not scarring [facility] Other 10-11-2022 History of Present illness Narrative* [...] Hematology and Medical Oncology [facility] Nurse Note* Aliya Jean Baptiste RN - 04/28/2022 3:43 PM EDT Additional intake questions: Has the patient had fever, nausea, vomiting, diarrhea, constipation, fatigue for > 1 week? No Does the patient have a decreased appetite? No Does patient want to see a Key Account Executive? No (yes to any of above refer patient to schedulers for dietitian appointment) ) Does patient have any new or increased numbness or tingling of extremities? No Is patient interested in fertility information? No Does patient need any prescription refills? No Does patient have an advanced directive in place? No, Patient referred to [facility] Electronically Signed By: Aliya Jean Baptiste RN [facility]22 NoteHNO ID: [id number] Author: Erin Garcia RN Service: ? Author [...] Pineda DATE: April 21, 2022 TIME: 5:35 [facility]10-03-2022 NoteHNO ID: [id number] Author: RT Toby(R) Service: Radiology Author Type: [...] BY: RT Toby(R) April 21, 2022 6:08 [facility]10-03-2022 History of Present illness Narrative* [...] 21, 2022 6:08 PM documented in [facility]22 Miscellaneous Notes* Telephone Encounter - Brittany Avendaño [facility] - 10/30/2021 3:24 PM EDT Patient calling stating she has not received a call back, Please call @ [phone] * Telephone Encounter - Brittany Avendaño [facility] - 10/28/2021 10:02 AM EDT Oscar Pineda is calling Melani Russell MD today regarding Care Coordination,calling with questions about with her condition. Patient has been identified by name and birthdate. Duration of symptoms: N/A Requesting response back: call on cell [phone] (home) [phone] (cell) Brittany Avendaño [facility] October 28, 2021 documented in this [facility]-2022 NoteHNO ID: [id number] Author: Melani Russell MD Service: ? Author Type: Physician Type: Progress Notes Filed: 10/07/2021 12:24 PM Note Text: [facility] ESTABLISHED PATIENT VISIT PATIENT NAME: [...] Melani Pérez MD Internal Medicine Resident, PGY-1 [facility] 09/27/2021 SOLID TUMOR STAFF: ATTENDING PHYSICIAN [...] Russell MD, PhD Staff, Hematology and [facility]cology[facility] Note HNO ID: [id number] Author: Shannan Ansari, RT(R) Service: Radiology Author [...] BY: RT Eduardo(R) September 20, 2021 4:17 [facility]03-04-2022 NoteHNO ID: [id number] Author: Ronda Arora Service: ? Author Type: [...] Pineda DATE: September 20, 2021 TIME: 3:22 [facility]10-18-2021 NoteHNO ID: [id number] Author: LANETTE De Leon Service: ? 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 There is no Ashkenazi Synagogue ancestry. The patient had limited information about [...] that the patient's genetic (more content not included)...[facility]10-12-2021 NoteHNO ID: [id number] Author: Katty Logan APRN.NGUYEN Service: Critical Care [...] the A/P section below. Please refer to [facility] for list of inpatient medications. VITAL SIGNS: [...] room air today KIMBER (more content not included)...[facility]10-11-2021 NoteHNO ID: [id number] Author: Kayce Wagner MD Service: Radiology Author [...] her to go home. Kayce Wagner MD [phone] [facility] [place]10-11-2021 NoteHNO ID: [id number] Author: Marva Stiles APRN.NGUYEN Service: Critical Care [...] Completed decadron -> transitioned to medrol. Consulted [facility] for transfer of service. Addendum @ 1115: pt to remain in SICU, [facility] does not feel comfortable accepting pt given supplemental O2 needs and < 24 hrs since extubation. Objective MEDICATIONS: Current medications and allergies reviewed. Recommended/planned medication changes discussed in detail in the A/P section below. Please refer to [facility] for list of inpatient medications. 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 Pt suffered iatrogenic air embolism to [...] April 29, 2021 TIME: 8:45 AM PAGER/CONTACT #:[facility]10-10-2021 NoteHNO ID: [id number] Author: Sara Guzman APRN.PATTERNMAKER ALL AROUND Service: Critical Care Author Type: Nurse Practitioner [...] the A/P section below. Please refer to [facility] for list of inpatient medications. VITAL SIGNS: [...] Patient Clinically Ready to Transfer to [facility] or SDU?: No Discharge Planning: [...] Current Assessment AND Pl (more content not included)...[facility]10-10-2021 NoteHNO ID: [id number] Author: Jose M Cedillo MD Service: Interventional [...] cryoablation on 04/[address] [facility]. Pt suffered iatrogenic air embolism to [...] April 29, 2021 TIME: 8:34 AM PAGER/CONTACT #:[facility]10-09-2021 NoteHNO ID: [id number] Author: RT Agus(R) Service: Radiology Author Type: [...] RD, RVT, Wallace April 27, 2021 12:23 [facility]10-09-2021 History of Past illness Narrative* [...] of this encounter (statuses as of 11/01/2021) [facility]10-09-2021 History of Past illness Narrative* [...] of this encounter (statuses as of 11/19/2021) [facility]10-09-2021 History of Past illness Narrative* [...] of this encounter (statuses as of 04/22/2022) [facility] History of Past illness Narrative* [...] of this encounter (statuses as of 04/29/2022) [facility]10-09-2021 History of Past illness Narrative* [...] of this encounter (statuses as of 02/25/2023) [facility]10-09-2021 NoteHNO ID: [id number] Author: Anila Wise APRN.CNP Service: Critical Care [...] Patient Clinically Ready to Transfer to [facility] or SDU?: No Discharge Planning: [...] Pulmonary Acute respiratory insufficie (more content not included)...[facility]10-09-2021 NoteHNO ID: [id number] Author: Jose M Cedillo MD Service: Interventional [...] to look for air in the hepatic veinsAccess [facility] [place] 04-27-2021 NoteHNO ID: [id number] Author: Interface Note Service: ? Author Type: ? Type: Progress Notes Filed: 04/27/2021 2:51 AM Note Text: Epic Scheduled Downtime: 04/27/2021 1:00:00 AM to 04/27/2021 2:33:00 [facility]10-08-2021 NoteHNO ID: [id number] Author: Marva Stiles APRN.CNP Service: Critical Care [...] the A/P section below. Please refer to [facility] for list of inpatient medications. [...] Patient Clinically Ready to Transfer to [facility] or SDU?: No Discharge Planning: [...] 1245 vte pharmacologic prophyl (more content not included)...[facility]10-08-2021 NoteHNO ID: [id number] Author: Galdino Gaona DO Service: Critical Care Author Type: Fellow Type: Procedures Filed: 04/26/2021 4:34 PM Note Text: BEDSIDE PROCEDURE NOTE CENTRAL LINE INSERTION Date/Start Time: 04/26/2021 4:33 PM Performed by: Galdino Gaona DO Authorized by: Polly Reyna MD Informed Consent Consent Obtained: Written [place] Protocol A moment to CARE was completed. [...] was applied following the usual aseptic technique. [facility] Central Line Insertion Checklist, attached [...] Pineda DATE: April 26, 2021 TIME: 4:32 [facility]10-08-2021 NoteHNO ID: [id number] Author: Polly Reyna MD Service: Critical Care [...] from IVC. Discussed it with IR Staff oJse M Siddiqui MD ( Risks vs benefits). In the meantime, we'll keep the patient in left lateral decubitus and [place]. Patient's updated. Will place a central line for any emergency. Veronika Reyna MD SICU Staff. 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 Intra-abdominal and pelvic swelling, mass and lump, unspecified site Abdominal mass, unspecified abdominal location documented in this encounter [facility] note* Diagnosis History of tumor- Primary Personal history of other specified diseases documented in this encounter [facility] noteNo InformationNortBarnes[facility] [employer] Other History general Narrative - Reported* Type Description Date Medical History Fatigue Medical History Gall bladder polyp Medical History Atopic dermatitis, mild Medical History DESMOID FIBROMATOSIS Surgical History C section x 3 Surgical History wisdom teeth Surgical History RIGHT ABDOMINAL WALL MASS Hospitalization History see [facility] [employer] Other Advance Directives No Advanced Directives Records FoundDocuments on File Type Date 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 Advance Directive(s) 04/10/2021 12:55 PM Advance Directive(s) 03/07/2021 6:15 PM Reason for Referral Specialty Diagnoses / Procedures Referred By Katie t Referred To Contact MR IMAGING Diagnoses Desmoid Abdominal mass, unspecified abdominal location Procedures MRI PELVIS WO/W IVCON MRI PELVIS W/O & W/CONTRAST MATERIAL Melani Russell MD [address] [place], [place] [id number] Mr Imaging Referral ID Status Reason Start Date Expiration Date V isits Requested Visits Authorized [id number] Closed Auto-Generate d Referral 03/30/2022 10/27/2022 1 1 Specialty Diagnoses / Procedures Referred By Jannaac t Referred To Contact MR IMAGING Diagnoses Desmoid Intra-abdominal and pelvic swelling, mass and lump, unspecified site Procedures MRI ABDOMEN WO/W IVCON MRI ABDOMEN W/O & W/CONTRAST MATERIAL Melani Russell MD [address] [place], [place] [id number] Mr Imaging Referral ID Status Reason Start Date Expiration Date V isits Requested Visits Authorized [id number] Closed Auto-Generate d Referral 03/30/2022 10/27/2022 1 1 Specialty Diagnoses / Procedures Referred By Jannaac t Referred To Contact MR IMAGING Diagnoses History of tumor Procedures MRI PELVIS WO/W IVCON MRI PELVIS W/O & [place] [address] [place] [address] Mr Imaging Referral ID Status Reason Start Date Expiration Date Visits Requested Visits Authorized [id number] Pending Review Auto-Generat ed Referral 10/28/2022 05/29/2023 1 1 Specialty Diagnoses / Procedures Referred By Contac kartik Referred To Contact MR IMAGING Diagnoses History of tumor Procedures MRI ABDOMEN WO/W IVCON MRI ABDOMEN W/O & [place] [address] [place] [address] Mr Imaging Referral ID Status Reason Start Date Expiration Date Visits Requested Visits Authorized [id number] Pending Review Auto-Generat ed Referral 10/28/2022 05/29/2023 [...] or prosecute any alcohol or drug abuse patient.[facility] CenterIn the event this information is protected by the Federal Confidentiality of Alcohol and Drug Abuse Patient Records regulations: The Federal rules restrict any use of the information to criminally investigate or prosecute any alcohol or drug abuse patient.[facility] Center[facility] the event this information is protected by the Federal Confidentiality of Alcohol and Drug Abuse Patient Records regulations: The Federal rules restrict any use of the information to criminally investigate or prosecute any alcohol or drug abuse patient.[facility] CenterIn the event this information is protected by the Federal Confidentiality of Alcohol and Drug Abuse Patient Records regulations: The Federal rules restrict any use of the information to criminally investigate or prosecute any alcohol or drug abuse patient.[facility] Center[facility] the event this information is protected by the Federal Confidentiality of Alcohol and Drug Abuse Patient Records regulations: The Federal rules restrict any use of the information to criminally investigate or prosecute any alcohol or drug abuse patient.[facility] Center[facility] the event this information is protected by the Federal Confidentiality of Alcohol and Drug Abuse Patient Records regulations: The Federal rules restrict any use of the information to criminally investigate or prosecute any alcohol or drug abuse patient.[facility] Reason for Visit (unrecogniz ed section and content) Reason Comments Care Coordination Reason Comments Radiology MRI Specialty Diagnoses / Procedures Referred By Contac t Referred To Contact MR IMAGING Diagnoses Desmoid Intra-abdominal and pelvic swelling, mass and lump, unspecified site Procedures MRI ABDOMEN WO/W IVCON MRI ABDOMEN W/O & [place] [id number] [phone] Mr Imaging Referral ID Status Reason Start Date Expiration Date V isits Requested Visits Authorized [id number] Closed Auto-Generate d Referral 03/30/2022 10/27/2022 1 1 Reason Comments Established Patient Reason Comments Radiology MRI Specialty Diagnoses / Procedures Referred By Contac t Referred To Contact MR IMAGING Diagnoses Intra-abdominal and pelvic swelling, mass and lump, unspecified site Procedures MRI ABDOMEN WO/W IVCON MRI,ABDOMEN,W&WO Cortez Dubois MD [address] [place] [address] [place] [address] Referral ID Status Reason Start Date Expiration Date V isits Requested Visits Authorized [id number] Closed Auto-Generate d Referral 02/14/2021 03/16/2022 1 1 Care Teams (unrecognized sec tion and content) Information Services Consultant Relationship Specialty [place] [id number] [phone] Physician Hematology/Oncology 05/20/21 Chey Tamayo, JOSE [address] [place], [place] [phone] Specialty Surgical Aide Oncology 05/20/21 Information Services Consultant Relationship Specialty Start [place] [id number] [place], [place] [id number] Physician Hematology/Oncology 05/20/21 Claritza Tamayo RN [address] [place] [id number] Specialty Surgical Aide Oncology 05/20/21 Information Services Consultant Relationship Specialty Start Date End Date Melani Russell MD [address] [place] [id number] Physician Hematology/Oncology 05/20/21 Claritza Tamayo RN [address] [place] [id number] Specialty Surgical Aide Oncology 05/20/21 Information Services Consultant Relationship Specialty Start Date End Date Melani Russell MD [address] [place] [phone] Physician Hematology/Oncology 05/20/21 Claritza Tamayo RN [address] [place] [phone] Specialty Surgical Aide Oncology 05/20/21 Information Services Consultant Relationship Specialty Start Date End Date Melani Russell MD [address] [place] [phone] Physician Hematology/Oncology 05/20/21 Suzanna Chaidez RN [address] [place] [phone] Specialty Surgical Aide Hematology/Oncology 06/10/22 INFORMATION SOURCE (unrecogn ized section and content) DATE CREATED AUTHOR 04/23/2022 [facility] DATE CREATED AUTHOR AUTHOR'S ORGANIZ ATION 11/02/2022 [facility] DATE CREATED AUTHOR AUTHOR'S ORGANIZ ATION 10/06/2023 [facility] EPIC FOR RECORDS PERTAINING TO [...] BE BASED ON THE PRIMARY CLINICAL RECORDS. [facility] [employer] [facility]. provides no warranty or guarantee of the accuracy or completeness of information in this document.
--- NOTE | 2023-10-21 18:14 | PC.NURSE ---
Leanne and 5 day old Crew arrive for follow up. Leanne states is generally feeling better after this C/S than she has with other deliveries. No complaints for self except still not latching right or well Nipples remain tender, not excoriated or bleeding, just tender with latch. Leanne experienced with breast feeding as has nursed 1-2 years with other children. States it just doesn't feel right Nurses baby every 1-3 hours, but mostly prefers to feed every 1 hour at night Latches are harder, more sleepy at night. Discussed ways to ensure deeper latch, feeding both breasts at a feed for longer than 10 minute snack . Verbalized understanding. Leanne with VSS and assessment WNL. Incision red under steri-strips and 1 cm beyond edge of steri-strips. Incision line edematous and possibly wanting to separate in places. Pt admits to having red inflammation in past from tape of dressing but not the steri-strips. TC to Dr Wilson office, message left for Gladys [facility] and the verbal message with Ashley. Office declines to see pt today, will see her on scheduled day 10/22/2023 for incision check. Offers pt to take Benadryl, Leanne declines as she is . Leanne to keep appointment tomorrow. Crew doing well. VSS and assessment WNL. Mouth examined at mother's request. Noted to have tight upper lip frenulum. Upper lip tight and blanches when attempt to roll lip up. 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 Tongue with no tight frenulum obvious, questionable posterior tie as baby has thick tongue when attempting to laterally move left to right. brings tongue to gumline but infrequently stretches beyond gumline. tongue clear , no residue. Suck is weaker, poor tug of war, and looses latch/suction easily when chin/lower lip is adjusted. Reviewed with parents, given information and referral names if decides to have evaluation for tongue, lip and buccal tie by pediatric dentist. Mom interested, informed that is always parents decision, just reviewing options. Crew latches best in football hold, several attempts made until deep latch achieved. Audible swallows and gulps, does slip from breast 1x, re latches easily Parents home with baby. Will continue to work with infant for deepest latch and discuss options. Will call as needs aware of [facility] group.
[2023-10-21 18:15] VITALS: BP 148/88; PULSE 62; TEMP 36.7; O2SAT 98
== END 2023-10-21 18:20 | disposition home or self-care (01) ==
LOC: FBCO 08:32
PROVIDERS: PCP Internal Medicine; Visit Provider Obstetrics & Gynecology
DX: Z39.2 Encounter for routine postpartum follow-up (principal)

== ENCOUNTER 2023-10-23 23:06 | Emergency (ER) | payer OTHER, SELFPAY ==
[2023-10-23 23:09] VITALS: BP 145/88; PULSE 60; TEMP 36.6; O2SAT 99; BMI 27.4
--- OUTSIDE RECORDS SUMMARY | 2023-10-23 23:12 | XMS_ITS | CCD ---
Author Organization [facility] Care Team Providers Care Saxophone Assembler Name Role Phone Drew JAMES, Melani Unavailable Yariel GARCIA, Chey Unavailable [phone] Yariel GARCIA, Claritza Andrade Unavailable [phone] Drew JAMES, Melani Unavailable Yariel GARCIA, Claritza [...] Translations: [CODEINE] Drug Allergy 1 GI Upset [facility] (7 sources) Adhesive Tape-Silicones; Translations: [ADHESIVE TAPE-SILICONES] Drug Allergy 1 Other: See Comments [facility] (2 sources) Adhesive agent Drug allergy Unknown [facility] Other (2 sources) Codeine Drug Allergy nausea [facility] Other (1 source) Codeine Drug Allergy 1 [facility] (1 source) Desonide Drug Allergy 1 [facility] Medications Current Medications Medication Drug [...] 10-27-2022 BASO # 0.1 103/ul Normal 0.0-0.1 [facility] Comment on above: Performed By: #### C BC #### [facility] [address] [address] [address] Rancho Cobos Basophils/100 WBC (Bld) 0.9 % Normal 0.2-2.0 [facility] Comment on above: Performed By: #### C BC #### [facility] [address] [place] [address] Dr. Rancho Cobos EO # 0.1 103/ul Normal 0.0-0.7 [facility] Comment on above: Performed By: #### C BC #### [facility] [address] [address] [address] Rancho Cobos Eosinophils/100 WBC (Bld) 1.4 % Normal 0.9-7.0 [facility] Comment on above: Performed By: #### C BC #### [facility] [address] [place] [address] Dr. Rancho Cobos Erythrocyte distribution width (RBC) [Ratio] 11.8 % Normal 11.0-15.0 [facility] Comment on above: Performed By: #### C BC #### [facility] [address] [place] [address] Dr. Rancho Cobos Hematocrit (Bld) [Volume fraction] 38.5 % Normal 36.0-48.0 [facility] Comment on above: Performed By: #### C BC #### [facility] [address] [place] [address] Dr. Rancho Cobos Hemoglobin (Bld) [Mass/Vol] 13.3 g/dL Normal 12.0-16.0 [facility] Comment on above: Performed By: #### C BC #### [facility] [address] [place] [address] Dr. Rancho Cobos IG # 0.01 10e3/ul Normal 0.00-0.03 [facility] Comment on above: Performed By: #### C BC #### [facility] [address] [place] [address] Dr. Rancho Cobos IG % 0.2 % Normal 0.0-0.5 [facility] Comment on above: Performed By: #### C BC #### [facility] [address] [place] [address] Dr. Rancho Cobos LYMPH # 1.7 103/ul Normal 1.2-3.8 [facility] Comment on above: Performed By: #### C BC #### [facility] [address] [place] [address] Dr. Rancho Cobos Lymphocytes/100 WBC (Bld) 31.2 % Normal 20.5-60.0 [facility] Comment on above: Performed By: #### C BC #### [facility] [address] [place] [address] Dr. Rancho Cobos MANUAL DIFF REQ NO Normal [facility] Comment on above: Performed By: #### C BC #### [facility] [address] [place] [address] Dr. Rancho Cobos MCH (RBC) [Entitic mass] 31.9 pg Normal 26.7-34.0 [facility] Comment on above: Performed By: #### C BC #### [facility] [address] [place] [address] Dr. Rancho Cobos MCHC (RBC) [Mass/Vol] 34.5 g/dL Normal 29.9-35.2 [facility] Comment on above: Performed By: #### C BC #### [facility] [address] [place] [address] Dr. Rancho Cobos MCV (RBC) [Entitic vol] 92.3 fL Normal 81.0-99.0 [facility] Comment on above: Performed By: #### C BC #### [facility] [address] [address] [address] Rancho Cobos MONO # 0.3 103/ul Normal 0.3-0.8 [facility] Comment on above: Performed By: #### C BC #### [facility] [address] [address] [address] Rancho Cobos Monocytes/100 WBC (Bld) 5.2 % Normal 1.7-12.0 [facility] Comment on above: Performed By: #### C BC #### [facility] [address] [place] [address] Dr. Rancho Cobos NEUT # 3.4 103/ul Normal 1.4-6.5 [facility] Comment on above: Performed By: #### C BC #### [facility] [address] [place] [address] Dr. Rancho Cobos Neutrophils/100 WBC (Bld) 61.1 % Normal 43.0-75.0 [facility] Comment on above: Performed By: #### C BC #### [facility] [address] [place] [address] Dr. Rancho Cobos Platelet mean volume (Bld) [Entitic vol] 9.4 fL Critically low 9.5-13.5 [facility] Comment on above: Performed By: #### C BC #### [facility] [address] [place] [address] Dr. Rancho Cobos PLT 261 103/ul Normal 150-450 [facility] Comment on above: Performed By: #### C BC #### [facility] [address] [address] [address] Rancho Cobos RBC 4.17 106/ul Critically low 4.20-5.40 [facility] Comment on above: Performed By: #### C BC #### [facility] [address] [place] [address] Dr. Rancho Cobos WBC 5.6 103/ul Normal 4.0-11.0 [facility] Comment on above: Performed By: #### C BC #### [facility] [address] [place] [address] Dr. Rancho Cobos LIPID PROFILEon 10-27-2022 CHOL-HDL RATIO NORM SEE BELOW Normal [facility] Comment on above: Result Comment: 3.3 - 4.4 LOW RISK 4.4 - 7.1 AVERAGE RISK 7.1 - 11.0 MODERATE RISK >11.0 HIGH RISK Performed By: #### C MP, LIPID, TSH #### [facility] [address] [address] [address] Rancho Cobos Cholesterol [Mass/Vol] 162 mg/dL Normal <=200 [facility] Comment on above: Performed By: #### C MP, LIPID, TSH #### [facility] [address] [address] [address] Rancho Cobos Cholesterol in HDL [Mass/Vol] 56 mg/dL Normal 40-60 [facility] Comment on above: Performed By: #### C MP, LIPID, TSH #### [facility] [address] [address] [address] Rancho Cobos Cholesterol in LDL [Mass/Vol] 97.0 mg/dL Normal [facility] Comment on above: Performed By: #### C MP, LIPID, TSH #### [facility] [address] [address] [address] Rancho Cobos Cholesterol.total/ Cholesterol in HDL [Mass ratio] 2.9 {ratio} Normal [facility] Comment on above: Performed By: #### C MP, LIPID, TSH #### [facility] [address] [address] [address] Rancho Cobos HDL NORMAL > or = 60 mg/dl - LO W CARDIOVASCULAR RISK <40 mg/dl - HIGH CARDIOVASCULAR RISK Normal [facility] Comment on above: Performed By: #### C MP, LIPID, TSH #### [facility] [address] [address] [address] Rancho Cobos LDL CALC NORMAL SEE BELOW Normal [facility] Comment on above: Result Comment: <100 mg/dl OPTIMAL 100 - 129 mg/dl NEAR OR ABOVE OPTIMAL 130 - 159 mg/dl BORDERLINE HIGH 160 - 189 mg/dl HIGH >190 mg/dl VERY HIGH Performed By: #### C MP, LIPID, TSH #### [facility] [address] [address] [address] Rancho Cobos Triglyceride [Mass/Vol] 45 mg/dL Normal <=150 [facility] Comment on above: Performed By: #### C MP, LIPID, TSH #### [facility] [address] [place] [address] Dr. Rancho Cobos VLDL CALC 9.0 mg/dL Normal [facility] Comment on above: Performed By: #### C MP, LIPID, TSH #### [facility] [address] [address] [address] Rancho Cobos PROF 14(COMP METB)on 023 Albumin [Mass/Vol] 4.0 g/dL Normal 3.4-5.0 [facility] Comment on above: Performed By: #### C MP, LIPID, TSH #### [facility] [address] [place] [address] Dr. Rancho Cobos Albumin/Globulin [Mass ratio] 1.2 {ratio} Normal [facility] Comment on above: Performed By: #### C MP, LIPID, TSH #### [facility] [address] [place] [address] Dr. Rancho Cobos ALP [Catalytic activity/Vol] 34 U/L Critically low 46-116 [facility] Comment on above: Performed By: #### C MP, LIPID, TSH #### [facility] [address] [place] [address] Dr. Rancho Cobos ALT [Catalytic activity/Vol] 24 U/L Normal 14-59 [facility] Comment on above: Performed By: #### C MP, LIPID, TSH #### [facility] [address] [place] [address] Dr. Rancho Cobos Anion gap [Moles/Vol] 12.1 mmol/L Normal [facility] Comment on above: Performed By: #### C MP, LIPID, TSH #### [facility] [address] [place] [address] Dr. Rancho Cobos AST [Catalytic activity/Vol] 17 U/L Normal 15-37 [facility] Comment on above: Performed By: #### C MP, LIPID, TSH #### [facility] [address] [address] [address] Rancho Cobos Bilirubin [Mass/Vol] 0.5 mg/dL Normal 0.2-1.0 [facility] Comment on above: Performed By: #### C MP, LIPID, TSH #### [facility] [address] [address] [address] Rancho Cobos Calcium [Mass/Vol] 9.2 mg/dL Normal 8.5-10.1 [facility] Comment on above: Performed By: #### C MP, LIPID, TSH #### [facility] [address] [address] [address] Rancho Cobos Chloride [Moles/Vol] 107 mmol/L Normal 98-107 [facility] Comment on above: Performed By: #### C MP, LIPID, TSH #### [facility] [address] [place] [address] Dr. Rancho Cobos CO2 [Moles/Vol] 28.5 mmol/L Normal 21.0-32.0 [facility] Comment on above: Performed By: #### C MP, LIPID, TSH #### [facility] [address] [place] [address] Dr. Rancho Cobos Creatinine [Mass/Vol] 0.72 mg/dL Normal 0.55-1.02 [facility] Comment on above: Performed By: #### C MP, LIPID, TSH #### [facility] [address] [place] [address] Dr. Rancho Cobos EGFR-AF MOSOTHO >60 Normal >=60 [facility] Comment on above: Performed By: #### C MP, LIPID, TSH #### [facility] [address] [place] [address] Dr. Rancho Cobos EGFR-NON AF MOSOTHO >60 Normal >=60 [facility] Comment on above: Performed By: #### C MP, LIPID, TSH #### [facility] [address] [place] [address] Dr. Rancho Cobos Globulin (S) [Mass/Vol] 3.4 g/dL Normal [facility] Comment on above: Performed By: #### C MP, LIPID, TSH #### [facility] [address] [place] [address] Dr. Rancho Cobos Glucose [Mass/Vol] 92 mg/dL Normal 74-106 [facility] Comment on above: Performed By: #### C MP, LIPID, TSH #### [facility] [address] [place] [address] Dr. Rancho Cobos Potassium [Moles/Vol] 4.6 mmol/L Normal 3.5-5.1 [facility] Comment on above: Performed By: #### C MP, LIPID, TSH #### [facility] [address] [place] [address] Dr. Rancho Cobos Protein [Mass/Vol] 7.4 g/dL Normal 6.4-8.2 [facility] Comment on above: Performed By: #### C MP, LIPID, TSH #### [facility] [address] [place] [address] Dr. Rancho Cobos Sodium [Moles/Vol] 143 mmol/L Normal 136-145 [facility] Comment on above: Performed By: #### C MP, LIPID, TSH #### [facility] [address] [place] [address] Dr. Rancho Cobos Urea nitrogen [Mass/Vol] 18.0 mg/dL Normal 7.0-18.0 [facility] Comment on above: Performed By: #### C MP, LIPID, TSH #### [facility] [address] [place] [address] Dr. Rancho Cobos Urea nitrogen/Creatinin e [Mass ratio] 25.0 mg/mg Normal [facility] Comment on above: Performed By: #### C MP, LIPID, TSH #### [facility] [address] [place] [address] Dr. Rancho Cobos TSHon 10-27-2022 TSH 1.005 uIU/mL Normal 0.358-3.740 [facility] Comment on above: Performed By: #### C MP, LIPID, TSH #### [facility] [address] [place] [address] Dr. Rancho Cobos MRI ABDOMEN WO/W IVCONon [...] suspicious marrow signal abnormality. Lower chest: Unremarkable. Process Eng (localizer) images: No additional findings. IMPRESSION: Evolving changes of RIGHT rectus abdominis muscle ablation without local recurrence. No metastatic disease in abdomen or pelvis Mix Technician: ANEL Transcribe Date/Time: Apr 22 2022 10:29A Dictated by : LIBRADO JOAQUIN DO This examination was interpreted and the report reviewed and electronically signed by: CANELO EDMONDSON MD on Apr 22 2022 12:49PM EST [id number] Normal [facility] MRI PELVIS WO/W IVCONon 10-0 MRI PELVIS [...] suspicious marrow signal abnormality. Lower chest: Unremarkable. Process Eng (localizer) images: No additional findings. IMPRESSION: Evolving changes of RIGHT rectus abdominis muscle ablation without local recurrence. No metastatic disease in abdomen or pelvis Mix Technician: ANEL Transcribe Date/Time: Apr 22 2022 10:29A Dictated by : LIBRADO JOAQUIN, DO This examination was interpreted and the report reviewed and electronically signed by: CANELO EDMONDSON MD on Apr 22 2022 12:49PM EST [id number] Normal [facility] 10-28-2021 CNPN Telephone (HEMCA3) OSCAR PINEDA ([id number]) 1985 F Date Time Provider Department 10/28/21 MELANI RUSSELL HEMCA3 During your visit today, we recorded the following information about you: Brittany Avendaño ADM 10/28/2021 10:04 AM Signed Oscar Pineda is calling Melani Russell MD today regarding Care Coordination,calling with questions about with her condition. Patient has been identified by name and birthdate. Duration of symptoms: N/A Requesting response back: call on cell [phone] (home) [phone] (cell) Brittany Avendaño ADM October 28, 2021 Brittany Banueloss [facility] 10/30/2021 3:25 PM Signed Patient calling stating she has not received a call back, Please call @ [phone] Melani Russell MD 11/19/2021 10:20 AM Signed This has been addressed through an [employer] message. Melani Russell MD, PhD Staff, Hematology and Medical Oncology Allergies As of Date: 10/28/2021 Noted Allergy Reaction CODEINE 02/01/2021 8 - GI Upset ADHESIVE TAPE-SILICONES 02/14/2021 14 - Other: See Comments Comments: Blisters Date Reviewed: 09/27/2021 Reviewed by: Aliya Jean Baptiste RN - Fully Assessed Reason for Visit: Care Coordination [1721] Prescriptions as of 11/19/2021 - sulindac (CLINORIL) [...] 11/01/21 Normal [facility] CNOVSPon 09-27-2021 CNOVSP Visit (SP) Office (HEMCA4) SARAVANANOSCAR GRACE ([id number]) 1985 F Date Time Provider Department 09/27/21 9:00 AM MELANI RUSSELL During your visit today, we recorded the following information about you: Pulse Respiration Blood pressure Weight 65/minute 20/minute 149/67 77.6 kg Melani Russell MD 10/07/2021 12:24 PM Signed [facility] ESTABLISHED PATIENT VISIT PATIENT NAME: Oscar [...] Melani Pérez MD Internal Medicine Resident, PGY-1 [facility] 09/27/2021 SOLID TUMOR STAFF: ATTENDING [...] No Does patient want to see a Security Alarm Technician? No (yes to any of (more content not included)... Normal [facility] MRI ABDOMEN WO/W IVCONon MRI ABDOMEN WO/W [...] diffusion weighted and T1 weighted in- and [id number] images were obtained. Then, using a 3-D [...] muscle mass, without evidence for residual/recurrent disease. Mix Technician: PSCB Transcribe Date/Time: Sep 20 2021 4:49P Dictated by : CHRIS MILIAN MD This examination was interpreted and the report reviewed and electronically signed by: CHRIS MILIAN MD on Sep 20 2021 4:58PM EST [id number] Normal [facility] MRI PELVIS WO/W IVCONon 03-0 MRI PELVIS [...] diffusion weighted and T1 weighted in- and [id number] images were obtained. Then, using a 3-D [...] muscle mass, without evidence for residual/recurrent disease. Mix Technician: ANEL Transcribe Date/Time: Sep 20 2021 4:49P Dictated by : CHRIS MILIAN MD This examination was interpreted and the report reviewed and electronically signed by: CHRIS MILIAN MD on Sep 20 2021 4:58PM EST [id number] Normal [facility] CNPNon 08-09-2021 CNPN Telephone (HEMCA3) OSCAR PINEDA ([id number]) 1985 F Date Time Provider Department 08/09/21 [...] N/A Requesting response back: call on cell [phone] (home) [phone] (cell) Marva Gualberto Adm August 09, 2021 Chey Tamayo RN 08/09/2021 4:42 PM Signed Returned call to patient and informed her that moving her visit with Dr. Russell after the MRI would be best to establish a plan of care. Patient was appreciative of return call and information. Chey Tamayo RN Spout Liner August 09, 2021 Allergies As of Date: 08/09/2021 Noted Allergy Reaction CODEINE 02/01/2021 8 - GI Upset ADHESIVE TAPE-SILICONES 02/14/2021 14 - Other: See Comments Comments: Blisters Date Reviewed: 04/30/2021 Reviewed by: Magda Rose RN - Fully Assessed Reason for Visit: Care Coordination [1741] Cmt: appointment question Prescriptions as of 08/09/2021 [...] Encounter Status:Closed by CLARIT[facility]GM[facility] OSCAR PINEDA ([id number]) 1985 F Date Time Provider Department 05/22/21 MELIDA QUINTERO During your visit today, we recorded the following information about you: LANETTE De Leon 05/22/2021 2:32 PM Signed Patient name and was confirmed at initiation of discussion. Oscar Pineda's Common Hereditary Cancers Panel through [employer] was negative for a pathogenic variant. Please [...] Encounter Status:Closed by MELIDA QUINTERO on 05/22/21 [facility] 05-15-2021 CNPN Telephone (HEMCA3) OSCAR PINEDA ([id number]) 1985 F Date Time Provider Department 05/15/21 [...] N/A Requesting response back: call on cell [phone] (home) [phone] (cell) Marva Burciaga Adm May 15, 2021 [...] Status:Closed by MELANI RUSSELL on 05/17/21 Normal [facility] Molecular Teston 2020 Test Common Hereditary Cancers Panel Normal [facility] Comment on above: Performed By: #### M OL13 ####[facility] [id number] [place] [address] Test Results View results in Scan zahraa Documents link when available. Normal [facility] Comment on above: Performed By: #### M OL13 ####[facility] [id number] [place] [address] Nishant 05-01-2021 NGUYENN Telephone (JULIANN) OSCAR PINEDA ([id number]) 1985 F Date Time Provider Department 05/01/21 [...] questions or concerns. Mindy Farley Genetic Counselor Mitigation Supervisor Allergies As of Date: 05/01/2021 Noted Allergy [...] 05/01/21 Normal [facility] CBCon 04-30-2021 Absolute nRBC <0.01 Normal <0.01 [facility] Comment on above: Performed By: #### C BC ####[facility] [id number] [place], [place] [phone] Erythrocyte distribution width (RBC) [Ratio] 12.0 % Normal 11.5-15.0 [facility] Comment on above: Performed By: #### C BC ####[facility] [id number] [place], [place] [phone] Hematocrit (Bld) [Volume fraction] 33.8 % Low 36.0-46.0 [facility] Comment on above: Performed By: #### C BC ####[address] [address] [place], [place] [phone] Hemoglobin (Bld) [Mass/Vol] 11.8 g/dL Normal 11.5-15.5 [facility] Comment on above: Performed By: #### C BC ####[address] [place], [place] [phone] MCH 31.5 pG Normal 26.0-34.0 [facility] Comment on above: Performed By: #### C BC ####[address] [phone] MCHC (RBC) [Mass/Vol] 34.9 g/dL Normal 30.5-36.0 [facility] Comment on above: Performed By: #### C BC ####[address] [phone] MCV (RBC) [Entitic vol] 90.1 fL Normal 80.0-100.0 [facility] Comment on above: Performed By: #### C BC ####[address] [phone] Platelet mean volume (Bld) [Entitic vol] 9.6 fL Normal 9.0-12.7 [facility] Comment on above: Performed By: #### C BC ####[address] [place], [place] [phone] Platelets (Bld) [#/Vol] 182 10*3/uL Normal 150-400 [facility] Comment on above: Performed By: #### C BC ####[address] [place], [place] [phone] RBC (Bld) [#/Vol] 3.75 10*6/uL Low 3.90-5.20 [facility] Comment on above: Performed By: #### C BC ####[facility] [id number] [place], [place] [phone] WBC (Bld) [#/Vol] 12.88 10*3/uL High 3.70-11.00 [facility] Comment on above: Performed By: #### C BC ####[facility] [id number] [place], [place] [phone] CNDSon 04-30-2021 CNDS HNO ID: [id number] Author: Katty Logan APRN.WAREHOUSE PULLER Service: Critical Care Author Type: Nurse Practitioner [...] included)... Normal [facility] THERAPY NTon 04-30-2021 THERAPY NT HNO ID: [id number] Author: Licha Llanes, PT Service: Physical Therapy Author Type: Physical Therapist Type: Therapy (PT/OT/Speech/Resp) Filed: 04/30/2021 3:02 PM Note Text: Physical Therapy Treatment SERVICE DATE: 04/30/2021 SERVICE TIME: 1342 to 1351 ROOM: [place] [address] Recommended Discharge Disposition: Home Recommended Discharge Disposition [...] gait and mobility-other Interventions Provided: Gait Training (72641) Gait Training (94245) Treatment Minutes: 9 $ Gait Training (20187) Billed Units: 1 unit Training AND education provided in: Discharge planning, Energy conservation, Exercise program, Expected functional level, Falls prevention, Gait pattern, reduction of deviations, Home safe (more content not included)... Normal [facility] ALLIED HEALTHon 04-29-2021 ALLIED HEALTH HNO ID: [id number] Author: Ana Watters RN Service: Healing Service [...] 29, 2021 TIME: 8:11 AM CONTACT #: [phone] [facility] APTTon 04-29-2021 aPTT Coag (Bld) [Time] 26.4 s Normal 23.0-32.4 [facility] Comment on above: Result Comment: Unfr actionated [...] laboratory APTT reagent in use throughout the [facility]. 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 Last discharge within 30 days: No Advance Directive: Current Advance Directive: None [place] Attempted to Assist with AD Completion: No [...] Information Primary Emergency Contact: LAURA PINEDA Address: [address] [place] [address] [facility] Mobile Relation: Spouse Supportive Patient Contact:: Yes Contact Resources: Family Family Name/Phone: LAURA PINEDA (Spouse) [phone] Caregiver AssessmentCaregiver is ready, willing and able [...] Mostly I feel financially burdened by my [id number] expenses for my prescription medication:: 0 - Disagree Mostly Risk Score: 0 Patient is categorized as: Low risk < 2 Med Adherance Assessement not completed due to: No [employer] meds Are you interested in bedside delivery of your medications? Yes Is Patient Psychosocially Complex?: No ASSESSMENT AND PLAN: Medical Needs: Medical Needs: None Psychosocial Needs: Psychosocial Needs: None FREEDOM OF CHOICE EXPLAINED: [place] of Choice Given: No Reason Not Given: No placements necessary POTENTIAL TRANSITION PLANS No Services Indicated SIGNATURE: Rocio Bear RN MSN PATIENT NAME: Oscar Pineda DATE: April 29, 2021 TIME: 11:53 AM PAGER/CONTACT #: [phone] Normal [facility] CBCon 04-29-2021 Absolute nRBC <0.01 Normal <0.01 [facility] Comment on above: Performed By: #### C BC, MG1, PHOS, PTT, CMP, PT ####[facility] [address] [place], [place] [phone] Erythrocyte distribution width (RBC) [Ratio] 11.8 % Normal 11.5-15.0 [facility] Comment on above: Performed By: #### C BC, MG1, PHOS, PTT, CMP, PT ####[place] [address] [place] [phone] Hematocrit (Bld) [Volume fraction] 37.0 % Normal 36.0-46.0 [facility] Comment on above: Performed By: #### C BC, MG1, PHOS, PTT, CMP, PT ####[place] [address] [place] [phone] Hemoglobin (Bld) [Mass/Vol] 12.3 g/dL Normal 11.5-15.5 [facility] Comment on above: Performed By: #### C BC, MG1, PHOS, PTT, CMP, PT ####[place] [address] [place] [phone] MCH 30.9 pG Normal 26.0-34.0 [facility] Comment on above: Performed By: #### C BC, MG1, PHOS, PTT, CMP, PT ####[place] [address] [place] [phone] MCHC (RBC) [Mass/Vol] 33.2 g/dL Normal 30.5-36.0 [facility] Comment on above: Performed By: #### C BC, MG1, PHOS, PTT, CMP, PT ####[place] [address] [place] [phone] MCV (RBC) [Entitic vol] 93.0 fL Normal 80.0-100.0 [facility] Comment on above: Performed By: #### C BC, MG1, PHOS, PTT, CMP, PT ####[place] [address] [place] [phone] Platelet mean volume (Bld) [Entitic vol] 10.0 fL Normal 9.0-12.7 [facility] Comment on above: Performed By: #### C BC, MG1, PHOS, PTT, CMP, PT ####[facility]CRaw[address], [place] [phone] Platelets (Bld) [#/Vol] 188 10*3/uL Normal 150-400 [facility] Comment on above: Performed By: #### C BC, MG1, PHOS, PTT, CMP, PT ####[place] [address], [place] [phone] RBC (Bld) [#/Vol] 3.98 10*6/uL Normal 3.90-5.20 [facility] Comment on above: Performed By: #### C BC, MG1, PHOS, PTT, CMP, PT ####[place] [address], [place] [phone] WBC (Bld) [#/Vol] 11.41 10*3/uL High 3.70-11.00 [facility] Comment on above: Performed By: #### C BC, MG1, PHOS, PTT, CMP, PT ####[place] [address], [place] [phone] Comp Metabolic Panelon 04-29 Albumin [Mass/Vol] 3.5 g/dL Low 3.9-4.9 [facility] Comment on above: Performed By: #### C BC, MG1, PHOS, PTT, CMP, PT ####[place] [address], [place] [phone] ALP [Catalytic activity/Vol] 43 U/L Normal 34-123 [facility] Comment on above: Performed By: #### C BC, MG1, PHOS, PTT, CMP, PT ####[place] [address] AveCRawlings, [place] [phone] ALT [Catalytic activity/Vol] 56 U/L High 7-38 [facility] Comment on above: Performed By: #### C BC, MG1, PHOS, PTT, CMP, PT ####[place] [address] AveCRawlings, [place] [phone] Anion gap [Moles/Vol] 14 mmol/L Normal 9-18 [facility] Comment on above: Performed By: #### C BC, MG1, PHOS, PTT, CMP, PT ####[place] [address], [place] [phone] AST [Catalytic activity/Vol] 171 U/L High 13-35 [facility] Comment on above: Performed By: #### C BC, MG1, PHOS, PTT, CMP, PT ####[place] [address], [place] [phone] Bilirubin [Mass/Vol] 0.6 mg/dL Normal 0.2-1.3 [facility] Comment on above: Performed By: #### C BC, MG1, PHOS, PTT, CMP, PT ####[place] [address], [place] [phone] Calcium [Mass/Vol] 8.3 mg/dL Low 8.5-10.2 [facility] Comment on above: Performed By: #### C BC, MG1, PHOS, PTT, CMP, PT ####[place] [address], [place] [phone] Chloride [Moles/Vol] 100 mmol/L Normal 97-105 [facility] Comment on above: Performed By: #### C BC, MG1, PHOS, PTT, CMP, PT ####[place] [address] AveCRaw[address], [place] [phone] CO2 [Moles/Vol] 25 mmol/L Normal 22-30 [facility] Comment on above: Performed By: #### C BC, MG1, PHOS, PTT, CMP, PT ####[place] [address]CRaw[address], [place] [phone] Creatinine [Mass/Vol] 0.78 mg/dL Normal 0.58-0.96 [facility] Comment on above: Performed By: #### C BC, MG1, PHOS, PTT, CMP, PT ####[facility] [place], [place] [phone] eGFR- Amer. >60 Normal [facility] Comment on above: Performed By: #### C BC, MG1, PHOS, PTT, CMP, PT ####[facility] [place], [place] [phone] eGFR-All Other Races >60 Normal [facility] Comment on above: Result Comment: eGFR (Estimated [...] MG1, PHOS, PTT, CMP, PT ####[place] [address] [place], [place] [phone] Glucose [Mass/Vol] 167 mg/dL High 74-99 [facility] Comment on above: Result Comment: The [place] Diabetes Association (ADA) provides guidance for cutoff [...] Standards of Medical Care in Diabetes 2016, [place] [employer] Association. Diabetes Care. 2016.39(Suppl 1). Performed By: #### C BC, MG1, PHOS, PTT, CMP, PT ####[place] [address], [place] [phone] Potassium [Moles/Vol] 3.9 mmol/L Normal 3.7-5.1 [facility] Comment on above: Performed By: #### C BC, MG1, PHOS, PTT, CMP, PT ####[address] AvThomas [place] [phone] Protein [Mass/Vol] 6.0 g/dL Low 6.3-8.0 [facility] Comment on above: Performed By: #### C BC, MG1, PHOS, PTT, CMP, PT ####[place] [phone] Sodium [Moles/Vol] 139 mmol/L Normal 136-144 [facility] Comment on above: Performed By: #### C BC, MG1, PHOS, PTT, CMP, PT ####[address] Av[address], [place] [phone] Urea nitrogen [Mass/Vol] 9 mg/dL Normal 7-21 [facility] Comment on above: Performed By: #### C BC, MG1, PHOS, PTT, CMP, PT ####[address] [phone] GASV + ALLon 04-29-2021 Base Excess 4 mmol/L Normal [facility] Comment on above: Performed By: #### V ALLBG ####[address] [phone] Calcium [Moles/Vol] 1.15 mmol/L Normal 1.08-1.30 [facility] Comment on above: Performed By: #### V ALLBG ####[address] [phone] Carboxyhemoglobin, Ziyad 1.2 % Normal <2.1 [facility] Comment on above: Performed By: #### V ALLBG ####[place] [address] [place] [phone] CO2 [Moles/Vol] 31 mmol/L High 25-29 [facility] Comment on above: Performed By: #### V ALLBG ####[place] [address] [place] [phone] Glucose [Mass/Vol] 178 mg/dL High 60-105 [facility] Comment on above: Performed By: #### V ALLBG ####[place] [address] [place] [phone] HCO3 (Bld) [Moles/Vol] 29 mmol/L High 24-28 [facility] Comment on above: Performed By: #### V ALLBG ####[place] [address] [place] [phone] Lactate [Moles/Vol] 1.3 mmol/L Normal 0.5-2.2 [facility] Comment on above: Performed By: #### V ALLBG ####[place] [address] [place] [phone] Methemoglobin 0.7 % Normal <1.6 [facility] Comment on above: Performed By: #### V ALLBG ####[place] [address] [place] [phone] O2 Administered 40% Normal [facility] Comment on above: Performed By: #### V ALLBG ####[place] [address] [place] [phone] pCO2 51 mm Hg Normal 42-55 [facility] Comment on above: Performed By: #### V ALLBG ####[place] [address] [place] [phone] pCO2, Temp Correct 51 mm Hg Normal 42-55 [facility] Comment on above: Performed By: #### V ALLBG ####[facility]CRaw[address], [place] [phone] Potassium [Moles/Vol] 4.0 mmol/L Normal 3.5-5.0 [facility] Comment on above: Performed By: #### V ALLBG ####[place] [address]CRaw[address], [place] [phone] Base Excess 3 mmol/L Normal [facility] Comment on above: Performed By: #### V ALLBG ####[facility]CR[address], [place] [phone] Blood Gas Comm, Ziyad . Normal [facility] Comment on above: Performed By: #### V ALLBG ####[place] [address], [place] [phone] Body temperature 98.6 [degF] Normal [facility] Comment on above: Performed By: #### V ALLBG ####[place] [address], [place] [phone] Calcium [Moles/Vol] 1.18 mmol/L Normal 1.08-1.30 [facility] Comment on above: Performed By: #### V ALLBG ####[place] [address], [place] [phone] Carboxyhemoglobin, Ziyad 0.9 % Normal <2.1 [facility] Comment on above: Performed By: #### V ALLBG ####[facility]CR[address], [place] [phone] CO2 [Moles/Vol] 30 mmol/L High 25-29 [facility] Comment on above: Performed By: #### V ALLBG ####[place] [address], [place] [phone] Glucose [Mass/Vol] 193 mg/dL High 60-105 [facility] Comment on above: Performed By: #### V ALLBG ####[place] [address] [place] [phone] HCO3 (Bld) [Moles/Vol] 28 mmol/L Normal 24-28 [facility] Comment on above: Performed By: #### V ALLBG ####[place] [address] [place] [phone] Hematocrit (Bld) [Volume fraction] 39.0 % Normal 36.0-46.0 [facility] Comment on above: Performed By: #### V ALLBG ####[place] [address] [place] [phone] Hemoglobin (Bld) [Mass/Vol] 12.7 g/dL Normal 11.5-15.5 [facility] Comment on above: Performed By: #### V ALLBG ####[place] [address] [place] [phone] Lactate [Moles/Vol] 1.6 mmol/L Normal 0.5-2.2 [facility] Comment on above: Performed By: #### V ALLBG ####[place] [address] [place] [phone] Methemoglobin 1.0 % Normal <1.6 [facility] Comment on above: Performed By: #### V ALLBG ####[place] [address] [place] [phone] O2 Administered 30% Normal [facility] Comment on above: Performed By: #### V ALLBG ####[place] [address] [place] [phone] Oxyhemoglobin, Ziyad. 78 % Normal 60-85 [facility] Comment on above: Performed By: #### V ALLBG ####[place] [address]CR[address], [place] [phone] pCO2 49 mm Hg Normal 42-55 [facility] Comment on above: Performed By: #### V ALLBG ####[place] [address]CRaw[address], [place] [phone] pCO2, Temp Correct 49 mm Hg Normal 42-55 [facility] Comment on above: Performed By: #### V ALLBG ####[place] [address] AvM[place], [place] [phone] pH (Bld) 7.38 [pH] Normal 7.32-7.42 [facility] Comment on above: Performed By: #### V ALLBG ####[place] [address], [place] [phone] pH, Temp Corrected 7.38 Normal 7.32-7.42 [facility] Comment on above: Performed By: #### V ALLBG ####[place] [address], [place] [phone] pO2 46 mm Hg High 35-45 [facility] Comment on above: Performed By: #### V ALLBG ####[place] [address] [place], [place] [phone] pO2, Temp Corrected 46 mm Hg High 35-45 [facility] Comment on above: Performed By: #### V ALLBG ####[place] [address] [place], [place] [phone] Potassium [Moles/Vol] 4.3 mmol/L Normal 3.5-5.0 [facility] Comment on above: Performed By: #### V ALLBG ####[place] [address], [place] [phone] Sodium [Moles/Vol] 141 mmol/L Normal 136-144 [facility] Comment on above: Performed By: #### V ALLBG ####[address] [phone] Magnesiumon 04-29-2021 Magnesium [Mass/Vol] 1.8 mg/dL Normal 1.7-2.3 [facility] Comment on above: Performed By: #### C BC, MG1, PHOS, PTT, CMP, PT ####[facility] [address] [place], [place] [phone] NURSING PROGon 04-29-2021 NURSING PROG HNO ID: [id number] Author: Magda Rose RN Service: ? Author Type: Registered Nurse Type: Nursing Progress Note Filed: 04/29/2021 7:45 AM Note Text: Nursing Progress: Topic: RESTRAINT NON-VIOLENT PATIENT NAME: Oscar Pineda PATIENT LOCATION: [place] [address] The patient demonstrates Attempting to Remove Medical [...] RN Normal [facility] Phosphoruson 04-29-2021 Phosphate [Mass/Vol] 3.2 mg/dL Normal 2.7-4.8 [facility] Comment on above: Performed By: #### C BC, MG1, PHOS, PTT, CMP, PT ####[facility] [address] [place], [place] [phone] Protimeon 04-29-2021 PT INR 1.0 Normal 0.9-1.3 [facility] Comment on above: Result Comment: Neha min K Antagonist (VKA) Therapeutic Range: INR 2 to 3 (Target INR of 2.5) Note: For patients treated with VKA drugs, such as warfarin, the [place] [employer] 2012 Guideline recommends [...] Chest 2012, 141:7S-47S Daphne RA, et al. [facility] 2017, 70: 252-289 Performed By: #### C BC, MG1, PHOS, PTT, CMP, PT ####[facility] [place], [place] [phone] PT Sec 11.0 sec Normal 9.7-13.0 [facility] Comment on above: Performed By: #### C BC, MG1, PHOS, PTT, CMP, PT ####[facility] [place], [place] [phone] THERAPY NTon 04-29-2021 THERAPY NT HNO ID: [id number] Author: Neela Prasad, PT Service: Physical Therapy Author Type: Physical Therapist Type: Therapy (PT/OT/Speech/Resp) Filed: 04/29/2021 10:05 AM Note Text: Physical Therapy Evaluation SERVICE DATE: 04/29/2021 SERVICE TIME: 907 to 945 ROOM: [place] [address] Recommended Discharge Disposition: Home Recommended Discharge Disposition [...] trunk posture;Step length decreased;Non-functiona l gait speed [facility] 7: Walk 25 feet or more [...] Diagnosis: Reduced mobility-other Interventions Provided: Evaluation;Gait Training (92467);Therapeutic Activity (23092) $ Evaluation-Moderate (91400) Billed Units: 1 unit Therapeutic Activity (89623) Treatment Minutes: 8 $ Therapeutic Activity (00498) Billed Units: 1 unit Gait Training (77762) Treatment Minutes: 15 $ Gait Training (05125) Billed Units: 1 unit Training AND education [...] included)... Normal [facility] Type and Screenon 04-29-2021 ABO/RH(D) Positive Normal [facility] Comment on above: Performed By: #### T SCR ####[facility] [address] [place], [place] [phone] APTTon 04-28-2021 aPTT Coag (Bld) [Time] 26.6 s Normal 23.0-32.4 [facility] Comment on above: Result Comment: Unfr actionated [...] laboratory APTT reagent in use throughout the [facility]. Performed By: #### P T, PTT, TRIG, CMP, CBC, MG1, PHOS ####[place] [address]CR[address], [place] [phone] Blood Cultureon 04-28-2021 Bacteria identified Cx Nom (Bld) Culture Result - No growth 5 days Normal [facility] Comment on above: Performed By: #### B LCUL ####[place] [address] [place] [phone] Bacteria identified Cx Nom (Bld) Culture Result - No growth 5 days Normal [facility] Comment on above: Performed By: #### B LCUL ####[place] [address] [place] [phone] CBCon 04-28-2021 Absolute nRBC <0.01 Normal <0.01 [facility] Comment on above: Performed By: #### P T, PTT, TRIG, CMP, CBC, MG1, PHOS ####[place] [address] [place] [phone] Erythrocyte distribution width (RBC) [Ratio] 12.4 % Normal 11.5-15.0 [facility] Comment on above: Performed By: #### P T, PTT, TRIG, CMP, CBC, MG1, PHOS ####[address] [place] [phone] Hematocrit (Bld) [Volume fraction] 36.1 % Normal 36.0-46.0 [facility] Comment on above: Performed By: #### P T, PTT, TRIG, CMP, CBC, MG1, PHOS ####[place] [address] [place] [phone] Hemoglobin (Bld) [Mass/Vol] 11.8 g/dL Normal 11.5-15.5 [facility] Comment on above: Performed By: #### P T, PTT, TRIG, CMP, CBC, MG1, PHOS ####[place] [address] [place], [place] [phone] MCH 30.9 pG Normal 26.0-34.0 [facility] Comment on above: Performed By: #### P T, PTT, TRIG, CMP, CBC, MG1, PHOS ####[place] [address], [place] [phone] MCHC (RBC) [Mass/Vol] 32.7 g/dL Normal 30.5-36.0 [facility] Comment on above: Performed By: #### P T, PTT, TRIG, CMP, CBC, MG1, PHOS ####[address] [phone] MCV (RBC) [Entitic vol] 94.5 fL Normal 80.0-100.0 [facility] Comment on above: Performed By: #### P T, PTT, TRIG, CMP, CBC, MG1, PHOS ####[address] [phone] Platelet mean volume (Bld) [Entitic vol] 9.8 fL Normal 9.0-12.7 [facility] Comment on above: Performed By: #### P T, PTT, TRIG, CMP, CBC, MG1, PHOS ####[address] [place], [place] [phone] Platelets (Bld) [#/Vol] 178 10*3/uL Normal 150-400 [facility] Comment on above: Performed By: #### P T, PTT, TRIG, CMP, CBC, MG1, PHOS ####[place] [address], [place] [phone] RBC (Bld) [#/Vol] 3.82 10*6/uL Low 3.90-5.20 [facility] Comment on above: Performed By: #### P T, PTT, TRIG, CMP, CBC, MG1, PHOS ####[place] [address], [place] [phone] WBC (Bld) [#/Vol] 11.29 10*3/uL High 3.70-11.00 [facility] Comment on above: Performed By: #### P T, PTT, TRIG, CMP, CBC, MG1, PHOS ####[facility] [address] AveCRawlings, [place] [phone] CT ABD/PEL W IVCONon 021 CT ABD/PEL W IVCON * * *Final Report* * * DATE OF EXAM: Apr 28 2021 2:10PM [facility] [place] ABD/PEL W IVCON [...] chest CT performed will be reported separately. Process Eng (topogram) images: No additional findings. IMPRESSION: Resolution of intravenous gas within the abdomen and pelvis. 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 Mix Technician: PSCB Transcribe Date/Time: Apr 28 2021 2:50P Dictated by : KASHMIR RIVERA MD This examination was interpreted and the report reviewed and electronically signed by: ELIAS WOODY MD on Apr 28 2021 4:13PM EST [id number] Normal [facility] CT CHEST W IVCONon CT CHEST W IVCON * * *Final Report* * * DATE OF EXAM: Apr 28 2021 2:10PM [facility] [place] CHEST W IVCON [...] There is minimal intrahepatic biliary ductal dilation. Process Eng (topogram) images: No additional findings. IMPRESSION: 1. No CT evidence of air embolism within the systemic veins, right-sided heart chambers, central pulmonary arteries and hepatic veins. 2. Posterior complete LEFT lower lobe, partially dependent RIGHT lower lobe and dependent LEFT upper lobe atelectasis. Given the distribution, this finding may be related to aspiration. Trace bilateral pleural effusions. Mix Technician: ANEL Transcribe Date/Time: Apr 28 2021 3:35P Dictated by : MICHELLE PETERSEN MD This examination was interpreted and the report reviewed and electronically signed by: MICHELLE PETERSEN MD on Apr 28 2021 3:45PM EST [id number] Normal [facility] Comp Metabolic Panelon 04-28 Albumin [Mass/Vol] 3.0 g/dL Low 3.9-4.9 [facility] Comment on above: Performed By: #### P T, PTT, TRIG, CMP, CBC, MG1, PHOS ####[facility] [address] [place], [place] [phone] ALP [Catalytic activity/Vol] 36 U/L Normal 34-123 [facility] Comment on above: Performed By: #### P T, PTT, TRIG, CMP, CBC, MG1, PHOS ####[facility] [place], [place] [phone] ALT [Catalytic activity/Vol] 32 U/L Normal 7-38 [facility] Comment on above: Performed By: #### P T, PTT, TRIG, CMP, CBC, MG1, PHOS ####[place] [address], [place] [phone] Anion gap [Moles/Vol] 10 mmol/L Normal 9-18 [facility] Comment on above: Performed By: #### P T, PTT, TRIG, CMP, CBC, MG1, PHOS ####[address] [phone] AST [Catalytic activity/Vol] 102 U/L High 13-35 [facility] Comment on above: Performed By: #### P T, PTT, TRIG, CMP, CBC, MG1, PHOS ####[address], [place] [phone] Bilirubin [Mass/Vol] 0.3 mg/dL Normal 0.2-1.3 [facility] [facility] Comment on above: Performed By: #### P T, PTT, TRIG, CMP, CBC, MG1, PHOS ####[address] [phone] Calcium [Mass/Vol] 7.9 mg/dL Low 8.5-10.2 [facility] Comment on above: Performed By: #### P T, PTT, TRIG, CMP, CBC, MG1, PHOS ####[address] [phone] Chloride [Moles/Vol] 107 mmol/L High 97-105 [facility] Comment on above: Performed By: #### P T, PTT, TRIG, CMP, CBC, MG1, PHOS ####[place] [address] [address], [place] [phone] CO2 [Moles/Vol] 25 mmol/L Normal 22-30 [facility] Comment on above: Performed By: #### P T, PTT, TRIG, CMP, CBC, MG1, PHOS ####[place] [address] [address], [place] [phone] Creatinine [Mass/Vol] 0.85 mg/dL Normal 0.58-0.96 [facility] Comment on above: Performed By: #### P T, PTT, TRIG, CMP, CBC, MG1, PHOS ####[facility] [place], [place] [phone] eGFR- Amer. >60 Normal [facility] Comment on above: Performed By: #### P T, PTT, TRIG, CMP, CBC, MG1, PHOS ####[facility] [place] [address] [phone] eGFR-All Other Races >60 Normal [facility] Comment on above: Result Comment: eGFR (Estimated [...] T, PTT, TRIG, CMP, CBC, MG1, PHOS ####[place] [address] [place], [place] [phone] Glucose [Mass/Vol] 86 mg/dL Normal 74-99 [facility] Comment on above: Result Comment: The [place] [employer] (ADA) provides guidance for cutoff [...] Standards of Medical Care in Diabetes 2016, [place] [employer]. Diabetes Care. 2016.39(Suppl 1). Performed By: #### P T, PTT, TRIG, CMP, CBC, MG1, PHOS ####[address] [phone] Potassium [Moles/Vol] 3.8 mmol/L Normal 3.7-5.1 [facility] Comment on above: Performed By: #### P T, PTT, TRIG, CMP, CBC, MG1, PHOS ####[place] [phone] Protein [Mass/Vol] 5.2 g/dL Low 6.3-8.0 [facility] Comment on above: Performed By: #### P T, PTT, TRIG, CMP, CBC, MG1, PHOS ####[address] [phone] Sodium [Moles/Vol] 142 mmol/L Normal 136-144 [facility] Comment on above: Performed By: #### P T, PTT, TRIG, CMP, CBC, MG1, PHOS ####[place] [phone] Urea nitrogen [Mass/Vol] 15 mg/dL Normal 7-21 [facility] Comment on above: Performed By: #### P T, PTT, TRIG, CMP, CBC, MG1, PHOS ####[address] [phone] GASV + ALLon 04-28-2021 Base Excess 2 mmol/L Normal [facility] Comment on above: Performed By: #### V ALLBG ####[address] [phone] Blood Gas Comm, Ziyad . Normal [facility] Comment on above: Performed By: #### V ALLBG ####[address] [phone] Body temperature 98.6 [degF] Normal [facility] Comment on above: Performed By: #### V ALLBG ####[place] [address] [place], [place] [phone] Calcium [Moles/Vol] 1.18 mmol/L Normal 1.08-1.30 [facility] Comment on above: Performed By: #### V ALLBG ####[place] [address] [address], [place] [phone] Carboxyhemoglobin, Ziyad 0.7 % Normal <2.1 [facility] Comment on above: Performed By: #### V ALLBG ####[place] [address] [place], [place] [phone] CO2 [Moles/Vol] 30 mmol/L High 25-29 [facility] Comment on above: Performed By: #### V ALLBG ####[place] [address] [address], [place] [phone] Glucose [Mass/Vol] 90 mg/dL Normal 60-105 [facility] Comment on above: Performed By: #### V ALLBG ####[place] [address] [address], [place] [phone] HCO3 (Bld) [Moles/Vol] 29 mmol/L High 24-28 [facility] Comment on above: Performed By: #### V ALLBG ####[place] [address] [place], [place] [phone] Hematocrit (Bld) [Volume fraction] 37.7 % Normal 36.0-46.0 [facility] Comment on above: Performed By: #### V ALLBG ####[place] [address] [place], [place] [phone] Hemoglobin (Bld) [Mass/Vol] 12.3 g/dL Normal 11.5-15.5 [facility] Comment on above: Performed By: #### V ALLBG ####[place] [address], [place] [phone] Lactate [Moles/Vol] 0.9 mmol/L Normal 0.5-2.2 [facility] Comment on above: Performed By: #### V ALLBG ####[place] [address], [place] [phone] Methemoglobin 1.5 % Normal <1.6 [facility] Comment on above: Performed By: #### V ALLBG ####[place] [address] [place] [phone] O2 Administered 100% Normal [facility] Comment on above: Performed By: #### V ALLBG ####[place] [address] [place] [phone] Oxyhemoglobin, Ziyad. 83 % Normal 60-85 [facility] Comment on above: Performed By: #### V ALLBG ####[place] [address] [place] [phone] pCO2 57 mm Hg High 42-55 [facility] Comment on above: Performed By: #### V ALLBG ####[place] [address] [place] [phone] pCO2, Temp Correct 57 mm Hg High 42-55 [facility] Comment on above: Performed By: #### V ALLBG ####[place] [address] [place] [phone] pH (Bld) 7.32 [pH] Normal 7.32-7.42 [facility] Comment on above: Performed By: #### V ALLBG ####[place] [address], [place] [phone] pH, Temp Corrected 7.32 Normal 7.32-7.42 [facility] Comment on above: Performed By: #### V ALLBG ####[place] [address], [place] [phone] pO2 54 mm Hg High 35-45 [facility] Comment on above: Performed By: #### V ALLBG ####[place] [address] [place], [place] [phone] pO2, Temp Corrected 54 mm Hg High 35-45 [facility] Comment on above: Performed By: #### V ALLBG ####[address] [phone] Potassium [Moles/Vol] 3.8 mmol/L Normal 3.5-5.0 [facility] Comment on above: Performed By: #### V ALLBG ####[place] [address] [place], [place] [phone] Sodium [Moles/Vol] 142 mmol/L Normal 136-144 [facility] Comment on above: Performed By: #### V ALLBG ####[address] [phone] Magnesiumon 04-28-2021 Magnesium [Mass/Vol] 2.0 mg/dL Normal 1.7-2.3 [facility] Comment on above: Performed By: #### P T, PTT, TRIG, CMP, CBC, MG1, PHOS ####[address] [phone] NURSING PROGon 04-28-2021 NURSING PROG HNO ID: [id number] Author: Laura Mullins, JOSE Service: ? Author Type: Registered Nurse Type: Nursing Progress Note Filed: 04/28/2021 8:01 PM Note Text: Nursing Progress: Topic: RESTRAINT NON-VIOLENT PATIENT NAME: Oscar Pineda PATIENT LOCATION: [place] [address] The patient demonstrates Attempting to Remove Medical [...] TIME: 8:01 PM Laura Mullins RN [facility] NURSING PROG HNO ID: [id number] Author: Rob Guerra RN Service: Radiology Author [...] April 28, 2021 TIME: 2:08 PM [facility] NURSING PROG HNO ID: [id number] Author: Yumiko Molina RN Service: ? Author Type: Registered Nurse Type: Nursing Progress Note Filed: 04/28/2021 2:57 PM Note Text: Nursing Progress Note Patient Name: Oscar Pineda Patient Location: [place] [address] 1200 IR at bedside, advised transfer to CT table while still in trendelenburg trial patient supine, still in trendelenburg. Tolerating [address], notified of positioning requirements 1345 [employer] SAL[employer], resident, two RT's, and two RN's at bedside for transport. Pt on telemetry/ continuous monitoring. CT and IR LIP notified. [address] imaging table, trendelenburg positioning maintained [address] and gave verbal OK to transition HOB flat then elevated (as tolerated) 1420 patient in SICU, HOB flat. Tolerating This note was completed by: Yumiko Molina [facility] NURSING PROG HNO ID: [id number] Author: Yumiko Molina RN Service: ? Author Type: Registered Nurse Type: Nursing Progress Note Filed: 04/28/2021 1:22 PM Note Text: Nursing Progress: Topic: RESTRAINT NON-VIOLENT PATIENT NAME: Oscar Pineda PATIENT LOCATION: G053 [id number]/[id number] The patient demonstrates Attempting to Remove Medical Devices Vital to Medical Stability as evidenced by the following behaviors attempting to remove medical review coordinator which pose an imminent danger to [...] RN Normal [facility] Phosphoruson 04-28-2021 Phosphate [Mass/Vol] 2.3 mg/dL Low 2.7-4.8 [facility] Comment on above: Performed By: #### P T, PTT, TRIG, CMP, CBC, MG1, PHOS ####[facility] [place], [place] [phone] Protimeon 04-28-2021 PT INR 1.0 Normal 0.9-1.3 [facility] Comment on above: Result Comment: Neha min K Antagonist (VKA) Therapeutic Range: INR 2 to 3 (Target INR of 2.5) Note: For patients treated with VKA drugs, such as warfarin, the [place] [employer] 2012 Guideline recommends [...] Chest 2012, 141:7S-47S Daphne PEDERSON et al. [facility] 2017, 70: 252-289 Performed By: #### P T, PTT, TRIG, CMP, CBC, MG1, PHOS ####[facility], [place] [phone] PT Sec 11.0 sec Normal 9.7-13.0 [facility] Comment on above: Performed By: #### P T, PTT, TRIG, CMP, CBC, MG1, PHOS ####[facility] [place], [place] [phone] Respiratory Cult/Stainon Respiratory Cult/Stain Sp. Request/Comment: - Specimen received in sterile container. Smear Result - Rare Mixed oral kaylynn Many Polymorphonuclear leukocytes Rare Epithelial cells Culture Result - Few Staphylococcus aureus --> ABNORMAL ALERT Insignificant colony count. No further workup. --> ABNORMAL ALERT Few Normal respiratory kaylynn present Critically abnormal [facility] Comment on above: Performed By: #### R CULST ####[address] [phone] Triglycerideon 04-28-2021 Fasting Time Unknown Normal [facility] Comment on above: Performed By: #### P T, PTT, TRIG, CMP, CBC, MG1, PHOS ####[place] [address] [place], [place] [phone] Triglyceride [Mass/Vol] 155 mg/dL High <150 [facility] Comment on above: Result Comment: <150 mg/dL, Normal 150-199 mg/dL, Borderline high 200-499 mg/dL, High >499 mg/dL, Very high Reference: 1. National Cholesterol Education Program ATP III Guideline At-A-Glance Quick Desk Reference: National Heart, Lung, and Blood [place]. National Institutes of Health. 2001: NIH Publication No. 01-3305. Performed By: #### P T, PTT, TRIG, CMP, CBC, MG1, PHOS ####[place] [address] [place], [place] [phone] Urinalysison 04-28-2021 Bilirubin, Urine Negative Normal Negative [facility] Comment on above: Performed By: #### U A ####[place] [address] [address] [phone] Clarity (U) Clear Normal Clear [facility] Comment on above: Performed By: #### U A ####[place] [phone] Color (U) Light Yellow Critically abnormal Yellow [facility] Comment on above: Performed By: #### U A ####[place] [phone] Comments SEE COMMENT Normal [facility] Comment on above: Result Comment: Micr oscopic not warranted Performed By: #### U A ####[place] [phone] Glucose Ql (U) Negative Normal Negative [facility] Comment on above: Performed By: #### U A ####[place] [phone] Hemoglobin/Blood,U r Negative Normal Negative [facility] Comment on above: Performed By: #### U A ####[place] [phone] Ketones Ql (U) 1+ Critically abnormal Negative [facility] Comment on above: Performed By: #### U A ####[place] [phone] Leukest Negative Normal Negative [facility] Comment on above: Performed By: #### U A ####[place] [address] [address] [place] [phone] Nitrite Ql (U) Negative Normal Negative [facility] Comment on above: Performed By: #### U A ####[place] [phone] pH (U) 5.0 [pH] Normal 5.0-8.0 [facility] Comment on above: Performed By: #### U A ####[place] [address], [place] [phone] Protein, Urine Negative Normal Negative [facility] Comment on above: Performed By: #### U A ####[place] [address] [place], [place] [phone] Specific [place], Ur 1.023 Normal 1.005-1.030 [facility] Comment on above: Performed By: #### U A ####[place] [address] [address], [place] [phone] Urine Karl Comment SEE COMMENT Normal [facility] Comment on above: Result Comment: N/A Performed By: #### U A ####[place] [address] [address], [place] [phone] Urobilinogen (U) [Mass/Vol] Negative Normal Negative [facility] Comment on above: Performed By: #### U A ####[place] [address] [address], [place] [phone] APTTon 04-27-2021 aPTT Coag (Bld) [Time] 21.9 s Low 23.0-32.4 [facility] Comment on above: Result Comment: Unfr actionated [...] laboratory APTT reagent in use throughout the [facility]. Performed By: #### P HOS, CMP, PTT, CBC, MG1, PT ####[place] [address] [place], [place] [phone] CBCon 10-09-2021 Absolute nRBC <0.01 Normal <0.01 [facility] Comment on above: Performed By: #### P HOS, CMP, PTT, CBC, MG1, PT ####[place] [address] [place] [phone] Erythrocyte distribution width (RBC) [Ratio] 11.9 % Normal 11.5-15.0 [facility] Comment on above: Performed By: #### P HOS, CMP, PTT, CBC, MG1, PT ####[address] [phone] Hematocrit (Bld) [Volume fraction] 39.3 % Normal 36.0-46.0 [facility] Comment on above: Performed By: #### P HOS, CMP, PTT, CBC, MG1, PT ####[place] [phone] Hemoglobin (Bld) [Mass/Vol] 13.3 g/dL Normal 11.5-15.5 [facility] Comment on above: Performed By: #### P HOS, CMP, PTT, CBC, MG1, PT ####[place] [phone] MCH 31.0 pG Normal 26.0-34.0 [facility] Comment on above: Performed By: #### P HOS, CMP, PTT, CBC, MG1, PT ####[address] [phone] MCHC (RBC) [Mass/Vol] 33.8 g/dL Normal 30.5-36.0 [facility] Comment on above: Performed By: #### P HOS, CMP, PTT, CBC, MG1, PT ####[place] [address] [place] [phone] MCV (RBC) [Entitic vol] 91.6 fL Normal 80.0-100.0 [facility] Comment on above: Performed By: #### P HOS, CMP, PTT, CBC, MG1, PT ####[place] [address], [place] [phone] Platelet mean volume (Bld) [Entitic vol] 9.8 fL Normal 9.0-12.7 [facility] Comment on above: Performed By: #### P HOS, CMP, PTT, CBC, MG1, PT ####[address], [place] [phone] Platelets (Bld) [#/Vol] 242 10*3/uL Normal 150-400 [facility] Comment on above: Performed By: #### P HOS, CMP, PTT, CBC, MG1, PT ####[address], [place] [phone] RBC (Bld) [#/Vol] 4.29 10*6/uL Normal 3.90-5.20 [facility] Comment on above: Performed By: #### P HOS, CMP, PTT, CBC, MG1, PT ####[address] [phone] WBC (Bld) [#/Vol] 17.39 10*3/uL High 3.70-11.00 [facility] Comment on above: Performed By: #### P HOS, CMP, PTT, CBC, MG1, PT ####[address] [phone] Comp Metabolic Panelon 04-27 Albumin [Mass/Vol] 3.9 g/dL Normal 3.9-4.9 [facility] Comment on above: Performed By: #### P HOS, CMP, PTT, CBC, MG1, PT ####[address], [place] [phone] ALP [Catalytic activity/Vol] 41 U/L Normal 34-123 [facility] Comment on above: Performed By: #### P HOS, CMP, PTT, CBC, MG1, PT ####[facility], [place] [phone] ALT [Catalytic activity/Vol] 26 U/L Normal 7-38 [facility] Comment on above: Performed By: #### P HOS, CMP, PTT, CBC, MG1, PT ####[place] [address], [place] [phone] Anion gap [Moles/Vol] 10 mmol/L Normal 9-18 [facility] Comment on above: Performed By: #### P HOS, CMP, PTT, CBC, MG1, PT ####[place] [address], [place] [phone] AST [Catalytic activity/Vol] 63 U/L High 13-35 [facility] Comment on above: Performed By: #### P HOS, CMP, PTT, CBC, MG1, PT ####[place] [address], [place] [phone] Bilirubin [Mass/Vol] 0.5 mg/dL Normal 0.2-1.3 [facility] Comment on above: Performed By: #### P HOS, CMP, PTT, CBC, MG1, PT ####[place] [address], [place] [phone] Calcium [Mass/Vol] 8.6 mg/dL Normal 8.5-10.2 [facility] Comment on above: Performed By: #### P HOS, CMP, PTT, CBC, MG1, PT ####[place] [address], [place] [phone] Chloride [Moles/Vol] 109 mmol/L High 97-105 [facility] Comment on above: Performed By: #### P HOS, CMP, PTT, CBC, MG1, PT ####[place] [address], [place] [phone] CO2 [Moles/Vol] 23 mmol/L Normal 22-30 [facility] Comment on above: Performed By: #### P HOS, CMP, PTT, CBC, MG1, PT ####[facility] [place] [address] [phone] Creatinine [Mass/Vol] 0.76 mg/dL Normal 0.58-0.96 [facility] Comment on above: Performed By: #### P HOS, CMP, PTT, CBC, MG1, PT ####[address] [phone] eGFR- Amer. >60 Normal [facility] Comment on above: Performed By: #### P HOS, CMP, PTT, CBC, MG1, PT ####[address] [phone] eGFR-All Other Races >60 Normal [facility] Comment on above: Result Comment: eGFR (Estimated [...] P HOS, CMP, PTT, CBC, MG1, PT ####[address] [phone] Glucose [Mass/Vol] 119 mg/dL High 74-99 [facility] Comment on above: Result Comment: The [place] [employer] (ADA) provides guidance for cutoff [...] Standards of Medical Care in Diabetes 2016, [place] [employer]. Diabetes Care. 2016.39(Suppl 1). Performed By: #### P HOS, CMP, PTT, CBC, MG1, PT ####[place] [address] [address], [place] [phone] Potassium [Moles/Vol] 4.0 mmol/L Normal 3.7-5.1 [facility] Comment on above: Performed By: #### P HOS, CMP, PTT, CBC, MG1, PT ####[address] [phone] Protein [Mass/Vol] 5.9 g/dL Low 6.3-8.0 [facility] Comment on above: Performed By: #### P HOS, CMP, PTT, CBC, MG1, PT ####[address] [phone] Sodium [Moles/Vol] 142 mmol/L Normal 136-144 [facility] Comment on above: Performed By: #### P HOS, CMP, PTT, CBC, MG1, PT ####[address] [phone] Urea nitrogen [Mass/Vol] 13 mg/dL Normal 7-21 [facility] Comment on above: Performed By: #### P HOS, CMP, PTT, CBC, MG1, PT ####[address] [phone] GASV + ALLon 04-27-2021 Base Excess 1 mmol/L Normal [facility] Comment on above: Performed By: #### V ALLBG ####[address] [phone] Blood Gas Comm, Ziyad . Normal [facility] Comment on above: Performed By: #### V ALLBG ####[facility]CR[address], [place] [phone] Body temperature 98.6 [degF] Normal [facility] Comment on above: Performed By: #### V ALLBG ####[facility] [place] [phone] Calcium [Moles/Vol] 1.21 mmol/L Normal 1.08-1.30 [facility] Comment on above: Performed By: #### V ALLBG ####[place] [address] [place] [phone] Carboxyhemoglobin, Ziyad 0.7 % Normal <2.1 [facility] Comment on above: Performed By: #### V ALLBG ####[place] [address] [place] [phone] CO2 [Moles/Vol] 29 mmol/L Normal 25-29 [facility] Comment on above: Performed By: #### V ALLBG ####[place] [address] [place] [phone] Glucose [Mass/Vol] 97 mg/dL Normal 60-105 [facility] Comment on above: Performed By: #### V ALLBG ####[place] [address] [place] [phone] HCO3 (Bld) [Moles/Vol] 27 mmol/L Normal 24-28 [facility] Comment on above: Performed By: #### V ALLBG ####[facility] [place] [phone] Hematocrit (Bld) [Volume fraction] 38.2 % Normal 36.0-46.0 [facility] Comment on above: Performed By: #### V ALLBG ####[place] [phone] [place] [phone] Hemoglobin (Bld) [Mass/Vol] 12.4 g/dL Normal 11.5-15.5 [facility] Comment on above: Performed By: #### V ALLBG ####[place] [address] [place] [phone] Lactate [Moles/Vol] 1.1 mmol/L Normal 0.5-2.2 [facility] Comment on above: Performed By: #### V ALLBG ####[place] [address] [place] [phone] Methemoglobin 0.7 % Normal <1.6 [facility] Comment on above: Performed By: #### V ALLBG ####[place] [address] [place] [phone] O2 Administered 100% Normal [facility] Comment on above: Performed By: #### V ALLBG ####[place] [address] [place] [phone] Oxyhemoglobin, Ziyad. 92 % High 60-85 [facility] Comment on above: Performed By: #### V ALLBG ####[place] [address] [place] [phone] pCO2 53 mm Hg Normal 42-55 [facility] Comment on above: Performed By: #### V ALLBG ####[place] [address] [place] [phone] pCO2, Temp Correct 53 mm Hg Normal 42-55 [facility] Comment on above: Performed By: #### V ALLBG ####[place] [address] [place] [phone] pH (Bld) 7.33 [pH] Normal 7.32-7.42 [facility] Comment on above: Performed By: #### V ALLBG ####[place] [address] [address], [place] [phone] pH, Temp Corrected 7.33 Normal 7.32-7.42 [facility] Comment on above: Performed By: #### V ALLBG ####[facility] [place] [phone] pO2 70 mm Hg High 35-45 [facility] Comment on above: Performed By: #### V ALLBG ####[facility]CRaw[address], [place] [phone] pO2, Temp Corrected 70 mm Hg High 35-45 [facility] Comment on above: Performed By: #### V ALLBG ####[place] [address] [place] [phone] Potassium [Moles/Vol] 3.9 mmol/L Normal 3.5-5.0 [facility] Comment on above: Performed By: #### V ALLBG ####[place] [address] [address] [phone] Sodium [Moles/Vol] 143 mmol/L Normal 136-144 [facility] Comment on above: Performed By: #### V ALLBG ####[place] [address] [address] [phone] Base Excess 0 mmol/L Normal [facility] Comment on above: Performed By: #### V ALLBG ####[place] [address] AveCRawlings, [place] [phone] Blood Gas Comm, Ziyad . Normal [facility] Comment on above: Performed By: #### V ALLBG ####[facility]CR[address], [place] [phone] Body temperature 98.6 [degF] Normal [facility] Comment on above: Performed By: #### V ALLBG ####[place] [address]CRawlings, [place] [phone] Calcium [Moles/Vol] 1.22 mmol/L Normal 1.08-1.30 [facility] Comment on above: Performed By: #### V ALLBG ####[facility] [phone] Carboxyhemoglobin, Ziyad 0.6 % Normal <2.1 [facility] Comment on above: Performed By: #### V ALLBG ####[place] [address] [address] [phone] CO2 [Moles/Vol] 27 mmol/L Normal 25-29 [facility] Comment on above: Performed By: #### V ALLBG ####[place] [address] [phone] Glucose [Mass/Vol] 130 mg/dL High 60-105 [facility] Comment on above: Performed By: #### V ALLBG ####[place] [address] [address] [phone] HCO3 (Bld) [Moles/Vol] 26 mmol/L Normal 24-28 [facility] Comment on above: Performed By: #### V ALLBG ####[place] [address] [address] [place] [phone] Hematocrit (Bld) [Volume fraction] 42.7 % Normal 36.0-46.0 [facility] Comment on above: Performed By: #### V ALLBG ####[place] [address] [address] [phone] Hemoglobin (Bld) [Mass/Vol] 13.9 g/dL Normal 11.5-15.5 [facility] Comment on above: Performed By: #### V ALLBG ####[place] [address] [place] [phone] Lactate [Moles/Vol] 1.3 mmol/L Normal 0.5-2.2 [facility] Comment on above: Performed By: #### V ALLBG ####[place] [address] [phone] Methemoglobin 1.1 % Normal <1.6 [facility] Comment on above: Performed By: #### V ALLBG ####[place] [address] [phone] O2 Administered 100% Normal [facility] Comment on above: Performed By: #### V ALLBG ####[place] [phone] Oxyhemoglobin, Ziyad. 88 % High 60-85 [facility] Comment on above: Performed By: #### V ALLBG ####[place] [address] [place] [phone] pCO2 49 mm Hg Normal 42-55 [facility] Comment on above: Performed By: #### V ALLBG ####[address] [phone] pCO2, Temp Correct 49 mm Hg Normal 42-55 [facility] Comment on above: Performed By: #### V ALLBG ####[place] [address] [address] [place] [phone] pH (Bld) 7.34 [pH] Normal 7.32-7.42 [facility] Comment on above: Performed By: #### V ALLBG ####[place] [address] [phone] pH, Temp Corrected 7.34 Normal 7.32-7.42 [facility] Comment on above: Performed By: #### V ALLBG ####[place] [address] [place] [phone] pO2 64 mm Hg High 35-45 [facility] Comment on above: Performed By: #### V ALLBG ####[place] [address] [place] [phone] pO2, Temp Corrected 64 mm Hg High 35-45 [facility] Comment on above: Performed By: #### V ALLBG ####[place] [address] [place], [place] [phone] Potassium [Moles/Vol] 4.1 mmol/L Normal 3.5-5.0 [facility] Comment on above: Performed By: #### V ALLBG ####[address] [phone] Sodium [Moles/Vol] 142 mmol/L Normal 136-144 [facility] Comment on above: Performed By: #### V ALLBG ####[address] [phone] Magnesiumon 04-27-2021 Magnesium [Mass/Vol] 2.2 mg/dL Normal 1.7-2.3 [facility] Comment on above: Performed By: #### P HOS, CMP, PTT, CBC, MG1, PT ####[address] [phone] NURSING PROGon 04-27-2021 NURSING PROG HNO ID: [id number] Author: Jack Richards RN Service: Nursing Author Type: Registered Nurse Type: Nursing Progress Note Filed: 04/27/2021 10:46 PM Note Text: Nursing Progress: Topic: RESTRAINT NON-VIOLENT PATIENT NAME: Oscar Pineda PATIENT LOCATION: [place] [address] The patient demonstrates Lack of Understanding/Ability to [...] TIME: 10:00 PM Jack Richards RN [facility] NURSING PROG HNO ID: [id number] Author: Karsten Goldsmith RN Service: Nursing Author Type: Registered Nurse Type: Nursing Progress Note Filed: 04/27/2021 8:51 AM Note Text: Nursing Progress: Topic: RESTRAINT NON-VIOLENT PATIENT NAME: Oscar Pineda PATIENT LOCATION: [place] [address] The patient demonstrates Lack of Understanding/Ability to [...] RN Normal [facility] Phosphoruson 04-27-2021 Phosphate [Mass/Vol] 3.3 mg/dL Normal 2.7-4.8 [facility] Comment on above: Performed By: #### P HOS, CMP, PTT, CBC, MG1, PT ####[facility] [address] [place], [place] [phone] Protimeon 04-27-2021 PT INR 1.1 Normal 0.9-1.3 [facility] Comment on above: Result Comment: Neha min K Antagonist (VKA) Therapeutic Range: INR 2 to 3 (Target INR of 2.5) Note: For patients treated with VKA drugs, such as warfarin, the [place] [employer] 2012 Guideline recommends [...] Chest 2012, 141:7S-47S Daphne RA, et al. [facility] 2017, 70: 252-289 Performed By: #### P HOS, CMP, PTT, CBC, MG1, PT ####[facility], [place] [phone] PT Sec 11.2 sec Normal 9.7-13.0 [facility] Comment on above: Performed By: #### P HOS, CMP, PTT, CBC, MG1, PT ####[facility] [address]Marl[place], [place] [phone] US ABDOMEN LTDon 04-27-2021 US ABDOMEN LTD * * *Final Report* * * DATE OF EXAM: Apr 27 2021 12:24PM [facility] - US ABDOMEN LTD / PROCEDURE [...] within the hepatic veins or visualized IVC. Mix Technician: PSCB Transcribe Date/Time: Apr 27 2021 12:34P Dictated by : POONAM BLUM MD This examination was interpreted and the report reviewed and electronically signed by: ALICIA MENDOZA MD on Apr 27 2021 2:57PM EST [id number] Normal [facility] XR CHEST 1V FRONTALon 2020 XR CHEST [...] cardiomediastinal silhouette. Other: . IMPRESSION: See result. Mix Technician: PSCB Transcribe Date/Time: Apr 27 2021 10:29A Dictated by : TAYLOR CORONA MD This examination was interpreted and the report reviewed and electronically signed by: TAYLOR CORONA MD on Apr 27 2021 10:31AM EST [id number] Normal [facility] ANES Sachin 04-26-2021 ANES POST HNO ID: [id number] Author: Tamara Brown DO Service: Anesthesiology Author [...] 26, 2021 TIME: 2:26 PM PAGER/CONTACT #: [phone] Normal [facility] APTTon 04-26-2021 aPTT Coag (Bld) [Time] 22.2 s Low 23.0-32.4 [facility] Comment on above: Result Comment: Unfr actionated [...] laboratory APTT reagent in use throughout the [facility]. Performed By: #### C BC, MG1, PT, PTT, BMP, PHOS ####[facility] [address] [place], [place] [phone] BRIEF OP NOTon 04-26-2021 BRIEF OP NOT HNO ID: [id number] Author: Kayce Wagner MD Service: Radiology Author Type: Physician Type: Brief Op Note Filed: 04/26/2021 3:28 PM Note Text: BRIEF OPERATIVE / PROCEDURE NOTE LOG ID: [id number] SURGERY/PROCEDURE DATE: 04/26/2021 INCISION/PROCEDURE START TIME: 9:25 AM INCISION CLOSE/PROCEDURE END TIME: 11:20 AM SURGEON(S)/PROCEDURALIS T(S) AND KEEL PRESS OPERATOR(S): Surgeon(s) and Role: * Kayce Wagner MD [...] DATE: April 26, 2021 TIME: 2:59 PM [phone] Normal [facility] Basic Metabolic Panlon 04-26 Anion gap [Moles/Vol] 11 mmol/L Normal 9-18 [facility] Comment on above: Performed By: #### C BC, MG1, PT, PTT, BMP, PHOS ####[facility] [address], [place] [phone] Calcium [Mass/Vol] 8.3 mg/dL Low 8.5-10.2 [facility] Comment on above: Performed By: #### C BC, MG1, PT, PTT, BMP, PHOS ####[place] [phone] Chloride [Moles/Vol] 107 mmol/L High 97-105 [facility] Comment on above: Performed By: #### C BC, MG1, PT, PTT, BMP, PHOS ####[place] [phone] CO2 [Moles/Vol] 22 mmol/L Normal 22-30 [facility] Comment on above: Performed By: #### C BC, MG1, PT, PTT, BMP, PHOS ####[place] [phone] Creatinine [Mass/Vol] 0.74 mg/dL Normal 0.58-0.96 [facility] Comment on above: Performed By: #### C BC, MG1, PT, PTT, BMP, PHOS ####[place] [phone] eGFR- Amer. >60 Normal [facility] Comment on above: Performed By: #### C BC, MG1, PT, PTT, BMP, PHOS ####[address] [phone] eGFR-All Other Races >60 Normal [facility] Comment on above: Result Comment: eGFR (Estimated [...] C BC, MG1, PT, PTT, BMP, PHOS ####[place] [phone] Glucose [Mass/Vol] 178 mg/dL High 74-99 [facility] Comment on above: Result Comment: The [place] [employer] (ADA) provides guidance for cutoff [...] Standards of Medical Care in Diabetes 2016, [place] [employer]. Diabetes Care. 2016.39(Suppl 1). Performed By: #### C BC, MG1, PT, PTT, BMP, PHOS ####[address] [phone] Potassium [Moles/Vol] 4.1 mmol/L Normal 3.7-5.1 [facility] Comment on above: Performed By: #### C BC, MG1, PT, PTT, BMP, PHOS ####[address] [phone] Sodium [Moles/Vol] 140 mmol/L Normal 136-144 [facility] Comment on above: Performed By: #### C BC, MG1, PT, PTT, BMP, PHOS ####[address] [phone] Urea nitrogen [Mass/Vol] 14 mg/dL Normal 7-21 [facility] Comment on above: Performed By: #### C BC, MG1, PT, PTT, BMP, PHOS ####[address] [phone] CBCon 04-26-2021 Absolute nRBC <0.01 Normal <0.01 [facility] Comment on above: Performed By: #### C BC, MG1, PT, PTT, BMP, PHOS ####[place] [address] [place] [phone] Erythrocyte distribution width (RBC) [Ratio] 11.9 % Normal 11.5-15.0 [facility] Comment on above: Performed By: #### C BC, MG1, PT, PTT, BMP, PHOS ####[place] [address] [place] [phone] Hematocrit (Bld) [Volume fraction] 38.5 % Normal 36.0-46.0 [facility] Comment on above: Performed By: #### C BC, MG1, PT, PTT, BMP, PHOS ####[place] [address] [place] [phone] Hemoglobin (Bld) [Mass/Vol] 13.2 g/dL Normal 11.5-15.5 [facility] Comment on above: Performed By: #### C BC, MG1, PT, PTT, BMP, PHOS ####[place] [address] [place] [phone] MCH 31.7 pG Normal 26.0-34.0 [facility] Comment on above: Performed By: #### C BC, MG1, PT, PTT, BMP, PHOS ####[place] [address] [place] [phone] MCHC (RBC) [Mass/Vol] 34.3 g/dL Normal 30.5-36.0 [facility] Comment on above: Performed By: #### C BC, MG1, PT, PTT, BMP, PHOS ####[place] [address] [place] [phone] MCV (RBC) [Entitic vol] 92.3 fL Normal 80.0-100.0 [facility] Comment on above: Performed By: #### C BC, MG1, PT, PTT, BMP, PHOS ####[place] [address] [address], [place] [phone] Platelet mean volume (Bld) [Entitic vol] 9.6 fL Normal 9.0-12.7 [facility] Comment on above: Performed By: #### C BC, MG1, PT, PTT, BMP, PHOS ####[facility] [place], [place] [phone] Platelets (Bld) [#/Vol] 227 10*3/uL Normal 150-400 [facility] Comment on above: Performed By: #### C BC, MG1, PT, PTT, BMP, PHOS ####[place] [address] [place], [place] [phone] RBC (Bld) [#/Vol] 4.17 10*6/uL Normal 3.90-5.20 [facility] Comment on above: Performed By: #### C BC, MG1, PT, PTT, BMP, PHOS ####[place] [address] [place], [place] [phone] WBC (Bld) [#/Vol] 17.98 10*3/uL High 3.70-11.00 [facility] Comment on above: Performed By: #### C BC, MG1, PT, PTT, BMP, PHOS ####[place] [address] [place], [place] [phone] CONSULTon 04-26-2021 CONSULT HNO ID: [id number] Author: Jose M Cedillo MD Service: Interventional [...] included)... Normal [facility] CONSULT HNO ID: [id number] Author: Oneida Ruano MD Service: Cardiovascular Medicine Author Type: Physician Type: Consults Filed: 04/27/2021 2:36 PM Note Text: [facility]IC[facility] CONSULT NOTE Oscar Pineda [id number] CONSULTING SERVICE: SICU DATE OF ADMISSION: 04/26/2021 [...] included)... Normal [facility] CT ABLATION MSK NOT BONE ALDO ORon 04-26-2021 CT ABLATION MSK NOT BONE TUMOR * * *Final Report* * * * * * SEE BOTTOM OF REPORT FOR ADDENDED TEXT * * * DATE OF EXAM: Apr 26 2021 11:24AM [facility] [place] ABLATION MSK NOT BONE TUMOR / PROCEDURE REASON: R19.86-[id number] and pelvic swelling, mass and lump, unspecified [...] included)... Normal [facility] CT BRAIN WO IVCONon 04-26-[address] BRAIN WO IVCON * * *Final Report* * * DATE OF EXAM: Apr 26 2021 1:45PM [facility] [place] BRAIN WO IVCON [...] reduction techniques were required COMPARISON: None. RESULT: Process Eng (topogram) images: Endotracheal tube. Post-operative change: None. [...] Portable head CT demonstrating no acute findings. Mix Technician: ANEL Transcribe Date/Time: Apr 26 2021 1:56P Dictated by : MARIA L SCHMIDT MD This examination was interpreted and the report reviewed and electronically signed by: MARIA L SCHMIDT MD on Apr 26 2021 1:58PM EST [id number] Normal [facility] Confirm Blood Typeon 021 ABO/RH(D) Positive Normal [facility] Comment on above: Performed By: #### C ONABO ####[address] [phone] Performed By: #### T SCR ####[address] [phone] Expedited [id number] 04-26-20 21 SARS-CoV-2 (COVID-19) RNA ROX+probe Ql (Unsp spec) UPPER RESPIRATORY TRACT SWAB Normal [facility] Comment on above: Performed By: #### E XCOVD ####[address] [phone] SARS-CoV-2 (COVID-19) RNA ROX+probe Ql (Unsp spec) Negative for COVID19 (SARS CoV2) by RT-PCR or equivalent method. Normal Negative for COVID19 (SARS CoV2) by RT-PCR or equivalent method. [facility] Comment on above: Result Comment: This test has been authorized by FDA under an Emergency Use Authorization (EUA). Test performed by [facility], [facility] [place], [address] [place], [place] [address]. Performed By: #### E XCOVD ####[place] [address], [place] [phone] GASV + ALLon 04-26-2021 Base Excess Negative Normal [facility] Comment on above: Performed By: #### V ALLBG ####[address] [phone] Blood Gas Comm, Ziyad .VENOUS Normal [facility] Comment on above: Performed By: #### V ALLBG ####[address] [phone] Body temperature 98.6 [degF] Normal [facility] Comment on above: Performed By: #### V ALLBG ####[place] [phone] Calcium [Moles/Vol] 1.23 mmol/L Normal 1.08-1.30 [facility] Comment on above: Performed By: #### V ALLBG ####[place] [phone] Carboxyhemoglobin, Ziyad 0.9 % Normal <2.1 [facility] Comment on above: Performed By: #### V ALLBG ####[place] [phone] CO2 [Moles/Vol] 27 mmol/L Normal 25-29 [facility] Comment on above: Performed By: #### V ALLBG ####[place] [address] [address], [place] [phone] Glucose [Mass/Vol] 144 mg/dL High 60-105 [facility] Comment on above: Performed By: #### V ALLBG ####[place] [address] [address], [place] [phone] HCO3 (Bld) [Moles/Vol] 25 mmol/L Normal 24-28 [facility] Comment on above: Performed By: #### V ALLBG ####[place] [address] [place] [phone] Hematocrit (Bld) [Volume fraction] 43.2 % Normal 36.0-46.0 [facility] Comment on above: Performed By: #### V ALLBG ####[place] [address] [address] [place] [phone] Hemoglobin (Bld) [Mass/Vol] 14.1 g/dL Normal 11.5-15.5 [facility] Comment on above: Performed By: #### V ALLBG ####[address] [place] [phone] Lactate [Moles/Vol] 2.0 mmol/L Normal 0.5-2.2 [facility] Comment on above: Performed By: #### V ALLBG ####[place] [address] [place] [phone] Methemoglobin 0.7 % Normal <1.6 [facility] Comment on above: Performed By: #### V ALLBG ####[place] [phone] O2 Administered 100% Normal [facility] Comment on above: Performed By: #### V ALLBG ####[place] [address] [place] [phone] Oxyhemoglobin, Ziyad. 81 % Normal 60-85 [facility] Comment on above: Performed By: #### V ALLBG ####[place] [address] [place] [phone] pCO2 53 mm Hg Normal 42-55 [facility] Comment on above: Performed By: #### V ALLBG ####[place] [address] [place] [phone] pCO2, Temp Correct 53 mm Hg Normal 42-55 [facility] Comment on above: Performed By: #### V ALLBG ####[place] [address], [place] [phone] pH (Bld) 7.30 [pH] Low 7.32-7.42 [facility] Comment on above: Performed By: #### V ALLBG ####[place] [address] [place] [phone] pH, Temp Corrected 7.30 Low 7.32-7.42 [facility] Comment on above: Performed By: #### V ALLBG ####[place] [address] [place] [phone] pO2 52 mm Hg High 35-45 [facility] Comment on above: Performed By: #### V ALLBG ####[place] [address] [place] [phone] pO2, Temp Corrected 52 mm Hg High 35-45 [facility] Comment on above: Performed By: #### V ALLBG ####[place] [address] [address] [place] [phone] Potassium [Moles/Vol] 4.4 mmol/L Normal 3.5-5.0 [facility] Comment on above: Performed By: #### V ALLBG ####[place] [address] [place] [phone] Sodium [Moles/Vol] 142 mmol/L Normal 136-144 [facility] Comment on above: Performed By: #### V ALLBG ####[place] [address] [place] [phone] Base Excess Negative Normal [facility] Comment on above: Performed By: #### V ALLBG ####[place] [address] [address], [place] [phone] Blood Gas Comm, Ziyad .VENOUS Normal [facility] Comment on above: Performed By: #### V ALLBG ####[facility]CR[address], [place] [phone] Body temperature 98.6 [degF] Normal [facility] Comment on above: Performed By: #### V ALLBG ####[place] [address] [place] [phone] Calcium [Moles/Vol] 1.25 mmol/L Normal 1.08-1.30 [facility] Comment on above: Performed By: #### V ALLBG ####[place] [address] [place] [phone] Carboxyhemoglobin, Ziyad 0.5 % Normal <2.1 [facility] Comment on above: Performed By: #### V ALLBG ####[place] [address] [place] [phone] CO2 [Moles/Vol] 25 mmol/L Normal 25-29 [facility] Comment on above: Performed By: #### V ALLBG ####[place] [address] [place] [phone] Glucose [Mass/Vol] 172 mg/dL High 60-105 [facility] Comment on above: Performed By: #### V ALLBG ####[place] [address] [place] [phone] HCO3 (Bld) [Moles/Vol] 24 mmol/L Normal 24-28 [facility] Comment on above: Performed By: #### V ALLBG ####[place] [address] [place] [phone] Hematocrit (Bld) [Volume fraction] 44.2 % Normal 36.0-46.0 [facility] Comment on above: Performed By: #### V ALLBG ####[place] [address] [place] [phone] Hemoglobin (Bld) [Mass/Vol] 14.4 g/dL Normal 11.5-15.5 [facility] Comment on above: Performed By: #### V ALLBG ####[place] [address] [place] [phone] Lactate [Moles/Vol] 2.4 mmol/L High 0.5-2.2 [facility] Comment on above: Performed By: #### V ALLBG ####[place] [address] [place] [phone] Methemoglobin 1.2 % Normal <1.6 [facility] Comment on above: Performed By: #### V ALLBG ####[place] [phone] O2 Administered 100% Normal [facility] Comment on above: Performed By: #### V ALLBG ####[place] [address] [address] [place] [phone] Oxyhemoglobin, Ziyad. 98 % High 60-85 [facility] Comment on above: Performed By: #### V ALLBG ####[place] [address] [place] [phone] pCO2 46 mm Hg Normal 42-55 [facility] Comment on above: Performed By: #### V ALLBG ####[place] [address] [place] [phone] pCO2, Temp Correct 46 mm Hg Normal 42-55 [facility] Comment on above: Performed By: #### V ALLBG ####[place] [address] [place] [phone] pH (Bld) 7.33 [pH] Normal 7.32-7.42 [facility] Comment on above: Performed By: #### V ALLBG ####[place] [address] [place] [phone] pH, Temp Corrected 7.33 Normal 7.32-7.42 [facility] Comment on above: Performed By: #### V ALLBG ####[facility] [address] [place], [place] [phone] pO2 246 mm Hg High 35-45 [facility] Comment on above: Performed By: #### V ALLBG ####[facility] [place], [place] [phone] pO2, Temp Corrected 246 mm Hg High 35-45 [facility] Comment on above: Performed By: #### V ALLBG ####[place] [id number] [place], [place] [phone] Potassium [Moles/Vol] 4.4 mmol/L Normal 3.5-5.0 [facility] Comment on above: Performed By: #### V ALLBG ####[facility] [place], [place] [phone] Sodium [Moles/Vol] 143 mmol/L Normal 136-144 [facility] Comment on above: Performed By: #### V ALLBG ####[place] [id number] [place], [place] [phone] HISTORY PHYSICALon HISTORY PHYSICAL HNO ID: [id number] Author: Kayce Wagner MD Service: Radiology Author [...] PM Normal [facility] Magnesiumon 04-26-2021 Magnesium [Mass/Vol] 1.9 mg/dL Normal 1.7-2.3 [facility] Comment on above: Performed By: #### C BC, MG1, PT, PTT, BMP, PHOS ####[facility] [address] [place], [place] [phone] NURSING PROGon 04-26-2021 NURSING PROG HNO ID: [id number] Author: Jack Richards RN Service: Nursing Author Type: Registered Nurse Type: Nursing Progress Note Filed: 04/26/2021 9:21 PM Note Text: Nursing Progress: Topic: RESTRAINT NON-VIOLENT PATIENT NAME: Oscar Pineda PATIENT LOCATION: [place] [address]/[facility] The patient demonstrates Lack of Understanding/Ability [...] RN Normal [facility] NURSING PROG HNO ID: [id number] Author: Karsten Goldsmith RN Service: Nursing Author Type: Registered Nurse Type: Nursing Progress Note Filed: 04/26/2021 6:59 PM Note Text: Nursing Progress: Topic: RESTRAINT NON-VIOLENT PATIENT NAME: Oscar Pineda PATIENT LOCATION: [place] [address]/[facility] The patient demonstrates Lack of Understanding/Ability [...] RN Normal [facility] PT EDon 04-26-2021 PT ED HNO ID: [id number] Author: Agnes Schaefer RN Service: Interventional Radiology [...] None Normal [facility] Phosphoruson 04-26-2021 Phosphate [Mass/Vol] 3.1 mg/dL Normal 2.7-4.8 [facility] Comment on above: Performed By: #### C BC, MG1, PT, PTT, BMP, PHOS ####[facility] [address] [place], [place] [phone] Protimeon 04-26-2021 PT INR 1.1 Normal 0.9-1.3 [facility] Comment on above: Result Comment: Neha min K Antagonist (VKA) Therapeutic Range: INR 2 to 3 (Target INR of 2.5) Note: For patients treated with VKA drugs, such as warfarin, the [employer] 2012 Guideline recommends [...] Chest 2012, 141:7S-47S Daphne PEDERSON et al. [facility] 2017, 70: 252-289 Performed By: #### C BC, MG1, PT, PTT, BMP, PHOS ####[address] [phone] PT Sec 11.9 sec Normal 9.7-13.0 [facility] Comment on above: Performed By: #### C BC, MG1, PT, PTT, BMP, PHOS ####[place] [id number] [place], [place] [phone] Staph aureus PCRon 1 MRSA PCR Negative Normal [facility] Comment on above: Performed By: #### S APCR ####[place] [id number] [place], [place] [phone] S aureus Spec Source Nasal Normal [facility] Comment on above: Performed By: #### S APCR ####[address] [phone] Staph aureus PCR Negative Normal [facility] Comment on above: Performed By: #### S APCR ####[address] [phone] XR ABDOMEN 1V SUPINEon 04-26 XR ABDOMEN [...] loops of bowel. No focal bony abnormality. Mix Technician: [facility] Transcribe Date/Time: Apr 26 2021 2:53P Dictated by : RAMIN BROWNLEE MD This examination was interpreted and the report reviewed and electronically signed by: RAMIN BROWNLEE MD on Apr 26 2021 3:05PM EST [id number] Normal [facility] XR CHEST 1V FRONTAL PORTon 1 XR [...] No acute process identified. IMPRESSION: See result. Mix Technician: [facility] Transcribe Date/Time: Apr 26 2021 6:05P Dictated by : JASON LOWE MD This examination was interpreted and the report reviewed and electronically signed by: JASON LOWE MD on Apr 26 2021 6:07PM EST [id number] Normal [facility] XR CHEST 1V FRONTAL PORT * * [...] No acute process identified. IMPRESSION: See result. Mix Technician: [facility] Transcribe Date/Time: Apr 26 2021 3:57P Dictated by : JASON LOWE MD This examination was interpreted and the report reviewed and electronically signed by: JASON LOWE MD on Apr 26 2021 3:58PM EST [id number] Normal [facility] NURSING PROGon 04-24-2021 NURSING PROG HNO ID: [id number] Author: Shereen Kwok LPN Service: ? Author Type: LICENSED NURSE Type: Nursing Progress Note Filed: 04/24/2021 2:42 PM Note Text: Pre-procedure instructions: Contacted patient and confirmed appt. for Cryoablation scheduled on 04/26/21, at [facility]. Diet: Do not eat solid food after [...] signed. Arrival at 6:30am to desk QB-1 ([facility]) and check in for your procedure. Jewel Stripper/Transportation: How will you be arriving for your procedure? Private car. If you will be arriving at [facility] via ambulance or public transportation, please call to discuss. You will need a responsible adult to accompany you to and from the procedure. Your stacker driver is required to stay with you until you are taken into the Procedure room. [facility] is currently restricting visitors to two visitors per patient. No visitor under the age of 16. You and your visitor will be screened for temperature and COVID-19 symptoms upon entry to the hospital, and a wristband will be applied when cleared. If you develop any of the following symptoms before your procedure, please call [phone]. Chills, joint pain, rash, sore throat, cough, [...] No Written instructions provided to patient via [employer] If you have any questions please call [phone] Normal [facility] MRI ABDOMEN WO/W IVCONon [facility] Vital Signs Date Time Vital Sign Value Performing Clinician Facility 10-10-2022 10:00-0400 Body height 161.29 cm Shaun Valentine Other [facility] Other 10-10-2022 10:00-0400 Body mass index (BMI) [Ratio] 23.08 kg/m2 Shaun Valentine Other [facility] Other 10-10-2022 10:00-0400 Body weight 60.06 kg Shaun Ball Other [facility] Other 10-10-2022 10:00-0400 Diastolic blood pressure 76 mm[Hg] Shaun Ball Other [facility] Other 10-10-2022 10:00-0400 Respiratory rate 12 /min Shaun Ball Other [facility] Other 10-10-2022 10:00-0400 Systolic blood pressure 110 mm[Hg] Shaun Ball Other [facility] Other 04-28-2022 15:46-0400 Body temperature 99.5 [degF] Melani Russell MD Work Phone: [facility] 04-28-2022 15:46-0400 Body weight 76.39 kg Melani Russell MD Work Phone: [facility] 04-28-2022 15:46-0400 Diastolic blood pressure 76 mm[Hg] Melani Russell MD Work Phone: [facility] 04-28-2022 15:46-0400 Heart rate 71 /min Melani Russell MD Work Phone: [facility] 04-28-2022 15:46-0400 Respiratory rate 20 /min Melani Russell MD Work Phone: [facility] 04-28-2022 15:46-0400 SaO2% (BldA) [Mass fraction] 97 % Melani Russell MD Work Phone: [facility] 04-28-2022 15:46-0400 Systolic blood pressure 131 mm[Hg] Melani Russell MD Work Phone: [facility] Encounters Encounter Date Encounter Type Care [...] examination without abnormal findings DR SHAUN VALENTINE [facility] Start: 10-27-2022 Telephone encounter Shaun Valentine [facility] Start: 10-27-2022 End: 10-28-[address] SHAUN VALENTINE [facility] Other Start: 10-27-2022 End: 10-28-2022 Encounter for general adult medical examination without abnormal findings DR SHAUN VALENTINE Facility:[facility] Start: 10-10-2022 End: 10-10-2022 ambulatory Shaun Valentine Other [facility] Other Start: 10-10-2022 Encounter for genera l adult medical examination without abnormal findings Shaun Valentine [facility] Start: 10-10-2022 Periodic preventive med est patient 18-39 yrs Shaun Valentine [facility] Start: 04-28-2022 End: 04-29-2022 ambulatory Melani Russell MD Work Phone: Hematology/Oncology Comment on above: History of tumor (Pr imary Dx) Start: 04-28-2022 End: 04-29-2022 Patient encounter procedure Melani Russell MD Work Phone: [facility] Start: 04-21-2022 End: 04-21-2022 ambulatory MELANI RUSSELL Facility:[facility] Start: 04-21-2022 End: 04-21-2022 Subsequent hospital visit by physician [facility] (I-Stat/1.5t/3t) Work Phone: MRI Q 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] Start: 11-14-2021 ambulatory Melani Hutchison Work Phone: Hematology/Oncology 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 Start: 10-28-2021 Telephone encounter Melani Acuña rd, MD Work Phone: Hematology/Oncology Comment on above: Care Coordination Start: 09-27-2021 End: 09-27-2021 ambulatory MELANI RUSSELL Facility:[facility] Start: 09-20-2021 End: 09-20-2021 ambulatory MELANI RUSSELL Facility:[facility] Start: 05-07-2021 End: 05-07-2021 ambulatory ALEX URBANO [facility] Start: 05-06-2021 End: 05-06-2021 ambulatory ALEX URBANO [facility] Start: 04-26-2021 End: 04-30-2021 Evaluation and management of inpatient FASALAL POLIAWI [facility] Start: 02-28-2021 End: 02-28-2021 Subsequent hospital visit by physician [facility] (I-Stat/1.5t) Radiology Comment on above: Intra-abdominal and pelvic swelling, mass and lump, unspecified site [R19.00] Procedures Date Procedure Procedure Detail Performing Clinician Start: 04-29-2021 Antibody screen AELX URBANO Comment on above: Performed By: #### T SCR ####[facility] [place], [place] [phone] Start: 04-26-2021 Antibody screen ALEX URBANO Comment on above: Performed By: #### T SCR ####[place] [id number] [place], [place] [phone] Start: 02-28-2021 Mri abdomen w/o & w/contrast material Cortez Carter MD Work Phone: Plan of Treatment Date Care Activity Detail Author Start: 03-20-2023 Covid-19 Vaccine () Covid-19 Vaccine () [facility] Start: 03-20-2023 Influenza vaccination [facility] Start: 10-28-2022 End: 05-29-2023 Mri abdomen w/o & w/contrast material MRI ABDOMEN WO/W IVCON Radiology Routine History of tumor Expected: 10/28/2022, Expires: 05/29/2023 [facility] Work Phone: Comment on above: Expected: 10/28/2022 , Expires: 05/29/2023 Start: 10-28-2022 End: 05-29-2023 Mri pelvis w/o & w/contrast material MRI PELVIS WO/W IVCON Radiology Routine History of tumor Expected: 10/28/2022, Expires: 05/29/2023 [facility] Work Phone: Comment on above: Expected: 10/28/2022 , Expires: 05/29/2023 Start: 10-26-2022 End: 12-26-2022 CBC W Auto Differential panel - Blood ABS GRAN CT + CBC Lab Routine History of tumor Expected: 10/26/2022 (Approximate), Expires: 12/26/2022 [facility] Work Phone: Comment on above: Expected: 10/26/2022 (Approximate), Expires: 12/26/2022 Start: 10-26-2022 End: 12-26-2022 Comprehensive metabolic 2000 panel - Serum or Plasma COMP METABOLIC PANEL Lab Routine History of tumor Expected: 10/26/2022 (Approximate), Expires: 12/26/2022 [facility] Work Phone: Comment on above: Expected: 10/26/2022 (Approximate), Expires: 12/26/2022 Start: 07-20-2022 DEPRESSION ASSESSMENT DEPRESSION ASS ESSMENT [facility] Start: 03-20-2022 Influenza vaccination [facility] Start: 09-12-2021 COVID-19 VACCINE (3 - Booster for Pfizer series) COVID-19 VACCINE (3 - Booster for Pfizer series) [facility] Start: 07-20-2021 DEPRESSION ASSESSMENT DEPRESSION ASS [facility] Start: 06-07-2021 COVID-19 VACCINE (3 - Booster for Pfizer series) COVID-19 VACCINE (3 - Booster for Pfizer series) [facility] Start: 06-07-2021 COVID-19 VACCINE (3 - Pfizer series) COVID-19 VACCINE (3 - Pfizer series) [facility] Start: 03-15-2020 Urine microalbumin profile DTaP,Tdap,Td Vaccine (2 - Tdap) [facility] Start: 2014 HPV TESTING HPV TESTING [facility] Start: 2005 PAP TESTING PAP TESTING [facility] Start: 2003 Urine microalbumin profile DTAP,TDAP,TD (1 - Tdap) [facility] Start: 2002 HEPATITIS C SCREENING HEPATITIS C SC REENING [facility] Start: 2002 HIV SCREENING HIV SCREENING [facility] Start: 1996 Adult depression screening assessment DEPRESSION SCREENING [facility] Start: 1984 HEPATITIS B (1 of 3 - 3-dose series) HEPATITIS B (1 of 3 - 3-dose series) [facility] Start: 1984 Hepatitis B Vaccine (1 of 3 - 3-dose series) Hepatitis B Vaccine (1 of 3 - 3-dose series) [facility] End: 04-21-2022 Mri abdomen w/o & w/contrast material [facility] Work Phone: Comment on above: 1 Occurrences starti ng 04/21/2022 until 04/21/2022 End: 04-21-2022 Mri pelvis w/o & w/contrast material [facility] Work Phone: Comment on above: 1 Occurrences starti ng [facility]/21/2022 until [facility] Immunization Date Immunization Notes Care Provider Fa cility 04-12-2021 COVID-19 Vaccine Pfi zer - Documentation Purposes Only Shaun Valentine Other [facility] Other 03-22-2021 COVID-19 Vaccine Pfi zer - Documentation Purposes Only Shaun Valentine Other [facility] Other 06-09-2019 influenza virus vaccine, unspecified formulation Mri (I-Stat/1.5t) [facility] Payers Date Payer Category Payer Private Health Insurance [employer] A ETNA CHOICE POS II [id number] 2015-Present [phone] [address] [place] [address] POS [id number] 2015 Private Health Insurance [id number] 1984 Unknown [id number] 1984 Unknown [id number] .9 1984 Unknown [id number] .9 1984 Unknown [id number] .9 1984 Unknown [id number] .9 1984 Unknown [id number] .[id number] 1984 Unknown [id number] .9 1984 Unknown [id number] .1259 1984 Unknown [id number] [id number] .9 1984 Unknown [id number] .1259 1959 Private Health Insurance [id number] Private Health Insurance [id number] Social History Date Type Detail Facility Start: [facility] Start: 02-14-2021 Tobacco use and exposure Smoke less tobacco non-user [facility] Start: 1985 Sex Assigned At Female C [facility] Start: 01-15-2021 End: 04-28-2022 Exposure to SARS-CoV-2 (event) Not sure [facility] Start: 02-14-2021 End: 05-07-2021 Sex Assigned At [facility] Start: 02-14-2021 End: 05-07-2021 History of Social function [facility] Adult Depression Screening Assessment 0 [facility] Start: 02-26-2021 Gender identity Identifies as female gender (finding) [facility] Start: 03-27-2021 Sexual orientation Heterosexual (fin ding) [facility] Clinical Notes 02-28-2021 to 10-10-2022 Note Date & Type Note Facility 10-10-2022 Evaluation note Encounter Date Diagnosis Assessment Notes Sep, Wellness examination (ICD-10 - Z00.00) Sep, Hair thinning (ICD-10 - L65.9) Check H/H and TSH Not scarring [facility] Other 10-11-2022 History of Present illness Narrative* [...] Hematology and Medical Oncology documented in [facility] Nurse Note* Aliya Jean Baptiste RN - 04/28/2022 3:43 PM EDT Additional intake questions: Has the patient had fever, nausea, vomiting, diarrhea, constipation, fatigue for > 1 week? No Does the patient have a decreased appetite? No Does patient want to see a Security Alarm Technician? No (yes to any of above refer patient to schedulers for dietitian appointment) ) Does patient have any new or increased numbness or tingling of extremities? No Is patient interested in fertility information? No Does patient need any prescription refills? No Does patient have an advanced directive in place? No, Patient referred to [facility] Electronically Signed By: Aliya Jean Baptiste RN documented in this encounterWay[facility]10-03-2022 NoteHNO ID: [id number] Author: Erin Garcia RN Service: ? Author [...] Pineda DATE: April 21, 2022 TIME: 5:35 [facility]10-03-2022 NoteHNO ID: [id number] Author: RT Toby(R) Service: Radiology Author Type: [...] BY: RT Toby(R) April 21, 2022 6:08 [facility]10-03-2022 History of Present illness Narrative* Erin [...] 21, 2022 6:08 PM documented in this encounterWay[facility]04-13-2022 Miscellaneous Notes* Telephone Encounter - Brittany Avendaño [facility] - 10/30/2021 3:24 PM EDT Patient calling stating she has not received a call back, Please call @ [phone] * Telephone Encounter - Brittany Avendaño [facility] - 10/28/2021 10:02 AM EDT Oscar Pineda is calling Melani Russell MD today regarding Care Coordination,calling with questions about with her condition. Patient has been identified by name and birthdate. Duration of symptoms: N/A Requesting response back: call on cell [phone] (home) [phone] (cell) Brittany Avendaño [facility] October 28, 2021 documented in this encounterWay[facility]03-11-2022 NoteHNO ID: [id number] Author: Melani Russell MD Service: ? Author Type: Physician Type: Progress Notes Filed: 10/07/2021 12:24 PM Note Text: [facility] ESTABLISHED PATIENT VISIT PATIENT NAME: Oscar [...] Melani Pérez MD Internal Medicine Resident, PGY-1 [facility] 09/27/2021 SOLID TUMOR STAFF: ATTENDING [...] and Medical OncologySelect [facility] Note HNO ID: [id number] Author: Shannan Ansari, RT(R) Service: Radiology Author [...] BY: RT Eduardo(R) September 20, 2021 4:17 [facility]03-04-2022 NoteHNO ID: [id number] Author: Ronda Arora Service: ? Author Type: [...] Pineda DATE: September 20, 2021 TIME: 3:22 [facility]10-18-2021 NoteHNO ID: [id number] Author: LANETTE De Leon Service: ? Author Type: Genetic Counselor Type: Progress Notes Filed: 05/24/2021 11:18 AM Note Text: [facility] Consultation Note Genetic Counselor: Melida Quintero MS, [facility] Patient: Oscar Pineda Patient Name and confirmed at initiation of visit Visit was done virtually via Zoom Portions of the visit were done by genetic counseling information technology intern Suzanna Fishman under my supervision HIGH [...] unknown descent and paternal ancestors are of Cuban and Taiwanese descent. There is no Ashkenazi Uatsdin ancestry. The patient had limited information about [...] content not included)...[facility]10-12-2021 NoteHNO ID: [id number] Author: Katty Logan APRN.NGUYEN Service: Critical Care [...] the A/P section below. Please refer to [facility] for list of inpatient medications. VITAL SIGNS: [...] content not included)...[facility]10-11-2021 NoteHNO ID: [id number] Author: Kayce Wagner MD Service: Radiology Author [...] is safe for her to go home. aKyce Wagner MD [phone] [facility]10-11-2021 NoteHNO ID: [id number] Author: Marva Stiles APRN.NGUYEN Service: Critical Care [...] Completed decadron -> transitioned to medrol. Consulted [facility] for transfer of service. Addendum @ 1115: pt to remain in SICU, [facility] does not feel comfortable accepting pt given supplemental O2 needs and < 24 hrs since extubation. Objective MEDICATIONS: Current medications and allergies reviewed. Recommended/planned medication changes discussed in detail in the A/P section below. Please refer to [facility] for list of inpatient medications. VITAL SIGNS: [...] Patient Clinically Ready to Transfer to [facility] or [facility]?: Yes, transfer to [facility] or [facility] today Discharge Planning: Home Prevention: Line Status: [...] issues, SpO2 > 92% - Transfer to [facility] or home tomorrow Pulmonary Acute respiratory insufficiency Intubated in IR (cryoablation of desmoid tumor), transferred to SICU intubated and on 100% FiO2 (more content not included)...[facility]10-11-2021 NoteHNO ID: [id number] Author: Jose M Cedillo MD Service: Interventional [...] who presented for cryoablation on 04/26 with [facility] radiology. Pt suffered iatrogenic air embolism to [...] AM PAGER/CONTACT #:[facility]10-10-2021 NoteHNO ID: [id number] Author: Sara Guzman APRN.WAREHOUSE PULLER Service: Critical Care Author Type: Nurse Practitioner [...] the A/P section below. Please refer to [facility] for list of inpatient medications. VITAL SIGNS: [...] Patient Clinically Ready to Transfer to [facility] or [facility]?: No Discharge Planning: To be [...] content not included)...[facility]10-10-2021 NoteHNO ID: [id number] Author: Jose M Cedillo MD Service: Interventional [...] who presented for cryoablation on 04/26 with [facility] radiology. Pt suffered iatrogenic air embolism to [...] AM PAGER/CONTACT #:[facility]10-09-2021 NoteHNO ID: [id number] Author: RT Agus(R) Service: Radiology Author Type: [...] RD, RVT, Wallace April 27, 2021 12:23 [facility]10-09-2021 History of Past illness Narrative* Problem [...] of this encounter (statuses as of 11/01/2021) [facility]10-09-[facility]21 History of Past illness Narrative* Problem [...] of this encounter (statuses as of 11/19/2021) [facility]10-09-2021 History of Past illness Narrative* Problem [...] of this encounter (statuses as of 04/22/2022) [facility]10-09-2021 History of Past illness Narrative* Problem [...] of this encounter (statuses as of 04/29/2022) [facility]10-09-2021 History of Past illness Narrative* Problem [...] of this encounter (statuses as of 02/25/2023) [facility]10-09-2021 NoteHNO ID: [id number] Author: Anila Wise APRN.CNP Service: Critical Care [...] Patient Clinically Ready to Transfer to [facility] or [facility]?: No Discharge Planning: To be [...] content not included)...[facility]10-09-2021 NoteHNO ID: [id number] Author: Jose M Cedillo MD Service: Interventional [...] the hepatic veinsSelect Medical [facility] 04-27-2021 NoteHNO ID: [id number] Author: Interface Note Service: ? Author Type: ? Type: Progress Notes Filed: 04/27/2021 2:51 AM Note Text: Epic Scheduled Downtime: 04/27/2021 1:00:00 AM to 04/27/2021 2:33:00 [facility]10-08-2021 NoteHNO ID: [id number] Author: Marva Stiles APRN.CNP Service: Critical Care [...] the A/P section below. Please refer to [facility] for list of inpatient medications. VITAL [...] Patient Clinically Ready to Transfer to [facility] or SDU?: No Discharge Planning: To be [...] content not included)...[facility]10-08-2021 NoteHNO ID: [id number] Author: Galdino Gaona DO Service: Critical Care Author Type: Fellow Type: Procedures Filed: 04/26/2021 4:34 PM Note Text: BEDSIDE PROCEDURE NOTE CENTRAL LINE INSERTION Date/Start Time: 04/26/2021 4:33 PM Performed by: Galdino Gaona DO Authorized by: Polly Reyna MD Informed Consent Consent Obtained: Written Dickens Protocol A moment to CARE was completed. [...] was applied following the usual aseptic technique. [facility] Central Line Insertion Checklist, attached to [...] Pineda DATE: April 26, 2021 TIME: 4:32 [facility]10-08-2021 NoteHNO ID: [id number] Author: Polly Reyna MD Service: Critical Care [...] Time: [facility] NoteHNO ID: [id number] Author: ELE Rodriguez Service: Radiology Author Type: Clinical Stacker Driver Type: Progress Notes Filed: 04/26/2021 1:47 PM [...] ELE Rodriguez [facility] 26, 2021 [facility] of Present illness Narrative* Altagracia Langford [...] 28, 2021 12:12 PM [facility] 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 Intra-abdominal and pelvic swelling, mass and lump, unspecified site Abdominal mass, unspecified abdominal location documented in this encounter [facility]* Diagnosis History of tumor- Primary Personal history of other specified diseases documented in this [facility]No [facility] [employer] Other History general Narrative - Reported* Type Description Date Medical History Fatigue Medical History Gall bladder polyp Medical History Atopic dermatitis, mild Medical History DESMOID FIBROMATOSIS Surgical History C section x 3 Surgical History wisdom teeth Surgical History RIGHT ABDOMINAL WALL MASS Hospitalization History see above [facility] [employer] Other Advance Directives No Advanced Directives Records FoundDocuments on File Type Date Recorded Patient Criminal Psychologist Expl anation Advance Directive(s) 04/10/2021 12:55 PM Advance Directive(s) 03/07/2021 6:15 PM Reason for Referral Specialty Diagnoses / Procedures Referred By Katie t Referred To Contact MR IMAGING Diagnoses Desmoid Abdominal mass, unspecified abdominal location Procedures MRI PELVIS WO/W IVCON MRI PELVIS W/O & W/CONTRAST MATERIAL Melani Russell MD [address] [place], [place] [id number] Mr Imaging Referral ID Status Reason Start Date Expiration Date V isits Requested Visits Authorized [id number] Closed Auto-Generate d Referral 03/30/2022 10/27/2022 1 1 Specialty Diagnoses / Procedures Referred By Jannaac t Referred To Contact MR IMAGING Diagnoses Desmoid Intra-abdominal and pelvic swelling, mass and lump, unspecified site Procedures MRI ABDOMEN WO/W IVCON MRI ABDOMEN W/O & W/CONTRAST MATERIAL Melani Russell MD [address] [place], [place] [id number] Mr Imaging Referral ID Status Reason Start Date Expiration Date V isits Requested Visits Authorized [id number] Closed Auto-Generate d Referral 03/30/2022 10/27/2022 1 1 Specialty Diagnoses / Procedures Referred By Jannaac t Referred To Contact MR IMAGING Diagnoses History of tumor Procedures MRI PELVIS WO/W IVCON MRI PELVIS W/O & [place] [address] [place] [address] Mr Imaging Referral ID Status Reason Start Date Expiration Date Visits Requested Visits Authorized [id number] Pending Review Auto-Generat ed Referral 10/28/2022 05/29/2023 1 1 Specialty Diagnoses / Procedures Referred By Contac kartik Referred To Contact MR IMAGING Diagnoses History of tumor Procedures MRI ABDOMEN WO/W IVCON MRI ABDOMEN W/O & [place] [address] [place] [address] Mr Imaging Referral ID Status Reason Start Date Expiration Date Visits Requested Visits Authorized [id number] Pending Review Auto-Generat ed Referral 10/28/2022 05/29/2023 [...] or prosecute any alcohol or drug abuse patient.[facility] the event this information is protected by the Federal Confidentiality of Alcohol and Drug Abuse Patient Records regulations: The Federal rules restrict any use of the information to criminally investigate or prosecute any alcohol or drug abuse patient.[facility] the event this information is protected by the Federal Confidentiality of Alcohol and Drug Abuse Patient Records regulations: The Federal rules restrict any use of the information to criminally investigate or prosecute any alcohol or drug abuse patient.[facility] the event this information is protected by the Federal Confidentiality of Alcohol and Drug Abuse Patient Records regulations: The Federal rules restrict any use of the information to criminally investigate or prosecute any alcohol or drug abuse patient.[facility] the event this information is protected by the Federal Confidentiality of Alcohol and Drug Abuse Patient Records regulations: The Federal rules restrict any use of the information to criminally investigate or prosecute any alcohol or drug abuse patient.[facility] the event this information is protected by the Federal Confidentiality of Alcohol and Drug Abuse Patient Records regulations: The Federal rules restrict any use of the information to criminally investigate or prosecute any alcohol or drug abuse patient.[facility] Reason for Visit (unrecogniz ed section and content) Reason Comments Care Coordination Reason Comments Radiology MRI Specialty Diagnoses / Procedures Referred By Contac t Referred To Contact MR IMAGING Diagnoses Desmoid Intra-abdominal and pelvic swelling, mass and lump, unspecified site Procedures MRI ABDOMEN WO/W IVCON MRI ABDOMEN W/O & [place] [address] [place] [id number] Mr Imaging Referral ID Status Reason Start Date Expiration Date V isits Requested Visits Authorized [id number] Closed Auto-Generate d Referral 03/30/2022 10/27/2022 1 1 Reason Comments Established Patient Reason Comments Radiology MRI Specialty Diagnoses / Procedures Referred By Contac t Referred To Contact MR IMAGING Diagnoses Intra-abdominal and pelvic swelling, mass and lump, unspecified site Procedures MRI ABDOMEN WO/W IVCON MRI,ABDOMEN,W&WO Cortez Dubois MD [address] [place] [address] [place] [address] Referral ID Status Reason Start Date Expiration Date V isits Requested Visits Authorized [id number] Closed Auto-Generate d Referral 02/14/2021 03/16/2022 1 1 Care Teams (unrecognized sec tion and content) Saxophone Assembler Relationship Specialty [place] [address] [place] [id number] Physician Hematology/Oncology 05/20/21 Chey Tamayo, JOSE [address] [place], [place] [phone] Specialty Spout Liner Oncology 05/20/21 Saxophone Assembler Relationship Specialty Start Date End Date Melani Russell [place] [id number] [place], [place] [phone] Physician Hematology/Oncology 05/20/21 Claritza Tamayo RN [address] [place] [address] Specialty Spout Liner Oncology 05/20/21 Saxophone Assembler Relationship Specialty Start Date End Date Melani Russell MD [address] [place] [address] Physician Hematology/Oncology 05/20/21 Claritza Tamayo RN [address] [place] [address] Specialty Spout Liner Oncology 05/20/21 Saxophone Assembler Relationship Specialty Start Date End Date Melani Russell MD [address] [place] [address] Physician Hematology/Oncology 05/20/21 Claritza Tamayo RN [address] [place] [address] Specialty Spout Liner Oncology 05/20/21 Saxophone Assembler Relationship Specialty Start Date End Date Melani Russell MD [address] [place] [address] Physician Hematology/Oncology 05/20/21 Suzanna Chaidez RN [address] [place] [address] Specialty Spout Liner Hematology/Oncology 06/10/22 INFORMATION SOURCE (unrecogn ized section and content) DATE CREATED AUTHOR 04/23/2022 [facility] DATE CREATED AUTHOR AUTHOR'S ORGANIZ ATION 11/02/2022 [facility] DATE CREATED AUTHOR AUTHOR'S ORGANIZ ATION 10/06/2023 [facility] EPIC FOR RECORDS PERTAINING TO [...] BE BASED ON THE PRIMARY CLINICAL RECORDS. [facility] [employer] [facility]. provides no warranty or guarantee of the accuracy or completeness of information in this document.
[2023-10-23 23:21] VITALS: O2SAT 100
--- NOTE | 2023-10-23 23:43 | ED_ITS ---
HPI HPI - General Adult General Chief complaint: Allergic Reaction Stated complaint: allergic reaction Time Seen by Provider: 10/23/23 23:08 Source: patient Mode of arrival: walk-in Limitations: no limitations History of Present Illness HPI narrative: Patient presents with spreading redness and itchiness around her csection incision site. She previously had allergic reaction to tape but not to steri strips. She had csection one week ago and steristrips were applied. a few days ago she developed redness along the incision site and some itchiness. She saw the pa yesterday and a few of the steristrips were removed. Plan was to come back in a few days and have the rest removed. No she has increased redness and there are hive changes to the skin including down into the suprapubic area and mons pubis. Related Data Home Medications ?Medication ?Instructions ?Recorded ?Confirmed vitamin with calcium 1 tab PO Q24H 10/16/23 10/23/23 no.72-iron 27 mg-folic acid 1 mg tablet ( Vitamins Plus Low Iron) Previous Rx's ?Medication ?Instructions ?Recorded ibuprofen 800 mg tablet 800 mg PO Q8H PRN pain 14 days #40 10/18/23 tabs Allergies Allergy/AdvReac Type Severity Reaction Status Date / Time adhesive tape Allergy Blister Verified 10/23/23 23:13 codeine AdvReac GI Verified 10/23/23 23:13 intolerance Opioid HPI Opioid Management Most Recent Opioid Data: Last Pain Scale 3 10/18/23 08:12 Last Pain Assessment 10/18/23 08:00 Last ED Pain Assessment 10/23/23 23:19 Ur Phencyclidine Scrn Negative (NEGATIVE) 10/16/23 06:20 PFSH PFSH Family History (Updated 10/16/23 @ 06:00 by Lewis Frances) Grandmother Family history of myocardial infarction Family history of COPD (chronic obstructive pulmonary disease) Grandfather Family history of cancer Family history of CHF (congestive heart failure) Sister Family history of diabetes mellitus Father Family history of hypertension Social History (Updated 10/16/23 @ 06:03 by Lewis Frances) Within the past year, how often did you have a drink containing alcohol: never Score interpretation: A score less than 3 is consistent with normal alcohol consumption. 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 Highest level of school completed/degree received: Associate degree: occupational, technical, vocational program Are you now , , , , never or living with a partner: In a typical week, how many times do you talk on the telephone with family, friends, or neighbors: 3 or more times per week How often do you get together with friends or relatives: 3 or more times per week How often do you attend judaism or rastafarian services: 1-3 times per year Little interest or pleasure in doing things: not at all Feeling down, depressed, or hopeless: not at all Feel stressed/tense/nervous/anxious/difficulty sleeping: not at all Do you think of yourself as: straight/heterosexual Gender Identity: female Exam Narrative Exam Narrative: Nurses notes and vital signs reviewed and patient is not hypoxic. afebrile General: Well-appearing and in no apparent distress. Skin: Warm, dry, no pallor noted. Along the csection incision and extending slightly into the lower abdomenand down into the mons pubis, there is urticaria with confluent erythema and several patches of urticaria. The csection incision is without dehiscence or drainage. Area is itchy and not painful. Eye: Pupils are equal, round and EOMI. No scleral icterus. Cardiovascular: Regular Rate and Rhythm without murmur, gallop or rub. Respiratory: No accessory muscle use or respiratory distress. Lungs are clear to auscultation, no wheezing, rales or rhonchi GI: Abdomen is soft, non-distended. Normal bowel sounds. No masses appreciated. No tenderness to palpation. No rebound, guarding, or rigidity noted. Neurological: A&O x4. No cranial nerve dysfunction observed. No truncal ataxia. Moves all extremities. Sensation intact. Psychiatric: Cooperative and interactive. Normal mood and affect. Constitutional Vital Signs, click to edit/add: Last Vital Signs Temp 97.9 F 10/23/23 23:09 Pulse 60 10/23/23 23:09 Resp 18 10/23/23 23:09 BP 145/88 H 10/23/23 23:09 Pulse Ox 100 10/23/23 23:21 O2 Del Method Room Air 10/23/23 23:21 Course Vital Signs Vital signs: Vital Signs Temperature 97.9 F 10/23/23 23:09 Pulse Rate 60 04/05/24 23:09 Respiratory Rate 18 10/23/23 23:09 Blood Pressure 145/88 H 10/23/23 23:09 Pulse Oximetry 99 10/23/23 23:09 Oxygen Delivery Method Room Air 10/23/23 23:09 Temperature 97.9 F 10/23/23 23:09 Pulse Rate 60 10/23/23 23:09 Respiratory Rate 18 10/23/23 23:09 Blood Pressure 145/88 H 10/23/23 23:09 Pulse Oximetry 100 10/23/23 23:21 Oxygen Delivery Method Room Air 10/23/23 23:21 Medical Decision Making MDM Narrative Medical decision making narrative: ED nurse removed the steristrips - using a mix of peroxide and water to soften the adhesive on the fours strips that did not easily come off. Patient agreed to pump and dump and so was given benadryl and solumedrol in the ED before discharge. prescribed prednisone and instructed to take otc benadryl. She will see dr to in the office for follow up. Discharge Plan Discharge Stand Alone Forms: Portal Instructions Chief Complaint: Allergic Reaction Clinical Impression: Urticaria, Allergic reaction Patient Disposition: Home, Self-Care Time of Disposition Decision: 23:51 Prescriptions / Home Meds: No Action Vitamin Plus Low Iron 27 mg iron- 1 mg tablet 1 tab PO Q24H ibuprofen 800 mg tablet 800 mg PO Q8H PRN (Reason: pain) 14 Days Qty: 40 0RF Print Language: Latvian Instructions: Urticaria (ED) Referrals: Shaun Parks DO [Primary Care Provider] - 1 week
--- NOTE | 2023-10-23 23:56 | PC.NURSE ---
steri strips removed pt tolerated well incision is closed and looks well approximated
[2023-10-24] MEDS: DIPHENHYDRAMINE HCL 25 MG CAPSULE PO (00:02)
[2023-10-24] MEDS: METHYLPREDNISOLONE SOD SUCC PF 125 MG/2 ML VIAL IM (00:02)
== END 2023-10-24 00:08 | disposition home or self-care (01) ==
PROVIDERS: Emergency Provider Emergency Medicine; PCP Internal Medicine
DX: O90.89 Other complications of the puerperium, not elsewhere classified (principal); L50.0 Allergic urticaria
CPT/HCPCS: 96372; 99284; J2919